=== PATIENT | male | born 1955 | race Two or more races ===

== ENCOUNTER → 2016-05-05 | Outpatient (CLI) | payer MEDICARE, OTHER ==
[2016-05-05 13:38] LABS: Blood Urea Nitrogen 19 mg/dL (9-20); Non-African American GFR(MDRD) >60 (>60 ml/min/1.73 sqM)
--- NOTE | 2016-05-05 14:33 | MR ---
EXAMINATION TYPE: MR lumbar spine wo/w con DATE OF EXAM: 05/05/2016 2:09 PM COMPARISON: MRI lumbar spine January 31, 2012. CT lumbar spine December 27, 2015 HISTORY: Low back pain, prior surgeries TECHNIQUE: Multiplanar, multisequence images of the lumbar spine is performed without and with IV contrast, util izing 15 mL intravenous MultiHance FINDINGS: Exam is suboptimal as is significantly degraded by patient motion. Sagittal images of the l umbar spine show vertebral body heights and alignment to remain satisfactory. Multilevel disc desicca tion and disc space narrowing is present fairly moderate to advanced throughout the lumbar spine with relative sparing or only moderate joint space loss L3-L4 level redemonstrated. No large posterior d isc herniations are seen on sagittal images. There is evidence of prior surgery with scar tissue and posterior spinous process resection the mid to lower lumbar spine redemonstrated. The conus medullari s is normal in position and signal ending at inferior L1 vertebral body level. The bone marrow signa l intensity is overall heterogeneous in appearance. Some scattered small Schmorl nodes are redemonstr ated. No suspicious postcontrast enhancement is seen. Axial images at T12-L1 level redemonstrated mild to moderate facet degenerative changes and ligamentu m flavum hypertrophy, spinal canal is preserved, bilateral neural foramina are patent. Axial images at L1-L2 level show spinous process resection. There is mild facet arthropathy and spino us process hypertrophy. Spinal canal is preserved and bilateral neural foramina are patent. Axial images at L2-L3 level show bilateral laminectomy defects and spinous process resection. There i s moderate facet arthropathy bilaterally. Spinal canal is preserved. Bilateral neural foramina are pa tent. Axial images at L3-L4 level show bilateral laminectomy defects and spinous process resection. There i s moderate to severe bilateral facet arthropathy. Some enhancing scar tissue is present. Spinal canal is fairly well preserved. Bilateral neural foramina are felt patent. Axial images at the L4-L5 level show moderate facet arthropathy bilaterally. There is bilateral lewis ectomy defects and spinous process resection. Some enhancing scar tissue seen but spinal canal is maisha ssly preserved. Bilateral neural foramina particularly on the right are likely narrowed seen best sag ittal image 10 without significant change from prior study. Axial images at L5-S1 level show bilateral laminectomy defects and spinous process resection. There i s moderate facet arthropathy present bilaterally. There is broad-based disc protrusion. Spinal canal is fairly well preserved. Bilateral neural foraminal narrowing is likely present. IMPRESSION: Suboptimal study with significant motion degradation. There is extensive postsurgical ch keila in the posterior mid to lower lumbar spine. Alignment is satisfactory and stable. Some multileve l degenerative changes are seen as detailed above. Most prominent findings are redemonstrated in the lower lumbar spine.
== END | disposition home or self-care (01) ==
LOC: RADMRIMAIN 12:27
PROVIDERS: ATTEND Psychiatry & Neurology Neurology
DX: M47.816 Spondylosis without myelopathy or radiculopathy, lumbar region (principal); M47.815 Spondylosis without myelopathy or radiculopathy, thoracolumbar region; Z98.890 Other specified postprocedural states
CPT/HCPCS: 82565; 84520; 72158; A9577

== ENCOUNTER → 2017-01-17 | Outpatient (CLI) | payer MEDICARE, OTHER ==
--- NOTE | 2017-01-17 08:03 | MR ---
EXAMINATION TYPE: MR thoracic spine wo miriam , DATE OF EXAM ORDERED: 01/17/2017 HISTORY: M48.04 Spinal stenosis, thoracic region. COMPARISON: None. FINDINGS: Paraspinal soft tissues are normal. Vertebral body height and alignment are maintained. Cord signal is normal. There is disc space loss from T5-6 through T8-9. There is mild hypertrophic spondylosis anteriorly. T here is mild spondylosis deformans. There is a right paracentral disc displacement at T3-4 deforming the thecal sac without cord contact. There is a diffuse disc displacement at T10-11 there is no definite discal protrusion. There is mild , diffuse intervertebral foraminal narrowing. This is likely congenital. There is facet arthropathy p resent at the T12-L1 level. IMPRESSION: 1. DEGENERATIVE DISC DISEASE EXTENDING FROM T5-6 THROUGH T8-9. 2. MILD, DIFFUSE HYPERTROPHIC SPONDYLOSIS AND SPONDYLOSIS DEFORMANS. 3. MILD, RIGHT PARACENTRAL DISC DISPLACEMENT T10-11. 4. NO DEFINITE DISCAL PROTRUSION OR SPINAL STENOSIS. 3. DIFFUSE, CONGENITAL INTERVERTEBRAL FORAMINAL NARROWING.
== END | disposition home or self-care (01) ==
LOC: RADMRIMAIN 06:56
PROVIDERS: ATTEND Physician Assistant Medical
DX: M99.72 Connective tissue and disc stenosis of intervertebral foramina of thoracic region (principal); M51.24 Other intervertebral disc displacement, thoracic region; M51.34 Other intervertebral disc degeneration, thoracic region; M47.814 Spondylosis without myelopathy or radiculopathy, thoracic region
CPT/HCPCS: 72146

== ENCOUNTER → 2017-02-03 | Outpatient (CLI) | payer MEDICARE, OTHER ==
--- NOTE | 2017-02-03 15:32 | US ---
EXAMINATION TYPE: US carotid duplex BILAT DATE OF EXAM: 02/03/2017 COMPARISON: NONE CLINICAL HISTORY: 61-year-old male [id number] Syncope. TECHNIQUE: Carotid duplex ultrasound examination. Indirect Doppler criteria was utilized. FINDINGS: Worley scale images show mild atherosclerotic changes at the right greater than left bifurcations. EXAM MEASUREMENTS: RIGHT: Peak Systolic Velocity (PSV) cm/sec ----- Right CCA: 64.9 ----- Right ICA: 69.3 ----- Right ECA: 76.8 ICA/CCA ratio: 1.1 RIGHT: End Diastole cm/sec ----- Right CCA: 25.9 ----- Right ICA: 29.1 ----- Right ECA: 76.5 LEFT: Peak Systolic Velocity (PSV) cm/sec ----- Left CCA: 63.3 ----- Left ICA: 66.0 ----- Left ECA: 86.2 ICA/CCA ratio: 1.0 LEFT: End Diastole cm/sec ----- Left CCA: 20.6 ----- Left ICA: 21.5 ----- Left ECA: 0.0 VERTEBRALS (direction of flow): Right Vertebral: Antegrade Left Vertebral: Antegrade Rhythm: Normal IMPRESSION: No hemodynamically significant stenosis appreciated in either internal carotid artery. Criteria for Assigning % of Stenosis / Diameter reduction (Estimation based on the indirect measurements of the internal carotid artery velocities (ICA PSV). 1. Normal (no stenosis)=ICA PSV < 125 cm/s: ratio < 2.0: ICA EDV<40 cm/s. 2. Less than 50% stenosis=ICA PSV < 125 cm/s: ratio < 2.0: ICA EDV<40 cm/s. 3. 50 to 69% stenosis=ICA PSV of 125 to 230 cm/s: ration 2.0 ? 4.0: ICA EDV 40-100 cm/s. 4. Greater than 70% stenosis to near occlusion= ICA PSV > 230 cm/s: ratio > 4.0: ICA EDV > 100 cm/s. 5. Near occlusion= ICA PSV velocities may be low or undetectable: variable ratio and ICA EDV. 6. Total occlusion=unable to detect flow.
== END | disposition home or self-care (01) ==
LOC: RADUSWWP 13:02
PROVIDERS: ATTEND Internal Medicine
DX: R42 Dizziness and giddiness (principal); I25.10 Atherosclerotic heart disease of native coronary artery without angina pectoris
CPT/HCPCS: 93880

== ENCOUNTER → 2017-08-15 | Outpatient (CLI) | payer MEDICARE, OTHER ==
[2017-08-15 12:36] LABS: Blood Urea Nitrogen 16 mg/dL (9-20)
--- NOTE | 2017-08-15 13:25 | XR ---
Thoracic spine HISTORY: Back pain 3 views of the thoracic spine correlated to thoracic MRI dated 01/17/2017. Sclerotic density is present at the approximate T5 and T6 vertebral bodies, signal changes are presen t at this level on prior MRI. Multilevel spondylosis is present. Endplate deformities are again noted at these levels. There is a mild spinal curvature. IMPRESSION: Thoracic spondylosis. Sclerotic density at the midthoracic spine is indeterminate, consid er follow-up thoracic MRI, correlate to exclude infection. A Yellow level critical message alert has been initiated for Dexter Ji via the [email or web address] Critical Results System on 08/15/2017 1:22 PM. This message alert has been sent to Dexter Ji via the preferences provided by the clinician for the receipt of Radiology Critical Findings. Message ID [id number].
--- NOTE | 2017-08-15 13:42 | XR ---
EXAMINATION TYPE: XR chest 2V DATE OF EXAM: 08/15/2017 COMPARISON: Prior chest 06/21/2015 HISTORY: Hypertension TECHNIQUE: Frontal and lateral views of the chest are obtained. FINDINGS: There is no focal air space opacity, pleural effusion, or pneumothorax seen. The cardiac silhouette size is within normal limits. Thoracic spine shows a stable appearance. There is multileve l spondylosis, see dictated report thoracic spine same date. IMPRESSION: No acute cardiopulmonary process. Some sclerotic density present in the midthoracic spin e. Consider MRI.
--- NOTE | 2017-08-15 18:20 | MR ---
EXAMINATION TYPE: MR lumbar spine wo con DATE OF EXAM: 08/15/2017 COMPARISON: Previous lumbar MRI 05/05/2016 HISTORY: Previous surgery, low back pain Gadavist 7.5 TECHNIQUE: Multiplanar, multisequence images of the lumbar spine were acquired. Exam was aborted due to patient' s inability to cooperate with completion of the exam. Sagittal images obtained show similar findings with multilevel spondylosis, loss of disc height and s ignal at the intervertebral levels with endplate discogenic marrow signal change, multilevel vacuum p henomenon and Schmorl's node formation at the endplates. The conus is normal and stable. Foraminal en croachment again noted and stable. No sizable disc herniation on the sagittal images. Multilevel face t arthropathy changes are present. Lumbar segments are intact. No paraspinal masses are identified. Conus medullaris has a normal appe arance. Postop changes again noted posteriorly, multilevel laminectomies. IMPRESSION: Suspect the findings are stable compared to prior exam although only sagittal images performed. Hyper trophic facet arthropathy, multilevel foraminal encroachment. No sizable disc herniation or central c anal stenosis is evident.
== END | disposition home or self-care (01) ==
LOC: RADMRIMAIN 11:54
PROVIDERS: ATTEND Physical Medicine & Rehabilitation
DX: M47.814 Spondylosis without myelopathy or radiculopathy, thoracic region (principal); M46.86 Other specified inflammatory spondylopathies, lumbar region; R93.7 Abnormal findings on diagnostic imaging of other parts of musculoskeletal system; I10 Essential (primary) hypertension; Z78.9 Other specified health status
CPT/HCPCS: 71046; 72072; 72148; 82565; 84520

== ENCOUNTER 2017-10-03 09:00 | Inpatient (IN) | payer MEDICARE, OTHER ==
--- NOTE | 2017-10-03 09:16 | ED ---
General Adult HPI - General Source: patient, RN notes reviewed Mode of arrival: wheelchair Limitations: no limitations <Serge Mares - Last Filed: 10/03/17 11:25> <Dionicio Barker - Last Filed: 10/03/17 12:57> - General Chief complaint: Skin/Abscess/Foreign Body Stated complaint: Abscess Time Seen by Provider: 10/03/17 09:07 - History of Present Illness Initial comments: This is a 62-year-old male presents emergency Department chief complaint right sided scrotal abscess. Patient states it started 1 week ago and has progressively getting worse and more painful. Patient states that he's had prior abscesses and has axilla and groin region but never of his scrotum. Patient states that it's come so unbearable that he cannot sit. Patient states that his been no drainage denies any dysuria hematuria. Patient denies any fever, chills, abdominal pain. (Serge Mares) - Related Data Home Medications Medication Instructions Recorded Confirmed oxyCODONE ER [OxyCONTIN] 80 mg PO BID@03/26/14 10/03/17 Lisinopril-Hctz 20-25 mg 1 tab PO DAILY 03/20/15 10/03/17 [Zestoretic 20-25] glipiZIDE [Glipizide] 5 mg PO BID 03/20/15 10/03/17 Atorvastatin [Lipitor] 40 mg PO DAILY 10/03/17 10/03/17 DULoxetine HCL [Cymbalta] 30 mg PO DAILY 10/03/17 10/03/17 Ergocalciferol (Vitamin D2) 50,000 unit PO Q7D 10/03/17 10/03/17 [Vitamin D2] Mupirocin 2% Oint [Bactroban 2% 1 applic TOPICAL BID 10/03/17 10/03/17 Oint] Sulfamethox-Tmp 800-160Mg [Bactrim 1 tab PO BID 10/03/17 10/03/17 DS 800-160 mg] cloNIDine HCL [Catapres] 0.1 mg PO BID 10/03/17 10/03/17 oxyCODONE HCL 40 mg PO HS@0200 10/03/17 10/03/17 Previous Rx's Medication Instructions Recorded Aspirin EC [Ecotrin Low Dose] 81 mg PO DAILY #1 tablet. 04/04/14 amLODIPine [Norvasc] 10 mg PO DAILY #30 tab 04/04/14 metFORMIN HCL [Glucophage] 500 mg PO BID #60 tab 04/05/14 Metoprolol Tartrate [Lopressor] 50 mg PO BID #60 tab 03/21/15 Allergies Allergy/AdvReac Type Severity Reaction Status Date / Time No Known Allergies Allergy Verified 10/03/17 11:34 Review of Systems ROS Other: All systems not noted in ROS Statement are negative. <Serge Mares - Last Filed: 10/03/17 11:25> ROS Other: All systems not noted in ROS Statement are negative. <Dionicio Barker - Last Filed: 10/03/17 12:57> ROS Statement: Those systems with pertinent positive or pertinent negative responses have been documented in the HPI. 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 CARDIAC STENTS History of Any Multi-Drug Resistant Organisms: None Reported Past Surgical History: Back Surgery, Heart Catheterization With Stent Additional Past Surgical History / Comment(s): ankle surgery-pt believes it was his R ankle. pt states he has a total of 5 stents Past Anesthesia/Blood Transfusion Reactions: No Reported Reaction Additional Past Anesthesia/Blood Transfusion Reaction / Comment(s): recieved blood after severe nose bleed, needed to be cauterized after recieving too much aspirin. Date of Last Stent Placement:: 02/2015 Past Psychological History: No Psychological Hx Reported Smoking Status: Former smoker Past Alcohol Use History: None Reported Past Drug Use History: Marijuana - Past Family History Sister(s) Family Medical History: Coronary Artery Disease (CAD), Hypertension Father Family Medical History: Coronary Artery Disease (CAD), Diabetes Mellitus, Deep Vein Thrombosis (DVT), Hypertension Additional Family Medical History / Comment(s): Father at age 58yrs. He of blood clot from leg injury that went to his heart. <Serge Mares - Last Filed: 10/03/17 11:25> General Exam Limitations: no limitations General appearance: alert, in no apparent distress Head exam: Present: atraumatic, normocephalic, normal inspection Neck exam: Present: normal inspection. Absent: tenderness, meningismus, lymphadenopathy Respiratory exam: Present: normal lung sounds bilaterally. Absent: respiratory distress, wheezes, rales, rhonchi, stridor Cardiovascular Exam: Present: regular rate, normal rhythm, normal heart sounds. Absent: systolic murmur, diastolic murmur, rubs, gallop, clicks GI/Abdominal exam: Present: soft, normal bowel sounds. Absent: distended, tenderness, guarding, rebound, rigid exam: Present: testicular tenderness (Severe right-sided), scrotal swelling. Absent: normal inspection (Very large right-sided scrotal abscess) Skin exam: Present: warm, dry, intact, normal color. Absent: rash <Serge Mares - Last Filed: 10/03/17 11:25> Vital Signs 10/03/17 10/03/17 10/03/17 09:03 10:32 11:15 Temperature 98.5 F 98.9 F 99.0 F Pulse Rate 71 66 68 Respiratory 16 16 20 Rate Blood Pressure 117/72 98/68 100/58 O2 Sat by Pulse 99 96 100 Oximetry Medical Decision Making - Lab Data Result diagrams: 10/03/17 09:28 10/03/17 09:28 <Serge Mares - Last Filed: 10/03/17 11:25> - Lab Data Result diagrams: 10/03/17 09:28 10/03/17 09:28 <Dionicio Barker - Last Filed: 10/03/17 12:57> - Medical Decision Making 62-year-old male with right-sided scrotal swelling for the past one week. On exam patient has induration, and fluctuant throughout the right hemiscrotum. There is no induration or erythema in the perineum. Left hemiscrotum is normal , with no testicular tenderness. Ultrasound is obtained, shows large heterogeneous mass concerning for abscess, there is concern for decreased blood flow in the right testicle. This is discussed with urology, Dr. Stanley, he is able to evaluate the patient emergency department and drainage significant amount of purulence from the scrotum. (Dionicio Barker) - Lab Data Lab Results 10/03/17 10/03/17 10/03/17 Range/Units 09:28 09:28 09:28 WBC 13.6 H (3.8-10.6) k/uL RBC 4.01 L (4.30-5.90) m/uL Hgb 12.4 L (13.0-17.5) gm/dL Hct 36.9 L (39.0-53.0) % MCV 92.1 (80.0-100.0) fL MCH 30.9 (25.0-35.0) pg MCHC 33.6 (31.0-37.0) g/dL RDW 13.3 (11.5-15.5) % Plt Count 396 (150-450) k/uL Neutrophils % 83 % Lymphocytes % 8 % Monocytes % 7 % Eosinophils % 1 % Basophils % 0 % Neutrophils # 11.3 H (1.3-7.7) k/uL Lymphocytes # 1.1 (1.0-4.8) k/uL Monocytes # 0.9 (0-1.0) k/uL Eosinophils # 0.2 (0-0.7) k/uL Basophils # 0.0 (0-0.2) k/uL PT (9.0-12.0) sec INR (<1.2) APTT (22.0-30.0) sec Sodium 137 (137-145) mmol/L Potassium 3.3 L (3.5-5.1) mmol/L Chloride 95 L (98-107) mmol/L Carbon Dioxide 26 (22-30) mmol/L Anion Gap 16 mmol/L BUN 14 (9-20) mg/dL Creatinine 0.97 (0.66-1.25) mg/dL Est GFR (CKD-EPI)AfAm >90 (>60 ml/min/1.73 sqM) Est GFR (CKD-EPI)NonAf 85 (>60 ml/min/1.73 sqM) Glucose 231 H (74-99) mg/dL Lactic Ac Sepsis Rflx Plasma Lactic Acid Chinedu 3.2 H* (0.7-2.0) mmol/L Calcium 9.2 (8.4-10.2) mg/dL Total Bilirubin 0.3 (0.2-1.3) mg/dL AST 14 L (17-59) U/L ALT 28 (21-72) U/L Alkaline Phosphatase 91 (38-126) U/L Total Protein 5.8 L (6.3-8.2) g/dL Albumin 3.3 L (3.5-5.0) g/dL 10/03/17 10/03/17 Range/Units 09:28 09:49 WBC (3.8-10.6) k/uL RBC (4.30-5.90) m/uL Hgb (13.0-17.5) gm/dL Hct (39.0-53.0) % MCV (80.0-100.0) fL MCH (25.0-35.0) pg MCHC (31.0-37.0) g/dL RDW (11.5-15.5) % Plt Count (150-450) k/uL Neutrophils % % Lymphocytes % % Monocytes % % Eosinophils % % Basophils % % Neutrophils # (1.3-7.7) k/uL Lymphocytes # (1.0-4.8) k/uL Monocytes # (0-1.0) k/uL Eosinophils # (0-0.7) k/uL Basophils # (0-0.2) k/uL PT 9.4 (9.0-12.0) sec INR 0.9 (<1.2) APTT 25.3 (22.0-30.0) sec Sodium (137-145) mmol/L Potassium (3.5-5.1) mmol/L Chloride (98-107) mmol/L Carbon Dioxide (22-30) mmol/L Anion Gap mmol/L BUN (9-20) mg/dL Creatinine (0.66-1.25) mg/dL Est GFR (CKD-EPI)AfAm (>60 ml/min/1.73 sqM) Est GFR (CKD-EPI)NonAf (>60 ml/min/1.73 sqM) Glucose (74-99) mg/dL Lactic Ac Sepsis Rflx Y Plasma Lactic Acid Chinedu (0.7-2.0) mmol/L Calcium (8.4-10.2) mg/dL Total Bilirubin (0.2-1.3) mg/dL AST (17-59) U/L ALT (21-72) U/L Alkaline Phosphatase (38-126) U/L Total Protein (6.3-8.2) g/dL Albumin (3.5-5.0) g/dL Disposition <Serge Mares - Last Filed: 10/03/17 11:25> <Dionicio Barker - Last Filed: 10/03/17 12:57> Clinical Impression: Testicular mass, Cellulitis, scrotum, Lactic acidosis Disposition: ADMITTED IP TO THIS HOSP Condition: Stable
[2017-10-03] MEDS: MORPHINE SULFATE 2 MG/ML SYRINGE IVP STA ×2 (09:26→09:42)
[2017-10-03] MEDS: ONDANSETRON 4 MG/2 ML VIAL IVP STA ×2 (09:26→09:42)
[2017-10-03 09:40] LABS: Basophils % (A) 0 %; Eosinophils # (A) 0.2 k/uL (0-0.7); Eosinophils % (A) 1 %; HCT 36.9 % (39.0-53.0); HGB 12.4 gm/dL (13.0-17.5); Lymphocytes # (A) 1.1 k/uL (1.0-4.8); Lymphocytes % (A) 8 %; MCH 30.9 pg (25.0-35.0); MCHC 33.6 g/dL (31.0-37.0); MCV 92.1 fL (80.0-100.0); Mean Platelet Volume 6.3; Monocytes # (A) 0.9 k/uL (0-1.0); Monocytes % (A) 7 %; Neutrophils # (A) 11.3 k/uL (1.3-7.7); Neutrophils % (A) 83 %; Platelet Count 396 k/uL (150-450); RBC 4.01 m/uL (4.30-5.90); RDW 13.3 % (11.5-15.5); WBC 13.6 k/uL (3.8-10.6)
[2017-10-03 09:46] LABS: INR 0.9 (<1.2); Partial Thromboplastin Time 25.3 sec (22.0-30.0); Prothrombin Time 9.4 sec (9.0-12.0)
[2017-10-03 09:47] LABS: ALT 28 U/L (21-72); AST 14 U/L (17-59); Albumin 3.3 g/dL (3.5-5.0); Alkaline Phosphatase 91 U/L (38-126); Anion Gap 16 mmol/L; Blood Urea Nitrogen 14 mg/dL (9-20); Calcium 9.2 mg/dL (8.4-10.2); Carbon Dioxide 26 mmol/L (22-30); Chloride 95 mmol/L (98-107); Glucose 231 mg/dL (74-99); Potassium 3.3 mmol/L (3.5-5.1); Sodium 137 mmol/L (137-145); Total Bilirubin 0.3 mg/dL (0.2-1.3); Total Protein 5.8 g/dL (6.3-8.2)
[2017-10-03] MEDS ORDERED: SODIUM CHLORIDE 0.9% 2,000 ML IV ONE (09:49)
--- NOTE | 2017-10-03 09:50 | XR ---
EXAMINATION TYPE: XR pelvis AP view , ONE VIEW DATE OF EXAM ORDERED: 10/03/2017 HISTORY: Pain. COMPARISON: None. FINDINGS: There has been a previous laminectomy in the lower lumbar spine. There are mild degenerati ve changes in both hips. No fracture, dislocation or other acute osseous lesion is seen. IMPRESSION: 1. NO ACUTE OSSEOUS LESION. 2. POSTSURGICAL CHANGE. 3. DEGENERATIVE CHANGE.
[2017-10-03] MEDS ORDERED: PIPERACILLIN-TAZOBACTAM 3.375 GM in DEXTROSE/WATER 1 50ML.BAG IVPB STA (10:20)
[2017-10-03] MEDS ORDERED: VANCOMYCIN IV PER PHARMACY 1 EACH MISC MISCELLANE PRN (10:21)
[2017-10-03] MEDS ORDERED: VANCOMYCIN 1,500 MG in SODIUM CHLORIDE 0.9% 250 ML IVPB STA (10:26)
--- NOTE | 2017-10-03 11:09 | XR ---
EXAMINATION TYPE: XR pelvis AP view , ONE VIEW DATE OF EXAM ORDERED: 10/03/2017 HISTORY: Pain. COMPARISON: Previous study of earlier today. FINDINGS: The entire pelvis is not included on this study. This was largely 2 images of the scrotum. No scrotal abnormality is seen. There are mild degenerative changes present within the hip joints bi laterally. IMPRESSION: 1. NO ACUTE OSSEOUS LESION. 2. MILD DEGENERATIVE CHANGE. 3. NO DEFINITE SCROTAL LESION.
--- NOTE | 2017-10-03 11:11 | US ---
EXAMINATION TYPE: US scrotum with doppler. Grayscale and color Doppler Duplex imaging performed of chantelle ott scrotum. DATE OF EXAM: 10/03/2017 COMPARISON: NONE CLINICAL HISTORY: Pain. Patient here for what he believes is a scrotal abscess. He had no injury to testicle. He claims it titus s been painful for about a week but has gotten much worse today. EXAM MEASUREMENTS: TESTICLES: At Right is a heterogeneous mass measuring 6.4 x 3.4 x 3.7cm with no vascularity. Originally frida mora thought this was the right testicle and was labeled as such. Technologist did a 2nd look and saw a midline structure that may be the right testicle measuring 5.3 x 3.4 x 1.6cm that does show blood flow. Because of the large size of right mass in is difficult to ascertain whether the midline struct ure is the right testicle or an extratesticular mass. Technically difficult study. Left Testicle: 4.3 x 2.0 x 2.2 cm EPIDIDYMIS HEAD: Right Epididymis: not visualized Left Epididymis: 0.5 cm Doppler performed to assess for testicular vascularity; good left color flow and waveforms are seen. There is no evidence of testicular torsion on left. Presence of hydroceles: no Presence of varicoceles: no No definite normal right testicle is identified. IMPRESSION: THIS MAY REPRESENT A LARGE TESTICULAR MASS. IT IS AVASCULAR HOWEVER AND TESTICULAR TORSION IS NOT EXC LUDED. UROLOGIC CONSULT IS SUGGESTED.
[2017-10-03] MEDS ORDERED: NALOXONE 0.4 MG/ML 1 ML VIAL IV PRN (11:25)
[2017-10-03] MEDS ORDERED: LIDOCAINE 1%-EPI 1:100,000 30 ML VIAL SQ STA (12:37)
--- NOTE | 2017-10-03 13:03 | P.GSCN ---
History of Present Illness Consult date: 10/03/17 Reason for Consult: Right scrotal mass-possible abscess History of present illness: The patient is a 62-year-old male who says he first noted a "pimple" on the right scrotal skin approximately 1 week ago. He said he initially tried to squeeze it to drain it but nothing came out. He says he did not think that the right testicle felt abnormal at that time. Aproximally 3 days ago he says he developed increasing pain and swelling involving the right scrotum. The pain and swelling continued and he presented to the emergency room for evaluation. He denied any fever or chills at home. He has diabetes and says that his diabetes has been under control. He denied any dysuria or change in his normal voiding pattern. He denied any previous history of urinary tract infection however a urine culture from 09/12 grew E. coli. The patient was afebrile on presentation to the emergency room and his heart rate was 71. White blood count was 13,600. Bicarb was 26, glucose was 221 and lactic acid was 3.2. Scrotal ultrasound showed a heterogeneous mass in the right scrotum with no blood flow. Testicle and blood flow to it appeared normal. The assistant analyst was unable to definitely identify the right testicle however the patient apparently was in a great deal of pain during the exam and the scrotal swelling limited the ultrasound. Review of Systems - Constitutional Reports chronic pain, Denies chills, Denies fever - Cardiovascular Denies chest pain, Denies leg edema, Denies palpitations, Denies rapid heart beat, Denies shortness of breath - Respiratory Denies cough, Denies wheezing - Gastrointestinal Denies abdominal pain, Denies vomiting - Genitourinary Reports as per HPI Past Medical History Past Medical History: Coronary Artery Disease (CAD), Chest Pain / Angina, Diabetes Mellitus, Hyperlipidemia, Hypertension, Osteoarthritis (OA) Additional Past Medical History / Comment(s): Other HX: Chronic lower back pain and bilateral leg pain, 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 Coronary angioplasty with stents 02/2015 History of Any Multi-Drug Resistant Organisms: None Reported Past Surgical History: Back Surgery, Heart Catheterization With Stent Additional Past Surgical History / Comment(s): ankle surgery-pt believes it was his R ankle. pt states he has a total of 5 stents Past Anesthesia/Blood Transfusion Reactions: No Reported Reaction Additional Past Anesthesia/Blood Transfusion Reaction / Comm: recieved blood after severe nose bleed, needed to be cauterized after recieving too much aspirin. Date of Last Stent Placement:: 02/2015 Past Psychological History: No Psychological Hx Reported Smoking Status: Former smoker (Smoked over 2 packs per day for 40 years prior to quitting in 02/2015) Past Alcohol Use History: None Reported Past Drug Use History: Marijuana - Past Family History Sister(s) Family Medical History: Coronary Artery Disease (CAD), Hypertension Father Family Medical History: Coronary Artery Disease (CAD), Diabetes Mellitus, Deep Vein Thrombosis (DVT), Hypertension Additional Family Medical History / Comment(s): Father at age 58yrs. He of blood clot from leg injury that went to his heart. Medications and Allergies Home Medications Medication Instructions Recorded Confirmed Type oxyCODONE ER [OxyCONTIN] 80 mg PO BID@06,14 03/26/14 10/03/17 History Aspirin EC [Ecotrin Low Dose] 81 mg PO DAILY #1 tablet. 04/04/14 10/03/17 Rx amLODIPine [Norvasc] 10 mg PO DAILY #30 tab 04/04/14 10/03/17 Rx metFORMIN HCL [Glucophage] 500 mg PO BID #60 tab 04/05/14 10/03/17 Rx Lisinopril-Hctz 20-25 mg 1 tab PO DAILY 03/20/15 10/03/17 History [Zestoretic 20-25] glipiZIDE [Glipizide] 5 mg PO BID 03/20/15 10/03/17 History Metoprolol Tartrate [Lopressor] 50 mg PO BID #60 tab 03/21/15 10/03/17 Rx Atorvastatin [Lipitor] 40 mg PO DAILY 10/03/17 10/03/17 History DULoxetine HCL [Cymbalta] 30 mg PO DAILY 10/03/17 10/03/17 History Ergocalciferol (Vitamin D2) 50,000 unit PO Q7D 10/03/17 10/03/17 History [Vitamin D2] Mupirocin 2% Oint [Bactroban 2% 1 applic TOPICAL BID 10/03/17 10/03/17 History Oint] Sulfamethox-Tmp 800-160Mg [Bactrim 1 tab PO BID 10/03/17 10/03/17 History DS 800-160 mg] cloNIDine HCL [Catapres] 0.1 mg PO BID 10/03/17 10/03/17 History oxyCODONE HCL 40 mg PO HS@0200 10/03/17 10/03/17 History Allergies Allergy/AdvReac Type Severity Reaction Status Date / Time No Known Allergies Allergy Verified 10/03/17 11:34 Surgical - Exam Vital Signs Temp Pulse Resp BP Pulse Ox 98.5 F 71 16 117/72 99 10/03/17 09:03 10/03/17 09:03 10/03/17 09:03 10/03/17 09:03 10/03/17 09:03 - General well developed, well nourished, moderate distress - ENT no hearing loss, no congestion - Respiratory normal expansion, normal respiratory effort - Abdomen Abdomen: soft, non tender, no organomegaly - Genitourinary normal penis with no external lesions, other (The left testicle and epididymis are normal. The right scrotum was swollen to approximately 7 cm in greatest diameter. There was fluctuance present in the right anterior scrotum consistent with an underlying abscess. No necrotic skin was present overlying the area of swelling. The right testicle was not palpable. There is no evidence of inguinal hernia.) Results - Labs 10/03/17 09:28 10/03/17 09:28 Abnormal Lab Results - Last 24 Hours (Table) 10/03/17 10/03/17 10/03/17 Range/Units 09:28 09:28 09:28 WBC 13.6 H (3.8-10.6) k/uL RBC 4.01 L (4.30-5.90) m/uL Hgb 12.4 L (13.0-17.5) gm/dL Hct 36.9 L (39.0-53.0) % Neutrophils # 11.3 H (1.3-7.7) k/uL Potassium 3.3 L (3.5-5.1) mmol/L Chloride 95 L (98-107) mmol/L Glucose 231 H (74-99) mg/dL Plasma Lactic Acid Chinedu 3.2 H* (0.7-2.0) mmol/L AST 14 L (17-59) U/L Total Protein 5.8 L (6.3-8.2) g/dL Albumin 3.3 L (3.5-5.0) g/dL Diabetes panel 10/03/17 Range/Units 09:28 Sodium 137 (137-145) mmol/L Potassium 3.3 L (3.5-5.1) mmol/L Chloride 95 L (98-107) mmol/L Carbon Dioxide 26 (22-30) mmol/L BUN 14 (9-20) mg/dL Creatinine 0.97 (0.66-1.25) mg/dL Glucose 231 H (74-99) mg/dL Calcium 9.2 (8.4-10.2) mg/dL AST 14 L (17-59) U/L ALT 28 (21-72) U/L Alkaline Phosphatase 91 (38-126) U/L Total Protein 5.8 L (6.3-8.2) g/dL Albumin 3.3 L (3.5-5.0) g/dL Calcium panel 10/03/17 Range/Units 09:28 Calcium 9.2 (8.4-10.2) mg/dL Albumin 3.3 L (3.5-5.0) g/dL Pituitary panel 10/03/17 Range/Units 09:28 Sodium 137 (137-145) mmol/L Potassium 3.3 L (3.5-5.1) mmol/L Chloride 95 L (98-107) mmol/L Carbon Dioxide 26 (22-30) mmol/L BUN 14 (9-20) mg/dL Creatinine 0.97 (0.66-1.25) mg/dL Glucose 231 H (74-99) mg/dL Calcium 9.2 (8.4-10.2) mg/dL Adrenal panel 10/03/17 Range/Units 09:28 Sodium 137 (137-145) mmol/L Potassium 3.3 L (3.5-5.1) mmol/L Chloride 95 L (98-107) mmol/L Carbon Dioxide 26 (22-30) mmol/L BUN 14 (9-20) mg/dL Creatinine 0.97 (0.66-1.25) mg/dL Glucose 231 H (74-99) mg/dL Calcium 9.2 (8.4-10.2) mg/dL Total Bilirubin 0.3 (0.2-1.3) mg/dL AST 14 L (17-59) U/L ALT 28 (21-72) U/L Alkaline Phosphatase 91 (38-126) U/L Total Protein 5.8 L (6.3-8.2) g/dL Albumin 3.3 L (3.5-5.0) g/dL Assessment and Plan Assessment: The patient appears to have a right scrotal abscess which most likely originated in the skin however epididymoorchitis cannot be excluded based on the ultrasound. The patient denied any right testicular pain or swelling earlier in the week however. The abscess will be drained and the patient has been started on vancomycin and Zosyn. He will be admitted to his lactic acidosis and early sepsis complicated by diabetes mellitus.
--- NOTE | 2017-10-03 13:07 | P.OP ---
Date of Procedure: 10/03/17 Preoperative Diagnosis: Scrotal abscess Postoperative Diagnosis: Scrotal abscess Procedure(s) Performed: Incision and drainage of scrotal abscess Anesthesia: local (1% lidocaine with epinephrine ) Surgeon: Gonsalo Stanley Estimated Blood Loss (ml): 5 Pathology: other (Wound culture) Condition: stable Disposition: floor Indications for Procedure: The patient is a 62-year-old male with a history of progressive swelling involving the right scrotum who appears to have a scrotal abscess measuring at least 5 or 6 cm in diameter. Incision and drainage is planned Description of Procedure: The patient was placed in the supine position in his emergency room bed. The scrotum was prepped with Betadine solution and draped in sterile fashion. 3 mL of 1% lidocaine with epinephrine was infiltrated into the right anterior skin overlying the scrotal abscess. A 2.5 cm skin incision was made and approximately 50 mL of grossly purulent, foul-smelling material with some old blood clot was drained. A sample of the fluid was sent for culture. The abscess cavity was irrigated with sterile water and then packed with one quarter inch iodoform gauze. A sterile dressing was then applied. The patient tolerated procedure well and will be admitted for further observation.
[2017-10-03 13:36] LABS: Appearance,Urine Clear (Clear); Bacteria,Urine Rare /hpf; Bilirubin,Urine Negative (Negative); Blood,Urine Negative (Negative); Color,Urine Yellow; Glucose,Urine (UA) 1+ (Negative); Ketones,Urine Negative (Negative); Leukocyte Esterase,Urine Small (Negative); Mucus,Urine Rare /hpf; Nitrite,Urine Negative (Negative); Protein,Urine Negative (Negative); Specific Gravity,Urine 1.008 (1.001-1.035); Squamous Epithelial Cell,Urine <1 /hpf (0-4); Urobilinogen,Urine <2.0 mg/dL (<2.0); WBC,Urine 14 /hpf (0-5)
[2017-10-03 15:05] LABS: Glucose,Whole Blood 212 mg/dL (75-99)
[2017-10-03] MEDS: INSULIN ASPART 100 UNIT/ML 1 ML 10 ML VIAL SQ SCH ×3 (15:11→21:20)
[2017-10-03 15:20] VITALS: BMI 26.6
[2017-10-03] MEDS: oxyCODONE ER 80 MG TAB.ER.12H PO SCH (15:23)
[2017-10-03] MEDS ORDERED: oxyCODONE-APAP 10-325MG 1 EACH TAB PO SCH (16:00)
[2017-10-03] MEDS ORDERED: POTASSIUM CHLORIDE ER 20 MEQ TAB.ER PO STA (16:08)
[2017-10-03 17:32] LABS: Glucose,Whole Blood 123 mg/dL (75-99)
[2017-10-03] MEDS: metFORMIN 500 MG TAB PO SCH (17:40)
[2017-10-03] MEDS: HEPARIN SODIUM,PORCINE 5,000 UNIT/ML 1 ML VIAL SQ SCH ×2 (17:40→23:14)
[2017-10-03] MEDS: PIPERACILLIN-TAZOBACTAM 3.375 GM in DEXTROSE/WATER 1 50ML.BAG IVPB SCH (18:31)
[2017-10-03 21:03] LABS: Glucose,Whole Blood 229 mg/dL (75-99)
[2017-10-03] MEDS: DIAZEPAM 5 MG TAB PO SCH (21:20)
[2017-10-03] MEDS: METOPROLOL TARTRATE 50 MG TAB PO SCH ×2 (21:20→23:05)
[2017-10-03] MEDS: cloNIDine HCL 0.1 MG TAB PO SCH (21:20)
[2017-10-03] MEDS: glipiZIDE 5 MG TAB PO SCH (21:20)
--- NOTE | 2017-10-03 21:30 | P.HPIM ---
History of Present Illness H&P Date: 10/03/17 Chief Complaint: Scrotal pain Patient is a 62-year-old male with a known history of chronic lower back pain and bilateral leg pain, coronary artery disease with history of stent placement , diabetes type 2 and hypertension and other multiple medical problems came to ER with complaints of groin pain and lateral told he also has right-sided scrotal swelling and pain. Patient has been having symptoms for the past 1 week and has seen his primary care physician and was started on oral antibiotics. Patient was told if the symptoms/pain gets worse to go to ER for further evaluation. Patient states that it's come so unbearable that he cannot sit. Patient states that his been no drainage denies any dysuria hematuria. Patient denies any fever, chills, abdominal pain. Scrotal ultrasound : represent a large testicular mass. It is avascular however testicular torsion is not excluded. Urologic consult is suggested. Patient was seen by urology and I&D of the abscess was done. Fluid culture was sent. Patient is currently on antibiotics in the form of vancomycin and Zosyn. Review of Systems Constitutional: Patient denies any fever or chills . No generalized weakness or weight loss. Abdomen: Patient denied nausea vomiting and diarrhea and abdominal pain. Cardiovascular: Patient denies any chest pain or short of breath no palpitations. Respiratory: patient denied any cough is from production. No shortness of breath Neurologic: Patient denied any numbness or tingling headache. Musculoskeletal: Patient denies any complaints of joint swelling or deformity. Skin: Negative Psychiatric: Negative Endocrine: No heat or cold intolerance. No recent weight gain. Genitourinary: Patient is complaining of groin pain and scrotal pain. No dysuria or nocturia. 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 CARDIAC STENTS History of Any Multi-Drug Resistant Organisms: None Reported Past Surgical History: Back Surgery, Heart Catheterization With Stent Additional Past Surgical History / Comment(s): ankle surgery-pt believes it was his R ankle. pt states he has a total of 5 stents Past Anesthesia/Blood Transfusion Reactions: No Reported Reaction Additional Past Anesthesia/Blood Transfusion Reaction / Comment(s): recieved blood after severe nose bleed, needed to be cauterized after recieving too much aspirin. Date of Last Stent Placement:: 02/2015 Past Psychological History: No Psychological Hx Reported Smoking Status: Former smoker Past Alcohol Use History: None Reported Past Drug Use History: Marijuana - Past Family History Sister(s) Family Medical History: Coronary Artery Disease (CAD), Hypertension Father Family Medical History: Coronary Artery Disease (CAD), Diabetes Mellitus, Deep Vein Thrombosis (DVT), Hypertension Additional Family Medical History / Comment(s): Father at age 58yrs. He of blood clot from leg injury that went to his heart. Medications and Allergies Home Medications Medication Instructions Recorded Confirmed Type oxyCODONE ER [OxyCONTIN] 80 mg PO BID@03/26/14 10/03/17 History Aspirin EC [Ecotrin Low Dose] 81 mg PO DAILY #1 tablet. 04/04/14 10/03/17 Rx amLODIPine [Norvasc] 10 mg PO DAILY #30 tab 04/04/14 10/03/17 Rx metFORMIN HCL [Glucophage] 500 mg PO BID #60 tab 04/05/14 10/03/17 Rx Lisinopril-Hctz 20-25 mg 1 tab PO DAILY 03/20/15 10/03/17 History [Zestoretic 20-25] glipiZIDE [Glipizide] 5 mg PO BID 03/20/15 10/03/17 History Metoprolol Tartrate [Lopressor] 50 mg PO BID #60 tab 03/21/15 10/03/17 Rx Atorvastatin [Lipitor] 40 mg PO DAILY 10/03/17 10/03/17 History DULoxetine HCL [Cymbalta] 30 mg PO DAILY 10/03/17 10/03/17 History Ergocalciferol (Vitamin D2) 50,000 unit PO Q7D 10/03/17 10/03/17 History [Vitamin D2] Mupirocin 2% Oint [Bactroban 2% 1 applic TOPICAL BID 10/03/17 10/03/17 History Oint] Sulfamethox-Tmp 800-160Mg [Bactrim 1 tab PO BID 10/03/17 10/03/17 History DS 800-160 mg] cloNIDine HCL [Catapres] 0.1 mg PO BID 10/03/17 10/03/17 History oxyCODONE HCL 40 mg PO HS@0200 10/03/17 10/03/17 History Allergies Allergy/AdvReac Type Severity Reaction Status Date / Time No Known Allergies Allergy Verified 10/03/17 11:34 Physical Exam Vitals: Vital Signs Temp Pulse Resp BP Pulse Ox 10/03/17 11:15 99.0 F 68 20 100/58 100 10/03/17 10:32 98.9 F 66 16 98/68 96 10/03/17 09:03 98.5 F 71 16 117/72 99 Intake and Output 10/02/17 10/03/17 10/03/17 22:59 06:59 14:59 Other: Weight 77.111 kg PHYSICAL EXAMINATION: Patient is lying in the bed comfortably, no acute distress, awake alert and oriented.. HEENT: Normocephalic. Neck is supple. Pupils reactive. Nostrils clear. Oral cavity is moist. Ears reveal no drainage. Neck reveals no JVD, carotid bruits, or thyromegaly. CHEST EXAMINATION: Trachea is central. Symmetrical expansion. Lung george clear to auscultation and percussion. CARDIAC: Normal S1, S2 with no gallops. No murmurs ABDOMEN: Soft. Bowel sounds normal. No organomegaly. No abdominal bruits. Right groin swelling and tenderness. Status post I&D. Extremities: reveal no edema. No clubbing or cyanosis Neurologically awake, alert, oriented x3 with well-coordinated movements. No focal deficits noted Skin: No rash or skin lesions. Psychiatric: Coperative. Nonsuicidal Musculoskeletal: No joint swelling or deformity. Normal range of motion. Results CBC & Chem 7: 10/03/17 09:28 10/03/17 09:28 Labs: Abnormal Lab Results - Last 24 Hours (Table) 10/03/17 10/03/17 10/03/17 Range/Units 09:28 09:28 09:28 WBC 13.6 H (3.8-10.6) k/uL RBC 4.01 L (4.30-5.90) m/uL Hgb 12.4 L (13.0-17.5) gm/dL Hct 36.9 L (39.0-53.0) % Neutrophils # 11.3 H (1.3-7.7) k/uL Potassium 3.3 L (3.5-5.1) mmol/L Chloride 95 L (98-107) mmol/L Glucose 231 H (74-99) mg/dL Plasma Lactic Acid Chinedu 3.2 H* (0.7-2.0) mmol/L AST 14 L (17-59) U/L Total Protein 5.8 L (6.3-8.2) g/dL Albumin 3.3 L (3.5-5.0) g/dL Thrombosis Risk Factor Assmnt - DVT/VTE Prophylaxis DVT/VTE Prophylaxis: Pharmacologic Prophylaxis ordered Assessment and Plan Assessment: Sepsis secondary to groin abscess status post I&D Lactic acidosis secondary to above. Resolved now. Failed outpatient antibiotic therapy Hyperglycemia with uncontrolled diabetes type 2. [id number] Coronary artery disease with history of 5 stents Hypokalemia Hypertension controlled Hyperlipidemia Osteoarthritis Chronic lower back pain and bilateral leg pain DVT prophylaxis Depression Previous history of smoking Plan: Patient will be continued on antibiotics in the form of vancomycin and Zosyn. Follow with fluid cultures. Continue with IV hydration and pain management. Insulin sliding scale and Accu-Cheks. Continue the home medications and further recommendations based on the clinical course. Time with Patient: Greater than 30
[2017-10-03] MEDS: VANCOMYCIN 1,500 MG in SODIUM CHLORIDE 0.9% 250 ML IVPB SCH (22:57)
[2017-10-04] MEDS ORDERED: OXYCODONE HCL 40 MG PO SCH (02:00)
[2017-10-04] MEDS: PIPERACILLIN-TAZOBACTAM 3.375 GM in DEXTROSE/WATER 1 50ML.BAG IVPB SCH ×3 (03:29→18:07)
[2017-10-04] MEDS: oxyCODONE ER 80 MG TAB.ER.12H PO SCH ×2 (06:16→13:34)
[2017-10-04 07:37] LABS: Glucose,Whole Blood 193 mg/dL (75-99)
[2017-10-04 07:44] LABS: Anion Gap 10 mmol/L; Blood Urea Nitrogen 13 mg/dL (9-20); Calcium 8.8 mg/dL (8.4-10.2); Carbon Dioxide 26 mmol/L (22-30); Chloride 102 mmol/L (98-107); Glucose 194 mg/dL (74-99); Potassium 3.8 mmol/L (3.5-5.1); Sodium 138 mmol/L (137-145)
[2017-10-04 07:52] LABS: HCT 34.9 % (39.0-53.0); HGB 11.6 gm/dL (13.0-17.5); MCH 30.8 pg (25.0-35.0); MCHC 33.2 g/dL (31.0-37.0); MCV 92.6 fL (80.0-100.0); Mean Platelet Volume 6.4; Platelet Count 383 k/uL (150-450); RBC 3.77 m/uL (4.30-5.90); RDW 13.5 % (11.5-15.5); WBC 8.2 k/uL (3.8-10.6)
[2017-10-04] MEDS: amLODIPine 10 MG TAB PO SCH (08:30)
[2017-10-04] MEDS: cloNIDine HCL 0.1 MG TAB PO SCH ×3 (08:30→22:21)
[2017-10-04] MEDS: glipiZIDE 5 MG TAB PO SCH ×2 (08:30→21:49)
[2017-10-04] MEDS: LISINOPRIL-HCTZ 20-25 MG 1 EACH TAB PO SCH (08:30)
[2017-10-04] MEDS: METOPROLOL TARTRATE 50 MG TAB PO SCH ×2 (08:30→21:49)
[2017-10-04] MEDS: DULoxetine HCL 30 MG CAPSULE.DR PO SCH (08:30)
[2017-10-04] MEDS: ASPIRIN 81 MG PO SCH (08:30)
[2017-10-04] MEDS: HEPARIN SODIUM,PORCINE 5,000 UNIT/ML 1 ML VIAL SQ SCH ×2 (08:30→15:33)
[2017-10-04] MEDS: ATORVASTATIN 40 MG TAB PO SCH (08:30)
[2017-10-04] MEDS: metFORMIN 500 MG TAB PO SCH ×2 (08:30→18:07)
[2017-10-04] MEDS: VANCOMYCIN 1,500 MG in SODIUM CHLORIDE 0.9% 250 ML IVPB SCH ×2 (08:31→22:29)
[2017-10-04] MEDS: INSULIN ASPART 100 UNIT/ML 1 ML 10 ML VIAL SQ SCH ×4 (08:39→22:28)
--- NOTE | 2017-10-04 11:02 | P.PN ---
Progress Note - Text Progress Note Date: 10/04/17 The patient is afebrile and says that he feels much better than yesterday. He continues to have mainly old blood with some slight purulence draining from the abscess cavity. There is no fluctuance present within the scrotum and the scrotal wall edema is decreased from yesterday. The skin appears viable over the abscess cavity. The patient's white blood count is decreased at 8200. Gram stain is showing gram-positive rods and cocci. The patient scrotal abscess will be irrigated periodically liters with normal saline. Hopefully he can be discharged tomorrow on an oral antibiotic.
[2017-10-04 12:38] LABS: Glucose,Whole Blood 193 mg/dL (75-99)
[2017-10-04 17:27] LABS: Glucose,Whole Blood 180 mg/dL (75-99)
[2017-10-04 20:50] LABS: Glucose,Whole Blood 241 mg/dL (75-99)
[2017-10-04] MEDS: DIAZEPAM 5 MG TAB PO SCH (22:28)
[2017-10-04 23:27] VITALS: RESP 18
[2017-10-05] MEDS: HEPARIN SODIUM,PORCINE 5,000 UNIT/ML 1 ML VIAL SQ SCH ×2 (02:43→08:58)
[2017-10-05] MEDS: PIPERACILLIN-TAZOBACTAM 3.375 GM in DEXTROSE/WATER 1 50ML.BAG IVPB SCH (03:49)
[2017-10-05] MEDS: oxyCODONE ER 80 MG TAB.ER.12H PO SCH (06:03)
[2017-10-05 06:10] VITALS: BP 114/62; PULSE 70; TEMP 97.4
[2017-10-05 07:20] LABS: Glucose,Whole Blood 218 mg/dL (75-99)
--- NOTE | 2017-10-05 07:45 | P.PN ---
Progress Note - Text Progress Note Date: 10/05/17 The patient remains afebrile and has minimal scrotal pain. The abscess cavity has stopped draining blood and only minimal purulence is discharged at the present. The degree of scrotal edema and induration continues to improve. The patient can be discharged today and I would suggest he be continued on Augmentin for an additional 5 or 6 days. He should have a visiting nurse irrigate his abscess cavity daily with saline and repacked with iodoform gauze. I would like to see him back in follow-up in 1 week.
[2017-10-05] MEDS ORDERED: VANCOMYCIN TROUGH DUE 1 EACH MISC MISCELLANE ONE (08:00)
[2017-10-05] MEDS: VANCOMYCIN 1,500 MG in SODIUM CHLORIDE 0.9% 250 ML IVPB SCH (08:57)
[2017-10-05] MEDS: INSULIN ASPART 100 UNIT/ML 1 ML 10 ML VIAL SQ SCH (08:57)
[2017-10-05] MEDS: LISINOPRIL-HCTZ 20-25 MG 1 EACH TAB PO SCH (08:58)
[2017-10-05] MEDS: METOPROLOL TARTRATE 50 MG TAB PO SCH (08:58)
[2017-10-05] MEDS: glipiZIDE 5 MG TAB PO SCH (08:58)
[2017-10-05] MEDS: cloNIDine HCL 0.1 MG TAB PO SCH (08:58)
[2017-10-05] MEDS: metFORMIN 500 MG TAB PO SCH (08:58)
[2017-10-05] MEDS: ATORVASTATIN 40 MG TAB PO SCH (08:59)
[2017-10-05] MEDS: amLODIPine 10 MG TAB PO SCH (08:59)
[2017-10-05] MEDS: DULoxetine HCL 30 MG CAPSULE.DR PO SCH (08:59)
[2017-10-05] MEDS: ASPIRIN 81 MG PO SCH (08:59)
[2017-10-05] MEDS ORDERED: ERGOCALCIFEROL 50,000 UNIT CAP PO SCH (09:00)
[2017-10-05 09:35] LABS: Anion Gap 10 mmol/L; Blood Urea Nitrogen 14 mg/dL (9-20); Calcium 9.3 mg/dL (8.4-10.2); Carbon Dioxide 28 mmol/L (22-30); Chloride 100 mmol/L (98-107); Glucose 243 mg/dL (74-99); Sodium 138 mmol/L (137-145)
[2017-10-05] MEDS ORDERED: VANCOMYCIN 1,250 MG in SODIUM CHLORIDE 0.9% 250 ML IVPB SCH (21:00)
--- NOTE | 2017-10-05 23:11 | P.PN ---
Subjective Progress Note Date: 10/04/17 Principal diagnosis: Scrotal abscess Patient is a 62-year-old male with a known history of chronic lower back pain and bilateral leg pain, coronary artery disease with history of stent placement , diabetes type 2 and hypertension and other multiple medical problems came to ER with complaints of groin pain and lateral told he also has right-sided scrotal swelling and pain. Patient has been having symptoms for the past 1 week and has seen his primary care physician and was started on oral antibiotics. Patient was told if the symptoms/pain gets worse to go to ER for further evaluation. Patient states that it's come so unbearable that he cannot sit. Patient states that his been no drainage denies any dysuria hematuria. Patient denies any fever, chills, abdominal pain. Scrotal ultrasound : represent a large testicular mass. It is avascular however testicular torsion is not excluded. Urologic consult is suggested. Patient was seen by urology and I&D of the abscess was done. Fluid culture was sent. Patient is currently on antibiotics in the form of vancomycin and Zosyn. 10/04/2017 Patient denied any worsening pain. Scrotal swelling is much improving. No fever no chills. Leukocytosis normalized. Continued on current antibiotics in the form of Zosyn and vancomycin and anticipate discharge in next 24 hours. All other review of systems negative except about Current medications reviewed Objective - Vital Signs Vital signs: Vital Signs Temp 97.6 F 10/04/17 14:59 Pulse 64 10/04/17 14:59 Resp 16 10/04/17 14:59 BP 91/62 10/04/17 14:59 Pulse Ox 95 10/04/17 14:59 Intake & Output 10/04/17 10/04/17 10/05/17 06:59 18:59 06:59 Intake Total 1260 440 Output Total 500 600 Balance 760 -160 Weight 77.1 kg Intake: Intake, IV Titration 540 Amount Piperacillin-Tazobactam 3 50 .375 gm In Dextrose/Water 1 50ml.bag @ 12.5 mls/hr IVPB Q8H [facility] Rx#: [id number] Sodium Chloride 0.9% 2, 240 000 ml @ 999 mls/hr IV . Q2H1M [facility] Rx#:[id number] Vancomycin 1,500 mg In 250 Sodium Chloride 0.9% 250 ml @ 125 mls/hr IVPB Q12HR [facility] Rx#:[id number] Oral 720 440 Output: Urine 500 600 Other: # Voids 2 1 - Exam PHYSICAL EXAMINATION: Patient is lying in the bed comfortably, no acute distress, awake alert and oriented.. HEENT: Normocephalic. Neck is supple. Pupils reactive. Nostrils clear. Oral cavity is moist. Ears reveal no drainage. Neck reveals no JVD, carotid bruits, or thyromegaly. CHEST EXAMINATION: Trachea is central. Symmetrical expansion. Lung george clear to auscultation and percussion. CARDIAC: Normal S1, S2 with no gallops. No murmurs ABDOMEN: Soft. Bowel sounds normal. No organomegaly. No abdominal bruits. Scrotal swelling improved and the I&D site showed no drainage. Extremities: reveal no edema. No clubbing or cyanosis Neurologically awake, alert, oriented x3 with well-coordinated movements. No focal deficits noted Skin: No rash or skin lesions. Psychiatric: Coperative. Nonsuicidal Musculoskeletal: No joint swelling or deformity. Normal range of motion. - Labs CBC & Chem 7: 10/04/17 07:14 10/05/17 08:39 Labs: Abnormal Lab Results - Last 24 Hours (Table) 10/04/17 10/04/17 10/04/17 Range/Units 07:09 07:14 07:14 RBC 3.77 L (4.30-5.90) m/uL Hgb 11.6 L (13.0-17.5) gm/dL Hct 34.9 L (39.0-53.0) % Glucose 194 H (74-99) mg/dL POC Glucose (mg/dL) 193 H (75-99) mg/dL 10/04/17 10/04/17 10/04/17 Range/Units 12:34 17:24 20:48 RBC (4.30-5.90) m/uL Hgb (13.0-17.5) gm/dL Hct (39.0-53.0) % Glucose (74-99) mg/dL POC Glucose (mg/dL) 193 H 180 H 241 H (75-99) mg/dL Microbiology - Last 24 Hours (Table) 10/03/17 09:28 Blood Culture - Preliminary Blood No Growth after 24 hours 10/03/17 12:45 Gram Stain - Preliminary Other - Other Wound Culture - Preliminary Assessment and Plan Assessment: Sepsis secondary to groin abscess status post I&D Lactic acidosis secondary to above. Resolved now. Failed outpatient antibiotic therapy Hyperglycemia with uncontrolled diabetes type 2. [id number] Coronary artery disease with history of 5 stents Hypokalemia Hypertension controlled Hyperlipidemia Osteoarthritis Chronic lower back pain and bilateral leg pain DVT prophylaxis Depression Previous history of smoking Plan: Patient will be continued on antibiotics in the form of vancomycin and Zosyn. Follow with fluid cultures. Showed gram-positive cocci and gram-positive rods. Continue with IV hydration and pain management. Insulin sliding scale and Accu-Cheks. Continue the home medications and further recommendations based on the clinical course. Time with Patient: Greater than 30
--- NOTE | 2017-10-05 23:13 | P.DS ---
Providers Date of admission: 10/03/17 11:25 Expected date of discharge: 10/05/17 Attending physician: Gordon Guo Consults: 10/03/17 11:25 Consult Physician Stat Consulting Provider: Gonsalo Stanley Consult Reason/Comments: Testicular mass Do you want consulting provider notified?: Already Contacted [facility] Hospital Course: Discharge diagnosis Sepsis secondary to groin abscess status post I&D. Wound culture showed normal pollo Lactic acidosis secondary to above. Resolved now. Failed outpatient antibiotic therapy Hyperglycemia with uncontrolled diabetes type 2. [id number] Coronary artery disease with history of 5 stents Hypokalemia Hypertension controlled Hyperlipidemia Osteoarthritis Chronic lower back pain and bilateral leg pain DVT prophylaxis Depression Previous history of smoking Hospital course Patient is a 62-year-old male with a known history of chronic lower back pain and bilateral leg pain, coronary artery disease with history of stent placement , diabetes type 2 and hypertension and other multiple medical problems came to ER with complaints of groin pain and lateral told he also has right-sided scrotal swelling and pain. Patient has been having symptoms for the past 1 week and has seen his primary care physician and was started on oral antibiotics. Patient was told if the symptoms/pain gets worse to go to ER for further evaluation. Patient states that it's come so unbearable that he cannot sit. Patient states that his been no drainage denies any dysuria hematuria. Patient denies any fever, chills, abdominal pain. Scrotal ultrasound : represent a large testicular mass. It is avascular however testicular torsion is not excluded. Urologic consult is suggested. Patient was seen by urology and I&D of the abscess was done. Fluid culture was sent. Patient is currently on antibiotics in the form of vancomycin and Zosyn. 10/04/2017 Patient denied any worsening pain. Scrotal swelling is much improving. No fever no chills. Leukocytosis normalized. Continued on current antibiotics in the form of Zosyn and vancomycin and anticipate discharge in next 24 hours. 10/05/2017 Patient denied any scrotal pain. Leukocytosis normalized. Final wound culture showed normal moderate skin pollo. Patient will be continued on oral antibiotics in the form of Augmentin. Follow with urologist outpatient. Otherwise patient is stable to be discharged home. Plan: Patient as continued on antibiotics in the form of vancomycin and Zosyn. Follow with fluid cultures. Showed gram-positive cocci and gram-positive rods. Final culture showed moderate normal skin pollo. Continued with IV hydration and pain management. Patient is status post I&D. Insulin sliding scale and Accu-Cheks. Continue the home medications. Patient overall clinically improved and is stable to be discharged home with oral antibiotics. PHYSICAL EXAMINATION: Patient is lying in the bed comfortably, no acute distress, awake alert and oriented.. HEENT: Normocephalic. Neck is supple. Pupils reactive. Nostrils clear. Oral cavity is moist. Ears reveal no drainage. Neck reveals no JVD, carotid bruits, or thyromegaly. CHEST EXAMINATION: Trachea is central. Symmetrical expansion. Lung george clear to auscultation and percussion. CARDIAC: Normal S1, S2 with no gallops. No murmurs ABDOMEN: Soft. Bowel sounds normal. No organomegaly. No abdominal bruits. Extremities: reveal no edema. No clubbing or cyanosis Neurologically awake, alert, oriented x3 with well-coordinated movements. No focal deficits noted Skin: No rash or skin lesions. Psychiatric: Coperative. Nonsuicidal Musculoskeletal: No joint swelling or deformity. Normal range of motion. Vital Signs - 24 hr //18 06:09 Temperature 97.4 F L Pulse Rate [ 70 Pulse Oximetery ] Respiratory 18 Rate Blood Pressure 114/62 [Right Arm] O2 Sat by Pulse 98 Oximetry Patient Condition at Discharge: Stable Plan - Discharge Summary New Discharge Prescriptions: New Amoxicillin/Potassium Clav [Augmentin 875-125 Tablet] 1 tab PO Q12HR 5 Days # 10 tab Continue oxyCODONE ER [OxyCONTIN] 80 mg PO BID@,14 Aspirin EC [Ecotrin Low Dose] 81 mg PO DAILY #1 tablet. amLODIPine [Norvasc] 10 mg PO DAILY #30 tab metFORMIN HCL [Glucophage] 500 mg PO BID #60 tab glipiZIDE [Glipizide] 5 mg PO BID Lisinopril-Hctz 20-25 mg [Zestoretic 20-25] 1 tab PO DAILY Metoprolol Tartrate [Lopressor] 50 mg PO BID #60 tab cloNIDine HCL [Catapres] 0.1 mg PO BID Mupirocin 2% Oint [Bactroban 2% Oint] 1 applic TOPICAL BID DULoxetine HCL [Cymbalta] 30 mg PO DAILY oxyCODONE HCL 40 mg PO HS@0200 Atorvastatin [Lipitor] 40 mg PO DAILY Ergocalciferol (Vitamin D2) [Vitamin D2] 50,000 unit PO Q7D Discontinued Sulfamethox-Tmp 800-160Mg [Bactrim DS 800-160 mg] 1 tab PO BID Discharge Medication List oxyCODONE ER [OxyCONTIN] 80 mg PO BID@06,14 03/26/14 [History] Aspirin EC [Ecotrin Low Dose] 81 mg PO DAILY #1 tablet. 04/04/14 [Rx] amLODIPine [Norvasc] 10 mg PO DAILY #30 tab 04/04/14 [Rx] metFORMIN HCL [Glucophage] 500 mg PO BID #60 tab 04/05/14 [Rx] Lisinopril-Hctz 20-25 mg [Zestoretic 20-25] 1 tab PO DAILY 03/20/15 [History] glipiZIDE [Glipizide] 5 mg PO BID 03/20/15 [History] Metoprolol Tartrate [Lopressor] 50 mg PO BID #60 tab 03/21/15 [Rx] Atorvastatin [Lipitor] 40 mg PO DAILY 10/03/17 [History] DULoxetine HCL [Cymbalta] 30 mg PO DAILY 10/03/17 [History] Ergocalciferol (Vitamin D2) [Vitamin D2] 50,000 unit PO Q7D 10/03/17 [History] Mupirocin 2% Oint [Bactroban 2% Oint] 1 applic TOPICAL BID 10/03/17 [History] cloNIDine HCL [Catapres] 0.1 mg PO BID 10/03/17 [History] oxyCODONE HCL 40 mg PO HS@0200 10/03/17 [History] Amoxicillin/Potassium Clav [Augmentin 875-125 Tablet] 1 tab PO Q12HR 5 Days #10 tab 10/05/17 [Rx] Follow up Appointment(s)/Referral(s): [facility], [NON-STAFF] - As Needed Gonsalo Stanley MD [STAFF PHYSICIAN] - 10/12/17 10:20 am Dexter Ji DO [Primary Care Provider] - 1-2 days (call office for appointment) Patient Instructions/Handouts: Abscess Incision and Drainage (DC) Discharge Disposition: HOME WITH HOME HEALTH SERVICES
== END 2017-10-05 11:40 | disposition home health service (06) | DRG 872 ==
LOC: EC 09:00 → 4MS4W 11:25
PROVIDERS: ADMIT Internal Medicine; ATTEND Internal Medicine
PROC: 0V950ZZ Drainage of Scrotum, Open Approach (ICD-10-PCS; principal; 2017-10-03)
DX: A41.9 Sepsis, unspecified organism (principal); E87.2 Acidosis; N49.2 Inflammatory disorders of scrotum; I25.10 Atherosclerotic heart disease of native coronary artery without angina pectoris; E11.65 Type 2 diabetes mellitus with hyperglycemia; F32.9 Major depressive disorder, single episode, unspecified; G89.29 Other chronic pain; M54.9 Dorsalgia, unspecified; M79.605 Pain in left leg; M79.604 Pain in right leg; M19.90 Unspecified osteoarthritis, unspecified site; E78.5 Hyperlipidemia, unspecified; I10 Essential (primary) hypertension; Z95.5 Presence of coronary angioplasty implant and graft; Z82.49 Family history of ischemic heart disease and other diseases of the circulatory system; Z87.891 Personal history of nicotine dependence; Z83.3 Family history of diabetes mellitus; Z79.84 Long term (current) use of oral hypoglycemic drugs; Z79.82 Long term (current) use of aspirin; Z79.899 Other long term (current) drug therapy
CPT/HCPCS: 36415; 72170; 76870; 80048; 80053; 80202; 81001; 83605; 85025; 85027; 85610; 85730; 87040; 87070; 87205; 93975; 96361; 96365; 96366; 96372; 99284

== ENCOUNTER → 2017-10-08 | Outpatient (CLI) | payer MEDICARE, OTHER ==
--- NOTE | 2017-10-09 04:27 | MR ---
EXAMINATION TYPE: MR lumbar spine wo/w con DATE OF EXAM: 10/08/2017 COMPARISON: 08/15/2017 HISTORY: Low back pain, Previous MRI on PACS, Gadavist 7.5 TECHNIQUE: Multiplanar, multisequence images of the lumbar spine were acquired utilizing 7.5 mL intravenous Gada vist gadolinium contrast. There is laminectomy defect at multiple levels posteriorly. There is moderate narrowing of the disc s paces at L4-5 and L5-S1. There is rudimentary disc at S1-S2. Lumbar nerve roots appear normal. There is some narrowing of the neural foramina at L4-5 L5-S1 due to disc space narrowing and mild facet art hropathy. There is no compression fracture. There is no spinal stenosis. Sacroiliac joints are intact . There is no paraspinal mass. I see no bony destructive process. Contrast images show no pathologic enhancement. There is less severe disc space narrowing at L2-3 L3-4. IMPRESSION: Multilevel surgery. Multilevel spondylotic change. No spinal stenosis. Mild neural foraminal narrowin g as above. No fracture. No significant change compared to old exam.
== END | disposition home or self-care (01) ==
LOC: RADMRIMAIN 16:42
PROVIDERS: ATTEND Nurse Practitioner Acute Care
DX: M99.73 Connective tissue and disc stenosis of intervertebral foramina of lumbar region (principal); M47.816 Spondylosis without myelopathy or radiculopathy, lumbar region; Z98.890 Other specified postprocedural states
CPT/HCPCS: 72158; A9581

== ENCOUNTER → 2017-10-09 | Outpatient (CLI) | payer MEDICARE, OTHER ==
--- NOTE | 2017-10-09 18:51 | MR ---
Thoracic spine MRI HISTORY: Back pain, abnormal x-ray Correlation to x-ray 08/15/2017, prior MRI thoracic spine 01/17/2017, CT abdomen pelvis 03/22/2015 Multiplanar multisequence imaging through the thoracic spine Again noted is a mild spinal curvature. Sclerotic density on plain film corresponds to the abnormalit y seen on prior thoracic MRI, there are endplate Schmorl's nodes present at inferior T5 and superior and inferior endplates T6, superior endplate T7. There is associated low marrow signal on T1 and T2-w eighted sequences compatible with sclerosis. Multilevel Schmorl's node formation is present at additi onal vertebral bodies, there is multilevel spondylosis with endplate discogenic marrow signal change. Multilevel foraminal encroachment is again seen, multilevel facet arthropathy changes are present. M ultilevel disc bulges also seen without significant spinal stenosis. Thoracic cord signal is maintain ed. Prominence of the adrenal glands has been a chronic finding. Suspect the liver is enlarged. IMPRESSION: Multilevel foraminal encroachment, mild degenerative disc disease, Schmorl's node formati on. Facet arthropathy. Mild spinal curvature. Hepatomegaly..
== END | disposition home or self-care (01) ==
LOC: RADMRIMAIN 16:29
PROVIDERS: ATTEND Internal Medicine
DX: M51.34 Other intervertebral disc degeneration, thoracic region (principal); M51.44 Schmorl's nodes, thoracic region; M46.84 Other specified inflammatory spondylopathies, thoracic region; M43.9 Deforming dorsopathy, unspecified
CPT/HCPCS: 72146

== ENCOUNTER 2019-02-10 10:33 | Inpatient (IN) | payer MEDICARE, OTHER ==
[2019-02-10] MEDS ORDERED: SODIUM CHLORIDE 0.9% 1,000 ML IV STA ×2 (10:44→13:51)
[2019-02-10 11:08] LABS: VBG PH 7.44 (7.31-7.41)
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
[2019-02-10 11:20] LABS: Albumin 4.1 g/dL (3.5-5.0); Calcium 9.6 mg/dL (8.4-10.2); Total Bilirubin 1.1 mg/dL (0.2-1.3); Total Protein 6.6 g/dL (6.3-8.2)
[2019-02-10 11:29] LABS: Potassium 2.5 mmol/L (3.5-5.1)
[2019-02-10 11:33] LABS: Basophils # (A) 0.1 k/uL (0-0.2); Basophils % (A) 0 %; Eosinophils % (A) 0 %; HCT 47.7 % (39.0-53.0); HGB 16.4 gm/dL (13.0-17.5); Lymphocytes # (A) 1.4 k/uL (1.0-4.8); Lymphocytes % (A) 9 %; MCHC 34.3 g/dL (31.0-37.0); MCV 90.2 fL (80.0-100.0); Mean Platelet Volume 5.8; Monocytes # (A) 1.5 k/uL (0-1.0); Monocytes % (A) 9 %; Neutrophils # (A) 13.3 k/uL (1.3-7.7); Neutrophils % (A) 81 %; Platelet Count 485 k/uL (150-450); RBC 5.29 m/uL (4.30-5.90); RDW 13.4 % (11.5-15.5); WBC 16.4 k/uL (3.8-10.6)
--- NOTE | 2019-02-10 11:39 | CT ---
EXAMINATION TYPE: CT brain wo con DATE OF EXAM: 02/10/2019 COMPARISON: None HISTORY: 63-year-old male confusion, altered mental status TECHNIQUE: Examination was done in axial plane without intravenous contrast. Coronal and sagittal r econstructions performed. CT DLP: 1062.4 mGycm Automated exposure control for dose reduction was used. FINDINGS: There is no evidence of acute intracranial hemorrhage, acute ischemic changes, mass, mass-effect, or extra-axial fluid collection. There is no effacement of cerebral sulci or basal subarachnoid cister ns. There is no hydrocephalus. There is no midline shift. Worley-white matter distinction is preserv ed. Scattered trace mucosal thickening ethmoid air cells. Mastoid air cells well pneumatized. Orbits and globes are intact. Mild bifrontal cerebral atrophy. Small amount of extra-axial fat along the anterior midline, developm ent of variation. IMPRESSION: Mild bifrontal atrophy. No acute intracranial abnormality seen.
[2019-02-10] MEDS: POTASSIUM CHLORIDE 20 MEQ in WATER FOR INJECTION 1 100ML.BAG IVPB SCH ×2 (11:53→14:03)
[2019-02-10 11:54] LABS: Alcohol <10 mg/dL
[2019-02-10] MEDS ORDERED: fentaNYL (PF) 50 MCG/ML 2 ML AMP IVP ONE (12:00)
--- NOTE | 2019-02-10 12:17 | XR ---
EXAMINATION TYPE: XR abdomen acute w cxr DATE OF EXAM: 02/10/2019 COMPARISON: NONE HISTORY: Pain TECHNIQUE: Supine, upright, and left side down lateral decubitus views of the abdomen are obtained. FINDINGS: Arthropathy of the shoulders. No overt failure. Lung is clear. Heart is normal in size. Hyp ertrophic changes of the acetabulum correlate for femoral acetabular impingement. Correlate for previ ous surgery involving the lumbar spine. There are multiple air-fluid level seen in the abdomen. Appear to be of small bowel. Degenerative padmini nge of the spine. Little or no air seen in the rectum. IMPRESSION: Multiple small bowel prominent loops with air-fluid levels. Differential includes ileus, enteritis or partial obstruction.
--- NOTE | 2019-02-10 13:11 | CT ---
EXAMINATION TYPE: CT abdomen pelvis w con DATE OF EXAM: 02/10/2019 COMPARISON: 03/22/2015 HISTORY: 63-year-old male with leukocytosis and abdominal pain. TECHNIQUE: Contiguous axial scanning of the abdomen and pelvis following administration of 100 ml Omn ipaque 300 IV contrast. Delayed images through the kidneys and coronal/sagittal reconstructions perf ormed. CT DLP: 868.8 mGycm Automated exposure control for dose reduction was used. FINDINGS: Heart normal size without pericardial effusion. Coronary vessel calcifications are present. Trace ant erior pericardial fluid. Lung bases clear without pleural effusion. No focal liver lesion or biliary ductal dilatation. Portal venous system is patent. Gallbladder, right adrenal gland, right kidney, spleen, and pancreas appear within normal limits. Stable diffuse thickening of the left adrenal gland, possible adrenal hyperplasia. A couple subcentimeter cortical lesions within the left kidney likely represent small cortical cysts but are too small fracture CT characterization. No dilated small bowel, free fluid, or free air. Prominent fluid-filled small bowel loops in the left side of the abdomen and some liquid stool within the right side of the colon. No significant stool burden. Chronic inflammatory change. Normal appendix. Mild atherosclerotic calcifications infrarenal abdominal aorta and iliac arteries. More moderate foca l atelectatic change at the bilateral common iliac bifurcations. Mild circumferential bladder wall thickening. Prostate gland measures 4.1 cm wide. No abnormal fluid collection in the pelvis or pelvic lymphadenopathy. Pelvic phlebolith on the left. Bones degenerative changes. Postsurgical changes of L2-L5 laminectomies. Degenerative changes through out the lumbar spine. IMPRESSION: 1. PROMINENT FLUID-FILLED SMALL BOWEL LOOPS LEFT SIDE OF THE ABDOMEN WITH LIQUID STOOL IN THE RIGHT S BOONE OF THE COLON. CORRELATE FOR POSSIBLE ENTERITIS. 2. MILD CIRCUMFERENTIAL BLADDER WALL THICKENING. CORRELATE TO EXCLUDE CYSTITIS.
[2019-02-10] MEDS ORDERED: MORPHINE SULFATE 4 MG/ML SYRINGE IV PRN (14:01)
[2019-02-10] MEDS ORDERED: ACETAMINOPHEN TAB 325 MG TAB PO PRN (14:01)
[2019-02-10] MEDS ORDERED: ONDANSETRON 4 MG/2 ML VIAL IVP PRN (14:01)
[2019-02-10] MEDS ORDERED: NALOXONE 0.4 MG/ML 1 ML VIAL IV PRN (14:01)
[2019-02-10 14:08] LABS: Appearance,Urine Clear (Clear); Bilirubin,Urine Negative (Negative); Blood,Urine Negative (Negative); Color,Urine Light Yellow; Glucose,Urine (UA) 3+ (Negative); Ketones,Urine 1+ (Negative); Leukocyte Esterase,Urine Trace (Negative); Mucus,Urine Rare /hpf; Nitrite,Urine Negative (Negative); PH, Urine 5.5 (5.0-8.0); Protein,Urine Trace (Negative); Squamous Epithelial Cell,Urine <1 /hpf (0-4); Urobilinogen,Urine <2.0 mg/dL (<2.0); WBC,Urine 3 /hpf (0-5)
[2019-02-10] MEDS: SODIUM CHLORIDE 0.9% 1,000 ML IV SCH (15:06)
[2019-02-10] MEDS ORDERED: POTASSIUM CHLORIDE ER 20 MEQ TAB.ER PO STA (16:02)
[2019-02-10] MEDS ORDERED: Potassium Replacement Protocol 1 EACH MISC MISCELLANE PRN (16:05)
[2019-02-10 16:39] LABS: Glucose,Whole Blood 231 mg/dL (75-99)
[2019-02-10] MEDS: INSULIN ASPART (NovoLOG) 100 UNIT/ML VIAL SQ SCH ×2 (17:40→21:58)
--- NOTE | 2019-02-10 17:40 | P.HPIM ---
History of Present Illness 63-year-old the male was brought in here because of elevated blood sugars patient the has polyuria polydipsia patient has multiple other provided abnormalities including serum sodium which is low and elevated serum creatinine acute renal failure secondary to dehydration from elevated blood sugars and polyuria. Patient doesn't is complaining of severe pain in the legs and back which is chronic and patient has chronic pain syndrome has to take his OxyContin on a scheduled basis. Patient blood sugars are elevated and has been elevated for longtime titration of his medications need to be done patient is on multiple medications including metformin and metformin will be held temporarily because of the acute renal failure and lisinopril temporarily because of the acute renal failure patient hopefully can be restarted back on lisinopril tomorrow morning patient will be started on IV fluids will increase the dose of Lantus and will use sliding scale insulin with each meal and check his basic metabolic profile tomorrow. Patient does have history of coronary disease denied any history of congestive heart failure Review of Systems REVIEW OF SYSTEMS: CONSTITUTIONAL: No fever, no malaise, no fatigue. HEENT: No recent visual problems or hearing problems. Denied any sore throat. CARDIOVASCULAR: No chest pain, orthopnea, PND, no palpitations, no syncope. PULMONARY: No shortness of breath, no cough, no hemoptysis. GASTROINTESTINAL: No diarrhea, no nausea, no vomiting, no abdominal pain. NEUROLOGICAL: No headaches, no weakness, no numbness. HEMATOLOGICAL: Denies any bleeding or petechiae. GENITOURINARY: Denies any burning micturition, frequency, or urgency. MUSCULOSKELETAL/RHEUMATOLOGICAL: Denies any joint pain, swelling, or any muscle pain. ENDOCRINE: As mentioned in HPI The rest of the 14-point review of systems is negative. Past Medical History Past Medical History: Coronary Artery Disease (CAD), Chest Pain / Angina, Diabetes Mellitus, Hyperlipidemia, Hypertension Additional Past Medical History / Comment(s): Other HX: Chronic lower back pain and bilateral leg pain, History of Any Multi-Drug Resistant Organisms: None Reported Past Surgical History: Back Surgery, Heart Catheterization With Stent Additional Past Surgical History / Comment(s): ankle surgery-pt believes it was his R ankle. pt states he has a total of 5 heart stents Past Anesthesia/Blood Transfusion Reactions: No Reported Reaction Additional Past Anesthesia/Blood Transfusion Reaction / Comment(s): recieved blood after severe nose bleed, needed to be cauterized after recieving too much aspirin. Date of Last Stent Placement:: 02/2015 Past Psychological History: No Psychological Hx Reported Additional Psychological History / Comment(s): From home alone. He is independent. He ambulates with a cane. Pt performs own ADL's. Pt drives a car. Smoking Status: Former smoker Past Alcohol Use History: None Reported Past Drug Use History: Marijuana Additional Drug Use History / Comment(s): Marijuana daily if possible 1-2 joints- it helps with his leg pain. - Past Family History Sister(s) Family Medical History: Coronary Artery Disease (CAD), Hypertension Father Family Medical History: Coronary Artery Disease (CAD), Diabetes Mellitus, Deep Vein Thrombosis (DVT), Hypertension Additional Family Medical History / Comment(s): Father at age 58yrs. He of blood clot from leg injury that went to his heart. Medications and Allergies Home Medications Medication Instructions Recorded Confirmed Type oxyCODONE ER [OxyCONTIN] 80 mg PO BID 03/26/14 02/10/19 History amLODIPine [Norvasc] 10 mg PO DAILY #30 tab 04/04/14 02/10/19 Rx metFORMIN HCL [Glucophage] 500 mg PO BID #60 tab 04/05/14 02/10/19 Rx Lisinopril-Hctz 20-25 mg 1 tab PO DAILY 03/20/15 02/10/19 History [Zestoretic 20-25] glipiZIDE [Glipizide] 5 mg PO BID 03/20/15 02/10/19 History Atorvastatin [Lipitor] 40 mg PO DAILY 10/03/17 02/10/19 History cloNIDine HCL [Catapres] 0.1 mg PO BID 10/03/17 02/10/19 History DULoxetine HCL [Cymbalta] 60 mg PO BID 02/10/19 02/10/19 History Allergies Allergy/AdvReac Type Severity Reaction Status Date / Time No Known Allergies Allergy Verified 02/10/19 11:50 Physical Exam Vitals: Vital Signs Temp Pulse Pulse Resp BP BP Pulse Ox 02/10/19 15:19 97.4 F L 76 16 148/77 100 02/10/19 14:51 97.8 F 87 18 120/56 98 02/10/19 13:50 87 16 120/77 98 02/10/19 13:30 81 16 126/77 98 02/10/19 12:12 91 18 99/62 100 02/10/19 11:40 85 16 107/63 98 02/10/19 11:00 90/66 02/10/19 10:55 84/59 02/10/19 10:51 98 16 77/61 98 02/10/19 10:38 97.8 F 116 H 18 73/52 99 Intake and Output 02/10/19 02/10/19 02/10/19 06:59 14:59 22:59 Intake Total 100 Output Total 500 Balance -400 Intake: IV 100 Potassium Chloride 20 meq 100 In Water For Injection 1 100ml.bag @ 50 mls/hr IVPB Q2H [facility] Rx#: [id number] Output: Urine 500 Other: # Bowel Movements 1 Weight 77.111 kg PHYSICAL EXAMINATION: GENERAL: The patient is alert and oriented x3, not in any acute distress. Well developed, well nourished. HEENT: Pupils are round and equally reacting to light. EOMI. No scleral icterus. No conjunctival pallor. Normocephalic, atraumatic. No pharyngeal erythema. No thyromegaly. CARDIOVASCULAR: S1 and S2 present. No murmurs, rubs, or gallops. PULMONARY: Chest is clear to auscultation, no wheezing or crackles. ABDOMEN: Soft, nontender, nondistended, normoactive bowel sounds. No palpable organomegaly. MUSCULOSKELETAL: No joint swelling or deformity. EXTREMITIES: No cyanosis, clubbing, or pedal edema. NEUROLOGICAL: Gross neurological examination did not reveal any focal deficits. SKIN: No rashes. Results CBC & Chem 7: 02/10/19 10:48 02/10/19 10:48 Labs: Abnormal Lab Results - Last 24 Hours (Table) 02/10/19 02/10/19 02/10/19 Range/Units 10:48 10:48 10:48 WBC 16.4 H (3.8-10.6) k/uL Plt Count 485 H (150-450) k/uL Neutrophils # 13.3 H (1.3-7.7) k/uL Monocytes # 1.5 H (0-1.0) k/uL VBG pH (7.31-7.41) VBG pCO2 (37-51) mmHg Sodium 130 L (137-145) mmol/L Potassium 2.5 L* (3.5-5.1) mmol/L Chloride 88 L (98-107) mmol/L BUN 28 H (9-20) mg/dL Creatinine 1.32 H (0.66-1.25) mg/dL Glucose 368 H (74-99) mg/dL POC Glucose (mg/dL) (75-99) mg/dL Plasma Lactic Acid Chinedu 2.9 H* (0.7-2.0) mmol/L Urine Protein (Negative) Urine Glucose (UA) (Negative) Urine Ketones (Negative) Ur Leukocyte Esterase (Negative) Urine Mucus (None) /hpf 02/10/19 02/10/19 02/10/19 Range/Units 10:48 13:48 16:37 WBC (3.8-10.6) k/uL Plt Count (150-450) k/uL Neutrophils # (1.3-7.7) k/uL Monocytes # (0-1.0) k/uL VBG pH 7.44 H (7.31-7.41) VBG pCO2 36 L (37-51) mmHg Sodium (137-145) mmol/L Potassium (3.5-5.1) mmol/L Chloride (98-107) mmol/L BUN (9-20) mg/dL Creatinine (0.66-1.25) mg/dL Glucose (74-99) mg/dL POC Glucose (mg/dL) 231 H (75-99) mg/dL Plasma Lactic Acid Chinedu (0.7-2.0) mmol/L Urine Protein Trace H (Negative) Urine Glucose (UA) 3+ H (Negative) Urine Ketones 1+ H (Negative) Ur Leukocyte Esterase Trace H (Negative) Urine Mucus Rare H (None) /hpf Thrombosis Risk Factor Assmnt - Choose All That Apply Each Factor Represents 1 point: Obesity (BMI >25) Each Risk Factor Represents 2 Points: Age 61-74 years Thrombosis Risk Factor Assessment Total Risk Factor Score: 3 Thrombosis Risk Factor Assessment Level: Moderate Risk Assessment and Plan Plan: Type 2 diabetes mellitus hyperglycemia, uncontrolled elevated blood sugars: Carl titus's Lantus will be changed to 25 units at nighttime he already took 10 units of Lantus to morning because of which we'll give 20 units tonight and 25 units tomorrow night and sliding scale insulin area -Hyponatremia hypovolemic hyponatremia with contribution from pseudohyponatremia from hyperglycemia: IV fluids will be continued recheck basic metabolic profile and blood sugars -Acute renal failure secondary to diuresis from hyperglycemia IV fluids is expected to him improve the renal function after which lisinopril can be started again, we'll can you to hold off on diuretic therapy. -Leukocytosis reactive there are incidental findings of gastroenteritis as per the CT although patient doesn't have any pain in the abdomen and no diarrhea -Lactic acidosis secondary to intravascular well and patient expected to improve with IV fluids and actually did improve with IV fluids, there is no clinical evidence of urinary tract infection or cystitis. Will not require any antibiotics. -Hyperlipidemia -Hypertension - coronary artery disease with about 5 total stents in 2014 DVT prophylaxis early ambulation
[2019-02-10] MEDS ORDERED: oxyCODONE ER 80 MG TAB.ER.12H PO SCH (18:00)
[2019-02-10] MEDS ORDERED: POTASSIUM CHLORIDE ER 20 MEQ TAB.ER PO ONE (18:00)
[2019-02-10] MEDS: DULoxetine HCL 60 MG CAPSULE.DR PO SCH (20:01)
[2019-02-10] MEDS: cloNIDine HCL 0.1 MG TAB PO SCH (20:01)
[2019-02-10 20:27] LABS: Glucose,Whole Blood 267 mg/dL (75-99)
[2019-02-10 20:33] LABS: African American GFR (CKD) >90 (>60 ml/min/1.73 sqM); Anion Gap 10 mmol/L; Blood Urea Nitrogen 19 mg/dL (9-20); Calcium 8.6 mg/dL (8.4-10.2); Carbon Dioxide 23 mmol/L (22-30); Chloride 99 mmol/L (98-107); Glucose 290 mg/dL (74-99); Non-African American GFR(CKD) >90 (>60 ml/min/1.73 sqM); Sodium 132 mmol/L (137-145)
[2019-02-10 20:36] LABS: Potassium 2.6 mmol/L (3.5-5.1)
[2019-02-10] MEDS: POTASSIUM CHLORIDE ER 20 MEQ TAB.ER PO SCH (20:55)
[2019-02-10] MEDS ORDERED: INSULIN DETEMIR (LEVEMIR) 100 UNIT/ML SYR SQ SCH (21:00)
[2019-02-11] MEDS: SODIUM CHLORIDE 0.9% 1,000 ML IV SCH ×2 (00:24→13:37)
[2019-02-11] MEDS: POTASSIUM CHLORIDE ER 20 MEQ TAB.ER PO SCH ×4 (00:25→09:13)
[2019-02-11 06:17] LABS: Glucose,Whole Blood 283 mg/dL (75-99)
[2019-02-11] MEDS: INSULIN ASPART (NovoLOG) 100 UNIT/ML VIAL SQ SCH ×4 (06:32→20:05)
[2019-02-11 06:51] LABS: African American GFR (CKD) >90 (>60 ml/min/1.73 sqM); Anion Gap 8 mmol/L; Blood Urea Nitrogen 19 mg/dL (9-20); Calcium 8.7 mg/dL (8.4-10.2); Carbon Dioxide 23 mmol/L (22-30); Chloride 100 mmol/L (98-107); Glucose 306 mg/dL (74-99); Non-African American GFR(CKD) 90 (>60 ml/min/1.73 sqM); Potassium 3.1 mmol/L (3.5-5.1); Sodium 131 mmol/L (137-145)
[2019-02-11] MEDS: ATORVASTATIN 40 MG TAB PO SCH (07:51)
[2019-02-11] MEDS: DULoxetine HCL 60 MG CAPSULE.DR PO SCH ×2 (07:51→20:05)
[2019-02-11] MEDS: cloNIDine HCL 0.1 MG TAB PO SCH ×2 (07:51→20:05)
[2019-02-11] MEDS: oxyCODONE ER 20 MG TAB.ER.12H PO SCH ×2 (07:51→20:05)
[2019-02-11] MEDS: PANTOPRAZOLE 40 MG/10 ML VIAL IV SCH (07:54)
[2019-02-11] MEDS ORDERED: POTASSIUM CHLORIDE ER 20 MEQ TAB.ER PO STA ×3 (09:14→14:28)
[2019-02-11] MEDS: LISINOPRIL 20 MG TAB PO SCH (12:10)
[2019-02-11 12:21] LABS: Glucose,Whole Blood 222 mg/dL (75-99)
[2019-02-11] MEDS: amLODIPine 10 MG TAB PO SCH (14:46)
--- NOTE | 2019-02-11 15:27 | P.PN ---
Subjective Progress Note Date: 02/11/19 Principal diagnosis: 63-year-old the male was brought in here because of elevated blood sugars patient the has polyuria polydipsia patient has multiple other provided abnormalities including serum sodium which is low and elevated serum creatinine acute renal failure secondary to dehydration from elevated blood sugars and polyuria. Patient doesn't is complaining of severe pain in the legs and back which is chronic and patient has chronic pain syndrome has to take his OxyContin on a scheduled basis. Patient blood sugars are elevated and has been elevated for longtime titration of his medications need to be done patient is on multiple medications including metformin and metformin will be held temporarily because of the acute renal failure and lisinopril temporarily because of the acute renal failure patient hopefully can be restarted back on lisinopril tomorrow morning patient will be started on IV fluids will increase the dose of Lantus and will use sliding scale insulin with each meal and check his basic metabolic profile tomorrow. Patient does have history of coronary disease denied any history of congestive heart failure. 02/11/2019 Patient is sitting up in bed in no acute distress with no acute overnight issues. Family is at the bedside. Patient states that he feels much better today than yesterday and blood to go home today. Patient's potassium today was replaced and one up to 3.2 from 3.1. Additional supplements given and will repeat a.m. labs. Current sodium today is 131. Currently patient denies any chest pain, shortness of breath, or palpitations at this time. Patient is afebrile. Patient denies any nausea or vomiting and is tolerating diet. Patient denies any diarrhea at this time and states that he had a bowel movement yesterday. Adjustments have been made to his insulins and will continue to monitor labs and vital signs closely. Guarded prognosis. REVIEW OF SYSTEMS: ENT: No diminished vision or hearing. CARDIOVASCULAR: No chest pain or palpitations RESPIRATORY: No shortness of breath or cough GI: No nausea, vomiting or diarrhea. : No dysuria or retention. NERVOUS SYSTEM: No numbness or weakness. ALLERGY/IMMUNOLOGY: No asthma or hay fever. HEMATOLOGY/ONCOLOGY: No history of anemia. ENDOCRINE: history of diabetes CONSTITUTIONAL: As mentioned earlier. DERMATOLOGY: Negative. PSYCHIATRY: Cooperative, non-suicidal Active Medications Acetaminophen (Tylenol Tab) 650 mg PO Q6HR PRN PRN Reason: Mild Pain or Fever > 100.5 Amlodipine Besylate (Norvasc) 10 mg PO DAILY [facility] Last Admin: 02/11/19 14:46 Dose: Not Given Documented by: Atorvastatin Calcium (Lipitor) 40 mg PO DAILY [facility] Last Admin: 02/11/19 07:51 Dose: 40 mg Documented by: Clonidine (Catapres) 0.1 mg PO BID [facility] Last Admin: 02/11/19 07:51 Dose: 0.1 mg Documented by: Duloxetine HCl (Cymbalta) 60 mg PO BID [facility] Last Admin: 02/11/19 07:51 Dose: 60 mg Documented by: Glipizide (Glucotrol) 5 mg PO AC-BID [facility] Sodium Chloride (Saline 0.9%) 1,000 mls @ 110 mls/hr IV .Q9H6M [facility] Last Admin: 02/11/19 13:37 Dose: 110 mls/hr Documented by: Insulin Aspart (Novolog) 0 unit SQ [facility]; Protocol Last Admin: 02/11/19 12:10 Dose: 3 unit Documented by: Insulin Detemir (Levemir) 25 unit SQ [facility] Lisinopril (Zestril) 20 mg PO DAILY [facility] Last Admin: 02/11/19 12:10 Dose: 20 mg Documented by: Metformin HCl (Glucophage) 500 mg PO AC-BID [facility] Miscellaneous Information (Potassium Per Protocol) 1 each MISCELLANE DAILY PRN; Protocol PRN Reason: Per Protocol Morphine Sulfate (Morphine Sulfate (Inj)) 4 mg IV Q4HR PRN PRN Reason: Severe Pain Naloxone HCl (Narcan) 0.2 mg IV Q2M PRN PRN Reason: Opioid Reversal Ondansetron HCl (Zofran) 4 mg IVP Q8HR PRN PRN Reason: Nausea And Vomiting Last Admin: 02/10/19 20:00 Dose: 4 mg Documented by: Oxycodone HCl (Oxycontin 20mg E.R.) 80 mg PO BID [facility] Last Admin: 02/11/19 07:51 Dose: 80 mg Documented by: Pantoprazole Sodium (Protonix) 40 mg IV DAILY [facility] Last Admin: 02/11/19 07:54 Dose: 40 mg Documented by: Objective - Vital Signs Vital signs: Vital Signs Temp 97.6 F 02/11/19 14:53 Pulse 83 02/11/19 14:53 Resp 16 02/11/19 14:53 BP 113/66 02/11/19 14:53 Pulse Ox 98 02/11/19 14:53 Intake & Output 02/10/19 02/11/19 02/11/19 18:59 06:59 18:59 Intake Total 100 2757 440 Output Total 500 700 500 Balance -400 2056 Weight 77.111 kg 74.2 kg Intake: IV 100 Potassium Chloride 20 meq 100 In Water For Injection 1 100ml.bag @ 50 mls/hr IVPB Q2H [facility] Rx#: [id number] Intake, IV Titration 660 Amount Sodium Chloride 0.9% 1, 660 000 ml @ 110 mls/hr IV . Q9H6M [facility] Rx#:[id number] Oral 2097 440 Output: Urine 500 700 500 Other: Voiding Method Urinal Urinal Urinal # Voids 3 # Bowel Movements 1 - Exam GENERAL: The patient is alert and oriented x3, not in any acute distress. Well developed, well nourished. HEENT: Pupils are round and equally reacting to light. EOMI. No scleral icterus. No conjunctival pallor. Normocephalic, atraumatic. No pharyngeal erythema. No thyromegaly. CARDIOVASCULAR: S1 and S2 present. No murmurs, rubs, or gallops. PULMONARY: Chest is clear to auscultation, no wheezing or crackles. ABDOMEN: Soft, nontender, nondistended, normoactive bowel sounds. No palpable organomegaly. MUSCULOSKELETAL: No joint swelling or deformity. EXTREMITIES: No cyanosis, clubbing, or pedal edema. NEUROLOGICAL: Gross neurological examination did not reveal any focal deficits. SKIN: No rashes. - Labs CBC & Chem 7: 02/10/19 10:48 02/11/19 13:45 Labs: Abnormal Lab Results - Last 24 Hours (Table) 02/10/19 02/10/19 02/10/19 Range/Units 16:37 19:50 20:26 Sodium 132 L (137-145) mmol/L Potassium 2.6 L* (3.5-5.1) mmol/L Glucose 290 H (74-99) mg/dL POC Glucose (mg/dL) 231 H 267 H (75-99) mg/dL 02/11/19 02/11/19 02/11/19 Range/Units 01:37 05:29 06:16 Sodium 131 L (137-145) mmol/L Potassium 3.2 L 3.1 L (3.5-5.1) mmol/L Glucose 306 H (74-99) mg/dL POC Glucose (mg/dL) 283 H (75-99) mg/dL 02/11/19 02/11/19 Range/Units 11:53 13:45 Sodium (137-145) mmol/L Potassium 3.2 L (3.5-5.1) mmol/L Glucose (74-99) mg/dL POC Glucose (mg/dL) 222 H (75-99) mg/dL Assessment and Plan Assessment: -Type 2 diabetes mellitus hyperglycemia, uncontrolled elevated blood sugars: Patient's Lantus will be changed to 25 units at nighttime and will continue sliding scale -Hyponatremia hypovolemic hyponatremia with contribution from pseudohyponatremia from hyperglycemia: IV fluids will be continued recheck basic metabolic profile and blood sugars. Sodium is 131, potassium is 3.2. will repeat a.m. labs. -Acute renal failure secondary to diuresis from hyperglycemia -Leukocytosis reactive there are incidental findings of gastroenteritis as per the CT although patient doesn't have any pain in the abdomen and no diarrhea -Lactic acidosis secondary to intravascular -Hyperlipidemia -Hypertension -coronary artery disease with about 5 total stents in 2015 -DVT prophylaxis early ambulation Recommendations and discussion: Recommend to continue current medications, management, and symptomatic treatment. Will continue to monitor vital signs and labs closely. Will adjust insulins accordingly as the blood sugars continue to remain slightly elevated in the 200s. Patient will be started on 25 units of Levemir tonight and will monitor blood sugars closely. Patient's Norvasc was held today along with lisinopril and blood pressures have been stable. Will continue to monitor closely. Guarded prognosis. Further recommendations to follow. Possible discharge in 24-48 hours.
[2019-02-11 17:02] LABS: Glucose,Whole Blood 242 mg/dL (75-99)
[2019-02-11] MEDS: metFORMIN 500 MG TAB PO SCH (17:03)
[2019-02-11] MEDS: glipiZIDE 5 MG TAB PO SCH (17:03)
[2019-02-11 19:40] LABS: Glucose,Whole Blood 276 mg/dL (75-99)
[2019-02-11 20:04] LABS: Hemoglobin A1C 13.6 % (4.0-6.0)
[2019-02-11 20:13] VITALS: RESP 18
[2019-02-11] MEDS ORDERED: INSULIN DETEMIR (LEVEMIR) 100 UNIT/ML SYR SQ SCH (21:00)
[2019-02-12 06:01] LABS: Glucose,Whole Blood 148 mg/dL (75-99)
[2019-02-12] MEDS: glipiZIDE 5 MG TAB PO SCH (06:28)
[2019-02-12] MEDS: INSULIN ASPART (NovoLOG) 100 UNIT/ML VIAL SQ SCH ×2 (06:28→12:08)
[2019-02-12] MEDS: metFORMIN 500 MG TAB PO SCH (06:28)
[2019-02-12 06:36] LABS: Basophils # (A) 0.1 k/uL (0-0.2); Basophils % (A) 0 %; Eosinophils # (A) 0.1 k/uL (0-0.7); Eosinophils % (A) 1 %; HCT 43.7 % (39.0-53.0); HGB 14.7 gm/dL (13.0-17.5); Lymphocytes # (A) 2.8 k/uL (1.0-4.8); Lymphocytes % (A) 22 %; MCH 30.7 pg (25.0-35.0); MCHC 33.7 g/dL (31.0-37.0); MCV 91.1 fL (80.0-100.0); Mean Platelet Volume 5.8; Monocytes # (A) 0.9 k/uL (0-1.0); Monocytes % (A) 7 %; Neutrophils # (A) 8.6 k/uL (1.3-7.7); Neutrophils % (A) 68 %; Platelet Count 360 k/uL (150-450); RBC 4.79 m/uL (4.30-5.90); RDW 13.5 % (11.5-15.5); WBC 12.6 k/uL (3.8-10.6)
[2019-02-12 06:55] LABS: African American GFR (CKD) >90 (>60 ml/min/1.73 sqM); Anion Gap 8 mmol/L; Blood Urea Nitrogen 14 mg/dL (9-20); Calcium 8.8 mg/dL (8.4-10.2); Carbon Dioxide 25 mmol/L (22-30); Chloride 105 mmol/L (98-107); Glucose 120 mg/dL (74-99); Non-African American GFR(CKD) >90 (>60 ml/min/1.73 sqM); Potassium 3.4 mmol/L (3.5-5.1); Sodium 138 mmol/L (137-145)
[2019-02-12] MEDS ORDERED: Potassium Replacement Protocol 1 EACH MISC MISCELLANE PRN (07:34)
[2019-02-12] MEDS: SODIUM CHLORIDE 0.9% 1,000 ML IV SCH (07:54)
[2019-02-12] MEDS: POTASSIUM CHLORIDE ER 20 MEQ TAB.ER PO SCH ×2 (08:17→11:00)
[2019-02-12] MEDS: amLODIPine 10 MG TAB PO SCH (08:17)
[2019-02-12] MEDS: PANTOPRAZOLE 40 MG/10 ML VIAL IV SCH (08:18)
[2019-02-12] MEDS: oxyCODONE ER 20 MG TAB.ER.12H PO SCH (08:18)
[2019-02-12] MEDS: ATORVASTATIN 40 MG TAB PO SCH (08:18)
[2019-02-12] MEDS: LISINOPRIL 20 MG TAB PO SCH (08:18)
[2019-02-12] MEDS: cloNIDine HCL 0.1 MG TAB PO SCH (08:18)
[2019-02-12] MEDS: DULoxetine HCL 60 MG CAPSULE.DR PO SCH (08:18)
[2019-02-12 08:29] VITALS: BP 123/68; PULSE 74; TEMP 98.2
[2019-02-12] MEDS ORDERED: POTASSIUM CHLORIDE ER 20 MEQ TAB.ER PO STA (10:49)
[2019-02-12 12:05] LABS: Glucose,Whole Blood 208 mg/dL (75-99)
[2019-02-12 12:41] VITALS: BMI 26.8
--- NOTE | 2019-02-17 21:45 | P.DS ---
Providers Date of admission: 02/10/19 14:01 Expected date of discharge: 02/12/19 Attending physician: Shalom Velásquez Primary care physician: Dexter Ji [facility] Course: Discharge diagnosis -Type 2 diabetes mellitus hyperglycemia, uncontrolled elevated blood sugars: Patient's Lantus will be changed to 22 units at nighttime and will continue hypoglycemic medications -Hyponatremia hypovolemic hyponatremia with contribution from pseudohyponatremia from hyperglycemia: IV fluids will be continued recheck basic metabolic profile and blood sugars. Sodium is 131, potassium is 3.2. will repeat a.m. labs. -Acute renal failure secondary to diuresis from hyperglycemia -Leukocytosis reactive there are incidental findings of gastroenteritis as per the CT although patient doesn't have any pain in the abdomen and no diarrhea -Lactic acidosis secondary to intravascular -Hyperlipidemia -Hypertension -coronary artery disease with about 5 total stents in 2014 -DVT prophylaxis early ambulation Hospital course 63-year-old the male was brought in here because of elevated blood sugars patient the has polyuria polydipsia patient has multiple other provided abnormalities including serum sodium which is low and elevated serum creatinine acute renal failure secondary to dehydration from elevated blood sugars and polyuria. Patient doesn't is complaining of severe pain in the legs and back which is chronic and patient has chronic pain syndrome has to take his OxyContin on a scheduled basis. Patient blood sugars are elevated and has been elevated for longtime titration of his medications need to be done patient is on multiple medications including metformin and metformin will be held temporarily because of the acute renal failure and lisinopril temporarily because of the acute renal failure patient hopefully can be restarted back on lisinopril tomorrow morning patient will be started on IV fluids will increase the dose of Lantus and will use sliding scale insulin with each meal and check his basic metabolic profile tomorrow. Patient does have history of coronary disease denied any history of congestive heart failure. 02/11/2019 Patient is sitting up in bed in no acute distress with no acute overnight issues. Family is at the bedside. Patient states that he feels much better today than yesterday and blood to go home today. Patient's potassium today was replaced and one up to 3.2 from 3.1. Additional supplements given and will repeat a.m. labs. Current sodium today is 131. Currently patient denies any chest pain, shortness of breath, or palpitations at this time. Patient is afebrile. Patient denies any nausea or vomiting and is tolerating diet. Patient denies any diarrhea at this time and states that he had a bowel movement yesterday. Adjustments have been made to his insulins and will continue to monitor labs and vital signs closely. Guarded prognosis. 02/12/2090 Patient is lying in the bed comfortably. Potassium level improved. Blood sugar is better controlled with Levemir 25 units in the night along with his home hypoglycemic medications. New prescription for Levemir were sent. No other acute overnight issues. Patient is being discharged home today. Back pain is controlled. Hydrochlorothiazide has been held due to hyponatremia and hypokalemia. PHYSICAL EXAMINATION: Patient is lying in the bed comfortably, no acute distress, awake alert and oriented.. HEENT: Normocephalic. Neck is supple. Pupils reactive. Nostrils clear. Oral cavity is moist. Ears reveal no drainage. Neck reveals no JVD, carotid bruits, or thyromegaly. CHEST EXAMINATION: Trachea is central. Symmetrical expansion. Lung george clear to auscultation and percussion. CARDIAC: Normal S1, S2 with no gallops. No murmurs ABDOMEN: Soft. Bowel sounds normal. No organomegaly. No abdominal bruits. Extremities: reveal no edema. No clubbing or cyanosis Neurologically awake, alert, oriented x3 with well-coordinated movements. No focal deficits noted Skin: No rash or skin lesions. Psychiatric: Coperative. Nonsuicidal Musculoskeletal: No joint swelling or deformity. Normal range of motion. Discharge vitals reviewed. Total time taken greater than 35 minutes including 18 minutes for counseling and coordination of care. Patient Condition at Discharge: Fair Plan - Discharge Summary New Discharge Prescriptions: New Lisinopril [Zestril] 20 mg PO DAILY #30 tab Continue oxyCODONE ER [OxyCONTIN] 80 mg PO BID amLODIPine [Norvasc] 10 mg PO DAILY #30 tab metFORMIN HCL [Glucophage] 500 mg PO BID #60 tab glipiZIDE [Glipizide] 5 mg PO BID cloNIDine HCL [Catapres] 0.1 mg PO BID Atorvastatin [Lipitor] 40 mg PO DAILY DULoxetine HCL [Cymbalta] 60 mg PO BID Discontinued Lisinopril-Hctz 20-25 mg [Zestoretic 20-25] 1 tab PO DAILY No Action Insulin Glargine [Lantus] 25 unit SQ DAILY Discharge Medication List oxyCODONE ER [OxyCONTIN] 80 mg PO BID 03/26/14 [History] amLODIPine [Norvasc] 10 mg PO DAILY #30 tab 04/04/14 [Rx] metFORMIN HCL [Glucophage] 500 mg PO BID #60 tab 04/05/14 [Rx] glipiZIDE [Glipizide] 5 mg PO BID 03/20/15 [History] Atorvastatin [Lipitor] 40 mg PO DAILY 10/03/17 [History] cloNIDine HCL [Catapres] 0.1 mg PO BID 10/03/17 [History] DULoxetine HCL [Cymbalta] 60 mg PO BID 02/10/19 [History] Lisinopril [Zestril] 20 mg PO DAILY #30 tab 02/11/19 [Rx] Insulin Glargine [Lantus] 25 unit SQ DAILY 02/17/19 [History] Follow up Appointment(s)/Referral(s): Dexter Ji DO [Primary Care Provider] - 1-2 days (call office thursday for appt) Patient Instructions/Handouts: Dehydration (DC), Hypokalemia (DC) Discharge Disposition: HOME SELF-CARE
== END 2019-02-12 13:24 | disposition home or self-care (01) | DRG 638 ==
LOC: EC 10:33 → 3SCARD 14:01
PROVIDERS: ADMIT Hospitalist; ATTEND Hospitalist
DX: E11.65 Type 2 diabetes mellitus with hyperglycemia (principal); E87.1 Hypo-osmolality and hyponatremia; E87.2 Acidosis; N17.9 Acute kidney failure, unspecified; E78.5 Hyperlipidemia, unspecified; E86.0 Dehydration; E87.6 Hypokalemia; G89.4 Chronic pain syndrome; I10 Essential (primary) hypertension; I25.10 Atherosclerotic heart disease of native coronary artery without angina pectoris; M19.90 Unspecified osteoarthritis, unspecified site; M54.5 Low back pain; M79.605 Pain in left leg; M79.604 Pain in right leg; M19.042 Primary osteoarthritis, left hand; M19.041 Primary osteoarthritis, right hand; Z79.84 Long term (current) use of oral hypoglycemic drugs; Z79.899 Other long term (current) drug therapy; Z95.5 Presence of coronary angioplasty implant and graft; Z91.14 Patient's other noncompliance with medication regimen; Z87.891 Personal history of nicotine dependence; Z83.3 Family history of diabetes mellitus; Z82.49 Family history of ischemic heart disease and other diseases of the circulatory system
CPT/HCPCS: 36415; 70450; 74022; 74177; 80048; 80053; 80320; 81001; 82803; 83036; 83605; 83690; 83735; 83930; 84132; 85025; 93005; 96361; 96365; 96366; 96375; 99285

== ENCOUNTER 2019-04-10 09:26 | Observation (INO) | payer MEDICARE, OTHER ==
[2019-04-10] MEDS ORDERED: diphenhydrAMINE 50 MG/ML 1 ML VIAL IVP STA (09:34)
[2019-04-10] MEDS ORDERED: ONDANSETRON 4 MG/2 ML VIAL IVP STA (09:34)
[2019-04-10] MEDS ORDERED: SODIUM CHLORIDE 0.9% 2,000 ML IV STA (09:34)
[2019-04-10] MEDS ORDERED: ENALAPRILAT 1.25 MG/ML 1 ML VIAL IVP STA (09:36)
--- NOTE | 2019-04-10 09:46 | ED ---
General Adult HPI - General Stated complaint: withdrawals Time Seen by Provider: 04/10/19 09:28 Source: patient, EMS, RN notes reviewed Mode of arrival: EMS Limitations: no limitations - History of Present Illness Initial comments: This a 64-year-old male presents emergency department via EMS chief complaint of opiate withdrawal. Patient states that he ran out of his OxyContin 3 days ago he states his next appointment is in 5 days. Patient on pain contract. Patient states he is unsure how he ran out of his pain meds he denies taking any action he believes that his nephew took them. Patient did take her [place] prior arrival. Patient denies chest pain shortness breath admits nausea vomiting diarrhea states it is diffuse pain. Patient denies any focal weakness no fevers or chills. - Related Data Home Medications Medication Instructions Recorded Confirmed oxyCODONE ER [OxyCONTIN] 80 mg PO BID 03/26/14 02/17/19 glipiZIDE [Glipizide] 5 mg PO BID 03/20/15 02/17/19 Atorvastatin [Lipitor] 40 mg PO DAILY 10/03/17 02/10/19 cloNIDine HCL [Catapres] 0.1 mg PO BID 10/03/17 02/17/19 DULoxetine HCL [Cymbalta] 60 mg PO BID 02/10/19 02/17/19 Insulin Glargine [Lantus] 25 unit SQ DAILY 02/17/19 02/17/19 Previous Rx's Medication Instructions Recorded amLODIPine [Norvasc] 10 mg PO DAILY #30 tab 04/04/14 metFORMIN HCL [Glucophage] 500 mg PO BID #60 tab 04/05/14 Lisinopril [Zestril] 20 mg PO DAILY #30 tab 02/11/19 Allergies Allergy/AdvReac Type Severity Reaction Status Date / Time No Known Allergies Allergy Verified 02/17/19 12:13 Review of Systems ROS Statement: Those systems with pertinent positive or pertinent negative responses have been documented in the HPI. ROS Other: All systems not noted in ROS Statement are negative. Past Medical History Past Medical History: Coronary Artery Disease (CAD), Chest Pain / Angina, Diabetes Mellitus, Hyperlipidemia, Hypertension Additional Past Medical History / Comment(s): Other HX: Chronic lower back pain and bilateral leg pain, History of Any Multi-Drug Resistant Organisms: None Reported Past Surgical History: Back Surgery, Heart Catheterization With Stent Additional Past Surgical History / Comment(s): ankle surgery-pt believes it was his R ankle. pt states he has a total of 5 heart stents Past Anesthesia/Blood Transfusion Reactions: No Reported Reaction Additional Past Anesthesia/Blood Transfusion Reaction / Comment(s): recieved bl ood after severe nose bleed, needed to be cauterized after recieving too much aspirin. Date of Last Stent Placement:: 02/2015 Past Psychological History: No Psychological Hx Reported Smoking Status: Former smoker - Past Family History Sister(s) Family Medical History: Coronary Artery Disease (CAD), Hypertension Father Family Medical History: Coronary Artery Disease (CAD), Diabetes Mellitus, Deep Vein Thrombosis (DVT), Hypertension Additional Family Medical History / Comment(s): Father at age 58yrs. He of blood clot from leg injury that went to his heart. General Exam Limitations: no limitations General appearance: alert, in no apparent distress Head exam: Present: atraumatic, normocephalic, normal inspection Eye exam: Present: normal appearance, PERRL, EOMI. Absent: scleral icterus, conjunctival injection, periorbital swelling ENT exam: Present: normal exam, mucous membranes moist Neck exam: Present: normal inspection, full ROM. Absent: tenderness, meningismus, lymphadenopathy Respiratory exam: Present: normal lung sounds bilaterally. Absent: respiratory distress, wheezes, rales, rhonchi, stridor Cardiovascular Exam: Present: regular rate, normal rhythm, normal heart sounds. Absent: systolic murmur, diastolic murmur, rubs, gallop, clicks GI/Abdominal exam: Present: soft, tenderness (Mild diffuse), normal bowel sounds. Absent: distended, guarding, rebound, rigid Course Vital Signs 04/10/19 09:33 Temperature 97.9 F Pulse Rate 91 Respiratory 18 Rate Blood Pressure 191/110 O2 Sat by Pulse 100 Oximetry EKG Findings - EKG Comments: EKG Findings:: EKG performed at 11:14 sinus tachycardia, left axis to the edition with a rate of 108 OH 194 QRS 102, QT/QTC 352/471 Medical Decision Making - Medical Decision Making Patient then persistent nausea vomiting labs reveal significant hypokalemia 2.6. Patient was ordered oral and IV replacement. Magnesium level was ordered at this time EKG shows sinus tachycardia. Patient's having extreme pain from the withdrawal. Patient will be admitted for severe electrolyte abnormality. - Lab Data Result diagrams: 04/10/19 09:39 04/10/19 10:15 Lab Results 04/10/19 04/10/19 04/10/19 Range/Units 09:39 09:39 10:15 WBC 12.8 H (3.8-10.6) k/uL RBC 5.23 (4.30-5.90) m/uL Hgb 15.8 (13.0-17.5) gm/dL Hct 47.2 (39.0-53.0) % MCV 90.2 (80.0-100.0) fL MCH 30.1 (25.0-35.0) pg MCHC 33.4 (31.0-37.0) g/dL RDW 13.8 (11.5-15.5) % Plt Count 433 (150-450) k/uL Neutrophils % 89 % Lymphocytes % 7 % Monocytes % 3 % Eosinophils % 0 % Basophils % 0 % Neutrophils # 11.4 H (1.3-7.7) k/uL Lymphocytes # 0.8 L (1.0-4.8) k/uL Monocytes # 0.4 (0-1.0) k/uL Eosinophils # 0.0 (0-0.7) k/uL Basophils # 0.1 (0-0.2) k/uL Sodium 142 (137-145) mmol/L Potassium 2.6 L* (3.5-5.1) mmol/L Chloride 103 (98-107) mmol/L Carbon Dioxide 26 (22-30) mmol/L Anion Gap 13 mmol/L BUN 19 (9-20) mg/dL Creatinine 0.62 L (0.66-1.25) mg/dL Est GFR (CKD-EPI)AfAm >90 (>60 ml/min/1.73 sqM) Est GFR (CKD-EPI)NonAf >90 (>60 ml/min/1.73 sqM) Glucose 255 H (74-99) mg/dL Calcium 9.7 (8.4-10.2) mg/dL Total Bilirubin 0.8 (0.2-1.3) mg/dL AST 27 (17-59) U/L ALT 26 (4-49) U/L Alkaline Phosphatase 132 H (38-126) U/L Total Protein 7.3 (6.3-8.2) g/dL Albumin 4.4 (3.5-5.0) g/dL Amylase 140 H (30-110) U/L Lipase 53 (23-300) U/L Urine Color Light Yellow Urine Appearance Clear (Clear) Urine pH 6.5 (5.0-8.0) Ur Specific [place] 1.010 (1.001-1.035) Urine Protein 2+ H (Negative) Urine Glucose (UA) 4+ H (Negative) Urine Ketones 1+ H (Negative) Urine Blood Small H (Negative) Urine Nitrite Negative (Negative) Urine Bilirubin Negative (Negative) Urine Urobilinogen <2.0 (<2.0) mg/dL Ur Leukocyte Esterase Negative (Negative) Urine RBC 6 H (0-5) /hpf Urine WBC <1 (0-5) /hpf Acetone, Qual Negative (Negative) Disposition Clinical Impression: Hypokalemia, Nausea vomiting and diarrhea, Opiate withdrawal, Hyperglycemia, Hypertension Disposition: ADMITTED IP TO THIS [facility] Condition: Fair Referrals: Dexter Ji DO [Primary Care Provider] - 1-2 days
[2019-04-10 10:25] LABS: Basophils # (A) 0.1 k/uL (0-0.2); Basophils % (A) 0 %; Eosinophils % (A) 0 %; HCT 47.2 % (39.0-53.0); HGB 15.8 gm/dL (13.0-17.5); Lymphocytes # (A) 0.8 k/uL (1.0-4.8); Lymphocytes % (A) 7 %; MCH 30.1 pg (25.0-35.0); MCHC 33.4 g/dL (31.0-37.0); MCV 90.2 fL (80.0-100.0); Monocytes # (A) 0.4 k/uL (0-1.0); Monocytes % (A) 3 %; Neutrophils # (A) 11.4 k/uL (1.3-7.7); Neutrophils % (A) 89 %; Platelet Count 433 k/uL (150-450); RBC 5.23 m/uL (4.30-5.90); RDW 13.8 % (11.5-15.5); WBC 12.8 k/uL (3.8-10.6)
[2019-04-10 10:28] LABS: Appearance,Urine Clear (Clear); Bilirubin,Urine Negative (Negative); Blood,Urine Small (Negative); Color,Urine Light Yellow; Glucose,Urine (UA) 4+ (Negative); Ketones,Urine 1+ (Negative); Leukocyte Esterase,Urine Negative (Negative); Nitrite,Urine Negative (Negative); PH, Urine 6.5 (5.0-8.0); Protein,Urine 2+ (Negative); RBC,Urine 6 /hpf (0-5); Urobilinogen,Urine <2.0 mg/dL (<2.0); WBC,Urine <1 /hpf (0-5)
[2019-04-10 10:50] LABS: ALT 26 U/L (4-49); AST 27 U/L (17-59); African American GFR (CKD) >90 (>60 ml/min/1.73 sqM); Albumin 4.4 g/dL (3.5-5.0); Alkaline Phosphatase 132 U/L (38-126); Amylase 140 U/L (30-110); Anion Gap 13 mmol/L; Blood Urea Nitrogen 19 mg/dL (9-20); Calcium 9.7 mg/dL (8.4-10.2); Carbon Dioxide 26 mmol/L (22-30); Chloride 103 mmol/L (98-107); Glucose 255 mg/dL (74-99); Non-African American GFR(CKD) >90 (>60 ml/min/1.73 sqM); Sodium 142 mmol/L (137-145); Total Bilirubin 0.8 mg/dL (0.2-1.3); Total Protein 7.3 g/dL (6.3-8.2)
[2019-04-10 10:53] LABS: Potassium 2.6 mmol/L (3.5-5.1)
[2019-04-10] MEDS ORDERED: METOCLOPRAMIDE 5 MG/ML 2 ML VIAL IVP STA (11:03)
[2019-04-10] MEDS ORDERED: MORPHINE SULFATE 4 MG/ML SYRINGE IVP STA (11:03)
[2019-04-10] MEDS ORDERED: POTASSIUM CHLORIDE ER 20 MEQ TAB.ER PO STA (11:18)
[2019-04-10] MEDS ORDERED: ONDANSETRON 4 MG/2 ML VIAL IVP PRN (11:21)
[2019-04-10] MEDS ORDERED: NALOXONE 0.4 MG/ML 1 ML VIAL IV PRN (11:21)
[2019-04-10] MEDS: SODIUM CHLORIDE 0.9% 1,000 ML IV SCH ×2 (11:23→16:21)
[2019-04-10] MEDS ORDERED: MAGNESIUM SULFATE-D5W PMX 1 GM in DEXTROSE/WATER 1 100ML.BAG IVPB ONE (12:06)
[2019-04-10] MEDS: POTASSIUM CHLORIDE 20 MEQ in WATER FOR INJECTION 1 100ML.BAG IVPB SCH ×2 (12:17→14:10)
[2019-04-10] MEDS ORDERED: INSULIN ASPART (NovoLOG) 100 UNIT/ML VIAL SQ SCH (12:30)
[2019-04-10 13:12] LABS: Glucose,Whole Blood 264 mg/dL (75-99)
--- NOTE | 2019-04-10 13:22 | P.HPIM ---
History of Present Illness H&P Date: 04/10/19 Patient is a 62-year-old male with a PMH of poorly controlled type 2 diabetes mellitus, hypertension, hyperlipidemia, coronary artery disease status post PCI 5, chronic lower back and bilateral leg pain after an injury (on chronic opiates - follows with a pain clinic), presented to the ED for opiate withdrawal. The patient reports that for the past 3-4 days, he has not been able to take his OxyContin since he ran out early. The patient is unsure as to what happened to his medications and feels that a family member might have stolen them. The patient reports diffuse pain with nausea. He denied chest pain, fever, chills, vomiting, diarrhea. Patient underwent an extensive evaluation in the emergency room with an EKG that revealed sinus tachycardia at 108 bpm, left axis deviation, with no acute ischemic changes noted. Laboratory evaluation revealed WBC count of 12.8, hemoglobin of 15.8, platelets of 433, potassium 2.6, magnesium 1.4, glucose 255, sodium 142, BUN 19, creatinine 0.62. Patient is admitted to the medicine service for dehydration, multiple electrolyte derangements, and opiate withdrawal. Review of Systems Pertinent positives and negatives as discussed in HPI, a complete review of systems was performed and all other systems are negative. Past Medical History Past Medical History: Coronary Artery Disease (CAD), Chest Pain / Angina, Diabetes Mellitus, Hyperlipidemia, Hypertension Additional Past Medical History / Comment(s): Other HX: Chronic lower back pain and bilateral leg pain, History of Any Multi-Drug Resistant Organisms: None Reported Past Surgical History: Back Surgery, Heart Catheterization With Stent Additional Past Surgical History / Comment(s): ankle surgery-pt believes it was his R ankle. pt states he has a total of 5 heart stents Past Anesthesia/Blood Transfusion Reactions: No Reported Reaction Additional Past Anesthesia/Blood Transfusion Reaction / Comment(s): recieved blood after severe nose bleed, needed to be cauterized after recieving too much aspirin. Date of Last Stent Placement:: 02/2015 Past Psychological History: No Psychological Hx Reported Smoking Status: Former smoker - Past Family History Sister(s) Family Medical History: Coronary Artery Disease (CAD), Hypertension Father Family Medical History: Coronary Artery Disease (CAD), Diabetes Mellitus, Deep Vein Thrombosis (DVT), Hypertension Additional Family Medical History / Comment(s): Father at age 58yrs. He of blood clot from leg injury that went to his heart. Medications and Allergies Home Medications Medication Instructions Recorded Confirmed Type oxyCODONE ER [OxyCONTIN] 80 mg PO BID 03/26/14 02/17/19 History amLODIPine [Norvasc] 10 mg PO DAILY #30 tab 04/04/14 02/17/19 Rx metFORMIN HCL [Glucophage] 500 mg PO BID #60 tab 04/05/14 02/17/19 Rx glipiZIDE [Glipizide] 5 mg PO BID 03/20/15 02/17/19 History Atorvastatin [Lipitor] 40 mg PO DAILY 10/03/17 02/10/19 History cloNIDine HCL [Catapres] 0.1 mg PO BID 10/03/17 02/17/19 History DULoxetine HCL [Cymbalta] 60 mg PO BID 02/10/19 02/17/19 History Lisinopril [Zestril] 20 mg PO DAILY #30 tab 02/11/19 02/17/19 Rx Insulin Glargine [Lantus] 25 unit SQ DAILY 02/17/19 02/17/19 History Allergies Allergy/AdvReac Type Severity Reaction Status Date / Time No Known Allergies Allergy Verified 02/17/19 12:13 Physical Exam Vitals: Vital Signs Temp Pulse Resp BP Pulse Ox 04/10/19 12:23 102 H 18 180/98 98 04/10/19 11:50 89 18 177/86 98 04/10/19 11:00 97 20 143/88 98 04/10/19 10:30 98 20 192/110 98 04/10/19 10:00 102 H 20 196/112 97 04/10/19 09:39 101 H 20 192/110 100 04/10/19 09:33 97.9 F 91 18 191/110 100 Intake and Output 04/09/19 04/10/19 04/10/19 22:59 06:59 14:59 Other: Weight 77.111 kg General: Uncomfortable appearing M, appears at stated age, overweight Derm: no unusual rashes/lesions no unusual ecchymoses, warm, dry Head: atraumatic, normocephalic, symmetric Eyes: EOMI, no lid lag, anicteric sclera, pupils equal round reactive to light ENT: Nose and ears atraumatic, no thrush, no pharyngeal erythema Neck: No thyromegaly, no cervical lymphadenopathy, trachea midline, supple Mouth: no lip lesion, mucus membranes moist Cardiovascular: S1S2 reg, no murmur, positive posterior tibial pulse bilateral, no edema, capillary refill less than 2 seconds Lungs: CTA bilateral, no rhonchi, no rales , no accessory muscle use Abdominal: soft, nontender to palpation, no guarding, no appreciable organomegaly, normal bowel sounds Ext: no gross muscle atrophy, muscle strength 5 out of 5 in all 4 extremities grossly, no contractures Neuro: CN II-XI grossly intact, light touch intact all 4 extremities, finger to nose within normal limits Psych: Alert, oriented, appropriate affect Results CBC & Chem 7: 04/10/19 09:39 04/10/19 10:15 Labs: Abnormal Lab Results - Last 24 Hours (Table) 04/10/19 04/10/19 04/10/19 Range/Units 09:39 09:39 10:15 WBC 12.8 H (3.8-10.6) k/uL Neutrophils # 11.4 H (1.3-7.7) k/uL Lymphocytes # 0.8 L (1.0-4.8) k/uL Potassium 2.6 L* (3.5-5.1) mmol/L Creatinine 0.62 L (0.66-1.25) mg/dL Glucose 255 H (74-99) mg/dL Magnesium (1.6-2.3) mg/dL Alkaline Phosphatase 132 H (38-126) U/L Amylase 140 H (30-110) U/L Urine Protein 2+ H (Negative) Urine Glucose (UA) 4+ H (Negative) Urine Ketones 1+ H (Negative) Urine Blood Small H (Negative) Urine RBC 6 H (0-5) /hpf 04/10/19 Range/Units 11:30 WBC (3.8-10.6) k/uL Neutrophils # (1.3-7.7) k/uL Lymphocytes # (1.0-4.8) k/uL Potassium (3.5-5.1) mmol/L Creatinine (0.66-1.25) mg/dL Glucose (74-99) mg/dL Magnesium 1.4 L (1.6-2.3) mg/dL Alkaline Phosphatase (38-126) U/L Amylase (30-110) U/L Urine Protein (Negative) Urine Glucose (UA) (Negative) Urine Ketones (Negative) Urine Blood (Negative) Urine RBC (0-5) /hpf Assessment and Plan Plan: Opiate withdrawal -Resume home dose of patient's Oxycontin after confirmation of dose -Anti-emetics -IVFs Dehydration -C/w IVFs Severe hypokalemia -Replace and monitor Hypomagnesemia -Replace and monitor Type 2 DM with hyperglycemia -LOBO with FS -C/w Lantus 25 U qhs (home dose) -Hold oral hypoglycemics HLD -C/w Lipitor HTN -C/w Lisinopril, Norvasc, Clonidine DVT prophylaxis -Lovenox The patient is admitted with an anticipated less than 2 midnight stay for evaluation of opiate withdrawal CODE STATUS: Full Code Discussed with: Patient, Daughter Anticipated discharge date: 1-[address]: Home A total of 35 minutes was spent on the care of this complex patient more than 50% of the time was spent in counseling and care coordination.
[2019-04-10 16:47] LABS: Glucose,Whole Blood 156 mg/dL (75-99)
[2019-04-10] MEDS: INSULIN ASPART (NovoLOG) 100 UNIT/ML VIAL SQ SCH (17:01)
[2019-04-10] MEDS: amLODIPine 10 MG TAB PO SCH (19:35)
[2019-04-10 20:17] LABS: Glucose,Whole Blood 179 mg/dL (75-99)
[2019-04-10] MEDS: oxyCODONE ER 80 MG TAB.ER.12H PO SCH (20:39)
[2019-04-10] MEDS ORDERED: POTASSIUM CHLORIDE 10 MEQ in WATER FOR INJECTION 1 100ML.BAG IVPB SCH (21:00)
[2019-04-10] MEDS ORDERED: cloNIDine HCL 0.1 MG TAB PO SCH (21:00)
[2019-04-10] MEDS: INSULIN DETEMIR (LEVEMIR) 100 UNIT/ML SYR SQ SCH (21:06)
[2019-04-10] MEDS ORDERED: LIDOCAINE 1% IVPB SCH ×2 (22:00)
[2019-04-10] MEDS ORDERED: POTASSIUM CHLORIDE 10 MEQ IVPB SCH ×2 (22:00)
[2019-04-10] MEDS ORDERED: POTASSIUM CHLORIDE 100 ML IV SCH (22:00)
[2019-04-10] MEDS ORDERED: [UNRECOGNIZED DRUG - OTHER] IVPB SCH ×2 (22:00)
[2019-04-10] MEDS: POTASSIUM CHLORIDE ER 20 MEQ TAB.ER PO SCH (23:47)
[2019-04-11] MEDS ORDERED: cloNIDine HCL 0.2 MG TAB PO STA (01:20)
[2019-04-11] MEDS: POTASSIUM CHLORIDE ER 20 MEQ TAB.ER PO SCH ×3 (01:31→14:55)
[2019-04-11 06:14] LABS: Glucose,Whole Blood 139 mg/dL (75-99)
[2019-04-11] MEDS: INSULIN ASPART (NovoLOG) 100 UNIT/ML VIAL SQ SCH ×3 (06:42→17:32)
[2019-04-11 06:45] LABS: HCT 40.4 % (39.0-53.0); HGB 12.9 gm/dL (13.0-17.5); MCH 29.2 pg (25.0-35.0); MCHC 31.9 g/dL (31.0-37.0); MCV 91.5 fL (80.0-100.0); Mean Platelet Volume 6.7; Platelet Count 388 k/uL (150-450); RBC 4.42 m/uL (4.30-5.90); WBC 13.1 k/uL (3.8-10.6)
[2019-04-11 06:55] LABS: Magnesium 1.6 mg/dL (1.6-2.3); Potassium 3.3 mmol/L (3.5-5.1)
[2019-04-11] MEDS ORDERED: Potassium Replacement Protocol 1 EACH MISC MISCELLANE PRN ×2 (08:11→10:01)
[2019-04-11] MEDS: oxyCODONE ER 80 MG TAB.ER.12H PO SCH ×2 (08:20→20:17)
[2019-04-11] MEDS: amLODIPine 10 MG TAB PO SCH (08:20)
[2019-04-11] MEDS: cloNIDine HCL 0.2 MG TAB PO SCH ×2 (08:20→20:18)
[2019-04-11] MEDS: ENOXAPARIN 40 MG/0.4 ML SYRINGE SQ SCH (08:21)
[2019-04-11 12:08] LABS: Glucose,Whole Blood 277 mg/dL (75-99)
[2019-04-11 16:55] LABS: Glucose,Whole Blood 131 mg/dL (75-99)
--- NOTE | 2019-04-11 17:39 | P.PN ---
Subjective Progress Note Date: 04/11/19 Principal diagnosis: Opiate withdrawal Patient was seen and examined. No acute events overnight. Patient reports considerable improvement in his symptoms. He denies any complaints of nausea. His pain is well-controlled with current medications. Patient states that he sees [facility] for his pain management and is currently on oxycodone and [place]. He has a follow-up appointment on April 15. Objective - Vital Signs Vital signs: Vital Signs Temp 97.9 F 04/11/19 08:00 Pulse 72 04/11/19 15:36 Resp 16 04/11/19 15:36 BP 93/55 04/11/19 15:36 Pulse Ox 97 04/11/19 15:36 Intake & Output 04/10/19 04/11/19 04/11/19 18:59 06:59 18:59 Intake Total 795 Output Total 758 297 6857 Balance -800 -180 -205 Weight 75.9 kg 75.1 kg Intake: Intake, IV Titration 75 Amount Sodium Chloride 0.9% 1, 75 000 ml @ 75 mls/hr IV . [id number] [facility] Rx#:[id number] Oral 720 Output: Urine 104 397 3866 Emesis 200 Other: Voiding Method Urinal Urinal # Voids 1 - Exam General: [non toxic], [no distress], [appears at stated age] Derm: [warm], [dry] Head: [atraumatic], [normocephalic], [symmetric] Eyes: [EOMI], [no lid lag], [anicteric sclera] Mouth: [no lip lesion], [mucus membranes moist] Cardiovascular: [S1S2 reg], [no murmur], [positive DP pulse bilateral], Lungs: [CTA bilateral], [no rhonchi, no rales] , [no accessory muscle use] Abdominal: [soft], [ nontender to palpation], [no guarding], [no appreciable organomegaly] Ext: [no gross muscle atrophy], [no edema], [no contractures] Neuro: [no focal neuro deficits] Psych: [Alert], [oriented], [appropriate affect] - Labs CBC & Chem 7: 04/11/19 06:02 04/11/19 15:46 Labs: Abnormal Lab Results - Last 24 Hours (Table) 04/10/19 04/10/1904/10/20 Range/Units 16:33 19:55 20:15 WBC (3.8-10.6) k/uL Hgb (13.0-17.5) gm/dL Potassium 2.7 L* (3.5-5.1) mmol/L POC Glucose (mg/dL) 156 H 179 H (75-99) mg/dL Hemoglobin A1c (4.0-6.0) % 04/11/19 04/11/19 04/11/19 Range/Units 06:02 06:02 06:02 WBC 13.1 H (3.8-10.6) k/uL Hgb 12.9 L (13.0-17.5) gm/dL Potassium 3.3 L (3.5-5.1) mmol/L POC Glucose (mg/dL) (75-99) mg/dL Hemoglobin A1c 9.0 H (4.0-6.0) % 04/11/19 04/11/19 Range/Units 06:13 11:57 WBC (3.8-10.6) k/uL Hgb (13.0-17.5) gm/dL Potassium (3.5-5.1) mmol/L POC Glucose (mg/dL) 139 H 277 H (75-99) mg/dL Hemoglobin A1c (4.0-6.0) % Assessment and Plan Assessment: Opiate withdrawal Hypokalemia Type 2 diabetes with hyperglycemia Hypertension Dyslipidemia Patient's condition is considerably improved after starting home dose of oxycodone. He still has no access to his medication and his appointment is scheduled for 04/15/2019. His potassium of 3.3 was replaced and was within normal limits on recheck. Plan to repeat CBC for leukocytosis tomorrow along with BMP to recheck potassium. Continue insulin sliding scale for diabetes with hyperglycemia. Blood pressure is under control. Likely discharge tomorrow pending clinical improvement.
[2019-04-11] MEDS: SODIUM CHLORIDE 0.9% 1,000 ML IV SCH (19:48)
[2019-04-11 20:04] LABS: Glucose,Whole Blood 301 mg/dL (75-99)
[2019-04-11] MEDS: INSULIN DETEMIR (LEVEMIR) 100 UNIT/ML SYR SQ SCH (21:01)
[2019-04-12] MEDS: SODIUM CHLORIDE 0.9% 1,000 ML IV SCH (02:12)
[2019-04-12 06:57] LABS: Glucose,Whole Blood 183 mg/dL (75-99)
[2019-04-12 07:49] LABS: HGB 12.6 gm/dL (13.0-17.5); MCH 29.1 pg (25.0-35.0); MCHC 31.5 g/dL (31.0-37.0); MCV 92.6 fL (80.0-100.0); Mean Platelet Volume 6.8; Platelet Count 342 k/uL (150-450); RBC 4.32 m/uL (4.30-5.90); WBC 10.4 k/uL (3.8-10.6)
[2019-04-12 08:03] LABS: African American GFR (CKD) >90 (>60 ml/min/1.73 sqM); Anion Gap 6 mmol/L; Blood Urea Nitrogen 18 mg/dL (9-20); Calcium 8.8 mg/dL (8.4-10.2); Carbon Dioxide 27 mmol/L (22-30); Chloride 103 mmol/L (98-107); Glucose 187 mg/dL (74-99); Non-African American GFR(CKD) >90 (>60 ml/min/1.73 sqM); Potassium 3.6 mmol/L (3.5-5.1); Sodium 136 mmol/L (137-145)
[2019-04-12] MEDS: INSULIN ASPART (NovoLOG) 100 UNIT/ML VIAL SQ SCH ×2 (08:08→12:26)
[2019-04-12] MEDS: cloNIDine HCL 0.2 MG TAB PO SCH (08:08)
[2019-04-12] MEDS: ENOXAPARIN 40 MG/0.4 ML SYRINGE SQ SCH (08:08)
[2019-04-12] MEDS: amLODIPine 10 MG TAB PO SCH (08:08)
[2019-04-12] MEDS: oxyCODONE ER 80 MG TAB.ER.12H PO SCH (08:32)
[2019-04-12] MEDS ORDERED: POTASSIUM CHLORIDE ER 20 MEQ TAB.ER PO STA (11:12)
[2019-04-12 11:43] LABS: Glucose,Whole Blood 235 mg/dL (75-99)
--- NOTE | 2019-04-12 13:09 | P.DS ---
Providers Date of admission: 04/10/19 11:23 Expected date of discharge: 04/12/19 Attending physician: Sanjiv Workman MD Primary care physician: Dexter [facility] Course: Patient is a 62-year-old male with a PMH of poorly controlled type 2 diabetes mellitus, hypertension, hyperlipidemia, coronary artery disease status post PCI 5, chronic lower back and bilateral leg pain after an injury (on chronic opiates - follows with a pain clinic), presented to the ED for opiate withdrawal. The patient reports that for the past 3-4 days, he has not been able to take his OxyContin since he ran out early. The patient is unsure as to what happened to his medications and feels that a family member might have stolen them. The patient reports diffuse pain with nausea. He denied chest pain, fever, chills, vomiting, diarrhea. Patient underwent an extensive evaluation in the emergency room with an EKG that revealed sinus tachycardia at 108 bpm, left axis deviation, with no acute ischemic changes noted. Laboratory evaluation revealed WBC count of 12.8, hemoglobin of 15.8, platelets of 433, potassium 2.6, magnesium 1.4, glucose 255, sodium 142, BUN 19, creatinine 0.62. Patient is admitted to the medicine service for dehydration, multiple electrolyte derangements, and opiate withdrawal. Patient's withdrawal symptoms subsided after being started on oxycodone home dose. Patient was noted to be hypokalemic which was replaced. Repeat potassium was within normal limits on discharge. Patient was seen and examined. No acute events overnight. Patient with no complains. He denies any chest or shortness of breath or palpitations. No nausea or vomiting. No fever or chills. General: [non toxic], [no distress], [appears at stated age] Derm: [warm], [dry] Head: [atraumatic], [normocephalic], [symmetric] Eyes: [EOMI], [no lid lag], [anicteric sclera] Mouth: [no lip lesion], [mucus membranes moist] Cardiovascular: [S1S2 reg], [no murmur], [positive DP pulse bilateral], Lungs: [CTA bilateral], [no rhonchi, no rales] , [no accessory muscle use] Abdominal: [soft], [ nontender to palpation], [no guarding], [no appreciable organomegaly] Ext: [no gross muscle atrophy], [no edema], [no contractures] Neuro: [no focal neuro deficits] Psych: [Alert], [oriented], [appropriate affect] Opiate withdrawal Hypokalemia Type 2 diabetes with hyperglycemia Hypertension Dyslipidemia I was able to call his pain clinic at [facility] and schedule an appointment for tomorrow at 10:30 in the morning in [place]. We will give him 1 dose of methadone which is long-acting and should hold him down until his follow-up tomorrow morning. His symptoms have completely resolved. His potassium is within normal limits. His leukocytosis has resolved. Plan is to discharge patient today. Patient Condition at Discharge: Stable Plan - Discharge Summary Discharge Rx Participant: No New Discharge Prescriptions: Continue oxyCODONE ER [OxyCONTIN] 80 mg PO BID amLODIPine [Norvasc] 10 mg PO DAILY #30 tab metFORMIN HCL [Glucophage] 500 mg PO BID #60 tab glipiZIDE [Glipizide] 5 mg PO BID cloNIDine HCL [Catapres] 0.1 mg PO BID Atorvastatin [Lipitor] 40 mg PO DAILY DULoxetine HCL [Cymbalta] 60 mg PO BID Lisinopril [Zestril] 20 mg PO DAILY #30 tab Insulin Glargine [Lantus] 25 unit SQ DAILY Discharge Medication List oxyCODONE ER [OxyCONTIN] 80 mg PO BID 03/26/14 [History] amLODIPine [Norvasc] 10 mg PO DAILY #30 tab 04/04/14 [Rx] metFORMIN HCL [Glucophage] 500 mg PO BID #60 tab 04/05/14 [Rx] glipiZIDE [Glipizide] 5 mg PO BID 03/20/15 [History] Atorvastatin [Lipitor] 40 mg PO DAILY 10/03/17 [History] cloNIDine HCL [Catapres] 0.1 mg PO BID 10/03/17 [History] DULoxetine HCL [Cymbalta] 60 mg PO BID 02/10/19 [History] Lisinopril [Zestril] 20 mg PO DAILY #30 tab 02/11/19 [Rx] Insulin Glargine [Lantus] 25 unit SQ DAILY 02/17/19 [History] Follow up Appointment(s)/Referral(s): Dexter Ji DO [Primary Care Provider] - 1-2 days (Please call office for your follow up appointment) Activity/Diet/Wound Care/Special Instructions: Follow-up with your PCP within 3 days of discharge. Follow-up with [facility] in [place] tomorrow at 10:30 in the morning. Take all m edications as advised. Discharge Disposition: HOME SELF-CARE
[2019-04-12] MEDS ORDERED: oxyCODONE ER 80 MG TAB.ER.12H PO STA (13:12)
[2019-04-12 14:42] VITALS: BP 152/76; PULSE 78; RESP 16; TEMP 97.7
[2019-04-12 15:06] VITALS: BMI 25.9
== END 2019-04-12 16:01 | disposition home or self-care (01) ==
LOC: EC 09:26 → INTOOBSV 11:23 → 3SCARD 11:23 → 4SSUR 04-12 03:03
PROVIDERS: ADMIT Internal Medicine; ATTEND Internal Medicine
DX: F11.23 Opioid dependence with withdrawal (principal); E11.65 Type 2 diabetes mellitus with hyperglycemia; E78.5 Hyperlipidemia, unspecified; E83.42 Hypomagnesemia; E86.0 Dehydration; E87.6 Hypokalemia; I10 Essential (primary) hypertension; I25.10 Atherosclerotic heart disease of native coronary artery without angina pectoris; Z79.4 Long term (current) use of insulin; Z79.899 Other long term (current) drug therapy; Z82.49 Family history of ischemic heart disease and other diseases of the circulatory system; Z83.3 Family history of diabetes mellitus; Z87.891 Personal history of nicotine dependence; Z95.5 Presence of coronary angioplasty implant and graft; G89.29 Other chronic pain; M54.5 Low back pain; M79.604 Pain in right leg; M79.605 Pain in left leg
CPT/HCPCS: 96372 ×2; 96376; 96361 ×3; 96366 ×2; 96368; 96365; 96375; 99285; 36415; 93005; 80053; 80048; 82150; 82009; 83690; 83735 ×2; 84132 ×2; 85025; 85027 ×2; 81001; 83036; G0378 ×4; J2270; J1200; J2765; J3480 ×2; J2405; J1650 ×2; J3475

== ENCOUNTER 2019-08-11 06:04 | Inpatient (IN) | payer MEDICARE ==
[2019-08-11] MEDS ORDERED: MORPHINE SULFATE 4 MG/ML SYRINGE IVP STA (06:10)
[2019-08-11] MEDS ORDERED: NITROGLYCERIN OINT 1 INCH/GM PACKET TOPICAL STA (06:12)
[2019-08-11] MEDS ORDERED: ONDANSETRON 4 MG/2 ML VIAL IVP STA ×2 (06:16→14:13)
[2019-08-11] MEDS ORDERED: LORazepam 2 MG/ML INJ IV STA (06:16)
--- NOTE | 2019-08-11 06:16 | ED ---
Chest Pain HPI <Jenise Davis - Last Filed: 08/11/19 09:05> <Manjula Mejia Ivan - Last Filed: 08/12/19 02:23> - General Stated Complaint: Chest Pain Time Seen by Provider: 08/11/19 06:04 - History of Present Illness Initial Comments: 64yo male with hx of DM, HTN, CAD with previous RI, presenting today for cc of chest pain--patient states that he was woken up from his sleep around 3AM from substernal chest pain-- he states it was a lot of pressure- he took 3 nitroglycerin tablets which did not seem to help as well as a baby aspirin. WHen pain persisted into the morning hours patient called EMS for transportation to the hospital. Patient continues to have chest pain states in center of chest as well as his back-patient rything around while obtaining history, given additional aspirin tablets for a total of 324mg. He also was given an additional nitro tablet in the EMS. Patient admits to some slight SOB. Denies fevers, cough, leg swelling, sick contacts. Patient denies abdominal pain but states pain is in mid/upper chest. Patient dry heaving on arrival. Patient admits to nausea. Denies diarrhea. Remaining ROS (-). (Jenise Davis) - Related Data Home Medications Medication Instructions Recorded Confirmed glipiZIDE [Glipizide] 5 mg PO BID 03/20/15 08/11/19 Atorvastatin [Lipitor] 40 mg PO DAILY 10/03/17 08/11/19 cloNIDine HCL [Catapres] 0.1 mg PO BID 10/03/17 08/11/19 Aspirin EC [Ecotrin Low Dose] 81 mg PO DAILY 08/11/19 08/11/19 Insulin Glargine,Hum.rec.anlog 25 unit SQ HS 08/11/19 08/11/19 [Basaglar Kwikpen U-100] Naloxegol Oxalate [Movantik] 25 mg PO DAILY 08/11/19 08/11/19 Previous Rx's Medication Instructions Recorded amLODIPine [Norvasc] 10 mg PO DAILY #30 tab 04/04/14 Allergies Allergy/AdvReac Type Severity Reaction Status Date / Time No Known Allergies Allergy Verified 08/11/19 14:12 Review of Systems ROS Other: All systems not noted in ROS Statement are negative. <Jenise Davis Stella - Last Filed: 08/11/19 09:05> ROS Other: All systems not noted in ROS Statement are negative. <Manjula Mejia - Last Filed: 08/12/19 02:23> ROS Statement: Those systems with pertinent positive or pertinent negative responses have been documented in the HPI. Past Medical History Past Medical History: Coronary Artery Disease (CAD), Chest Pain / Angina, Diabetes Mellitus, Hyperlipidemia, Hypertension Additional Past Medical History / Comment(s): Other HX: Chronic lower back pain and bilateral leg pain, History of Any Multi-Drug Resistant Organisms: None Reported Past Surgical History: Back Surgery, Heart Catheterization With Stent, Orthopedic Surgery Additional Past Surgical History / Comment(s): knee, ankle surgery-pt believes it was his R ankle. pt states he has a total of 5 heart stents Past Anesthesia/Blood Transfusion Reactions: No Reported Reaction Additional Past Anesthesia/Blood Transfusion Reaction / Comment(s): recieved blood after severe nose bleed, needed to be cauterized after recieving too much aspirin. Date of Last Stent Placement:: 02/2015 Smoking Status: Former smoker - Past Family History Sister(s) Family Medical History: Coronary Artery Disease (CAD), Hypertension Father Family Medical History: Coronary Artery Disease (CAD), Diabetes Mellitus, Deep Vein Thrombosis (DVT), Hypertension Additional Family Medical History / Comment(s): Father at age 58yrs. He of blood clot from leg injury that went to his heart. <Jenise Davis Stella - Last Filed: 08/11/19 09:05> Course Vital Signs 08/11/19 08/11/19 08/11/19 06:39 07:20 08:15 Temperature 98.3 F Pulse Rate 124 H 116 H 99 Respiratory 22 18 18 Rate Blood Pressure 167/102 168/93 146/84 O2 Sat by Pulse 98 97 97 Oximetry 08/11/19 09:05 Temperature 98.2 F Pulse Rate 93 Respiratory 18 Rate Blood Pressure 132/72 O2 Sat by Pulse 100 Oximetry Chest Pain MDM <Becca Davisorlando Douglas - Last Filed: 08/11/19 09:05> <Manjula Mejia - Last Filed: 08/12/19 02:23> - MDM 64yo male presenting for chest pain. Aspirin given in EMS as well as 4 doses nitroglycerin. Lipase WNL. CXR clear. CTA no dissection. Patient initial troponin (-). Given patient pressure/hx,PMH of CAD concerning for typical chest pain low intensity heparin initiated. Patient has mildly elevated glucose. Gap with lactic acidosis which is felt to be the cause of anion gap. Patient will have CMP drawn again after fluids. Patient is resting comfortably now, pain resolved. Patient case discussed with Dr. Mejia who reviewed laboratory studies is agreeable to care plan and admission. Patient agreeable. (Jenise Davis) I was available for consultation in the emergency department. The history and physical exam were done by the midlevel provider. I was consulted for this patients care. I reviewed the case with the midlevel provider and based on their presentation of the patient, I agree with the assessment, medical decision making and plan of care as documented. Chart was dictated using [employer] dictation software. Attempts were made to correct any dictation errors however some typographical errors may persist. Patient was seen during a national state of emergency due to the Covid-19 pandemic. (Manjula Mejia) Critical Care Time Critical Care Time: Yes <Manjula Mejia - Last Filed: 08/12/19 02:23> Critical Care Time: 35 minutes due to heparin initiation (Manjula Mejia) Disposition Is patient prescribed a controlled substance at d/c from ED?: No Time of Disposition: 08:18 Decision to Admit Reason: Admit from EC Decision Date: 08/11/19 Decision Time: 08:18 <Jenise Davis - Last Filed: 08/11/19 09:05> <Manjula Mejia - Last Filed: 08/12/19 02:23> Clinical Impression: Chest pain, Leukocytosis, Tachycardia, Hypokalemia, Hypomagnesemia, Lactic acidosis, Urine ketones Disposition: ADMITTED IP TO THIS HOSP Condition: Serious
[2019-08-11] MEDS ORDERED: HYDROmorphone 1 MG/ML 1 ML SYRINGE IVP STA (06:38)
--- NOTE | 2019-08-11 06:38 | XR ---
EXAM: XR Chest, 2 Views CLINICAL HISTORY: ITS.REASON XR Reason: Chest Pain TECHNIQUE: Frontal and lateral views of the chest. COMPARISON: 08/15/2017 FINDINGS: Lungs: No definite focal consolidation. Evaluation of the lateral projection is slightly limited by obliquity. The pulmonary vasculature demonstrates no significant radiographic abnormality. Pleural space: Unremarkable. No pneumothorax. No large pleural effusion. Heart: Unremarkable. No cardiomegaly. Mediastinum: Unremarkable. No significant abnormality identified. The trachea is midline. Bones/joints: Multilevel degenerative changes involving thoracic spine, stable. IMPRESSION: No focal consolidation or acute cardiopulmonary process identified.
[2019-08-11 06:49] LABS: Basophils # (A) 0.1 k/uL (0-0.2); Basophils % (A) 0 %; Eosinophils # (A) 0.2 k/uL (0-0.7); Eosinophils % (A) 1 %; HCT 49.1 % (39.0-53.0); HGB 16.1 gm/dL (13.0-17.5); Lymphocytes # (A) 1.5 k/uL (1.0-4.8); Lymphocytes % (A) 9 %; MCH 29.9 pg (25.0-35.0); MCHC 32.7 g/dL (31.0-37.0); MCV 91.2 fL (80.0-100.0); Mean Platelet Volume 8.3; Monocytes # (A) 0.9 k/uL (0-1.0); Monocytes % (A) 5 %; Neutrophils # (A) 13.5 k/uL (1.3-7.7); Neutrophils % (A) 83 %; Platelet Count 301 k/uL (150-450); RBC 5.38 m/uL (4.30-5.90); RDW 14.9 % (11.5-15.5); WBC 16.3 k/uL (3.8-10.6)
[2019-08-11 06:58] LABS: ALT 15 U/L (4-49); AST 20 U/L (17-59); African American GFR (CKD) >90 (>60 ml/min/1.73 sqM); Alkaline Phosphatase 159 U/L (38-126); Anion Gap 19 mmol/L; Blood Urea Nitrogen 14 mg/dL (9-20); Calcium 10.7 mg/dL (8.4-10.2); Carbon Dioxide 19 mmol/L (22-30); Chloride 102 mmol/L (98-107); Glucose 251 mg/dL (74-99); Magnesium 1.5 mg/dL (1.6-2.3); Non-African American GFR(CKD) >90 (>60 ml/min/1.73 sqM); Potassium 3.3 mmol/L (3.5-5.1); Sodium 140 mmol/L (137-145); Total Bilirubin 0.7 mg/dL (0.2-1.3); Total Protein 8.3 g/dL (6.3-8.2)
--- NOTE | 2019-08-11 07:28 | CT ---
EXAMINATION TYPE: CT angio thor/abd pel aorta DATE OF EXAM: 08/11/2019 COMPARISON: Prior CT 02/10/2019 HISTORY: chest pain CT DLP: 1693.1 mGycm. Automated Exposure Control for Dose Reduction was Utilized. CONTRAST: CT scan of the thorax, abdomen and pelvis is performed without and with IV Contrast, patient injected with 100 mL of Isovue 370. Three-dimensional reconstructions performed on an alternate workstation. FINDINGS: LUNGS: The lungs are grossly clear, there is no concerning parenchymal mass or nodule identified. T here is no pleural effusion or pneumothorax seen. The tracheobronchial tree is patent. MEDIASTINUM: There are no greater than 1 cm hilar or mediastinal lymph nodes. No pericardial effusi on is seen. The aorta is not aneurysmal. There is no evident embolus. Atheromatous changes are present in the aor toiliac distribution. There is no dissection. For super aortic branch vessels are present. Left and r ight vertebral arteries are present and patent proximally, left and right common carotid arteries are patent proximally, innominate artery, occipital left and right subclavian arteries, celiac axis, sup erior mesenteric artery, inferior mesenteric artery, renal arteries, left and right common iliac, int ernal and external iliac, common femoral arteries are patent. Proximal deep and superficial femoral a rteries are patent. There is likely stenosis of the proximal superficial femoral artery bilaterally. There is some mild prominence of pulmonary artery. Coronary artery calcifications are present. LIVER/GB: Liver is borderline enlarged. Gallbladder is unremarkable. PANCREAS: No significant abnorma lity is seen. SPLEEN: No significant abnormality is seen. ADRENALS: Stable. KIDNEYS: No significant table change is seen. BOWEL: No significant interval change is seen. Colonic interposition noted anterior to the liver. GENITAL ORGANS: No change seen. Prostate shows associated calcifications LYMPH NODES: No greater than 1cm abdominal or pelvic lymph nodes are appreciated. OSSEOUS STRUCTURES: Degenerative disc changes, facet arthropathy noted within the visualized spine. P ostop changes are noted with laminectomies of the lumbar spine. Multilevel Schmorl's node formation p resent at multiple endplates in the thoracic and lumbar spine. OTHER: No significant additional abnormality is seen. IMPRESSION: Aorta shows normal caliber, no evident dissection or aneurysm. Coronary artery disease. C orrelate for possible pulmonary artery hypertension. Postop changes. Peripheral vascular occlusive di sease. Additional findings above. No acute osseous fracture, abnormal fluid collection, or evidence o f solid organ injury in the thorax, abdomen, or pelvis.
[2019-08-11] MEDS ORDERED: SODIUM CHLORIDE 0.9% 500 ML 500 ML IV ONE ×2 (07:37→08:55)
[2019-08-11] MEDS ORDERED: SODIUM CHLORIDE 0.9% 1,000 ML IV ONE ×2 (07:37→08:55)
[2019-08-11] MEDS ORDERED: PIPERACILLIN-TAZOBACTAM 3.375 GM in SODIUM CHLORIDE 0.9% 100 ML IVPB STA (07:37)
[2019-08-11 07:39] LABS: Partial Thromboplastin Time 25.5 sec (22.0-30.0)
[2019-08-11] MEDS ORDERED: NITROGLYCERIN SL TABS 0.4 MG TAB SUBLINGUAL PRN (07:58)
[2019-08-11] MEDS ORDERED: POTASSIUM CHLORIDE ER 10 MEQ TAB.ER.PRT PO STA (08:17)
[2019-08-11] MEDS ORDERED: HEPARIN SODIUM,PORCINE 5,000 UNIT/ML 1 ML VIAL IV PRN (08:18)
[2019-08-11] MEDS ORDERED: HEPARIN SODIUM,PORCINE 5,000 UNIT/ML 1 ML VIAL IV ONE (08:18)
[2019-08-11 08:34] LABS: Appearance,Urine Clear (Clear); Bilirubin,Urine Negative (Negative); Blood,Urine Small (Negative); Color,Urine Light Yellow; Glucose,Urine (UA) 4+ (Negative); Leukocyte Esterase,Urine Negative (Negative); Nitrite,Urine Negative (Negative); PH, Urine 6.5 (5.0-8.0); Protein,Urine 2+ (Negative); RBC,Urine 8 /hpf (0-5); Specific Gravity,Urine 1.044 (1.001-1.035); Urobilinogen,Urine <2.0 mg/dL (<2.0); WBC,Urine 3 /hpf (0-5)
[2019-08-11] MEDS: HEPARIN SOD,PORK IN 0.45% NACL 25,000 UNIT in 0.45% NACL 1 250ML.BAG IV SCH (08:42)
[2019-08-11 08:47] LABS: Ketones,Urine 2+ (Negative)
[2019-08-11] MEDS: SODIUM CHLORIDE 0.9% 1,000 ML IV SCH ×2 (08:59→15:05)
[2019-08-11] MEDS: amLODIPine 10 MG TAB PO SCH (11:23)
[2019-08-11 11:29] LABS: Glucose,Whole Blood 161 mg/dL (75-99)
[2019-08-11 12:06] LABS: Basophils % (A) 0 %; Eosinophils % (A) 0 %; HCT 42.2 % (39.0-53.0); Lymphocytes % (A) 8 %; MCH 28.8 pg (25.0-35.0); MCHC 31.1 g/dL (31.0-37.0); MCV 92.7 fL (80.0-100.0); Mean Platelet Volume 7.3; Monocytes # (A) 0.5 k/uL (0-1.0); Monocytes % (A) 4 %; Neutrophils # (A) 11.7 k/uL (1.3-7.7); Neutrophils % (A) 88 %; Platelet Count 375 k/uL (150-450); RBC 4.55 m/uL (4.30-5.90); WBC 13.3 k/uL (3.8-10.6)
[2019-08-11 12:16] LABS: ALT 12 U/L (4-49); AST 19 U/L (17-59); African American GFR (CKD) >90 (>60 ml/min/1.73 sqM); Albumin 3.6 g/dL (3.5-5.0); Alkaline Phosphatase 98 U/L (38-126); Anion Gap 8 mmol/L; Blood Urea Nitrogen 12 mg/dL (9-20); Calcium 8.9 mg/dL (8.4-10.2); Carbon Dioxide 24 mmol/L (22-30); Chloride 107 mmol/L (98-107); Glucose 169 mg/dL (74-99); Non-African American GFR(CKD) >90 (>60 ml/min/1.73 sqM); Potassium 3.7 mmol/L (3.5-5.1); Sodium 139 mmol/L (137-145); Total Bilirubin 0.5 mg/dL (0.2-1.3); Total Protein 6.4 g/dL (6.3-8.2)
[2019-08-11 12:17] LABS: HGB 13.1 gm/dL (13.0-17.5)
[2019-08-11] MEDS: MAGNESIUM SULFATE-D5W PMX 1 GM in DEXTROSE/WATER 1 100ML.BAG IVPB SCH ×2 (14:16→15:55)
[2019-08-11] MEDS ORDERED: METOPROLOL TARTRATE 5 MG/5 ML VIAL IVP ONE (14:40)
[2019-08-11] MEDS: NADOLOL 20 MG TAB PO SCH ×2 (14:46→20:19)
[2019-08-11] MEDS ORDERED: METOPROLOL TARTRATE 5 MG/5 ML VIAL IVP PRN (14:47)
[2019-08-11] MEDS ORDERED: METOCLOPRAMIDE 5 MG/ML 2 ML VIAL IVP STA (14:50)
[2019-08-11 15:33] LABS: D-Dimer 0.18 mg/L FEU (<0.60)
--- NOTE | 2019-08-11 16:04 | CONS ---
ALEJANDRO Pulido is a 64-year-old gentleman with history of coronary artery disease, status post angioplasty of right coronary artery in 2015, hypertension, diabetes and dyslipidemia who presented to hospital complaining of chest pain. He describes it as a precordial chest pressure, moderate intensity, associated with some shortness of breath. The patient woke up from sleep around 3:00 early this morning, took sublingual nitroglycerin secondary to chest pain, did not improve, came to the hospital. He became gradually pain-free in the hospital, and at the time of my evaluation he is pain- free and he is actually sleeping soundly. First set of troponin is negative. EKG does not reveal any acute ST-segment elevation. CT scan of the chest is negative for pulmonary embolism and aortic aneurysm. His common femoral arteries are patent bilaterally. The patient is currently being treated with aspirin, Lipitor, heparin and Norvasc. PAST MEDICAL HISTORY: His past medical history is significant for CAD, status post angioplasty, hypertension, diabetes, dyslipidemia. CURRENT MEDICATIONS: Current medications include Norvasc 10 daily, insulin, Cymbalta, Lipitor, Glucophage, glipizide, Catapres, Zestril and OxyContin. FAMILY HISTORY: Negative for premature coronary artery disease. SOCIAL HISTORY: Negative for current smoking, EtOH abuse or drug abuse. REVIEW OF SYSTEMS: HEENT is unremarkable. CARDIAC: As described above. RESPIRATORY: As described above. GI: Negative. GENITOURINARY: Negative. ALLERGY: Negative. SKIN: Negative. MUSCULOSKELETAL: Negative. ENDOCRINE: Negative. DERMATOLOGICAL: Negative. CONSTITUTIONAL: Negative. ONCOLOGICAL: Negative. WATERSHED MANAGER: Negative. Rest of the system review is not relevant. PHYSICAL EXAMINATION: Comfortable at rest. Vital signs are stable. There is no jugular venous distention. Chest exam reveals good air entry bilaterally. Heart exam reveals first and second heart sounds. No gallop. No murmur. No rub. Abdomen is soft, nontender. Examination of the extremities did not reveal any edema. Femoral pulses palpable. Distal pulses are diminished. LABS: Hemoglobin 13.1, potassium 3.7. Creatinine is 0.5. ASSESSMENT: 1. Unstable angina in a patient with known coronary artery disease, status post prior angioplasty of right coronary artery. 2. Hypertension. 3. Diabetes. 4. Dyslipidemia. PLAN: Patient will continue with current medications. He will need a cardiac catheterization tomorrow. He used to see Dr. Brandi Sweeney [facility]. I will perform the cardiac catheterization on him tomorrow. MMLAURA / IJN: [id number] /
[2019-08-11 16:42] LABS: Glucose,Whole Blood 225 mg/dL (75-99)
[2019-08-11] MEDS: oxyCODONE ER 80 MG TAB.ER.12H PO SCH (17:19)
[2019-08-11] MEDS ORDERED: LABETALOL 5 MG/ML VIAL MDV IVP STA (17:25)
[2019-08-11] MEDS ORDERED: ONDANSETRON 4 MG/2 ML VIAL IVP PRN (17:25)
[2019-08-11 20:03] LABS: Glucose,Whole Blood 243 mg/dL (75-99)
[2019-08-11] MEDS: DULoxetine HCL 60 MG CAPSULE.DR PO SCH (20:19)
[2019-08-11] MEDS: cloNIDine HCL 0.1 MG TAB PO SCH (20:19)
[2019-08-11] MEDS: INSULIN ASPART (NovoLOG) 100 UNIT/ML VIAL SQ SCH (20:23)
--- NOTE | 2019-08-11 22:13 | P.HPIM ---
History of Present Illness H&P Date: 08/11/19 Chief Complaint: Chest pain Patient is a 64-year-old male with a known history of coronary artery disease and multiple stent placement, diabetes type 2, hypertension, hyperlipidemia, chronic low back pain and previous history of smoking came to ER with the complaints of chest pain. Patient states that as soon as he woke up at around 3 AM in the morning he had back pain and going into his chest. Patient tried to take nitroglycerin sublingual tablets at home but did not help with that. Patient also took baby aspirin. Pain has been persistent crushing type along with dry heaves which has been present since morning, EMS was called and patient was brought to the hospital. Chest pain is mainly retrosternal. Denies any radiation of the pain. Associate with mild shortness of breath. No headache or dizziness or lightheadedness. No diaphoresis. Otherwise patient denied any complaints of cough or sputum production. No fever no chills. No recent illnesses or sick contacts. Chest x-ray showed no focal consolidation or acute cardiopulmonary process. CT thoracic aorta showed normal caliber, no evident dissection or aneurysm. Co ronary artery disease. Correlate for possible pulmonary hypertension. Postop changes. Peripheral vascular occlusive disease no acute osseous fracture, abnormal fluid collection, or evidence of solid organ injury in the thorax, abdomen, pelvis. EKG showed sinus tachycardia. WBC 16.3, hemoglobin 16.1, platelets 301 Sodium 140, potassium 3.3, bicarb is 19 and anion gap 19 and creatinine level 0.62 Blood sugar 251 on admission Lactic acid 3.6 Calcium 10.7 and magnesium 1.5 Troponin x1- Urinalysis showed increased was to gravity 2+ protein 4+ glucose and ketones positive. Acetone positive COVID-19 PCR negative D dimer not elevated. TSH WNL Review of Systems Constitutional: no fevers and chills.. No generalized weakness or weight loss. Abdomen: Patient denied nausea vomiting and diarrhea and abdominal pain. Cardiovascular: Patient does have chest pain anf mild short of breath no palpitations. Respiratory: patient denied any cough is from production. No shortness of breath Neurologic: Patient denied any numbness or tingling headache. Musculoskeletal: Patient denies any complaints of joint swelling or deformity. Skin: Itching. Psychiatric: negative. Endocrine: No heat or cold intolerance. No recent weight gain. Genitourinary: No dysuria or hematuria. All other 14 point ROS negative except the above Past Medical History Past Medical History: Coronary Artery Disease (CAD), Chest Pain / Angina, Iesha betes Mellitus, Hyperlipidemia, Hypertension Additional Past Medical History / Comment(s): Other HX: Chronic lower back pain and bilateral leg pain, History of Any Multi-Drug Resistant Organisms: None Reported Past Surgical History: Back Surgery, Heart Catheterization With Stent, Orthopedic Surgery Additional Past Surgical History / Comment(s): knee, ankle surgery-pt believes it was his R ankle. pt states he has a total of 5 heart stents Past Anesthesia/Blood Transfusion Reactions: No Reported Reaction Additional Past Anesthesia/Blood Transfusion Reaction / Comment(s): recieved blood after severe nose bleed, needed to be cauterized after recieving too much aspirin. Date of Last Stent Placement:: 02/2015 Smoking Status: Former smoker - Past Family History Sister(s) Family Medical History: Coronary Artery Disease (CAD), Hypertension Father Family Medical History: Coronary Artery Disease (CAD), Diabetes Mellitus, Deep Vein Thrombosis (DVT), Hypertension Additional Family Medical History / Comment(s): Father at age 58yrs. He of blood clot from leg injury that went to his heart. Medications and Allergies Home Medications Medication Instructions Recorded Confirmed Type amLODIPine [Norvasc] 10 mg PO DAILY #30 tab 04/04/14 08/11/19 Rx glipiZIDE [Glipizide] 5 mg PO BID 03/20/15 08/11/19 History Atorvastatin [Lipitor] 40 mg PO DAILY 10/03/17 08/11/19 History cloNIDine HCL [Catapres] 0.1 mg PO BID 10/03/17 08/11/19 History Aspirin EC [Ecotrin Low Dose] 81 mg PO DAILY 08/11/19 08/11/19 History Insulin Glargine,Hum.rec.anlog 25 unit SQ HS 08/11/19 08/11/19 History [Basaglar Kwikpen U-100] Naloxegol Oxalate [Movantik] 25 mg PO DAILY 08/11/19 08/11/19 History Allergies Allergy/AdvReac Type Severity Reaction Status Date / Time No Known Allergies Allergy Verified 08/11/19 14:12 Physical Exam Vitals: Vital Signs Temp Pulse Resp BP Pulse Ox 08/11/19 09:05 98.2 F 93 18 132/72 100 08/11/19 08:15 99 18 146/84 97 08/11/19 07:20 116 H 18 168/93 97 08/11/19 06:39 98.3 F 124 H 22 167/102 98 Intake and Output 08/10/19 08/11/19 08/11/19 22:59 06:59 14:59 Other: Weight 77.111 kg PHYSICAL EXAMINATION: Patient is lying in the bed comfortably, no acute distress, awake alert and oriented.. HEENT: Normocephalic. Neck is supple. Pupils reactive. Nostrils clear. Oral cavity is moist. Ears reveal no drainage. Neck reveals no JVD, carotid bruits, or thyromegaly. CHEST EXAMINATION: Trachea is central. Symmetrical expansion.Bibasilar diminished air entry and no wheezing.Nonlabored breathing... CARDIAC: Normal S1, S2 with no gallops. No murmurs ABDOMEN: Soft. Bowel sounds normal. No organomegaly. No abdominal bruits. Extremities: reveal no edema. No clubbing or cyanosis Neurologically awake, alert, oriented x3 with well-coordinated movements. No focal deficits noted Skin: No rash or skin lesions. Psychiatric: Coperative. non suicidal. Musculoskeletal: No joint swelling or deformity. Normal range of motion. Results CBC & Chem 7: 08/11/19 11:45 08/11/19 11:08 Labs: Abnormal Lab Results - Last 24 Hours (Table) 08/11/19 08/11/19 08/11/19 Range/Units 06:19 06:19 07:01 WBC 16.3 H (3.8-10.6) k/uL Neutrophils # 13.5 H (1.3-7.7) k/uL Potassium 3.3 L (3.5-5.1) mmol/L Carbon Dioxide 19 L (22-30) mmol/L Creatinine 0.62 L (0.66-1.25) mg/dL Glucose 251 H (74-99) mg/dL Plasma Lactic Acid Chinedu 3.6 H* (0.7-2.0) mmol/L Calcium 10.7 H (8.4-10.2) mg/dL Magnesium 1.5 L (1.6-2.3) mg/dL Alkaline Phosphatase 159 H (38-126) U/L Total Protein 8.3 H (6.3-8.2) g/dL Ur Specific [place] (1.001-1.035) Urine Protein (Negative) Urine Glucose (UA) (Negative) Urine Ketones (Negative) Urine Blood (Negative) Urine RBC (0-5) /hpf 08/11/19 Range/Units 08:20 WBC (3.8-10.6) k/uL Neutrophils # (1.3-7.7) k/uL Potassium (3.5-5.1) mmol/L Carbon Dioxide (22-30) mmol/L Creatinine (0.66-1.25) mg/dL Glucose (74-99) mg/dL Plasma Lactic Acid Hcinedu (0.7-2.0) mmol/L Calcium (8.4-10.2) mg/dL Magnesium (1.6-2.3) mg/dL Alkaline Phosphatase (38-126) U/L Total Protein (6.3-8.2) g/dL Ur Specific [place] 1.044 H (1.001-1.035) Urine Protein 2+ H (Negative) Urine Glucose (UA) 4+ H (Negative) Urine Ketones 2+ H (Negative) Urine Blood Small H (Negative) Urine RBC 8 H (0-5) /hpf Thrombosis Risk Factor Assmnt - DVT/VTE Prophylaxis DVT/VTE Prophylaxis: Pharmacologic Prophylaxis ordered Assessment and Plan Assessment: Chest pain possible unstable angina. Acute diabetic ketoacidosis. Anion gap closed now Hypertensive urgency Leukocytosis likely due to reactive rule out infection. Chest x-ray and UA are negative. Lactic acidosis due to volume depletion. Hypomagnesemia Coronary artery disease with history of multiple stent placement Diabetes type 2 insulin-dependent Hypertension uncontrolled. Chronic back pain Hyperlipidemia Previous history of smoking DVT prophylaxis patient is already on heparin drip Plan: Patient is being continued on heparin drip. Continue with serial troponins and EKGs. Cardiology was consulted. Planning for cath tomorrow. Patient will be started on Levemir and add preprandial insulin. Continue with insulin sliding scale for better blood sugar control. Titrate dose as needed. A1c level. Patient will be started back on home blood pressure medications and was given IV labetalol today afternoon. Continue with IV hydration and follow-up closely. Continue with pain management due to chronic back pain. Monitor CBC and BMP tomorrow. No source of infection noted. Patient was given a dose of Zosyn in the ER. Will monitor closely. Not added any antibiotics. Cardiology is following. Further recommendations based on the clinical course. Time with Patient: Greater than 30
[2019-08-12] MEDS: INSULIN ASPART (NovoLOG) 100 UNIT/ML VIAL SQ SCH ×8 (02:23→20:37)
[2019-08-12 05:47] LABS: Glucose,Whole Blood 159 mg/dL (75-99)
[2019-08-12] MEDS: INSULIN DETEMIR (LEVEMIR) 100 UNIT/ML SYR SQ SCH (06:09)
[2019-08-12 06:57] LABS: Basophils % (A) 0 %; Eosinophils % (A) 0 %; HCT 44.6 % (39.0-53.0); HGB 14.7 gm/dL (13.0-17.5); Lymphocytes # (A) 1.5 k/uL (1.0-4.8); Lymphocytes % (A) 8 %; MCH 30.2 pg (25.0-35.0); MCV 91.8 fL (80.0-100.0); Mean Platelet Volume 6.5; Monocytes # (A) 1.2 k/uL (0-1.0); Monocytes % (A) 6 %; Neutrophils # (A) 16.3 k/uL (1.3-7.7); Neutrophils % (A) 85 %; Platelet Count 482 k/uL (150-450); RBC 4.86 m/uL (4.30-5.90); RDW 14.9 % (11.5-15.5); WBC 19.3 k/uL (3.8-10.6)
[2019-08-12 07:21] LABS: African American GFR (CKD) >90 (>60 ml/min/1.73 sqM); Anion Gap 7 mmol/L; Blood Urea Nitrogen 16 mg/dL (9-20); Calcium 9.4 mg/dL (8.4-10.2); Carbon Dioxide 29 mmol/L (22-30); Chloride 102 mmol/L (98-107); Cholesterol 123 mg/dL (<200); Glucose 172 mg/dL (74-99); HDL Cholesterol 62 mg/dL (40-60); LDL Cholesterol,Calculated 41 mg/dL (0-99); Non-African American GFR(CKD) >90 (>60 ml/min/1.73 sqM); Sodium 138 mmol/L (137-145); Triglycerides 101 mg/dL (<150)
[2019-08-12] MEDS: cloNIDine HCL 0.1 MG TAB PO SCH ×2 (08:04→20:38)
[2019-08-12] MEDS: ATORVASTATIN 40 MG TAB PO SCH (08:04)
[2019-08-12] MEDS: oxyCODONE ER 80 MG TAB.ER.12H PO SCH ×2 (08:04→20:38)
[2019-08-12] MEDS: NADOLOL 20 MG TAB PO SCH ×2 (08:04→20:55)
[2019-08-12] MEDS: ASPIRIN 81 MG PO SCH (08:04)
[2019-08-12] MEDS: DULoxetine HCL 60 MG CAPSULE.DR PO SCH ×2 (08:04→20:37)
[2019-08-12] MEDS: amLODIPine 10 MG TAB PO SCH (08:05)
[2019-08-12] MEDS ORDERED: ASPIRIN 325 MG TAB PO STA (08:42)
[2019-08-12] MEDS ORDERED: SODIUM CHLORIDE 0.9% 1,000 ML in EMPTY BAG 1 BAG IV ONE (08:42)
[2019-08-12] MEDS ORDERED: ATORVASTATIN 80 MG TAB PO STA (08:42)
[2019-08-12] MEDS ORDERED: NITROGLYCERIN SL TABS 0.4 MG TAB SUBLINGUAL PRN (08:42)
[2019-08-12] MEDS ORDERED: ALPRAZolam 0.5 MG TAB PO PRN (08:42)
[2019-08-12] MEDS ORDERED: ALPRAZolam 0.25 MG TAB PO PRN (08:42)
[2019-08-12] MEDS ORDERED: ATORVASTATIN 40 MG TAB PO STA (08:45)
[2019-08-12] MEDS ORDERED: ASPIRIN 81 MG PO STA (08:46)
[2019-08-12] MEDS ORDERED: ASPIRIN 325 MG TAB PO SCH (09:00)
[2019-08-12] MEDS: SODIUM CHLORIDE 0.9% 1,000 ML IV SCH ×4 (09:12→12:14)
[2019-08-12] MEDS: HEPARIN SOD,PORK IN 0.45% NACL 25,000 UNIT in 0.45% NACL 1 250ML.BAG IV SCH (09:13)
[2019-08-12] MEDS ORDERED: IV FLUID CONTINUATION 1,000 ML IV ONE (10:00)
[2019-08-12] MEDS ORDERED: VERAPAMIL 2.5 MG/ML 2 ML AMP ONE (10:23)
[2019-08-12] MEDS ORDERED: HEPARIN SODIUM 1,000 UN/ML (10ML VL) ONE (10:23)
[2019-08-12] MEDS ORDERED: LIDOCAINE 1% INJ 10MG/ML (20 ML MDV) ONE (10:23)
[2019-08-12] MEDS ORDERED: MIDAZOLAM 2 MG/2 ML VIAL IV ONE (10:40)
[2019-08-12] MEDS ORDERED: LIDOCAINE 1% INJ 10MG/ML (20 ML MDV) SQ ONE (10:41)
[2019-08-12] MEDS ORDERED: fentaNYL (PF) 50 MCG/ML 2 ML AMP ONE (10:45)
--- NOTE | 2019-08-12 10:45 | ECHOF ---
Referral Reason:assess lvf MEASUREMENTS -------- HEIGHT: 170.2 cm WEIGHT: 77.1 kg BP: 210/115 RVIDd: 3.1 cm (< 3.3) IVSd: 1.8 cm (0.6 - 1.1) LVIDd: 4.2 cm (3.9 - 5.3) LVPWd: 1.4 cm (0.6 - 1.1) IVSs: 1.9 cm LVIDs: 3.5 cm LVPWs: 1.9 cm LA Diam: 3.6 cm (2.7 - 3.8) LAESV Index (A-L): 37.93 ml/m Ao Diam: 3.4 cm (2.0 - 3.7) AV Cusp: 2.6 cm (1.5 - 2.6) MV EXCURSION: 14.924 mm (> 18.000) MV EF SLOPE: 130 mm/s (70 - 150) EPSS: 1.0 cm MV E Khanh: 1.18 m/s MV DecT: 150 ms MV A Khanh: 0.58 m/s MV E/A Ratio: 2.03 FINDINGS -------- Resting tachycardia (HR>100bpm). This was a technically difficult study with suboptimal views. The left ventricular size is normal. There is severe concentric left ventricular hypertrophy. Ove rall left ventricular systolic function is mild-moderately impaired with, an EF between 40 - 45 %. Basal inferior LV wall motion is hypokinetic. Basal inferoseptal LV wall motion is hypokinetic. The right ventricle is normal in size. LA is moderately dilated 34-39 ml/m2 The right atrium is normal in size. Lumason used Interatrial and interventricular septum intact. The aortic valve is trileaflet and appears structurally normal. Mild mitral annular calcification present. The tricuspid valve appears structurally normal. Trace/mild (physiologic) pulmonic regurgitation. The aortic root size is normal. Normal inferior vena cava with normal inspiratory collapse consistent with estimated right atrial pre ssure of 5 mmHg. There is no pericardial effusion. CONCLUSIONS -------- 1. Resting tachycardia (HR>100bpm). 2. This was a technically difficult study with suboptimal views. 3. The left ventricular size is normal. 4. There is severe concentric left ventricular hypertrophy. 5. Overall left ventricular systolic function is mild-moderately impaired with, an EF between 40 - 45 %. 6. Basal inferior LV wall motion is hypokinetic. 7. Basal inferoseptal LV wall motion is hypokinetic. 8. The right ventricle is normal in size. 9. LA is moderately dilated 34-39 ml/m2 10. The right atrium is normal in size. 11. Lumason used 12. Interatrial and interventricular septum intact. 13. The aortic valve is trileaflet and appears structurally normal. 14. Mild mitral annular calcification present. 15. The tricuspid valve appears structurally normal. 16. Trace/mild (physiologic) pulmonic regurgitation. 17. The aortic root size is normal. 18. Normal inferior vena cava with normal inspiratory collapse consistent with estimated right atrial pressure of 5 mmHg. 19. There is no pericardial effusion. CARDIAC REHABILITATION SPECIALIST: Krissy Hou RDCS
[2019-08-12] MEDS ORDERED: fentaNYL (PF) 50 MCG/ML 2 ML AMP IV ONE (10:48)
[2019-08-12] MEDS ORDERED: RX INFO: IV CONTRAST WAS GIVEN 1 EACH MISC MISCELLANE PRN (11:07)
[2019-08-12] MEDS ORDERED: IOPAMIDOL-370 125ML BTL INJ ONE (11:23)
[2019-08-12 11:44] LABS: Glucose,Whole Blood 177 mg/dL (75-99)
--- NOTE | 2019-08-12 16:41 | P.GSCN ---
History of Present Illness Consult date: 08/12/19 Reason for Consult: Symptomatic multivessel coronary artery disease, evaluation for myocardial revascularization surgery. Requesting physician: Donovan Hua History of present illness: This is a 64-year-old gentleman who is followed by Dr. Dexter Ji on an outpatient basis. He is a past medical history significant for coronary artery disease with history of stent placement to his right coronary artery in 2014, hypertension, hyperlipidemia, daily marijuana use, remote history of nicotine dependence quit smoking 25 years ago, chronic lower back pain, insulin-dependent diabetes mellitus type 2, and a family history of early onset coronary artery disease with his dad being diagnosed in his early 50s. He presented to the emergency department here at [facility] on 08/11/2019 via EMS with complaints of substernal chest pain without radiation, shortness of breath, nausea and vomiting. The patient reports that when he got up during the middle the night to use the restroom the chest pain developed. He said he vomited 3 times in the emergency department. He denies any recent fever, chills, cough, orthopnea, presyncope or syncope. Lab results in the emergency department showed negative serial troponins, WBCs 16.3, hemoglobin 16.1, hematocrit 49.1, platelets 301, potassium 3.3, CO2 19, BUN 14, creatinine 0.62, lactic acid 3.6, magnesium 1.5 and TSH 1.400. A 12-lead EKG was completed which shows sinus tachycardia heart rate 122 BPM. The CTA angiogram thoracic, abdomen and pelvis and aorta was negative for aortic aneurysm or pulmonary embolism. A 2-D echocardiogram was also completed which showed an overall left ventricular systolic function to be mild to moderately impaired with an ejection fraction between 40 and 45%, and trace to mild to moderate valve regurgitation. Subsequently he was seen by Dr. Hua from [facility] and underwent a cardiac catheterization today. The cardiac catheterization results demonstrated a totally occluded distal right coronary artery, a 60% ostial circumflex lesion, a 90% stenosis to his distal circumflex coronary artery, a 70% stenosis to his mid left anterior descending coronary artery and a 70% stenosis to his diagonal coronary artery. Due to the patient's history of coronary artery disease with stent placement, his presenting symptoms and cardiac catheterization results a consult was placed to Dr. Cris Denson from cardiothoracic surgery for further evaluation and surgical recommendations. Review of Systems A 14 point review of systems was completed and was negative except as mentioned in the HPI. Past Medical History Past Medical History: Coronary Artery Disease (CAD), Chest Pain / Angina, Diabetes Mellitus, Hyperlipidemia, Hypertension, Myocardial Infarction ([place]) (February 2015) Additional Past Medical History / Comment(s): Other HX: Chronic lower back pain and bilateral leg pain, Last Myocardial Infarction Date:: 03/20/2015 History of Any Multi-Drug Resistant Organisms: None Reported Past Surgical History: Back Surgery, Heart Catheterization With Stent, Orthopedic Surgery Additional Past Surgical History / Comment(s): knee, ankle surgery-pt believes it was his R ankle. pt states he has a total of 5 heart stents Past Anesthesia/Blood Transfusion Reactions: No Reported Reaction Additional Past Anesthesia/Blood Transfusion Reaction / Comm: recieved blood after severe nose bleed, needed to be cauterized after recieving too much aspirin. Date of Last Stent Placement:: 02/2015 Past Psychological History: No Psychological Hx Reported Smoking Status: Former smoker (Quit smoking 25 years ago) Past Alcohol Use History: None Reported Past Drug Use History: Marijuana - Past Family History Sister(s) Family Medical History: Coronary Artery Disease (CAD), Hypertension Father Family Medical History: Coronary Artery Disease (CAD), Diabetes Mellitus, Deep Vein Thrombosis (DVT), Hypertension Additional Family Medical History / Comment(s): Father at age 58yrs. He of blood clot from leg injury that went to his heart. Medications and Allergies Home Medications Medication Instructions Recorded Confirmed Type amLODIPine [Norvasc] 10 mg PO DAILY #30 tab 04/04/14 08/11/19 Rx glipiZIDE [Glipizide] 5 mg PO BID 03/20/15 08/11/19 History Atorvastatin [Lipitor] 40 mg PO DAILY 10/03/17 08/11/19 History cloNIDine HCL [Catapres] 0.1 mg PO BID 10/03/17 08/11/19 History Aspirin EC [Ecotrin Low Dose] 81 mg PO DAILY 08/11/19 08/11/19 History Insulin Glargine,Hum.rec.anlog 25 unit SQ HS 08/11/19 08/11/19 History [Bobyaglmelony Bryan U-100] Naloxegol Oxalate [Movantik] 25 mg PO DAILY 08/11/19 08/11/19 History Allergies Allergy/AdvReac Type Severity Reaction Status Date / Time No Known Allergies Allergy Verified 08/11/19 14:12 Surgical - Exam Vital Signs Temp Pulse Resp BP Pulse Ox 98.3 F 124 H 22 167/102 98 08/11/19 06:39 08/11/19 06:39 08/11/19 06:39 08/11/19 06:39 08/11/19 06:39 This is a pleasant 64-year-old gentleman who is lying comfortably in bed on the cardiac stepdown unit. He is in no acute distress and is hemodynamically stable. Normal sinus rhythm on the remote monitoring analyst with a heart rate of 59. Oxygen saturation is 98% on 2 L nasal cannula. - General no distress, no pain, chronically ill - Eyes PERRL, normal ocular movement - ENT Oral thrush. normal pinna, normal nares, normal mucosa, no hearing loss, no congestion, poor care home - Neck No JVD, no lymphadenopathy. no masses, no bruits, trachea midline, no venous distension - Respiratory Lungs sounds essentially clear throughout, diminished to his bilateral bases. Respirations are symmetrical and nonlabored. No wheezing, rhonchi or crackles present. - Cardiovascular Regular rhythm and rate. S1 and S2 present, negative for S3, gallop or murmur. No edema present. - Abdomen Abdomen is soft, nontender and nondistended. Active bowel sounds present in all 4 abdominal quadrants. No guarding or rigidity. No organomegaly appreciated. - Genitourinary Deferred - Rectum Deferred - Integumentary no rash, no growths, no abnormal pigmentation - Neurologic Cranial nerves II through XII intact. normal coordination, normal sensation - Musculoskeletal Strength equal bilaterally - Psychiatric oriented to time, oriented to person, oriented to place, speech is normal, memory intact Results - Labs 08/12/19 06:18 08/12/19 06:18 Abnormal Lab Results - Last 24 Hours (Table) 08/11/19 08/11/19 08/11/19 Range/Units 16:40 19:59 23:00 WBC (3.8-10.6) k/uL Plt Count (150-450) k/uL Neutrophils # (1.3-7.7) k/uL Monocytes # (0-1.0) k/uL APTT 39.1 H (22.0-30.0) sec Potassium (3.5-5.1) mmol/L Glucose (74-99) mg/dL POC Glucose (mg/dL) 225 H 243 H (75-99) mg/dL Hemoglobin A1c (4.0-6.0) % HDL Cholesterol (40-60) mg/dL 08/12/19 08/12/19 08/12/19 Range/Units 05:46 06:18 06:18 WBC 19.3 H (3.8-10.6) k/uL Plt Count 482 H (150-450) k/uL Neutrophils # 16.3 H (1.3-7.7) k/uL Monocytes # 1.2 H (0-1.0) k/uL APTT (22.0-30.0) sec Potassium 3.0 L (3.5-5.1) mmol/L Glucose 172 H (74-99) mg/dL POC Glucose (mg/dL) 159 H (75-99) mg/dL Hemoglobin A1c (4.0-6.0) % HDL Cholesterol 62 H (40-60) mg/dL 08/12/19 08/12/19 08/12/19 Range/Units 06:18 06:18 11:44 WBC (3.8-10.6) k/uL Plt Count (150-450) k/uL Neutrophils # (1.3-7.7) k/uL Monocytes # (0-1.0) k/uL APTT 49.2 H (22.0-30.0) sec Potassium (3.5-5.1) mmol/L Glucose (74-99) mg/dL POC Glucose (mg/dL) 177 H (75-99) mg/dL Hemoglobin A1c 8.0 H (4.0-6.0) % HDL Cholesterol (40-60) mg/dL Microbiology - Last 24 Hours (Table) 08/11/19 07:01 Blood Culture - Preliminary Blood No Growth after 24 hours Diabetes panel 08/12/19 08/12/19 Range/Units 06:18 06:18 Sodium 138 (137-145) mmol/L Potassium 3.0 L (3.5-5.1) mmol/L Chloride 102 (98-107) mmol/L Carbon Dioxide 29 (22-30) mmol/L BUN 16 (9-20) mg/dL Creatinine 0.77 (0.66-1.25) mg/dL Glucose 172 H (74-99) mg/dL Hemoglobin A1c 8.0 H (4.0-6.0) % Calcium 9.4 (8.4-10.2) mg/dL Triglycerides 101 (<150) mg/dL HDL Cholesterol 62 H (40-60) mg/dL Calcium panel 08/12/19 Range/Units 06:18 Calcium 9.4 (8.4-10.2) mg/dL Pituitary panel 08/12/19 Range/Units 06:18 Sodium 138 (137-145) mmol/L Potassium 3.0 L (3.5-5.1) mmol/L Chloride 102 (98-107) mmol/L Carbon Dioxide 29 (22-30) mmol/L BUN 16 (9-20) mg/dL Creatinine 0.77 (0.66-1.25) mg/dL Glucose 172 H (74-99) mg/dL Calcium 9.4 (8.4-10.2) mg/dL Adrenal panel 08/12/19 Range/Units 06:18 Sodium 138 (137-145) mmol/L Potassium 3.0 L (3.5-5.1) mmol/L Chloride 102 (98-107) mmol/L Carbon Dioxide 29 (22-30) mmol/L BUN 16 (9-20) mg/dL Creatinine 0.77 (0.66-1.25) mg/dL Glucose 172 H (74-99) mg/dL Calcium 9.4 (8.4-10.2) mg/dL - Imaging Chest x-ray: report reviewed, image reviewed CT scan - chest: report reviewed, image reviewed Additional studies: 2-D echocardiogram films and cardiac catheterization films reviewed by Dr. Eugenio Villar. Assessment and Plan Assessment: 1. Symptomatic multivessel coronary artery disease, history of stent placement to his right coronary artery in 2014 2. Unstable angina 3. Hypertension 4. Dyslipidemia 5. Insulin-dependent diabetes mellitus 6. Remote history of smoking quit 25 years ago 7. Family history of early onset coronary artery disease, his father diagnosed in his early 50s 8. Daily marijuana use Plan: The patient was seen and examined as bedside on the cardiac stepdown unit. His chart and diagnostics were reviewed by Dr. Eugenio Villar. Preoperative testing and preoperative teaching initiated. Once his preoperative testing has been completed a more definitive plan regarding myocardial revascularization surgery will be discussed with the patient. He was admitted with an elevated white blood cell count which and is being seen by infectious disease, he is currently on Zosyn for antibiotic coverage. Continue to optimize medical management with aspirin, statin, and beta belkis. Medical management and other comorbidities per primary care service and cardiology. We will complete a 5 m walk test [facility] 08/13/2019 and calculate an STS risk score once his preoperative testing has been collected. Thank you Dr. Hua for this consult and we look forward to working with you in the care of this patient. Time with Patient: Greater than 30
[2019-08-12 16:45] LABS: Glucose,Whole Blood 156 mg/dL (75-99)
--- NOTE | 2019-08-12 17:03 | P.PN ---
Subjective Progress Note Date: 08/12/19 64-year-old male with a known history of coronary artery disease and multiple stent placement, diabetes type 2, hypertension, hyperlipidemia, chronic low back pain and previous history of smoking came to ER with the complaints of chest pain. Patient states that as soon as he woke up at around 3 AM in the morning he had back pain and going into his chest. Patient tried to take nitroglycerin sublingual tablets at home but did not help with that. Patient also took baby aspirin. Pain has been persistent crushing type along with dry heaves which has been present since morning, EMS was called and patient was brought to the hospital. Objective - Vital Signs Vital signs: Vital Signs Temp 98.6 F 08/12/19 07:59 Pulse 56 L 08/12/19 12:30 Resp 16 08/12/19 12:30 BP 152/76 08/12/19 12:30 Pulse Ox 99 08/12/19 12:30 Intake & Output 08/11/19 08/12/19 08/12/19 18:59 06:59 18:59 Intake Total 90.217 69.98 350 Output Total 825 Balance 90.217 -755.02 350 Weight 77.111 kg 84 kg Intake: IV 350 Intake, IV Titration 90.217 69.98 Amount Heparin Sod,Pork in 0.45% 90.217 69.98 NaCl 25,000 unit In 0.45 % NaCl 1 250ml.bag @ 12 UNITS/KG/HR 9.253 mls/hr IV .Q24H [facility] Rx#: [id number] Output: Urine 825 Other: Voiding Method Toilet - Exam PHYSICAL EXAMINATION: GENERAL: The patient is alert and oriented x3, not in any acute distress. Well developed, well nourished. HEENT: Pupils are round and equally reacting to light. EOMI. No scleral icterus. No conjunctival pallor. Normocephalic, atraumatic. No pharyngeal erythema. No thyromegaly. CARDIOVASCULAR: S1 and S2 present. No murmurs, rubs, or gallops. PULMONARY: Chest is clear to auscultation, no wheezing or crackles. ABDOMEN: Soft, nontender, nondistended, normoactive bowel sounds. No palpable organomegaly. MUSCULOSKELETAL: No joint swelling or deformity. EXTREMITIES: No cyanosis, clubbing, or pedal edema. NEUROLOGICAL: Gross neurological examination did not reveal any focal deficits. SKIN: No rashes. - Labs CBC & Chem 7: 08/12/19 06:18 08/12/19 06:18 Labs: Abnormal Lab Results - Last 24 Hours (Table) 08/11/19 08/11/19 08/11/19 Range/Units 15:02 16:40 19:59 WBC (3.8-10.6) k/uL Plt Count (150-450) k/uL Neutrophils # (1.3-7.7) k/uL Monocytes # (0-1.0) k/uL APTT 33.0 H (22.0-30.0) sec Potassium (3.5-5.1) mmol/L Glucose (74-99) mg/dL POC Glucose (mg/dL) 225 H 243 H (75-99) mg/dL HDL Cholesterol (40-60) mg/dL 08/11/19 08/12/19 08/12/19 Range/Units 23:00 05:46 06:18 WBC (3.8-10.6) k/uL Plt Count (150-450) k/uL Neutrophils # (1.3-7.7) k/uL Monocytes # (0-1.0) k/uL APTT 39.1 H (22.0-30.0) sec Potassium 3.0 L (3.5-5.1) mmol/L Glucose 172 H (74-99) mg/dL POC Glucose (mg/dL) 159 H (75-99) mg/dL HDL Cholesterol 62 H (40-60) mg/dL 08/12/19 08/12/19 08/12/19 Range/Units 06:18 06:18 11:44 WBC 19.3 H (3.8-10.6) k/uL Plt Count 482 H (150-450) k/uL Neutrophils # 16.3 H (1.3-7.7) k/uL Monocytes # 1.2 H (0-1.0) k/uL APTT 49.2 H (22.0-30.0) sec Potassium (3.5-5.1) mmol/L Glucose (74-99) mg/dL POC Glucose (mg/dL) 177 H (75-99) mg/dL HDL Cholesterol (40-60) mg/dL Microbiology - Last 24 Hours (Table) 08/11/19 07:01 Blood Culture - Preliminary Blood No Growth after 24 hours Assessment and Plan Plan: Chest pain possible unstable angina. Acute diabetic ketoacidosis. Anion gap closed now Hypertensive urgency Leukocytosis likely due to reactive rule out infection. Chest x-ray and UA are negative. Lactic acidosis due to volume depletion. Hypomagnesemia Coronary artery disease with history of multiple stent placement Diabetes type 2 insulin-dependent Hypertension uncontrolled. Chronic back pain Hyperlipidemia Previous history of smoking DVT prophylaxis patient is already on heparin drip Plan: Patient is being continued on heparin drip. Continue with serial troponins and EKGs. Cardiology was consulted. Planning for cath tomorrow. Patient will be started on Levemir and add preprandial insulin. Continue with insulin sliding scale for better blood sugar control. Titrate dose as needed. A1c level. Patient will be started back on home blood pressure medications and was given IV labetalol today afternoon. Continue with IV hydration and follow-up closely. Continue with pain management due to chronic back pain. White blood count remains markedly elevated; we'll consult ID for further recommendations on antibiotic treatment
--- NOTE | 2019-08-12 17:13 | US ---
EXAMINATION TYPE: US carotid duplex BILAT DATE OF EXAM: 08/12/2019 COMPARISON: CLINICAL HISTORY: Pre-Op Cardiac Surgery. PreCABG, HTN EXAM MEASUREMENTS: RIGHT: Peak Systolic Velocity (PSV) cm/sec ----- Right CCA: 57.5 ----- Right ICA: 80.1 ----- Right ECA: 93.1 ICA/CCA ratio: 1.4 RIGHT: End Diastole cm/sec ----- Right CCA: 12.1 ----- Right ICA: 24.1 ----- Right ECA: 6.3 LEFT: Peak Systolic Velocity (PSV) cm/sec ----- Left CCA: 63.6 ----- Left ICA: 64.5 ----- Left ECA: 89.7 ICA/CCA ratio: 1.0 LEFT: End Diastole cm/sec ----- Left CCA: 12.0 ----- Left ICA: 20.0 ----- Left ECA: 0.0 VERTEBRALS (direction of flow): Right Vertebral: Antegrade Left Vertebral: Antegrade Rhythm: Normal Wall thickening. No elevated velocities or significant stenosis. Plaque visualized in right and lef t bulb extending into proximal ICA. IMPRESSION: 1. Intimal thickening with mild atheromatous plaquing. No significant flow-limiting stenosis is evide nt. Criteria for Assigning % of Stenosis / Diameter reduction (Estimation based on the indirect measurements of the internal carotid artery velocities (ICA PSV). 1. Normal (no stenosis)=ICA PSV < 125 cm/s: ratio < 2.0: ICA EDV<40 cm/s. 2. Less than 50% stenosis=ICA PSV < 125 cm/s: ratio < 2.0: ICA EDV<40 cm/s. 3. 50 to 69% stenosis=ICA PSV of 125 to 230 cm/s: ration 2.0 ? 4.0: ICA EDV 40-100 cm/s. 4. Greater than 70% stenosis to near occlusion= ICA PSV > 230 cm/s: ratio > 4.0: ICA EDV > 100 cm/s. 5. Near occlusion= ICA PSV velocities may be low or undetectable: variable ratio and ICA EDV. 6. Total occlusion=unable to detect flow.
[2019-08-12 17:30] LABS: Amorphous Sediment,Urine Rare /hpf; Appearance,Urine Clear (Clear); Bilirubin,Urine Negative (Negative); Blood,Urine Small (Negative); Color,Urine Yellow; Glucose,Urine (UA) Negative (Negative); Hyaline Casts,Urine 1 /lpf (0-2); Ketones,Urine Negative (Negative); Leukocyte Esterase,Urine Trace (Negative); Nitrite,Urine Negative (Negative); Protein,Urine 2+ (Negative); RBC,Urine 4 /hpf (0-5); Specific Gravity,Urine 1.039 (1.001-1.035); Squamous Epithelial Cell,Urine 1 /hpf (0-4); Urobilinogen,Urine <2.0 mg/dL (<2.0); WBC,Urine 12 /hpf (0-5)
[2019-08-12 20:29] LABS: Glucose,Whole Blood 166 mg/dL (75-99)
[2019-08-12] MEDS ORDERED: HEPARIN SOD,PORK IN 0.45% NACL 25,000 UNIT in 0.45% NACL 1 250ML.BAG IV SCH (23:45)
[2019-08-12] MEDS ORDERED: IOPAMIDOL CONTRAST (ORAL USE) VIAL PO PRN (23:48)
[2019-08-12] MEDS ORDERED: HYDROmorphone 0.5 MG/0.5 ML SYRINGE IVP STA (23:56)
--- NOTE | 2019-08-12 23:56 | P.CONS ---
History of Present Illness - Reason for Consult Consult date: 08/12/19 leukocytosis Requesting physician: Justin Vail - Chief Complaint chest pain x 1 day - History of Present Illness Patient is a 64-year-old male with a past medical significant for coronary disease hypertension hyperlipidemia and marijuana use patient presenting to the hospital yesterday with chief complaints of substernal chest pain that started the day he presented to the hospital patient describes the pain to be sharp. To the back intensity almost 6-7 out of 10 with associated shortness of breath and nausea and vomiting patient had patient had denies having any cough or sputum production no URI symptoms no abdominal pain or any diarrhea denies having any fever patient on presented to the hospital has been afebrile he was noticed to have white count 16.3 did receive dose of Zosyn in the ER she was not continued repeat white count was 13.3 however the white count is up to 19.3 today that prompted this infectious disease consultation patient also have elevated lactic acid 3.6 liver exam has been normal blood culture has been negative urine so far negative patient chest x-ray was negative for any acute cardiopulmonary disease thoracic aorta CT did not show any evidence of dissection and the lungs were grossly clear, the patient did have a cardiac cath with evidence of three-vessel disease further CT surgery has been consulted for consideration of bypass with his possible bipolar I was asked to see the patient for further recommendation patient is currently not on antibiotics and his chest pain has improved. Review of Systems Positive point has been mentioned in HPI complete review could not be obtained because of underlying mental status Past Medical History Past Medical History: Coronary Artery Disease (CAD), Chest Pain / Angina, Diabetes Mellitus, Hyperlipidemia, Hypertension Additional Past Medical History / Comment(s): Other HX: Chronic lower back pain and bilateral leg pain, History of Any Multi-Drug Resistant Organisms: None Reported Past Surgical History: Back Surgery, Heart Catheterization With Stent, Orthopedic Surgery Additional Past Surgical History / Comment(s): knee, ankle surgery-pt believes it was his R ankle. pt states he has a total of 5 heart stents Past Anesthesia/Blood Transfusion Reactions: No Reported Reaction Additional Past Anesthesia/Blood Transfusion Reaction / Comm: recieved blood af ter severe nose bleed, needed to be cauterized after recieving too much aspirin. Date of Last Stent Placement:: 02/2015 Smoking Status: Former smoker - Past Family History Sister(s) Family Medical History: Coronary Artery Disease (CAD), Hypertension Father Family Medical History: Coronary Artery Disease (CAD), Diabetes Mellitus, Deep Vein Thrombosis (DVT), Hypertension Additional Family Medical History / Comment(s): Father at age 58yrs. He of blood clot from leg injury that went to his heart. Medications and Allergies Home Medications Medication Instructions Recorded Confirmed Type amLODIPine [Norvasc] 10 mg PO DAILY #30 tab 04/04/14 08/11/19 Rx glipiZIDE [Glipizide] 5 mg PO BID 03/20/15 08/11/19 History Atorvastatin [Lipitor] 40 mg PO DAILY 10/03/17 08/11/19 History cloNIDine HCL [Catapres] 0.1 mg PO BID 10/03/17 08/11/19 History Aspirin EC [Ecotrin Low Dose] 81 mg PO DAILY 08/11/19 08/11/19 History Insulin Glargine,Hum.rec.anlog 25 unit SQ HS 08/11/19 08/11/19 History [Basaglar Kwikpen U-100] Naloxegol Oxalate [Movantik] 25 mg PO DAILY 08/11/19 08/11/19 History Allergies Allergy/AdvReac Type Severity Reaction Status Date / Time No Known Allergies Allergy Verified 08/11/19 14:12 Physical Exam Vitals: Vital Signs Temp Pulse Pulse Resp BP Pulse Ox 08/12/19 14:30 60 18 151/64 98 08/12/19 13:30 59 L 16 155/73 97 08/12/19 13:00 56 L 16 152/76 99 08/12/19 12:30 56 L 16 152/76 99 08/12/19 12:15 56 L 16 144/83 100 08/12/19 12:00 55 L 16 152/81 100 08/12/19 11:45 58 L 16 161/85 100 08/12/19 08:43 69 175/86 99 08/12/19 08:00 69 16 08/12/19 07:59 98.6 F 69 16 175/86 99 08/12/19 03:31 98.1 F 67 18 165/78 97 08/12/19 00:24 97.9 F 91 20 112/67 96 08/11/19 20:15 98.0 F 86 18 137/102 97 08/11/19 18:31 188/91 08/11/19 17:16 196/94 Intake and Output 08/12/19 08/12/19 08/12/19 06:59 14:59 22:59 Intake Total 69.98 950 Output Total 525 400 Balance -455.02 550 Intake: IV 350 Intake, IV Titration 69.98 375 Amount Heparin Sod,Pork in 0.45% 69.98 NaCl 25,000 unit In 0.45 % NaCl 1 250ml.bag @ 12 UNITS/KG/HR 9.253 mls/hr IV .Q24H [facility] Rx#: [id number] Sodium Chloride 0.9% 1, 375 000 ml @ 75 mls/hr IV . [id number] [facility] Rx#:[id number] Oral 225 Output: Urine 525 400 Other: Voiding Method Toilet Weight 84 kg GENERAL DESCRIPTION: Middle-aged male lying in bed, no distress. No tachypnea or accessory muscle of respiration use. HEENT: Shows Pallor , no scleral icterus. Oral mucous membrane is dry. NECK: Trachea central, no thyromegaly. LUNGS: Unlabored breathing. Clear to auscultation. No wheeze or crackle. HEART: S1, S2, regular rate and rhythm. ABDOMEN: Soft, no tenderness , guarding or rigidity EXTREMITIES: No edema of feet. SKIN: No rash, no masses palpable. NEUROLOGICAL: The patient is awake, alert, oriented x3, mood and affect normal. Results CBC & Chem 7: 08/12/19 06:18 08/12/19 06:18 Labs: Abnormal Lab Results - Last 24 Hours (Table) 08/11/19 08/11/19 08/11/19 Range/Units 15:02 16:40 19:59 WBC (3.8-10.6) k/uL Plt Count (150-450) k/uL Neutrophils # (1.3-7.7) k/uL Monocytes # (0-1.0) k/uL APTT 33.0 H (22.0-30.0) sec Potassium (3.5-5.1) mmol/L Glucose (74-99) mg/dL POC Glucose (mg/dL) 225 H 243 H (75-99) mg/dL Hemoglobin A1c (4.0-6.0) % HDL Cholesterol (40-60) mg/dL 08/11/19 08/12/19 08/12/19 Range/Units 23:00 05:46 06:18 WBC (3.8-10.6) k/uL Plt Count (150-450) k/uL Neutrophils # (1.3-7.7) k/uL Monocytes # (0-1.0) k/uL APTT 39.1 H (22.0-30.0) sec Potassium 3.0 L (3.5-5.1) mmol/L Glucose 172 H (74-99) mg/dL POC Glucose (mg/dL) 159 H (75-99) mg/dL Hemoglobin A1c (4.0-6.0) % HDL Cholesterol 62 H (40-60) mg/dL 08/12/19 08/12/19 08/12/19 Range/Units 06:18 06:18 06:18 WBC 19.3 H (3.8-10.6) k/uL Plt Count 482 H (150-450) k/uL Neutrophils # 16.3 H (1.3-7.7) k/uL Monocytes # 1.2 H (0-1.0) k/uL APTT 49.2 H (22.0-30.0) sec Potassium (3.5-5.1) mmol/L Glucose (74-99) mg/dL POC Glucose (mg/dL) (75-99) mg/dL Hemoglobin A1c 8.0 H (4.0-6.0) % HDL Cholesterol (40-60) mg/dL 08/12/19 Range/Units 11:44 WBC (3.8-10.6) k/uL Plt Count (150-450) k/uL Neutrophils # (1.3-7.7) k/uL Monocytes # (0-1.0) k/uL APTT (22.0-30.0) sec Potassium (3.5-5.1) mmol/L Glucose (74-99) mg/dL POC Glucose (mg/dL) 177 H (75-99) mg/dL Hemoglobin A1c (4.0-6.0) % HDL Cholesterol (40-60) mg/dL Microbiology - Last 24 Hours (Table) 08/11/19 07:01 Blood Culture - Preliminary Blood No Growth after 24 hours Assessment and Plan Assessment: patient with leukocytosis with a white count of 19.3 and this patient presented hospital with substernal chest pain sternal chest pain and has been diagnosed with coronary artery disease three-vessel patient did have a thoracic aorta CT and the lungs were clear of any infiltrate suggestive of pneumonia patient UA is negative abdominal soft nontender examination no evidence of any cellulitis or any localizing focus of infection possible reactive. (1) Leukocytosis Current Visit: Yes Status: Acute Code(s): D72.829 - ELEVATED WHITE BLOOD CELL COUNT, UNSPECIFIED SNOMED Code(s): 432530221 Plan: 1-we will obtain blood cultures CRP and a procalcitonin 2-also check a CT abdominal pelvis with oral contrast only 3-hold on any systemic antibiotic as no obvious focus of infection We will follow on clinical condition and cultures to further adjust medication if needed Thank you for this consultation we will follow the patient along with you Time with Patient: Greater than 30
[2019-08-13] MEDS: MUPIROCIN 2% OINT 22 GM TUBE NASAL SCH ×3 (00:12→20:05)
[2019-08-13] MEDS ORDERED: CHLORHEXIDINE GLUCONATE 15 ML CUP MUCOUS MEM ONE (05:00)
[2019-08-13] MEDS: SODIUM CHLORIDE 0.9% 1,000 ML IV SCH ×4 (06:13→16:33)
[2019-08-13 06:56] LABS: Glucose,Whole Blood 304 mg/dL (75-99)
[2019-08-13] MEDS: INSULIN ASPART (NovoLOG) 100 UNIT/ML VIAL SQ SCH ×7 (07:00→20:25)
[2019-08-13] MEDS: INSULIN DETEMIR (LEVEMIR) 100 UNIT/ML SYR SQ SCH (07:01)
[2019-08-13 08:15] LABS: ALT 16 U/L (4-49); AST 20 U/L (17-59); African American GFR (CKD) >90 (>60 ml/min/1.73 sqM); Albumin 3.4 g/dL (3.5-5.0); Alkaline Phosphatase 95 U/L (38-126); Anion Gap 8 mmol/L; Blood Urea Nitrogen 20 mg/dL (9-20); Calcium 8.9 mg/dL (8.4-10.2); Carbon Dioxide 22 mmol/L (22-30); Chloride 104 mmol/L (98-107); Glucose 291 mg/dL (74-99); Magnesium 1.9 mg/dL (1.6-2.3); Non-African American GFR(CKD) >90 (>60 ml/min/1.73 sqM); Potassium 3.3 mmol/L (3.5-5.1); Sodium 134 mmol/L (137-145); Total Bilirubin 0.2 mg/dL (0.2-1.3)
[2019-08-13 08:30] LABS: Basophils % (A) 0 %; Eosinophils # (A) 0.2 k/uL (0-0.7); Eosinophils % (A) 2 %; HCT 38.8 % (39.0-53.0); HGB 12.6 gm/dL (13.0-17.5); Lymphocytes # (A) 2.1 k/uL (1.0-4.8); Lymphocytes % (A) 22 %; MCH 30.3 pg (25.0-35.0); MCHC 32.5 g/dL (31.0-37.0); MCV 93.4 fL (80.0-100.0); Mean Platelet Volume 6.8; Monocytes # (A) 0.8 k/uL (0-1.0); Monocytes % (A) 8 %; Neutrophils # (A) 6.4 k/uL (1.3-7.7); Neutrophils % (A) 66 %; Platelet Count 344 k/uL (150-450); RBC 4.15 m/uL (4.30-5.90); RDW 14.9 % (11.5-15.5); WBC 9.6 k/uL (3.8-10.6)
[2019-08-13] MEDS: ASPIRIN 81 MG PO SCH (09:02)
[2019-08-13] MEDS: NADOLOL 20 MG TAB PO SCH ×2 (09:02→20:03)
[2019-08-13] MEDS: ATORVASTATIN 40 MG TAB PO SCH (09:02)
[2019-08-13] MEDS: ISOSORBIDE MONONITRATE ER 30 MG TAB.ER.24H PO SCH (09:02)
[2019-08-13] MEDS: cloNIDine HCL 0.1 MG TAB PO SCH ×2 (09:02→20:03)
[2019-08-13] MEDS: DULoxetine HCL 60 MG CAPSULE.DR PO SCH ×2 (09:02→20:03)
[2019-08-13] MEDS: amLODIPine 10 MG TAB PO SCH (09:02)
[2019-08-13] MEDS: oxyCODONE ER 80 MG TAB.ER.12H PO SCH ×2 (09:03→20:03)
[2019-08-13] MEDS ORDERED: POTASSIUM CHLORIDE ER 20 MEQ TAB.ER PO STA (10:26)
--- NOTE | 2019-08-13 10:30 | P.PN ---
Subjective Progress Note Date: 08/13/19 This is a 64-year-old male patient with history of coronary artery disease status post angioplasty of the right coronary artery in 2014, hypertension, diabetes, dyslipidemia who presented to the hospital complaining of chest pain. Pain was precordial chest pain, moderate intensity, associated with shortness of breath. Patient woke up from sleep around 3 AM, took sublingual nitroglycerin secondary to chest pain, did not improve, came to the hospital. He became gradually pain-free in the hospital at the time of initial evaluation he was pain-free. EKG did not reveal any acute ST segment elevation. Computed tomography scan of the chest negative for pulmonary embolism and aortic aneurysm. Echocardiogram showed left ventricular systolic function to be mild to moderately impaired with an ejection fraction between 40 and 45%, and trace to mild to moderate valve regurgitation. Subsequently he underwent a cardiac catheterization with Dr. Hua on 08/11 that revealed a totally occluded distal right coronary artery, a 60% ostial circumflex lesion, a 90% stenosis to his distal circumflex coronary artery, a 70% stenosis to his mid left anterior descending coronary artery and a 70% stenosis to his diagonal coronary artery. Consult was placed with cardiothoracic surgery for further evaluation and surgical recommendations. 08/12: Patient is seen today and follow-up. Patient has been evaluated by cardiothoracic surgery and workup is in process. Patient is currently chest pain-free. He denies any shortness of breath, lightheadedness or dizziness. Vital signs have been stable. Dr. Pelletier's ordered a CAT scan of the abdomen and pelvis to further evaluate leukocytosis without obvious signs of infection. Pro-calcitonin 0.07, C-reactive protein was 5.9. Leukocytosis has resolved with WBC of 9.6, hemoglobin 12.6, platelet count 344. Sodium 134, potassium 3.3, chloride 104, CO2 22, BUN 20 creatinine 0.76. Blood cultures showing no growth at 48 hours. Urine cultures in progress. Physical examination: Gen: This is a 64-year-old male. Patient is resting in bed and appears to be comfortable and in no acute distress. VS: HEENT: Head is atraumatic, normocephalic. Pupils equal, round. Sclerae is anicteric. NECK: Supple. No JVD. No lymphadenopathy. No thyromegaly. LUNGS: Clear to auscultation. No wheezes or rhonchi. No intercostal retractions. HEART: Regular rate and rhythm. No murmur. ABDOMEN: Soft. Bowel sounds are present. No masses. No tenderness. EXTREMITIES: No pedal edema. No calf tenderness. NEUROLOGICAL: Patient is awake, alert and oriented x3. Cranial nerves 2 through 12 are grossly intact. Assessment: Unstable angina in patient with known history of coronary artery disease status post prior angioplasty of the right coronary artery Hypertension Diabetes Dyslipidemia Hypokalemia Plan: Cardiothoracic surgery for coronary artery bypass graft evaluation Replace potassium Continue amlodipine 10 mg daily, clonidine 0.1 mg twice daily, Continue aspirin 81 mg daily, atorvastatin 40 mg daily, Imdur 30 mg daily Continue heparin drip Further recommendations to follow based on clinical course Nurse practitioner note has been reviewed, I agree with documented findings and plan of care. Patient was seen and examined. Objective - Vital Signs Vital signs: Vital Signs Temp 98.1 F 08/13/19 03:40 Pulse 60 08/13/19 03:40 Resp 18 08/13/19 03:40 BP 147/98 08/13/19 03:40 Pulse Ox 97 08/13/19 03:40 Intake & Output 08/12/19 08/13/19 08/13/19 18:59 06:59 18:59 Intake Total 1186 540 Output Total 400 Balance 786 540 Weight 83.2 kg Intake: IV 350 Intake, IV Titration 375 Amount Sodium Chloride 0.9% 1, 375 000 ml @ 75 mls/hr IV . [id number] Rx#:[id number] Oral 461 540 Output: Urine 400 Other: Voiding Method Toilet # Voids 2 - Labs CBC & Chem 7: 08/13/19 07:38 08/13/19 07:38 Labs: Abnormal Lab Results - Last 24 Hours (Table) 08/12/19 08/12/19 08/12/19 Range/Units 06:18 11:44 16:44 RBC (4.30-5.90) m/uL Hgb (13.0-17.5) gm/dL Hct (39.0-53.0) % APTT (22.0-30.0) sec Sodium (137-145) mmol/L Potassium (3.5-5.1) mmol/L Glucose (74-99) mg/dL POC Glucose (mg/dL) 177 H 156 H (75-99) mg/dL Hemoglobin A1c 8.0 H (4.0-6.0) % Total Protein (6.3-8.2) g/dL Albumin (3.5-5.0) g/dL Ur Specific [place] (1.001-1.035) Urine Protein (Negative) Urine Blood (Negative) Ur Leukocyte Esterase (Negative) Urine WBC (0-5) /hpf Amorphous Sediment (None) /hpf 08/12/19 08/12/19 08/13/19 Range/Units 17:00 20:23 06:55 RBC (4.30-5.90) m/uL Hgb (13.0-17.5) gm/dL Hct (39.0-53.0) % APTT (22.0-30.0) sec Sodium (137-145) mmol/L Potassium (3.5-5.1) mmol/L Glucose (74-99) mg/dL POC Glucose (mg/dL) 166 H 304 H (75-99) mg/dL Hemoglobin A1c (4.0-6.0) % Total Protein (6.3-8.2) g/dL Albumin (3.5-5.0) g/dL Ur Specific [place] 1.039 H (1.001-1.035) Urine Protein 2+ H (Negative) Urine Blood Small H (Negative) Ur Leukocyte Esterase Trace H (Negative) Urine WBC 12 H (0-5) /hpf Amorphous Sediment Rare H (None) /hpf 08/13/19 08/13/19 08/13/19 Range/Units 07:38 07:38 07:38 RBC 4.15 L (4.30-5.90) m/uL Hgb 12.6 L (13.0-17.5) gm/dL Hct 38.8 L (39.0-53.0) % APTT 35.1 H (22.0-30.0) sec Sodium 134 L (137-145) mmol/L Potassium 3.3 L (3.5-5.1) mmol/L Glucose 291 H (74-99) mg/dL POC Glucose (mg/dL) (75-99) mg/dL Hemoglobin A1c (4.0-6.0) % Total Protein 6.0 L (6.3-8.2) g/dL Albumin 3.4 L (3.5-5.0) g/dL Ur Specific [place] (1.001-1.035) Urine Protein (Negative) Urine Blood (Negative) Ur Leukocyte Esterase (Negative) Urine WBC (0-5) /hpf Amorphous Sediment (None) /hpf Microbiology - Last 24 Hours (Table) 08/12/19 17:00 Nasal Screen MRSA/MSSA - Preliminary Nasopharyngeal Swab 08/12/19 17:00 Urine Culture - Preliminary Urine,Voided 08/11/19 07:01 Blood Culture - Preliminary Blood No Growth after 24 hours
--- NOTE | 2019-08-13 11:10 | CT ---
EXAMINATION TYPE: CT abdomen pelvis wo con DATE OF EXAM: 08/13/2019 COMPARISON: Previous study dated 02/10/2019. HISTORY: leukocytosis CT DLP: 789.3 mGycm Automated exposure control for dose reduction was used. FINDINGS: Visualized portions of the lungs are clear. There is no pleural or pericardial fluid. The h eart is not enlarged. There is calcification of the coronary arteries as well as other vascular calci fications within this study. Within the abdomen, the liver is prominent measuring 19 cm. The spleen and gallbladder are normal. There is fullness of both adrenal glands. There is no focal masses seen. The right kidney is normal. There is an extrarenal pelvis on the left. Limited views of the pancreas are unremarkable. There is no significant retroperitoneal, iliac or inguinal adenopathy. The bladder is not distended. The bladder wall appears thickened but this may be due to lack of diste ntion. There is no significant diverticular change and there is no radiographic evidence of diverticulitis. The appendix is normal. Small bowel loops are normal caliber. No free fluid and no free air is seen. There is been a previous laminectomy extending from L2 to L4. There is degenerative change in the rem ainder the spine. IMPRESSION: 1. MILD HEPATOMEGALY. 2. THICKENING OF THE BLADDER WALL MAY BE DUE TO LACK OF DISTENTION. PLEASE CORRELATE TO EXCLUDE CYSTITIS. 3. NORMAL APPENDIX. 4. POSTOPERATIVE AND DEGENERATIVE CHANGES WITHIN THE SPINE.
[2019-08-13 12:05] LABS: Glucose,Whole Blood 91 mg/dL (75-99)
[2019-08-13] MEDS ORDERED: DEXTROSE 50% SYRINGE 50 ML IVP ONE (13:47)
[2019-08-13 14:01] LABS: Glucose,Whole Blood 48 mg/dL (75-99)
[2019-08-13 14:01] LABS: Glucose,Whole Blood 57 mg/dL (75-99)
[2019-08-13 14:16] LABS: Glucose,Whole Blood 134 mg/dL (75-99)
--- NOTE | 2019-08-13 14:35 | P.PN ---
Subjective Progress Note Date: 08/13/19 Principal diagnosis: Symptomatic multivessel coronary artery disease. This is a 64-year-old gentleman who is followed by Dr. Dexter Ji on an outpatient basis. He is a past medical history significant for coronary artery disease with history of stent placement to his right coronary artery in 2014, hypertension, hyperlipidemia, daily marijuana use, remote history of nicotine dependence quit smoking 25 years ago, chronic lower back pain, insulin-dependent diabetes mellitus type 2, and a family history of early onset coronary artery disease with his dad being diagnosed in his early 50s. He presented to the emergency department here at [facility] on 08/11/2019 via EMS with complaints of substernal chest pain without radiation, shortness of breath, nausea and vomiting. The patient reports that when he got up during the middle the night to use the restroom the chest pain developed. He said he vomited 3 times in the emergency department. He denies any recent fever, chills, cough, orthopnea, presyncope or syncope. Lab results in the emergency department showed negative serial troponins, WBCs 16.3, hemoglobin 16.1, hematocrit 49.1, platelets 301, potassium 3.3, CO2 19, BUN 14, creatinine 0.62, lactic acid 3.6, magnesium 1.5 and TSH 1.400. A 12-lead EKG was completed which shows sinus tachycardia heart rate 122 BPM. The CTA angiogram thoracic, abdomen and pelvis and aorta was negative for aortic aneurysm or pulmonary embolism. A 2-D ech ocardiogram was also completed which showed an overall left ventricular systolic function to be mild to moderately impaired with an ejection fraction between 40 and 45%, and trace to mild to moderate valve regurgitation. Subsequently he was seen by Dr. Hua from [facility] and underwent a cardiac catheterization today. The cardiac catheterization results demonstrated a totally occluded distal right coronary artery, a 60% ostial circumflex lesion, a 90% stenosis to his distal circumflex coronary artery, a 70% stenosis to his mid left anterior descending coronary artery and a 70% stenosis to his diagonal coronary artery. Due to the patient's history of coronary artery disease with stent placement, his presenting symptoms and cardiac catheterization results a consult was placed to Dr. Cris Denson from cardiothoracic surgery for further evaluation and surgical recommendations. POD #1 left heart catheterization with coronary angiography performed by Dr. Hua. On 08/13/2019 the patient was seen in follow-up at his bedside of the cardiac stepdown unit. He is laying in bed comfortably and is in no acute distress. He remains hemodynamically stable and is currently on no inotropic or pressor support. He is awake, alert and oriented 3. He reports that he did have one episode of chest pain last night which was relieved by 1 nitroglycerin. Currently denies any complaints of pain or shortness of breath. Oxygen saturations are 97% on 2 L nasal cannula. A bedside FEV1 has been completed and demonstrated 72% of predicted value. Laboratory results this morning show a WBC count that is trending down and is 9.6, hemoglobin is 12.6, hematocrit 38.8, glucose is 291, BUN is 20 and creatinine is 0.76. Blood culture shows no growth after 48 hours. Objective - Vital Signs Vital signs: Vital Signs Temp 98.1 F 08/13/19 03:40 Pulse 60 08/13/19 03:40 Resp 18 08/13/19 03:40 BP 147/98 08/13/19 03:40 Pulse Ox 97 08/13/19 03:40 Intake & Output 08/12/19 08/13/19 08/13/19 18:59 06:59 18:59 Intake Total 1186 540 Output Total 400 Balance 786 540 Weight 83.2 kg Intake: IV 350 Intake, IV Titration 375 Amount Sodium Chloride 0.9% 1, 375 000 ml @ 75 mls/hr IV . [id number] [facility] Rx#:[id number] Oral 461 540 Output: Urine 400 Other: Voiding Method Toilet # Voids 2 - Exam This is a pleasant 64-year-old gentleman who is laying in bed on the cardiac stepdown unit. He is awake, alert and oriented 3 and is in no acute distress. Oxygen saturation are 97% on 2 L nasal cannula. - Constitutional General appearance: Present: average body habitus, cooperative, no acute distress - EENT Eyes: Present: PERRLA, poor dentition, normal appearance. Absent: scleral icterus ENT: Present: hearing grossly normal - Neck Neck: Absent: lymphadenopathy, thyromegaly Carotids: negative: bruit present - Respiratory Details: Lungs sounds essentially clear throughout, diminished to his bilateral bases. Respirations are symmetrical and nonlabored. No wheezing, rhonchi or crackles present. - Cardiovascular Details: Regular rhythm and rate. S1 and S2 present, negative for S3, gallop or murmur. No edema present. - Gastrointestinal Gastrointestinal Comment(s): Abdomen is soft, nontender and nondistended. Active bowel sounds present in all 4 abdominal quadrants. No guarding or rigidity. No organomegaly appreciated. - Genitourinary Genitourinary Comment(s): Voiding clear yusuf urine - Integumentary Integumentary Comment(s): Skin is warm and dry. No clubbing or cyanosis is present. No rash or abnormal pigmentation is present. - Neurologic Neurologic: Present: CNII-XII intact - Musculoskeletal Musculoskeletal: Present: generalized weakness, strength equal bilaterally - Psychiatric Psychiatric: Present: A&O x's 3, appropriate affect, intact judgment & insight - Allied health notes Allied health notes reviewed: nursing - Labs CBC & Chem 7: 08/13/19 07:38 08/13/19 07:38 Labs: Abnormal Lab Results - Last 24 Hours (Table) 08/12/19 08/12/19 08/12/19 Range/Units 06:18 11:44 16:44 RBC (4.30-5.90) m/uL Hgb (13.0-17.5) gm/dL Hct (39.0-53.0) % APTT (22.0-30.0) sec Sodium (137-145) mmol/L Potassium (3.5-5.1) mmol/L Glucose (74-99) mg/dL POC Glucose (mg/dL) 177 H 156 H (75-99) mg/dL Hemoglobin A1c 8.0 H (4.0-6.0) % Total Protein (6.3-8.2) g/dL Albumin (3.5-5.0) g/dL Ur Specific [place] (1.001-1.035) Urine Protein (Negative) Urine Blood (Negative) Ur Leukocyte Esterase (Negative) Urine WBC (0-5) /hpf Amorphous Sediment (None) /hpf 08/12/19 08/12/19 08/13/19 Range/Units 17:00 20:23 06:55 RBC (4.30-5.90) m/uL Hgb (13.0-17.5) gm/dL Hct (39.0-53.0) % APTT (22.0-30.0) sec Sodium (137-145) mmol/L Potassium (3.5-5.1) mmol/L Glucose (74-99) mg/dL POC Glucose (mg/dL) 166 H 304 H (75-99) mg/dL Hemoglobin A1c (4.0-6.0) % Total Protein (6.3-8.2) g/dL Albumin (3.5-5.0) g/dL Ur Specific [place] 1.039 H (1.001-1.035) Urine Protein 2+ H (Negative) Urine Blood Small H (Negative) Ur Leukocyte Esterase Trace H (Negative) Urine WBC 12 H (0-5) /hpf Amorphous Sediment Rare H (None) /hpf 08/13/19 08/13/19 08/13/19 Range/Units 07:38 07:38 07:38 RBC 4.15 L (4.30-5.90) m/uL Hgb 12.6 L (13.0-17.5) gm/dL Hct 38.8 L (39.0-53.0) % APTT 35.1 H (22.0-30.0) sec Sodium 134 L (137-145) mmol/L Potassium 3.3 L (3.5-5.1) mmol/L Glucose 291 H (74-99) mg/dL POC Glucose (mg/dL) (75-99) mg/dL Hemoglobin A1c (4.0-6.0) % Total Protein 6.0 L (6.3-8.2) g/dL Albumin 3.4 L (3.5-5.0) g/dL Ur Specific [place] (1.001-1.035) Urine Protein (Negative) Urine Blood (Negative) Ur Leukocyte Esterase (Negative) Urine WBC (0-5) /hpf Amorphous Sediment (None) /hpf Microbiology - Last 24 Hours (Table) 08/11/19 07:01 Blood Culture - Preliminary Blood No Growth after 48 hours 08/12/19 17:00 Nasal Screen MRSA/MSSA - Preliminary Nasopharyngeal Swab 08/12/19 17:00 Urine Culture - Preliminary Urine,Voided - Imaging and Cardiology Carotid duplex results reviewed. Assessment and Plan Assessment: 1. Symptomatic multivessel coronary artery disease, history of stent placement to his right coronary artery in 2014 2. Unstable angina 3. Hypertension 4. Dyslipidemia 5. Insulin-dependent diabetes mellitus 6. Remote history of smoking quit 25 years ago 7. Family history of early onset coronary artery disease, his father diagnosed in his early 50s 8. Daily marijuana use 9. Peripheral vascular disease Plan: 1. Continue to optimize medical management with aspirin, statin and beta belkis. 2. A 5 meter walk test was completed with the patient tomorrow 08/14/2019. 3. Preoperative testing remains in progress, reinforce preoperative teaching with the patient. 4. Once all his preoperative testing has been collected an STS risk score will be calculated. 5. Encourage use of his incentive spirometry 10 times every hour while awake. 6. Per the cardiothoracic surgery standpoint, the patient could be discharged home and brought back to the hospital for myocardial revascularization surgery tentatively on 08/23/2019 to be performed by Dr. Cris Denson. 7. We will consult pulmonary medicine for preoperative clearance. 8. More recommendations to follow based on patient's clinical course. Time with Patient: Greater than 30
--- NOTE | 2019-08-13 16:07 | PN ---
PROGRESS NOTE DATE OF SERVICE: 08/13/2019 REASON FOR FOLLOWUP: Leukocytosis, likely reactive. INTERVAL HISTORY: The patient is currently afebrile. The patient is breathing comfortably. The patient's chest pain has resolved. No shortness of breath or cough. No nausea, vomiting. No abdominal pain or diarrhea. PHYSICAL EXAMINATION: Blood pressure 137/83 with a pulse of 63, temperature 98.5. He is 97% on 2 L nasal cannula. General description is a middle-aged male lying in bed in no distress. Respiratory system: Unlabored breathing, clear to auscultation anteriorly. Heart S1, S2. Regular rate and rhythm. Abdomen soft, no tenderness. LABS: Hemoglobin is 12.6, white count 9.6, BUN of 20, creatinine 0.76. Culture so far negative. CT abdominal and pelvis did not show any acute inflammatory changes. DIAGNOSTIC IMPRESSION AND PLAN: Patient with leukocytosis, possibly reactive as we do not have any active focus of infection. The patient's CRP and procalcitonin were normal and the patient's white count normalized without any antibiotic. Hence, recommending no antibiotic and watch the patient closely off antibiotic therapy. Questions and concerns were answered. MMODL / IJN: [id number] /
[2019-08-13] MEDS: HEPARIN SODIUM,PORCINE 5,000 UNIT/ML 1 ML VIAL SQ SCH (16:32)
[2019-08-13 16:45] LABS: Glucose,Whole Blood 239 mg/dL (75-99)
[2019-08-13 17:05] LABS: Hepatitis A Antibody IgM Non-Reactive (Non-Reactive); Hepatitis B Core IgM Non-Reactive (Non-Reactive); Hepatitis B Surface Antigen Non-Reactive (Non-Reactive); Hepatitis C IgG Antibody Non-Reactive (Non-Reactive)
--- NOTE | 2019-08-13 17:56 | P.PN ---
Subjective Progress Note Date: 08/13/19 Principal diagnosis: Unstable angina Hypertensive urgency DK Multivessel coronary artery disease 64-year-old male with a known history of coronary artery disease and multiple stent placement, diabetes type 2, hypertension, hyperlipidemia, chronic low back pain and previous history of smoking came to ER with the complaints of chest pain. Patient states that as soon as he woke up at around 3 AM in the morning he had back pain and going into his chest. Patient tried to take nitroglycerin sublingual tablets at home but did not help with that. Patient also took baby aspirin. Pain has been persistent crushing type along with dry heaves which has been present since morning, EMS was called and patient was brought to the hospital. 08/13/2019 Patient is seen and evaluated in room at bedside; lab review shows a potassium of 3.3 Per nursing staff patient's blood sugar dropped down to 47 due to poor oral intake; we will discontinue scheduled pre-meal regular insulin and increase Levemir to 30 units daily; we will continue to monitor with Accu-Cheks every before meals and at bedtime with sliding scale Cardiothoracic surgery is following; patient is being optimized on medical management with aspirin and statin therapy and beta blockers; patient is to undergo preoperative testing with possible discharge home with plans to do surgery on 08/23/2019 Objective - Vital Signs Vital signs: Vital Signs Temp 98.5 F 08/13/19 08:50 Pulse 63 08/13/19 08:50 Resp 18 08/13/19 08:50 BP 177/83 08/13/19 08:50 Pulse Ox 97 08/13/19 08:50 Intake & Output 08/12/19 08/13/19 08/13/19 18:59 06:59 18:59 Intake Total 1186 540 240 Output Total 400 Balance 786 540 240 Weight 83.2 kg Intake: IV 350 Intake, IV Titration 375 Amount Sodium Chloride 0.9% 1, 375 000 ml @ 75 mls/hr IV . [id number] [facility] Rx#:[id number] Oral 461 540 240 Output: Urine 400 Other: Voiding Method Toilet # Voids 2 - Exam PHYSICAL EXAMINATION: GENERAL: The patient is alert and oriented x3, not in any acute distress. Well developed, well nourished. HEENT: Pupils are round and equally reacting to light. EOMI. No scleral icterus. No conjunctival pallor. Normocephalic, atraumatic. No pharyngeal erythema. No thyromegaly. CARDIOVASCULAR: S1 and S2 present. No murmurs, rubs, or gallops. PULMONARY: Chest is clear to auscultation, no wheezing or crackles. ABDOMEN: Soft, nontender, nondistended, normoactive bowel sounds. No palpable organomegaly. MUSCULOSKELETAL: No joint swelling or deformity. EXTREMITIES: No cyanosis, clubbing, or pedal edema. NEUROLOGICAL: Gross neurological examination did not reveal any focal deficits. SKIN: No rashes. - Labs CBC & Chem 7: 08/13/19 07:38 08/13/19 07:38 Labs: Abnormal Lab Results - Last 24 Hours (Table) 08/12/19 08/12/19 08/12/19 Range/Units 06:18 16:44 17:00 RBC (4.30-5.90) m/uL Hgb (13.0-17.5) gm/dL Hct (39.0-53.0) % APTT (22.0-30.0) sec Sodium (137-145) mmol/L Potassium (3.5-5.1) mmol/L Glucose (74-99) mg/dL POC Glucose (mg/dL) 156 H (75-99) mg/dL Hemoglobin A1c 8.0 H (4.0-6.0) % Total Protein (6.3-8.2) g/dL Albumin (3.5-5.0) g/dL Ur Specific [place] 1.039 H (1.001-1.035) Urine Protein 2+ H (Negative) Urine Blood Small H (Negative) Ur Leukocyte Esterase Trace H (Negative) Urine WBC 12 H (0-5) /hpf Amorphous Sediment Rare H (None) /hpf 08/12/19 08/13/19 08/13/19 Range/Units 20:23 06:55 07:38 RBC 4.15 L (4.30-5.90) m/uL Hgb 12.6 L (13.0-17.5) gm/dL Hct 38.8 L (39.0-53.0) % APTT (22.0-30.0) sec Sodium (137-145) mmol/L Potassium (3.5-5.1) mmol/L Glucose (74-99) mg/dL POC Glucose (mg/dL) 166 H 304 H (75-99) mg/dL Hemoglobin A1c (4.0-6.0) % Total Protein (6.3-8.2) g/dL Albumin (3.5-5.0) g/dL Ur Specific [place] (1.001-1.035) Urine Protein (Negative) Urine Blood (Negative) Ur Leukocyte Esterase (Negative) Urine WBC (0-5) /hpf Amorphous Sediment (None) /hpf 08/13/19 08/13/19 08/13/19 Range/Units 07:38 07:38 13:43 RBC (4.30-5.90) m/uL Hgb (13.0-17.5) gm/dL Hct (39.0-53.0) % APTT 35.1 H (22.0-30.0) sec Sodium 134 L (137-145) mmol/L Potassium 3.3 L (3.5-5.1) mmol/L Glucose 291 H (74-99) mg/dL POC Glucose (mg/dL) 48 L (75-99) mg/dL Hemoglobin A1c (4.0-6.0) % Total Protein 6.0 L (6.3-8.2) g/dL Albumin 3.4 L (3.5-5.0) g/dL Ur Specific [place] (1.001-1.035) Urine Protein (Negative) Urine Blood (Negative) Ur Leukocyte Esterase (Negative) Urine WBC (0-5) /hpf Amorphous Sediment (None) /hpf 08/13/19 08/13/19 Range/Units 13:53 14:04 RBC (4.30-5.90) m/uL Hgb (13.0-17.5) gm/dL Hct (39.0-53.0) % APTT (22.0-30.0) sec Sodium (137-145) mmol/L Potassium (3.5-5.1) mmol/L Glucose (74-99) mg/dL POC Glucose (mg/dL) 57 L 134 H (75-99) mg/dL Hemoglobin A1c (4.0-6.0) % Total Protein (6.3-8.2) g/dL Albumin (3.5-5.0) g/dL Ur Specific [place] (1.001-1.035) Urine Protein (Negative) Urine Blood (Negative) Ur Leukocyte Esterase (Negative) Urine WBC (0-5) /hpf Amorphous Sediment (None) /hpf Microbiology - Last 24 Hours (Table) 08/11/19 07:01 Blood Culture - Preliminary Blood No Growth after 48 hours 08/12/19 17:00 Nasal Screen MRSA/MSSA - Preliminary Nasopharyngeal Swab 08/12/19 17:00 Urine Culture - Preliminary Urine,Voided Assessment and Plan Plan: Chest pain possible unstable angina. Acute diabetic ketoacidosis. Anion gap closed now Hypertensive urgency Leukocytosis likely due to reactive rule out infection. Chest x-ray and UA are negative. Lactic acidosis due to volume depletion. Hypomagnesemia Coronary artery disease with history of multiple stent placement Diabetes type 2 insulin-dependent Hypertension uncontrolled. Chronic back pain Hyperlipidemia Previous history of smoking DVT prophylaxis patient is already on heparin drip Plan: Patient is being continued on heparin drip. Continue with serial troponins and EKGs. Cardiology was consulted. Planning for cath tomorrow. Patient will be started on Levemir and add preprandial insulin. Continue with insulin sliding scale for better blood sugar control. Titrate dose as needed. A1c level. Patient will be started back on home blood pressure medications and was given IV labetalol today afternoon. Continue with IV hydration and follow-up closely. Continue with pain management due to chronic back pain. White blood count remains markedly elevated; we'll consult ID for further arnie mmendations on antibiotic treatment
[2019-08-13 20:20] LABS: Glucose,Whole Blood 340 mg/dL (75-99)
[2019-08-14 06:52] LABS: Glucose,Whole Blood 185 mg/dL (75-99)
[2019-08-14] MEDS: INSULIN ASPART (NovoLOG) 100 UNIT/ML VIAL SQ SCH ×4 (06:58→21:41)
[2019-08-14] MEDS: INSULIN DETEMIR (LEVEMIR) 100 UNIT/ML SYR SQ SCH (06:59)
[2019-08-14 08:06] LABS: Basophils % (A) 0 %; Eosinophils # (A) 0.2 k/uL (0-0.7); Eosinophils % (A) 2 %; HCT 39.1 % (39.0-53.0); HGB 12.7 gm/dL (13.0-17.5); Lymphocytes # (A) 2.4 k/uL (1.0-4.8); Lymphocytes % (A) 23 %; MCHC 32.4 g/dL (31.0-37.0); MCV 92.8 fL (80.0-100.0); Mean Platelet Volume 7.7; Monocytes # (A) 0.8 k/uL (0-1.0); Monocytes % (A) 8 %; Neutrophils # (A) 6.8 k/uL (1.3-7.7); Neutrophils % (A) 66 %; Platelet Count 329 k/uL (150-450); RBC 4.22 m/uL (4.30-5.90); RDW 15.1 % (11.5-15.5); WBC 10.4 k/uL (3.8-10.6)
[2019-08-14] MEDS: SODIUM CHLORIDE 0.9% 1,000 ML IV SCH ×4 (08:08→17:34)
[2019-08-14] MEDS: HEPARIN SODIUM,PORCINE 5,000 UNIT/ML 1 ML VIAL SQ SCH ×4 (08:08→23:44)
[2019-08-14] MEDS: oxyCODONE ER 80 MG TAB.ER.12H PO SCH ×2 (08:13→21:34)
[2019-08-14] MEDS: ASPIRIN 81 MG PO SCH (08:14)
[2019-08-14] MEDS: amLODIPine 10 MG TAB PO SCH (08:14)
[2019-08-14] MEDS: ATORVASTATIN 40 MG TAB PO SCH (08:14)
[2019-08-14] MEDS: cloNIDine HCL 0.1 MG TAB PO SCH ×2 (08:14→21:33)
[2019-08-14] MEDS: DULoxetine HCL 60 MG CAPSULE.DR PO SCH ×2 (08:14→21:34)
[2019-08-14] MEDS: MUPIROCIN 2% OINT 22 GM TUBE NASAL SCH ×2 (08:15→21:37)
[2019-08-14] MEDS: ISOSORBIDE MONONITRATE ER 30 MG TAB.ER.24H PO SCH (08:15)
[2019-08-14] MEDS: NADOLOL 20 MG TAB PO SCH ×2 (08:19→21:33)
[2019-08-14] MEDS ORDERED: ISOSORBIDE MONONITRATE ER 30 MG TAB.ER.24H PO STA (09:03)
--- NOTE | 2019-08-14 11:29 | P.PN ---
Subjective Progress Note Date: 08/14/19 This is a 64-year-old male patient with history of coronary artery disease status post angioplasty of the right coronary artery in 2014, hypertension, diabetes, dyslipidemia who presented to the hospital complaining of chest pain. Pain was precordial chest pain, moderate intensity, associated with shortness of breath. Patient woke up from sleep around 3 AM, took sublingual nitroglycerin secondary to chest pain, did not improve, came to the hospital. He became gradually pain-free in the hospital at the time of initial evaluation he was pain-free. EKG did not reveal any acute ST segment elevation. Computed tomography scan of the chest negative for pulmonary embolism and aortic aneurysm. Echocardiogram showed left ventricular systolic function to be mild to moderately impaired with an ejection fraction between 40 and 45%, and trace to mild to moderate valve regurgitation. Subsequently he underwent a cardiac catheterization with Dr. Hua on 08/11 that revealed a totally occluded distal right coronary artery, a 60% ostial circumflex lesion, a 90% stenosis to his distal circumflex coronary artery, a 70% stenosis to his mid left anterior descending coronary artery and a 70% stenosis to his diagonal coronary artery. Consult was placed with cardiothoracic surgery for further evaluation and surgical recommendations. 08/12: Patient is seen today and follow-up. Patient has been evaluated by cardiothoracic surgery and workup is in process. Patient is currently chest pain-free. He denies any shortness of breath, lightheadedness or dizziness. Vital signs have been stable. Dr. Pelletier's ordered a CAT scan of the abdomen and pelvis to further evaluate leukocytosis without obvious signs of infection. Pro-calcitonin 0.07, C-reactive protein was 5.9. Leukocytosis has resolved with WBC of 9.6, hemoglobin 12.6, platelet count 344. Sodium 134, potassium 3.3, chloride 104, CO2 22, BUN 20 creatinine 0.76. Blood cultures showing no growth at 48 hours. Urine cultures in progress. 08/13: Patient states that he had an episode of chest pain in the left arm and he took nitroglycerin which relieved his pain. Heparin drip was discontinued yesterday. He has been cleared by cardiothoracic surgery or discharge with plan to return on August 22. Blood pressure is elevated 180/85 and we will make adjustments to his medications for better control. Would like to monitor the patient overnight for any additional episodes of chest pain. Physical examination: Gen: This is a 64-year-old male. Patient is resting in bed and appears to be comfortable and in no acute distress. VS: Afebrile, heart rate 61, blood pressure 180/85, pulse ox 97% on room air. HEENT: Head is atraumatic, normocephalic. Pupils equal, round. Sclerae is anicteric. NECK: Supple. No JVD. No lymphadenopathy. No thyromegaly. LUNGS: Clear to auscultation. No wheezes or rhonchi. No intercostal retr actions. HEART: Regular rate and rhythm. No murmur. ABDOMEN: Soft. Bowel sounds are present. No masses. No tenderness. EXTREMITIES: No pedal edema. No calf tenderness. NEUROLOGICAL: Patient is awake, alert and oriented x3. Cranial nerves 2 through 12 are grossly intact. Assessment: Unstable angina in patient with known history of coronary artery disease status post prior angioplasty of the right coronary artery Hypertension Diabetes Dyslipidemia Hypokalemia Plan: Cardiothoracic surgery consultation for coronary artery bypass graft scheduled for August 22 Continue amlodipine 10 mg daily, clonidine 0.1 mg twice daily Continue aspirin 81 mg daily, atorvastatin 40 mg daily Increase Imdur to 60 mg daily Add lisinopril 5 mg daily Heparin drip has been discontinued as of yesterday Further recommendations to follow based on clinical course Nurse practitioner note has been reviewed, I agree with documented findings and plan of care. Patient was seen and examined. Objective - Vital Signs Vital signs: Vital Signs Temp 97.5 F L 08/14/19 04:03 Pulse 55 L 08/14/19 04:03 Resp 20 08/14/19 04:03 BP 155/79 08/14/19 04:03 Pulse Ox 99 08/14/19 04:03 Intake & Output 08/13/19 08/14/19 08/14/19 18:59 06:59 18:59 Intake Total 1080 Output Total 1500 Balance 1080 -1500 Weight 83.4 kg Intake: Oral 1080 Output: Urine 1500 Other: Voiding Method Toilet # Voids 1 - Labs CBC & Chem 7: 08/14/19 06:33 08/13/19 07:38 Labs: Abnormal Lab Results - Last 24 Hours (Table) 08/13/19 08/13/19 08/13/19 Range/Units 13:43 13:53 14:04 RBC (4.30-5.90) m/uL Hgb (13.0-17.5) gm/dL APTT (22.0-30.0) sec POC Glucose (mg/dL) 48 L 57 L 134 H (75-99) mg/dL 08/13/19 08/13/19 08/13/19 Range/Units 14:59 16:43 20:18 RBC (4.30-5.90) m/uL Hgb (13.0-17.5) gm/dL APTT 35.4 H (22.0-30.0) sec POC Glucose (mg/dL) 239 H 340 H (75-99) mg/dL 08/14/19 08/14/19 Range/Units 06:33 06:51 RBC 4.22 L (4.30-5.90) m/uL Hgb 12.7 L (13.0-17.5) gm/dL APTT (22.0-30.0) sec POC Glucose (mg/dL) 185 H (75-99) mg/dL Microbiology - Last 24 Hours (Table) 08/12/19 17:00 Urine Culture - Final Urine,Voided 08/12/19 15:00 Blood Culture - Preliminary Blood No Growth after 24 hours 08/11/19 07:01 Blood Culture - Preliminary Blood No Growth after 48 hours
[2019-08-14 12:00] LABS: Glucose,Whole Blood 131 mg/dL (75-99)
--- NOTE | 2019-08-14 12:16 | P.PN ---
Subjective Progress Note Date: 08/14/19 Principal diagnosis: Symptomatic multivessel coronary artery disease. This is a 64-year-old gentleman who is followed by Dr. Dexter Ji on an outpatient basis. He is a past medical history significant for coronary artery disease with history of stent placement to his right coronary artery in 2014, hypertension, hyperlipidemia, daily marijuana use, remote history of nicotine dependence quit smoking 25 years ago, chronic lower back pain, insulin-dependent diabetes mellitus type 2, and a family history of early onset coronary artery disease with his dad being diagnosed in his early 50s. He presented to the emergency department here at [facility] on 08/11/2019 via EMS with complaints of substernal chest pain without radiation, shortness of breath, nausea and vomiting. The patient reports that when he got up during the middle the night to use the restroom the chest pain developed. He said he vomited 3 times in the emergency department. He denies any recent fever, chills, cough, orthopnea, presyncope or syncope. Lab results in the emergency department showed negative serial troponins, WBCs 16.3, hemoglobin 16.1, hematocrit 49.1, platelets 301, potassium 3.3, CO2 19, BUN 14, creatinine 0.62, lactic acid 3.6, magnesium 1.5 and TSH 1.400. A 12-lead EKG was completed which shows sinus tachycardia heart rate 122 BPM. The CTA angiogram thoracic, abdomen and pelvis and aorta was negative for aortic aneurysm or pulmonary embolism. A 2-D ech ocardiogram was also completed which showed an overall left ventricular systolic function to be mild to moderately impaired with an ejection fraction between 40 and 45%, and trace to mild pulmonic valve regurgitation. Subsequently he was seen by Dr. Hua from [facility] and underwent a cardiac catheterization today. The cardiac catheterization results demonstrated a totally occluded distal right coronary artery, a 60% ostial circumflex lesion, a 90% stenosis to his distal circumflex coronary artery, a 70% stenosis to his mid left anterior descending coronary artery and a 70% stenosis to his diagonal coronary artery. Due to the patient's history of coronary artery disease with stent placement, his presenting symptoms and cardiac catheterization results a consult was placed to Dr. Cris Denson from cardiothoracic surgery for further evaluation and surgical recommendations. POD #2 left heart catheterization with coronary angiography performed by Dr. Hua. The patient was seen in follow-up on 08/14/2019 at his bedside on the cardiac stepdown unit. He is awake, alert and oriented 3, eating his breakfast and is in no acute distress. He denies any further complaints of chest pain and denies any complaints of shortness of breath. No recorded fevers in the last 24 hours, he is hemodynamically stable and his oxygen saturations are 99% on room air. He is achieving 2000 mL on his incentive spirometry with encouragement. Bedside FEV1 was completed yesterday as part of the preoperative workup which demonstrated a 72% of predicted value. Dr. Denson met with the patient yesterday, discuss the risks and benefits of myocardial revascularization surgery and knowing and understanding the risks the patient wishes to proceed with the option of myocardial revascularization surgery. Laboratory results this morning show a normal WBC count of 10.4, hemoglobin 12.7, hematocrit 39.1, platelets 329, and blood glucose this morning of 185. A carotid duplex was completed yesterday which showed no significant flow-limiting stenosis to be evident. Objective - Vital Signs Vital signs: Vital Signs Temp 97.5 F L 08/14/19 04:03 Pulse 55 L 08/14/19 04:03 Resp 20 08/14/19 04:03 BP 155/79 08/14/19 04:03 Pulse Ox 99 08/14/19 04:03 Intake & Output 08/13/19 08/14/19 08/14/19 18:59 06:59 18:59 Intake Total 1080 240 Output Total 1500 Balance 1080 -1500 240 Weight 83.4 kg Intake: Oral 1080 240 Output: Urine 1500 Other: Voiding Method Toilet # Voids 1 - Exam This is a pleasant 64-year-old gentleman who is laying in bed on the cardiac stepdown unit. He is awake, alert and oriented 3 and is in no acute distress. Oxygen saturation are 99% on room air. - Constitutional General appearance: Present: cooperative, no acute distress, obese - EENT Eyes: Present: PERRLA, poor dentition, normal appearance. Absent: scleral icterus ENT: Present: hearing grossly normal. Absent: thrush - Neck Details: Neck is supple, no JVD. Neck: Absent: lymphadenopathy - Respiratory Details: Lung sounds essentially clear throughout, diminished to his bilateral bases. No wheezes, rhonchi or crackles present. Respirations are symmetrical and nonlabored. Oxygen saturation 99% on room air. Achieving 2000 mL on his incentive spirometry. - Cardiovascular Details: Regular rhythm and rate. S1 and S2 present, negative for S3, gallop or murmur. - Gastrointestinal Gastrointestinal Comment(s): Abdomen is soft, nontender and nondistended. Active bowel sounds present all 4 abdominal quadrant. No guarding or rigidity. No organomegaly appreciated. - Integumentary Integumentary Comment(s): Skin is warm and dry. No clubbing or cyanosis is present. No rash or abnormal pigmentation is present. - Neurologic Neurologic: Present: CNII-XII intact - Musculoskeletal Musculoskeletal: Present: gait normal, generalized weakness, strength equal bilaterally - Psychiatric Psychiatric: Present: A&O x's 3, appropriate affect, intact judgment & insight - Allied health notes Allied health notes reviewed: nursing - Labs CBC & Chem 7: 08/14/19 06:33 08/13/19 07:38 Labs: Abnormal Lab Results - Last 24 Hours (Table) 08/13/19 08/13/19 08/13/19 Range/Units 13:43 13:53 14:04 RBC (4.30-5.90) m/uL Hgb (13.0-17.5) gm/dL APTT (22.0-30.0) sec POC Glucose (mg/dL) 48 L 57 L 134 H (75-99) mg/dL 08/13/19 08/13/19 08/13/19 Range/Units 14:59 16:43 20:18 RBC (4.30-5.90) m/uL Hgb (13.0-17.5) gm/dL APTT 35.4 H (22.0-30.0) sec POC Glucose (mg/dL) 239 H 340 H (75-99) mg/dL 08/14/19 08/14/19 Range/Units 06:33 06:51 RBC 4.22 L (4.30-5.90) m/uL Hgb 12.7 L (13.0-17.5) gm/dL APTT (22.0-30.0) sec POC Glucose (mg/dL) 185 H (75-99) mg/dL Microbiology - Last 24 Hours (Table) 08/11/19 07:01 Blood Culture - Preliminary Blood No Growth after 72 hours 08/12/19 17:00 Urine Culture - Final Urine,Voided 08/12/19 15:00 Blood Culture - Preliminary Blood No Growth after 24 hours Assessment and Plan Assessment: 1. Symptomatic multivessel coronary artery disease, history of stent placement to his right coronary artery in 2007 and 2014 2. Unstable angina 3. Hypertension 4. Dyslipidemia 5. Insulin-dependent diabetes mellitus, admission hemoglobin A1c 8.0 6. Remote history of smoking quit over 25 years ago 7. Family history of early onset coronary artery disease, his father diagnosed in his early 50s 8. Daily marijuana use 9. Peripheral vascular disease, bilateral ankle-brachial index less than 0.9. (0.84 on the right and 0.80 on the left). 10. Leukocytosis, unknown etiology 11. Chronic low back pain Plan: 1. Continue to optimize medical management with aspirin, statin and beta belkis and blood sugar control. 2. A 5 meter walk test was completed Time 1: 5.30 seconds, Time 2: 4.70 seconds, Time 3: 5.83 seconds. 3. Preoperative testing remains in progress, reinforced preoperative teaching with the patient and a binder for heart surgery: Road to healthy heart given to the patient and discussed with the patient. 4. STS risk score will be calculated and discussed with the patient by Dr. Cris Denson. 5. Encourage use of his incentive spirometry 10 times every hour while awake. 6. Per the cardiothoracic surgery standpoint, the patient could be discharged home and brought back to the hospital for myocardial revascularization surgery tentatively on 08/23/2019 to be performed by Dr. Cris Denson with QUINONES/endoscopic left radial artery and endoscopic vein harvest. 7. Pulmonary medicine consulted for pulmonary management preoperative. 8. More recommendations to follow based on patient's clinical course. Time with Patient: Greater than 30
[2019-08-14] MEDS: LISINOPRIL 5 MG TAB PO SCH (12:44)
--- NOTE | 2019-08-14 13:13 | P.CNPUL ---
History of Present Illness Consult date: 08/14/19 Requesting physician: Cris Denson Reason for consult: other (Pending coronary artery bypass grafting) Chief complaint: Chest pain History of present illness: This is a pleasant 64-year-old gentleman who follows with Dr. Ji as his primary care provider. He has a history of hypertension, hyperlipidemia, diabetes mellitus, coronary artery disease with previous myocardial infarction and multiple stent placement with last one being in 2014. He is a former smoker. Not on home oxygen. Not on home inhalers. He presented here on 08/11/2019 with complaints of substernal chest pain. Echocardiogram revealed mild to moderately impaired left ventricular systolic function with ejection fra ction 40-45%. He subsequently undergone cardiac catheterization which revealed a totally occluded distal right coronary artery, 60% ostial circumflex lesion, 90% stenosis of the distal circumflex artery, 70% stenosis of the mid LAD and 77% stenosis of the diagonal. He was recommended coronary artery bypass revascularization. We're consulted for the same. He is seen today in consultation on the selective care unit. He is currently awake and alert in no acute distress. Denies any shortness of breath, cough or congestion. Maintaining good O2 saturations in the 90s on room air. He's been afebrile. Blood cultures revealed no growth. Urine culture reveals no growth. White count 10.4. Hemoglobin 12.7. Sodium 134. Potassium 3.3. Creatinine 0.76. Blood glucose 131. CoVID 19 screen negative. Review of Systems REVIEW OF SYSTEMS: CONSTITUTIONAL: Denies any recent significant weight loss or weight gain. EYES: Denies change in vision. EARS, NOSE, MOUTH, THROAT: Denies headaches, denies sore throat. CARDIOVASCULAR: Positive for chest pain, no palpitations or syncopal episodes. RESPIRATORY: Denies shortness of breath, cough, congestion or hemoptysis. GASTROINTESTINAL: Denies change in appetite, denies abdominal pain GENITOURINARY: Denies hematuria, denies infections. MUSKULOSKELETAL: Denies pain, denies swelling. INTEGUMENTARY: Denies rash, denies eczema. NEUROLOGICAL: Denies recent memory loss, no recent seizure activity. PSYCHIATRIC: Denies anxiety, denies depression. HEMATOLOGIC/LYMPHATIC: Denies anemia, denies enlarged lymph nodes. Past Medical History Past Medical History: Coronary Artery Disease (CAD), Chest Pain / Angina, Diabetes Mellitus, Hyperlipidemia, Hypertension Additional Past Medical History / Comment(s): Other HX: Chronic lower back pain and bilateral leg pain, Last Myocardial Infarction Date:: 03/20/2015 History of Any Multi-Drug Resistant Organisms: None Reported Past Surgical History: Back Surgery, Heart Catheterization With Stent, Orthopedic Surgery Additional Past Surgical History / Comment(s): knee, ankle surgery-pt believes it was his R ankle. pt states he has a total of 5 heart stents Past Anesthesia/Blood Transfusion Reactions: No Reported Reaction Additional Past Anesthesia/Blood Transfusion Reaction / Comment(s): recieved blood after severe nose bleed, needed to be cauterized after recieving too much aspirin. Date of Last Stent Placement:: 02/2015 Smoking Status: Former smoker - Past Family History Sister(s) Family Medical History: Coronary Artery Disease (CAD), Hypertension Father Family Medical History: Coronary Artery Disease (CAD), Diabetes Mellitus, Deep Vein Thrombosis (DVT), Hypertension Additional Family Medical History / Comment(s): Father at age 58yrs. He of blood clot from leg injury that went to his heart. Medications and Allergies Home Medications Medication Instructions Recorded Confirmed Type amLODIPine [Norvasc] 10 mg PO DAILY #30 tab 04/04/14 08/11/19 Rx glipiZIDE [Glipizide] 5 mg PO BID 03/20/15 08/11/19 History Atorvastatin [Lipitor] 40 mg PO DAILY 10/03/17 08/11/19 History cloNIDine HCL [Catapres] 0.1 mg PO BID 10/03/17 08/11/19 History Aspirin EC [Ecotrin Low Dose] 81 mg PO DAILY 08/11/19 08/11/19 History Insulin Glargine,Hum.rec.anlog 25 unit SQ HS 08/11/19 08/11/19 History [Basaglar Kwikpen U-100] Naloxegol Oxalate [Movantik] 25 mg PO DAILY 08/11/19 08/11/19 History Allergies Allergy/AdvReac Type Severity Reaction Status Date / Time No Known Allergies Allergy Verified 08/11/19 14:12 Physical Exam Vitals: Vital Signs Temp Pulse Resp BP Pulse Ox 08/14/19 08:05 98.5 F 61 18 180/85 97 08/14/19 04:03 97.5 F L 55 L 16 155/79 99 08/13/19 23:46 98.1 F 70 18 156/86 97 08/13/19 20:00 98.0 F 74 20 177/78 95 08/13/19 16:30 97.9 F 65 18 131/70 94 L Intake and Output 08/13/19 08/14/19 08/14/19 22:59 06:59 14:59 Intake Total 480 240 Output Total 225 1275 Balance 255 -1275 240 Intake: Oral 480 240 Output: Urine 225 1275 Other: Voiding Method Toilet Toilet # Voids 1 Weight 83.4 kg GENERAL EXAM: Pleasant 64-year-old gentleman, alert, active, on room air, comfortable in no apparent distress. HEAD: Normocephalic. EYES: Normal reaction of pupils, equal size. NOSE: Clear with pink turbinates. THROAT: No erythema or exudates. NECK: No masses, no JVD. CHEST: No chest wall deformity. LUNGS: Equal air entry with no crackles, wheeze, rhonchi or dullness. CVS: S1 and S2 normal with no audible murmur, regular rhythm. ABDOMEN: No hepatosplenomegaly, normal bowel sounds, no guarding or rigidity. SPINE: No scoliosis or deformity SKIN: No rashes CENTRAL NERVOUS SYSTEM: No focal deficits, tone is normal in all 4 extremities. EXTREMITIES: There is no peripheral edema. No clubbing, no cyanosis. Peripheral pulses are intact. Results - Laboratory Findings CBC and BMP: 08/14/19 06:33 08/13/19 07:38 PT/INR, D-dimer PT 10.0 sec (9.0-12.0) 08/11/19 07:15 INR 1.0 (<1.2) 08/11/19 07:15 D-Dimer 0.18 mg/L FEU (<0.60) 08/11/19 15:02 Abnormal lab findings: Abnormal Labs 08/11/19 08/11/19 08/11/19 06:19 06:19 07:01 WBC 16.3 H RBC Hgb Hct Plt Count Neutrophils # 13.5 H Monocytes # APTT Sodium Potassium 3.3 L Carbon Dioxide 19 L Creatinine 0.62 L Glucose 251 H POC Glucose (mg/dL) Hemoglobin A1c Plasma Lactic Acid [place] 3.6 H* Calcium 10.7 H Magnesium 1.5 L Alkaline Phosphatase 159 H Total Protein 8.3 H Albumin HDL Cholesterol Ur Specific [place] Urine Protein Urine Glucose (UA) Urine Ketones Urine Blood Ur Leukocyte Esterase Urine RBC Urine WBC Amorphous Sediment 08/11/19 08/11/19 08/11/19 08:20 11:08 11:27 WBC RBC Hgb Hct Plt Count Neutrophils # Monocytes # APTT Sodium Potassium Carbon Dioxide Creatinine 0.54 L Glucose 169 H POC Glucose (mg/dL) 161 H Hemoglobin A1c Plasma Lactic Acid [place] Calcium Magnesium Alkaline Phosphatase Total Protein Albumin HDL Cholesterol Ur Specific [place] 1.044 H Urine Protein 2+ H Urine Glucose (UA) 4+ H Urine Ketones 2+ H Urine Blood Small H Ur Leukocyte Esterase Urine RBC 8 H Urine WBC Amorphous Sediment 08/11/19 08/11/19 08/11/19 11:45 15:02 16:40 WBC 13.3 H RBC Hgb Hct Plt Count Neutrophils # 11.7 H Monocytes # APTT 33.0 H Sodium Potassium Carbon Dioxide Creatinine Glucose POC Glucose (mg/dL) 225 H Hemoglobin A1c Plasma Lactic Acid [place] Calcium Magnesium Alkaline Phosphatase Total Protein Albumin HDL Cholesterol Ur Specific [place] Urine Protein Urine Glucose (UA) Urine Ketones Urine Blood Ur Leukocyte Esterase Urine RBC Urine WBC Amorphous Sediment 08/11/19 08/11/19 08/12/19 19:59 23:00 05:46 WBC RBC Hgb Hct Plt Count Neutrophils # Monocytes # APTT 39.1 H Sodium Potassium Carbon Dioxide Creatinine Glucose POC Glucose (mg/dL) 243 H 159 H Hemoglobin A1c Plasma Lactic Acid [place] Calcium Magnesium Alkaline Phosphatase Total Protein Albumin HDL Cholesterol Ur Specific [place] Urine Protein Urine Glucose (UA) Urine Ketones Urine Blood Ur Leukocyte Esterase Urine RBC Urine WBC Amorphous Sediment 08/12/19 08/12/19 08/12/19 06:18 06:18 06:18 WBC 19.3 H RBC Hgb Hct Plt Count 482 H Neutrophils # 16.3 H Monocytes # 1.2 H APTT Sodium Potassium 3.0 L Carbon Dioxide Creatinine Glucose 172 H POC Glucose (mg/dL) Hemoglobin A1c 8.0 H Plasma Lactic Acid [place] Calcium Magnesium Alkaline Phosphatase Total Protein Albumin HDL Cholesterol 62 H Ur Specific [place] Urine Protein Urine Glucose (UA) Urine Ketones Urine Blood Ur Leukocyte Esterase Urine RBC Urine WBC Amorphous Sediment 08/12/19 08/12/19 08/12/19 06:18 11:44 16:44 WBC RBC Hgb Hct Plt Count Neutrophils # Monocytes # APTT 49.2 H Sodium Potassium Carbon Dioxide Creatinine Glucose POC Glucose (mg/dL) 177 H 156 H Hemoglobin A1c Plasma Lactic Acid [place] Calcium Magnesium Alkaline Phosphatase Total Protein Albumin HDL Cholesterol Ur Specific [place] Urine Protein Urine Glucose (UA) Urine Ketones Urine Blood Ur Leukocyte Esterase Urine RBC Urine WBC Amorphous Sediment 08/12/19 08/12/19 08/13/19 17:00 20:23 06:55 WBC RBC Hgb Hct Plt Count Neutrophils # Monocytes # APTT Sodium Potassium Carbon Dioxide Creatinine Glucose POC Glucose (mg/dL) 166 H 304 H Hemoglobin A1c Plasma Lactic Acid [place] Calcium Magnesium Alkaline Phosphatase Total Protein Albumin HDL Cholesterol Ur Specific [place] 1.039 H Urine Protein 2+ H Urine Glucose (UA) Urine Ketones Urine Blood Small H Ur Leukocyte Esterase Trace H Urine RBC Urine WBC 12 H Amorphous Sediment Rare H 08/13/19 08/13/19 08/13/19 07:38 07:38 07:38 WBC RBC 4.15 L Hgb 12.6 L Hct 38.8 L Plt Count Neutrophils # Monocytes # APTT 35.1 H Sodium 134 L Potassium 3.3 L Carbon Dioxide Creatinine Glucose 291 H POC Glucose (mg/dL) Hemoglobin A1c Plasma Lactic Acid [place] Calcium Magnesium Alkaline Phosphatase Total Protein 6.0 L Albumin 3.4 L HDL Cholesterol Ur Specific [place] Urine Protein Urine Glucose (UA) Urine Ketones Urine Blood Ur Leukocyte Esterase Urine RBC Urine WBC Amorphous Sediment 08/13/19 08/13/19 08/13/19 13:43 13:53 14:04 WBC RBC Hgb Hct Plt Count Neutrophils # Monocytes # APTT Sodium Potassium Carbon Dioxide Creatinine Glucose POC Glucose (mg/dL) 48 L 57 L 134 H Hemoglobin A1c Plasma Lactic Acid [place] Calcium Magnesium Alkaline Phosphatase Total Protein Albumin HDL Cholesterol Ur Specific [place] Urine Protein Urine Glucose (UA) Urine Ketones Urine Blood Ur Leukocyte Esterase Urine RBC Urine WBC Amorphous Sediment 08/13/19 08/13/19 08/13/19 14:59 16:43 20:18 WBC RBC Hgb Hct Plt Count Neutrophils # Monocytes # APTT 35.4 H Sodium Potassium Carbon Dioxide Creatinine Glucose POC Glucose (mg/dL) 239 H 340 H Hemoglobin A1c Plasma Lactic Acid [place] Calcium Magnesium Alkaline Phosphatase Total Protein Albumin HDL Cholesterol Ur Specific [place] Urine Protein Urine Glucose (UA) Urine Ketones Urine Blood Ur Leukocyte Esterase Urine RBC Urine WBC Amorphous Sediment 0508/14/19 08/14/19 06:33 06:51 11:58 WBC RBC 4.22 L Hgb 12.7 L Hct Plt Count Neutrophils # Monocytes # APTT Sodium Potassium Carbon Dioxide Creatinine Glucose POC Glucose (mg/dL) 185 H 131 H Hemoglobin A1c Plasma Lactic Acid [place] Calcium Magnesium Alkaline Phosphatase Total Protein Albumin HDL Cholesterol Ur Specific [place] Urine Protein Urine Glucose (UA) Urine Ketones Urine Blood Ur Leukocyte Esterase Urine RBC Urine WBC Amorphous Sediment - Diagnostic Findings Chest x-ray: image reviewed (No acute pulmonary process) Assessment and Plan Assessment: 1 Unstable angina in a patient found to have significant coronary artery disease, pending coronary artery revascularization 2 History of coronary artery disease with multiple stent placements most recently in 2014 3 Previous chronic tobacco dependence 4 Daily marijuana use 5 Hypertension 6 Hyperlipidemia 7 Diabetes mellitus, poorly controlled, hemoglobin A1c 8.0 8 Family history of coronary artery disease Plan The patient was seen and evaluated by Dr. Iglesias Chest x-ray, computed tomography scan and labs reviewed Echo reviewed Educated regarding the use of the incentive spirometer and importance of cough and deep breathing exercises Encouraged regarding completely marijuana use cessation Better blood sugar control Plan is for possible discharge and to be brought back at a later date Tentative surgery scheduled for 08/23/2019 We'll follow in the immediate postoperative period I, the cosigning physician, performed a history & physical examination of the patient. Lungs sounds are clear. Maintaining good O2 saturations in the 90s on room air. I discussed the assessment and plan of care with my nurse practitioner, Mervat Graf. I attest to the above note as dictated by her. Time with Patient: Greater than 30
--- NOTE | 2019-08-14 17:11 | P.PN ---
Subjective Progress Note Date: 08/14/19 Principal diagnosis: Unstable angina Hypertensive urgency DK Multivessel coronary artery disease 64-year-old male with a known history of coronary artery disease and multiple stent placement, diabetes type 2, hypertension, hyperlipidemia, chronic low back pain and previous history of smoking came to ER with the complaints of chest pain. Patient states that as soon as he woke up at around 3 AM in the morning he had back pain and going into his chest. Patient tried to take nitroglycerin sublingual tablets at home but did not help with that. Patient also took baby aspirin. Pain has been persistent crushing type along with dry heaves which has been present since morning, EMS was called and patient was brought to the hospital. 08/13/2019 Patient is seen and evaluated in room at bedside; lab review shows a potassium of 3.3 Per nursing staff patient's blood sugar dropped down to 47 due to poor oral intake; we will discontinue scheduled pre-meal regular insulin and increase Levemir to 30 units daily; we will continue to monitor with Accu-Cheks every before meals and at bedtime with sliding scale Cardiothoracic surgery is following; patient is being optimized on medical management with aspirin and statin therapy and beta blockers; patient is to undergo preoperative testing with possible discharge home with plans to do surgery on 08/23/2019 08/14/2019 Patient is seen and evaluated in selective care unit He is currently awake and alert in no acute distress. Denies any shortness of breath, cough or congestion. Maintaining good O2 saturations in the 90s on room air. He's been afebrile. Blood cultures revealed no growth. Urine culture reveals no growth. White count 10.4. Hemoglobin 12.7. Sodium 134. Potassium 3.3. Creatinine 0.76. Blood glucose 131. CoVID 19 screen negative. Cardiothoracic surgery is following; patient is being optimized on medical management with aspirin and statin therapy and beta blockers; patient is to undergo preoperative testing with possible discharge home with plans to do surgery on 08/23/2019 Pulmonary service is consulted for surgical clearance and for pre-and post operative management; plan is for patient to be discharged home when okayed by cardiothoracic surgery with tentative surgery scheduled for 08/23/2019 Objective - Vital Signs Vital signs: Vital Signs Temp 98.5 F 08/14/19 08:05 Pulse 61 08/14/19 08:05 Resp 18 08/14/19 08:05 BP 180/85 08/14/19 08:05 Pulse Ox 97 08/14/19 08:05 Intake & Output 08/13/19 08/14/19 08/14/19 18:59 06:59 18:59 Intake Total 1080 240 Output Total 1500 Balance 1080 -1500 240 Weight 83.4 kg Intake: Oral 1080 240 Output: Urine 1500 Other: Voiding Method Toilet # Voids 1 - Exam PHYSICAL EXAMINATION: GENERAL: The patient is alert and oriented x3, not in any acute distress. Well developed, well nourished. HEENT: Pupils are round and equally reacting to light. EOMI. No scleral icterus. No conjunctival pallor. Normocephalic, atraumatic. No pharyngeal erythema. No thyromegaly. CARDIOVASCULAR: S1 and S2 present. No murmurs, rubs, or gallops. PULMONARY: Chest is clear to auscultation, no wheezing or crackles. ABDOMEN: Soft, nontender, nondistended, normoactive bowel sounds. No palpable organomegaly. MUSCULOSKELETAL: No joint swelling or deformity. EXTREMITIES: No cyanosis, clubbing, or pedal edema. NEUROLOGICAL: Gross neurological examination did not reveal any focal deficits. SKIN: No rashes. - Labs CBC & Chem 7: 08/14/19 06:33 08/13/19 07:38 Labs: Abnormal Lab Results - Last 24 Hours (Table) 08/13/19 08/13/19 08/13/19 Range/Units 14:04 14:59 16:43 RBC (4.30-5.90) m/uL Hgb (13.0-17.5) gm/dL APTT 35.4 H (22.0-30.0) sec POC Glucose (mg/dL) 134 H 239 H (75-99) mg/dL 08/13/19 08/14/19 08/14/19 Range/Units 20:18 06:33 06:51 RBC 4.22 L (4.30-5.90) m/uL Hgb 12.7 L (13.0-17.5) gm/dL APTT (22.0-30.0) sec POC Glucose (mg/dL) 340 H 185 H (75-99) mg/dL 08/14/19 Range/Units 11:58 RBC (4.30-5.90) m/uL Hgb (13.0-17.5) gm/dL APTT (22.0-30.0) sec POC Glucose (mg/dL) 131 H (75-99) mg/dL Microbiology - Last 24 Hours (Table) 08/12/19 17:00 Nasal Screen MRSA/MSSA - Final Nasopharyngeal Swab 08/11/19 07:01 Blood Culture - Preliminary Blood No Growth after 72 hours 08/12/19 17:00 Urine Culture - Final Urine,Voided 08/12/19 15:00 Blood Culture - Preliminary Blood No Growth after 24 hours Assessment and Plan Plan: Chest pain possible unstable angina. Acute diabetic ketoacidosis. Anion gap closed now Hypertensive urgency Leukocytosis likely due to reactive rule out infection. Chest x-ray and UA are negative. Lactic acidosis due to volume depletion. Hypomagnesemia Coronary artery disease with history of multiple stent placement Diabetes type 2 insulin-dependent Hypertension uncontrolled. Chronic back pain Hyperlipidemia Previous history of smoking DVT prophylaxis patient is already on heparin drip Plan: Patient is being continued on heparin drip. Continue with serial troponins and EKGs. Cardiology was consulted. Planning for cath tomorrow. Patient will be started on Levemir and add preprandial insulin. Continue with insulin sliding scale for better blood sugar control. Titrate dose as needed. A1c level. Patient will be started back on home blood pressure medications and was given IV labetalol today afternoon. Continue with IV hydration and follow-up closely. Continue with pain management due to chronic back pain. White blood count remains markedly elevated; we'll consult ID for further recommendations on antibiotic treatment
[2019-08-14 17:15] LABS: Glucose,Whole Blood 254 mg/dL (75-99)
[2019-08-14 20:41] LABS: Glucose,Whole Blood 134 mg/dL (75-99)
--- NOTE | 2019-08-14 23:57 | PN ---
PROGRESS NOTE DATE OF SERVICE: 08/14/2019 REASON FOR FOLLOWUP: Leukocytosis. INTERVAL HISTORY: The patient is currently afebrile. The patient is breathing comfortably. Denies having any chest pain or shortness of breath or cough. No nausea, vomiting. No abdominal pain. PHYSICAL EXAMINATION: Blood pressure 129/72 with a pulse of 55, temperature 98.2. He is 91% on room air. General description is a middle-aged male lying in bed in no distress. RESPIRATORY SYSTEM: Unlabored breathing, clear to auscultation anteriorly. HEART: S1, S2. Regular rate and rhythm. ABDOMEN: Soft, no tenderness. LABS: Hemoglobin is 12.7, white count 10.4. Blood cultures remain to be negative. Urine is negative. DIAGNOSTIC IMPRESSION AND PLAN: Patient with leukocytosis more likely reactive in this patient currently with no obvious focus of infection, negative, culture negative and white count normalized. No need for any systemic antibiotics. MMODL / IJN: [id number] /
[2019-08-15 05:59] LABS: Glucose,Whole Blood 204 mg/dL (75-99)
[2019-08-15] MEDS: SODIUM CHLORIDE 0.9% 1,000 ML IV SCH ×2 (06:12→07:00)
[2019-08-15 06:53] LABS: Basophils # (A) 0.1 k/uL (0-0.2); Basophils % (A) 1 %; Eosinophils # (A) 0.2 k/uL (0-0.7); Eosinophils % (A) 1 %; HCT 40.8 % (39.0-53.0); HGB 12.7 gm/dL (13.0-17.5); Lymphocytes # (A) 2.5 k/uL (1.0-4.8); Lymphocytes % (A) 21 %; MCH 28.7 pg (25.0-35.0); MCV 92.5 fL (80.0-100.0); Monocytes % (A) 8 %; Neutrophils # (A) 8.5 k/uL (1.3-7.7); Neutrophils % (A) 68 %; Platelet Count 394 k/uL (150-450); RBC 4.41 m/uL (4.30-5.90); RDW 14.9 % (11.5-15.5); WBC 12.4 k/uL (3.8-10.6)
[2019-08-15] MEDS: INSULIN ASPART (NovoLOG) 100 UNIT/ML VIAL SQ SCH ×2 (06:59→12:21)
[2019-08-15] MEDS: INSULIN DETEMIR (LEVEMIR) 100 UNIT/ML SYR SQ SCH (06:59)
[2019-08-15] MEDS: LISINOPRIL 5 MG TAB PO SCH (08:35)
[2019-08-15] MEDS: DULoxetine HCL 60 MG CAPSULE.DR PO SCH (08:35)
[2019-08-15] MEDS: ATORVASTATIN 40 MG TAB PO SCH (08:35)
[2019-08-15] MEDS: cloNIDine HCL 0.1 MG TAB PO SCH (08:35)
[2019-08-15] MEDS: amLODIPine 10 MG TAB PO SCH (08:35)
[2019-08-15] MEDS: oxyCODONE ER 80 MG TAB.ER.12H PO SCH (08:36)
[2019-08-15] MEDS: NADOLOL 20 MG TAB PO SCH (08:36)
[2019-08-15] MEDS: ASPIRIN 81 MG PO SCH (08:36)
[2019-08-15 08:40] VITALS: RESP 16; TEMP 98.2
[2019-08-15] MEDS ORDERED: ISOSORBIDE MONONITRATE ER 60 MG TAB.ER.24H PO SCH (09:00)
--- NOTE | 2019-08-15 10:20 | P.PN ---
Subjective Progress Note Date: 08/15/19 Principal diagnosis: Symptomatic multivessel coronary artery disease. This is a 64-year-old gentleman who is followed by Dr. Dexter Ji on an outpatient basis. He is a past medical history significant for coronary artery disease with history of stent placement to his right coronary artery in 2014, hypertension, hyperlipidemia, daily marijuana use, remote history of nicotine dependence quit smoking 25 years ago, chronic lower back pain, insulin-dependent diabetes mellitus type 2, and a family history of early onset coronary artery disease with his dad being diagnosed in his early 50s. He presented to the emergency department here at [facility] on 08/11/2019 via EMS with complaints of substernal chest pain without radiation, shortness of breath, nausea and vomiting. The patient reports that when he got up during the middle the night to use the restroom the chest pain developed. He said he vomited 3 times in the emergency department. He denies any recent fever, chills, cough, orthopnea, presyncope or syncope. Lab results in the emergency department showed negative serial troponins, WBCs 16.3, hemoglobin 16.1, hematocrit 49.1, platelets 301, potassium 3.3, CO2 19, BUN 14, creatinine 0.62, lactic acid 3.6, magnesium 1.5 and TSH 1.400. A 12-lead EKG was completed which shows sinus tachycardia heart rate 122 BPM. The CTA angiogram thoracic, abdomen and pelvis and aorta was negative for aortic aneurysm or pulmonary embolism. A 2-D ech ocardiogram was also completed which showed an overall left ventricular systolic function to be mild to moderately impaired with an ejection fraction between 40 and 45%, and trace to mild pulmonic valve regurgitation. Subsequently he was seen by Dr. Hua from [facility] and underwent a cardiac catheterization today. The cardiac catheterization results demonstrated a totally occluded distal right coronary artery, a 60% ostial circumflex lesion, a 90% stenosis to his distal circumflex coronary artery, a 70% stenosis to his mid left anterior descending coronary artery and a 70% stenosis to his diagonal coronary artery. Due to the patient's history of coronary artery disease with stent placement, his presenting symptoms and cardiac catheterization results a consult was placed to Dr. Cris Denson from cardiothoracic surgery for further evaluation and surgical recommendations. POD #3 left heart catheterization with coronary angiography performed by Dr. Hua. The patient was seen and examined at his bedside on the cardiac stepdown unit in follow-up on 08/15/2019. He is resting with comfortably in bed, he is in no acute distress, is awake, alert and oriented 3. He remained hemodynamically stable and is currently on no inotropic or pressor support. He denies any complaints of chest pain, back pain or shortness of breath in the last 24 hours. Oxygen saturations are 99% on room air and is achieving 2500 mL on his incentive spirometry. Preoperative teaching has been reinforced with the patient in regards to myocardial revascularization surgery and his questions were answered to the best my ability. He is still having some episodes of hypertension with his blood pressure recording this morning showing 154/75 mmHg. The patient remains afebrile the last 24 hours. Objective - Vital Signs Vital signs: Vital Signs Temp 98.2 F 08/15/19 08:00 Pulse 58 L 08/15/19 08:00 Resp 16 08/15/19 08:00 BP 154/75 08/15/19 08:00 Pulse Ox 100 08/15/19 08:00 Intake & Output 08/14/19 08/15/19 08/15/19 18:59 06:59 18:59 Intake Total 1080 540 236 Output Total 350 Balance 1080 190 236 Weight 82 kg Intake: Oral 1080 540 236 Output: Urine 350 Other: Voiding Method Toilet # Voids 3 3 - Exam This is a pleasant 64-year-old gentleman who is laying in bed on the cardiac stepdown unit. He is awake, alert and oriented 3 and is in no acute distress. Oxygen saturation are 99% on room air. - Constitutional General appearance: Present: average body habitus, cooperative, no acute distress - EENT Eyes: Present: PERRLA, poor dentition, normal appearance. Absent: scleral icterus ENT: Present: hearing grossly normal. Absent: thrush - Neck Details: Neck supple, no JVD. Neck: Absent: lymphadenopathy - Respiratory Details: Lung sounds are essentially clear throughout. No wheezes, crackles or rhonchi. Respirations are symmetrical and nonlabored. - Cardiovascular Details: Regular rhythm and rate. S1 and S2 present, negative for S3, gallop or murmur. - Gastrointestinal Gastrointestinal Comment(s): Abdomen is soft, nontender and nondistended. Active bowel sounds present in all 4 abdominal quadrants. No guarding or rigidity. No organomegaly appreciated. - Integumentary Integumentary Comment(s): Skin is warm and dry. No clubbing or cyanosis is present. No rash or abnormal pigmentation is present. - Neurologic Neurologic: Present: CNII-XII intact - Musculoskeletal Musculoskeletal: Present: gait normal (Normal for the patient. Walks with a cane at home.), generalized weakness, strength equal bilaterally - Psychiatric Psychiatric: Present: A&O x's 3, appropriate affect, intact judgment & insight - Allied health notes Allied health notes reviewed: nursing - Labs CBC & Chem 7: 08/15/19 05:28 08/13/19 07:38 Labs: Abnormal Lab Results - Last 24 Hours (Table) 08/14/19 08/14/19 08/14/19 Range/Units 11:58 17:14 20:40 WBC (3.8-10.6) k/uL Hgb (13.0-17.5) gm/dL Neutrophils # (1.3-7.7) k/uL POC Glucose (mg/dL) 131 H 254 H 134 H (75-99) mg/dL 08/15/19 08/15/19 Range/Units 05:28 05:53 WBC 12.4 H (3.8-10.6) k/uL Hgb 12.7 L (13.0-17.5) gm/dL Neutrophils # 8.5 H (1.3-7.7) k/uL POC Glucose (mg/dL) 204 H (75-99) mg/dL Microbiology - Last 24 Hours (Table) 08/11/19 07:01 Blood Culture - Preliminary Blood No Growth after 96 hours 08/12/19 15:00 Blood Culture - Preliminary Blood No Growth after 48 hours 08/12/19 17:00 Nasal Screen MRSA/MSSA - Final Nasopharyngeal Swab - Imaging and Cardiology Radial artery studies reviewed. Assessment and Plan Assessment: 1. Symptomatic multivessel coronary artery disease, history of stent placement to his right coronary artery in 2007 and 2014 2. Unstable angina 3. Hypertension 4. Dyslipidemia 5. Insulin-dependent diabetes mellitus, admission hemoglobin A1c 8.0 6. Remote history of smoking quit over 25 years ago 7. Family history of early onset coronary artery disease, his father diagnosed in his early 50s 8. Daily marijuana use 9. Peripheral vascular disease, bilateral ankle-brachial index less than 0.9. (0.84 on the right and 0.80 on the left). 10. Leukocytosis, unknown etiology 11. Chronic low back pain Plan: 1. Continue to optimize medical management with aspirin, statin, PRAMOD inhibitor and beta belkis and blood sugar control. 2. Preoperative testing remains in progress, reinforced preoperative teaching with the patient. 3. Encourage use of his incentive spirometry 10 times every hour while awake. 4. Per the cardiothoracic surgery standpoint, when okay with primary care service and cardiology the patient could be discharged home and brought back to the hospital for myocardial revascularization surgery on 08/23/2019 to be performed by Dr. Cris Denson with QUINONES/endoscopic left radial artery and endoscopic vein harvest. 5. Pulmonary medicine consult noted and appreciated. 6. More recommendations to follow based on patient's clinical course. Time with Patient: Greater than 30
[2019-08-15 11:49] LABS: Glucose,Whole Blood 239 mg/dL (75-99)
[2019-08-15] MEDS: HEPARIN SODIUM,PORCINE 5,000 UNIT/ML 1 ML VIAL SQ SCH (12:22)
[2019-08-15 12:27] VITALS: BP 141/74; PULSE 54
--- NOTE | 2019-08-15 12:51 | P.PN ---
Subjective Progress Note Date: 08/15/19 This is a 64-year-old gentleman who has a known history of hypertension, hyperlipidemia, diabetes, coronary artery disease with previous myocardial infarction and multiple stent placements, last one being in 2014, former nicotine dependence. Presented to the hospital with symptoms of chest discomfort. His echocardiogram with Doppler study revealed mild to moderately impaired left ventricular systolic function with an ejection fraction of 40-45%. Subsequently patient underwent a cardiac catheterization which revealed a totally occluded distal right coronary artery, 60% ostial circumflex, 90% stenos is of the distal circumflex, 70% stenosis of the mid LAD and 70% stenosis of the diagonal and patient was recommended coronary artery bypass grafting surgery. He has been seen in consultation by cardiothoracic surgery and the plan is for the patient to be discharged home and return next Thursday. He was seen and examined this morning and is overall doing well. Denies any chest discomfort and his breathing is stable. His blood pressure this morning 154/70 with a heart rate in the 50s, 100% on room air. White blood cell count 12.4, hemoglobin 12.7, platelet count 394. Objective - Vital Signs Vital signs: Vital Signs Temp 98.2 F 08/15/19 08:00 Pulse 54 L 08/15/19 12:00 Resp 16 08/15/19 12:00 BP 141/74 08/15/19 12:00 Pulse Ox 94 L 08/15/19 12:00 Intake & Output 08/14/19 08/15/19 08/15/19 18:59 06:59 18:59 Intake Total 1080 540 236 Output Total 350 Balance 1080 190 236 Weight 82 kg Intake: Oral 1080 540 236 Output: Urine 350 Other: Voiding Method Toilet Toilet # Voids 3 3 - Exam GENERAL EXAM: Pleasant 64-year-old gentleman, alert, active, on room air, comfortable in no apparent distress. HEAD: Normocephalic. EYES: Normal reaction of pupils, equal size. NOSE: Clear with pink turbinates. THROAT: No erythema or exudates. NECK: No masses, no JVD. CHEST: No chest wall deformity. LUNGS: Equal air entry with no crackles, wheeze, rhonchi or dullness. CVS: S1 and S2 normal with no audible murmur, regular rhythm. ABDOMEN: No hepatosplenomegaly, normal bowel sounds, no guarding or rigidity. SPINE: No scoliosis or deformity SKIN: No rashes CENTRAL NERVOUS SYSTEM: No focal deficits, tone is normal in all 4 extremities. EXTREMITIES: There is no peripheral edema. No clubbing, no cyanosis. Peripheral pulses are intact. - Labs CBC & Chem 7: 08/15/19 05:28 08/13/19 07:38 Labs: Abnormal Lab Results - Last 24 Hours (Table) 08/14/19 08/14/19 08/15/19 Range/Units 17:14 20:40 05:28 WBC 12.4 H (3.8-10.6) k/uL Hgb 12.7 L (13.0-17.5) gm/dL Neutrophils # 8.5 H (1.3-7.7) k/uL POC Glucose (mg/dL) 254 H 134 H (75-99) mg/dL 08/15/19 08/15/19 Range/Units 05:53 11:47 WBC (3.8-10.6) k/uL Hgb (13.0-17.5) gm/dL Neutrophils # (1.3-7.7) k/uL POC Glucose (mg/dL) 204 H 239 H (75-99) mg/dL Microbiology - Last 24 Hours (Table) 08/11/19 07:01 Blood Culture - Preliminary Blood No Growth after 96 hours 08/12/19 15:00 Blood Culture - Preliminary Blood No Growth after 48 hours 08/12/19 17:00 Nasal Screen MRSA/MSSA - Final Nasopharyngeal Swab Assessment and Plan Plan: Assessment and plan: 1 Unstable angina in a patient found to have significant coronary artery disease, pending coronary artery revascularization which is scheduled next Thursday 2 History of coronary artery disease with multiple stent placements most recently in 2014 3 Previous chronic tobacco dependence 4 Daily marijuana use 5 Hypertension 6 Hyperlipidemia 7 Diabetes mellitus, poorly controlled, hemoglobin A1c 8.0 8 Family history of coronary artery disease Plan We will increase the patient's dose of lisinopril to 10 mg daily. From cardiology's perspective, the patient may be able to be discharged home today. He is scheduled to undergo coronary artery bypass grafting surgery a week from tomorrow. DNP note has been reviewed, I agree with a documented findings and plan of care. Patient was seen and examined.
--- NOTE | 2019-08-15 13:22 | P.PN ---
Subjective Progress Note Date: 08/15/19 Principal diagnosis: Coronary artery disease, pending coronary artery bypass grafting This is a pleasant 64-year-old gentleman who follows with Dr. Ji as his primary care provider. He has a history of hypertension, hyperlipidemia, diabetes mellitus, coronary artery disease with previous myocardial infarction and multiple stent placement with last one being in 2014. He is a former smoker. Not on home oxygen. Not on home inhalers. He presented here on 08/11/2019 with complaints of substernal chest pain. Echocardiogram revealed mild to moderately impaired left ventricular systolic function with ejection fraction 40-45%. He subsequently undergone cardiac catheterization which revealed a totally occluded distal right coronary artery, 60% ostial circumflex lesion, 90% stenosis of the distal circumflex artery, 70% stenosis of the mid LAD and 77% stenosis of the diagonal. He was recommended coronary artery bypass revascularization. We're consulted for the same. He is seen today in consultation on the selective care unit. He is currently awake and alert in no acute distress. Denies any shortness of breath, cough or congestion. Maintaining good O2 saturations in the 90s on room air. He's been afebrile. Blood cultures revealed no growth. Urine culture reveals no growth. White count 10.4. Hemoglobin 12.7. Sodium 134. Potassium 3.3. Creatinine 0.76. Blood glucose 131. CoVID 19 screen negative. On 08/15/2019 patient seen in follow-up selective care unit, he is calm and comfortable, in no acute distress, denies any chest pain, denies any shortness of breath, no acute events overnight, her pulse ox is 94%, his been afebrile, hemodynamically stable, respirations are even and nonlabored, lung sounds are clear to auscultation, incentive spirometry was completed revealing FEV1 of 73% and FVC of 79% of predicted. His labs have been reviewed, showing white blood cell, 12.4, hemoglobin of 12.7. Patient has been cleared for discharge by cardiology, his bypass surgery is scheduled next week. Objective - Vital Signs Vital signs: Vital Signs Temp 98.2 F 08/15/19 08:00 Pulse 54 L 08/15/19 12:00 Resp 16 08/15/19 12:00 BP 141/74 08/15/19 12:00 Pulse Ox 94 L 05/18/20 12:00 Intake & Output 08/14/19 08/15/19 08/15/19 18:59 06:59 18:59 Intake Total 1080 540 236 Output Total 350 Balance 1080 190 236 Weight 82 kg Intake: Oral 1080 540 236 Output: Urine 350 Other: Voiding Method Toilet Toilet # Voids 3 3 - Exam GENERAL EXAM: Alert, very pleasant, 64-year-old male with room air pulse ox of 94%, comfortable in no apparent distress. HEAD: Normocephalic/atraumatic. EYES: Normal reaction of pupils, equal size. Conjunctiva pink, sclera white. NOSE: Clear with pink turbinates. THROAT: No erythema or exudates. NECK: No masses, no JVD, no thyroid enlargement, no adenopathy. CHEST: No chest wall deformity. Symmetrical expansion. LUNGS: Equal air entry with no crackles, wheeze, rhonchi or dullness. CVS: Regular rate and rhythm, normal S1 and S2, no gallops, no murmurs, no rubs ABDOMEN: Soft, nontender. No hepatosplenomegaly, normal bowel sounds, no guarding or rigidity. EXTREMITIES: No clubbing, no edema, no cyanosis, 2+ pulses and upper and lower extremities. MUSCULOSKELETAL: Muscle strength and tone normal. SPINE: No scoliosis or deformity SKIN: No rashes CENTRAL NERVOUS SYSTEM: Alert and oriented -3. No focal deficits, tone is normal in all 4 extremities. PSYCHIATRIC: Alert and oriented -3. Appropriate affect. Intact judgment and insight. - Labs CBC & Chem 7: 08/15/19 05:28 08/13/19 07:38 Labs: Abnormal Lab Results - Last 24 Hours (Table) 08/14/19 08/14/19 08/15/19 Range/Units 17:14 20:40 05:28 WBC 12.4 H (3.8-10.6) k/uL Hgb 12.7 L (13.0-17.5) gm/dL Neutrophils # 8.5 H (1.3-7.7) k/uL POC Glucose (mg/dL) 254 H 134 H (75-99) mg/dL 08/15/19 08/15/19 Range/Units 05:53 11:47 WBC (3.8-10.6) k/uL Hgb (13.0-17.5) gm/dL Neutrophils # (1.3-7.7) k/uL POC Glucose (mg/dL) 204 H 239 H (75-99) mg/dL Microbiology - Last 24 Hours (Table) 08/11/19 07:01 Blood Culture - Preliminary Blood No Growth after 96 hours 08/12/19 15:00 Blood Culture - Preliminary Blood No Growth after 48 hours 08/12/19 17:00 Nasal Screen MRSA/MSSA - Final Nasopharyngeal Swab Assessment and Plan Plan: Assessment: 1 Unstable angina in a patient found to have significant coronary artery disease, pending coronary artery revascularization 2 History of coronary artery disease with multiple stent placements most recently in 2014 3 Previous chronic tobacco dependence 4 Daily marijuana use 5 Hypertension 6 Hyperlipidemia 7 Diabetes mellitus, poorly controlled, hemoglobin A1c 8.0 8 Family history of coronary artery disease Plan: Preop bedside spirometry has been reviewed FEV1 to FVC ratio of 92 percent, mild obstruction, patient clinically doing well, no complaints of chest pain, increase activity as tolerated, his surgery's been scheduled for next week. Cleared for discharge by cardiology, from pulmonary perspective he is cleared for discharge and will see him next week after his surgery I performed a history & physical examination of the patient and discussed their management with my nurse practitioner, Florence Mazariegos. I reviewed the nurse practitioner's note and agree with the documented findings and plan of care. Lung sounds are positive for clear breath sounds. The findings and the impression was discussed with the patient. I attest to the documentation by the nurse practitioner. Time with Patient: Less than 30
--- NOTE | 2019-08-15 15:11 | PN ---
PROGRESS NOTE DATE OF SERVICE: 08/15/2019 REASON FOR FOLLOWUP: Leukocytosis, likely reactive. INTERVAL HISTORY: The patient is currently afebrile. Patient has been breathing comfortably. Patient denies having any chest pain or shortness of breath or cough. No nausea, vomiting, abdominal pain or diarrhea. PHYSICAL EXAMINATION: Blood pressure 141/75 with a pulse of 84, temperature 98.2. He is 94% on room air. General description is a middle-aged male, lying in bed in no distress. RESPIRATORY SYSTEM: Unlabored breathing, clear to auscultation anteriorly. HEART: S1, S2. Regular rate and rhythm. LABS: Cultures remain to be negative. DIAGNOSTIC IMPRESSION AND PLAN: Patient with leukocytosis, likely reactive and obvious clinical focus of infection. Patient's leukocytosis is resolved without antibiotic therapy and culture has been negative. No need for antibiotic on discharge. Continue supportive care. MMODL / IJN: [id number] /
[2019-08-16] MEDS ORDERED: LISINOPRIL 10 MG TAB PO SCH (09:00)
--- NOTE | 2019-08-17 12:51 | P.ARTDOP ---
Arterial Doppler Bilateral radial artery studies: Reason for studies: Preop CABG Date of study: 08/14/2019 Doppler waveformsshow no significant right to left or segmental pressure gradients. Imaging shows the right radial to be 2.3 x 2.7 distal, 2.9 x 3.7 mm mid, 2.9 x 2.7 mm proximal. Left radial is 1.8 x 2.2 distal, 2.5 x 2.8 mm mid, and 2.1 x 2.4 mm.with digital plethysmography and radial artery compression we see no significant pressure changes. Impression: Both radial arteries are usable. Left has marginal distal size
--- NOTE | 2019-08-17 12:56 | P.VSCSTY ---
Greater Saphenous Vein Mapping This is bilateral lower extremity greater saphenous vein mapping. Date of service: 08/12/2019 Vein quality and ultrasound appearance: We see no endoluminal changes or thrombus.. Vein size groin right : 3.2 x 3.2 groin left: 2.1 x 2.1 High thigh right: 2.2 x 2.2 high thigh left: 2.3 x 1.8 Mid thigh right: 1.5 x 1.5 mid thigh left: 2.1 x 2.1 Above-knee right: 1.9 x 1.7 above- knee left: 1.9 x 1.8 Below knee right: 1.7 x 1.8 below-knee left: 1.9 x 1.6 Mid calf right: 1.8 x 1 mid calf left: To small to calibrate Ankle right: 1.6 x 1.0 ankle left: To small calibrate Lesser saphenous veins are not readable Impression: There may be a small amount of very proximal vein that is adequate but very questionable. Most of the veins on both sides are too small for use as conduit..
--- NOTE | 2019-08-17 12:59 | P.ARTDOP ---
Arterial Doppler LOWER EXTREMITY ARTERIAL DOPPLER: DATE OF SERVICE: 08/13/2019 Reason for study: Preop CABG. Doppler waveforms: Multiphasic bilaterally throughout. Pulse volume recording: []. Pressure gradients: At the calf level. Ankle-brachial indices: 0.84 on the right and 0.80 on the left. Toe brachial indices: 0.53 on the right, 0.55 on the left Impression: Possible mild iliofemoral occlusive disease. Clinical correlation recommended. Tissue perfusion probably adequate for healing..
--- NOTE | 2019-08-19 13:06 | P.CARDCATH ---
Date of Procedure: 08/12/19 Preoperative Diagnosis: Unstable angina Postoperative Diagnosis: Triple-vessel disease Procedure(s) Performed: Left heart catheterization without left ventriculography Description of Procedure: HISTORY: This is a 64-year-old gentleman with history of ischemic heart disease and previous stent placement RCA is admitted to the hospital with complaints of chest pain size to of unstable angina. His cardiac enzymes studies showed mild elevation of troponin but not clinically significant. Because of recurrent chest pain, Patient is advised to have a cardiac catheterization for definitive diagnosis CONSENT:I have discussed the risks, benefits and alternative therapies for the above-mentioned procedure and for both sedation/analgesia as well as necessary blood product administration, if indicated, as they pertain to this patient. The patient has indicated understanding and acceptance of the risks and procedures discussed. PROCEDURE: Patient was brought to the lab in a fasting state. Patient was given IV sedation. The right wrist is infiltrated with lidocaine and right radial artery was entered using Seldinger technique. A 6-Maori catheter was left in place and selective coronary arteriography was performed. Patient tolerated the procedure well. TR band was applied for hemostasis. No immediate complications were noted and patient was transferred to [facility] in a stable condition Conscious Sedation: Versed 2 mg Fentanyl [] g Duration 27 minutes HEMODYNAMICS: The aortic pressure is about 130/70. No gradient across the aortic valve SELECTIVE CORONARY ARTERIOGRAPHY: LEFT MAIN: This is a good caliber vessel with mild distal stenosis THE LEFT ANTERIOR DESCENDING CORONARY ARTERY:. This is a fairly caliber vessel giving rise to good caliber diagonal branch. The LAD has about 70-80% stenosis in midportion after the origin of the diagonal. The diagonal branch has about 70-80% stenosis THE LEFT CIRCUMFLEX AND IS CORONARY ARTERY:. This is a good caliber vessel giving rise to 2 OM branches. The second OM branch has ostial 80-90% stenosis THE RIGHT CORONARY ARTERY:. This is totally occluded in the midportion. There is a long segment with a stents. There are collaterals from the left to the distal RCA LEFT VENTRICULOGRAPHY: Not performed FINAL IMPRESSION:. Triple-vessel disease with total occlusion of RCA, critical lesion in the mid LAD and also first diagonal and also the OM branch PLAN: Coronary bypass surgery with the graft to the LAD and possible graft to the diagonal and OM branch PROGNOSIS: Guarded
--- NOTE | 2019-08-23 22:44 | P.DS ---
Providers Date of admission: 08/13/19 13:11 Expected date of discharge: 08/15/19 Attending physician: Shalom Velásquez Consults: 08/11/19 07:58 Consult Physician Urgent Consulting Provider: Heriberto Arredondo Consult Reason/Comments: Chest pain Do you want consulting provider notified?: Yes, Notify in am 08/12/19 11:21 Consult Physician Urgent Consulting Provider: Cris Denson Consult Reason/Comments: TRIPLE VESSEL BLOCKAGE Do you want consulting provider notified?: Already Contacted 08/12/19 13:01 Consult Physician Routine Consulting Provider: Diana Pelletier Consult Reason/Comments: leukocytosis Do you want consulting provider notified?: Yes 08/14/19 08:47 Consult Physician Routine Consulting Provider: Taco Iglesias Consult Reason/Comments: Pulmonary Management Do you want consulting provider notified?: Yes [facility]: Discharge diagnosis Multivessel coronary artery disease. s/p Cath. CABG scheduled Unstable angina Hypertensive urgency Acute diabetic ketoacidosis. Anion gap closed now Hypertensive urgency Leukocytosis likely due to reactive rule out infection. Chest x-ray and UA are negative. Lactic acidosis due to volume depletion. Hypomagnesemia Coronary artery disease with history of multiple stent placement Diabetes type 2 insulin-dependent Hypertension uncontrolled. Chronic back pain Hyperlipidemia Previous history of smoking DVT prophylaxis patient is already on heparin drip Hospital course 64-year-old male with a known history of coronary artery disease and multiple stent placement, diabetes type 2, hypertension, hyperlipidemia, chronic low back pain and previous history of smoking came to ER with the complaints of chest pain. Patient states that as soon as he woke up at around 3 AM in the morning he had back pain and going into his chest. Patient tried to take nitroglycerin sublingual tablets at home but did not help with that. Patient also took baby aspirin. Pain has been persistent crushing type along with dry heaves which has been present since morning, EMS was called and patient was brought to the hospital. 08/13/2019 Patient is seen and evaluated in room at bedside; lab review shows a potassium of 3.3 Per nursing staff patient's blood sugar dropped down to 47 due to poor oral intake; we will discontinue scheduled pre-meal regular insulin and increase Levemir to 30 units daily; we will continue to monitor with Accu-Cheks every before meals and at bedtime with sliding scale Cardiothoracic surgery is following; patient is being optimized on medical management with aspirin and statin therapy and beta blockers; patient is to undergo preoperative testing with possible discharge home with plans to do surgery on 08/23/2019 08/14/2019 Patient is seen and evaluated in selective care unit He is currently awake and alert in no acute distress. Denies any shortness of breath, cough or congestion. Maintaining good O2 saturations in the 90s on room air. He's been afebrile. Blood cultures revealed no growth. Urine culture reveals no growth. White count 10.4. Hemoglobin 12.7. Sodium 134. Potassium 3.3. Creatinine 0.76. Blood glucose 131. CoVID 19 screen negative. Cardiothoracic surgery is following; patient is being optimized on medical management with aspirin and statin therapy and beta blockers; patient is to undergo preoperative testing with possible discharge home with plans to do surgery on 08/23/2019 08/15/2019 Patient is currently lying in the bed comfortably. Denies any complaints of chest pain or shortness of breath. Insulin dose was adjusted and blood pressure is still elevated but medications were adjusted. Cardiology and CT surgery has seen the patient. Patient is scheduled for coronary bypass graft on 08/23/2019 Patient is being discharged home today. PHYSICAL EXAMINATION: GENERAL: The patient is alert and oriented x3, not in any acute distress. Well developed, well nourished. HEENT: Pupils are round and equally reacting to light. EOMI. No scleral icterus. No conjunctival pallor. Normocephalic, atraumatic. No pharyngeal erythema. No thyromegaly. CARDIOVASCULAR: S1 and S2 present. No murmurs, rubs, or gallops. PULMONARY: Chest is clear to auscultation, no wheezing or crackles. ABDOMEN: Soft, nontender, nondistended, normoactive bowel sounds. No palpable organomegaly. MUSCULOSKELETAL: No joint swelling or deformity. EXTREMITIES: No cyanosis, clubbing, or pedal edema. NEUROLOGICAL: Gross neurological examination did not reveal any focal deficits. SKIN: No rashes. Vital Signs Temp 98.2 F 08/15/19 08:00 Pulse 54 L 08/15/19 12:00 Resp 16 08/15/19 12:00 BP 141/74 08/15/19 12:00 Pulse Ox 94 L 08/15/19 12:00 Intake & Output 08/14/19 08/15/19 08/15/19 18:59 06:59 18:59 Intake Total 1080 540 236 Output Total 350 Balance 1080 190 236 Weight 82 kg Intake: Oral 1080 540 236 Output: Urine 350 Other: Voiding Method Toilet Toilet # Voids 3 3 Vital Signs Temp 98.2 F 08/15/19 08:00 Pulse 54 L 08/15/19 12:00 Resp 16 08/15/19 12:00 BP 141/74 08/15/19 12:00 Pulse Ox 94 L 08/15/19 12:00 Intake & Output 08/14/19 08/15/19 08/15/19 18:59 06:59 18:59 Intake Total 1080 540 236 Output Total 350 Balance 1080 190 236 Weight 82 kg Intake: Oral 1080 540 236 Output: Urine 350 Other: Voiding Method Toilet Toilet Time taken greater than 35 minutes in which more than half of time spent on counseling and coordination of care. # Voids 3 3 Time taken greater than 35 minutes in which more than half of time spent on counseling and coordination of care. Patient Condition at Discharge: Serious Plan - Discharge Summary New Discharge Prescriptions: New Nadolol [Corgard] 20 mg PO BID #60 tab Isosorbide Mononitrate ER [Imdur] 60 mg PO DAILY #30 tab.er.24h Nitroglycerin Sl Tabs [Nitrostat] 0.4 mg SUBLINGUAL Q5M PRN #30 tab PRN Reason: Chest Pain DULoxetine HCL [Cymbalta] 60 mg PO DAILY capsule. oxyCODONE ER [OxyCONTIN] 80 mg PO BID tab.er.12h Lisinopril [Zestril] 10 mg PO DAILY #30 tab Continue amLODIPine [Norvasc] 10 mg PO DAILY #30 tab glipiZIDE [Glipizide] 5 mg PO BID cloNIDine HCL [Catapres] 0.1 mg PO BID Atorvastatin [Lipitor] 40 mg PO DAILY Aspirin EC [Ecotrin Low Dose] 81 mg PO DAILY Insulin Glargine,Hum.rec.anlog [Basaglar Kwikpen U-100] 25 unit SQ HS Discontinued Naloxegol Oxalate [Movantik] 25 mg PO DAILY No Action oxyCODONE-APAP 5-325MG [Percocet 5-325 mg] 1 tab PO BID metFORMIN HCL [Glucophage] 500 mg PO BID Discharge Medication List amLODIPine [Norvasc] 10 mg PO DAILY #30 tab 04/04/14 [Rx] glipiZIDE [Glipizide] 5 mg PO BID 03/20/15 [History] Atorvastatin [Lipitor] 40 mg PO DAILY 10/03/17 [History] cloNIDine HCL [Catapres] 0.1 mg PO BID 10/03/17 [History] Aspirin EC [Ecotrin Low Dose] 81 mg PO DAILY 08/11/19 [History] Insulin Glargine,Hum.rec.anlog [Basaglar Kwikpen U-100] 25 unit SQ HS 08/11/19 [History] DULoxetine HCL [Cymbalta] 60 mg PO DAILY capsule. 08/15/19 [Rx] Isosorbide Mononitrate ER [Imdur] 60 mg PO DAILY #30 tab.er.24h 08/15/19 [Rx] Lisinopril [Zestril] 10 mg PO DAILY #30 tab 08/15/19 [Rx] Nadolol [Corgard] 20 mg PO BID #60 tab 08/15/19 [Rx] Nitroglycerin Sl Tabs [Nitrostat] 0.4 mg SUBLINGUAL Q5M PRN #30 tab 08/15/19 [Rx] oxyCODONE ER [OxyCONTIN] 80 mg PO BID tab.er.12h 08/15/19 [Rx] metFORMIN HCL [Glucophage] 500 mg PO BID 08/19/19 [History] oxyCODONE-APAP 5-325MG [Percocet 5-325 mg] 1 tab PO BID 08/19/19 [History] Follow up Appointment(s)/Referral(s): Dexter Ji DO [Primary Care Provider] - 1-2 days Patient Instructions/Handouts: *Surgery [facility] - After Heart Catheterization - [employer] Instructions, Left Heart Catheterization (DC) Discharge Disposition: HOME SELF-CARE
== END 2019-08-15 15:39 | disposition home or self-care (01) | DRG 286 ==
LOC: EC 06:04 → 3SCARD 08:22 → OBSVTOIN 08-13 13:11
PROVIDERS: ADMIT Hospitalist; ATTEND Hospitalist
PROC: B2111ZZ Fluoroscopy of Multiple Coronary Arteries using Low Osmolar Contrast (ICD-10-PCS; principal; 2019-08-12 09:50)
PROC: 4A023N7 Measurement of Cardiac Sampling and Pressure, Left Heart, Percutaneous Approach (ICD-10-PCS; principal; 2019-08-12 09:50)
DX: I25.110 Atherosclerotic heart disease of native coronary artery with unstable angina pectoris (principal); E11.10 Type 2 diabetes mellitus with ketoacidosis without coma; E11.51 Type 2 diabetes mellitus with diabetic peripheral angiopathy without gangrene; I25.82 Chronic total occlusion of coronary artery; D72.829 Elevated white blood cell count, unspecified; E78.5 Hyperlipidemia, unspecified; E83.42 Hypomagnesemia; E86.9 Volume depletion, unspecified; E87.6 Hypokalemia; G89.29 Other chronic pain; I10 Essential (primary) hypertension; I16.0 Hypertensive urgency; I25.2 Old myocardial infarction; M54.5 Low back pain; M79.605 Pain in left leg; M79.604 Pain in right leg; Z11.59 Encounter for screening for other viral diseases; Z79.4 Long term (current) use of insulin; Z79.82 Long term (current) use of aspirin; Z79.899 Other long term (current) drug therapy; Z95.5 Presence of coronary angioplasty implant and graft; Z87.891 Personal history of nicotine dependence; Z82.49 Family history of ischemic heart disease and other diseases of the circulatory system; Z83.3 Family history of diabetes mellitus
CPT/HCPCS: 36415; 71046; 71275; 74174; 74176; 80048; 80053; 80061; 80074; 81001; 82009; 83036; 83605; 83690; 83735; 84145; 84443; 84484; 85025; 85379; 85610; 85730; 86140; 87040; 87070; 87086; 87635; 93005; 93306; 93458; 93880; 93923; 93930; 93970; 94150; 96365; 96367; 96375; 96376; 99291

== ENCOUNTER → 2019-08-19 | Outpatient (CLI) | payer MEDICARE | END | disposition home or self-care (01) | LOC: LABWHC1 09:49 | PROVIDERS: ATTEND Surgery | DX: Z11.59 Encounter for screening for other viral diseases (principal) | CPT/HCPCS: 87635 ==

== ENCOUNTER 2019-08-23 05:35 | Inpatient (IN) | payer MEDICARE ==
[~2019-08-23 05:35] MED LIST: ALBUMIN HUMAN 25% 50 ML IV ONE; ALBUMIN HUMAN 5% 500 ML IVPB ONE; ASPIRIN 325 MG TAB PO ONE; ATORVASTATIN 10 MG TAB PO ONE; CALCIUM CHLORIDE 100 MG/ML 10 ML SYRINGE IV ONE; CHLORHEXIDINE GLUCONATE 15 ML CUP MUCOUS MEM ONE; CLEVIDIPINE BUTYRATE 25 MG in EMPTY BAG 1 BAG IV ONE; DEXTROSE 5% IN WATER 1,000 ML with POTASSIUM CHLORIDE 110 MEQ, MAGNESIUM SULFATE 16 MEQ... IV ONE; DEXTROSE 5% IN WATER 1,000 ML with POTASSIUM CHLORIDE 25 MEQ, SODIUM CHLORIDE 2.5MEQ/ML... IRRIGATION ONE; HEPARIN SODIUM 1,000 UN/ML (10ML VL) IV ONE; HEPARIN SODIUM,PORCINE 5,000 UNIT in SODIUM CHLORIDE 0.9% 500 ML 500 ML IV ONE; INSULIN REGULAR 100 UNIT in SODIUM CHLORIDE 0.9% 100 ML IV ONE; LACTATED RINGERS 1,000 ML IV ONE; MAGNESIUM SULFATE MG 500 MG/ML IV ONE; MANNITOL 25% 12.5 GM/50 ML VIAL IV ONE; METOPROLOL TARTRATE 12.5 MG TAB PO ONE; NITROGLYCERIN-D5W PMX 25 MG/250 ML BTL IV ONE; NITROGLYCERIN-D5W PMX 50 MG in DEXTROSE/WATER 1 250ML.BAG IV ONE; NOREPINEPHRINE 4 MG in SODIUM CHLORIDE 0.9% 250 ML IV ONE; PHENYLEPHRINE 10 MG/ML VIAL IV ONE; PHENYLEPHRINE 40 MG in SODIUM CHLORIDE 0.9% 250 ML IV ONE; PROPOFOL 1,000 MG/100 ML VIAL IV ONE; PROTAMINE SULFATE 10 MG/ML 25 ML VIAL IV ONE; PROTAMINE SULFATE 250 MG in EMPTY BAG 1 BAG IV ONE; SODIUM BICARB 8.4% 50 ML SYR (1 MEQ/ML) IV ONE; SODIUM CHLORIDE 0.9% 1,000 ML IV ONE; TRANEXAMIC ACID 2,000 MG in SODIUM CHLORIDE 0.9% 80 ML IV ONE; VANCOMYCIN 1,000 MG VIAL MISCELLANE ONE; ceFAZolin 1,000 MG in SODIUM CHLORIDE 0.9% IRRIGATIO 1,000 ML IRRIGATION ONE; ceFAZolin 2,000 MG in SODIUM CHLORIDE 0.9% 30 ML IVPB ONE
[2019-08-23] MEDS ORDERED: LIDOCAINE 1% (10MG/ML) FOR IV START INTRADERMA ONE (06:07)
[2019-08-23 06:08] LABS: Glucose,Whole Blood 152 mg/dL (75-99)
[2019-08-23 06:28] LABS: African American GFR (CKD) >90 (>60 ml/min/1.73 sqM); Anion Gap 9 mmol/L; Blood Urea Nitrogen 14 mg/dL (9-20); Calcium 9.4 mg/dL (8.4-10.2); Carbon Dioxide 26 mmol/L (22-30); Chloride 104 mmol/L (98-107); Glucose 142 mg/dL (74-99); Non-African American GFR(CKD) >90 (>60 ml/min/1.73 sqM); Sodium 139 mmol/L (137-145)
[2019-08-23] MEDS ORDERED: SODIUM CHLORIDE 0.9% IRRIG 3,000 ML BAG IRRIGATION ONE (07:46)
[2019-08-23] MEDS ORDERED: LIDOCAINE 2% SYG (PF) 100 MG/5 ML ONE (07:46)
[2019-08-23] MEDS ORDERED: VECURONIUM 10 MG VIAL IV ONE (07:46)
[2019-08-23] MEDS ORDERED: ACETAMINOPHEN IV (For NPO) 1,000 MG/100 ML VIAL ONE (07:46)
[2019-08-23] MEDS ORDERED: PROTAMINE SULFATE 10 MG/ML 25 ML VIAL IV ONE (07:46)
[2019-08-23] MEDS ORDERED: MILRINONE-D5W PMX 20 MG/100 ML BAG IV ONE (07:46)
[2019-08-23] MEDS ORDERED: NITROGLYCERIN-D5W PMX 50 MG/250 ML BOTTLE IV ONE (07:46)
[2019-08-23] MEDS ORDERED: fentaNYL (PF) 50 MCG/ML 50 ML VIAL ONE (07:46)
[2019-08-23] MEDS ORDERED: TRANEXAMIC ACID 1,000 MG/10 ML VIAL ONE (07:46)
[2019-08-23] MEDS ORDERED: MIDAZOLAM 2 MG/2 ML VIAL ONE (07:46)
[2019-08-23] MEDS ORDERED: SUFentanil 50 MCG/ML 2ML AMP ONE (07:46)
[2019-08-23] MEDS ORDERED: GLYCOPYRROLATE 0.2 MG/ML 2 ML VIAL ONE (07:46)
[2019-08-23] MEDS ORDERED: LACTATED RINGERS 1,000 ML BAG IV ONE (07:46)
[2019-08-23] MEDS ORDERED: INSULIN REGULAR 100 UNIT/ML VIAL ONE (07:46)
[2019-08-23] MEDS ORDERED: POTASSIUM CHLORIDE OPEN HEART 20 MEQ/50 ML BAG IVPB ONE (07:46)
[2019-08-23] MEDS ORDERED: ALBUMIN HUMAN 5% (25gm) 500 ML VIAL IVPB ONE (07:46)
[2019-08-23] MEDS ORDERED: HEPARIN SODIUM,PORCINE 10,000 UNIT/ML 1 ML VIAL ONE (07:46)
[2019-08-23] MEDS ORDERED: SODIUM CHLORIDE 0.9% 250 ML BAG ONE (07:46)
[2019-08-23] MEDS ORDERED: MAGNESIUM SULFATE 4 MEQ/ML 10ML VIAL ONE (07:46)
[2019-08-23] MEDS ORDERED: WATER FOR INJECTION, STERILE 10 ML VIAL IV ONE (07:46)
[2019-08-23] MEDS ORDERED: PROPOFOL 10 MG/ML 20 ML VIAL IV ONE (07:46)
[2019-08-23] MEDS ORDERED: fentaNYL (PF) 50 MCG/ML 2 ML AMP ONE (07:46)
[2019-08-23] MEDS ORDERED: DILTIAZEM 125 MG in SODIUM CHLORIDE 0.9% 100 ML IV STA (08:09)
[2019-08-23 08:40] LABS: ABG Base Excess 2.3 mmol/L; ABG Glucose Whole Blood 128 mg/dL (75-99); ABG HCO3 27 mmol/L (21-25); ABG Hematocrit 37 % (34.0-46.0); ABG Ionized Calcium 4.7 mg/dL (4.5-5.3); ABG Lactic Acid Whole Blood 1.6 mmol/L (0.5-1.6); ABG PCO2 39 mmHg (35-45); ABG PH 7.44 (7.35-7.45); ABG PO2 379 mmHg (83-108); ABG Potassium Whole Blood 3.5 mmol/L (3.4-4.5); ABG Sodium Whole Blood 140 mmol/L (135-146); ABG TCO2 28 mmol/L (19-24)
[2019-08-23] MEDS ORDERED: SODIUM CHLORIDE 0.9% 500 ML 500 ML with HEPARIN SODIUM,PORCINE 5,000 UNIT IV ONE ×2 (09:36)
[2019-08-23] MEDS ORDERED: ceFAZolin 1,000 MG in SODIUM CHLORIDE 0.9% 1,000 ML IRRIGATION ONE (09:37)
[2019-08-23] MEDS ORDERED: PAPAVERINE 360 MG in SODIUM CHLORIDE 0.9% 90 ML IV ONE (09:37)
[2019-08-23 10:32] LABS: ABG Base Excess 2.4 mmol/L; ABG Glucose Whole Blood 146 mg/dL (75-99); ABG HCO3 29 mmol/L (21-25); ABG Hematocrit 33 % (34.0-46.0); ABG Ionized Calcium 4.7 mg/dL (4.5-5.3); ABG Oxygen Saturation 97.9 % (94-97); ABG PCO2 51 mmHg (35-45); ABG PH 7.36 (7.35-7.45); ABG PO2 106 mmHg (83-108); ABG Potassium Whole Blood 3.6 mmol/L (3.4-4.5); ABG Sodium Whole Blood 138 mmol/L (135-146); ABG TCO2 30 mmol/L (19-24)
[2019-08-23 11:47] LABS: ABG Glucose Whole Blood 143 mg/dL (75-99); ABG HCO3 26 mmol/L (21-25); ABG Hematocrit 27 % (34.0-46.0); ABG Ionized Calcium 4.1 mg/dL (4.5-5.3); ABG Lactic Acid Whole Blood 0.8 mmol/L (0.5-1.6); ABG Oxygen Saturation 99.9 % (94-97); ABG PCO2 40 mmHg (35-45); ABG PH 7.41 (7.35-7.45); ABG PO2 401 mmHg (83-108); ABG Potassium Whole Blood 3.8 mmol/L (3.4-4.5); ABG Sodium Whole Blood 136 mmol/L (135-146); ABG TCO2 27 mmol/L (19-24)
[2019-08-23 12:39] LABS: ABG Base Excess 1.6 mmol/L; ABG Glucose Whole Blood 248 mg/dL (75-99); ABG HCO3 26 mmol/L (21-25); ABG Oxygen Saturation 99.7 % (94-97); ABG PCO2 38 mmHg (35-45); ABG PH 7.44 (7.35-7.45); ABG PO2 217 mmHg (83-108); ABG Potassium Whole Blood 5.2 mmol/L (3.4-4.5); ABG Sodium Whole Blood 134 mmol/L (135-146); ABG TCO2 27 mmol/L (19-24)
[2019-08-23 13:16] LABS: ABG Base Excess 0.6 mmol/L; ABG Glucose Whole Blood 235 mg/dL (75-99); ABG HCO3 26 mmol/L (21-25); ABG Oxygen Saturation 98.9 % (94-97); ABG PCO2 41 mmHg (35-45); ABG PO2 120 mmHg (83-108); ABG Potassium Whole Blood 4.8 mmol/L (3.4-4.5); ABG Sodium Whole Blood 132 mmol/L (135-146); ABG TCO2 27 mmol/L (19-24)
[2019-08-23 13:16] LABS: ABG Lactic Acid Whole Blood 0.7 mmol/L (0.5-1.6)
[2019-08-23 13:17] LABS: ABG Hematocrit 24 % (34.0-46.0)
[2019-08-23 13:45] LABS: ABG Base Excess -0.2 mmol/L; ABG Glucose Whole Blood 203 mg/dL (75-99); ABG HCO3 25 mmol/L (21-25); ABG Oxygen Saturation 99.9 % (94-97); ABG PCO2 42 mmHg (35-45); ABG PH 7.39 (7.35-7.45); ABG PO2 316 mmHg (83-108); ABG Potassium Whole Blood 4.1 mmol/L (3.4-4.5); ABG Sodium Whole Blood 135 mmol/L (135-146); ABG TCO2 26 mmol/L (19-24)
[2019-08-23 15:36] LABS: ABG Base Excess -0.6 mmol/L; ABG Glucose Whole Blood 107 mg/dL (75-99); ABG HCO3 25 mmol/L (21-25); ABG Hematocrit 26 % (34.0-46.0); ABG Oxygen Saturation 99.7 % (94-97); ABG PCO2 46 mmHg (35-45); ABG PH 7.35 (7.35-7.45); ABG PO2 233 mmHg (83-108); ABG Potassium Whole Blood 3.6 mmol/L (3.4-4.5); ABG Sodium Whole Blood 139 mmol/L (135-146); ABG TCO2 27 mmol/L (19-24)
[2019-08-23] MEDS ORDERED: Magnesium Replacement Protocol 1 EACH MISC MISCELLANE PRN (16:26)
[2019-08-23] MEDS ORDERED: Phosphorus Replacement Protoco 1 EACH MISC MISCELLANE PRN (16:26)
[2019-08-23] MEDS ORDERED: IPRATROPIUM-ALBUTEROL 3 ML NEB INHALATION PRN (16:26)
[2019-08-23] MEDS ORDERED: METOCLOPRAMIDE 5 MG/ML 2 ML VIAL IVP PRN (16:26)
[2019-08-23] MEDS ORDERED: AMIODARONE 300 MG in DEXTROSE 5% IN WATER 250 ML IV PRN ×2 (16:26)
[2019-08-23] MEDS ORDERED: BENZOCAINE/MENTHOL LOZENG 1 EACH LOZENGE MUCOUS MEM PRN (16:26)
[2019-08-23] MEDS ORDERED: Potassium Replacement Protocol 1 EACH MISC MISCELLANE PRN (16:26)
[2019-08-23 16:28] LABS: ABG Ionized Calcium 4.5 mg/dL (4.5-5.3); ABG Lactic Acid Whole Blood 1.5 mmol/L (0.5-1.6)
[2019-08-23 16:29] LABS: ABG Hematocrit 24 % (34.0-46.0)
[2019-08-23 16:29] LABS: ABG Ionized Calcium 4.2 mg/dL (4.5-5.3); ABG Lactic Acid Whole Blood 2.1 mmol/L (0.5-1.6)
[2019-08-23 16:30] LABS: ABG Ionized Calcium 4.3 mg/dL (4.5-5.3); ABG Lactic Acid Whole Blood 1.6 mmol/L (0.5-1.6)
[2019-08-23 16:30] LABS: ABG Hematocrit 23 % (34.0-46.0)
[2019-08-23] MEDS: PROPOFOL 1,000 MG in EMPTY BAG 1 BAG IV SCH ×2 (16:30→22:37)
[2019-08-23 17:02] LABS: Glucose,Whole Blood 109 mg/dL (75-99)
[2019-08-23 17:04] LABS: Basophils % (A) 0 %; Eosinophils # (A) 0.1 k/uL (0-0.7); Eosinophils % (A) 0 %; Lymphocytes # (A) 1.2 k/uL (1.0-4.8); Lymphocytes % (A) 6 %; MCHC 32.5 g/dL (31.0-37.0); MCV 92.5 fL (80.0-100.0); Mean Platelet Volume 8.3; Monocytes # (A) 1.6 k/uL (0-1.0); Monocytes % (A) 8 %; Neutrophils # (A) 17.1 k/uL (1.3-7.7); Neutrophils % (A) 85 %; RBC 2.71 m/uL (4.30-5.90); RDW 15.3 % (11.5-15.5); WBC 20.1 k/uL (3.8-10.6)
[2019-08-23 17:14] LABS: ABG Base Excess 0.3 mmol/L; ABG HCO3 25 mmol/L (21-25); ABG Oxygen Saturation 94.5 % (94-97); ABG PCO2 43 mmHg (35-45); ABG PH 7.38 (7.35-7.45); ABG PO2 70 mmHg (83-108); ABG TCO2 27 mmol/L (19-24)
[2019-08-23 17:16] LABS: HGB 8.1 gm/dL (13.0-17.5); Platelet Count 161 k/uL (150-450)
[2019-08-23 17:19] LABS: Allen Test Performed? No
[2019-08-23] MEDS: IPRATROPIUM-ALBUTEROL 3 ML NEB INHALATION SCH ×3 (17:23→21:43)
[2019-08-23 17:24] LABS: ALT 10 U/L (4-49); AST 41 U/L (17-59); African American GFR (CKD) >90 (>60 ml/min/1.73 sqM); Albumin 2.4 g/dL (3.5-5.0); Alkaline Phosphatase 35 U/L (38-126); Anion Gap 8 mmol/L; Blood Urea Nitrogen 11 mg/dL (9-20); Calcium 8.2 mg/dL (8.4-10.2); Carbon Dioxide 24 mmol/L (22-30); Chloride 107 mmol/L (98-107); Glucose 101 mg/dL (74-99); Magnesium 2.5 mg/dL (1.6-2.3); Non-African American GFR(CKD) >90 (>60 ml/min/1.73 sqM); Potassium 4.3 mmol/L (3.5-5.1); Sodium 139 mmol/L (137-145); Total Bilirubin 0.4 mg/dL (0.2-1.3)
[2019-08-23 17:25] LABS: INR 1.2 (<1.2); Prothrombin Time 11.8 sec (9.0-12.0)
[2019-08-23 17:26] LABS: Partial Thromboplastin Time 34.4 sec (22.0-30.0)
[2019-08-23] MEDS ORDERED: CALCIUM GLUCONATE 2 GM in SODIUM CHLORIDE 0.9% 100 ML IVPB PRN (17:30)
--- NOTE | 2019-08-23 17:49 | XR ---
EXAMINATION TYPE: XR chest 1V portable DATE OF EXAM: 08/23/2019 Comparison: 08/11/2019 Clinical History: 64-year-old male Post Operative Cardiac Surgery Findings: Median sternotomy wires are present. ET tube is low just entering the right mainstem bronchus. NG tub e courses below the diaphragm. Right IJ [place] catheter tip at the main outflow tract. The sternal drain is present along with left-sided chest tube. No appreciable pneumothorax. Some patchy retrocar diac density likely atelectasis. No sizable effusion. Heart mildly enlarged. Impression: 1. Low ET tube with tip just entering the right mainstem bronchus. Pull back 3 cm and reassess at [facility] low-up. 2. Postoperative changes. Retrocardiac density likely atelectasis. A [place] level critical message alert has been initiated for Cris Denson MD via the [employer] Critical Results System on 08/23/2019 5:46 PM. This message alert has been sent to Sandra Owens via the preferences provided by the clinician for the receipt of Radiology Critical Findings. Grace THYME ID [id number].
[2019-08-23 17:58] LABS: Glucose,Whole Blood 173 mg/dL (75-99)
[2019-08-23] MEDS: INSULIN REGULAR 100 UNIT in SODIUM CHLORIDE 0.9% 100 ML IV SCH (18:07)
[2019-08-23] MEDS: CLEVIDIPINE BUTYRATE 25 MG in EMPTY BAG 1 BAG IV SCH (18:10)
[2019-08-23] MEDS: ALBUMIN HUMAN 5% 250 ML in EMPTY BAG 1 BAG IVPB PRN ×2 (18:11→20:10)
[2019-08-23] MEDS: SODIUM CHLORIDE 0.9% 1,000 ML IV SCH ×2 (18:16→20:27)
[2019-08-23] MEDS: NITROGLYCERIN-D5W PMX 50 MG in DEXTROSE/WATER 1 250ML.BAG IV SCH (18:16)
[2019-08-23] MEDS: ACETAMINOPHEN IV (For NPO) 1,000 MG in EMPTY BAG 1 BAG IVPB SCH (18:17)
[2019-08-23 18:30] LABS: Glucose,Whole Blood 175 mg/dL (75-99)
[2019-08-23 19:01] LABS: Glucose,Whole Blood 175 mg/dL (75-99)
[2019-08-23 20:20] LABS: Glucose,Whole Blood 169 mg/dL (75-99)
[2019-08-23 20:54] LABS: Basophils % (A) 0 %; Eosinophils % (A) 0 %; HCT 27.6 % (39.0-53.0); HGB 9.3 gm/dL (13.0-17.5); Lymphocytes # (A) 0.7 k/uL (1.0-4.8); Lymphocytes % (A) 4 %; MCH 31.3 pg (25.0-35.0); MCHC 33.6 g/dL (31.0-37.0); MCV 93.1 fL (80.0-100.0); Monocytes # (A) 1.1 k/uL (0-1.0); Monocytes % (A) 6 %; Neutrophils # (A) 15.7 k/uL (1.3-7.7); Neutrophils % (A) 89 %; Platelet Count 146 k/uL (150-450); RBC 2.97 m/uL (4.30-5.90); RDW 14.7 % (11.5-15.5); WBC 17.7 k/uL (3.8-10.6)
[2019-08-23 21:03] LABS: Glucose,Whole Blood 156 mg/dL (75-99)
[2019-08-23 22:24] LABS: Glucose,Whole Blood 137 mg/dL (75-99)
[2019-08-23 22:28] LABS: ABG Base Excess -1.5 mmol/L; ABG HCO3 23 mmol/L (21-25); ABG Oxygen Saturation 98.1 % (94-97); ABG PCO2 39 mmHg (35-45); ABG PH 7.39 (7.35-7.45); ABG PO2 101 mmHg (83-108); ABG TCO2 25 mmol/L (19-24); Allen Test Performed? Yes
[2019-08-23] MEDS ORDERED: ALBUMIN HUMAN 5% 500 ML in EMPTY BAG 1 BAG IVPB ONE (22:28)
[2019-08-23 22:35] LABS: ABG Base Excess -1.6 mmol/L; ABG HCO3 24 mmol/L (21-25); ABG PCO2 42 mmHg (35-45); ABG PH 7.36 (7.35-7.45); ABG PO2 204 mmHg (83-108); ABG TCO2 25 mmol/L (19-24); Allen Test Performed? Yes
[2019-08-23] MEDS: MILRINONE-D5W PMX 20 MG in DEXTROSE/WATER 1 100ML.BAG IV SCH (22:58)
[2019-08-23 23:25] LABS: Glucose,Whole Blood 128 mg/dL (75-99)
[2019-08-24 00:07] LABS: Glucose,Whole Blood 128 mg/dL (75-99)
[2019-08-24] MEDS: HEPARIN SODIUM,PORCINE 5,000 UNIT/ML 1 ML VIAL SQ SCH ×4 (00:13→23:58)
[2019-08-24] MEDS: ACETAMINOPHEN IV (For NPO) 1,000 MG in EMPTY BAG 1 BAG IVPB SCH (00:13)
[2019-08-24] MEDS ORDERED: DEXMEDETOMIDINE/0.9% NACL(PMX) 400 MCG in EMPTY BAG 1 BAG IV SCH (00:45)
[2019-08-24 01:15] LABS: Glucose,Whole Blood 128 mg/dL (75-99)
--- NOTE | 2019-08-24 01:19 | CONS ---
CONSULTATION REASON FOR CONSULTATION: Advice regarding diabetes and other medical issues requested by Cardiothoracic Surgery. HISTORY OF PRESENT ILLNESS: This 64-year-old gentleman with a past medical history of multiple medical problems including CAD, history of diabetes, hypertension, hyperlipidemia, history of CAD stent being followed by Dr. Ji in the outpatient setting recently was admitted to [facility] and found to have three-vessel coronary artery disease. The patient underwent CABG today and the patient is being mechanically intubated. Patient is also on hypothermic blanket at this time. Blood sugars are being monitored. The patient is on 2.5 units/hour. Sugars are between 173 and 169. Currently, the patient mechanically intubated and unable to give a coherent history. Most of the history is taken from the staff and the patient is closely monitored in ICU. There is no history any fever, rigors, chills at this time. PAST MEDICAL HISTORY: History of recent three-vessel coronary artery disease, history of diabetes mellitus, hypertension, hyperlipidemia, history of chronic back pain, DJD, history of CAD, stent. MEDICATIONS: Home medications are: 1. Insulin 25 units subcu at bedtime. 2. Ecotrin 81 mg daily. 3. Percocet 1 tablet p.o. b.i.d. 4. Glucophage 500 mg p.o. b.i.d. 5. OxyContin 80 mg p.o. b.i.d. 6. Glipizide 5 mg p.o. b.i.d. 7. Catapres 0.1 p.o. b.i.d. 8. Norvasc 10 mg p.o. daily. 9. Nitrostat 0.4 sublingual p.r.n. 10.Corgard 20 mg p.o. b.i.d. 11.Zestril 10 mg p.o. daily. 12.Imdur 60 mg p.o. daily. 13.Cymbalta 60 mg p.o. daily. 14.Lipitor 40 mg p.o. daily. ALLERGIES: None. FAMILY HISTORY: History of coronary artery disease. SOCIAL HISTORY: Previous history of smoking. Occasional THC. REVIEW OF SYSTEMS: Could not be taken, the patient mechanically intubated and sedated. PHYSICAL EXAMINATION: The pulse is 80, blood pressure is 100/54, respiration 14. Temperature normal, pulse ox 98% on 40% FiO2. HEENT: Conjunctivae normal. Oral mucosa moist. NECK: No JVD. CARDIOVASCULAR: S1, S2 muffled. RESPIRATORY: A few rhonchi. ABDOMEN: Soft. NERVOUS SYSTEM: Patient is mechanically ventilated and sedated. SKIN: No ulcer, rash or bleeding. JOINTS: No active deforming arthropathy. LABS: Labs at this time show WBC 17.7, hemoglobin 9.3. Glucose noted. ASSESSMENT: 1. Coronary artery disease, 3 vessel disease, status post coronary artery bypass grafting. 2. Diabetes mellitus type 2, on insulin drip. 3. Increased WBC. 4. History of hypertension. 5. History of hyperlipidemia. 6. Chronic back pain, degenerative joint disease. 7. Chronic pain syndrome. 8. History of coronary artery disease, stent. 9. Remote history of nicotine dependence. 10.History of THC. 11.FULL CODE. RECOMMENDATIONS AND DISCUSSION: This 64-year-old gentleman presented with at this time I recommend to continue the current medications and continue symptomatic treatment. Otherwise incentive spirometry. The patient is on multiple drips including amiodarone, Cleviprex. Continue insulin drip at current rate. Monitor blood sugars closely. Once the patient is p.o. and taking adequate diet, the home dose insulin will be restarted. Otherwise, we will follow the patient closely with you. Resume the rest of medications when the patient is available. Follow up for the patient closely with Dr. Pope regarding the mechanical ventilation. Thank you Dr. Denson for letting us participate in this patient. The patient may be asked to follow with Dr. Dexter Ji after discharge. MMODL / CAROLINEN: [id number] / JESSICA
[2019-08-24 01:50] LABS: Glucose,Whole Blood 130 mg/dL (75-99)
[2019-08-24 02:53] LABS: ABG Base Excess 1.6 mmol/L; ABG HCO3 25 mmol/L (21-25); ABG Oxygen Saturation 95.8 % (94-97); ABG PCO2 36 mmHg (35-45); ABG PH 7.46 (7.35-7.45); ABG PO2 70 mmHg (83-108); ABG TCO2 27 mmol/L (19-24); Allen Test Performed? Yes
[2019-08-24 02:58] LABS: Glucose,Whole Blood 133 mg/dL (75-99)
[2019-08-24] MEDS: ALBUMIN HUMAN 5% 250 ML in EMPTY BAG 1 BAG IVPB PRN (03:12)
[2019-08-24] MEDS ORDERED: HYDROcodone/APAP 5-325MG 1 EACH TAB PO PRN (03:13)
[2019-08-24 04:16] LABS: Glucose,Whole Blood 124 mg/dL (75-99)
[2019-08-24] MEDS ORDERED: PAPAVERINE 360 MG in SODIUM CHLORIDE 0.9% 90 ML IV ONE (05:00)
--- NOTE | 2019-08-24 05:25 | OP ---
OPERATIVE REPORT DATE OF SURGERY: 08/23/2019. SURGEON: Dr. Cris Denson. MATERIALS INTERN: Danis Healy, nurse practitioner and [employer]. ANESTHESIA: General by Dr. Aguilar. PREOPERATIVE DIAGNOSES: Severe triple-vessel coronary artery disease, status post prior and remote stenting to his right coronary artery with subsequent intervention years later to deal with in- stent restenosis. The patient current cardiac catheterization showed severe proximal LAD, significant proximal OM2, and an occluded collateralized right coronary artery. Ejection fraction was estimated at around 40% with evidence of probably old inferior myocardial infarction. No significant mitral valve regurgitation. The patient had poor blood pressure and poor diabetes control and we elected to wait around 10 days with reasonable control before we proceed with surgery. The STS risk was discussed with him. He agreed to proceed. The veins are small and in view of his age anyway we will be using the radial artery and attempt vein from the thigh for a potential bypass to his occluded posterior descending artery. PREOPERATIVE DIAGNOSES: Triple-vessel coronary artery disease, poorly controlled diabetes mellitus, hypertension, hyperlipidemia, and ejection fraction of 40%, old RCA stent with old inferior myocardial infarction, ex-smoker, current marijuana user. POSTOPERATIVE DIAGNOSES: Triple-vessel coronary artery disease, poorly controlled diabetes mellitus, hypertension, hyperlipidemia, and ejection fraction of 40%, old RCA stent with old inferior myocardial infarction, ex-smoker, current marijuana user. PROCEDURE: 1. Triple coronary artery bypass grafting using the left internal mammary artery to the left anterior descending artery, the left radial artery from the aorta to the second obtuse marginal artery, reverse saphenous vein graft from the aorta to the posterior descending artery. 2. Endoscopic harvesting of the left radial artery. 3. Endoscopic harvesting of the left greater saphenous vein from groin to below- knee level. 4. Transesophageal echocardiogram and epiaortic scanning. 5. Intraoperative graft flow measurements using the [employer] system. DESCRIPTION OF THE PROCEDURE: Patient had a right internal jugular [place] inserted in the preoperative holding area with a PA pressure of 50/20 and a cardiac index of 2.4. A right radial arterial line was inserted. Subsequently he was brought to the operating room where general endotracheal anesthesia was induced uneventfully. Elliott was inserted. The chest, abdomen and both lower extremities were prepped and draped using ChloraPrep. Ioban was used to cover the skin. Patient received 2 grams of cefazolin intravenously. Transesophageal echocardiogram confirmed the preoperative finding of an ejection fraction of around 40% with severe inferior hypokinesia and no significant valvular abnormalities. Midline sternotomy was performed and no bone wax was used. The bone was moderately osteoporotic but was well perfused. The left hemisternum was elevated and left internal mammary artery was harvested in a semi-skeletonized fashion. The left pleura was intentionally opened in this process and was drained with 19[place] David drain. I made a small opening in the right pleura at the end of the case to decompress potential pneumothorax and the right pleura was not drain. In the same setting, the left radial artery was harvested endoscopically. It was initially exposed at the wrist where a clamping trial revealed preserved pulsatile O2 signal in the left index O2 saturation probe. The branches were clipped. The fascia all along the volar aspect of the radial artery was opened. The radial artery was around 2 mm in diameter with no disease in it. The forearm incisions were closed over a #10 drain. Also in the same setting, the left greater saphenous vein was harvested endoscopically from groin to just below knee level. The branches were tied. The vein appeared to be of reasonable quality; however, on the small side around 3 mm in diameter in its mid thigh aspect where it could be used. The right greater saphenous vein was smaller on ultrasound. Mediastinal fat was transected between 2 ties and epiaortic scanning revealed some concentric intimal thickening but no protruding atheroma in the ascending aorta. Pericardium was opened in an inverted T-fashion and a pericardial cradle was created. Findings included a normal soft aorta and a normal-sized heart, which was fatty obscuring the coronary arteries. After systemic heparinization after placement of respective pledgeted pursestring, aortic cannulation with a 21[place] soft flow cannula in the proximal arch and venous cannulation via the right atrial appendage was performed. Antegrade as well as retrograde cardioplegia catheters were placed. The mammary artery was clipped distally and transected and had pulsatile flow in it and was around 2 mm in diameter. Cardioplegia bypass was initiated and patient temperature was allowed to drift down to 34 degrees Celsius. With the heart empty and beating we looked at the target. Using the epiaortic scanning, we were able to identify the deeply intramyocardial LAD in its mid aspect where it appeared to be soft once uncovered beyond a plaque, it was around 2 mm in diameter. Looking in the lateral wall, we could not see up front any of the obtuse marginal artery. However, with tedious dissection off the groove, we were able to find the takeoff of the second obtuse marginal artery as they were all intramyocardial including the first obtuse marginal artery. The segment we uncovered was thin-walled as expected as it was deep intramyocardial and was around 2 mm in diameter. The posterior descending artery was identified in its distal aspect beyond the stent, was around 1.5 mm in diameter, thickened. The aorta was clamped and during aortic clamping, myocardial protection was achieved with initial dose of antegrade cold blood cardioplegia followed by dose of retrograde cold blood cardioplegia. All subsequent doses were given retrograde at 15 minutes interval. The first distal anastomosis was between a segment of reverse saphenous vein graft and the distal aspect of the posterior descending artery (beyond the stent) which was around 1.5 mm in diameter using Prolene 7-0 in continuous fashion. The second distal anastomosis was between the left radial artery and the very proximal aspect of the second obtuse marginal artery using Prolene 7-0 in continuous fashion. Again, this artery is essentially all intramyocardial beyond the anastomosis , impossible to identify distally in the future. The third and last distal anastomosis was between the left internal mammary artery and deep intramyocardial left anterior descending artery in its mid aspect using Prolene 7-0 in continuous fashion. Satisfied with the distal anastomosis, rewarming was initiated and two buttons were punched out of the ascending aorta and 2 proximal anastomosis of the vein graft and the radial artery were fashioned separately to the aorta. Patient was given lidocaine and magnesium. Around 1 L of warm blood was given as reconstructing the proximal anastomosis along with rewarming. The patient was placed in Trendelenburg position and de-airing maneuvers were followed before unclamping the aorta. However, despite our deairing maneuver, there was a lot of air in the heart. I inserted an 18-gauge needle at the LV apex to assist in deairing. Once we removed the needle, the hole was not bleeding and this was checked before closure, so it did not require a separate suture. Two monopolar atrial pacing were affixed to the respective pursestrings of the right atrium. The patient eventually regained reasonable contraction and rhythm and were able to wean off cardioplegia bypass initially with no support. However, in view of borderline cardiac index, I elected to start Primacor with an index that improved to around 2.5. Graft flow measurement was performed in the case before giving protamine and after giving protamine revealed excellent parameters in all 3 grafts. The flow into the vein graft to the posterior descending artery was 45 mL/minute, pulsatility index of 1.2, and diastolic filling of 69%. The flow into the radial artery going to the second obtuse marginal artery was 14 mL/minute, pulsatility index of 1.9, diastolic filling of 74% with no evidence of competitive flow. The flow in the left internal mammary artery to the left anterior descending artery was 29 mL/minute, pulsatility index of 2.5, diastolic filling of 75%. With that, all pump suckers were stopped before a test dose than full dose protamine was given. Two 19[place] David drain were placed substernally. A groove was made in the left pleuropericardial fat to accommodate the mammary artery medial to the lung and away from the posterior sternal table. The mediastinal fat was approximated over the heart and the proximal anastomosis, but there was a paucity of fat over the heart to approximate over the RV. After ensuring adequate hemostasis (although the myocardial grooves over LAD and OM2 had venous bleed that we tried to control with sutures and Bovie) and hemodynamic, we also had hemostasis by identifying bleeding from the atrial pacing wires, which required a couple of figure-of- eight Vicryl 2-0 from the inside and one from the outside. Once satisfied with the hemostasis, the sternum was closed using 5 [id number] [place] cable after interposing fibrillar between the sternal edges. Thorough irrigation with cefazolin followed. The rest of the closure proceeded in layers. Skin glue was applied. The patient did not receive any blood bank product but received 800 mL of Cell Saver blood. Patient was transferred to the ICU in stable condition on low-dose Primacor with a cardiac index of 2.5, mean arterial pressure of 86, PA pressure of 28/15, atrially paced at 84, sinus bradycardia at around 60. MMODL / IJN: [id number] / [facility]
[2019-08-24 05:29] LABS: Basophils % (A) 0 %; Eosinophils % (A) 0 %; Lymphocytes % (A) 7 %; MCH 31.7 pg (25.0-35.0); MCHC 34.2 g/dL (31.0-37.0); MCV 92.6 fL (80.0-100.0); Mean Platelet Volume 7.4; Monocytes # (A) 0.9 k/uL (0-1.0); Monocytes % (A) 6 %; Neutrophils # (A) 11.6 k/uL (1.3-7.7); Neutrophils % (A) 86 %; Platelet Count 141 k/uL (150-450); RBC 2.15 m/uL (4.30-5.90); RDW 14.7 % (11.5-15.5); WBC 13.6 k/uL (3.8-10.6)
[2019-08-24 05:42] LABS: HGB 6.8 gm/dL (13.0-17.5)
[2019-08-24 05:43] LABS: HCT 19.9 % (39.0-53.0)
[2019-08-24 05:45] LABS: Ionized Calcium 5.8 mg/dL (4.5-5.3)
[2019-08-24 05:54] LABS: ALT 9 U/L (4-49); AST 37 U/L (17-59); African American GFR (CKD) >90 (>60 ml/min/1.73 sqM); Albumin 3.7 g/dL (3.5-5.0); Alkaline Phosphatase 37 U/L (38-126); Anion Gap 5 mmol/L; Blood Urea Nitrogen 11 mg/dL (9-20); Calcium 8.6 mg/dL (8.4-10.2); Carbon Dioxide 27 mmol/L (22-30); Chloride 105 mmol/L (98-107); Glucose 102 mg/dL (74-99); Non-African American GFR(CKD) >90 (>60 ml/min/1.73 sqM); Potassium 3.1 mmol/L (3.5-5.1); Sodium 137 mmol/L (137-145); Total Bilirubin 0.4 mg/dL (0.2-1.3); Total Protein 5.3 g/dL (6.3-8.2)
[2019-08-24] MEDS: CLEVIDIPINE BUTYRATE 25 MG in EMPTY BAG 1 BAG IV SCH ×4 (06:20→12:49)
--- NOTE | 2019-08-24 06:34 | P.PCN ---
Date of Procedure: 08/24/19 Preoperative Diagnosis: Malfunctioning PA catheter Postoperative Diagnosis: Proper functioning PA catheter Procedure(s) Performed: Exchange of PA catheter Anesthesia: none Surgeon: Claudia Singleton Pathology: none sent Condition: stable Disposition: ICU Description of Procedure: The ICU team called anesthesia to change a malfunctioning PA catheter in the ICU. The patient is postop day #1 status post CABG. The patient was placed in the supine position the previous PA catheter was withdrawn after making sure that the balloon was down. Then the skin and the hub of the introducer catheter were sterilized with ChloraPrep and draped in a sterile fashion. This procedure was done under strict sterile conditions with a sterile drape, sterile gloves, a gown, a mask and a hat. The new PA catheter was flushed and tested. The catheter was then introduced to 20 cm then the balloon was inflated and advanced through the right ventricle to the right PA easily. Prone on was deflated then. The cardiac output was then obtained with no issues.
[2019-08-24] MEDS ORDERED: KETOROLAC 30 MG/ML 1 ML VIAL IVP STA (06:47)
[2019-08-24 06:51] LABS: Glucose,Whole Blood 91 mg/dL (75-99)
[2019-08-24] MEDS: POTASSIUM CHLORIDE 20 MEQ in WATER FOR INJECTION 1 100ML.BAG IVPB SCH ×6 (07:02→23:58)
--- NOTE | 2019-08-24 07:18 | P.CRDCN ---
History of Present Illness Consult date: 08/24/19 Chief complaint: status post CABG History of present illness: This is a very pleasant 65-year-old gentleman who was admitted to the hospital recently with chest discomfort and he was diagnosed with unstable angina. He underwent a heart catheterization by Dr. Hua and was found to have severe triple-vessel coronary artery disease. The echo at that point revealed impaired LV function was EF around 40%. A consult from cardiothoracic surgeon was placed and the patient was advised to undergo coronary artery bypass grafting. Yesterday patient underwent elective coronary artery bypass grafting 3 was QUINONES to LAD, SVG to PDA, and radial artery bypass to OM. This is postoperative elevation day #1. The patient was extubated last night. He is dealing with some pain at this point. Hemodynamically he is stable and he is not on any vasopressors at this point. He is on dual antiplatelet therapy along with high intensity statin along with metoprolol. His hemoglobin this morning is low and he is in process of receiving one unit of packed RBC. Distal have the chest to 2 and pericardial tube drainage into place at this point. He is maintaining normal sinus mechanism so far since the surgery. We are going to continue the current medical regimen, continue the kidney function monitoring as well as the CBC. Beside that the chest x-ray was reviewed this morning and looks overall good beside cardiomegaly. Past Medical History Past Medical History: Coronary Artery Disease (CAD), Chest Pain / Angina, Diabetes Mellitus, Hyperlipidemia, Hypertension Additional Past Medical History / Comment(s): Chronic lower back pain and bilateral leg pain, recent adm for back & chest pain Last Myocardial Infarction Date:: 03/20/2015 History of Any Multi-Drug Resistant Organisms: None Reported Past Surgical History: Back Surgery, Heart Catheterization With Stent, Orthopedic Surgery Additional Past Surgical History / Comment(s): knee, ankle surgery-pt believes it was his R ankle. pt states he has a total of 5 heart stents Past Anesthesia/Blood Transfusion Reactions: No Reported Reaction Additional Past Anesthesia/Blood Transfusion Reaction / Comment(s): received blood after severe nose bleed, needed to be cauterized after receiving too much aspirin. Date of Last Stent Placement:: 02/2015 Smoking Status: Former smoker - Past Family History Sister(s) Family Medical History: Coronary Artery Disease (CAD), Hypertension Father Family Medical History: Coronary Artery Disease (CAD), Diabetes Mellitus, Deep Vein Thrombosis (DVT), Hypertension Additional Family Medical History / Comment(s): Father at age 58yrs. He of blood clot from leg injury that went to his heart. Medications and Allergies Home Medications Medication Instructions Recorded Confirmed Type amLODIPine [Norvasc] 10 mg PO DAILY #30 tab 04/04/14 08/19/19 Rx glipiZIDE [Glipizide] 5 mg PO BID 03/20/15 08/19/19 History Atorvastatin [Lipitor] 40 mg PO DAILY 10/03/17 08/19/19 History cloNIDine HCL [Catapres] 0.1 mg PO BID 10/03/17 08/19/19 History Aspirin EC [Ecotrin Low Dose] 81 mg PO DAILY 08/11/19 08/23/19 History Insulin Glargine,Hum.rec.anlog 25 unit SQ HS 08/11/19 08/23/19 History [Basaglar Kwikpen U-100] DULoxetine HCL [Cymbalta] 60 mg PO DAILY capsule. 08/15/19 08/19/19 Rx Isosorbide Mononitrate ER [Imdur] 60 mg PO DAILY #30 tab.er.24h 08/15/19 08/19/19 Rx Lisinopril [Zestril] 10 mg PO DAILY #30 tab 08/15/19 08/19/19 Rx Nadolol [Corgard] 20 mg PO BID #60 tab 08/15/19 08/19/19 Rx Nitroglycerin Sl Tabs [Nitrostat] 0.4 mg SUBLINGUAL Q5M PRN #30 tab 08/15/19 08/19/19 Rx oxyCODONE ER [OxyCONTIN] 80 mg PO BID tab.er.12h 08/15/19 08/19/19 Rx metFORMIN HCL [Glucophage] 500 mg PO BID 08/19/19 08/19/19 History oxyCODONE-APAP 5-325MG [Percocet 1 tab PO BID 08/19/19 08/23/19 History 5-325 mg] Allergies Allergy/AdvReac Type Severity Reaction Status Date / Time No Known Allergies Allergy Verified 08/23/19 05:47 Physical Exam Vitals: Vital Signs Temp Pulse Resp BP Pulse Ox 08/24/19 03:00 90 20 125/73 97 08/24/19 02:30 90 20 121/72 97 08/24/19 02:00 90 16 119/76 98 08/24/19 01:30 90 16 128/79 99 08/24/19 01:00 90 15 129/78 99 08/24/19 00:30 90 24 135/81 95 08/24/19 00:00 90 20 126/82 99 08/23/19 23:30 90 15 126/82 100 08/23/19 23:23 89 08/23/19 23:08 89 08/23/19 23:00 90 15 127/82 100 08/23/19 22:30 101 H 30 H 99 08/23/19 22:00 80 26 H 118/81 98 08/23/19 21:30 80 15 101/70 99 08/23/19 21:00 80 15 102/76 99 08/23/19 20:45 80 16 99/67 99 08/23/19 20:30 80 14 91/70 98 08/23/19 20:22 80 08/23/19 20:15 80 14 91/64 99 08/23/19 20:00 80 14 91/65 97 08/23/19 19:57 80 08/23/19 19:45 80 14 95/72 98 08/23/19 19:30 80 14 116/76 98 08/23/19 19:15 80 14 123/79 100 08/23/19 19:00 95.4 F L 80 14 114/78 100 08/23/19 18:45 80 14 128/87 100 08/23/19 18:30 80 14 128/93 100 08/23/19 18:15 80 14 121/84 100 08/23/19 18:00 95.4 F L 80 14 102/72 100 08/23/19 17:45 95.2 F L 80 14 91/68 100 08/23/19 17:38 80 08/23/19 17:30 80 14 90/65 94 L 08/23/19 17:26 80 08/23/19 17:21 95.9 F L 80 26 H 96/54 94 L 08/23/19 17:15 95 F L 80 14 99/70 97 08/23/19 17:00 80 100 08/23/19 16:50 95.9 F L 80 15 08/23/19 16:40 80 10 L 08/23/19 16:32 0 L Intake and Output 08/23/19 08/24/19 08/24/19 22:59 06:59 14:59 Intake Total 8351.033 4989.828 0 Output Total 1195 1156 Balance 494.255 361.828 0 Intake: IV 1271.51 1441.02 0.9 NaCl- 250 300 ACETAMINOPHEN IV (For NPO 100 ) 1,000 mg In Empty Bag 1 bag @ 400 mls/hr IVPB Q6HR GABBY Rx#:[id number] Albumin Human 5% 250 ml 750 750 In Empty Bag 1 bag @ 250 mls/hr IVPB Q1HR PRN Rx#: [id number] CO/CI injectate 90 120 Nitroglycerin-D5w Pmx 50 7.5 9.0 mg In Dextrose/Water 1 250ml.bag @ 5 MCG/MIN 1.5 mls/hr IV .Q24H GABBY Rx#: [id number] Pressure Bags 45 54 Primacor 29.01 58.02 ceFAZolin 2 gm In Sodium 100 50 Chloride 0.9% 50 ml @ 100 mls/hr IVPB ONCE ONE Rx# :[id number] Intake, IV Titration 107.745 76.808 Amount Clevidipine Butyrate 25 7.033 42.967 mg In Empty Bag 1 bag @ 1 MG/HR 2 mls/hr IV .Q24H GABBY Rx#:[id number] Dexmedetomidine/0.9% NaCl 3.01 (Pmx) 400 mcg In Empty Bag 1 bag @ Titrate IV . Q0M GABBY Rx#:[id number] Insulin Regular 100 unit 15.443 In Sodium Chloride 0.9% 100 ml @ Per Protocol IV .Q0M GABBY Rx#:[id number] Propofol 1,000 mg In 85.269 30.831 Empty Bag 1 bag @ Titrate IV .Q0M GABBY Rx#: [id number] Blood Product 310 0 Rc As-3 Unit 0 [id number] Rc As-3 Unit 310 [id number] Output: Chest Tube Drainage 760 466 Left 140 36 Mediastinal 620 430 Urine 435 690 Other: Voiding Method Indwelling Catheter Indwelling Catheter ABP, PAP, CO, CI - Last 8 Hours Arterial Blood Pressure 128/56 Arterial Blood Pressure 137/58 Arterial Blood Pressure 118/57 Arterial Blood Pressure 47/45 Arterial Blood Pressure 129/62 Arterial Blood Pressure 119/84 Arterial Blood Pressure 130/63 Arterial Blood Pressure 130/60 Pulmonary Artery Pressure 28/12 Pulmonary Artery Pressure 23/13 Pulmonary Artery Pressure 26/15 Pulmonary Artery Pressure 26/15 Pulmonary Artery Pressure 26/16 Pulmonary Artery Pressure 31/18 Pulmonary Artery Pressure 27/17 Pulmonary Artery Pressure 29/18 Cardiac Output 4.7 Cardiac Output 4.7 Cardiac Output 6 Cardiac Index 2.4 Cardiac Index 2.4 Cardiac Index 3 - Constitutional General appearance: no acute distress - Respiratory Respiratory: bilateral: CTA - Cardiovascular Rhythm: irregularly irregular Heart sounds: normal: S1, S2 Results 08/24/19 04:10 08/24/19 04:10 Cardiac Enzymes 08/23/19 08/24/19 Range/Units 16:50 04:10 AST 41 37 (17-59) U/L Coagulation 08/23/19 Range/Units 16:50 PT 11.8 (9.0-12.0) sec APTT 34.4 H (22.0-30.0) sec CBC 08/23/19 08/23/19 08/24/19 Range/Units 16:50 20:15 04:10 WBC 20.1 H 17.7 H 13.6 H (3.8-10.6) k/uL RBC 2.71 L 2.97 L 2.15 L (4.30-5.90) m/uL Hgb 8.1 L D 9.3 L 6.8 L* D (13.0-17.5) gm/dL Hct 25.0 L 27.6 L 19.9 L* (39.0-53.0) % Plt Count 161 D 146 L 141 L (150-450) k/uL Comprehensive Metabolic Panel 08/23/19 08/24/19 Range/Units 16:50 04:10 Sodium 139 137 (137-145) mmol/L Potassium 4.3 3.1 L (3.5-5.1) mmol/L Chloride 107 105 (98-107) mmol/L Carbon Dioxide 24 27 (22-30) mmol/L BUN 11 11 (9-20) mg/dL Creatinine 0.60 L 0.55 L (0.66-1.25) mg/dL Glucose 101 H 102 H (74-99) mg/dL Calcium 8.2 L 8.6 (8.4-10.2) mg/dL AST 41 37 (17-59) U/L ALT 10 9 (4-49) U/L Alkaline Phosphatase 35 L 37 L (38-126) U/L Total Protein 4.0 L 5.3 L (6.3-8.2) g/dL Albumin 2.4 L 3.7 (3.5-5.0) g/dL Current Medications Generic Name Dose Route Start Last Admin Trade Name Freq PRN Reason Stop Dose Admin Hydrocodone Bitart/Acetaminophen 2 each 08/24/19 03:13 [place] 5-325 PO Q4HR PRN Severe Pain Hydrocodone Bitart/Acetaminophen 1 each 08/24/19 03:13 [place] 5-325 PO Q4HR PRN Moderate Pain Albuterol/Ipratropium 3 ml 08/23/19 16:26 08/23/19 23:05 Duoneb 0.5 Mg-3 Mg/3 Ml Soln INHALATION 3 ml RT-Q2H PRN Administration Shortness Of Breath Or Wheezing Albuterol/Ipratropium 3 ml 08/23/19 21:15 08/23/19 21:43 Duoneb 0.5 Mg-3 Mg/3 Ml Soln INHALATION Not Given RT-QID [facility] Aspirin 325 mg 08/24/19 09:00 Aspirin PO DAILY [facility] Atorvastatin Calcium 40 mg 08/24/19 09:00 Lipitor PO DAILY [facility] Benzocaine/Menthol 1 each 08/23/19 16:26 Cepacol Lozenge MUCOUS MEM Q2H PRN Sore Throat Bisacodyl 10 mg 08/24/19 09:00 Dulcolax RECTAL DAILY PRN Constipation Clopidogrel Bisulfate 75 mg 08/24/19 09:00 Plavix PO DAILY [facility] Heparin Sodium (Porcine) 5,000 unit 08/24/19 00:00 08/24/19 00:13 Heparin SQ 5,000 unit Q8HR GABBY Administration Hydralazine HCl 10 mg 08/23/19 16:26 Apresoline IVP Q1H PRN Blood Pressure - High Diltiazem HCl 125 mg/ Sodium 125 mls @ 5 mls/hr 08/23/19 08:09 08/23/19 10:10 Chloride IV 08/24/19 08:08 1 mls .Q24H STA Administration 5 MG/HR Insulin Human Regular 100 unit 101 mls @ 0 mls/hr 08/23/19 17:30 08/23/19 22:30 / Sodium Chloride IV 3 units/hr .Q0M GABBY 3.03 mls/hr Titration Protocol Per Protocol Clevidipine 25 mg/ IV Solution 50 mls @ 2 mls/hr 08/23/19 16:26 08/24/19 06:20 IV 10 mg/hr .Q24H GABBY 20 mls/hr Administration Protocol 1 MG/HR Nitroglycerin/Dextrose 50 mg/ 250 mls @ 1.5 mls/hr 08/23/19 16:08/23/19 18:16 IV Solution IV 5 mcg/min .Q24H GABBY 1.5 mls/hr Administration 5 MCG/MIN Amiodarone HCl 150 mg/ 103 mls @ 618 mls/hr 08/23/19 16:26 Dextrose/Water IV .Q10M PRN A.FIB/FLUTTER Protocol Amiodarone HCl 360 mg/ 200 mls @ 33.333 mls/hr 08/23/19 16:26 Dextrose/Water IV .Q6H PRN A.FIB/FLUTTER Protocol 1 MG/MIN Amiodarone HCl 300 mg/ 250 mls @ 25 mls/hr 08/23/19 16:26 Dextrose/Water IV .Q10H PRN A.FIB/FLUTTER Protocol 0.5 MG/MIN Albumin Human 250 ml/ IV 250 mls @ 250 mls/hr 08/23/19 16:26 08/24/19 03:12 Solution IVPB 08/25/19 16:27 250 mls/hr Q1HR PRN Administration For Volume Cefazolin Sodium 2 gm/ Sodium 50 mls @ 100 mls/hr 08/23/19 18:00 08/24/19 02:33 Chloride IVPB 08/24/19 10:29 100 mls/hr Q8H GABBY Administration Sodium Chloride 1,000 mls @ 50 mls/hr 08/23/19 16:26 08/23/19 20:27 Saline 0.9% IV 50 mls/hr .Q20H GABBY Administration Milrinone Lactate/Dextrose 20 100 mls @ 9.675 mls/hr 08/23/19 23:00 08/23/19 22:58 mg/ IV Solution IV 0.375 mcg/kg/min .[id number] GABBY 9.675 mls/hr Administration 0.375 MCG/KG/MIN Dexmedetomidine HCl 400 mcg/ 100 mls @ 0 mls/hr 08/24/19 00:45 08/24/19 04:30 IV Solution IV 08/25/19 00:46 0.06 mcg/kg/hr .Q0M GABBY 1.29 mls/hr Titration Protocol Titrate Potassium Chloride 20 meq/ IV 100 mls @ 50 mls/hr 08/24/19 06:45 08/24/19 07:02 Solution IVPB 08/24/19 10:44 50 mls/hr Q2H GABBY Administration Protocol Magnesium Hydroxide 2,400 mg 08/24/19 09:00 Milk Of Magnesia PO BID PRN Constipation Metoclopramide HCl 10 mg 08/23/19 16:26 Reglan IVP Q4H PRN Nausea And Vomiting Metoprolol Tartrate 25 mg 08/24/19 09:00 Lopressor PO BID [facility] Miscellaneous Information 1 each 08/23/19 16:26 Potassium Per Protocol MISCELLANE DAILY PRN Per Protocol Protocol Miscellaneous Information 1 each 08/23/19 16:26 Magnesium Per Protocol MISCELLANE DAILY PRN Per Protocol Protocol Miscellaneous Information 1 each 08/23/19 16:26 Phosphorus Per Protocol MISCELLANE DAILY PRN Per Protocol Protocol Ondansetron HCl 4 mg 08/23/19 16:26 Zofran IVP Q6HR PRN Nausea And Vomiting Pantoprazole Sodium 40 mg 08/24/19 09:00 Protonix IVP DAILY GABBY Senna/Docusate Sodium 2 each 08/24/19 21:00 Senokot-S PO HS GABBY Sodium Chloride 10 ml 08/23/19 21:00 08/23/19 21:08 Saline Flush IV 10 ml BID GABBY Administration Intake and Output 08/23/19 08/24/19 08/24/19 22:59 06:59 14:59 Intake Total 1073.857 7942.828 0 Output Total 1195 1156 Balance 494.255 361.828 0 Intake: IV 1271.51 1441.02 0.9 NaCl- 250 300 ACETAMINOPHEN IV (For NPO 100 ) 1,000 mg In Empty Bag 1 bag @ 400 mls/hr IVPB Q6HR GABBY Rx#:[id number] Albumin Human 5% 250 ml 750 750 In Empty Bag 1 bag @ 250 mls/hr IVPB Q1HR PRN Rx#: [id number] CO/CI injectate 90 120 Nitroglycerin-D5w Pmx 50 7.5 9.0 mg In Dextrose/Water 1 250ml.bag @ 5 MCG/MIN 1.5 mls/hr IV .Q24H GABBY Rx#: [id number] Pressure Bags 45 54 Primacor 29.01 58.02 ceFAZolin 2 gm In Sodium 100 50 Chloride 0.9% 50 ml @ 100 mls/hr IVPB ONCE ONE Rx# :[id number] Intake, IV Titration 107.745 76.808 Amount Clevidipine Butyrate 25 7.033 42.967 mg In Empty Bag 1 bag @ 1 MG/HR 2 mls/hr IV .Q24H GABBY Rx#:[id number] Dexmedetomidine/0.9% NaCl 3.01 (Pmx) 400 mcg In Empty Bag 1 bag @ Titrate IV . Q0M GABBY Rx#:[id number] Insulin Regular 100 unit 15.443 In Sodium Chloride 0.9% 100 ml @ Per Protocol IV .Q0M GABBY Rx#:[id number] Propofol 1,000 mg In 85.269 30.831 Empty Bag 1 bag @ Titrate IV .Q0M GABBY Rx#: [id number] Blood Product 310 0 Rc As-3 Unit 0 [id number] Rc As-3 Unit 310 [id number] Output: Chest Tube Drainage 760 466 Left 140 36 Mediastinal 620 430 Urine 435 690 Other: Voiding Method Indwelling Catheter Indwelling Catheter 08/24/19 04:10 08/24/19 04:10 Assessment and Plan Assessment: assessment #1 severe triple-vessel coronary artery disease #2 status post coronary artery bypass grafting as described above #3 ischemic cardiomyopathy #4 diabetes #5 hypertension #6 dyslipidemia Plan #1 continue the current medical regimen including dual antiplatelet therapy #2 continue the high intensity statin as well as metoprolol #3 consider adding PRAMOD inhibitor as well as Aldactone down the line #4 continue monitor the hemoglobin as well as the kidney function #5 follow-up with the patient
--- NOTE | 2019-08-24 07:48 | XR ---
EXAMINATION TYPE: XR chest 1V portable DATE OF EXAM: 08/24/2019 COMPARISON: 08/23/2019 HISTORY: Post cardiac surgery TECHNIQUE: Single frontal view of the chest is obtained. FINDINGS: Postsurgical changes are seen. ET and NG tube have been removed. Mediastinal drain and dani st tube remain. Carver-Billy catheter stable. Heart is enlarged. No sizable pneumothorax. Subcutaneous e mphysema stable. Left-sided consolidation and pleural effusion unchanged. IMPRESSION: 1. Postoperative change with left basilar infiltrate and small effusion.
[2019-08-24] MEDS: IPRATROPIUM-ALBUTEROL 3 ML NEB INHALATION SCH ×4 (08:06→19:00)
[2019-08-24] MEDS: HYDROcodone/APAP 5-325MG 1 EACH TAB PO PRN ×4 (08:20→22:12)
[2019-08-24] MEDS: CLOPIDOGREL 75 MG TAB PO SCH (08:24)
[2019-08-24] MEDS: ATORVASTATIN 40 MG TAB PO SCH (08:24)
[2019-08-24] MEDS: ASPIRIN 325 MG TAB PO SCH (08:24)
[2019-08-24 08:47] LABS: Glucose,Whole Blood 170 mg/dL (75-99)
[2019-08-24] MEDS ORDERED: METOPROLOL TARTRATE 12.5 MG TAB PO SCH (09:00)
[2019-08-24] MEDS ORDERED: BISACODYL 10 MG SUPP RECTAL PRN (09:00)
[2019-08-24] MEDS ORDERED: PANTOPRAZOLE 40 MG/10 ML VIAL IVP SCH (09:00)
[2019-08-24] MEDS ORDERED: FUROSEMIDE 10 MG/ML 2 ML VIAL IV ONE (09:00)
[2019-08-24] MEDS ORDERED: MAGNESIUM HYDROXIDE 2,400 MG/10 ML CUP PO PRN (09:00)
[2019-08-24] MEDS ORDERED: METOPROLOL TARTRATE 25 MG TAB PO SCH (09:00)
[2019-08-24] MEDS: amLODIPine 5 MG TAB PO SCH (09:23)
[2019-08-24] MEDS: LOSARTAN 25 MG TAB PO SCH (09:23)
[2019-08-24] MEDS: DULoxetine HCL 60 MG CAPSULE.DR PO SCH (09:32)
[2019-08-24] MEDS: MILRINONE-D5W PMX 20 MG in DEXTROSE/WATER 1 100ML.BAG IV SCH ×2 (09:35→20:11)
[2019-08-24 09:38] LABS: Glucose,Whole Blood 225 mg/dL (75-99)
[2019-08-24 09:55] LABS: Glucose,Whole Blood 209 mg/dL (75-99)
[2019-08-24] MEDS: INSULIN REGULAR 100 UNIT in SODIUM CHLORIDE 0.9% 100 ML IV SCH (09:56)
[2019-08-24] MEDS ORDERED: METOPROLOL TARTRATE 25 MG TAB PO STA (10:05)
[2019-08-24 10:55] LABS: Glucose,Whole Blood 144 mg/dL (75-99)
--- NOTE | 2019-08-24 11:53 | CONS ---
CONSULTATION PULMONARY/CRITICAL CARE CONSULTATION: DATE OF SERVICE: 08/24/2019 This is a 64-year-old male who is postop day #1 status post 3-vessel bypass grafting. The surgery was done by Dr. Denson. His primary care provider is Dr. Ji. He apparently has a history of multiple medical problems including CAD, diabetes mellitus, hypertension, hyperlipidemia, and previous stent placement. The patient underwent the surgery yesterday. He was extubated this morning. It took about 10-1/2 hours to get him extubated because of hemodynamic instability. The patient currently is doing reasonably well. He is on O2 of 4 L by nasal cannula. He is getting nitroglycerin at 5 mcg/minute, Primacor 0.2 mcg/kg per minute, insulin drip is currently off. Cleviprex at 10 mg an hour, Precedex 0.06 mcg/kg per hour, 0.9 at 50 mL an hour and he has received 2 units of PRBCs. His chest x-ray actually looks quite good. PAST MEDICAL HISTORY: Positive for positive for CAD, diabetes mellitus, hypertension, hyperlipidemia, chronic back pain, DJD, and CAD with stent placement. HOME MEDICATIONS: Prior to surgery included insulin, Ecotrin, Glucophage, OxyContin, glipizide, Catapres, Norvasc, Nitrostat, Corgard, Zestril, Imdur, Cymbalta, and Lipitor. ALLERGIES: Denied. FAMILY HISTORY: Positive for coronary artery disease in his father. SOCIAL HISTORY: Positive for previous marijuana use and tobacco use. SURGICAL HISTORY: Includes previous catheterization with stent placement. REVIEW OF SYSTEMS: CONSTITUTIONAL: Negative. NEUROLOGIC: Negative. HEENT: Negative. CARDIOVASCULAR: Negative. PULMONARY: Negative. GI: Negative. : Negative. RHEUMATOLOGIC: Negative. IMMUNOLOGIC: Negative. ENDOCRINOLOGIC: Negative. Current vital signs are reviewed. His temperature is 99.5, heart rate 105, respiratory rate 18, blood pressure 129/72 mean 91 saturations 94% on 4 L. CVP is 5 pulmonary pressure is 25/6. Appears in no acute distress. Appears in no acute distress. HEENT: Examination is grossly unremarkable. Nasal O2 in place. NECK: Supple, full range of motion. A Cordis catheter with PA catheter noted. No adenopathy. CARDIOVASCULAR: Examination reveals regular rhythm and rate. He is mildly tachycardic at 105. No murmur. LUNGS: A few scattered rhonchi. No wheezes. ABDOMEN: Soft. No bowel sounds. EXTREMITIES: Intact. No edema. Legs are wrapped. SKIN: Without rash. NEUROLOGIC: Examination is nonfocal. LABS: Reviewed. White count 13.6 hemo, hemoglobin 6.8, hematocrit 19.9, platelet count 141,000 sodium 137, potassium 3.1, chloride 105, CO2 is 27, anion gap is 5. BUN and creatinine were 11 and 0.55. Microbiology is negative. Chest x-ray shows some postoperative changes. There may be some minimal basilar atelectasis. Medications are reviewed and are appropriate. ASSESSMENT: 1. Postoperative day #1, status post 3-vessel bypass grafting for coronary artery disease. 2. Routine postoperative ventilator management with extubation 10.5 hours after leaving the operating room. 3. History of coronary artery disease with previous stent placement. 4. History of diabetes mellitus. 5. History of hypertension. 6. History of hyperlipidemia. 7. History of degenerative joint disease. 8. History of chronic back pain. 9. Prior history of tobacco use and marijuana use. PLAN: The patient seems to be doing relatively well. We will continue to follow closely. We recommend deep breathing coughing, clearing of secretions. We also recommend hourly use of the incentive spirometer. No additional recommendations are made. The patient remains on a number of drips for hemodynamic situation. We will continue to follow. Prognosis is guarded. MMODL / IJN: [id number] / MTDD
[2019-08-24 11:57] LABS: Glucose,Whole Blood 92 mg/dL (75-99)
--- NOTE | 2019-08-24 12:11 | P.PN ---
Subjective Progress Note Date: 08/24/19 Principal diagnosis: Symptomatic multivessel coronary artery disease. Past medical history significant for coronary artery disease with history of stent placement to his right coronary artery in 2015, hypertension, hyperlipidemia, daily marijuana use, remote history of nicotine dependence quit smoking 25 years ago, chronic lower back pain, insulin-dependent diabetes mellitus type 2 and family history of early onset coronary artery disease with his dad being diagnosed in his early 50s. POD #1 triple coronary artery bypass grafting using the left internal mammary artery to left anterior descending coronary artery, the left radial artery from the aorta to the second obtuse marginal coronary artery, a reverse greater saphenous vein graft from the aorta to the posterior descending coronary artery. Endoscopic harvesting of the left radial artery, endoscopic harvesting of the left greater saphenous vein from the groin to just below the knee level, intraoperative transesophageal echocardiogram, epi-aortic scanning and graft flow measurements using the [employer] system. Postoperative acute blood loss anemia, an expected outcome secondary to cardiopulmonary bypass and hemodilution. The patient is seen in follow-up today 08/24/2019 at his bedside in the intensive care unit. He is awake, alert and oriented 3 and is in no acute distress. He is hemodynamically stable, although has been hypertensive and is currently on Primacor drip at 0.375 mcg/kg/m and is on Cleviprex drip at 10 mg per hour. The patient denies any complaints of shortness of breath at this time although is complaining of surgical type pain and pain to his bilateral lower extremities. Right IJ Ubly-Billy catheter remains in place with current cardiac output 8.8, cardiac index 4.4, PA pressures 32/17 and CVP 14 mmHg. He was successfully extubated at 3:36 AM this morning and is currently on 4 L nasal cannula with oxygen saturations 94%. He is achieving 750 mL on his incentive spirometry with encouragement. Laboratory results this morning show a hemoglobin of 6.8 and is receiving 1 unit of packed red blood cells at this time. Mediastinal and left pleural chest tubes remain in place to low continuous wall suction -20 cm H2O. No air leak is present. Mediastinal chest tubes draining serosanguineous drainage with 1.4 L of output since surgery and 560 mL output in the last 8 hours. Left pleural chest tube draining thin serosanguineous drainage with 40 mL output in the last 8 hours, and 180 mL output since surgery. Bedside telemetry showing sinus tachycardia heart rate 110, atrial epicardial pacemaker wires remain in place and connected to back up to bedside pacemaker generator. Objective - Vital Signs Vital signs: Vital Signs Temp 98.7 F 08/24/19 07:15 Pulse 120 H 08/24/19 08:30 Resp 20 08/24/19 07:15 BP 144/48 08/24/19 07:15 Pulse Ox 93 L 08/24/19 07:15 Intake & Output 08/23/19 08/24/19 08/24/19 18:59 06:59 18:59 Intake Total 727.8 2656.623 256.932 Output Total 3730 2501 270 Balance -3002.2 155.623 -13.068 Intake: IV 417.5 2472.37 100.17 0.9 NaCl- 50 600 50 ACETAMINOPHEN IV (For NPO 100 ) 1,000 mg In Empty Bag 1 bag @ 400 mls/hr IVPB Q6HR [facility] Rx#:[id number] Albumin Human 5% 250 ml 250 1250 In Empty Bag 1 bag @ 250 mls/hr IVPB Q1HR PRN Rx#: [id number] CO/CI injectate 240 30 Nitroglycerin-D5w Pmx 50 1.5 18.0 1.5 mg In Dextrose/Water 1 250ml.bag @ 5 MCG/MIN 1.5 mls/hr IV .Q24H [facility] Rx#: [id number] Pressure Bags 9 108 9 Primacor 106.37 9.67 ceFAZolin 2 gm In Sodium 100 50 Chloride 0.9% 50 ml @ 100 mls/hr IVPB ONCE ONE Rx# :[id number] Intake, IV Titration 0.3 184.253 156.762 Amount Clevidipine Butyrate 25 0.3 49.700 42.933 mg In Empty Bag 1 bag @ 1 MG/HR 2 mls/hr IV .Q24H [facility] Rx#:[id number] Dexmedetomidine/0.9% NaCl 3.01 (Pmx) 400 mcg In Empty Bag 1 bag @ Titrate IV . Q0M [facility] Rx#:[id number] Insulin Regular 100 unit 15.443 31.108 In Sodium Chloride 0.9% 100 ml @ Per Protocol IV .Q0M [facility] Rx#:[id number] Milrinone-D5w Pmx 20 mg 82.721 In Dextrose/Water 1 100ml .bag @ 0.375 MCG/KG/MIN 9 .675 mls/hr IV .[id number] [facility] Rx#:[id number] Propofol 1,000 mg In 116.100 Empty Bag 1 bag @ Titrate IV .Q0M [facility] Rx#: [id number] Blood Product 310 0 Rc As-3 Unit 0 [id number] Rc As-3 Unit 310 [id number] Output: Chest Tube Drainage 470 886 20 Left 110 66 10 Mediastinal 360 820 10 Urine 1260 1615 250 Estimated Blood Loss 1999 Other: Voiding Method Indwelling Catheter ABP, PAP, CO, CI - Last Documented Arterial Blood Pressure 141/53 Pulmonary Artery Pressure 32/12 Cardiac Output 6.1 Cardiac Index 3.1 - Exam This is a 64-year-old pleasant gentleman who is somewhat restless laying in bed in the intensive care unit. He is in no acute distress, he is awake, alert and oriented 3 and is hemodynamically stable with Primacor drip infusing at 0.375 mcg/kg/m. Oxygen saturation are 94% on 4 L nasal cannula. - Constitutional Constitutional Comment(s): Surgical type pain to his chest tube insertion sites and to his bilateral lower extremities. General appearance: Present: cooperative, no acute distress, obese - EENT Eyes: Present: PERRLA, poor dentition, normal appearance. Absent: scleral icterus ENT: Present: hearing grossly normal - Neck Details: Right IJ Cordis in place with Ubly-Blily catheter and functioning. No JVD, no lymphadenopathy. Neck is supple. - Respiratory Details: Lung sounds are essentially clear throughout, diminished to his bilateral bases. No wheezes, rhonchi or crackles. Respirations are symmetrical and nonlabored. Oxygen saturation is 94% on 4 L nasal cannula. Achieving 750 mL on his incentive spirometry. Mediastinal and left pleural chest tubes remain in place to low continuous wall suction -20 cm H2O. No air leak is present. Mediastinal and left pleural chest tube draining serosanguineous drainage. - Cardiovascular Details: Regular rhythm with tachycardic rate. S1 and S2 present, negative for S3, gallop or murmur. Sternum is stable. Bedside telemetry showing sinus tachycardia heart rate 110. Heart hugger is in place and is demonstrating appropriate use. Knee-high YOSSI hose and sequential compression devices in place to his bilateral lower extremities. Atrial epicardial pacemaker wires in place and connected to back up to bedside pacemaker generator. No edema present. Pa lpable ulnar pulse to his left upper extremity. - Gastrointestinal Gastrointestinal Comment(s): Abdomen is soft, nontender and nondistended. Hypoactive bowel sounds present in all 4 abdominal quadrants. No guarding or rigidity. No organomegaly. Tolerating oral intake. - Genitourinary Genitourinary Comment(s): Elliott catheter for accurate I&O. Draining clear yusuf urine with 1.3 L of urine output in the last 8 hours. - Integumentary Integumentary Comment(s): Skin is warm and dry. No clubbing or cyanosis is present. Midline sternal incision is clean, dry and approximated. No drainage or redness present. Exofin dressing is clean, dry and intact. Left lower extremity EVH site is clean, dry and intact. No drainage or redness is present. Left arm radial artery harvest sites clean, dry and intact. No drainage or redness is present. TJ drain to his left arm is intact with scant serosanguineous drainage. - Neurologic Neurologic: Present: CNII-XII intact - Musculoskeletal Musculoskeletal: Present: generalized weakness, strength equal bilaterally - Psychiatric Psychiatric: Present: A&O x's 3, appropriate affect, intact judgment & insight - Allied health notes Allied health notes reviewed: nursing - Labs CBC & Chem 7: 08/24/19 04:10 08/24/19 04:10 Labs: Abnormal Lab Results - Last 24 Hours (Table) 08/19/19 08/23/19 08/23/19 Range/Units 09:56 08:42 10:34 WBC (3.8-10.6) k/uL RBC (4.30-5.90) m/uL Hgb (13.0-17.5) gm/dL Hct (39.0-53.0) % Plt Count (150-450) k/uL Neutrophils # (1.3-7.7) k/uL Lymphocytes # (1.0-4.8) k/uL Monocytes # (0-1.0) k/uL INR (<1.2) APTT (22.0-30.0) sec Fibrinogen (200-500) mg/dL ABG pH (7.35-7.45) ABG pCO2 51 H (35-45) mmHg ABG pO2 379 H (83-108) mmHg ABG HCO3 27 H 29 H (21-25) mmol/L ABG Total CO2 28 H 30 H (19-24) mmol/L ABG O2 Saturation 100.0 H 97.9 H (94-97) % ABG Hematocrit 33 L (34.0-46.0) % ABG Sodium (135-146) mmol/L ABG Potassium (3.4-4.5) mmol/L ABG Ionized Calcium (4.5-5.3) mg/dL ABG Glucose 128 H 146 H (75-99) mg/dL ABG Lactic Acid (0.5-1.6) mmol/L Hemoglobin 12.0 L 10.8 L (13.0-17.5) gm/dL Potassium (3.5-5.1) mmol/L Creatinine (0.66-1.25) mg/dL Glucose (74-99) mg/dL POC Glucose (mg/dL) (75-99) mg/dL Calcium (8.4-10.2) mg/dL Ionized Calcium Kristin (4.5-5.3) mg/dL Magnesium (1.6-2.3) mg/dL Alkaline Phosphatase (38-126) U/L Total Protein (6.3-8.2) g/dL Albumin (3.5-5.0) g/dL Arterial Blood Potassium (3.4-4.5) mmol/L Arterial Blood Glucose 128 H 146 H (75-99) mg/dL Crossmatch See Detail 08/23/19 08/23/19 08/23/19 Range/Units 10:34 12:41 13:18 WBC (3.8-10.6) k/uL RBC (4.30-5.90) m/uL Hgb (13.0-17.5) gm/dL Hct (39.0-53.0) % Plt Count (150-450) k/uL Neutrophils # (1.3-7.7) k/uL Lymphocytes # (1.0-4.8) k/uL Monocytes # (0-1.0) k/uL INR (<1.2) APTT (22.0-30.0) sec Fibrinogen (200-500) mg/dL ABG pH (7.35-7.45) ABG pCO2 (35-45) mmHg ABG pO2 401 H 217 H 120 H (83-108) mmHg ABG HCO3 26 H 26 H 26 H (21-25) mmol/L ABG Total CO2 27 H 27 H 27 H (19-24) mmol/L ABG O2 Saturation 99.9 H 99.7 H 98.9 H (94-97) % ABG Hematocrit 27 L 24 L 24 L (34.0-46.0) % ABG Sodium 134 L 132 L (135-146) mmol/L ABG Potassium 5.2 H 4.8 H (3.4-4.5) mmol/L ABG Ionized Calcium 4.1 L 4.0 L (4.5-5.3) mg/dL ABG Glucose 143 H 248 H 235 H (75-99) mg/dL ABG Lactic Acid (0.5-1.6) mmol/L Hemoglobin 8.9 L 7.8 L 7.9 L (13.0-17.5) gm/dL Potassium (3.5-5.1) mmol/L Creatinine (0.66-1.25) mg/dL Glucose (74-99) mg/dL POC Glucose (mg/dL) (75-99) mg/dL Calcium (8.4-10.2) mg/dL Ionized Calcium Kristin (4.5-5.3) mg/dL Magnesium (1.6-2.3) mg/dL Alkaline Phosphatase (38-126) U/L Total Protein (6.3-8.2) g/dL Albumin (3.5-5.0) g/dL Arterial Blood Potassium 5.2 H 4.8 H (3.4-4.5) mmol/L Arterial Blood Glucose 143 H 248 H 235 H (75-99) mg/dL Crossmatch 08/23/19 08/23/19 08/23/19 Range/Units 13:48 15:38 16:50 WBC 20.1 H (3.8-10.6) k/uL RBC 2.71 L (4.30-5.90) m/uL Hgb 8.1 L D (13.0-17.5) gm/dL Hct 25.0 L (39.0-53.0) % Plt Count (150-450) k/uL Neutrophils # 17.1 H (1.3-7.7) k/uL Lymphocytes # (1.0-4.8) k/uL Monocytes # 1.6 H (0-1.0) k/uL INR (<1.2) APTT (22.0-30.0) sec Fibrinogen (200-500) mg/dL ABG pH (7.35-7.45) ABG pCO2 46 H (35-45) mmHg ABG pO2 316 H 233 H (83-108) mmHg ABG HCO3 (21-25) mmol/L ABG Total CO2 26 H 27 H (19-24) mmol/L ABG O2 Saturation 99.9 H 99.7 H (94-97) % ABG Hematocrit 23 L 26 L (34.0-46.0) % ABG Sodium (135-146) mmol/L ABG Potassium (3.4-4.5) mmol/L ABG Ionized Calcium 4.2 L 4.3 L (4.5-5.3) mg/dL ABG Glucose 203 H 107 H (75-99) mg/dL ABG Lactic Acid 2.1 H (0.5-1.6) mmol/L Hemoglobin 7.6 L 8.5 L (13.0-17.5) gm/dL Potassium (3.5-5.1) mmol/L Creatinine (0.66-1.25) mg/dL Glucose (74-99) mg/dL POC Glucose (mg/dL) (75-99) mg/dL Calcium (8.4-10.2) mg/dL Ionized Calcium Kristin (4.5-5.3) mg/dL Magnesium (1.6-2.3) mg/dL Alkaline Phosphatase (38-126) U/L Total Protein (6.3-8.2) g/dL Albumin (3.5-5.0) g/dL Arterial Blood Potassium (3.4-4.5) mmol/L Arterial Blood Glucose 203 H 107 H (75-99) mg/dL Crossmatch 08/23/19 08/23/19 08/23/19 Range/Units 16:50 16:50 16:51 WBC (3.8-10.6) k/uL RBC (4.30-5.90) m/uL Hgb (13.0-17.5) gm/dL Hct (39.0-53.0) % Plt Count (150-450) k/uL Neutrophils # (1.3-7.7) k/uL Lymphocytes # (1.0-4.8) k/uL Monocytes # (0-1.0) k/uL INR 1.2 H (<1.2) APTT 34.4 H (22.0-30.0) sec Fibrinogen 163 L (200-500) mg/dL ABG pH (7.35-7.45) ABG pCO2 (35-45) mmHg ABG pO2 (83-108) mmHg ABG HCO3 (21-25) mmol/L ABG Total CO2 (19-24) mmol/L ABG O2 Saturation (94-97) % ABG Hematocrit (34.0-46.0) % ABG Sodium (135-146) mmol/L ABG Potassium (3.4-4.5) mmol/L ABG Ionized Calcium (4.5-5.3) mg/dL ABG Glucose (75-99) mg/dL ABG Lactic Acid (0.5-1.6) mmol/L Hemoglobin (13.0-17.5) gm/dL Potassium (3.5-5.1) mmol/L Creatinine 0.60 L (0.66-1.25) mg/dL Glucose 101 H (74-99) mg/dL POC Glucose (mg/dL) 109 H (75-99) mg/dL Calcium 8.2 L (8.4-10.2) mg/dL Ionized Calcium Kristin (4.5-5.3) mg/dL Magnesium 2.5 H (1.6-2.3) mg/dL Alkaline Phosphatase 35 L (38-126) U/L Total Protein 4.0 L (6.3-8.2) g/dL Albumin 2.4 L (3.5-5.0) g/dL Arterial Blood Potassium (3.4-4.5) mmol/L Arterial Blood Glucose (75-99) mg/dL Crossmatch 08/23/19 08/23/19 08/23/19 Range/Units 17:04 17:54 18:28 WBC (3.8-10.6) k/uL RBC (4.30-5.90) m/uL Hgb (13.0-17.5) gm/dL Hct (39.0-53.0) % Plt Count (150-450) k/uL Neutrophils # (1.3-7.7) k/uL Lymphocytes # (1.0-4.8) k/uL Monocytes # (0-1.0) k/uL INR (<1.2) APTT (22.0-30.0) sec Fibrinogen (200-500) mg/dL ABG pH (7.35-7.45) ABG pCO2 (35-45) mmHg ABG pO2 70 L (83-108) mmHg ABG HCO3 (21-25) mmol/L ABG Total CO2 27 H (19-24) mmol/L ABG O2 Saturation (94-97) % ABG Hematocrit (34.0-46.0) % ABG Sodium (135-146) mmol/L ABG Potassium (3.4-4.5) mmol/L ABG Ionized Calcium (4.5-5.3) mg/dL ABG Glucose (75-99) mg/dL ABG Lactic Acid (0.5-1.6) mmol/L Hemoglobin (13.0-17.5) gm/dL Potassium (3.5-5.1) mmol/L Creatinine (0.66-1.25) mg/dL Glucose (74-99) mg/dL POC Glucose (mg/dL) 173 H 175 H (75-99) mg/dL Calcium (8.4-10.2) mg/dL Ionized Calcium Kristin (4.5-5.3) mg/dL Magnesium (1.6-2.3) mg/dL Alkaline Phosphatase (38-126) U/L Total Protein (6.3-8.2) g/dL Albumin (3.5-5.0) g/dL Arterial Blood Potassium (3.4-4.5) mmol/L Arterial Blood Glucose (75-99) mg/dL Crossmatch 08/23/19 08/23/19 08/23/19 Range/Units 18:59 19:09 20:15 WBC 17.7 H (3.8-10.6) k/uL RBC 2.97 L (4.30-5.90) m/uL Hgb 9.3 L (13.0-17.5) gm/dL Hct 27.6 L (39.0-53.0) % Plt Count 146 L (150-450) k/uL Neutrophils # 15.7 H (1.3-7.7) k/uL Lymphocytes # 0.7 L (1.0-4.8) k/uL Monocytes # 1.1 H (0-1.0) k/uL INR (<1.2) APTT (22.0-30.0) sec Fibrinogen (200-500) mg/dL ABG pH (7.35-7.45) ABG pCO2 (35-45) mmHg ABG pO2 204 H (83-108) mmHg ABG HCO3 (21-25) mmol/L ABG Total CO2 25 H (19-24) mmol/L ABG O2 Saturation 99.0 H (94-97) % ABG Hematocrit (34.0-46.0) % ABG Sodium (135-146) mmol/L ABG Potassium (3.4-4.5) mmol/L ABG Ionized Calcium (4.5-5.3) mg/dL ABG Glucose (75-99) mg/dL ABG Lactic Acid (0.5-1.6) mmol/L Hemoglobin (13.0-17.5) gm/dL Potassium (3.5-5.1) mmol/L Creatinine (0.66-1.25) mg/dL Glucose (74-99) mg/dL POC Glucose (mg/dL) 175 H (75-99) mg/dL Calcium (8.4-10.2) mg/dL Ionized Calcium Kristin (4.5-5.3) mg/dL Magnesium (1.6-2.3) mg/dL Alkaline Phosphatase (38-126) U/L Total Protein (6.3-8.2) g/dL Albumin (3.5-5.0) g/dL Arterial Blood Potassium (3.4-4.5) mmol/L Arterial Blood Glucose (75-99) mg/dL Crossmatch 08/23/19 08/23/19 08/23/19 Range/Units 20:16 21:01 22:19 WBC (3.8-10.6) k/uL RBC (4.30-5.90) m/uL Hgb (13.0-17.5) gm/dL Hct (39.0-53.0) % Plt Count (150-450) k/uL Neutrophils # (1.3-7.7) k/uL Lymphocytes # (1.0-4.8) k/uL Monocytes # (0-1.0) k/uL INR (<1.2) APTT (22.0-30.0) sec Fibrinogen (200-500) mg/dL ABG pH (7.35-7.45) ABG pCO2 (35-45) mmHg ABG pO2 (83-108) mmHg ABG HCO3 (21-25) mmol/L ABG Total CO2 (19-24) mmol/L ABG O2 Saturation (94-97) % ABG Hematocrit (34.0-46.0) % ABG Sodium (135-146) mmol/L ABG Potassium (3.4-4.5) mmol/L ABG Ionized Calcium (4.5-5.3) mg/dL ABG Glucose (75-99) mg/dL ABG Lactic Acid (0.5-1.6) mmol/L Hemoglobin (13.0-17.5) gm/dL Potassium (3.5-5.1) mmol/L Creatinine (0.66-1.25) mg/dL Glucose (74-99) mg/dL POC Glucose (mg/dL) 169 H 156 H 137 H (75-99) mg/dL Calcium (8.4-10.2) mg/dL Ionized Calcium Kristin (4.5-5.3) mg/dL Magnesium (1.6-2.3) mg/dL Alkaline Phosphatase (38-126) U/L Total Protein (6.3-8.2) g/dL Albumin (3.5-5.0) g/dL Arterial Blood Potassium (3.4-4.5) mmol/L Arterial Blood Glucose (75-99) mg/dL Crossmatch 08/23/19 08/23/19 08/24/19 Range/Units 22:26 23:17 00:00 WBC (3.8-10.6) k/uL RBC (4.30-5.90) m/uL Hgb (13.0-17.5) gm/dL Hct (39.0-53.0) % Plt Count (150-450) k/uL Neutrophils # (1.3-7.7) k/uL Lymphocytes # (1.0-4.8) k/uL Monocytes # (0-1.0) k/uL INR (<1.2) APTT (22.0-30.0) sec Fibrinogen (200-500) mg/dL ABG pH (7.35-7.45) ABG pCO2 (35-45) mmHg ABG pO2 (83-108) mmHg ABG HCO3 (21-25) mmol/L ABG Total CO2 25 H (19-24) mmol/L ABG O2 Saturation 98.1 H (94-97) % ABG Hematocrit (34.0-46.0) % ABG Sodium (135-146) mmol/L ABG Potassium (3.4-4.5) mmol/L ABG Ionized Calcium (4.5-5.3) mg/dL ABG Glucose (75-99) mg/dL ABG Lactic Acid (0.5-1.6) mmol/L Hemoglobin (13.0-17.5) gm/dL Potassium (3.5-5.1) mmol/L Creatinine (0.66-1.25) mg/dL Glucose (74-99) mg/dL POC Glucose (mg/dL) 128 H 128 H (75-99) mg/dL Calcium (8.4-10.2) mg/dL Ionized Calcium Kristin (4.5-5.3) mg/dL Magnesium (1.6-2.3) mg/dL Alkaline Phosphatase (38-126) U/L Total Protein (6.3-8.2) g/dL Albumin (3.5-5.0) g/dL Arterial Blood Potassium (3.4-4.5) mmol/L Arterial Blood Glucose (75-99) mg/dL Crossmatch 08/24/19 08/24/19 08/24/19 Range/Units 01:13 01:48 02:46 WBC (3.8-10.6) k/uL RBC (4.30-5.90) m/uL Hgb (13.0-17.5) gm/dL Hct (39.0-53.0) % Plt Count (150-450) k/uL Neutrophils # (1.3-7.7) k/uL Lymphocytes # (1.0-4.8) k/uL Monocytes # (0-1.0) k/uL INR (<1.2) APTT (22.0-30.0) sec Fibrinogen (200-500) mg/dL ABG pH 7.46 H (7.35-7.45) ABG pCO2 (35-45) mmHg ABG pO2 70 L (83-108) mmHg ABG HCO3 (21-25) mmol/L ABG Total CO2 27 H (19-24) mmol/L ABG O2 Saturation (94-97) % ABG Hematocrit (34.0-46.0) % ABG Sodium (135-146) mmol/L ABG Potassium (3.4-4.5) mmol/L ABG Ionized Calcium (4.5-5.3) mg/dL ABG Glucose (75-99) mg/dL ABG Lactic Acid (0.5-1.6) mmol/L Hemoglobin (13.0-17.5) gm/dL Potassium (3.5-5.1) mmol/L Creatinine (0.66-1.25) mg/dL Glucose (74-99) mg/dL POC Glucose (mg/dL) 128 H 130 H (75-99) mg/dL Calcium (8.4-10.2) mg/dL Ionized Calcium Kristin (4.5-5.3) mg/dL Magnesium (1.6-2.3) mg/dL Alkaline Phosphatase (38-126) U/L Total Protein (6.3-8.2) g/dL Albumin (3.5-5.0) g/dL Arterial Blood Potassium (3.4-4.5) mmol/L Arterial Blood Glucose (75-99) mg/dL Crossmatch 08/24/19 08/24/19 08/24/19 Range/Units 02:52 04:10 04:10 WBC 13.6 H (3.8-10.6) k/uL RBC 2.15 L (4.30-5.90) m/uL Hgb 6.8 L* D (13.0-17.5) gm/dL Hct 19.9 L* (39.0-53.0) % Plt Count 141 L (150-450) k/uL Neutrophils # 11.6 H (1.3-7.7) k/uL Lymphocytes # (1.0-4.8) k/uL Monocytes # (0-1.0) k/uL INR (<1.2) APTT (22.0-30.0) sec Fibrinogen (200-500) mg/dL ABG pH (7.35-7.45) ABG pCO2 (35-45) mmHg ABG pO2 (83-108) mmHg ABG HCO3 (21-25) mmol/L ABG Total CO2 (19-24) mmol/L ABG O2 Saturation (94-97) % ABG Hematocrit (34.0-46.0) % ABG Sodium (135-146) mmol/L ABG Potassium (3.4-4.5) mmol/L ABG Ionized Calcium (4.5-5.3) mg/dL ABG Glucose (75-99) mg/dL ABG Lactic Acid (0.5-1.6) mmol/L Hemoglobin (13.0-17.5) gm/dL Potassium 3.1 L (3.5-5.1) mmol/L Creatinine 0.55 L (0.66-1.25) mg/dL Glucose 102 H (74-99) mg/dL POC Glucose (mg/dL) 133 H (75-99) mg/dL Calcium (8.4-10.2) mg/dL Ionized Calcium Kristin 5.8 H (4.5-5.3) mg/dL Magnesium (1.6-2.3) mg/dL Alkaline Phosphatase 37 L (38-126) U/L Total Protein 5.3 L (6.3-8.2) g/dL Albumin (3.5-5.0) g/dL Arterial Blood Potassium (3.4-4.5) mmol/L Arterial Blood Glucose (75-99) mg/dL Crossmatch 08/24/19 08/24/19 Range/Units 04:10 08:46 WBC (3.8-10.6) k/uL RBC (4.30-5.90) m/uL Hgb (13.0-17.5) gm/dL Hct (39.0-53.0) % Plt Count (150-450) k/uL Neutrophils # (1.3-7.7) k/uL Lymphocytes # (1.0-4.8) k/uL Monocytes # (0-1.0) k/uL INR (<1.2) APTT (22.0-30.0) sec Fibrinogen (200-500) mg/dL ABG pH (7.35-7.45) ABG pCO2 (35-45) mmHg ABG pO2 (83-108) mmHg ABG HCO3 (21-25) mmol/L ABG Total CO2 (19-24) mmol/L ABG O2 Saturation (94-97) % ABG Hematocrit (34.0-46.0) % ABG Sodium (135-146) mmol/L ABG Potassium (3.4-4.5) mmol/L ABG Ionized Calcium (4.5-5.3) mg/dL ABG Glucose (75-99) mg/dL ABG Lactic Acid (0.5-1.6) mmol/L Hemoglobin (13.0-17.5) gm/dL Potassium (3.5-5.1) mmol/L Creatinine (0.66-1.25) mg/dL Glucose (74-99) mg/dL POC Glucose (mg/dL) 124 H 170 H (75-99) mg/dL Calcium (8.4-10.2) mg/dL Ionized Calcium Kristin (4.5-5.3) mg/dL Magnesium (1.6-2.3) mg/dL Alkaline Phosphatase (38-126) U/L Total Protein (6.3-8.2) g/dL Albumin (3.5-5.0) g/dL Arterial Blood Potassium (3.4-4.5) mmol/L Arterial Blood Glucose (75-99) mg/dL Crossmatch - Imaging and Cardiology Chest x-ray: report reviewed, image reviewed Assessment and Plan Assessment: 1. Symptomatic multivessel coronary artery disease with history of stent placement to his right coronary artery in 2014, status post triple-vessel coronary artery bypass grafting surgery 2. Unstable angina 3. Ischemic cardiomyopathy with a preoperative ejection fraction of 40-45% 4. Hypertension 5. Dyslipidemia 6. 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 Remote history of tobacco dependence, quit 25 years ago 8. Family history of early onset coronary artery disease with his father diagnosed in his early 50s 9. Daily marijuana use Plan: 1. Continue aspirin, Plavix, statin and beta belkis. Increase metoprolol tartrate 50 mg by mouth twice a day 2. Wean oxygen as tolerated to keep oxygen saturations equal to or greater than 95%. 3. Encourage use of his incentive spirometry 10 times every hour while awake. 4. Continue right IJ Ubly-Billy catheter and right IJ Cordis, decrease Primacor drip to 0.2 mcg/kg/m. 5. Medical management management per primary care service. 6. Keep Elliott catheter in place and continue to record accurate I's and O's. 7. Wean Cleviprex drip to maintain systolic blood pressure less than 150 mmHg. 8. Bronchodilators management per pulmonary medicine recommendations. 9. DVT and GI prophylaxis. 10. Continue to monitor daily labs and chest x-rays. Replace electrolytes per protocol. 11. Start Norvasc 5 mg by mouth daily for radial artery spasm prophylaxis. 12. Increase activity as tolerated. PT/OT is consulted. 13. Pain control per current when necessary regimen. Toradol has been added. 14. Keep atrial epicardial pacemaker wires in place, ground atrial epicardial pacemaker wires. 15. Keep his mediastinal and left pleural chest tubes in place to low continuous wall suction -20 cm H2O. 16. Start Cozaar 25 mg by mouth daily, wean Cleviprex drip. 17. Transfuse 1 unit of PRBCs for hemoglobin of 6.8, once transfusion has completed give Lasix 20 mg IV 1. 18. Discontinue nitroglycerin drip. 19. Cymbalta 60 mg by mouth daily restarted per his home dose. 20. More recommendations to follow based on patient's clinical course. Time with Patient: Greater than 30
[2019-08-24 13:03] LABS: Glucose,Whole Blood 122 mg/dL (75-99)
[2019-08-24 13:45] LABS: Glucose,Whole Blood 124 mg/dL (75-99)
[2019-08-24 14:48] LABS: Basophils % (A) 0 %; Eosinophils % (A) 0 %; HCT 21.7 % (39.0-53.0); HGB 7.6 gm/dL (13.0-17.5); Lymphocytes # (A) 1.4 k/uL (1.0-4.8); Lymphocytes % (A) 8 %; MCH 32.4 pg (25.0-35.0); MCV 92.7 fL (80.0-100.0); Mean Platelet Volume 7.7; Monocytes # (A) 1.5 k/uL (0-1.0); Monocytes % (A) 8 %; Neutrophils # (A) 15.4 k/uL (1.3-7.7); Neutrophils % (A) 83 %; Platelet Count 122 k/uL (150-450); RBC 2.34 m/uL (4.30-5.90); RDW 14.8 % (11.5-15.5); WBC 18.5 k/uL (3.8-10.6)
[2019-08-24 14:56] LABS: Glucose,Whole Blood 118 mg/dL (75-99)
[2019-08-24 15:01] LABS: African American GFR (CKD) >90 (>60 ml/min/1.73 sqM); Anion Gap 8 mmol/L; Blood Urea Nitrogen 10 mg/dL (9-20); Calcium 8.4 mg/dL (8.4-10.2); Carbon Dioxide 26 mmol/L (22-30); Chloride 105 mmol/L (98-107); Glucose 99 mg/dL (74-99); Non-African American GFR(CKD) >90 (>60 ml/min/1.73 sqM); Sodium 139 mmol/L (137-145)
[2019-08-24] MEDS: DEXTROSE 5% IN WATER 100 ML with AMIODARONE 150 MG IV PRN ×2 (15:02→16:28)
[2019-08-24] MEDS: AMIODARONE 360 MG in DEXTROSE 5% IN WATER 200 ML IV PRN ×4 (15:02→22:09)
[2019-08-24 15:10] LABS: Potassium 2.7 mmol/L (3.5-5.1)
[2019-08-24] MEDS: POTASSIUM CHLORIDE ER 20 MEQ TAB.ER PO SCH ×3 (15:45→20:34)
[2019-08-24 16:07] LABS: Glucose,Whole Blood 120 mg/dL (75-99)
[2019-08-24] MEDS: NITROGLYCERIN-D5W PMX 50 MG in DEXTROSE/WATER 1 250ML.BAG IV SCH (16:24)
--- NOTE | 2019-08-24 16:59 | PN ---
PROGRESS NOTE DATE OF SERVICE: 08/24/2019 This 64-year-old gentleman who was admitted after CAD, CABG is being closely monitored. The patient is extubated. The blood sugars are being closely monitored at this time. The patient is off insulin drip. The sugars are slightly fluctuating. The chest tube is in situ. The most recent chest x-ray, which was reviewed by me, showed some atelectasis, which is expected. Dr. Hector is following the patient closely. Past medical history reviewed. Review of systems could not be taken. The patient is still on a Cleviprex drip. CURRENT MEDICATIONS: Reviewed. They include: 1. Hydrocodone. 2. DuoNeb q.i.d. and p.r.n. 3. Amiodarone drip. 4. Norvasc. 5. Aspirin. 6. Lipitor. 7. Dulcolax. 8. Cleviprex. 9. Dexamethasone. 10.Cymbalta. 11.Apresoline. 12.Reglan. 13.Lopressor. 14.P.r.n. medications. 15.K-Dur. PHYSICAL EXAMINATION: The patient is conscious but drowsy. Pulse is 109, blood pressure is 120/51, respiration 14, temperature normal, pulse ox 94% on 4 L. HEENT: Conjunctivae normal. Oral mucosa moist. NECK: No jugular venous distention. No carotid bruit. No lymph node enlargement. CARDIOVASCULAR SYSTEM: S1, S2 muffled. RESPIRATORY SYSTEM: Breath sounds diminished at the bases. A few scattered rhonchi and crackles. ABDOMEN: Soft, non-tender. LEGS: No edema. No swelling. NERVOUS SYSTEM: Diffusely weak. LABS: Labs at this time show WBC 18.5, hemoglobin 7.6, potassium 2.7, sodium 139. ASSESSMENT: 1. Coronary artery disease, 3-vessel disease, status post coronary artery bypass grafting. 2. Diabetes mellitus, type 2, on insulin drip. 3. Increased white count. 4. Hypokalemia. 5. Hypertension. 6. Hyperlipidemia. 7. Chronic back pain, degenerative joint disease. 8. Chronic pain syndrome. 9. History of coronary artery disease, stent. 10.Remote history of nicotine dependence. 11.Anemia as expected. 12.History of tetrahydrocannabinol. 13.FULL CODE. RECOMMENDATIONS AND DISCUSSION: I recommend to continue current medications, continue with the monitoring, symptomatic treatment. Otherwise, incentive spirometry. Continue with monitoring the blood sugars closely. Once the patient is taking enough p.o. medications, home dose of Lantus can be used. Otherwise, continue with the insulin scale currently. Continue to monitor. I also recommend checking magnesium and correct as well, which is low. Further recommendations to follow. MMODL / IJN: [id number] /
[2019-08-24 17:07] LABS: Glucose,Whole Blood 140 mg/dL (75-99)
[2019-08-24 17:53] LABS: Glucose,Whole Blood 127 mg/dL (75-99)
[2019-08-24 19:05] LABS: Glucose,Whole Blood 172 mg/dL (75-99)
[2019-08-24 20:31] LABS: Glucose,Whole Blood 209 mg/dL (75-99)
[2019-08-24] MEDS: AMIODARONE 200 MG TAB PO SCH (20:33)
[2019-08-24] MEDS: SENNOSIDES-DOCUSATE SODIUM 1 EACH TAB PO SCH (20:34)
[2019-08-24] MEDS: METOPROLOL TARTRATE 50 MG TAB PO SCH (20:34)
[2019-08-24 21:11] LABS: Glucose,Whole Blood 173 mg/dL (75-99)
[2019-08-24] MEDS: hydrALAZINE HCL 20 MG/ML 1 ML VIAL IVP PRN (22:12)
[2019-08-24 22:55] LABS: Glucose,Whole Blood 99 mg/dL (75-99)
[2019-08-25] MEDS: IPRATROPIUM-ALBUTEROL 3 ML NEB INHALATION SCH ×5 (00:08→19:37)
[2019-08-25 01:04] LABS: Glucose,Whole Blood 193 mg/dL (75-99)
[2019-08-25 02:16] LABS: Glucose,Whole Blood 182 mg/dL (75-99)
[2019-08-25] MEDS ORDERED: FUROSEMIDE 10 MG/ML 2 ML VIAL IV ONE (02:21)
[2019-08-25] MEDS: HYDROcodone/APAP 5-325MG 1 EACH TAB PO PRN ×5 (02:38→21:53)
[2019-08-25] MEDS ORDERED: POTASSIUM CHLORIDE ER 20 MEQ TAB.ER PO SCH ×3 (03:00→22:00)
[2019-08-25] MEDS: CLEVIDIPINE BUTYRATE 25 MG in EMPTY BAG 1 BAG IV SCH (03:06)
[2019-08-25 03:21] LABS: Glucose,Whole Blood 190 mg/dL (75-99)
[2019-08-25 04:37] LABS: Glucose,Whole Blood 134 mg/dL (75-99)
[2019-08-25 05:25] LABS: Basophils % (A) 0 %; Eosinophils % (A) 0 %; Lymphocytes % (A) 5 %; MCHC 34.9 g/dL (31.0-37.0); MCV 91.8 fL (80.0-100.0); Mean Platelet Volume 8.3; Monocytes # (A) 1.3 k/uL (0-1.0); Monocytes % (A) 6 %; Neutrophils # (A) 20.3 k/uL (1.3-7.7); Neutrophils % (A) 89 %; Platelet Count 127 k/uL (150-450); RDW 15.2 % (11.5-15.5); WBC 22.9 k/uL (3.8-10.6)
[2019-08-25 05:46] LABS: HGB 6.7 gm/dL (13.0-17.5)
[2019-08-25 05:47] LABS: HCT 19.3 % (39.0-53.0)
[2019-08-25 05:57] LABS: ALT 24 U/L (4-49); AST 55 U/L (17-59); African American GFR (CKD) >90 (>60 ml/min/1.73 sqM); Albumin 3.1 g/dL (3.5-5.0); Alkaline Phosphatase 56 U/L (38-126); Anion Gap 10 mmol/L; Blood Urea Nitrogen 11 mg/dL (9-20); Calcium 8.7 mg/dL (8.4-10.2); Carbon Dioxide 24 mmol/L (22-30); Chloride 105 mmol/L (98-107); Glucose 112 mg/dL (74-99); Non-African American GFR(CKD) >90 (>60 ml/min/1.73 sqM); Sodium 139 mmol/L (137-145); Total Bilirubin 0.9 mg/dL (0.2-1.3); Total Protein 4.9 g/dL (6.3-8.2)
[2019-08-25 06:27] LABS: Glucose,Whole Blood 117 mg/dL (75-99)
[2019-08-25] MEDS: hydrALAZINE HCL 20 MG/ML 1 ML VIAL IVP PRN ×3 (06:30→18:15)
[2019-08-25] MEDS: METOPROLOL TARTRATE 50 MG TAB PO SCH (06:52)
[2019-08-25] MEDS: LOSARTAN 25 MG TAB PO SCH (06:53)
[2019-08-25] MEDS: amLODIPine 5 MG TAB PO SCH (06:53)
[2019-08-25] MEDS: POTASSIUM CHLORIDE ER 20 MEQ TAB.ER PO SCH ×2 (06:55→08:24)
[2019-08-25] MEDS ORDERED: METOPROLOL TARTRATE 25 MG TAB PO STA (07:05)
--- NOTE | 2019-08-25 07:26 | P.PN ---
Subjective Progress Note Date: 08/25/19 Principal diagnosis: Symptomatic multivessel coronary artery disease. Past medical history significant for coronary artery disease with history of stent placement to his right coronary artery in 2015, hypertension, hyperlipidemia, daily marijuana use, remote history of nicotine dependence quit smoking 25 years ago, chronic lower back pain, insulin-dependent diabetes mellitus type 2 and family history of early onset coronary artery disease with his dad being diagnosed in his early 50s. POD #2 triple coronary artery bypass grafting using the left internal mammary artery to left anterior descending coronary artery, the left radial artery from the aorta to the second obtuse marginal coronary artery, a reverse greater saphenous vein graft from the aorta to the posterior descending coronary artery. Endoscopic harvesting of the left radial artery, endoscopic harvesting of the left greater saphenous vein from the groin to just below the knee level, intraoperative transesophageal echocardiogram, epi-aortic scanning and graft flow measurements using the Impliantim system. Postoperative acute blood loss anemia, an expected outcome secondary to cardiopulmonary bypass and hemodilution. Postoperative paroxysmal atrial fibrillation, an unexpected but the potential outcome of surgery. The patient was seen at his bedside in the intensive care unit in follow-up today on 08/25/2019. He is sitting up to the bedside chair and is in no acute distress, he is awake, alert and oriented 3. He is complaining of some surgical type pain to his chest tube insertion sites rating his pain 5 out of 10 on the pain scale and denies any complaints of shortness of breath. He remains hemodynamically stable and is currently on no inotropic or pressor support. Yesterday the patient went into paroxysmal atrial fibrillation and was started on amiodarone drip per protocol and his bedside monitor currently shows normal sinus rhythm heart rate 80. Oxygen saturations are 95% on 6 L nasal cannula and he is achieving 750 mL on his incentive spirometry with encouragement. Mediastinal and left pleural chest tubes remain in place to low continuous wall suction -20 cm H2O. No air leak is present. Chest tubes are draining thin serosanguineous drainage with his mediastinal chest tubes draining 50 mL output in the last 8 hours and 500 mL output in the last 24 hours and his left pleural chest tube placed and 70 mL output in the last 8 hours and 270 mL output in the last 24 hours. Right IJ Wakpala-Billy catheter remains in place with current hemodynamics showing a cardiac output of 5.7, cardiac index 2.9, PA pressure 30/15 and PEEP of 5. Laboratory results this morning show a hemoglobin of 6.7 and he will receive 1 unit of PRBCs. Objective - Vital Signs Vital signs: Vital Signs Temp 99.5 F 08/25/19 04:00 Pulse 118 H 08/25/19 05:00 Resp 6 L 08/25/19 05:00 BP 122/71 08/25/19 04:00 Pulse Ox 95 08/25/19 05:00 Intake & Output 08/24/19 08/25/19 08/25/19 18:59 06:59 18:59 Intake Total 2032.327 1345.718 Output Total 3919 1780 Balance -1886.673 -434.282 Weight 86 kg Intake: IV 1108.47 1027 0.9 NaCl- 400 580 Amio bolus 200 Amiodarone 360 mg In 99.3 99 Dextrose 5% in Water 200 ml @ 1 MG/MIN 33.333 mls/ hr IV .Q6H PRN Rx#: [id number] CO/CI injectate 90 40 Nitroglycerin-D5w Pmx 50 1.5 mg In Dextrose/Water 1 250ml.bag @ 5 MCG/MIN 1.5 mls/hr IV .Q24H GABBY Rx#: [id number] Potassium Chloride 20 meq 100 In Water For Injection 1 100ml.bag @ 50 mls/hr IVPB Q2H GABBY Rx#: [id number] Potassium Chloride 20 meq 100 200 In Water For Injection 1 100ml.bag @ 50 mls/hr IVPB Q2HR GABBY Rx#: [id number] Pressure Bags 108 108 Primacor 9.67 Intake, IV Titration 373.857 318.718 Amount Amiodarone 360 mg In 228.333 Dextrose 5% in Water 200 ml @ 1 MG/MIN 33.333 mls/ hr IV .Q6H PRN Rx#: [id number] Clevidipine Butyrate 25 157.866 53.066 mg In Empty Bag 1 bag @ 1 MG/HR 2 mls/hr IV .Q24H GABBY Rx#:[id number] Dexmedetomidine/0.9% NaCl 34.522 (Pmx) 400 mcg In Empty Bag 1 bag @ Titrate IV . Q0M GABBY Rx#:[id number] Insulin Regular 100 unit 52.219 37.319 In Sodium Chloride 0.9% 100 ml @ Per Protocol IV .Q0M GABBY Rx#:[id number] Milrinone-D5w Pmx 20 mg 108.650 In Dextrose/Water 1 100ml .bag @ 0.375 MCG/KG/MIN 9 .675 mls/hr IV .[id number] GABBY Rx#:[id number] Nitroglycerin-D5w Pmx 50 20.6 mg In Dextrose/Water 1 250ml.bag @ 5 MCG/MIN 1.5 mls/hr IV .Q24H GABBY Rx#: [id number] Oral 240 Blood Product 310 Rc As-3 Unit 310 [id number] Output: Chest Tube Drainage 494 220 Left 194 80 Mediastinal 300 140 Urine 3425 1560 Other: Voiding Method Indwelling Catheter Indwelling Catheter ABP, PAP, CO, CI - Last Documented Arterial Blood Pressure 152/54 Pulmonary Artery Pressure 35/19 Cardiac Output 6.6 Cardiac Index 3.3 - Exam This is a 64-year-old pleasant gentleman who is sitting up to the bedside chair in the intensive care unit. He is in no acute distress, he is awake, alert and oriented 3 and is hemodynamically and is on no inotropic or pressor support. Oxygen saturation are 95% on 6 L nasal cannula. - Constitutional General appearance: Present: cooperative, no acute distress, obese - EENT Eyes: Present: PERRLA, poor dentition, normal appearance. Absent: scleral icterus ENT: Present: hearing grossly normal. Absent: thrush - Neck Details: Neck is supple, no JVD. Right IJ Cordis in place with Wakpala-Billy catheter and functioning. - Respiratory Details: Lung sounds essentially clear throughout, diminished to his bilateral bases. Respirations are symmetrical and nonlabored. Oxygen saturation 95% on 6 L nasal cannula. Achieving 750 mL on his incentive spirometry with encouragement. Mediastinal and left pleural chest tubes remain in place to low continuous wall suction -20 cm H2O. No air leak is present. Draining thin serosanguineous drainage. - Cardiovascular Details: Regular rhythm and rate. S1 and S2 present, negative for S3, gallop or murmur. Sternum is stable. Bedside telemetry showing normal sinus rhythm heart rate 80. Atrial epicardial pacemaker wires remaining in place and are grounded. Heart hugger is in place and he is demonstrating appropriate use with encouragement. Knee-high YOSSI hose and sequential compression devices in place to his bilateral lower extremities. No edema present. Ulnar pulse palpable to his left arm. - Gastrointestinal Gastrointestinal Comment(s): Abdomen is soft, nontender and nondistended. Hypoactive bowel sounds present in all 4 abdominal quadrants. No guarding or rigidity. No organomegaly appreciated. Tolerating oral intake. - Genitourinary Genitourinary Comment(s): Elliott catheter for accurate I&O. Draining clear yusuf urine area and 1.2 L of urine output in the last 8 hours. - Integumentary Integumentary Comment(s): Skin is warm and dry. No clubbing or cyanosis is present. Midline sternal incision is clean, dry and approximated. No drainage or redness present. Exofin dressing is clean, dry and intact. Left lower extremity EVH site is clean, dry and intact. No drainage or redness is present. Left arm radial artery harvest sites clean, dry and intact. No drainage or redness is present. - Neurologic Neurologic Comment(s): No focal neurological deficits. Neurologic: Present: CNII-XII intact - Musculoskeletal Musculoskeletal: Present: gait normal, generalized weakness, strength equal bilaterally - Psychiatric Psychiatric Comment(s): Flat affect Psychiatric: Present: A&O x's 3, intact judgment & insight - Allied health notes Allied health notes reviewed: nursing - Labs CBC & Chem 7: 08/25/19 04:40 08/25/19 04:40 Labs: Abnormal Lab Results - Last 24 Hours (Table) 08/19/19 08/24/19 08/24/19 Range/Units 09:56 08:46 09:18 WBC (3.8-10.6) k/uL RBC (4.30-5.90) m/uL Hgb (13.0-17.5) gm/dL Hct (39.0-53.0) % Plt Count (150-450) k/uL Neutrophils # (1.3-7.7) k/uL Monocytes # (0-1.0) k/uL Potassium (3.5-5.1) mmol/L Creatinine (0.66-1.25) mg/dL Glucose (74-99) mg/dL POC Glucose (mg/dL) 170 H 225 H (75-99) mg/dL Total Protein (6.3-8.2) g/dL Albumin (3.5-5.0) g/dL Crossmatch See Detail 08/24/19 08/24/19 08/24/19 Range/Units 09:54 10:54 13:02 WBC (3.8-10.6) k/uL RBC (4.30-5.90) m/uL Hgb (13.0-17.5) gm/dL Hct (39.0-53.0) % Plt Count (150-450) k/uL Neutrophils # (1.3-7.7) k/uL Monocytes # (0-1.0) k/uL Potassium (3.5-5.1) mmol/L Creatinine (0.66-1.25) mg/dL Glucose (74-99) mg/dL POC Glucose (mg/dL) 209 H 144 H 122 H (75-99) mg/dL Total Protein (6.3-8.2) g/dL Albumin (3.5-5.0) g/dL Crossmatch 08/24/19 08/24/19 08/24/19 Range/Units 13:03 13:03 13:44 WBC 18.5 H (3.8-10.6) k/uL RBC 2.34 L (4.30-5.90) m/uL Hgb 7.6 L (13.0-17.5) gm/dL Hct 21.7 L (39.0-53.0) % Plt Count 122 L (150-450) k/uL Neutrophils # 15.4 H (1.3-7.7) k/uL Monocytes # 1.5 H (0-1.0) k/uL Potassium 2.7 L* (3.5-5.1) mmol/L Creatinine 0.59 L (0.66-1.25) mg/dL Glucose (74-99) mg/dL POC Glucose (mg/dL) 124 H (75-99) mg/dL Total Protein (6.3-8.2) g/dL Albumin (3.5-5.0) g/dL Crossmatch 08/24/19 08/24/19 08/24/19 Range/Units 14:55 16:05 17:05 WBC (3.8-10.6) k/uL RBC (4.30-5.90) m/uL Hgb (13.0-17.5) gm/dL Hct (39.0-53.0) % Plt Count (150-450) k/uL Neutrophils # (1.3-7.7) k/uL Monocytes # (0-1.0) k/uL Potassium (3.5-5.1) mmol/L Creatinine (0.66-1.25) mg/dL Glucose (74-99) mg/dL POC Glucose (mg/dL) 118 H 120 H 140 H (75-99) mg/dL Total Protein (6.3-8.2) g/dL Albumin (3.5-5.0) g/dL Crossmatch 08/24/19 08/24/19 08/24/19 Range/Units 17:52 19:03 20:30 WBC (3.8-10.6) k/uL RBC (4.30-5.90) m/uL Hgb (13.0-17.5) gm/dL Hct (39.0-53.0) % Plt Count (150-450) k/uL Neutrophils # (1.3-7.7) k/uL Monocytes # (0-1.0) k/uL Potassium (3.5-5.1) mmol/L Creatinine (0.66-1.25) mg/dL Glucose (74-99) mg/dL POC Glucose (mg/dL) 127 H 172 H 209 H (75-99) mg/dL Total Protein (6.3-8.2) g/dL Albumin (3.5-5.0) g/dL Crossmatch 08/24/19 08/25/19 08/25/19 Range/Units 21:10 01:02 02:13 WBC (3.8-10.6) k/uL RBC (4.30-5.90) m/uL Hgb (13.0-17.5) gm/dL Hct (39.0-53.0) % Plt Count (150-450) k/uL Neutrophils # (1.3-7.7) k/uL Monocytes # (0-1.0) k/uL Potassium (3.5-5.1) mmol/L Creatinine (0.66-1.25) mg/dL Glucose (74-99) mg/dL POC Glucose (mg/dL) 173 H 193 H 182 H (75-99) mg/dL Total Protein (6.3-8.2) g/dL Albumin (3.5-5.0) g/dL Crossmatch 08/25/19 08/25/19 08/25/19 Range/Units 03:20 04:36 04:40 WBC 22.9 H (3.8-10.6) k/uL RBC 2.10 L (4.30-5.90) m/uL Hgb 6.7 L* (13.0-17.5) gm/dL Hct 19.3 L* (39.0-53.0) % Plt Count 127 L (150-450) k/uL Neutrophils # 20.3 H (1.3-7.7) k/uL Monocytes # 1.3 H (0-1.0) k/uL Potassium (3.5-5.1) mmol/L Creatinine (0.66-1.25) mg/dL Glucose (74-99) mg/dL POC Glucose (mg/dL) 190 H 134 H (75-99) mg/dL Total Protein (6.3-8.2) g/dL Albumin (3.5-5.0) g/dL Crossmatch 08/25/19 08/25/19 Range/Units 04:40 06:26 WBC (3.8-10.6) k/uL RBC (4.30-5.90) m/uL Hgb (13.0-17.5) gm/dL Hct (39.0-53.0) % Plt Count (150-450) k/uL Neutrophils # (1.3-7.7) k/uL Monocytes # (0-1.0) k/uL Potassium 3.0 L (3.5-5.1) mmol/L Creatinine 0.63 L (0.66-1.25) mg/dL Glucose 112 H (74-99) mg/dL POC Glucose (mg/dL) 117 H (75-99) mg/dL Total Protein 4.9 L (6.3-8.2) g/dL Albumin 3.1 L (3.5-5.0) g/dL Crossmatch - Imaging and Cardiology Chest x-ray: report reviewed, image reviewed Assessment and Plan Assessment: 1. Symptomatic multivessel coronary artery disease with history of stent placement to his right coronary artery in 2015, status post triple-vessel coronary artery bypass grafting surgery 2. Unstable angina 3. Ischemic cardiomyopathy with a preoperative ejection fraction of 40-45% 4. Hypertension 5. Dyslipidemia 6. 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 Remote history of tobacco dependence, quit 25 years ago 8. Family history of early onset coronary artery disease with his father diagnosed in his early 50s 9. Daily marijuana use 10. Postoperative acute blood loss anemia, an expected outcome of surgery due to cardiopulmonary bypass and hemodilution 11. Postoperative paroxysmal atrial fibrillation, an unexpected potential outcome of surgery Plan: 1. Continue aspirin, Plavix, statin and beta belkis. Increase metoprolol tartrate 75 mg by mouth twice a day 2. Wean oxygen as tolerated to keep oxygen saturations equal to or greater than 95%. 3. Encourage use of his incentive spirometry 10 times every hour while awake. 4. Remove right IJ Wakpala-Billy catheter and keep right IJ Cordis in place to continue CVP monitoring. 5. Medical management management per primary care service. 6. Keep Elliott catheter in place and continue to record accurate I's and O's. 7. Transfuse 1 unit of PRBCs for hemoglobin of 6.7. 8. Bronchodilators management per pulmonary medicine recommendations. 9. DVT and GI prophylaxis. 10. Continue to monitor daily labs and chest x-rays. Replace electrolytes per protocol. 11. Continue Norvasc 5 mg by mouth daily for radial artery spasm prophylaxis. Please do not discontinue without checking with cardiothoracic surgery service. 12. Increase activity as tolerated. PT/OT is following. 13. Pain control per current when necessary regimen. Continue Toradol. 14. Keep atrial epicardial pacemaker wires in place and grounded. 15. Keep his mediastinal and left pleural chest tubes in place to low continuous wall suction -20 cm H2O. 16. Continue Cozaar 25 mg by mouth daily. 17. Continue home dose of Cymbalta 60 mg by mouth daily. 18. More recommendations to follow based on patient's clinical course. Time with Patient: Greater than 30
[2019-08-25] MEDS ORDERED: PANTOPRAZOLE 40 MG TABLET PO SCH (07:30)
[2019-08-25] MEDS: AMIODARONE 200 MG TAB PO SCH ×2 (08:10→20:24)
[2019-08-25] MEDS: MILRINONE-D5W PMX 20 MG in DEXTROSE/WATER 1 100ML.BAG IV SCH ×2 (08:13→16:47)
[2019-08-25 08:14] LABS: Glucose,Whole Blood 127 mg/dL (75-99)
[2019-08-25] MEDS: ATORVASTATIN 40 MG TAB PO SCH (08:24)
[2019-08-25] MEDS: HEPARIN SODIUM,PORCINE 5,000 UNIT/ML 1 ML VIAL SQ SCH ×3 (08:24→23:35)
[2019-08-25] MEDS: DULoxetine HCL 60 MG CAPSULE.DR PO SCH (08:25)
[2019-08-25] MEDS: ASPIRIN 325 MG TAB PO SCH (08:25)
[2019-08-25] MEDS: CLOPIDOGREL 75 MG TAB PO SCH (08:25)
[2019-08-25] MEDS: ONDANSETRON 4 MG/2 ML VIAL IVP PRN (08:34)
--- NOTE | 2019-08-25 08:46 | XR ---
EXAMINATION TYPE: XR chest 1V portable DATE OF EXAM: 08/25/2019 Comparison: 08/24/2019 Clinical History: 64-year-old male Post Operative Cardiac Surgery Findings: Median sternotomy wires are present with post-CABG clips in mediastinum. Right IJ Hammond-Billy catheter tip is in the right main pulmonary artery. Heart mildly enlarged. Mediastinal drains are present. Lef t-sided chest tube is also present. No appreciable pneumothorax. The mild patchy bibasilar opacities probably represent atelectasis. No sizable effusion. Impression: Mild patchy bibasilar opacities, probably atelectasis. Left-sided chest tube without appreciable pneu mothorax.
[2019-08-25 08:54] LABS: Glucose,Whole Blood 142 mg/dL (75-99)
--- NOTE | 2019-08-25 09:00 | P.PN ---
Subjective Progress Note Date: 08/25/19 Principal diagnosis: status post CABG This is a very pleasant 65-year-old gentleman who was admitted to the hospital recently with chest discomfort and he was diagnosed with unstable angina. He underwent a heart catheterization by Dr. Hua and was found to have severe triple-vessel coronary artery disease. The echo at that point revealed impaired LV function was EF around 40%. A consult from cardiothoracic surgeon was placed and the patient was advised to undergo coronary artery bypass grafting. Yesterday patient underwent elective coronary artery bypass grafting 3 was QUINONES to LAD, SVG to PDA, and radial artery bypass to OM. the patient was seen today, 08/25/2019. He is in normal sinus mechanism. Hemodynamically he remains stable. He is on dual antiplatelet therapy along with high intensity statin. The hemoglobin this morning is low and the patient is in process of receiving one unit of packed RBC. We will continue the current medical regimen and continue following up with the patient. Objective - Vital Signs Vital signs: Vital Signs Temp 98.5 F 08/25/19 08:00 Pulse 74 08/25/19 08:00 Resp 17 08/25/19 08:00 BP 122/71 08/25/19 06:00 Pulse Ox 95 08/25/19 08:00 Intake & Output 08/24/19 08/25/19 08/25/19 18:59 06:59 18:59 Intake Total 2032.327 1345.718 181.713 Output Total 3919 1780 495 Balance -1886.673 -434.282 -313.287 Weight 86 kg Intake: IV 1108.47 1027 177 0.9 NaCl- 400 580 150 Amio bolus 200 Amiodarone 360 mg In 99.3 99 Dextrose 5% in Water 200 ml @ 1 MG/MIN 33.333 mls/ hr IV .Q6H PRN Rx#: [id number] CO/CI injectate 90 40 Nitroglycerin-D5w Pmx 50 1.5 mg In Dextrose/Water 1 250ml.bag @ 5 MCG/MIN 1.5 mls/hr IV .Q24H GABBY Rx#: [id number] Potassium Chloride 20 meq 100 In Water For Injection 1 100ml.bag @ 50 mls/hr IVPB Q2H GABBY Rx#: [id number] Potassium Chloride 20 meq 100 200 In Water For Injection 1 100ml.bag @ 50 mls/hr IVPB Q2HR GABBY Rx#: [id number] Pressure Bags 108 108 27 Primacor 9.67 Intake, IV Titration 373.857 318.718 4.713 Amount Amiodarone 360 mg In 228.333 Dextrose 5% in Water 200 ml @ 1 MG/MIN 33.333 mls/ hr IV .Q6H PRN Rx#: [id number] Clevidipine Butyrate 25 157.866 53.066 mg In Empty Bag 1 bag @ 1 MG/HR 2 mls/hr IV .Q24H GABBY Rx#:[id number] Dexmedetomidine/0.9% NaCl 34.522 (Pmx) 400 mcg In Empty Bag 1 bag @ Titrate IV . Q0M GABBY Rx#:[id number] Insulin Regular 100 unit 52.219 37.319 4.713 In Sodium Chloride 0.9% 100 ml @ Per Protocol IV .Q0M GABBY Rx#:[id number] Milrinone-D5w Pmx 20 mg 108.650 In Dextrose/Water 1 100ml .bag @ 0.375 MCG/KG/MIN 9 .675 mls/hr IV .[id number] GABBY Rx#:[id number] Nitroglycerin-D5w Pmx 50 20.6 mg In Dextrose/Water 1 250ml.bag @ 5 MCG/MIN 1.5 mls/hr IV .Q24H GABBY Rx#: [id number] Oral 240 Blood Product 310 Rc As-3 Unit 310 [id number] Output: Chest Tube Drainage 494 220 70 Bilateral Mediastinal 20 Left 194 80 Left Lateral Chest 50 Mediastinal 300 140 Urine 3425 1560 425 Other: Voiding Method Indwelling Catheter Indwelling Catheter ABP, PAP, CO, CI - Last Documented Arterial Blood Pressure 149/58 Pulmonary Artery Pressure 31/13 Cardiac Output 6.6 Cardiac Index 3.3 - Constitutional General appearance: Present: no acute distress - Respiratory Respiratory: bilateral: CTA - Cardiovascular Rhythm: regular Heart sounds: normal: S1, S2 - Labs CBC & Chem 7: 08/25/19 04:40 08/25/19 04:40 Labs: Abnormal Lab Results - Last 24 Hours (Table) 08/19/19 08/24/19 08/24/19 Range/Units 09:56 09:18 09:54 WBC (3.8-10.6) k/uL RBC (4.30-5.90) m/uL Hgb (13.0-17.5) gm/dL Hct (39.0-53.0) % Plt Count (150-450) k/uL Neutrophils # (1.3-7.7) k/uL Monocytes # (0-1.0) k/uL Potassium (3.5-5.1) mmol/L Creatinine (0.66-1.25) mg/dL Glucose (74-99) mg/dL POC Glucose (mg/dL) 225 H 209 H (75-99) mg/dL Total Protein (6.3-8.2) g/dL Albumin (3.5-5.0) g/dL Crossmatch See Detail 08/24/19 08/24/19 08/24/19 Range/Units 10:54 13:02 13:03 WBC (3.8-10.6) k/uL RBC (4.30-5.90) m/uL Hgb (13.0-17.5) gm/dL Hct (39.0-53.0) % Plt Count (150-450) k/uL Neutrophils # (1.3-7.7) k/uL Monocytes # (0-1.0) k/uL Potassium 2.7 L* (3.5-5.1) mmol/L Creatinine 0.59 L (0.66-1.25) mg/dL Glucose (74-99) mg/dL POC Glucose (mg/dL) 144 H 122 H (75-99) mg/dL Total Protein (6.3-8.2) g/dL Albumin (3.5-5.0) g/dL Crossmatch 08/24/19 08/24/19 08/24/19 Range/Units 13:03 13:44 14:55 WBC 18.5 H (3.8-10.6) k/uL RBC 2.34 L (4.30-5.90) m/uL Hgb 7.6 L (13.0-17.5) gm/dL Hct 21.7 L (39.0-53.0) % Plt Count 122 L (150-450) k/uL Neutrophils # 15.4 H (1.3-7.7) k/uL Monocytes # 1.5 H (0-1.0) k/uL Potassium (3.5-5.1) mmol/L Creatinine (0.66-1.25) mg/dL Glucose (74-99) mg/dL POC Glucose (mg/dL) 124 H 118 H (75-99) mg/dL Total Protein (6.3-8.2) g/dL Albumin (3.5-5.0) g/dL Crossmatch 08/24/19 08/24/19 08/24/19 Range/Units 16:05 17:05 17:52 WBC (3.8-10.6) k/uL RBC (4.30-5.90) m/uL Hgb (13.0-17.5) gm/dL Hct (39.0-53.0) % Plt Count (150-450) k/uL Neutrophils # (1.3-7.7) k/uL Monocytes # (0-1.0) k/uL Potassium (3.5-5.1) mmol/L Creatinine (0.66-1.25) mg/dL Glucose (74-99) mg/dL POC Glucose (mg/dL) 120 H 140 H 127 H (75-99) mg/dL Total Protein (6.3-8.2) g/dL Albumin (3.5-5.0) g/dL Crossmatch 08/24/19 08/24/19 08/24/19 Range/Units 19:03 20:30 21:10 WBC (3.8-10.6) k/uL RBC (4.30-5.90) m/uL Hgb (13.0-17.5) gm/dL Hct (39.0-53.0) % Plt Count (150-450) k/uL Neutrophils # (1.3-7.7) k/uL Monocytes # (0-1.0) k/uL Potassium (3.5-5.1) mmol/L Creatinine (0.66-1.25) mg/dL Glucose (74-99) mg/dL POC Glucose (mg/dL) 172 H 209 H 173 H (75-99) mg/dL Total Protein (6.3-8.2) g/dL Albumin (3.5-5.0) g/dL Crossmatch 08/25/19 08/25/19 08/25/19 Range/Units 01:02 02:13 03:20 WBC (3.8-10.6) k/uL RBC (4.30-5.90) m/uL Hgb (13.0-17.5) gm/dL Hct (39.0-53.0) % Plt Count (150-450) k/uL Neutrophils # (1.3-7.7) k/uL Monocytes # (0-1.0) k/uL Potassium (3.5-5.1) mmol/L Creatinine (0.66-1.25) mg/dL Glucose (74-99) mg/dL POC Glucose (mg/dL) 193 H 182 H 190 H (75-99) mg/dL Total Protein (6.3-8.2) g/dL Albumin (3.5-5.0) g/dL Crossmatch 08/25/19 08/25/19 08/25/19 Range/Units 04:36 04:40 04:40 WBC 22.9 H (3.8-10.6) k/uL RBC 2.10 L (4.30-5.90) m/uL Hgb 6.7 L* (13.0-17.5) gm/dL Hct 19.3 L* (39.0-53.0) % Plt Count 127 L (150-450) k/uL Neutrophils # 20.3 H (1.3-7.7) k/uL Monocytes # 1.3 H (0-1.0) k/uL Potassium 3.0 L (3.5-5.1) mmol/L Creatinine 0.63 L (0.66-1.25) mg/dL Glucose 112 H (74-99) mg/dL POC Glucose (mg/dL) 134 H (75-99) mg/dL Total Protein 4.9 L (6.3-8.2) g/dL Albumin 3.1 L (3.5-5.0) g/dL Crossmatch 08/25/19 08/25/19 08/25/19 Range/Units 06:26 08:13 08:53 WBC (3.8-10.6) k/uL RBC (4.30-5.90) m/uL Hgb (13.0-17.5) gm/dL Hct (39.0-53.0) % Plt Count (150-450) k/uL Neutrophils # (1.3-7.7) k/uL Monocytes # (0-1.0) k/uL Potassium (3.5-5.1) mmol/L Creatinine (0.66-1.25) mg/dL Glucose (74-99) mg/dL POC Glucose (mg/dL) 117 H 127 H 142 H (75-99) mg/dL Total Protein (6.3-8.2) g/dL Albumin (3.5-5.0) g/dL Crossmatch Assessment and Plan Assessment: assessment #1 severe triple-vessel coronary artery disease #2 status post coronary artery bypass grafting as described above #3 ischemic cardiomyopathy #4 diabetes #5 hypertension #6 dyslipidemia Plan #1 continue the current medical regimen including dual antiplatelet therapy #2 continue the high intensity statin as well as metoprolol #3 consider adding PRAMOD inhibitor as well as Aldactone down the line #4 continue monitor the hemoglobin as well as the kidney function #5 follow-up with the patient
--- NOTE | 2019-08-25 09:34 | PN ---
PROGRESS NOTE PULMONARY/CRITICAL CARE PROGRESS NOTE: DATE OF SERVICE: 08/25/2019 This is a 64-year-old male who is postop day #2, status post 3-vessel bypass grafting. The surgery was done by Dr. Denson. Currently, the patient is on 4 L nasal cannula. He is getting a saline IV at 20 mL an hour, amiodarone at 0.5 mg/minute and insulin drip at 2 units an hour. He is doing about 500 to 600 mL on his incentive spirometer. She should probably get a dose of Lasix. He will get a unit of blood this morning. That will be three total units since being here in the ICU. Other than that, he is doing relatively well. Yesterday, in addition to the above, he was on Primacor, Cleviprex, and Precedex. All those have been weaned off. Current vital signs are reviewed, temperature 98.5, heart rate 74, respiratory rate 17, blood pressure 149/58, CVP is 5. Pulmonary artery pressure is 31/13, saturations are 95% on 4 L. Appears in no acute distress. HEENT: Examination is grossly unremarkable. Nasal O2 in place. NECK: Supple, full range of motion. No adenopathy. Neck veins are flat. CARDIOVASCULAR: Examination reveals regular rhythm and rate. Heart rate is 74. S1, S2 normal. No heart murmur. LUNGS: A few scattered rhonchi. No wheezes or crackles. Breath sounds equal. He does not really take deep breaths. ABDOMEN: Soft, bowel sounds are heard. EXTREMITIES: Intact. No edema. SKIN: Without rash. NEUROLOGIC: Examination is essentially normal, although he is a bit lethargic and somnolent. He does wake up and is appropriate. LABS: Reviewed. White count 22.9, hemoglobin 6.7, hematocrit 19.3, platelet count 127,000. Sodium 139, potassium 3, chloride 105, CO2 24, anion gap is 10, BUN and creatinine were 11 and 0.63. Albumin 3.1. Microbiology is currently pending or negative. Chest x-ray done this morning at 8:43 am shows mild fluid overload. There is some mild cephalization and some small effusions. There is also some basilar atelectasis. MEDICATIONS: Medications are reviewed. Everything seems to be appropriate. ASSESSMENT: 1. Postoperative day #2, status post 3-vessel bypass grafting for coronary artery disease. 2. Routine postoperative ventilator management with extubation 10.5 hours after leaving the operating room. 3. History of coronary artery disease with previous stent placement. 4. History of diabetes mellitus. 5. History of hypertension. 6. History of hyperlipidemia. 7. History of degenerative joint disease. 8. History of chronic back pain. 9. Prior history of tobacco use and marijuana use. PLAN: Currently, the patient is doing reasonably well. He needs to work on much more significantly on his incentive spirometer. We encourage deep breathing, coughing and clearing of secretions. He is hemodynamically stable. He remains on amiodarone and insulin as above. He is getting 0.9 IV at 20 mL an hour. Additional recommendations and suggestions are forthcoming. He will get an additional unit of blood today. CRITICAL CARE TIME: 31 minutes. AMBAR / PADMINI: [id number] /
[2019-08-25 09:54] LABS: Glucose,Whole Blood 136 mg/dL (75-99)
[2019-08-25] MEDS: SODIUM CHLORIDE 0.9% 1,000 ML IV SCH (10:22)
[2019-08-25 10:53] LABS: Glucose,Whole Blood 122 mg/dL (75-99)
[2019-08-25 12:08] LABS: Glucose,Whole Blood 101 mg/dL (75-99)
[2019-08-25] MEDS ORDERED: Potassium Replacement Protocol 1 EACH MISC MISCELLANE PRN (12:44)
[2019-08-25 13:18] LABS: Glucose,Whole Blood 132 mg/dL (75-99)
[2019-08-25 13:37] LABS: HCT 23.4 % (39.0-53.0); HGB 7.6 gm/dL (13.0-17.5); MCH 29.5 pg (25.0-35.0); MCHC 32.7 g/dL (31.0-37.0); MCV 90.5 fL (80.0-100.0); Mean Platelet Volume 7.8; Platelet Count 117 k/uL (150-450); RBC 2.58 m/uL (4.30-5.90); RDW 15.9 % (11.5-15.5); WBC 24.1 k/uL (3.8-10.6)
[2019-08-25 14:19] LABS: Glucose,Whole Blood 248 mg/dL (75-99)
[2019-08-25 15:49] LABS: Glucose,Whole Blood 177 mg/dL (75-99)
--- NOTE | 2019-08-25 16:28 | PN ---
PROGRESS NOTE DATE OF SERVICE: 08/25/2019 This 64-year-old gentleman who was admitted CAD, CABG is being closely monitored. The patient has some nausea at this time. The patient's blood sugars are well controlled at 101, 132, without any drip at this time. WBC 24.1, hemoglobin 7.6. Patient is being closely monitored. Patient received potassium supplementation yesterday and today his potassium is 3.8. Past medical history reviewed. REVIEW OF SYSTEMS: CARDIOVASCULAR SYSTEM: No angina, palpitations. RESPIRATORY SYSTEM: As mentioned earlier. GI: As mentioned earlier. : No dysuria or retention. NERVOUS SYSTEM: No numbness, weakness. CURRENT MEDICATIONS: Reviewed. They include: 1. [place] 5 mg q.4 p.r.n. 2. Albuterol. 3. Amiodarone drip. 4. Cordarone. 5. Norvasc. 6. Aspirin. 7. Lipitor. 8. Cleviprex. 9. Cymbalta. 10.Apresoline. 11.Lopressor. 12.P.r.n. medications. Doses are reviewed. PHYSICAL EXAMINATION: Patient is alert, oriented x2. Pulse 63, blood pressure 124/74, respiration normal, temperature normal, pulse ox 97% on 4 L. HEENT: Conjunctivae normal. NECK: No jugular venous distention. CARDIOVASCULAR SYSTEM: S1, S2 muffled. RESPIRATORY SYSTEM: Breath sounds diminished at the bases. Scattered rhonchi and crackles. ABDOMEN: Soft, non-tender. LEGS: No edema. No swelling. NERVOUS SYSTEM: No focal deficit. LABS: WBC 24.1, hemoglobin 7.6. Potassium 3.8. ASSESSMENT: 1. Coronary artery disease, 3-vessel disease, status post coronary artery bypass grafting. 2. Diabetes mellitus, type 2, on insulin. 3. Increased white count. 4. Anemia, normocytic, as expected. 5. Hypokalemia. 6. Hypertension. 7. Hyperlipidemia. 8. Nausea and vomiting, possible acute gastritis. 9. Chronic back pain, degenerative joint disease. 10.Chronic pain syndrome. 11.History of coronary artery disease, stent. 12.Remote history of nicotine dependence. 13.History of tetrahydrocannabinol. 14.FULL CODE. RECOMMENDATIONS AND DISCUSSION: In this 64-year-old gentleman who presented with multiple medical issues, we will monitor the patient closely, continue the current medications, continue symptomatic treatment. Otherwise, recommend IV Protonix. Continue the DVT prophylaxis. Incentive spirometry. Monitor blood pressure closely. Potassium has improved. Repeat white counts. Patient is on an amiodarone. Closely follow with Cardiology and Cardiothoracic Surgery. Further recommendations to follow. MMINGRIDL / CAROLINEN: [id number] /
[2019-08-25 17:04] LABS: Glucose,Whole Blood 120 mg/dL (75-99)
[2019-08-25] MEDS: INSULIN REGULAR 100 UNIT in SODIUM CHLORIDE 0.9% 100 ML IV SCH (17:52)
[2019-08-25 18:12] LABS: Glucose,Whole Blood 115 mg/dL (75-99)
[2019-08-25 19:15] LABS: Glucose,Whole Blood 161 mg/dL (75-99)
[2019-08-25 19:57] LABS: Glucose,Whole Blood 230 mg/dL (75-99)
[2019-08-25 20:03] LABS: Glucose,Whole Blood 199 mg/dL (75-99)
[2019-08-25] MEDS: METOPROLOL TARTRATE 25 MG TAB PO SCH (20:23)
[2019-08-25] MEDS: SENNOSIDES-DOCUSATE SODIUM 1 EACH TAB PO SCH (20:24)
[2019-08-25] MEDS: PANTOPRAZOLE 40 MG/10 ML VIAL IVP SCH (20:24)
[2019-08-25] MEDS: DEXTROSE 5% IN WATER 100 ML with AMIODARONE 150 MG IV PRN ×3 (20:24→22:02)
[2019-08-25 21:06] LABS: Glucose,Whole Blood 219 mg/dL (75-99)
[2019-08-25 23:07] LABS: Glucose,Whole Blood 193 mg/dL (75-99)
[2019-08-25] MEDS ORDERED: DIGOXIN 250 MCG/ML 2 ML AMP IVP STA (23:15)
[2019-08-25] MEDS ORDERED: DIGOXIN 250 MCG/ML 2 ML AMP ONE (23:41)
[2019-08-25 23:58] LABS: Glucose,Whole Blood 174 mg/dL (75-99)
[2019-08-26 00:58] LABS: Glucose,Whole Blood 151 mg/dL (75-99)
[2019-08-26 01:51] LABS: Glucose,Whole Blood 130 mg/dL (75-99)
[2019-08-26 04:36] LABS: Glucose,Whole Blood 151 mg/dL (75-99)
[2019-08-26] MEDS: MILRINONE-D5W PMX 20 MG in DEXTROSE/WATER 1 100ML.BAG IV SCH (04:42)
[2019-08-26] MEDS: HYDROcodone/APAP 5-325MG 1 EACH TAB PO PRN (04:44)
[2019-08-26 05:06] LABS: Glucose,Whole Blood 142 mg/dL (75-99)
[2019-08-26 05:25] LABS: ALT 50 U/L (4-49); AST 53 U/L (17-59); African American GFR (CKD) >90 (>60 ml/min/1.73 sqM); Albumin 2.9 g/dL (3.5-5.0); Alkaline Phosphatase 70 U/L (38-126); Anion Gap 7 mmol/L; Blood Urea Nitrogen 13 mg/dL (9-20); Calcium 8.8 mg/dL (8.4-10.2); Carbon Dioxide 24 mmol/L (22-30); Chloride 105 mmol/L (98-107); Glucose 129 mg/dL (74-99); Non-African American GFR(CKD) >90 (>60 ml/min/1.73 sqM); Potassium 3.7 mmol/L (3.5-5.1); Sodium 136 mmol/L (137-145); Total Bilirubin 0.7 mg/dL (0.2-1.3)
[2019-08-26 05:27] LABS: Anisocytosis Slight; Basophils % (A) 0 %; Eosinophils % (A) 0 %; HCT 22.1 % (39.0-53.0); HGB 7.6 gm/dL (13.0-17.5); Lymphocytes # (A) 1.3 k/uL (1.0-4.8); Lymphocytes % (A) 5 %; MCH 31.2 pg (25.0-35.0); MCHC 34.1 g/dL (31.0-37.0); MCV 91.5 fL (80.0-100.0); Mean Platelet Volume 7.9; Monocytes # (A) 1.5 k/uL (0-1.0); Monocytes % (A) 6 %; Neutrophils # (A) 21.8 k/uL (1.3-7.7); Neutrophils % (A) 88 %; Platelet Count 125 k/uL (150-450); RBC 2.42 m/uL (4.30-5.90); RDW 16.4 % (11.5-15.5); WBC 24.9 k/uL (3.8-10.6)
[2019-08-26] MEDS ORDERED: METOPROLOL TARTRATE 25 MG TAB PO STA (05:52)
[2019-08-26] MEDS ORDERED: DIGOXIN 250 MCG/ML 2 ML AMP IVP ONE ×2 (05:52→11:00)
[2019-08-26] MEDS ORDERED: POTASSIUM CHLORIDE ER 20 MEQ TAB.ER PO SCH (06:00)
[2019-08-26 06:39] LABS: Glucose,Whole Blood 172 mg/dL (75-99)
[2019-08-26] MEDS: IPRATROPIUM-ALBUTEROL 3 ML NEB INHALATION SCH ×4 (07:10→19:43)
[2019-08-26 07:46] LABS: Glucose,Whole Blood 196 mg/dL (75-99)
--- NOTE | 2019-08-26 08:10 | P.PN ---
Subjective Progress Note Date: 08/26/19 Principal diagnosis: status post CABG This is a very pleasant 65-year-old gentleman who was admitted to the hospital recently with chest discomfort and he was diagnosed with unstable angina. He underwent a heart catheterization by Dr. Hua and was found to have severe triple-vessel coronary artery disease. The echo at that point revealed impaired LV function was EF around 40%. A consult from cardiothoracic surgeon was placed and the patient was advised to undergo coronary artery bypass grafting. Yesterday patient underwent elective coronary artery bypass grafting 3 was QUINONES to LAD, SVG to PDA, and radial artery bypass to OM. The patient was seen today, 08/26/2019. He is still requiring oxygen. The chest x-ray was reviewed and showed heart failure. I would suggest give the patient Lasix IV. Hemodynamically he is stable. The hemoglobin this morning is 7.2. GFR is about 60. He continues to be in atrial fibrillation was controlled heart rate. I will suggest to start the patient on oral anticoagulation by tomorrow morning if he continues to be in atrial fibrillation. Objective - Vital Signs Vital signs: Vital Signs Temp 98.4 F 08/26/19 04:00 Pulse 89 08/26/19 07:21 Resp 20 08/26/19 07:00 BP 146/99 08/26/19 05:30 Pulse Ox 95 08/26/19 07:00 Intake & Output 08/25/19 08/26/19 08/26/19 18:59 06:59 18:59 Intake Total 550.029 4046.152 29.889 Output Total 1040 1090 0 Balance -170.513 100.152 29.889 Weight 87 kg Intake: IV 522 612 26 0.9 NaCl- 420 240 20 Amio bolus 300 Pressure Bags 102 72 6 Intake, IV Titration 37.487 38.152 3.889 Amount Insulin Regular 100 unit 37.487 38.152 3.889 In Sodium Chloride 0.9% 100 ml @ Per Protocol IV .Q0M GABBY Rx#:[id number] Oral 540 Blood Product 310 Rc Pheresis 2 As3 Unit 310 [id number] Output: Chest Tube Drainage 215 90 Bilateral Mediastinal 75 Left Lateral Chest 140 90 Urine 825 1000 0 Other: Voiding Method Indwelling Catheter Urinal # Voids 1 0 ABP, PAP, CO, CI - Last Documented Arterial Blood Pressure 137/64 Pulmonary Artery Pressure 33/16 Cardiac Output 5.4 Cardiac Index 2.7 - Constitutional General appearance: Present: no acute distress - Respiratory Respiratory: bilateral: diminished - Cardiovascular Rhythm: irregularly irregular Heart sounds: normal: S1, S2 - Labs CBC & Chem 7: 08/26/19 04:40 08/26/19 04:40 Labs: Abnormal Lab Results - Last 24 Hours (Table) 08/19/19 08/25/19 08/25/19 Range/Units 09:56 08:13 08:53 WBC (3.8-10.6) k/uL RBC (4.30-5.90) m/uL Hgb (13.0-17.5) gm/dL Hct (39.0-53.0) % RDW (11.5-15.5) % Plt Count (150-450) k/uL Neutrophils # (1.3-7.7) k/uL Monocytes # (0-1.0) k/uL Sodium (137-145) mmol/L Creatinine (0.66-1.25) mg/dL Glucose (74-99) mg/dL POC Glucose (mg/dL) 127 H 142 H (75-99) mg/dL ALT (4-49) U/L Total Protein (6.3-8.2) g/dL Albumin (3.5-5.0) g/dL Crossmatch See Detail 08/25/19 08/25/19 08/25/19 Range/Units 09:52 10:51 12:07 WBC (3.8-10.6) k/uL RBC (4.30-5.90) m/uL Hgb (13.0-17.5) gm/dL Hct (39.0-53.0) % RDW (11.5-15.5) % Plt Count (150-450) k/uL Neutrophils # (1.3-7.7) k/uL Monocytes # (0-1.0) k/uL Sodium (137-145) mmol/L Creatinine (0.66-1.25) mg/dL Glucose (74-99) mg/dL POC Glucose (mg/dL) 136 H 122 H 101 H (75-99) mg/dL ALT (4-49) U/L Total Protein (6.3-8.2) g/dL Albumin (3.5-5.0) g/dL Crossmatch 08/25/19 08/25/19 08/25/19 Range/Units 13:05 13:17 14:18 WBC 24.1 H (3.8-10.6) k/uL RBC 2.58 L (4.30-5.90) m/uL Hgb 7.6 L (13.0-17.5) gm/dL Hct 23.4 L (39.0-53.0) % RDW 15.9 H (11.5-15.5) % Plt Count 117 L (150-450) k/uL Neutrophils # (1.3-7.7) k/uL Monocytes # (0-1.0) k/uL Sodium (137-145) mmol/L Creatinine (0.66-1.25) mg/dL Glucose (74-99) mg/dL POC Glucose (mg/dL) 132 H 248 H (75-99) mg/dL ALT (4-49) U/L Total Protein (6.3-8.2) g/dL Albumin (3.5-5.0) g/dL Crossmatch 08/25/19 08/25/19 08/25/19 Range/Units 15:46 17:03 18:09 WBC (3.8-10.6) k/uL RBC (4.30-5.90) m/uL Hgb (13.0-17.5) gm/dL Hct (39.0-53.0) % RDW (11.5-15.5) % Plt Count (150-450) k/uL Neutrophils # (1.3-7.7) k/uL Monocytes # (0-1.0) k/uL Sodium (137-145) mmol/L Creatinine (0.66-1.25) mg/dL Glucose (74-99) mg/dL POC Glucose (mg/dL) 177 H 120 H 115 H (75-99) mg/dL ALT (4-49) U/L Total Protein (6.3-8.2) g/dL Albumin (3.5-5.0) g/dL Crossmatch 05/28/20 05/28/20 05/28/20 Range/Units 19:13 19:56 20:02 WBC (3.8-10.6) k/uL RBC (4.30-5.90) m/uL Hgb (13.0-17.5) gm/dL Hct (39.0-53.0) % RDW (11.5-15.5) % Plt Count (150-450) k/uL Neutrophils # (1.3-7.7) k/uL Monocytes # (0-1.0) k/uL Sodium (137-145) mmol/L Creatinine (0.66-1.25) mg/dL Glucose (74-99) mg/dL POC Glucose (mg/dL) 161 H 230 H 199 H (75-99) mg/dL ALT (4-49) U/L Total Protein (6.3-8.2) g/dL Albumin (3.5-5.0) g/dL Crossmatch 08/25/19 08/25/19 08/25/19 Range/Units 21:05 23:06 23:57 WBC (3.8-10.6) k/uL RBC (4.30-5.90) m/uL Hgb (13.0-17.5) gm/dL Hct (39.0-53.0) % RDW (11.5-15.5) % Plt Count (150-450) k/uL Neutrophils # (1.3-7.7) k/uL Monocytes # (0-1.0) k/uL Sodium (137-145) mmol/L Creatinine (0.66-1.25) mg/dL Glucose (74-99) mg/dL POC Glucose (mg/dL) 219 H 193 H 174 H (75-99) mg/dL ALT (4-49) U/L Total Protein (6.3-8.2) g/dL Albumin (3.5-5.0) g/dL Crossmatch 08/26/19 08/26/19 08/26/19 Range/Units 00:55 01:49 04:36 WBC (3.8-10.6) k/uL RBC (4.30-5.90) m/uL Hgb (13.0-17.5) gm/dL Hct (39.0-53.0) % RDW (11.5-15.5) % Plt Count (150-450) k/uL Neutrophils # (1.3-7.7) k/uL Monocytes # (0-1.0) k/uL Sodium (137-145) mmol/L Creatinine (0.66-1.25) mg/dL Glucose (74-99) mg/dL POC Glucose (mg/dL) 151 H 130 H 151 H (75-99) mg/dL ALT (4-49) U/L Total Protein (6.3-8.2) g/dL Albumin (3.5-5.0) g/dL Crossmatch 08/26/19 08/26/19 08/26/19 Range/Units 04:40 04:40 05:04 WBC 24.9 H (3.8-10.6) k/uL RBC 2.42 L (4.30-5.90) m/uL Hgb 7.6 L (13.0-17.5) gm/dL Hct 22.1 L (39.0-53.0) % RDW 16.4 H (11.5-15.5) % Plt Count 125 L (150-450) k/uL Neutrophils # 21.8 H (1.3-7.7) k/uL Monocytes # 1.5 H (0-1.0) k/uL Sodium 136 L (137-145) mmol/L Creatinine 0.64 L (0.66-1.25) mg/dL Glucose 129 H (74-99) mg/dL POC Glucose (mg/dL) 142 H (75-99) mg/dL ALT 50 H (4-49) U/L Total Protein 5.0 L (6.3-8.2) g/dL Albumin 2.9 L (3.5-5.0) g/dL Crossmatch 08/26/19 08/26/19 Range/Units 06:38 07:45 WBC (3.8-10.6) k/uL RBC (4.30-5.90) m/uL Hgb (13.0-17.5) gm/dL Hct (39.0-53.0) % RDW (11.5-15.5) % Plt Count (150-450) k/uL Neutrophils # (1.3-7.7) k/uL Monocytes # (0-1.0) k/uL Sodium (137-145) mmol/L Creatinine (0.66-1.25) mg/dL Glucose (74-99) mg/dL POC Glucose (mg/dL) 172 H 196 H (75-99) mg/dL ALT (4-49) U/L Total Protein (6.3-8.2) g/dL Albumin (3.5-5.0) g/dL Crossmatch Assessment and Plan Assessment: assessment #1 severe triple-vessel coronary artery disease #2 status post coronary artery bypass grafting as described above #3 ischemic cardiomyopathy #4 diabetes #5 hypertension #6 dyslipidemia Plan #1 continue the current medical regimen including dual antiplatelet therapy #2 continue the high intensity statin as well as metoprolol #3 consider oral anticoagulation by tomorrow if she continues to be in atrial fi brillation #4 consider giving the patient Lasix IV # follow-up with the patient
--- NOTE | 2019-08-26 08:21 | XR ---
EXAMINATION TYPE: XR chest 1V portable DATE OF EXAM: 08/26/2019 COMPARISON: Chest x-ray 08/25/2019 HISTORY: Postop cardiac surgery TECHNIQUE: Single frontal view of the chest is obtained. FINDINGS: There is been interval removal of the central venous catheter. Patient is post median ster notomy. The heart is enlarged. Central vascularity and interstitium are increased. Left-sided chest t ube remains in place. No sizable pneumothorax. There are overlying artifacts and leads. Bibasilar, pe rihilar attenuation is present. IMPRESSION: Correlate for volume overload, congestive heart failure.
[2019-08-26 08:38] LABS: Glucose,Whole Blood 265 mg/dL (75-99)
[2019-08-26] MEDS: MAGNESIUM SULFATE-D5W PMX 1 GM in DEXTROSE/WATER 1 100ML.BAG IVPB SCH ×2 (08:38→09:44)
[2019-08-26] MEDS: HEPARIN SODIUM,PORCINE 5,000 UNIT/ML 1 ML VIAL SQ SCH ×2 (08:39→16:58)
[2019-08-26] MEDS: ASPIRIN 325 MG TAB PO SCH (08:39)
[2019-08-26] MEDS: PANTOPRAZOLE 40 MG/10 ML VIAL IVP SCH ×2 (08:39→21:19)
[2019-08-26] MEDS: AMIODARONE 200 MG TAB PO SCH ×2 (08:39→21:20)
[2019-08-26] MEDS: CLOPIDOGREL 75 MG TAB PO SCH (08:39)
[2019-08-26] MEDS: amLODIPine 5 MG TAB PO SCH (08:39)
[2019-08-26] MEDS: METOPROLOL TARTRATE 25 MG TAB PO SCH (08:39)
[2019-08-26] MEDS: ATORVASTATIN 40 MG TAB PO SCH (08:40)
[2019-08-26] MEDS: DULoxetine HCL 60 MG CAPSULE.DR PO SCH (08:40)
[2019-08-26] MEDS: LOSARTAN 25 MG TAB PO SCH (08:40)
[2019-08-26] MEDS ORDERED: FUROSEMIDE 10 MG/ML 4 ML VIAL IV STA (08:43)
[2019-08-26] MEDS ORDERED: POTASSIUM CHLORIDE ER 20 MEQ TAB.ER PO STA (08:43)
[2019-08-26] MEDS ORDERED: ACETAMINOPHEN TAB 500 MG TAB PO PRN (08:45)
[2019-08-26] MEDS ORDERED: METOPROLOL TARTRATE 25 MG TAB PO ONE (09:00)
--- NOTE | 2019-08-26 09:20 | P.PN ---
Subjective Progress Note Date: 08/26/19 Principal diagnosis: Coronary artery disease status post coronary artery bypass grafting, postoperative day #3 The patient is seen today 08/26/2019 in follow-up in the intensive care unit. This is postoperative day #3 of coronary artery revascularization. He is currently sitting up in a chair at the bedside. Awake and alert in no acute distress. He does drift off easily. He still on 6 L high flow nasal cannula. He did require up to 10 L last night. He is on insulin drip at 3.5 units an hour. 0.9 normal saline at 20 mL per hour. Chest x-ray continues to show evidence of fluid volume overload. He does need increased encouragement regarding the use of the incentive spirometer. White count 24.9. Hemoglobin 7.6. Platelet count 125. Sodium 136. Potassium 3.7. Creatinine 0.64. He remains in atrial fibrillation. He did receive digoxin last evening. Remains on beta blockers. Objective - Vital Signs Vital signs: Vital Signs Temp 99 F 08/26/19 08:00 Pulse 101 H 08/26/19 08:00 Resp 22 08/26/19 08:00 BP 146/99 08/26/19 08:00 Pulse Ox 93 L 08/26/19 08:00 Intake & Output 08/25/19 08/26/19 08/26/19 18:59 06:59 18:59 Intake Total 446.110 3317.152 420.350 Output Total 1040 1090 200 Balance -170.513 100.152 220.350 Weight 87 kg Intake: IV 522 612 52 0.9 NaCl- 420 240 40 Amio bolus 300 Pressure Bags 102 72 12 Intake, IV Titration 37.487 38.152 128.350 Amount Insulin Regular 100 unit 37.487 38.152 8.350 In Sodium Chloride 0.9% 100 ml @ Per Protocol IV .Q0M [facility] Rx#:[id number] Magnesium Sulfate-D5w Pmx 100 1 gm In Dextrose/Water 1 100ml.bag @ 100 mls/hr IVPB Q1H G[facility]BY Rx#: [id number] Sodium Chloride 0.9% 1, 20 000 ml @ 20 mls/hr IV . Q24H GABBY Rx#:[id number] Oral 540 240 Blood Product 310 Rc Pheresis 2 As3 Unit 310 [id number] Output: Chest Tube Drainage 215 90 0 Bilateral Mediastinal 75 Left Lateral Chest 140 90 0 Urine 825 1000 200 Other: Voiding Method Indwelling Catheter Urinal # Voids 1 0 ABP, PAP, CO, CI - Last Documented Arterial Blood Pressure 121/59 Pulmonary Artery Pressure 33/16 Cardiac Output 5.4 Cardiac Index 2.7 - Exam GENERAL EXAM: Alert, pleasant 64-year-old gentleman, on 6 L high flow nasal cannula, comfortable in no apparent distress. HEAD: Normocephalic. EYES: Normal reaction of pupils, equal size. NOSE: Clear with pink turbinates. THROAT: No erythema or exudates. NECK: No masses, no JVD. CHEST: Sternal dressing dry and intact. Her upper and place. LUNGS: Equal air entry with crackles in the bilateral posterior bases. CVS: S1 and S2 normal with no audible murmur, regular rhythm. ABDOMEN: No hepatosplenomegaly, normal bowel sounds, no guarding or rigidity. SPINE: No scoliosis or deformity SKIN: No rashes CENTRAL NERVOUS SYSTEM: No focal deficits, tone is normal in all 4 extremities. EXTREMITIES: There is no peripheral edema. No clubbing, no cyanosis. Peripheral pulses are intact. - Labs CBC & Chem 7: 08/26/19 04:40 08/26/19 04:40 Labs: Abnormal Lab Results - Last 24 Hours (Table) 08/19/19 08/25/19 08/25/19 Range/Units 09:56 09:52 10:51 WBC (3.8-10.6) k/uL RBC (4.30-5.90) m/uL Hgb (13.0-17.5) gm/dL Hct (39.0-53.0) % RDW (11.5-15.5) % Plt Count (150-450) k/uL Neutrophils # (1.3-7.7) k/uL Monocytes # (0-1.0) k/uL Sodium (137-145) mmol/L Creatinine (0.66-1.25) mg/dL Glucose (74-99) mg/dL POC Glucose (mg/dL) 136 H 122 H (75-99) mg/dL ALT (4-49) U/L Total Protein (6.3-8.2) g/dL Albumin (3.5-5.0) g/dL Crossmatch See Detail 08/25/19 08/25/19 08/25/19 Range/Units 12:07 13:05 13:17 WBC 24.1 H (3.8-10.6) k/uL RBC 2.58 L (4.30-5.90) m/uL Hgb 7.6 L (13.0-17.5) gm/dL Hct 23.4 L (39.0-53.0) % RDW 15.9 H (11.5-15.5) % Plt Count 117 L (150-450) k/uL Neutrophils # (1.3-7.7) k/uL Monocytes # (0-1.0) k/uL Sodium (137-145) mmol/L Creatinine (0.66-1.25) mg/dL Glucose (74-99) mg/dL POC Glucose (mg/dL) 101 H 132 H (75-99) mg/dL ALT (4-49) U/L Total Protein (6.3-8.2) g/dL Albumin (3.5-5.0) g/dL Crossmatch 08/25/19 08/25/19 08/25/19 Range/Units 14:18 15:46 17:03 WBC (3.8-10.6) k/uL RBC (4.30-5.90) m/uL Hgb (13.0-17.5) gm/dL Hct (39.0-53.0) % RDW (11.5-15.5) % Plt Count (150-450) k/uL Neutrophils # (1.3-7.7) k/uL Monocytes # (0-1.0) k/uL Sodium (137-145) mmol/L Creatinine (0.66-1.25) mg/dL Glucose (74-99) mg/dL POC Glucose (mg/dL) 248 H 177 H 120 H (75-99) mg/dL ALT (4-49) U/L Total Protein (6.3-8.2) g/dL Albumin (3.5-5.0) g/dL Crossmatch 08/25/19 08/25/19 08/25/19 Range/Units 18:09 19:13 19:56 WBC (3.8-10.6) k/uL RBC (4.30-5.90) m/uL Hgb (13.0-17.5) gm/dL Hct (39.0-53.0) % RDW (11.5-15.5) % Plt Count (150-450) k/uL Neutrophils # (1.3-7.7) k/uL Monocytes # (0-1.0) k/uL Sodium (137-145) mmol/L Creatinine (0.66-1.25) mg/dL Glucose (74-99) mg/dL POC Glucose (mg/dL) 115 H 161 H 230 H (75-99) mg/dL ALT (4-49) U/L Total Protein (6.3-8.2) g/dL Albumin (3.5-5.0) g/dL Crossmatch 08/25/19 08/25/19 08/25/19 Range/Units 20:02 21:05 23:06 WBC (3.8-10.6) k/uL RBC (4.30-5.90) m/uL Hgb (13.0-17.5) gm/dL Hct (39.0-53.0) % RDW (11.5-15.5) % Plt Count (150-450) k/uL Neutrophils # (1.3-7.7) k/uL Monocytes # (0-1.0) k/uL Sodium (137-145) mmol/L Creatinine (0.66-1.25) mg/dL Glucose (74-99) mg/dL POC Glucose (mg/dL) 199 H 219 H 193 H (75-99) mg/dL ALT (4-49) U/L Total Protein (6.3-8.2) g/dL Albumin (3.5-5.0) g/dL Crossmatch 08/25/19 08/26/19 08/26/19 Range/Units 23:57 00:55 01:49 WBC (3.8-10.6) k/uL RBC (4.30-5.90) m/uL Hgb (13.0-17.5) gm/dL Hct (39.0-53.0) % RDW (11.5-15.5) % Plt Count (150-450) k/uL Neutrophils # (1.3-7.7) k/uL Monocytes # (0-1.0) k/uL Sodium (137-145) mmol/L Creatinine (0.66-1.25) mg/dL Glucose (74-99) mg/dL POC Glucose (mg/dL) 174 H 151 H 130 H (75-99) mg/dL ALT (4-49) U/L Total Protein (6.3-8.2) g/dL Albumin (3.5-5.0) g/dL Crossmatch 08/26/19 08/26/19 08/26/19 Range/Units 04:36 04:40 04:40 WBC 24.9 H (3.8-10.6) k/uL RBC 2.42 L (4.30-5.90) m/uL Hgb 7.6 L (13.0-17.5) gm/dL Hct 22.1 L (39.0-53.0) % RDW 16.4 H (11.5-15.5) % Plt Count 125 L (150-450) k/uL Neutrophils # 21.8 H (1.3-7.7) k/uL Monocytes # 1.5 H (0-1.0) k/uL Sodium 136 L (137-145) mmol/L Creatinine 0.64 L (0.66-1.25) mg/dL Glucose 129 H (74-99) mg/dL POC Glucose (mg/dL) 151 H (75-99) mg/dL ALT 50 H (4-49) U/L Total Protein 5.0 L (6.3-8.2) g/dL Albumin 2.9 L (3.5-5.0) g/dL Crossmatch 08/26/19 08/26/19 08/26/19 Range/Units 05:04 06:38 07:45 WBC (3.8-10.6) k/uL RBC (4.30-5.90) m/uL Hgb (13.0-17.5) gm/dL Hct (39.0-53.0) % RDW (11.5-15.5) % Plt Count (150-450) k/uL Neutrophils # (1.3-7.7) k/uL Monocytes # (0-1.0) k/uL Sodium (137-145) mmol/L Creatinine (0.66-1.25) mg/dL Glucose (74-99) mg/dL POC Glucose (mg/dL) 142 H 172 H 196 H (75-99) mg/dL ALT (4-49) U/L Total Protein (6.3-8.2) g/dL Albumin (3.5-5.0) g/dL Crossmatch 08/26/19 Range/Units 08:36 WBC (3.8-10.6) k/uL RBC (4.30-5.90) m/uL Hgb (13.0-17.5) gm/dL Hct (39.0-53.0) % RDW (11.5-15.5) % Plt Count (150-450) k/uL Neutrophils # (1.3-7.7) k/uL Monocytes # (0-1.0) k/uL Sodium (137-145) mmol/L Creatinine (0.66-1.25) mg/dL Glucose (74-99) mg/dL POC Glucose (mg/dL) 265 H (75-99) mg/dL ALT (4-49) U/L Total Protein (6.3-8.2) g/dL Albumin (3.5-5.0) g/dL Crossmatch Assessment and Plan Assessment: 1 Coronary artery disease status post coronary artery bypass grafting 3. Postoperative day #3. 2 History of coronary artery disease with previous stent placement 3 Diabetes mellitus 4 Hypertension 5 Hyperlipidemia 6 Degenerative joint disease 7 Chronic back pain 8 Previous history of tobacco use, daily marijuana use Plan: The patient was seen and evaluated by Dr. Hector Chest x-ray and labs reviewed Plan is for Lasix 40 mg IVP 1 Decrease narcotics Again encouraged the increased use of the incentive spirometer and cough and deep breathing Increase his activity as tolerated Repeat chest x-ray and labs in the a.m. We'll continue to follow and make further recommendations based on his clinical status I, the cosigning physician, performed a history & physical examination of the pa ariela. Lungs sounds with crackles in the bilateral posterior bases. Maintaining good O2 saturations in the 90s on 6 L/m per nasal cannula. I discussed the assessment and plan of care with my nurse practitioner, Mervat Graf. I attest to the above note as dictated by her.
--- NOTE | 2019-08-26 09:23 | P.PN ---
Subjective Progress Note Date: 08/26/19 Principal diagnosis: Symptomatic multivessel coronary artery disease. Past medical history significant for coronary artery disease with history of stent placement to his right coronary artery in 2015, hypertension, hyperlipidemia, daily marijuana use, remote history of nicotine dependence quit smoking 25 years ago, chronic lower back pain, insulin-dependent diabetes mellitus type 2 and family history of early onset coronary artery disease with his dad being diagnosed in his early 50s. POD #3 triple coronary artery bypass grafting using the left internal mammary artery to left anterior descending coronary artery, the left radial artery from the aorta to the second obtuse marginal coronary artery, a reverse greater saphenous vein graft from the aorta to the posterior descending coronary artery. Endoscopic harvesting of the left radial artery, endoscopic harvesting of the left greater saphenous vein from the groin to just below the knee level, intraoperative transesophageal echocardiogram, epi-aortic scanning and graft flow measurements using the [employer] system. Postoperative acute blood loss anemia, an expected outcome secondary to cardiopulmonary bypass and hemodilution. Postoperative paroxysmal atrial fibrillation, an unexpected but the potential outcome of surgery. On 08/26/2019 patient was seen on follow-up at his bedside in the intensive care unit. The patient is currently sitting up to the bedside chair and is in no acute distress. He is awake, alert and oriented 3, although is closing his eyes at times during conversation. Currently denies any complaints of shortness of breath and reports his pain is much more controlled today to his chest tube insertion site. He is rating his pain 2 out of 10 on the pain scale at this time. Right IJ cordis remains in place with current CVP pressure 5 mmHg. Oxygen saturations are 95% on 6 L nasal cannula and he is achieving 1000 mL on his symptoms spirometry with encouragement. The night nurse reports that he ambulated in the intensive care unit hallway last night 2 with minimal assistance and tolerated ambulating about 90 feet. Left pleural chest tube remains in place to low continuous wall suction -20 cm H2O. No air leak is present. Draining thin serosanguineous drainage was 70 mL output in the last 8 hours and 250 mL output in the last 24 hours. His mediastinal chest tubes were removed yesterday without incident. Atrial epicardial pacemaker wires remain in place and grounded. His bedside monitor is showing atrial fibrillation with heart rate 84 bpm, he was loaded with digoxin 500 g and followed by a second dose of 250 g. He remains on metoprolol tartrate and amiodarone for atrial fibrillation prophylaxis. Objective - Vital Signs Vital signs: Vital Signs Temp 98.4 F 08/26/19 04:00 Pulse 89 08/26/19 07:21 Resp 20 08/26/19 07:00 BP 146/99 08/26/19 05:30 Pulse Ox 95 08/26/19 07:00 Intake & Output 08/25/19 08/26/19 08/26/19 18:59 06:59 18:59 Intake Total 197.263 8643.152 420.350 Output Total 1040 1090 200 Balance -170.513 100.152 220.350 Weight 87 kg Intake: IV 522 612 52 0.9 NaCl- 420 240 40 Amio bolus 300 Pressure Bags 102 72 12 Intake, IV Titration 37.487 38.152 128.350 Amount Insulin Regular 100 unit 37.487 38.152 8.350 In Sodium Chloride 0.9% 100 ml @ Per Protocol IV .Q0M GABBY Rx#:[id number] Magnesium Sulfate-D5w Pmx 100 1 gm In Dextrose/Water 1 100ml.bag @ 100 mls/hr IVPB Q1H GABBY Rx#: [id number] Sodium Chloride 0.9% 1, 20 000 ml @ 20 mls/hr IV . Q24H GABBY Rx#:[id number] Oral 540 240 Blood Product 310 Rc Pheresis 2 As3 Unit 310 [id number] Output: Chest Tube Drainage 215 90 0 Bilateral Mediastinal 75 Left Lateral Chest 140 90 0 Urine 825 1000 200 Other: Voiding Method Indwelling Catheter Urinal # Voids 1 0 ABP, PAP, CO, CI - Last Documented Arterial Blood Pressure 137/64 Pulmonary Artery Pressure 33/16 Cardiac Output 5.4 Cardiac Index 2.7 - Exam This is a 64-year-old pleasant gentleman who is sitting up to the bedside chair in the intensive care unit. He is in no acute distress, he is awake, alert and oriented 3, appears somewhat sedated, is hemodynamically and is on no inotropic or pressor support. Oxygen saturation are 95% on 6 L nasal cannula. - Constitutional General appearance: Present: cooperative, no acute distress, obese - EENT Eyes: Present: PERRLA, poor dentition, normal appearance. Absent: scleral icterus ENT: Present: hearing grossly normal - Neck Details: Neck is supple, no JVD. Right IJ cordis remains in place with continuous CVP monitoring, current CVP pressure 5 mmHg. - Respiratory Details: Lung sounds are essentially clear throughout, diminished to his bilateral bases. Respirations are symmetrical and nonlabored. No wheezes, crackles or rhonchi. Oxygen saturation are 95% on 6 L nasal cannula. Achieving 1000 mL on his incentive spirometry with encouragement. Left pleural chest tube remains in place to low continuous wall suction -20 cm H2O. No air leak is present. Draining thin serosanguineous drainage was 70 mL output in the last 8 hours and 250 mL output in the last 24 hours. - Cardiovascular Details: Irregular rhythm with controlled rate. S1 and S2 present, negative for S3, gallop or murmur. Sternum is stable. Bedside telemetry showing atrial fibrillation heart rate 84. Atrial epicardial pacemaker wires in place and rounded. Heart hugger is in place and needs much encouragement with use. Knee- high YOSSI hose and sequential compression devices in place to his bilateral lower extremities. Right IJ Cordis in place with continuous CVP monitoring, current CVP pressure 5 mmHg. - Gastrointestinal Gastrointestinal Comment(s): Abdomen is soft, nontender and nondistended. Active bowel sounds present in all 4 abdominal quadrants. No guarding or rigidity. No organomegaly appreciated. Tolerating oral intake. - Genitourinary Genitourinary Comment(s): Voiding clear yellow urine. 750 mL output in the last 8 hours. - Integumentary Integumentary Comment(s): Skin is warm and dry. No clubbing or cyanosis is present. Midline sternal incision is clean, dry and approximated. No drainage or redness is present. Left lower extremity EVH site is clean, dry and approximated. No drainage or redness is present. Left arm radial artery harvest sites are clean, dry and approximated. No drainage or redness is present. Ulnar pulse palpable to his left arm. - Neurologic Neurologic Comment(s): No focal neurological deficits. Neurologic: Present: CNII-XII intact - Musculoskeletal Musculoskeletal: Present: gait normal, generalized weakness, strength equal b ilaterally - Psychiatric Psychiatric: Present: A&O x's 3, appropriate affect, intact judgment & insight - Allied health notes Allied health notes reviewed: nursing - Labs CBC & Chem 7: 08/26/19 04:40 08/26/19 04:40 Labs: Abnormal Lab Results - Last 24 Hours (Table) 08/19/19 08/25/19 08/25/19 Range/Units 09:56 08:53 09:52 WBC (3.8-10.6) k/uL RBC (4.30-5.90) m/uL Hgb (13.0-17.5) gm/dL Hct (39.0-53.0) % RDW (11.5-15.5) % Plt Count (150-450) k/uL Neutrophils # (1.3-7.7) k/uL Monocytes # (0-1.0) k/uL Sodium (137-145) mmol/L Creatinine (0.66-1.25) mg/dL Glucose (74-99) mg/dL POC Glucose (mg/dL) 142 H 136 H (75-99) mg/dL ALT (4-49) U/L Total Protein (6.3-8.2) g/dL Albumin (3.5-5.0) g/dL Crossmatch See Detail 08/25/19 08/25/19 08/25/19 Range/Units 10:51 12:07 13:05 WBC 24.1 H (3.8-10.6) k/uL RBC 2.58 L (4.30-5.90) m/uL Hgb 7.6 L (13.0-17.5) gm/dL Hct 23.4 L (39.0-53.0) % RDW 15.9 H (11.5-15.5) % Plt Count 117 L (150-450) k/uL Neutrophils # (1.3-7.7) k/uL Monocytes # (0-1.0) k/uL Sodium (137-145) mmol/L Creatinine (0.66-1.25) mg/dL Glucose (74-99) mg/dL POC Glucose (mg/dL) 122 H 101 H (75-99) mg/dL ALT (4-49) U/L Total Protein (6.3-8.2) g/dL Albumin (3.5-5.0) g/dL Crossmatch 08/25/19 08/25/19 08/25/19 Range/Units 13:17 14:18 15:46 WBC (3.8-10.6) k/uL RBC (4.30-5.90) m/uL Hgb (13.0-17.5) gm/dL Hct (39.0-53.0) % RDW (11.5-15.5) % Plt Count (150-450) k/uL Neutrophils # (1.3-7.7) k/uL Monocytes # (0-1.0) k/uL Sodium (137-145) mmol/L Creatinine (0.66-1.25) mg/dL Glucose (74-99) mg/dL POC Glucose (mg/dL) 132 H 248 H 177 H (75-99) mg/dL ALT (4-49) U/L Total Protein (6.3-8.2) g/dL Albumin (3.5-5.0) g/dL Crossmatch 08/25/19 08/25/19 08/25/19 Range/Units 17:03 18:09 19:13 WBC (3.8-10.6) k/uL RBC (4.30-5.90) m/uL Hgb (13.0-17.5) gm/dL Hct (39.0-53.0) % RDW (11.5-15.5) % Plt Count (150-450) k/uL Neutrophils # (1.3-7.7) k/uL Monocytes # (0-1.0) k/uL Sodium (137-145) mmol/L Creatinine (0.66-1.25) mg/dL Glucose (74-99) mg/dL POC Glucose (mg/dL) 120 H 115 H 161 H (75-99) mg/dL ALT (4-49) U/L Total Protein (6.3-8.2) g/dL Albumin (3.5-5.0) g/dL Crossmatch 08/25/19 08/25/19 08/25/19 Range/Units 19:56 20:02 21:05 WBC (3.8-10.6) k/uL RBC (4.30-5.90) m/uL Hgb (13.0-17.5) gm/dL Hct (39.0-53.0) % RDW (11.5-15.5) % Plt Count (150-450) k/uL Neutrophils # (1.3-7.7) k/uL Monocytes # (0-1.0) k/uL Sodium (137-145) mmol/L Creatinine (0.66-1.25) mg/dL Glucose (74-99) mg/dL POC Glucose (mg/dL) 230 H 199 H 219 H (75-99) mg/dL ALT (4-49) U/L Total Protein (6.3-8.2) g/dL Albumin (3.5-5.0) g/dL Crossmatch 08/25/19 08/25/19 08/26/19 Range/Units 23:06 23:57 00:55 WBC (3.8-10.6) k/uL RBC (4.30-5.90) m/uL Hgb (13.0-17.5) gm/dL Hct (39.0-53.0) % RDW (11.5-15.5) % Plt Count (150-450) k/uL Neutrophils # (1.3-7.7) k/uL Monocytes # (0-1.0) k/uL Sodium (137-145) mmol/L Creatinine (0.66-1.25) mg/dL Glucose (74-99) mg/dL POC Glucose (mg/dL) 193 H 174 H 151 H (75-99) mg/dL ALT (4-49) U/L Total Protein (6.3-8.2) g/dL Albumin (3.5-5.0) g/dL Crossmatch 08/26/19 08/26/19 08/26/19 Range/Units 01:49 04:36 04:40 WBC 24.9 H (3.8-10.6) k/uL RBC 2.42 L (4.30-5.90) m/uL Hgb 7.6 L (13.0-17.5) gm/dL Hct 22.1 L (39.0-53.0) % RDW 16.4 H (11.5-15.5) % Plt Count 125 L (150-450) k/uL Neutrophils # 21.8 H (1.3-7.7) k/uL Monocytes # 1.5 H (0-1.0) k/uL Sodium (137-145) mmol/L Creatinine (0.66-1.25) mg/dL Glucose (74-99) mg/dL POC Glucose (mg/dL) 130 H 151 H (75-99) mg/dL ALT (4-49) U/L Total Protein (6.3-8.2) g/dL Albumin (3.5-5.0) g/dL Crossmatch 08/26/19 08/26/19 08/26/19 Range/Units 04:40 05:04 06:38 WBC (3.8-10.6) k/uL RBC (4.30-5.90) m/uL Hgb (13.0-17.5) gm/dL Hct (39.0-53.0) % RDW (11.5-15.5) % Plt Count (150-450) k/uL Neutrophils # (1.3-7.7) k/uL Monocytes # (0-1.0) k/uL Sodium 136 L (137-145) mmol/L Creatinine 0.64 L (0.66-1.25) mg/dL Glucose 129 H (74-99) mg/dL POC Glucose (mg/dL) 142 H 172 H (75-99) mg/dL ALT 50 H (4-49) U/L Total Protein 5.0 L (6.3-8.2) g/dL Albumin 2.9 L (3.5-5.0) g/dL Crossmatch 08/26/19 08/26/19 Range/Units 07:45 08:36 WBC (3.8-10.6) k/uL RBC (4.30-5.90) m/uL Hgb (13.0-17.5) gm/dL Hct (39.0-53.0) % RDW (11.5-15.5) % Plt Count (150-450) k/uL Neutrophils # (1.3-7.7) k/uL Monocytes # (0-1.0) k/uL Sodium (137-145) mmol/L Creatinine (0.66-1.25) mg/dL Glucose (74-99) mg/dL POC Glucose (mg/dL) 196 H 265 H (75-99) mg/dL ALT (4-49) U/L Total Protein (6.3-8.2) g/dL Albumin (3.5-5.0) g/dL Crossmatch - Imaging and Cardiology Chest x-ray: report reviewed, image reviewed Assessment and Plan Assessment: 1. Symptomatic multivessel coronary artery disease with history of stent placement to his right coronary artery in 2014, status post triple-vessel coronary artery bypass grafting surgery 2. Unstable angina 3. Ischemic cardiomyopathy with a preoperative ejection fraction of 40-45% 4. Hypertension 5. Dyslipidemia 6. 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 Remote history of tobacco dependence, quit 25 years ago 8. Family history of early onset coronary artery disease with his father diagnosed in his early 50s 9. Daily marijuana use 10. Postoperative acute blood loss anemia, an expected outcome of surgery due to cardiopulmonary bypass and hemodilution 11. Postoperative paroxysmal atrial fibrillation, an unexpected potential outcome of surgery Plan: 1. Continue aspirin, Plavix, statin and beta belkis. Increase metoprolol tartrate 100 mg by mouth twice a day 2. Wean oxygen as tolerated to keep oxygen saturations equal to or greater than 95%. 3. Encourage use of his incentive spirometry 10 times every hour while awake. 4. Remove right IJ Cordis. 5. Medical management management per primary care service. 6. Lasix 40 mg IV 1 now and potassium 20 mEq by mouth 1 now. Repeat serum potassium level today at 2 PM. 7. Remove left pleural chest tube. 8. Bronchodilators management per pulmonary medicine recommendations. 9. DVT and GI prophylaxis. 10. Continue to monitor daily labs and chest x-rays. Replace electrolytes per protocol. 11. Continue Norvasc 5 mg by mouth daily for radial artery spasm prophylaxis. Please do not discontinue without checking with cardiothoracic surgery service. 12. Increase activity as tolerated. PT/OT is following. 13. Pain control per current when necessary regimen. Continue Toradol. Discontinue Hoyt as the patient is sedated and start acetaminophen 1000 mg by mouth every 6 hours when necessary pain. 14. Keep atrial epicardial pacemaker wires in place and grounded. 15. Give digoxin 250 g IV 1 today at 11 AM for atrial fibrillation prophylaxis. Continue amiodarone 400 mg by mouth twice a day for atrial fibrillation prophylaxis. 16. Continue Cozaar 25 mg by mouth daily. 17. Continue home dose of Cymbalta 60 mg by mouth daily. 18. More recommendations to follow based on patient's clinical course. Time with Patient: Greater than 30
[2019-08-26 09:42] LABS: Glucose,Whole Blood 217 mg/dL (75-99)
[2019-08-26] MEDS ORDERED: INSULIN DETEMIR (LEVEMIR) 100 UNIT/ML SYR SQ STA (11:15)
[2019-08-26 11:19] LABS: Glucose,Whole Blood 169 mg/dL (75-99)
[2019-08-26 12:10] LABS: Glucose,Whole Blood 129 mg/dL (75-99)
[2019-08-26] MEDS: INSULIN ASPART (NovoLOG) 100 UNIT/ML VIAL SQ SCH ×3 (12:10→21:20)
--- NOTE | 2019-08-26 15:41 | PN ---
PROGRESS NOTE DATE OF SERVICE: 08/26/2019 This 64-year-old gentleman admitted after CAD, CABG is being closely monitored. The p.o. intake appears to be improved. The patient also has some change in mental status. Pain medication is being adjusted by Cardiothoracic Surgery. Chest x-ray showed some fluid overload. The patient also had atrial fibrillation. Anticoagulation is being planned at this time. Chest tubes have been removed. The blood sugars are fluctuating at this time. Past medical history reviewed. REVIEW OF SYSTEMS: CARDIOVASCULAR SYSTEM: As mentioned earlier. RESPIRATORY SYSTEM: As mentioned earlier. GI: No nausea, vomiting. : No dysuria or retention. CURRENT MEDICATIONS: Reviewed. They include: 1. Tylenol 1000 mg q.6 p.r.n. 2. DuoNeb q.i.d. and p.r.n. 3. Amiodarone drip. 4. Cordarone. 5. Norvasc 5 mg p.o. daily. 6. Aspirin. 7. Lipitor. 8. Cepacol. 9. Dulcolax. 10.Plavix. 11.Cymbalta. 12.Apresoline. 13.Levemir. 14.Cozaar. 15.Milk of Magnesia. 16.Lopressor. 17.P.r.n. medications. PHYSICAL EXAMINATION: Patient is alert, oriented x2. Pulse 74, blood pressure 116/82, respiration 22, temperature normal, pulse ox 96% on 4 L. HEENT: Conjunctivae normal. NECK: No jugular venous distention. CARDIOVASCULAR SYSTEM: S1, S2 muffled. RESPIRATORY SYSTEM: Breath sounds diminished at the bases. Bilateral scattered rhonchi and crackles. ABDOMEN: Soft, non-tender. LEGS: No edema. No swelling. NERVOUS SYSTEM: No focal deficit. LABS: WBC 24.9, hemoglobin 7.6, and platelets are 125. Sodium 136. Albumin is 2.9. ASSESSMENT: 1. Coronary artery disease, 3-vessel disease, status post coronary artery bypass grafting. 2. Diabetes mellitus, type 2, on insulin. 3. Atrial fibrillation. 4. Increased white count. 5. Anemia, normocytic as expected. 6. Hypokalemia. 7. Hypertension. 8. Hyperlipidemia. 9. Nausea and vomiting; possible acute gastritis. 10.Chronic back pain and degenerative joint disease. 11.Chronic pain syndrome. 12.History of coronary artery disease, stent. 13.Remote history of nicotine dependence. 14.History of tetrahydrocannabinol. 15.FULL CODE. RECOMMENDATIONS AND DISCUSSION: In this 64-year-old gentleman who presented with multiple complex medical issues, we will monitor the patient closely, continue the current medications, continue symptomatic treatment. Monitor electrolytes closely. Otherwise, the home dose of insulin may be initiated and monitor blood sugars closely; about 10 units followed by 25 units subcutaneously at bedtime. Amiodarone, anticoagulation per Cardiothoracic Surgery. Further recommendations to follow. MMODL / IJN: [id number] / MTDD
[2019-08-26] MEDS ORDERED: oxyCODONE ER 80 MG TAB.ER.12H PO STA (16:54)
[2019-08-26 17:04] LABS: Glucose,Whole Blood 233 mg/dL (75-99)
[2019-08-26 20:56] LABS: Glucose,Whole Blood 155 mg/dL (75-99)
[2019-08-26] MEDS ORDERED: INSULIN DETEMIR (LEVEMIR) 100 UNIT/ML SYR SQ SCH (21:00)
[2019-08-26] MEDS: SENNOSIDES-DOCUSATE SODIUM 1 EACH TAB PO SCH (21:19)
[2019-08-26] MEDS: METOPROLOL TARTRATE 50 MG TAB PO SCH (21:20)
[2019-08-27] MEDS: oxyCODONE ER 80 MG TAB.ER.12H PO SCH ×3 (00:04→20:50)
[2019-08-27] MEDS: HEPARIN SODIUM,PORCINE 5,000 UNIT/ML 1 ML VIAL SQ SCH ×3 (00:06→18:29)
[2019-08-27 05:38] LABS: Anisocytosis Slight; HCT 21.5 % (39.0-53.0); HGB 7.2 gm/dL (13.0-17.5); Hypochromasia Slight; MCH 31.8 pg (25.0-35.0); MCHC 33.4 g/dL (31.0-37.0); MCV 95.3 fL (80.0-100.0); Mean Platelet Volume 8.1; Platelet Count 145 k/uL (150-450); RBC 2.26 m/uL (4.30-5.90); RDW 16.4 % (11.5-15.5); WBC 20.5 k/uL (3.8-10.6)
[2019-08-27 06:23] LABS: ALT 72 U/L (4-49); AST 60 U/L (17-59); African American GFR (CKD) >90 (>60 ml/min/1.73 sqM); Albumin 2.9 g/dL (3.5-5.0); Alkaline Phosphatase 99 U/L (38-126); Anion Gap 9 mmol/L; Blood Urea Nitrogen 22 mg/dL (9-20); Calcium 8.5 mg/dL (8.4-10.2); Carbon Dioxide 26 mmol/L (22-30); Chloride 102 mmol/L (98-107); Glucose 102 mg/dL (74-99); Magnesium 2.2 mg/dL (1.6-2.3); Non-African American GFR(CKD) 85 (>60 ml/min/1.73 sqM); Potassium 4.2 mmol/L (3.5-5.1); Sodium 137 mmol/L (137-145); Total Bilirubin 0.5 mg/dL (0.2-1.3); Total Protein 5.1 g/dL (6.3-8.2)
--- NOTE | 2019-08-27 06:57 | P.PN ---
Subjective Progress Note Date: 08/27/19 Principal diagnosis: status post CABG This is a very pleasant 65-year-old gentleman who was admitted to the hospital recently with chest discomfort and he was diagnosed with unstable angina. He underwent a heart catheterization by Dr. Hua and was found to have severe triple-vessel coronary artery disease. The echo at that point revealed impaired LV function was EF around 40%. A consult from cardiothoracic surgeon was placed and the patient was advised to undergo coronary artery bypass grafting. Yesterday patient underwent elective coronary artery bypass grafting 3 was QUINONES to LAD, SVG to PDA, and radial artery bypass to OM. The patient seen today, 08/27/2019. Overall he is doing better. He remains hemodynamically stable. He converted to normal sinus mechanism. He is on maximize medical treatment. I will suggest increasing the dose of Lipitor to 80 mg by mouth daily at bedtime. Hemoglobin this morning is 7.2 and GFR is about 60. From a cardiovascular standpoint of view, the patient is doing good. The chest x-ray was reviewed and seems to be better. Objective - Vital Signs Vital signs: Vital Signs Temp 97.9 F 08/27/19 04:00 Pulse 62 08/27/19 04:00 Resp 19 08/27/19 04:00 BP 96/63 08/27/19 04:00 Pulse Ox 95 08/27/19 04:00 Intake & Output 08/26/19 08/26/19 08/27/19 06:59 18:59 06:59 Intake Total 6784.034 1859.665 520 Output Total 1090 2270 250 Balance 100.152 -1065.335 270 Weight 87 kg Intake: IV 612 58 0.9 NaCl- 240 40 Amio bolus 300 Pressure Bags 72 18 Intake, IV Titration 38.152 306.665 Amount Insulin Regular 100 unit 38.152 26.665 In Sodium Chloride 0.9% 100 ml @ Per Protocol IV .Q0M [facility] Rx#:[id number] Magnesium Sulfate-D5w Pmx 200 1 gm In Dextrose/Water 1 100ml.bag @ 100 mls/hr IVPB Q1H G[facility]BY Rx#: [id number] Sodium Chloride 0.9% 1, 80 000 ml @ 20 mls/hr IV . Q24H G[facility]BY Rx#:[id number] Oral 540 840 520 Output: Chest Tube Drainage 90 20 Left Lateral Chest 90 20 Urine 1000 2250 250 Other: Voiding Method Urinal Urinal Urinal # Voids 1 0 ABP, PAP, CO, CI - Last Documented Arterial Blood Pressure 152/64 Pulmonary Artery Pressure 33/16 Cardiac Output 5.4 Cardiac Index 2.7 - Constitutional General appearance: Present: no acute distress - Respiratory Respiratory: bilateral: diminished - Cardiovascular Rhythm: regular Heart sounds: normal: S1, S2 - Labs CBC & Chem 7: 08/27/19 04:24 08/27/19 04:24 Labs: Abnormal Lab Results - Last 24 Hours (Table) 08/26/19 08/26/19 08/26/19 Range/Units 07:45 08:36 09:40 WBC (3.8-10.6) k/uL RBC (4.30-5.90) m/uL Hgb (13.0-17.5) gm/dL Hct (39.0-53.0) % RDW (11.5-15.5) % Plt Count (150-450) k/uL BUN (9-20) mg/dL Glucose (74-99) mg/dL POC Glucose (mg/dL) 196 H 265 H 217 H (75-99) mg/dL AST (17-59) U/L ALT (4-49) U/L Total Protein (6.3-8.2) g/dL Albumin (3.5-5.0) g/dL 08/26/19 08/26/19 08/26/19 Range/Units 11:17 12:09 17:02 WBC (3.8-10.6) k/uL RBC (4.30-5.90) m/uL Hgb (13.0-17.5) gm/dL Hct (39.0-53.0) % RDW (11.5-15.5) % Plt Count (150-450) k/uL BUN (9-20) mg/dL Glucose (74-99) mg/dL POC Glucose (mg/dL) 169 H 129 H 233 H (75-99) mg/dL AST (17-59) U/L ALT (4-49) U/L Total Protein (6.3-8.2) g/dL Albumin (3.5-5.0) g/dL 08/26/19 08/27/1908/26/20 Range/Units 20:54 04:24 04:24 WBC 20.5 H (3.8-10.6) k/uL RBC 2.26 L (4.30-5.90) m/uL Hgb 7.2 L (13.0-17.5) gm/dL Hct 21.5 L (39.0-53.0) % RDW 16.4 H (11.5-15.5) % Plt Count 145 L (150-450) k/uL BUN 22 H (9-20) mg/dL Glucose 102 H (74-99) mg/dL POC Glucose (mg/dL) 155 H (75-99) mg/dL AST 60 H (17-59) U/L ALT 72 H (4-49) U/L Total Protein 5.1 L (6.3-8.2) g/dL Albumin 2.9 L (3.5-5.0) g/dL Assessment and Plan Assessment: assessment #1 severe triple-vessel coronary artery disease #2 status post coronary artery bypass grafting as described above #3 ischemic cardiomyopathy #4 diabetes #5 hypertension #6 dyslipidemia Plan #1 continue the current medical regimen including dual antiplatelet therapy #2 suggest increasing the dose of Lipitor to 80 mg by mouth daily at bedtime #3 follow-up with the patient
--- NOTE | 2019-08-27 07:00 | XR ---
EXAMINATION TYPE: XR chest 2V DATE OF EXAM: 08/27/2019 COMPARISON: Chest x-ray from yesterday and older studies. HISTORY: Postoperative cardiac surgery. TECHNIQUE: Frontal and lateral views of the chest are obtained. FINDINGS: Interval removal of left-sided chest tube without pneumothorax. Overlying sternal wires an d mediastinal clips redemonstrated. Persistent cardiomegaly with right greater than left bibasilar op acities. Improving central vascular congestion noted. Upper lungs are clear without pneumothorax. Oss eous structures are intact. IMPRESSION: Interval removal of left-sided chest tube without pneumothorax. Improving central vascula r congestion noted. Persistent cardiomegaly with small to tiny bilateral pleural effusions. Persisten t more focal right basilar acute infiltrate and/or atelectasis noted.
[2019-08-27 07:02] LABS: Glucose,Whole Blood 116 mg/dL (75-99)
[2019-08-27] MEDS: INSULIN ASPART (NovoLOG) 100 UNIT/ML VIAL SQ SCH ×4 (07:03→20:49)
[2019-08-27] MEDS: IPRATROPIUM-ALBUTEROL 3 ML NEB INHALATION SCH ×4 (07:46→20:14)
--- NOTE | 2019-08-27 08:25 | P.PN ---
Subjective Progress Note Date: 08/27/19 Principal diagnosis: Symptomatic multivessel coronary artery disease. Past medical history significant for coronary artery disease with history of stent placement to his right coronary artery in 2015, hypertension, hyperlipidemia, daily marijuana use, remote history of nicotine dependence quit smoking 25 years ago, chronic lower back pain, insulin-dependent diabetes mellitus type 2 and family history of early onset coronary artery disease with his dad being diagnosed in his early 50s. POD #4 triple coronary artery bypass grafting using the left internal mammary artery to left anterior descending coronary artery, the left radial artery from the aorta to the second obtuse marginal coronary artery, a reverse greater saphenous vein graft from the aorta to the posterior descending coronary artery. Endoscopic harvesting of the left radial artery, endoscopic harvesting of the left greater saphenous vein from the groin to just below the knee level, intraoperative transesophageal echocardiogram, epi-aortic scanning and graft flow measurements using the [employer] system. Postoperative acute blood loss anemia, an expected outcome secondary to cardiopulmonary bypass and hemodilution. Postoperative paroxysmal atrial fibrillation, an unexpected but the potential outcome of surgery. The patient was seen in follow-up today 08/27/2019 at his bedside in the intensive care unit. Currently, the patient is sitting up to the bedside chair, he is awake, alert and oriented 3 and is in no apparent acute distress. The patient looks much improved today, he denies any complaints of pain or shortness of breath and reports this is the best he has felt since his operation. Oxygen saturations are 96% on 2 L nasal cannula and he is achieving 1000 mL on his incentive spirometry. He is hemodynamically stable and is currently on no inotropic or pressor support. He ambulated in the intensive care unit hallway yesterday 3 with minimal assistance from nursing staff. Atrial epicardial pacemaker wires remain in place and grounded. Bedside telemetry shows normal sinus rhythm heart rate 62 with no further episodes of atrial fibrillation reported. Lasix 40 mg IV was given yesterday with good diuresis results. The left pleural chest tube was removed yesterday without incident. Objective - Vital Signs Vital signs: Vital Signs Temp 97.9 F 08/27/19 04:00 Pulse 66 08/27/19 07:59 Resp 15 08/27/19 07:00 BP 130/71 08/27/19 07:00 Pulse Ox 95 08/27/19 07:00 Intake & Output 08/26/19 08/27/19 08/27/19 18:59 06:59 18:59 Intake Total 1204.665 520 Output Total 2270 425 0 Balance -1065.335 95 0 Weight 86.1 kg Intake: IV 58 0.9 NaCl- 40 Pressure Bags 18 Intake, IV Titration 306.665 Amount Insulin Regular 100 unit 26.665 In Sodium Chloride 0.9% 100 ml @ Per Protocol IV .Q0M GABBY Rx#:[id number] Magnesium Sulfate-D5w Pmx 200 1 gm In Dextrose/Water 1 100ml.bag @ 100 mls/hr IVPB Q1H GABBY Rx#: [id number] Sodium Chloride 0.9% 1, 80 000 ml @ 20 mls/hr IV . Q24H GABBY Rx#:[id number] Oral 840 520 Output: Chest Tube Drainage 20 Left Lateral Chest 20 Urine 2250 425 0 Other: Voiding Method Urinal Urinal # Voids 0 ABP, PAP, CO, CI - Last Documented Arterial Blood Pressure 152/64 Pulmonary Artery Pressure 33/16 Cardiac Output 5.4 Cardiac Index 2.7 - Exam This is a 64-year-old pleasant gentleman who is sitting up to the bedside chair in the intensive care unit. He is in no acute distress, he is awake, alert and oriented 3, he is hemodynamically and is on no inotropic or pressor support. Oxygen saturation are 96% on 2 L nasal cannula. - Constitutional General appearance: Present: cooperative, no acute distress, obese - EENT Eyes: Present: PERRLA, poor dentition, normal appearance. Absent: scleral icterus ENT: Present: hearing grossly normal - Neck Details: Neck is supple, no JVD. No lymphadenopathy. - Respiratory Details: Lung sounds are essentially clear throughout, diminished to his bilateral bases. No wheezes, crackles or rhonchi. Respirations are symmetrical and nonlabored. Oxygen saturation is 96% on 2 L nasal cannula. He is achieving 1000 mL on his incentive spirometry. - Cardiovascular Details: Regular rhythm and rate. S1 and S2 present, negative for S3, gallop or murmur. Sternum is stable. Bedside telemetry showing normal sinus rhythm heart rate 62. Atrial epicardial pacemaker wires are in place and grounded. Knee-high YOSSI hose and sequential compression devices are in place to his bilateral lower extremities. Heart hugger is in place and he is demonstrating appropriate use. No edema present. Palpable ulnar pulse to his left arm. - Gastrointestinal Gastrointestinal Comment(s): Abdomen is soft, nontender and nondistended. Active bowel sounds present in all 4 abdominal quadrants. No guarding or rigidity. No organomegaly. Passing flatus. Tolerating oral intake. - Genitourinary Genitourinary Comment(s): Voiding clear yusuf urine. - Integumentary Integumentary Comment(s): Skin is warm and dry. No clubbing or cyanosis is present. Midline sternal incision is clean, dry and approximated. No drainage or redness is present. Left arm radial artery harvest sites clean, dry and approximated. No drainage or redness is present. Left leg EVH site is clean, dry and approximated. No drainage or redness is present. - Neurologic Neurologic Comment(s): No focal neurological deficits. Neurologic: Present: CNII-XII intact - Musculoskeletal Musculoskeletal: Present: gait normal, generalized weakness, strength equal bilaterally - Psychiatric Psychiatric: Present: A&O x's 3, appropriate affect, intact judgment & insight - Allied health notes Allied health notes reviewed: nursing - Labs CBC & Chem 7: 08/27/19 04:24 08/27/19 04:24 Labs: Abnormal Lab Results - Last 24 Hours (Table) 08/26/19 08/26/19 08/26/19 Range/Units 08:36 09:40 11:17 WBC (3.8-10.6) k/uL RBC (4.30-5.90) m/uL Hgb (13.0-17.5) gm/dL Hct (39.0-53.0) % RDW (11.5-15.5) % Plt Count (150-450) k/uL BUN (9-20) mg/dL Glucose (74-99) mg/dL POC Glucose (mg/dL) 265 H 217 H 169 H (75-99) mg/dL AST (17-59) U/L ALT (4-49) U/L Total Protein (6.3-8.2) g/dL Albumin (3.5-5.0) g/dL 08/26/19 08/26/19 08/26/19 Range/Units 12:09 17:02 20:54 WBC (3.8-10.6) k/uL RBC (4.30-5.90) m/uL Hgb (13.0-17.5) gm/dL Hct (39.0-53.0) % RDW (11.5-15.5) % Plt Count (150-450) k/uL BUN (9-20) mg/dL Glucose (74-99) mg/dL POC Glucose (mg/dL) 129 H 233 H 155 H (75-99) mg/dL AST (17-59) U/L ALT (4-49) U/L Total Protein (6.3-8.2) g/dL Albumin (3.5-5.0) g/dL 08/27/19 08/27/19 08/27/19 Range/Units 04:24 04:24 07:01 WBC 20.5 H (3.8-10.6) k/uL RBC 2.26 L (4.30-5.90) m/uL Hgb 7.2 L (13.0-17.5) gm/dL Hct 21.5 L (39.0-53.0) % RDW 16.4 H (11.5-15.5) % Plt Count 145 L (150-450) k/uL BUN 22 H (9-20) mg/dL Glucose 102 H (74-99) mg/dL POC Glucose (mg/dL) 116 H (75-99) mg/dL AST 60 H (17-59) U/L ALT 72 H (4-49) U/L Total Protein 5.1 L (6.3-8.2) g/dL Albumin 2.9 L (3.5-5.0) g/dL - Imaging and Cardiology Chest x-ray: report reviewed, image reviewed Assessment and Plan Assessment: 1. Symptomatic multivessel coronary artery disease with history of stent placement to his right coronary artery in 2014, status post triple-vessel coronary artery bypass grafting surgery 2. Unstable angina 3. Ischemic cardiomyopathy with a preoperative ejection fraction of 40-45% 4. Hypertension 5. Dyslipidemia 6. 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 Remote history of tobacco dependence, quit 25 years ago 8. Family history of early onset coronary artery disease with his father diagnosed in his early 50s 9. Daily marijuana use 10. Postoperative acute blood loss anemia, an expected outcome of surgery due to cardiopulmonary bypass and hemodilution 11. Postoperative paroxysmal atrial fibrillation, an unexpected potential outcome of surgery Plan: 1. Continue aspirin, Plavix, statin and beta belkis. Increase metoprolol tartrate as tolerated. 2. Wean oxygen as tolerated to keep oxygen saturations equal to or greater than 92%. 3. Encourage use of his incentive spirometry 10 times every hour while awake. 4. Decrease amiodarone to 200 mg by mouth twice a day for atrial fibrillation prophylaxis. 5. Medical management and diabetic management per primary care service. 6. Bronchodilators management per pulmonary medicine recommendations. 7. DVT and GI prophylaxis. 8. Continue to monitor daily labs and chest x-rays. Replace electrolytes per protocol. 9. Continue Norvasc 5 mg by mouth daily for radial artery spasm prophylaxis. Please do not discontinue without checking with cardiothoracic surgery service. 10. Increase activity as tolerated. PT/OT is following. 11. Pain control per current when necessary regimen. Continue Toradol. The patient's home dose of OxyContin was restarted yesterday. 12. Keep atrial epicardial pacemaker wires in place and grounded. 13. Discharge planning in place, anticipate discharge home in the next 48 hours with home health care service. 14. Transferred to [address] [place] [address] cardiac stepdown unit. 15. First postoperative day shower today. 16. More recommendations to follow based on patient's clinical course. Time with Patient: Less than 30
[2019-08-27] MEDS: ASPIRIN 325 MG TAB PO SCH (08:53)
[2019-08-27] MEDS: PANTOPRAZOLE 40 MG/10 ML VIAL IVP SCH ×2 (08:53→20:48)
[2019-08-27] MEDS: METOPROLOL TARTRATE 50 MG TAB PO SCH ×2 (08:53→20:49)
[2019-08-27] MEDS: amLODIPine 5 MG TAB PO SCH (08:54)
[2019-08-27] MEDS: AMIODARONE 200 MG TAB PO SCH ×2 (08:54→20:49)
[2019-08-27] MEDS: LOSARTAN 25 MG TAB PO SCH (08:54)
[2019-08-27] MEDS: DULoxetine HCL 60 MG CAPSULE.DR PO SCH (08:54)
[2019-08-27] MEDS: CLOPIDOGREL 75 MG TAB PO SCH (08:54)
[2019-08-27] MEDS: ATORVASTATIN 40 MG TAB PO SCH (08:56)
[2019-08-27 11:40] LABS: Glucose,Whole Blood 226 mg/dL (75-99)
--- NOTE | 2019-08-27 12:34 | PN ---
PROGRESS NOTE PULMONARY/CRITICAL CARE PROGRESS NOTE: DATE OF SERVICE: 08/27/2019 This is a 64-year-old male, postop day #4, status post 3-vessel bypass grafting. The patient is doing well. He is not on any IV fluids. He is getting O2 of 4 L by nasal cannula. The patient is a selective overflow patient but apparently there were no beds there. He is getting about a 1000 on his incentive spirometer. Denies any shortness of breath, chest discomfort, palpitations, cough, wheezing, phlegm production, fever, chills, nausea, vomiting, diarrhea, abdominal pain, or any genitourinary complaints for that matter. PHYSICAL EXAMINATION: VITAL SIGNS: Current vital signs are reviewed. Temperature is 97.8, heart rate 64, respiratory rate 22, blood pressure 127/68, mean 87, 4 L saturation 98%. Appears in no acute distress. HEENT: Examination is grossly unremarkable. Nasal O2 noted. NECK: Supple full range of motion. No adenopathy. Neck veins are flat. CARDIOVASCULAR: Examination reveals regular rhythm rate. Heart rate 64 beats per minute. S1, S2 normal. LUNGS: Reveal mostly clear breath sounds. A few scattered rhonchi. Breath sounds equal bilaterally. ABDOMEN: Soft. Bowel sounds are heard. EXTREMITIES are intact. No cyanosis, clubbing, or edema. SKIN: Without rash. NEUROLOGIC: Examination is brief but nonfocal. White count 20.5, hemoglobin 7.2, hematocrit 21.5, platelet count 145,000. Sodium, potassium, chloride and CO2 all normal. Anion gap normal. BUN and creatinine were 22 and 0.96. Albumin 2.9. Chest x-ray done this morning shows evidence of removal of left-sided chest tube without pneumothorax. There is some mild venous congestion. Small bilateral effusions. Mild cardiomegaly. Microbiology is negative. Medications are reviewed. ASSESSMENT: 1. Postop day #4, status post 3-vessel bypass grafting. 2. Routine postoperative ventilator management, resolved. 3. History of coronary artery disease with previous stent placement. 4. Diabetes mellitus. 5. Hypertension. 6. Hyperlipidemia. 7. Degenerative joint disease. 8. History of chronic back pain. 9. History of chronic tobacco use and daily marijuana use. PLAN: The patient is doing well. Not receiving any IV fluids. On 4 L nasal cannula. He is doing reasonably well on his incentive spirometer. We will continue to follow closely. No additional recommendations are made. We encourage him to use his spirometer hourly and encourage him to deep breathe, cough and clear secretions. KELLYL / IJN: [id number] /
--- NOTE | 2019-08-27 17:04 | PN ---
PROGRESS NOTE DATE OF SERVICE: 08/27/2019 This 64-year-old gentleman who was admitted with CAD, 3 vessel disease and CABG is being closely monitored. The patient is on the patient's home dose of insulin at this time. The sugars are fluctuating. No chest pain. No palpitations. No fever. Hemoglobin A1c is not available. Hemoglobin is 7.2, WBC 20.1. No chest pain, no palpitation. PHYSICAL EXAMINATION: Alert and oriented x3. Pulse 58, blood pressure 124/70, respiration 18, temperature 98 degrees, pulse ox 98% on 4 L. HEENT: Conjunctivae normal. Oral mucosa moist. NECK: No jugular venous distention. No lymph node enlargement. CARDIOVASCULAR: S1, S2. RESPIRATORY: Diminished breath sounds at the bases. No rhonchi, no crackles. ABDOMEN: Soft, nontender. LEGS: No edema, no swelling. NERVOUS SYSTEM: No focal deficits. LAB STUDIES: WBC 20.1, hemoglobin 7.2, albumin is 2.9. ASSESSMENT: 1. Coronary artery disease, three vessel disease, status post coronary artery bypass grafting. 2. Diabetes type 2, on insulin. 3. Atrial fibrillation. 4. Increased WBC. 5. Anemia, normocytic as expected. 6. Hypokalemia. 7. Hypertension. 8. Hyperlipidemia. 9. Nausea and vomiting, possibly acute gastritis, improved. 10.History of chronic back pain and degenerative joint disease. 11.History of chronic pain syndrome. 12.History of coronary artery disease/stent. 13.Remote history of nicotine dependence. 14.History of THC. 15.FULL CODE. RECOMMENDATIONS AND DISCUSSION: Recommend to continue current medications, continue to monitor, continue symptomatic treatment. Otherwise, I would recommend to increase the dose of Levemir to 30 units q.h.s. and continue to monitor. Otherwise, continue the current management. Continue the rest of the medications. DVT prophylaxis. Further recommendations to follow. MMODL / IJN: [id number] /
[2019-08-27 17:30] LABS: Glucose,Whole Blood 129 mg/dL (75-99)
[2019-08-27 20:26] LABS: Glucose,Whole Blood 205 mg/dL (75-99)
[2019-08-27] MEDS: INSULIN DETEMIR (LEVEMIR) 100 UNIT/ML SYR SQ SCH (20:49)
[2019-08-27] MEDS: SENNOSIDES-DOCUSATE SODIUM 1 EACH TAB PO SCH (20:49)
[2019-08-28] MEDS: HEPARIN SODIUM,PORCINE 5,000 UNIT/ML 1 ML VIAL SQ SCH ×4 (00:02→23:25)
[2019-08-28 02:09] LABS: Glucose,Whole Blood 181 mg/dL (75-99)
[2019-08-28 06:00] LABS: Glucose,Whole Blood 167 mg/dL (75-99)
[2019-08-28] MEDS: INSULIN ASPART (NovoLOG) 100 UNIT/ML VIAL SQ SCH ×4 (06:14→20:32)
[2019-08-28 06:50] LABS: Magnesium 2.2 mg/dL (1.6-2.3); Potassium 3.9 mmol/L (3.5-5.1)
[2019-08-28] MEDS ORDERED: POTASSIUM CHLORIDE ER 20 MEQ TAB.ER PO STA (07:07)
--- NOTE | 2019-08-28 07:36 | XR ---
EXAMINATION TYPE: XR chest 1V portable DATE OF EXAM: 08/28/2019 COMPARISON: 08/27/2019 and 08/24/2019 HISTORY: Postop cardiac surgery TECHNIQUE: Single frontal view of the chest is obtained. FINDINGS: Rounded lucent density over the left heart border is unchanged. Post CABG changes are seen of the chest with enlarged cardiomediastinal silhouette. Improved aeration of the lung bases with mi nimal bibasilar atelectasis remaining. Density inferior to the right midclavicle may be external to t he patient is this was not seen on the prior exam. No new sizable pleural effusion or pneumothorax. IMPRESSION: 1. Rounded density over the left heart border is not present on 08/24/2019 and was present on the rece nt exam, possibly residual subcutaneous emphysema. 2. Improving bibasilar densities, likely atelectasis.
[2019-08-28 07:37] LABS: Anisocytosis Slight; Basophils % (A) 0 %; Eosinophils # (A) 0.2 k/uL (0-0.7); Eosinophils % (A) 1 %; HCT 22.8 % (39.0-53.0); HGB 7.2 gm/dL (13.0-17.5); Hypochromasia Slight; Lymphocytes # (A) 2.2 k/uL (1.0-4.8); Lymphocytes % (A) 15 %; MCH 29.9 pg (25.0-35.0); MCHC 31.6 g/dL (31.0-37.0); MCV 94.5 fL (80.0-100.0); Mean Platelet Volume 8.4; Monocytes # (A) 1.5 k/uL (0-1.0); Monocytes % (A) 10 %; Neutrophils # (A) 10.4 k/uL (1.3-7.7); Neutrophils % (A) 71 %; Platelet Count 208 k/uL (150-450); RBC 2.41 m/uL (4.30-5.90); RDW 16.8 % (11.5-15.5); WBC 14.6 k/uL (3.8-10.6)
[2019-08-28] MEDS: IPRATROPIUM-ALBUTEROL 3 ML NEB INHALATION SCH ×4 (08:03→19:22)
[2019-08-28] MEDS: oxyCODONE ER 80 MG TAB.ER.12H PO SCH ×2 (09:22→20:30)
[2019-08-28] MEDS: AMIODARONE 200 MG TAB PO SCH ×2 (09:23→20:29)
[2019-08-28] MEDS: CLOPIDOGREL 75 MG TAB PO SCH (09:23)
[2019-08-28] MEDS: amLODIPine 5 MG TAB PO SCH (09:23)
[2019-08-28] MEDS: DULoxetine HCL 60 MG CAPSULE.DR PO SCH (09:23)
[2019-08-28] MEDS: LOSARTAN 25 MG TAB PO SCH (09:23)
[2019-08-28] MEDS: ATORVASTATIN 40 MG TAB PO SCH (09:23)
[2019-08-28] MEDS: ASPIRIN 325 MG TAB PO SCH (09:24)
[2019-08-28] MEDS: PANTOPRAZOLE 40 MG/10 ML VIAL IVP SCH (09:24)
[2019-08-28] MEDS: METOPROLOL TARTRATE 50 MG TAB PO SCH ×2 (09:24→20:29)
--- NOTE | 2019-08-28 10:09 | P.PN ---
Subjective Progress Note Date: 08/28/19 Principal diagnosis: Symptomatic multivessel coronary artery disease. Past medical history significant for coronary artery disease with history of stent placement to his right coronary artery in 2015, hypertension, hyperlipidemia, daily marijuana use, remote history of nicotine dependence quit smoking 25 years ago, chronic lower back pain, insulin-dependent diabetes mellitus type 2 and family history of early onset coronary artery disease with his dad being diagnosed in his early 50s. POD #5 triple coronary artery bypass grafting using the left internal mammary artery to left anterior descending coronary artery, the left radial artery from the aorta to the second obtuse marginal coronary artery, a reverse greater saphenous vein graft from the aorta to the posterior descending coronary artery. Endoscopic harvesting of the left radial artery, endoscopic harvesting of the left greater saphenous vein from the groin to just below the knee level, intraoperative transesophageal echocardiogram, epi-aortic scanning and graft flow measurements using the [employer] system. Postoperative acute blood loss anemia, an expected outcome secondary to cardiopulmonary bypass and hemodilution. Postoperative paroxysmal atrial fibrillation, an unexpected but the potential outcome of surgery. This morning the patient was seen in follow-up on 08/28/2019 at his bedside on the cardiac stepdown unit. Currently he is sitting up to the bedside chair, he is awake, alert and oriented 3 and is in no acute distress. He remains hemodynamically stable and is currently on no inotropic or pressor support. He denies any complaints of surgical type pain but is complaining of pain to his back which is chronic in nature. Denies any complaints of shortness of breath. Oxygen saturation are 95% on room air and he is achieving 1000 mL on his incentive spirometry. He ambulated in the cardiac stepdown unit hallway with minimal assistance this morning and tolerated well. A first postoperative shower was completed last night per the patient. Remote telemetry showing normal sinus rhythm heart rate 69 BPM. Laboratory results this morning show a WBC count 14.6, hemoglobin 7.2, platelets 208, BUN 27 and creatinine 1.13. Objective - Vital Signs Vital signs: Vital Signs Temp 97.8 F 08/28/19 03:51 Pulse 68 08/28/19 08:14 Resp 18 08/28/19 03:51 BP 121/71 08/28/19 03:51 Pulse Ox 92 L 08/28/19 03:51 Intake & Output 08/27/19 08/28/19 08/28/19 18:59 06:59 18:59 Intake Total 580 984 Output Total 300 600 Balance 280 384 Weight 87.4 kg Intake: Oral 580 984 Output: Urine 300 600 Other: Voiding Method Urinal # Voids 1 ABP, PAP, CO, CI - Last Documented Arterial Blood Pressure 152/64 Pulmonary Artery Pressure 33/16 Cardiac Output 5.4 Cardiac Index 2.7 - Exam This is a 64-year-old pleasant gentleman who is sitting up to the bedside chair on the cardiac stepdown unit. He is in no acute distress, he is awake, alert and oriented 3, he is hemodynamically and is on no inotropic or pressor support. Oxygen saturation are 95% on room air. - Constitutional General appearance: Present: cooperative, no acute distress, obese - EENT Eyes: Present: poor dentition, normal appearance. Absent: scleral icterus ENT: Present: hearing grossly normal - Neck Details: Neck is supple, no JVD, no lymphadenopathy. - Respiratory Details: Lungs sounds essentially clear throughout, diminished to his bilateral bases. No wheezes, rhonchi or crackles. Respirations are symmetrical and nonlabored. Oxygen saturation is 95% on room air. Achieving 1000 mL on his incentive spirometry. - Cardiovascular Details: Regular rhythm and rate. S1 and S2 present, negative for S3, gallop or murmur. Sternum is stable. Atrial epicardial pacemaker wires in place and grounded. Remote telemetry showing normal sinus rhythm heart rate 69 BPM. No edema present. Knee-high YOSSI hose and sequential compression devices in place to his bilateral lower extremities. Heart hugger is in place and he is demonstrating appropriate use. - Gastrointestinal Gastrointestinal Comment(s): Abdomen is soft, nontender and nondistended. Active bowel sounds present all 4 abdominal quadrants. No guarding or rigidity. No organomegaly appreciated. Tolerating oral intake. Passing flatus. - Genitourinary Genitourinary Comment(s): Voiding clear yusuf urine. - Integumentary Integumentary Comment(s): Skin is warm and dry. No clubbing or cyanosis is present. Midline sternal incision is clean, dry and approximated. No drainage or redness is present. Left arm radial harvest sites clean, dry and approximated. No drainage or redness is present. Left leg EVH site is clean, dry and approximated. No drainage or redness is present. - Neurologic Neurologic Comment(s): No focal neurological deficits. - Musculoskeletal Musculoskeletal: Present: gait normal, generalized weakness, strength equal bilaterally - Psychiatric Psychiatric: Present: A&O x's 3, appropriate affect, intact judgment & insight - Allied health notes Allied health notes reviewed: nursing - Labs CBC & Chem 7: 08/28/19 05:56 08/28/19 05:56 Labs: Abnormal Lab Results - Last 24 Hours (Table) 08/27/19 08/27/19 08/27/19 Range/Units 11:37 17:23 20:25 WBC (3.8-10.6) k/uL RBC (4.30-5.90) m/uL Hgb (13.0-17.5) gm/dL Hct (39.0-53.0) % RDW (11.5-15.5) % Neutrophils # (1.3-7.7) k/uL Monocytes # (0-1.0) k/uL Sodium (137-145) mmol/L BUN (9-20) mg/dL Glucose (74-99) mg/dL POC Glucose (mg/dL) 226 H 129 H 205 H (75-99) mg/dL Calcium (8.4-10.2) mg/dL 08/28/19 08/28/19 08/28/19 Range/Units 02:06 05:56 05:56 WBC 14.6 H (3.8-10.6) k/uL RBC 2.41 L (4.30-5.90) m/uL Hgb 7.2 L (13.0-17.5) gm/dL Hct 22.8 L (39.0-53.0) % RDW 16.8 H (11.5-15.5) % Neutrophils # 10.4 H (1.3-7.7) k/uL Monocytes # 1.5 H (0-1.0) k/uL Sodium 134 L (137-145) mmol/L BUN 27 H (9-20) mg/dL Glucose 151 H (74-99) mg/dL POC Glucose (mg/dL) 181 H (75-99) mg/dL Calcium 8.0 L (8.4-10.2) mg/dL 08/28/19 Range/Units 05:58 WBC (3.8-10.6) k/uL RBC (4.30-5.90) m/uL Hgb (13.0-17.5) gm/dL Hct (39.0-53.0) % RDW (11.5-15.5) % Neutrophils # (1.3-7.7) k/uL Monocytes # (0-1.0) k/uL Sodium (137-145) mmol/L BUN (9-20) mg/dL Glucose (74-99) mg/dL POC Glucose (mg/dL) 167 H (75-99) mg/dL Calcium (8.4-10.2) mg/dL - Imaging and Cardiology Chest x-ray: report reviewed, image reviewed Assessment and Plan Assessment: 1. Symptomatic multivessel coronary artery disease with history of stent placement to his right coronary artery in 2014, status post triple-vessel coronary artery bypass grafting surgery 2. Unstable angina 3. Ischemic cardiomyopathy with a preoperative ejection fraction of 40-45% 4. Hypertension 5. Dyslipidemia 6. 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 Remote history of tobacco dependence, quit 25 years ago 8. Family history of early onset coronary artery disease with his father diagnosed in his early 50s 9. Daily marijuana use 10. Postoperative acute blood loss anemia, an expected outcome of surgery due to cardiopulmonary bypass and hemodilution 11. Postoperative paroxysmal atrial fibrillation, an unexpected potential outcome of surgery Plan: 1. Continue aspirin, Plavix, statin and beta belkis. Increase metoprolol tartrate as tolerated. 2. Atrial epicardial pacemaker wires removed without incident. Bedrest for 1 hour post pacemaker wire removal. 3. Encourage use of his incentive spirometry 10 times every hour while awake. 4. Continue amiodarone to 200 mg by mouth twice a day for atrial fibrillation prophylaxis. 5. Medical management and diabetic management per primary care service. 6. Bronchodilators management per pulmonary medicine recommendations. 7. DVT and GI prophylaxis. 8. Continue to monitor daily labs and chest x-rays. Replace electrolytes per protocol. 9. Continue Norvasc 5 mg by mouth daily for radial artery spasm prophylaxis. Please do not discontinue without checking with cardiothoracic surgery service. 10. Increase activity as tolerated. PT/OT is following. Patient is doing well with ambulating with minimal assistance. 11. Pain control per current when necessary regimen. Continue Toradol. Continue patient's home dose of OxyContin. 12. Anticipate discharge home with [facility] within the next 24 hours. 13. Continue with postoperative cardiac care map instructions. 14. More recommendations to follow based on patient's clinical course. Time with Patient: Greater than 30
[2019-08-28 11:28] LABS: Glucose,Whole Blood 186 mg/dL (75-99)
--- NOTE | 2019-08-28 11:44 | P.PN ---
Subjective Progress Note Date: 08/28/19 This is a 64-year-old gentleman admitted to the hospital with unstable angina, underwent a cardiac catheterization by Dr. Hua and was found to have severe triple-vessel coronary artery disease. He underwent coronary artery bypass grafting surgery, seen on the cardiac unit this morning. He states overall he feels weak and tired, breathing is somewhat short. He did ambulate in the hallway this morning and tolerated it fairly well. Blood pressure 134/60 with a heart rate in the 60s, 90% on room air. White blood cell count 14.6, hemoglobin 7.2, platelet count 208. Sodium 134, potassium 3.9, BUN 27 and creatinine 1.1 Objective - Vital Signs Vital signs: Vital Signs Temp 97.7 F 08/28/19 08:00 Pulse 72 08/28/19 11:28 Resp 18 08/28/19 08:00 BP 134/66 08/28/19 08:00 Pulse Ox 90 L 08/28/19 08:00 Intake & Output 08/27/19 08/28/19 08/28/19 18:59 06:59 18:59 Intake Total 580 984 230 Output Total 300 600 Balance 280 384 230 Weight 87.4 kg Intake: Oral 580 984 230 Output: Urine 300 600 Other: Voiding Method Urinal # Voids 1 ABP, PAP, CO, CI - Last Documented Arterial Blood Pressure 152/64 Pulmonary Artery Pressure 33/16 Cardiac Output 5.4 Cardiac Index 2.7 - Exam GENERAL EXAM: Alert, pleasant 64-year-old gentleman, 90% on 2l, comfortable in no apparent distress. HEAD: Normocephalic. EYES: Normal reaction of pupils, equal size. NOSE: Clear with pink turbinates. THROAT: No erythema or exudates. NECK: No masses, no JVD. CHEST: Sternal dressing dry and intact. Her upper and place. LUNGS: Equal air entry with crackles in the bilateral posterior bases. CVS: S1 and S2 normal with no audible murmur, regular rhythm. ABDOMEN: No hepatosplenomegaly, normal bowel sounds, no guarding or rigidity. SPINE: No scoliosis or deformity SKIN: No rashes CENTRAL NERVOUS SYSTEM: No focal deficits, tone is normal in all 4 extremities. EXTREMITIES: There is no peripheral edema. No clubbing, no cyanosis. Peripheral pulses are intact - Labs CBC & Chem 7: 08/28/19 05:56 08/28/19 05:56 Labs: Abnormal Lab Results - Last 24 Hours (Table) 08/27/19 08/27/19 08/27/19 Range/Units 11:37 17:23 20:25 WBC (3.8-10.6) k/uL RBC (4.30-5.90) m/uL Hgb (13.0-17.5) gm/dL Hct (39.0-53.0) % RDW (11.5-15.5) % Neutrophils # (1.3-7.7) k/uL Monocytes # (0-1.0) k/uL Sodium (137-145) mmol/L BUN (9-20) mg/dL Glucose (74-99) mg/dL POC Glucose (mg/dL) 226 H 129 H 205 H (75-99) mg/dL Calcium (8.4-10.2) mg/dL 08/28/19 08/28/19 08/28/19 Range/Units 02:06 05:56 05:56 WBC 14.6 H (3.8-10.6) k/uL RBC 2.41 L (4.30-5.90) m/uL Hgb 7.2 L (13.0-17.5) gm/dL Hct 22.8 L (39.0-53.0) % RDW 16.8 H (11.5-15.5) % Neutrophils # 10.4 H (1.3-7.7) k/uL Monocytes # 1.5 H (0-1.0) k/uL Sodium 134 L (137-145) mmol/L BUN 27 H (9-20) mg/dL Glucose 151 H (74-99) mg/dL POC Glucose (mg/dL) 181 H (75-99) mg/dL Calcium 8.0 L (8.4-10.2) mg/dL 08/28/19 08/28/19 Range/Units 05:58 11:10 WBC (3.8-10.6) k/uL RBC (4.30-5.90) m/uL Hgb (13.0-17.5) gm/dL Hct (39.0-53.0) % RDW (11.5-15.5) % Neutrophils # (1.3-7.7) k/uL Monocytes # (0-1.0) k/uL Sodium (137-145) mmol/L BUN (9-20) mg/dL Glucose (74-99) mg/dL POC Glucose (mg/dL) 167 H 186 H (75-99) mg/dL Calcium (8.4-10.2) mg/dL Assessment and Plan Plan: Assessment: 1. Symptomatic multivessel coronary artery disease with history of stent placement to his right coronary artery in 2014, status post triple-vessel coronary artery bypass grafting surgery 2. Unstable angina 3. Ischemic cardiomyopathy with a preoperative ejection fraction of 40-45% 4. Hypertension 5. Dyslipidemia 6. 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 Remote history of tobacco dependence, quit 25 years ago 8. Family history of early onset coronary artery disease with his father diagnosed in his early 50s 9. Daily marijuana use #10 postoperative anemia Plan Patient has been encouraged regarding the use of his incentive spirometer, he is reaching approximately 1000 on it today. We will continue with his current medications. Anticipating discharge with [facility] in the next 24-48 hours DNP note has been reviewed, I agree with a documented findings and plan of care. Patient was seen and examined.
--- NOTE | 2019-08-28 14:04 | P.PN ---
Subjective Progress Note Date: 08/28/19 Principal diagnosis: Coronary artery disease status post coronary artery bypass grafting, postoperative day #3 The patient is seen today 08/28/2019 in follow-up in the intensive care unit. This is postoperative day #5 of coronary artery revascularization. He is currently sitting up in a chair at the bedside. Awake and alert in no acute distress. He is now maintaining good O2 saturations in the 90s on room air. Chest x-ray reveals rounded density in the left heart border possible residual subcutaneous emphysema. Improved right basilar densities/atelectasis. He does need increased encouragement regarding the use of the incentive spirometer. White count 14.6. Hemoglobin 7.2. Sodium 134. Potassium 3.9. Creatinine 1.13. Objective - Vital Signs Vital signs: Vital Signs Temp 97.7 F 08/28/19 08:00 Pulse 72 08/28/19 11:28 Resp 18 08/28/19 08:00 BP 134/66 08/28/19 08:00 Pulse Ox 90 L 08/28/19 08:00 Intake & Output 08/27/19 08/28/19 08/28/19 18:59 06:59 18:59 Intake Total 802 984 230 Output Total 300 600 600 Balance 502 384 -370 Weight 87.4 kg Intake: Oral 802 984 230 Output: Urine 300 600 600 Other: Voiding Method Urinal # Voids 1 ABP, PAP, CO, CI - Last Documented Arterial Blood Pressure 152/64 Pulmonary Artery Pressure 33/16 Cardiac Output 5.4 Cardiac Index 2.7 - Exam GENERAL EXAM: Alert, pleasant 64-year-old gentleman, on room air, comfortable in no apparent distress. HEAD: Normocephalic. EYES: Normal reaction of pupils, equal size. NOSE: Clear with pink turbinates. THROAT: No erythema or exudates. NECK: No masses, no JVD. CHEST: Sternal dressing dry and intact. Heart Hugger in place. LUNGS: Equal air entry with crackles in the bilateral posterior bases. CVS: S1 and S2 normal with no audible murmur, regular rhythm. ABDOMEN: No hepatosplenomegaly, normal bowel sounds, no guarding or rigidity. SPINE: No scoliosis or deformity SKIN: No rashes CENTRAL NERVOUS SYSTEM: No focal deficits, tone is normal in all 4 extremities. EXTREMITIES: There is no peripheral edema. No clubbing, no cyanosis. Peripheral pulses are intact. - Labs CBC & Chem 7: 08/28/19 05:56 08/28/19 05:56 Labs: Abnormal Lab Results - Last 24 Hours (Table) 08/27/19 08/27/19 08/28/19 Range/Units 17:23 20:25 02:06 WBC (3.8-10.6) k/uL RBC (4.30-5.90) m/uL Hgb (13.0-17.5) gm/dL Hct (39.0-53.0) % RDW (11.5-15.5) % Neutrophils # (1.3-7.7) k/uL Monocytes # (0-1.0) k/uL Sodium (137-145) mmol/L BUN (9-20) mg/dL Glucose (74-99) mg/dL POC Glucose (mg/dL) 129 H 205 H 181 H (75-99) mg/dL Calcium (8.4-10.2) mg/dL 08/28/19 08/28/19 08/28/19 Range/Units 05:56 05:56 05:58 WBC 14.6 H (3.8-10.6) k/uL RBC 2.41 L (4.30-5.90) m/uL Hgb 7.2 L (13.0-17.5) gm/dL Hct 22.8 L (39.0-53.0) % RDW 16.8 H (11.5-15.5) % Neutrophils # 10.4 H (1.3-7.7) k/uL Monocytes # 1.5 H (0-1.0) k/uL Sodium 134 L (137-145) mmol/L BUN 27 H (9-20) mg/dL Glucose 151 H (74-99) mg/dL POC Glucose (mg/dL) 167 H (75-99) mg/dL Calcium 8.0 L (8.4-10.2) mg/dL 08/28/19 Range/Units 11:10 WBC (3.8-10.6) k/uL RBC (4.30-5.90) m/uL Hgb (13.0-17.5) gm/dL Hct (39.0-53.0) % RDW (11.5-15.5) % Neutrophils # (1.3-7.7) k/uL Monocytes # (0-1.0) k/uL Sodium (137-145) mmol/L BUN (9-20) mg/dL Glucose (74-99) mg/dL POC Glucose (mg/dL) 186 H (75-99) mg/dL Calcium (8.4-10.2) mg/dL Assessment and Plan Assessment: 1 Coronary artery disease status post coronary artery bypass grafting 3. 2 History of coronary artery disease with previous stent placement 3 Diabetes mellitus 4 Hypertension 5 Hyperlipidemia 6 Degenerative joint disease 7 Chronic back pain 8 Previous history of tobacco use, daily marijuana use Plan: The patient was seen and evaluated by Dr. Hector Chest x-ray and labs reviewed Again encouraged the increased use of the incentive spirometer and cough and deep breathing Increase his activity as tolerated Probable discharge in the a.m. We'll continue to follow and make further recommendations based on his clinical status I, the cosigning physician, performed a history & physical examination of the patient. Lungs sounds with crackles in the bilateral posterior bases. Maintaining good O2 saturations in the 90s on room air. I discussed the assessment and plan of care with my nurse practitioner, Mervat Graf. I attest to the above note as dictated by her.
--- NOTE | 2019-08-28 16:38 | PN ---
PROGRESS NOTE DATE OF SERVICE: 08/28/2019 This 64-year-old gentleman who was admitted with CAD, CABG is being closely monitored. The p.o. intake appears to be improving at this time. The patient's blood sugar is also better controlled. No chest pain. No palpitations. No fever. PHYSICAL EXAMINATION: Alert and oriented x3. Pulse is 71, blood pressure 130/60, respirations 16, temp is normal, pulse ox 94% on room air. HEENT: Conjunctivae normal. NECK: No JVD. CARDIOVASCULAR: S1, S2 muffled. RESPIRATORY: Breath sounds diminished in the bases. Few scattered rhonchi. ABDOMEN is soft and nontender. NERVOUS SYSTEM: No focal deficits. LAB STUDIES: WBC 14.3, hemoglobin 7.2, sodium 134. ASSESSMENT: 1. Coronary artery disease status post coronary artery bypass grafting. 2. Diabetes type 2 on insulin. 3. Atrial fibrillation paroxysmal. 4. Increased WBC. 5. Anemia, normocytic as expected. 6. Hypokalemia. 7. Hypertension. 8. Hyperlipidemia. 9. Nausea and vomiting possibly acute gastritis, improved. 10.History of chronic back pain, degenerative joint disease. 11.History of chronic pain syndrome. 12.History of coronary artery disease/stent. 13.Remote history of nicotine dependence. 14.History of THC. 15.FULL CODE. RECOMMENDATIONS AND DISCUSSION: Recommend to continue current medications, continue monitoring, and symptomatic treatment. Otherwise, at this time, I recommend continue with current dose of insulin. Monitor blood sugars closely. Incentive spirometry. DVT prophylaxis. Further recommendations to follow. MMODL / IJN: [id number] /
[2019-08-28 17:30] LABS: Glucose,Whole Blood 210 mg/dL (75-99)
[2019-08-28 20:17] LABS: Glucose,Whole Blood 162 mg/dL (75-99)
[2019-08-28] MEDS: SENNOSIDES-DOCUSATE SODIUM 1 EACH TAB PO SCH (20:30)
[2019-08-28] MEDS: INSULIN DETEMIR (LEVEMIR) 100 UNIT/ML SYR SQ SCH (20:32)
[2019-08-29] MEDS: INSULIN ASPART (NovoLOG) 100 UNIT/ML VIAL SQ SCH ×4 (06:15→21:22)
[2019-08-29 06:16] LABS: Glucose,Whole Blood 51 mg/dL (75-99)
[2019-08-29 06:17] LABS: Anisocytosis Slight; Basophils % (A) 0 %; Eosinophils # (A) 0.2 k/uL (0-0.7); Eosinophils % (A) 1 %; HCT 24.4 % (39.0-53.0); HGB 8.1 gm/dL (13.0-17.5); Hypochromasia Slight; Lymphocytes # (A) 1.7 k/uL (1.0-4.8); Lymphocytes % (A) 9 %; MCH 31.6 pg (25.0-35.0); MCV 95.7 fL (80.0-100.0); Macrocytosis Slight; Mean Platelet Volume 7.5; Monocytes # (A) 1.9 k/uL (0-1.0); Monocytes % (A) 10 %; Neutrophils # (A) 15.3 k/uL (1.3-7.7); Neutrophils % (A) 79 %; Platelet Count 335 k/uL (150-450); Poikilocytosis Slight; RBC 2.55 m/uL (4.30-5.90); WBC 19.4 k/uL (3.8-10.6)
[2019-08-29 06:29] LABS: ALT 78 U/L (4-49); AST 40 U/L (17-59); African American GFR (CKD) >90 (>60 ml/min/1.73 sqM); Albumin 3.2 g/dL (3.5-5.0); Alkaline Phosphatase 110 U/L (38-126); Anion Gap 9 mmol/L; Blood Urea Nitrogen 17 mg/dL (9-20); Calcium 8.6 mg/dL (8.4-10.2); Carbon Dioxide 24 mmol/L (22-30); Chloride 105 mmol/L (98-107); Non-African American GFR(CKD) >90 (>60 ml/min/1.73 sqM); Potassium 3.5 mmol/L (3.5-5.1); Sodium 138 mmol/L (137-145); Total Bilirubin 0.7 mg/dL (0.2-1.3); Total Protein 5.8 g/dL (6.3-8.2)
[2019-08-29 06:34] LABS: Glucose,Whole Blood 72 mg/dL (75-99)
[2019-08-29] MEDS: PANTOPRAZOLE 40 MG TABLET PO SCH (06:37)
[2019-08-29 06:44] LABS: Glucose 44 mg/dL (74-99)
[2019-08-29 06:52] LABS: Glucose,Whole Blood 93 mg/dL (75-99)
--- NOTE | 2019-08-29 07:31 | XR ---
EXAMINATION TYPE: XR chest 1V portable DATE OF EXAM: 08/29/2019 COMPARISON: 08/28/2019 HISTORY: Post cardiac surgery TECHNIQUE: Single frontal view of the chest is obtained. FINDINGS: The heart is enlarged and is postoperative change. Pleural thickening tiny effusion suspec flakita no overt failure. Rounded density overlying the left heart border stable.. Arthropathy shoulders. Density overlying the soft tissues left neck is Likely superficial to the patient. IMPRESSION: 1. Cardiomegaly. 2. Round density overlying the left heart border is indeterminate stable from prior exam. May represe nt a small less than 5% loculated residual pneumothorax.
[2019-08-29] MEDS: IPRATROPIUM-ALBUTEROL 3 ML NEB INHALATION SCH ×4 (07:56→20:45)
[2019-08-29] MEDS: AMIODARONE 200 MG TAB PO SCH ×2 (09:05→21:21)
[2019-08-29] MEDS: ATORVASTATIN 40 MG TAB PO SCH (09:05)
[2019-08-29] MEDS: METOPROLOL TARTRATE 50 MG TAB PO SCH ×2 (09:05→21:21)
[2019-08-29] MEDS: CLOPIDOGREL 75 MG TAB PO SCH (09:05)
[2019-08-29] MEDS: amLODIPine 5 MG TAB PO SCH (09:05)
[2019-08-29] MEDS: ASPIRIN 325 MG TAB PO SCH (09:05)
[2019-08-29] MEDS: DULoxetine HCL 60 MG CAPSULE.DR PO SCH (09:05)
[2019-08-29] MEDS: LOSARTAN 25 MG TAB PO SCH (09:05)
[2019-08-29] MEDS: oxyCODONE ER 80 MG TAB.ER.12H PO SCH ×2 (09:06→21:22)
[2019-08-29] MEDS: HEPARIN SODIUM,PORCINE 5,000 UNIT/ML 1 ML VIAL SQ SCH ×3 (09:06→23:23)
[2019-08-29] MEDS: POTASSIUM CHLORIDE ER 20 MEQ TAB.ER PO SCH ×2 (09:09→11:19)
[2019-08-29] MEDS ORDERED: BISACODYL 10 MG SUPP RECTAL STA (09:20)
--- NOTE | 2019-08-29 09:25 | P.PN ---
Subjective Progress Note Date: 08/29/19 Principal diagnosis: Symptomatic multivessel coronary artery disease. Past medical history significant for coronary artery disease with history of stent placement to his right coronary artery in 2015, hypertension, hyperlipidemia, daily marijuana use, remote history of nicotine dependence quit smoking 25 years ago, chronic lower back pain, insulin-dependent diabetes mellitus type 2 and family history of early onset coronary artery disease with his dad being diagnosed in his early 50s. POD #6 triple coronary artery bypass grafting using the left internal mammary artery to left anterior descending coronary artery, the left radial artery from the aorta to the second obtuse marginal coronary artery, a reverse greater saphenous vein graft from the aorta to the posterior descending coronary artery. Endoscopic harvesting of the left radial artery, endoscopic harvesting of the left greater saphenous vein from the groin to just below the knee level, intraoperative transesophageal echocardiogram, epi-aortic scanning and graft flow measurements using the [employer] system. Postoperative acute blood loss anemia, an expected outcome secondary to cardiopulmonary bypass and hemodilution. Postoperative paroxysmal atrial fibrillation, an unexpected but the potential outcome of surgery. The patient was seen in follow-up today 08/29/2019 at his bedside on the cardiac stepdown unit. Currently he is resting comfortably in bed and is in no acute distress. He is awake, alert and oriented 3, remains hemodynamically stable and is currently on no inotropic or pressor support. Denies any complaints of surgical type pain and continues to complain of back pain which is chronic in nature. Denies any complaints of shortness of breath and is currently on room air with oxygen saturations 97%. He is achieving 1000 mL on his incentive spirometry with encouragement. Scant serosanguineous drainage noted from his distal sternal incision, exofin dressing was removed for further evaluation of the sternal incision. The sternal incision is approximated with some ecchymosis to the distal incision and scant serosanguineous drainage. The incision was cleaned with a ChloraPrep and a folded 4 x 4 gauze to cover. He ambulated in the cardiac stepdown unit hallway this morning with minimal assistance and tolerated it well. The patient's night nurse reports that he did have an episode of hypoglycemia which was treated accordingly. Bedside telemetry showing normal sinus rhythm heart rate 65 with no further episodes of atrial fibrillation. Labs this morning show a WBC count trending up 19.4, hemoglobin 8.1, platelets 335, potassium 3.5, BUN 17, creatinine 0.67 and C-reactive protein 85.7. He remains afebrile last 24 hours. Objective - Vital Signs Vital signs: Vital Signs Temp 97.7 F 08/29/19 08:00 Pulse 68 08/29/19 08:06 Resp 16 08/29/19 08:00 BP 143/67 08/29/19 08:00 Pulse Ox 92 L 08/29/19 08:00 Intake & Output 08/28/19 08/29/19 08/29/19 18:59 06:59 18:59 Intake Total 230 Output Total 1200 725 450 Balance -970 -725 -450 Weight 86.5 kg Intake: Oral 230 Output: Urine 1200 725 450 Other: Voiding Method Urinal # Voids 1 ABP, PAP, CO, CI - Last Documented Arterial Blood Pressure 152/64 Pulmonary Artery Pressure 33/16 Cardiac Output 5.4 Cardiac Index 2.7 - Exam This is a 64-year-old pleasant gentleman who is lying comfortably in bed on the cardiac stepdown unit. He is in no acute distress, he is awake, alert and oriented 3, he is hemodynamically and is on no inotropic or pressor support. Oxygen saturation are 97% on room air. - Constitutional General appearance: Present: cooperative, no acute distress, obese - EENT Eyes: Present: PERRLA, poor dentition, normal appearance. Absent: scleral icterus ENT: Present: hearing grossly normal. Absent: thrush - Neck Details: Neck is supple, no JVD, no lymphadenopathy. - Respiratory Details: Lung sounds are essentially clear throughout, diminished to his bilateral bases. No wheezes, rhonchi or crackles. Respirations are symmetrical and nonlabored. Oxygen saturation 97% on room air. Achieving 1000 mL on his incentive spirometry with much encouragement. - Cardiovascular Details: Regular rhythm and rate. S1 and S2 present, negative for S3, gallop or murmur. Sternum is stable. Heart hugger is in place and he needs much encouragement with use. Knee-high YOSSI hose and sequential compression devices in place to his bilateral lower extremities. No edema present. - Gastrointestinal Gastrointestinal Comment(s): Abdomen soft, nontender and nondistended. Active bowel sounds present all 4 abdominal quadrants. No guarding or rigidity. No organomegaly appreciated. Tolerating oral intake. - Genitourinary Genitourinary Comment(s): Voiding clear yusuf urine. - Integumentary Integumentary Comment(s): Skin is warm and dry. No clubbing or cyanosis is present. Sternal incision is clean, and approximated with some ecchymosis to his distal sternal incision and scant serosanguineous drainage. Exofin dressing has been removed, and a folded 4 x [address], clean and dry. Left arm radial artery harvest sites clean, dry and approximated. No drainage or redness is present. Left leg EVH site is clean, dry and approximated. No drainage or redness is present. - Neurologic Neurologic: Present: CNII-XII intact - Musculoskeletal Musculoskeletal: Present: gait normal, generalized weakness, strength equal bilaterally - Psychiatric Psychiatric: Present: A&O x's 3, appropriate affect, intact judgment & insight - Allied health notes Allied health notes reviewed: nursing - Labs CBC & Chem 7: 08/29/19 05:50 08/29/19 05:50 Labs: Abnormal Lab Results - Last 24 Hours (Table) 08/28/19 08/28/19 08/28/19 Range/Units 11:10 17:18 20:16 WBC (3.8-10.6) k/uL RBC (4.30-5.90) m/uL Hgb (13.0-17.5) gm/dL Hct (39.0-53.0) % RDW (11.5-15.5) % Neutrophils # (1.3-7.7) k/uL Monocytes # (0-1.0) k/uL Glucose (74-99) mg/dL POC Glucose (mg/dL) 186 H 210 H 162 H (75-99) mg/dL ALT (4-49) U/L C-Reactive Protein (<10.0) mg/L Total Protein (6.3-8.2) g/dL Albumin (3.5-5.0) g/dL 08/29/19 08/29/19 08/29/19 Range/Units 05:50 05:50 05:50 WBC 19.4 H (3.8-10.6) k/uL RBC 2.55 L (4.30-5.90) m/uL Hgb 8.1 L (13.0-17.5) gm/dL Hct 24.4 L (39.0-53.0) % RDW 19.0 H (11.5-15.5) % Neutrophils # 15.3 H (1.3-7.7) k/uL Monocytes # 1.9 H (0-1.0) k/uL Glucose 44 L* (74-99) mg/dL POC Glucose (mg/dL) (75-99) mg/dL ALT 78 H (4-49) U/L C-Reactive Protein 85.7 H (<10.0) mg/L Total Protein 5.8 L (6.3-8.2) g/dL Albumin 3.2 L (3.5-5.0) g/dL 08/29/19 08/29/19 Range/Units 06:12 06:32 WBC (3.8-10.6) k/uL RBC (4.30-5.90) m/uL Hgb (13.0-17.5) gm/dL Hct (39.0-53.0) % RDW (11.5-15.5) % Neutrophils # (1.3-7.7) k/uL Monocytes # (0-1.0) k/uL Glucose (74-99) mg/dL POC Glucose (mg/dL) 51 L 72 L (75-99) mg/dL ALT (4-49) U/L C-Reactive Protein (<10.0) mg/L Total Protein (6.3-8.2) g/dL Albumin (3.5-5.0) g/dL - Imaging and Cardiology Chest x-ray: report reviewed, image reviewed Assessment and Plan Assessment: 1. Symptomatic multivessel coronary artery disease with history of stent placement to his right coronary artery in 2014, status post triple-vessel coronary artery bypass grafting surgery 2. Unstable angina 3. Ischemic cardiomyopathy with a preoperative ejection fraction of 40-45% 4. Hypertension 5. Dyslipidemia 6. 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 Remote history of tobacco dependence, quit 25 years ago 8. Family history of early onset coronary artery disease with his father diagnosed in his early 50s 9. Daily marijuana use 10. Postoperative acute blood loss anemia, an expected outcome of surgery due to cardiopulmonary bypass and hemodilution 11. Postoperative paroxysmal atrial fibrillation, an unexpected potential outcome of surgery Plan: 1. Continue aspirin, Plavix, statin and beta belkis. Increase metoprolol tartrate as tolerated. 2. Reinforce the importance of the heart hugger and encourage use of his heart hugger. Keep a folded 4 x 4 gauze to his distal sternal incision. 3. Encourage use of his incentive spirometry 10 times every hour while awake. 4. Continue amiodarone to 200 mg by mouth twice a day for atrial fibrillation prophylaxis. 5. Medical management and diabetic management per primary care service. 6. Bronchodilators management per pulmonary medicine recommendations. 7. DVT and GI prophylaxis. 8. Continue to monitor daily labs and chest x-rays. Replace electrolytes per protocol. 9. Continue Norvasc 5 mg by mouth daily for radial artery spasm prophylaxis. Please do not discontinue without checking with cardiothoracic surgery service. 10. Increase activity as tolerated. PT/OT is following. The patient is doing well with ambulating with minimal assistance. 11. Pain control per current when necessary regimen. Continue patient's home dose of OxyContin. 12. Anticipate discharge home with [facility] within the next 24 hours. The patient will need glucose meter strips for home as patient reports that he is out of glucose meter strips. 13. Continue with postoperative cardiac care map instructions. Continue daily showers. 14. We will obtain a urinalysis with reflex culture as his WBCs today are 19.4. We will also obtain a bladder scan with post void residual. 15. Dulcolax suppository 1 now, the patient has not had a bowel movement since surgery. 16. More recommendations to follow based on patient's clinical course. Time with Patient: Greater than 30
[2019-08-29 10:52] LABS: Appearance,Urine Clear (Clear); Bacteria,Urine Occasional /hpf; Bilirubin,Urine Negative (Negative); Blood,Urine Trace (Negative); Color,Urine Light Yellow; Glucose,Urine (UA) Negative (Negative); Ketones,Urine Negative (Negative); Leukocyte Esterase,Urine Moderate (Negative); Mucus,Urine Rare /hpf; Nitrite,Urine Negative (Negative); PH, Urine 6.5 (5.0-8.0); Protein,Urine Trace (Negative); RBC,Urine 7 /hpf (0-5); Squamous Epithelial Cell,Urine <1 /hpf (0-4); Urobilinogen,Urine <2.0 mg/dL (<2.0); WBC,Urine 12 /hpf (0-5)
--- NOTE | 2019-08-29 11:52 | P.PN ---
Subjective Progress Note Date: 08/29/19 This is a 64-year-old gentleman admitted to the hospital with unstable angina, underwent a cardiac catheterization by Dr. Hua and was found to have severe triple-vessel coronary artery disease. He underwent coronary artery bypass grafting surgery, seen on the cardiac unit this morning. He states overall he feels weak and tired, breathing is somewhat short. He did ambulate in the hallway this morning and tolerated it fairly well. Blood pressure 134/60 with a heart rate in the 60s, 90% on room air. White blood cell count 14.6, hemoglobin 7.2, platelet count 208. Sodium 134, potassium 3.9, BUN 27 and creatinine 1.1. 08/29/2019 Patient seen and examined this morning, hemodynamically stable. Blood pressure 142/68, heart rate in the 60s, afebrile. 92% on room air. White blood cell co unt 19.4, hemoglobin 8.1, platelet count 335. Sodium 138, potassium 3.5, BUN 17, creatinine 0.6. Objective - Vital Signs Vital signs: Vital Signs Temp 97.7 F 08/29/19 08:00 Pulse 69 08/29/19 11:35 Resp 16 08/29/19 08:00 BP 143/67 08/29/19 08:00 Pulse Ox 92 L 08/29/19 08:00 Intake & Output 08/28/19 08/29/19 08/29/19 18:59 06:59 18:59 Intake Total 230 Output Total 1200 725 450 Balance -970 -725 -450 Weight 86.5 kg Intake: Oral 230 Output: Urine 1200 725 450 Other: Voiding Method Urinal Urinal # Voids 1 ABP, PAP, CO, CI - Last Documented Arterial Blood Pressure 152/64 Pulmonary Artery Pressure 33/16 Cardiac Output 5.4 Cardiac Index 2.7 - Exam GENERAL EXAM: Alert, pleasant 64-year-old gentleman, 90% on 2l, comfortable in no apparent distress. HEAD: Normocephalic. EYES: Normal reaction of pupils, equal size. NOSE: Clear with pink turbinates. THROAT: No erythema or exudates. NECK: No masses, no JVD. CHEST: Sternal dressing dry and intact. Her upper and place. LUNGS: Equal air entry with crackles in the bilateral posterior bases. CVS: S1 and S2 normal with no audible murmur, regular rhythm. ABDOMEN: No hepatosplenomegaly, normal bowel sounds, no guarding or rigidity. SPINE: No scoliosis or deformity SKIN: No rashes CENTRAL NERVOUS SYSTEM: No focal deficits, tone is normal in all 4 extremities. EXTREMITIES: There is no peripheral edema. No clubbing, no cyanosis. Peripheral pulses are intact - Labs CBC & Chem 7: 08/29/19 05:50 08/29/19 05:50 Labs: Abnormal Lab Results - Last 24 Hours (Table) 08/28/19 08/28/19 08/29/19 Range/Units 17:18 20:16 05:50 WBC 19.4 H (3.8-10.6) k/uL RBC 2.55 L (4.30-5.90) m/uL Hgb 8.1 L (13.0-17.5) gm/dL Hct 24.4 L (39.0-53.0) % RDW 19.0 H (11.5-15.5) % Neutrophils # 15.3 H (1.3-7.7) k/uL Monocytes # 1.9 H (0-1.0) k/uL Glucose (74-99) mg/dL POC Glucose (mg/dL) 210 H 162 H (75-99) mg/dL ALT (4-49) U/L C-Reactive Protein (<10.0) mg/L Total Protein (6.3-8.2) g/dL Albumin (3.5-5.0) g/dL Urine Protein (Negative) Urine Blood (Negative) Ur Leukocyte Esterase (Negative) Urine RBC (0-5) /hpf Urine WBC (0-5) /hpf Urine Bacteria (None) /hpf Urine Mucus (None) /hpf 08/29/19 08/29/19 08/29/19 Range/Units 05:50 05:50 06:12 WBC (3.8-10.6) k/uL RBC (4.30-5.90) m/uL Hgb (13.0-17.5) gm/dL Hct (39.0-53.0) % RDW (11.5-15.5) % Neutrophils # (1.3-7.7) k/uL Monocytes # (0-1.0) k/uL Glucose 44 L* (74-99) mg/dL POC Glucose (mg/dL) 51 L (75-99) mg/dL ALT 78 H (4-49) U/L C-Reactive Protein 85.7 H (<10.0) mg/L Total Protein 5.8 L (6.3-8.2) g/dL Albumin 3.2 L (3.5-5.0) g/dL Urine Protein (Negative) Urine Blood (Negative) Ur Leukocyte Esterase (Negative) Urine RBC (0-5) /hpf Urine WBC (0-5) /hpf Urine Bacteria (None) /hpf Urine Mucus (None) /hpf 08/29/19 08/29/19 Range/Units 06:32 10:28 WBC (3.8-10.6) k/uL RBC (4.30-5.90) m/uL Hgb (13.0-17.5) gm/dL Hct (39.0-53.0) % RDW (11.5-15.5) % Neutrophils # (1.3-7.7) k/uL Monocytes # (0-1.0) k/uL Glucose (74-99) mg/dL POC Glucose (mg/dL) 72 L (75-99) mg/dL ALT (4-49) U/L C-Reactive Protein (<10.0) mg/L Total Protein (6.3-8.2) g/dL Albumin (3.5-5.0) g/dL Urine Protein Trace H (Negative) Urine Blood Trace H (Negative) Ur Leukocyte Esterase Moderate H (Negative) Urine RBC 7 H (0-5) /hpf Urine WBC 12 H (0-5) /hpf Urine Bacteria Occasional H (None) /hpf Urine Mucus Rare H (None) /hpf Assessment and Plan Plan: Assessment: 1. Symptomatic multivessel coronary artery disease with history of stent placement to his right coronary artery in 2014, status post triple-vessel coronary artery bypass grafting surgery 2. Unstable angina 3. Ischemic cardiomyopathy with a preoperative ejection fraction of 40-45% 4. Hypertension 5. Dyslipidemia 6. 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 Remote history of tobacco dependence, quit 25 years ago 8. Family history of early onset coronary artery disease with his father diagnosed in his early 50s 9. Daily marijuana use #10 postoperative anemia Plan From cardiology's perspective, we'll recommend the patient continue his current medications. Continue the use of his incentive spirometry. Planning for possible discharge home within the next 24 hours with [facility]. DNP note has been reviewed, I agree with a documented findings and plan of care. Patient was seen and examined.
[2019-08-29 12:37] LABS: Glucose,Whole Blood 195 mg/dL (75-99)
--- NOTE | 2019-08-29 12:57 | P.PN ---
Subjective Progress Note Date: 08/29/19 Principal diagnosis: Coronary artery disease status post coronary artery bypass grafting, postoperative day 4 On 08/29/2019 patient seen in follow-up on selective care unit. He is resting comfortably in the chair, in no acute distress, room air pulse ox 96%, hemodynamically patient is stable, no fever or chills, hemodynamically stable, in sinus mechanism with a rate of 69 BPM. All of his chest tubes, and epicardial wires have been discontinued, Elliott catheter has been discontinued, patient is voiding. Lung sounds are clear, diminished at the bases, today's chest x-ray shows cardiomegaly, round density overlying the left heart border that could possibly represent small less than 5% likelihood residual pneumothorax. No shortness of breath. His pain is fairly well controlled. Objective - Vital Signs Vital signs: Vital Signs Temp 97.8 F 08/29/19 12:00 Pulse 60 08/29/19 12:00 Resp 16 08/29/19 12:00 BP 140/67 08/29/19 12:00 Pulse Ox 96 08/29/19 12:00 Intake & Output 08/28/19 08/29/19 08/29/19 18:59 06:59 18:59 Intake Total 230 Output Total 1200 725 450 Balance -970 -725 -450 Weight 86.5 kg Intake: Oral 230 Output: Urine 1200 725 450 Other: Voiding Method Urinal Urinal # Voids 1 ABP, PAP, CO, CI - Last Documented Arterial Blood Pressure 152/64 Pulmonary Artery Pressure 33/16 Cardiac Output 5.4 Cardiac Index 2.7 - Exam GENERAL EXAM: Alert, very pleasant, 64-year-old male on room air, with pulse ox of 96% comfortable in no apparent distress. HEAD: Normocephalic/atraumatic. EYES: Normal reaction of pupils, equal size. Conjunctiva pink, sclera white. NOSE: Clear with pink turbinates. THROAT: No erythema or exudates. NECK: No masses, no JVD, no thyroid enlargement, no adenopathy. CHEST: No chest wall deformity. Symmetrical expansion. Midsternal incision well approximated, with some limited drainage at the distal and, chest tube sit es clean dry and intact LUNGS: Equal air entry with no crackles, wheeze, rhonchi or dullness. CVS: Regular rate and rhythm, normal S1 and S2, no gallops, no murmurs, no rubs ABDOMEN: Soft, nontender. No hepatosplenomegaly, normal bowel sounds, no guarding or rigidity. EXTREMITIES: No clubbing, no edema, no cyanosis, 2+ pulses and upper and lower extremities. MUSCULOSKELETAL: Muscle strength and tone normal. SPINE: No scoliosis or deformity SKIN: No rashes CENTRAL NERVOUS SYSTEM: Alert and oriented -3. No focal deficits, tone is normal in all 4 extremities. PSYCHIATRIC: Alert and oriented -3. Appropriate affect. Intact judgment and insight. - Labs CBC & Chem 7: 08/29/19 05:50 08/29/19 05:50 Labs: Abnormal Lab Results - Last 24 Hours (Table) 08/28/19 08/28/19 08/29/19 Range/Units 17:18 20:16 05:50 WBC 19.4 H (3.8-10.6) k/uL RBC 2.55 L (4.30-5.90) m/uL Hgb 8.1 L (13.0-17.5) gm/dL Hct 24.4 L (39.0-53.0) % RDW 19.0 H (11.5-15.5) % Neutrophils # 15.3 H (1.3-7.7) k/uL Monocytes # 1.9 H (0-1.0) k/uL Glucose (74-99) mg/dL POC Glucose (mg/dL) 210 H 162 H (75-99) mg/dL ALT (4-49) U/L C-Reactive Protein (<10.0) mg/L Total Protein (6.3-8.2) g/dL Albumin (3.5-5.0) g/dL Urine Protein (Negative) Urine Blood (Negative) Ur Leukocyte Esterase (Negative) Urine RBC (0-5) /hpf Urine WBC (0-5) /hpf Urine Bacteria (None) /hpf Urine Mucus (None) /hpf 08/29/19 08/29/19 08/29/19 Range/Units 05:50 05:50 06:12 WBC (3.8-10.6) k/uL RBC (4.30-5.90) m/uL Hgb (13.0-17.5) gm/dL Hct (39.0-53.0) % RDW (11.5-15.5) % Neutrophils # (1.3-7.7) k/uL Monocytes # (0-1.0) k/uL Glucose 44 L* (74-99) mg/dL POC Glucose (mg/dL) 51 L (75-99) mg/dL ALT 78 H (4-49) U/L C-Reactive Protein 85.7 H (<10.0) mg/L Total Protein 5.8 L (6.3-8.2) g/dL Albumin 3.2 L (3.5-5.0) g/dL Urine Protein (Negative) Urine Blood (Negative) Ur Leukocyte Esterase (Negative) Urine RBC (0-5) /hpf Urine WBC (0-5) /hpf Urine Bacteria (None) /hpf Urine Mucus (None) /hpf 08/29/19 08/29/19 08/29/19 Range/Units 06:32 10:28 12:13 WBC (3.8-10.6) k/uL RBC (4.30-5.90) m/uL Hgb (13.0-17.5) gm/dL Hct (39.0-53.0) % RDW (11.5-15.5) % Neutrophils # (1.3-7.7) k/uL Monocytes # (0-1.0) k/uL Glucose (74-99) mg/dL POC Glucose (mg/dL) 72 L 195 H (75-99) mg/dL ALT (4-49) U/L C-Reactive Protein (<10.0) mg/L Total Protein (6.3-8.2) g/dL Albumin (3.5-5.0) g/dL Urine Protein Trace H (Negative) Urine Blood Trace H (Negative) Ur Leukocyte Esterase Moderate H (Negative) Urine RBC 7 H (0-5) /hpf Urine WBC 12 H (0-5) /hpf Urine Bacteria Occasional H (None) /hpf Urine Mucus Rare H (None) /hpf Assessment and Plan Plan: Assessment: 1 Coronary artery disease status post coronary artery bypass grafting 4. 2 History of coronary artery disease with previous stent placement 3 Diabetes mellitus 4 Hypertension 5 Hyperlipidemia 6 Degenerative joint disease 7 Chronic back pain 8 Previous history of tobacco use, daily marijuana use Plan: Encourage deep breathing and coughing, today's chest x-ray has been reviewed showing a possibility of less than 5% lidocaine with residual pneumothorax on the left, appears to be stable in appearance, no worsening dyspnea, pain is fairly well controlled, vital signs are stable, remains in sinus mechanism. All chest tubes epicardial wires and Elliott catheter has been discontinued. Anticipate discharge in next 24 hours if cleared by CT surgery I performed a history & physical examination of the patient and discussed their management with my nurse practitioner, Florence Mazariegos. I reviewed the nurse practitioner's note and agree with the documented findings and plan of care. Lung sounds are positive for clear breath sounds. The findings and the impression was discussed with the patient. I attest to the documentation by the nurse practitioner. Time with Patient: Less than 30
[2019-08-29 13:21] LABS: Anisocytosis Slight; HCT 23.4 % (39.0-53.0); HGB 7.8 gm/dL (13.0-17.5); Hypochromasia Moderate; MCH 32.2 pg (25.0-35.0); MCHC 33.2 g/dL (31.0-37.0); MCV 97.1 fL (80.0-100.0); Macrocytosis Slight; Mean Platelet Volume 7.1; Platelet Count 296 k/uL (150-450); Poikilocytosis Slight; RBC 2.41 m/uL (4.30-5.90); RDW 19.1 % (11.5-15.5); WBC 18.3 k/uL (3.8-10.6)
--- NOTE | 2019-08-29 16:25 | PN ---
PROGRESS NOTE DATE OF SERVICE: 08/29/2019 This 64-year-old gentleman who was admitted with CAD, CABG is improving significantly. Patient had a hypoglycemic episode today. No chest pain. No palpitations. No fever. PHYSICAL EXAMINATION: Alert and oriented x3. Pulse 60, blood pressure 140/61, respiration 16, temperature normal, pulse ox 96% on room air. HEENT: Conjunctivae normal. NECK: No jugular venous distention. CARDIOVASCULAR SYSTEM: S1, S2 muffled. RESPIRATORY SYSTEM: Breath sounds diminished at the bases. No rhonchi. No crackles. ABDOMEN: Soft, non-tender. LEGS: No edema. No swelling. NERVOUS SYSTEM: No focal deficit. LABS: UA noted. WBC 18.3, hemoglobin 7.8. ASSESSMENT: 1. Coronary artery disease, status post coronary artery bypass grafting. 2. Diabetes mellitus, type 2, on insulin. 3. Atrial fibrillation, paroxysmal. 4. Increased white count. 5. Anemia, normocytic as expected. 6. Hypokalemia. 7. Hypertension. 8. Hyperlipidemia. 9. Nausea and vomiting; possible acute gastritis, improved. 10.History of chronic back pain, degenerative joint disease. 11.History of chronic pain syndrome. 12.History of coronary artery disease, stent. 13.Remote history of nicotine dependence. 14.History of tetrahydrocannabinol. 15.FULL CODE. RECOMMENDATIONS AND DISCUSSION: I recommend to continue current medications, continue with symptomatic treatment. Otherwise, incentive spirometry. DVT prophylaxis. Continue the rest of the medications. Closely follow with Cardiothoracic Surgery. Cut down the dose of insulin to Levemir 25 units subcutaneously at bedtime. Further recommendations to follow. MMODL / IJN: [id number] /
[2019-08-29 16:40] LABS: Glucose,Whole Blood 262 mg/dL (75-99)
[2019-08-29] MEDS ORDERED: KETOROLAC 30 MG/ML 1 ML VIAL IVP STA (17:40)
[2019-08-29 20:40] LABS: Glucose,Whole Blood 226 mg/dL (75-99)
[2019-08-29] MEDS ORDERED: INSULIN DETEMIR (LEVEMIR) 100 UNIT/ML SYR SQ SCH (21:00)
[2019-08-29] MEDS: SENNOSIDES-DOCUSATE SODIUM 1 EACH TAB PO SCH (21:21)
[2019-08-30 01:58] LABS: Glucose,Whole Blood 142 mg/dL (75-99)
[2019-08-30 06:04] LABS: Glucose,Whole Blood 51 mg/dL (75-99)
[2019-08-30] MEDS: INSULIN ASPART (NovoLOG) 100 UNIT/ML VIAL SQ SCH ×4 (06:06→20:57)
[2019-08-30] MEDS: PANTOPRAZOLE 40 MG TABLET PO SCH (06:09)
[2019-08-30 06:18] LABS: Glucose,Whole Blood 61 mg/dL (75-99)
[2019-08-30 06:33] LABS: Glucose,Whole Blood 79 mg/dL (75-99)
[2019-08-30 06:45] LABS: Anisocytosis Slight; HCT 25.7 % (39.0-53.0); HGB 8.1 gm/dL (13.0-17.5); Hypochromasia Moderate; MCH 31.3 pg (25.0-35.0); MCHC 31.7 g/dL (31.0-37.0); MCV 98.8 fL (80.0-100.0); Macrocytosis Slight; Mean Platelet Volume 7.3; Platelet Count 353 k/uL (150-450); Poikilocytosis Slight; RDW 19.2 % (11.5-15.5); WBC 18.6 k/uL (3.8-10.6)
[2019-08-30 06:51] LABS: African American GFR (CKD) >90 (>60 ml/min/1.73 sqM); Anion Gap 7 mmol/L; Blood Urea Nitrogen 17 mg/dL (9-20); C Reactive Protein 77.8 mg/L (<10.0); Calcium 8.6 mg/dL (8.4-10.2); Carbon Dioxide 28 mmol/L (22-30); Chloride 102 mmol/L (98-107); Glucose 55 mg/dL (74-99); Non-African American GFR(CKD) >90 (>60 ml/min/1.73 sqM); Potassium 3.7 mmol/L (3.5-5.1); Sodium 137 mmol/L (137-145)
[2019-08-30 07:27] LABS: Eosinophils # (M) 0.37 k/uL (0-0.7); Lymphocytes # (M) 3.35 k/uL (1.0-4.8); Monocytes # (M) 1.86 k/uL (0-1.0); Neutrophils # (M) 13.02 k/uL (1.3-7.7); Neutrophils % (M) 70 %; Nucleated Red Blood Cells 0 /100 WBC (0-0); Polychromasia Present; Total Cells Counted 100
[2019-08-30] MEDS ORDERED: POTASSIUM CHLORIDE ER 20 MEQ TAB.ER PO SCH (08:00)
[2019-08-30] MEDS: IPRATROPIUM-ALBUTEROL 3 ML NEB INHALATION SCH ×4 (08:11→19:59)
--- NOTE | 2019-08-30 08:53 | XR ---
EXAMINATION TYPE: XR chest 2V DATE OF EXAM: 08/30/2019 COMPARISON: 08/29/2019 TECHNIQUE: PA and lateral views submitted. HISTORY: Postop cardiac surgery FINDINGS: Postsurgical changes are seen in the heart is enlarged. Subsegmental changes biapical pleural thicken ing. No overt failure. No pneumothorax. Arthropathy of the shoulders. Previously described rounded de nsity overlying the left heart border not seen on today's exam. Bilateral pleural effusions. Degenera tive change of the spine. IMPRESSION: 1. Cardiomegaly and basilar atelectasis or infiltrate with lateral pleural effusions.
--- NOTE | 2019-08-30 09:44 | P.PN ---
Subjective Progress Note Date: 08/30/19 Principal diagnosis: Symptomatic multivessel coronary artery disease. Past medical history significant for coronary artery disease with history of stent placement to his right coronary artery in 2015, hypertension, hyperlipidemia, daily marijuana use, remote history of nicotine dependence quit smoking 25 years ago, chronic lower back pain, insulin-dependent diabetes mellitus type 2 and family history of early onset coronary artery disease with his dad being diagnosed in his early 50s. POD #7 triple coronary artery bypass grafting using the left internal mammary artery to left anterior descending coronary artery, the left radial artery from the aorta to the second obtuse marginal coronary artery, a reverse greater saphenous vein graft from the aorta to the posterior descending coronary artery. Endoscopic harvesting of the left radial artery, endoscopic harvesting of the left greater saphenous vein from the groin to just below the knee level, intraoperative transesophageal echocardiogram, epi-aortic scanning and graft flow measurements using the [employer] renalim system. Postoperative acute blood loss anemia, an expected outcome secondary to cardiopulmonary bypass and hemodilution. Postoperative paroxysmal atrial fibrillation, an unexpected but the potential outcome of surgery. Today 08/30/2019 the patient was seen in follow-up at his bedside on the cardiac stepdown unit. The patient is currently sitting up to the bedside chair and is in no acute distress. He currently denies any complaints of surgical type pain or shortness of breath, continues to complain of minimal lower back pain which is chronic in nature. He ambulated in the cardiac stepdown unit hallway with minimal assistance this morning and reports that this is the best he has felt walking since his surgery. He remains hemodynamically stable and is on no inotropic or pressor support. He remains afebrile the last 24 hours. He is awake, alert and oriented 3. A bladder scan was completed yesterday post void residual with 200 mL of urine voided and 160 mL postvoid residual recorded. L aboratory results show a WBC count 18.6, hemoglobin 8.1, platelets 353, CRP 77.8, BUN 17, creatinine 0.8. The patient continues to have scant serosanguineous drainage from his distal sternal incision which has improved throughout the night. The incision remains approximated with some ecchymosis cavazos rrounding the distal part of the incision. No erythema is present. The importance of using his heart hugger has been reinforced and the patient acknowledges the importance. The patient's bedside nurse reports that his blood sugar was 55 this morning which was treated accordingly. Remote telemetry showing normal sinus rhythm heart rate 71 BPM. Oxygen saturation are 96% on room air and he is achieving 3175-3131 mL on his incentive spirometry. Urinalysis was collected yesterday and urine culture results are pending. Objective - Vital Signs Vital signs: Vital Signs Temp 97.9 F 08/30/19 03:56 Pulse 76 08/30/19 08:23 Resp 17 08/30/19 04:00 BP 159/73 08/30/19 03:56 Pulse Ox 99 08/30/19 08:12 Intake & Output 08/29/19 08/30/19 08/30/19 18:59 06:59 18:59 Intake Total 250 10 Output Total 944 1100 Balance -694 -1090 Weight 86.2 kg Intake: IV 10 0.9 10 Oral 250 Output: Urine 775 1100 Post Void Residual 169 Other: Voiding Method Urinal Urinal # Voids 1 1 # Bowel Movements 1 1 ABP, PAP, CO, CI - Last Documented Arterial Blood Pressure 152/64 Pulmonary Artery Pressure 33/16 Cardiac Output 5.4 Cardiac Index 2.7 - Exam This is a 64-year-old pleasant gentleman who is sitting up to the bedside chair on the cardiac stepdown unit. He is in no acute distress, he is awake, alert and oriented 3, he is hemodynamically and is on no inotropic or pressor support. Oxygen saturation are 96% on room air. - Constitutional General appearance: Present: cooperative, no acute distress, obese - EENT Eyes: Present: PERRLA, poor dentition, normal appearance. Absent: scleral icterus ENT: Present: hearing grossly normal - Neck Details: Neck is supple, no JVD, no lymphadenopathy. - Respiratory Details: Lung sounds essentially clear throughout, diminished to his bilateral bases. No wheezes, rhonchi or crackles. Respirations are symmetrical and nonlabored. Oxygen saturation are 96% on room air. Achieving 1252 1500 mL on his incentive spirometry with encouragement. - Cardiovascular Details: Regular rhythm and rate. S1 and S2 present, negative for S3, gallop or murmur. Sternum is stable. Heart hugger is in place and he is demonstrating appropriate use with encouragement. Remote telemetry showing normal sinus rhythm heart rate 71 BPM. Knee-high YOSSI hose and sequential compression devices in place to his bilateral lower extremities. No edema present. Left ulnar pulse palpable. - Gastrointestinal Gastrointestinal Comment(s): Abdomen is soft, nontender and nondistended. Active bowel sounds present in all 4 abdominal quadrants. No guarding or rigidity. No organomegaly appreciated. Bowel movement yesterday 08/29/2019. Tolerating oral intake. - Genitourinary Genitourinary Comment(s): Voiding clear yusuf urine. - Integumentary Integumentary Comment(s): Skin is warm and dry. No clubbing or cyanosis is present. Midline sternal incision is clean and approximated with scant serosanguineous drainage from his distal sternal incision. No erythema, although there is some surrounding ecchymosis. Left arm radial artery harvest sites clean, dry and approximated. No drainage or redness is present. Palpable ulnar pulse. Left leg EVH site, clean, dry and approximated. No drainage or redness present. - Neurologic Neurologic Comment(s): No focal neurological deficits. Neurologic: Present: CNII-XII intact - Musculoskeletal Musculoskeletal: Present: gait normal, generalized weakness, strength equal bilaterally - Psychiatric Psychiatric: Present: A&O x's 3, appropriate affect, intact judgment & insight - Allied health notes Allied health notes reviewed: nursing - Labs CBC & Chem 7: 08/30/19 06:15 08/30/19 06:15 Labs: Abnormal Lab Results - Last 24 Hours (Table) 08/29/19 08/29/19 08/29/19 Range/Units 10:28 12:13 12:36 WBC 18.3 H (3.8-10.6) k/uL RBC 2.41 L (4.30-5.90) m/uL Hgb 7.8 L (13.0-17.5) gm/dL Hct 23.4 L (39.0-53.0) % RDW 19.1 H (11.5-15.5) % Neutrophils # (Manual) (1.3-7.7) k/uL Monocytes # (Manual) (0-1.0) k/uL Glucose (74-99) mg/dL POC Glucose (mg/dL) 195 H (75-99) mg/dL C-Reactive Protein (<10.0) mg/L Urine Protein Trace H (Negative) Urine Blood Trace H (Negative) Ur Leukocyte Esterase Moderate H (Negative) Urine RBC 7 H (0-5) /hpf Urine WBC 12 H (0-5) /hpf Urine Bacteria Occasional H (None) /hpf Urine Mucus Rare H (None) /hpf 08/29/19 08/29/19 08/30/19 Range/Units 16:39 20:36 01:54 WBC (3.8-10.6) k/uL RBC (4.30-5.90) m/uL Hgb (13.0-17.5) gm/dL Hct (39.0-53.0) % RDW (11.5-15.5) % Neutrophils # (Manual) (1.3-7.7) k/uL Monocytes # (Manual) (0-1.0) k/uL Glucose (74-99) mg/dL POC Glucose (mg/dL) 262 H 226 H 142 H (75-99) mg/dL C-Reactive Protein (<10.0) mg/L Urine Protein (Negative) Urine Blood (Negative) Ur Leukocyte Esterase (Negative) Urine RBC (0-5) /hpf Urine WBC (0-5) /hpf Urine Bacteria (None) /hpf Urine Mucus (None) /hpf 08/30/19 08/30/19 08/30/19 Range/Units 06:02 06:15 06:15 WBC 18.6 H (3.8-10.6) k/uL RBC 2.60 L (4.30-5.90) m/uL Hgb 8.1 L (13.0-17.5) gm/dL Hct 25.7 L (39.0-53.0) % RDW 19.2 H (11.5-15.5) % Neutrophils # (Manual) 13.02 H (1.3-7.7) k/uL Monocytes # (Manual) 1.86 H (0-1.0) k/uL Glucose 55 L (74-99) mg/dL POC Glucose (mg/dL) 51 L (75-99) mg/dL C-Reactive Protein 77.8 H (<10.0) mg/L Urine Protein (Negative) Urine Blood (Negative) Ur Leukocyte Esterase (Negative) Urine RBC (0-5) /hpf Urine WBC (0-5) /hpf Urine Bacteria (None) /hpf Urine Mucus (None) /hpf 08/30/19 Range/Units 06:17 WBC (3.8-10.6) k/uL RBC (4.30-5.90) m/uL Hgb (13.0-17.5) gm/dL Hct (39.0-53.0) % RDW (11.5-15.5) % Neutrophils # (Manual) (1.3-7.7) k/uL Monocytes # (Manual) (0-1.0) k/uL Glucose (74-99) mg/dL POC Glucose (mg/dL) 61 L (75-99) mg/dL C-Reactive Protein (<10.0) mg/L Urine Protein (Negative) Urine Blood (Negative) Ur Leukocyte Esterase (Negative) Urine RBC (0-5) /hpf Urine WBC (0-5) /hpf Urine Bacteria (None) /hpf Urine Mucus (None) /hpf Microbiology - Last 24 Hours (Table) 08/29/19 10:28 Urine Culture - Preliminary Urine,Voided - Imaging and Cardiology Chest x-ray: report reviewed, image reviewed Assessment and Plan Assessment: 1. Symptomatic multivessel coronary artery disease with history of stent placement to his right coronary artery in 2014, status post triple-vessel steven nary artery bypass grafting surgery 2. Unstable angina 3. Ischemic cardiomyopathy with a preoperative ejection fraction of 40-45% 4. Hypertension 5. Dyslipidemia 6. 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 Remote history of tobacco dependence, quit 25 years ago 8. Family history of early onset coronary artery disease with his father diagnosed in his early 50s 9. Daily marijuana use 10. Postoperative acute blood loss anemia, an expected outcome of surgery due to cardiopulmonary bypass and hemodilution 11. Postoperative paroxysmal atrial fibrillation, an unexpected potential outcome of surgery Plan: 1. Continue aspirin, Plavix, statin and beta belkis. Increase metoprolol tartrate as tolerated. 2. Reinforce the importance of the heart hugger and encourage use of his heart hugger. Keep a folded 4 x 4 gauze to his distal sternal incision. 3. Encourage use of his incentive spirometry 10 times every hour while awake. 4. Continue amiodarone to 200 mg by mouth twice a day for atrial fibrillation prophylaxis. We will taper on an outpatient basis. 5. Medical management and diabetic management per primary care service. 6. Bronchodilators management per pulmonary medicine recommendations. 7. DVT and GI prophylaxis. 8. Continue to monitor daily labs and chest x-rays. Replace electrolytes per protocol. 9. Continue Norvasc 5 mg by mouth daily for radial artery spasm prophylaxis. Please do not discontinue without checking with cardiothoracic surgery service. 10. Increase activity as tolerated. PT/OT is following. The patient is doing well with ambulating with minimal assistance. 11. Pain control per current when necessary regimen. Continue patient's home dose of OxyContin. 12. Anticipate discharge home with [facility] within the next 24 hours. 13. Continue with postoperative cardiac care map instructions. Continue daily showers. 14. Urine culture results pending. WBCs today are 18.6. 15. More recommendations to follow based on patient's clinical course. Time with Patient: Greater than 30
[2019-08-30] MEDS: ASPIRIN 325 MG TAB PO SCH (09:47)
[2019-08-30] MEDS: METOPROLOL TARTRATE 50 MG TAB PO SCH ×2 (09:47→20:55)
[2019-08-30] MEDS: ATORVASTATIN 40 MG TAB PO SCH (09:47)
[2019-08-30] MEDS: LOSARTAN 25 MG TAB PO SCH (09:47)
[2019-08-30] MEDS: amLODIPine 5 MG TAB PO SCH (09:47)
[2019-08-30] MEDS: oxyCODONE ER 80 MG TAB.ER.12H PO SCH ×2 (09:48→20:55)
[2019-08-30] MEDS: HEPARIN SODIUM,PORCINE 5,000 UNIT/ML 1 ML VIAL SQ SCH ×2 (09:48→15:10)
[2019-08-30] MEDS: AMIODARONE 200 MG TAB PO SCH ×2 (09:48→20:55)
[2019-08-30] MEDS: CLOPIDOGREL 75 MG TAB PO SCH (09:48)
[2019-08-30] MEDS: DULoxetine HCL 60 MG CAPSULE.DR PO SCH (09:48)
[2019-08-30 11:17] LABS: Glucose,Whole Blood 150 mg/dL (75-99)
--- NOTE | 2019-08-30 11:48 | P.PN ---
Subjective 64-year-old pleasant gentleman is status post CABG. Patient is clinically doing well. Possibly of discharge tomorrow. Patient is still a bit hypoglycemic only on certain occasions once he switched to Lantus upon discharge I believe his blood pressure blood sugars will be better controlled than Levemir patient still has some hyperglycemia because of which I'm decreasing the dose of Levemir to 18 units from 25 units. Patient will continue on sliding scale insulin. Constitutional: Denied any fatigue denied any fever. Cardio vascular: denied any chest pain, palpitations Gastrointestinal denied any nausea vomiting Pulmonary: Denied any shortness of breath cough Neurologic denied any new focal deficits All inpatient medications were reviewed and appropriate changes in these medications as dictated in the interval history and assessment and plan. Objective - Vital Signs Vital signs: Vital Signs Temp 97.9 F 08/30/19 03:56 Pulse 70 08/30/19 11:30 Resp 17 08/30/19 04:00 BP 159/73 08/30/19 03:56 Pulse Ox 99 08/30/19 08:12 Intake & Output 08/29/19 08/30/19 08/30/19 18:59 06:59 18:59 Intake Total 250 10 Output Total 944 1100 Balance -694 -1090 Weight 86.2 kg Intake: IV 10 0.9 10 Oral 250 Output: Urine 775 1100 Post Void Residual 169 Other: Voiding Method Urinal Urinal # Voids 1 1 # Bowel Movements 1 1 ABP, PAP, CO, CI - Last Documented Arterial Blood Pressure 152/64 Pulmonary Artery Pressure 33/16 Cardiac Output 5.4 Cardiac Index 2.7 - Exam PHYSICAL EXAMINATION: GENERAL: The patient is alert and oriented x3, not in any acute distress. Well developed, well nourished. HEENT: Pupils are round and equally reacting to light. EOMI. No scleral icterus. No conjunctival pallor. Normocephalic, atraumatic. No pharyngeal erythema. No thyromegaly. CARDIOVASCULAR: S1 and S2 present. No murmurs, rubs, or gallops. PULMONARY: Chest is clear to auscultation, no wheezing or crackles. ABDOMEN: Soft, nontender, nondistended, normoactive bowel sounds. No palpable organomegaly. MUSCULOSKELETAL: No joint swelling or deformity. EXTREMITIES: No cyanosis, clubbing, or pedal edema. NEUROLOGICAL: Gross neurological examination did not reveal any focal deficits. SKIN: No rashes. - Labs CBC & Chem 7: 08/30/19 06:15 08/30/19 06:15 Labs: Abnormal Lab Results - Last 24 Hours (Table) 08/29/19 08/29/19 08/29/19 Range/Units 12:13 12:36 16:39 WBC 18.3 H (3.8-10.6) k/uL RBC 2.41 L (4.30-5.90) m/uL Hgb 7.8 L (13.0-17.5) gm/dL Hct 23.4 L (39.0-53.0) % RDW 19.1 H (11.5-15.5) % Neutrophils # (Manual) (1.3-7.7) k/uL Monocytes # (Manual) (0-1.0) k/uL Glucose (74-99) mg/dL POC Glucose (mg/dL) 195 H 262 H (75-99) mg/dL C-Reactive Protein (<10.0) mg/L 08/29/19 08/30/19 08/30/19 Range/Units 20:36 01:54 06:02 WBC (3.8-10.6) k/uL RBC (4.30-5.90) m/uL Hgb (13.0-17.5) gm/dL Hct (39.0-53.0) % RDW (11.5-15.5) % Neutrophils # (Manual) (1.3-7.7) k/uL Monocytes # (Manual) (0-1.0) k/uL Glucose (74-99) mg/dL POC Glucose (mg/dL) 226 H 142 H 51 L (75-99) mg/dL C-Reactive Protein (<10.0) mg/L 08/30/19 08/30/19 08/30/19 Range/Units 06:15 06:15 06:17 WBC 18.6 H (3.8-10.6) k/uL RBC 2.60 L (4.30-5.90) m/uL Hgb 8.1 L (13.0-17.5) gm/dL Hct 25.7 L (39.0-53.0) % RDW 19.2 H (11.5-15.5) % Neutrophils # (Manual) 13.02 H (1.3-7.7) k/uL Monocytes # (Manual) 1.86 H (0-1.0) k/uL Glucose 55 L (74-99) mg/dL POC Glucose (mg/dL) 61 L (75-99) mg/dL C-Reactive Protein 77.8 H (<10.0) mg/L 08/30/19 Range/Units 11:16 WBC (3.8-10.6) k/uL RBC (4.30-5.90) m/uL Hgb (13.0-17.5) gm/dL Hct (39.0-53.0) % RDW (11.5-15.5) % Neutrophils # (Manual) (1.3-7.7) k/uL Monocytes # (Manual) (0-1.0) k/uL Glucose (74-99) mg/dL POC Glucose (mg/dL) 150 H (75-99) mg/dL C-Reactive Protein (<10.0) mg/L Microbiology - Last 24 Hours (Table) 08/29/19 10:28 Urine Culture - Preliminary Urine,Voided Assessment and Plan Plan: -Severe multivessel disease status post CABG clinically doing well will be disc harged probably tomorrow -Ischemic cardi-myopathy of around 40-45% patient appears to be euvolemic at this time. - hypertension next and heparin dyslipemia -possible diabetes with us type II management as mentioned above -Hyperlipidemia -Postoperative blood loss anemia Heparin postoperative proximal A. fib Management as mentioned above
--- NOTE | 2019-08-30 11:50 | P.PN ---
Subjective Progress Note Date: 08/30/19 This is a 64-year-old gentleman admitted to the hospital with unstable angina, underwent a cardiac catheterization by Dr. Hua and was found to have severe triple-vessel coronary artery disease. He underwent coronary artery bypass grafting surgery, seen on the cardiac unit this morning. He states overall he feels weak and tired, breathing is somewhat short. He did ambulate in the hallway this morning and tolerated it fairly well. Blood pressure 134/60 with a heart rate in the 60s, 90% on room air. White blood cell count 14.6, hemoglobin 7.2, platelet count 208. Sodium 134, potassium 3.9, BUN 27 and creatinine 1.1. 08/29/2019 Patient seen and examined this morning, hemodynamically stable. Blood pressure 142/68, heart rate in the 60s, afebrile. 92% on room air. White blood cell co unt 19.4, hemoglobin 8.1, platelet count 335. Sodium 138, potassium 3.5, BUN 17, creatinine 0.6. 08/30/2019 patient seen and examined this morning he sitting up in chair at bedside. Overall doing well, continues to complain of lower back discomfort. He did ambulate in the hallway today. Remains afebrile for the past 24 hours. White blood cell count 18.6, hemoglobin 8.1, platelet count 353, BUN 17, creatinine 0.8. Continues to be in a normal sinus rhythm with a heart rate in the 70s. Objective - Vital Signs Vital signs: Vital Signs Temp 97.9 F 08/30/19 03:56 Pulse 70 08/30/19 11:30 Resp 17 08/30/19 04:00 BP 159/73 08/30/19 03:56 Pulse Ox 99 08/30/19 08:12 Intake & Output 08/29/19 08/30/19 08/30/19 18:59 06:59 18:59 Intake Total 250 10 Output Total 944 1100 Balance -694 -1090 Weight 86.2 kg Intake: IV 10 0.9 10 Oral 250 Output: Urine 775 1100 Post Void Residual 169 Other: Voiding Method Urinal Urinal # Voids 1 1 # Bowel Movements 1 1 ABP, PAP, CO, CI - Last Documented Arterial Blood Pressure 152/64 Pulmonary Artery Pressure 33/16 Cardiac Output 5.4 Cardiac Index 2.7 - Exam GENERAL EXAM: Alert, pleasant 64-year-old gentleman, 90% on 2l, comfortable in no apparent distress. HEAD: Normocephalic. EYES: Normal reaction of pupils, equal size. NOSE: Clear with pink turbinates. THROAT: No erythema or exudates. NECK: No masses, no JVD. CHEST: Sternal dressing dry and intact. Her upper and place. LUNGS: Equal air entry with crackles in the bilateral posterior bases. CVS: S1 and S2 normal with no audible murmur, regular rhythm. ABDOMEN: No hepatosplenomegaly, normal bowel sounds, no guarding or rigidity. SPINE: No scoliosis or deformity SKIN: No rashes CENTRAL NERVOUS SYSTEM: No focal deficits, tone is normal in all 4 extremities. EXTREMITIES: There is no peripheral edema. No clubbing, no cyanosis. Peripheral pulses are intact - Labs CBC & Chem 7: 08/30/19 06:15 08/30/19 06:15 Labs: Abnormal Lab Results - Last 24 Hours (Table) 08/29/19 08/29/19 08/29/19 Range/Units 12:13 12:36 16:39 WBC 18.3 H (3.8-10.6) k/uL RBC 2.41 L (4.30-5.90) m/uL Hgb 7.8 L (13.0-17.5) gm/dL Hct 23.4 L (39.0-53.0) % RDW 19.1 H (11.5-15.5) % Neutrophils # (Manual) (1.3-7.7) k/uL Monocytes # (Manual) (0-1.0) k/uL Glucose (74-99) mg/dL POC Glucose (mg/dL) 195 H 262 H (75-99) mg/dL C-Reactive Protein (<10.0) mg/L 08/29/19 08/30/19 08/30/19 Range/Units 20:36 01:54 06:02 WBC (3.8-10.6) k/uL RBC (4.30-5.90) m/uL Hgb (13.0-17.5) gm/dL Hct (39.0-53.0) % RDW (11.5-15.5) % Neutrophils # (Manual) (1.3-7.7) k/uL Monocytes # (Manual) (0-1.0) k/uL Glucose (74-99) mg/dL POC Glucose (mg/dL) 226 H 142 H 51 L (75-99) mg/dL C-Reactive Protein (<10.0) mg/L 08/30/19 08/30/19 08/30/19 Range/Units 06:15 06:15 06:17 WBC 18.6 H (3.8-10.6) k/uL RBC 2.60 L (4.30-5.90) m/uL Hgb 8.1 L (13.0-17.5) gm/dL Hct 25.7 L (39.0-53.0) % RDW 19.2 H (11.5-15.5) % Neutrophils # (Manual) 13.02 H (1.3-7.7) k/uL Monocytes # (Manual) 1.86 H (0-1.0) k/uL Glucose 55 L (74-99) mg/dL POC Glucose (mg/dL) 61 L (75-99) mg/dL C-Reactive Protein 77.8 H (<10.0) mg/L 08/30/19 Range/Units 11:16 WBC (3.8-10.6) k/uL RBC (4.30-5.90) m/uL Hgb (13.0-17.5) gm/dL Hct (39.0-53.0) % RDW (11.5-15.5) % Neutrophils # (Manual) (1.3-7.7) k/uL Monocytes # (Manual) (0-1.0) k/uL Glucose (74-99) mg/dL POC Glucose (mg/dL) 150 H (75-99) mg/dL C-Reactive Protein (<10.0) mg/L Microbiology - Last 24 Hours (Table) 08/29/19 10:28 Urine Culture - Preliminary Urine,Voided Assessment and Plan Plan: Assessment: 1. Symptomatic multivessel coronary artery disease with history of stent placement to his right coronary artery in 2014, status post triple-vessel coron lencho artery bypass grafting surgery 2. Unstable angina 3. Ischemic cardiomyopathy with a preoperative ejection fraction of 40-45% 4. Hypertension 5. Dyslipidemia 6. 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 Remote history of tobacco dependence, quit 25 years ago 8. Family history of early onset coronary artery disease with his father diagnosed in his early 50s 9. Daily marijuana use #10 postoperative anemia Plan From cardiology's perspective, we'll recommend the patient continue his current medications. Continue the use of his incentive spirometry. Planning for possible discharge home within the next 24 hours with [facility]. DNP note has been reviewed, I agree with a documented findings and plan of care. Patient was seen and examined.
--- NOTE | 2019-08-30 12:34 | P.PN ---
Subjective Progress Note Date: 08/30/19 Principal diagnosis: Coronary artery disease status post coronary artery bypass grafting, postoperative day 4 On 08/29/2019 patient seen in follow-up on selective care unit. He is resting comfortably in the chair, in no acute distress, room air pulse ox 96%, hemodynamically patient is stable, no fever or chills, hemodynamically stable, in sinus mechanism with a rate of 69 BPM. All of his chest tubes, and epicardial wires have been discontinued, Elliott catheter has been discontinued, patient is voiding. Lung sounds are clear, diminished at the bases, today's chest x-ray shows cardiomegaly, round density overlying the left heart border that could possibly represent small less than 5% likelihood residual pneumothorax. No shortness of breath. His pain is fairly well controlled. On 08/30/2019 patient seen in follow-up on selective care unit, he is sleepy, but easily arousable, resting comfortably in bed, still complaining of some back pain, denies any shortness of breath, he is currently on 3 L of oxygen with pulse ox of 99%. Hemodynamically stable, no fever or chills. In sinus mechanism with a rate of 76 BPM. Today's chest x-ray shows cardiomegaly with ba silar atelectasis or infiltrate with lateral pleural effusions. All of the chest tubes have been discontinued, epicardial wires have been discontinued, patient has some mild drainage of mostly serous drainage from the distal and of his sternal incision. No fever or chills. Today's labs have been reviewed, showing with blood cell count of 18.6, hemoglobin is 8.1. Electrolytes and renal profile were within normal limits, patient did have an episode of hypoglycemia early this morning, patient is on Levemir, and sliding scale insulin and the dose of insulin has been adjusted. Objective - Vital Signs Vital signs: Vital Signs Temp 97.9 F 08/30/19 03:56 Pulse 70 08/30/19 11:30 Resp 17 08/30/19 04:00 BP 159/73 08/30/19 03:56 Pulse Ox 99 08/30/19 08:12 Intake & Output 08/29/19 08/30/19 08/30/19 18:59 06:59 18:59 Intake Total 250 10 Output Total 944 1100 Balance -694 -1090 Weight 86.2 kg Intake: IV 10 0.9 10 Oral 250 Output: Urine 775 1100 Post Void Residual 169 Other: Voiding Method Urinal Urinal # Voids 1 1 # Bowel Movements 1 1 ABP, PAP, CO, CI - Last Documented Arterial Blood Pressure 152/64 Pulmonary Artery Pressure 33/16 Cardiac Output 5.4 Cardiac Index 2.7 - Exam GENERAL EXAM: Alert, very pleasant, 64-year-old male on room air, with pulse ox of 96% comfortable in no apparent distress. HEAD: Normocephalic/atraumatic. EYES: Normal reaction of pupils, equal size. Conjunctiva pink, sclera white. NOSE: Clear with pink turbinates. THROAT: No erythema or exudates. NECK: No masses, no JVD, no thyroid enlargement, no adenopathy. CHEST: No chest wall deformity. Symmetrical expansion. Midsternal incision well approximated, with some drainage at the distal and which is mostly serous in nature, chest tube sites clean dry and intact LUNGS: Equal air entry with no crackles, wheeze, rhonchi or dullness. CVS: Regular rate and rhythm, normal S1 and S2, no gallops, no murmurs, no rubs ABDOMEN: Soft, nontender. No hepatosplenomegaly, normal bowel sounds, no guarding or rigidity. EXTREMITIES: No clubbing, no edema, no cyanosis, 2+ pulses and upper and lower extremities. MUSCULOSKELETAL: Muscle strength and tone normal. SPINE: No scoliosis or deformity SKIN: No rashes CENTRAL NERVOUS SYSTEM: Alert and oriented -3. No focal deficits, tone is normal in all 4 extremities. PSYCHIATRIC: Alert and oriented -3. Appropriate affect. Intact judgment and insight. - Labs CBC & Chem 7: 08/30/19 06:15 08/30/19 06:15 Labs: Abnormal Lab Results - Last 24 Hours (Table) 08/29/19 08/29/19 08/29/19 Range/Units 12:13 12:36 16:39 WBC 18.3 H (3.8-10.6) k/uL RBC 2.41 L (4.30-5.90) m/uL Hgb 7.8 L (13.0-17.5) gm/dL Hct 23.4 L (39.0-53.0) % RDW 19.1 H (11.5-15.5) % Neutrophils # (Manual) (1.3-7.7) k/uL Monocytes # (Manual) (0-1.0) k/uL Glucose (74-99) mg/dL POC Glucose (mg/dL) 195 H 262 H (75-99) mg/dL C-Reactive Protein (<10.0) mg/L 08/29/19 08/30/19 08/30/19 Range/Units 20:36 01:54 06:02 WBC (3.8-10.6) k/uL RBC (4.30-5.90) m/uL Hgb (13.0-17.5) gm/dL Hct (39.0-53.0) % RDW (11.5-15.5) % Neutrophils # (Manual) (1.3-7.7) k/uL Monocytes # (Manual) (0-1.0) k/uL Glucose (74-99) mg/dL POC Glucose (mg/dL) 226 H 142 H 51 L (75-99) mg/dL C-Reactive Protein (<10.0) mg/L 08/30/19 08/30/19 08/30/19 Range/Units 06:15 06:15 06:17 WBC 18.6 H (3.8-10.6) k/uL RBC 2.60 L (4.30-5.90) m/uL Hgb 8.1 L (13.0-17.5) gm/dL Hct 25.7 L (39.0-53.0) % RDW 19.2 H (11.5-15.5) % Neutrophils # (Manual) 13.02 H (1.3-7.7) k/uL Monocytes # (Manual) 1.86 H (0-1.0) k/uL Glucose 55 L (74-99) mg/dL POC Glucose (mg/dL) 61 L (75-99) mg/dL C-Reactive Protein 77.8 H (<10.0) mg/L 08/30/19 Range/Units 11:16 WBC (3.8-10.6) k/uL RBC (4.30-5.90) m/uL Hgb (13.0-17.5) gm/dL Hct (39.0-53.0) % RDW (11.5-15.5) % Neutrophils # (Manual) (1.3-7.7) k/uL Monocytes # (Manual) (0-1.0) k/uL Glucose (74-99) mg/dL POC Glucose (mg/dL) 150 H (75-99) mg/dL C-Reactive Protein (<10.0) mg/L Microbiology - Last 24 Hours (Table) 08/29/19 10:28 Urine Culture - Preliminary Urine,Voided Assessment and Plan Plan: Assessment: 1 Coronary artery disease status post coronary artery bypass grafting 4. 2 History of coronary artery disease with previous stent placement 3 Diabetes mellitus 4 Hypertension 5 Hyperlipidemia 6 Degenerative joint disease 7 Chronic back pain 8 Previous history of tobacco use, daily marijuana use Plan: Patient is doing well, still having some mostly serous drainage from the distal and of his midsternal incision, vital signs are stable, no fever or chills, today's chest x-ray has been reviewed, showing some basilar atelectasis and lateral pleural effusions. No evidence of pneumothorax. Hemodynamically stable, in sinus mechanism. Patient will continue to be monitored for another 24 hours, we'll continue to closely follow. I performed a history & physical examination of the patient and discussed their management with my nurse practitioner, Florence Mazariegos. I reviewed the nurse practitioner's note and agree with the documented findings and plan of care. Lung sounds are positive for clear breath sounds. The findings and the impression was discussed with the patient. I attest to the documentation by the nurse practitioner. Time with Patient: Less than 30
[2019-08-30] MEDS: KETOROLAC 30 MG/ML 1 ML VIAL IVP SCH ×2 (13:49→17:37)
[2019-08-30] MEDS: CEPHALEXIN 500 MG CAP PO SCH ×3 (15:10→21:52)
[2019-08-30 16:55] LABS: Glucose,Whole Blood 257 mg/dL (75-99)
[2019-08-30] MEDS: ONDANSETRON 4 MG/2 ML VIAL IVP PRN (19:59)
[2019-08-30 20:33] LABS: Glucose,Whole Blood 187 mg/dL (75-99)
[2019-08-30] MEDS: SENNOSIDES-DOCUSATE SODIUM 1 EACH TAB PO SCH (20:56)
[2019-08-30] MEDS: INSULIN DETEMIR (LEVEMIR) 100 UNIT/ML SYR SQ SCH (20:57)
[2019-08-31] MEDS: KETOROLAC 30 MG/ML 1 ML VIAL IVP SCH ×2 (00:07→06:13)
[2019-08-31] MEDS: HEPARIN SODIUM,PORCINE 5,000 UNIT/ML 1 ML VIAL SQ SCH ×4 (00:10→23:57)
[2019-08-31 06:05] LABS: Glucose,Whole Blood 86 mg/dL (75-99)
[2019-08-31] MEDS: INSULIN ASPART (NovoLOG) 100 UNIT/ML VIAL SQ SCH ×4 (06:14→21:31)
[2019-08-31] MEDS: PANTOPRAZOLE 40 MG TABLET PO SCH (06:14)
[2019-08-31 06:43] LABS: Anisocytosis Slight; Basophils % (A) 0 %; Eosinophils # (A) 0.3 k/uL (0-0.7); Eosinophils % (A) 2 %; HCT 25.5 % (39.0-53.0); HGB 7.8 gm/dL (13.0-17.5); Hypochromasia Marked; Lymphocytes # (A) 1.8 k/uL (1.0-4.8); Lymphocytes % (A) 11 %; MCH 31.2 pg (25.0-35.0); MCHC 30.6 g/dL (31.0-37.0); MCV 101.9 fL (80.0-100.0); Macrocytosis Moderate; Mean Platelet Volume 7.1; Monocytes # (A) 1.3 k/uL (0-1.0); Monocytes % (A) 8 %; Neutrophils # (A) 12.4 k/uL (1.3-7.7); Neutrophils % (A) 77 %; Platelet Count 400 k/uL (150-450); Poikilocytosis Slight; RDW 19.1 % (11.5-15.5); WBC 16.1 k/uL (3.8-10.6)
[2019-08-31 06:57] LABS: Albumin 2.8 g/dL (3.5-5.0); Calcium 8.2 mg/dL (8.4-10.2); Potassium 4.2 mmol/L (3.5-5.1); Total Bilirubin 0.5 mg/dL (0.2-1.3); Total Protein 5.3 g/dL (6.3-8.2)
[2019-08-31] MEDS: CEPHALEXIN 500 MG CAP PO SCH ×2 (08:22→12:12)
[2019-08-31] MEDS: DULoxetine HCL 60 MG CAPSULE.DR PO SCH (08:23)
[2019-08-31] MEDS: METOPROLOL TARTRATE 50 MG TAB PO SCH ×2 (08:23→20:05)
[2019-08-31] MEDS: oxyCODONE ER 80 MG TAB.ER.12H PO SCH ×2 (08:23→20:06)
[2019-08-31] MEDS: ATORVASTATIN 40 MG TAB PO SCH (08:23)
[2019-08-31] MEDS: CLOPIDOGREL 75 MG TAB PO SCH (08:26)
[2019-08-31] MEDS: AMIODARONE 200 MG TAB PO SCH ×2 (08:28→20:06)
[2019-08-31] MEDS: LOSARTAN 25 MG TAB PO SCH (08:29)
[2019-08-31] MEDS: amLODIPine 5 MG TAB PO SCH (08:32)
[2019-08-31] MEDS: ASPIRIN 325 MG TAB PO SCH (08:32)
--- NOTE | 2019-08-31 08:43 | P.PN ---
Subjective Progress Note Date: 08/31/19 Principal diagnosis: Symptomatic multivessel coronary artery disease. Past medical history significant for coronary artery disease with history of stent placement to his right coronary artery in 2015, hypertension, hyperlipidemia, daily marijuana use, remote history of nicotine dependence quit smoking 25 years ago, chronic lower back pain, insulin-dependent diabetes mellitus type 2 and family history of early onset coronary artery disease with his dad being diagnosed in his early 50s. POD #8 triple coronary artery bypass grafting using the left internal mammary artery to left anterior descending coronary artery, the left radial artery from the aorta to the second obtuse marginal coronary artery, a reverse greater saphenous vein graft from the aorta to the posterior descending coronary artery. Endoscopic harvesting of the left radial artery, endoscopic harvesting of the left greater saphenous vein from the groin to just below the knee level, intraoperative transesophageal echocardiogram, epi-aortic scanning and graft flow measurements using the Avexxinim system. Postoperative acute blood loss anemia, an expected outcome secondary to cardiopulmonary bypass and hemodilution. Postoperative paroxysmal atrial fibrillation, an unexpected but the potential outcome of surgery. The patient was seen today in follow-up on 08/31/2019 at his bedside on the cardiac stepdown unit. He is currently sitting up to the bedside chair, and is in no acute distress. He is awake, alert and oriented 3. He reports he is feeling much better today and currently denies any complaints of pain or shortness of breath. The distal sternal incision has some scant serosanguineous drainage present this morning. The sternal incision remains approximated with no erythema, although does have some scant ecchymosis. The patient's heart hugger remains in place and the use of the heart hugger has been reinforced with the patient. He remains afebrile last 24 hours. Preliminary results of the urine culture shows greater than 100,000 CFU per milliliter of gram negative bacilli. He was started on Keflex 500 mg by mouth 4 times a day yesterday as his WBC count was 18.6 and today it is trending down and is 16.1. The patient has been ambulating in the cardiac stepdown unit hallway with minimal assistance of nursing staff and reports he walked the hallway 3 times yesterday. Remote telemetry showing normal sinus rhythm heart rate 60 bpm, no further episodes of atrial fibrillation have been reported. Oxygen saturations are 97% on room air and he is achieving 2912-7097 mL on his incentive spirometry. Objective - Vital Signs Vital signs: Vital Signs Temp 98 F 08/31/19 04:00 Pulse 65 08/31/19 07:49 Resp 18 08/31/19 07:49 BP 138/67 08/31/19 07:49 Pulse Ox 99 08/31/19 04:00 Intake & Output 08/30/19 08/31/19 08/31/19 18:59 06:59 18:59 Intake Total 250 240 Output Total 900 800 Balance -650 -800 240 Weight 85.8 kg Intake: IV 10 0.9 10 Oral 240 240 Output: Urine 900 800 Other: Voiding Method Urinal # Voids 3 ABP, PAP, CO, CI - Last Documented Arterial Blood Pressure 152/64 Pulmonary Artery Pressure 33/16 Cardiac Output 5.4 Cardiac Index 2.7 - Exam This is a pleasant 64-year-old gentleman who is currently sitting up to the bedside chair on the cardiac stepdown unit. He is in no acute distress. He is awake, alert and oriented 3. Oxygen saturations are 97% on room air. - Constitutional General appearance: Present: cooperative, no acute distress, obese - EENT Eyes: Present: PERRLA, poor dentition, normal appearance. Absent: scleral icterus ENT: Present: hearing grossly normal - Neck Details: Neck is supple, no lymphadenopathy, no JVD. - Respiratory Details: Lung sounds are essentially clear to his bilateral upper lobes, few scattered crackles to his bilateral bases. Respirations are symmetrical and nonlabored. No wheezes, or rhonchi. Oxygen saturation is 97% on room air. Achieving 1500- 1750 mL on his incentive spirometry. - Cardiovascular Details: Regular rhythm and rate. S1 and S2 present, negative for S3, gallop or murmur. Sternum is stable. Remote telemetry showing normal sinus rhythm heart rate 60 ppm. Heart hugger is in place and he is demonstrating appropriate use with encouragement. Knee-high YOSSI hose and sequential compression devices in place to his bilateral lower extremities. Palpable ulnar pulses to his left arm. No edema present. - Gastrointestinal Gastrointestinal Comment(s): Abdomen is soft, nontender and nondistended. Active bowel sounds present all 4 abdominal quadrants. No guarding or rigidity. No organomegaly appreciated. Tolerating oral intake. - Genitourinary Genitourinary Comment(s): Voiding clear yusuf urine. - Integumentary Integumentary Comment(s): Skin is warm and dry. No clubbing or cyanosis is present. Midline sternal i ncision is clean, approximated and without erythema. Scant serosanguineous drainage to his distal sternal incision. Dressing is clean, dry and intact. Left lower extremity EVH site is clean, dry and approximated. No drainage or redness is present. Left arm radial artery harvest sites are clean, dry and approximated. No drainage redness is present. - Neurologic Neurologic: Present: CNII-XII intact - Musculoskeletal Musculoskeletal: Present: gait normal, generalized weakness, strength equal bilaterally - Psychiatric Psychiatric: Present: A&O x's 3, appropriate affect, intact judgment & insight - Allied health notes Allied health notes reviewed: nursing - Labs CBC & Chem 7: 08/31/19 06:21 08/31/19 06:21 Labs: Abnormal Lab Results - Last 24 Hours (Table) 08/30/19 08/30/19 08/30/19 Range/Units 11:16 16:53 20:32 WBC (3.8-10.6) k/uL RBC (4.30-5.90) m/uL Hgb (13.0-17.5) gm/dL Hct (39.0-53.0) % MCV (80.0-100.0) fL MCHC (31.0-37.0) g/dL RDW (11.5-15.5) % Neutrophils # (1.3-7.7) k/uL Monocytes # (0-1.0) k/uL BUN (9-20) mg/dL POC Glucose (mg/dL) 150 H 257 H 187 H (75-99) mg/dL Calcium (8.4-10.2) mg/dL ALT (4-49) U/L Total Protein (6.3-8.2) g/dL Albumin (3.5-5.0) g/dL 08/31/19 08/31/19 Range/Units 06:21 06:21 WBC 16.1 H (3.8-10.6) k/uL RBC 2.50 L (4.30-5.90) m/uL Hgb 7.8 L (13.0-17.5) gm/dL Hct 25.5 L (39.0-53.0) % MCV 101.9 H (80.0-100.0) fL MCHC 30.6 L (31.0-37.0) g/dL RDW 19.1 H (11.5-15.5) % Neutrophils # 12.4 H (1.3-7.7) k/uL Monocytes # 1.3 H (0-1.0) k/uL BUN 24 H (9-20) mg/dL POC Glucose (mg/dL) (75-99) mg/dL Calcium 8.2 L (8.4-10.2) mg/dL ALT 53 H (4-49) U/L Total Protein 5.3 L (6.3-8.2) g/dL Albumin 2.8 L (3.5-5.0) g/dL Microbiology - Last 24 Hours (Table) 08/29/19 10:28 Urine Culture - Preliminary Urine,Voided Gram Neg Bacilli - Imaging and Cardiology Chest x-ray: report reviewed, image reviewed Assessment and Plan Assessment: 1. Symptomatic multivessel coronary artery disease with history of stent jigar cement to his right coronary artery in 2014, status post triple-vessel coronary artery bypass grafting surgery 2. Unstable angina 3. Ischemic cardiomyopathy with a preoperative ejection fraction of 40-45% 4. Hypertension 5. Dyslipidemia 6. 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 Remote history of tobacco dependence, quit 25 years ago 8. Family history of early onset coronary artery disease with his father diagnosed in his early 50s 9. Daily marijuana use 10. Postoperative acute blood loss anemia, an expected outcome of surgery due to cardiopulmonary bypass and hemodilution 11. Postoperative paroxysmal atrial fibrillation, an unexpected potential outcome of surgery Plan: 1. Continue aspirin, Plavix, statin and beta belkis. Increase metoprolol tartrate as tolerated. 2. Reinforce the importance of the heart hugger and encourage use of his heart hugger. Keep a folded 4 x 4 gauze to his distal sternal incision change daily a nd as needed. 3. Encourage use of his incentive spirometry 10 times every hour while awake. 4. Continue amiodarone to 200 mg by mouth twice a day for atrial fibrillation prophylaxis. We will taper amiodarone on 09/02/2019 to 200 mg by mouth daily 7 days. 5. Medical management and diabetic management per primary care service. 6. Bronchodilators management per pulmonary medicine recommendations. 7. DVT and GI prophylaxis. 8. Continue to monitor daily labs and chest x-rays. Replace electrolytes per protocol. 9. Continue Norvasc 5 mg by mouth daily for radial artery spasm prophylaxis. P lease do not discontinue without checking with cardiothoracic surgery service. 10. Increase activity as tolerated. PT/OT is following. The patient is doing well with ambulating with minimal assistance. 11. Pain control per current when necessary regimen. Discontinue Toradol, continue patient's home dose of oxycodone ER 80 mg by mouth twice a day and oxycodoneAPAP 5325 milligrams 1 by mouth twice a day. 12. Anticipate discharge home with [facility] within the next 24 hours. 13. Continue with postoperative cardiac care map instructions. Continue daily showers. 14. Urine culture results show greater than 100,000 CFU per milliliter of gram- negative bacilli. WBCs today are 16.1, continue Keflex 500 mg by mouth 4 times a day. Awaiting final sensitivities. 15. More recommendations to follow based on patient's clinical course. Time with Patient: Greater than 30
[2019-08-31] MEDS: IPRATROPIUM-ALBUTEROL 3 ML NEB INHALATION SCH ×4 (08:46→20:00)
--- NOTE | 2019-08-31 09:18 | XR ---
EXAMINATION TYPE: XR chest 1V portable DATE OF EXAM: 08/31/2019 COMPARISON: 08/30/2019 HISTORY: Postop cardiac surgery TECHNIQUE: Single frontal view of the chest is obtained. FINDINGS: Heart is enlarged and is postsurgical changes. Subsegmental consolidation lung bases. No p neumothorax. Arthropathy of the shoulders. No overt failure. No pneumothorax. Arthropathy of the shou lders. IMPRESSION: 1. Bibasilar consolidation.
--- NOTE | 2019-08-31 11:21 | P.PN ---
Subjective Progress Note Date: 08/31/19 Principal diagnosis: Coronary artery disease status post coronary artery bypass grafting The patient is seen today 08/31/2019 in follow-up on the selective care unit. He is currently sitting up in a chair at the bedside awake and alert in no acute distress. He is improved today. There is still some scant serosanguineous drainage from the distal sternal incision. He is currently on Keflex per cardiothoracic surgery. He also has a urinary tract infection secondary to gram-negative bacilli. He is currently maintaining good O2 saturations in the 90s on room air. Chest x-ray reveals bibasilar consolidation. He's been afebrile. Hemodynamically stable. White count 16.1. Hemoglobin 7.8. Platelets 400. Sodium 139. Potassium 4.2. Creatinine 1.06. AST 31, ALT 53. He c ontinues to work well with the incentive spirometer. He's been up ambulating with assistance. Objective - Vital Signs Vital signs: Vital Signs Temp 98 F 08/31/19 04:00 Pulse 60 08/31/19 08:57 Resp 18 08/31/19 08:00 BP 138/67 08/31/19 07:49 Pulse Ox 99 08/31/19 04:00 Intake & Output 08/30/19 08/31/19 08/31/19 18:59 06:59 18:59 Intake Total 250 240 Output Total 900 800 Balance -650 -800 240 Weight 85.8 kg Intake: IV 10 0.9 10 Oral 240 240 Output: Urine 900 800 Other: Voiding Method Urinal Urinal # Voids 3 ABP, PAP, CO, CI - Last Documented Arterial Blood Pressure 152/64 Pulmonary Artery Pressure 33/16 Cardiac Output 5.4 Cardiac Index 2.7 - Exam GENERAL EXAM: Alert, pleasant 64-year-old gentleman, on room air, comfortable in no apparent distress. HEAD: Normocephalic. EYES: Normal reaction of pupils, equal size. NOSE: Clear with pink turbinates. THROAT: No erythema or exudates. NECK: No masses, no JVD. CHEST: Sternal incision with small amount of serous drainage at the distal portion. Heart Hugger in place. LUNGS: Equal air entry with crackles in the bilateral posterior bases. CVS: S1 and S2 normal with no audible murmur, regular rhythm. ABDOMEN: No hepatosplenomegaly, normal bowel sounds, no guarding or rigidity. SPINE: No scoliosis or deformity SKIN: No rashes CENTRAL NERVOUS SYSTEM: No focal deficits, tone is normal in all 4 extremities. EXTREMITIES: There is no peripheral edema. No clubbing, no cyanosis. Peripheral pulses are intact. - Labs CBC & Chem 7: 08/31/19 06:21 08/31/19 06:21 Labs: Abnormal Lab Results - Last 24 Hours (Table) 08/30/19 08/30/19 08/30/19 Range/Units 11:16 16:53 20:32 WBC (3.8-10.6) k/uL RBC (4.30-5.90) m/uL Hgb (13.0-17.5) gm/dL Hct (39.0-53.0) % MCV (80.0-100.0) fL MCHC (31.0-37.0) g/dL RDW (11.5-15.5) % Neutrophils # (1.3-7.7) k/uL Monocytes # (0-1.0) k/uL BUN (9-20) mg/dL POC Glucose (mg/dL) 150 H 257 H 187 H (75-99) mg/dL Calcium (8.4-10.2) mg/dL ALT (4-49) U/L Total Protein (6.3-8.2) g/dL Albumin (3.5-5.0) g/dL 08/31/19 08/31/19 Range/Units 06:21 06:21 WBC 16.1 H (3.8-10.6) k/uL RBC 2.50 L (4.30-5.90) m/uL Hgb 7.8 L (13.0-17.5) gm/dL Hct 25.5 L (39.0-53.0) % MCV 101.9 H (80.0-100.0) fL MCHC 30.6 L (31.0-37.0) g/dL RDW 19.1 H (11.5-15.5) % Neutrophils # 12.4 H (1.3-7.7) k/uL Monocytes # 1.3 H (0-1.0) k/uL BUN 24 H (9-20) mg/dL POC Glucose (mg/dL) (75-99) mg/dL Calcium 8.2 L (8.4-10.2) mg/dL ALT 53 H (4-49) U/L Total Protein 5.3 L (6.3-8.2) g/dL Albumin 2.8 L (3.5-5.0) g/dL Microbiology - Last 24 Hours (Table) 08/29/19 10:28 Urine Culture - Preliminary Urine,Voided Gram Neg Bacilli Assessment and Plan Assessment: 1 Coronary artery disease status post coronary artery bypass grafting. Scant serous drainage from the distal portion of the surgical incision. Currently on Keflex. 2 History of coronary artery disease with previous stent placement 3 Diabetes mellitus 4 Hypertension 5 Hyperlipidemia 6 Degenerative joint disease 7 Chronic back pain 8 Previous history of tobacco use, daily marijuana use 9 Gram-negative bacilli in the urine Plan: The patient was seen and evaluated by Dr. Iglesias Chest x-ray and labs reviewed Again encouraged the increased use of the incentive spirometer and cough and deep breathing Increase his activity as tolerated We'll continue to follow and make further recommendations based on his clinical status I, the cosigning physician, performed a history & physical examination of the patient. Lungs sounds with crackles in the bilateral posterior bases. Maintaining good O2 saturations in the 90s on room air. I discussed the assessment and plan of care with my nurse practitioner, Mervat Graf. I attest to the above note as dictated by her.
--- NOTE | 2019-08-31 11:22 | P.PN ---
Subjective 64-year-old pleasant gentleman is status post CABG. Patient is clinically doing well. Possibly of discharge tomorrow. Patient is still a bit hypoglycemic only on certain occasions once he switched to Lantus upon discharge I believe his blood pressure blood sugars will be better controlled than Levemir patient still has some hyperglycemia because of which I'm decreasing the dose of Levemir to 18 units from 25 units. Patient will continue on sliding scale insulin. 08/31/2019 Patient is clinically doing well patient has increased atelectasis on the chest x-ray with increased the infiltrates probably secondary to atelectasis on the chest x-ray that was done today patient he is bit abnormal but patient doesn't have any symptoms of UTI patient has a symptomatically bacteriuria patient will not require antibiotics for these 2 patient was started on ceftezole and because of the surgical wound I believe which was not examined by me Constitutional: Denied any fatigue denied any fever. Cardio vascular: denied any chest pain, palpitations Gastrointestinal denied any nausea vomiting Pulmonary: Denied any shortness of breath cough Neurologic denied any new focal deficits All inpatient medications were reviewed and appropriate changes in these medications as dictated in the interval history and assessment and plan. Objective - Vital Signs Vital signs: Vital Signs Temp 98 F 08/31/19 04:00 Pulse 60 08/31/19 08:57 Resp 18 08/31/19 08:00 BP 138/67 08/31/19 07:49 Pulse Ox 99 08/31/19 04:00 Intake & Output 08/30/19 08/31/19 08/31/19 18:59 06:59 18:59 Intake Total 250 240 Output Total 900 800 Balance -650 -800 240 Weight 85.8 kg Intake: IV 10 0.9 10 Oral 240 240 Output: Urine 900 800 Other: Voiding Method Urinal Urinal # Voids 3 ABP, PAP, CO, CI - Last Documented Arterial Blood Pressure 152/64 Pulmonary Artery Pressure 33/16 Cardiac Output 5.4 Cardiac Index 2.7 - Exam PHYSICAL EXAMINATION: GENERAL: The patient is alert and oriented x3, not in any acute distress. Well developed, well nourished. HEENT: Pupils are round and equally reacting to light. EOMI. No scleral icterus. No conjunctival pallor. Normocephalic, atraumatic. No pharyngeal erythema. No thyromegaly. CARDIOVASCULAR: S1 and S2 present. No murmurs, rubs, or gallops. PULMONARY: Chest is clear to auscultation, no wheezing or crackles. ABDOMEN: Soft, nontender, nondistended, normoactive bowel sounds. No palpable organomegaly. MUSCULOSKELETAL: No joint swelling or deformity. EXTREMITIES: No cyanosis, clubbing, or pedal edema. NEUROLOGICAL: Gross neurological examination did not reveal any focal deficits. SKIN: No rashes. - Labs CBC & Chem 7: 08/31/19 06:21 08/31/19 06:21 Labs: Abnormal Lab Results - Last 24 Hours (Table) 08/30/19 08/30/19 08/31/19 Range/Units 16:53 20:32 06:21 WBC 16.1 H (3.8-10.6) k/uL RBC 2.50 L (4.30-5.90) m/uL Hgb 7.8 L (13.0-17.5) gm/dL Hct 25.5 L (39.0-53.0) % MCV 101.9 H (80.0-100.0) fL MCHC 30.6 L (31.0-37.0) g/dL RDW 19.1 H (11.5-15.5) % Neutrophils # 12.4 H (1.3-7.7) k/uL Monocytes # 1.3 H (0-1.0) k/uL BUN (9-20) mg/dL POC Glucose (mg/dL) 257 H 187 H (75-99) mg/dL Calcium (8.4-10.2) mg/dL ALT (4-49) U/L Total Protein (6.3-8.2) g/dL Albumin (3.5-5.0) g/dL 08/31/19 Range/Units 06:21 WBC (3.8-10.6) k/uL RBC (4.30-5.90) m/uL Hgb (13.0-17.5) gm/dL Hct (39.0-53.0) % MCV (80.0-100.0) fL MCHC (31.0-37.0) g/dL RDW (11.5-15.5) % Neutrophils # (1.3-7.7) k/uL Monocytes # (0-1.0) k/uL BUN 24 H (9-20) mg/dL POC Glucose (mg/dL) (75-99) mg/dL Calcium 8.2 L (8.4-10.2) mg/dL ALT 53 H (4-49) U/L Total Protein 5.3 L (6.3-8.2) g/dL Albumin 2.8 L (3.5-5.0) g/dL Microbiology - Last 24 Hours (Table) 08/29/19 10:28 Urine Culture - Preliminary Urine,Voided Gram Neg Bacilli Assessment and Plan Plan: -Severe multivessel disease status post CABG clinically doing well will be discharged probably tomorrow -Ischemic cardi-myopathy of around 40-45% patient appears to be euvolemic at this time. - hypertension next and heparin dyslipemia -possible diabetes with us type II management as mentioned above -Hyperlipidemia -Postoperative blood loss anemia - postoperative proximal A. fib Hypertension chronic bacteriuria and will not require antibiotics for this -Atelectasis bilateral incentive spirometry Management as mentioned above
[2019-08-31 11:52] LABS: Glucose,Whole Blood 247 mg/dL (75-99)
[2019-08-31] MEDS: oxyCODONE-APAP 5-325MG 1 EACH TAB PO SCH ×2 (12:12→23:57)
--- NOTE | 2019-08-31 14:47 | P.PN ---
Subjective Progress Note Date: 08/31/19 This is a 64-year-old gentleman admitted to the hospital with unstable angina, underwent a cardiac catheterization by Dr. Hua and was found to have severe triple-vessel coronary artery disease. He underwent coronary artery bypass grafting surgery, seen on the cardiac unit this morning. He states overall he feels weak and tired, breathing is somewhat short. He did ambulate in the hallway this morning and tolerated it fairly well. Blood pressure 134/60 with a heart rate in the 60s, 90% on room air. White blood cell count 14.6, hemoglobin 7.2, platelet count 208. Sodium 134, potassium 3.9, BUN 27 and creatinine 1.1. 08/29/2019 Patient seen and examined this morning, hemodynamically stable. Blood pressure 142/68, heart rate in the 60s, afebrile. 92% on room air. White blood cell co unt 19.4, hemoglobin 8.1, platelet count 335. Sodium 138, potassium 3.5, BUN 17, creatinine 0.6. 08/30/2019 patient seen and examined this morning he sitting up in chair at bedside. Overall doing well, continues to complain of lower back discomfort. He did ambulate in the hallway today. Remains afebrile for the past 24 hours. White blood cell count 18.6, hemoglobin 8.1, platelet count 353, BUN 17, creatinine 0.8. Continues to be in a normal sinus rhythm with a heart rate in the 70s. 08/31/2019 Patient was seen and examined this morning, continues to do well, complaining of some lower back discomfort. Hemodynamically he is stable.White blood cell count 16.1, hemoglobin 7.8, platelet count 400. Sodium 139, potassium 4.2, BUN 24, creatinine 1.0. Objective - Vital Signs Vital signs: Vital Signs Temp 98.2 F 08/31/19 11:44 Pulse 60 08/31/19 12:04 Resp 17 08/31/19 11:44 BP 135/61 08/31/19 11:44 Pulse Ox 100 08/31/19 11:44 Intake & Output 08/30/19 08/31/19 08/31/19 18:59 06:59 18:59 Intake Total 250 480 Output Total 900 800 Balance -650 -800 480 Weight 85.8 kg Intake: IV 10 0.9 10 Oral 240 480 Output: Urine 900 800 Other: Voiding Method Urinal Urinal # Voids 3 ABP, PAP, CO, CI - Last Documented Arterial Blood Pressure 152/64 Pulmonary Artery Pressure 33/16 Cardiac Output 5.4 Cardiac Index 2.7 - Exam GENERAL EXAM: Alert, pleasant 64-year-old gentleman, 90% on 2l, comfortable in no apparent distress. HEAD: Normocephalic. EYES: Normal reaction of pupils, equal size. NOSE: Clear with pink turbinates. THROAT: No erythema or exudates. NECK: No masses, no JVD. CHEST: Sternal dressing dry and intact. Her upper and place. LUNGS: Equal air entry with crackles in the bilateral posterior bases. CVS: S1 and S2 normal with no audible murmur, regular rhythm. ABDOMEN: No hepatosplenomegaly, normal bowel sounds, no guarding or rigidity. SPINE: No scoliosis or deformity SKIN: No rashes CENTRAL NERVOUS SYSTEM: No focal deficits, tone is normal in all 4 extremities. EXTREMITIES: There is no peripheral edema. No clubbing, no cyanosis. Peripheral pulses are intact - Labs CBC & Chem 7: 08/31/19 06:21 08/31/19 06:21 Labs: Abnormal Lab Results - Last 24 Hours (Table) 08/30/19 08/30/19 08/31/19 Range/Units 16:53 20:32 06:21 WBC 16.1 H (3.8-10.6) k/uL RBC 2.50 L (4.30-5.90) m/uL Hgb 7.8 L (13.0-17.5) gm/dL Hct 25.5 L (39.0-53.0) % MCV 101.9 H (80.0-100.0) fL MCHC 30.6 L (31.0-37.0) g/dL RDW 19.1 H (11.5-15.5) % Neutrophils # 12.4 H (1.3-7.7) k/uL Monocytes # 1.3 H (0-1.0) k/uL BUN (9-20) mg/dL POC Glucose (mg/dL) 257 H 187 H (75-99) mg/dL Calcium (8.4-10.2) mg/dL ALT (4-49) U/L Total Protein (6.3-8.2) g/dL Albumin (3.5-5.0) g/dL 08/31/19 08/31/19 Range/Units 06:21 11:46 WBC (3.8-10.6) k/uL RBC (4.30-5.90) m/uL Hgb (13.0-17.5) gm/dL Hct (39.0-53.0) % MCV (80.0-100.0) fL MCHC (31.0-37.0) g/dL RDW (11.5-15.5) % Neutrophils # (1.3-7.7) k/uL Monocytes # (0-1.0) k/uL BUN 24 H (9-20) mg/dL POC Glucose (mg/dL) 247 H (75-99) mg/dL Calcium 8.2 L (8.4-10.2) mg/dL ALT 53 H (4-49) U/L Total Protein 5.3 L (6.3-8.2) g/dL Albumin 2.8 L (3.5-5.0) g/dL Microbiology - Last 24 Hours (Table) 08/29/19 10:28 Urine Culture - Final Urine,Voided Pseudomonas aeruginosa Assessment and Plan Plan: Assessment: 1. Symptomatic multivessel coronary artery disease with history of stent placement to his right coronary artery in 2014, status post triple-vessel coronary artery bypass grafting surgery 2. Unstable angina 3. Ischemic cardiomyopathy with a preoperative ejection fraction of 40-45% 4. Hypertension 5. Dyslipidemia 6. 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 Remote history of tobacco dependence, quit 25 years ago 8. Family history of early onset coronary artery disease with his father diagnosed in his early 50s 9. Daily marijuana use #10 postoperative anemia Plan From cardiology's perspective, we'll recommend the patient continue his current medications. Continue the use of his incentive spirometry. Planning for possible discharge home within the next 24 hours with [facility]. DNP note has been reviewed, I agree with a documented findings and plan of care. Patient was seen and examined.
[2019-08-31 14:49] VITALS: BMI 29.6
[2019-08-31 16:55] LABS: Glucose,Whole Blood 202 mg/dL (75-99)
[2019-08-31] MEDS: LEVOFLOXACIN 500 MG TAB PO SCH (16:59)
[2019-08-31] MEDS: SENNOSIDES-DOCUSATE SODIUM 1 EACH TAB PO SCH (20:07)
[2019-08-31 20:24] LABS: Glucose,Whole Blood 176 mg/dL (75-99)
[2019-08-31] MEDS: INSULIN DETEMIR (LEVEMIR) 100 UNIT/ML SYR SQ SCH (21:31)
[2019-09-01 06:16] LABS: Glucose,Whole Blood 148 mg/dL (75-99)
[2019-09-01] MEDS: INSULIN ASPART (NovoLOG) 100 UNIT/ML VIAL SQ SCH ×2 (06:19→13:06)
[2019-09-01] MEDS: PANTOPRAZOLE 40 MG TABLET PO SCH (06:19)
[2019-09-01 07:31] LABS: Anisocytosis Slight; Basophils % (A) 0 %; Eosinophils # (A) 0.2 k/uL (0-0.7); Eosinophils % (A) 2 %; HCT 24.4 % (39.0-53.0); HGB 7.8 gm/dL (13.0-17.5); Hypochromasia Marked; Lymphocytes # (A) 1.4 k/uL (1.0-4.8); Lymphocytes % (A) 10 %; MCH 31.3 pg (25.0-35.0); MCHC 31.9 g/dL (31.0-37.0); MCV 98.2 fL (80.0-100.0); Macrocytosis Slight; Mean Platelet Volume 7.2; Monocytes # (A) 1.2 k/uL (0-1.0); Monocytes % (A) 8 %; Neutrophils # (A) 11.4 k/uL (1.3-7.7); Neutrophils % (A) 79 %; Platelet Count 490 k/uL (150-450); Poikilocytosis Slight; RBC 2.48 m/uL (4.30-5.90); RDW 18.6 % (11.5-15.5); WBC 14.4 k/uL (3.8-10.6)
[2019-09-01 07:45] LABS: ALT 45 U/L (4-49); AST 25 U/L (17-59); African American GFR (CKD) >90 (>60 ml/min/1.73 sqM); Albumin 2.9 g/dL (3.5-5.0); Alkaline Phosphatase 123 U/L (38-126); Anion Gap 5 mmol/L; Blood Urea Nitrogen 24 mg/dL (9-20); C Reactive Protein 88.7 mg/L (<10.0); Calcium 8.3 mg/dL (8.4-10.2); Carbon Dioxide 28 mmol/L (22-30); Chloride 103 mmol/L (98-107); Glucose 152 mg/dL (74-99); Non-African American GFR(CKD) >90 (>60 ml/min/1.73 sqM); Potassium 4.6 mmol/L (3.5-5.1); Sodium 136 mmol/L (137-145); Total Bilirubin 0.6 mg/dL (0.2-1.3); Total Protein 5.4 g/dL (6.3-8.2)
[2019-09-01] MEDS ORDERED: FUROSEMIDE 10 MG/ML 2 ML VIAL IV ONE (07:49)
[2019-09-01] MEDS: IPRATROPIUM-ALBUTEROL 3 ML NEB INHALATION SCH ×3 (08:12→16:26)
--- NOTE | 2019-09-01 09:08 | XR ---
EXAMINATION TYPE: XR chest 1V portable DATE OF EXAM: 09/01/2019 COMPARISON: 08/31/2019 HISTORY: Postop TECHNIQUE: Single frontal view of the chest is obtained. FINDINGS: Heart is enlarged and is postoperative change. There is blunting of the costophrenic angle on the left. No overt failure or pneumothorax. No interstitial edema. Left basilar subsegmental retr ocardiac density consolidation. IMPRESSION: The heart is enlarged and there is chronic left-sided pleural thickening or small effusi on. Basilar subsegmental consolidation most likely in the basis of postoperative atelectasis.
[2019-09-01] MEDS: oxyCODONE ER 80 MG TAB.ER.12H PO SCH ×2 (09:47→09:58)
[2019-09-01] MEDS: LEVOFLOXACIN 500 MG TAB PO SCH (09:47)
[2019-09-01] MEDS: LOSARTAN 25 MG TAB PO SCH (09:47)
[2019-09-01] MEDS: AMIODARONE 200 MG TAB PO SCH (09:48)
[2019-09-01] MEDS: METOPROLOL TARTRATE 50 MG TAB PO SCH (09:48)
[2019-09-01] MEDS: CLOPIDOGREL 75 MG TAB PO SCH (09:48)
[2019-09-01] MEDS: ATORVASTATIN 40 MG TAB PO SCH (09:48)
[2019-09-01] MEDS: ASPIRIN 325 MG TAB PO SCH (09:48)
[2019-09-01] MEDS: DULoxetine HCL 60 MG CAPSULE.DR PO SCH (09:48)
[2019-09-01] MEDS: HEPARIN SODIUM,PORCINE 5,000 UNIT/ML 1 ML VIAL SQ SCH (09:48)
[2019-09-01] MEDS: amLODIPine 5 MG TAB PO SCH (09:56)
[2019-09-01] MEDS: oxyCODONE-APAP 5-325MG 1 EACH TAB PO SCH (09:58)
--- NOTE | 2019-09-01 11:08 | P.PN ---
Subjective 64-year-old pleasant gentleman is status post CABG. Patient is clinically doing well. Possibly of discharge tomorrow. Patient is still a bit hypoglycemic only on certain occasions once he switched to Lantus upon discharge I believe his blood pressure blood sugars will be better controlled than Levemir patient still has some hyperglycemia because of which I'm decreasing the dose of Levemir to 18 units from 25 units. Patient will continue on sliding scale insulin. 08/31/2019 Patient is clinically doing well patient has increased atelectasis on the chest x-ray with increased the infiltrates probably secondary to atelectasis on the chest x-ray that was done today patient he is bit abnormal but patient doesn't have any symptoms of UTI patient has a symptomatically bacteriuria patient will not require antibiotics for these 2 patient was started on ceftezole and because of the surgical wound I believe which was not examined by me 09/01/2019 Patient blood sugars are well controlled patient can be discharged on the same regimen as he is on today and patient is being discharged today which is agreeable from medicine perspective Constitutional: Denied any fatigue denied any fever. Cardio vascular: denied any chest pain, palpitations Gastrointestinal denied any nausea vomiting Pulmonary: Denied any shortness of breath cough Neurologic denied any new focal deficits All inpatient medications were reviewed and appropriate changes in these medications as dictated in the interval history and assessment and plan. Objective - Vital Signs Vital signs: Vital Signs Temp 98.2 F 09/01/19 04:30 Pulse 70 09/01/19 08:24 Resp 20 09/01/19 04:30 BP 144/69 09/01/19 04:30 Pulse Ox 94 L 09/01/19 04:30 Intake & Output 08/31/19 09/01/19 09/01/19 18:59 06:59 18:59 Intake Total 720 180 Output Total 550 550 Balance 170 -550 180 Weight 85.8 kg 87 kg Intake: Oral 720 180 Output: Urine 550 550 Other: Voiding Method Urinal Urinal # Bowel Movements 0 ABP, PAP, CO, CI - Last Documented Arterial Blood Pressure 152/64 Pulmonary Artery Pressure 33/16 Cardiac Output 5.4 Cardiac Index 2.7 - Exam PHYSICAL EXAMINATION: GENERAL: The patient is alert and oriented x3, not in any acute distress. Well developed, well nourished. HEENT: Pupils are round and equally reacting to light. EOMI. No scleral icterus. No conjunctival pallor. Normocephalic, atraumatic. No pharyngeal erythema. No thyromegaly. CARDIOVASCULAR: S1 and S2 present. No murmurs, rubs, or gallops. PULMONARY: Chest is clear to auscultation, no wheezing or crackles. ABDOMEN: Soft, nontender, nondistended, normoactive bowel sounds. No palpable organomegaly. MUSCULOSKELETAL: No joint swelling or deformity. EXTREMITIES: No cyanosis, clubbing, or pedal edema. NEUROLOGICAL: Gross neurological examination did not reveal any focal deficits. SKIN: No rashes. - Labs CBC & Chem 7: 09/01/19 06:56 09/01/19 06:56 Labs: Abnormal Lab Results - Last 24 Hours (Table) 08/31/19 08/31/19 08/31/19 Range/Units 11:46 16:51 20:23 WBC (3.8-10.6) k/uL RBC (4.30-5.90) m/uL Hgb (13.0-17.5) gm/dL Hct (39.0-53.0) % RDW (11.5-15.5) % Plt Count (150-450) k/uL Neutrophils # (1.3-7.7) k/uL Monocytes # (0-1.0) k/uL Sodium (137-145) mmol/L BUN (9-20) mg/dL Glucose (74-99) mg/dL POC Glucose (mg/dL) 247 H 202 H 176 H (75-99) mg/dL Calcium (8.4-10.2) mg/dL C-Reactive Protein (<10.0) mg/L Total Protein (6.3-8.2) g/dL Albumin (3.5-5.0) g/dL 09/01/19 09/01/19 09/01/19 Range/Units 06:14 06:56 06:56 WBC 14.4 H (3.8-10.6) k/uL RBC 2.48 L (4.30-5.90) m/uL Hgb 7.8 L (13.0-17.5) gm/dL Hct 24.4 L (39.0-53.0) % RDW 18.6 H (11.5-15.5) % Plt Count 490 H (150-450) k/uL Neutrophils # 11.4 H (1.3-7.7) k/uL Monocytes # 1.2 H (0-1.0) k/uL Sodium 136 L (137-145) mmol/L BUN 24 H (9-20) mg/dL Glucose 152 H (74-99) mg/dL POC Glucose (mg/dL) 148 H (75-99) mg/dL Calcium 8.3 L (8.4-10.2) mg/dL C-Reactive Protein 88.7 H (<10.0) mg/L Total Protein 5.4 L (6.3-8.2) g/dL Albumin 2.9 L (3.5-5.0) g/dL Microbiology - Last 24 Hours (Table) 08/29/19 10:28 Urine Culture - Final Urine,Voided Pseudomonas aeruginosa Assessment and Plan Plan: -Severe multivessel disease status post CABG clinically doing well will be di scharged today -Ischemic cardi-myopathy of around 40-45% patient appears to be euvolemic at this time. - hypertension next and heparin dyslipemia -possible diabetes with us type II management, patient can be discharged on the same regimen he is on right now. I recommend Lantus rather than Levemir upon discharge -Hyperlipidemia -Postoperative blood loss anemia - postoperative proximal A. fib Hypertension chronic bacteriuria and will not require antibiotics for this -Atelectasis bilateral incentive spirometry Management as mentioned above
[2019-09-01 11:13] VITALS: TEMP 98.3
[2019-09-01 11:45] LABS: Glucose,Whole Blood 233 mg/dL (75-99)
--- NOTE | 2019-09-01 11:53 | P.PN ---
Subjective Progress Note Date: 09/01/19 Principal diagnosis: Coronary artery disease status post coronary artery bypass grafting The patient is seen today 09/01/2019 in follow-up on the selective care unit. He is awake and alert in no acute distress. He is maintaining good O2 saturation in the mid 90s on room air. He's been afebrile. Hemodynamically stable. Remaining in sinus rhythm. Urine cultures positive for pseudomonas. White count 14.4. Hemoglobin 7.8. Sodium 136. Potassium 4.6. Creatinine 0.91. He is now on Levaquin. Chest x-ray reveals cardiomegaly with a chronic left sided pleural thickening or small effusion. Basilar subsegmental consolidation secondary to atelectasis. He is working with the incentive spirometer. Up ambulating with assistance. Objective - Vital Signs Vital signs: Vital Signs Temp 98.3 F 09/01/19 08:00 Pulse 70 09/01/19 08:24 Resp 20 09/01/19 08:00 BP 149/70 09/01/19 08:00 Pulse Ox 95 09/01/19 08:00 Intake & Output 08/31/19 09/01/19 09/01/19 18:59 06:59 18:59 Intake Total 720 180 Output Total 550 550 Balance 170 -550 180 Weight 85.8 kg 87 kg Intake: Oral 720 180 Output: Urine 550 550 Other: Voiding Method Urinal Urinal # Bowel Movements 0 ABP, PAP, CO, CI - Last Documented Arterial Blood Pressure 152/64 Pulmonary Artery Pressure 33/16 Cardiac Output 5.4 Cardiac Index 2.7 - Exam GENERAL EXAM: Alert, pleasant 64-year-old gentleman, on room air, comfortable in no apparent distress. HEAD: Normocephalic. EYES: Normal reaction of pupils, equal size. NOSE: Clear with pink turbinates. THROAT: No erythema or exudates. NECK: No masses, no JVD. CHEST: Sternal incision with minimal amount of serous drainage at the distal portion. Heart Hugger in place. LUNGS: Equal air entry with crackles in the bilateral posterior bases. CVS: S1 and S2 normal with no audible murmur, regular rhythm. ABDOMEN: No hepatosplenomegaly, normal bowel sounds, no guarding or rigidity. SPINE: No scoliosis or deformity SKIN: No rashes CENTRAL NERVOUS SYSTEM: No focal deficits, tone is normal in all 4 extremities. EXTREMITIES: There is no peripheral edema. No clubbing, no cyanosis. Peripheral pulses are intact. - Labs CBC & Chem 7: 09/01/19 06:56 09/01/19 06:56 Labs: Abnormal Lab Results - Last 24 Hours (Table) 08/31/19 08/31/19 08/31/19 Range/Units 11:46 16:51 20:23 WBC (3.8-10.6) k/uL RBC (4.30-5.90) m/uL Hgb (13.0-17.5) gm/dL Hct (39.0-53.0) % RDW (11.5-15.5) % Plt Count (150-450) k/uL Neutrophils # (1.3-7.7) k/uL Monocytes # (0-1.0) k/uL Sodium (137-145) mmol/L BUN (9-20) mg/dL Glucose (74-99) mg/dL POC Glucose (mg/dL) 247 H 202 H 176 H (75-99) mg/dL Calcium (8.4-10.2) mg/dL C-Reactive Protein (<10.0) mg/L Total Protein (6.3-8.2) g/dL Albumin (3.5-5.0) g/dL 09/01/19 09/01/19 09/01/19 Range/Units 06:14 06:56 06:56 WBC 14.4 H (3.8-10.6) k/uL RBC 2.48 L (4.30-5.90) m/uL Hgb 7.8 L (13.0-17.5) gm/dL Hct 24.4 L (39.0-53.0) % RDW 18.6 H (11.5-15.5) % Plt Count 490 H (150-450) k/uL Neutrophils # 11.4 H (1.3-7.7) k/uL Monocytes # 1.2 H (0-1.0) k/uL Sodium 136 L (137-145) mmol/L BUN 24 H (9-20) mg/dL Glucose 152 H (74-99) mg/dL POC Glucose (mg/dL) 148 H (75-99) mg/dL Calcium 8.3 L (8.4-10.2) mg/dL C-Reactive Protein 88.7 H (<10.0) mg/L Total Protein 5.4 L (6.3-8.2) g/dL Albumin 2.9 L (3.5-5.0) g/dL 09/01/19 Range/Units 11:43 WBC (3.8-10.6) k/uL RBC (4.30-5.90) m/uL Hgb (13.0-17.5) gm/dL Hct (39.0-53.0) % RDW (11.5-15.5) % Plt Count (150-450) k/uL Neutrophils # (1.3-7.7) k/uL Monocytes # (0-1.0) k/uL Sodium (137-145) mmol/L BUN (9-20) mg/dL Glucose (74-99) mg/dL POC Glucose (mg/dL) 233 H (75-99) mg/dL Calcium (8.4-10.2) mg/dL C-Reactive Protein (<10.0) mg/L Total Protein (6.3-8.2) g/dL Albumin (3.5-5.0) g/dL Microbiology - Last 24 Hours (Table) 08/29/19 10:28 Urine Culture - Final Urine,Voided Pseudomonas aeruginosa Assessment and Plan Assessment: 1 Coronary artery disease status post coronary artery bypass grafting. 2 History of coronary artery disease with previous stent placement 3 Diabetes mellitus 4 Hypertension 5 Hyperlipidemia 6 Degenerative joint disease 7 Chronic back pain 8 Previous history of tobacco use, daily marijuana use 9 Pseudomonas aeruginosa urinary tract infection Plan: The patient was seen and evaluated by Dr. Iglesias Chest x-ray and labs reviewed Currently on Levaquin Again encouraged regarding the increased use of the incentive spirometer Increase his activity as tolerated We'll continue to follow and make further recommendations based on his clinical status I, the cosigning physician, performed a history & physical examination of the patient. Lungs sounds with crackles in the bilateral posterior bases. Maintaining good O2 saturations in the 90s on room air. I discussed the assessment and plan of care with my nurse practitioner, Mervat Graf. I attest to the above note as dictated by her.
--- NOTE | 2019-09-01 12:07 | P.PN ---
Subjective Progress Note Date: 09/01/19 This is a 64-year-old gentleman admitted to the hospital with unstable angina, underwent a cardiac catheterization by Dr. Hua and was found to have severe triple-vessel coronary artery disease. He underwent coronary artery bypass grafting surgery, seen on the cardiac unit this morning. He states overall he feels weak and tired, breathing is somewhat short. He did ambulate in the hallway this morning and tolerated it fairly well. Blood pressure 134/60 with a heart rate in the 60s, 90% on room air. White blood cell count 14.6, hemoglobin 7.2, platelet count 208. Sodium 134, potassium 3.9, BUN 27 and creatinine 1.1. 08/29/2019 Patient seen and examined this morning, hemodynamically stable. Blood pressure 142/68, heart rate in the 60s, afebrile. 92% on room air. White blood cell co unt 19.4, hemoglobin 8.1, platelet count 335. Sodium 138, potassium 3.5, BUN 17, creatinine 0.6. 08/30/2019 patient seen and examined this morning he sitting up in chair at bedside. Overall doing well, continues to complain of lower back discomfort. He did ambulate in the hallway today. Remains afebrile for the past 24 hours. White blood cell count 18.6, hemoglobin 8.1, platelet count 353, BUN 17, creatinine 0.8. Continues to be in a normal sinus rhythm with a heart rate in the 70s. 08/31/2019 Patient was seen and examined this morning, continues to do well, complaining of some lower back discomfort. Hemodynamically he is stable.White blood cell count 16.1, hemoglobin 7.8, platelet count 400. Sodium 139, potassium 4.2, BUN 24, creatinine 1.0. 09/01/2019 Patient seen and examined this morning, hemodynamically stable. Anticipating discharge today. Blood pressure 148/70 with a heart rate in the 70s, temperature 98.3. 95% on room air. Objective - Vital Signs Vital signs: Vital Signs Temp 98.3 F 09/01/19 08:00 Pulse 70 09/01/19 08:24 Resp 20 09/01/19 08:00 BP 149/70 09/01/19 08:00 Pulse Ox 95 09/01/19 08:00 Intake & Output 08/31/19 09/01/19 09/01/19 18:59 06:59 18:59 Intake Total 720 180 Output Total 550 550 Balance 170 -550 180 Weight 85.8 kg 87 kg Intake: Oral 720 180 Output: Urine 550 550 Other: Voiding Method Urinal Urinal # Bowel Movements 0 ABP, PAP, CO, CI - Last Documented Arterial Blood Pressure 152/64 Pulmonary Artery Pressure 33/16 Cardiac Output 5.4 Cardiac Index 2.7 - Exam GENERAL EXAM: Alert, pleasant 64-year-old gentleman, 90% on 2l, comfortable in no apparent distress. HEAD: Normocephalic. EYES: Normal reaction of pupils, equal size. NOSE: Clear with pink turbinates. THROAT: No erythema or exudates. NECK: No masses, no JVD. CHEST: Sternal dressing dry and intact. Her upper and place. LUNGS: Equal air entry with crackles in the bilateral posterior bases. CVS: S1 and S2 normal with no audible murmur, regular rhythm. ABDOMEN: No hepatosplenomegaly, normal bowel sounds, no guarding or rigidity. SPINE: No scoliosis or deformity SKIN: No rashes CENTRAL NERVOUS SYSTEM: No focal deficits, tone is normal in all 4 extremities. EXTREMITIES: There is no peripheral edema. No clubbing, no cyanosis. Peripheral pulses are intact - Labs CBC & Chem 7: 09/01/19 06:56 09/01/19 06:56 Labs: Abnormal Lab Results - Last 24 Hours (Table) 08/31/19 08/31/19 08/31/19 Range/Units 11:46 16:51 20:23 WBC (3.8-10.6) k/uL RBC (4.30-5.90) m/uL Hgb (13.0-17.5) gm/dL Hct (39.0-53.0) % RDW (11.5-15.5) % Plt Count (150-450) k/uL Neutrophils # (1.3-7.7) k/uL Monocytes # (0-1.0) k/uL Sodium (137-145) mmol/L BUN (9-20) mg/dL Glucose (74-99) mg/dL POC Glucose (mg/dL) 247 H 202 H 176 H (75-99) mg/dL Calcium (8.4-10.2) mg/dL C-Reactive Protein (<10.0) mg/L Total Protein (6.3-8.2) g/dL Albumin (3.5-5.0) g/dL 09/01/19 09/01/19 09/01/19 Range/Units 06:14 06:56 06:56 WBC 14.4 H (3.8-10.6) k/uL RBC 2.48 L (4.30-5.90) m/uL Hgb 7.8 L (13.0-17.5) gm/dL Hct 24.4 L (39.0-53.0) % RDW 18.6 H (11.5-15.5) % Plt Count 490 H (150-450) k/uL Neutrophils # 11.4 H (1.3-7.7) k/uL Monocytes # 1.2 H (0-1.0) k/uL Sodium 136 L (137-145) mmol/L BUN 24 H (9-20) mg/dL Glucose 152 H (74-99) mg/dL POC Glucose (mg/dL) 148 H (75-99) mg/dL Calcium 8.3 L (8.4-10.2) mg/dL C-Reactive Protein 88.7 H (<10.0) mg/L Total Protein 5.4 L (6.3-8.2) g/dL Albumin 2.9 L (3.5-5.0) g/dL 09/01/19 Range/Units 11:43 WBC (3.8-10.6) k/uL RBC (4.30-5.90) m/uL Hgb (13.0-17.5) gm/dL Hct (39.0-53.0) % RDW (11.5-15.5) % Plt Count (150-450) k/uL Neutrophils # (1.3-7.7) k/uL Monocytes # (0-1.0) k/uL Sodium (137-145) mmol/L BUN (9-20) mg/dL Glucose (74-99) mg/dL POC Glucose (mg/dL) 233 H (75-99) mg/dL Calcium (8.4-10.2) mg/dL C-Reactive Protein (<10.0) mg/L Total Protein (6.3-8.2) g/dL Albumin (3.5-5.0) g/dL Microbiology - Last 24 Hours (Table) 08/29/19 10:28 Urine Culture - Final Urine,Voided Pseudomonas aeruginosa Assessment and Plan Plan: Assessment: 1. Symptomatic multivessel coronary artery disease with history of stent placement to his right coronary artery in 2014, status post triple-vessel steven nary artery bypass grafting surgery 2. Unstable angina 3. Ischemic cardiomyopathy with a preoperative ejection fraction of 40-45% 4. Hypertension 5. Dyslipidemia 6. 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 Remote history of tobacco dependence, quit 25 years ago 8. Family history of early onset coronary artery disease with his father diagnosed in his early 50s 9. Daily marijuana use #10 postoperative anemia Plan From cardiology's perspective, we'll recommend the patient continue his current medications. Continue the use of his incentive spirometry. Planning for possible discharge home today with [facility]. DNP note has been reviewed, I agree with a documented findings and plan of care. Patient was seen and examined.
--- NOTE | 2019-09-01 15:07 | P.DS ---
Providers Date of admission: 08/23/19 05:35 Expected date of discharge: 09/01/19 Attending physician: Cris Denson Consults: 08/23/19 16:26 Consult Physician Routine Consulting Provider: Dionicio Hector Consult Reason/Comments: Clinical Lab Technologist Consult: post cardiac surgery Do you want consulting provider notified?: Yes Consult Physician Routine Consulting Provider: Donovan Hua Consult Reason/Comments: [place] Former Consult: post cardiac surgery Do you want consulting provider notified?: Yes Consult Physician Routine Consulting Provider: Shalom Velásquez Consult Reason/Comments: Medical/Diabetic management Do you want consulting provider notified?: Yes Primary care physician: Dexter Ji [facility] Course: FINAL DIAGNOSIS: 1. Symptomatic multivessel coronary artery disease with history of stent placement to his right coronary artery in 2014, status post triple-vessel coronary artery bypass grafting surgery 2. Unstable angina 3. Ischemic cardiomyopathy with a preoperative ejection fraction of 40-45% 4. Hypertension 5. Dyslipidemia 6. 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 Remote history of tobacco dependence, quit 25 years ago 8. Family history of early onset coronary artery disease with his father diagnosed in his early 50s 9. Daily marijuana use 10. Postoperative acute blood loss anemia, an expected outcome of surgery due to cardiopulmonary bypass and hemodilution 11. Postoperative paroxysmal atrial fibrillation, an unexpected potential ou tcome of surgery 12. Postoperative urinary tract infection, with culture positive for pseudomonas aeruginosa PRINCIPAL PROCEDURE: 1. Triple vessel coronary artery bypass grafting using the left internal mammary artery to left anterior descending coronary artery, the left radial artery from the aorta to the second obtuse marginal coronary artery, a reverse greater saphenous vein graft from the aorta to the posterior descending coronary artery. 2. Endoscopic harvesting of the left radial artery. 3. Endoscopic harvesting of the left greater saphenous vein from the groin just below the knee level. 4. Intraoperative transesophageal echocardiogram. 5. Intraoperative epi-aortic scanning. 6. Intraoperative graft flow measurements using the [employer] system. HISTORY OF PRESENT ILLNESS: This is a 64-year-old gentleman who is followed by Dr. Dexter Ji on an outpatient basis. He is a past medical history is significant for coronary artery disease with history of stent placement to his right coronary artery in 2014, hypertension, hyperlipidemia, daily marijuana use, remote history of nicotine dependence quit smoking 25 years ago, chronic lower back pain, insulin-dependent diabetes mellitus type 2 with a preoperative hemoglobin A1c of 8.0 and a family history of early onset coronary artery disease with his dad being diagnosed in his early 50s with heart disease. Recently, the patient was admitted to the hospital in 08/11/2019 with complaints of sternal chest pain with radiation down both of his arms, associated with shortness of breath, nausea and vomiting. During his admission on 08/11/2019 he did have negative serial troponins. Due to the patient's history of coronary artery disease and presenting symptoms a 2-D echocardiogram was completed which showed an overall left ventricular systolic function to be mild to moderately impaired with an ejection fraction between 40 and 45%, and trace to mild pulmonic valve regurgitation. He was subsequently seen by Dr. Hua from cardiology and the patient underwent a cardiac catheterization which demonstrated a totally occluded distal right coronary artery, a 60% ostial circumflex stenosis, a 90% stenosis of the distal circumflex coronary artery, a 70% stenosis to his mid left anterior descending coronary artery and a 70% stenosis to his diagonal coronary artery. Due to the findings on the cardiac catheterization a consult was placed to Dr. Cris Denson for further evaluation and recommendations regarding myocardial revascularization surgery. Dr. Denson did meet with the patient, discussed the findings on the cardiac catheterization films, discussed his treatment options including myocardial revascularization surgery along with the risks and benefits and including the STS risk score. Knowing the risks of myocardial revascularization surgery the patient wished to proceed with the surgical option. The patient was subsequently discharged home on 08/15/2019 and was scheduled for myocardial revascularization surgery on an elective basis on 08/23/2019. HOSPITAL COURSE: The patient was admitted to the hospital, a consent was obtained and he was brought to the preoperative area on 08/23/2019, prepared in the usual fashion and subsequently taken to the operating room where Dr. Cris Denson performed a triple-vessel coronary artery bypass grafting using the left internal mammary artery to left anterior descending coronary artery, the left ra dial artery from the aorta to the second obtuse marginal coronary artery, a reverse greater saphenous vein graft from the aorta to the posterior descending coronary artery, endoscopic harvesting of the left radial artery and the left greater saphenous vein from the groin to just below the knee level, intraoperative transesophageal echocardiogram, epi-aortic scanning and graft flow measurements using the [employer] system. Upon completion of the surgery the patient was transferred to the cardiovascular intensive care unit where he was recovered, monitored hemodynamically and where he progressed cardiac rehabilitation phase 1. He was extubated, all lines, tubes and supportive drips were discontinued when appropriate and he was transferred to the cardiac stepdown unit for further monitoring and rehabilitation. His oxygen was titrated down, he will continue to work with physical and occupational therapy, he was tolerating an oral diet, his pain was well controlled and he was ready to be discharged home with [facility] on postoperative day #9. He has received written and verbal instructions regarding his medications, activity restrictions, signs and symptoms requiring physician notification and his follow-up appointment. He is also been instructed to check his blood sugars before meals and at bedtime and to keep a log of his blood sugars to bring to his follow-up appointment for review by Dr. Dexter Ji. COMPLICATIONS: His postoperative recovery was complicated by paroxysmal atrial fibrillation and a urinary tract infection with culture positive for pseudomonas aeruginosa's which were treated accordingly. CONSULTATIONS: 1. Dr. Hua for cardiology management. 2. Dr. Velásquez for medical and diabetic management. 3. Dr. Hector for pulmonary and ventilator management. DISCHARGE INSTRUCTIONS: 1. No driving for 4 weeks, or until physician gives their ok. 2. The patient should sleep in their own bed, no medical bed needed. 3. Stairs are not an issue. If the bedroom is upstairs, it is advised that the patient go up at night and down in the morning for the first week. Go slowly, using handrail and take 1 step at a time. 4. YOSSI hose are to be worn for 30 days or until physician discontinues. 5. Heart hugger is to be worn 100% of the time until physician discontinues.(except when showering) 6. No lifting, pushing, or pulling more than 10 pounds for 12 weeks. The physician will advise of any restriction changes. 7. The patient is expected to continue the prescribed walking program. 8. Continue pain control per as needed orders. 9. Continue with incentive spirometry and splinting/heart hugger until oth erwise directed by the physician. 10. Must shower daily using liquid antibacterial soap and a separate white washcloth for each individual incision. 11. Routine sternal incision care. No powders, lotions, ointments on incisions. No dressings are necessary on incisions unless they are draining. Dermabond tape is to remain on sternal incision until surgeon follow-up. 12. Please call surgeon/[employer] for temp greater than 101 F or purulent drainage from incisions. 13. All prescriptions given by surgeon for 30 days. Refills need to be filled through thermal molder/primary care physician. 14. A Red armband has been placed on the patient. It should be worn for 30 days post surgery and will be removed by the cardiac surgeons. If an ER visit is necessary, please make sure the number on the Red armband is called. 15. You have been referred to and are expected to begin Cardiac Rehab in approximately 4-6 weeks. 16. Please check your blood sugars before meals and at bedtime, keep a record of your blood sugars and bring a copy of the blood sugar record to your follow- up appointment with Dr. Ji. If your blood sugars are are consistently over 180 mg/dL please call Dr. Ji for further instructions regarding blood sugar control. 17. Change dressing to his distal sternal incision twice a day and when necessary. Using 4 x 4 folded gauze and secure with tape. HOME HEALTH SERVICES TO PROVIDE: RN SKILLED HOME CARE SERVICES FOR POST-OP SURGICAL PATIENTS WITH THE FOLLOWING: Coronary Artery Bypass Surgery (CABG), Mitral Valve Replacement/Repair ( MVR), Aortic Valve Replacement/Repair (AVR) RN TO CONTINUE EDUCATION FROM ``ROAD TO A HEALTH HEART PATIENT EDUCATION MANUAL (GIVEN TO PATIENT IN THE HOSPITAL) MEDICATION RECONCILIATION WITH EDUCATION NEEDED ON FIRST HOME VISIT EMPHASIZE IMPORTANCE OF WEARING BREAST SUPPORT/HEART HUGGER ENCOURAGE USE OF INCENTIVE SPIROMETER 10 X EVERY HOUR WHILE AWAKE ENCOURAGE UTILIZATION OF LOWER EXTREMITY COMPRESSION STOCKINGS/YOSSI HOSE and ELEVATE LEGS ABOVE LEVEL OF HEART WHILE AT REST. ENCOURAGE AMBULATION 3-5x/day INCREASING TOLERATES, WHILE AVOIDING EXTREMES IN TEMPERATURE FREQUENCY: RN TO OPEN THE PATIENT WITHIN 24 HOURS OF DISCHARGE FROM THE HOSPITAL WITH TELEHEALTH INSTALLED AT [facility] [place], RN TO VISIT 2-3 X A WEEK FOR 4 WEEKS ESTABLISHED BY PATIENT NEEDS. LABORATORY: CBC, CMP TO BE DRAWN ON THE THIRD DAY HOME, (RAN STAT) FAX RESULTS TO [phone]. TELEHEALTH PARAMETERS: WEIGHT: NOTIFY MD OF WEIGHT GAIN OF 2 LBS IN 24 HOURS OR 5 LBS IN ONE WEEK HR: NOTIFY MD OF HR <55 BPM OR HR>100 BPM BP: NOTIFY MD IF BP <90/55 OR BP>140/100 O2 SAT: NOTIFY MD IF PO2<93% ON ROOM AIR SEND TELEHEALTH REPORT TO CALL CENTER PROFESSIONAL AND CARDIOVASCULAR SURGEON THE FIRST WEEK OF CARE AND THEN BI-WEEKLY. PLEASE ADDITIONALLY COMMUNICATE ANY ABNORMALS AND NEW FINDINGS TO THE SURGEONS OFFICE. For any questions or concerns please call [employer] Don @ Plan - Discharge Summary Discharge Rx Participant: Yes New Discharge Prescriptions: New Aspirin 325 mg PO DAILY #30 tab Amiodarone [Cordarone] 200 mg PO DAILY #7 tab Losartan [Cozaar] 25 mg PO DAILY #30 tab Potassium Chloride ER [K-Dur 10] 10 meq PO DAILY #5 tab.er.prt Furosemide [Lasix] 20 mg PO DAILY #5 tab Levofloxacin [Levaquin] 500 mg PO Q24H #7 tab Atorvastatin [Lipitor] 40 mg PO DAILY #30 tab Metoprolol Tartrate [Lopressor] 100 mg PO BID #120 tab amLODIPine [Norvasc] 5 mg PO DAILY #30 tab Clopidogrel [Plavix] 75 mg PO DAILY #30 tab Pantoprazole [Protonix] 40 mg PO AC-BRKFST #30 tablet. Sennosideharitha-Docusate Sodium [Senokot-S] 2 each PO HS #14 tab INSULIN ASPART (NovoLOG) [NovoLOG (formulary)] 0 unit SQ ACHS 30 Days #2 vial Continue DULoxetine HCL [Cymbalta] 60 mg PO DAILY capsule. oxyCODONE ER [OxyCONTIN] 80 mg PO BID tab.er.12h oxyCODONE-APAP 5-325MG [Percocet 5-325 mg] 1 tab PO BID Changed Insulin Glargine,Hum.rec.anlog [Basaglar Kwikpen U-100] 18 unit SQ HS #0 Discontinued amLODIPine [Norvasc] 10 mg PO DAILY #30 tab glipiZIDE [Glipizide] 5 mg PO BID cloNIDine HCL [Catapres] 0.1 mg PO BID Atorvastatin [Lipitor] 40 mg PO DAILY Aspirin EC [Ecotrin Low Dose] 81 mg PO DAILY Nadolol [Corgard] 20 mg PO BID #60 tab Isosorbide Mononitrate ER [Imdur] 60 mg PO DAILY #30 tab.er.24h Nitroglycerin Sl Tabs [Nitrostat] 0.4 mg SUBLINGUAL Q5M PRN #30 tab PRN Reason: Chest Pain Lisinopril [Zestril] 10 mg PO DAILY #30 tab metFORMIN HCL [Glucophage] 500 mg PO BID Discharge Medication List DULoxetine HCL [Cymbalta] 60 mg PO DAILY capsule. 08/15/19 [Rx] oxyCODONE ER [OxyCONTIN] 80 mg PO BID tab.er.12h 08/15/19 [Rx] oxyCODONE-APAP 5-325MG [Percocet 5-325 mg] 1 tab PO BID 08/19/19 [History] Amiodarone [Cordarone] 200 mg PO DAILY #7 tab 09/01/19 [Rx] Aspirin 325 mg PO DAILY #30 tab 09/01/19 [Rx] Atorvastatin [Lipitor] 40 mg PO DAILY #30 tab 09/01/19 [Rx] Clopidogrel [Plavix] 75 mg PO DAILY #30 tab 09/01/19 [Rx] Furosemide [Lasix] 20 mg PO DAILY #5 tab 09/01/19 [Rx] INSULIN ASPART (NovoLOG) [NovoLOG (formulary)] 0 unit SQ ACHS 30 Days #2 vial 09/01/19 [Rx] Insulin Glargine,Hum.rec.anlog [Basaglar Kwikpen U-100] 18 unit SQ HS #0 09/01/19 [Rx] Levofloxacin [Levaquin] 500 mg PO Q24H #7 tab 09/01/19 [Rx] Losartan [Cozaar] 25 mg PO DAILY #30 tab 09/01/19 [Rx] Metoprolol Tartrate [Lopressor] 100 mg PO BID #120 tab 09/01/19 [Rx] Pantoprazole [Protonix] 40 mg PO AC-BRKFST #30 tablet. 09/01/19 [Rx] Potassium Chloride ER [K-Dur 10] 10 meq PO DAILY #5 tab.er.prt 09/01/19 [Rx] Sennosides-Docusate Sodium [Senokot-S] 2 each PO HS #14 tab 09/01/19 [Rx] amLODIPine [Norvasc] 5 mg PO DAILY #30 tab 09/01/19 [Rx] Follow up Appointment(s)/Referral(s): Cris Denson MD [STAFF PHYSICIAN] - 09/23/19 10:00 am Mervat Graf NPC [Nurse Practitioner] - 09/14/19 2:30 pm Suresh Healy NPC [Nurse Practitioner] - 09/09/19 10:[address] [facility], [NON-STAFF] - Donovan Hua MD [STAFF PHYSICIAN] - 09/09/19 2:30 pm Dexter Ji DO [Primary Care Provider] - 1 Week Ambulatory/Diagnostic Orders: Complete Blood Count w/diff [LAB.AMB] Time Frame: 09/05/19, Facility: [facility], Location: Laboratory [facility] Comprehensive Metabolic Panel [LAB.AMB] Time Frame: 09/05/19, Facility: [facility], Location: Laboratory [facility] Activity/Diet/Wound Care/Special Instructions: DISCHARGE INSTRUCTIONS: 1. No driving for 4 weeks, or until physician gives their ok. 2. The patient should sleep in their own bed, no medical bed needed. 3. Stairs are not an issue. If the bedroom is upstairs, it is advised that the patient go up at night and down in the morning for the first week. Go slowly, using handrail and take 1 step at a time. 4. YOSSI hose are to be worn for 30 days or until physician discontinues. 5. Heart hugger is to be worn 100% of the time until physician discontinues.(except when showering) 6. No lifting, pushing, or pulling more than 10 pounds for 12 weeks. The physician will advise of any restriction changes. 7. The patient is expected to continue the prescribed walking program. 8. Continue pain control per as needed orders. 9. Continue with incentive spirometry and splinting/heart hugger until otherwise directed by the physician. 10. Must shower daily using liquid antibacterial soap and a separate white washcloth for each individual incision. 11. Routine sternal incision care. No powders, lotions, ointments on incisions. No dressings are necessary on incisions unless they are draining. Dermabond tape is to remain on sternal incision until surgeon follow-up. 12. Please call surgeon/[employer] for temp greater than 101 F or purulent drainage from incisions. 13. All prescriptions given by surgeon for 30 days. Refills need to be filled through thermal molder/primary care physician. 14. A Red armband has been placed on the patient. It should be worn for 30 days post surgery and will be removed by the cardiac surgeons. If an ER visit is necessary, please make sure the number on the Red armband is called. 15. You have been referred to and are expected to begin Cardiac Rehab in approximately 4-6 weeks. 16. Please check your blood sugars before meals and at bedtime, keep a record of your blood sugars and bring a copy of the blood sugar record to your follow- up appointment with Dr. Ji. If your blood sugars are are consistently over 180 mg/dL please call Dr. Ji for further instructions regarding blood sugar control. 17. Change dressing to his distal sternal incision twice a day and when necessary. Using 4 x 4 folded gauze and secure with tape. HOME HEALTH SERVICES TO PROVIDE: RN SKILLED HOME CARE SERVICES FOR POST-OP SURGICAL PATIENTS WITH THE FOLLOWING: Coronary Artery Bypass Surgery (CABG), Mitral Valve Replacement/Repair ( MVR), Aortic Valve Replacement/Repair (AVR) RN TO CONTINUE EDUCATION FROM ``ROAD TO A HEALTH HEART PATIENT EDUCATION MANUAL (GIVEN TO PATIENT IN THE HOSPITAL) MEDICATION RECONCILIATION WITH EDUCATION NEEDED ON FIRST HOME VISIT EMPHASIZE IMPORTANCE OF WEARING BREAST SUPPORT/HEART HUGGER ENCOURAGE USE OF INCENTIVE SPIROMETER 10 X EVERY HOUR WHILE AWAKE ENCOURAGE UTILIZATION OF LOWER EXTREMITY COMPRESSION STOCKINGS/YOSSI HOSE and ELEVATE LEGS ABOVE LEVEL OF HEART WHILE AT REST. ENCOURAGE AMBULATION 3-5x/day INCREASING TOLERATES, WHILE AVOIDING EXTREMES IN TEMPERATURE FREQUENCY: RN TO OPEN THE PATIENT WITHIN 24 HOURS OF DISCHARGE FROM THE HOSPITAL WITH TELEHEALTH INSTALLED AT [facility] [place], RN TO VISIT 2-3 X A WEEK FOR 4 WEEKS ESTABLISHED BY PATIENT NEEDS. LABORATORY: CBC, CMP TO BE DRAWN ON THE THIRD DAY HOME, (RAN STAT) FAX RESULTS TO [phone]. TELEHEALTH PARAMETERS: WEIGHT: NOTIFY MD OF WEIGHT GAIN OF 2 LBS IN 24 HOURS OR 5 LBS IN ONE WEEK HR: NOTIFY MD OF HR <55 BPM OR HR>100 BPM BP: NOTIFY MD IF BP <90/55 OR BP>140/100 O2 SAT: NOTIFY MD IF PO2<93% ON ROOM AIR SEND TELEHEALTH REPORT TO CALL CENTER PROFESSIONAL AND CARDIOVASCULAR SURGEON THE FIRST WEEK OF CARE AND THEN BI-WEEKLY. PLEASE ADDITIONALLY COMMUNICATE ANY ABNORMALS AND NEW FINDINGS TO THE SURGEONS OFFICE. For any questions or concerns please call MOJGAN Moscoso @ Discharge Disposition: HOME WITH HOME HEALTH SERVICES
[2019-09-01 16:10] VITALS: BP 160/73; PULSE 63; RESP 18
[2019-09-02] MEDS ORDERED: FUROSEMIDE 20 MG TAB PO SCH (09:00)
[2019-09-02] MEDS ORDERED: POTASSIUM CHLORIDE ER 10 MEQ TAB.ER.PRT PO SCH (09:00)
--- NOTE | 2019-09-03 09:04 | CDI ---
Documentation Clarification Form Date: 09/03/19 From: Sridevi Ruiz Phone: If you have a question about this query, please contact Mackenzie Garcia Transition Teacher at [phone] between 8am and 5pm. Admit Date: 08/23/19 Discharge Date:09/01/19 Patient Name: Ashok Austin Visit Number: [id number] ATTENTION: The Clinical Documentation Specialists (CDI) and [facility] Coding Staff appreciate your assistance in clarifying documentation. Please respond to the clarification below the line at the bottom and electronically sign. The CDI & [facility] [employer] Coding staff will review the response and follow-up if needed. Please note: Queries are made part of the Legal Health Record. If you have any questions, please contact the author of this message via ITS. Dear Dr. Velásquez Change in mental status was documented in your 08/25 progress note. History/Risk Factors: CAD with unstable angina status post CABG, DM poorly controlled, postoperative atrial fib, postoperative acute blood loss anemia Clinical Indicators: mental status change Labs: Hgb 7.6, Hct 22.1, WBC 24.9, Plt 125 X Ray: Correlate for volume overload, congestive heart failure Treatment: Your documentation states that pain medication is being adjust by Cardiothoracic surgery. In your professional opinion, please clarify the etiology of the Altered Mental Status, if known. Delirium (specify cause): Dementia (if know, specify Type and if with/without Behavioral Disturbance) Encephalopathy (specify Type and Underlying Medical Illness) Other condition (please specify) Unable to determine Delirium (specify cause): __medication related MTDD
--- NOTE | 2019-09-05 08:12 | CDI ---
Documentation Clarification Form Date: 09/05/2019 08:00:10 AM From: Mary James Phone: Admit Date: 08/23/2019 05:35:00 AM Patient Name: Ashok Austin Visit Number: [id number] Discharge Date: 09/01/2019 05:13:00 PM ATTENTION: The Clinical Documentation Specialists (CDI) and [facility] Coding Staff appreciate your assistance in clarifying documentation. Please respond to the clarification below the line at the bottom and electronically sign. The CDI & [facility] Coding staff will review the response and follow-up if needed. Please note: Queries are made part of the Legal Health Record. If you have any questions, please contact the author of this message via ITS. Dr. Cris Denson: Per the 08/31 Discharge Summary, the following is documented: "His postoperative recovery was complicated by paroxysmal atrial fibrillation and a urinary tract infection with culture positive for pseudomonas aeruginosa's which were treated accordingly. Patients Admitting Diagnosis: CAD Post-Operative Diagnosis: Symptomatic multivessel coronary artery disease with history of stent placement to his right coronary artery in 2014, status post triple-vessel coronary artery bypass grafting surgery. Unstable angina. Ischemic cardiomyopathy with a preoperative ejection fraction of 40-45%. Hypertension. Dyslipidemia. Procedure performed 08/22: Triple vessel coronary artery bypass grafting using the left internal mammary artery to left anterior descending coronary artery, the left radial artery from the aorta to the second obtuse marginal coronary artery, a reverse greater saphenous vein graft from the aorta to the posterior descending coronary artery. History/Risk Factors: CAD, Ischemic cardiomyopathy, Hyperension, Dyslipidemia, Poorly controlled IDDM, Former smoker, Family history of early onset CAD. Clinical Indicators: A urinary tract infection is documented beginning with the 08/30 Pulmonary Progress Note. Treatment: Postoperative started on IV Cefazolin, po Levaquin started 08/30. Elliott catheter discontinued on 08/28, Discharged on po Levaquin In order to accurately reflect this patients severity of illness, please clarify if the UTI: Is a unexpected complication of surgical procedure Is an expected outcome of the surgical procedure UTI related to Elliott catheter UTI unrelated to Elliott catheter Other please specify: Unable to determine (Last Revision: April 2019) MTDD
--- NOTE | 2019-09-16 08:17 | CDI ---
Documentation Clarification Form Date: 09/05/2019 08:00:00 AM From: Mary James CCS, CCDS Admit Date: 08/23/2019 05:35:00 AM Patient Name: Ashok Austin Visit Number: [id number] Discharge Date: 09/01/2019 05:13:00 PM ATTENTION: The Clinical Documentation Specialists (CDI) and [facility] Coding Staff appreciate your assistance in clarifying documentation. Please respond to the clarification below the line at the bottom and electronically sign. The CDI & [facility] Coding staff will review the response and follow-up if needed. Please note: Queries are made part of the Legal Health Record. If you have any questions, please contact the author of this message via ITS. Dr. Cris Denson: Please document your response prior to signing this query. Per the 08/31 Discharge Summary, the following is documented: "His postoperative recovery was complicated by paroxysmal atrial fibrillation and a urinary tract infection with culture positive for pseudomonas aeruginosa's which were treated accordingly." Patients Admitting Diagnosis 08/22: CAD Post-Operative Diagnosis: Symptomatic multivessel coronary artery disease with history of stent placement to his right coronary artery in 2014, status post triple-vessel coronary artery bypass grafting surgery. Unstable angina. Ischemic cardiomyopathy with a preoperative ejection fraction of 40-45%. Hypertension. Dyslipidemia. Procedure performed 08/22: Triple vessel coronary artery bypass. History/Risk Factors: CAD, Ischemic cardiomyopathy, Hyperension, Dyslipidemia, Poorly controlled IDDM, Former smoker, Family history of early onset CAD. Clinical Indicators: A urinary tract infection is documented beginning with the 08/30 Pulmonary Progress Note. UA: 08/28: Lt Yellow, clear, Trace Protein, Trace Blood, Mod Esterase, RBC 7, WBC 12 Treatment: Postoperative started on IV Cefazolin, po Levaquin started 08/30. Elliott catheter discontinued on 08/28, Discharged on po Levaquin In order to accurately reflect this patients severity of illness, please clarify if the UTI: Is a unexpected complication of surgical procedure Is an expected outcome of the surgical procedure UTI related to Elliott catheter UTI unrelated to Elliott catheter Other please specify: Unable to determine (Last Revision: April 2019) UTI unable to determine causative relationship MTDD
== END 2019-09-01 17:13 | disposition home health service (06) | DRG 236 ==
LOC: 2ORMAIN 05:35 → 2SICU 16:56 → 3SCARD 08-27 15:08
PROVIDERS: ADMIT Surgery; ATTEND Surgery
PROC: 03BC4ZZ Excision of Left Radial Artery, Percutaneous Endoscopic Approach (ICD-10-PCS; principal; 2019-08-23 08:00)
PROC: 021009W Bypass Coronary Artery, One Artery from Aorta with Autologous Venous Tissue, Open Approach (ICD-10-PCS; principal; 2019-08-23 08:00)
PROC: B24BZZ4 Ultrasonography of Heart with Aorta, Transesophageal (ICD-10-PCS; principal; 2019-08-23 08:00)
PROC: 02100Z9 Bypass Coronary Artery, One Artery from Left Internal Mammary, Open Approach (ICD-10-PCS; principal; 2019-08-23 08:00)
PROC: 02100AW Bypass Coronary Artery, One Artery from Aorta with Autologous Arterial Tissue, Open Approach (ICD-10-PCS; principal; 2019-08-23 08:00)
PROC: 06BQ4ZZ Excision of Left Saphenous Vein, Percutaneous Endoscopic Approach (ICD-10-PCS; principal; 2019-08-23 08:00)
PROC: 5A1221Z Performance of Cardiac Output, Continuous (ICD-10-PCS; principal; 2019-08-23 08:00)
PROC: 30243N1 Transfusion of Nonautologous Red Blood Cells into Central Vein, Percutaneous Approach (ICD-10-PCS; 2019-08-23 08:00)
PROC: 02HQ32Z Insertion of Monitoring Device into Right Pulmonary Artery, Percutaneous Approach (ICD-10-PCS; 2019-08-23 08:00)
PROC: 4A133B3 Monitoring of Arterial Pressure, Pulmonary, Percutaneous Approach (ICD-10-PCS; 2019-08-23 08:00)
DX: I25.110 Atherosclerotic heart disease of native coronary artery with unstable angina pectoris (principal); D62 Acute posthemorrhagic anemia; J98.11 Atelectasis; I97.190 Other postprocedural cardiac functional disturbances following cardiac surgery; N39.0 Urinary tract infection, site not specified; E11.649 Type 2 diabetes mellitus with hypoglycemia without coma; I25.82 Chronic total occlusion of coronary artery; I11.9 Hypertensive heart disease without heart failure; B96.5 Pseudomonas (aeruginosa) (mallei) (pseudomallei) as the cause of diseases classified elsewhere; E11.65 Type 2 diabetes mellitus with hyperglycemia; E78.5 Hyperlipidemia, unspecified; R41.0 Disorientation, unspecified; T50.905A Adverse effect of unspecified drugs, medicaments and biological substances, initial encounter; E87.6 Hypokalemia; G89.4 Chronic pain syndrome; I25.2 Old myocardial infarction; I25.5 Ischemic cardiomyopathy; M47.9 Spondylosis, unspecified; I48.0 Paroxysmal atrial fibrillation; D72.829 Elevated white blood cell count, unspecified; K29.00 Acute gastritis without bleeding; T81.82XA Emphysema (subcutaneous) resulting from a procedure, initial encounter; Z79.4 Long term (current) use of insulin; Z79.82 Long term (current) use of aspirin; Z79.899 Other long term (current) drug therapy; Z87.891 Personal history of nicotine dependence; Z95.5 Presence of coronary angioplasty implant and graft; Z82.49 Family history of ischemic heart disease and other diseases of the circulatory system; Z83.3 Family history of diabetes mellitus; Y83.2 Surgical operation with anastomosis, bypass or graft as the cause of abnormal reaction of the patient, or of later complication, without mention of misadventure at the time of the procedure
CPT/HCPCS: 36415; 71045; 71046; 80048; 80053; 81001; 82330; 82805; 83735; 84132; 85025; 85027; 85384; 85520; 85610; 85730; 86140; 86850; 86891; 86900; 86901; 86920; 87077; 87086; 87186; 94002; 94003; 94640; 94760

== ENCOUNTER 2019-09-16 06:20 | Observation (INO) | payer MEDICARE, OTHER ==
--- NOTE | 2019-09-16 06:32 | ED ---
SOB HPI <Dionicio Ribera - Last Filed: 09/16/19 08:32> - General Source: patient Mode of arrival: ambulatory Limitations: no limitations <Jenise Davis - Last Filed: 09/16/19 08:47> - General Chief Complaint: Shortness of Breath Stated Complaint: SOB Time Seen by Provider: 09/16/19 06:24 - History of Present Illness Initial Comments: 64yo male with history of IDDM, HTN, HLD, CABG 3 weeks ago performed by Dr. Denson presenting today for cc of SOB x 3.5 hours. Patient sates that he has had SOB since 3AM he states it seems to be getting better but still feels "stuffy" stating he feels like he cant take a full deep breath. Denies pleurtic chest pain, thoracic back pain, chest pain, nausea, vomiting, jaw or arm pain,. Denies leg swelling or positional SOB. Denies bloody or dark stools. Denies cough, fever, congestion or URI symptoms. Patient denies additional complaints. Upon arrival patient VS within acceptable limits. (Jenise Davis) - Related Data Home Medications Medication Instructions Recorded Confirmed INSULIN ASPART (NovoLOG) [NovoLOG See Protocol SQ ACHS 09/16/19 09/16/19 (formulary)] Sennosides-Docusate Sodium 2 tab PO HS 09/16/19 09/16/19 [Senokot-S] oxyCODONE HCL [oxyCODONE HCL ER] 15 mg PO Q12H 09/16/19 09/16/19 Previous Rx's Medication Instructions Recorded DULoxetine HCL [Cymbalta] 60 mg PO DAILY capsule. 08/15/19 oxyCODONE ER [OxyCONTIN] 80 mg PO BID tab.er.12h 08/15/19 Aspirin 325 mg PO DAILY #30 tab 09/01/19 Atorvastatin [Lipitor] 40 mg PO DAILY #30 tab 09/01/19 Clopidogrel [Plavix] 75 mg PO DAILY #30 tab 09/01/19 Insulin Glargine,Hum.rec.anlog 18 unit SQ HS #0 09/01/19 [Basaglar Kwikpen U-100] Losartan [Cozaar] 25 mg PO DAILY #30 tab 09/01/19 Metoprolol Tartrate [Lopressor] 100 mg PO BID #120 tab 09/01/19 Pantoprazole [Protonix] 40 mg PO MICHA-BRKFST #30 tablet. 09/01/19 amLODIPine [Norvasc] 5 mg PO DAILY #30 tab 09/01/19 Allergies Allergy/AdvReac Type Severity Reaction Status Date / Time No Known Allergies Allergy Verified 09/16/19 07:24 Review of Systems ROS Other: All systems not noted in ROS Statement are negative. <Dionicio Ribera - Last Filed: 09/16/19 08:32> ROS Other: All systems not noted in ROS Statement are negative. <Jenise Davis - Last Filed: 09/16/19 08:47> ROS Statement: Those systems with pertinent positive or pertinent negative responses have been documented in the HPI. Past Medical History Past Medical History: Coronary Artery Disease (CAD), Chest Pain / Angina, Diabetes Mellitus, Hyperlipidemia, Hypertension Additional Past Medical History / Comment(s): Other HX: Chronic lower back pain and bilateral leg pain, Last Myocardial Infarction Date:: 03/20/2015 History of Any Multi-Drug Resistant Organisms: None Reported Past Surgical History: Back Surgery, Coronary Bypass/CABG, Heart Catheterization With Stent, Orthopedic Surgery Additional Past Surgical History / Comment(s): knee, ankle surgery-pt believes it was his R ankle. pt states he has a total of 5 heart stents Past Anesthesia/Blood Transfusion Reactions: No Reported Reaction Additional Past Anesthesia/Blood Transfusion Reaction / Comment(s): recieved b lood after severe nose bleed, needed to be cauterized after recieving too much aspirin. Date of Last Stent Placement:: 02/2015 Past Psychological History: No Psychological Hx Reported Smoking Status: Former smoker Past Alcohol Use History: None Reported Past Drug Use History: Marijuana - Past Family History Sister(s) Family Medical History: Coronary Artery Disease (CAD), Hypertension Father Family Medical History: Coronary Artery Disease (CAD), Diabetes Mellitus, Deep Vein Thrombosis (DVT), Hypertension Additional Family Medical History / Comment(s): Father at age 58yrs. He of blood clot from leg injury that went to his heart. <Jenise Davis - Last Filed: 09/16/19 08:47> General Exam Limitations: no limitations <Jenise Davis - Last Filed: 06/19/20 08:47> - General Exam Comments Initial Comments: General: The patient is awake and alert, in no distress Eye: Pupils are equal, round and reactive to light, extra-ocular movements are intact. No nystagmus. There is normal conjunctiva bilaterally. No signs of icterus. Ears, nose, mouth and throat: There are moist mucous membranes and no oral lesions. Neck: The neck is supple, there is no tenderness or JVD. Cardiovascular: There is a regular rate and rhythm. No murmur, rub or gallop is appreciated. Respiratory: Lungs are clear to auscultation, respirations are non-labored, breath sounds are equal. No wheezes, stridor, rales, or rhonchi. Gastrointestinal: Soft, non-distended, non-tender abdomen without masses or organomegaly noted. There is no rebound or guarding present. Musculoskeletal: Normal ROM, no tenderness. Strength 5/5. Sensation intact. Radial pulses equal bilaterally 2+. Neurological: A&O x 3. CN II-XII intact grossly, There are no obvious motor or sensory deficits. Coordination appears grossly intact. Speech is normal. Skin: Skin is warm and dry and no rashes or lesions are noted. No LE edema, calf swelling or pain. Psychiatric: Cooperative, appropriate mood & affect, normal judgment. (Jenise Davis) Course <Dionicio Ribera - Last Filed: 09/16/19 08:32> <Jenise Davis - Last Filed: 09/16/19 08:47> Vital Signs 09/16/19 09/16/19 09/16/19 06:21 06:25 07:30 Temperature 98.2 F Pulse Rate 83 73 Respiratory 24 22 18 Rate Blood Pressure 162/80 152/78 O2 Sat by Pulse 99 97 Oximetry - Reevaluation(s) Reevaluation #1: 09/16/19 08:32 PA supervision: I personally evaluate this case. The present with complaints of shortness of breath. He did have a coronary artery bypass done about 3 weeks ago. The patient will be admitted for observation. Assessment and plan. (Dionicio Ribera) Reevaluation #2: Consulted Saida WOOD, who works for Dr. Denson patient's surgeon who is aware of patient case, we discussed lab studies, CXR findings symptoms. Patient denies SOB at this time. Concern for mild CHF exacerbation, feel an observation admission warranted at this time for IV lasix, 40mg given in the ER. Patient agreeable to admission. 09/16/19 08:34 (Jenise Davis) Medical Decision Making - Lab Data Result diagrams: 09/16/19 06:40 09/16/19 06:40 <Dionicio Ribera - Last Filed: 09/16/19 08:32> - Lab Data Result diagrams: 09/16/19 06:40 09/16/19 06:40 <Jenise Davis - Last Filed: 09/16/19 08:47> - Medical Decision Making See reevaluation #2 above. (Jenise Davis) - Lab Data Lab Results 09/16/19 09/16/19 09/16/19 Range/Units 06:40 06:40 06:40 WBC 11.0 H (3.8-10.6) k/uL RBC 4.12 L (4.30-5.90) m/uL Hgb 11.6 L (13.0-17.5) gm/dL Hct 38.7 L (39.0-53.0) % MCV 93.9 D (80.0-100.0) fL MCH 28.3 (25.0-35.0) pg MCHC 30.1 L (31.0-37.0) g/dL RDW 16.4 H (11.5-15.5) % Plt Count 662 H (150-450) k/uL Neutrophils % 81 % Lymphocytes % 9 % Monocytes % 6 % Eosinophils % 3 % Basophils % 1 % Neutrophils # 8.9 H (1.3-7.7) k/uL Lymphocytes # 0.9 L (1.0-4.8) k/uL Monocytes # 0.7 (0-1.0) k/uL Eosinophils # 0.3 (0-0.7) k/uL Basophils # 0.1 (0-0.2) k/uL Hypochromasia Marked Poikilocytosis Slight Anisocytosis Slight PT 9.7 (9.0-12.0) sec INR 0.9 (<1.2) APTT 24.6 (22.0-30.0) sec D-Dimer (<0.60) mg/L FEU Sodium 139 (137-145) mmol/L Potassium 3.1 L (3.5-5.1) mmol/L Chloride 104 (98-107) mmol/L Carbon Dioxide 26 (22-30) mmol/L Anion Gap 9 mmol/L BUN 16 (9-20) mg/dL Creatinine 0.67 (0.66-1.25) mg/dL Est GFR (CKD-EPI)AfAm >90 (>60 ml/min/1.73 sqM) Est GFR (CKD-EPI)NonAf >90 (>60 ml/min/1.73 sqM) Glucose 304 H (74-99) mg/dL Plasma Lactic Acid Chinedu (0.7-2.0) mmol/L Calcium 9.1 (8.4-10.2) mg/dL Magnesium 1.7 (1.6-2.3) mg/dL Total Bilirubin 0.4 (0.2-1.3) mg/dL AST 18 (17-59) U/L ALT 17 (4-49) U/L Alkaline Phosphatase 130 H (38-126) U/L Troponin I (0.000-0.034) ng/mL NT-Pro-B Natriuret Pep pg/mL Total Protein 7.0 (6.3-8.2) g/dL Albumin 3.7 (3.5-5.0) g/dL Urine Color Urine Appearance (Clear) Urine pH (5.0-8.0) Ur Specific [place] (1.001-1.035) Urine Protein (Negative) Urine Glucose (UA) (Negative) Urine Ketones (Negative) Urine Blood (Negative) Urine Nitrite (Negative) Urine Bilirubin (Negative) Urine Urobilinogen (<2.0) mg/dL Ur Leukocyte Esterase (Negative) 09/16/19 09/16/19 09/16/19 Range/Units 06:40 06:40 06:40 WBC (3.8-10.6) k/uL RBC (4.30-5.90) m/uL Hgb (13.0-17.5) gm/dL Hct (39.0-53.0) % MCV (80.0-100.0) fL MCH (25.0-35.0) pg MCHC (31.0-37.0) g/dL RDW (11.5-15.5) % Plt Count (150-450) k/uL Neutrophils % % Lymphocytes % % Monocytes % % Eosinophils % % Basophils % % Neutrophils # (1.3-7.7) k/uL Lymphocytes # (1.0-4.8) k/uL Monocytes # (0-1.0) k/uL Eosinophils # (0-0.7) k/uL Basophils # (0-0.2) k/uL Hypochromasia Poikilocytosis Anisocytosis PT (9.0-12.0) sec INR (<1.2) APTT (22.0-30.0) sec D-Dimer (<0.60) mg/L FEU Sodium (137-145) mmol/L Potassium (3.5-5.1) mmol/L Chloride (98-107) mmol/L Carbon Dioxide (22-30) mmol/L Anion Gap mmol/L BUN (9-20) mg/dL Creatinine (0.66-1.25) mg/dL Est GFR (CKD-EPI)AfAm (>60 ml/min/1.73 sqM) Est GFR (CKD-EPI)NonAf (>60 ml/min/1.73 sqM) Glucose (74-99) mg/dL Plasma Lactic Acid Chinedu 1.5 (0.7-2.0) mmol/L Calcium (8.4-10.2) mg/dL Magnesium (1.6-2.3) mg/dL Total Bilirubin (0.2-1.3) mg/dL AST (17-59) U/L ALT (4-49) U/L Alkaline Phosphatase (38-126) U/L Troponin I 0.022 (0.000-0.034) ng/mL NT-Pro-B Natriuret Pep 1570 pg/mL Total Protein (6.3-8.2) g/dL Albumin (3.5-5.0) g/dL Urine Color Urine Appearance (Clear) Urine pH (5.0-8.0) Ur Specific [place] (1.001-1.035) Urine Protein (Negative) Urine Glucose (UA) (Negative) Urine Ketones (Negative) Urine Blood (Negative) Urine Nitrite (Negative) Urine Bilirubin (Negative) Urine Urobilinogen (<2.0) mg/dL Ur Leukocyte Esterase (Negative) 09/16/19 09/16/19 Range/Units 06:40 08:00 WBC (3.8-10.6) k/uL RBC (4.30-5.90) m/uL Hgb (13.0-17.5) gm/dL Hct (39.0-53.0) % MCV (80.0-100.0) fL MCH (25.0-35.0) pg MCHC (31.0-37.0) g/dL RDW (11.5-15.5) % Plt Count (150-450) k/uL Neutrophils % % Lymphocytes % % Monocytes % % Eosinophils % % Basophils % % Neutrophils # (1.3-7.7) k/uL Lymphocytes # (1.0-4.8) k/uL Monocytes # (0-1.0) k/uL Eosinophils # (0-0.7) k/uL Basophils # (0-0.2) k/uL Hypochromasia Poikilocytosis Anisocytosis PT (9.0-12.0) sec INR (<1.2) APTT (22.0-30.0) sec D-Dimer 5.36 H (<0.60) mg/L FEU Sodium (137-145) mmol/L Potassium (3.5-5.1) mmol/L Chloride (98-107) mmol/L Carbon Dioxide (22-30) mmol/L Anion Gap mmol/L BUN (9-20) mg/dL Creatinine (0.66-1.25) mg/dL Est GFR (CKD-EPI)AfAm (>60 ml/min/1.73 sqM) Est GFR (CKD-EPI)NonAf (>60 ml/min/1.73 sqM) Glucose (74-99) mg/dL Plasma Lactic Acid Chinedu (0.7-2.0) mmol/L Calcium (8.4-10.2) mg/dL Magnesium (1.6-2.3) mg/dL Total Bilirubin (0.2-1.3) mg/dL AST (17-59) U/L ALT (4-49) U/L Alkaline Phosphatase (38-126) U/L Troponin I (0.000-0.034) ng/mL NT-Pro-B Natriuret Pep pg/mL Total Protein (6.3-8.2) g/dL Albumin (3.5-5.0) g/dL Urine Color Light Yellow Urine Appearance Clear (Clear) Urine pH 6.0 (5.0-8.0) Ur Specific [place] 1.015 (1.001-1.035) Urine Protein Trace H (Negative) Urine Glucose (UA) 4+ H (Negative) Urine Ketones Negative (Negative) Urine Blood Negative (Negative) Urine Nitrite Negative (Negative) Urine Bilirubin Negative (Negative) Urine Urobilinogen <2.0 (<2.0) mg/dL Ur Leukocyte Esterase Negative (Negative) - EKG Data EKG Comments: Ventricular rate 83 bpm, MD interval 192 ms, QR christian 112 ms, QT/QTc 412/484 ms. This is normal sinus rhythm with a suspected left anterior fasciular block, no obvious ST elevation or depression appreciated. Nonspecific T wave abnormality. (Jenise Davis) Disposition <Dionicio Ribera - Last Filed: 09/16/19 08:32> Is patient prescribed a controlled substance at d/c from ED?: No Time of Disposition: 08:37 Decision to Admit Reason: Admit from EC Decision Date: 09/16/19 Decision Time: 08:30 <Jenise Davis - Last Filed: 09/16/19 08:47> Clinical Impression: SOB (shortness of breath), Pleural effusion, Elevated brain natriuretic peptide (BNP) level Disposition: ADMITTED IP TO THIS HOSP Condition: Stable
[2019-09-16 06:48] LABS: Anisocytosis Slight; Basophils # (A) 0.1 k/uL (0-0.2); Basophils % (A) 1 %; Eosinophils # (A) 0.3 k/uL (0-0.7); Eosinophils % (A) 3 %; HCT 38.7 % (39.0-53.0); HGB 11.6 gm/dL (13.0-17.5); Hypochromasia Marked; Lymphocytes # (A) 0.9 k/uL (1.0-4.8); Lymphocytes % (A) 9 %; MCH 28.3 pg (25.0-35.0); MCHC 30.1 g/dL (31.0-37.0); Mean Platelet Volume 6.7; Monocytes # (A) 0.7 k/uL (0-1.0); Monocytes % (A) 6 %; Neutrophils # (A) 8.9 k/uL (1.3-7.7); Neutrophils % (A) 81 %; Platelet Count 662 k/uL (150-450); Poikilocytosis Slight; RBC 4.12 m/uL (4.30-5.90); RDW 16.4 % (11.5-15.5)
--- NOTE | 2019-09-16 06:56 | XR ---
EXAMINATION TYPE: XR chest 2V DATE OF EXAM: 09/16/2019 COMPARISON: Chest x-ray September 01, 2019. HISTORY: Recent open cardiac surgery with difficulty breathing. TECHNIQUE: Frontal and lateral views of the chest are obtained. FINDINGS: Post-CABG changes with mediastinal clips and sternal wires is redemonstrated. There is pers istent cardiomegaly with small to tiny bilateral pleural effusions still present seen best on lateral view. Mild central vascular congestion on current study. No new suspicious focal airspace opacity or pneumothorax. The osseous structures are intact. IMPRESSION: Suspect CHF exacerbation or fluid overload status there is cardiomegaly with small to ti ny bilateral pleural effusions and mild central vascular congestion on current study.
[2019-09-16 07:00] LABS: INR 0.9 (<1.2); MCV 93.9 fL (80.0-100.0); Partial Thromboplastin Time 24.6 sec (22.0-30.0); Prothrombin Time 9.7 sec (9.0-12.0)
[2019-09-16 07:01] LABS: ALT 17 U/L (4-49); AST 18 U/L (17-59); African American GFR (CKD) >90 (>60 ml/min/1.73 sqM); Albumin 3.7 g/dL (3.5-5.0); Alkaline Phosphatase 130 U/L (38-126); Anion Gap 9 mmol/L; Blood Urea Nitrogen 16 mg/dL (9-20); Calcium 9.1 mg/dL (8.4-10.2); Carbon Dioxide 26 mmol/L (22-30); Chloride 104 mmol/L (98-107); Glucose 304 mg/dL (74-99); Magnesium 1.7 mg/dL (1.6-2.3); Non-African American GFR(CKD) >90 (>60 ml/min/1.73 sqM); Potassium 3.1 mmol/L (3.5-5.1); Sodium 139 mmol/L (137-145); Total Bilirubin 0.4 mg/dL (0.2-1.3)
[2019-09-16] MEDS ORDERED: INSULIN REGULAR 100 UNIT/ML VIAL SQ ONE (07:08)
[2019-09-16 08:14] LABS: Appearance,Urine Clear (Clear); Bilirubin,Urine Negative (Negative); Blood,Urine Negative (Negative); Color,Urine Light Yellow; Glucose,Urine (UA) 4+ (Negative); Ketones,Urine Negative (Negative); Leukocyte Esterase,Urine Negative (Negative); Nitrite,Urine Negative (Negative); Protein,Urine Trace (Negative); Specific Gravity,Urine 1.015 (1.001-1.035); Urobilinogen,Urine <2.0 mg/dL (<2.0)
--- NOTE | 2019-09-16 08:15 | CT ---
EXAMINATION TYPE: CT chest angio for PE DATE OF EXAM: 09/16/2019 COMPARISON: 08/11/19 HISTORY: Elevated d dimer, SOB, recent CABG CT DLP: 439.7 mGycm CONTRAST: CT chest with contrast and 3D reconstruction with MIP imaging is performed with IV Contrast, patient injected with 100 mL of Isovue 300. Contrast-enhanced CT of the chest was performed through the course of the pulmonary arteries with mack g and mediastinal window settings submitted. 3D reconstruction with MIP imaging was also performed. PULMONARY ARTERIES: The pulmonary arteries and their major tributaries are patent. I do not see violette dence for sizable filling defect to suggest pulmonary embolic process. LUNGS: The lungs are clear and free of infiltrate. No evidence for atelectasis. No pulmonary nodule or mass is detected. Small bilateral pleural effusions noted measuring 3.2 cm AP dimension on the le ft and 1.7 cm on the right. Basilar compressive atelectasis identified. . MEDIASTINUM: Recent postoperative changes of median sternotomy and CABG. Small amount of air and flu id noted within the retrosternal region. Thoracic aorta is of normal caliber,however, evaluation is l imited given timing of the contrast bolus. If there is concern for thoracic aortic pathology conside r MARK. Correlate clinically . The heart is mildly enlarged. No evidence for mediastinal mass. No m ediastinal lymph nodes greater than 1cm. HILAR STRUCTURES: No evidence for mass. No hilar lymph nodes greater than 1 cm. UPPER ABDOMEN: No significant abnormality is seen. IMPRESSION: 1. No evidence for Pulmonary embolism at this time. 2. Bilateral pleural effusions as noted with compressive atelectasis. 3. Changes of recent median sternotomy and CABG several small foci of air and a small amount of fluid within the retrosternal space.
[2019-09-16] MEDS ORDERED: FUROSEMIDE 10 MG/ML 4 ML VIAL IV STA (08:16)
[2019-09-16] MEDS ORDERED: POTASSIUM CHLORIDE ER 10 MEQ TAB.ER.PRT PO STA (08:23)
[2019-09-16] MEDS ORDERED: NALOXONE 0.4 MG/ML 1 ML VIAL IV PRN (08:24)
[2019-09-16] MEDS ORDERED: ACETAMINOPHEN TAB 325 MG TAB PO PRN (10:19)
[2019-09-16] MEDS: DULoxetine HCL 60 MG CAPSULE.DR PO SCH (11:09)
[2019-09-16] MEDS: ASPIRIN 325 MG TAB PO SCH (11:10)
[2019-09-16] MEDS: LOSARTAN 25 MG TAB PO SCH (11:10)
[2019-09-16] MEDS: CLOPIDOGREL 75 MG TAB PO SCH (11:10)
[2019-09-16 11:42] LABS: Glucose,Whole Blood 246 mg/dL (75-99)
[2019-09-16] MEDS ORDERED: amLODIPine 5 MG TAB PO SCH (12:00)
[2019-09-16] MEDS: INSULIN ASPART (NovoLOG) 100 UNIT/ML VIAL SQ SCH ×3 (12:14→21:04)
--- NOTE | 2019-09-16 12:20 | P.GSHP ---
History of Present Illness H&P Date: 09/16/19 Chief Complaint: Shortness of breath This is a 64-year-old gentleman who follows on an outpatient basis with Dr. Dexter Ji. His previous medical history includes symptomatic multivessel coronary artery disease status post stent placement to the right coronary artery in 2014 and triple-vessel coronary artery bypass surgery on 08/23/2019 with postoperative paroxysmal atrial fibrillation and Pseudomonas urinary tract infection, ischemic cardiomyopathy, hypertension, hyperlipidemia, insulin- dependent diabetes mellitus with hemoglobin A1c 8.0, previous tobacco dependen ce, marijuana use, chronic low back pain, and family history of premature coronary artery disease. He was admitted to [facility] in early July with unstable angina. Workup included catheterization and transthoracic echocardiogram. He was found to have multivessel coronary artery disease. He underwent preoperative testing and was discharged home in stable condition to return for elective CABG with Dr. Denson. His triple-vessel CABG was performed on 08/23/2019, his recovery was complicated by paroxysmal atrial fibrillation and Pseudomonas urinary tract infection which were treated accordingly, and he was discharged to home with [facility] home care on postoperative day #9. He has followed up with his primary care physician, production superintendent, nurse practitioner with cardiac surgery, pulmonology, and is scheduled to see Dr. Denson on September 22 at 10 AM. He was seen yesterday by pulmonology, chest x-ray completed demonstrated small left pleural effusion, he had no shortness of breath at that time and has appeared to be recovering without incident. Approximately 3:00 this morning he felt increased shortness of breath and was brought to [facility] emergency room. Chest x-ray was completed demonstrating cardiomegaly with small pleural effusions, left greater than right. Chest CTA was also completed without evidence of pulmonary embolism. EKG demonstrated normal sinus rhythm. He is afebrile, heart rate in the 70s, blood pressure 161/69, and oxygen saturation is 99% on 2 L nasal cannula. WBC 11.0, hemoglobin 11.6, BUN 16, creatinine 0.67, troponin 0.0-2, BNP 1570, urinalysis positive for trace protein and 4+ glucose. IV Lasix was given per the emergency room and patient appears to be resting comfortably. Denies any chest pain, states shortness of breath has slightly improved. He did admit to using salt with his dinner last night. The patient is to be admitted for 23 hour observation. - Review of Systems Comment: Review of systems was completed and was negative except as noted. - Respiratory Respiratory: Reports as per HPI, Reports dyspnea Past Medical History Past Medical History: Atrial Fibrillation, Coronary Artery Disease (CAD), Chest Pain / Angina, Diabetes Mellitus, GERD/Reflux, Hyperlipidemia, Hypertension, Myocardial Infarction (IA) Additional Past Medical History / Comment(s): Pt had CABG 07/2019 and had post op Afib/UTI with pseudomonas aeruginosa, ischemic cardiomyopathy, IDDM type II, past R scrotal abscess with sepsis, chronic lower back pain and bilateral leg pain, Last Myocardial Infarction Date:: 03/20/15 History of Any Multi-Drug Resistant Organisms: None Reported Past Surgical History: Back Surgery, Coronary Bypass/CABG, Heart Catheterization, Heart Catheterization With Stent, Orthopedic Surgery Additional Past Surgical History / Comment(s): 08/23/2019 CABG 3 vessels, PCI with total of 5 stents, L ankle ligament repair, R leg ORIF, low back surgery, colonoscopy. Past Anesthesia/Blood Transfusion Reactions: No Reported Reaction Additional Past Anesthesia/Blood Transfusion Reaction / Comment(s): Pt has received blood in past without reaction. Date of Last Stent Placement:: 02/2015 Past Psychological History: No Psychological Hx Reported Smoking Status: Former smoker Past Alcohol Use History: None Reported Past Drug Use History: Marijuana - Past Family History Sister(s) Family Medical History: Coronary Artery Disease (CAD), Hypertension Father Family Medical History: Coronary Artery Disease (CAD), Diabetes Mellitus, Deep Vein Thrombosis (DVT), Hypertension Additional Family Medical History / Comment(s): Father at age 58yrs. He of blood clot from leg injury that went to his heart. Medications and Allergies Home Medications Medication Instructions Recorded Confirmed Type DULoxetine HCL [Cymbalta] 60 mg PO DAILY capsule. 08/15/19 09/16/19 Rx oxyCODONE ER [OxyCONTIN] 80 mg PO BID tab.er.12h 08/15/19 09/16/19 Rx Aspirin 325 mg PO DAILY #30 tab 09/01/19 09/16/19 Rx Atorvastatin [Lipitor] 40 mg PO DAILY #30 tab 09/01/19 09/16/19 Rx Clopidogrel [Plavix] 75 mg PO DAILY #30 tab 09/01/19 09/16/19 Rx Insulin Glargine,Hum.rec.anlog 18 unit SQ HS #0 09/01/19 09/16/19 Rx [Basaglar Kwikpen U-100] Losartan [Cozaar] 25 mg PO DAILY #30 tab 09/01/19 09/16/19 Rx Metoprolol Tartrate [Lopressor] 100 mg PO BID #120 tab 09/01/19 09/16/19 Rx Pantoprazole [Protonix] 40 mg PO MICHA-DENISE #30 tablet. 09/01/19 09/16/19 Rx amLODIPine [Norvasc] 5 mg PO DAILY #30 tab 09/01/19 09/16/19 Rx INSULIN ASPART (NovoLOG) [NovoLOG See Protocol SQ ACHS 09/16/19 09/16/19 History (formulary)] Sennosides-Docusate Sodium 2 tab PO HS 09/16/19 09/16/19 History [Senokot-S] oxyCODONE HCL [oxyCODONE HCL ER] 15 mg PO Q12H 09/16/19 09/16/19 History Allergies Allergy/AdvReac Type Severity Reaction Status Date / Time No Known Allergies Allergy Verified 09/16/19 07:24 Surgical - Exam Vital Signs Temp Pulse Resp BP Pulse Ox 98.2 F 83 24 162/80 99 09/16/19 06:21 09/16/19 06:21 09/16/19 06:21 09/16/19 06:21 09/16/19 06:21 - General well developed, well nourished, no distress, no pain - Eyes PERRL, normal ocular movement - ENT no hearing loss - Neck no masses, no bruits, trachea midline - Respiratory Lungs sounds diminished bilaterally with faint crackles in the bases. Respirations even, nonlabored. Currently on room air with oxygen saturation 100%. - Cardiovascular S1, S2 present. Regular rate and rhythm, sinus rhythm on telemetry with heart rate in the 80s. Sternum stable. Palpable peripheral pulses bilaterally. No edema present. No calf pain or tenderness noted. - Abdomen Abdomen: soft, non tender, bowel sounds - Genitourinary Deferred - Rectum Deferred - Integumentary Skin is warm and dry with evidence of good perfusion. Anterior chest incision well approximated. - Neurologic normal coordination, normal sensation - Musculoskeletal normal posture - Psychiatric oriented to time, oriented to person, oriented to place Results - Labs 09/16/19 06:40 09/16/19 06:40 Abnormal Lab Results - Last 24 Hours (Table) 09/16/19 09/16/19 09/16/19 Range/Units 06:40 06:40 06:40 WBC 11.0 H (3.8-10.6) k/uL RBC 4.12 L (4.30-5.90) m/uL Hgb 11.6 L (13.0-17.5) gm/dL Hct 38.7 L (39.0-53.0) % MCHC 30.1 L (31.0-37.0) g/dL RDW 16.4 H (11.5-15.5) % Plt Count 662 H (150-450) k/uL Neutrophils # 8.9 H (1.3-7.7) k/uL Lymphocytes # 0.9 L (1.0-4.8) k/uL D-Dimer 5.36 H (<0.60) mg/L FEU Potassium 3.1 L (3.5-5.1) mmol/L Glucose 304 H (74-99) mg/dL POC Glucose (mg/dL) (75-99) mg/dL Alkaline Phosphatase 130 H (38-126) U/L Urine Protein (Negative) Urine Glucose (UA) (Negative) 09/16/19 09/16/19 Range/Units 08:00 11:41 WBC (3.8-10.6) k/uL RBC (4.30-5.90) m/uL Hgb (13.0-17.5) gm/dL Hct (39.0-53.0) % MCHC (31.0-37.0) g/dL RDW (11.5-15.5) % Plt Count (150-450) k/uL Neutrophils # (1.3-7.7) k/uL Lymphocytes # (1.0-4.8) k/uL D-Dimer (<0.60) mg/L FEU Potassium (3.5-5.1) mmol/L Glucose (74-99) mg/dL POC Glucose (mg/dL) 246 H (75-99) mg/dL Alkaline Phosphatase (38-126) U/L Urine Protein Trace H (Negative) Urine Glucose (UA) 4+ H (Negative) Diabetes panel 09/16/19 Range/Units 06:40 Sodium 139 (137-145) mmol/L Potassium 3.1 L (3.5-5.1) mmol/L Chloride 104 (98-107) mmol/L Carbon Dioxide 26 (22-30) mmol/L BUN 16 (9-20) mg/dL Creatinine 0.67 (0.66-1.25) mg/dL Glucose 304 H (74-99) mg/dL Calcium 9.1 (8.4-10.2) mg/dL AST 18 (17-59) U/L ALT 17 (4-49) U/L Alkaline Phosphatase 130 H (38-126) U/L Total Protein 7.0 (6.3-8.2) g/dL Albumin 3.7 (3.5-5.0) g/dL Calcium panel 09/16/19 Range/Units 06:40 Calcium 9.1 (8.4-10.2) mg/dL Albumin 3.7 (3.5-5.0) g/dL Pituitary panel 09/16/19 Range/Units 06:40 Sodium 139 (137-145) mmol/L Potassium 3.1 L (3.5-5.1) mmol/L Chloride 104 (98-107) mmol/L Carbon Dioxide 26 (22-30) mmol/L BUN 16 (9-20) mg/dL Creatinine 0.67 (0.66-1.25) mg/dL Glucose 304 H (74-99) mg/dL Calcium 9.1 (8.4-10.2) mg/dL Adrenal panel 09/16/19 Range/Units 06:40 Sodium 139 (137-145) mmol/L Potassium 3.1 L (3.5-5.1) mmol/L Chloride 104 (98-107) mmol/L Carbon Dioxide 26 (22-30) mmol/L BUN 16 (9-20) mg/dL Creatinine 0.67 (0.66-1.25) mg/dL Glucose 304 H (74-99) mg/dL Calcium 9.1 (8.4-10.2) mg/dL Total Bilirubin 0.4 (0.2-1.3) mg/dL AST 18 (17-59) U/L ALT 17 (4-49) U/L Alkaline Phosphatase 130 H (38-126) U/L Total Protein 7.0 (6.3-8.2) g/dL Albumin 3.7 (3.5-5.0) g/dL - Imaging Chest x-ray: report reviewed, image reviewed CT scan - chest: report reviewed, image reviewed EKG: image reviewed Assessment and Plan Assessment: 1. Shortness of breath, pleural effusions 2. History of symptomatic multivessel coronary artery disease, status post stents in 2014, status post triple vessel CABG 08/23/2019 3. Postoperative wrecks as well atrial fibrillation, currently in normal sinus rhythm 4. Postoperative Pseudomonas urinary tract infection, treated with antibiotics 5. History of ischemic cardiomyopathy 6. History of hypertension 7. History of hyperlipidemia 8. Insulin dependent diabetes mellitus with hemoglobin A1c 8.0 9. Previous tobacco dependence 10. Marijuana use 11. Chronic low back pain on chronic opioid narcotics 12. Family history of premature coronary artery disease Plan: The patient was seen and examined in the emergency room. Previous chart reviewed. Dr. Denson updated, Dr. Terry to see the patient today. He is currently in no acute distress and is oxygenating well on room air. We will k eep this gentleman overnight for IV Lasix diuresis. He is to remain in observation status. We will have physical and occupational see him to increase his activity level. He has been counseled on low salt diet. We will repeat 2 view chest x-ray, CBC, BMP in the morning. Continue postoperative open heart orders including daily shower, daily weights, accurate intake and output. Home medications have been ordered. More recommendations to follow. Time with Patient: Greater than 30
[2019-09-16] MEDS: oxyCODONE ER 80 MG TAB.ER.12H PO PRN (16:38)
[2019-09-16 16:45] LABS: Glucose,Whole Blood 215 mg/dL (75-99)
[2019-09-16] MEDS: SODIUM CHLORIDE 0.9% 500 ML 500 ML IV SCH (17:09)
[2019-09-16 20:07] LABS: Glucose,Whole Blood 262 mg/dL (75-99)
[2019-09-16] MEDS ORDERED: ATORVASTATIN 40 MG TAB PO SCH (21:00)
[2019-09-16] MEDS ORDERED: SENNOSIDES-DOCUSATE SODIUM 1 EACH TAB PO SCH (21:00)
[2019-09-16] MEDS ORDERED: oxyCODONE ER 80 MG TAB.ER.12H PO SCH (21:00)
[2019-09-16] MEDS ORDERED: POTASSIUM CHLORIDE ER 20 MEQ TAB.ER PO SCH (21:00)
[2019-09-16] MEDS ORDERED: INSULIN DETEMIR (LEVEMIR) 100 UNIT/ML SYR SQ SCH (21:00)
[2019-09-16] MEDS: FUROSEMIDE 10 MG/ML 4 ML VIAL IV SCH (21:04)
[2019-09-16] MEDS: METOPROLOL TARTRATE 50 MG TAB PO SCH (21:04)
[2019-09-17] MEDS: oxyCODONE ER 80 MG TAB.ER.12H PO PRN (05:12)
[2019-09-17 06:27] LABS: Glucose,Whole Blood 211 mg/dL (75-99)
--- NOTE | 2019-09-17 06:35 | XR ---
EXAMINATION TYPE: XR chest 2V DATE OF EXAM: 09/17/2019 HISTORY: pleural effusion. REFERENCE: Previous study dated 09/16/2019. FINDINGS: There has been a midline sternotomy. Heart size upper limits of normal. The lungs appear clear. Pleural spaces are clear. IMPRESSION: BORDERLINE CARDIOMEGALY.
[2019-09-17] MEDS: INSULIN ASPART (NovoLOG) 100 UNIT/ML VIAL SQ SCH (06:37)
[2019-09-17 07:06] LABS: Anisocytosis Slight; Basophils % (A) 0 %; Eosinophils # (A) 0.3 k/uL (0-0.7); Eosinophils % (A) 3 %; HCT 39.1 % (39.0-53.0); HGB 11.8 gm/dL (13.0-17.5); Hypochromasia Marked; Lymphocytes # (A) 1.3 k/uL (1.0-4.8); Lymphocytes % (A) 13 %; MCH 28.6 pg (25.0-35.0); MCHC 30.2 g/dL (31.0-37.0); MCV 94.7 fL (80.0-100.0); Mean Platelet Volume 6.6; Monocytes # (A) 0.7 k/uL (0-1.0); Monocytes % (A) 6 %; Neutrophils # (A) 8.2 k/uL (1.3-7.7); Neutrophils % (A) 77 %; Platelet Count 592 k/uL (150-450); Poikilocytosis Slight; RBC 4.12 m/uL (4.30-5.90); RDW 16.2 % (11.5-15.5); WBC 10.8 k/uL (3.8-10.6)
[2019-09-17 07:20] LABS: African American GFR (CKD) >90 (>60 ml/min/1.73 sqM); Anion Gap 8 mmol/L; Blood Urea Nitrogen 20 mg/dL (9-20); Calcium 9.3 mg/dL (8.4-10.2); Carbon Dioxide 30 mmol/L (22-30); Chloride 100 mmol/L (98-107); Glucose 187 mg/dL (74-99); Non-African American GFR(CKD) 89 (>60 ml/min/1.73 sqM); Potassium 3.2 mmol/L (3.5-5.1); Sodium 138 mmol/L (137-145)
[2019-09-17] MEDS ORDERED: PANTOPRAZOLE 40 MG TABLET PO SCH (07:30)
[2019-09-17] MEDS ORDERED: POTASSIUM CHLORIDE ER 20 MEQ TAB.ER PO SCH (09:00)
[2019-09-17 09:41] VITALS: BP 128/75; PULSE 83; RESP 16; TEMP 98.1
[2019-09-17] MEDS: DULoxetine HCL 60 MG CAPSULE.DR PO SCH (09:42)
[2019-09-17] MEDS: ASPIRIN 325 MG TAB PO SCH (09:42)
[2019-09-17] MEDS: METOPROLOL TARTRATE 50 MG TAB PO SCH (09:42)
[2019-09-17] MEDS: CLOPIDOGREL 75 MG TAB PO SCH (09:42)
[2019-09-17] MEDS: LOSARTAN 25 MG TAB PO SCH (09:42)
[2019-09-17] MEDS: SODIUM CHLORIDE 0.9% 500 ML 500 ML IV SCH (09:43)
[2019-09-17] MEDS: FUROSEMIDE 10 MG/ML 4 ML VIAL IV SCH (09:43)
--- NOTE | 2019-09-17 10:53 | P.DS ---
Providers Date of admission: 09/16/19 08:24 Expected date of discharge: 09/17/19 Attending physician: Cris Denson Primary care physician: Dexter Ji [facility] Course: FINAL DIAGNOSIS: 1. Shortness of breath, pleural effusions 2. History of symptomatic multivessel coronary artery disease status post triple-vessel CABG 08/23/2019, with postoperative paroxysmal atrial fibrillation and Pseudomonas urinary tract infection 3. History of ischemic cardiomyopathy 4. History of hypertension 5. History of hyperlipidemia 6. Insulin dependent diabetes mellitus 7. Previous tobacco dependence 8. Marijuana use 9. Chronic low back pain on chronic opioid narcotics HISTORY OF PRESENT ILLNESS AND HOSPITAL COURSE: This is a 64-year-old gentleman who follows on an outpatient basis with Dr. Dexter Ji. He was admitted to [facility] in early July with unstable angina, workup included a heart catheterization and transthoracic echocardiogram where he was found to have multivessel coronary artery disease. He underwent preoperative testing and was discharged home in stable condition to return for elective CABG with Dr. Denson. His CABG was performed on 08/23/2019, his recovery was competent by paroxysmal atrial fibrillation and Pseudomonas urinary tract infection which are treated currently, and he was discharged home with [facility] postoperative day #9. He has followed up with his primary care physician, cardiology, nurse practitioner cardiac surgery, pulmonology, and was scheduled to see Dr. Denson on Thursday at 10 AM. He will return to [facility] yesterday morning as he woke up at 3:00 complaining of shortness of breath. Chest x-ray was completed demonstrating Creon-Maximiliano small pleural effusions, left greater than right. Chest CTA was also completed without evidence of pulmonary embolism. EKG demonstrated normal sinus rhythm. Vital signs were stable and he was oxygenating well, 99% on 2 L nasal cannula. He did receive IV Lasix in the emergency room and stated his breathing felt better. He was admitted for 23 hour observation, he was given 2 subsequent doses of IV Lasix and follow-up chest x-ray the following morning was stable. His oxygen saturation maintained in the high 90s on room air. He was tolerating oral diet, he denied pain, and he was ready to be discharged to home with [facility]. He received written and verbal instruction regarding his medications, activity restrictions, signs and symptoms requiring physician notification, and follow-up appointments. In addition, he was advised to avoid salt. Telephone discussion was had with the patient's sister Evi and friend Aj as well regarding need to increase activity, continue coughing and deep breathing exercises, and salt restriction. Patient Condition at Discharge: Stable Plan - Discharge Summary Discharge Rx Participant: No New Discharge Prescriptions: New Potassium Chloride ER [K-Dur 20] 40 meq PO DAILY #5 tab Furosemide [Lasix] 40 mg PO DAILY #5 tablet Acetaminophen Tab [Tylenol] 650 mg PO Q6HR PRN tab PRN Reason: Mild Pain Or Fever > 100.5 Continue DULoxetine HCL [Cymbalta] 60 mg PO DAILY capsule. oxyCODONE ER [OxyCONTIN] 80 mg PO BID tab.er.12h Aspirin 325 mg PO DAILY #30 tab Losartan [Cozaar] 25 mg PO DAILY #30 tab Atorvastatin [Lipitor] 40 mg PO DAILY #30 tab Metoprolol Tartrate [Lopressor] 100 mg PO BID #120 tab amLODIPine [Norvasc] 5 mg PO DAILY #30 tab Clopidogrel [Plavix] 75 mg PO DAILY #30 tab Pantoprazole [Protonix] 40 mg PO AC-BRKFST #30 tablet. Insulin Glarginadal,Hum.rec.anlog [Basaglar Kwikpen U-100] 18 unit SQ HS #0 INSULIN ASPART (NovoLOG) [NovoLOG (formulary)] See Protocol SQ ACHS Sennosides-Docusate Sodium [Senokot-S] 2 tab PO HS oxyCODONE HCL [oxyCODONE HCL ER] 15 mg PO Q12H Discharge Medication List DULoxetine HCL [Cymbalta] 60 mg PO DAILY capsule. 08/15/19 [Rx] oxyCODONE ER [OxyCONTIN] 80 mg PO BID tab.er.12h 08/15/19 [Rx] Aspirin 325 mg PO DAILY #30 tab 09/01/19 [Rx] Atorvastatin [Lipitor] 40 mg PO DAILY #30 tab 09/01/19 [Rx] Clopidogrel [Plavix] 75 mg PO DAILY #30 tab 09/01/19 [Rx] Insulin Glargine,Hum.rec.anlog [Basaglar Kwikpen U-100] 18 unit SQ HS #0 09/01/19 [Rx] Losartan [Cozaar] 25 mg PO DAILY #30 tab 06/04/20 [Rx] Metoprolol Tartrate [Lopressor] 100 mg PO BID #120 tab 09/01/19 [Rx] Pantoprazole [Protonix] 40 mg PO AC-BRKFST #30 tablet. 09/01/19 [Rx] amLODIPine [Norvasc] 5 mg PO DAILY #30 tab 09/01/19 [Rx] INSULIN ASPART (NovoLOG) [NovoLOG (formulary)] See Protocol SQ ACHS 09/16/19 [History] Sennosides-Docusate Sodium [Senokot-S] 2 tab PO HS 09/16/19 [History] oxyCODONE HCL [oxyCODONE HCL ER] 15 mg PO Q12H 09/16/19 [History] Acetaminophen Tab [Tylenol] 650 mg PO Q6HR PRN tab 09/17/19 [Rx] Furosemide [Lasix] 40 mg PO DAILY #5 tablet 09/17/19 [Rx] Potassium Chloride ER [K-Dur 20] 40 meq PO DAILY #5 tab 09/17/19 [Rx] Follow up Appointment(s)/Referral(s): Cris Denson MD [STAFF PHYSICIAN] - 09/23/19 10:00 am (Please wear a mask to the office. We will call the day before to confirm your appointment) Dexter Ji DO [Primary Care Provider] - 1-2 days Donovan Hua MD [STAFF PHYSICIAN] - 2 Weeks (As scheduled) Activity/Diet/Wound Care/Special Instructions: DISCHARGE INSTRUCTIONS: 1. No driving for 2 weeks, or until physician gives their ok. 2. The patient should sleep in their own bed, no medical bed needed. 3. Stairs are not an issue. If the bedroom is upstairs, it is advised that the patient go up at night and down in the morning for the first week. Go slowly, using handrail and take 1 step at a time. 4. YOSSI hose are to be worn for another week. 5. Heart hugger is to be worn 100% of the time until physician discontinues.(except when showering) 6. No lifting, pushing, or pulling more than 10 pounds for 12 weeks. The physician will advise of any restriction changes. 7. The patient is expected to continue the prescribed walking program. Need to be out of bed all day, bed should be used for sleeping at night only. 8. Continue pain control per as needed orders. 9. Continue with incentive spirometry and splinting/heart hugger until otherwise directed by the physician. 10. Must shower daily using liquid antibacterial soap 11. Routine sternal incision care. No powders, lotions, ointments on incisions. 12. Please call surgeon/SPORT PSYCHOLOGIST for temp greater than 101 F or purulent drainage from incisions. 13. You have been referred to and are expected to begin Cardiac Rehab in approximately 4-6 weeks after surgery. 14. NO SALT!!!! HOME HEALTH SERVICES TO PROVIDE: RN SKILLED HOME CARE SERVICES FOR POST-OP SURGICAL PATIENTS WITH THE FOLLOWING: Coronary Artery Bypass Surgery (CABG), Mitral Valve Replacement/Repair ( MVR), Aortic Valve Replacement/Repair (AVR) RN TO CONTINUE EDUCATION FROM ``ROAD TO A HEALTH HEART PATIENT EDUCATION MANUAL (GIVEN TO PATIENT IN THE HOSPITAL) MEDICATION RECONCILIATION WITH EDUCATION NEEDED ON FIRST HOME VISIT EMPHASIZE IMPORTANCE OF WEARING BREAST SUPPORT/HEART HUGGER ENCOURAGE USE OF INCENTIVE SPIROMETER 10 X EVERY HOUR WHILE AWAKE ENCOURAGE UTILIZATION OF LOWER EXTREMITY COMPRESSION STOCKINGS/YOSSI HOSE and ELEVATE LEGS ABOVE LEVEL OF HEART WHILE AT REST. ENCOURAGE AMBULATION 3-5x/day INCREASING TOLERATES, WHILE AVOIDING EXTREMES IN TEMPERATURE FREQUENCY: RN TO OPEN THE PATIENT WITHIN 24 HOURS OF DISCHARGE FROM THE HOSPITAL, RN TO VISIT 2-3 X A WEEK FOR 4 WEEKS ESTABLISHED BY PATIENT NEEDS. HEALTH PARAMETERS: WEIGHT: NOTIFY MD OF WEIGHT GAIN OF 2 LBS IN 24 HOURS OR 5 LBS IN ONE WEEK HR: NOTIFY MD OF HR <55 BPM OR HR>100 BPM BP: NOTIFY MD IF BP <90/55 OR BP>140/100 O2 SAT: NOTIFY MD IF PO2<93% ON ROOM AIR For any questions or concerns please call retail service specialist Saida @ or Danis @
== END 2019-09-17 12:43 | disposition home or self-care (01) ==
LOC: EC 06:20 → 3SCARD 08:24
PROVIDERS: ADMIT Surgery; ATTEND Surgery
DX: J90 Pleural effusion, not elsewhere classified (principal); Z95.1 Presence of aortocoronary bypass graft; I11.9 Hypertensive heart disease without heart failure; I25.10 Atherosclerotic heart disease of native coronary artery without angina pectoris; I48.0 Paroxysmal atrial fibrillation; I25.5 Ischemic cardiomyopathy; Z20.828 Contact with and (suspected) exposure to other viral communicable diseases; E78.5 Hyperlipidemia, unspecified; E11.9 Type 2 diabetes mellitus without complications; R79.89 Other specified abnormal findings of blood chemistry; J98.11 Atelectasis; N39.0 Urinary tract infection, site not specified; B96.5 Pseudomonas (aeruginosa) (mallei) (pseudomallei) as the cause of diseases classified elsewhere; K21.9 Gastro-esophageal reflux disease without esophagitis; G89.29 Other chronic pain; M54.5 Low back pain; M79.604 Pain in right leg; M79.605 Pain in left leg; F12.90 Cannabis use, unspecified, uncomplicated; Z79.4 Long term (current) use of insulin; Z79.02 Long term (current) use of antithrombotics/antiplatelets; Z79.82 Long term (current) use of aspirin; Z79.891 Long term (current) use of opiate analgesic; Z79.899 Other long term (current) drug therapy; Z95.5 Presence of coronary angioplasty implant and graft; Z86.19 Personal history of other infectious and parasitic diseases; Z87.891 Personal history of nicotine dependence; Z82.49 Family history of ischemic heart disease and other diseases of the circulatory system; Z83.3 Family history of diabetes mellitus
CPT/HCPCS: 96376 ×2; 96374; 99285; 36415; 93005; 85379; 83880; 80053; 80048; 83605; 83735; 84484; 85025 ×2; 85610; 85730; 81003; 71046 ×2; 71275; G0378 ×2; U0003; J1940 ×2; Q9967

== ENCOUNTER 2019-09-20 11:49 | Emergency (ER) | payer MEDICARE ==
[2019-09-20 11:55] LABS: Glucose,Whole Blood 573 mg/dL (75-99)
[2019-09-20 11:56] VITALS: TEMP 97.9
[2019-09-20] MEDS ORDERED: SODIUM CHLORIDE 0.9% 1,000 ML IV ONE (12:16)
[2019-09-20] MEDS ORDERED: INSULIN REGULAR 100 UNIT/ML VIAL IV ONE (12:17)
--- NOTE | 2019-09-20 12:28 | ED ---
General Adult HPI - General Chief complaint: Recheck/Abnormal Lab/Rx Stated complaint: hypertension, elevated blood sugar Time Seen by Provider: 09/20/19 12:03 Source: patient, RN notes reviewed, old records reviewed Mode of arrival: wheelchair Limitations: no limitations - History of Present Illness Initial comments: Patient is a 64-year-old male with history of recent coronary artery bypass with complaints of an elevated blood sugar that was found by his visiting nurse today. His blood sugar was elevated at 560 at home and was encouraged to come to the emergency department. Patient denies any current symptoms including chest pain or shortness of breath. He also did have an elevated blood pressure this morning by visiting nurse 160/100. Patient states that he takes his medications regularly and does not know why his blood sugar was still elevated. He last ate yesterday evening. Denies any fevers or chills. - Related Data Home Medications Medication Instructions Recorded Confirmed INSULIN ASPART (NovoLOG) [NovoLOG See Protocol SQ ACHS 09/16/19 09/16/19 (formulary)] Sennosides-Docusate Sodium 2 tab PO HS 09/16/19 09/16/19 [Senokot-S] oxyCODONE HCL [oxyCODONE HCL ER] 15 mg PO Q12H 09/16/19 09/16/19 Previous Rx's Medication Instructions Recorded DULoxetine HCL [Cymbalta] 60 mg PO DAILY capsule. 08/15/19 oxyCODONE ER [OxyCONTIN] 80 mg PO BID tab.er.12h 08/15/19 Aspirin 325 mg PO DAILY #30 tab 09/01/19 Atorvastatin [Lipitor] 40 mg PO DAILY #30 tab 09/01/19 Clopidogrel [Plavix] 75 mg PO DAILY #30 tab 09/01/19 Insulin Glargine,Hum.rec.anlog 18 unit SQ HS #0 09/01/19 [Basaglar Kwikpen U-100] Losartan [Cozaar] 25 mg PO DAILY #30 tab 09/01/19 Metoprolol Tartrate [Lopressor] 100 mg PO BID #120 tab 09/01/19 Pantoprazole [Protonix] 40 mg PO AC-BRKFST #30 tablet. 09/01/19 amLODIPine [Norvasc] 5 mg PO DAILY #30 tab 06/04/20 Acetaminophen Tab [Tylenol] 650 mg PO Q6HR PRN tab 09/17/19 Furosemide [Lasix] 40 mg PO DAILY #5 tablet 09/17/19 Potassium Chloride ER [K-Dur 20] 40 meq PO DAILY #5 tab 09/17/19 Allergies Allergy/AdvReac Type Severity Reaction Status Date / Time No Known Allergies Allergy Verified 09/20/19 11:56 Review of Systems ROS Statement: Those systems with pertinent positive or pertinent negative responses have been documented in the HPI. ROS Other: All systems not noted in ROS Statement are negative. Past Medical History Past Medical History: Atrial Fibrillation, Coronary Artery Disease (CAD), Chest Pain / Angina, Diabetes Mellitus, GERD/Reflux, Hyperlipidemia, Hypertension, Myocardial Infarction (ME) Additional Past Medical History / Comment(s): Pt had CABG 07/2019 and had post op Afib/UTI with pseudomonas aeruginosa, ischemic cardiomyopathy, IDDM type II, past R scrotal abscess with sepsis, chronic lower back pain and bilateral leg pain, Last Myocardial Infarction Date:: 03/20/15 History of Any Multi-Drug Resistant Organisms: None Reported Past Surgical History: Back Surgery, Coronary Bypass/CABG, Heart Catheterization, Heart Catheterization With Stent, Orthopedic Surgery Additional Past Surgical History / Comment(s): 08/23/2019 CABG 3 vessels, PCI with total of 5 stents, L ankle ligament repair, R leg ORIF, low back surgery, colonoscopy. Past Anesthesia/Blood Transfusion Reactions: No Reported Reaction Additional Past Anesthesia/Blood Transfusion Reaction / Comment(s): Pt has received blood in past without reaction. Date of Last Stent Placement:: 02/2015 Past Psychological History: No Psychological Hx Reported Smoking Status: Former smoker Past Alcohol Use History: None Reported Past Drug Use History: Marijuana - Past Family History Sister(s) Family Medical History: Coronary Artery Disease (CAD), Hypertension Father Family Medical History: Coronary Artery Disease (CAD), Diabetes Mellitus, Deep Vein Thrombosis (DVT), Hypertension Additional Family Medical History / Comment(s): Father at age 58yrs. He of blood clot from leg injury that went to his heart. General Exam - General Exam Comments Initial Comments: Well-appearing 64-year-old male. Alert and oriented 3. No acute distress. Limitations: no limitations Head exam: Present: atraumatic, normocephalic, normal inspection Eye exam: Present: normal appearance, PERRL, EOMI. Absent: scleral icterus, conjunctival injection, periorbital swelling ENT exam: Present: normal exam, mucous membranes moist Neck exam: Present: normal inspection. Absent: tenderness, meningismus, lymphadenopathy Respiratory exam: Present: normal lung sounds bilaterally, other (Well-healing incision site over the midsternum and left wrist.). Absent: respiratory distress, wheezes, rales, rhonchi, stridor Cardiovascular Exam: Present: regular rate, normal rhythm, normal heart sounds. Absent: systolic murmur, diastolic murmur, rubs, gallop, clicks GI/Abdominal exam: Present: soft, normal bowel sounds. Absent: distended, tenderness, guarding, rebound, rigid Extremities exam: Present: normal inspection, full ROM, normal capillary refill. Absent: tenderness, pedal edema, joint swelling, calf tenderness Course Vital Signs 09/20/19 09/20/19 09/20/19 11:50 13:33 14:00 Temperature 97.9 F Pulse Rate 72 64 86 Respiratory 18 16 16 Rate Blood Pressure 124/84 115/67 124/86 O2 Sat by Pulse 100 99 99 Oximetry Medical Decision Making - Medical Decision Making 64 year old male presents for an elevated blood sugar. His blood sugar was 501st evaluation. He is given IV fluids labwork obtained. Acetone negative. After insulin patient's blood sugars 400. He has no complaints of any pain at this time states he feels well. I discussed the Patient has to follow-up with his primary care doctor in regards to glucose management and alternating his prescriptions and has a home. Patient is agreeable to this will have close follow-up with primary care physician. Again he denies any pain or discomfort and feels well to be discharged. - Lab Data Result diagrams: 09/20/19 12:23 09/20/19 12:23 Lab Results 09/20/19 09/20/19 09/20/19 Range/Units 11:53 12:23 12:23 WBC 10.0 (3.8-10.6) k/uL RBC 4.12 L (4.30-5.90) m/uL Hgb 12.3 L (13.0-17.5) gm/dL Hct 39.1 (39.0-53.0) % MCV 95.0 (80.0-100.0) fL MCH 29.8 (25.0-35.0) pg MCHC 31.3 (31.0-37.0) g/dL RDW 15.2 (11.5-15.5) % Plt Count 582 H (150-450) k/uL Neutrophils % 74 % Lymphocytes % 14 % Monocytes % 7 % Eosinophils % 3 % Basophils % 0 % Neutrophils # 7.4 (1.3-7.7) k/uL Lymphocytes # 1.4 (1.0-4.8) k/uL Monocytes # 0.7 (0-1.0) k/uL Eosinophils # 0.3 (0-0.7) k/uL Basophils # 0.0 (0-0.2) k/uL Hypochromasia Marked Poikilocytosis Slight Sodium 133 L (137-145) mmol/L Potassium 4.4 (3.5-5.1) mmol/L Chloride 94 L (98-107) mmol/L Carbon Dioxide 28 (22-30) mmol/L Anion Gap 11 mmol/L BUN 25 H (9-20) mg/dL Creatinine 0.83 (0.66-1.25) mg/dL Est GFR (CKD-EPI)AfAm >90 (>60 ml/min/1.73 sqM) Est GFR (CKD-EPI)NonAf >90 (>60 ml/min/1.73 sqM) Glucose 554 H* (74-99) mg/dL POC Glucose (mg/dL) 573 H (75-99) mg/dL POC Glu Nutrient Management Specialist ID Brandi, Tammie Calcium 9.2 (8.4-10.2) mg/dL Urine Color Urine Appearance (Clear) Urine pH (5.0-8.0) Ur Specific [place] (1.001-1.035) Urine Protein (Negative) Urine Glucose (UA) (Negative) Urine Ketones (Negative) Urine Blood (Negative) Urine Nitrite (Negative) Urine Bilirubin (Negative) Urine Urobilinogen (<2.0) mg/dL Ur Leukocyte Esterase (Negative) Acetone, Qual Negative (Negative) 09/20/19 09/20/19 Range/Units 12:26 13:25 WBC (3.8-10.6) k/uL RBC (4.30-5.90) m/uL Hgb (13.0-17.5) gm/dL Hct (39.0-53.0) % MCV (80.0-100.0) fL MCH (25.0-35.0) pg MCHC (31.0-37.0) g/dL RDW (11.5-15.5) % Plt Count (150-450) k/uL Neutrophils % % Lymphocytes % % Monocytes % % Eosinophils % % Basophils % % Neutrophils # (1.3-7.7) k/uL Lymphocytes # (1.0-4.8) k/uL Monocytes # (0-1.0) k/uL Eosinophils # (0-0.7) k/uL Basophils # (0-0.2) k/uL Hypochromasia Poikilocytosis Sodium (137-145) mmol/L Potassium (3.5-5.1) mmol/L Chloride (98-107) mmol/L Carbon Dioxide (22-30) mmol/L Anion Gap mmol/L BUN (9-20) mg/dL Creatinine (0.66-1.25) mg/dL Est GFR (CKD-EPI)AfAm (>60 ml/min/1.73 sqM) Est GFR (CKD-EPI)NonAf (>60 ml/min/1.73 sqM) Glucose (74-99) mg/dL POC Glucose (mg/dL) 414 H (75-99) mg/dL POC Glu Nutrient Management Specialist ID Rossi Lynne Calcium (8.4-10.2) mg/dL Urine Color Colorless Urine Appearance Clear (Clear) Urine pH 5.5 (5.0-8.0) Ur Specific [place] 1.016 (1.001-1.035) Urine Protein Negative (Negative) Urine Glucose (UA) 4+ H (Negative) Urine Ketones Negative (Negative) Urine Blood Negative (Negative) Urine Nitrite Negative (Negative) Urine Bilirubin Negative (Negative) Urine Urobilinogen <2.0 (<2.0) mg/dL Ur Leukocyte Esterase Negative (Negative) Acetone, Qual (Negative) 09/20/19 12:53 EKG performed at 1228 shows sinus rhythm first-degree AV block. Left axis deviation.. Her attention to repair anterior infarct age undetermined. To go to [place] considering lateral ischemia. Ventricular rate is 73 bpm. Pulse 214 ms. QS duration is 108 ms. QT QTc is 414/456 seconds. Disposition Clinical Impression: Blood glucose elevated Disposition: HOME SELF-CARE Condition: Good Instructions (If sedation given, give patient instructions): Diabetic Hyperglycemia (ED) Additional Instructions: Patient advised to follow-up with your primary care physician in regards to adjustment of your diabetes medication. Return to the emergency department if any alarming signs or symptoms occur. Is patient prescribed a controlled substance at d/c from ED?: No Referrals: Dexter Ji DO [Primary Care Provider] - 1-2 days Time of Disposition: 13:49
[2019-09-20] MEDS ORDERED: SODIUM CHLORIDE 0.9% 1,000 ML IV SCH (12:30)
[2019-09-20 12:51] LABS: Appearance,Urine Clear (Clear); Bilirubin,Urine Negative (Negative); Blood,Urine Negative (Negative); Color,Urine Colorless; Glucose,Urine (UA) 4+ (Negative); Ketones,Urine Negative (Negative); Leukocyte Esterase,Urine Negative (Negative); Nitrite,Urine Negative (Negative); PH, Urine 5.5 (5.0-8.0); Protein,Urine Negative (Negative); Specific Gravity,Urine 1.016 (1.001-1.035); Urobilinogen,Urine <2.0 mg/dL (<2.0)
[2019-09-20 12:53] LABS: Basophils % (A) 0 %; Eosinophils # (A) 0.3 k/uL (0-0.7); Eosinophils % (A) 3 %; HCT 39.1 % (39.0-53.0); HGB 12.3 gm/dL (13.0-17.5); Hypochromasia Marked; Lymphocytes # (A) 1.4 k/uL (1.0-4.8); Lymphocytes % (A) 14 %; MCH 29.8 pg (25.0-35.0); MCHC 31.3 g/dL (31.0-37.0); Mean Platelet Volume 6.7; Monocytes # (A) 0.7 k/uL (0-1.0); Monocytes % (A) 7 %; Neutrophils # (A) 7.4 k/uL (1.3-7.7); Neutrophils % (A) 74 %; Platelet Count 582 k/uL (150-450); Poikilocytosis Slight; RBC 4.12 m/uL (4.30-5.90); RDW 15.2 % (11.5-15.5)
[2019-09-20 12:59] LABS: African American GFR (CKD) >90 (>60 ml/min/1.73 sqM); Anion Gap 11 mmol/L; Blood Urea Nitrogen 25 mg/dL (9-20); Calcium 9.2 mg/dL (8.4-10.2); Carbon Dioxide 28 mmol/L (22-30); Chloride 94 mmol/L (98-107); Non-African American GFR(CKD) >90 (>60 ml/min/1.73 sqM); Potassium 4.4 mmol/L (3.5-5.1); Sodium 133 mmol/L (137-145)
[2019-09-20 13:06] LABS: Glucose 554 mg/dL (74-99)
[2019-09-20 13:27] LABS: Glucose,Whole Blood 414 mg/dL (75-99)
[2019-09-20 13:34] VITALS: RESP 16
[2019-09-20 14:02] VITALS: BP 124/86; PULSE 86
== END 2019-09-20 14:02 | disposition home or self-care (01) ==
LOC: EC 11:49
DX: E11.65 Type 2 diabetes mellitus with hyperglycemia (principal); I25.2 Old myocardial infarction; I10 Essential (primary) hypertension; Z79.4 Long term (current) use of insulin; Z95.5 Presence of coronary angioplasty implant and graft; Z95.1 Presence of aortocoronary bypass graft; Z87.891 Personal history of nicotine dependence
CPT/HCPCS: 36415; 80048; 81003; 82009; 85025; 93005; 96360; 99284

== ENCOUNTER 2019-10-20 12:41 | Inpatient (IN) | payer MEDICARE ==
[2019-10-20] MEDS ORDERED: ASPIRIN 81 MG PO STA (12:44)
[2019-10-20] MEDS ORDERED: SODIUM CHLORIDE 0.9% 500 ML 500 ML IV ONE ×2 (12:44→14:17)
[2019-10-20] MEDS ORDERED: NITROGLYCERIN OINT 1 INCH/GM PACKET TOPICAL STA (12:44)
[2019-10-20] MEDS ORDERED: ONDANSETRON 4 MG/2 ML VIAL IVP STA ×2 (12:44→15:12)
[2019-10-20] MEDS ORDERED: SODIUM CHLORIDE 0.9% 1,000 ML IV ONE (12:44)
[2019-10-20] MEDS ORDERED: MORPHINE SULFATE 4 MG/ML SYRINGE IVP STA ×3 (12:45→14:24)
--- NOTE | 2019-10-20 12:47 | ED ---
General Adult HPI - General Stated complaint: Poss STEMI Time Seen by Provider: 10/20/19 12:41 Source: patient, RN notes reviewed, old records reviewed - History of Present Illness Initial comments: This is a 62-year-old male who presents emergency Department with a history of diabetes and recent bypass surgery 6-8 weeks ago according to EMS. Patient states he hasn't been feeling well lately he's been vomiting all morning and unable to keep any of his meds down or any of his pain meds down. Patient states he did have some chest pressure earlier but right now he just feels extremely tired and thirsty and short of breath. She denies any recent fever chills or cough. Patient denies any swelling to the legs or calf tenderness. Patient denies any abdominal pain does state he is still nauseated. - Related Data Home Medications Medication Instructions Recorded Confirmed INSULIN ASPART (NovoLOG) [NovoLOG See Protocol SQ ACHS 09/16/19 10/20/19 (formulary)] Sennosides-Docusate Sodium 2 tab PO HS 09/16/19 10/20/19 [Senokot-S] oxyCODONE HCL [oxyCODONE HCL ER] 15 mg PO Q12H 09/16/19 10/20/19 Previous Rx's Medication Instructions Recorded DULoxetine HCL [Cymbalta] 60 mg PO DAILY capsule. 08/15/19 oxyCODONE ER [OxyCONTIN] 80 mg PO BID tab.er.12h 08/15/19 Aspirin 325 mg PO DAILY #30 tab 09/01/19 Atorvastatin [Lipitor] 40 mg PO DAILY #30 tab 09/01/19 Clopidogrel [Plavix] 75 mg PO DAILY #30 tab 09/01/19 Insulin Glargine,Hum.rec.anlog 18 unit SQ HS #0 09/01/19 [Basaglar Kwikpen U-100] Losartan [Cozaar] 25 mg PO DAILY #30 tab 09/01/19 Metoprolol Tartrate [Lopressor] 100 mg PO BID #120 tab 09/01/19 Pantoprazole [Protonix] 40 mg PO AC-BRKFST #30 tablet. 09/01/19 amLODIPine [Norvasc] 5 mg PO DAILY #30 tab 09/01/19 Acetaminophen Tab [Tylenol] 650 mg PO Q6HR PRN tab 09/17/19 Furosemide [Lasix] 40 mg PO DAILY #5 tablet 09/17/19 Potassium Chloride ER [K-Dur 20] 40 meq PO DAILY #5 tab 09/17/19 Allergies Allergy/AdvReac Type Severity Reaction Status Date / Time No Known Allergies Allergy Verified 10/20/19 13:14 Review of Systems ROS Statement: Those systems with pertinent positive or pertinent negative responses have been documented in the HPI. ROS Other: All systems not noted in ROS Statement are negative. Past Medical History Past Medical History: Atrial Fibrillation, Coronary Artery Disease (CAD), Chest Pain / Angina, Diabetes Mellitus, GERD/Reflux, Hyperlipidemia, Hypertension, Myocardial Infarction (CT) Additional Past Medical History / Comment(s): Pt had CABG 07/2019 and had post op Afib/UTI with pseudomonas aeruginosa, ischemic cardiomyopathy, IDDM type II, past R scrotal abscess with sepsis, chronic lower back pain and bilateral leg pain, Last Myocardial Infarction Date:: 03/20/15 History of Any Multi-Drug Resistant Organisms: None Reported Past Surgical History: Back Surgery, Coronary Bypass/CABG, Heart Catheterization, Heart Catheterization With Stent, Orthopedic Surgery Additional Past Surgical History / Comment(s): 08/23/2019 CABG 3 vessels, PCI with total of 5 stents, L ankle ligament repair, R leg ORIF, low back surgery, colonoscopy. Past Anesthesia/Blood Transfusion Reactions: No Reported Reaction Additional Past Anesthesia/Blood Transfusion Reaction / Comment(s): Pt has received blood in past without reaction. Date of Last Stent Placement:: 02/2015 Past Psychological History: No Psychological Hx Reported Past Alcohol Use History: None Reported Past Drug Use History: Marijuana - Past Family History Sister(s) Family Medical History: Coronary Artery Disease (CAD), Hypertension Father Family Medical History: Coronary Artery Disease (CAD), Diabetes Mellitus, Deep Vein Thrombosis (DVT), Hypertension Additional Family Medical History / Comment(s): Father at age 58yrs. He of blood clot from leg injury that went to his heart. General Exam - General Exam Comments Initial Comments: GENERAL: Patient is well-developed and well-nourished. Patient is nontoxic and well- hydrated and is in moderate distress. ENT: Neck is soft and supple. No significant lymphadenopathy is noted. Oropharynx is clear. Dry mucous membranes. Neck has full range of motion without eliciting any pain. EYES: The sclera were anicteric and conjunctiva were pink and moist. Extraocular movements were intact and pupils were equal round and reactive to light. Eyelids were unremarkable. PULMONARY: Unlabored respirations. Good breath sounds bilaterally. No audible rales rhonchi or wheezing was noted. CARDIOVASCULAR: Patient is tachycardic at about 100 beats a minute. ABDOMEN Soft and nontender with normal bowel sounds. SKIN: Skin is clear with no lesions or rashes and otherwise unremarkable. NEUROLOGIC: Patient is alert and oriented x3. Cranial nerves II through XII are grossly intact. Motor and sensory are also intact. Normal speech, volume and content. Symmetrical smile. MUSCULOSKELETAL: Normal extremities with adequate strength and full range of motion. No lower extremity swelling or edema. No calf tenderness. LYMPHATICS: No significant lymphadenopathy is noted PSYCHIATRIC: Normal psychiatric evaluation. Course Vital Signs 10/20/19 10/20/19 10/20/19 12:46 12:48 13:10 Temperature 98.9 F Pulse Rate 128 H 114 H 107 H Respiratory 20 19 19 Rate Blood Pressure 187/108 172/153 200/109 O2 Sat by Pulse 100 100 100 Oximetry 10/20/19 10/20/19 10/20/19 13:35 13:49 14:17 Temperature Pulse Rate 122 H 122 H Respiratory 19 21 Rate Blood Pressure 198/146 157/103 150/78 O2 Sat by Pulse 100 Oximetry 10/20/19 10/20/19 15:14 15:43 Temperature 97.3 F L Pulse Rate 146 H 151 H Respiratory 18 18 Rate Blood Pressure 157/80 141/73 O2 Sat by Pulse 98 99 Oximetry Medical Decision Making - Medical Decision Making EKG shows sinus tachycardia at 129 bpm OR interval 64 QRS 106 QT interval 410 QTC is 600. Patient's EKG shows some Q waves in the inferior leads which was seen in previous EKGs. Chest x-ray shows no acute abnormality. I spoke with Dr. Lovell he agreed to admit the patient admitted the patient wrote admitting orders. Patient was given 2 L of fluid in the emergency department started on insulin drip. I consult cardiology. Patient was also giv en pain medicine and Zofran. Patient was ordered admitted but nurses noted the patient's heart rate often repeating EKG it look like atrial flutter with a 2-1 block at 148 beats a minute QRS is 104 QTC is 352 QTC is 552. Patient was then started on a Cardizem drip after a bolus of 10 mg was given. - Lab Data Result diagrams: 10/20/19 12:54 10/20/19 12:54 Lab Results 10/20/19 10/20/19 10/20/19 Range/Units 12:45 12:54 12:54 WBC 15.0 H (3.8-10.6) k/uL RBC 5.35 (4.30-5.90) m/uL Hgb 15.2 (13.0-17.5) gm/dL Hct 48.1 (39.0-53.0) % MCV 89.9 D (80.0-100.0) fL MCH 28.4 (25.0-35.0) pg MCHC 31.6 (31.0-37.0) g/dL RDW 15.3 (11.5-15.5) % Plt Count 502 H (150-450) k/uL Neutrophils % 93 % Lymphocytes % 3 % Monocytes % 2 % Eosinophils % 0 % Basophils % 0 % Neutrophils # 14.0 H (1.3-7.7) k/uL Lymphocytes # 0.5 L (1.0-4.8) k/uL Monocytes # 0.4 (0-1.0) k/uL Eosinophils # 0.1 (0-0.7) k/uL Basophils # 0.1 (0-0.2) k/uL Hypochromasia Marked PT 9.8 (9.0-12.0) sec INR 0.9 (<1.2) APTT 23.2 (22.0-30.0) sec Sodium (137-145) mmol/L Potassium (3.5-5.1) mmol/L Chloride (98-107) mmol/L Carbon Dioxide (22-30) mmol/L Anion Gap mmol/L BUN (9-20) mg/dL Creatinine (0.66-1.25) mg/dL Est GFR (CKD-EPI)AfAm (>60 ml/min/1.73 sqM) Est GFR (CKD-EPI)NonAf (>60 ml/min/1.73 sqM) Glucose (74-99) mg/dL POC Glucose (mg/dL) 382 H (75-99) mg/dL POC Glu Child Care Associate Teacher ID Naomie Rosen Calcium (8.4-10.2) mg/dL Magnesium (1.6-2.3) mg/dL Total Bilirubin (0.2-1.3) mg/dL AST (17-59) U/L ALT (4-49) U/L Alkaline Phosphatase (38-126) U/L Troponin I (0.000-0.034) ng/mL Total Protein (6.3-8.2) g/dL Albumin (3.5-5.0) g/dL Urine Color Urine Appearance (Clear) Urine pH (5.0-8.0) Ur Specific [place] (1.001-1.035) Urine Protein (Negative) Urine Glucose (UA) (Negative) Urine Ketones (Negative) Urine Blood (Negative) Urine Nitrite (Negative) Urine Bilirubin (Negative) Urine Urobilinogen (<2.0) mg/dL Ur Leukocyte Esterase (Negative) Urine RBC (0-5) /hpf Urine WBC (0-5) /hpf Ur Squamous Epith Cells (0-4) /hpf Urine Bacteria (None) /hpf Acetone, Qual (Negative) 10/20/19 10/20/19 10/20/19 Range/Units 12:54 12:54 12:54 WBC (3.8-10.6) k/uL RBC (4.30-5.90) m/uL Hgb (13.0-17.5) gm/dL Hct (39.0-53.0) % MCV (80.0-100.0) fL MCH (25.0-35.0) pg MCHC (31.0-37.0) g/dL RDW (11.5-15.5) % Plt Count (150-450) k/uL Neutrophils % % Lymphocytes % % Monocytes % % Eosinophils % % Basophils % % Neutrophils # (1.3-7.7) k/uL Lymphocytes # (1.0-4.8) k/uL Monocytes # (0-1.0) k/uL Eosinophils # (0-0.7) k/uL Basophils # (0-0.2) k/uL Hypochromasia PT (9.0-12.0) sec INR (<1.2) APTT (22.0-30.0) sec Sodium 138 (137-145) mmol/L Potassium 3.5 (3.5-5.1) mmol/L Chloride 101 (98-107) mmol/L Carbon Dioxide 17 L (22-30) mmol/L Anion Gap 20 mmol/L BUN 12 (9-20) mg/dL Creatinine 0.63 L (0.66-1.25) mg/dL Est GFR (CKD-EPI)AfAm >90 (>60 ml/min/1.73 sqM) Est GFR (CKD-EPI)NonAf >90 (>60 ml/min/1.73 sqM) Glucose 391 H (74-99) mg/dL POC Glucose (mg/dL) (75-99) mg/dL POC Glu Child Care Associate Teacher ID Calcium 10.2 (8.4-10.2) mg/dL Magnesium 1.6 (1.6-2.3) mg/dL Total Bilirubin 0.9 (0.2-1.3) mg/dL AST 38 (17-59) U/L ALT 25 (4-49) U/L Alkaline Phosphatase 219 H (38-126) U/L Troponin I 0.024 (0.000-0.034) ng/mL Total Protein 8.1 (6.3-8.2) g/dL Albumin 4.6 (3.5-5.0) g/dL Urine Color Urine Appearance (Clear) Urine pH (5.0-8.0) Ur Specific [place] (1.001-1.035) Urine Protein (Negative) Urine Glucose (UA) (Negative) Urine Ketones (Negative) Urine Blood (Negative) Urine Nitrite (Negative) Urine Bilirubin (Negative) Urine Urobilinogen (<2.0) mg/dL Ur Leukocyte Esterase (Negative) Urine RBC (0-5) /hpf Urine WBC (0-5) /hpf Ur Squamous Epith Cells (0-4) /hpf Urine Bacteria (None) /hpf Acetone, Qual Positive (Negative) 10/20/19 Range/Units 13:36 WBC (3.8-10.6) k/uL RBC (4.30-5.90) m/uL Hgb (13.0-17.5) gm/dL Hct (39.0-53.0) % MCV (80.0-100.0) fL MCH (25.0-35.0) pg MCHC (31.0-37.0) g/dL RDW (11.5-15.5) % Plt Count (150-450) k/uL Neutrophils % % Lymphocytes % % Monocytes % % Eosinophils % % Basophils % % Neutrophils # (1.3-7.7) k/uL Lymphocytes # (1.0-4.8) k/uL Monocytes # (0-1.0) k/uL Eosinophils # (0-0.7) k/uL Basophils # (0-0.2) k/uL Hypochromasia PT (9.0-12.0) sec INR (<1.2) APTT (22.0-30.0) sec Sodium (137-145) mmol/L Potassium (3.5-5.1) mmol/L Chloride (98-107) mmol/L Carbon Dioxide (22-30) mmol/L Anion Gap mmol/L BUN (9-20) mg/dL Creatinine (0.66-1.25) mg/dL Est GFR (CKD-EPI)AfAm (>60 ml/min/1.73 sqM) Est GFR (CKD-EPI)NonAf (>60 ml/min/1.73 sqM) Glucose (74-99) mg/dL POC Glucose (mg/dL) (75-99) mg/dL POC Glu Child Care Associate Teacher ID Calcium (8.4-10.2) mg/dL Magnesium (1.6-2.3) mg/dL Total Bilirubin (0.2-1.3) mg/dL AST (17-59) U/L ALT (4-49) U/L Alkaline Phosphatase (38-126) U/L Troponin I (0.000-0.034) ng/mL Total Protein (6.3-8.2) g/dL Albumin (3.5-5.0) g/dL Urine Color Light Yellow Urine Appearance Clear (Clear) Urine pH 6.0 (5.0-8.0) Ur Specific [place] 1.016 (1.001-1.035) Urine Protein 3+ H (Negative) Urine Glucose (UA) 4+ H (Negative) Urine Ketones 3+ H (Negative) Urine Blood Small H (Negative) Urine Nitrite Negative (Negative) Urine Bilirubin Negative (Negative) Urine Urobilinogen <2.0 (<2.0) mg/dL Ur Leukocyte Esterase Negative (Negative) Urine RBC 5 (0-5) /hpf Urine WBC 1 (0-5) /hpf Ur Squamous Epith Cells <1 (0-4) /hpf Urine Bacteria Rare H (None) /hpf Acetone, Qual (Negative) Critical Care Time Critical Care Time: Yes Total Critical Care Time: 35 Disposition Clinical Impression: Diabetic ketoacidosis, Hypertensive urgency, Chest pain, Atrial flutter with rapid ventricular response Disposition: ADMITTED IP TO THIS [facility] Time of Disposition: 14:19
[2019-10-20 12:48] LABS: Glucose,Whole Blood 382 mg/dL (75-99)
[2019-10-20] MEDS ORDERED: hydrALAZINE HCL 20 MG/ML 1 ML VIAL IVP STA (13:16)
[2019-10-20 13:31] LABS: Basophils # (A) 0.1 k/uL (0-0.2); Basophils % (A) 0 %; Eosinophils # (A) 0.1 k/uL (0-0.7); Eosinophils % (A) 0 %; HCT 48.1 % (39.0-53.0); HGB 15.2 gm/dL (13.0-17.5); Hypochromasia Marked; Lymphocytes # (A) 0.5 k/uL (1.0-4.8); Lymphocytes % (A) 3 %; MCH 28.4 pg (25.0-35.0); MCHC 31.6 g/dL (31.0-37.0); Monocytes # (A) 0.4 k/uL (0-1.0); Monocytes % (A) 2 %; Neutrophils % (A) 93 %; Platelet Count 502 k/uL (150-450); RBC 5.35 m/uL (4.30-5.90); RDW 15.3 % (11.5-15.5)
[2019-10-20 13:41] LABS: INR 0.9 (<1.2); Partial Thromboplastin Time 23.2 sec (22.0-30.0); Prothrombin Time 9.8 sec (9.0-12.0)
[2019-10-20 13:43] LABS: ALT 25 U/L (4-49); AST 38 U/L (17-59); African American GFR (CKD) >90 (>60 ml/min/1.73 sqM); Albumin 4.6 g/dL (3.5-5.0); Alkaline Phosphatase 219 U/L (38-126); Anion Gap 20 mmol/L; Blood Urea Nitrogen 12 mg/dL (9-20); Calcium 10.2 mg/dL (8.4-10.2); Carbon Dioxide 17 mmol/L (22-30); Chloride 101 mmol/L (98-107); Glucose 391 mg/dL (74-99); Magnesium 1.6 mg/dL (1.6-2.3); Non-African American GFR(CKD) >90 (>60 ml/min/1.73 sqM); Sodium 138 mmol/L (137-145); Total Bilirubin 0.9 mg/dL (0.2-1.3); Total Protein 8.1 g/dL (6.3-8.2)
[2019-10-20] MEDS ORDERED: METOCLOPRAMIDE 5 MG/ML 2 ML VIAL IVP STA (13:48)
[2019-10-20 13:50] LABS: Appearance,Urine Clear (Clear); Bacteria,Urine Rare /hpf; Bilirubin,Urine Negative (Negative); Blood,Urine Small (Negative); Color,Urine Light Yellow; Glucose,Urine (UA) 4+ (Negative); Leukocyte Esterase,Urine Negative (Negative); Nitrite,Urine Negative (Negative); Protein,Urine 3+ (Negative); RBC,Urine 5 /hpf (0-5); Specific Gravity,Urine 1.016 (1.001-1.035); Squamous Epithelial Cell,Urine <1 /hpf (0-4); Urobilinogen,Urine <2.0 mg/dL (<2.0); WBC,Urine 1 /hpf (0-5)
[2019-10-20 13:50] LABS: MCV 89.9 fL (80.0-100.0)
[2019-10-20 13:51] LABS: Potassium 3.5 mmol/L (3.5-5.1)
--- NOTE | 2019-10-20 13:56 | XR ---
EXAMINATION TYPE: XR chest 2V DATE OF EXAM: 10/20/2019 COMPARISON: Chest x-ray September 17, 2019 HISTORY: Chest pain. TECHNIQUE: Frontal and lateral views of the chest are obtained. FINDINGS: Post-CABG changes with mediastinal clips and sternal wires is present. There is chronic par enchymal changes bilaterally without suspicious new focal air space opacity, pleural effusion, or pne umothorax seen. The cardiac silhouette size is enlarged with atherosclerotic aorta. Degenerative padmini nge bilateral shoulders. IMPRESSION: Chronic changes and cardiomegaly without acute pulmonary process.
[2019-10-20 14:15] LABS: Ketones,Urine 3+ (Negative)
[2019-10-20] MEDS ORDERED: INSULIN REGULAR BOLUS (FROM DRIP BAG) IV ONE (14:19)
[2019-10-20] MEDS ORDERED: DILTIAZEM DRIP BOLUS FROM BAG 1 MG SOLN IV ONE (15:12)
[2019-10-20 15:18] LABS: Glucose,Whole Blood 422 mg/dL (75-99)
[2019-10-20] MEDS: INSULIN REGULAR 100 UNIT in SODIUM CHLORIDE 0.9% 100 ML IV SCH (15:29)
[2019-10-20] MEDS: SODIUM CHLORIDE 0.9% 1,000 ML IV SCH ×2 (15:32→21:25)
[2019-10-20] MEDS: DILTIAZEM 125 MG in SODIUM CHLORIDE 0.9% 100 ML IV SCH (15:37)
[2019-10-20] MEDS: MORPHINE SULFATE 4 MG/ML SYRINGE IVP PRN (15:40)
[2019-10-20 16:21] LABS: African American GFR (CKD) >90 (>60 ml/min/1.73 sqM); Anion Gap 22 mmol/L; Blood Urea Nitrogen 11 mg/dL (9-20); Carbon Dioxide 12 mmol/L (22-30); Chloride 107 mmol/L (98-107); Glucose 392 mg/dL (74-99); Non-African American GFR(CKD) >90 (>60 ml/min/1.73 sqM); Phosphorus 2.5 mg/dL (2.5-4.5); Potassium 2.9 mmol/L (3.5-5.1); Sodium 141 mmol/L (137-145)
[2019-10-20 16:50] LABS: Glucose,Whole Blood 326 mg/dL (75-99)
[2019-10-20 18:09] LABS: Glucose,Whole Blood 267 mg/dL (75-99)
[2019-10-20 19:02] LABS: Glucose,Whole Blood 262 mg/dL (75-99)
[2019-10-20 20:03] LABS: Glucose,Whole Blood 141 mg/dL (75-99)
[2019-10-20 21:02] LABS: Glucose,Whole Blood 82 mg/dL (75-99)
[2019-10-20] MEDS: oxyCODONE-APAP 10-325MG 1 EACH TAB PO PRN (21:04)
[2019-10-20] MEDS: METOPROLOL TARTRATE 50 MG TAB PO SCH (21:05)
[2019-10-20] MEDS: ATORVASTATIN 40 MG TAB PO SCH (21:05)
[2019-10-20] MEDS: D5-0.45% NACL WITH KCL 20MEQ/L 1,000 ML IV SCH (21:08)
[2019-10-20 21:31] LABS: Glucose,Whole Blood 130 mg/dL (75-99)
[2019-10-20 21:36] LABS: African American GFR (CKD) >90 (>60 ml/min/1.73 sqM); Anion Gap 11 mmol/L; Blood Urea Nitrogen 12 mg/dL (9-20); Carbon Dioxide 22 mmol/L (22-30); Chloride 111 mmol/L (98-107); Glucose 103 mg/dL (74-99); Non-African American GFR(CKD) >90 (>60 ml/min/1.73 sqM); Phosphorus 1.3 mg/dL (2.5-4.5); Sodium 144 mmol/L (137-145)
[2019-10-20 21:38] LABS: Potassium 2.5 mmol/L (3.5-5.1)
[2019-10-20] MEDS ORDERED: Potassium Replacement Protocol 1 EACH MISC MISCELLANE PRN (21:59)
[2019-10-20] MEDS ORDERED: Magnesium Replacement Protocol 1 EACH MISC MISCELLANE PRN (21:59)
[2019-10-20] MEDS ORDERED: INSULIN DETEMIR (LEVEMIR) 100 UNIT/ML SYR SQ SCH (22:00)
[2019-10-20] MEDS ORDERED: Phosphorus Replacement Protoco 1 EACH MISC MISCELLANE PRN (22:06)
[2019-10-20] MEDS: MAGNESIUM SULFATE-D5W PMX 1 GM in DEXTROSE/WATER 1 100ML.BAG IVPB SCH ×2 (22:25→23:15)
[2019-10-20] MEDS: POTASSIUM CHLORIDE ER 20 MEQ TAB.ER PO SCH ×2 (22:26→22:31)
[2019-10-20 22:31] LABS: Glucose,Whole Blood 198 mg/dL (75-99)
[2019-10-20] MEDS: POTASSIUM PHOSPHATE 10 MMOL in SODIUM CHLORIDE 0.9% 250 ML IV SCH (22:46)
[2019-10-21] MEDS: POTASSIUM PHOSPHATE 10 MMOL in SODIUM CHLORIDE 0.9% 250 ML IV SCH ×2 (01:00→03:23)
[2019-10-21 02:07] LABS: Glucose,Whole Blood 246 mg/dL (75-99)
[2019-10-21 02:40] LABS: ALT 18 U/L (4-49); AST 21 U/L (17-59); African American GFR (CKD) >90 (>60 ml/min/1.73 sqM); Albumin 3.3 g/dL (3.5-5.0); Alkaline Phosphatase 133 U/L (38-126); Anion Gap 8 mmol/L; Blood Urea Nitrogen 12 mg/dL (9-20); Calcium 8.9 mg/dL (8.4-10.2); Carbon Dioxide 22 mmol/L (22-30); Chloride 109 mmol/L (98-107); Glucose 239 mg/dL (74-99); Non-African American GFR(CKD) >90 (>60 ml/min/1.73 sqM); Potassium 3.7 mmol/L (3.5-5.1); Sodium 139 mmol/L (137-145); Total Bilirubin 0.4 mg/dL (0.2-1.3)
[2019-10-21 03:25] LABS: Glucose,Whole Blood 229 mg/dL (75-99)
[2019-10-21] MEDS: MORPHINE SULFATE 4 MG/ML SYRINGE IVP PRN ×2 (03:25→08:03)
[2019-10-21] MEDS ORDERED: FUROSEMIDE 10 MG/ML 4 ML VIAL IV STA (03:33)
[2019-10-21] MEDS ORDERED: FUROSEMIDE 10 MG/ML 4 ML VIAL ONE (03:34)
[2019-10-21] MEDS: DILTIAZEM 125 MG in SODIUM CHLORIDE 0.9% 100 ML IV SCH (03:40)
[2019-10-21] MEDS: ONDANSETRON 4 MG/2 ML VIAL IVP PRN ×2 (03:41→08:45)
[2019-10-21 06:05] LABS: Glucose,Whole Blood 264 mg/dL (75-99)
[2019-10-21] MEDS: D5-0.45% NACL WITH KCL 20MEQ/L 1,000 ML IV SCH ×4 (06:10→22:53)
[2019-10-21] MEDS: INSULIN REGULAR 100 UNIT in SODIUM CHLORIDE 0.9% 100 ML IV SCH (06:10)
[2019-10-21] MEDS: SODIUM CHLORIDE 0.9% 1,000 ML IV SCH ×4 (06:10→22:52)
[2019-10-21] MEDS: INSULIN ASPART (NovoLOG) 100 UNIT/ML VIAL SQ SCH ×4 (06:14→22:53)
[2019-10-21] MEDS: PANTOPRAZOLE 40 MG TABLET PO SCH (06:15)
[2019-10-21 07:17] LABS: HCT 43.7 % (39.0-53.0); HGB 13.8 gm/dL (13.0-17.5); Hypochromasia Moderate; MCHC 31.6 g/dL (31.0-37.0); MCV 88.4 fL (80.0-100.0); Mean Platelet Volume 6.5; Platelet Count 494 k/uL (150-450); RBC 4.94 m/uL (4.30-5.90); RDW 15.6 % (11.5-15.5); WBC 23.2 k/uL (3.8-10.6)
[2019-10-21 07:42] LABS: ALT 22 U/L (4-49); AST 30 U/L (17-59); African American GFR (CKD) >90 (>60 ml/min/1.73 sqM); Albumin 4.1 g/dL (3.5-5.0); Alkaline Phosphatase 179 U/L (38-126); Anion Gap 12 mmol/L; Blood Urea Nitrogen 12 mg/dL (9-20); Calcium 9.1 mg/dL (8.4-10.2); Carbon Dioxide 24 mmol/L (22-30); Chloride 104 mmol/L (98-107); Glucose 274 mg/dL (74-99); Magnesium 1.9 mg/dL (1.6-2.3); Non-African American GFR(CKD) >90 (>60 ml/min/1.73 sqM); Sodium 140 mmol/L (137-145); Total Bilirubin 0.7 mg/dL (0.2-1.3); Total Protein 7.2 g/dL (6.3-8.2)
[2019-10-21] MEDS: METOPROLOL TARTRATE 50 MG TAB PO SCH ×2 (08:06→20:29)
[2019-10-21] MEDS: amLODIPine 5 MG TAB PO SCH (08:07)
[2019-10-21] MEDS: DULoxetine HCL 60 MG CAPSULE.DR PO SCH (08:07)
[2019-10-21] MEDS: CLOPIDOGREL 75 MG TAB PO SCH (08:07)
[2019-10-21] MEDS ORDERED: Potassium Replacement Protocol 1 EACH MISC MISCELLANE PRN ×2 (08:16→16:33)
[2019-10-21] MEDS: POTASSIUM CHLORIDE ER 20 MEQ TAB.ER PO SCH ×4 (08:44→17:57)
[2019-10-21] MEDS ORDERED: ASPIRIN 325 MG TAB PO SCH (09:00)
[2019-10-21] MEDS ORDERED: LOSARTAN 25 MG TAB PO SCH (09:00)
[2019-10-21] MEDS ORDERED: INSULIN DETEMIR (LEVEMIR) 100 UNIT/ML SYR SQ ONE (09:14)
[2019-10-21 09:55] LABS: Glucose,Whole Blood 216 mg/dL (75-99)
--- NOTE | 2019-10-21 10:45 | P.GSCN ---
History of Present Illness Consult date: 10/21/19 Reason for Consult: Patient known to us from recent CABG Requesting physician: Puma Lovell History of present illness: This is a 64-year-old gentleman who follows on an outpatient basis with Dr. Brandy Belcher. He has a previous medical history of multivessel coronary artery disease status post three-vessel CABG 08/23/2019 with postoperative paroxysmal atrial fibrillation and Pseudomonas urinary tract infection, ischemic cardiomyopathy, hypertension, hyperlipidemia, uncontrolled insulin-dependent diabetes mellitus with hyperglycemia, previous tobacco dependence, marijuana use, and chronic low back pain on chronic opioid narcotics. Post surgical admission he presented back to the emergency room twice, once for shortness of breath requiring IV Lasix after eating salty meals, and the second for hypertension and hyperglycemia. He presented to [facility] emergency room again yesterday with complaints of not feeling well, nausea, vomiting, extreme thirst and shortness of breath, and being unable to keep any of his medications down. Chest x-ray demonstrated no acute process. EKG demonstrated A. fib with RVR and patient was initiated on IV Cardizem. WBC 15, hemoglobin 15.2, BUN 11, creatinine 0.56, potassium 2.9, blood glucose 392, magnesium 1.6, anion gap 20, urinalysis with proteinuria, glucosuria, positive ketones. Potassium was replaced and patient was started on IV insulin. He was admitted for management of A. fib RVR as well as DKA with consultation placed to cardiology. Dr. Denson from cardiothoracic surgery was consulted as the patient is known to us from previous CABG. Review of Systems Review of systems was completed and was negative except as noted - Constitutional Reports chronic pain, Reports fatigue - Respiratory Reports dyspnea - Gastrointestinal Reports nausea, Reports vomiting - Endocrine Reports excessive thirst, Reports high blood sugars Past Medical History Past Medical History: Atrial Fibrillation, Coronary Artery Disease (CAD), Chest Pain / Angina, Diabetes Mellitus, GERD/Reflux, Hyperlipidemia, Hypertension, Myocardial Infarction ([place]) Additional Past Medical History / Comment(s): Pt had CABG 07/2019 and had post op Afib/UTI with pseudomonas aeruginosa, ischemic cardiomyopathy, IDDM type II, past R scrotal abscess with sepsis, chronic lower back pain and bilateral leg pain, Last Myocardial Infarction Date:: 03/20/15 History of Any Multi-Drug Resistant Organisms: None Reported Past Surgical History: Back Surgery, Coronary Bypass/CABG, Heart Catheterization, Heart Catheterization With Stent, Orthopedic Surgery Additional Past Surgical History / Comment(s): 08/23/2019 CABG 3 vessels, PCI with total of 5 stents, L ankle ligament repair, R leg ORIF, low back surgery, colonoscopy. Past Anesthesia/Blood Transfusion Reactions: No Reported Reaction Additional Past Anesthesia/Blood Transfusion Reaction / Comm: Pt has received blood in past without reaction. Date of Last Stent Placement:: 02/2015 Past Psychological History: No Psychological Hx Reported Smoking Status: Former smoker Past Alcohol Use History: None Reported Past Drug Use History: Marijuana - Past Family History Sister(s) Family Medical History: Coronary Artery Disease (CAD), Hypertension Father Family Medical History: Coronary Artery Disease (CAD), Diabetes Mellitus, Deep Vein Thrombosis (DVT), Hypertension Additional Family Medical History / Comment(s): Father at age 58yrs. He of blood clot from leg injury that went to his heart. Medications and Allergies Home Medications Medication Instructions Recorded Confirmed Type DULoxetine HCL [Cymbalta] 60 mg PO DAILY capsule. 08/15/19 10/20/19 Rx oxyCODONE ER [OxyCONTIN] 80 mg PO BID tab.er.12h 08/15/19 10/20/19 Rx Aspirin 325 mg PO DAILY #30 tab 09/01/19 10/20/19 Rx Atorvastatin [Lipitor] 40 mg PO DAILY #30 tab 09/01/19 10/20/19 Rx Clopidogrel [Plavix] 75 mg PO DAILY #30 tab 09/01/19 10/20/19 Rx Insulin Glargine,Hum.rec.anlog 18 unit SQ HS #0 09/01/19 10/20/19 Rx [Basaglar Kwikpen U-100] Losartan [Cozaar] 25 mg PO DAILY #30 tab 09/01/19 10/20/19 Rx Metoprolol Tartrate [Lopressor] 100 mg PO BID #120 tab 09/01/19 10/20/19 Rx Pantoprazole [Protonix] 40 mg PO AC-BRKFST #30 tablet. 09/01/19 10/20/19 Rx amLODIPine [Norvasc] 5 mg PO DAILY #30 tab 09/01/19 10/20/19 Rx INSULIN ASPART (NovoLOG) [NovoLOG See Protocol SQ ACHS 09/16/19 10/20/19 History (formulary)] Sennosides-Docusate Sodium 2 tab PO HS 09/16/19 10/20/19 History [Senokot-S] oxyCODONE HCL [oxyCODONE HCL ER] 15 mg PO Q12H 09/16/19 10/20/19 History Acetaminophen Tab [Tylenol] 650 mg PO Q6HR PRN tab 09/17/19 10/20/19 Rx Furosemide [Lasix] 40 mg PO DAILY #5 tablet 09/17/19 10/20/19 Rx Potassium Chloride ER [K-Dur 20] 40 meq PO DAILY #5 tab 09/17/19 10/20/19 Rx Allergies Allergy/AdvReac Type Severity Reaction Status Date / Time No Known Allergies Allergy Verified 10/20/19 13:14 Surgical - Exam Vital Signs Temp Pulse Resp BP Pulse Ox 98.9 F 128 H 20 187/108 100 10/20/19 12:46 10/20/19 12:46 10/20/19 12:46 10/20/19 12:46 10/20/19 12:46 - General well developed, moderate distress, moderate pain, chronically ill - Eyes PERRL, normal ocular movement - ENT no hearing loss, poor prison - Neck no masses, no bruits, trachea midline - Respiratory Lungs sounds diminished bilaterally. Respirations even, nonlabored. Currently on 4 L nasal cannula with oxygen saturation 98%. - Cardiovascular S1, S2 present. Regular rate and rhythm, sinus rhythm on telemetry. Sternum stable. Palpable peripheral pulses bilaterally. No edema present. No calf pain or tenderness noted. - Abdomen Abdomen: soft, non tender, bowel sounds - Genitourinary Deferred - Rectum Deferred - Integumentary Anterior chest incision healing without redness or drainage. Scabs present, particularly at the distal end but dried without any drainage present no rash, no growths - Neurologic normal coordination, normal sensation - Musculoskeletal normal posture - Psychiatric oriented to time, oriented to person, oriented to place, speech is normal, memory intact Results - Labs 10/21/19 06:51 10/21/19 06:51 Abnormal Lab Results - Last 24 Hours (Table) 10/20/19 10/20/19 10/20/19 Range/Units 12:45 12:54 12:54 WBC 15.0 H (3.8-10.6) k/uL RDW (11.5-15.5) % Plt Count 502 H (150-450) k/uL Neutrophils # 14.0 H (1.3-7.7) k/uL Lymphocytes # 0.5 L (1.0-4.8) k/uL Potassium (3.5-5.1) mmol/L Chloride (98-107) mmol/L Carbon Dioxide 17 L (22-30) mmol/L Creatinine 0.63 L (0.66-1.25) mg/dL Glucose 391 H (74-99) mg/dL POC Glucose (mg/dL) 382 H (75-99) mg/dL Phosphorus (2.5-4.5) mg/dL Alkaline Phosphatase 219 H (38-126) U/L Troponin I (0.000-0.034) ng/mL C-Reactive Protein (<10.0) mg/L Total Protein (6.3-8.2) g/dL Albumin (3.5-5.0) g/dL Urine Protein (Negative) Urine Glucose (UA) (Negative) Urine Ketones (Negative) Urine Blood (Negative) Urine Bacteria (None) /hpf 10/20/19 10/20/19 10/20/19 Range/Units 13:36 15:06 15:35 WBC (3.8-10.6) k/uL RDW (11.5-15.5) % Plt Count (150-450) k/uL Neutrophils # (1.3-7.7) k/uL Lymphocytes # (1.0-4.8) k/uL Potassium 2.9 L (3.5-5.1) mmol/L Chloride (98-107) mmol/L Carbon Dioxide 12 L (22-30) mmol/L Creatinine 0.56 L (0.66-1.25) mg/dL Glucose 392 H (74-99) mg/dL POC Glucose (mg/dL) 422 H (75-99) mg/dL Phosphorus (2.5-4.5) mg/dL Alkaline Phosphatase (38-126) U/L Troponin I (0.000-0.034) ng/mL C-Reactive Protein (<10.0) mg/L Total Protein (6.3-8.2) g/dL Albumin (3.5-5.0) g/dL Urine Protein 3+ H (Negative) Urine Glucose (UA) 4+ H (Negative) Urine Ketones 3+ H (Negative) Urine Blood Small H (Negative) Urine Bacteria Rare H (None) /hpf 10/20/19 10/20/19 10/20/19 Range/Units 15:35 16:38 18:07 WBC (3.8-10.6) k/uL RDW (11.5-15.5) % Plt Count (150-450) k/uL Neutrophils # (1.3-7.7) k/uL Lymphocytes # (1.0-4.8) k/uL Potassium (3.5-5.1) mmol/L Chloride (98-107) mmol/L Carbon Dioxide (22-30) mmol/L Creatinine (0.66-1.25) mg/dL Glucose (74-99) mg/dL POC Glucose (mg/dL) 326 H 267 H (75-99) mg/dL Phosphorus (2.5-4.5) mg/dL Alkaline Phosphatase (38-126) U/L Troponin I 0.039 H* (0.000-0.034) ng/mL C-Reactive Protein (<10.0) mg/L Total Protein (6.3-8.2) g/dL Albumin (3.5-5.0) g/dL Urine Protein (Negative) Urine Glucose (UA) (Negative) Urine Ketones (Negative) Urine Blood (Negative) Urine Bacteria (None) /hpf 10/20/19 10/20/19 10/20/19 Range/Units 18:59 20:01 20:22 WBC (3.8-10.6) k/uL RDW (11.5-15.5) % Plt Count (150-450) k/uL Neutrophils # (1.3-7.7) k/uL Lymphocytes # (1.0-4.8) k/uL Potassium 2.5 L* (3.5-5.1) mmol/L Chloride 111 H (98-107) mmol/L Carbon Dioxide (22-30) mmol/L Creatinine (0.66-1.25) mg/dL Glucose 103 H (74-99) mg/dL POC Glucose (mg/dL) 262 H 141 H (75-99) mg/dL Phosphorus 1.3 L (2.5-4.5) mg/dL Alkaline Phosphatase (38-126) U/L Troponin I (0.000-0.034) ng/mL C-Reactive Protein (<10.0) mg/L Total Protein (6.3-8.2) g/dL Albumin (3.5-5.0) g/dL Urine Protein (Negative) Urine Glucose (UA) (Negative) Urine Ketones (Negative) Urine Blood (Negative) Urine Bacteria (None) /hpf 10/20/19 10/20/19 10/21/19 Range/Units 21:29 22:28 01:42 WBC (3.8-10.6) k/uL RDW (11.5-15.5) % Plt Count (150-450) k/uL Neutrophils # (1.3-7.7) k/uL Lymphocytes # (1.0-4.8) k/uL Potassium (3.5-5.1) mmol/L Chloride 109 H (98-107) mmol/L Carbon Dioxide (22-30) mmol/L Creatinine 0.64 L (0.66-1.25) mg/dL Glucose 239 H (74-99) mg/dL POC Glucose (mg/dL) 130 H 198 H (75-99) mg/dL Phosphorus (2.5-4.5) mg/dL Alkaline Phosphatase 133 H (38-126) U/L Troponin I (0.000-0.034) ng/mL C-Reactive Protein (<10.0) mg/L Total Protein 6.0 L (6.3-8.2) g/dL Albumin 3.3 L (3.5-5.0) g/dL Urine Protein (Negative) Urine Glucose (UA) (Negative) Urine Ketones (Negative) Urine Blood (Negative) Urine Bacteria (None) /hpf 10/21/19 10/21/19 10/21/19 Range/Units 02:02 03:23 06:02 WBC (3.8-10.6) k/uL RDW (11.5-15.5) % Plt Count (150-450) k/uL Neutrophils # (1.3-7.7) k/uL Lymphocytes # (1.0-4.8) k/uL Potassium (3.5-5.1) mmol/L Chloride (98-107) mmol/L Carbon Dioxide (22-30) mmol/L Creatinine (0.66-1.25) mg/dL Glucose (74-99) mg/dL POC Glucose (mg/dL) 246 H 229 H 264 H (75-99) mg/dL Phosphorus (2.5-4.5) mg/dL Alkaline Phosphatase (38-126) U/L Troponin I (0.000-0.034) ng/mL C-Reactive Protein (<10.0) mg/L Total Protein (6.3-8.2) g/dL Albumin (3.5-5.0) g/dL Urine Protein (Negative) Urine Glucose (UA) (Negative) Urine Ketones (Negative) Urine Blood (Negative) Urine Bacteria (None) /hpf 10/21/19 10/21/19 10/21/19 Range/Units 06:51 06:51 06:51 WBC 23.2 H (3.8-10.6) k/uL RDW 15.6 H (11.5-15.5) % Plt Count 494 H (150-450) k/uL Neutrophils # (1.3-7.7) k/uL Lymphocytes # (1.0-4.8) k/uL Potassium 3.0 L (3.5-5.1) mmol/L Chloride (98-107) mmol/L Carbon Dioxide (22-30) mmol/L Creatinine (0.66-1.25) mg/dL Glucose 274 H (74-99) mg/dL POC Glucose (mg/dL) (75-99) mg/dL Phosphorus (2.5-4.5) mg/dL Alkaline Phosphatase 179 H (38-126) U/L Troponin I (0.000-0.034) ng/mL C-Reactive Protein 22.9 H (<10.0) mg/L Total Protein (6.3-8.2) g/dL Albumin (3.5-5.0) g/dL Urine Protein (Negative) Urine Glucose (UA) (Negative) Urine Ketones (Negative) Urine Blood (Negative) Urine Bacteria (None) /hpf 10/21/19 Range/Units 09:35 WBC (3.8-10.6) k/uL RDW (11.5-15.5) % Plt Count (150-450) k/uL Neutrophils # (1.3-7.7) k/uL Lymphocytes # (1.0-4.8) k/uL Potassium (3.5-5.1) mmol/L Chloride (98-107) mmol/L Carbon Dioxide (22-30) mmol/L Creatinine (0.66-1.25) mg/dL Glucose (74-99) mg/dL POC Glucose (mg/dL) 216 H (75-99) mg/dL Phosphorus (2.5-4.5) mg/dL Alkaline Phosphatase (38-126) U/L Troponin I (0.000-0.034) ng/mL C-Reactive Protein (<10.0) mg/L Total Protein (6.3-8.2) g/dL Albumin (3.5-5.0) g/dL Urine Protein (Negative) Urine Glucose (UA) (Negative) Urine Ketones (Negative) Urine Blood (Negative) Urine Bacteria (None) /hpf Diabetes panel 10/20/19 10/20/19 10/20/19 Range/Units 12:54 15:35 20:22 Sodium 138 141 144 (137-145) mmol/L Potassium 3.5 2.9 L 2.5 L* (3.5-5.1) mmol/L Chloride 101 107 111 H (98-107) mmol/L Carbon Dioxide 17 L 12 L 22 (22-30) mmol/L BUN 12 11 12 (9-20) mg/dL Creatinine 0.63 L 0.56 L 0.77 (0.66-1.25) mg/dL Glucose 391 H 392 H 103 H (74-99) mg/dL Calcium 10.2 (8.4-10.2) mg/dL AST 38 (17-59) U/L ALT 25 (4-49) U/L Alkaline Phosphatase 219 H (38-126) U/L Total Protein 8.1 (6.3-8.2) g/dL Albumin 4.6 (3.5-5.0) g/dL 10/21/19 10/21/19 Range/Units 01:42 06:51 Sodium 139 140 (137-145) mmol/L Potassium 3.7 3.0 L (3.5-5.1) mmol/L Chloride 109 H 104 (98-107) mmol/L Carbon Dioxide 22 24 (22-30) mmol/L BUN 12 12 (9-20) mg/dL Creatinine 0.64 L 0.68 (0.66-1.25) mg/dL Glucose 239 H 274 H (74-99) mg/dL Calcium 8.9 9.1 (8.4-10.2) mg/dL AST 21 30 (17-59) U/L ALT 18 22 (4-49) U/L Alkaline Phosphatase 133 H 179 H (38-126) U/L Total Protein 6.0 L 7.2 (6.3-8.2) g/dL Albumin 3.3 L 4.1 (3.5-5.0) g/dL Calcium panel 10/20/19 10/20/19 10/20/19 Range/Units 12:54 15:35 20:22 Calcium 10.2 (8.4-10.2) mg/dL Phosphorus 2.5 1.3 L (2.5-4.5) mg/dL Albumin 4.6 (3.5-5.0) g/dL 10/21/19 10/21/19 Range/Units 01:42 06:51 Calcium 8.9 9.1 (8.4-10.2) mg/dL Phosphorus (2.5-4.5) mg/dL Albumin 3.3 L 4.1 (3.5-5.0) g/dL Pituitary panel 10/20/19 10/20/19 10/20/19 Range/Units 12:54 15:35 20:22 Sodium 138 141 144 (137-145) mmol/L Potassium 3.5 2.9 L 2.5 L* (3.5-5.1) mmol/L Chloride 101 107 111 H (98-107) mmol/L Carbon Dioxide 17 L 12 L 22 (22-30) mmol/L BUN 12 11 12 (9-20) mg/dL Creatinine 0.63 L 0.56 L 0.77 (0.66-1.25) mg/dL Glucose 391 H 392 H 103 H (74-99) mg/dL Calcium 10.2 (8.4-10.2) mg/dL 10/21/19 10/21/19 Range/Units 01:42 06:51 Sodium 139 140 (137-145) mmol/L Potassium 3.7 3.0 L (3.5-5.1) mmol/L Chloride 109 H 104 (98-107) mmol/L Carbon Dioxide 22 24 (22-30) mmol/L BUN 12 12 (9-20) mg/dL Creatinine 0.64 L 0.68 (0.66-1.25) mg/dL Glucose 239 H 274 H (74-99) mg/dL Calcium 8.9 9.1 (8.4-10.2) mg/dL Adrenal panel 10/20/19 10/20/19 10/20/19 Range/Units 12:54 15:35 20:22 Sodium 138 141 144 (137-145) mmol/L Potassium 3.5 2.9 L 2.5 L* (3.5-5.1) mmol/L Chloride 101 107 111 H (98-107) mmol/L Carbon Dioxide 17 L 12 L 22 (22-30) mmol/L BUN 12 11 12 (9-20) mg/dL Creatinine 0.63 L 0.56 L 0.77 (0.66-1.25) mg/dL Glucose 391 H 392 H 103 H (74-99) mg/dL Calcium 10.2 (8.4-10.2) mg/dL Total Bilirubin 0.9 (0.2-1.3) mg/dL AST 38 (17-59) U/L ALT 25 (4-49) U/L Alkaline Phosphatase 219 H (38-126) U/L Total Protein 8.1 (6.3-8.2) g/dL Albumin 4.6 (3.5-5.0) g/dL 10/21/19 10/21/19 Range/Units 01:42 06:51 Sodium 139 140 (137-145) mmol/L Potassium 3.7 3.0 L (3.5-5.1) mmol/L Chloride 109 H 104 (98-107) mmol/L Carbon Dioxide 22 24 (22-30) mmol/L BUN 12 12 (9-20) mg/dL Creatinine 0.64 L 0.68 (0.66-1.25) mg/dL Glucose 239 H 274 H (74-99) mg/dL Calcium 8.9 9.1 (8.4-10.2) mg/dL Total Bilirubin 0.4 0.7 (0.2-1.3) mg/dL AST 21 30 (17-59) U/L ALT 18 22 (4-49) U/L Alkaline Phosphatase 133 H 179 H (38-126) U/L Total Protein 6.0 L 7.2 (6.3-8.2) g/dL Albumin 3.3 L 4.1 (3.5-5.0) g/dL - Imaging Chest x-ray: report reviewed, image reviewed Assessment and Plan Assessment: 1. Paroxysmal atrial fibrillation with rapid ventricular response, currently in sinus rhythm 2. Diabetic ketoacidosis 3. History of symptomatic multivessel coronary artery disease, status post three-vessel CABG 08/23/2019 with postoperative paroxysmal atrial fibrillation and Pseudomonas UTI 4. History of ischemic cardiomyopathy 5. History of hypertension 6. History of hyperlipidemia 7. Uncontrolled insulin dependent diabetes mellitus with hyperglycemia 8. Previous tobacco dependence 9. Marijuana use 10. Chronic low-back pain on chronic opioid narcotics Plan: The patient was seen and examined at the bedside with Dr. Denson. Chart/diagnostics were reviewed. Atrial fibrillation management per cardiology, recommend anticoagulation. DKA management per primary care service. Wean O2 as tolerated. Continue Zofran for nausea. Pain control with current medication regimen. Continue lifting restrictions for another month. Encourage continued smoking cessation. Encourage appropriate follow-up with primary care physician for blood sugar management. At this point patient's medical optimization should be managed by primary care and cardiology services. Will see again if needed. Thank you Dr. Loevll for this consult. Please call us with any further questions. Time with Patient: Greater than 30
[2019-10-21 11:30] LABS: Glucose,Whole Blood 212 mg/dL (75-99)
[2019-10-21] MEDS: oxyCODONE-APAP 10-325MG 1 EACH TAB PO PRN ×2 (15:18→19:39)
--- NOTE | 2019-10-21 15:46 | P.CRDCN ---
History of Present Illness History of present illness: This is Fifi Oakes PA-C dictating a consult on this patient The patient was interviewed and examined by me as well as by Dr. Caban Case discussed with Dr. Caban and he agrees with the plan of care HPI Patient is a 64-year-old male with a history significant for multivessel CAD status post CABG 3 in July 2019, paroxysmal atrial fibrillation, diabetes, ischemic cardiomyopathy, hypertension, dyslipidemia, former smoker who presented with nausea and vomiting. At the time of my evaluation the patient is a very poor historian. He is very sleepy during the interview and fell asleep several times. Unable to give me any details of why he was at the hospital or described any of his symptoms. He is unsure who is cutter out is. History was obtained from the chart. He apparently was complaining of nausea, vomiting, unable to take his meds, extreme thirst and shortness of breath. Upon arrival to the emergency department his EKG showed atrial fibrillation with RVR. Labs are significant for WBC 15, sugar of 391. He was diagnosed and being treated for DKA. He was started on Cardizem and has converted to sinus rhythm. At the time of my examination the patient denied any chest pain. ROS: Unable to obtain patient is a poor historian EXAMINATION: Rashid is afebrile, pulse in the 70s, respirations 18, blood pressure 157/77, oxygen saturation 98% on 4 L nasal cannula Patient seen and examined resting in bed, drowsy but arousable, not in any acute distress Lungs are clear to auscultation bilaterally Heart is regular, no audible murmurs Extremities warm no edema REVIEW OF LABS, ECG & MEDICAL DATA WBC 23.2, hemoglobin 13.8, platelets 294, potassium 3.1, BUN 12, creatinine 0.64 Troponin 0.039 Echocardiogram in July showed EF 40-45% IMPRESSION / ASSESSMENT: #1 diabetic ketoacidosis #2 atrial fibrillation with RVR, currently in sinus rhythm #3 abnormal troponins, likely secondary to above #4 diabetes #5 ischemic cardiomyopathy, EF 40-45% #6 hypertension #7 dyslipidemia #8 former smoker PLAN: Recommend anticoagulation Maximize medical management of CAD Increase losartan to 25 mg twice a day Continue beta blockers Add spironolactone for treatment of cardiomyopathy Monitor BMP Past Medical History Past Medical History: Atrial Fibrillation, Coronary Artery Disease (CAD), Chest Pain / Angina, Diabetes Mellitus, GERD/Reflux, Hyperlipidemia, Hypertension, Myocardial Infarction ([place]) Additional Past Medical History / Comment(s): Pt had CABG 07/2019 and had post op Afib/UTI with pseudomonas aeruginosa, ischemic cardiomyopathy, IDDM type II, past R scrotal abscess with sepsis, chronic lower back pain and bilateral leg pain, Last Myocardial Infarction Date:: 03/20/15 History of Any Multi-Drug Resistant Organisms: None Reported Past Surgical History: Back Surgery, Coronary Bypass/CABG, Heart Catheterization , Heart Catheterization With Stent, Orthopedic Surgery Additional Past Surgical History / Comment(s): 08/23/2019 CABG 3 vessels, PCI with total of 5 stents, L ankle ligament repair, R leg ORIF, low back surgery, colonoscopy. Past Anesthesia/Blood Transfusion Reactions: No Reported Reaction Additional Past Anesthesia/Blood Transfusion Reaction / Comment(s): Pt has received blood in past without reaction. Date of Last Stent Placement:: 02/2015 Past Psychological History: No Psychological Hx Reported Smoking Status: Former smoker Past Alcohol Use History: None Reported Past Drug Use History: Marijuana - Past Family History Sister(s) Family Medical History: Coronary Artery Disease (CAD), Hypertension Father Family Medical History: Coronary Artery Disease (CAD), Diabetes Mellitus, Deep Vein Thrombosis (DVT), Hypertension Additional Family Medical History / Comment(s): Father at age 58yrs. He of blood clot from leg injury that went to his heart. Medications and Allergies Home Medications Medication Instructions Recorded Confirmed Type DULoxetine HCL [Cymbalta] 60 mg PO DAILY capsule. 08/15/19 10/20/19 Rx oxyCODONE ER [OxyCONTIN] 80 mg PO BID tab.er.12h 08/15/19 10/20/19 Rx Aspirin 325 mg PO DAILY #30 tab 09/01/19 10/20/19 Rx Atorvastatin [Lipitor] 40 mg PO DAILY #30 tab 09/01/19 10/20/19 Rx Clopidogrel [Plavix] 75 mg PO DAILY #30 tab 09/01/19 10/20/19 Rx Insulin Glargine,Hum.rec.anlog 18 unit SQ HS #0 09/01/19 10/20/19 Rx [Basaglar Kwikpen U-100] Losartan [Cozaar] 25 mg PO DAILY #30 tab 09/01/19 10/20/19 Rx Metoprolol Tartrate [Lopressor] 100 mg PO BID #120 tab 09/01/19 10/20/19 Rx Pantoprazole [Protonix] 40 mg PO AC-BRKFST #30 tablet. 09/01/19 10/20/19 Rx amLODIPine [Norvasc] 5 mg PO DAILY #30 tab 09/01/19 10/20/19 Rx INSULIN ASPART (NovoLOG) [NovoLOG See Protocol SQ ACHS 09/16/19 10/20/19 History (formulary)] Sennosides-Docusate Sodium 2 tab PO HS 09/16/19 10/20/19 History [Senokot-S] oxyCODONE HCL [oxyCODONE HCL ER] 15 mg PO Q12H 09/16/19 10/20/19 History Acetaminophen Tab [Tylenol] 650 mg PO Q6HR PRN tab 09/17/19 10/20/19 Rx Furosemide [Lasix] 40 mg PO DAILY #5 tablet 09/17/19 10/20/19 Rx Potassium Chloride ER [K-Dur 20] 40 meq PO DAILY #5 tab 09/17/19 10/20/19 Rx Allergies Allergy/AdvReac Type Severity Reaction Status Date / Time No Known Allergies Allergy Verified 10/20/19 13:14 Physical Exam Vitals: Vital Signs Temp Pulse Pulse Resp BP BP Pulse Ox 10/21/19 15:15 98.5 F 70 18 157/77 98 10/21/19 12:00 18 10/21/19 11:26 98.5 F 70 16 156/78 99 10/21/19 08:00 98.2 F 88 16 174/76 98 10/21/19 03:00 98.4 F 68 18 145/68 94 L 10/20/19 23:00 98.7 F 72 18 107/63 93 L 10/20/19 19:30 100.2 F H 115 H 18 112/62 94 L 10/20/19 16:56 130 H 18 137/78 98 10/20/19 16:03 146 H 19 151/71 98 Intake and Output 10/21/19 10/21/19 10/21/19 06:59 14:59 22:59 Intake Total 107.5 0 Output Total 1925 450 Balance -1817.5 -450 Intake: Intake, IV Titration 107.5 Amount Diltiazem 125 mg In 107.5 Sodium Chloride 0.9% 100 ml @ 5 MG/HR 5 mls/hr IV .Q24H [facility] Rx#:[id number] Oral 0 Output: Urine 1925 450 Other: Voiding Method Urinal Urinal # Voids 2 3 Weight 77.5 kg Results 10/21/19 06:51 10/21/19 14:44 Cardiac Enzymes 10/20/19 10/21/19 10/21/19 Range/Units 15:35 01:42 06:51 AST 21 30 (17-59) U/L Troponin I 0.039 H* (0.000-0.034) ng/mL CBC 10/21/19 Range/Units 06:51 WBC 23.2 H (3.8-10.6) k/uL RBC 4.94 (4.30-5.90) m/uL Hgb 13.8 (13.0-17.5) gm/dL Hct 43.7 (39.0-53.0) % Plt Count 494 H (150-450) k/uL Comprehensive Metabolic Panel 10/20/19 10/20/19 10/21/19 Range/Units 15:35 20:22 01:42 Sodium 141 144 139 (137-145) mmol/L Potassium 2.9 L 2.5 L* 3.7 (3.5-5.1) mmol/L Chloride 107 111 H 109 H (98-107) mmol/L Carbon Dioxide 12 L 22 22 (22-30) mmol/L BUN 11 12 12 (9-20) mg/dL Creatinine 0.56 L 0.77 0.64 L (0.66-1.25) mg/dL Glucose 392 H 103 H 239 H (74-99) mg/dL Calcium 8.9 (8.4-10.2) mg/dL AST 21 (17-59) U/L ALT 18 (4-49) U/L Alkaline Phosphatase 133 H (38-126) U/L Total Protein 6.0 L (6.3-8.2) g/dL Albumin 3.3 L (3.5-5.0) g/dL 10/21/19 10/21/19 Range/Units 06:51 14:44 Sodium 140 (137-145) mmol/L Potassium 3.0 L 3.1 L (3.5-5.1) mmol/L Chloride 104 (98-107) mmol/L Carbon Dioxide 24 (22-30) mmol/L BUN 12 (9-20) mg/dL Creatinine 0.68 (0.66-1.25) mg/dL Glucose 274 H (74-99) mg/dL Calcium 9.1 (8.4-10.2) mg/dL AST 30 (17-59) U/L ALT 22 (4-49) U/L Alkaline Phosphatase 179 H (38-126) U/L Total Protein 7.2 (6.3-8.2) g/dL Albumin 4.1 (3.5-5.0) g/dL Current Medications Generic Name Dose Route Start Last Admin Trade Name Freq PRN Reason Stop Dose Admin Amlodipine Besylate 5 mg 10/21/19 09:00 10/21/19 08:07 Norvasc PO 5 mg DAILY GABBY Administration Apixaban 5 mg 10/21/19 21:00 Eliquis PO BID GABBY Aspirin 81 mg 10/22/19 09:00 Aspirin PO DAILY [facility] Atorvastatin Calcium 40 mg 10/20/19 21:00 10/20/19 21:05 Lipitor PO 40 mg HS GABBY Administration Clopidogrel Bisulfate 75 mg 10/21/19 09:00 10/21/19 08:07 Plavix PO 75 mg DAILY GABBY Administration Duloxetine HCl 60 mg 10/21/19 09:00 10/21/19 08:07 Cymbalta PO 60 mg DAILY GABBY Administration Sodium Chloride 1,000 mls @ 125 mls/hr 10/20/19 14:30 10/21/19 13:47 Saline 0.9% IV Not Given .Q8H GABBY Potassium Chloride/Dextrose/Sod Cl 1,000 mls @ 150 mls/hr 10/20/19 21:00 10/21/19 08:20 D5%-1/2ns-Kcl 20 Meq/L Iv Solution IV 150 mls/hr .Q6H40M GABBY Administration Insulin Aspart 0 unit 10/21/19 07:30 10/21/19 11:35 Novolog SQ 3 unit ACHS GABBY Administration Protocol Losartan Potassium 25 mg 10/21/19 21:00 Cozaar PO BID GABBY Metoprolol Tartrate 100 mg 10/20/19 21:00 10/21/19 08:06 Lopressor PO 100 mg BID GABBY Administration Miscellaneous Information 1 each 10/20/19 21:59 Potassium Per Protocol MISCELLANE DAILY PRN Per Protocol Protocol Miscellaneous Information 1 each 10/20/19 21:59 Magnesium Per Protocol MISCELLANE DAILY PRN Per Protocol Protocol Miscellaneous Information 1 each 10/20/19 22:06 Phosphorus Per Protocol MISCELLANE DAILY PRN Per Protocol Protocol Miscellaneous Information 1 each 10/21/19 08:16 Potassium Per Protocol MISCELLANE DAILY PRN Per Protocol Protocol Morphine Sulfate 4 mg 10/20/19 14:24 10/21/19 08:03 Morphine Sulfate (Inj) IVP 4 mg Q4HR PRN Administration Pain Ondansetron HCl 4 mg 10/20/19 17:56 10/21/19 08:45 Zofran IVP 4 mg Q6HR PRN Administration Nausea And Vomiting Oxycodone/Acetaminophen 1 each 10/20/19 17:56 10/21/19 15:18 Percocet 10-325 PO 1 each Q6H PRN Administration Pain Pantoprazole Sodium 40 mg 10/21/19 07:30 10/21/19 06:15 Protonix PO Not Given AC-BRKFST GABBY Intake and Output 10/21/19 10/21/19 10/21/19 06:59 14:59 22:59 Intake Total 107.5 0 Output Total 1925 450 Balance -1817.5 -450 Intake: Intake, IV Titration 107.5 Amount Diltiazem 125 mg In 107.5 Sodium Chloride 0.9% 100 ml @ 5 MG/HR 5 mls/hr IV .Q24H [facility] Rx#:[id number] Oral 0 Output: Urine 1925 450 Other: Voiding Method Urinal Urinal # Voids 2 3 Weight 77.5 kg 10/21/19 06:51 10/21/19 14:44
[2019-10-21 17:09] LABS: Glucose,Whole Blood 191 mg/dL (75-99)
[2019-10-21] MEDS ORDERED: NITROGLYCERIN SL TABS 0.4 MG TAB SUBLINGUAL PRN (17:33)
[2019-10-21] MEDS: LOSARTAN 25 MG TAB PO SCH (20:29)
[2019-10-21] MEDS: ATORVASTATIN 40 MG TAB PO SCH (20:29)
[2019-10-21] MEDS: APIXABAN 5 MG TAB PO SCH (20:29)
[2019-10-21 20:37] LABS: Glucose,Whole Blood 131 mg/dL (75-99)
[2019-10-21] MEDS ORDERED: POTASSIUM CHLORIDE ER 20 MEQ TAB.ER PO STA (21:13)
[2019-10-21] MEDS ORDERED: AMOXIC-POT CLAV 875-125MG 1 EACH TAB PO SCH (23:15)
--- NOTE | 2019-10-21 23:27 | P.HPIM ---
History of Present Illness H&P Date: 10/21/19 Chief Complaint: nausea, vomiting Ashok Austin is a 64 yo M with PMH significant for CAD s/p recent CABG approx 8 weeks ago, T2DM, chronic pain who presented to the ED for worsening nausea and vomiting. History obtained via chart review as pt drowsy and unable to answer q uestions today. He had apparently run out of some of his pain medications and had nausea/vomiting for a few days. He had not been giving himself his insulin. On presentation he was in A fib RVR, WBC 15k, glucose 390, urine and blood ketone positive, trop 0.03, Covid negative. CXR with no acute process. He converted to sinus rhythm in the ED with cardizem and was given IV fluids and placed on an insulin drip. Pts anion gap has corrected overnight and his glucose is improved but he remains lethargic and slow to rouse this morning. His WBC has risen to 20k and procalcitonin mildly elevated at 0.09. Review of Systems ROS unobtainable: due to mental status Past Medical History Past Medical History: Atrial Fibrillation, Coronary Artery Disease (CAD), Chest Pain / Angina, Diabetes Mellitus, GERD/Reflux, Hyperlipidemia, Hypertension, Myocardial Infarction ([place]) Additional Past Medical History / Comment(s): Pt had CABG 07/2019 and had post op Afib/UTI with pseudomonas aeruginosa, ischemic cardiomyopathy, IDDM type II, past R scrotal abscess with sepsis, chronic lower back pain and bilateral leg pain, Last Myocardial Infarction Date:: 03/20/15 History of Any Multi-Drug Resistant Organisms: None Reported Past Surgical History: Back Surgery, Coronary Bypass/CABG, Heart Catheterization, Heart Catheterization With Stent, Orthopedic Surgery Additional Past Surgical History / Comment(s): 08/23/2019 CABG 3 vessels, PCI with total of 5 stents, L ankle ligament repair, R leg ORIF, low back surgery, colonoscopy. Past Anesthesia/Blood Transfusion Reactions: No Reported Reaction Additional Past Anesthesia/Blood Transfusion Reaction / Comment(s): Pt has received blood in past without reaction. Date of Last Stent Placement:: 02/2015 Past Psychological History: No Psychological Hx Reported Smoking Status: Former smoker Past Alcohol Use History: None Reported Past Drug Use History: Marijuana - Past Family History Sister(s) Family Medical History: Coronary Artery Disease (CAD), Hypertension Father Family Medical History: Coronary Artery Disease (CAD), Diabetes Mellitus, Deep Vein Thrombosis (DVT), Hypertension Additional Family Medical History / Comment(s): Father at age 58yrs. He of blood clot from leg injury that went to his heart. Medications and Allergies Home Medications Medication Instructions Recorded Confirmed Type DULoxetine HCL [Cymbalta] 60 mg PO DAILY capsule. 08/15/19 10/20/19 Rx oxyCODONE ER [OxyCONTIN] 80 mg PO BID tab.er.12h 08/15/19 10/20/19 Rx Aspirin 325 mg PO DAILY #30 tab 09/01/19 10/20/19 Rx Atorvastatin [Lipitor] 40 mg PO DAILY #30 tab 09/01/19 10/20/19 Rx Clopidogrel [Plavix] 75 mg PO DAILY #30 tab 09/01/19 10/20/19 Rx Insulin Glargine,Hum.rec.anlog 18 unit SQ HS #0 09/01/19 10/20/19 Rx [Basaglar Kwikpen U-100] Losartan [Cozaar] 25 mg PO DAILY #30 tab 09/01/19 10/20/19 Rx Metoprolol Tartrate [Lopressor] 100 mg PO BID #120 tab 09/01/19 10/20/19 Rx Pantoprazole [Protonix] 40 mg PO AC-BRKFST #30 tablet. 09/01/19 10/20/19 Rx amLODIPine [Norvasc] 5 mg PO DAILY #30 tab 09/01/19 10/20/19 Rx INSULIN ASPART (NovoLOG) [NovoLOG See Protocol SQ ACHS 09/16/19 10/20/19 History (formulary)] Sennosides-Docusate Sodium 2 tab PO HS 09/16/19 10/20/19 History [Senokot-S] oxyCODONE HCL [oxyCODONE HCL ER] 15 mg PO Q12H 09/16/19 10/20/19 History Acetaminophen Tab [Tylenol] 650 mg PO Q6HR PRN tab 09/17/19 10/20/19 Rx Furosemide [Lasix] 40 mg PO DAILY #5 tablet 09/17/19 10/20/19 Rx Potassium Chloride ER [K-Dur 20] 40 meq PO DAILY #5 tab 09/17/19 10/20/19 Rx Allergies Allergy/AdvReac Type Severity Reaction Status Date / Time No Known Allergies Allergy Verified 10/20/19 13:14 Physical Exam Vitals: Vital Signs Temp Pulse Resp BP Pulse Ox 10/21/19 19:25 98.7 F 74 18 162/78 99 10/21/19 16:00 18 10/21/19 15:15 98.5 F 70 18 157/77 98 10/21/19 12:00 18 10/21/19 11:26 98.5 F 70 16 156/78 99 10/21/19 08:00 98.2 F 88 16 174/76 98 10/21/19 03:00 98.4 F 68 18 145/68 94 L Intake and Output 10/21/19 10/21/19 10/22/19 14:59 22:59 06:59 Intake Total 0 0 Output Total 450 Balance -450 0 Intake: Oral 0 0 Output: Urine 450 Other: Voiding Method Urinal Urinal # Voids 3 General: well nourished, well developed, NAD. Vitals reviewed Eyes: PERRL, EOMI, conjunctiva normal HENT: normocephalic, mucus membranes moist Neck: supple, no JVD Lungs: normal respiratory effort, no wheezes or rales CV: Regular rate and rhythm, no murmur. Peripheral pulses 2+ Abdomen: soft, nondistended, no organomegaly Lymph: no cervical or axillary LAD Skin: warm and dry. Neuro: Rouses to name, can answer simple questions Results CBC & Chem 7: 10/21/19 06:51 10/21/19 20:38 Labs: Abnormal Lab Results - Last 24 Hours (Table) 10/21/19 10/21/19 10/21/19 Range/Units 01:42 02:02 03:23 WBC (3.8-10.6) k/uL RDW (11.5-15.5) % Plt Count (150-450) k/uL Potassium (3.5-5.1) mmol/L Chloride 109 H (98-107) mmol/L Creatinine 0.64 L (0.66-1.25) mg/dL Glucose 239 H (74-99) mg/dL POC Glucose (mg/dL) 246 H 229 H (75-99) mg/dL Alkaline Phosphatase 133 H (38-126) U/L C-Reactive Protein (<10.0) mg/L Total Protein 6.0 L (6.3-8.2) g/dL Albumin 3.3 L (3.5-5.0) g/dL Procalcitonin (0.02-0.09) ng/mL 10/21/19 10/21/19 10/21/19 Range/Units 06:02 06:51 06:51 WBC 23.2 H (3.8-10.6) k/uL RDW 15.6 H (11.5-15.5) % Plt Count 494 H (150-450) k/uL Potassium 3.0 L (3.5-5.1) mmol/L Chloride (98-107) mmol/L Creatinine (0.66-1.25) mg/dL Glucose 274 H (74-99) mg/dL POC Glucose (mg/dL) 264 H (75-99) mg/dL Alkaline Phosphatase 179 H (38-126) U/L C-Reactive Protein (<10.0) mg/L Total Protein (6.3-8.2) g/dL Albumin (3.5-5.0) g/dL Procalcitonin (0.02-0.09) ng/mL 10/21/19 10/21/19 10/21/19 Range/Units 06:51 06:51 09:35 WBC (3.8-10.6) k/uL RDW (11.5-15.5) % Plt Count (150-450) k/uL Potassium (3.5-5.1) mmol/L Chloride (98-107) mmol/L Creatinine (0.66-1.25) mg/dL Glucose (74-99) mg/dL POC Glucose (mg/dL) 216 H (75-99) mg/dL Alkaline Phosphatase (38-126) U/L C-Reactive Protein 22.9 H (<10.0) mg/L Total Protein (6.3-8.2) g/dL Albumin (3.5-5.0) g/dL Procalcitonin 0.12 H (0.02-0.09) ng/mL 10/21/19 10/21/19 10/21/19 Range/Units 11:28 14:44 16:44 WBC (3.8-10.6) k/uL RDW (11.5-15.5) % Plt Count (150-450) k/uL Potassium 3.1 L (3.5-5.1) mmol/L Chloride (98-107) mmol/L Creatinine (0.66-1.25) mg/dL Glucose (74-99) mg/dL POC Glucose (mg/dL) 212 H 191 H (75-99) mg/dL Alkaline Phosphatase (38-126) U/L C-Reactive Protein (<10.0) mg/L Total Protein (6.3-8.2) g/dL Albumin (3.5-5.0) g/dL Procalcitonin (0.02-0.09) ng/mL 10/21/19 10/21/19 Range/Units 20:25 20:38 WBC (3.8-10.6) k/uL RDW (11.5-15.5) % Plt Count (150-450) k/uL Potassium 3.2 L (3.5-5.1) mmol/L Chloride (98-107) mmol/L Creatinine (0.66-1.25) mg/dL Glucose (74-99) mg/dL POC Glucose (mg/dL) 131 H (75-99) mg/dL Alkaline Phosphatase (38-126) U/L C-Reactive Protein (<10.0) mg/L Total Protein (6.3-8.2) g/dL Albumin (3.5-5.0) g/dL Procalcitonin (0.02-0.09) ng/mL Thrombosis Risk Factor Assmnt - Choose All That Apply Any of the Below Risk Factors Present?: Yes Each Factor Represents 1 point: Obesity (BMI >25) Other Risk Factors: Yes Each Risk Factor Represents 2 Points: Age 61-74 years Other congenital or acquired thrombophilia - If yes, enter type in comment: No Thrombosis Risk Factor Assessment Total Risk Factor Score: 3 Thrombosis Risk Factor Assessment Level: Moderate Risk Assessment and Plan (1) Metabolic encephalopathy Current Visit: Yes Status: Acute Code(s): G93.41 - METABOLIC ENCEPHALOPATHY SNOMED Code(s): 30985449 (2) Atrial flutter with rapid ventricular response Current Visit: Yes Status: Acute Code(s): I48.92 - UNSPECIFIED ATRIAL FLUTTER SNOMED Code(s): 1735911 (3) Diabetic ketoacidosis Current Visit: Yes Status: Acute Code(s): E11.10 - TYPE 2 DIABETES MELLITUS WITH KETOACIDOSIS WITHOUT COMA SNOMED Code(s): 749492636 (4) Hypertensive urgency Current Visit: Yes Status: Acute Code(s): I16.0 - HYPERTENSIVE URGENCY SNOMED Code(s): 888100496 (5) CAD (coronary artery disease) Current Visit: No Status: Acute Code(s): I25.10 - ATHSCL HEART DISEASE OF [place] CORONARY ARTERY W/O ANG PCTRS SNOMED Code(s): 97410695 Plan: 1. Atrial fibrillation with RVR. S/p recent CABG. Resolved, cardiology and CT surgery consulted. continue home lopressor 2. Metabolic encephalopathy. Likely secondary to DKA although today this could be do to possible aspiration pneumonia. Start unasyn, continue with accucheck and sliding scale 3. DKA. Insulin drip, transition to home levemir and sliding scale 4. Chronic pain. Perococet prn
[2019-10-22] MEDS: AMPICILLIN-SULBACTAM 1.5 GM in SODIUM CHLORIDE 0.9% 50 ML IVPB SCH ×5 (00:10→23:01)
[2019-10-22] MEDS: oxyCODONE-APAP 10-325MG 1 EACH TAB PO PRN ×4 (02:39→20:15)
[2019-10-22] MEDS: SODIUM CHLORIDE 0.9% 1,000 ML IV SCH ×3 (05:28→18:39)
[2019-10-22 06:09] LABS: Glucose,Whole Blood 196 mg/dL (75-99)
[2019-10-22 06:15] LABS: African American GFR (CKD) >90 (>60 ml/min/1.73 sqM); Anion Gap 8 mmol/L; Blood Urea Nitrogen 12 mg/dL (9-20); Carbon Dioxide 24 mmol/L (22-30); Chloride 103 mmol/L (98-107); Glucose 173 mg/dL (74-99); Non-African American GFR(CKD) >90 (>60 ml/min/1.73 sqM); Phosphorus 2.6 mg/dL (2.5-4.5); Potassium 3.6 mmol/L (3.5-5.1); Sodium 135 mmol/L (137-145)
[2019-10-22] MEDS: PANTOPRAZOLE 40 MG TABLET PO SCH (06:23)
[2019-10-22] MEDS: INSULIN DETEMIR (LEVEMIR) 100 UNIT/ML SYR SQ SCH (06:23)
[2019-10-22] MEDS: INSULIN ASPART (NovoLOG) 100 UNIT/ML VIAL SQ SCH ×4 (06:23→20:14)
[2019-10-22] MEDS: DULoxetine HCL 60 MG CAPSULE.DR PO SCH (08:59)
[2019-10-22] MEDS: amLODIPine 5 MG TAB PO SCH (08:59)
[2019-10-22] MEDS: METOPROLOL TARTRATE 50 MG TAB PO SCH ×2 (08:59→20:14)
[2019-10-22] MEDS: APIXABAN 5 MG TAB PO SCH ×2 (08:59→20:14)
[2019-10-22] MEDS: LOSARTAN 25 MG TAB PO SCH (09:00)
[2019-10-22] MEDS: SPIRONOLACTONE 25 MG TAB PO SCH (09:00)
[2019-10-22] MEDS: CLOPIDOGREL 75 MG TAB PO SCH (09:01)
[2019-10-22] MEDS: ASPIRIN 325 MG TAB PO SCH (09:06)
--- NOTE | 2019-10-22 10:25 | P.PN ---
Subjective On-call hospitalist covering for Dr. Lovell over the weekend From [facility] Ashok Austin is a 64 yo M with PMH significant for CAD s/p recent CABG approx 8 weeks ago, T2DM, chronic pain who presented to the ED for worsening nausea and vomiting. History obtained via chart review as pt drowsy and unable to answer questions today. He had apparently run out of some of his pain medications and had nausea/vomiting for a few days. He had not been giving himself his insulin. On presentation he was in A fib RVR, WBC 15k, glucose 390, urine and blood ketone positive, trop 0.03, Covid negative. CXR with no acute process. He converted to sinus rhythm in the ED with cardizem and was given IV fluids and placed on an insulin drip. Pts anion gap has corrected overnight and his glucose is improved but he remains lethargic and slow to rouse this morning. His WBC has risen to 20k and procalcitonin mildly elevated at 0.09. 10/22/2019 This is a pleasant 64 years old male with recent CABG presents with that the ketoacidosis and A. fib and RVR, currently sinus rhythm and his sugar is controlled, currently his on sliding scale He is fully awake and oriented, no chest pain, no coughing or dyspnea, no abdominal pain, no diarrhea, no urinary problem, he has chronic pain in his legs but also they are tender to go to check ultrasound He has chronic leukocytosis with recent worsening, we'll check procalcitonin, monitored WBC Patient is already started on Unasyn however the source of infection is unknown, his bili BC is worse today however patient has chronic leukocytosis. We'll keep monitored WBC, we will culture Objective - Vital Signs Vital signs: Vital Signs Temp 98.5 F 10/22/19 08:00 Pulse 80 10/22/19 08:00 Resp 18 10/22/19 08:00 BP 161/81 10/22/19 08:00 Pulse Ox 98 10/22/19 08:00 Intake & Output 10/21/19 10/22/19 10/22/19 18:59 06:59 18:59 Intake Total 0 Output Total 450 225 Balance -450 -225 Weight 76 kg Intake: Oral 0 Output: Urine 450 225 Other: Voiding Method Urinal Urinal Urinal # Voids 3 1 - Exam GENERAL: The patient is alert and oriented x3, not in any acute distress. Well developed, well nourished. HEENT: Pupils are round and equally reacting to light. EOMI. No scleral icterus. No conjunctival pallor. Normocephalic, atraumatic. No pharyngeal erythema. No thyromegaly. CARDIOVASCULAR: S1 and S2 present. No murmurs, rubs, or gallops. PULMONARY: Chest is clear to auscultation, no wheezing or crackles. ABDOMEN: Soft, nontender, nondistended, normoactive bowel sounds. No palpable organomegaly. MUSCULOSKELETAL: No joint swelling or deformity. -EXTREMITIES: No cyanosis, clubbing, or pedal edema. Bilateral lower extremity tenderness NEUROLOGICAL: Gross neurological examination did not reveal any focal deficits. SKIN: No rashes. no petechiae. - Labs CBC & Chem 7: 10/21/19 06:51 10/22/19 05:26 Labs: Abnormal Lab Results - Last 24 Hours (Table) 10/21/19 10/21/19 10/21/19 Range/Units 06:51 11:28 14:44 Sodium (137-145) mmol/L Potassium 3.1 L (3.5-5.1) mmol/L Creatinine (0.66-1.25) mg/dL Glucose (74-99) mg/dL POC Glucose (mg/dL) 212 H (75-99) mg/dL Procalcitonin 0.12 H (0.02-0.09) ng/mL 10/21/19 10/21/19 10/21/19 Range/Units 16:44 20:25 20:38 Sodium (137-145) mmol/L Potassium 3.2 L (3.5-5.1) mmol/L Creatinine (0.66-1.25) mg/dL Glucose (74-99) mg/dL POC Glucose (mg/dL) 191 H 131 H (75-99) mg/dL Procalcitonin (0.02-0.09) ng/mL 10/22/19 10/22/19 Range/Units 05:26 06:08 Sodium 135 L (137-145) mmol/L Potassium (3.5-5.1) mmol/L Creatinine 0.64 L (0.66-1.25) mg/dL Glucose 173 H (74-99) mg/dL POC Glucose (mg/dL) 196 H (75-99) mg/dL Procalcitonin (0.02-0.09) ng/mL Assessment and Plan Assessment: Diabetic ketoacidosis A. fib with RVR, convert to sinus rhythm Recent CABG diabetes mellitus Leukocytosis, chronic but recent worsening, he is already on Unasyn. GERD Hyperlipidemia Hypertension History of coronary artery disease Plan: This is a pleasant 64 years old male who presents with A. fib and RVR, diabetic ketoacidosis. This treated with insulin drip per protocol and his switched to subcutaneous insulin sliding scale, also floor broker on the case and off of the recommendation. Continue with aspirin, continue with Unasyn, send blood culture and consult infectious disease Labs and medication were reviewed.. Continue same treatment. Continue with symptomatic treatment. Resume home medication. Monitor lytes and vitals. DVT and GI prophylaxis. Further recommendations of the clinical course of the patient DVT prophylaxis: Eliquis GI Prophylaxis: Ppi Prognosis is guarded
[2019-10-22] MEDS ORDERED: LOSARTAN 25 MG TAB PO STA (12:05)
--- NOTE | 2019-10-22 12:12 | US ---
EXAMINATION TYPE: US venous doppler duplex LE DATE OF EXAM: 10/22/2019 11:48 AM COMPARISON: NONE CLINICAL HISTORY: Rule out DVT. Pain SIDE PERFORMED: Bilateral TECHNIQUE: The lower extremity deep venous system is examined utilizing real time linear array sonog maria ines with graded compression, doppler sonography and color-flow sonography. VESSELS IMAGED: External Iliac Vein (EIV) Common Femoral Vein Deep Femoral Vein Greater Saphenous Vein * Femoral Vein Popliteal Vein Small Saphenous Vein * Proximal Calf Veins (* superficial vessels) Right Leg: Negative for DVT Left Leg: Negative for DVT IMPRESSION: 1. No diagnostic evidence of DVT.
[2019-10-22 12:20] LABS: Glucose,Whole Blood 121 mg/dL (75-99)
--- NOTE | 2019-10-22 16:46 | P.PN ---
Subjective This is Fifi Oakes PA-C dictating a progress note on this patient The patient was interviewed and examined by me as well as by Dr. Caban Case discussed with Dr. Caban and he agrees with the plan of care HPI/interval history Patient is a 64-year-old male with a history significant for multivessel CAD status post CABG 3 in July 2019, paroxysmal atrial fibrillation, diabetes, ischemic cardiomyopathy, hypertension, dyslipidemia, former smoker who presented with nausea and vomiting. He was diagnosed and is being treated for diabetic ketoacidosis. Upon arrival he was in atrial fibrillation but has converted to sinus rhythm. Today he remains in sinus rhythm. Patient seen and examined resting in bed. Complains of leg pain and neuropathy. Denies any chest pain or shortness of breath. EXAMINATION Patient is afebrile, pulse in the 60s, respirations 16, blood pressure 144/76, oxygen saturation 100% on 2 L nasal cannula Patient seen and examined resting in bed, in no acute distress Lungs are clear to auscultation bilaterally Heart is regular, no audible murmurs No lower extremity edema REVIEW OF LABS, ECG Potassium 3.6, BUN 12, creatinine 0.64 IMPRESSION / ASSESSMENT: #1 diabetic ketoacidosis #2 atrial fibrillation with RVR, currently in sinus rhythm, anticoagulated #3 abnormal troponins, likely secondary to above #4 diabetes #5 ischemic cardiomyopathy, EF 40-45% #6 hypertension, blood pressure has been elevated #7 dyslipidemia #8 former smoker PLAN: Increase losartan to 50 mg twice a day for hypertension management Management of lower extremity pain/neuropathy per primary care team Continue metoprolol and spironolactone Consider discontinuing aspirin in the next month as he is currently on triple therapy Monitor BMP Management of diabetes per primary care team Objective - Vital Signs Vital signs: Vital Signs Temp 97.8 F 10/22/19 15:18 Pulse 68 10/22/19 15:18 Resp 16 10/22/19 15:29 BP 144/76 10/22/19 15:18 Pulse Ox 100 10/22/19 15:18 Intake & Output 10/21/19 10/22/19 10/22/19 18:59 06:59 18:59 Intake Total 0 Output Total 450 225 360 Balance -450 225 -617 Weight 76 kg 76 kg Intake: Oral 0 Output: Urine 450 225 360 Other: Voiding Method Urinal Urinal Toilet Urinal # Voids 3 1 - Labs CBC & Chem 7: 10/21/19 06:51 10/22/19 05:26 Labs: Abnormal Lab Results - Last 24 Hours (Table) 10/21/19 10/21/19 10/21/19 Range/Units 06:51 16:44 20:25 Sodium (137-145) mmol/L Potassium (3.5-5.1) mmol/L Creatinine (0.66-1.25) mg/dL Glucose (74-99) mg/dL POC Glucose (mg/dL) 191 H 131 H (75-99) mg/dL Procalcitonin 0.12 H (0.02-0.09) ng/mL 10/21/19 10/22/19 10/22/19 Range/Units 20:38 05:26 06:08 Sodium 135 L (137-145) mmol/L Potassium 3.2 L (3.5-5.1) mmol/L Creatinine 0.64 L (0.66-1.25) mg/dL Glucose 173 H (74-99) mg/dL POC Glucose (mg/dL) 196 H (75-99) mg/dL Procalcitonin (0.02-0.09) ng/mL 10/22/19 Range/Units 11:59 Sodium (137-145) mmol/L Potassium (3.5-5.1) mmol/L Creatinine (0.66-1.25) mg/dL Glucose (74-99) mg/dL POC Glucose (mg/dL) 121 H (75-99) mg/dL Procalcitonin (0.02-0.09) ng/mL
[2019-10-22 17:50] LABS: Glucose,Whole Blood 178 mg/dL (75-99)
[2019-10-22 20:07] LABS: Glucose,Whole Blood 329 mg/dL (75-99)
[2019-10-22] MEDS: ATORVASTATIN 40 MG TAB PO SCH (20:14)
[2019-10-22] MEDS: LOSARTAN 50 MG TAB PO SCH (20:14)
[2019-10-22] MEDS: MORPHINE SULFATE 4 MG/ML SYRINGE IVP PRN (21:25)
--- NOTE | 2019-10-23 02:04 | P.CONS ---
History of Present Illness - Reason for Consult Consult date: 10/22/19 Leukocytosis Requesting physician: Gustabo E Sheet - Chief Complaint Vomiting X one day - History of Present Illness Patient is a 64-year-old male with a past medical history significant for coronary artery disease in this patient who is status post coronary artery bypass grafting on 08/23/2019 patient postop was complicated by development of atrial fibrillation and pseudomonas urinary tract infection patient is not presenting to the ER at [facility] about 3 days ago with chief complaints of vomiting this started the day he presented to the hospital patient did have multiple episodes of vomiting patient denies having any abdominal pain and denies having any diarrhea denies having any fever some headache but no urinary symptoms no chest pain shortness breath occasional cough with the Center the patient was evaluated by the physician , on arrival to the ER the patient has been afebrile subsequent to have low-grade fever 100.2 patient did have elevated white count of 15,000 Chest X was negative for any acute infiltrate UA was negative patient was empirically started on Unasyn this morning the patient was noticed to have a white count up to 23,000 that has prompted this infection disease consultation however the patient now feeling better he remains to be afebrile , the patient denies further vomiting no abdominal pain no diarrhea. No urinary symptoms no chest pain shortness of breath or cough Review of Systems Positive point has been mentioned in the HPI rest of the systems are negative Past Medical History Past Medical History: Atrial Fibrillation, Coronary Artery Disease (CAD), Chest Pain / Angina, Diabetes Mellitus, GERD/Reflux, Hyperlipidemia, Hypertension, Myocardial Infarction (AL) Additional Past Medical History / Comment(s): Pt had CABG 07/2019 and had post op Afib/UTI with pseudomonas aeruginosa, ischemic cardiomyopathy, IDDM type II, past R scrotal abscess with sepsis, chronic lower back pain and bilateral leg pain, Last Myocardial Infarction Date:: 03/20/15 History of Any Multi-Drug Resistant Organisms: None Reported Past Surgical History: Back Surgery, Coronary Bypass/CABG, Heart Catheterization, Heart Catheterization With Stent, Orthopedic Surgery Additional Past Surgical History / Comment(s): 08/23/2019 CABG 3 vessels, PCI with total of 5 stents, L ankle ligament repair, R leg ORIF, low back surgery, colonoscopy. Past Anesthesia/Blood Transfusion Reactions: No Reported Reaction Additional Past Anesthesia/Blood Transfusion Reaction / Comm: Pt has received blood in past without reaction. Date of Last Stent Placement:: 02/2015 Past Psychological History: No Psychological Hx Reported Smoking Status: Former smoker Past Alcohol Use History: None Reported Past Drug Use History: Marijuana - Past Family History Sister(s) Family Medical History: Coronary Artery Disease (CAD), Hypertension Father Family Medical History: Coronary Artery Disease (CAD), Diabetes Mellitus, Deep Vein Thrombosis (DVT), Hypertension Additional Family Medical History / Comment(s): Father at age 58yrs. He of blood clot from leg injury that went to his heart. Medications and Allergies Home Medications Medication Instructions Recorded Confirmed Type DULoxetine HCL [Cymbalta] 60 mg PO DAILY capsule. 08/15/19 10/20/19 Rx oxyCODONE ER [OxyCONTIN] 80 mg PO BID tab.er.12h 08/15/19 10/20/19 Rx Aspirin 325 mg PO DAILY #30 tab 09/01/19 10/20/19 Rx Atorvastatin [Lipitor] 40 mg PO DAILY #30 tab 09/01/19 10/20/19 Rx Clopidogrel [Plavix] 75 mg PO DAILY #30 tab 09/01/19 10/20/19 Rx Insulin Glargine,Hum.rec.anlog 18 unit SQ HS #0 09/01/19 10/20/19 Rx [Basaglar Kwikpen U-100] Losartan [Cozaar] 25 mg PO DAILY #30 tab 09/01/19 10/20/19 Rx Metoprolol Tartrate [Lopressor] 100 mg PO BID #120 tab 09/01/19 10/20/19 Rx Pantoprazole [Protonix] 40 mg PO AC-BRKFST #30 tablet. 09/01/19 10/20/19 Rx amLODIPine [Norvasc] 5 mg PO DAILY #30 tab 09/01/19 10/20/19 Rx INSULIN ASPART (NovoLOG) [NovoLOG See Protocol SQ ACHS 09/16/19 10/20/19 History (formulary)] Sennosides-Docusate Sodium 2 tab PO HS 09/16/19 10/20/19 History [Senokot-S] oxyCODONE HCL [oxyCODONE HCL ER] 15 mg PO Q12H 09/16/19 10/20/19 History Acetaminophen Tab [Tylenol] 650 mg PO Q6HR PRN tab 09/17/19 10/20/19 Rx Furosemide [Lasix] 40 mg PO DAILY #5 tablet 09/17/19 10/20/19 Rx Potassium Chloride ER [K-Dur 20] 40 meq PO DAILY #5 tab 09/17/19 10/20/19 Rx Allergies Allergy/AdvReac Type Severity Reaction Status Date / Time No Known Allergies Allergy Verified 10/20/19 13:14 Physical Exam Vitals: Vital Signs Temp Pulse Resp BP Pulse Ox 10/23/19 00:00 98.1 F 63 16 127/77 99 10/22/19 20:00 98.6 F 78 18 149/72 97 10/22/19 15:29 16 10/22/19 15:18 97.8 F 68 16 144/76 100 10/22/19 12:00 18 10/22/19 11:49 98.3 F 63 16 157/80 100 10/22/19 08:00 98.5 F 80 18 161/81 98 10/22/19 03:00 98.1 F 78 18 159/93 96 Intake and Output 10/22/19 10/22/19 10/23/19 14:59 22:59 06:59 Intake Total 540 Output Total 360 400 300 Balance -360 -400 240 Intake: Oral 540 Output: Urine 360 400 300 Other: Voiding Method Urinal Toilet Urinal # Voids 1 Weight 76 kg GENERAL DESCRIPTION: Middle-aged male lying in bed, no distress. No tachypnea or accessory muscle of respiration use. HEENT: Shows Pallor , no scleral icterus. Oral mucous membrane is dry. No pha ryngeal erythema or thrush NECK: Trachea central, no thyromegaly. LUNGS: Unlabored breathing. Clear to auscultation anteriorly. No wheeze or crackle. HEART: S1, S2, regular rate and rhythm. No loud murmur ABDOMEN: Soft, no tenderness , guarding or rigidity, no organomegaly EXTREMITIES: No edema of feet. SKIN: No rash, no masses palpable. NEUROLOGICAL: The patient is awake, alert, oriented x3, mood and affect normal. Results CBC & Chem 7: 10/21/19 06:51 10/22/19 05:26 Labs: Abnormal Lab Results - Last 24 Hours (Table) 10/22/19 10/22/19 10/22/19 Range/Units 05:26 06:08 11:59 Sodium 135 L (137-145) mmol/L Creatinine 0.64 L (0.66-1.25) mg/dL Glucose 173 H (74-99) mg/dL POC Glucose (mg/dL) 196 H 121 H (75-99) mg/dL 10/22/19 10/22/19 Range/Units 17:30 20:04 Sodium (137-145) mmol/L Creatinine (0.66-1.25) mg/dL Glucose (74-99) mg/dL POC Glucose (mg/dL) 178 H 329 H (75-99) mg/dL Assessment and Plan Assessment: 1- patient with worsening white count and this patient presenting symptom has been having vomiting with a question of possible abdominal source versus possible aspiration pneumonitis is currently with no evidence of any UTI or any cellulitis (1) Leukocytosis Current Visit: No Status: Acute Code(s): D72.829 - ELEVATED WHITE BLOOD CELL COUNT, UNSPECIFIED SNOMED Code(s): 831730366 Plan: 1- blood culture has been obtained , we will check a CRP and repeat a CBC tomorrow 2- discontinue Unasyn and start the patient on Zosyn 3- check ultrasound of abdomen We will follow on clinical condition and cultures to further adjust medication if needed Thank you for this consultation will follow this patient with you Time with Patient: Greater than 30
[2019-10-23] MEDS: SODIUM CHLORIDE 0.9% 1,000 ML IV SCH ×3 (03:09→18:43)
[2019-10-23] MEDS: MORPHINE SULFATE 4 MG/ML SYRINGE IVP PRN ×4 (03:10→20:03)
[2019-10-23] MEDS: PIPERACILLIN-TAZOBACTAM 3.375 GM in SODIUM CHLORIDE 0.9% 100 ML IVPB SCH ×3 (05:33→20:43)
[2019-10-23 06:14] LABS: Glucose,Whole Blood 304 mg/dL (75-99)
[2019-10-23] MEDS: INSULIN DETEMIR (LEVEMIR) 100 UNIT/ML SYR SQ SCH (06:29)
[2019-10-23] MEDS: PANTOPRAZOLE 40 MG TABLET PO SCH (06:29)
[2019-10-23] MEDS: INSULIN ASPART (NovoLOG) 100 UNIT/ML VIAL SQ SCH ×4 (06:29→20:43)
[2019-10-23] MEDS: oxyCODONE-APAP 10-325MG 1 EACH TAB PO PRN ×3 (06:32→21:24)
[2019-10-23 06:41] LABS: Basophils % (A) 0 %; Eosinophils # (A) 0.1 k/uL (0-0.7); Eosinophils % (A) 1 %; HCT 42.3 % (39.0-53.0); Hypochromasia Slight; Lymphocytes # (A) 1.8 k/uL (1.0-4.8); Lymphocytes % (A) 18 %; MCH 27.2 pg (25.0-35.0); MCHC 30.8 g/dL (31.0-37.0); MCV 88.4 fL (80.0-100.0); Mean Platelet Volume 6.7; Monocytes # (A) 0.6 k/uL (0-1.0); Monocytes % (A) 6 %; Neutrophils # (A) 7.3 k/uL (1.3-7.7); Neutrophils % (A) 73 %; Platelet Count 371 k/uL (150-450); RBC 4.79 m/uL (4.30-5.90); RDW 15.5 % (11.5-15.5); WBC 9.9 k/uL (3.8-10.6)
[2019-10-23 07:20] LABS: African American GFR (CKD) >90 (>60 ml/min/1.73 sqM); Anion Gap 6 mmol/L; Blood Urea Nitrogen 15 mg/dL (9-20); C Reactive Protein <5.0 mg/L (<10.0); Calcium 8.7 mg/dL (8.4-10.2); Carbon Dioxide 26 mmol/L (22-30); Chloride 102 mmol/L (98-107); Glucose 291 mg/dL (74-99); Non-African American GFR(CKD) >90 (>60 ml/min/1.73 sqM); Potassium 3.8 mmol/L (3.5-5.1); Sodium 134 mmol/L (137-145)
[2019-10-23] MEDS: LOSARTAN 50 MG TAB PO SCH ×2 (08:33→20:43)
[2019-10-23] MEDS: METOPROLOL TARTRATE 50 MG TAB PO SCH ×2 (08:33→20:43)
[2019-10-23] MEDS: CLOPIDOGREL 75 MG TAB PO SCH (08:33)
[2019-10-23] MEDS: DULoxetine HCL 60 MG CAPSULE.DR PO SCH (08:33)
[2019-10-23] MEDS: APIXABAN 5 MG TAB PO SCH ×2 (08:33→20:43)
[2019-10-23] MEDS: SPIRONOLACTONE 25 MG TAB PO SCH (08:33)
[2019-10-23] MEDS: amLODIPine 5 MG TAB PO SCH (08:33)
[2019-10-23] MEDS: ASPIRIN 325 MG TAB PO SCH (08:36)
--- NOTE | 2019-10-23 09:08 | US ---
EXAMINATION TYPE: US abdomen complete DATE OF EXAM: 10/23/2019 COMPARISON: NONE CLINICAL HISTORY: vomiting , elevated WBC. elevated WBC exam limitations due to over lying bowel gas. EXAM MEASUREMENTS: Liver Length: 13.6 cm Gallbladder Wall: .3 cm CBD: .4 cm Spleen: 7.7 cm Right Kidney: 9.1 x 5.0 x 4.4 cm Left Kidney: 9.8 x 4.7 x 4.1 cm Pancreas: Obscured by bowel gas Liver: Increased attenuation Gallbladder: No stones seen Evidence for sonographic Ortiz's sign: No CBD: wnl Spleen: wnl Right Kidney: wnl Left Kidney: wnl Upper IVC: wnl Abd Aorta: wnl Most of the pancreas is obscured. The liver is normal in size. There is increased echogenicity to the parenchyma and this may represent fatty infiltration. Gallbladder is normal without evidence cholelithiasis. The gallbladder wall measures 3 mm. The distal common hepatic duct measures 4 mm. The spleen is normal in size. Both kidneys appear normal. Limited views of aorta and IVC are unremarkable. IMPRESSION: PROBABLE FATTY INFILTRATION OF THE LIVER.
[2019-10-23] MEDS ORDERED: amLODIPine 5 MG TAB PO STA (11:48)
[2019-10-23 11:55] LABS: Glucose,Whole Blood 257 mg/dL (75-99)
--- NOTE | 2019-10-23 15:09 | P.PN ---
Subjective This is Fifi Oakes PA-C dictating a progress note on this patient The patient was interviewed and examined by me as well as by Dr. Caban Case discussed with Dr. Caban and he agrees with the plan of care HPI/interval history Patient is a 64-year-old male with a history significant for multivessel CAD status post CABG 3 in July 2019, paroxysmal atrial fibrillation, diabetes, ischemic cardiomyopathy, hypertension, dyslipidemia, former smoker who presented with nausea and vomiting. He was diagnosed and is being treated for diabetic ketoacidosis. Upon arrival he was in atrial fibrillation but has converted to sinus rhythm. He remains in sinus rhythm. Yesterday I increased his losartan and he remains hypertensive. Patient seen and examined resting in bed. Continues to complain of leg and back pain. No chest pain or shortness of breath. EXAMINATION Patient is afebrile, pulse in the 60s, respirations 16, blood pressure 152/76, oxygen saturation 95% on room air Patient seen and examined resting in bed, in no acute distress Lungs are clear to auscultation bilaterally Heart is regular, no audible murmurs REVIEW OF LABS, ECG WBC 9.9, hemoglobin 13.0, platelets 371, potassium 3.8, BUN 15, creatinine 0.89 IMPRESSION / ASSESSMENT: #1 diabetic ketoacidosis #2 atrial fibrillation with RVR, currently in sinus rhythm, anticoagulated #3 abnormal troponins, likely secondary to above #4 diabetes, uncontrolled #5 ischemic cardiomyopathy, EF 40-45% #6 hypertension, blood pressure has been elevated #7 dyslipidemia #8 former smoker PLAN: Increase amlodipine to 10 mg daily for hypertension management Continue cardiomyopathy medications Discontinue aspirin Monitor BMP Management of diabetes, lower extremity neuropathy per primary care team Objective - Vital Signs Vital signs: Vital Signs Temp 98.2 F 10/23/19 11:34 Pulse 68 10/23/19 11:34 Resp 16 10/23/19 11:34 BP 152/76 10/23/19 11:34 Pulse Ox 95 10/23/19 11:34 Intake & Output 10/22/19 10/23/19 10/23/19 18:59 06:59 18:59 Intake Total 1080 225 Output Total 560 1800 700 Balance -188 -505 -475 Weight 76 kg 76.7 kg Intake: Oral 1080 225 Output: Urine 560 1800 700 Other: Voiding Method Toilet Toilet Urinal Urinal # Voids 1 - Labs CBC & Chem 7: 10/23/19 06:26 10/23/19 06:26 Labs: Abnormal Lab Results - Last 24 Hours (Table) 10/22/19 10/22/19 10/23/19 Range/Units 17:30 20:04 06:11 MCHC (31.0-37.0) g/dL Sodium (137-145) mmol/L Glucose (74-99) mg/dL POC Glucose (mg/dL) 178 H 329 H 304 H (75-99) mg/dL 10/23/19 10/23/19 10/23/19 Range/Units 06:26 06:26 11:54 MCHC 30.8 L (31.0-37.0) g/dL Sodium 134 L (137-145) mmol/L Glucose 291 H (74-99) mg/dL POC Glucose (mg/dL) 257 H (75-99) mg/dL Microbiology - Last 24 Hours (Table) 10/22/19 10:35 Blood Culture - Preliminary Blood No Growth after 24 hours
[2019-10-23 15:49] LABS: Glucose,Whole Blood 316 mg/dL (75-99)
[2019-10-23 17:07] LABS: Glucose,Whole Blood 218 mg/dL (75-99)
[2019-10-23 20:04] LABS: Glucose,Whole Blood 274 mg/dL (75-99)
[2019-10-23] MEDS: ATORVASTATIN 40 MG TAB PO SCH (20:43)
--- NOTE | 2019-10-23 22:03 | PN ---
PROGRESS NOTE DATE OF SERVICE: 10/23/2019 REASON FOR FOLLOWUP: Leukocytosis. INTERVAL HISTORY: Patient is currently afebrile. The patient is feeling better. The patient denies having any chest pain. No shortness of breath or cough. No further nausea. No vomiting. No abdominal pain. No diarrhea. Overall feeling better. Wants to go home. PHYSICAL EXAMINATION: Blood pressure 144/76, pulse of 69. Temperature is 97.8. He is 98% on room air. General description: The patient is a middle-aged male lying in bed in no distress. Respiratory system: Unlabored breathing, decreased breath sounds at the bases. No wheeze. Heart S1, S2. Regular rate and rhythm. Abdomen soft, no tenderness. LABS: Hemoglobin is 13, white count 9.9, BUN of 15, creatinine 0.89. Ultrasound of the abdomen was negative. DIAGNOSTIC IMPRESSION AND PLAN: Patient with leukocytosis with concern for possible abdominal source in this patient did have predominant symptom of vomiting on presentation to the hospital. Ultrasound was negative. The patient white count normalized. Cultures negative. He is on Zosyn. Transition to oral antibiotic on discharge. . Clinical course and monitor clinical course closely. MMODL / IJN: [id number] /
[2019-10-24] MEDS: MORPHINE SULFATE 4 MG/ML SYRINGE IVP PRN (00:08)
[2019-10-24 00:29] VITALS: RESP 18
--- NOTE | 2019-10-24 01:20 | P.PN ---
Subjective On-call hospitalist covering for Dr. Lovell over the weekend From [facility] Ashok Austin is a 64 yo M with PMH significant for CAD s/p recent CABG approx 8 weeks ago, T2DM, chronic pain who presented to the ED for worsening nausea and vomiting. History obtained via chart review as pt drowsy and unable to answer questions today. He had apparently run out of some of his pain medications and had nausea/vomiting for a few days. He had not been giving himself his insulin. On presentation he was in A fib RVR, WBC 15k, glucose 390, urine and blood ketone positive, trop 0.03, Covid negative. CXR with no acute process. He converted to sinus rhythm in the ED with cardizem and was given IV fluids and placed on an insulin drip. Pts anion gap has corrected overnight and his glucose is improved but he remains lethargic and slow to rouse this morning. His WBC has risen to 20k and procalcitonin mildly elevated at 0.09. 10/22/2019 This is a pleasant 64 years old male with recent CABG presents with that the ketoacidosis and A. fib and RVR, currently sinus rhythm and his sugar is controlled, currently his on sliding scale He is fully awake and oriented, no chest pain, no coughing or dyspnea, no abdominal pain, no diarrhea, no urinary problem, he has chronic pain in his legs but also they are tender to go to check ultrasound He has chronic leukocytosis with recent worsening, we'll check procalcitonin, monitored WBC Patient is already started on Unasyn however the source of infection is unknown, his bili BC is worse today however patient has chronic leukocytosis. We'll keep monitored WBC, we will culture 10/23/2019 Patient is fully awake and oriented no chest pain or dyspnea. He still complaining from pain due to peripheral neuropathy, Doppler of the lower extremities negative for DVT His DKA has resolved , this placed back on the Levemir 18 units at bedtime as home dose, sugar still on the high side we going to increase it to 22 units at bedtime. Cardiology team are seeing the patient for chest pain and A. fib with RVR and i ncreased troponin secondary to his cardiac arrhythmia and stop aspirin will continue on Eliquis and Plavix Discontinue IV fluids Patient remains on Zosyn per ID recommendation, abdominal ultrasound is negative. WBC is back to normal today at 9.9K Objective - Vital Signs Vital signs: Vital Signs Temp 98.2 F 10/23/19 11:34 Pulse 68 10/23/19 11:34 Resp 16 10/23/19 11:34 BP 152/76 10/23/19 11:34 Pulse Ox 95 10/23/19 11:34 Intake & Output 10/22/19 10/23/19 10/23/19 18:59 06:59 18:59 Intake Total 1080 225 Output Total 560 1800 700 Balance -560 720 -475 Weight 76 kg 76.7 kg Intake: Oral 1080 225 Output: Urine 560 1800 700 Other: Voiding Method Toilet Toilet Urinal Urinal # Voids 1 - Exam GENERAL: The patient is alert and oriented x3, not in any acute distress. Well developed, well nourished. HEENT: Pupils are round and equally reacting to light. EOMI. No scleral icterus. No conjunctival pallor. Normocephalic, atraumatic. No pharyngeal erythema. No thyromegaly. CARDIOVASCULAR: S1 and S2 present. No murmurs, rubs, or gallops. PULMONARY: Chest is clear to auscultation, no wheezing or crackles. ABDOMEN: Soft, nontender, nondistended, normoactive bowel sounds. No palpable organomegaly. MUSCULOSKELETAL: No joint swelling or deformity. -EXTREMITIES: No cyanosis, clubbing, or pedal edema. Bilateral lower extremity tenderness NEUROLOGICAL: Gross neurological examination did not reveal any focal deficits. SKIN: No rashes. no petechiae. - Labs CBC & Chem 7: 10/23/19 06:26 10/23/19 06:26 Labs: Abnormal Lab Results - Last 24 Hours (Table) 10/22/19 10/22/19 10/23/19 Range/Units 17:30 20:04 06:11 MCHC (31.0-37.0) g/dL Sodium (137-145) mmol/L Glucose (74-99) mg/dL POC Glucose (mg/dL) 178 H 329 H 304 H (75-99) mg/dL 10/23/19 10/23/19 10/23/19 Range/Units 06:26 06:26 11:54 MCHC 30.8 L (31.0-37.0) g/dL Sodium 134 L (137-145) mmol/L Glucose 291 H (74-99) mg/dL POC Glucose (mg/dL) 257 H (75-99) mg/dL Microbiology - Last 24 Hours (Table) 10/22/19 10:35 Blood Culture - Preliminary Blood No Growth after 24 hours Assessment and Plan Assessment: Diabetic ketoacidosis, resolved A. fib with RVR, convert to sinus rhythm Recent CABG diabetes mellitus diabetic peripheral neuropathy Leukocytosis, chronic but recent worsening possible infection GERD Hyperlipidemia Hypertension History of coronary artery disease Plan: This is a pleasant 64 years old male who presents with A. fib and RVR, diabetic ketoacidosis. Continue with Eliquis and Plavix will stop aspirin, continue with Zosyn. Postoperative fluid. Increase Levemir to 22 units, increase Norvasc per cardiology recommendation to 10 mg daily. Patient is followed closely by cardiology and infectious disease team Resume home pain medication requested by the patient. MAPS was checked Labs and medication were reviewed.. Continue same treatment. Continue with symptomatic treatment. Resume home medication. Monitor lytes and vitals. DVT and GI prophylaxis. Further recommendations of the clinical course of the patient DVT prophylaxis: Eliquis GI Prophylaxis: Ppi Dr. Lovell will resume the care of the patient tomorrow
[2019-10-24] MEDS ORDERED: INSULIN DETEMIR (LEVEMIR) 100 UNIT/ML SYR SQ ONE (01:45)
[2019-10-24] MEDS ORDERED: oxyCODONE ER 15 MG TAB.ER.12H PO PRN (02:00)
[2019-10-24 03:30] VITALS: TEMP 98.1
[2019-10-24] MEDS: PIPERACILLIN-TAZOBACTAM 3.375 GM in SODIUM CHLORIDE 0.9% 100 ML IVPB SCH (05:40)
[2019-10-24 06:23] LABS: Glucose,Whole Blood 327 mg/dL (75-99)
[2019-10-24] MEDS: PANTOPRAZOLE 40 MG TABLET PO SCH (06:32)
[2019-10-24] MEDS: INSULIN ASPART (NovoLOG) 100 UNIT/ML VIAL SQ SCH (06:32)
[2019-10-24 06:56] LABS: African American GFR (CKD) >90 (>60 ml/min/1.73 sqM); Anion Gap 7 mmol/L; Blood Urea Nitrogen 17 mg/dL (9-20); Calcium 8.9 mg/dL (8.4-10.2); Carbon Dioxide 27 mmol/L (22-30); Chloride 99 mmol/L (98-107); Glucose 344 mg/dL (74-99); Non-African American GFR(CKD) >90 (>60 ml/min/1.73 sqM); Potassium 3.6 mmol/L (3.5-5.1); Sodium 133 mmol/L (137-145)
[2019-10-24] MEDS ORDERED: INSULIN DETEMIR (LEVEMIR) 100 UNIT/ML SYR SQ SCH (07:00)
[2019-10-24 07:17] LABS: Glucose,Whole Blood 275 mg/dL (75-99)
[2019-10-24] MEDS ORDERED: amLODIPine 10 MG TAB PO SCH (09:00)
[2019-10-24] MEDS ORDERED: oxyCODONE ER 80 MG TAB.ER.12H PO SCH (09:00)
[2019-10-24] MEDS: METOPROLOL TARTRATE 50 MG TAB PO SCH (09:08)
[2019-10-24] MEDS: LOSARTAN 50 MG TAB PO SCH (09:08)
[2019-10-24] MEDS: SPIRONOLACTONE 25 MG TAB PO SCH (09:09)
[2019-10-24] MEDS: DULoxetine HCL 60 MG CAPSULE.DR PO SCH (09:09)
[2019-10-24] MEDS: CLOPIDOGREL 75 MG TAB PO SCH (09:09)
[2019-10-24] MEDS: APIXABAN 5 MG TAB PO SCH (09:09)
--- NOTE | 2019-10-24 09:33 | PN ---
PROGRESS NOTE This is a 64-year-old gentleman, I am seeing for the first time this morning, is being admitted to hospital with complex and multiple medical problems. He has history of coronary artery disease for which he underwent bypass surgery, paroxysmal atrial fibrillation, diabetes, ischemic cardiomyopathy, hypertension, dyslipidemia, and was admitted with diabetic ketoacidosis. He was in atrial fibrillation when he first presented to hospital but subsequently converted to sinus rhythm. He has had some issues with pain control on this admission, but cardiac-valencia he is doing well. He denies chest pain, difficulty in breathing, palpitations, dizziness or syncope. PHYSICAL EXAM: He is afebrile. Heart rate is 69 beats per minute. Blood pressure is 140/67, respiratory rate is 18, O2 saturation is 96% on room air. There is no jugular venous distention. Carotid upstroke is normal. There is no bruit. Chest exam reveals good air entry bilaterally. Heart exam reveals first and second heart sounds. Systolic murmur at the left lower sternal border. Abdomen is soft. Exam of extremities did not reveal any edema. Peripheral pulses are felt. CURRENT MEDICATIONS: Include Norvasc 10 q, daily, Eliquis 5 b.i.d., Lipitor 40 q. daily, Plavix, insulin, Cozaar 50 b.i.d., Lopressor 100 b.i.d., and sublingual nitroglycerin along with Aldactone. LABS: Show that the potassium is 3.6, creatinine is 0.8. CBC shows a hemoglobin of 13, platelet count is 370. ASSESSMENT: 1. Coronary artery disease, status post coronary artery bypass grafting. 2. Ischemic cardiomyopathy. 3. Diabetic ketoacidosis. 4. Paroxysmal atrial fibrillation. PLAN: Patient is on appropriate medical therapy and will continue the same. MMODL / IJN: [id number] /
--- NOTE | 2019-10-24 10:44 | P.DS ---
Providers Date of admission: 10/20/19 14:19 Expected date of discharge: 10/24/19 Attending physician: Puma Lovell MD Consults: 10/20/19 15:47 Consult Physician Urgent Consulting Provider: [facility] Consult Reason/Comments: Chest pain, atrial flutter Do you want consulting provider notified?: Yes 10/20/19 17:52 Consult Physician Routine Consulting Provider: Cris Denson Consult Reason/Comments: pt sp cabg pt admitted afib rvr, dka Do you want consulting provider notified?: Yes 10/22/19 10:24 Consult Physician Routine Consulting Provider: Diana Pelletier Consult Reason/Comments: Leukocytosis, on Unasyn Do you want consulting provider notified?: Yes Primary care physician: Brandy Belcher [facility] Course: Final Diagnoses: (1) Metabolic encephalopathy Current Visit: Yes Status: Acute Code(s): G93.41 - METABOLIC ENCEPHALOPATHY SNOMED Code(s): 73829324 (2) paroxysmal Atrial flutter, atrial fibrillation with rapid ventricular response, converted to sinus rhythm Current Visit: Yes Status: Acute Code(s): I48.92 - UNSPECIFIED ATRIAL FLUTTER SNOMED Code(s): 4154708 (3) Diabetic ketoacidosis, resolved Current Visit: Yes Status: Acute Code(s): E11.10 - TYPE 2 DIABETES MELLITUS WITH KETOACIDOSIS WITHOUT COMA SNOMED Code(s): 383323215 (4) Hypertensive urgency Current Visit: Yes Status: Acute Code(s): I16.0 - HYPERTENSIVE URGENCY SNOMED Code(s): 129419146 (5) CAD (coronary artery disease), recent CABG, ischemic cardiomyopathy Current Visit: No Status: Acute Code(s): I25.10 - ATHSCL HEART DISEASE OF [place] CORONARY ARTERY W/O ANG PCTRS SNOMED Code(s): 40138521 (6) leukocytosis, etiology unclear, possible abdominal source in a patient who presented with nausea vomiting on admission, resolved with IV antibiotics (7) diabetes mellitus (8) diabetic peripheral neuropathy (9) gastroesophageal reflux disease (10) hypertension (11) hyperlipidemia Hospital course:Ashok Austin is a 64 yo M with PMH significant for CAD s/p recent CABG approx 8 weeks ago, T2DM, chronic pain who presented to the ED for worsening nausea and vomiting. History obtained via chart review as pt drowsy and unable to answer questions today. He had apparently run out of some of his pain medications and had nausea/vomiting for a few days. He had not been giving himself his insulin. On presentation he was in A fib RVR, WBC 15k, glucose 390, urine and blood ketone positive, trop 0.03, Covid negative. CXR with no acute process. He converted to sinus rhythm in the ED with cardizem and was given IV fluids and placed on an insulin drip. Pts anion gap has corrected overnight and his glucose is improved but he remains lethargic and slow to rouse this morning. His WBC has risen to 20k and procalcitonin mildly elevated at 0.09. Evaluated by cardiothoracic surgery, cardiology, ID. Maintained on IV antibiotic of Zosyn with completion of antibiotic treatment outpatient with Avelox as per ID. Levemir increased to 25 units . close monitoring of Accu- Cheks, further diabetic education in PCPs office .Significant clinical improvement. Patient will be discharged home in a stable condition with guarded prognosis pending final DC recommendations/clearance from cardiothoracic surgery, cardiology. The impression and plan of care has been dictated as directed. .: I performed a history and examination of this patient, discussed the same with the dictator. I agree with the dictator's note ,documented as a scribe. Any additional findings or plans will be noted. Patient Condition at Discharge: Stable Plan - Discharge Summary Discharge Rx Participant: No New Discharge Prescriptions: New Spironolactone [Aldactone] 25 mg PO DAILY #30 tab Moxifloxacin HCl [Avelox] 400 mg PO DAILY #7 tablet Losartan [Cozaar] 50 mg PO BID #60 tab Apixaban [Eliquis] 5 mg PO BID #60 tab amLODIPine [Norvasc] 10 mg PO DAILY #60 tab Nitroglycerin Sl Tabs [Nitrostat] 0.4 mg SUBLINGUAL Q5M PRN tab PRN Reason: Chest Pain Continue DULoxetine HCL [Cymbalta] 60 mg PO DAILY capsule. oxyCODONE ER [OxyCONTIN] 80 mg PO BID tab.er.12h Atorvastatin [Lipitor] 40 mg PO DAILY #30 tab Metoprolol Tartrate [Lopressor] 100 mg PO BID #120 tab Clopidogrel [Plavix] 75 mg PO DAILY #30 tab Pantoprazole [Protonix] 40 mg PO AC-BRKFST #30 tablet. INSULIN ASPART (NovoLOG) [NovoLOG (formulary)] See Protocol SQ ACHS Sennosides-Docusate Sodium [Senokot-S] 2 tab PO HS oxyCODONE HCL [oxyCODONE HCL ER] 15 mg PO Q12H Furosemide [Lasix] 40 mg PO DAILY #5 tablet Changed Insulin Glargine,Hum.rec.anlog [Basaglar Kwikpen U-100] 25 unit SQ HS #0 Discontinued Aspirin 325 mg PO DAILY #30 tab Losartan [Cozaar] 25 mg PO DAILY #30 tab amLODIPine [Norvasc] 5 mg PO DAILY #30 tab Insulin Glargine,Hum.rec.anlog [Basaglar Kwikpen U-100] 18 unit SQ HS #0 Potassium Chloride ER [K-Dur 20] 40 meq PO DAILY #5 tab Acetaminophen Tab [Tylenol] 650 mg PO Q6HR PRN tab PRN Reason: Mild Pain Or Fever > 100.5 Discharge Medication List DULoxetine HCL [Cymbalta] 60 mg PO DAILY capsule. 08/15/19 [Rx] oxyCODONE ER [OxyCONTIN] 80 mg PO BID tab.er.12h 08/15/19 [Rx] Atorvastatin [Lipitor] 40 mg PO DAILY #30 tab 09/01/19 [Rx] Clopidogrel [Plavix] 75 mg PO DAILY #30 tab 09/01/19 [Rx] Metoprolol Tartrate [Lopressor] 100 mg PO BID #120 tab 09/01/19 [Rx] Pantoprazole [Protonix] 40 mg PO AC-BRKFST #30 tablet. 09/01/19 [Rx] INSULIN ASPART (NovoLOG) [NovoLOG (formulary)] See Protocol SQ ACHS 09/16/19 [History] Sennosides-Docusate Sodium [Senokot-S] 2 tab PO HS 09/16/19 [History] oxyCODONE HCL [oxyCODONE HCL ER] 15 mg PO Q12H 09/16/19 [History] Furosemide [Lasix] 40 mg PO DAILY #5 tablet 09/17/19 [Rx] Apixaban [Eliquis] 5 mg PO BID #60 tab 10/24/19 [Rx] Insulin Glargine,Hum.rec.anlog [Basaglar Kwikpen U-100] 25 unit SQ HS #0 10/24/19 [Rx] Losartan [Cozaar] 50 mg PO BID #60 tab 10/24/19 [Rx] Moxifloxacin HCl [Avelox] 400 mg PO DAILY #7 tablet 10/24/19 [Rx] Nitroglycerin Sl Tabs [Nitrostat] 0.4 mg SUBLINGUAL Q5M PRN tab 10/24/19 [Rx] Spironolactone [Aldactone] 25 mg PO DAILY #30 tab 10/24/19 [Rx] amLODIPine [Norvasc] 10 mg PO DAILY #60 tab 10/24/19 [Rx] Follow up Appointment(s)/Referral(s): Puma Lovell MD [STAFF PHYSICIAN] - 3 Days Ambulatory/Diagnostic Orders: Complete Blood Count w/diff [LAB.AMB] Time Frame: 3 Days, Location: None Selected Activity/Diet/Wound Care/Special Instructions: Confirm follow-up with cardiothoracic surgery cardiology prior to discharge. Final DC recommendations including diuretics and clearance from cardiothoracic surgery and cardiology.
[2019-10-24 10:53] VITALS: BP 134/75; PULSE 77
[2019-10-24 12:11] LABS: Glucose,Whole Blood 219 mg/dL (75-99)
[2019-10-24 13:51] VITALS: BMI 26.7
--- NOTE | 2019-10-24 14:34 | PN ---
PROGRESS NOTE DATE OF SERVICE: 10/24/2019 REASON FOR FOLLOWUP: Leukocytosis, possible abdominal source. INTERVAL HISTORY: Patient is currently afebrile. The patient is breathing comfortably. Denies having any chest pain or cough. No abdominal pain. No diarrhea. Feeling better, wants to go home. PHYSICAL EXAMINATION: Blood pressure 134/75 with a pulse of 77, temperature 98.1, he is 97% on room air. General description is a middle-aged male, up in the bed in no distress. RESPIRATORY SYSTEM: Unlabored breathing, clear to auscultation anteriorly. HEART: S1, S2. Regular rate and rhythm. ABDOMEN: Soft, no tenderness. LABS: Creatinine 0.82. Blood culture negative. DIAGNOSTIC IMPRESSION AND PLAN: Patient with elevated white count, admitted to hospital with vomiting, clinical responding to the Zosyn and finishing a short course of oral Avelox. Did appear to have worsening of the white count on Unasyn and culture has been negative. This was discussed with the nurse practitioner for admitting team working on discharge. MMODL / IJN: [id number] /
== END 2019-10-24 15:15 | disposition home or self-care (01) | DRG 637 ==
LOC: EC 12:41 → 3SCARD 14:19
PROVIDERS: ADMIT Family Medicine; ATTEND Family Medicine
DX: E11.10 Type 2 diabetes mellitus with ketoacidosis without coma (principal); G93.41 Metabolic encephalopathy; I48.92 Unspecified atrial flutter; D72.829 Elevated white blood cell count, unspecified; E11.42 Type 2 diabetes mellitus with diabetic polyneuropathy; E78.5 Hyperlipidemia, unspecified; G89.29 Other chronic pain; I10 Essential (primary) hypertension; I16.0 Hypertensive urgency; I25.10 Atherosclerotic heart disease of native coronary artery without angina pectoris; I25.2 Old myocardial infarction; I25.5 Ischemic cardiomyopathy; I48.0 Paroxysmal atrial fibrillation; K21.9 Gastro-esophageal reflux disease without esophagitis; Z20.828 Contact with and (suspected) exposure to other viral communicable diseases; M54.5 Low back pain; R07.89 Other chest pain; R79.89 Other specified abnormal findings of blood chemistry; Z79.02 Long term (current) use of antithrombotics/antiplatelets; Z79.4 Long term (current) use of insulin; Z79.82 Long term (current) use of aspirin; Z79.891 Long term (current) use of opiate analgesic; Z79.899 Other long term (current) drug therapy; Z95.1 Presence of aortocoronary bypass graft; Z87.891 Personal history of nicotine dependence; Z95.5 Presence of coronary angioplasty implant and graft; Z87.440 Personal history of urinary (tract) infections; Z82.49 Family history of ischemic heart disease and other diseases of the circulatory system; Z83.3 Family history of diabetes mellitus
CPT/HCPCS: 36415; 71046; 76700; 80048; 80051; 80053; 81001; 82009; 82565; 82947; 83735; 84100; 84132; 84145; 84484; 84520; 85025; 85027; 85610; 85730; 86140; 87040; 93005; 93970; 96361; 96365; 96366; 96374; 96375; 96376; 99291

== ENCOUNTER 2019-11-15 19:27 | Inpatient (IN) | payer MEDICARE ==
[2019-11-15] MEDS ORDERED: SODIUM CHLORIDE 0.9% 1,000 ML IV STA (20:01)
--- NOTE | 2019-11-15 20:08 | ED ---
Dizziness HPI - General Chief Complaint: Dizziness Stated Complaint: Dizziness Time Seen by Provider: 11/15/19 19:30 Source: patient, EMS, RN notes reviewed Mode of arrival: EMS Limitations: no limitations - History of Present Illness Initial Comments: This is a 64-year-old male history diabetes heart disease bypass surgery who is brought in by EMS because of dizziness and passing out. He states that he was dizzy lightheaded and found himself on the floor he believes he may have been out for around 30 seconds. He complains no particular pain other than he believes is knees have banged up a bit. EMS brought him and he was noted have a blood pressure of about 70 systolic. He denies any chest pain fevers chills. He states she's not been able eat or drink last couple days because of persistent nausea and he vomits when he tries to drink fluids. He denies any abdominal pain no diarrhea no other symptoms MD Complaint: dizziness, lightheadedness, near syncope, other - Related Data Home Medications Medication Instructions Recorded Confirmed Sennosides-Docusate Sodium 2 tab PO HS 09/16/19 10/20/19 [Senokot-S] oxyCODONE HCL [oxyCODONE HCL ER] 15 mg PO Q12H 09/16/19 10/20/19 Previous Rx's Medication Instructions Recorded DULoxetine HCL [Cymbalta] 60 mg PO DAILY capsule. 08/15/19 oxyCODONE ER [OxyCONTIN] 80 mg PO BID tab.er.12h 08/15/19 Clopidogrel [Plavix] 75 mg PO DAILY #30 tab 09/01/19 Pantoprazole [Protonix] 40 mg PO AC-BRKFST #30 tablet. 09/01/19 Apixaban [Eliquis] 5 mg PO BID #60 tab 10/24/19 Apixaban [Eliquis] 5 mg PO BID #60 tab 10/24/19 Atorvastatin [Lipitor] 40 mg PO DAILY #30 tab 10/24/19 Clopidogrel [Plavix] 75 mg PO DAILY #30 tab 10/24/19 Furosemide [Lasix] 20 mg PO DAILY #1 tablet 10/24/19 INSULIN ASPART (NovoLOG) [NovoLOG See Protocol SQ ACHS #1 vial 10/24/19 (formulary)] Insulin Glargine,Hum.rec.anlog 25 unit SQ HS #0 10/24/19 [Basaglar Kwikpen U-100] Losartan [Cozaar] 50 mg PO BID #60 tab 10/24/19 Metoprolol Tartrate [Lopressor] 100 mg PO BID #120 tab 10/24/19 Moxifloxacin HCl [Avelox] 400 mg PO DAILY #7 tablet 10/24/19 Nitroglycerin Sl Tabs [Nitrostat] 0.4 mg SUBLINGUAL Q5M PRN tab 10/24/19 Spironolactone [Aldactone] 25 mg PO DAILY #30 tab 10/24/19 amLODIPine [Norvasc] 10 mg PO DAILY #60 tab 10/24/19 Allergies Allergy/AdvReac Type Severity Reaction Status Date / Time No Known Allergies Allergy Verified 11/15/19 19:32 Review of Systems ROS Statement: Those systems with pertinent positive or pertinent negative responses have been documented in the HPI. ROS Other: All systems not noted in ROS Statement are negative. Past Medical History Past Medical History: Atrial Fibrillation, Coronary Artery Disease (CAD), Chest Pain / Angina, Diabetes Mellitus, GERD/Reflux, Hyperlipidemia, Hypertension, Myocardial Infarction ([place]) Additional Past Medical History / Comment(s): Pt had CABG 07/2019 and had post op Afib/UTI with pseudomonas aeruginosa, ischemic cardiomyopathy, IDDM type II, pa st R scrotal abscess with sepsis, chronic lower back pain and bilateral leg pain, Last Myocardial Infarction Date:: 03/20/15 History of Any Multi-Drug Resistant Organisms: None Reported Past Surgical History: Back Surgery, Coronary Bypass/CABG, Heart Catheterization, Heart Catheterization With Stent, Orthopedic Surgery Additional Past Surgical History / Comment(s): 08/23/2019 CABG 3 vessels, PCI wi th total of 5 stents, L ankle ligament repair, R leg ORIF, low back surgery, colonoscopy. Past Anesthesia/Blood Transfusion Reactions: No Reported Reaction Additional Past Anesthesia/Blood Transfusion Reaction / Comment(s): Pt has received blood in past without reaction. Date of Last Stent Placement:: 02/2015 Past Psychological History: No Psychological Hx Reported Smoking Status: Former smoker Past Alcohol Use History: None Reported Past Drug Use History: Marijuana - Past Family History Sister(s) Family Medical History: Coronary Artery Disease (CAD), Hypertension Father Family Medical History: Coronary Artery Disease (CAD), Diabetes Mellitus, Deep Vein Thrombosis (DVT), Hypertension Additional Family Medical History / Comment(s): Father at age 58yrs. He of blood clot from leg injury that went to his heart. General Exam - General Exam Comments Initial Comments: This is a well-developed well-nourished awake alert oriented times 3 male Limitations: no limitations General appearance: alert, in no apparent distress Head exam: Present: atraumatic, normocephalic, normal inspection Eye exam: Present: normal appearance, PERRL, EOMI. Absent: scleral icterus, conjunctival injection, periorbital swelling ENT exam: Present: mucous membranes dry Neck exam: Present: normal inspection. Absent: tenderness, meningismus, lymphadenopathy Respiratory exam: Present: normal lung sounds bilaterally. Absent: respiratory distress, wheezes, rales, rhonchi, stridor Cardiovascular Exam: Present: regular rate, normal rhythm, normal heart sounds. Absent: systolic murmur, diastolic murmur, rubs, gallop, clicks GI/Abdominal exam: Present: soft, normal bowel sounds. Absent: distended, tenderness, guarding, rebound, rigid Extremities exam: Present: normal inspection, full ROM, normal capillary refill. Absent: tenderness, pedal edema, joint swelling, calf tenderness Back exam: Present: normal inspection Neurological exam: Present: alert, oriented X3, CN II-XII intact Psychiatric exam: Present: normal affect, normal mood Skin exam: Present: warm, dry, intact, normal color. Absent: rash Course Vital Signs 11/15/19 11/15/19 11/15/19 19:28 20:31 20:42 Temperature 97.9 F Pulse Rate 74 67 66 Respiratory 18 16 18 Rate Blood Pressure 86/44 54/34 69/33 O2 Sat by Pulse 100 96 94 L Oximetry 11/15/19 11/15/19 21:08 21:22 Temperature Pulse Rate 67 61 Respiratory 18 16 Rate Blood Pressure 68/42 77/43 O2 Sat by Pulse 93 L Oximetry - Reevaluation(s) Reevaluation #1: 11/15/19 22:09 Patient is more alert and feeling somewhat improved after IV fluids. He currently is not nauseated. Blood pressure is slowly improving EKG Findings - EKG Results: EKG: interpreted by DEANN, sinus rhythm (Sinus rhythm a 69. VT interval 196 QRS 106 QT since QTC 492/527 left exodeviation old inferior changes prolonged QT) Medical Decision Making - Medical Decision Making Patient continues to improve with respect to his blood pressure though still somewhat low he does reiterate that he is not been able to eat or drink much over last several days. He will be admitted he does have evidence of acute kidney injury/acute renal failure. IV fluids will be continued nephrology will be consulted. The case is discussed with Dr. Bo the troponin is somewhat elevated this is likely secondary to the kidney failure. - Lab Data Result diagrams: 11/15/19 19:34 11/15/19 19:34 Lab Results 11/15/19 11/15/19 11/15/19 Range/Units 19:34 19:34 20:07 WBC 14.2 H (3.8-10.6) k/uL RBC 5.58 (4.30-5.90) m/uL Hgb 15.0 (13.0-17.5) gm/dL Hct 48.2 (39.0-53.0) % MCV 86.4 (80.0-100.0) fL MCH 26.8 (25.0-35.0) pg MCHC 31.0 (31.0-37.0) g/dL RDW 16.3 H (11.5-15.5) % Plt Count 445 (150-450) k/uL Neutrophils % 74 % Lymphocytes % 16 % Monocytes % 8 % Eosinophils % 0 % Basophils % 0 % Neutrophils # 10.5 H (1.3-7.7) k/uL Lymphocytes # 2.3 (1.0-4.8) k/uL Monocytes # 1.1 H (0-1.0) k/uL Eosinophils # 0.1 (0-0.7) k/uL Basophils # 0.1 (0-0.2) k/uL Anisocytosis Slight Sodium 130 L (137-145) mmol/L Potassium 4.3 (3.5-5.1) mmol/L Chloride 91 L (98-107) mmol/L Carbon Dioxide 20 L (22-30) mmol/L Anion Gap 19 mmol/L BUN 56 H (9-20) mg/dL Creatinine 4.67 H (0.66-1.25) mg/dL Est GFR (CKD-EPI)AfAm 14 (>60 ml/min/1.73 sqM) Est GFR (CKD-EPI)NonAf 12 (>60 ml/min/1.73 sqM) Glucose 143 H (74-99) mg/dL Calcium 8.9 (8.4-10.2) mg/dL Magnesium 1.7 (1.6-2.3) mg/dL Total Bilirubin 0.6 (0.2-1.3) mg/dL AST 26 (17-59) U/L ALT 13 (4-49) U/L Alkaline Phosphatase 105 (38-126) U/L Creatine Kinase 52 L (55-170) U/L Troponin I 0.083 H* (0.000-0.034) ng/mL Total Protein 6.6 (6.3-8.2) g/dL Albumin 4.1 (3.5-5.0) g/dL - Radiology Data Radiology results: image reviewed (I did review the imaging no definite acute changes.) Critical Care Time Critical Care Time: Yes Total Critical Care Time: 37 Critical Care Time: 37 minutes of critical care time which includes initial presentation with histor y physical labs x-rays multiple reevaluation the patient response to therapy several discussions with the patient regarding findings discussion with the admitting physician Dr. bo. Review of old charts available documentation the above Disposition Clinical Impression: Acute kidney injury, Acute renal failure, Hypotension, Dehydration, Nausea Disposition: ADMITTED IP TO THIS [facility] Condition: Fair Referrals: Dexter Ji DO [Primary Care Provider] - 1-2 days
[2019-11-15] MEDS: SODIUM CHLORIDE 0.9% 1,000 ML IV STA ×2 (20:10→20:41)
[2019-11-15 20:28] LABS: Anisocytosis Slight; Basophils # (A) 0.1 k/uL (0-0.2); Basophils % (A) 0 %; Eosinophils # (A) 0.1 k/uL (0-0.7); Eosinophils % (A) 0 %; HCT 48.2 % (39.0-53.0); Lymphocytes # (A) 2.3 k/uL (1.0-4.8); Lymphocytes % (A) 16 %; MCH 26.8 pg (25.0-35.0); MCV 86.4 fL (80.0-100.0); Mean Platelet Volume 6.9; Monocytes # (A) 1.1 k/uL (0-1.0); Monocytes % (A) 8 %; Neutrophils # (A) 10.5 k/uL (1.3-7.7); Neutrophils % (A) 74 %; Platelet Count 445 k/uL (150-450); RBC 5.58 m/uL (4.30-5.90); RDW 16.3 % (11.5-15.5); WBC 14.2 k/uL (3.8-10.6)
[2019-11-15 20:38] LABS: Albumin 4.1 g/dL (3.5-5.0); Calcium 8.9 mg/dL (8.4-10.2); Magnesium 1.7 mg/dL (1.6-2.3); Total Bilirubin 0.6 mg/dL (0.2-1.3); Total Protein 6.6 g/dL (6.3-8.2)
[2019-11-15] MEDS ORDERED: SODIUM CHLORIDE 0.9% 1,000 ML IV ONE ×2 (20:40→21:20)
[2019-11-15 20:43] LABS: Potassium 4.3 mmol/L (3.5-5.1)
[2019-11-15] MEDS ORDERED: NALOXONE 0.4 MG/ML 1 ML VIAL IV PRN (22:15)
[2019-11-15] MEDS ORDERED: NITROGLYCERIN SL TABS 0.4 MG TAB SUBLINGUAL PRN (22:18)
--- NOTE | 2019-11-15 22:41 | XR ---
EXAMINATION TYPE: XR chest 1V portable DATE OF EXAM: 11/15/2019 COMPARISON: 10/20/2019 HISTORY: Hypotension TECHNIQUE: FINDINGS: There is no heart failure nor confluent pneumonic infiltrate. Costophrenic angles are clear . There are sternal wires. IMPRESSION: No active cardiopulmonary disease. No change.
[2019-11-15] MEDS: SODIUM CHLORIDE 0.9% 1,000 ML IV SCH (23:19)
[2019-11-16 06:11] LABS: Glucose,Whole Blood 125 mg/dL (75-99)
[2019-11-16] MEDS: SODIUM CHLORIDE 0.9% 1,000 ML IV SCH ×3 (06:16→22:25)
[2019-11-16] MEDS: INSULIN ASPART (NovoLOG) 100 UNIT/ML VIAL SQ SCH ×4 (06:16→20:43)
[2019-11-16] MEDS: PANTOPRAZOLE 40 MG TABLET PO SCH (06:16)
[2019-11-16] MEDS: APIXABAN 5 MG TAB PO SCH ×2 (08:13→20:49)
[2019-11-16] MEDS: oxyCODONE ER 80 MG TAB.ER.12H PO SCH ×2 (08:13→20:49)
[2019-11-16] MEDS: DULoxetine HCL 60 MG CAPSULE.DR PO SCH (08:13)
[2019-11-16] MEDS: ATORVASTATIN 40 MG TAB PO SCH (08:13)
[2019-11-16] MEDS: CLOPIDOGREL 75 MG TAB PO SCH (08:13)
[2019-11-16 08:35] LABS: Calcium 7.4 mg/dL (8.4-10.2); Potassium 3.3 mmol/L (3.5-5.1)
[2019-11-16] MEDS ORDERED: METOPROLOL TARTRATE 50 MG TAB PO SCH (09:00)
[2019-11-16] MEDS ORDERED: SPIRONOLACTONE 25 MG TAB PO SCH (09:00)
[2019-11-16] MEDS ORDERED: ACETAMINOPHEN TAB 325 MG TAB PO PRN (12:18)
[2019-11-16 12:32] LABS: Glucose,Whole Blood 241 mg/dL (75-99)
[2019-11-16] MEDS ORDERED: POTASSIUM CHLORIDE ER 20 MEQ TAB.ER PO STA (12:53)
--- NOTE | 2019-11-16 13:47 | US ---
EXAMINATION TYPE: US kidneys/renal and bladder DATE OF EXAM: 11/16/2019 COMPARISON: US CLINICAL HISTORY: RF. MATHEUS, diabetic EXAM MEASUREMENTS: Right Kidney: 10.7 x 5.3 x 5.3 cm Left Kidney: 10.1 x 5.6 x 5.2 cm Post Void Residual Volume: not assessed on inpatient Right Kidney: mild hydronephrosis as hypoechoic sinus area seen at mid pole; crescent shaped hypoecho ic area seen adjacent to cortex suggests sonographic "sweat sign", i.e. renal failure. Left Kidney: mild hydronephrosis as hypoechoic sinus area seen at mid pole Bladder: wnl Bilateral Jets seen: yes No masses are identified. The urinary bladder is anechoic. Bilateral ureteral jets are seen. IMPRESSION: Mild bilateral hydronephrosis. No nephrolithiasis.
[2019-11-16] MEDS ORDERED: HYDROmorphone 0.5 MG/0.5 ML SYRINGE IVP PRN (14:03)
[2019-11-16] MEDS ORDERED: ALPRAZolam 0.25 MG TAB PO PRN (14:03)
[2019-11-16] MEDS ORDERED: HYDROcodone/APAP 5-325MG 1 EACH TAB PO PRN (14:03)
[2019-11-16 14:04] LABS: Glucose,Whole Blood 139 mg/dL (75-99)
[2019-11-16] MEDS: IOPAMIDOL CONTRAST (ORAL USE) VIAL PO PRN ×2 (14:11→14:44)
[2019-11-16] MEDS: ONDANSETRON 4 MG/2 ML VIAL IVP PRN (14:30)
--- NOTE | 2019-11-16 16:04 | CT ---
EXAMINATION TYPE: CT abdomen pelvis wo con DATE OF EXAM: 11/16/2019 HISTORY: Abnormal renal function. Elevated kidney labs. CT DLP: 687.8 mGycm. Automated Exposure Control for Dose Reduction was Utilized. TECHNIQUE: CT scan of the abdomen and pelvis is performed with oral but without IV contrast. COMPARISON: CT abdomen and pelvis August 13, [address] older [address]s. Renal ultrasound earlier today FINDINGS: Within the limitations of a non-contrast study, the following observations are made. LUNG BASES: There are new sternotomy wires with abnormal soft tissue and incomplete sternal fusion li anu reflecting product of recent sternotomy.. No mediastinal clips from CABG procedure are noted. Th ere is small to tiny ill-defined fluid also anterior to the pericardium on current study. LIVER/GB: No significant abnormality is appreciated. PANCREAS: No significant abnormality is seen. SPLEEN: No significant abnormality is seen. ADRENALS: Persistent low dense thickening to both adrenal glands consistent with benign lipid rich hy perplasia. KIDNEYS: Central vascular calcifications in both kidneys. Mild right greater than left pyelocaliectas is as suspected on recent ultrasound is confirmed. No hydroureter or obstructing ureteral calculi abhay ayad seen bilaterally. Bladder not greatly distended without intraluminal mass or calculus. Few scatt ered pelvic phleboliths. BOWEL: Oral contrast does not reach level of the terminal ileum making evaluation of wall suboptimal. There is mildly distended stomach and duodenal sweep. There is some prominence of proximal jejunal l oops in the left abdomen. There is no additional small or large bowel dilatation. Cecum is slightly w andering into the anterior right midabdomen. Mild to moderate prominence of fecal material in the rig ht colon. Some redundancy of the sigmoid colon with some proximal sigmoid colonic diverticula. Mild w all thickening at this level is presumed product of poor distention. GENITAL ORGANS: No gross abnormality seen. LYMPH NODES: No greater than 1cm abdominal or pelvic lymph nodes are appreciated. OSSEOUS STRUCTURES: Postsurgical changes lower lumbar spine with multilevel laminectomy defects and s pinous process resection. Transitional type vertebra lumbosacral junction. Aaiudbnj-my-roqhjx multile merritt disc space narrowing L2-L3 through the L5-L6 levels. Osseous structures are demineralized. Modera te narrowing and spurring in both hip joints. OTHER: No significant additional abnormality is seen. IMPRESSION: New mild bilateral right greater than left mild hydronephrosis is confirmed. No obstructi ng stone or hydroureter identified. Consider vesicoureteral reflux as possible etiology.
[2019-11-16 16:53] LABS: Glucose,Whole Blood 210 mg/dL (75-99)
--- NOTE | 2019-11-16 17:19 | HP ---
HISTORY AND PHYSICAL DATE OF SERVICE: 11/16/2019 CHIEF COMPLAINT: Dizziness and renal failure. HISTORY OF PRESENT ILLNESS: This 64-year-old gentleman with a past medical history of multiple medical problems, including history or atrial fibrillation, CAD, history of diabetes mellitus, history of GERD, hypertension, hyperlipidemia, history of myocardial infarction, CAD, CABG stent, being followed by Dr. Dexter Ji in the outpatient setting, was admitted with dizziness. EMS brought him out. The patient apparently passed out. The patient was lightheaded initially. Subsequently the patient found himself on the floor after falling. The patient was apparently out for about 30 seconds. EMS found his blood pressure was 70 systolic. The patient was not able to drink because of persistent nausea and vomiting, and the patient was taken to [facility] and admitted for evaluation and treatment. After admission, troponins were found to be 0.083. Creatinine was elevated up to 4.6, indicating acute renal failure. Baseline creatinine was 0.82 a few weeks ago. WBC was also elevated. The chest x-ray which was reviewed by me showed no acute abnormality. The patient also had a bladder ultrasound which showed mild bilateral hydronephrosis. CT scan was requested. The patient was admitted for further evaluation. UA is not available. There is no history of any fever, rigor or chills. No history of headache, loss of consciousness, seizures. No history of any headache, no history of any seizures at this time. PAST MEDICAL HISTORY: History atrial of fibrillation, CAD, diabetes mellitus, history of GERD, hypertension, hyperlipidemia, history of myocardial infarction, history of CAD, CABG. MEDICATIONS: Medications prior to admission include: 1. Oxycodone mg p.o. b.i.d. 2. OxyContin 80 mg p.o. b.i.d. 3. Metformin 1000 mg b.i.d. 4. Lisinopril mg p.o. daily. 5. Glucotrol 5 mg before breakfast. 6. Catapres 0.1 p.o. b.i.d. 7. Norvasc 10 mg p.o. daily. 8. Aldactone 25 mg daily. 9. 0.25 mg subcutaneously Thursday. 10.Protonix 40 mg with breakfast. 11.Nitrostat. 12.Lopressor 100 mg b.i.d. 14.Cymbalta 60 mg b.i.d. 15.Plavix 1 mg daily. 16.Lipitor 40 mg daily. 17.Eliquis 5 mg p.o. b.i.d. ALLERGIES: NONE. FAMILY HISTORY: History of CAD, hypertension, history of blood clots, DVT. SOCIAL HISTORY: Previous history of smoking. No current smoking or alcohol intake. REVIEW OF SYSTEMS: ENT: Diminished hearing. Diminished vision. CARDIOVASCULAR SYSTEM: As mentioned earlier. RESPIRATORY SYSTEM: As mentioned earlier. GI: As mentioned earlier. : As mentioned earlier. NERVOUS SYSTEM: As mentioned earlier. ALLERGY/IMMUNOLOGY: No asthma, hayfever. MUSCULOSKELETAL: As mentioned earlier. HEMATOLOGY/ONCOLOGY: No history of anemia. ENDOCRINE: Diabetes mellitus. As mentioned earlier. CONSTITUTIONAL: As mentioned earlier. DERMATOLOGY: Negative. RHEUMATOLOGY: Negative. PSYCHIATRY: As mentioned earlier. PHYSICAL EXAMINATION: Patient alert and oriented x3. Pulse 84, blood pressure 80/45, respiration 18, temperature 98.2, pulse ox 94% on room air. HEENT: Conjunctivae normal. Oral mucosa moist. NECK: No jugular venous distention. No carotid bruit. No lymph node enlargement. CARDIOVASCULAR SYSTEM: S1, S2 muffled. RESPIRATORY SYSTEM: Breath sounds diminished at the bases. A few scattered rhonchi and crackles. ABDOMEN: Soft, non-tender. No mass palpable. LEGS: No edema. No swelling. NERVOUS SYSTEM: Higher functions as mentioned earlier. Moves all 4 limbs. LYMPHATICS: No lymph node palpable in neck, axillae or groin. NAUSEA SKIN: No ulcer, rash, bleeding. JOINTS: No active deforming arthropathy. LABS: WBC 14.2, sodium 130. Creatinine is 4.67, glucose 139. ASSESSMENT: 1. Acute renal failure with acute tubular necrosis with prerenal acute renal failure. 2. Syncope, possibly secondary to severe hypotension secondary to dehydration. Rule out sepsis. 3. Hyponatremia. 4. Increased white count. 5. Troponin 0.083. 6. History of atrial fibrillation, chronic. 7. History of coronary artery disease. 8. History of diabetes mellitus, type 2. 9. Gastroesophageal reflux disease. 10.Hypertension history. 11.Hyperlipidemia. 12.History of myocardial infarction. 13.History of coronary artery disease, coronary artery bypass grafting. 14.History of urinary tract infection with Pseudomonas aeruginosa. 15.History of ischemic cardiomyopathy. 16.History of right scrotal abscess and sepsis. 17.History of coronary artery disease, coronary artery bypass grafting, stent. 18.Remote history of nicotine dependence. 19.FULL CODE. RECOMMENDATIONS AND DISCUSSION: In this 64-year-old gentleman who presented with multiple complex medical issues, we will monitor the patient closely, continue the current medications, continue symptomatic treatment. Will initially hydrate the patient and monitor creatinine closely. The exact etiology of the hypotension is unknown at this time; most likely due to hypovolemia, but at this time we will also rule out the possibility of sepsis. Patient had a previous UTI. Recommend UA with micro and urine cultures and blood cultures also. Otherwise, hold off the blood pressure medications at this time and slowly re-introduce once the blood pressure is improving. Otherwise, the EKG showed currently normal sinus rhythm. At this time I recommend continuing the current medications and the rest of medication, including anticoagulants. We will also consult Cardiology and Nephrology. Prognosis guarded. Further recommendations to follow. PT/OT also will evaluate. orthostatic vitals. CT scan of the abdomen and pelvis has been ordered. Prognosis guarded. Further recommendations to follow. A copy of this dictation is being forwarded to Dr. Dexter Ji, who is the primary physician. MMODL / IJN: [id number] / JESSICA
[2019-11-16 19:55] LABS: Glucose,Whole Blood 122 mg/dL (75-99)
--- NOTE | 2019-11-16 20:06 | CONS ---
CONSULTATION REASON FOR CONSULTATION: Renal failure. HISTORY OF PRESENT ILLNESS: The patient is a 64-year-old male who was admitted to the hospital with complaints of weakness. He denies any prior history of kidney diseases. The patient states he felt lightheaded and also believes he passed out. He denied any chest pain, palpitations. Patient was noted to have low blood pressure with systolic blood pressure in the 50s and 60s on initial admission. He is maintained on antihypertensive medications at home, including angiotensin receptor blockers. The patient denies use of any nonsteroidal anti-inflammatory agents. He has urine output. There is no fever or chills. No diarrhea. Patient did have some nausea and vomiting. PAST MEDICAL HISTORY: Hypertension, coronary artery disease, atrial fibrillation, hypertension, hyperlipidemia, gastroesophageal reflux disease, previous history of atrial fibrillation, cardiomyopathy, history of scrotal abscess, chronic back pain. SURGICAL HISTORY: Back surgery, coronary artery bypass surgery, cardiac catheterization, coronary stent placement, left ankle ligament repair, left leg ORIF, colonoscopy. SOCIAL HISTORY: Patient is a former smoker. No history of alcohol abuse. He does use marijuana. MEDICATIONS: Medications prior to admission included Cymbalta, OxyContin, Plavix, Protonix, Eliquis, Lipitor, Lasix, insulin, Cozaar, Lopressor, Nitrostat, Aldactone, Norvasc. ALLERGIES: NONE. REVIEW OF SYSTEMS: As per HPI. Other systems negative. PHYSICAL EXAMINATION: Patient is comfortable, awake, alert, oriented x3, not in any acute distress. Blood pressure was 106/61, heart rate 93 per minute. He is afebrile. EXAMINATION OF THE HEART: S1 and S2. EXAMINATION OF LUNGS: Bilateral breath sounds are heard. ABDOMEN: Soft, non-tender. Examination of lower extremities shows no evidence of edema. MACHINE GRAINER exam is grossly intact. LABS: Labs show sodium 132, potassium 3.3, chloride 102. CO2 is 18, BUN 53, creatinine 3.8. Troponin 0.064. UA is not available. ASSESSMENT: 1. Acute kidney injury secondary to hypotension, hypoperfusion. Renal function is improving. Continue with IV fluids. Continue to hold off on antihypertensive medications. 2. Hypokalemia associated with gastrointestinal fluid loss, maintained on Aldactone. Replace with oral potassium. 3. Hypertension with blood pressure currently low. Hold off on all antihypertensive medications. 4. Coronary artery disease with history of coronary artery bypass surgery, currently stable. Troponin mildly elevated. Continue to monitor. 5. Gastroesophageal reflux disease. 6. Type 2 diabetes, currently maintained on insulin. 7. History of atrial fibrillation, maintained on Eliquis. PLAN: Continue IV fluids. Check urinalysis. Check ultrasound of the kidneys. Repeat labs in a.m. Hold off on PRAMOD inhibitor/angiotensin receptor blockers. Thank you for this consultation. Will continue to follow the patient with you during his hospitalization. MMODL / IJN: [id number] /
[2019-11-16 20:38] LABS: Appearance,Urine Clear (Clear); Bilirubin,Urine Negative (Negative); Blood,Urine Negative (Negative); Color,Urine Light Yellow; Glucose,Urine (UA) Negative (Negative); Ketones,Urine Negative (Negative); Leukocyte Esterase,Urine Negative (Negative); Nitrite,Urine Negative (Negative); Protein,Urine Negative (Negative); Specific Gravity,Urine 1.007 (1.001-1.035); Urobilinogen,Urine <2.0 mg/dL (<2.0)
[2019-11-16] MEDS: SENNOSIDES-DOCUSATE SODIUM 1 EACH TAB PO SCH (20:48)
[2019-11-16] MEDS: METOPROLOL TARTRATE 50 MG TAB PO SCH (20:48)
[2019-11-16] MEDS: INSULIN DETEMIR (LEVEMIR) 100 UNIT/ML SYR SQ SCH (20:48)
[2019-11-17] MEDS: SODIUM CHLORIDE 0.9% 1,000 ML IV SCH ×2 (06:04→15:23)
[2019-11-17 06:11] LABS: Glucose,Whole Blood 92 mg/dL (75-99)
[2019-11-17] MEDS: INSULIN ASPART (NovoLOG) 100 UNIT/ML VIAL SQ SCH ×4 (06:18→20:12)
[2019-11-17] MEDS: PANTOPRAZOLE 40 MG TABLET PO SCH (06:20)
[2019-11-17 06:58] LABS: Anisocytosis Slight; Basophils % (A) 0 %; Eosinophils # (A) 0.1 k/uL (0-0.7); Eosinophils % (A) 1 %; HCT 40.8 % (39.0-53.0); HGB 12.7 gm/dL (13.0-17.5); Lymphocytes # (A) 1.8 k/uL (1.0-4.8); Lymphocytes % (A) 15 %; MCH 26.5 pg (25.0-35.0); MCHC 31.1 g/dL (31.0-37.0); MCV 85.1 fL (80.0-100.0); Mean Platelet Volume 6.7; Monocytes # (A) 0.9 k/uL (0-1.0); Monocytes % (A) 7 %; Neutrophils # (A) 8.8 k/uL (1.3-7.7); Neutrophils % (A) 75 %; Platelet Count 350 k/uL (150-450); RBC 4.79 m/uL (4.30-5.90); RDW 16.1 % (11.5-15.5); WBC 11.8 k/uL (3.8-10.6)
[2019-11-17 07:18] LABS: Calcium 8.6 mg/dL (8.4-10.2); Potassium 2.9 mmol/L (3.5-5.1)
[2019-11-17] MEDS: ONDANSETRON 4 MG/2 ML VIAL IVP PRN (08:40)
[2019-11-17] MEDS: METOPROLOL TARTRATE 50 MG TAB PO SCH ×2 (08:41→20:12)
[2019-11-17] MEDS: CLOPIDOGREL 75 MG TAB PO SCH (08:41)
[2019-11-17] MEDS: APIXABAN 5 MG TAB PO SCH ×2 (08:41→20:12)
[2019-11-17] MEDS: DULoxetine HCL 60 MG CAPSULE.DR PO SCH (08:41)
[2019-11-17] MEDS: ATORVASTATIN 40 MG TAB PO SCH (08:43)
[2019-11-17] MEDS: oxyCODONE ER 80 MG TAB.ER.12H PO SCH ×2 (08:43→20:12)
[2019-11-17] MEDS ORDERED: POTASSIUM CHLORIDE ER 20 MEQ TAB.ER PO STA (09:36)
[2019-11-17 11:48] LABS: Glucose,Whole Blood 109 mg/dL (75-99)
--- NOTE | 2019-11-17 15:16 | PN ---
PROGRESS NOTE DATE OF SERVICE: 11/17/2019 This 64-year-old gentleman was admitted with dizziness and renal failure is being closely monitored. Patient also had hydronephrosis. The abdominal and pelvis CT scan showed new mild bilateral right greater than left hydronephrosis. No obstruction or stone was discovered. Patient being closely monitored. Abdominal bladder ultrasound was also done which was reviewed. Past medical history reviewed. REVIEW OF SYSTEMS: CARDIOVASCULAR SYSTEM: No angina or palpitations. RESPIRATION: As mentioned earlier. GI as mentioned earlier. : As mentioned. NERVOUS SYSTEM: No numbness or weakness. CURRENT MEDICATIONS: Reviewed and include: 1. Tylenol p.r.n. 2. Sheldon 5 mg q.6 p.r.n. 3. Xanax 0.5 t.i.d. 4. Eliquis 5 mg p.o. b.i.d. 5. Lipitor 40 mg p.o. daily. 6. Plavix 75 mg. 7. Cymbalta 60 mg p.o. daily. 8. Dilaudid 0.5 mg q.6h p.r.n. 9. Levemir 25 units subcu q.h.s. 10.Lopressor 50 mg p.o. b.i.d. 11.Narcan 0.2 q.2 p.r.n. 12.Nitrostat 0.4 mg sublingual p.r.n. 13.Zofran 4 mg IV q.8. 14.Oxycodone. 15.Senokot-S. PHYSICAL EXAM: Patient is alert, oriented x3. Pulse 60, blood pressure 155/82, respirations 16, temperature 97.7, pulse ox 98% on room air. HEENT: Conjunctivae normal. Oral mucosa moist. NECK is no jugular venous distention. No carotid bruit. No lymph node enlargement. CARDIOVASCULAR: S1, S2 muffled. RESPIRATION: Breath sounds diminished in the bases. Scattered rhonchi and crackles. ABDOMEN: Soft, nontender. No mass palpable. LEGS no edema NERVOUS SYSTEM: Higher functions as mentioned earlier. Moves all 4 limbs. No focal or motor deficits. LYMPHATICS: No lymph nodes palpable in the neck, axillae or groin. SKIN: No ulcer, rash, bleeding. JOINTS: No active deforming arthropathy. LABS: At this time shows WBC 11.2, hemoglobin 12.7, sodium 130, potassium 2.8, creatinine is 1.44. ASSESSMENT: 1. Acute renal failure with acute tubular necrosis with prerenal acute renal failure as well as postrenal renal failure. 2. Bilateral hydronephrosis in the CT scan. 3. Syncope, possibly secondary to severe orthostatic hypotension secondary to dehydration. 4. Sepsis ruled out. 5. Hyponatremia. 6. Severe hypokalemia. 7. Increased WBC. 8. Troponin 0.083. 9. History of atrial fibrillation chronic. 10.History of coronary artery disease. 11.History of diabetes type 2. 12.Gastroesophageal reflux disease. 13.Hypertension history. 14.History of myocardial infarction. 15.History of hyperlipidemia. 16.History of coronary artery disease, coronary artery bypass grafting. 17.History of urinary tract infection with Pseudomonas aeruginosa. 18.History of ischemic cardiomyopathy. 19.History of right scrotal abscess and sepsis. 20.History of coronary artery disease, coronary artery bypass grafting stent. 21.Remote history of nicotine dependence. 22.FULL CODE. RECOMMENDATIONS AND DISCUSSION: Recommend to continue current medications, continue with monitoring, and symptomatic treatment. Otherwise, at this time, I recommend monitor creatinine closely. Cut down the IV is to 75 mL/hour. Nephrology evaluation. Urology evaluation possibly as an outpatient. Otherwise, we will continue to monitor. Potassium supplementation and repeat potassium. Guarded prognosis because of multiple complex medical issues. Further recommendations to follow. We will repeat the raven kebede. MMODL / IJN: [id number] /
--- NOTE | 2019-11-17 17:05 | PN ---
PROGRESS NOTE Patient is seen for followup for acute kidney injury. Renal function has been improving. Serum creatinine is down to 1.4. Patient denies any significant diarrhea, nausea or vomiting. PHYSICAL EXAMINATION: On examination today, blood pressure was 133/76, heart rate 77 per minute. Patient is afebrile. EXAMINATION OF THE HEART: S1 and S2. EXAMINATION OF LUNGS: Bilateral breath sounds are heard. ABDOMEN: Soft, non-tender. Examination of lower extremities shows no evidence of edema. TAXI CAB DRIVER exam is grossly intact. LABS: Labs show sodium 135, potassium 2.9, BUN 27, creatinine 1.4, hemoglobin 12.7 g/dL. UA is completely benign. ASSESSMENT: 1. Acute kidney injury, mostly prerenal, associated with volume depletion and hypotension, hypoperfusion, currently significantly improved. 2. Hypokalemia associated with gastrointestinal fluid loss. Will supplement. 3. Volume depletion, now improved. 4. Hypertension. Blood pressure had been low. Antihypertensive medications are currently on hold. 5. History of atrial fibrillation, maintained on anticoagulation in the form of Eliquis. Rate is controlled. 6. Coronary artery disease with history of coronary artery bypass surgery, mildly elevated troponin. PLAN: Replace potassium. Patient can likely be discharged tomorrow. He can resume Norvasc on his antihypertensive regimen and we can add the Lopressor if blood pressure remains elevated. Clonidine would be the last one to resume if needed. MMODL / IJN: [id number] /
[2019-11-17 17:30] LABS: Glucose,Whole Blood 145 mg/dL (75-99)
[2019-11-17 18:18] LABS: Potassium 3.4 mmol/L (3.5-5.1)
[2019-11-17 20:06] LABS: Glucose,Whole Blood 149 mg/dL (75-99)
[2019-11-17] MEDS: SENNOSIDES-DOCUSATE SODIUM 1 EACH TAB PO SCH (20:12)
[2019-11-17] MEDS: INSULIN DETEMIR (LEVEMIR) 100 UNIT/ML SYR SQ SCH (20:57)
[2019-11-18 03:19] LABS: Glucose,Whole Blood 78 mg/dL (75-99)
[2019-11-18 05:53] VITALS: TEMP 97.9
[2019-11-18 07:09] LABS: Glucose,Whole Blood 155 mg/dL (75-99)
[2019-11-18] MEDS: CLOPIDOGREL 75 MG TAB PO SCH (08:03)
[2019-11-18] MEDS: METOPROLOL TARTRATE 50 MG TAB PO SCH (08:03)
[2019-11-18] MEDS: DULoxetine HCL 60 MG CAPSULE.DR PO SCH (08:03)
[2019-11-18] MEDS: oxyCODONE ER 80 MG TAB.ER.12H PO SCH (08:03)
[2019-11-18] MEDS: ATORVASTATIN 40 MG TAB PO SCH (08:03)
[2019-11-18] MEDS: PANTOPRAZOLE 40 MG TABLET PO SCH (08:03)
[2019-11-18] MEDS: APIXABAN 5 MG TAB PO SCH (08:03)
[2019-11-18] MEDS: INSULIN ASPART (NovoLOG) 100 UNIT/ML VIAL SQ SCH ×2 (08:04→13:11)
[2019-11-18 08:24] LABS: Anisocytosis Slight; Basophils # (A) 0.1 k/uL (0-0.2); Basophils % (A) 0 %; Eosinophils # (A) 0.1 k/uL (0-0.7); Eosinophils % (A) 1 %; HCT 44.1 % (39.0-53.0); HGB 13.9 gm/dL (13.0-17.5); Lymphocytes # (A) 1.6 k/uL (1.0-4.8); Lymphocytes % (A) 14 %; MCH 27.3 pg (25.0-35.0); MCHC 31.6 g/dL (31.0-37.0); MCV 86.4 fL (80.0-100.0); Monocytes # (A) 0.8 k/uL (0-1.0); Monocytes % (A) 7 %; Neutrophils # (A) 8.9 k/uL (1.3-7.7); Neutrophils % (A) 76 %; Platelet Count 381 k/uL (150-450); RDW 16.3 % (11.5-15.5); WBC 11.7 k/uL (3.8-10.6)
[2019-11-18] MEDS: SODIUM CHLORIDE 0.9% 1,000 ML IV SCH ×2 (08:29→12:19)
[2019-11-18 08:51] LABS: African American GFR (CKD) >90 (>60 ml/min/1.73 sqM); Anion Gap 11 mmol/L; Blood Urea Nitrogen 14 mg/dL (9-20); Calcium 8.7 mg/dL (8.4-10.2); Carbon Dioxide 25 mmol/L (22-30); Chloride 100 mmol/L (98-107); Glucose 148 mg/dL (74-99); Non-African American GFR(CKD) 85 (>60 ml/min/1.73 sqM); Potassium 3.5 mmol/L (3.5-5.1); Sodium 136 mmol/L (137-145)
[2019-11-18 11:29] LABS: Glucose,Whole Blood 160 mg/dL (75-99)
[2019-11-18 13:54] VITALS: BP 149/79; PULSE 70; RESP 16
--- NOTE | 2019-11-18 17:22 | PN ---
PROGRESS NOTE Patient is seen for followup for acute kidney injury. His renal function has improved significantly, with serum creatinine down to 0.96. Patient is wants to go home today. PHYSICAL EXAMINATION: Blood pressure was 149/79, heart rate 70 per minute. He is afebrile. Examination shows there is no evidence of edema. Abdomen is soft. Patient is euvolemic. LABS: Labs show sodium 136, potassium 3.5, chloride 100, BUN of 14, serum creatinine 0.96, hemoglobin 13.9 g/dL. ASSESSMENT: 1. Acute kidney injury secondary to hypotension and volume depletion, now resolved. 2. Hypotension, currently improved. Patient is advised to monitor his blood pressure at home and hold or decrease his Lopressor if blood pressure remains low. Patient is also maintained on Norvasc at home. Follow up with primary care physician in 1- 2 weeks post discharge. 3. Hypokalemia, status post replacement. PLAN: Follow up as outpatient with PCP. Monitor blood pressure at home and hold Norvasc and Lopressor if blood pressure is less than 115 mmHg systolic. MMODL / IJN: [id number] /
--- NOTE | 2019-11-23 09:13 | P.DS ---
Providers Date of admission: 11/15/19 22:15 Expected date of discharge: 11/18/19 Attending physician: Gustabo Bo MD Consults: 11/15/19 22:16 Consult Physician Routine Consulting Provider: Clari Back Consult Reason/Comments: Acute kidney injury Do you want consulting provider notified?: Yes Primary care physician: [facility] Course: 64-year-old male history diabetes heart disease bypass surgery who is brought in by EMS because of dizziness and passing out. He states that he was dizzy lightheaded and found himself on the floor he believes he may have been out for around 30 seconds. He complains no particular pain other than he believes is knees have banged up a bit. EMS brought him and he was noted have a blood pressure of about 70 systolic. He denies any chest pain fevers chills. He states she's not been able eat or drink last couple days because of persistent nausea and he vomits when he tries to drink fluids. He denies any abdominal pain no diarrhea no other symptoms nephrology was consulted and patient was treated with IVF which improved renal function; BP meds were adjusted and patient was recommended follow up with urology as out patient Patient Condition at Discharge: Fair Plan - Discharge Summary Discharge Rx Participant: No New Discharge Prescriptions: New DULoxetine HCL [Cymbalta] 60 mg PO DAILY capsule. Apixaban [Eliquis] 5 mg PO BID tab Continue oxyCODONE ER [OxyCONTIN] 80 mg PO BID tab.er.12h Pantoprazole [Protonix] 40 mg PO AC-BRKFST #30 tablet. oxyCODONE HCL [oxyCODONE HCL ER] 15 mg PO Q12H Spironolactone [Aldactone] 25 mg PO DAILY #30 tab amLODIPine [Norvasc] 10 mg PO DAILY #60 tab Nitroglycerin Sl Tabs [Nitrostat] 0.4 mg SUBLINGUAL Q5M PRN tab PRN Reason: Chest Pain Insulin Glargine,Hum.rec.anlog [Basaglar Kwikpen U-100] 25 unit SQ HS #0 Metoprolol Tartrate [Lopressor] 100 mg PO BID #120 tab Clopidogrel [Plavix] 75 mg PO DAILY #30 tab Atorvastatin [Lipitor] 40 mg PO DAILY #30 tab Apixaban [Eliquis] 5 mg PO BID #60 tab DULoxetine HCL [Cymbalta] 60 mg PO BID glipiZIDE [Glucotrol] 5 mg PO AC-BRKFST metFORMIN HCL 1,000 mg PO BID Semaglutide [Ozempic] 0.25 mg SQ WE Discontinued cloNIDine HCL [Catapres] 0.1 mg PO BID lisinopriL 30 mg PO DAILY Discharge Medication List oxyCODONE ER [OxyCONTIN] 80 mg PO BID tab.er.12h 08/15/19 [Rx] Pantoprazole [Protonix] 40 [facility] tablet. 09/01/19 [Rx] oxyCODONE HCL [oxyCODONE HCL ER] 15 mg PO Q12H 09/16/19 [History] Apixaban [Eliquis] 5 mg PO BID #60 tab 10/24/19 [Rx] Atorvastatin [Lipitor] 40 mg PO DAILY #30 tab 10/24/19 [Rx] Clopidogrel [Plavix] 75 mg PO DAILY #30 tab 10/24/19 [Rx] Insulin Glargine,Hum.rec.anlog [Basaglar Kwikpen U-100] 25 unit SQ HS #0 10/24/19 [Rx] Metoprolol Tartrate [Lopressor] 100 mg PO BID #120 tab 10/24/19 [Rx] Nitroglycerin Sl Tabs [Nitrostat] 0.4 mg SUBLINGUAL Q5M PRN tab 10/24/19 [Rx] Spironolactone [Aldactone] 25 mg PO DAILY #30 tab 10/24/19 [Rx] amLODIPine [Norvasc] 10 mg PO DAILY #60 tab 10/24/19 [Rx] DULoxetine HCL [Cymbalta] 60 mg PO BID 11/16/19 [History] Semaglutide [Ozempic] 0.25 mg SQ WE 11/16/19 [History] glipiZIDE [Glucotrol] 5 mg PO AC-BRKFST 11/16/19 [History] metFORMIN HCL 1,000 mg PO BID 11/16/19 [History] Apixaban [Eliquis] 5 mg PO BID tab 11/18/19 [Rx] DULoxetine HCL [Cymbalta] 60 mg PO DAILY capsule. 11/18/19 [Rx] Follow up Appointment(s)/Referral(s): Kurt Jimenez MD [Medical Doctor] - 11/22/19 (Appointment made prior to admission.) Dexter Ji DO [Primary Care Provider] - 1-2 days (Office closed at time of discharge please call upon discharge and you can leave a message for the office to set you up with your choice of a telehealth visit or a in office visit) Patient Instructions/Handouts: Acute Kidney Injury (DC), Syncope (DC) Activity/Diet/Wound Care/Special Instructions: Diabetic Diet. Activity as tolerated. Blood Sugar checks before meals and at bedtime. Discharge Disposition: HOME SELF-CARE
== END 2019-11-18 14:55 | disposition home or self-care (01) | DRG 683 ==
LOC: EC 19:27 → 3SCARD 22:15 → 5NMEDONC 11-17 12:02
PROVIDERS: ADMIT Internal Medicine; ATTEND Internal Medicine
DX: N17.0 Acute kidney failure with tubular necrosis (principal); I48.20 Chronic atrial fibrillation, unspecified; E87.1 Hypo-osmolality and hyponatremia; Z20.828 Contact with and (suspected) exposure to other viral communicable diseases; N13.30 Unspecified hydronephrosis; I95.9 Hypotension, unspecified; E11.9 Type 2 diabetes mellitus without complications; Z79.4 Long term (current) use of insulin; E86.0 Dehydration; I25.10 Atherosclerotic heart disease of native coronary artery without angina pectoris; K21.9 Gastro-esophageal reflux disease without esophagitis; I25.2 Old myocardial infarction; I10 Essential (primary) hypertension; E78.5 Hyperlipidemia, unspecified; I25.5 Ischemic cardiomyopathy; G89.29 Other chronic pain; M54.5 Low back pain; R79.89 Other specified abnormal findings of blood chemistry; H91.90 Unspecified hearing loss, unspecified ear; H54.7 Unspecified visual loss; E86.1 Hypovolemia; R11.2 Nausea with vomiting, unspecified; E87.6 Hypokalemia; W19.XXXA Unspecified fall, initial encounter; Z79.01 Long term (current) use of anticoagulants; Z79.02 Long term (current) use of antithrombotics/antiplatelets; Z79.899 Other long term (current) drug therapy; Z87.440 Personal history of urinary (tract) infections; Z86.19 Personal history of other infectious and parasitic diseases; Z95.5 Presence of coronary angioplasty implant and graft; Z95.1 Presence of aortocoronary bypass graft; Z98.890 Other specified postprocedural states; Z96.7 Presence of other bone and tendon implants; Z87.891 Personal history of nicotine dependence; Z82.49 Family history of ischemic heart disease and other diseases of the circulatory system; Z83.3 Family history of diabetes mellitus
CPT/HCPCS: 36415; 71045; 74176; 76770; 80048; 80051; 80053; 81003; 82550; 83735; 84484; 85025; 87635; 93005; 96360; 96361; 99285

== ENCOUNTER 2020-03-01 06:08 | Inpatient (IN) | payer MEDICARE, OTHER ==
[2020-03-01] MEDS ORDERED: ONDANSETRON 4 MG/2 ML VIAL IVP STA (06:29)
[2020-03-01] MEDS ORDERED: SODIUM CHLORIDE 0.9% 500 ML 500 ML IV STA ×2 (06:30→08:42)
[2020-03-01 06:42] LABS: Appearance,Urine Clear (Clear); Bilirubin,Urine Negative (Negative); Blood,Urine Negative (Negative); Color,Urine Colorless; Glucose,Urine (UA) 4+ (Negative); Ketones,Urine Trace (Negative); Leukocyte Esterase,Urine Negative (Negative); Nitrite,Urine Negative (Negative); Protein,Urine 1+ (Negative); RBC,Urine 1 /hpf (0-5); Specific Gravity,Urine 1.012 (1.001-1.035); Squamous Epithelial Cell,Urine <1 /hpf (0-4); Urobilinogen,Urine <2.0 mg/dL (<2.0); WBC,Urine 1 /hpf (0-5)
[2020-03-01 06:44] LABS: Basophils # (A) 0.1 k/uL (0-0.2); Basophils % (A) 1 %; Eosinophils # (A) 0.3 k/uL (0-0.7); Eosinophils % (A) 2 %; HCT 46.5 % (39.0-53.0); HGB 15.9 gm/dL (13.0-17.5); Lymphocytes # (A) 1.9 k/uL (1.0-4.8); Lymphocytes % (A) 12 %; MCH 32.1 pg (25.0-35.0); MCHC 34.2 g/dL (31.0-37.0); MCV 93.8 fL (80.0-100.0); Mean Platelet Volume 6.7; Monocytes # (A) 0.9 k/uL (0-1.0); Monocytes % (A) 6 %; Neutrophils # (A) 12.8 k/uL (1.3-7.7); Neutrophils % (A) 80 %; Platelet Count 495 k/uL (150-450); RBC 4.96 m/uL (4.30-5.90); RDW 15.2 % (11.5-15.5)
[2020-03-01 06:51] LABS: ALT 20 U/L (4-49); AST 21 U/L (17-59); African American GFR (CKD) >90 (>60 ml/min/1.73 sqM); Albumin 4.8 g/dL (3.5-5.0); Alkaline Phosphatase 172 U/L (38-126); Anion Gap 17 mmol/L; Blood Urea Nitrogen 28 mg/dL (9-20); Carbon Dioxide 21 mmol/L (22-30); Chloride 95 mmol/L (98-107); Glucose 430 mg/dL (74-99); Magnesium 1.7 mg/dL (1.6-2.3); Non-African American GFR(CKD) >90 (>60 ml/min/1.73 sqM); Potassium 3.7 mmol/L (3.5-5.1); Sodium 133 mmol/L (137-145); Total Bilirubin 0.5 mg/dL (0.2-1.3); Total Protein 8.1 g/dL (6.3-8.2)
--- NOTE | 2020-03-01 06:51 | ED ---
General Adult HPI <Josias Rocha - Last Filed: 03/01/20 08:37> - General Source: patient, RN notes reviewed Mode of arrival: EMS Limitations: no limitations <Cornelius Harrell - Last Filed: 03/01/20 08:48> - General Chief complaint: Chest Pain Stated complaint: Chest Pain Time Seen by Provider: 03/01/20 06:15 - History of Present Illness Initial comments: 64-year-old male with a past medical history of atrial fibrillation, GERD, coronary artery disease with CABG 7 months ago, diabetes, hyperlipidemia, hypertension, NH presents to the emergency room for a chief complaint of chest pain. Patient reports that he had chest pain at home lasting approximately 30 minutes. Patient was given 2 nitro by EMS and this did resolve. He is now complaining of nausea after the nitro. He denies any chest pain at this time. Denies shortness of breath.Patient has no other complaints at this time including shortness of breath, abdominal pain, headache, or visual changes. (Cornelius Harrell) - Related Data Home Medications Medication Instructions Recorded Confirmed oxyCODONE HCL [oxyCODONE HCL ER] 15 mg PO Q12H 09/16/19 11/16/19 DULoxetine HCL [Cymbalta] 60 mg PO BID 11/16/19 11/16/19 Semaglutide [Ozempic] 0.25 mg SQ WE 11/16/19 11/16/19 glipiZIDE [Glucotrol] 5 mg PO AC-BRKFST 11/16/19 11/16/19 metFORMIN HCL 1,000 mg PO BID 11/16/19 11/16/19 Previous Rx's Medication Instructions Recorded oxyCODONE ER [OxyCONTIN] 80 mg PO BID tab.er.12h 08/15/19 Pantoprazole [Protonix] 40 mg PO AC-BRKFST #30 tablet. 09/01/19 Apixaban [Eliquis] 5 mg PO BID #60 tab 10/24/19 Atorvastatin [Lipitor] 40 mg PO DAILY #30 tab 10/24/19 Clopidogrel [Plavix] 75 mg PO DAILY #30 tab 10/24/19 Insulin Glargine,Hum.rec.anlog 25 unit SQ HS #0 10/24/19 [Basaglar Kwikpen U-100] Metoprolol Tartrate [Lopressor] 100 mg PO BID #120 tab 10/24/19 Nitroglycerin Sl Tabs [Nitrostat] 0.4 mg SUBLINGUAL Q5M PRN tab 10/24/19 Spironolactone [Aldactone] 25 mg PO DAILY #30 tab 10/24/19 amLODIPine [Norvasc] 10 mg PO DAILY #60 tab 10/24/19 Apixaban [Eliquis] 5 mg PO BID tab 11/18/19 DULoxetine HCL [Cymbalta] 60 mg PO DAILY capsule. 11/18/19 Allergies Allergy/AdvReac Type Severity Reaction Status Date / Time No Known Allergies Allergy Verified 11/15/19 19:32 Review of Systems ROS Other: All systems not noted in ROS Statement are negative. <Josias Rocha - Last Filed: 03/01/20 08:37> ROS Other: All systems not noted in ROS Statement are negative. <Cornelius Harrell - Last Filed: 03/01/20 08:48> ROS Statement: Those systems with pertinent positive or pertinent negative responses have been documented in the HPI. Past Medical History Past Medical History: Atrial Fibrillation, Coronary Artery Disease (CAD), Chest Pain / Angina, Diabetes Mellitus, GERD/Reflux, Hyperlipidemia, Hypertension, Myocardial Infarction (NH) Additional Past Medical History / Comment(s): Pt had CABG 07/2019 and had post op Afib/UTI with pseudomonas aeruginosa, ischemic cardiomyopathy, IDDM type II, past R scrotal abscess with sepsis, chronic lower back pain and bilateral leg pain, Last Myocardial Infarction Date:: 03/20/15 History of Any Multi-Drug Resistant Organisms: None Reported Past Surgical History: Back Surgery, Coronary Bypass/CABG, Heart Catheterization, Heart Catheterization With Stent, Orthopedic Surgery Additional Past Surgical History / Comment(s): 08/23/2019 CABG 3 vessels, PCI with total of 5 stents, L ankle ligament repair, R leg ORIF, low back surgery, colonoscopy. Past Anesthesia/Blood Transfusion Reactions: No Reported Reaction Additional Past Anesthesia/Blood Transfusion Reaction / Comment(s): Pt has received blood in past without reaction. Date of Last Stent Placement:: 02/2015 Past Psychological History: No Psychological Hx Reported Smoking Status: Former smoker Past Alcohol Use History: None Reported Past Drug Use History: Marijuana - Past Family History Sister(s) Family Medical History: Coronary Artery Disease (CAD), Hypertension Father Family Medical History: Coronary Artery Disease (CAD), Diabetes Mellitus, Deep Vein Thrombosis (DVT), Hypertension Additional Family Medical History / Comment(s): Father at age 58yrs. He of blood clot from leg injury that went to his heart. <Cornelius Harrell P - Last Filed: 03/01/20 08:48> General Exam Limitations: no limitations General appearance: alert, in no apparent distress Head exam: Present: atraumatic, normocephalic, normal inspection Eye exam: Present: normal appearance, PERRL, EOMI. Absent: scleral icterus, conjunctival injection, periorbital swelling ENT exam: Present: normal exam, mucous membranes moist Neck exam: Present: normal inspection, full ROM. Absent: tenderness, meningismus, lymphadenopathy Respiratory exam: Present: normal lung sounds bilaterally. Absent: respiratory distress, wheezes, rales, rhonchi, stridor Cardiovascular Exam: Present: regular rate, normal rhythm, normal heart sounds. Absent: systolic murmur, diastolic murmur, rubs, gallop, clicks GI/Abdominal exam: Present: soft, normal bowel sounds. Absent: distended, tenderness, guarding, rebound, rigid <Cornelius Harrell P - Last Filed: 03/01/20 08:48> Course <Josias Rocha - Last Filed: 03/01/20 08:37> <Cornelius Harrell P - Last Filed: 03/01/20 08:48> Vital Signs 03/01/20 03/01/20 03/01/20 06:09 06:17 06:41 Temperature 98.3 F Pulse Rate 72 138 H Pulse Rate [ 140 H Urgent Care Physician Assistant ] Respiratory 20 24 Rate Blood Pressure 190/120 186/109 O2 Sat by Pulse 100 100 Oximetry 03/01/20 03/01/20 07:54 08:18 Temperature Pulse Rate 152 H 116 H Pulse Rate [ Urgent Care Physician Assistant ] Respiratory 22 22 Rate Blood Pressure 173/124 183/113 O2 Sat by Pulse 95 100 Oximetry - Reevaluation(s) Reevaluation #1: 03/01/20 08:21 Patient was reevaluated by myself, Dr. Rocha. Patient reexamined. I agree with PA findings. This includes diagnostic agitation and treatment plan. Patient s tates chest discomfort has resolved only complains of continued nausea. Patient has no complex tachycardia with rate varying between 1:30 and 170. When rate was slow down there is appearance of P waves. Case was discussed with Dr. Hua who will evaluate patient soon and is agreeable with amiodarone until that time. 03/01/20 08:37 Case also discussed with Dr. Almanza, who will admit for Dr. baird (Josias Rocha) I did attempt to obtain an x-ray of the chest several times. initially I was asked by xray techs if they could do one view which I did say okay to however it wasn't done for 30 minutes. Called and tech said they would do the x-ray now. They went to do an x-ray patient was vomiting so they could not complete this. (Cornelius Harrell) Reevaluation #2: 03/01/20 08:48 Cardiology is at bedside (Cornelius Harrell) EKG Findings - EKG Comments: EKG Findings:: 0618 Sinus tachycardia, ventricular rate 139, SC interval 96, QRS duration 100, QTC 511. 0713 sinus tachycardia, ventricular rate 133, SC interval 156, QTc 443 <Cornelius Harrell - Last Filed: 03/01/20 08:48> Procedures <Josisa Rocha - Last Filed: 03/01/20 08:37> - Procedures Initial comment: Patient given chemical cardioversion with adenosine: 6 mg followed by 12 mg per there was slowing down of heart rate however heart rate did have P waves followed by QRS without evidence of definitive A. fib. (Josias Rocha) Medical Decision Making - Lab Data Result diagrams: 03/01/20 06:32 03/01/20 06:32 <Josias Rocha - Last Filed: 03/01/20 08:37> - Lab Data Result diagrams: 03/01/20 06:32 03/01/20 06:32 <Cornelius Harrell - Last Filed: 03/01/20 08:48> - Medical Decision Making Patient presents initially with a heart rate of 140. Patient did call EMS for chest pain however this resolved prior to arrival. Patient's only complaint in the ER was nausea. Patient's heart rate oscillated from low 100s to 190s at times. It did not stay in the 190s for long. Seemed to be 130 to 140 more consistently. Multiple EKGs were obtained. Narrow complex tachycardia. Patient does have leukocytosis unknown significance. The CMP does reveal dehydration. Patient does have hyperglycemia of 430 which did improve to 367 after a 500 mL bolus. Patient has not been taking his medications for the past 3 days according to his son. Urinalysis shows trace ketones of her acetone is negative. Patient was given adenosine and when he was slowed he did have a no rmal sinus beat. Adenosine was initiated. (Cornelius Harrell) - Lab Data Lab Results 03/01/20 03/01/20 03/01/20 Range/Units 06:32 06:32 06:32 WBC 16.0 H (3.8-10.6) k/uL RBC 4.96 (4.30-5.90) m/uL Hgb 15.9 (13.0-17.5) gm/dL Hct 46.5 (39.0-53.0) % MCV 93.8 (80.0-100.0) fL MCH 32.1 (25.0-35.0) pg MCHC 34.2 (31.0-37.0) g/dL RDW 15.2 (11.5-15.5) % Plt Count 495 H (150-450) k/uL MPV 6.7 Neutrophils % 80 % Lymphocytes % 12 % Monocytes % 6 % Eosinophils % 2 % Basophils % 1 % Neutrophils # 12.8 H (1.3-7.7) k/uL Lymphocytes # 1.9 (1.0-4.8) k/uL Monocytes # 0.9 (0-1.0) k/uL Eosinophils # 0.3 (0-0.7) k/uL Basophils # 0.1 (0-0.2) k/uL PT 9.4 (9.0-12.0) sec INR 0.9 (<1.2) APTT 25.5 (22.0-30.0) sec D-Dimer 0.57 (<0.60) mg/L FEU Sodium 133 L (137-145) mmol/L Potassium 3.7 (3.5-5.1) mmol/L Chloride 95 L (98-107) mmol/L Carbon Dioxide 21 L (22-30) mmol/L Anion Gap 17 mmol/L BUN 28 H (9-20) mg/dL Creatinine 0.88 (0.66-1.25) mg/dL Est GFR (CKD-EPI)AfAm >90 (>60 ml/min/1.73 sqM) Est GFR (CKD-EPI)NonAf >90 (>60 ml/min/1.73 sqM) Glucose 430 H (74-99) mg/dL POC Glucose (mg/dL) (75-99) mg/dL POC Glu Manager Of Case Management ID Calcium 11.0 H (8.4-10.2) mg/dL Magnesium 1.7 (1.6-2.3) mg/dL Total Bilirubin 0.5 (0.2-1.3) mg/dL AST 21 (17-59) U/L ALT 20 (4-49) U/L Alkaline Phosphatase 172 H (38-126) U/L Troponin I (0.000-0.034) ng/mL Total Protein 8.1 (6.3-8.2) g/dL Albumin 4.8 (3.5-5.0) g/dL Urine Color Urine Appearance (Clear) Urine pH (5.0-8.0) Ur Specific [place] (1.001-1.035) Urine Protein (Negative) Urine Glucose (UA) (Negative) Urine Ketones (Negative) Urine Blood (Negative) Urine Nitrite (Negative) Urine Bilirubin (Negative) Urine Urobilinogen (<2.0) mg/dL Ur Leukocyte Esterase (Negative) Urine RBC (0-5) /hpf Urine WBC (0-5) /hpf Ur Squamous Epith Cells (0-4) /hpf Urine Opiates Screen (NotDetected) Ur Oxycodone Screen (NotDetected) Urine Methadone Screen (NotDetected) Ur Propoxyphene Screen (NotDetected) Ur Barbiturates Screen (NotDetected) U Tricyclic Antidepress (NotDetected) Ur Phencyclidine Scrn (NotDetected) Ur Amphetamines Screen (NotDetected) U Methamphetamines Scrn (NotDetected) U Benzodiazepines Scrn (NotDetected) Urine Cocaine Screen (NotDetected) U Marijuana (THC) Screen (NotDetected) Acetone, Qual (Negative) 03/01/20 03/01/20 03/01/20 Range/Units 06:32 06:32 07:02 WBC (3.8-10.6) k/uL RBC (4.30-5.90) m/uL Hgb (13.0-17.5) gm/dL Hct (39.0-53.0) % MCV (80.0-100.0) fL MCH (25.0-35.0) pg MCHC (31.0-37.0) g/dL RDW (11.5-15.5) % Plt Count (150-450) k/uL MPV Neutrophils % % Lymphocytes % % Monocytes % % Eosinophils % % Basophils % % Neutrophils # (1.3-7.7) k/uL Lymphocytes # (1.0-4.8) k/uL Monocytes # (0-1.0) k/uL Eosinophils # (0-0.7) k/uL Basophils # (0-0.2) k/uL PT (9.0-12.0) sec INR (<1.2) APTT (22.0-30.0) sec D-Dimer (<0.60) mg/L FEU Sodium (137-145) mmol/L Potassium (3.5-5.1) mmol/L Chloride (98-107) mmol/L Carbon Dioxide (22-30) mmol/L Anion Gap mmol/L BUN (9-20) mg/dL Creatinine (0.66-1.25) mg/dL Est GFR (CKD-EPI)AfAm (>60 ml/min/1.73 sqM) Est GFR (CKD-EPI)NonAf (>60 ml/min/1.73 sqM) Glucose (74-99) mg/dL POC Glucose (mg/dL) (75-99) mg/dL POC Glu Manager Of Case Management ID Calcium (8.4-10.2) mg/dL Magnesium (1.6-2.3) mg/dL Total Bilirubin (0.2-1.3) mg/dL AST (17-59) U/L ALT (4-49) U/L Alkaline Phosphatase (38-126) U/L Troponin I 0.014 (0.000-0.034) ng/mL Total Protein (6.3-8.2) g/dL Albumin (3.5-5.0) g/dL Urine Color Colorless Urine Appearance Clear (Clear) Urine pH 6.0 (5.0-8.0) Ur Specific [place] 1.012 (1.001-1.035) Urine Protein 1+ H (Negative) Urine Glucose (UA) 4+ H (Negative) Urine Ketones Trace H (Negative) Urine Blood Negative (Negative) Urine Nitrite Negative (Negative) Urine Bilirubin Negative (Negative) Urine Urobilinogen <2.0 (<2.0) mg/dL Ur Leukocyte Esterase Negative (Negative) Urine RBC 1 (0-5) /hpf Urine WBC 1 (0-5) /hpf Ur Squamous Epith Cells <1 (0-4) /hpf Urine Opiates Screen Not Detected (NotDetected) Ur Oxycodone Screen Detected H (NotDetected) Urine Methadone Screen Not Detected (NotDetected) Ur Propoxyphene Screen Not Detected (NotDetected) Ur Barbiturates Screen Not Detected (NotDetected) U Tricyclic Antidepress Not Detected (NotDetected) Ur Phencyclidine Scrn Not Detected (NotDetected) Ur Amphetamines Screen Not Detected (NotDetected) U Methamphetamines Scrn Not Detected (NotDetected) U Benzodiazepines Scrn Not Detected (NotDetected) Urine Cocaine Screen Not Detected (NotDetected) U Marijuana (THC) Screen Detected H (NotDetected) Acetone, Qual Negative (Negative) 03/01/20 Range/Units 08:15 WBC (3.8-10.6) k/uL RBC (4.30-5.90) m/uL Hgb (13.0-17.5) gm/dL Hct (39.0-53.0) % MCV (80.0-100.0) fL MCH (25.0-35.0) pg MCHC (31.0-37.0) g/dL RDW (11.5-15.5) % Plt Count (150-450) k/uL MPV Neutrophils % % Lymphocytes % % Monocytes % % Eosinophils % % Basophils % % Neutrophils # (1.3-7.7) k/uL Lymphocytes # (1.0-4.8) k/uL Monocytes # (0-1.0) k/uL Eosinophils # (0-0.7) k/uL Basophils # (0-0.2) k/uL PT (9.0-12.0) sec INR (<1.2) APTT (22.0-30.0) sec D-Dimer (<0.60) mg/L FEU Sodium (137-145) mmol/L Potassium (3.5-5.1) mmol/L Chloride (98-107) mmol/L Carbon Dioxide (22-30) mmol/L Anion Gap mmol/L BUN (9-20) mg/dL Creatinine (0.66-1.25) mg/dL Est GFR (CKD-EPI)AfAm (>60 ml/min/1.73 sqM) Est GFR (CKD-EPI)NonAf (>60 ml/min/1.73 sqM) Glucose (74-99) mg/dL POC Glucose (mg/dL) 367 H (75-99) mg/dL POC Glu Manager Of Case Management ID Dc Joe Calcium (8.4-10.2) mg/dL Magnesium (1.6-2.3) mg/dL Total Bilirubin (0.2-1.3) mg/dL AST (17-59) U/L ALT (4-49) U/L Alkaline Phosphatase (38-126) U/L Troponin I (0.000-0.034) ng/mL Total Protein (6.3-8.2) g/dL Albumin (3.5-5.0) g/dL Urine Color Urine Appearance (Clear) Urine pH (5.0-8.0) Ur Specific [place] (1.001-1.035) Urine Protein (Negative) Urine Glucose (UA) (Negative) Urine Ketones (Negative) Urine Blood (Negative) Urine Nitrite (Negative) Urine Bilirubin (Negative) Urine Urobilinogen (<2.0) mg/dL Ur Leukocyte Esterase (Negative) Urine RBC (0-5) /hpf Urine WBC (0-5) /hpf Ur Squamous Epith Cells (0-4) /hpf Urine Opiates Screen (NotDetected) Ur Oxycodone Screen (NotDetected) Urine Methadone Screen (NotDetected) Ur Propoxyphene Screen (NotDetected) Ur Barbiturates Screen (NotDetected) U Tricyclic Antidepress (NotDetected) Ur Phencyclidine Scrn (NotDetected) Ur Amphetamines Screen (NotDetected) U Methamphetamines Scrn (NotDetected) U Benzodiazepines Scrn (NotDetected) Urine Cocaine Screen (NotDetected) U Marijuana (THC) Screen (NotDetected) Acetone, Qual (Negative) Disposition <Josias Rocha - Last Filed: 03/01/20 08:37> Is patient prescribed a controlled substance at d/c from ED?: No <Cornelius Harrell - Last Filed: 03/01/20 08:48> Clinical Impression: Tachycardia, Hyperglycemia Disposition: ADMITTED IP TO THIS HOSP Condition: Serious Referrals: Dexter Ji DO [Primary Care Provider] - 1-2 days
[2020-03-01 06:52] LABS: Amphetamine Screen,Urine Not Detected (NotDetected); Benzodiazepines Screen,Urine Not Detected (NotDetected); Cocaine Screen,Urine Not Detected (NotDetected); Methadone Screen, Urine Not Detected (NotDetected); Opiate Screen,Urine Not Detected (NotDetected); Phencyclidine Screen,Urine Not Detected (NotDetected); Tricyclic Antidepressant,Urine Not Detected (NotDetected); Urn Cannabinoid Scrn Detected (NotDetected)
[2020-03-01 06:53] LABS: Barbiturate Screen,Urine Not Detected (NotDetected); Oxycodone Screen, Urine Detected (NotDetected)
[2020-03-01 06:54] LABS: D-Dimer 0.57 mg/L FEU (<0.60); INR 0.9 (<1.2); Partial Thromboplastin Time 25.5 sec (22.0-30.0); Prothrombin Time 9.4 sec (9.0-12.0)
[2020-03-01] MEDS ORDERED: diphenhydrAMINE 50 MG/ML 1 ML VIAL IVP STA (07:54)
[2020-03-01] MEDS: ADENOSINE 3 MG/ML 2 ML VIAL IVP STA ×2 (07:57→08:06)
[2020-03-01] MEDS ORDERED: ADENOSINE 3 MG/ML 2 ML VIAL IVP STA (08:10)
[2020-03-01 08:17] LABS: Glucose,Whole Blood 367 mg/dL (75-99)
[2020-03-01] MEDS ORDERED: INSULIN REGULAR 100 UNIT/ML VIAL IV STA (08:17)
[2020-03-01] MEDS ORDERED: DEXTROSE 5% IN WATER 100 ML with AMIODARONE 150 MG IV ONE (08:21)
[2020-03-01] MEDS ORDERED: AMIODARONE 360 MG in DEXTROSE 5% IN WATER 200 ML IV ONE ×2 (08:22)
--- NOTE | 2020-03-01 08:37 | XR ---
EXAMINATION TYPE: XR chest 1V portable DATE OF EXAM: 03/01/2020 Comparison: 11/15/2019 Clinical History: 64-year-old male Chest Pain Findings: Median sternotomy wires and post-CABG clips in the mediastinum. Heart normal size. Aorta and pulmonar y vasculature within normal limits. Mild interstitial prominence is unchanged. No consolidation or pl eural effusion. Impression: Post CABG and chronic changes. No acute process seen.
[2020-03-01] MEDS ORDERED: NALOXONE 0.4 MG/ML 1 ML VIAL IV PRN (08:39)
[2020-03-01] MEDS ORDERED: SODIUM CHLORIDE 0.9% 1,000 ML IV SCH (08:45)
[2020-03-01] MEDS ORDERED: DILTIAZEM DRIP BOLUS FROM BAG 1 MG SOLN IV ONE (08:51)
[2020-03-01] MEDS: DILTIAZEM 125 MG in SODIUM CHLORIDE 0.9% 100 ML IV SCH ×2 (09:01→19:12)
[2020-03-01] MEDS ORDERED: PROCHLORPERAZINE INJ 10 MG/2 ML VIAL IVP STA (10:18)
[2020-03-01] MEDS: MAGNESIUM SULFATE-D5W PMX 1 GM in DEXTROSE/WATER 1 100ML.BAG IVPB SCH ×2 (10:33→18:50)
[2020-03-01] MEDS ORDERED: SODIUM CHLORIDE 0.9% 500 ML 500 ML IV ONE (10:35)
--- NOTE | 2020-03-01 11:33 | P.CRDCN ---
History of Present Illness History of present illness: HISTORY OF PRESENTING ILLNESS This is a pleasant 64-year-old male past medical history significant for coraonary artery disease with PCI to RCA 2007 and again in 2014 and subsequent bypass grafting 08/16 with QUINONES-LAD, LRA-OM2, reverse SVG-PAD, ischemic cardiomyopathy, chronic systolic heart failure, hypertension, dyslipidemia, diabetes mellitus, paroxysmal atrial fibrillation and Eliquis, former nicotine depdence and marijuana use. He follows in the office with Dr. Hua. We have been asked to see in consultation for tachycardia. He presented to the hospital with symptoms of nausea, vomiting, weakness and chest pain. He is somewhat of a poor historian and vague about his history. Apparently his son was called and he stated that the patient has not taken any of his medications for possibly the last 2-3 days. The patient himself is unable to tell us why other than to say he started vomting last night. He is laying flat on the stretcher with a basin held near his mouth. He is flailing around and complaining of leg pain and twitches. EKG and telemetry tracings reviewed, His heart rates are going quite fast, up to 190 at times. It appears regular. He was given adenosine 6 mg then 12 mg and his did temporarily slow down and have some sinus beats, however his rate jumped right back up to 150's.There are discernable P-waves noted at times. Currently he denies chest pain, shortness of breath or palpitations. Chest x-ray is negative for an acute cardiopulmonary process. Laboratory data reviewed, WBC 16, hemoglobin 15.9, platelets 495, d-dimer 0.57, sodium 133, potassium 3.7, creatinine 0.88, blood glucose on arrival 430, magnesium 1.7 and troponin negative 1. Current daily cardiac medications include atorvastatin 40 mg daily, Eliquis 5 mg twice a day, Aldactone 25 mg daily, amlodipine 5 mg daily, lisinopril 30 mg daily, Plavix 75 mg daily, metoprolol 50 mg twice a day and daily potassium supplementation. His last visit with Dr. Hua in November he was advised to discontinue the Plavix and continue Eliquis and aspirin. Most recent echocardiogram obtained 06/2019 revealed impaired LV systolic revealed impaired LV systolic function with EF 40-45%, basal inferoseptal and basal inferior hyopkinetic and moderately dilated LA. REVIEW OF SYSTEMS At the time of my exam: CONSTITUTIONAL: Denies fever or chills. CARDIOVASCULAR: Denies chest pain, shortness of breath, orthopnea, PND or palpitations. RESPIRATORY: Denies cough. GASTROINTESTINAL: Complains of nausea. Denies abdominal pain, diarrhea, constipation or vomiting. MUSCULOSKELETAL: Denies myalgias. NEUROLOGIC: Denies numbness, tingling or weakness. ENDOCRINE: Denies fatigue, weight change, polydipsia or polyurina. GENITOURINARY: Denies burning, hematuria or urgency with micturation. HEMATOLOGIC: Denies history of anemia or bleeding. PHYSICAL EXAMINATION Blood pressure 150/112 heart rate 151 afebrile and maintaining oxygen saturation on room air. CONSTITUTIONAL: Appears uncomfortable and nauseated despite zofran. HEENT: Head is normocephalic. Pupils are equal, round. Sclerae anicteric. Mucous membranes of the mouth are moist. No JVD. No carotid bruit. CHEST EXAMINATION: Lungs are clear to auscultation. No chest wall tenderness is noted on palpation or with deep breathing. HEART EXAMINATION: Regular rate and rhytym, tachycardic. S1, S2 heard. No murmurs, gallops or rub. ABDOMEN: Soft, nontender. Positive bowel sounds. EXTREMITIES: 2+ peripheral pulses, no lower extremity edema and no calf tenderness. NEUROLOGIC EXAMINATION: Patient is awake, alert and oriented x3. ASSESSMENT Tachycardia, narrow complex sensitive to adenosine. Underlying sinus rhythm. Hyperglycemia Nausea and vomiting Leuckocytosis Coronary artery disease s/p bypass grafting Ischemic cardiomyopathy Chronic systolic heart failure Hypertension Dyslipidemia Paroxysmal atrial fibrillation on eliquis PLAN Initiate cardizem infusion with bolus for rate control. Give 2 grams of magnesium. Resume eliquis, amlodipine, atorvastatin, aspirin, lisinopril and lopressor as previously ordered. Repeat echocardiogram when heart rate comes down. Gabrielhter recommendations to follow based on clinical course. Thank you kindly for this consultation. Nurse Practitioner note has been reviewed, I agree with a documented findings and plan of care. Patient was seen and examined. Past Medical History Past Medical History: Atrial Fibrillation, Coronary Artery Disease (CAD), Chest Pain / Angina, Diabetes Mellitus, GERD/Reflux, Hyperlipidemia, Hypertension, Myocardial Infarction (CO) Additional Past Medical History / Comment(s): Pt had CABG 07/2019 and had post op Afib/UTI with pseudomonas aeruginosa, ischemic cardiomyopathy, IDDM type II, past R scrotal abscess with sepsis, chronic lower back pain and bilateral leg pain, Last Myocardial Infarction Date:: 03/20/15 History of Any Multi-Drug Resistant Organisms: None Reported Past Surgical History: Back Surgery, Coronary Bypass/CABG, Heart Catheterization, Heart Catheterization With Stent, Orthopedic Surgery Additional Past Surgical History / Comment(s): 08/23/2019 CABG 3 vessels, PCI with total of 5 stents, L ankle ligament repair, R leg ORIF, low back surgery, colonoscopy. Past Anesthesia/Blood Transfusion Reactions: No Reported Reaction Additional Past Anesthesia/Blood Transfusion Reaction / Comment(s): Pt has received blood in past without reaction. Date of Last Stent Placement:: 02/2015 Past Psychological History: No Psychological Hx Reported Smoking Status: Former smoker Past Alcohol Use History: None Reported Past Drug Use History: Marijuana - Past Family History Sister(s) Family Medical History: Coronary Artery Disease (CAD), Hypertension Father Family Medical History: Coronary Artery Disease (CAD), Diabetes Mellitus, Deep Vein Thrombosis (DVT), Hypertension Additional Family Medical History / Comment(s): Father at age 58yrs. He of blood clot from leg injury that went to his heart. Medications and Allergies Home Medications Medication Instructions Recorded Confirmed Type Pantoprazole [Protonix] 40 mg PO AC-BRKFST #30 tablet. 09/01/19 03/01/20 Rx Atorvastatin [Lipitor] 40 mg PO DAILY #30 tab 10/24/19 03/01/20 Rx Clopidogrel [Plavix] 75 mg PO DAILY #30 tab 10/24/19 03/01/20 Rx Nitroglycerin Sl Tabs [Nitrostat] 0.4 mg SUBLINGUAL Q5M PRN tab 10/24/19 03/01/20 Rx Spironolactone [Aldactone] 25 mg PO DAILY #30 tab 10/24/19 03/01/20 Rx DULoxetine HCL [Cymbalta] 60 mg PO BID 11/16/19 03/01/20 History Semaglutide [Ozempic] 0.25 mg SQ WE 11/16/19 03/01/20 History glipiZIDE [Glucotrol] 5 mg PO AC-BID 11/16/19 03/01/20 History metFORMIN HCL 1,000 mg PO BID 11/16/19 03/01/20 History Apixaban [Eliquis] 5 mg PO BID tab 11/18/19 03/01/20 Rx Gabapentin 300 mg PO BID 03/01/20 03/01/20 History Insulin Aspart [NovoLOG Flexpen] 10 units SQ AC-BID 03/01/20 03/01/20 History Metoprolol Tartrate [Lopressor] 50 mg PO BID 03/01/20 03/01/20 History Potassium Chloride [Klor-Con 20] 20 meq PO BID 03/01/20 03/01/20 History amLODIPine [Norvasc] 5 mg PO DAILY 03/01/20 03/01/20 History lisinopriL 30 mg PO DAILY 03/01/20 03/01/20 History oxyCODONE ER [OxyCONTIN] 80 mg PO Q12H 03/01/20 03/01/20 History oxyCODONE HCL [oxyCODONE HCL (IR)] 15 mg PO Q8H 03/01/20 03/01/20 History Allergies Allergy/AdvReac Type Severity Reaction Status Date / Time No Known Allergies Allergy Verified 03/01/20 09:06 Physical Exam Vitals: Vital Signs Temp Pulse Pulse Resp BP Pulse Ox 03/01/20 08:55 151 H 20 150/112 98 03/01/20 08:18 116 H 22 183/113 100 03/01/20 07:54 152 H 22 173/124 95 03/01/20 06:41 138 H 24 186/109 100 03/01/20 06:17 140 H 03/01/20 06:09 98.3 F 72 20 190/120 100 Intake and Output 02/29/20 03/01/20 03/01/20 22:59 06:59 14:59 Other: Weight 75.296 kg Results 03/01/20 06:32 03/01/20 06:32 Cardiac Enzymes 03/01/20 03/01/20 Range/Units 06:32 06:32 AST 21 (17-59) U/L Troponin I 0.014 (0.000-0.034) ng/mL Coagulation 03/01/20 Range/Units 06:32 PT 9.4 (9.0-12.0) sec APTT 25.5 (22.0-30.0) sec CBC 03/01/20 Range/Units 06:32 WBC 16.0 H (3.8-10.6) k/uL RBC 4.96 (4.30-5.90) m/uL Hgb 15.9 (13.0-17.5) gm/dL Hct 46.5 (39.0-53.0) % Plt Count 495 H (150-450) k/uL Comprehensive Metabolic Panel 03/01/20 Range/Units 06:32 Sodium 133 L (137-145) mmol/L Potassium 3.7 (3.5-5.1) mmol/L Chloride 95 L (98-107) mmol/L Carbon Dioxide 21 L (22-30) mmol/L BUN 28 H (9-20) mg/dL Creatinine 0.88 (0.66-1.25) mg/dL Glucose 430 H (74-99) mg/dL Calcium 11.0 H (8.4-10.2) mg/dL AST 21 (17-59) U/L ALT 20 (4-49) U/L Alkaline Phosphatase 172 H (38-126) U/L Total Protein 8.1 (6.3-8.2) g/dL Albumin 4.8 (3.5-5.0) g/dL Current Medications Generic Name Dose Route Start Last Admin Trade Name Freq PRN Reason Stop Dose Admin Sodium Chloride 1,000 mls @ 130 mls/hr 03/01/20 08:45 Saline 0.9% IV .[id number] GABBY Sodium Chloride 500 mls @ 999 mls/hr 03/01/20 08:42 Saline 0.9% IV 03/01/20 09:12 .Q31M STA Diltiazem HCl 125 mg/ Sodium 125 mls @ 10 mls/hr 03/01/20 09:00 Chloride IV .[id number] GABBY 10 MG/HR Magnesium Sulfate/Dextrose 1 100 mls @ 100 mls/hr 03/01/20 10:00 gm/ IV Solution IVPB 03/01/20 11:59 Q1H GABBY Naloxone HCl 0.2 mg 03/01/20 08:39 Naloxone 0.4 Mg/Ml 1 Ml Vial IV Q2M PRN Opioid Reversal Intake and Output 02/29/20 03/01/20 03/01/20 22:59 06:59 14:59 Other: Weight 75.296 kg 03/01/20 06:32 03/01/20 06:32
[2020-03-01] MEDS ORDERED: ONDANSETRON 4 MG/2 ML VIAL IVP PRN (11:50)
--- NOTE | 2020-03-01 12:00 | P.HPIM ---
History of Present Illness H&P Date: 03/01/20 Chief Complaint: Severe nausea This is a 64-year-old male with past medical history noted below significant for coronary artery disease status post CABG in July of this see that presented to the emergency room with worsening nausea, vomiting, and chest pain. Patient is a very poor historian. Apparently he is noncompliant with his medication according to his son patient did not take his medications for the past 5 days. Patient himself denies any noncompliance and reported that he usually take his medicine like is supposed to. Patient told me that he woke up this morning and was having severe nausea and vomited once. He denies any abdominal pain. He said that he had a normal bowel movement yesterday. He denies any chest pain prior to this morning when he started having chest pain after his vomiting. Patient was evaluated in the ER and was found to have narrow complex tachycardia with a heart rate up to 170. He was given multiple doses of adenosine with some improvement in his heart rate. When I saw him, heart rate was in the 150s. He denies any palpitation but appeared very uncomfortable and reported having a lot of nausea. He received IV Zofran with minimal relief. He otherwise denies any abdominal pain. No fevers or chills. No flulike symptoms. No recent sick contact. He admits to using marijuana Review of Systems Review of system: 14 points review of systems were obtained and were negative except to what were mentioned in the HPI. Past Medical History Past Medical History: Atrial Fibrillation, Coronary Artery Disease (CAD), Chest Pain / Angina, Diabetes Mellitus, GERD/Reflux, Hyperlipidemia, Hypertension, Myocardial Infarction (CO) Additional Past Medical History / Comment(s): Pt had CABG 07/2019 and had post op Afib/UTI with pseudomonas aeruginosa, ischemic cardiomyopathy, IDDM type II, past R scrotal abscess with sepsis, chronic lower back pain and bilateral leg pain, Last Myocardial Infarction Date:: 03/20/15 History of Any Multi-Drug Resistant Organisms: None Reported Past Surgical History: Back Surgery, Coronary Bypass/CABG, Heart Catheterization, Heart Catheterization With Stent, Orthopedic Surgery Additional Past Surgical History / Comment(s): 08/23/2019 CABG 3 vessels, PCI with total of 5 stents, L ankle ligament repair, R leg ORIF, low back surgery, colonoscopy. Past Anesthesia/Blood Transfusion Reactions: No Reported Reaction Additional Past Anesthesia/Blood Transfusion Reaction / Comment(s): Pt has received blood in past without reaction. Date of Last Stent Placement:: 02/2015 Past Psychological History: No Psychological Hx Reported Smoking Status: Former smoker Past Alcohol Use History: None Reported Past Drug Use History: Marijuana - Past Family History Sister(s) Family Medical History: Coronary Artery Disease (CAD), Hypertension Father Family Medical History: Coronary Artery Disease (CAD), Diabetes Mellitus, Deep Vein Thrombosis (DVT), Hypertension Additional Family Medical History / Comment(s): Father at age 58yrs. He of blood clot from leg injury that went to his heart. Medications and Allergies Home Medications Medication Instructions Recorded Confirmed Type Pantoprazole [Protonix] 40 mg PO AC-BRKFST #30 tablet. 09/01/19 03/01/20 Rx Atorvastatin [Lipitor] 40 mg PO DAILY #30 tab 10/24/19 03/01/20 Rx Clopidogrel [Plavix] 75 mg PO DAILY #30 tab 10/24/19 03/01/20 Rx Nitroglycerin Sl Tabs [Nitrostat] 0.4 mg SUBLINGUAL Q5M PRN tab 10/24/19 03/01/20 Rx Spironolactone [Aldactone] 25 mg PO DAILY #30 tab 10/24/19 03/01/20 Rx DULoxetine HCL [Cymbalta] 60 mg PO BID 11/16/19 03/01/20 History Semaglutide [Ozempic] 0.25 mg SQ WE 11/16/19 03/01/20 History glipiZIDE [Glucotrol] 5 mg PO AC-BID 11/16/19 03/01/20 History metFORMIN HCL 1,000 mg PO BID 11/16/19 03/01/20 History Apixaban [Eliquis] 5 mg PO BID tab 11/18/19 03/01/20 Rx Gabapentin 300 mg PO BID 03/01/20 03/01/20 History Insulin Aspart [NovoLOG Flexpen] 10 units SQ AC-BID 03/01/20 03/01/20 History Metoprolol Tartrate [Lopressor] 50 mg PO BID 03/01/20 03/01/20 History Potassium Chloride [Klor-Con 20] 20 meq PO BID 03/01/20 03/01/20 History amLODIPine [Norvasc] 5 mg PO DAILY 03/01/20 03/01/20 History lisinopriL 30 mg PO DAILY 03/01/20 03/01/20 History oxyCODONE ER [OxyCONTIN] 80 mg PO Q12H 03/01/20 03/01/20 History oxyCODONE HCL [oxyCODONE HCL (IR)] 15 mg PO Q8H 03/01/20 03/01/20 History Allergies Allergy/AdvReac Type Severity Reaction Status Date / Time No Known Allergies Allergy Verified 03/01/20 09:06 Physical Exam Vitals: Vital Signs Temp Pulse Pulse Resp BP Pulse Ox 03/01/20 08:55 151 H 20 150/112 98 03/01/20 08:18 116 H 22 183/113 100 03/01/20 07:54 152 H 22 173/124 95 03/01/20 06:41 138 H 24 186/109 100 03/01/20 06:17 140 H 03/01/20 06:09 98.3 F 72 20 190/120 100 Intake and Output 02/29/20 03/01/20 03/01/20 22:59 06:59 14:59 Other: Weight 75.296 kg General: The patient is awake and alert, in no distress Eye: there is normal conjunctiva bilaterally. Neck: The neck is supple, there is no JVD. Cardiovascular: Normal S1-S2, no S3-S4, no murmurs. Respiratory: Lungs clear to auscultation bilaterally Gastrointestinal: Abdomen is soft, nontender Musculoskeletal: There is no pedal edema. Neurological:. Speech is normal. Skin: Skin is warm and dry Results CBC & Chem 7: 03/01/20 06:32 03/01/20 06:32 Labs: Abnormal Lab Results - Last 24 Hours (Table) 03/01/20 03/01/20 03/01/20 Range/Units 06:32 06:32 06:32 WBC 16.0 H (3.8-10.6) k/uL Plt Count 495 H (150-450) k/uL Neutrophils # 12.8 H (1.3-7.7) k/uL Sodium 133 L (137-145) mmol/L Chloride 95 L (98-107) mmol/L Carbon Dioxide 21 L (22-30) mmol/L BUN 28 H (9-20) mg/dL Glucose 430 H (74-99) mg/dL POC Glucose (mg/dL) (75-99) mg/dL Calcium 11.0 H (8.4-10.2) mg/dL Alkaline Phosphatase 172 H (38-126) U/L Urine Protein 1+ H (Negative) Urine Glucose (UA) 4+ H (Negative) Urine Ketones Trace H (Negative) Ur Oxycodone Screen Detected H (NotDetected) U Marijuana (THC) Screen Detected H (NotDetected) 03/01/20 Range/Units 08:15 WBC (3.8-10.6) k/uL Plt Count (150-450) k/uL Neutrophils # (1.3-7.7) k/uL Sodium (137-145) mmol/L Chloride (98-107) mmol/L Carbon Dioxide (22-30) mmol/L BUN (9-20) mg/dL Glucose (74-99) mg/dL POC Glucose (mg/dL) 367 H (75-99) mg/dL Calcium (8.4-10.2) mg/dL Alkaline Phosphatase (38-126) U/L Urine Protein (Negative) Urine Glucose (UA) (Negative) Urine Ketones (Negative) Ur Oxycodone Screen (NotDetected) U Marijuana (THC) Screen (NotDetected) Assessment and Plan Assessment: This is a 64-year-old male with history of medical noncompliance who presented to the emergency room with nausea and vomiting. Patient was evaluated in the ER and admitted to the hospital for further management of his medical problems noted below. 1. Narrow complex tachycardia suggestive for SVT, improved with IV adenosine in the ER. Patient was seen and evaluated by cardiology. Started on IV Cardizem drip. Continue telemetry monitoring. 2. Chest pain: Twelve-lead EKG in the ER showed no acute ischemic changes. Initial troponin was negative. We will continue to trend troponin. 3. Severe nausea and vomiting, exact etiology unclear. May be attributed to cyclic vomiting syndrome secondary to marijuana use. Abdominal exam is benign. We will continue symptomatic treatment. Continue Zofran as needed. One-time dose of Compazine ordered. Protonix 40 mg IV daily. Nothing by mouth for now. Normal saline at 75 mL per hour. 4. Coronary artery disease status post CABG in July 2019 5. Ischemic cardiomyopathy with chronic systolic heart failure, no evidence of exacerbation 6. Paroxysmal atrial fibrillation on anticoagulation with a liquids 7. Essential hypertension: Blood pressure not well controlled. Resume home medication and continue to monitor closely 8. Marijuana abuse: Counseled extensively to quit 9. Chronic pain syndrome Time with Patient: Greater than 30
[2020-03-01 12:35] LABS: Glucose,Whole Blood 315 mg/dL (75-99)
[2020-03-01] MEDS ORDERED: METOPROLOL TARTRATE 5 MG/5 ML VIAL IVP PRN (12:37)
[2020-03-01] MEDS: INSULIN ASPART (NovoLOG) 100 UNIT/ML VIAL SQ SCH ×3 (12:37→22:25)
[2020-03-01] MEDS: SODIUM CHLORIDE 0.9% 1,000 ML IV SCH (12:41)
[2020-03-01] MEDS ORDERED: AMIODARONE 300 MG in DEXTROSE 5% IN WATER 250 ML IV SCH ×2 (14:21)
[2020-03-01] MEDS: PANTOPRAZOLE 40 MG/10 ML VIAL IVP SCH (14:58)
[2020-03-01 18:03] LABS: Glucose,Whole Blood 255 mg/dL (75-99)
[2020-03-01] MEDS: ATORVASTATIN 40 MG TAB PO SCH (18:48)
[2020-03-01] MEDS: METOPROLOL TARTRATE 50 MG TAB PO SCH ×2 (18:48→20:26)
[2020-03-01] MEDS: amLODIPine 5 MG TAB PO SCH (18:48)
[2020-03-01] MEDS: lisinopriL 10 MG TAB PO SCH (18:50)
[2020-03-01] MEDS: APIXABAN 5 MG TAB PO SCH ×2 (18:50→20:26)
[2020-03-01] MEDS: POTASSIUM CHLORIDE ER 20 MEQ TAB.ER PO SCH ×2 (19:08→20:30)
[2020-03-01] MEDS: GABAPENTIN 300 MG CAP PO SCH (20:26)
[2020-03-01] MEDS: DULoxetine HCL 60 MG CAPSULE.DR PO SCH (20:26)
[2020-03-01 22:10] LABS: Glucose,Whole Blood 100 mg/dL (75-99)
[2020-03-02] MEDS: SODIUM CHLORIDE 0.9% 1,000 ML IV SCH ×2 (04:30→16:55)
[2020-03-02 06:18] LABS: Glucose,Whole Blood 253 mg/dL (75-99)
[2020-03-02] MEDS: INSULIN ASPART (NovoLOG) 100 UNIT/ML VIAL SQ SCH ×3 (06:27→16:58)
[2020-03-02] MEDS: GABAPENTIN 300 MG CAP PO SCH ×2 (08:20→20:48)
[2020-03-02] MEDS: amLODIPine 5 MG TAB PO SCH (08:20)
[2020-03-02] MEDS: PANTOPRAZOLE 40 MG/10 ML VIAL IVP SCH (08:20)
[2020-03-02] MEDS: lisinopriL 10 MG TAB PO SCH (08:20)
[2020-03-02] MEDS: METOPROLOL TARTRATE 50 MG TAB PO SCH ×3 (08:20→20:47)
[2020-03-02] MEDS: CLOPIDOGREL 75 MG TAB PO SCH (08:20)
[2020-03-02] MEDS: POTASSIUM CHLORIDE ER 20 MEQ TAB.ER PO SCH ×2 (08:20→20:47)
[2020-03-02] MEDS: APIXABAN 5 MG TAB PO SCH ×2 (08:20→20:47)
[2020-03-02] MEDS: ATORVASTATIN 40 MG TAB PO SCH (08:20)
[2020-03-02] MEDS: DULoxetine HCL 60 MG CAPSULE.DR PO SCH ×2 (08:20→20:47)
--- NOTE | 2020-03-02 10:00 | ECHOF ---
Referral Reason:Chest pain MEASUREMENTS -------- HEIGHT: 170.2 cm WEIGHT: 75.3 kg BP: 150/112 RVIDd: 2.6 cm (< 3.3) IVSd: 1.6 cm (0.6 - 1.1) LVIDd: 3.2 cm (3.9 - 5.3) LVPWd: 1.6 cm (0.6 - 1.1) IVSs: 2.0 cm LVIDs: 2.7 cm LVPWs: 1.8 cm LA Diam: 3.0 cm (2.7 - 3.8) Ao Diam: 3.5 cm (2.0 - 3.7) MV EXCURSION: 19.089 mm (> 18.000) MV EF SLOPE: 310 mm/s (70 - 150) EPSS: 0.3 cm MV E Khanh: 0.76 m/s MV DecT: 86 ms MV A Khanh: 0.47 m/s MV E/A Ratio: 1.61 FINDINGS -------- Resting tachycardia (HR>100bpm). This was a technically difficult study with suboptimal views. The left ventricular size is normal. There is moderate concentric left ventricular hypertrophy. O verall left ventricular systolic function is mild-moderately impaired with, an EF between 40 - 45 %. Basal inferior LV wall motion is hypokinetic. Basal inferoseptal LV wall motion is hypokinetic. The right ventricle is normal in size. The left atrium is normal in size. The right atrium was not well visualized. 3 ml of Lumason was utilized for enhancement of images. The aortic valve was not well visualized. The mitral valve was not well visualized. The tricuspid valve was not well visualized. The pulmonic valve was not well visualized. The aortic root size is normal. There is no pericardial effusion. CONCLUSIONS -------- 1. This was a technically difficult study with suboptimal views. 2. There is moderate concentric left ventricular hypertrophy. 3. Overall left ventricular systolic function is mild-moderately impaired with, an EF between 40 - 45 %. 4. Basal inferior LV wall motion is hypokinetic. 5. Basal inferoseptal LV wall motion is hypokinetic. 6. The left atrium is normal in size. 7. 3 ml of Lumason was utilized for enhancement of images. 8. There is no pericardial effusion. ELECTRICAL ENGINEERING DESIGNER: Krissy Hou RDCS
[2020-03-02] MEDS: DILTIAZEM 125 MG in SODIUM CHLORIDE 0.9% 100 ML IV SCH (10:35)
--- NOTE | 2020-03-02 11:15 | P.DS ---
Providers Date of admission: 03/01/20 08:37 Expected date of discharge: 03/02/20 Attending physician: Ev Salinas Consults: 03/01/20 08:41 Consult Physician Routine Consulting Provider: Donovan Hua Consult Reason/Comments: tachycardia, CP Do you want consulting provider notified?: Already Contacted [facility] Course: This is a 64-year-old male with history of medical noncompliance who presented to the emergency room with nausea and vomiting. Patient was evaluated in the ER and admitted to the hospital for further management of his medical problems noted below. 1. Narrow complex tachycardia suggestive for SVT, improved with IV adenosine in the ER. Patient was seen and evaluated by cardiology. Started on IV Cardizem d rip. Telemetry Monitoring. Noted to be in normal sinus rhythm with heart rate well controlled with home medications. 2. Troponin elevation: Most likely non-thrombotic troponin leak secondary to ta chycardia and severe nausea and vomiting. Twelve-lead EKG in the ER showed no acute ischemic changes. Seen and evaluated by cardiology. Continue optimal medical management. Echocardiogram showed ejection fraction of 40-45%. Patient is on dual antiplatelet therapy 3. Severe nausea and vomiting, resolved. exact etiology unclear. May be attributed to cyclic vomiting syndrome secondary to marijuana use. Abdominal exam is benign. Able to tolerate regular diet prior to discharge 4. Coronary artery disease status post CABG in July 2019 5. Ischemic cardiomyopathy with chronic systolic heart failure, no evidence of exacerbation 6. Paroxysmal atrial fibrillation on anticoagulation with Eliquis 7. Essential hypertension: Blood pressure within acceptable range. Continue home medications 8. Marijuana abuse: Counseled extensively to quit 9. Chronic pain syndrome Patient was counseled extensively regarding compliance with his home medication Patient will be discharged home in a stable condition. For further details about this hospitalization please refer to the electronic chart. Time spent on discharge > 30 minutes including counseling and coordination of care Patient Condition at Discharge: Stable Plan - Discharge Summary Discharge Rx Participant: Yes New Discharge Prescriptions: Continue RX: Pantoprazole [Protonix] 40 mg PO AC-BRKFST #30 tablet. RX: Spironolactone [Aldactone] 25 mg PO DAILY #30 tab RX: Nitroglycerin Sl Tabs [Nitrostat] 0.4 mg SUBLINGUAL Q5M PRN tab PRN Reason: Chest Pain RX: Clopidogrel [Plavix] 75 mg PO DAILY #30 tab RX: Atorvastatin [Lipitor] 40 mg PO DAILY #30 tab RX: DULoxetine HCL [Cymbalta] 60 mg PO BID RX: glipiZIDE [Glucotrol] 5 mg PO AC-BID RX: metFORMIN HCL 1,000 mg PO BID RX: Semaglutide [Ozempic] 0.25 mg SQ WE RX: Apixaban [Eliquis] 5 mg PO BID tab RX: amLODIPine [Norvasc] 5 mg PO DAILY RX: Gabapentin 300 mg PO BID RX: Insulin Aspart [NovoLOG Flexpen] 10 units SQ AC-BID RX: lisinopriL 30 mg PO DAILY RX: Metoprolol Tartrate [Lopressor] 50 mg PO BID RX: oxyCODONE ER [OxyCONTIN] 80 mg PO Q12H RX: oxyCODONE HCL [oxyCODONE HCL (IR)] 15 mg PO Q8H RX: Potassium Chloride [Klor-Con 20] 20 meq PO BID Discharge Medication List RX: Pantoprazole [Protonix] 40 mg PO AC-BRKFST #30 tablet. 09/01/19 [Rx] RX: Atorvastatin [Lipitor] 40 mg PO DAILY #30 tab 10/24/19 [Rx] RX: Clopidogrel [Plavix] 75 mg PO DAILY #30 tab 10/24/19 [Rx] RX: Nitroglycerin Sl Tabs [Nitrostat] 0.4 mg SUBLINGUAL Q5M PRN tab 10/24/19 [Rx] RX: Spironolactone [Aldactone] 25 mg PO DAILY #30 tab 10/24/19 [Rx] RX: DULoxetine HCL [Cymbalta] 60 mg PO BID 11/16/19 [History] RX: Semaglutide [Ozempic] 0.25 mg SQ WE 11/16/19 [History] RX: glipiZIDE [Glucotrol] 5 mg PO AC-BID 11/16/19 [History] RX: metFORMIN HCL 1,000 mg PO BID 11/16/19 [History] RX: Apixaban [Eliquis] 5 mg PO BID tab 11/18/19 [Rx] RX: Gabapentin 300 mg PO BID 03/01/20 [History] RX: Insulin Aspart [NovoLOG Flexpen] 10 units SQ AC-BID 03/01/20 [History] RX: Metoprolol Tartrate [Lopressor] 50 mg PO BID 03/01/20 [History] RX: Potassium Chloride [Klor-Con 20] 20 meq PO BID 03/01/20 [History] RX: amLODIPine [Norvasc] 5 mg PO DAILY 03/01/20 [History] RX: lisinopriL 30 mg PO DAILY 03/01/20 [History] RX: oxyCODONE ER [OxyCONTIN] 80 mg PO Q12H 03/01/20 [History] RX: oxyCODONE HCL [oxyCODONE HCL (IR)] 15 mg PO Q8H 03/01/20 [History] Follow up Appointment(s)/Referral(s): Dexter Ji DO [Primary Care Provider] - 1-2 days Donovan Hua MD [STAFF PHYSICIAN] - 1 Week Discharge Disposition: HOME SELF-CARE
[2020-03-02 11:22] LABS: Basophils % (A) 0 %; Eosinophils # (A) 0.1 k/uL (0-0.7); Eosinophils % (A) 1 %; HCT 43.7 % (39.0-53.0); HGB 14.3 gm/dL (13.0-17.5); Lymphocytes # (A) 1.8 k/uL (1.0-4.8); Lymphocytes % (A) 13 %; MCH 31.3 pg (25.0-35.0); MCHC 32.7 g/dL (31.0-37.0); MCV 95.7 fL (80.0-100.0); Mean Platelet Volume 6.7; Monocytes # (A) 0.9 k/uL (0-1.0); Monocytes % (A) 6 %; Neutrophils # (A) 11.5 k/uL (1.3-7.7); Neutrophils % (A) 80 %; Platelet Count 434 k/uL (150-450); RBC 4.57 m/uL (4.30-5.90); RDW 15.1 % (11.5-15.5); WBC 14.4 k/uL (3.8-10.6)
[2020-03-02 11:30] LABS: African American GFR (CKD) >90 (>60 ml/min/1.73 sqM); Anion Gap 8 mmol/L; Blood Urea Nitrogen 19 mg/dL (9-20); Calcium 9.3 mg/dL (8.4-10.2); Carbon Dioxide 24 mmol/L (22-30); Chloride 103 mmol/L (98-107); Glucose 313 mg/dL (74-99); Magnesium 1.8 mg/dL (1.6-2.3); Non-African American GFR(CKD) >90 (>60 ml/min/1.73 sqM); Potassium 4.4 mmol/L (3.5-5.1); Sodium 135 mmol/L (137-145)
--- NOTE | 2020-03-02 11:35 | P.PN ---
Subjective HISTORY OF PRESENTING ILLNESS This is a pleasant 64-year-old male past medical history significant for coraonary artery disease with PCI to RCA 2007 and again in 2014 and subsequent bypass grafting 08/16 with QUINONES-LAD, LRA-OM2, reverse SVG-PAD, ischemic cardiomyopathy, chronic systolic heart failure, hypertension, dyslipidemia, diabetes mellitus, paroxysmal atrial fibrillation and Eliquis, former nicotine depdence and marijuana use. He follows in the office with Dr. Hua. He is seen and examined sitting up in bed talking on the phone with family. He looks much better today. His heart rates are controlled and he is currently maintainin g sinus mechanism. He denies chest pain, shortness of breath, dizziness, nausea, vomiting or palpitations. He is able to give more information today about the circumstances of his ER visit. He states he woke up yesterday and noticed a numbness in his chest. He checked his blood pressure and it was 200/100. As the morning went on he started feeling nauseated and vomited. Telemetry tracing reviewed, things appear to have improved around evening time and the cardizem was discontinued. Blood pressure 121/68 heart rate 67 afebrile and maintaining oxygen saturation on room air. Labs currently pending. Repeat echocardiogram reveals mildly impaired LV systolic function with ejection fraction 40-45% with basal inferior and basal inferior septal LV wall motion hypokinesia. Laboratory data reviewed, WBC 14.4, hgb 14.3, plt 434, BMP pending. PHYSICAL EXAMINATION CONSTITUTIONAL: Appears comfortable, no acute distress. HEENT: Head is normocephalic. Pupils are equal, round. Sclerae anicteric. Mucous membranes of the mouth are moist. No JVD. No carotid bruit. CHEST EXAMINATION: Lungs are clear to auscultation. No chest wall tenderness is noted on palpation or with deep breathing. HEART EXAMINATION: Regular rate and rhytym. S1, S2 heard. No murmurs, gallops or rub. EXTREMITIES: 2+ peripheral pulses, no lower extremity edema and no calf tenderness. ASSESSMENT Tachycardia, narrow complex sensitive to adenosine. Underlying sinus rhythm. Hyperglycemia Nausea and vomiting Leuckocytosis Troponin leak, not related to acute coronary syndrome. Secondary to significant tachycardia. Coronary artery disease s/p bypass grafting Ischemic cardiomyopathy Chronic systolic heart failure Hypertension Dyslipidemia Paroxysmal atrial fibrillation on eliquis PLAN Review of yesterday afternoon EKG shows sinus tachycardia, telemetry tracings show sinus rhythm as well. Repeat EKG. Increase lopressor to 50 mg TID and discontinue amlodipine. Continue to monitor closely for another 24 hours. Nurse Practitioner note has been reviewed, I agree with a documented findings and plan of care. Patient was seen and examined. Objective - Vital Signs Vital signs: Vital Signs Temp 98.5 F 03/02/20 03:05 Pulse 67 03/02/20 03:05 Resp 18 03/02/20 03:05 BP 121/68 03/02/20 03:05 Pulse Ox 96 03/02/20 03:05 Intake & Output 03/01/20 03/02/20 03/02/20 18:59 06:59 18:59 Intake Total 141.250 Output Total 900 400 Balance -900 -258.750 Weight 75.296 kg Intake: Intake, IV Titration 141.250 Amount Diltiazem 125 mg In 141.250 Sodium Chloride 0.9% 100 ml @ 5 MG/HR 5 mls/hr IV .Q24H [facility] Rx#:[id number] Output: Urine 900 400 - Labs CBC & Chem 7: 03/02/20 10:54 03/01/20 06:32 Labs: Abnormal Lab Results - Last 24 Hours (Table) 03/01/20 03/01/20 03/01/20 Range/Units 11:28 12:33 15:07 POC Glucose (mg/dL) 315 H (75-99) mg/dL Troponin I 0.040 H* 0.072 H* (0.000-0.034) ng/mL 03/01/20 03/01/20 03/02/20 Range/Units 18:01 22:09 06:17 POC Glucose (mg/dL) 255 H 100 H 253 H (75-99) mg/dL Troponin I (0.000-0.034) ng/mL
[2020-03-02 11:40] LABS: Glucose,Whole Blood 313 mg/dL (75-99)
[2020-03-02 13:13] LABS: T4, Free (Free Thyroxine) 1.87 ng/dL (0.78-2.19)
[2020-03-02 16:51] LABS: Glucose,Whole Blood 257 mg/dL (75-99)
[2020-03-02 19:49] LABS: Glucose,Whole Blood 107 mg/dL (75-99)
[2020-03-03] MEDS: INSULIN ASPART (NovoLOG) 100 UNIT/ML VIAL SQ SCH ×3 (00:57→11:44)
[2020-03-03] MEDS: SODIUM CHLORIDE 0.9% 1,000 ML IV SCH (05:34)
[2020-03-03 06:28] LABS: Glucose,Whole Blood 314 mg/dL (75-99)
[2020-03-03 08:55] LABS: Basophils % (A) 0 %; Eosinophils # (A) 0.1 k/uL (0-0.7); Eosinophils % (A) 1 %; HCT 39.6 % (39.0-53.0); Lymphocytes # (A) 2.1 k/uL (1.0-4.8); Lymphocytes % (A) 19 %; MCH 31.4 pg (25.0-35.0); MCHC 32.9 g/dL (31.0-37.0); MCV 95.4 fL (80.0-100.0); Mean Platelet Volume 6.8; Monocytes # (A) 0.5 k/uL (0-1.0); Monocytes % (A) 5 %; Neutrophils # (A) 8.2 k/uL (1.3-7.7); Neutrophils % (A) 75 %; Platelet Count 381 k/uL (150-450); RBC 4.15 m/uL (4.30-5.90); RDW 14.8 % (11.5-15.5)
[2020-03-03] MEDS: APIXABAN 5 MG TAB PO SCH (09:10)
[2020-03-03] MEDS: GABAPENTIN 300 MG CAP PO SCH (09:10)
[2020-03-03] MEDS: METOPROLOL TARTRATE 50 MG TAB PO SCH (09:10)
[2020-03-03] MEDS: ATORVASTATIN 40 MG TAB PO SCH (09:11)
[2020-03-03] MEDS: lisinopriL 10 MG TAB PO SCH (09:11)
[2020-03-03] MEDS: POTASSIUM CHLORIDE ER 20 MEQ TAB.ER PO SCH (09:11)
[2020-03-03] MEDS: PANTOPRAZOLE 40 MG/10 ML VIAL IVP SCH (09:11)
[2020-03-03] MEDS: DULoxetine HCL 60 MG CAPSULE.DR PO SCH (09:11)
[2020-03-03] MEDS: CLOPIDOGREL 75 MG TAB PO SCH (09:11)
[2020-03-03 09:14] LABS: African American GFR (CKD) >90 (>60 ml/min/1.73 sqM); Anion Gap 7 mmol/L; Blood Urea Nitrogen 22 mg/dL (9-20); Calcium 9.2 mg/dL (8.4-10.2); Carbon Dioxide 26 mmol/L (22-30); Chloride 102 mmol/L (98-107); Glucose 282 mg/dL (74-99); Non-African American GFR(CKD) >90 (>60 ml/min/1.73 sqM); Potassium 3.7 mmol/L (3.5-5.1); Sodium 135 mmol/L (137-145)
[2020-03-03 09:20] VITALS: TEMP 97.5
[2020-03-03 11:56] LABS: Glucose,Whole Blood 81 mg/dL (75-99)
[2020-03-03 12:02] VITALS: BP 124/77; PULSE 80; RESP 18
--- NOTE | 2020-03-03 13:14 | P.PN ---
Subjective Progress Note Date: 03/03/20 This is a pleasant 64-year-old gentleman with past medical history significant for CAD with PCI to RCA in 2007 and again in 2014 with subsequent bypass grafting in July 2019 with QUINONES to LAD, LRA to the OM 2 and reverse SVG to PDA DA, ischemic cardiomyopathy, chronic systolic heart failure, hypertension, hy perlipidemia, diabetes, paroxysmal atrial fibrillation on Eliquis, former nicotine dependence and marijuana use. He falls in the office Dr. Hua presented to the emergency department after feeling a numbness in his chest, elevated blood pressure and feeling of nausea and vomiting. Patient was found to have narrow complex tachycardia sensitive to adenosine. Medications have been adjusted he is currently on metoprolol 50 mg by mouth 3 times a day. He is maintaining sinus rhythm. No further episodes of tachycardia noted. 2-D echo with Doppler revealed mildly impaired LV systolic function with ejection fraction between 40-45% with basal inferior and basal inferoseptal LV wall motion hypokinesia. Objective - Vital Signs Vital signs: Vital Signs Temp 97.5 F L 03/03/20 09:10 Pulse 80 03/03/20 11:30 Resp 18 03/03/20 11:30 BP 124/77 03/03/20 11:30 Pulse Ox 100 03/03/20 11:30 Intake & Output 03/02/20 03/03/20 03/03/20 18:59 06:59 18:59 Intake Total 2120 490 Output Total 400 Balance 1720 490 Weight 74.8 kg Intake: Oral 2120 490 Output: Urine 400 Other: # Voids 1 1 1 - Exam PHYSICAL EXAMINATION: HEENT: Head is atraumatic, normocephalic. Pupils equal, round. Neck is supple. There is no elevated jugular venous pressure. HEART EXAMINATION: Heart sounds regular, S1 and S2 normal. No murmur or gallop heard. CHEST EXAMINATION: Lungs are clear to auscultation. No chest wall tenderness is noted on palpation or with deep breathing. ABDOMEN: Soft, nontender. Bowel sounds are heard. No organomegaly noted. EXTREMITIES: 2+ peripheral pulses with no evidence of peripheral edema and no calf tenderness noted. NEUROLOGIC patient is awake, alert and oriented x3. . - Labs CBC & Chem 7: 03/03/20 08:32 03/03/20 08:32 Labs: Abnormal Lab Results - Last 24 Hours (Table) 03/02/20 03/02/20 03/03/20 Range/Units 16:50 19:48 06:27 WBC (3.8-10.6) k/uL RBC (4.30-5.90) m/uL Neutrophils # (1.3-7.7) k/uL Sodium (137-145) mmol/L BUN (9-20) mg/dL Glucose (74-99) mg/dL POC Glucose (mg/dL) 257 H 107 H 314 H (75-99) mg/dL 03/03/20 03/03/20 Range/Units 08:32 08:32 WBC 11.0 H (3.8-10.6) k/uL RBC 4.15 L (4.30-5.90) m/uL Neutrophils # 8.2 H (1.3-7.7) k/uL Sodium 135 L (137-145) mmol/L BUN 22 H (9-20) mg/dL Glucose 282 H (74-99) mg/dL POC Glucose (mg/dL) (75-99) mg/dL Assessment and Plan Assessment: #1 tachycardia, narrow complex, sensitive to adenosine #2 hyperglycemia #3 troponin leak, not related to acute coronary syndrome, secondary to significant tachycardia #4 CAD status post stenting and bypass grafting in the past #5 ischemic cardiomyopathy #6 hypertension #7 dyslipidemia #8 paroxysmal atrial fibrillation on Eliquis Plan: Cardiology's perspective, medications are reviewed and we will continue the same. From our standpoint the patient may be discharged home today he will follow-up in the office with Dr. Hua. The above dictated assessment and findings were discussed with signing physician. The impression and plan of care have been directed as dictated. Shania Elias, Nurse Practitioner, acting as scribe for signing physician.
== END 2020-03-03 14:03 | disposition home or self-care (01) | DRG 309 ==
LOC: EC 06:08 → 3SCARD 08:37
PROVIDERS: ADMIT Internal Medicine; ATTEND Internal Medicine
PROC: 5A2204Z Restoration of Cardiac Rhythm, Single (ICD-10-PCS; principal; 2020-03-01)
DX: I47.1 Supraventricular tachycardia (principal); I50.22 Chronic systolic (congestive) heart failure; I11.0 Hypertensive heart disease with heart failure; Z95.1 Presence of aortocoronary bypass graft; I48.0 Paroxysmal atrial fibrillation; E11.65 Type 2 diabetes mellitus with hyperglycemia; Z79.4 Long term (current) use of insulin; E78.5 Hyperlipidemia, unspecified; I25.10 Atherosclerotic heart disease of native coronary artery without angina pectoris; K21.9 Gastro-esophageal reflux disease without esophagitis; R11.15 Cyclical vomiting syndrome unrelated to migraine; I25.5 Ischemic cardiomyopathy; F12.10 Cannabis abuse, uncomplicated; G89.4 Chronic pain syndrome; E86.0 Dehydration; R77.8 Other specified abnormalities of plasma proteins; D72.829 Elevated white blood cell count, unspecified; I25.2 Old myocardial infarction; Z79.01 Long term (current) use of anticoagulants; Z79.02 Long term (current) use of antithrombotics/antiplatelets; Z79.891 Long term (current) use of opiate analgesic; Z79.899 Other long term (current) drug therapy; Z91.19 Patient's noncompliance with other medical treatment and regimen; Z87.440 Personal history of urinary (tract) infections; Z95.5 Presence of coronary angioplasty implant and graft; Z98.890 Other specified postprocedural states; Z91.14 Patient's other noncompliance with medication regimen; Z87.891 Personal history of nicotine dependence; Z82.49 Family history of ischemic heart disease and other diseases of the circulatory system; Z83.3 Family history of diabetes mellitus
CPT/HCPCS: 36415; 71045; 80048; 80053; 80306; 81001; 82009; 83735; 84439; 84443; 84484; 85025; 85379; 85610; 85730; 93005; 93306; 96365; 96366; 96368; 96375; 96376; 99285

== ENCOUNTER 2020-04-08 16:27 | Inpatient (IN) | payer MEDICARE, OTHER ==
[2020-04-08] MEDS ORDERED: ONDANSETRON 4 MG/2 ML VIAL IVP STA (16:42)
--- NOTE | 2020-04-08 16:44 | ED ---
General Adult HPI - General Chief complaint: Weakness Stated complaint: Weakness Time Seen by Provider: 04/08/20 16:41 Source: patient, EMS Mode of arrival: EMS Limitations: no limitations - History of Present Illness Initial comments: Patient presents the ED by ambulance for evaluation. Patient states that he has been vomiting all day today, and he states that he feels very weak. Patient states that his sister called for an ambulance for him today. Patient states that he has not taken any of his medications today secondary to nausea and vomiting. Patient states that he was fine yesterday, and he states that he took all of his medications yesterday. Patient denies having any pain, fever or chills, headache, focal numbness/weakness/neuro deficit, chest pain or pressure, dyspnea, cough or cold symptoms, palpitations, dizziness, abdominal pain, diarrhea or constipation, bloody or melanotic stool, hematemesis, dysuria/urinary frequency/hematuria/urinary symptoms, or any other symptoms or complaints. Patient admits to smoking marijuana, but he denies any other illicit drug use. Patient denies alcohol use. Patient denies known sick con tact. - Related Data Home Medications Medication Instructions Recorded Confirmed DULoxetine HCL [Cymbalta] 60 mg PO BID 11/16/19 04/08/20 Semaglutide [Ozempic] 0.25 mg SQ WE 11/16/19 04/08/20 glipiZIDE [Glucotrol] 5 mg PO AC-BID 11/16/19 04/08/20 metFORMIN HCL 1,000 mg PO BID 11/16/19 04/08/20 Gabapentin 300 mg PO BID 03/01/20 04/08/20 Insulin Aspart [NovoLOG Flexpen] 10 units SQ AC-BID 03/01/20 04/08/20 Potassium Chloride [Klor-Con 20] 20 meq PO BID 03/01/20 04/08/20 lisinopriL 30 mg PO DAILY 03/01/20 04/08/20 oxyCODONE ER [OxyCONTIN] 80 mg PO Q12H 03/01/20 04/08/20 oxyCODONE HCL [oxyCODONE HCL (IR)] 15 mg PO Q8H 03/01/20 04/08/20 Previous Rx's Medication Instructions Recorded Pantoprazole [Protonix] 40 mg PO AC-BRKFST #30 tablet. 09/01/19 Atorvastatin [Lipitor] 40 mg PO DAILY #30 tab 10/24/19 Clopidogrel [Plavix] 75 mg PO DAILY #30 tab 10/24/19 Nitroglycerin Sl Tabs [Nitrostat] 0.4 mg SUBLINGUAL Q5M PRN tab 10/24/19 Spironolactone [Aldactone] 25 mg PO DAILY #30 tab 10/24/19 Apixaban [Eliquis] 5 mg PO BID tab 11/18/19 Metoprolol Tartrate 75 mg PO BID #180 tab 03/03/20 Allergies Allergy/AdvReac Type Severity Reaction Status Date / Time No Known Allergies Allergy Verified 04/08/20 17:41 Review of Systems ROS Statement: Those systems with pertinent positive or pertinent negative responses have been documented in the HPI. ROS Other: All systems not noted in ROS Statement are negative. Past Medical History Past Medical History: Atrial Fibrillation, Coronary Artery Disease (CAD), Chest Pain / Angina, Diabetes Mellitus, GERD/Reflux, Hyperlipidemia, Hypertension, Myocardial Infarction ([place]) Additional Past Medical History / Comment(s): Pt had CABG 07/2019 and had post op Afib/UTI with pseudomonas aeruginosa, ischemic cardiomyopathy, IDDM type II, past R scrotal abscess with sepsis, chronic lower back pain and bilateral leg pain, Last Myocardial Infarction Date:: 03/20/15 History of Any Multi-Drug Resistant Organisms: None Reported Past Surgical History: Back Surgery, Coronary Bypass/CABG, Heart Catheterization, Heart Catheterization With Stent, Orthopedic Surgery Additional Past Surgical History / Comment(s): 08/23/2019 CABG 3 vessels, PCI with total of 5 stents, L ankle ligament repair, R leg ORIF, low back surgery, colonoscopy. Past Anesthesia/Blood Transfusion Reactions: No Reported Reaction Additional Past Anesthesia/Blood Transfusion Reaction / Comment(s): Pt has received blood in past without reaction. Date of Last Stent Placement:: 02/2015 Past Psychological History: No Psychological Hx Reported Smoking Status: Former smoker Past Alcohol Use History: None Reported Past Drug Use History: Marijuana - Past Family History Sister(s) Family Medical History: Coronary Artery Disease (CAD), Hypertension Father Family Medical History: Coronary Artery Disease (CAD), Diabetes Mellitus, Deep Vein Thrombosis (DVT), Hypertension Additional Family Medical History / Comment(s): Father at age 58yrs. He of blood clot from leg injury that went to his heart. General Exam Limitations: no limitations General appearance: alert Head exam: Present: atraumatic, normocephalic Eye exam: Present: normal appearance, PERRL, EOMI ENT exam: Present: mucous membranes dry Neck exam: Present: other (Trachea is in midline). Absent: tenderness, meningismus Respiratory exam: Present: normal lung sounds bilaterally. Absent: respiratory distress, wheezes, rales, rhonchi, stridor Cardiovascular Exam: Present: normal rhythm, tachycardia, normal heart sounds, other (Normal radial pulses bilaterally) GI/Abdominal exam: Present: soft, normal bowel sounds. Absent: distended, tenderness, guarding Extremities exam: Absent: tenderness, pedal edema, calf tenderness Back exam: Absent: CVA tenderness (R), CVA tenderness (L) Neurological exam: Present: alert, oriented X3. Absent: motor sensory deficit Psychiatric exam: Present: normal affect, normal mood Skin exam: Present: warm, dry, intact, normal color Course Vital Signs 04/08/20 04/08/20 04/08/20 16:30 17:04 17:50 Temperature 97.3 F L Pulse Rate 151 H 135 H 99 Respiratory 24 22 18 Rate Blood Pressure 191/113 163/99 116/81 O2 Sat by Pulse 100 100 100 Oximetry - Reevaluation(s) Reevaluation #1: 04/08/20 17:05 Case, H&P and EKG findings were discussed with Dr. Nicholas (cardiology). Dr. Nicholas has viewed the patient's EKG himself. He states that he does not see any significant change compared to patient's old EKG, and he states that the patient's EKG is not diagnostic. He recommends heparinizing the patient so long as the patient's labs do not show any contraindicating abnormality. He asks to call him back if the patient's troponin is elevated. He has no further recommendations at this time. 04/08/20 18:12 Case, H&P, test results, ED management and my discussion with Dr. Nicholas as above were discussed with Dr. Cristina. He accepts hospital admission. He has no further recommendations at this time. 04/08/20 18:23 Patient remains in a sinus rhythm on the it communications specialist, and his heart rate has now improved to the 90s. Patient remains alert and breathing comfortably. Patient is aware of his test results, and he agrees with hospital admission at this time. Patient states that his nausea and vomiting have improved with ED treatment, and he denies development of any new symptoms while in the ED. EKG Findings - EKG Comments: EKG Findings:: Sinus tachycardia, ventricular rate of 141 bpm, leftward axis, no ectopy, normal TX and QRS intervals, EKG is noted to have diffuse ST abnormalit y, which is similar in appearance to 03/01/2020 EKG, however appears to be more pronounced today Medical Decision Making - Medical Decision Making Patient's laboratory results are suggestive of diabetic ketoacidosis, which is what I suspect is the cause of the patient's symptoms. Patient was given IV fluids an started on an IV insulin drip in the ED. Dr. Nicholas (cardiology) was consulted from the ED given the abnormal appearance of the patient's EKG. He viewed the patient's EKG, and he has recommended heparinization. Patient was started on a heparin drip in the ED per Dr. Nicholas's recommendation. Patient's troponin is negative. Patient's tachycardia has improved while in the ED. Dr. Cristina has accepted hospital floor admission. - Lab Data Result diagrams: 04/08/20 17:49 04/08/20 16:53 Lab Results 04/08/20 04/08/20 04/08/20 Range/Units 16:49 16:51 16:53 WBC (3.8-10.6) k/uL RBC (4.30-5.90) m/uL Hgb (13.0-17.5) gm/dL Hct (39.0-53.0) % MCV (80.0-100.0) fL MCH (25.0-35.0) pg MCHC (31.0-37.0) g/dL RDW (11.5-15.5) % Plt Count (150-450) k/uL MPV Neutrophils % % Lymphocytes % % Monocytes % % Eosinophils % % Basophils % % Neutrophils # (1.3-7.7) k/uL Lymphocytes # (1.0-4.8) k/uL Monocytes # (0-1.0) k/uL Eosinophils # (0-0.7) k/uL Basophils # (0-0.2) k/uL PT 10.2 (9.0-12.0) sec INR 0.9 (<1.2) APTT 24.4 (22.0-30.0) sec VBG pH 7.48 H (7.31-7.41) VBG pCO2 27 L (37-51) mmHg VBG HCO3 20 L (24-28) mmol/L Sodium (137-145) mmol/L Potassium (3.5-5.1) mmol/L Chloride (98-107) mmol/L Carbon Dioxide (22-30) mmol/L Anion Gap mmol/L BUN (9-20) mg/dL Creatinine (0.66-1.25) mg/dL Est GFR (CKD-EPI)AfAm (>60 ml/min/1.73 sqM) Est GFR (CKD-EPI)NonAf (>60 ml/min/1.73 sqM) Glucose (74-99) mg/dL POC Glucose (mg/dL) 411 H (75-99) mg/dL POC Glu Manager Protein ID [place], [place] Plasma Lactic Acid [place] (0.7-2.0) mmol/L Calcium (8.4-10.2) mg/dL Phosphorus (2.5-4.5) mg/dL Magnesium (1.6-2.3) mg/dL Total Bilirubin (0.2-1.3) mg/dL AST (17-59) U/L ALT (4-49) U/L Alkaline Phosphatase (38-126) U/L Creatine Kinase (55-170) U/L Troponin I (0.000-0.034) ng/mL NT-Pro-B Natriuret Pep pg/mL Total Protein (6.3-8.2) g/dL Albumin (3.5-5.0) g/dL Urine Color Urine Appearance (Clear) Urine pH (5.0-8.0) Ur Specific [place] (1.001-1.035) Urine Protein (Negative) Urine Glucose (UA) (Negative) Urine Ketones (Negative) Urine Blood (Negative) Urine Nitrite (Negative) Urine Bilirubin (Negative) Urine Urobilinogen (<2.0) mg/dL Ur Leukocyte Esterase (Negative) Urine RBC (0-5) /hpf Urine WBC (0-5) /hpf Acetone, Qual (Negative) 04/08/20 04/08/20 04/08/20 Range/Units 16:53 16:53 16:53 WBC (3.8-10.6) k/uL RBC (4.30-5.90) m/uL Hgb (13.0-17.5) gm/dL Hct (39.0-53.0) % MCV (80.0-100.0) fL MCH (25.0-35.0) pg MCHC (31.0-37.0) g/dL RDW (11.5-15.5) % Plt Count (150-450) k/uL MPV Neutrophils % % Lymphocytes % % Monocytes % % Eosinophils % % Basophils % % Neutrophils # (1.3-7.7) k/uL Lymphocytes # (1.0-4.8) k/uL Monocytes # (0-1.0) k/uL Eosinophils # (0-0.7) k/uL Basophils # (0-0.2) k/uL PT (9.0-12.0) sec INR (<1.2) APTT (22.0-30.0) sec VBG pH (7.31-7.41) VBG pCO2 (37-51) mmHg VBG HCO3 (24-28) mmol/L Sodium 141 (137-145) mmol/L Potassium 3.6 (3.5-5.1) mmol/L Chloride 99 (98-107) mmol/L Carbon Dioxide 16 L (22-30) mmol/L Anion Gap 26 mmol/L BUN 18 (9-20) mg/dL Creatinine 0.83 (0.66-1.25) mg/dL Est GFR (CKD-EPI)AfAm >90 (>60 ml/min/1.73 sqM) Est GFR (CKD-EPI)NonAf >90 (>60 ml/min/1.73 sqM) Glucose 464 H (74-99) mg/dL POC Glucose (mg/dL) (75-99) mg/dL POC Glu Manager Protein ID Plasma Lactic Acid [place] 6.9 H* (0.7-2.0) mmol/L Calcium 10.4 H (8.4-10.2) mg/dL Phosphorus 4.4 (2.5-4.5) mg/dL Magnesium 1.4 L (1.6-2.3) mg/dL Total Bilirubin 0.6 (0.2-1.3) mg/dL AST 23 (17-59) U/L ALT 24 (4-49) U/L Alkaline Phosphatase 131 H (38-126) U/L Creatine Kinase 46 L (55-170) U/L Troponin I 0.031 (0.000-0.034) ng/mL NT-Pro-B Natriuret Pep pg/mL Total Protein 8.0 (6.3-8.2) g/dL Albumin 4.7 (3.5-5.0) g/dL Urine Color Urine Appearance (Clear) Urine pH (5.0-8.0) Ur Specific [place] (1.001-1.035) Urine Protein (Negative) Urine Glucose (UA) (Negative) Urine Ketones (Negative) Urine Blood (Negative) Urine Nitrite (Negative) Urine Bilirubin (Negative) Urine Urobilinogen (<2.0) mg/dL Ur Leukocyte Esterase (Negative) Urine RBC (0-5) /hpf Urine WBC (0-5) /hpf Acetone, Qual Positive (Negative) 04/08/20 04/08/20 04/08/20 Range/Units 17:04 17:49 17:49 WBC 14.1 H (3.8-10.6) k/uL RBC 4.47 (4.30-5.90) m/uL Hgb 14.0 (13.0-17.5) gm/dL Hct 42.1 (39.0-53.0) % MCV 94.0 (80.0-100.0) fL MCH 31.2 (25.0-35.0) pg MCHC 33.2 (31.0-37.0) g/dL RDW 13.3 (11.5-15.5) % Plt Count 425 (150-450) k/uL MPV 6.6 Neutrophils % 93 % Lymphocytes % 2 % Monocytes % 3 % Eosinophils % 2 % Basophils % 0 % Neutrophils # 13.2 H (1.3-7.7) k/uL Lymphocytes # 0.3 L (1.0-4.8) k/uL Monocytes # 0.4 (0-1.0) k/uL Eosinophils # 0.2 (0-0.7) k/uL Basophils # 0.0 (0-0.2) k/uL PT (9.0-12.0) sec INR (<1.2) APTT (22.0-30.0) sec VBG pH (7.31-7.41) VBG pCO2 (37-51) mmHg VBG HCO3 (24-28) mmol/L Sodium (137-145) mmol/L Potassium (3.5-5.1) mmol/L Chloride (98-107) mmol/L Carbon Dioxide (22-30) mmol/L Anion Gap mmol/L BUN (9-20) mg/dL Creatinine (0.66-1.25) mg/dL Est GFR (CKD-EPI)AfAm (>60 ml/min/1.73 sqM) Est GFR (CKD-EPI)NonAf (>60 ml/min/1.73 sqM) Glucose (74-99) mg/dL POC Glucose (mg/dL) (75-99) mg/dL POC Glu Manager Protein ID Plasma Lactic Acid [place] (0.7-2.0) mmol/L Calcium (8.4-10.2) mg/dL Phosphorus (2.5-4.5) mg/dL Magnesium (1.6-2.3) mg/dL Total Bilirubin (0.2-1.3) mg/dL AST (17-59) U/L ALT (4-49) U/L Alkaline Phosphatase (38-126) U/L Creatine Kinase (55-170) U/L Troponin I (0.000-0.034) ng/mL NT-Pro-B Natriuret Pep 3510 pg/mL Total Protein (6.3-8.2) g/dL Albumin (3.5-5.0) g/dL Urine Color Light Yellow Urine Appearance Clear (Clear) Urine pH 6.0 (5.0-8.0) Ur Specific [place] 1.020 (1.001-1.035) Urine Protein 3+ H (Negative) Urine Glucose (UA) 4+ H (Negative) Urine Ketones 3+ H (Negative) Urine Blood Small H (Negative) Urine Nitrite Negative (Negative) Urine Bilirubin Negative (Negative) Urine Urobilinogen <2.0 (<2.0) mg/dL Ur Leukocyte Esterase Negative (Negative) Urine RBC 4 (0-5) /hpf Urine WBC 1 (0-5) /hpf Acetone, Qual (Negative) - Radiology Data Radiology results: report reviewed (Chest x-ray: No active cardiopulmonary disease, normal heart) Critical Care Time Critical Care Time: Yes Total Critical Care Time: 60 (DKA) Disposition Clinical Impression: Vomiting, Weakness, Hyperglycemia, DKA (diabetic ketoacidoses), Hypomagnesemia Disposition: ADMITTED IP TO THIS [facility] Condition: Stable Is patient prescribed a controlled substance at d/c from ED?: No Referrals: Dexter Ji DO [Primary Care Provider] - 1-2 days Time of Disposition: 18:13
[2020-04-08] MEDS ORDERED: SODIUM CHLORIDE 0.9% 1,000 ML IV STA (16:50)
[2020-04-08 16:52] LABS: Glucose,Whole Blood 411 mg/dL (75-99)
[2020-04-08 17:06] LABS: VBG PH 7.48 (7.31-7.41)
[2020-04-08 17:10] LABS: INR 0.9 (<1.2); Partial Thromboplastin Time 24.4 sec (22.0-30.0); Prothrombin Time 10.2 sec (9.0-12.0)
[2020-04-08 17:16] LABS: AST 23 U/L (17-59); African American GFR (CKD) >90 (>60 ml/min/1.73 sqM); Albumin 4.7 g/dL (3.5-5.0); Alkaline Phosphatase 131 U/L (38-126); Anion Gap 26 mmol/L; Blood Urea Nitrogen 18 mg/dL (9-20); Calcium 10.4 mg/dL (8.4-10.2); Carbon Dioxide 16 mmol/L (22-30); Chloride 99 mmol/L (98-107); Creatine Kinase 46 U/L (55-170); Glucose 464 mg/dL (74-99); Magnesium 1.4 mg/dL (1.6-2.3); Non-African American GFR(CKD) >90 (>60 ml/min/1.73 sqM); Phosphorus 4.4 mg/dL (2.5-4.5); Potassium 3.6 mmol/L (3.5-5.1); Sodium 141 mmol/L (137-145); Total Bilirubin 0.6 mg/dL (0.2-1.3)
[2020-04-08 17:22] LABS: ALT 24 U/L (4-49)
[2020-04-08 17:38] LABS: Appearance,Urine Clear (Clear); Bilirubin,Urine Negative (Negative); Blood,Urine Small (Negative); Color,Urine Light Yellow; Glucose,Urine (UA) 4+ (Negative); Leukocyte Esterase,Urine Negative (Negative); Nitrite,Urine Negative (Negative); Protein,Urine 3+ (Negative); RBC,Urine 4 /hpf (0-5); Urobilinogen,Urine <2.0 mg/dL (<2.0); WBC,Urine 1 /hpf (0-5)
[2020-04-08 17:40] LABS: Ketones,Urine 3+ (Negative)
[2020-04-08] MEDS ORDERED: SODIUM CHLORIDE 0.9% 1,000 ML IV ONE (17:42)
[2020-04-08 17:57] LABS: Basophils % (A) 0 %; Eosinophils # (A) 0.2 k/uL (0-0.7); Eosinophils % (A) 2 %; HCT 42.1 % (39.0-53.0); Lymphocytes # (A) 0.3 k/uL (1.0-4.8); Lymphocytes % (A) 2 %; MCH 31.2 pg (25.0-35.0); MCHC 33.2 g/dL (31.0-37.0); Mean Platelet Volume 6.6; Monocytes # (A) 0.4 k/uL (0-1.0); Monocytes % (A) 3 %; Neutrophils # (A) 13.2 k/uL (1.3-7.7); Neutrophils % (A) 93 %; Platelet Count 425 k/uL (150-450); RBC 4.47 m/uL (4.30-5.90); RDW 13.3 % (11.5-15.5); WBC 14.1 k/uL (3.8-10.6)
[2020-04-08] MEDS ORDERED: HEPARIN SODIUM,PORCINE 5,000 UNIT/ML 1 ML VIAL IV ONE (18:03)
[2020-04-08] MEDS ORDERED: HEPARIN SODIUM,PORCINE 5,000 UNIT/ML 1 ML VIAL IV PRN (18:03)
--- NOTE | 2020-04-08 18:07 | XR ---
EXAMINATION TYPE: XR chest 1V portable DATE OF EXAM: 04/08/2020 COMPARISON: 03/01/2020 HISTORY: Vomiting and weakness TECHNIQUE: Single view FINDINGS: There is no heart failure nor confluent pneumonic infiltrate. Costophrenic angles are clear . There are sternal wires. There are chest leads. IMPRESSION: No active cardiopulmonary disease. Normal heart. No change.
[2020-04-08] MEDS ORDERED: MAGNESIUM SULFATE-D5W PMX 1 GM in DEXTROSE/WATER 1 100ML.BAG IVPB ONE (18:09)
[2020-04-08] MEDS ORDERED: ONDANSETRON 4 MG/2 ML VIAL IVP PRN (18:13)
[2020-04-08] MEDS ORDERED: INSULIN REGULAR 100 UNIT in SODIUM CHLORIDE 0.9% 100 ML IV SCH (18:15)
[2020-04-08] MEDS ORDERED: HEPARIN SOD,PORK IN 0.45% NACL 25,000 UNIT in 0.45% NACL 1 250ML.BAG IV SCH (18:15)
[2020-04-08 18:26] LABS: Glucose,Whole Blood 346 mg/dL (75-99)
[2020-04-08] MEDS: SODIUM CHLORIDE 0.9% 1,000 ML IV SCH (18:27)
[2020-04-08 19:47] LABS: Glucose,Whole Blood 259 mg/dL (75-99)
[2020-04-08] MEDS ORDERED: D5-0.45% NACL WITH KCL 20MEQ/L 1,000 ML IV SCH (20:00)
[2020-04-08 20:42] LABS: African American GFR (CKD) >90 (>60 ml/min/1.73 sqM); Anion Gap 9 mmol/L; Blood Urea Nitrogen 17 mg/dL (9-20); Carbon Dioxide 28 mmol/L (22-30); Chloride 105 mmol/L (98-107); Glucose 229 mg/dL (74-99); Non-African American GFR(CKD) >90 (>60 ml/min/1.73 sqM); Phosphorus 1.7 mg/dL (2.5-4.5); Potassium 3.4 mmol/L (3.5-5.1); Sodium 142 mmol/L (137-145)
[2020-04-08 20:47] LABS: Glucose,Whole Blood 216 mg/dL (75-99)
[2020-04-08] MEDS ORDERED: Phosphorus Replacement Protoco 1 EACH MISC MISCELLANE PRN (21:39)
[2020-04-08 21:51] LABS: Glucose,Whole Blood 170 mg/dL (75-99)
[2020-04-08] MEDS: DULoxetine HCL 60 MG CAPSULE.DR PO SCH (21:57)
[2020-04-08] MEDS: METOPROLOL TARTRATE 25 MG TAB PO SCH (21:58)
[2020-04-08] MEDS: oxyCODONE ER 80 MG TAB.ER.12H PO SCH (21:58)
[2020-04-08] MEDS: GABAPENTIN 300 MG CAP PO SCH (21:58)
[2020-04-08] MEDS: INSULIN ASPART (NovoLOG) 100 UNIT/ML VIAL SQ SCH (22:00)
--- NOTE | 2020-04-08 22:25 | P.HPIM ---
History of Present Illness H&P Date: 04/08/20 Chief Complaint: generalized weakness, Nausea and vomiting 65 year old male with CAD s/p CABG July 2019, DM , chronic low back pain , and afib on anticoagulation patient comes in by ambulance , due to feeling extremely weak along with repeated nausea and vomiting, His family called EMS to bring him to the hospital for evaluation. he was fine up until yesterday Today he felt sick since morning, unable to eat or drink anything, no hematamesis or GI bleed, but repeated vomiting, abd pain, and feeling generalized weakness, he denies any fever, chills, URI sympotms, coughing, chest pain or trouble breathing. he could not take any of his medications, he denies any loss of smell or taste sensation, denies diarrhea, or new body aches (he has chronic low back and leg pains) he denies any known sick contact. in the ED , he was found to be in DKA, EKG showed sinus tachy, but he did not take any of his meds today including metoprolol . cardiology notified, initial trops negative then became positive, cardiology recommended keeping patient on heparin drip Review of Systems Pertinent positives as noted in HPI. All other systems were reviewed and are negative Past Medical History Past Medical History: Atrial Fibrillation, Coronary Artery Disease (CAD), Chest Pain / Angina, Diabetes Mellitus, GERD/Reflux, Hyperlipidemia, Hypertension, Myocardial Infarction ([place]) Additional Past Medical History / Comment(s): Pt had CABG 07/2019 and had post op Afib/UTI with pseudomonas aeruginosa, ischemic cardiomyopathy, IDDM type II, past R scrotal abscess with sepsis, chronic lower back pain and bilateral leg pain, Last Myocardial Infarction Date:: 03/20/15 History of Any Multi-Drug Resistant Organisms: None Reported Past Surgical History: Back Surgery, Coronary Bypass/CABG, Heart Catheterizatio n, Heart Catheterization With Stent, Orthopedic Surgery Additional Past Surgical History / Comment(s): 08/23/2019 CABG 3 vessels, PCI with total of 5 stents, L ankle ligament repair, R leg ORIF, low back surgery, colonoscopy. Past Anesthesia/Blood Transfusion Reactions: No Reported Reaction Additional Past Anesthesia/Blood Transfusion Reaction / Comment(s): Pt has received blood in past without reaction. Date of Last Stent Placement:: 02/2015 Past Psychological History: No Psychological Hx Reported Smoking Status: Former smoker Past Alcohol Use History: None Reported Past Drug Use History: Marijuana - Past Family History Sister(s) Family Medical History: Coronary Artery Disease (CAD), Hypertension Father Family Medical History: Coronary Artery Disease (CAD), Diabetes Mellitus, Deep Vein Thrombosis (DVT), Hypertension Additional Family Medical History / Comment(s): Father at age 58yrs. He of blood clot from leg injury that went to his heart. Medications and Allergies Home Medications Medication Instructions Recorded Confirmed Type Pantoprazole [Protonix] 40 mg PO AC-BRKFST #30 tablet. 09/01/19 04/08/20 Rx Atorvastatin [Lipitor] 40 mg PO DAILY #30 tab 10/24/19 04/08/20 Rx Clopidogrel [Plavix] 75 mg PO DAILY #30 tab 10/24/19 04/08/20 Rx Nitroglycerin Sl Tabs [Nitrostat] 0.4 mg SUBLINGUAL Q5M PRN tab 10/24/19 04/08/20 Rx Spironolactone [Aldactone] 25 mg PO DAILY #30 tab 10/24/19 04/08/20 Rx DULoxetine HCL [Cymbalta] 60 mg PO BID 11/16/19 04/08/20 History Semaglutide [Ozempic] 0.25 mg SQ WE 11/16/19 04/08/20 History glipiZIDE [Glucotrol] 5 mg PO AC-BID 11/16/19 04/08/20 History metFORMIN HCL 1,000 mg PO BID 11/16/19 04/08/20 History Apixaban [Eliquis] 5 mg PO BID tab 11/18/19 04/08/20 Rx Gabapentin 300 mg PO BID 03/01/20 04/08/20 History Insulin Aspart [NovoLOG Flexpen] 10 units SQ AC-BID 03/01/20 04/08/20 History Potassium Chloride [Klor-Con 20] 20 meq PO BID 03/01/20 04/08/20 History lisinopriL 30 mg PO DAILY 03/01/20 04/08/20 History oxyCODONE ER [OxyCONTIN] 80 mg PO Q12H 03/01/20 04/08/20 History oxyCODONE HCL [oxyCODONE HCL (IR)] 15 mg PO Q8H 03/01/20 04/08/20 History Metoprolol Tartrate 75 mg PO BID #180 tab 03/03/20 04/08/20 Rx Allergies Allergy/AdvReac Type Severity Reaction Status Date / Time No Known Allergies Allergy Verified 04/08/20 17:41 Physical Exam Vitals: Vital Signs Temp Pulse Resp BP Pulse Ox 04/08/20 18:43 110 H 16 130/89 100 04/08/20 17:50 99 18 116/81 100 04/08/20 17:04 135 H 22 163/99 100 04/08/20 16:30 97.3 F L 151 H 24 191/113 100 Intake and Output 04/08/20 04/08/20 04/08/20 06:59 14:59 22:59 Other: Weight 77.111 kg Constitutional: No acute distress, patient looks lethargic but easily arousable , answers questions appropriately and cooperative following commands Eyes: Anicteric sclerae, moist conjunctiva, Pupils equal round reactive to light ENMT: NC/AT Oropharynx clear, no erythema, or exudates Neck: Supple, FROM, no masses, or JVD No carotid bruits No thyromegaly Lungs: Clear to auscultation Clear to percussion Normal respiratory effort, no accessory muscle use Cardiovascular: Heart regular in rate and rhythm, No murmurs, gallops, or rubs No peripheral edema Abdominal: Soft Nontender, no guarding, rebound or rigidity Abdomen moving with respiration Normoactive bowel sounds No hepatomegaly, No splenomegaly No palpable mass No abdominal wall hernia noted Skin: chronic skin changes over bilateral legs, otherwise Normal temperature, tone, texture, turgor No induration No subcutaneous nodules No ulcers Extremities: No digital cyanosis No clubbing Pedal pulses intact and symmetrical Radial pulses intact and symmetrical No calf tenderness Psychiatric: lethargic , easily arousable , and oriented to person, and place Neuro Muscles Strength 4/5 in all 4 extremities Sensation to light touch grossly present throughout Cranial nerves II-XII grossly intact No focal sensory deficits Lymphatics: no palpable cervical or supraclavicular , or inguinal lymph nodes Results CBC & Chem 7: 04/08/20 17:49 04/08/20 20:09 Labs: Abnormal Lab Results - Last 24 Hours (Table) 04/08/20 04/08/20 04/08/20 Range/Units 16:49 16:51 16:53 WBC (3.8-10.6) k/uL Neutrophils # (1.3-7.7) k/uL Lymphocytes # (1.0-4.8) k/uL VBG pH 7.48 H (7.31-7.41) VBG pCO2 27 L (37-51) mmHg VBG HCO3 20 L (24-28) mmol/L Carbon Dioxide 16 L (22-30) mmol/L Glucose 464 H (74-99) mg/dL POC Glucose (mg/dL) 411 H (75-99) mg/dL Plasma Lactic Acid Chined[place] (0.7-2.0) mmol/L Calcium 10.4 H (8.4-10.2) mg/dL Magnesium 1.4 L (1.6-2.3) mg/dL Alkaline Phosphatase 131 H (38-126) U/L Creatine Kinase 46 L (55-170) U/L Urine Protein (Negative) Urine Glucose (UA) (Negative) Urine Ketones (Negative) Urine Blood (Negative) 04/08/20 04/08/20 04/08/20 Range/Units 16:53 17:04 17:49 WBC 14.1 H (3.8-10.6) k/uL Neutrophils # 13.2 H (1.3-7.7) k/uL Lymphocytes # 0.3 L (1.0-4.8) k/uL VBG pH (7.31-7.41) VBG pCO2 (37-51) mmHg VBG HCO3 (24-28) mmol/L Carbon Dioxide (22-30) mmol/L Glucose (74-99) mg/dL POC Glucose (mg/dL) (75-99) mg/dL Plasma Lactic Acid Chinedu 6.9 H* (0.7-2.0) mmol/L Calcium (8.4-10.2) mg/dL Magnesium (1.6-2.3) mg/dL Alkaline Phosphatase (38-126) U/L Creatine Kinase (55-170) U/L Urine Protein 3+ H (Negative) Urine Glucose (UA) 4+ H (Negative) Urine Ketones 3+ H (Negative) Urine Blood Small H (Negative) 04/08/20 04/08/20 Range/Units 18:14 19:46 WBC (3.8-10.6) k/uL Neutrophils # (1.3-7.7) k/uL Lymphocytes # (1.0-4.8) k/uL VBG pH (7.31-7.41) VBG pCO2 (37-51) mmHg VBG HCO3 (24-28) mmol/L Carbon Dioxide (22-30) mmol/L Glucose (74-99) mg/dL POC Glucose (mg/dL) 346 H 259 H (75-99) mg/dL Plasma Lactic Acid Chinedu (0.7-2.0) mmol/L Calcium (8.4-10.2) mg/dL Magnesium (1.6-2.3) mg/dL Alkaline Phosphatase (38-126) U/L Creatine Kinase (55-170) U/L Urine Protein (Negative) Urine Glucose (UA) (Negative) Urine Ketones (Negative) Urine Blood (Negative) Assessment and Plan Assessment: DKA , unknown underlying cause NSTEMI, with strong cardiac history hypophosphatemia hypomagnesemia hypokalemia reactive leukocytosis chronic conditions afib on anticoagulation history of CAD s/p CABG GERD chronic low back and legs pain patient was managed with insulin drip , following our DKA protocol now being transitioned to subc insulin (Gap closed, bicarb corrected) resume gentle IVF hydration heparin drip resume home meds pain control with home dose oxycodone hold oral anticoagulation (currently on heparin drip per cardio) cardiac nurse specialist cardiology consult trend trops ASA , statin , metoprolol , ACEi replace electrolytes check COVID 19 CODE STATUS:full code DVT prophylaxis: on heparin drip for NSTEMI Discussed with: Patient, ER, RN Anticipated length of stay > than [address]: home A total of 75 minutes was spent on the care of this complex patient more than 50% of the time was spent in counseling and care coordination.
[2020-04-08] MEDS: SODIUM PHOSPHATE 10 MMOL in SODIUM CHLORIDE 0.9% 250 ML IVPB SCH (22:45)
[2020-04-08] MEDS: INSULIN DETEMIR (LEVEMIR) 100 UNIT/ML SYR SQ SCH (22:46)
[2020-04-09 00:41] LABS: Phosphorus 2.6 mg/dL (2.5-4.5)
[2020-04-09] MEDS: SODIUM CHLORIDE 0.9% 1,000 ML IV SCH (01:16)
[2020-04-09] MEDS: SODIUM PHOSPHATE 10 MMOL in SODIUM CHLORIDE 0.9% 250 ML IVPB SCH (01:17)
[2020-04-09 02:02] LABS: Glucose,Whole Blood 128 mg/dL (75-99)
[2020-04-09] MEDS: ASPIRIN 325 MG TAB PO SCH ×2 (03:39→07:52)
[2020-04-09 06:10] LABS: Glucose,Whole Blood 170 mg/dL (75-99)
[2020-04-09] MEDS: INSULIN ASPART (NovoLOG) 100 UNIT/ML VIAL SQ SCH ×4 (06:20→20:46)
[2020-04-09] MEDS: PANTOPRAZOLE 40 MG TABLET PO SCH (06:20)
[2020-04-09 07:32] LABS: Basophils # (A) 0.1 k/uL (0-0.2); Basophils % (A) 0 %; Eosinophils # (A) 0.1 k/uL (0-0.7); Eosinophils % (A) 1 %; HCT 39.9 % (39.0-53.0); HGB 13.4 gm/dL (13.0-17.5); Lymphocytes # (A) 1.8 k/uL (1.0-4.8); Lymphocytes % (A) 10 %; MCH 31.7 pg (25.0-35.0); MCHC 33.5 g/dL (31.0-37.0); MCV 94.7 fL (80.0-100.0); Monocytes # (A) 1.4 k/uL (0-1.0); Monocytes % (A) 8 %; Neutrophils # (A) 14.3 k/uL (1.3-7.7); Neutrophils % (A) 80 %; Platelet Count 367 k/uL (150-450); RBC 4.22 m/uL (4.30-5.90); RDW 13.4 % (11.5-15.5); WBC 17.8 k/uL (3.8-10.6)
[2020-04-09 07:43] LABS: ALT 12 U/L (4-49); AST 25 U/L (17-59); African American GFR (CKD) >90 (>60 ml/min/1.73 sqM); Albumin 3.5 g/dL (3.5-5.0); Alkaline Phosphatase 80 U/L (38-126); Anion Gap 8 mmol/L; Blood Urea Nitrogen 17 mg/dL (9-20); Calcium 8.7 mg/dL (8.4-10.2); Carbon Dioxide 25 mmol/L (22-30); Chloride 107 mmol/L (98-107); Glucose 173 mg/dL (74-99); Non-African American GFR(CKD) >90 (>60 ml/min/1.73 sqM); Potassium 3.6 mmol/L (3.5-5.1); Sodium 140 mmol/L (137-145); Total Bilirubin 0.5 mg/dL (0.2-1.3); Total Protein 6.3 g/dL (6.3-8.2)
[2020-04-09] MEDS: oxyCODONE ER 80 MG TAB.ER.12H PO SCH ×2 (07:50→23:24)
[2020-04-09] MEDS: DULoxetine HCL 60 MG CAPSULE.DR PO SCH ×2 (07:50→20:45)
[2020-04-09] MEDS: METOPROLOL TARTRATE 25 MG TAB PO SCH ×2 (07:50→20:45)
[2020-04-09] MEDS: SPIRONOLACTONE 25 MG TAB PO SCH (07:51)
[2020-04-09] MEDS: ATORVASTATIN 40 MG TAB PO SCH (07:51)
[2020-04-09] MEDS: lisinopriL 10 MG TAB PO SCH (07:51)
[2020-04-09] MEDS: GABAPENTIN 300 MG CAP PO SCH ×2 (07:51→20:45)
[2020-04-09] MEDS ORDERED: CLOPIDOGREL 75 MG TAB PO SCH (09:00)
--- NOTE | 2020-04-09 11:16 | P.CRDCN ---
History of Present Illness Consult date: 04/09/20 History of present illness: CHIEF COMPLAINT: Abnormal EKG HISTORY OF PRESENT ILLNESS: This is a 65-year-old male with a past medical history significant for hypertension, hyperlipidemia, paroxysmal atrial fibrillation, systolic congestive heart failure, ischemic cardiomyopathy, and coronary artery disease with previous PCI to the RCA in 2007 and 2014 and CABG 3 in July 2019. Patient follows in the office with Dr. Hua. He was last seen in the office in November 2019. He states he now follows with a woman [employer] but is unable to recall her name. The patient believes he had a stress test completed recently. There has not been a stress test completed at this facility or at [facility] recently. We have been asked to see the patient in consultation for abnormal EKG. Patient is currently admitted to the hospital secondary to DKA. Patient examined this morning at the bedside. He denies chest pain or pressure. Denies shortness of breath. Denies dizziness or lightheadedness. DIAGNOSTICS: EKG reveals sinus tachycardia with no acute signs of ischemia in comparison to old EKG Chest xray no active cardiopulmonary disease Laboratory data: WBC 17.8. Hemoglobin 13.4. Platelet count 367. Sodium 140. Potassium 3.6. BUN 8. Creatinine 17. Troponin 0.031. 0.063. 0.089. Current home cardiac medications include lisinopril 30 mg daily, Aldactone 25 mg daily, metoprolol 75 mg twice a day, Plavix 75 mg daily, Lipitor 40 g daily, and Eliquis 5 mg twice a day Echo Cardizem completed on 03/02/2020 revealed ejection fraction 40-45%. REVIEW OF SYSTEMS: At the time of my exam: CONSTITUTIONAL: Denies fever or chills. HEENT: Denies blurred vision, vision changes, or eye pain. Denies hemoptysis CARDIOVASCULAR: Denies chest pain, orthopnea, PND or palpitations RESPIRATORY: No shortness of breath. GASTROINTESTINAL: Denies abdominal pain. Denies nausea or vomiting. HEMATOLOGIC: Denies bleeding disorders. GENITOURINARY: Denies any blood in urine. SKIN: Denies pruitis. Denies rash. PHYSICAL EXAM: VITAL SIGNS: Reviewed. GENERAL: Well-developed in no acute distress. HEENT: Head is normocephalic. Pupils are equal, round. Sclerae anicteric. Mucous membranes of the mouth are moist. Neck supple. No JVD or thyromegaly LUNGS: Respirations even and unlabored. Lungs essentially clear to auscultation bilaterally. HEART: Regular rate and rhythm. S1 and S2 heard. ABDOMEN: Soft. Nondistended. Nontender. EXTREMITIES: Normal range of motion. No clubbing or cyanosis. Peripheral pulses intact. No lower extremity edema NEUROLOGIC: Awake and alert. Oriented x 3. ASSESSMENT: DKA Abnormal troponins, no evidence of acute coronary syndrome Coronary artery disease with previous PCI to RCA in 2007 and 2014 and CABG 3 in July 2019 Paroxysmal atrial fibrillation, on anticoagulation with Eliquis Ischemic cardiomyopathy, ejection fraction 40-45% Chronic systolic congestive heart failure, currently euvolemic Hypertension Hyperlipidemia Marijuana use PLAN: An acute coronary event has been ruled out No need to repeat echocardiogram as this was performed in February 2020 Discontinue IV heparin Resume Eliquis Discontinue Plavix. Decrease aspirin to 81 mg daily Continue additional cardiac medications Obtain an additional troponin level Further recommendations pending patient's course. Patient may be discharged home from a cardiac standpoint pending additional troponin level Nurse practitioner note has been reviewed by physician. Signing provider agrees with the documented findings, assessment, and plan of care. Past Medical History Past Medical History: Atrial Fibrillation, Coronary Artery Disease (CAD), Chest Pain / Angina, Diabetes Mellitus, GERD/Reflux, Hyperlipidemia, Hypertension, Myocardial Infarction ([place]) Additional Past Medical History / Comment(s): Pt had CABG 07/2019 and had post op Afib/UTI with pseudomonas aeruginosa, ischemic cardiomyopathy, IDDM type II, past R scrotal abscess with sepsis, chronic lower back pain and bilateral leg pain, Last Myocardial Infarction Date:: 03/20/15 History of Any Multi-Drug Resistant Organisms: None Reported Past Surgical History: Back Surgery, Coronary Bypass/CABG, Heart Catheterization, Heart Catheterization With Stent, Orthopedic Surgery Additional Past Surgical History / Comment(s): 08/23/2019 CABG 3 vessels, PCI with total of 5 stents, L ankle ligament repair, R leg ORIF, low back surgery, colonoscopy. Past Anesthesia/Blood Transfusion Reactions: No Reported Reaction Additional Past Anesthesia/Blood Transfusion Reaction / Comment(s): Pt has received blood in past without reaction. Date of Last Stent Placement:: 02/2015 Past Psychological History: No Psychological Hx Reported Additional Psychological History / Comment(s): Pt resides with his sister. He has a cane to ambulate and a glucometer. He has home care thru [facility]. He cannot currently drive d/t recent CABG, his [facility] takes him to [facility]. Smoking Status: Former smoker Past Alcohol Use History: None Reported Additional Past Alcohol Use History / Comment(s): Pt started smoking in 1968 and quit in 2014. He was a 2 ppd smoker. Pt states he was a heavy drinker but quit in 2001. Past Drug Use History: Marijuana Additional Drug Use History / Comment(s): Occasional marijuana. - Past Family History Sister(s) Family Medical History: Coronary Artery Disease (CAD), Hypertension Father Family Medical History: Coronary Artery Disease (CAD), Diabetes Mellitus, Deep Vein Thrombosis (DVT), Hypertension Additional Family Medical History / Comment(s): Father at age 58yrs. He of blood clot from leg injury that went to his heart. Medications and Allergies Home Medications Medication Instructions Recorded Confirmed Type Pantoprazole [Protonix] 40 mg PO AC-BRKFST #30 tablet. 09/01/19 04/08/20 Rx Atorvastatin [Lipitor] 40 mg PO DAILY #30 tab 10/24/19 04/08/20 Rx Clopidogrel [Plavix] 75 mg PO DAILY #30 tab 10/24/19 04/08/20 Rx Nitroglycerin Sl Tabs [Nitrostat] 0.4 mg SUBLINGUAL Q5M PRN tab 10/24/19 04/08/20 Rx Spironolactone [Aldactone] 25 mg PO DAILY #30 tab 10/24/19 04/08/20 Rx DULoxetine HCL [Cymbalta] 60 mg PO BID 11/16/19 04/08/20 History Semaglutide [Ozempic] 0.25 mg SQ WE 11/16/19 04/08/20 History glipiZIDE [Glucotrol] 5 mg PO AC-BID 11/16/19 04/08/20 History metFORMIN HCL 1,000 mg PO BID 11/16/19 04/08/20 History Apixaban [Eliquis] 5 mg PO BID tab 11/18/19 04/08/20 Rx Gabapentin 300 mg PO BID 03/01/20 04/08/20 History Insulin Aspart [NovoLOG Flexpen] 10 units SQ AC-BID 03/01/20 04/08/20 History Potassium Chloride [Klor-Con 20] 20 meq PO BID 03/01/20 04/08/20 History lisinopriL 30 mg PO DAILY 03/01/20 04/08/20 History oxyCODONE ER [OxyCONTIN] 80 mg PO Q12H 03/01/20 04/08/20 History oxyCODONE HCL [oxyCODONE HCL (IR)] 15 mg PO Q8H 03/01/20 04/08/20 History Metoprolol Tartrate 75 mg PO BID #180 tab 03/03/20 04/08/20 Rx Allergies Allergy/AdvReac Type Severity Reaction Status Date / Time No Known Allergies Allergy Verified 04/08/20 17:41 Physical Exam Vitals: Vital Signs Temp Pulse Pulse Resp BP BP Pulse Ox 04/09/20 07:53 98.7 F 73 18 152/80 97 04/09/20 04:00 98.9 F 83 18 146/77 96 04/09/20 00:00 99.2 F 88 18 137/83 99 04/08/20 20:41 98.8 F 122 H 18 155/88 100 04/08/20 20:21 104 H 100 04/08/20 18:43 110 H 16 130/89 100 04/08/20 17:50 99 18 116/81 100 04/08/20 17:04 135 H 22 163/99 100 04/08/20 16:30 97.3 F L 151 H 24 191/113 100 Intake and Output 04/08/20 04/09/20 04/09/20 22:59 06:59 14:59 Intake Total 26.479 62.484 Output Total 620 250 Balance 26.479 -557.516 -250 Intake: Intake, IV Titration 26.479 62.484 Amount Heparin Sod,Pork in 0.45% 62.484 NaCl 25,000 unit In 0.45 % NaCl 1 250ml.bag @ 12 UNITS/KG/HR 9.253 mls/hr IV .Q24H [facility] Rx#: [id number] Insulin Regular 100 unit 26.479 In Sodium Chloride 0.9% 100 ml @ 0.1 UNITS/KG/HR 7.788 mls/hr IV .[id number] [facility] Rx#:[id number] Output: Urine 620 250 Other: Voiding Method Urinal # Voids 2 Weight 77.111 kg 73 kg Results 04/09/20 06:52 04/09/20 06:52 Cardiac Enzymes 04/08/20 04/08/20 04/08/20 Range/Units 16:53 16:53 20:09 AST 23 (17-59) U/L Troponin I 0.031 0.063 H* (0.000-0.034) ng/mL 04/08/20 04/09/20 Range/Units 23:57 06:52 AST 25 (17-59) U/L Troponin I 0.089 H* (0.000-0.034) ng/mL Coagulation 04/08/20 04/08/20 04/09/20 Range/Units 16:53 23:57 06:52 PT 10.2 (9.0-12.0) sec APTT 24.4 43.0 H 45.9 H (22.0-30.0) sec CBC 04/08/20 04/09/20 Range/Units 17:49 06:52 WBC 14.1 H 17.8 H (3.8-10.6) k/uL RBC 4.47 4.22 L (4.30-5.90) m/uL Hgb 14.0 13.4 (13.0-17.5) gm/dL Hct 42.1 39.9 (39.0-53.0) % Plt Count 425 367 (150-450) k/uL Comprehensive Metabolic Panel 04/08/20 04/08/20 04/08/20 Range/Units 16:53 20:09 23:57 Sodium 141 142 (137-145) mmol/L Potassium 3.6 3.4 L (3.5-5.1) mmol/L Chloride 99 105 (98-107) mmol/L Carbon Dioxide 16 L 28 (22-30) mmol/L BUN 18 17 (9-20) mg/dL Creatinine 0.83 0.78 (0.66-1.25) mg/dL Glucose 464 H 229 H 128 H (74-99) mg/dL Calcium 10.4 H (8.4-10.2) mg/dL AST 23 (17-59) U/L ALT 24 (4-49) U/L Alkaline Phosphatase 131 H (38-126) U/L Total Protein 8.0 (6.3-8.2) g/dL Albumin 4.7 (3.5-5.0) g/dL 04/09/20 Range/Units 06:52 Sodium 140 (137-145) mmol/L Potassium 3.6 (3.5-5.1) mmol/L Chloride 107 (98-107) mmol/L Carbon Dioxide 25 (22-30) mmol/L BUN 17 (9-20) mg/dL Creatinine 0.70 (0.66-1.25) mg/dL Glucose 173 H (74-99) mg/dL Calcium 8.7 (8.4-10.2) mg/dL AST 25 (17-59) U/L ALT 12 (4-49) U/L Alkaline Phosphatase 80 (38-126) U/L Total Protein 6.3 (6.3-8.2) g/dL Albumin 3.5 (3.5-5.0) g/dL Current Medications Generic Name Dose Route Start Last Admin Trade Name Freq PRN Reason Stop Dose Admin Apixaban 5 mg 04/09/20 11:00 Apixaban 5 Mg Tab PO BID [facility] Aspirin 81 mg 04/10/20 09:00 Aspirin 81 Mg PO DAILY [facility] Atorvastatin Calcium 40 mg 04/09/20 09:00 04/09/20 07:51 Atorvastatin 40 Mg Tab PO 40 mg DAILY [facility] Administration Duloxetine HCl 60 mg 04/08/20 21:45 04/09/20 07:50 Duloxetine Hcl 60 Mg Capsule.Dr PO 60 mg BID [facility] Administration Gabapentin 300 mg 04/08/20 21:45 04/09/20 07:51 Gabapentin 300 Mg Cap PO 300 mg BID [facility] Administration Insulin Aspart 0 unit 04/08/20 21:38 04/09/20 06:20 Insulin Aspart (Novolog) 100 Unit/Ml Vial SQ 2 unit ACHS [facility] Administration Protocol Insulin Detemir 10 unit 04/08/20 21:45 04/08/20 22:46 Insulin Detemir (Levemir) 100 Unit/Ml Syr SQ 10 unit HS [facility] Administration Lisinopril 30 mg 04/09/20 09:00 04/09/20 07:51 Lisinopril 10 Mg Tab PO 30 mg DAILY [facility] Administration Metoprolol Tartrate 75 mg 04/08/20 21:45 04/09/20 07:50 Metoprolol Tartrate 25 Mg Tab PO 75 mg BID [facility] Administration Miscellaneous Information 1 each 04/08/20 21:39 Phosphorus Replacement Protoco 1 Each Misc MISCELLANE DAILY PRN Per Protocol Protocol Ondansetron HCl 4 mg 04/08/20 18:13 04/08/20 21:18 Ondansetron 4 Mg/2 Ml Vial IVP 4 mg Q8HR PRN Administration Nausea And Vomiting Oxycodone HCl 80 mg 04/08/20 21:45 04/09/20 07:50 Oxycodone Er 80 Mg Tab.Er.12h PO 80 mg Q12H [facility] Administration Pantoprazole Sodium 40 mg 04/09/20 07:30 04/09/20 06:20 Pantoprazole 40 Mg Tablet PO 40 mg AC-BRKFST [facility] Administration Spironolactone 25 mg 04/09/20 09:00 04/09/20 07:51 Spironolactone 25 Mg Tab PO 25 mg DAILY [facility] Administration Intake and Output 04/08/20 04/09/20 04/09/20 22:59 06:59 14:59 Intake Total 26.479 62.484 Output Total 620 250 Balance 26.479 -557.516 -250 Intake: Intake, IV Titration 26.479 62.484 Amount Heparin Sod,Pork in 0.45% 62.484 NaCl 25,000 unit In 0.45 % NaCl 1 250ml.bag @ 12 UNITS/KG/HR 9.253 mls/hr IV .Q24H [facility] Rx#: [id number] Insulin Regular 100 unit 26.479 In Sodium Chloride 0.9% 100 ml @ 0.1 UNITS/KG/HR 7.788 mls/hr IV .[id number] [facility] Rx#:[id number] Output: Urine 620 250 Other: Voiding Method Urinal # Voids 2 Weight 77.111 kg 73 kg 04/09/20 06:52 04/09/20 06:52
[2020-04-09] MEDS: APIXABAN 5 MG TAB PO SCH ×2 (11:18→20:45)
[2020-04-09 11:40] LABS: Glucose,Whole Blood 205 mg/dL (75-99)
--- NOTE | 2020-04-09 13:46 | P.PN ---
Subjective Progress Note Date: 04/09/20 Patient is doing well today. He denies any chest pain or shortness of breath. Blood glucose within acceptable range. Objective - Vital Signs Vital signs: Vital Signs Temp 98.8 F 04/09/20 11:18 Pulse 73 04/09/20 11:18 Resp 18 04/09/20 11:18 BP 136/73 04/09/20 11:18 Pulse Ox 96 04/09/20 11:18 Intake & Output 04/08/20 04/09/20 04/09/20 18:59 06:59 18:59 Intake Total 88.963 Output Total 620 250 Balance -531.037 -250 Weight 77.111 kg 73 kg Intake: Intake, IV Titration 88.963 Amount Heparin Sod,Pork in 0.45% 62.484 NaCl 25,000 unit In 0.45 % NaCl 1 250ml.bag @ 12 UNITS/KG/HR 9.253 mls/hr IV .Q24H GABBY Rx#: [id number] Insulin Regular 100 unit 26.479 In Sodium Chloride 0.9% 100 ml @ 0.1 UNITS/KG/HR 7.788 mls/hr IV .[id number] GABBY Rx#:[id number] Output: Urine 620 250 Other: Voiding Method Urinal # Voids 2 - Exam General: The patient is awake and alert, in no distress Eye: there is normal conjunctiva bilaterally. Neck: The neck is supple, there is no JVD. Cardiovascular: Normal S1-S2, no S3-S4, no murmurs. Respiratory: Lungs clear to auscultation bilaterally Gastrointestinal: Abdomen is soft, nontender Musculoskeletal: There is no pedal edema. Neurological:. Speech is normal. Skin: Skin is warm and dry - Labs CBC & Chem 7: 04/09/20 06:52 04/09/20 06:52 Labs: Abnormal Lab Results - Last 24 Hours (Table) 04/08/20 04/08/20 04/08/20 Range/Units 16:49 16:51 16:53 WBC (3.8-10.6) k/uL RBC (4.30-5.90) m/uL Neutrophils # (1.3-7.7) k/uL Lymphocytes # (1.0-4.8) k/uL Monocytes # (0-1.0) k/uL APTT (22.0-30.0) sec VBG pH 7.48 H (7.31-7.41) VBG pCO2 27 L (37-51) mmHg VBG HCO3 20 L (24-28) mmol/L Potassium (3.5-5.1) mmol/L Carbon Dioxide 16 L (22-30) mmol/L Glucose 464 H (74-99) mg/dL POC Glucose (mg/dL) 411 H (75-99) mg/dL Plasma Lactic Acid Chinedu (0.7-2.0) mmol/L Calcium 10.4 H (8.4-10.2) mg/dL Phosphorus (2.5-4.5) mg/dL Magnesium 1.4 L (1.6-2.3) mg/dL Alkaline Phosphatase 131 H (38-126) U/L Creatine Kinase 46 L (55-170) U/L Troponin I (0.000-0.034) ng/mL Urine Protein (Negative) Urine Glucose (UA) (Negative) Urine Ketones (Negative) Urine Blood (Negative) 04/08/20 04/08/20 04/08/20 Range/Units 16:53 17:04 17:49 WBC 14.1 H (3.8-10.6) k/uL RBC (4.30-5.90) m/uL Neutrophils # 13.2 H (1.3-7.7) k/uL Lymphocytes # 0.3 L (1.0-4.8) k/uL Monocytes # (0-1.0) k/uL APTT (22.0-30.0) sec VBG pH (7.31-7.41) VBG pCO2 (37-51) mmHg VBG HCO3 (24-28) mmol/L Potassium (3.5-5.1) mmol/L Carbon Dioxide (22-30) mmol/L Glucose (74-99) mg/dL POC Glucose (mg/dL) (75-99) mg/dL Plasma Lactic Acid Chinedu 6.9 H* (0.7-2.0) mmol/L Calcium (8.4-10.2) mg/dL Phosphorus (2.5-4.5) mg/dL Magnesium (1.6-2.3) mg/dL Alkaline Phosphatase (38-126) U/L Creatine Kinase (55-170) U/L Troponin I (0.000-0.034) ng/mL Urine Protein 3+ H (Negative) Urine Glucose (UA) 4+ H (Negative) Urine Ketones 3+ H (Negative) Urine Blood Small H (Negative) 04/08/20 04/08/20 04/08/20 Range/Units 18:14 19:46 20:09 WBC (3.8-10.6) k/uL RBC (4.30-5.90) m/uL Neutrophils # (1.3-7.7) k/uL Lymphocytes # (1.0-4.8) k/uL Monocytes # (0-1.0) k/uL APTT (22.0-30.0) sec VBG pH (7.31-7.41) VBG pCO2 (37-51) mmHg VBG HCO3 (24-28) mmol/L Potassium 3.4 L (3.5-5.1) mmol/L Carbon Dioxide (22-30) mmol/L Glucose 229 H (74-99) mg/dL POC Glucose (mg/dL) 346 H 259 H (75-99) mg/dL Plasma Lactic Acid Chinedu (0.7-2.0) mmol/L Calcium (8.4-10.2) mg/dL Phosphorus 1.7 L (2.5-4.5) mg/dL Magnesium (1.6-2.3) mg/dL Alkaline Phosphatase (38-126) U/L Creatine Kinase (55-170) U/L Troponin I (0.000-0.034) ng/mL Urine Protein (Negative) Urine Glucose (UA) (Negative) Urine Ketones (Negative) Urine Blood (Negative) 04/08/20 04/08/20 04/08/20 Range/Units 20:09 20:46 21:50 WBC (3.8-10.6) k/uL RBC (4.30-5.90) m/uL Neutrophils # (1.3-7.7) k/uL Lymphocytes # (1.0-4.8) k/uL Monocytes # (0-1.0) k/uL APTT (22.0-30.0) sec VBG pH (7.31-7.41) VBG pCO2 (37-51) mmHg VBG HCO3 (24-28) mmol/L Potassium (3.5-5.1) mmol/L Carbon Dioxide (22-30) mmol/L Glucose (74-99) mg/dL POC Glucose (mg/dL) 216 H 170 H (75-99) mg/dL Plasma Lactic Acid Chinedu (0.7-2.0) mmol/L Calcium (8.4-10.2) mg/dL Phosphorus (2.5-4.5) mg/dL Magnesium (1.6-2.3) mg/dL Alkaline Phosphatase (38-126) U/L Creatine Kinase (55-170) U/L Troponin I 0.063 H* (0.000-0.034) ng/mL Urine Protein (Negative) Urine Glucose (UA) (Negative) Urine Ketones (Negative) Urine Blood (Negative) 04/08/20 04/08/20 04/08/20 Range/Units 23:57 23:57 23:57 WBC (3.8-10.6) k/uL RBC (4.30-5.90) m/uL Neutrophils # (1.3-7.7) k/uL Lymphocytes # (1.0-4.8) k/uL Monocytes # (0-1.0) k/uL APTT 43.0 H (22.0-30.0) sec VBG pH (7.31-7.41) VBG pCO2 (37-51) mmHg VBG HCO3 (24-28) mmol/L Potassium (3.5-5.1) mmol/L Carbon Dioxide (22-30) mmol/L Glucose 128 H (74-99) mg/dL POC Glucose (mg/dL) (75-99) mg/dL Plasma Lactic Acid Chinedu (0.7-2.0) mmol/L Calcium (8.4-10.2) mg/dL Phosphorus (2.5-4.5) mg/dL Magnesium (1.6-2.3) mg/dL Alkaline Phosphatase (38-126) U/L Creatine Kinase (55-170) U/L Troponin I 0.089 H* (0.000-0.034) ng/mL Urine Protein (Negative) Urine Glucose (UA) (Negative) Urine Ketones (Negative) Urine Blood (Negative) 04/09/20 04/09/20 04/09/20 Range/Units 02:00 06:09 06:52 WBC 17.8 H (3.8-10.6) k/uL RBC 4.22 L (4.30-5.90) m/uL Neutrophils # 14.3 H (1.3-7.7) k/uL Lymphocytes # (1.0-4.8) k/uL Monocytes # 1.4 H (0-1.0) k/uL APTT (22.0-30.0) sec VBG pH (7.31-7.41) VBG pCO2 (37-51) mmHg VBG HCO3 (24-28) mmol/L Potassium (3.5-5.1) mmol/L Carbon Dioxide (22-30) mmol/L Glucose (74-99) mg/dL POC Glucose (mg/dL) 128 H 170 H (75-99) mg/dL Plasma Lactic Acid Chinedu (0.7-2.0) mmol/L Calcium (8.4-10.2) mg/dL Phosphorus (2.5-4.5) mg/dL Magnesium (1.6-2.3) mg/dL Alkaline Phosphatase (38-126) U/L Creatine Kinase (55-170) U/L Troponin I (0.000-0.034) ng/mL Urine Protein (Negative) Urine Glucose (UA) (Negative) Urine Ketones (Negative) Urine Blood (Negative) 04/09/20 04/09/20 04/09/20 Range/Units 06:52 06:52 11:10 WBC (3.8-10.6) k/uL RBC (4.30-5.90) m/uL Neutrophils # (1.3-7.7) k/uL Lymphocytes # (1.0-4.8) k/uL Monocytes # (0-1.0) k/uL APTT 45.9 H (22.0-30.0) sec VBG pH (7.31-7.41) VBG pCO2 (37-51) mmHg VBG HCO3 (24-28) mmol/L Potassium (3.5-5.1) mmol/L Carbon Dioxide (22-30) mmol/L Glucose 173 H (74-99) mg/dL POC Glucose (mg/dL) (75-99) mg/dL Plasma Lactic Acid Chinedu (0.7-2.0) mmol/L Calcium (8.4-10.2) mg/dL Phosphorus (2.5-4.5) mg/dL Magnesium (1.6-2.3) mg/dL Alkaline Phosphatase (38-126) U/L Creatine Kinase (55-170) U/L Troponin I 0.049 H* (0.000-0.034) ng/mL Urine Protein (Negative) Urine Glucose (UA) (Negative) Urine Ketones (Negative) Urine Blood (Negative) 04/09/20 Range/Units 11:37 WBC (3.8-10.6) k/uL RBC (4.30-5.90) m/uL Neutrophils # (1.3-7.7) k/uL Lymphocytes # (1.0-4.8) k/uL Monocytes # (0-1.0) k/uL APTT (22.0-30.0) sec VBG pH (7.31-7.41) VBG pCO2 (37-51) mmHg VBG HCO3 (24-28) mmol/L Potassium (3.5-5.1) mmol/L Carbon Dioxide (22-30) mmol/L Glucose (74-99) mg/dL POC Glucose (mg/dL) 205 H (75-99) mg/dL Plasma Lactic Acid Chinedu (0.7-2.0) mmol/L Calcium (8.4-10.2) mg/dL Phosphorus (2.5-4.5) mg/dL Magnesium (1.6-2.3) mg/dL Alkaline Phosphatase (38-126) U/L Creatine Kinase (55-170) U/L Troponin I (0.000-0.034) ng/mL Urine Protein (Negative) Urine Glucose (UA) (Negative) Urine Ketones (Negative) Urine Blood (Negative) Assessment and Plan Assessment: This is a 65-year-old male with complex past medical history noted below who presented to the emergency room with a chief complaint of generalized weakness. Patient was evaluated in the ER and admitted to the hospital for further m anagement of his medical problems noted below. 1. DKA , unknown underlying cause. Urinalysis was normal. Coronavirus negative. Patient was treated with DKA protocol and his anion gap closed quick ly. His back to subcutaneous insulin. Blood glucose well controlled. 2. Troponin elevation: Most likely non-thrombotic troponin leak. ACS ruled out. Seen and evaluated by cardiology. No further recommendations at this point. IV heparin discontinued. Echocardiogram done in February 2020 reviewed by cardiology 3. hypophosphatemia , hypomagnesemia, hypokalemia: Replace. Back to normal. 4. reactive leukocytosis 5. Coronary artery disease chronic conditions afib on anticoagulation history of CAD s/p CABG GERD chronic low back and legs pain CODE STATUS:full code DVT prophylaxis: On liquids Discussed with: Patient RN Anticipated length of stay > than [address]: home
[2020-04-09 14:11] VITALS: BMI 25.9
[2020-04-09 16:36] LABS: Glucose,Whole Blood 185 mg/dL (75-99)
[2020-04-09 20:31] LABS: Glucose,Whole Blood 244 mg/dL (75-99)
[2020-04-09] MEDS: INSULIN DETEMIR (LEVEMIR) 100 UNIT/ML SYR SQ SCH (20:45)
[2020-04-10 02:01] LABS: Glucose,Whole Blood 212 mg/dL (75-99)
[2020-04-10 06:18] LABS: Glucose,Whole Blood 275 mg/dL (75-99)
[2020-04-10] MEDS: PANTOPRAZOLE 40 MG TABLET PO SCH (06:28)
[2020-04-10] MEDS: INSULIN ASPART (NovoLOG) 100 UNIT/ML VIAL SQ SCH ×2 (06:28→12:12)
[2020-04-10] MEDS ORDERED: glipiZIDE 5 MG TAB PO SCH (07:30)
[2020-04-10] MEDS ORDERED: INSULIN DETEMIR (LEVEMIR) 100 UNIT/ML SYR SQ SCH (08:00)
[2020-04-10 08:09] LABS: Basophils # (A) 0.1 k/uL (0-0.2); Basophils % (A) 0 %; Eosinophils # (A) 0.2 k/uL (0-0.7); Eosinophils % (A) 1 %; HCT 42.6 % (39.0-53.0); HGB 13.8 gm/dL (13.0-17.5); Lymphocytes # (A) 2.2 k/uL (1.0-4.8); Lymphocytes % (A) 17 %; MCHC 32.4 g/dL (31.0-37.0); MCV 95.5 fL (80.0-100.0); Mean Platelet Volume 6.8; Monocytes # (A) 0.9 k/uL (0-1.0); Monocytes % (A) 7 %; Neutrophils # (A) 9.8 k/uL (1.3-7.7); Neutrophils % (A) 74 %; Platelet Count 408 k/uL (150-450); RBC 4.46 m/uL (4.30-5.90); RDW 13.4 % (11.5-15.5); WBC 13.2 k/uL (3.8-10.6)
[2020-04-10] MEDS: GABAPENTIN 300 MG CAP PO SCH (08:32)
[2020-04-10] MEDS: SPIRONOLACTONE 25 MG TAB PO SCH (08:32)
[2020-04-10] MEDS: METOPROLOL TARTRATE 25 MG TAB PO SCH (08:32)
[2020-04-10] MEDS: lisinopriL 10 MG TAB PO SCH (08:32)
[2020-04-10] MEDS: ATORVASTATIN 40 MG TAB PO SCH (08:33)
[2020-04-10] MEDS: APIXABAN 5 MG TAB PO SCH (08:33)
[2020-04-10] MEDS: DULoxetine HCL 60 MG CAPSULE.DR PO SCH (08:33)
[2020-04-10 08:35] LABS: African American GFR (CKD) >90 (>60 ml/min/1.73 sqM); Anion Gap 10 mmol/L; Blood Urea Nitrogen 21 mg/dL (9-20); Calcium 9.8 mg/dL (8.4-10.2); Carbon Dioxide 27 mmol/L (22-30); Chloride 100 mmol/L (98-107); Glucose 215 mg/dL (74-99); Non-African American GFR(CKD) 83 (>60 ml/min/1.73 sqM); Potassium 4.1 mmol/L (3.5-5.1); Sodium 137 mmol/L (137-145)
--- NOTE | 2020-04-10 08:53 | P.DS ---
Providers Date of admission: 04/08/20 18:13 Expected date of discharge: 04/10/20 Attending physician: Mustapha Cristina MD Consults: 04/08/20 18:15 Consult Physician Urgent Consulting Provider: Brandan Nicholas Consult Reason/Comments: Abnormal EKG Do you want consulting provider notified?: Already Contacted [facility] Course: This is a 65-year-old male with complex past medical history noted below who presented to the emergency room with a chief complaint of generalized weakness. Patient was evaluated in the ER and admitted to the hospital for further management of his medical problems noted below. 1. DKA , unknown underlying cause. Urinalysis was normal. Coronavirus negative. Patient was treated with DKA protocol and his anion gap closed quickly. His back to subcutaneous insulin. Blood glucose well controlled. Patient informed me that he uses a sliding scale insulin at home. Advised to start Levemir 10 units daily and continue NovoLog sliding scale. Resume all oral medication. Continue to monitor blood glucose closely at home. Follow-up with PCP as directed. 2. Troponin elevation: Most likely non-thrombotic troponin leak. ACS ruled out. Seen and evaluated by cardiology. No further recommendations at this point. IV heparin discontinued. Plavix was discontinued by cardiology. Continue aspirin 81 mg daily. Echocardiogram done in February 2020 reviewed by cardiology 3. hypophosphatemia , hypomagnesemia, hypokalemia: Replace. Back to normal. 4. reactive leukocytosis 5. Coronary artery disease chronic conditions afib on anticoagulation with Eliquis history of CAD s/p CABG GERD chronic low back and legs pain Patient will be discharged home in a stable condition. For further details about this hospitalization please refer to the electronic chart. Time spent on discharge > 30 minutes including counseling and coordination of care Patient Condition at Discharge: Fair Plan - Discharge Summary Discharge Rx Participant: No New Discharge Prescriptions: New Aspirin 81 mg PO DAILY #30 chew Insulin Detemir [Levemir Flextouch] 10 units SQ DAILY #3 pen Continue Pantoprazole [Protonix] 40 mg PO AC-BRKFST #30 tablet. Spironolactone [Aldactone] 25 mg PO DAILY #30 tab Nitroglycerin Sl Tabs [Nitrostat] 0.4 mg SUBLINGUAL Q5M PRN tab PRN Reason: Chest Pain Atorvastatin [Lipitor] 40 mg PO DAILY #30 tab DULoxetine HCL [Cymbalta] 60 mg PO BID glipiZIDE [Glucotrol] 5 mg PO AC-BID metFORMIN HCL 1,000 mg PO BID Semaglutide [Ozempic] 0.25 mg SQ WE Apixaban [Eliquis] 5 mg PO BID tab Gabapentin 300 mg PO BID Insulin Aspart [NovoLOG Flexpen] 10 units SQ AC-BID lisinopriL 30 mg PO DAILY oxyCODONE ER [OxyCONTIN] 80 mg PO Q12H oxyCODONE HCL [oxyCODONE HCL (IR)] 15 mg PO Q8H Potassium Chloride [Klor-Con 20] 20 meq PO BID Metoprolol Tartrate 75 mg PO BID #180 tab Discontinued Clopidogrel [Plavix] 75 mg PO DAILY #30 tab Discharge Medication List Pantoprazole [Protonix] 40 mg PO AC-BRKFST #30 tablet. 09/01/19 [Rx] Atorvastatin [Lipitor] 40 mg PO DAILY #30 tab 10/24/19 [Rx] Nitroglycerin Sl Tabs [Nitrostat] 0.4 mg SUBLINGUAL Q5M PRN tab 10/24/19 [Rx] Spironolactone [Aldactone] 25 mg PO DAILY #30 tab 10/24/19 [Rx] DULoxetine HCL [Cymbalta] 60 mg PO BID 11/16/19 [History] Semaglutide [Ozempic] 0.25 mg SQ WE 11/16/19 [History] glipiZIDE [Glucotrol] 5 mg PO AC-BID 11/16/19 [History] metFORMIN HCL 1,000 mg PO BID 11/16/19 [History] Apixaban [Eliquis] 5 mg PO BID tab 11/18/19 [Rx] Gabapentin 300 mg PO BID 03/01/20 [History] Insulin Aspart [NovoLOG Flexpen] 10 units SQ AC-BID 03/01/20 [History] Potassium Chloride [Klor-Con 20] 20 meq PO BID 03/01/20 [History] lisinopriL 30 mg PO DAILY 03/01/20 [History] oxyCODONE ER [OxyCONTIN] 80 mg PO Q12H 03/01/20 [History] oxyCODONE HCL [oxyCODONE HCL (IR)] 15 mg PO Q8H 03/01/20 [History] Metoprolol Tartrate 75 mg PO BID #180 tab 03/03/20 [Rx] Aspirin 81 mg PO DAILY #30 chew 04/10/20 [Rx] Insulin Detemir [Levemir Flextouch] 10 units SQ DAILY #3 pen 04/10/20 [Rx] Follow up Appointment(s)/Referral(s): [facility], [NON-STAFF] - Dexter Ji DO [Primary Care Provider] - 1-2 days Discharge Disposition: HOME SELF-CARE
[2020-04-10] MEDS ORDERED: ASPIRIN 81 MG PO SCH (09:00)
[2020-04-10 09:12] VITALS: RESP 20
[2020-04-10] MEDS: oxyCODONE ER 80 MG TAB.ER.12H PO SCH (10:47)
[2020-04-10 11:54] LABS: Glucose,Whole Blood 228 mg/dL (75-99)
[2020-04-10 11:55] VITALS: BP 162/74; PULSE 68; TEMP 98.2
--- NOTE | 2020-04-10 14:06 | P.PN ---
Subjective Progress Note Date: 04/10/20 CHIEF COMPLAINT: Abnormal EKG HISTORY OF PRESENT ILLNESS: 04/09/2020 This is a 65-year-old male with a past medical history significant for hypertension, hyperlipidemia, paroxysmal atrial fibrillation, systolic congestive heart failure, ischemic cardiomyopathy, and coronary artery disease with previous PCI to the RCA in 2007 and 2014 and CABG 3 in July 2019. Patient follows in the office with Dr. Hua. He was last seen in the office in November 2019. He states he now follows with a woman informatics nurse but is unable to recall her name. The patient believes he had a stress test completed recently. There has not been a stress test completed at this facility or at [facility] recently. We have been asked to see the patient in consul tation for abnormal EKG. Patient is currently admitted to the hospital secondary to DKA. Patient examined this morning at the bedside. He denies chest pain or pressure. Denies shortness of breath. Denies dizziness or lightheadedness. EKG reveals sinus tachycardia with no acute signs of ischemia in comparison to old EKG. Chest xray no active cardiopulmonary disease Laboratory data: WBC 17.8. Hemoglobin 13.4. Platelet count 367. Sodium 140. Potassium 3.6. BUN 8. Creatinine 17. Troponin 0.031. 0.063. 0.089. Current home cardiac medications include lisinopril 30 mg daily, Aldactone 25 mg daily, metoprolol 75 mg twice a day, Plavix 75 mg daily, Lipitor 40 g daily, and Eliquis 5 mg twice a day. Echocardiogram completed on 03/02/2020 revealed ejection fraction 40-45%. 04/10/2020 Patient examined this morning at the bedside. He denies chest pain or pressure. Denies shortness of breath. Vital signs are stable. He is going to be discharged home today. PHYSICAL EXAM: VITAL SIGNS: Reviewed. GENERAL: Well-developed in no acute distress. HEENT: Head is normocephalic. Pupils are equal, round. Sclerae anicteric. Mucous membranes of the mouth are moist. Neck supple. No JVD or thyromegaly LUNGS: Respirations even and unlabored. Lungs essentially clear to auscultation bilaterally. HEART: Regular rate and rhythm. S1 and S2 heard. ABDOMEN: Soft. Nondistended. Nontender. EXTREMITIES: Normal range of motion. No clubbing or cyanosis. Peripheral pulses intact. No lower extremity edema NEUROLOGIC: Awake and alert. Oriented x 3. ASSESSMENT: DKA Abnormal troponins, no evidence of acute coronary syndrome Coronary artery disease with previous PCI to RCA in 2007 and 2014 and CABG 3 in July 2019 Paroxysmal atrial fibrillation, on anticoagulation with Eliquis Ischemic cardiomyopathy, ejection fraction 40-45% Chronic systolic congestive heart failure, currently euvolemic Hypertension Hyperlipidemia Marijuana use PLAN: Continue current cardiac medications Patient is stable for discharge home today from a cardiac standpoint. He is to follow up outpatient. We will sign off. Please reconsult if needed. Nurse practitioner note has been reviewed by physician. Signing provider agrees with the documented findings, assessment, and plan of care. Objective - Vital Signs Vital signs: Vital Signs Temp 98.2 F 04/10/20 11:54 Pulse 68 04/10/20 11:54 Resp 20 04/10/20 11:54 BP 162/74 04/10/20 11:54 Pulse Ox 99 04/10/20 11:54 Intake & Output 04/09/20 04/10/20 04/10/20 18:59 06:59 18:59 Intake Total 780 720 Output Total 250 Balance 530 720 Weight 73 kg 73.3 kg Intake: Oral 780 720 Output: Urine 250 Other: # Voids 1 1 - Labs CBC & Chem 7: 04/10/20 07:13 04/10/20 07:13 Labs: Abnormal Lab Results - Last 24 Hours (Table) 04/09/20 04/09/20 04/10/20 Range/Units 16:34 20:29 01:59 WBC (3.8-10.6) k/uL Neutrophils # (1.3-7.7) k/uL BUN (9-20) mg/dL Glucose (74-99) mg/dL POC Glucose (mg/dL) 185 H 244 H 212 H (75-99) mg/dL 04/10/20 04/10/20 04/10/20 Range/Units 06:17 07:13 07:13 WBC 13.2 H (3.8-10.6) k/uL Neutrophils # 9.8 H (1.3-7.7) k/uL BUN 21 H (9-20) mg/dL Glucose 215 H (74-99) mg/dL POC Glucose (mg/dL) 275 H (75-99) mg/dL 04/10/20 Range/Units 11:48 WBC (3.8-10.6) k/uL Neutrophils # (1.3-7.7) k/uL BUN (9-20) mg/dL Glucose (74-99) mg/dL POC Glucose (mg/dL) 228 H (75-99) mg/dL Microbiology - Last 24 Hours (Table) 04/08/20 18:00 Blood Culture - Preliminary Blood No Growth after 24 hours
[2020-04-11] MEDS ORDERED: INSULIN DETEMIR (LEVEMIR) 100 UNIT/ML SYR SQ SCH (07:00)
== END 2020-04-10 15:23 | disposition home or self-care (01) | DRG 638 ==
LOC: EC 16:27 → 3SCARD 18:13
PROVIDERS: ADMIT Internal Medicine; ATTEND Internal Medicine
DX: E11.10 Type 2 diabetes mellitus with ketoacidosis without coma (principal); I50.22 Chronic systolic (congestive) heart failure; E78.5 Hyperlipidemia, unspecified; E87.6 Hypokalemia; E83.42 Hypomagnesemia; E83.39 Other disorders of phosphorus metabolism; F12.90 Cannabis use, unspecified, uncomplicated; G89.29 Other chronic pain; I11.0 Hypertensive heart disease with heart failure; I25.10 Atherosclerotic heart disease of native coronary artery without angina pectoris; I25.5 Ischemic cardiomyopathy; I48.0 Paroxysmal atrial fibrillation; K21.9 Gastro-esophageal reflux disease without esophagitis; Z20.822 Contact with and (suspected) exposure to COVID-19; Z79.82 Long term (current) use of aspirin; Z79.4 Long term (current) use of insulin; Z79.02 Long term (current) use of antithrombotics/antiplatelets; Z79.01 Long term (current) use of anticoagulants; Z79.899 Other long term (current) drug therapy; Z82.49 Family history of ischemic heart disease and other diseases of the circulatory system; I25.2 Old myocardial infarction; Z95.1 Presence of aortocoronary bypass graft; Z95.5 Presence of coronary angioplasty implant and graft; Z98.890 Other specified postprocedural states; Z87.440 Personal history of urinary (tract) infections; Z87.891 Personal history of nicotine dependence; Z83.3 Family history of diabetes mellitus
CPT/HCPCS: 36415; 71045; 80048; 80051; 80053; 81001; 82009; 82550; 82565; 82803; 82947; 83605; 83735; 83880; 84100; 84484; 84520; 85025; 85610; 85730; 87040; 87635; 93005; 94760; 96361; 96365; 96367; 96374; 96376; 99291

== ENCOUNTER 2020-06-16 07:22 | Inpatient (IN) | payer MEDICARE, OTHER ==
[2020-06-16] MEDS ORDERED: SODIUM CHLORIDE 0.9% 500 ML 500 ML IV STA (07:32)
[2020-06-16] MEDS ORDERED: SODIUM CHLORIDE 0.9% 1,000 ML IV STA (07:32)
[2020-06-16 07:37] LABS: Glucose,Whole Blood 260 mg/dL (75-99)
[2020-06-16] MEDS ORDERED: HYDROmorphone 0.5 MG/0.5 ML SYRINGE IVP STA (07:43)
[2020-06-16] MEDS ORDERED: ENALAPRILAT 1.25 MG/ML 1 ML VIAL IVP STA (07:43)
[2020-06-16] MEDS ORDERED: ONDANSETRON 4 MG/2 ML VIAL IVP STA (07:43)
--- NOTE | 2020-06-16 07:44 | ED ---
General Adult HPI <Dionicio Ribera - Last Filed: 06/16/20 09:36> - General Source: patient, EMS, RN notes reviewed Mode of arrival: EMS Limitations: no limitations <Serge Mares - Last Filed: 06/16/20 09:56> - General Stated complaint: Hypoglycemic Time Seen by Provider: 06/16/20 07:28 - History of Present Illness Initial comments: This is a 65-year-old male presents emergency Department chief complaint of hyperglycemia. Patient presented emergency department via EMS with blood sugar in the 300s. Patient states that he ate very poorly yesterday. Patient is insulin-dependent diabetic. Patient states that he has been very nauseated, vomiting no diarrhea no constipation. Patient had some urinary frequency. Patient denies any current complaints of chest pain or shortness breath no fevers or chills. Patient states had multiple issues with this in the past. (Serge Mares) - Related Data Home Medications Medication Instructions Recorded Confirmed DULoxetine HCL [Cymbalta] 60 mg PO BID 11/16/19 06/16/20 Semaglutide [Ozempic] 0.25 mg SQ WE 11/16/19 06/16/20 glipiZIDE [Glucotrol] 5 mg PO AC-BID 11/16/19 06/16/20 metFORMIN HCL 1,000 mg PO BID 11/16/19 06/16/20 Insulin Aspart [NovoLOG Flexpen] 10 units SQ AC-BID 03/01/20 06/16/20 Potassium Chloride [Klor-Con 20] 20 meq PO BID 03/01/20 06/16/20 oxyCODONE ER [OxyCONTIN] 80 mg PO Q12H 03/01/20 06/16/20 oxyCODONE HCL [oxyCODONE HCL (IR)] 15 mg PO Q8H 03/01/20 06/16/20 Lisinopril-Hctz 20-12.5 mg 1 tab PO BID 06/16/20 06/16/20 [Zestoretic 20-12.5] Metoprolol Tartrate [Lopressor] 50 mg PO BID 06/16/20 06/16/20 Nitroglycerin Sl Tabs [Nitrostat] 0.4 mg SL Q5M PRN 06/16/20 06/16/20 Pregabalin [Lyrica] 50 mg PO BID 06/16/20 06/16/20 rOPINIRole HCL [Requip] 1 mg PO BID 06/16/20 06/16/20 Previous Rx's Medication Instructions Recorded Atorvastatin [Lipitor] 40 mg PO DAILY #30 tab 10/24/19 Spironolactone [Aldactone] 25 mg PO DAILY #30 tab 10/24/19 Apixaban [Eliquis] 5 mg PO BID tab 11/18/19 Aspirin 81 mg PO DAILY #30 chew 04/10/20 Insulin Detemir [Levemir Flextouch] 10 units SQ DAILY #3 pen 04/10/20 Allergies Allergy/AdvReac Type Severity Reaction Status Date / Time No Known Allergies Allergy Verified 06/16/20 09:24 Review of Systems ROS Other: All systems not noted in ROS Statement are negative. <Dionicio Ribera - Last Filed: 06/16/20 09:36> ROS Other: All systems not noted in ROS Statement are negative. <Serge Mares - Last Filed: 06/16/20 09:56> ROS Statement: Those systems with pertinent positive or pertinent negative responses have been documented in the HPI. Past Medical History Past Medical History: Atrial Fibrillation, Coronary Artery Disease (CAD), Chest Pain / Angina, Diabetes Mellitus, GERD/Reflux, Hyperlipidemia, Hypertension, Myocardial Infarction ([place]) Additional Past Medical History / Comment(s): Pt had CABG 07/2019 and had post op Afib/UTI with pseudomonas aeruginosa, ischemic cardiomyopathy, IDDM type II, past R scrotal abscess with sepsis, chronic lower back pain and bilateral leg pain, Last Myocardial Infarction Date:: 03/20/15 History of Any Multi-Drug Resistant Organisms: None Reported Past Surgical History: Back Surgery, Coronary Bypass/CABG, Heart Catheterization, Heart Catheterization With Stent, Orthopedic Surgery Additional Past Surgical History / Comment(s): 08/23/2019 CABG 3 vessels, PCI with total of 5 stents, L ankle ligament repair, R leg ORIF, low back surgery, colonoscopy. Past Anesthesia/Blood Transfusion Reactions: No Reported Reaction Additional Past Anesthesia/Blood Transfusion Reaction / Comment(s): Pt has received blood in past without reaction. Date of Last Stent Placement:: 02/2015 Past Psychological History: No Psychological Hx Reported Smoking Status: Former smoker Past Alcohol Use History: None Reported Past Drug Use History: Marijuana - Past Family History Sister(s) Family Medical History: Coronary Artery Disease (CAD), Hypertension Father Family Medical History: Coronary Artery Disease (CAD), Diabetes Mellitus, Deep Vein Thrombosis (DVT), Hypertension Additional Family Medical History / Comment(s): Father at age 58yrs. He of blood clot from leg injury that went to his heart. <VishnuSerge Sandra - Last Filed: 06/16/20 09:56> General Exam Limitations: no limitations General appearance: alert, in no apparent distress Head exam: Present: atraumatic, normocephalic, normal inspection Eye exam: Present: normal appearance, PERRL, EOMI. Absent: scleral icterus, conjunctival injection, periorbital swelling ENT exam: Present: normal exam, normal oropharynx, mucous membranes moist Neck exam: Present: normal inspection, full ROM. Absent: tenderness, meningismus, lymphadenopathy Respiratory exam: Present: normal lung sounds bilaterally. Absent: respiratory distress, wheezes, rales, rhonchi, stridor Cardiovascular Exam: Present: regular rate, normal rhythm, normal heart sounds. Absent: systolic murmur, diastolic murmur, rubs, gallop, clicks GI/Abdominal exam: Present: soft, tenderness, normal bowel sounds. Absent: distended, guarding, rebound, rigid Back exam: Absent: CVA tenderness (R), CVA tenderness (L) Neurological exam: Present: alert, oriented X3, CN II-XII intact Skin exam: Present: warm, dry, intact, normal color. Absent: rash <Serge Mares - Last Filed: 06/16/20 09:56> Course <Dionicio Ribera - Last Filed: 06/16/20 09:36> Vital Signs 06/16/20 06/16/20 06/16/20 07:23 08:10 08:30 Temperature 97 F L Pulse Rate 80 82 81 Respiratory 18 18 18 Rate Blood Pressure 221/101 180/95 O2 Sat by Pulse 100 99 100 Oximetry 06/16/20 09:37 Temperature Pulse Rate 88 Respiratory 16 Rate Blood Pressure 163/81 O2 Sat by Pulse 100 Oximetry - Reevaluation(s) Reevaluation #1: 06/16/20 09:36 Case reviewed a do agree with the assessment and plan the patient is to be admitted. (Dionicio Ribera) EKG Findings - EKG Comments: EKG Findings:: EKG performed at 17:51 sinus rhythm with PVC noted left axis deviation rate of 83 VT 172 QRS 104 QT status QTC 446/524 <Serge Mares - Last Filed: 06/16/20 09:56> Medical Decision Making - Lab Data Result diagrams: 06/16/20 07:42 06/16/20 07:42 <Dionicio Ribera - Last Filed: 06/16/20 09:36> - Lab Data Result diagrams: 06/16/20 07:42 06/16/20 07:42 <Serge Mares - Last Filed: 06/16/20 09:56> - Medical Decision Making 65-year-old male presented for hyperglycemia, nausea vomiting. Patient's been having persistent nausea vomiting from V/Q is dehydrated with hyperglycemia and mild acidosis. Patient was given 2 L of fluids, start intravenous fluids. Patient's case discussed with Dr. Vail who accepts admission. Patient does have moderate lactic acidosis most likely from uncontrolled diabetes, dehydration there is no clear evidence of infection. (Serge Mares) - Lab Data Lab Results 06/16/20 06/16/20 06/16/20 Range/Units 07:36 07:42 07:42 WBC 15.3 H (3.8-10.6) k/uL RBC 4.78 (4.30-5.90) m/uL Hgb 14.8 (13.0-17.5) gm/dL Hct 44.5 (39.0-53.0) % MCV 93.0 (80.0-100.0) fL MCH 31.0 (25.0-35.0) pg MCHC 33.4 (31.0-37.0) g/dL RDW 13.6 (11.5-15.5) % Plt Count 464 H (150-450) k/uL MPV 6.9 Neutrophils % 88 % Lymphocytes % 7 % Monocytes % 3 % Eosinophils % 2 % Basophils % 0 % Neutrophils # 13.4 H (1.3-7.7) k/uL Lymphocytes # 1.0 (1.0-4.8) k/uL Monocytes # 0.5 (0-1.0) k/uL Eosinophils # 0.3 (0-0.7) k/uL Basophils # 0.0 (0-0.2) k/uL VBG pH (7.31-7.41) VBG pCO2 (37-51) mmHg VBG HCO3 (24-28) mmol/L Sodium (137-145) mmol/L Potassium (3.5-5.1) mmol/L Chloride (98-107) mmol/L Carbon Dioxide (22-30) mmol/L Anion Gap mmol/L BUN (9-20) mg/dL Creatinine (0.66-1.25) mg/dL Est GFR (CKD-EPI)AfAm (>60 ml/min/1.73 sqM) Est GFR (CKD-EPI)NonAf (>60 ml/min/1.73 sqM) Glucose (74-99) mg/dL POC Glucose (mg/dL) 260 H (75-99) mg/dL POC Glu Slice Cutting Machine Operator Helper ID Sushil Ordoñez Plasma Lactic Acid Chinedu (0.7-2.0) mmol/L Calcium (8.4-10.2) mg/dL Magnesium (1.6-2.3) mg/dL Total Bilirubin (0.2-1.3) mg/dL AST (17-59) U/L ALT (4-49) U/L Alkaline Phosphatase (38-126) U/L Troponin I (0.000-0.034) ng/mL Total Protein (6.3-8.2) g/dL Albumin (3.5-5.0) g/dL Amylase (30-110) U/L Lipase (23-300) U/L Urine Color Colorless Urine Appearance Clear (Clear) Urine pH 7.0 (5.0-8.0) Ur Specific Alto 1.006 (1.001-1.035) Urine Protein 2+ H (Negative) Urine Glucose (UA) 4+ H (Negative) Urine Ketones 2+ H (Negative) Urine Blood Small H (Negative) Urine Nitrite Negative (Negative) Urine Bilirubin Negative (Negative) Urine Urobilinogen <2.0 (<2.0) mg/dL Ur Leukocyte Esterase Negative (Negative) Urine RBC 9 H (0-5) /hpf Urine WBC 1 (0-5) /hpf 06/16/20 06/16/20 06/16/20 Range/Units 07:42 07:42 07:42 WBC (3.8-10.6) k/uL RBC (4.30-5.90) m/uL Hgb (13.0-17.5) gm/dL Hct (39.0-53.0) % MCV (80.0-100.0) fL MCH (25.0-35.0) pg MCHC (31.0-37.0) g/dL RDW (11.5-15.5) % Plt Count (150-450) k/uL MPV Neutrophils % % Lymphocytes % % Monocytes % % Eosinophils % % Basophils % % Neutrophils # (1.3-7.7) k/uL Lymphocytes # (1.0-4.8) k/uL Monocytes # (0-1.0) k/uL Eosinophils # (0-0.7) k/uL Basophils # (0-0.2) k/uL VBG pH (7.31-7.41) VBG pCO2 (37-51) mmHg VBG HCO3 (24-28) mmol/L Sodium 137 (137-145) mmol/L Potassium 3.4 L (3.5-5.1) mmol/L Chloride 97 L (98-107) mmol/L Carbon Dioxide 22 (22-30) mmol/L Anion Gap 18 mmol/L BUN 17 (9-20) mg/dL Creatinine 0.80 (0.66-1.25) mg/dL Est GFR (CKD-EPI)AfAm >90 (>60 ml/min/1.73 sqM) Est GFR (CKD-EPI)NonAf >90 (>60 ml/min/1.73 sqM) Glucose 277 H (74-99) mg/dL POC Glucose (mg/dL) (75-99) mg/dL POC Glu Slice Cutting Machine Operator Helper ID Plasma Lactic Acid Chinedu 5.2 H* (0.7-2.0) mmol/L Calcium 10.3 H (8.4-10.2) mg/dL Magnesium 1.4 L (1.6-2.3) mg/dL Total Bilirubin 0.6 (0.2-1.3) mg/dL AST 21 (17-59) U/L ALT 16 (4-49) U/L Alkaline Phosphatase 129 H (38-126) U/L Troponin I <0.012 (0.000-0.034) ng/mL Total Protein 7.4 (6.3-8.2) g/dL Albumin 4.4 (3.5-5.0) g/dL Amylase 90 (30-110) U/L Lipase 85 (23-300) U/L Urine Color Urine Appearance (Clear) Urine pH (5.0-8.0) Ur Specific Alto (1.001-1.035) Urine Protein (Negative) Urine Glucose (UA) (Negative) Urine Ketones (Negative) Urine Blood (Negative) Urine Nitrite (Negative) Urine Bilirubin (Negative) Urine Urobilinogen (<2.0) mg/dL Ur Leukocyte Esterase (Negative) Urine RBC (0-5) /hpf Urine WBC (0-5) /hpf 06/16/20 Range/Units 07:42 WBC (3.8-10.6) k/uL RBC (4.30-5.90) m/uL Hgb (13.0-17.5) gm/dL Hct (39.0-53.0) % MCV (80.0-100.0) fL MCH (25.0-35.0) pg MCHC (31.0-37.0) g/dL RDW (11.5-15.5) % Plt Count (150-450) k/uL MPV Neutrophils % % Lymphocytes % % Monocytes % % Eosinophils % % Basophils % % Neutrophils # (1.3-7.7) k/uL Lymphocytes # (1.0-4.8) k/uL Monocytes # (0-1.0) k/uL Eosinophils # (0-0.7) k/uL Basophils # (0-0.2) k/uL VBG pH 7.42 H (7.31-7.41) VBG pCO2 36 L (37-51) mmHg VBG HCO3 23 L (24-28) mmol/L Sodium (137-145) mmol/L Potassium (3.5-5.1) mmol/L Chloride (98-107) mmol/L Carbon Dioxide (22-30) mmol/L Anion Gap mmol/L BUN (9-20) mg/dL Creatinine (0.66-1.25) mg/dL Est GFR (CKD-EPI)AfAm (>60 ml/min/1.73 sqM) Est GFR (CKD-EPI)NonAf (>60 ml/min/1.73 sqM) Glucose (74-99) mg/dL POC Glucose (mg/dL) (75-99) mg/dL POC Glu Slice Cutting Machine Operator Helper ID Plasma Lactic Acid Chinedu (0.7-2.0) mmol/L Calcium (8.4-10.2) mg/dL Magnesium (1.6-2.3) mg/dL Total Bilirubin (0.2-1.3) mg/dL AST (17-59) U/L ALT (4-49) U/L Alkaline Phosphatase (38-126) U/L Troponin I (0.000-0.034) ng/mL Total Protein (6.3-8.2) g/dL Albumin (3.5-5.0) g/dL Amylase (30-110) U/L Lipase (23-300) U/L Urine Color Urine Appearance (Clear) Urine pH (5.0-8.0) Ur Specific Alto (1.001-1.035) Urine Protein (Negative) Urine Glucose (UA) (Negative) Urine Ketones (Negative) Urine Blood (Negative) Urine Nitrite (Negative) Urine Bilirubin (Negative) Urine Urobilinogen (<2.0) mg/dL Ur Leukocyte Esterase (Negative) Urine RBC (0-5) /hpf Urine WBC (0-5) /hpf Disposition <Dionicio Ribera - Last Filed: 06/16/20 09:36> <Serge Mares - Last Filed: 06/16/20 09:56> Clinical Impression: Hypokalemia, Dehydration, Lactic acidosis, Nausea & vomiting, Hypomagnesemia, Hyperglycemia Disposition: ADMITTED IP TO THIS HOSP Condition: Fair Referrals: Dexter Ji DO [Primary Care Provider] - 1-2 days
[2020-06-16 07:57] LABS: Basophils % (A) 0 %; Eosinophils # (A) 0.3 k/uL (0-0.7); Eosinophils % (A) 2 %; HCT 44.5 % (39.0-53.0); HGB 14.8 gm/dL (13.0-17.5); Lymphocytes % (A) 7 %; MCHC 33.4 g/dL (31.0-37.0); Mean Platelet Volume 6.9; Monocytes # (A) 0.5 k/uL (0-1.0); Monocytes % (A) 3 %; Neutrophils # (A) 13.4 k/uL (1.3-7.7); Neutrophils % (A) 88 %; Platelet Count 464 k/uL (150-450); RBC 4.78 m/uL (4.30-5.90); RDW 13.6 % (11.5-15.5); VBG PH 7.42 (7.31-7.41); WBC 15.3 k/uL (3.8-10.6)
[2020-06-16 08:06] LABS: Appearance,Urine Clear (Clear); Bilirubin,Urine Negative (Negative); Blood,Urine Small (Negative); Color,Urine Colorless; Glucose,Urine (UA) 4+ (Negative); Leukocyte Esterase,Urine Negative (Negative); Nitrite,Urine Negative (Negative); Protein,Urine 2+ (Negative); RBC,Urine 9 /hpf (0-5); Specific Gravity,Urine 1.006 (1.001-1.035); Urobilinogen,Urine <2.0 mg/dL (<2.0); WBC,Urine 1 /hpf (0-5)
[2020-06-16 08:07] LABS: Ketones,Urine 2+ (Negative)
[2020-06-16 08:22] LABS: ALT 16 U/L (4-49); AST 21 U/L (17-59); African American GFR (CKD) >90 (>60 ml/min/1.73 sqM); Albumin 4.4 g/dL (3.5-5.0); Alkaline Phosphatase 129 U/L (38-126); Amylase 90 U/L (30-110); Anion Gap 18 mmol/L; Blood Urea Nitrogen 17 mg/dL (9-20); Calcium 10.3 mg/dL (8.4-10.2); Carbon Dioxide 22 mmol/L (22-30); Chloride 97 mmol/L (98-107); Glucose 277 mg/dL (74-99); Lipase 85 U/L (23-300); Magnesium 1.4 mg/dL (1.6-2.3); Non-African American GFR(CKD) >90 (>60 ml/min/1.73 sqM); Potassium 3.4 mmol/L (3.5-5.1); Sodium 137 mmol/L (137-145); Total Bilirubin 0.6 mg/dL (0.2-1.3); Total Protein 7.4 g/dL (6.3-8.2)
[2020-06-16] MEDS ORDERED: METOCLOPRAMIDE 5 MG/ML 2 ML VIAL IVP STA (08:22)
[2020-06-16] MEDS ORDERED: diphenhydrAMINE 50 MG/ML 1 ML VIAL IVP STA (08:22)
--- NOTE | 2020-06-16 09:19 | XR ---
EXAMINATION TYPE: XR chest 2V DATE OF EXAM: 06/16/2020 COMPARISON: 04/08/2020 INDICATION: Pain difficulty breathing TECHNIQUE: Frontal and lateral views of the chest are obtained. FINDINGS: The heart size is normal. The pulmonary vasculature is normal. The lungs are clear. IMPRESSION: 1. No acute pulmonary process.
[2020-06-16] MEDS ORDERED: NALOXONE 0.4 MG/ML 1 ML VIAL IV PRN (09:43)
[2020-06-16] MEDS ORDERED: HYDROmorphone 0.5 MG/0.5 ML SYRINGE IVP PRN (09:43)
[2020-06-16] MEDS ORDERED: ONDANSETRON 4 MG/2 ML VIAL IVP PRN (09:43)
[2020-06-16] MEDS ORDERED: POTASSIUM BICARBONATE/CIT AC 20 MEQ TABLET.EFF PO ONE (09:54)
[2020-06-16] MEDS ORDERED: MAGNESIUM OXIDE 400 MG TAB PO STA (09:54)
[2020-06-16] MEDS: SODIUM CHLORIDE 0.9% 1,000 ML IV SCH ×2 (10:11→21:08)
[2020-06-16] MEDS: oxyCODONE ER 80 MG TAB.ER.12H PO SCH ×2 (10:28→21:01)
--- NOTE | 2020-06-16 11:08 | CT ---
EXAMINATION TYPE: CT abdomen pelvis w con DATE OF EXAM: 06/16/2020 COMPARISON: 11/16/2019 INDICATION: Hypoglycemic, pain, nausea, vomiting and diarrhea DLP: 968.1 mGycm, Automated exposure control for dose reduction was used. CONTRAST: 100 ml mL of Isovue 300. Study performed without Oral Contrast TECHNIQUE: Axial images were obtained from above the diaphragm to the pubic rami in the axial plane a t 5 mm thick sections. Reconstructed images are reviewed on the computer in the coronal plane. FINDINGS: Limited CT sections are obtained the lung bases. The lung bases are clear. CT ABDOMEN: Liver: Normal Spleen: Normal Pancreas: Somewhat atrophic. Adrenal glands: There is diffuse thickening of the left adrenal gland. The more medial limb is thicke lalita at 1.4 cm. Findings were present previously although this appears slightly greater than in prior. Right adrenal gland appears within normal limits and stable. Gallbladder: Normal Kidneys: No masses are evident. No hydronephrosis is present. Renal pelves has slight prominence. No cysts are present. Delayed images were obtained through the kidneys, which remain unremarkable. Aorta: Vascular calcification is within the aorta. Inferior vena cava: Normal. CT PELVIS: Loops of bowel within the abdomen and pelvis are normal. There may be some mild diffuse thickenin g of the rectosigmoid region. Correlate for mild colitis. No suspicious inflammatory changes are paul cent. Appendix: Normal as visualized. Urinary bladder: Normal. Genitourinary structures: Prostate contains calcification. Osseous structures: No suspicious lytic or sclerotic lesions. IMPRESSIONS: 1. There is some mild colonic wall thickening from the sigmoid colon to the rectum. Consider colitis . 2. Mild bilateral renal pelvic prominence. Overt hydronephrosis however is not evident.
[2020-06-16] MEDS ORDERED: INSULIN ASPART (NovoLOG) 100 UNIT/ML VIAL SQ SCH (12:30)
[2020-06-16 13:51] LABS: Glucose,Whole Blood 241 mg/dL (75-99)
[2020-06-16] MEDS: INSULIN ASPART (NovoLOG) 100 UNIT/ML VIAL SQ SCH ×4 (13:53→21:03)
--- NOTE | 2020-06-16 15:52 | P.HPIM ---
History of Present Illness H&P Date: 06/16/20 Chief Complaint: Elevated blood sugar 65-year-old male presents emergency Department chief complaint of hyperglycemia. Patient presented emergency department via EMS with blood sugar in the 300s. Patient states that he ate very poorly yesterday. Patient is insulin-dependent diabetic. Patient states that he has been very nauseated, vomiting no diarrhea no constipation. Patient had some urinary frequency. Patient denies any current complaints of chest pain or shortness breath no fevers or chills. Patient states had multiple issues with this in the past. Workup in ED with EKG reveals sinus rhythm with PVCs with left axis deviation; labs reveal a white blood count of 15.3, hemoglobin 14.8 and platelet count 464; chemical profile revealed sodium of 137, potassium 3.4, BUN is 17 with creatinine of 0.08; blood glucose of 277 Patient does have moderate lactic acidosis most likely from uncontrolled diabetes, dehydration there is no clear evidence of infection. Review of Systems REVIEW OF SYSTEMS: CONSTITUTIONAL: No fever, no malaise, no fatigue. HEENT: No recent visual problems or hearing problems. Denied any sore throat. CARDIOVASCULAR: No chest pain, orthopnea, PND, no palpitations, no syncope. PULMONARY: No shortness of breath, no cough, no hemoptysis. GASTROINTESTINAL: No diarrhea, no nausea, no vomiting, no abdominal pain. NEUROLOGICAL: No headaches, no weakness, no numbness. HEMATOLOGICAL: Denies any bleeding or petechiae. GENITOURINARY: Denies any burning micturition, frequency, or urgency. MUSCULOSKELETAL/RHEUMATOLOGICAL: Denies any joint pain, swelling, or any muscle pain. ENDOCRINE: Denies any polyuria or polydipsia. The rest of the 14-point review of systems is negative. Past Medical History Past Medical History: Atrial Fibrillation, Coronary Artery Disease (CAD), Chest Pain / Angina, Diabetes Mellitus, GERD/Reflux, Hyperlipidemia, Hypertension, Myocardial Infarction ([place]) Additional Past Medical History / Comment(s): Pt had CABG 07/2019 and had post op Afib/UTI with pseudomonas aeruginosa, ischemic cardiomyopathy, IDDM type II, past R scrotal abscess with sepsis, chronic lower back pain and bilateral leg pain, Last Myocardial Infarction Date:: 03/20/15 History of Any Multi-Drug Resistant Organisms: None Reported Past Surgical History: Back Surgery, Coronary Bypass/CABG, Heart Catheteriza tion, Heart Catheterization With Stent, Orthopedic Surgery Additional Past Surgical History / Comment(s): 08/23/2019 CABG 3 vessels, PCI with total of 5 stents, L ankle ligament repair, R leg ORIF, low back surgery, colonoscopy. Past Anesthesia/Blood Transfusion Reactions: No Reported Reaction Additional Past Anesthesia/Blood Transfusion Reaction / Comment(s): Pt has received blood in past without reaction. Date of Last Stent Placement:: 02/2015 Past Psychological History: No Psychological Hx Reported Smoking Status: Former smoker Past Alcohol Use History: None Reported Past Drug Use History: Marijuana - Past Family History Sister(s) Family Medical History: Coronary Artery Disease (CAD), Hypertension Father Family Medical History: Coronary Artery Disease (CAD), Diabetes Mellitus, Deep Vein Thrombosis (DVT), Hypertension Additional Family Medical History / Comment(s): Father at age 58yrs. He of blood clot from leg injury that went to his heart. Medications and Allergies Home Medications Medication Instructions Recorded Confirmed Type Atorvastatin [Lipitor] 40 mg PO DAILY #30 tab 10/24/19 06/16/20 Rx Spironolactone [Aldactone] 25 mg PO DAILY #30 tab 10/24/19 06/16/20 Rx DULoxetine HCL [Cymbalta] 60 mg PO BID 11/16/19 06/16/20 History Semaglutide [Ozempic] 0.25 mg SQ WE 11/16/19 06/16/20 History glipiZIDE [Glucotrol] 5 mg PO AC-BID 11/16/19 06/16/20 History metFORMIN HCL 1,000 mg PO BID 11/16/19 06/16/20 History Apixaban [Eliquis] 5 mg PO BID tab 11/18/19 06/16/20 Rx Insulin Aspart [NovoLOG Flexpen] 10 units SQ AC-BID 03/01/20 06/16/20 History Potassium Chloride [Klor-Con 20] 20 meq PO BID 03/01/20 06/16/20 History oxyCODONE ER [OxyCONTIN] 80 mg PO Q12H 03/01/20 06/16/20 History oxyCODONE HCL [oxyCODONE HCL (IR)] 15 mg PO Q8H 03/01/20 06/16/20 History Aspirin 81 mg PO DAILY #30 chew 04/10/20 06/16/20 Rx Insulin Detemir [Levemir Flextouch] 10 units SQ DAILY #3 pen 04/10/20 06/16/20 Rx Lisinopril-Hctz 20-12.5 mg 1 tab PO BID 06/16/20 06/16/20 History [Zestoretic 20-12.5] Metoprolol Tartrate [Lopressor] 50 mg PO BID 06/16/20 06/16/20 History Nitroglycerin Sl Tabs [Nitrostat] 0.4 mg SL Q5M PRN 06/16/20 06/16/20 History Pregabalin [Lyrica] 50 mg PO BID 06/16/20 06/16/20 History rOPINIRole HCL [Requip] 1 mg PO BID 06/16/20 06/16/20 History Allergies Allergy/AdvReac Type Severity Reaction Status Date / Time No Known Allergies Allergy Verified 06/16/20 09:24 Physical Exam Vitals: Vital Signs Temp Pulse Resp BP Pulse Ox 06/16/20 09:37 88 16 163/81 100 06/16/20 08:30 81 18 100 06/16/20 08:10 82 18 180/95 99 06/16/20 07:23 97 F L 80 18 221/101 100 Intake and Output 06/15/20 06/16/20 06/16/20 22:59 06:59 14:59 Output Total 1600 Balance -1600 Output: Urine 1600 Other: Weight 77.111 kg General appearance: alert, in no apparent distress Head exam: Present: atraumatic, normocephalic, normal inspection Eye exam: Present: normal appearance, PERRL, EOMI. Absent: scleral icterus, conjunctival injection, periorbital swelling ENT exam: Present: normal exam, normal oropharynx, mucous membranes moist Neck exam: Present: normal inspection, full ROM. Absent: tenderness, meningismus, lymphadenopathy Respiratory exam: Present: normal lung sounds bilaterally. Absent: respiratory distress, wheezes, rales, rhonchi, stridor Cardiovascular Exam: Present: regular rate, normal rhythm, normal heart sounds. Absent: systolic murmur, diastolic murmur, rubs, gallop, clicks GI/Abdominal exam: Present: soft, tenderness, normal bowel sounds. Absent: distended, guarding, rebound, rigid Back exam: Absent: CVA tenderness (R), CVA tenderness (L) Neurological exam: Present: alert, oriented X3, CN II-XII intact Skin exam: Present: warm, dry, intact, normal color. Absent: rash Results CBC & Chem 7: 06/16/20 07:42 06/16/20 07:42 Labs: Abnormal Lab Results - Last 24 Hours (Table) 06/16/20 06/16/20 06/16/20 Range/Units 07:36 07:42 07:42 WBC 15.3 H (3.8-10.6) k/uL Plt Count 464 H (150-450) k/uL Neutrophils # 13.4 H (1.3-7.7) k/uL VBG pH (7.31-7.41) VBG pCO2 (37-51) mmHg VBG HCO3 (24-28) mmol/L Potassium (3.5-5.1) mmol/L Chloride (98-107) mmol/L Glucose (74-99) mg/dL POC Glucose (mg/dL) 260 H (75-99) mg/dL Plasma Lactic Acid Chinedu (0.7-2.0) mmol/L Calcium (8.4-10.2) mg/dL Magnesium (1.6-2.3) mg/dL Alkaline Phosphatase (38-126) U/L Urine Protein 2+ H (Negative) Urine Glucose (UA) 4+ H (Negative) Urine Ketones 2+ H (Negative) Urine Blood Small H (Negative) Urine RBC 9 H (0-5) /hpf 06/16/20 06/16/20 06/16/20 Range/Units 07:42 07:42 07:42 WBC (3.8-10.6) k/uL Plt Count (150-450) k/uL Neutrophils # (1.3-7.7) k/uL VBG pH 7.42 H (7.31-7.41) VBG pCO2 36 L (37-51) mmHg VBG HCO3 23 L (24-28) mmol/L Potassium 3.4 L (3.5-5.1) mmol/L Chloride 97 L (98-107) mmol/L Glucose 277 H (74-99) mg/dL POC Glucose (mg/dL) (75-99) mg/dL Plasma Lactic Acid Chinedu 5.2 H* (0.7-2.0) mmol/L Calcium 10.3 H (8.4-10.2) mg/dL Magnesium 1.4 L (1.6-2.3) mg/dL Alkaline Phosphatase 129 H (38-126) U/L Urine Protein (Negative) Urine Glucose (UA) (Negative) Urine Ketones (Negative) Urine Blood (Negative) Urine RBC (0-5) /hpf 06/16/20 Range/Units 10:25 WBC (3.8-10.6) k/uL Plt Count (150-450) k/uL Neutrophils # (1.3-7.7) k/uL VBG pH (7.31-7.41) VBG pCO2 (37-51) mmHg VBG HCO3 (24-28) mmol/L Potassium (3.5-5.1) mmol/L Chloride (98-107) mmol/L Glucose (74-99) mg/dL POC Glucose (mg/dL) (75-99) mg/dL Plasma Lactic Acid Chinedu 4.1 H* (0.7-2.0) mmol/L Calcium (8.4-10.2) mg/dL Magnesium (1.6-2.3) mg/dL Alkaline Phosphatase (38-126) U/L Urine Protein (Negative) Urine Glucose (UA) (Negative) Urine Ketones (Negative) Urine Blood (Negative) Urine RBC (0-5) /hpf Assessment and Plan Assessment: 1. Hyperglycemia/uncontrolled diabetes mellitus; blood glucose of 464 upon arrival to - Patient will get IV fluid hydration with normal saline; patient received about 2 L in ED we will continue with normal saline at a rate of 75 mL; patient does have lactic acidosis most likely secondary to uncontrolled diabetes mellitus/ dehydration; blood glucose improved to 277 - We will continue to monitor Accu-Cheks before meals and at bedtime with insulin sliding scale; continue with IV fluid hydration - We will resume home dose of metformin thousand milligrams twice a day along with Levemir 10 units subcu daily 2. Leukocytosis possibly reactive; no signs of sepsis 3. Lactic acidosis possibly secondary to hyperglycemia/dehydration - IV fluids in form of normal saline at rate of 75 mL an hour; we will monitor strict ALEX's, daily weights, renal function and electrolytes; monitor and trend lactic acid level 4. Electrolyte imbalance; hypokalemia/hypomagnesemia; supplemented in ED; we'll monitor electrolytes 5. Atrial fibrillation; remains rate controlled on metoprolol 50 mg twice a day; continue with anticoagulation with Eliquis 6. Hypertension; lisinoprilhydrochlorothiazide 2012 0.5 daily, metoprolol 50 mg twice a day 7. Hyperlipidemia; Lipitor 40 mg by mouth daily at bedtime 8. CAD; history of CABG in past; cardiac catheterization done more recently with 5 stents; patient remains stable on aspirin, statins and beta blockers DVT prophylaxis; SCDs/systemic anticoagulation CODE STATUS; full code
[2020-06-16 17:16] LABS: Glucose,Whole Blood 171 mg/dL (75-99)
[2020-06-16 20:08] LABS: Glucose,Whole Blood 135 mg/dL (75-99)
[2020-06-16] MEDS: POTASSIUM CHLORIDE ER 20 MEQ TAB.ER PO SCH (21:01)
[2020-06-16] MEDS: PREGABALIN 50 MG CAP PO SCH (21:01)
[2020-06-16] MEDS: APIXABAN 5 MG TAB PO SCH (21:01)
[2020-06-16] MEDS: metFORMIN 500 MG TAB PO SCH (21:01)
[2020-06-16] MEDS: DULoxetine HCL 60 MG CAPSULE.DR PO SCH (21:01)
[2020-06-16] MEDS: METOPROLOL TARTRATE 50 MG TAB PO SCH (21:01)
[2020-06-16] MEDS: LISINOPRIL-HCTZ 20-12.5 MG 1 EACH TAB PO SCH (21:08)
[2020-06-17] MEDS: SODIUM CHLORIDE 0.9% 1,000 ML IV SCH ×3 (01:33→21:06)
[2020-06-17 06:07] LABS: Glucose,Whole Blood 249 mg/dL (75-99)
[2020-06-17] MEDS: INSULIN ASPART (NovoLOG) 100 UNIT/ML VIAL SQ SCH ×6 (06:34→21:07)
[2020-06-17 07:52] LABS: Basophils % (A) 0 %; Eosinophils # (A) 0.5 k/uL (0-0.7); Eosinophils % (A) 3 %; HCT 40.3 % (39.0-53.0); Lymphocytes # (A) 2.3 k/uL (1.0-4.8); Lymphocytes % (A) 17 %; MCHC 32.2 g/dL (31.0-37.0); MCV 93.2 fL (80.0-100.0); Mean Platelet Volume 6.8; Monocytes # (A) 0.9 k/uL (0-1.0); Monocytes % (A) 6 %; Neutrophils # (A) 10.3 k/uL (1.3-7.7); Neutrophils % (A) 73 %; Platelet Count 378 k/uL (150-450); RBC 4.32 m/uL (4.30-5.90); RDW 14.1 % (11.5-15.5); WBC 14.1 k/uL (3.8-10.6)
[2020-06-17] MEDS: METOPROLOL TARTRATE 50 MG TAB PO SCH ×2 (09:32→21:07)
[2020-06-17] MEDS: metFORMIN 500 MG TAB PO SCH ×2 (09:32→21:07)
[2020-06-17] MEDS: POTASSIUM CHLORIDE ER 20 MEQ TAB.ER PO SCH ×2 (09:33→21:07)
[2020-06-17] MEDS: ATORVASTATIN 40 MG TAB PO SCH (09:33)
[2020-06-17] MEDS: DULoxetine HCL 60 MG CAPSULE.DR PO SCH ×2 (09:33→21:07)
[2020-06-17] MEDS: LISINOPRIL-HCTZ 20-12.5 MG 1 EACH TAB PO SCH ×2 (09:33→21:27)
[2020-06-17] MEDS: APIXABAN 5 MG TAB PO SCH ×2 (09:33→21:06)
[2020-06-17] MEDS: INSULIN DETEMIR (LEVEMIR) 100 UNIT/ML SYR SQ SCH (09:33)
[2020-06-17] MEDS: PREGABALIN 50 MG CAP PO SCH ×2 (09:33→21:07)
[2020-06-17] MEDS: PANTOPRAZOLE 40 MG/10 ML VIAL IV SCH (09:33)
[2020-06-17] MEDS: ASPIRIN 81 MG PO SCH (09:39)
[2020-06-17] MEDS: SPIRONOLACTONE 25 MG TAB PO SCH (09:40)
[2020-06-17 11:33] LABS: Glucose,Whole Blood 126 mg/dL (75-99)
[2020-06-17 11:39] LABS: African American GFR (CKD) >90 (>60 ml/min/1.73 sqM); Anion Gap 11 mmol/L; Blood Urea Nitrogen 25 mg/dL (9-20); C Reactive Protein <5.0 mg/L (<10.0); Calcium 8.3 mg/dL (8.4-10.2); Carbon Dioxide 20 mmol/L (22-30); Chloride 104 mmol/L (98-107); Glucose 175 mg/dL (74-99); Non-African American GFR(CKD) 83 (>60 ml/min/1.73 sqM); Sodium 135 mmol/L (137-145)
[2020-06-17 11:40] LABS: Potassium 4.2 mmol/L (3.5-5.1)
[2020-06-17] MEDS: oxyCODONE ER 80 MG TAB.ER.12H PO SCH ×2 (12:58→21:06)
--- NOTE | 2020-06-17 15:08 | P.PN ---
Subjective Progress Note Date: 06/17/20 Principal diagnosis: Hyperglycemia/uncontrolled diabetes mellitus Leukocytosis lactic acidosis 65-year-old male presents emergency Department chief complaint of hyperglycemia. Patient presented emergency department via EMS with blood sugar in the 300s. Patient states that he ate very poorly yesterday. Patient is insulin-dependent diabetic. Patient states that he has been very nauseated, vomiting no diarrhea no constipation. Patient had some urinary frequency. Patient denies any current complaints of chest pain or shortness breath no fevers or chills. Patient states had multiple issues with this in the past. Workup in ED with EKG reveals sinus rhythm with PVCs with left axis deviation; labs reveal a white blood count of 15.3, hemoglobin 14.8 and platelet count 464; chemical profile revealed sodium of 137, potassium 3.4, BUN is 17 with creatinine of 0.08; blood glucose of 277 Patient does have moderate lactic acidosis most likely from uncontrolled diabetes, dehydration there is no clear evidence of infection. 06/17/2020 Patient is seen and evaluated resting comfortably in bed with nursing staff at bedside; niacin any specific complaints Vital signs remained stable; blood sugars are improving but remain elevated; lactic acid remains elevated at 2.9 with elevated white blood count slightly improved from yesterday at 14.1; patient doesn't have any clear source of infection We will continue with IV fluids in form of normal saline at rate of 1 25 mL an hour; monitor CRP and pro-calcitonin and lactic acid levels with plans to consult ID if continue to trend up Objective - Vital Signs Vital signs: Vital Signs Temp 98.3 F 06/17/20 12:00 Pulse 77 06/17/20 12:00 Resp 16 06/17/20 12:00 BP 151/76 06/17/20 12:00 Pulse Ox 100 06/17/20 12:00 Intake & Output 06/16/20 06/17/20 06/17/20 18:59 06:59 18:59 Intake Total 480 1237 476 Output Total 2700 300 425 Balance -2220 937 51 Weight 77.111 kg 74.8 kg Intake: Intake, IV Titration 1000 Amount Sodium Chloride 0.9% 1, 1000 000 ml @ 125 mls/hr IV . Q8H [facility] Rx#:[id number] Oral 480 237 476 Output: Urine 2700 300 425 - Exam PHYSICAL EXAMINATION: GENERAL: The patient is alert and oriented x3, not in any acute distress. Well developed, well nourished. HEENT: Pupils are round and equally reacting to light. EOMI. No scleral icterus. No conjunctival pallor. Normocephalic, atraumatic. No pharyngeal erythema. No thyromegaly. CARDIOVASCULAR: S1 and S2 present. No murmurs, rubs, or gallops. PULMONARY: Chest is clear to auscultation, no wheezing or crackles. ABDOMEN: Soft, nontender, nondistended, normoactive bowel sounds. No palpable or ganomegaly. MUSCULOSKELETAL: No joint swelling or deformity. EXTREMITIES: No cyanosis, clubbing, or pedal edema. NEUROLOGICAL: Gross neurological examination did not reveal any focal deficits. SKIN: No rashes. - Labs CBC & Chem 7: 06/17/20 07:34 06/17/20 10:52 Labs: Abnormal Lab Results - Last 24 Hours (Table) 06/16/20 06/16/20 06/16/20 Range/Units 15:40 17:13 19:02 WBC (3.8-10.6) k/uL Neutrophils # (1.3-7.7) k/uL Sodium (137-145) mmol/L Carbon Dioxide (22-30) mmol/L BUN (9-20) mg/dL Glucose (74-99) mg/dL POC Glucose (mg/dL) 171 H (75-99) mg/dL Plasma Lactic Acid Chinedu 2.9 H* 3.3 H* (0.7-2.0) mmol/L Calcium (8.4-10.2) mg/dL 06/16/20 06/16/20 06/17/20 Range/Units 20:06 22:22 06:00 WBC (3.8-10.6) k/uL Neutrophils # (1.3-7.7) k/uL Sodium (137-145) mmol/L Carbon Dioxide (22-30) mmol/L BUN (9-20) mg/dL Glucose (74-99) mg/dL POC Glucose (mg/dL) 135 H 249 H (75-99) mg/dL Plasma Lactic Acid Chinedu 2.6 H* (0.7-2.0) mmol/L Calcium (8.4-10.2) mg/dL 06/17/20 06/17/20 06/17/20 Range/Units 07:09 07:34 10:52 WBC 14.1 H (3.8-10.6) k/uL Neutrophils # 10.3 H (1.3-7.7) k/uL Sodium 135 L (137-145) mmol/L Carbon Dioxide 20 L (22-30) mmol/L BUN 25 H (9-20) mg/dL Glucose 175 H (74-99) mg/dL POC Glucose (mg/dL) (75-99) mg/dL Plasma Lactic Acid Chined[place] 4.4 H* (0.7-2.0) mmol/L Calcium 8.3 L (8.4-10.2) mg/dL 06/17/20 06/17/20 06/17/20 Range/Units 10:52 11:32 14:00 WBC (3.8-10.6) k/uL Neutrophils # (1.3-7.7) k/uL Sodium (137-145) mmol/L Carbon Dioxide (22-30) mmol/L BUN (9-20) mg/dL Glucose (74-99) mg/dL POC Glucose (mg/dL) 126 H (75-99) mg/dL Plasma Lactic Acid Chinedu 3.9 H* 2.9 H* (0.7-2.0) mmol/L Calcium (8.4-10.2) mg/dL Assessment and Plan Assessment: 1. Hyperglycemia/uncontrolled diabetes mellitus; blood glucose of 464 upon arrival to - Patient will get IV fluid hydration with normal saline; patient received about 2 L in ED we will continue with normal saline at a rate of 75 mL; patient does have lactic acidosis most likely secondary to uncontrolled diabetes mellitus/dehydration; blood glucose improved to 277 - We will continue to monitor Accu-Cheks before meals and at bedtime with insulin sliding scale; continue with IV fluid hydration - We will resume home dose of metformin thousand milligrams twice a day along with Levemir 10 units subcu daily 2. Leukocytosis possibly reactive; no signs of sepsis 3. Lactic acidosis possibly secondary to hyperglycemia/dehydration - IV fluids in form of normal saline at rate of 75 mL an hour; we will monitor strict ALEX's, daily weights, renal function and electrolytes; monitor and trend lactic acid level 4. Electrolyte imbalance; hypokalemia/hypomagnesemia; supplemented in ED; we'll monitor electrolytes 5. Atrial fibrillation; remains rate controlled on metoprolol 50 mg twice a day; continue with anticoagulation with Eliquis 6. Hypertension; lisinoprilhydrochlorothiazide 2012 0.5 daily, metoprolol 50 mg twice a day 7. Hyperlipidemia; Lipitor 40 mg by mouth daily at bedtime 8. CAD; history of CABG in past; cardiac catheterization done more recently with 5 stents; patient remains stable on aspirin, statins and beta blockers DVT prophylaxis; SCDs/systemic anticoagulation CODE STATUS; full code
[2020-06-17 16:58] LABS: Glucose,Whole Blood 97 mg/dL (75-99)
[2020-06-17 20:45] LABS: Glucose,Whole Blood 72 mg/dL (75-99)
[2020-06-18] MEDS: AMPICILLIN-SULBACTAM 3 GM in SODIUM CHLORIDE 0.9% 100 ML IVPB SCH ×5 (01:22→23:54)
[2020-06-18] MEDS: SODIUM CHLORIDE 0.9% 1,000 ML IV SCH ×4 (01:28→21:11)
[2020-06-18] MEDS: INSULIN ASPART (NovoLOG) 100 UNIT/ML VIAL SQ SCH ×6 (06:32→21:16)
[2020-06-18 06:33] LABS: Glucose,Whole Blood 183 mg/dL (75-99)
[2020-06-18 07:51] LABS: Basophils % (A) 0 %; Eosinophils # (A) 0.2 k/uL (0-0.7); Eosinophils % (A) 2 %; HCT 38.8 % (39.0-53.0); HGB 12.5 gm/dL (13.0-17.5); Lymphocytes # (A) 2.5 k/uL (1.0-4.8); Lymphocytes % (A) 21 %; MCH 30.2 pg (25.0-35.0); MCHC 32.3 g/dL (31.0-37.0); MCV 93.4 fL (80.0-100.0); Mean Platelet Volume 6.8; Monocytes # (A) 0.8 k/uL (0-1.0); Monocytes % (A) 7 %; Neutrophils # (A) 8.1 k/uL (1.3-7.7); Neutrophils % (A) 69 %; Platelet Count 355 k/uL (150-450); RBC 4.16 m/uL (4.30-5.90); WBC 11.7 k/uL (3.8-10.6)
[2020-06-18 07:52] LABS: African American GFR (CKD) >90 (>60 ml/min/1.73 sqM); Anion Gap 11 mmol/L; Blood Urea Nitrogen 22 mg/dL (9-20); C Reactive Protein <5.0 mg/L (<10.0); Calcium 8.7 mg/dL (8.4-10.2); Carbon Dioxide 22 mmol/L (22-30); Chloride 101 mmol/L (98-107); Glucose 177 mg/dL (74-99); Magnesium 1.4 mg/dL (1.6-2.3); Non-African American GFR(CKD) >90 (>60 ml/min/1.73 sqM); Potassium 3.8 mmol/L (3.5-5.1); Sodium 134 mmol/L (137-145)
[2020-06-18] MEDS: LISINOPRIL-HCTZ 20-12.5 MG 1 EACH TAB PO SCH ×2 (08:56→21:09)
[2020-06-18] MEDS: DULoxetine HCL 60 MG CAPSULE.DR PO SCH ×2 (08:56→21:10)
[2020-06-18] MEDS: metFORMIN 500 MG TAB PO SCH ×2 (08:56→21:10)
[2020-06-18] MEDS: ATORVASTATIN 40 MG TAB PO SCH (08:56)
[2020-06-18] MEDS: INSULIN DETEMIR (LEVEMIR) 100 UNIT/ML SYR SQ SCH (08:56)
[2020-06-18] MEDS: ASPIRIN 81 MG PO SCH (08:56)
[2020-06-18] MEDS: APIXABAN 5 MG TAB PO SCH ×2 (08:56→21:10)
[2020-06-18] MEDS: SPIRONOLACTONE 25 MG TAB PO SCH (08:57)
[2020-06-18] MEDS: PREGABALIN 50 MG CAP PO SCH ×2 (08:57→21:09)
[2020-06-18] MEDS: POTASSIUM CHLORIDE ER 20 MEQ TAB.ER PO SCH ×2 (08:57→21:10)
[2020-06-18] MEDS: METOPROLOL TARTRATE 50 MG TAB PO SCH ×2 (08:57→21:10)
[2020-06-18] MEDS: PANTOPRAZOLE 40 MG/10 ML VIAL IV SCH (08:57)
[2020-06-18] MEDS: oxyCODONE ER 80 MG TAB.ER.12H PO SCH ×2 (08:57→21:11)
[2020-06-18] MEDS: MAGNESIUM SULFATE-D5W PMX 1 GM in DEXTROSE/WATER 1 100ML.BAG IVPB SCH ×2 (11:13→13:24)
[2020-06-18 11:47] VITALS: BMI 25.8
[2020-06-18 12:07] LABS: Glucose,Whole Blood 119 mg/dL (75-99)
--- NOTE | 2020-06-18 12:42 | PN ---
PROGRESS NOTE DATE OF SERVICE: 06/18/2020 REASON FOR FOLLOWUP: Colitis. INTERVAL COURSE: The patient is currently afebrile. Patient is feeling better. Breathing comfortably. Patient denies having any chest pain or shortness of breath, or cough. No further vomiting. No abdominal pain or diarrhea. Wants to go home. PHYSICAL EXAMINATION: Blood pressure 113/70 with a pulse of 72, temperature is 97.9. He is 100% on room air. General description is a middle-aged male lying in bed in no distress. RESPIRATORY SYSTEM: Unlabored breathing, clear to auscultation anteriorly. HEART: S1, S2. Regular rate and rhythm. ABDOMEN: Soft, no tenderness. LABS: Hemoglobin is 12.5, white count 11.7. Lactic acid elevated coming down to 2.8. Creatinine 0.90. CRP was less than 5. DIAGNOSTIC IMPRESSION/PLAN: Patient admitted to the hospital predominantly with vomiting. No significant abdominal pain or diarrhea. The patient did have CT of abdomen and pelvis with evidence of colitis. His white count did respond to the Unasyn, which will be continued along with IV fluids and may benefit from GI evaluation possible rule out ischemic colitis and continue supportive care. MMODL / IJN: [id number] /
--- NOTE | 2020-06-18 14:16 | CDI ---
Documentation Clarification Form Date: 06/18/2020 02:03:44 PM From: Josseline Toledo RN, CCDS Admit Date: 06/16/2020 09:43:00 AM Patient Name: Ashok Austin Visit Number: [id number] Discharge Date: ATTENTION: The Clinical Documentation Specialists (CDI) and [facility] Coding Staff appreciate your assistance in clarifying documentation. Please respond to the clarification below the line at the bottom and electronically sign. The CDI & [facility] Coding staff will review the response and follow-up if needed. Please note: Queries are made part of the Legal Health Record. If you have any questions, please contact the author of this message via ITS. Dr. Justin Vail Atrial Fibrillation is documented in the H/P and subsequent progress notes. In order to capture he most appreciate diagnosis. Please render your opinion on the type of atrial fibrillation you are treating. History/Risk Factors: Atrial Fibrillation, Coronary Artery Disease, Diabetes Mellitus, Hypertension Clinical Indicators: 65-year-old male present to ED on 06/16 with complaint of hyperglycemia. In ED EKG reveals sinus rhythm with PVCs with left axis deviation. His has a history of atrial fibrillation with ongoing treatment. 06/16 EKG/telemetry: Sinus rhythm with frequent PVCS, vent rate 83 bpm. Treatment: Telemetry Monitoring Metoprolol 50 mg po bid Eliquis 5 mg po bid In your professional opinion, can you please clarify the type of Atrial Fibrillation, if known? Chronic/Permanent Paroxysmal Persistent Other, please specify Unable to determine (Last Revision: June 2017) 5.Paroxysmal Atrial fibrillation; remains rate controlled on metoprolol 50 mg twice a day; continue with anticoagulation with Eliquis MTDD
[2020-06-18 16:52] LABS: Glucose,Whole Blood 160 mg/dL (75-99)
[2020-06-18 20:48] LABS: Glucose,Whole Blood 101 mg/dL (75-99)
--- NOTE | 2020-06-18 22:46 | P.PN ---
Subjective Progress Note Date: 06/18/20 Principal diagnosis: Hyperglycemia/uncontrolled diabetes mellitus Leukocytosis lactic acidosis 65-year-old male presents emergency Department chief complaint of hyperglycemia. Patient presented emergency department via EMS with blood sugar in the 300s. Patient states that he ate very poorly yesterday. Patient is insulin-dependent diabetic. Patient states that he has been very nauseated, vomiting no diarrhea no constipation. Patient had some urinary frequency. Patient denies any current complaints of chest pain or shortness breath no fevers or chills. Patient states had multiple issues with this in the past. Workup in ED with EKG reveals sinus rhythm with PVCs with left axis deviation; labs reveal a white blood count of 15.3, hemoglobin 14.8 and platelet count 464; chemical profile revealed sodium of 137, potassium 3.4, BUN is 17 with creatinine of 0.08; blood glucose of 277 Patient does have moderate lactic acidosis most likely from uncontrolled diabet es, dehydration there is no clear evidence of infection. 06/17/2020 Patient is seen and evaluated resting comfortably in bed with nursing staff at bedside; niacin any specific complaints Vital signs remained stable; blood sugars are improving but remain elevated; lactic acid remains elevated at 2.9 with elevated white blood count slightly improved from yesterday at 14.1; patient doesn't have any clear source of infection We will continue with IV fluids in form of normal saline at rate of 1 25 mL an hour; monitor CRP and pro-calcitonin and lactic acid levels with plans to consult ID if continue to trend up Objective - Vital Signs Vital signs: Vital Signs Temp 97.9 F 06/18/20 08:00 Pulse 72 06/18/20 08:00 Resp 16 06/18/20 08:00 BP 113/70 06/18/20 08:00 Pulse Ox 100 06/18/20 08:00 Intake & Output 06/17/20 06/18/20 06/18/20 18:59 06:59 18:59 Intake Total 712 1466 540 Output Total 647 172 0334 Balance -213 966 -660 Weight 74.8 kg Intake: Intake, IV Titration 1000 Amount Sodium Chloride 0.9% 1, 1000 000 ml @ 125 mls/hr IV . Q8H [facility] Rx#:[id number] Oral 712 466 540 Output: Urine 052 627 5726 Other: # Voids 300 3 - Exam PHYSICAL EXAMINATION: GENERAL: The patient is alert and oriented x3, not in any acute distress. Well developed, well nourished. HEENT: Pupils are round and equally reacting to light. EOMI. No scleral icterus. No conjunctival pallor. Normocephalic, atraumatic. No pharyngeal erythema. No thyromegaly. CARDIOVASCULAR: S1 and S2 present. No murmurs, rubs, or gallops. PULMONARY: Chest is clear to auscultation, no wheezing or crackles. ABDOMEN: Soft, nontender, nondistended, normoactive bowel sounds. No palpable organomegaly. MUSCULOSKELETAL: No joint swelling or deformity. EXTREMITIES: No cyanosis, clubbing, or pedal edema. NEUROLOGICAL: Gross neurological examination did not reveal any focal deficits. SKIN: No rashes. - Labs CBC & Chem 7: 06/18/20 07:09 06/18/20 07:09 Labs: Abnormal Lab Results - Last 24 Hours (Table) 06/17/20 06/17/20 06/17/20 Range/Units 14:00 18:18 20:44 WBC (3.8-10.6) k/uL RBC (4.30-5.90) m/uL Hgb (13.0-17.5) gm/dL Hct (39.0-53.0) % Neutrophils # (1.3-7.7) k/uL Sodium (137-145) mmol/L BUN (9-20) mg/dL Glucose (74-99) mg/dL POC Glucose (mg/dL) 72 L (75-99) mg/dL Plasma Lactic Acid Chinedu 2.9 H* 4.3 H* (0.7-2.0) mmol/L Magnesium (1.6-2.3) mg/dL 06/17/20 06/18/20 06/18/20 Range/Units 21:20 06:29 07:09 WBC 11.7 H (3.8-10.6) k/uL RBC 4.16 L (4.30-5.90) m/uL Hgb 12.5 L (13.0-17.5) gm/dL Hct 38.8 L (39.0-53.0) % Neutrophils # 8.1 H (1.3-7.7) k/uL Sodium (137-145) mmol/L BUN (9-20) mg/dL Glucose (74-99) mg/dL POC Glucose (mg/dL) 183 H (75-99) mg/dL Plasma Lactic Acid Chinedu 4.1 H* (0.7-2.0) mmol/L Magnesium (1.6-2.3) mg/dL 06/18/20 06/18/20 06/18/20 Range/Units 07:09 07:09 10:00 WBC (3.8-10.6) k/uL RBC (4.30-5.90) m/uL Hgb (13.0-17.5) gm/dL Hct (39.0-53.0) % Neutrophils # (1.3-7.7) k/uL Sodium 134 L (137-145) mmol/L BUN 22 H (9-20) mg/dL Glucose 177 H (74-99) mg/dL POC Glucose (mg/dL) (75-99) mg/dL Plasma Lactic Acid Chinedu 3.3 H* 2.8 H* (0.7-2.0) mmol/L Magnesium 1.4 L (1.6-2.3) mg/dL 06/18/20 06/18/20 Range/Units 12:05 13:15 WBC (3.8-10.6) k/uL RBC (4.30-5.90) m/uL Hgb (13.0-17.5) gm/dL Hct (39.0-53.0) % Neutrophils # (1.3-7.7) k/uL Sodium (137-145) mmol/L BUN (9-20) mg/dL Glucose (74-99) mg/dL POC Glucose (mg/dL) 119 H (75-99) mg/dL Plasma Lactic Acid Chinedu 4.2 H* (0.7-2.0) mmol/L Magnesium (1.6-2.3) mg/dL Assessment and Plan Assessment: 1. Hyperglycemia/uncontrolled diabetes mellitus; blood glucose of 464 upon arrival to - Patient will get IV fluid hydration with normal saline; patient received about 2 L in ED we will continue with normal saline at a rate of 75 mL; patient does have lactic acidosis most likely secondary to uncontrolled diabetes mellitus/dehydration; blood glucose improved to 277 - We will continue to monitor Accu-Cheks before meals and at bedtime with insulin sliding scale; continue with IV fluid hydration - We will resume home dose of metformin thousand milligrams twice a day along with Levemir 10 units subcu daily -We will hold Metformin due to lactic acidosis. 2. Leukocytosis .Possible colitis. Continued on Unasyn. Leukocytosis improving. ID is on board. 3. Lactic acidosis possibly secondary to hyperglycemia/dehydration - IV fluids in form of normal saline at rate of 75 mL an hour; we will monitor strict ALEX's, daily weights, renal function and electrolytes; monitor and trend lactic acid level 4. Electrolyte imbalance; hypokalemia/hypomagnesemia; supplemented in ED; we'll monitor electrolytes 5. Paroxysmal Atrial fibrillation; remains rate controlled on metoprolol 50 mg twice a day; continue with anticoagulation with Eliquis 6. Hypertension; lisinoprilhydrochlorothiazide 2012 0.5 daily, metoprolol 50 mg twice a day 7. Hyperlipidemia; Lipitor 40 mg by mouth daily at bedtime 8. CAD; history of CABG in past; cardiac catheterization done more recently with 5 stents; patient remains stable on aspirin, statins and beta blockers DVT prophylaxis; SCDs/systemic anticoagulation CODE STATUS; full code Time with Patient: Greater than 30
[2020-06-19] MEDS: SODIUM CHLORIDE 0.9% 1,000 ML IV SCH ×2 (04:19→13:29)
[2020-06-19] MEDS: AMPICILLIN-SULBACTAM 3 GM in SODIUM CHLORIDE 0.9% 100 ML IVPB SCH ×2 (05:52→12:14)
[2020-06-19 06:30] LABS: African American GFR (CKD) >90 (>60 ml/min/1.73 sqM); Anion Gap 6 mmol/L; Blood Urea Nitrogen 23 mg/dL (9-20); Calcium 8.9 mg/dL (8.4-10.2); Carbon Dioxide 25 mmol/L (22-30); Chloride 101 mmol/L (98-107); Glucose 175 mg/dL (74-99); Magnesium 1.6 mg/dL (1.6-2.3); Non-African American GFR(CKD) >90 (>60 ml/min/1.73 sqM); Potassium 4.2 mmol/L (3.5-5.1); Sodium 132 mmol/L (137-145)
[2020-06-19 07:12] LABS: Glucose,Whole Blood 191 mg/dL (75-99)
[2020-06-19] MEDS: INSULIN ASPART (NovoLOG) 100 UNIT/ML VIAL SQ SCH ×3 (07:48→11:55)
[2020-06-19] MEDS: ASPIRIN 81 MG PO SCH (07:49)
[2020-06-19] MEDS: ATORVASTATIN 40 MG TAB PO SCH (07:49)
[2020-06-19] MEDS: APIXABAN 5 MG TAB PO SCH (07:49)
[2020-06-19] MEDS: DULoxetine HCL 60 MG CAPSULE.DR PO SCH (07:50)
[2020-06-19] MEDS: METOPROLOL TARTRATE 50 MG TAB PO SCH (07:50)
[2020-06-19] MEDS: INSULIN DETEMIR (LEVEMIR) 100 UNIT/ML SYR SQ SCH (07:50)
[2020-06-19] MEDS: LISINOPRIL-HCTZ 20-12.5 MG 1 EACH TAB PO SCH (07:50)
[2020-06-19] MEDS: PANTOPRAZOLE 40 MG/10 ML VIAL IV SCH (07:51)
[2020-06-19] MEDS: PREGABALIN 50 MG CAP PO SCH (07:51)
[2020-06-19] MEDS: POTASSIUM CHLORIDE ER 20 MEQ TAB.ER PO SCH (07:51)
[2020-06-19] MEDS: SPIRONOLACTONE 25 MG TAB PO SCH (07:51)
[2020-06-19] MEDS: oxyCODONE ER 80 MG TAB.ER.12H PO SCH (10:25)
[2020-06-19 11:31] LABS: Glucose,Whole Blood 74 mg/dL (75-99)
[2020-06-19 16:06] VITALS: BP 125/69; PULSE 77; RESP 18; TEMP 98.1
--- NOTE | 2020-06-19 18:54 | PN ---
PROGRESS NOTE DATE OF SERVICE: 06/19/2020 REASON FOR FOLLOWUP: Colitis. INTERVAL HISTORY: The patient was seen on rounds this morning. The patient has been afebrile. He was breathing comfortably. He denies having any chest pain, shortness of breath or cough. No nausea, no vomiting, no abdominal pain or diarrhea. PHYSICAL EXAMINATION: Blood pressure 125/69, pulse of 77, temperature 98.1. He is 98% on room air. General description is a middle-aged male lying in bed in no distress. RESPIRATORY SYSTEM: Unlabored breathing. Clear to auscultation anteriorly. HEART: S1, S2. Regular rate and rhythm. ABDOMEN: Soft. No tenderness. LABS: BUN of 23, creatinine 0.82. Lactic acid 1.8. DIAGNOSTIC IMPRESSION AND PLAN: Patient admitted to hospital with nausea and vomiting with evidence of colitis on the CT. Concern for possible infectious colitis; overall improvement on Unasyn. Finish therapy with oral Augmentin and close outpatient followup. MMODL / IJN: [id number] /
[2020-06-20] MEDS ORDERED: PANTOPRAZOLE 40 MG TABLET PO SCH (07:30)
== END 2020-06-19 17:51 | disposition home or self-care (01) | DRG 638 ==
LOC: EC 07:22 → 3SCARD 09:43 → 5NMEDONC 06-18 22:45
PROVIDERS: ADMIT Internal Medicine; ATTEND Internal Medicine
DX: E11.65 Type 2 diabetes mellitus with hyperglycemia (principal); E87.2 Acidosis; E78.5 Hyperlipidemia, unspecified; E83.42 Hypomagnesemia; E86.0 Dehydration; E87.6 Hypokalemia; I10 Essential (primary) hypertension; I25.10 Atherosclerotic heart disease of native coronary artery without angina pectoris; I25.2 Old myocardial infarction; I48.0 Paroxysmal atrial fibrillation; Z20.822 Contact with and (suspected) exposure to COVID-19; I25.5 Ischemic cardiomyopathy; I49.3 Ventricular premature depolarization; K52.9 Noninfective gastroenteritis and colitis, unspecified; Z79.01 Long term (current) use of anticoagulants; Z79.4 Long term (current) use of insulin; Z79.82 Long term (current) use of aspirin; Z79.899 Other long term (current) drug therapy; Z79.891 Long term (current) use of opiate analgesic; Z82.49 Family history of ischemic heart disease and other diseases of the circulatory system; Z83.3 Family history of diabetes mellitus; Z87.891 Personal history of nicotine dependence; Z95.1 Presence of aortocoronary bypass graft; M79.605 Pain in left leg; M79.604 Pain in right leg; M54.5 Low back pain; G89.29 Other chronic pain; D72.829 Elevated white blood cell count, unspecified
CPT/HCPCS: 36415; 71046; 74177; 80048; 80053; 81001; 82150; 82803; 83605; 83690; 83735; 84145; 84484; 85025; 86140; 87635; 93005; 99285

== ENCOUNTER 2020-08-22 16:31 | Observation (INO) | payer BC, MEDICARE, OTHER ==
--- NOTE | 2020-08-22 16:56 | ED ---
General Adult HPI - General Chief complaint: Chest Pain Stated complaint: Back pain Time Seen by Provider: 08/22/20 16:44 Source: patient, EMS, RN notes reviewed, old records reviewed Mode of arrival: EMS Limitations: no limitations - History of Present Illness Initial comments: 65-year-old male with multiple medical problems presenting for evaluation of chest pain. Pain is substernal, radiating to his back. Describes this as a dull constant pain. He has no pain at the time my evaluation. He does have previous history of CAD. No previous history of aortic pathology. He denies associated cough or fever, no vomiting. No diaphoresis. - Related Data Home Medications Medication Instructions Recorded Confirmed DULoxetine HCL [Cymbalta] 60 mg PO BID 11/16/19 06/16/20 Semaglutide [Ozempic] 0.25 mg SQ WE 11/16/19 06/16/20 glipiZIDE [Glucotrol] 5 mg PO AC-BID 11/16/19 06/16/20 metFORMIN HCL 1,000 mg PO BID 11/16/19 06/16/20 Insulin Aspart [NovoLOG Flexpen] 10 units SQ AC-BID 03/01/20 06/16/20 Potassium Chloride [Klor-Con 20] 20 meq PO BID 03/01/20 06/16/20 oxyCODONE ER [OxyCONTIN] 80 mg PO Q12H 03/01/20 06/16/20 oxyCODONE HCL [oxyCODONE HCL (IR)] 15 mg PO Q8H 03/01/20 06/16/20 Lisinopril-Hctz 20-12.5 mg 1 tab PO BID 06/16/20 06/16/20 [Zestoretic 20-12.5] Metoprolol Tartrate [Lopressor] 50 mg PO BID 06/16/20 06/16/20 Nitroglycerin Sl Tabs [Nitrostat] 0.4 mg SL Q5M PRN 06/16/20 06/16/20 Pregabalin [Lyrica] 50 mg PO BID 06/16/20 06/16/20 rOPINIRole HCL [Requip] 1 mg PO BID 06/16/20 06/16/20 Previous Rx's Medication Instructions Recorded Atorvastatin [Lipitor] 40 mg PO DAILY #30 tab 10/24/19 Spironolactone [Aldactone] 25 mg PO DAILY #30 tab 10/24/19 Apixaban [Eliquis] 5 mg PO BID tab 11/18/19 Aspirin 81 mg PO DAILY #30 chew 04/10/20 Insulin Detemir [Levemir Flextouch] 10 units SQ DAILY #3 pen 04/10/20 Amoxic-Pot Clav 875-125Mg 1 tab PO Q12HR 4 Days #8 tab 06/19/20 [Augmentin 875-125] Magnesium Oxide [Mag-Ox] 400 mg PO DAILY #5 tablet 06/19/20 Allergies Allergy/AdvReac Type Severity Reaction Status Date / Time No Known Allergies Allergy Verified 08/22/20 16:36 Review of Systems ROS Statement: Those systems with pertinent positive or pertinent negative responses have been documented in the HPI. ROS Other: All systems not noted in ROS Statement are negative. Past Medical History Past Medical History: Atrial Fibrillation, Coronary Artery Disease (CAD), Chest Pain / Angina, Diabetes Mellitus, GERD/Reflux, Hyperlipidemia, Hypertension, Myocardial Infarction ([place]) Additional Past Medical History / Comment(s): Pt had CABG 07/2019 and had post op Afib/UTI with pseudomonas aeruginosa, ischemic cardiomyopathy, IDDM type II, past R scrotal abscess with sepsis, chronic lower back pain and bilateral leg pain, Last Myocardial Infarction Date:: 03/20/15 History of Any Multi-Drug Resistant Organisms: None Reported Past Surgical History: Back Surgery, Coronary Bypass/CABG, Heart Catheterization, Heart Catheterization With Stent, Orthopedic Surgery Additional Past Surgical History / Comment(s): 08/23/2019 CABG 3 vessels, PCI with total of 5 stents, L ankle ligament repair, R leg ORIF, low back surgery, colonoscopy. Past Anesthesia/Blood Transfusion Reactions: No Reported Reaction Additional Past Anesthesia/Blood Transfusion Reaction / Comment(s): Pt has received blood in past without reaction. Date of Last Stent Placement:: 02/2015 Past Psychological History: No Psychological Hx Reported Smoking Status: Former smoker Past Alcohol Use History: None Reported Past Drug Use History: Marijuana - Past Family History Sister(s) Family Medical History: Coronary Artery Disease (CAD), Hypertension Father Family Medical History: Coronary Artery Disease (CAD), Diabetes Mellitus, Deep Vein Thrombosis (DVT), Hypertension Additional Family Medical History / Comment(s): Father at age 58yrs. He of blood clot from leg injury that went to his heart. General Exam Limitations: no limitations General appearance: alert, in no apparent distress Head exam: Present: atraumatic, normocephalic Eye exam: Present: normal appearance, PERRL ENT exam: Present: normal exam Neck exam: Present: normal inspection. Absent: tenderness, meningismus Respiratory exam: Present: normal lung sounds bilaterally. Absent: respiratory distress, wheezes Cardiovascular Exam: Present: regular rate, normal rhythm GI/Abdominal exam: Present: soft. Absent: distended, tenderness, guarding, rebound Extremities exam: Present: normal inspection, normal capillary refill. Absent: pedal edema, calf tenderness Back exam: Present: normal inspection. Absent: tenderness Neurological exam: Present: alert, oriented X3, CN II-XII intact. Absent: motor sensory deficit Psychiatric exam: Present: normal affect, normal mood Skin exam: Present: warm, dry, intact Course Vital Signs 08/22/20 08/22/20 16:33 18:21 Temperature 98.7 F Pulse Rate 80 73 Respiratory 20 22 Rate Blood Pressure 91/60 95/42 O2 Sat by Pulse 99 100 Oximetry - Reevaluation(s) Reevaluation #1: 08/22/20 17:09 No current pain complaints. EKG Findings - EKG Comments: EKG Findings:: EKG: Normal sinus rhythm, left axis no ST segment elevation, T- wave inversion in aVL, rate 76, MI interval 172, QRS duration 108, QTC 481 Medical Decision Making - Medical Decision Making 65-year-old male with central chest pain radiating to his back. EKG negative for ST segment elevation per chest x-ray negative for acute cardiopulmonary disease. Given the symptoms CT angiography was performed which is negative for dissection or aneurysm. He had a mildly elevated creatinine 1.26. Troponin 0.019. He is anticoagulated at baseline. He will be kept in observation for stroke or headache enzymes, telemetry, cardiology consultation. Case discussed with Dr. Lovell who will admit. - Lab Data Result diagrams: 08/22/20 16:50 08/22/20 16:50 Lab Results 08/22/20 08/22/20 08/22/20 Range/Units 16:50 16:50 16:50 WBC 11.4 H (3.8-10.6) k/uL RBC 3.77 L (4.30-5.90) m/uL Hgb 12.0 L (13.0-17.5) gm/dL Hct 35.1 L (39.0-53.0) % MCV 93.0 (80.0-100.0) fL MCH 31.8 (25.0-35.0) pg MCHC 34.2 (31.0-37.0) g/dL RDW 14.0 (11.5-15.5) % Plt Count 379 (150-450) k/uL MPV 7.1 Neutrophils % 72 % Lymphocytes % 18 % Monocytes % 7 % Eosinophils % 2 % Basophils % 0 % Neutrophils # 8.2 H (1.3-7.7) k/uL Lymphocytes # 2.1 (1.0-4.8) k/uL Monocytes # 0.8 (0-1.0) k/uL Eosinophils # 0.2 (0-0.7) k/uL Basophils # 0.0 (0-0.2) k/uL PT 10.4 (9.0-12.0) sec INR 1.0 (<1.2) APTT 25.7 (22.0-30.0) sec Sodium 137 (137-145) mmol/L Potassium 3.7 (3.5-5.1) mmol/L Chloride 100 (98-107) mmol/L Carbon Dioxide 29 (22-30) mmol/L Anion Gap 8 mmol/L BUN 22 H (9-20) mg/dL Creatinine 1.26 H (0.66-1.25) mg/dL Est GFR (CKD-EPI)AfAm 70 (>60 ml/min/1.73 sqM) Est GFR (CKD-EPI)NonAf 60 (>60 ml/min/1.73 sqM) Glucose 205 H (74-99) mg/dL Calcium 9.1 (8.4-10.2) mg/dL Magnesium 1.8 (1.6-2.3) mg/dL Total Bilirubin 0.2 (0.2-1.3) mg/dL AST 16 L (17-59) U/L ALT 10 (4-49) U/L Alkaline Phosphatase 74 (38-126) U/L Troponin I (0.000-0.034) ng/mL Total Protein 5.6 L (6.3-8.2) g/dL Albumin 3.3 L (3.5-5.0) g/dL Amylase 68 (30-110) U/L Lipase 38 (23-300) U/L 08/22/20 Range/Units 16:50 WBC (3.8-10.6) k/uL RBC (4.30-5.90) m/uL Hgb (13.0-17.5) gm/dL Hct (39.0-53.0) % MCV (80.0-100.0) fL MCH (25.0-35.0) pg MCHC (31.0-37.0) g/dL RDW (11.5-15.5) % Plt Count (150-450) k/uL MPV Neutrophils % % Lymphocytes % % Monocytes % % Eosinophils % % Basophils % % Neutrophils # (1.3-7.7) k/uL Lymphocytes # (1.0-4.8) k/uL Monocytes # (0-1.0) k/uL Eosinophils # (0-0.7) k/uL Basophils # (0-0.2) k/uL PT (9.0-12.0) sec INR (<1.2) APTT (22.0-30.0) sec Sodium (137-145) mmol/L Potassium (3.5-5.1) mmol/L Chloride (98-107) mmol/L Carbon Dioxide (22-30) mmol/L Anion Gap mmol/L BUN (9-20) mg/dL Creatinine (0.66-1.25) mg/dL Est GFR (CKD-EPI)AfAm (>60 ml/min/1.73 sqM) Est GFR (CKD-EPI)NonAf (>60 ml/min/1.73 sqM) Glucose (74-99) mg/dL Calcium (8.4-10.2) mg/dL Magnesium (1.6-2.3) mg/dL Total Bilirubin (0.2-1.3) mg/dL AST (17-59) U/L ALT (4-49) U/L Alkaline Phosphatase (38-126) U/L Troponin I 0.019 (0.000-0.034) ng/mL Total Protein (6.3-8.2) g/dL Albumin (3.5-5.0) g/dL Amylase (30-110) U/L Lipase (23-300) U/L Disposition Clinical Impression: Chest pain Disposition: ADMITTED IP TO THIS [facility] Condition: Stable Is patient prescribed a controlled substance at d/c from ED?: No Referrals: Puma Lovell MD [Primary Care Provider] - 1-2 days Decision to Admit Reason: Admit from EC Decision Date: 08/22/20 Decision Time: 19:42
[2020-08-22 17:14] LABS: Basophils % (A) 0 %; Eosinophils # (A) 0.2 k/uL (0-0.7); Eosinophils % (A) 2 %; HCT 35.1 % (39.0-53.0); Lymphocytes # (A) 2.1 k/uL (1.0-4.8); Lymphocytes % (A) 18 %; MCH 31.8 pg (25.0-35.0); MCHC 34.2 g/dL (31.0-37.0); Mean Platelet Volume 7.1; Monocytes # (A) 0.8 k/uL (0-1.0); Monocytes % (A) 7 %; Neutrophils # (A) 8.2 k/uL (1.3-7.7); Neutrophils % (A) 72 %; Platelet Count 379 k/uL (150-450); RBC 3.77 m/uL (4.30-5.90); WBC 11.4 k/uL (3.8-10.6)
[2020-08-22 17:18] LABS: Albumin 3.3 g/dL (3.5-5.0); Calcium 9.1 mg/dL (8.4-10.2); Magnesium 1.8 mg/dL (1.6-2.3); Potassium 3.7 mmol/L (3.5-5.1); Total Bilirubin 0.2 mg/dL (0.2-1.3); Total Protein 5.6 g/dL (6.3-8.2)
[2020-08-22 17:35] LABS: Partial Thromboplastin Time 25.7 sec (22.0-30.0); Prothrombin Time 10.4 sec (9.0-12.0)
--- NOTE | 2020-08-22 18:01 | XR ---
EXAMINATION TYPE: XR chest 2V DATE OF EXAM: 08/22/2020 COMPARISON: 06/16/2020 HISTORY: Chest pain TECHNIQUE: FINDINGS: Heart is normal. There are sternal wires. Lungs are clear of infiltrate. There is no heart failure. Bony thorax is intact. IMPRESSION: No active cardiopulmonary disease. Normal heart. No change.
[2020-08-22] MEDS ORDERED: SODIUM CHLORIDE 0.9% 1,000 ML IV ONE (18:10)
--- NOTE | 2020-08-22 19:05 | CT ---
EXAMINATION TYPE: CT angio thor/abd pel aorta DATE OF EXAM: 08/22/2020 COMPARISON: 08/11/2019 HISTORY: Upper back and chest pain. CT DLP: 854.2 mGycm Automated exposure control for dose reduction was used. CONTRAST: Performed without and with IV Contrast, patient injected with 80 mL of Isovue 370. Images obtained from the thoracic inlet to the floor the pelvis with IV contrast. There are 3-D post processed images. Thoracic aorta is intact. There is no aneurysm or dissection. The ascending aorta measures 3 cm. I se e no filling defect in the pulmonary arteries. There is some atheromatous change in the thoracic aort a. Heart size is normal. There is no pericardial effusion. The lungs are clear of infiltrate. There i s no evidence of a pulmonary mass. There is no pleural effusion. There is minimal subsegmental atelec tasis left lung base. There is no suspicious pulmonary mass. There is arterial flow in the celiac artery and superior mesenteric artery. There is arterial flow in both renal arteries. There is arterial flow in the iliac and femoral arteries. There is variable ath erosclerotic plaque formation. There is no free fluid in the pelvis. There is some retained fecal mat erial in the rectum. There is no pelvic mass. There is lumen narrowing up to 50% due to plaque format ion in the external iliac arteries. There is no abdominal aortic aneurysm. There is no dissection. Liver spleen stomach pancreas gallbladder appear normal. The bile ducts are not dilated. There is no adrenal mass. Kidneys show satisfactory contrast opacification. There is no hydronephrosis. There is no retroperitoneal adenopathy. There is multilevel lumbar laminectomy defect. There is multilevel lum bar facet arthropathy. Appendix appears normal. There is no mesenteric edema. There is no ascites or free air. There is no bowel obstruction. The thoracic and lumbar vertebra appear intact with no signi ficant compression deformity. Bony pelvis is intact. There is some thickening of the left and right a drenal gland consistent with hypertrophy. IMPRESSION: No evidence of arterial aneurysm or dissection. No evidence of pulmonary embolism. Atherosclerotic plaque formation with up to 50% stenosis in the iliac arteries. No significant change compared to old exam.
[2020-08-22] MEDS ORDERED: ASPIRIN 325 MG TAB PO STA (19:22)
[2020-08-22] MEDS ORDERED: ACETAMINOPHEN TAB 325 MG TAB PO PRN (19:40)
[2020-08-22] MEDS ORDERED: NALOXONE 0.4 MG/ML 1 ML VIAL IV PRN (19:40)
[2020-08-22] MEDS ORDERED: oxyCODONE-APAP 10-325MG 1 EACH TAB PO PRN (21:39)
[2020-08-22] MEDS ORDERED: NON FORMULARY DRUG (Semaglutide [Ozempic] 0.25 MG/0.2 ML Pen.Injctr) SQ SCH (21:45)
[2020-08-22] MEDS ORDERED: OXYCODONE HCL 15 MG PO SCH (21:45)
[2020-08-22] MEDS ORDERED: INSULIN DETEMIR (LEVEMIR) 100 UNIT/ML SYR SQ SCH (22:00)
[2020-08-22] MEDS: METOPROLOL TARTRATE 50 MG TAB PO SCH (22:15)
[2020-08-22] MEDS: APIXABAN 5 MG TAB PO SCH (22:15)
[2020-08-22 22:16] LABS: Glucose,Whole Blood 275 mg/dL (75-99)
[2020-08-22] MEDS: PREGABALIN 75 MG CAP PO SCH (22:16)
[2020-08-22] MEDS: oxyCODONE ER 80 MG TAB.ER.12H PO SCH (22:16)
[2020-08-23] MEDS: MORPHINE SULFATE 4 MG/ML SYRINGE IV PRN ×2 (00:38→05:01)
[2020-08-23 06:59] LABS: Glucose,Whole Blood 105 mg/dL (75-99)
[2020-08-23] MEDS ORDERED: INSULIN ASPART (NovoLOG) 100 UNIT/ML VIAL SQ SCH ×2 (07:30)
[2020-08-23 07:37] VITALS: BP 125/72; PULSE 63; RESP 18; TEMP 97.6
[2020-08-23] MEDS ORDERED: SPIRONOLACTONE 25 MG TAB PO SCH (09:00)
[2020-08-23] MEDS ORDERED: DULoxetine HCL 60 MG CAPSULE.DR PO SCH (09:00)
[2020-08-23] MEDS ORDERED: ATORVASTATIN 40 MG TAB PO SCH (09:00)
[2020-08-23] MEDS ORDERED: LISINOPRIL-HCTZ 20-12.5 MG 1 EACH TAB PO SCH (09:00)
[2020-08-23] MEDS ORDERED: ASPIRIN 81 MG PO SCH (09:00)
[2020-08-23] MEDS: PREGABALIN 75 MG CAP PO SCH (09:02)
[2020-08-23] MEDS: APIXABAN 5 MG TAB PO SCH (09:02)
[2020-08-23] MEDS: oxyCODONE ER 80 MG TAB.ER.12H PO SCH (09:04)
[2020-08-23] MEDS: METOPROLOL TARTRATE 50 MG TAB PO SCH (09:24)
[2020-08-23] MEDS ORDERED: carvediloL 6.25 MG TAB PO SCH (09:30)
--- NOTE | 2020-08-23 13:46 | P.CRDCN ---
History of Present Illness History of present illness: HISTORY OF PRESENT ILLNESS: This is a 65-year-old male with a past medical hi story significant for hypertension, hyperlipidemia, paroxysmal atrial fibrillation, systolic congestive heart failure, ischemic cardiomyopathy, and coronary artery disease with previous PCI to the RCA in 2007 and 2014 and CABG 3 in July 2019. Patient follows in the office with Dr. Hua. Patient presents to the emergency department with complaints of chest pain. His pain is located substernal. Nonradiating. Dull constant pain. Patient denies shortness of breath, nausea, diaphoresis. CT angios was performed which was negative for dissection and aneurysm. Patient was last seen in the office with Dr. Hua in 05/2020 patient was therefore cardiac clearance for stimulated implantation for the patient. Patient's blood pressure 04/23/1969, heart rate 63, afebrile, maintaining oxygen saturation 79% on room air DIAGNOSTICS: EKG reveals sinus rhythm, heart rate 76, left axis deviation, T-wave inversions in leads 1 and aVL. Prior EKG sinus rhythm heart rate 67, left axis deviation, no significant STT wave abnormalities. Chest xray no active cardiopulmonary disease Laboratory data: WBC 11.4, hemoglobin 12, platelets 379, sodium 137, potassium 3.7, serum creatinine 1.26, BUN 22, magnesium 1.8, troponin negative 3, COVID- 19 negative Current home cardiac medications include lisinopril 30 mg daily, Aldactone 25 mg daily, metoprolol 75 mg twice a day, Plavix 75 mg daily, Lipitor 40 g daily, and Eliquis 5 mg twice a day Echo Cardizem completed on 03/02/2020 revealed ejection fraction 40-45%. REVIEW OF SYSTEMS: At the time of my exam: CONSTITUTIONAL: Denies fever or chills. HEENT: Denies blurred vision, vision changes, or eye pain. Denies hemoptysis CARDIOVASCULAR: Positive chest pain Deniesorthopnea, PND or palpitations RESPIRATORY: No shortness of breath. GASTROINTESTINAL: Denies abdominal pain. Denies nausea or vomiting. HEMATOLOGIC: Denies bleeding disorders. GENITOURINARY: Denies any blood in urine. SKIN: Denies pruitis. Denies rash. PHYSICAL EXAM: VITAL SIGNS: Reviewed. GENERAL: Well-developed in no acute distress. HEENT: Head is normocephalic. Pupils are equal, round. Sclerae anicteric. Mucous membranes of the mouth are moist. Neck supple. No JVD or thyromegaly LUNGS: Respirations even and unlabored. Lungs essentially clear to auscultation bilaterally. HEART: Regular rate and rhythm. S1 and S2 heard. ABDOMEN: Soft. Nondistended. Nontender. EXTREMITIES: Normal range of motion. No clubbing or cyanosis. Peripheral pulses intact. No lower extremity edema NEUROLOGIC: Awake and alert. Oriented x 3. ASSESSMENT: Chest pain, acute coronary syndrome ruled out Acute Kidney Injury Coronary artery disease with previous PCI to RCA in 2007 and 2014 and CABG 3 in July 2019 Paroxysmal atrial fibrillation, on anticoagulation with Eliquis Ischemic cardiomyopathy, ejection fraction 40-45% Chronic systolic congestive heart failure, currently euvolemic Hypertension Hyperlipidemia Marijuana use PLAN: An acute coronary event has been ruled out with no EKG evidence of ischemia and negative cardiac enzymes. No need to repeat 2D echocardiogram Recommend transitioning to carvedilol 6.25mg BID and discontinuing patient's metoprolol Follow up with Dr. Hua, for stress test if indicated Rest of management per primary Thank you kindly for this consultation. No further recommendations from cardiology perspective Past Medical History Past Medical History: Atrial Fibrillation, Coronary Artery Disease (CAD), Chest Pain / Angina, Diabetes Mellitus, GERD/Reflux, Hyperlipidemia, Hypertension, Myocardial Infarction ([place]) Additional Past Medical History / Comment(s): Pt had CABG 07/2019 and had post op Afib/UTI with pseudomonas aeruginosa, ischemic cardiomyopathy, IDDM type II, past R scrotal abscess with sepsis, chronic lower back pain and bilateral leg pain, Last Myocardial Infarction Date:: 03/20/15 History of Any Multi-Drug Resistant Organisms: None Reported Past Surgical History: Back Surgery, Coronary Bypass/CABG, Heart Catheterization, Heart Catheterization With Stent, Orthopedic Surgery Additional Past Surgical History / Comment(s): 08/23/2019 CABG 3 vessels, PCI with total of 5 stents, L ankle ligament repair, R leg ORIF, low back surgery, colonoscopy. Past Anesthesia/Blood Transfusion Reactions: No Reported Reaction Additional Past Anesthesia/Blood Transfusion Reaction / Comment(s): Pt has received blood in past without reaction. Date of Last Stent Placement:: 02/2015 Past Psychological History: No Psychological Hx Reported Additional Psychological History / Comment(s): Pt resides with his sister. He has a cane to ambulate and a glucometer. He has home care thru [facility]. He cannot currently drive d/t recent CABG, his [facility] takes him to [facility]. Smoking Status: Former smoker Past Alcohol Use History: None Reported Additional Past Alcohol Use History / Comment(s): Pt started smoking in 1968 and quit in 2014. He was a 2 ppd smoker. Pt states he was a heavy drinker but quit in 2001. Past Drug Use History: Marijuana Additional Drug Use History / Comment(s): Occasional marijuana. - Past Family History Sister(s) Family Medical History: Coronary Artery Disease (CAD), Hypertension Father Family Medical History: Coronary Artery Disease (CAD), Diabetes Mellitus, Deep Vein Thrombosis (DVT), Hypertension Additional Family Medical History / Comment(s): Father at age 58yrs. He of blood clot from leg injury that went to his heart. Medications and Allergies Home Medications Medication Instructions Recorded Confirmed Type Atorvastatin [Lipitor] 40 mg PO DAILY #30 tab 10/24/19 08/22/20 Rx Spironolactone [Aldactone] 25 mg PO DAILY #30 tab 10/24/19 08/22/20 Rx DULoxetine HCL [Cymbalta] 60 mg PO BID 11/16/19 08/22/20 History Semaglutide [Ozempic] 0.25 mg SQ WE 11/16/19 08/22/20 History glipiZIDE [Glucotrol] 5 mg PO AC-BID 11/16/19 08/22/20 History metFORMIN HCL 1,000 mg PO BID 11/16/19 08/22/20 History Apixaban [Eliquis] 5 mg PO BID tab 11/18/19 08/22/20 Rx Insulin Aspart [NovoLOG Flexpen] 10 units SQ AC-TID 03/01/20 08/22/20 History oxyCODONE ER [OxyCONTIN] 80 mg PO Q12H 03/01/20 08/22/20 History oxyCODONE HCL [oxyCODONE HCL (IR)] 15 mg PO Q8H 03/01/20 08/22/20 History Aspirin 81 mg PO DAILY #30 chew 04/10/20 08/22/20 Rx Lisinopril-Hctz 20-12.5 mg 1 tab PO BID 06/16/20 08/22/20 History [Zestoretic 20-12.5] rOPINIRole HCL [Requip] 1 mg PO BID 06/16/20 08/22/20 History Insulin Glargine,Hum.rec.anlog 25 unit SQ HS 08/22/20 08/22/20 History [Basaglar Kwikpen U-100] Pregabalin [Lyrica] 75 mg PO BID 08/22/20 08/22/20 History carvediloL [Coreg] 6.25 mg PO BID-W/MEALS #60 tab 08/23/20 Rx Allergies Allergy/AdvReac Type Severity Reaction Status Date / Time No Known Allergies Allergy Verified 08/22/20 19:58 Physical Exam Vitals: Vital Signs Temp Pulse Pulse Resp BP BP Pulse Ox 08/23/20 02:00 97.4 F L 72 17 131/77 98 08/22/20 22:09 98.1 F 89 17 161/94 99 08/22/20 22:07 22 08/22/20 18:21 73 22 95/42 100 08/22/20 16:33 98.7 F 80 20 91/60 99 Intake and Output 08/22/20 08/23/20 08/23/20 22:59 06:59 14:59 Intake Total 700 Balance 700 Intake: Oral 700 Other: Voiding Method Toilet Toilet # Voids 1 Weight 170 kg Results 08/22/20 16:50 08/22/20 16:50 Cardiac Enzymes 08/22/20 08/22/20 08/22/20 Range/Units 16:50 16:50 21:11 AST 16 L (17-59) U/L Troponin I 0.019 0.021 (0.000-0.034) ng/mL 08/23/20 Range/Units 00:57 AST (17-59) U/L Troponin I 0.028 (0.000-0.034) ng/mL Coagulation 08/22/20 Range/Units 16:50 PT 10.4 (9.0-12.0) sec APTT 25.7 (22.0-30.0) sec CBC 08/22/20 Range/Units 16:50 WBC 11.4 H (3.8-10.6) k/uL RBC 3.77 L (4.30-5.90) m/uL Hgb 12.0 L (13.0-17.5) gm/dL Hct 35.1 L (39.0-53.0) % Plt Count 379 (150-450) k/uL Comprehensive Metabolic Panel 08/22/20 Range/Units 16:50 Sodium 137 (137-145) mmol/L Potassium 3.7 (3.5-5.1) mmol/L Chloride 100 (98-107) mmol/L Carbon Dioxide 29 (22-30) mmol/L BUN 22 H (9-20) mg/dL Creatinine 1.26 H (0.66-1.25) mg/dL Glucose 205 H (74-99) mg/dL Calcium 9.1 (8.4-10.2) mg/dL AST 16 L (17-59) U/L ALT 10 (4-49) U/L Alkaline Phosphatase 74 (38-126) U/L Total Protein 5.6 L (6.3-8.2) g/dL Albumin 3.3 L (3.5-5.0) g/dL Current Medications Generic Name Dose Route Start Last Admin Trade Name Freq PRN Reason Stop Dose Admin Acetaminophen 650 mg 08/22/20 19:40 Acetaminophen Tab 325 Mg Tab PO Q6HR PRN Mild Pain or Fever > 100.5 Apixaban 5 mg 08/22/20 21:45 08/22/20 22:15 Apixaban 5 Mg Tab PO 5 mg BID [facility] Administration Aspirin 81 mg 08/23/20 09:00 Aspirin 81 Mg PO DAILY [facility] Atorvastatin Calcium 40 mg 08/23/20 09:00 Atorvastatin 40 Mg Tab PO DAILY [facility] Duloxetine HCl 60 mg 08/23/20 09:00 Duloxetine Hcl 60 Mg Capsule. PO BID [facility] Lisinopril/HCTZ 1 each 08/23/20 09:00 Lisinopril-Hctz 20-12.5 Mg 1 Each Tab PO BID [facility] Insulin Aspart 10 unit 08/23/20 07:30 08/23/20 07:21 Insulin Aspart (Novolog) 100 Unit/Ml Vial SQ Not Given AC-TID [facility] Insulin Aspart 0 unit 08/23/20 07:30 08/23/20 07:21 Insulin Aspart (Novolog) 100 Unit/Ml Vial SQ Not Given ACHS [facility] Protocol Insulin Detemir 20 unit 08/22/20 22:00 08/22/20 22:16 Insulin Detemir (Levemir) 100 Unit/Ml Syr SQ 20 unit HS [facility] Administration Metoprolol Tartrate 50 mg 08/22/20 21:45 08/22/20 22:15 Metoprolol Tartrate 50 Mg Tab PO 50 mg BID [facility] Administration Morphine Sulfate 4 mg 08/22/20 19:40 08/23/20 05:01 Morphine Sulfate 4 Mg/Ml Syringe IV 4 mg Q4HR PRN Administration Severe Pain Naloxone HCl 0.2 mg 08/22/20 19:40 Naloxone 0.4 Mg/Ml 1 Ml Vial IV Q2M PRN Opioid Reversal Non-Formulary Medication 0.25 mg 08/22/20 21:45 08/22/20 22:11 Semaglutide [Ozempic] SQ Not Given WE [facility] Oxycodone HCl 80 mg 08/22/20 22:00 08/22/20 22:16 Oxycodone Er 80 Mg Tab.Er.12h PO 80 mg Q12H [facility] Administration Oxycodone/Acetaminophen 1 each 08/22/20 21:39 Oxycodone-Apap 10-325mg 1 Each Tab PO Q6H PRN Pain Pregabalin 75 mg 08/22/20 21:45 08/22/20 22:16 Pregabalin 75 Mg Cap PO 75 mg BID [facility] Administration Ropinirole HCl 1 mg 08/23/20 09:00 Ropinirole Hcl 1 Mg Tab PO BID [facility] Spironolactone 25 mg 08/23/20 09:00 Spironolactone 25 Mg Tab PO DAILY [facility] Intake and Output 08/22/20 08/23/20 08/23/20 22:59 06:59 14:59 Intake Total 700 Balance 700 Intake: Oral 700 Other: Voiding Method Toilet Toilet # Voids 1 Weight 170 kg 08/22/20 16:50 08/22/20 16:50
[2020-08-23 22:01] LABS: Chol/HDL Ratio 2.39; LDL Cholesterol,Calculated 39.2 mg/dL (0.0-131.0); VLDL Calculation 17.8 mg/dL (5.00-40.00)
--- NOTE | 2020-09-02 22:53 | P.HPIM ---
History of Present Illness H&P Date: 08/23/20 Chief Complaint: chest pain Ashok Austin is a 65 yo M with PMH CAD s/p CABG, ischemic cardiomyopathy, systolic CHF, atrial fibrillation who presented to the Patient presents to the emergency department with complaints of substernal chest pain. He states this came on at rest and lasted for more than 15 min, describes as dull ache. Patient denies shortness of breath, nausea, diaphoresis. On presentation vitals stable, labs with WBC 11.4k, Hgb 12, Cr 1.2, trop negative, COVID negative. CTA negative for dissection and aneurysm. Review of Systems All systems: negative Constitutional: Denies chills, Denies fever Eyes: denies blurred vision, denies pain Ears, nose, mouth and throat: Denies headache, Denies sore throat Cardiovascular: Reports chest pain, Denies shortness of breath Respiratory: Denies cough Gastrointestinal: Denies abdominal pain, Denies diarrhea, Denies nausea, Denies vomiting Musculoskeletal: Denies myalgias Integumentary: Denies pruritus, Denies rash Neurological: Denies numbness, Denies weakness Psychiatric: Denies anxiety, Denies depression Endocrine: Denies fatigue, Denies weight change Past Medical History Past Medical History: Atrial Fibrillation, Coronary Artery Disease (CAD), Chest Pain / Angina, Diabetes Mellitus, GERD/Reflux, Hyperlipidemia, Hypertension, Myocardial Infarction ([place]) Additional Past Medical History / Comment(s): Pt had CABG 07/2019 and had post op Afib/UTI with pseudomonas aeruginosa, ischemic cardiomyopathy, IDDM type II, past R scrotal abscess with sepsis, chronic lower back pain and bilateral leg pain, Last Myocardial Infarction Date:: 03/20/15 History of Any Multi-Drug Resistant Organisms: None Reported Past Surgical History: Back Surgery, Coronary Bypass/CABG, Heart Catheterization, Heart Catheterization With Stent, Orthopedic Surgery Additional Past Surgical History / Comment(s): 08/23/2019 CABG 3 vessels, PCI with total of 5 stents, L ankle ligament repair, R leg ORIF, low back surgery, colonoscopy. Past Anesthesia/Blood Transfusion Reactions: No Reported Reaction Additional Past Anesthesia/Blood Transfusion Reaction / Comment(s): Pt has received blood in past without reaction. Date of Last Stent Placement:: 02/2015 Past Psychological History: No Psychological Hx Reported Additional Psychological History / Comment(s): Pt resides with his sister. He has a cane to ambulate and a glucometer. He has home care thru [facility]. He cannot currently drive d/t recent CABG, his evangelina takes him to app. Smoking Status: Former smoker Past Alcohol Use History: None Reported Additional Past Alcohol Use History / Comment(s): Pt started smoking in 1968 and quit in 2014. He was a 2 ppd smoker. Pt states he was a heavy drinker but quit in 2001. Past Drug Use History: Marijuana Additional Drug Use History / Comment(s): Occasional marijuana. - Past Family History Sister(s) Family Medical History: Coronary Artery Disease (CAD), Hypertension Father Family Medical History: Coronary Artery Disease (CAD), Diabetes Mellitus, Deep Vein Thrombosis (DVT), Hypertension Additional Family Medical History / Comment(s): Father at age 58yrs. He of blood clot from leg injury that went to his heart. Medications and Allergies Home Medications Medication Instructions Recorded Confirmed Type Atorvastatin [Lipitor] 40 mg PO DAILY #30 tab 10/24/19 08/22/20 Rx Spironolactone [Aldactone] 25 mg PO DAILY #30 tab 10/24/19 08/22/20 Rx DULoxetine HCL [Cymbalta] 60 mg PO BID 11/16/19 08/22/20 History Semaglutide [Ozempic] 0.25 mg SQ WE 11/16/19 08/22/20 History glipiZIDE [Glucotrol] 5 mg PO AC-BID 11/16/19 08/22/20 History metFORMIN HCL 1,000 mg PO BID 11/16/19 08/22/20 History Apixaban [Eliquis] 5 mg PO BID tab 11/18/19 08/22/20 Rx Insulin Aspart [NovoLOG Flexpen] 10 units SQ AC-TID 03/01/20 08/22/20 History oxyCODONE ER [OxyCONTIN] 80 mg PO Q12H 03/01/20 08/22/20 History oxyCODONE HCL [oxyCODONE HCL (IR)] 15 mg PO Q8H 03/01/20 08/22/20 History Aspirin 81 mg PO DAILY #30 chew 04/10/20 08/22/20 Rx Lisinopril-Hctz 20-12.5 mg 1 tab PO BID 06/16/20 08/22/20 History [Zestoretic 20-12.5] rOPINIRole HCL [Requip] 1 mg PO BID 06/16/20 08/22/20 History Insulin Glargine,Hum.rec.anlog 25 unit SQ HS 08/22/20 08/22/20 History [Basaglar Kwikpen U-100] Pregabalin [Lyrica] 75 mg PO BID 08/22/20 08/22/20 History carvediloL [Coreg] 6.25 mg PO BID-W/MEALS #60 tab 08/23/20 Rx Allergies Allergy/AdvReac Type Severity Reaction Status Date / Time No Known Allergies Allergy Verified 08/22/20 19:58 Physical Exam General: well nourished, well developed, NAD. Vitals reviewed Eyes: PERRL, EOMI, conjunctiva normal HENT: normocephalic, mucus membranes moist Neck: supple, no JVD Lungs: normal respiratory effort, no wheezes or rales CV: Regular rate and rhythm, no murmur. Peripheral pulses 2+ Abdomen: soft, nondistended, no organomegaly Lymph: no cervical or axillary LAD Skin: warm and dry. Neuro: A&Ox3, normal mood and affect Results CBC & Chem 7: 08/22/20 16:50 08/22/20 16:50 Thrombosis Risk Factor Assmnt - Choose All That Apply Each Factor Represents 1 point: Obesity (BMI >25) Each Risk Factor Represents 2 Points: Age 61-74 years Thrombosis Risk Factor Assessment Total Risk Factor Score: 3 Thrombosis Risk Factor Assessment Level: Moderate Risk Assessment and Plan Plan: 1. Chest pain. ACS ruled out. cardiology consulted for further evaluation. Continue home cardiac meds 2. A fib. Continue home medications 3. HTN 4. Chronic systolic CHF
--- NOTE | 2020-09-10 08:19 | P.DS ---
Providers Date of admission: 08/22/20 19:40 Expected date of discharge: 08/23/20 Attending physician: Puma Lovell MD Consults: 08/22/20 19:40 Consult Physician Routine Consulting Provider: Heriberto Arredondo Consult Reason/Comments: CP Do you want consulting provider notified?: Yes Primary care physician: Puma Lovell MD Hospital Course: Ashok Austin is a 65 yo M with PMH CAD s/p CABG, ischemic cardiomyopathy, systolic CHF, atrial fibrillation who presented to the Patient presents to the emergency department with complaints of substernal chest pain. He states this came on at rest and lasted for more than 15 min, describes as dull ache. Patient denies shortness of breath, nausea, diaphoresis. On presentation vitals stable, labs with WBC 11.4k, Hgb 12, Cr 1.2, trop negative, COVID negative. CTA negative for dissection and aneurysm. Pt was evaluated by Cardiology who recommended switching her metoprolol to carvedilol. He is discharged in stable condition and recomemnded to follow up with his PCP and cardiology as an outpatient. Patient Condition at Discharge: Stable Plan - Discharge Summary Discharge Rx Participant: No New Discharge Prescriptions: New carvediloL [Coreg] 6.25 mg PO BID-W/MEALS #60 tab Continue Spironolactone [Aldactone] 25 mg PO DAILY #30 tab Atorvastatin [Lipitor] 40 mg PO DAILY #30 tab DULoxetine HCL [Cymbalta] 60 mg PO BID glipiZIDE [Glucotrol] 5 mg PO AC-BID metFORMIN HCL 1,000 mg PO BID Semaglutide [Ozempic] 0.25 mg SQ WE Apixaban [Eliquis] 5 mg PO BID tab Insulin Aspart [NovoLOG Flexpen] 10 units SQ AC-TID oxyCODONE ER [OxyCONTIN] 80 mg PO Q12H oxyCODONE HCL [oxyCODONE HCL (IR)] 15 mg PO Q8H Aspirin 81 mg PO DAILY #30 chew rOPINIRole HCL [Requip] 1 mg PO BID Lisinopril-Hctz 20-12.5 mg [Zestoretic 20-12.5] 1 tab PO BID Pregabalin [Lyrica] 75 mg PO BID Insulin Glargine,Hum.rec.anlog [Basaglar Kwikpen U-100] 25 unit SQ HS Discontinued Metoprolol Tartrate [Lopressor] 50 mg PO BID Discharge Medication List Atorvastatin [Lipitor] 40 mg PO DAILY #30 tab 10/24/19 [Rx] Spironolactone [Aldactone] 25 mg PO DAILY #30 tab 10/24/19 [Rx] DULoxetine HCL [Cymbalta] 60 mg PO BID 11/16/19 [History] Semaglutide [Ozempic] 0.25 mg SQ WE 11/16/19 [History] glipiZIDE [Glucotrol] 5 mg PO AC-BID 11/16/19 [History] metFORMIN HCL 1,000 mg PO BID 11/16/19 [History] Apixaban [Eliquis] 5 mg PO BID tab 11/18/19 [Rx] Insulin Aspart [NovoLOG Flexpen] 10 units SQ AC-TID 03/01/20 [History] oxyCODONE ER [OxyCONTIN] 80 mg PO Q12H 03/01/20 [History] oxyCODONE HCL [oxyCODONE HCL (IR)] 15 mg PO Q8H 03/01/20 [History] Aspirin 81 mg PO DAILY #30 chew 04/10/20 [Rx] Lisinopril-Hctz 20-12.5 mg [Zestoretic 20-12.5] 1 tab PO BID 06/16/20 [History] rOPINIRole HCL [Requip] 1 mg PO BID 06/16/20 [History] Insulin Glargine,Hum.rec.anlog [Basaglar Kwikpen U-100] 25 unit SQ HS 08/22/20 [History] Pregabalin [Lyrica] 75 mg PO BID 08/22/20 [History] carvediloL [Coreg] 6.25 mg PO BID-W/MEALS #60 tab 08/23/20 [Rx] Follow up Appointment(s)/Referral(s): Puma Lovell MD [Primary Care Provider] - 3 Days Patient Instructions/Handouts: Coronary Artery Disease (DC), Chest Pain (ED), How to Stop Smoking (DC), Medicinal Use of Cannabis (DC) Discharge Disposition: HOME SELF-CARE
== END 2020-08-23 10:25 | disposition home or self-care (01) ==
LOC: EC 16:31 → 6NMEDSUR 19:40
PROVIDERS: ADMIT Family Medicine; ATTEND Family Medicine
DX: R07.2 Precordial pain (principal); N17.9 Acute kidney failure, unspecified; I25.10 Atherosclerotic heart disease of native coronary artery without angina pectoris; I11.0 Hypertensive heart disease with heart failure; I50.22 Chronic systolic (congestive) heart failure; I48.0 Paroxysmal atrial fibrillation; E78.5 Hyperlipidemia, unspecified; E11.9 Type 2 diabetes mellitus without complications; K21.9 Gastro-esophageal reflux disease without esophagitis; I25.2 Old myocardial infarction; I70.8 Atherosclerosis of other arteries; I25.5 Ischemic cardiomyopathy; G89.29 Other chronic pain; M54.5 Low back pain; M79.604 Pain in right leg; M79.605 Pain in left leg; R79.89 Other specified abnormal findings of blood chemistry; E66.9 Obesity, unspecified; Z68.43 Body mass index [BMI] 50.0-59.9, adult; F12.90 Cannabis use, unspecified, uncomplicated; Z20.822 Contact with and (suspected) exposure to COVID-19; Z79.4 Long term (current) use of insulin; Z79.01 Long term (current) use of anticoagulants; Z79.82 Long term (current) use of aspirin; Z79.891 Long term (current) use of opiate analgesic; Z79.899 Other long term (current) drug therapy; Z95.1 Presence of aortocoronary bypass graft; Z87.440 Personal history of urinary (tract) infections; Z86.19 Personal history of other infectious and parasitic diseases; Z95.5 Presence of coronary angioplasty implant and graft; Z98.890 Other specified postprocedural states; Z87.891 Personal history of nicotine dependence; Z87.438 Personal history of other diseases of male genital organs; Z82.49 Family history of ischemic heart disease and other diseases of the circulatory system; Z83.3 Family history of diabetes mellitus
CPT/HCPCS: 96376; 96374; 93005 ×2; 96361; 99285; 36415; 80053; 80061; 82150; 83690; 83735; 84484 ×2; 85025; 85610; 85730; 87635; 71046; 71275; 74174; G0378 ×2; J2270; Q9967

== ENCOUNTER 2020-09-20 15:19 | Inpatient (IN) | payer BC, MEDICARE, OTHER ==
[2020-09-20 15:58] LABS: Glucose,Whole Blood 132 mg/dL (75-99)
--- NOTE | 2020-09-20 16:06 | ED ---
General Adult HPI - General Chief complaint: Nausea/Vomiting/Diarrhea Stated complaint: Chest pain/syncope Time Seen by Provider: 09/20/20 15:51 Source: patient, EMS Mode of arrival: EMS Limitations: no limitations - History of Present Illness Initial comments: This 65-year-old male with history of A. fib on [place], CAD, hypertension, hyperlipidemia, diabetes, tarry myopathy who presents emergency department for nausea and syncope. The patient reportedly started feeling nauseated earlier today. He has had 8 episodes of nonbloody emesis since this morning. He states he has not had any diarrhea or dark or bloody stools. No abdominal pain. No fevers or chills. No chest pain or shortness of breath. The patient states that he's been urinating normally. He states that yesterday he felt fine. Apparently today he was sitting and felt nauseated and he went to stand up and had a syncopal episode and was unresponsive. By the time EMS got there he was back to normal however quite lethargic so they brought him to the emergency department. The patient otherwise denies any other acute complaints at this time. Blood sugar was in the low 100s. - Related Data Home Medications Medication Instructions Recorded Confirmed DULoxetine HCL [Cymbalta] 60 mg PO BID 11/16/19 09/20/20 Semaglutide [Ozempic] 0.25 mg SQ WE 11/16/19 09/20/20 glipiZIDE [Glucotrol] 5 mg PO AC-BID 11/16/19 09/20/20 metFORMIN HCL 1,000 mg PO BID 11/16/19 09/20/20 Insulin Aspart [NovoLOG Flexpen] 10 units SQ AC-TID PRN 03/01/20 09/20/20 oxyCODONE ER [OxyCONTIN] 80 mg PO Q12H 03/01/20 09/20/20 oxyCODONE HCL [oxyCODONE HCL (IR)] 15 mg PO Q8H 03/01/20 09/20/20 Lisinopril-Hctz 20-12.5 mg 1 tab PO BID 06/16/20 09/20/20 [Zestoretic 20-12.5] rOPINIRole HCL [Requip] 1 mg PO BID 06/16/20 09/20/20 Insulin Glargine,Hum.rec.anlog 25 unit SQ HS 08/22/20 09/20/20 [Falguni Bryan U-100] Pregabalin [Lyrica] 75 mg PO BID 08/22/20 09/20/20 Previous Rx's Medication Instructions Recorded Atorvastatin [Lipitor] 40 mg PO DAILY #30 tab 10/24/19 Spironolactone [Aldactone] 25 mg PO DAILY #30 tab 10/24/19 Apixaban [Eliquis] 5 mg PO BID tab 11/18/19 Aspirin 81 mg PO DAILY #30 chew 04/10/20 carvediloL [Coreg] 6.25 mg PO BID-W/MEALS #60 tab 08/23/20 Allergies Allergy/AdvReac Type Severity Reaction Status Date / Time No Known Allergies Allergy Verified 09/20/20 16:34 Review of Systems ROS Statement: Those systems with pertinent positive or pertinent negative responses have been documented in the HPI. ROS Other: All systems not noted in ROS Statement are negative. Past Medical History Past Medical History: Atrial Fibrillation, Coronary Artery Disease (CAD), Chest Pain / Angina, Diabetes Mellitus, GERD/Reflux, Hyperlipidemia, Hypertension, Myocardial Infarction ([place]) Additional Past Medical History / Comment(s): Pt had CABG 07/2019 and had post op Afib/UTI with pseudomonas aeruginosa, ischemic cardiomyopathy, IDDM type II, past R scrotal abscess with sepsis, chronic lower back pain and bilateral leg pain, Last Myocardial Infarction Date:: 03/20/15 History of Any Multi-Drug Resistant Organisms: None Reported Past Surgical History: Back Surgery, Coronary Bypass/CABG, Heart Catheterization, Heart Catheterization With Stent, Orthopedic Surgery Additional Past Surgical History / Comment(s): 08/23/2019 CABG 3 vessels, PCI with total of 5 stents, L ankle ligament repair, R leg ORIF, low back surgery, colonoscopy. Past Anesthesia/Blood Transfusion Reactions: No Reported Reaction Additional Past Anesthesia/Blood Transfusion Reaction / Comment(s): Pt has received blood in past without reaction. Date of Last Stent Placement:: 02/2015 Past Psychological History: No Psychological Hx Reported Smoking Status: Former smoker Past Alcohol Use History: None Reported Past Drug Use History: Marijuana - Past Family History Sister(s) Family Medical History: Coronary Artery Disease (CAD), Hypertension Father Family Medical History: Coronary Artery Disease (CAD), Diabetes Mellitus, Deep Vein Thrombosis (DVT), Hypertension Additional Family Medical History / Comment(s): Father at age 58yrs. He of blood clot from leg injury that went to his heart. General Exam - General Exam Comments Initial Comments: Constitutional: Patient is somewhat somnolent however will awaken to voice and answer questions appropriately Appears comfortable Head: Normocephalic atraumatic Eyes: no conjunctival injection No scleral icterus EOMI no conjunctival pallor Neck: No JVD Supple Heart: Regular rate rhythm normal S1-S2 no murmurs Lungs: Clear to auscultation bilaterally No wheezing No rales Abdomen: Soft nondistended nontender Extremities: Non edematous DP pulses intact Radial pulses intact, Chevys or cold to the touch Neuro: A&Ox3 No focal neurologic deficits Psych: Appropriate mood and affect Limitations: no limitations Course Vital Signs 09/20/20 09/20/20 09/20/20 15:22 16:15 16:30 Temperature 96.2 F L Pulse Rate 86 74 74 Respiratory 14 16 16 Rate Blood Pressure 79/50 67/51 74/46 O2 Sat by Pulse 96 99 99 Oximetry 09/20/20 09/20/20 09/20/20 16:45 17:15 17:30 Temperature Pulse Rate 73 71 73 Respiratory 16 18 18 Rate Blood Pressure 74/53 75/54 86/55 O2 Sat by Pulse 99 99 99 Oximetry 09/20/20 09/20/20 09/20/20 17:45 18:00 18:15 Temperature Pulse Rate 69 Respiratory 18 18 18 Rate Blood Pressure 96/61 92/78 113/80 O2 Sat by Pulse 99 99 99 Oximetry 09/20/20 19:09 Temperature Pulse Rate 75 Respiratory 18 Rate Blood Pressure 102/74 O2 Sat by Pulse 99 Oximetry - Reevaluation(s) Reevaluation #1: Pt appears improved More awake. BP improved. Will hold on Levo at this time. MAP is 71 09/20/20 18:08 Reevaluation #2: 09/20/20 20:46 Family, Mariama, at bedside states she is spoke person for the patient. States he has had vomiting for 3 days and decreased PO intake. Pt appears much improved. Awake, alert, joking with me. BP has stabilized. No obvious source for sepsis. Repeat Lactic pending. Pt likely severely dehydrated. Page out to Dr. Lovell EKG Findings - EKG Comments: EKG Findings:: EKG showing normal sinus rhythm with a rate of 89. There are no abnormal ST segment changes. No T-wave inversions. QTC is 503. Other intervals are normal no ectopy. Medical Decision Making - Medical Decision Making Is a 65-year-old male presents emergency department for nausea vomiting and syncope. The patient was profoundly hypotensive when he got here and was quite somnolent and lethargic. He is given 2.5 L of normal saline with improvement in his blood pressure. Initial labs showed a severe acute kidney injury and lactic acidosis. Repeat lactic is pending at this time. Rest was blood work was unremarkable except for a leukocytosis. The patient initially was considered for sepsis and was started on broad spectrum antibiotics including vancomycin and Zosyn. Still awaiting a urinalysis from the patient. Chest x- ray was unremarkable. CT of his abdomen did not show any acute abnormalities. I suspect the patient may be severely dehydrated since the spokesperson for the patient stated that it's Exhibit 3 days is been nausea and vomiting and had dec reased oral intake. Going to continue him on fluids. I have nephrology consulted. The patient will be monitored closely in the hospital. I spoke with Dr. Melchor who requested a procalcitonin. Patient is currently stable. - Lab Data Result diagrams: 09/20/20 16:07 09/20/20 16:07 Lab Results 09/20/20 09/20/20 09/20/20 Range/Units 15:56 16:07 16:07 WBC 20.0 H (3.8-10.6) k/uL RBC 5.48 (4.30-5.90) m/uL Hgb 17.1 D (13.0-17.5) gm/dL Hct 52.1 (39.0-53.0) % MCV 95.2 (80.0-100.0) fL MCH 31.2 (25.0-35.0) pg MCHC 32.8 (31.0-37.0) g/dL RDW 13.7 (11.5-15.5) % Plt Count 440 (150-450) k/uL MPV 7.9 Neutrophils % 85 % Lymphocytes % 8 % Monocytes % 6 % Eosinophils % 1 % Basophils % 0 % Neutrophils # 17.0 H (1.3-7.7) k/uL Lymphocytes # 1.6 (1.0-4.8) k/uL Monocytes # 1.3 H (0-1.0) k/uL Eosinophils # 0.1 (0-0.7) k/uL Basophils # 0.1 (0-0.2) k/uL PT 10.9 (9.0-12.0) sec INR 1.0 (<1.2) APTT 25.6 (22.0-30.0) sec Sodium (137-145) mmol/L Potassium (3.5-5.1) mmol/L Chloride (98-107) mmol/L Carbon Dioxide (22-30) mmol/L Anion Gap mmol/L BUN (9-20) mg/dL Creatinine (0.66-1.25) mg/dL Est GFR (CKD-EPI)AfAm (>60 ml/min/1.73 sqM) Est GFR (CKD-EPI)NonAf (>60 ml/min/1.73 sqM) Glucose (74-99) mg/dL POC Glucose (mg/dL) 132 H (75-99) mg/dL POC Glu Forestry Scientist ID Pablo Victor Lactic Ac Sepsis Rflx Plasma Lactic Acid Chinedu (0.7-2.0) mmol/L Calcium (8.4-10.2) mg/dL Magnesium (1.6-2.3) mg/dL Total Bilirubin (0.2-1.3) mg/dL AST (17-59) U/L ALT (4-49) U/L Alkaline Phosphatase (38-126) U/L NT-Pro-B Natriuret Pep pg/mL Total Protein (6.3-8.2) g/dL Albumin (3.5-5.0) g/dL Lipase (23-300) U/L 09/20/20 09/20/20 09/20/20 Range/Units 16:07 16:07 16:07 WBC (3.8-10.6) k/uL RBC (4.30-5.90) m/uL Hgb (13.0-17.5) gm/dL Hct (39.0-53.0) % MCV (80.0-100.0) fL MCH (25.0-35.0) pg MCHC (31.0-37.0) g/dL RDW (11.5-15.5) % Plt Count (150-450) k/uL MPV Neutrophils % % Lymphocytes % % Monocytes % % Eosinophils % % Basophils % % Neutrophils # (1.3-7.7) k/uL Lymphocytes # (1.0-4.8) k/uL Monocytes # (0-1.0) k/uL Eosinophils # (0-0.7) k/uL Basophils # (0-0.2) k/uL PT (9.0-12.0) sec INR (<1.2) APTT (22.0-30.0) sec Sodium 133 L (137-145) mmol/L Potassium 3.6 (3.5-5.1) mmol/L Chloride 96 L (98-107) mmol/L Carbon Dioxide 17 L (22-30) mmol/L Anion Gap 20 mmol/L BUN 68 H (9-20) mg/dL Creatinine 5.34 H (0.66-1.25) mg/dL Est GFR (CKD-EPI)AfAm 12 (>60 ml/min/1.73 sqM) Est GFR (CKD-EPI)NonAf 11 (>60 ml/min/1.73 sqM) Glucose 142 H (74-99) mg/dL POC Glucose (mg/dL) (75-99) mg/dL POC Glu Forestry Scientist ID Lactic Ac Sepsis Rflx Plasma Lactic Acid Chinedu 6.5 H* (0.7-2.0) mmol/L Calcium 8.6 (8.4-10.2) mg/dL Magnesium 1.9 (1.6-2.3) mg/dL Total Bilirubin 0.4 (0.2-1.3) mg/dL AST 30 (17-59) U/L ALT 14 (4-49) U/L Alkaline Phosphatase 102 (38-126) U/L NT-Pro-B Natriuret Pep 02266 pg/mL Total Protein 5.9 L (6.3-8.2) g/dL Albumin 3.5 (3.5-5.0) g/dL Lipase 103 (23-300) U/L 09/20/20 Range/Units 16:37 WBC (3.8-10.6) k/uL RBC (4.30-5.90) m/uL Hgb (13.0-17.5) gm/dL Hct (39.0-53.0) % MCV (80.0-100.0) fL MCH (25.0-35.0) pg MCHC (31.0-37.0) g/dL RDW (11.5-15.5) % Plt Count (150-450) k/uL MPV Neutrophils % % Lymphocytes % % Monocytes % % Eosinophils % % Basophils % % Neutrophils # (1.3-7.7) k/uL Lymphocytes # (1.0-4.8) k/uL Monocytes # (0-1.0) k/uL Eosinophils # (0-0.7) k/uL Basophils # (0-0.2) k/uL PT (9.0-12.0) sec INR (<1.2) APTT (22.0-30.0) sec Sodium (137-145) mmol/L Potassium (3.5-5.1) mmol/L Chloride (98-107) mmol/L Carbon Dioxide (22-30) mmol/L Anion Gap mmol/L BUN (9-20) mg/dL Creatinine (0.66-1.25) mg/dL Est GFR (CKD-EPI)AfAm (>60 ml/min/1.73 sqM) Est GFR (CKD-EPI)NonAf (>60 ml/min/1.73 sqM) Glucose (74-99) mg/dL POC Glucose (mg/dL) (75-99) mg/dL POC Glu Forestry Scientist ID Lactic Ac Sepsis Rflx Y Plasma Lactic Acid Chinedu (0.7-2.0) mmol/L Calcium (8.4-10.2) mg/dL Magnesium (1.6-2.3) mg/dL Total Bilirubin (0.2-1.3) mg/dL AST (17-59) U/L ALT (4-49) U/L Alkaline Phosphatase (38-126) U/L NT-Pro-B Natriuret Pep pg/mL Total Protein (6.3-8.2) g/dL Albumin (3.5-5.0) g/dL Lipase (23-300) U/L Critical Care Time Critical Care Time: Yes Total Critical Care Time: 60 Critical Care Time: Total care time was spent the history from EMS and the patient and family members, examining the patient, ordering labs and imaging, ordering intervention including multiple fluid boluses and reevaluating the patient after the fluid boluses. Interpreting lab work and imaging studies, speaking to the admitting provider. Disposition Clinical Impression: MATHEUS (acute kidney injury), Severe dehydration, Leukocytosis, SIRS (systemic inflammatory response syndrome) Disposition: ADMITTED IP TO THIS [facility] Condition: Serious Referrals: Puma Lovell MD [Primary Care Provider] - 1-2 days
[2020-09-20] MEDS ORDERED: TRIMETHOBENZAMIDE 100 MG/ML 2 ML VIAL IM STA (16:07)
[2020-09-20] MEDS ORDERED: ONDANSETRON 4 MG/2 ML VIAL IVP STA (16:09)
[2020-09-20] MEDS: SODIUM CHLORIDE 0.9% 1,000 ML IV SCH (16:10)
[2020-09-20] MEDS: SODIUM CHLORIDE 0.9% 500 ML 500 ML IV SCH ×2 (16:10→16:44)
[2020-09-20 16:33] LABS: Albumin 3.5 g/dL (3.5-5.0); Calcium 8.6 mg/dL (8.4-10.2); Magnesium 1.9 mg/dL (1.6-2.3); Partial Thromboplastin Time 25.6 sec (22.0-30.0); Potassium 3.6 mmol/L (3.5-5.1); Prothrombin Time 10.9 sec (9.0-12.0); Total Bilirubin 0.4 mg/dL (0.2-1.3); Total Protein 5.9 g/dL (6.3-8.2)
[2020-09-20 16:41] LABS: Basophils # (A) 0.1 k/uL (0-0.2); Basophils % (A) 0 %; Eosinophils # (A) 0.1 k/uL (0-0.7); Eosinophils % (A) 1 %; HCT 52.1 % (39.0-53.0); Lymphocytes # (A) 1.6 k/uL (1.0-4.8); Lymphocytes % (A) 8 %; MCH 31.2 pg (25.0-35.0); MCHC 32.8 g/dL (31.0-37.0); MCV 95.2 fL (80.0-100.0); Mean Platelet Volume 7.9; Monocytes # (A) 1.3 k/uL (0-1.0); Monocytes % (A) 6 %; Neutrophils % (A) 85 %; Platelet Count 440 k/uL (150-450); RBC 5.48 m/uL (4.30-5.90); RDW 13.7 % (11.5-15.5)
[2020-09-20 16:42] LABS: HGB 17.1 gm/dL (13.0-17.5)
--- NOTE | 2020-09-20 16:44 | XR ---
EXAMINATION TYPE: XR chest 1V portable DATE OF EXAM: 09/20/2020 COMPARISON: Chest x-ray 08/22/2020 HISTORY: Hypotension and weakness TECHNIQUE: Single frontal view of the chest is obtained. FINDINGS: There is no focal air space opacity, pleural effusion, or pneumothorax seen. The cardiac silhouette size is within normal limits. Patient is post median sternotomy. There are overlying leads . The osseous structures are intact. IMPRESSION: No acute process.
[2020-09-20] MEDS ORDERED: SODIUM CHLORIDE 0.9% 1,000 ML IV ONE ×2 (16:51→22:02)
[2020-09-20] MEDS ORDERED: SODIUM CHLORIDE 0.9% 500 ML 500 ML IV ONE (16:51)
[2020-09-20] MEDS ORDERED: NOREPINEPHRINE 4 MG in SODIUM CHLORIDE 0.9% 250 ML IV ONE ×2 (17:17→23:30)
[2020-09-20] MEDS ORDERED: PIPERACILLIN-TAZOBACTAM 3.375 GM in SODIUM CHLORIDE 0.9% 100 ML IVPB STA (17:17)
[2020-09-20] MEDS ORDERED: VANCOMYCIN IV PER PHARMACY 1 EACH MISC MISCELLANE PRN (17:17)
[2020-09-20] MEDS ORDERED: VANCOMYCIN 1,500 MG in SODIUM CHLORIDE 0.9% 250 ML IVPB ONE (17:45)
--- NOTE | 2020-09-20 20:25 | CT ---
EXAMINATION TYPE: CT abdomen pelvis wo con DATE OF EXAM: 09/20/2020 COMPARISON: 08/22/2020 HISTORY: SEPSIS, FROM UNCLEAR SOURCE CT DLP: 624.3 mGycm Automated exposure control for dose reduction was used. TECHNIQUE: Helical acquisition of images was performed from the lung bases through the pelvis. FINDINGS: Within the limitations of noncontrast CT the following observations are made. LUNG BASES: No acute findings. Coronary calcifications noted. LIVER/GB: No significant abnormality is appreciated. PANCREAS: No significant abnormality is seen. SPLEEN: No significant abnormality is seen. ADRENALS: No significant abnormality is seen. KIDNEYS: No significant abnormality is seen. PERITONEAL CAVITY: No free air is visualized; there is no peritoneal fluid. RETROPERITONEAL ADENOPATHY: None visualized REPRODUCTIVE ORGANS: No significant abnormality is seen URINARY BLADDER: No significant abnormality is seen. PELVIC ADENOPATHY: None visualized. OSSEOUS STRUCTURES: No significant abnormality is seen. BOWEL: No significant abnormality is seen. IMPRESSION: NO DEFINITE ACUTE PROCESS; NO CT CORRELATE FOR SEPSIS, UNCLEAR SOURCE.
[2020-09-20] MEDS ORDERED: NALOXONE 0.4 MG/ML 1 ML VIAL IV PRN (20:51)
[2020-09-20] MEDS ORDERED: ONDANSETRON 4 MG/2 ML VIAL IVP PRN (20:51)
[2020-09-20] MEDS ORDERED: ASPIRIN 81 MG PO STA (22:08)
--- NOTE | 2020-09-20 22:52 | ED ---
Medical Decision Making - Medical Decision Making Just prior to admission the patient's blood pressure went back down. Central line was then placed. We will fed will be started. I spoke with Dr. Leyva and the patient will be placed in the ICU for close monitoring for undifferentiated shock likely septic. - Lab Data Result diagrams: 09/20/20 16:07 09/20/20 16:07 Lab Results 09/20/20 09/20/20 09/20/20 Range/Units 15:56 16:07 16:07 WBC 20.0 H (3.8-10.6) k/uL RBC 5.48 (4.30-5.90) m/uL Hgb 17.1 D (13.0-17.5) gm/dL Hct 52.1 (39.0-53.0) % MCV 95.2 (80.0-100.0) fL MCH 31.2 (25.0-35.0) pg MCHC 32.8 (31.0-37.0) g/dL RDW 13.7 (11.5-15.5) % Plt Count 440 (150-450) k/uL MPV 7.9 Neutrophils % 85 % Lymphocytes % 8 % Monocytes % 6 % Eosinophils % 1 % Basophils % 0 % Neutrophils # 17.0 H (1.3-7.7) k/uL Lymphocytes # 1.6 (1.0-4.8) k/uL Monocytes # 1.3 H (0-1.0) k/uL Eosinophils # 0.1 (0-0.7) k/uL Basophils # 0.1 (0-0.2) k/uL PT 10.9 (9.0-12.0) sec INR 1.0 (<1.2) APTT 25.6 (22.0-30.0) sec Sodium (137-145) mmol/L Potassium (3.5-5.1) mmol/L Chloride (98-107) mmol/L Carbon Dioxide (22-30) mmol/L Anion Gap mmol/L BUN (9-20) mg/dL Creatinine (0.66-1.25) mg/dL Est GFR (CKD-EPI)AfAm (>60 ml/min/1.73 sqM) Est GFR (CKD-EPI)NonAf (>60 ml/min/1.73 sqM) Glucose (74-99) mg/dL POC Glucose (mg/dL) 132 H (75-99) mg/dL POC Glu Bookkeeping Clerk ID Pablo Victor Lactic Ac Sepsis Rflx Plasma Lactic Acid Chinedu (0.7-2.0) mmol/L Calcium (8.4-10.2) mg/dL Magnesium (1.6-2.3) mg/dL Total Bilirubin (0.2-1.3) mg/dL AST (17-59) U/L ALT (4-49) U/L Alkaline Phosphatase (38-126) U/L Troponin I (0.000-0.034) ng/mL NT-Pro-B Natriuret Pep pg/mL Total Protein (6.3-8.2) g/dL Albumin (3.5-5.0) g/dL Lipase (23-300) U/L Coronavirus (PCR) (Not Detectd) 09/20/20 09/20/20 09/20/20 Range/Units 16:07 16:07 16:07 WBC (3.8-10.6) k/uL RBC (4.30-5.90) m/uL Hgb (13.0-17.5) gm/dL Hct (39.0-53.0) % MCV (80.0-100.0) fL MCH (25.0-35.0) pg MCHC (31.0-37.0) g/dL RDW (11.5-15.5) % Plt Count (150-450) k/uL MPV Neutrophils % % Lymphocytes % % Monocytes % % Eosinophils % % Basophils % % Neutrophils # (1.3-7.7) k/uL Lymphocytes # (1.0-4.8) k/uL Monocytes # (0-1.0) k/uL Eosinophils # (0-0.7) k/uL Basophils # (0-0.2) k/uL PT (9.0-12.0) sec INR (<1.2) APTT (22.0-30.0) sec Sodium 133 L (137-145) mmol/L Potassium 3.6 (3.5-5.1) mmol/L Chloride 96 L (98-107) mmol/L Carbon Dioxide 17 L (22-30) mmol/L Anion Gap 20 mmol/L BUN 68 H (9-20) mg/dL Creatinine 5.34 H (0.66-1.25) mg/dL Est GFR (CKD-EPI)AfAm 12 (>60 ml/min/1.73 sqM) Est GFR (CKD-EPI)NonAf 11 (>60 ml/min/1.73 sqM) Glucose 142 H (74-99) mg/dL POC Glucose (mg/dL) (75-99) mg/dL POC Glu Bookkeeping Clerk ID Lactic Ac Sepsis Rflx Plasma Lactic Acid Chinedu 6.5 H* (0.7-2.0) mmol/L Calcium 8.6 (8.4-10.2) mg/dL Magnesium 1.9 (1.6-2.3) mg/dL Total Bilirubin 0.4 (0.2-1.3) mg/dL AST 30 (17-59) U/L ALT 14 (4-49) U/L Alkaline Phosphatase 102 (38-126) U/L Troponin I (0.000-0.034) ng/mL NT-Pro-B Natriuret Pep 90799 pg/mL Total Protein 5.9 L (6.3-8.2) g/dL Albumin 3.5 (3.5-5.0) g/dL Lipase 103 (23-300) U/L Coronavirus (PCR) (Not Detectd) 09/20/20 09/20/20 09/20/20 Range/Units 16:22 16:37 19:40 WBC (3.8-10.6) k/uL RBC (4.30-5.90) m/uL Hgb (13.0-17.5) gm/dL Hct (39.0-53.0) % MCV (80.0-100.0) fL MCH (25.0-35.0) pg MCHC (31.0-37.0) g/dL RDW (11.5-15.5) % Plt Count (150-450) k/uL MPV Neutrophils % % Lymphocytes % % Monocytes % % Eosinophils % % Basophils % % Neutrophils # (1.3-7.7) k/uL Lymphocytes # (1.0-4.8) k/uL Monocytes # (0-1.0) k/uL Eosinophils # (0-0.7) k/uL Basophils # (0-0.2) k/uL PT (9.0-12.0) sec INR (<1.2) APTT (22.0-30.0) sec Sodium (137-145) mmol/L Potassium (3.5-5.1) mmol/L Chloride (98-107) mmol/L Carbon Dioxide (22-30) mmol/L Anion Gap mmol/L BUN (9-20) mg/dL Creatinine (0.66-1.25) mg/dL Est GFR (CKD-EPI)AfAm (>60 ml/min/1.73 sqM) Est GFR (CKD-EPI)NonAf (>60 ml/min/1.73 sqM) Glucose (74-99) mg/dL POC Glucose (mg/dL) (75-99) mg/dL POC Glu Bookkeeping Clerk ID Lactic Ac Sepsis Rflx Y Plasma Lactic Acid Chinedu 3.8 H* (0.7-2.0) mmol/L Calcium (8.4-10.2) mg/dL Magnesium (1.6-2.3) mg/dL Total Bilirubin (0.2-1.3) mg/dL AST (17-59) U/L ALT (4-49) U/L Alkaline Phosphatase (38-126) U/L Troponin I 0.290 H* (0.000-0.034) ng/mL NT-Pro-B Natriuret Pep pg/mL Total Protein (6.3-8.2) g/dL Albumin (3.5-5.0) g/dL Lipase (23-300) U/L Coronavirus (PCR) (Not Detectd) 09/20/20 Range/Units 22:03 WBC (3.8-10.6) k/uL RBC (4.30-5.90) m/uL Hgb (13.0-17.5) gm/dL Hct (39.0-53.0) % MCV (80.0-100.0) fL MCH (25.0-35.0) pg MCHC (31.0-37.0) g/dL RDW (11.5-15.5) % Plt Count (150-450) k/uL MPV Neutrophils % % Lymphocytes % % Monocytes % % Eosinophils % % Basophils % % Neutrophils # (1.3-7.7) k/uL Lymphocytes # (1.0-4.8) k/uL Monocytes # (0-1.0) k/uL Eosinophils # (0-0.7) k/uL Basophils # (0-0.2) k/uL PT (9.0-12.0) sec INR (<1.2) APTT (22.0-30.0) sec Sodium (137-145) mmol/L Potassium (3.5-5.1) mmol/L Chloride (98-107) mmol/L Carbon Dioxide (22-30) mmol/L Anion Gap mmol/L BUN (9-20) mg/dL Creatinine (0.66-1.25) mg/dL Est GFR (CKD-EPI)AfAm (>60 ml/min/1.73 sqM) Est GFR (CKD-EPI)NonAf (>60 ml/min/1.73 sqM) Glucose (74-99) mg/dL POC Glucose (mg/dL) (75-99) mg/dL POC Glu Bookkeeping Clerk ID Lactic Ac Sepsis Rflx Plasma Lactic Acid Chinedu (0.7-2.0) mmol/L Calcium (8.4-10.2) mg/dL Magnesium (1.6-2.3) mg/dL Total Bilirubin (0.2-1.3) mg/dL AST (17-59) U/L ALT (4-49) U/L Alkaline Phosphatase (38-126) U/L Troponin I (0.000-0.034) ng/mL NT-Pro-B Natriuret Pep pg/mL Total Protein (6.3-8.2) g/dL Albumin (3.5-5.0) g/dL Lipase (23-300) U/L Coronavirus (PCR) Not Detected (Not Detectd) Disposition Clinical Impression: MATHEUS (acute kidney injury), Severe dehydration, Leukocytosis, SIRS (systemic inflammatory response syndrome) Disposition: ADMITTED IP TO THIS HOSP Condition: Serious Referrals: Puma Lovell MD [Primary Care Provider] - 1-2 days Procedures - Central Line Placement Right IJ Consent Obtained: written consent Patient Placed on Monitor/Pulse Ox: Yes Prep: mask, gown, gloves Central Line Prep: Chlorhexidine scrub Local Anesthesia Used: Lidocaine 1% Amount of Anesthesia Used (mls): 2 Ultrasound Used for Placement: Yes Central Line Lumen Inserted: triple Bloods Obtained for Lab: No Central Line Position: good blood return, all ports aspirated, flushed, capped, sutured in place with 3-0 nylon Dressing Applied: Tegaderm Post Procedure X-Ray: tip of catheter in good position Patient Tolerated Procedure: well Complications: none
--- NOTE | 2020-09-20 23:10 | XR ---
EXAMINATION TYPE: XR chest 1V portable DATE OF EXAM: 09/20/2020 COMPARISON: Today HISTORY: Central line placement TECHNIQUE: Single view FINDINGS: There is right jugular catheter with tip in the superior vena cava. There are sternal wires . Lungs are clear of infiltrate. There is no heart failure. There are chest leads. Costophrenic angle s are clear. There is no pneumothorax. IMPRESSION: No active cardiopulmonary disease. No change.
[2020-09-21 00:07] LABS: Amorphous Sediment,Urine Occasional /hpf; Appearance,Urine Clear (Clear); Bacteria,Urine Rare /hpf; Bilirubin,Urine Negative (Negative); Blood,Urine Trace (Negative); Color,Urine Light Yellow; Glucose,Urine (UA) Trace (Negative); Ketones,Urine Negative (Negative); Leukocyte Esterase,Urine Negative (Negative); Nitrite,Urine Negative (Negative); Protein,Urine 1+ (Negative); RBC,Urine 1 /hpf (0-5); Specific Gravity,Urine 1.009 (1.001-1.035); Urobilinogen,Urine <2.0 mg/dL (<2.0); WBC,Urine 1 /hpf (0-5)
[2020-09-21 01:07] LABS: Glucose,Whole Blood 155 mg/dL (75-99)
[2020-09-21] MEDS: SODIUM CHLORIDE 0.9% 1,000 ML IV SCH ×2 (02:10→04:13)
[2020-09-21 03:27] LABS: Albumin 3.5 g/dL (3.5-5.0); Calcium 7.8 mg/dL (8.4-10.2); Potassium 4.3 mmol/L (3.5-5.1); Total Bilirubin 0.4 mg/dL (0.2-1.3); Total Protein 5.8 g/dL (6.3-8.2)
[2020-09-21 03:30] LABS: Basophils % (A) 0 %; Eosinophils % (A) 0 %; HCT 47.7 % (39.0-53.0); HGB 14.8 gm/dL (13.0-17.5); Lymphocytes # (A) 0.8 k/uL (1.0-4.8); Lymphocytes % (A) 3 %; MCV 96.7 fL (80.0-100.0); Monocytes # (A) 1.5 k/uL (0-1.0); Monocytes % (A) 6 %; Neutrophils # (A) 25.1 k/uL (1.3-7.7); Neutrophils % (A) 91 %; Platelet Count 379 k/uL (150-450); RBC 4.93 m/uL (4.30-5.90); RDW 14.1 % (11.5-15.5); WBC 27.6 k/uL (3.8-10.6)
[2020-09-21 04:09] LABS: Anisocytosis (M) Present
[2020-09-21 04:11] LABS: Poikilocytosis (M) Present
[2020-09-21] MEDS ORDERED: SODIUM CHLORIDE 0.9% 1,000 ML IV ONE ×2 (05:18→08:14)
[2020-09-21 07:03] LABS: Glucose,Whole Blood 155 mg/dL (75-99)
[2020-09-21] MEDS ORDERED: SODIUM BICARB 8.4% 50 ML SYR (1 MEQ/ML) IV STA (08:13)
[2020-09-21] MEDS ORDERED: ENOXAPARIN 30 MG/0.3 ML SYRINGE SQ SCH (09:00)
--- NOTE | 2020-09-21 09:17 | P.NPCON ---
History of Present Illness - Reason for Consult acute renal failure - History of Present Illness Reason for consultation: Acute kidney injury History of present illness: Patient is a 65-year-old male seen in renal consultation for acute kidney injury. Patient baseline creatinine is near 1 from May 2020. It was elevated at 5.34 on admission and is down to 5.14 today. Patient presented to the hospital with nausea and vomiting going on for the last 2 days. He is currently on Levophed. He did receive 3 L of normal saline on admission. He was on lisinopril and hydrochlorothiazide which is now held. He's receiving maintenance fluids with normal saline. Chest x-ray showed no acute process. He denies use of nonsteroidals. He does have a long-standing history of diabetes. Denies family history of renal disease. He is also noted to be quite acidotic with a bicarb level of 9 today. He was on metformin outpatient. Denies any significant diarrhea. No abdominal pain. No chest pain or shortness of breath. No hematuria or dysuria. Vital signs are stable. On vasopressor support. General: Patient appeared well nourished and normally developed. HEENT: Head exam is unremarkable. Neck is without jugular venous distension. LUNGS: Breath sounds decreased. HEART: Rate and Rhythm are regular. ABDOMEN: Soft,no distension. EXTREMITITES: No edema. Past Medical History Past Medical History: Atrial Fibrillation, Coronary Artery Disease (CAD), Chest Pain / Angina, Diabetes Mellitus, GERD/Reflux, Hyperlipidemia, Hypertension, Myocardial Infarction ([place]) Additional Past Medical History / Comment(s): Pt had CABG 07/2019 and had post op Afib/UTI with pseudomonas aeruginosa, ischemic cardiomyopathy, IDDM type II, past R scrotal abscess with sepsis, chronic lower back pain and bilateral leg pain, Last Myocardial Infarction Date:: 03/20/15 History of Any Multi-Drug Resistant Organisms: None Reported Past Surgical History: Back Surgery, Coronary Bypass/CABG, Heart Catheterization, Heart Catheterization With Stent, Orthopedic Surgery Additional Past Surgical History / Comment(s): 08/23/2019 CABG 3 vessels, PCI with total of 5 stents, L ankle ligament repair, R leg ORIF, low back surgery, colonoscopy. Past Anesthesia/Blood Transfusion Reactions: No Reported Reaction Additional Past Anesthesia/Blood Transfusion Reaction / Comment(s): Pt has received blood in past without reaction. Date of Last Stent Placement:: 02/2015 Past Psychological History: No Psychological Hx Reported Additional Psychological History / Comment(s): Pt resides with his sister. He has a cane to ambulate and a glucometer. He has home care thru [facility]. He cannot currently drive d/t recent CABG, his evangelina takes him to appts. Smoking Status: Former smoker Past Alcohol Use History: None Reported Additional Past Alcohol Use History / Comment(s): Pt started smoking in 1968 and quit in 2014. He was a 2 ppd smoker. Pt states he was a heavy drinker but quit in 2001. Past Drug Use History: Marijuana Additional Drug Use History / Comment(s): Occasional marijuana.-INSTRUCTED TO REFRAIN FROM USE FOR AT LEAST 24 HOURS PRIOR TO PROCEDURE - Past Family History Sister(s) Family Medical History: Coronary Artery Disease (CAD), Hypertension Father Family Medical History: Coronary Artery Disease (CAD), Diabetes Mellitus, Deep Vein Thrombosis (DVT), Hypertension Additional Family Medical History / Comment(s): Father at age 58yrs. He of blood clot from leg injury that went to his heart. Medications and Allergies Home Medications Medication Instructions Recorded Confirmed Type Atorvastatin [Lipitor] 40 mg PO DAILY #30 tab 10/24/19 09/20/20 Rx Spironolactone [Aldactone] 25 mg PO DAILY #30 tab 10/24/19 09/20/20 Rx DULoxetine HCL [Cymbalta] 60 mg PO BID 11/16/19 09/20/20 History Semaglutide [Ozempic] 0.25 mg SQ WE 11/16/19 09/20/20 History glipiZIDE [Glucotrol] 5 mg PO AC-BID 11/16/19 09/20/20 History metFORMIN HCL 1,000 mg PO BID 11/16/19 09/20/20 History Apixaban [Eliquis] 5 mg PO BID tab 11/18/19 09/20/20 Rx Insulin Aspart [NovoLOG Flexpen] 10 units SQ AC-TID PRN 03/01/20 09/20/20 History oxyCODONE ER [OxyCONTIN] 80 mg PO Q12H 03/01/20 09/20/20 History oxyCODONE HCL [oxyCODONE HCL (IR)] 15 mg PO Q8H 03/01/20 09/20/20 History Aspirin 81 mg PO DAILY #30 chew 04/10/20 09/20/20 Rx Lisinopril-Hctz 20-12.5 mg 1 tab PO BID 06/16/20 09/20/20 History [Zestoretic 20-12.5] rOPINIRole HCL [Requip] 1 mg PO BID 06/16/20 09/20/20 History Insulin Glargine,Hum.rec.anlog 25 unit SQ HS 08/22/20 09/20/20 History [Basaglar Kwikpen U-100] Pregabalin [Lyrica] 75 mg PO BID 08/22/20 09/20/20 History carvediloL [Coreg] 6.25 mg PO BID-W/MEALS #60 tab 08/23/20 09/20/20 Rx Allergies Allergy/AdvReac Type Severity Reaction Status Date / Time No Known Allergies Allergy Verified 09/20/20 16:34 Physical Exam Vitals: Vital Signs Temp Pulse Resp BP Pulse Ox 09/21/20 07:00 92 16 118/72 98 09/21/20 06:45 78 14 117/63 98 09/21/20 06:30 83 14 104/56 98 09/21/20 06:15 78 12 97/50 97 09/21/20 06:00 75 12 96/51 99 09/21/20 05:45 74 14 100/55 99 09/21/20 05:30 73 12 93/48 98 09/21/20 05:15 72 16 91/49 98 09/21/20 05:00 72 10 L 97/55 98 09/21/20 04:45 73 12 86/43 100 09/21/20 04:30 71 16 89/48 100 09/21/20 04:15 75 9 L 87/50 97 09/21/20 04:00 97.7 F 74 10 L 80/45 95 09/21/20 03:45 125/63 09/21/20 03:30 77 12 103/53 94 L 09/21/20 03:15 77 12 95/51 96 09/21/20 03:00 85 12 125/63 96 09/21/20 02:45 82 12 118/64 96 09/21/20 02:30 84 12 130/72 95 09/21/20 02:15 125/63 09/21/20 02:00 84 12 127/64 96 09/21/20 01:45 85 12 124/61 97 09/21/20 01:30 84 8 L 118/59 97 09/21/20 01:15 84 7 L 111/69 97 09/21/20 00:31 81 16 125/63 99 09/21/20 00:00 80 16 110/80 99 09/20/20 23:54 97.7 F 97 H 09/20/20 23:16 85 16 90/58 96 09/20/20 21:09 71 16 84/57 99 09/20/20 19:09 75 18 102/74 99 09/20/20 18:15 18 113/80 99 09/20/20 18:00 18 92/78 99 09/20/20 17:45 69 18 96/61 99 09/20/20 17:30 73 18 86/55 99 09/20/20 17:15 71 18 75/54 99 09/20/20 16:45 73 16 74/53 99 09/20/20 16:30 74 16 74/46 99 09/20/20 16:15 74 16 67/51 99 09/20/20 15:22 96.2 F L 86 14 79/50 96 Intake and Output 09/20/20 09/21/20 09/21/20 22:59 06:59 14:59 Intake Total 031.365 3609.505 Output Total 220 30 Balance 803.506 6330.505 Intake: Intake, IV Titration 924.292 6093.505 Amount Norepinephrine 4 mg In 137.512 3.505 Sodium Chloride 0.9% 250 ml @ 0.05 MCG/KG/MIN 14. 603 mls/hr IV .[id number] ONE Rx#:[id number] Sodium Chloride 0.9% 1, 780 130 000 ml @ 130 mls/hr IV . Q7H42M [facility] Rx#:[id number] Sodium Chloride 0.9% 1, 1000 000 ml @ 999 mls/hr IV . Q1H1M [facility] Rx#:[id number] Output: Urine 220 30 Other: Voiding Method Indwelling Catheter Weight 76.657 kg 78.1 kg Results - Lab Results Most recent lab results Calcium 7.8 mg/dL (8.4-10.2) L 09/21/20 02:40 Magnesium 1.9 mg/dL (1.6-2.3) 09/20/20 16:07 09/21/20 02:40 09/21/20 02:40 Assessment and Plan Plan: Assessment: 1. Acute kidney injury secondary to ATN secondary to hypotension and hypovolem ia from vomiting and diuretics. Baseline creatinine near 1 and elevated at 5.34 on admission. It is 5.14 this morning. No hydronephrosis noted on CAT scan. 2. Metabolic acidosis secondary to acute kidney injury and lactic acidosis. He was also on metformin outpatient. 3. Diabetes mellitus. 4. Septic shock. Unclear source. On antibiotics. No evidence of UTI. No acute changes noted on CAT scan of the abdomen and pelvis. Plan: Stop normal saline and start bicarb drip to be run at 100 mL an hour. 1 L normal saline bolus now. Wean Levophed. Follow-up cultures. Avoid nephrotoxins. Continue to monitor renal function and urine output. Continue to assess daily for need for renal replacement therapy. Thank you for the consultation. I will continue to follow the patient with you during his hospital stay.
[2020-09-21] MEDS: DEXTROSE 5% IN WATER 1,000 ML with SODIUM BICARB (1 MEQ/ML) 150 ML IV SCH ×2 (10:32→21:06)
[2020-09-21] MEDS: PIPERACILLIN-TAZOBACTAM 3.375 GM in SODIUM CHLORIDE 0.9% 100 ML IVPB SCH ×2 (10:32→20:58)
[2020-09-21 10:57] VITALS: BMI 26.9
[2020-09-21 11:39] LABS: Glucose,Whole Blood 228 mg/dL (75-99)
--- NOTE | 2020-09-21 11:44 | P.CNPUL ---
History of Present Illness Consult date: 09/21/20 Requesting physician: Puma Lovell Reason for consult: other (Severe hypotension, possible sepsis/septic shock or hypovolemic shock.) Chief complaint: Nausea and vomiting. History of present illness: This is a 65-year-old white male with history of multiple medical problems including coronary artery disease and previous CABG. History of ischemic cardiomyopathy. Patient had CABG back in July 2019. History of chronic atrial fibrillation. History of multiple stents placed previously before his CABG. Patient presented to the ER yesterday with 2 days history of nausea and vomiting. But he had no shortness of breath, no cough, no fever, no chills, no hemoptysis, no chest pain, patient had no nausea no vomiting no abdominal pain, and he had no symptoms of urinary tract infection. No dysuria and no frequency no urgency. Upon presentation to the ER, patient was noted to be hypotensive he was also noted to have leukocytosis with WBC count as high as 20.0. Patient was also noted to have severe anion gap metabolic acidosis with anion gap of 20. Acute kidney injury with a BUN of 68 creatinine of 5.34. Although his creatinine back in July of 2020 was just over 1. Lactic acid was as high as 6.5. Troponin was significantly elevated at 14.3. And bicarb was only 17. Later went down to 9. Patient required fluid boluses at least 3 L of fluids were given in the ER, and another liter was given upon arrival to the ICU. Patient required a central line placement in the ER, and started on norepinephrine. I saw the patient in the ICU, he is on 2 L nasal cannula. He is on IV fluid in the form of 0.9 normal saline at 130 per hour. Norepinephrine at 0.04 mcg/kg/m. Patient is relatively asymptomatic, feels significantly better compared to how he felt upon his initial presentation, and he does not seem to be in any distress. Again no active symptoms to suggest ongoing infection however his presentation was mostly a presentation of sepsis and hypovolemia although the possibility of cardiogenic shock is not entirely ruled out but felt to be less likely. Patient does have history of ischemic cardiomyopathy and his ejection fraction is normally in the range of 40%. Repeat echocardiogram is pending Review of Systems CONSTITUTIONAL: Negative. EYES: Denies change in vision. EARS, NOSE, MOUTH, THROAT: Negative. CARDIOVASCULAR: Negative. RESPIRATORY: Denies shortness of breath, cough, congestion or hemoptysis. GASTROINTESTINAL: Nausea and vomiting for 2 days prior to presentation. GENITOURINARY: Denies hematuria, denies infections. MUSKULOSKELETAL: Denies pain, denies swelling. INTEGUMENTARY: Denies rash, denies eczema. NEUROLOGICAL: Denies recent memory loss, no recent seizure activity. PSYCHIATRIC: Denies anxiety, denies depression. HEMATOLOGIC/LYMPHATIC: Denies anemia, denies enlarged lymph nodes. Past Medical History Past Medical History: Atrial Fibrillation, Coronary Artery Disease (CAD), Chest Pain / Angina, Diabetes Mellitus, GERD/Reflux, Hyperlipidemia, Hypertension, Myocardial Infarction (DC) Additional Past Medical History / Comment(s): Pt had CABG 07/2019 and had post op Afib/UTI with pseudomonas aeruginosa, ischemic cardiomyopathy, IDDM type II, pas t R scrotal abscess with sepsis, chronic lower back pain and bilateral leg pain, Last Myocardial Infarction Date:: 03/20/15 History of Any Multi-Drug Resistant Organisms: None Reported Past Surgical History: Back Surgery, Coronary Bypass/CABG, Heart Catheterization, Heart Catheterization With Stent, Orthopedic Surgery Additional Past Surgical History / Comment(s): 08/23/2019 CABG 3 vessels, PCI wit h total of 5 stents, L ankle ligament repair, R leg ORIF, low back surgery, colonoscopy. Past Anesthesia/Blood Transfusion Reactions: No Reported Reaction Additional Past Anesthesia/Blood Transfusion Reaction / Comment(s): Pt has received blood in past without reaction. Date of Last Stent Placement:: 02/2015 Past Psychological History: No Psychological Hx Reported Additional Psychological History / Comment(s): Pt resides with his sister. He has a cane to ambulate and a glucometer. He has home care thru [facility]. He cannot currently drive d/t recent CABG, his evangelina takes him to app. Smoking Status: Former smoker Past Alcohol Use History: None Reported Additional Past Alcohol Use History / Comment(s): Pt started smoking in 1968 and quit in 2014. He was a 2 ppd smoker. Pt states he was a heavy drinker but quit in 2001. Past Drug Use History: Marijuana Additional Drug Use History / Comment(s): Occasional marijuana.-INSTRUCTED TO REFRAIN FROM USE FOR AT LEAST 24 HOURS PRIOR TO PROCEDURE - Past Family History Sister(s) Family Medical History: Coronary Artery Disease (CAD), Hypertension Father Family Medical History: Coronary Artery Disease (CAD), Diabetes Mellitus, Deep Vein Thrombosis (DVT), Hypertension Additional Family Medical History / Comment(s): Father at age 58yrs. He of blood clot from leg injury that went to his heart. Medications and Allergies Home Medications Medication Instructions Recorded Confirmed Type Atorvastatin [Lipitor] 40 mg PO DAILY #30 tab 10/24/19 09/20/20 Rx Spironolactone [Aldactone] 25 mg PO DAILY #30 tab 10/24/19 09/20/20 Rx DULoxetine HCL [Cymbalta] 60 mg PO BID 11/16/19 09/20/20 History Semaglutide [Ozempic] 0.25 mg SQ WE 11/16/19 09/20/20 History glipiZIDE [Glucotrol] 5 mg PO AC-BID 11/16/19 09/20/20 History metFORMIN HCL 1,000 mg PO BID 11/16/19 09/20/20 History Apixaban [Eliquis] 5 mg PO BID tab 11/18/19 09/20/20 Rx Insulin Aspart [NovoLOG Flexpen] 10 units SQ AC-TID PRN 03/01/20 09/20/20 History oxyCODONE ER [OxyCONTIN] 80 mg PO Q12H 03/01/20 09/20/20 History oxyCODONE HCL [oxyCODONE HCL (IR)] 15 mg PO Q8H 03/01/20 09/20/20 History Aspirin 81 mg PO DAILY #30 chew 04/10/20 09/20/20 Rx Lisinopril-Hctz 20-12.5 mg 1 tab PO BID 06/16/20 09/20/20 History [Zestoretic 20-12.5] rOPINIRole HCL [Requip] 1 mg PO BID 06/16/20 09/20/20 History Insulin Glargine,Hum.rec.anlog 25 unit SQ HS 08/22/20 09/20/20 History [Basaglar Kwikpen U-100] Pregabalin [Lyrica] 75 mg PO BID 08/22/20 09/20/20 History carvediloL [Coreg] 6.25 mg PO BID-W/MEALS #60 tab 08/23/20 09/20/20 Rx Allergies Allergy/AdvReac Type Severity Reaction Status Date / Time No Known Allergies Allergy Verified 09/20/20 16:34 Physical Exam Vitals: Vital Signs Temp Pulse Resp BP Pulse Ox 09/21/20 10:15 87 12 123/66 99 09/21/20 10:00 88 12 105/55 97 09/21/20 09:45 86 11 L 107/57 95 09/21/20 09:30 85 11 L 110/66 97 09/21/20 09:15 88 14 131/65 96 09/21/20 09:00 96 10 L 117/64 99 09/21/20 08:45 93 13 133/75 96 09/21/20 08:30 97 13 111/64 99 09/21/20 08:15 95 9 L 84/59 97 09/21/20 08:00 98.2 F 95 12 121/55 97 09/21/20 07:45 96 15 138/64 97 09/21/20 07:30 99 12 124/80 96 09/21/20 07:15 109 H 12 137/67 96 09/21/20 07:00 92 16 118/72 98 09/21/20 06:45 78 14 117/63 98 09/21/20 06:30 83 14 104/56 98 09/21/20 06:15 78 12 97/50 97 09/21/20 06:00 75 12 96/51 99 09/21/20 05:45 74 14 100/55 99 09/21/20 05:30 73 12 93/48 98 09/21/20 05:15 72 16 91/49 98 09/21/20 05:00 72 10 L 97/55 98 09/21/20 04:45 73 12 86/43 100 09/21/20 04:30 71 16 89/48 100 09/21/20 04:15 75 9 L 87/50 97 09/21/20 04:00 97.7 F 74 10 L 80/45 95 09/21/20 03:45 125/63 09/21/20 03:30 77 12 103/53 94 L 09/21/20 03:15 77 12 95/51 96 09/21/20 03:00 85 12 125/63 96 09/21/20 02:45 82 12 118/64 96 09/21/20 02:30 84 12 130/72 95 09/21/20 02:15 125/63 09/21/20 02:00 84 12 127/64 96 09/21/20 01:45 85 12 124/61 97 09/21/20 01:30 84 8 L 118/59 97 09/21/20 01:15 84 7 L 111/69 97 09/21/20 00:31 81 16 125/63 99 09/21/20 00:00 80 16 110/80 99 09/20/20 23:54 97.7 F 97 H 09/20/20 23:16 85 16 90/58 96 09/20/20 21:09 71 16 84/57 99 09/20/20 19:09 75 18 102/74 99 09/20/20 18:15 18 113/80 99 09/20/20 18:00 18 92/78 99 09/20/20 17:45 69 18 96/61 99 09/20/20 17:30 73 18 86/55 99 09/20/20 17:15 71 18 75/54 99 09/20/20 16:45 73 16 74/53 99 09/20/20 16:30 74 16 74/46 99 09/20/20 16:15 74 16 67/51 99 09/20/20 15:22 96.2 F L 86 14 79/50 96 Intake and Output 09/20/20 09/21/20 09/21/20 22:59 06:59 14:59 Intake Total 188.569 3876.505 Output Total 220 190 Balance 786.667 3481.505 Intake: IV 1390 Sodium Chloride 0.9% 1, 390 000 ml @ 130 mls/hr IV . Q7H42M [facility] Rx#:[id number] Sodium Chloride 0.9% 1, 1000 000 ml @ 999 mls/hr IV . Q1H1M ONE Rx#:[id number] Intake, IV Titration 096.585 3849.505 Amount Norepinephrine 4 mg In 137.512 3.505 Sodium Chloride 0.9% 250 ml @ 0.05 MCG/KG/MIN 14. 603 mls/hr IV .[id number] ONE Rx#:[id number] Sodium Chloride 0.9% 1, 780 130 000 ml @ 130 mls/hr IV . Q7H42M [facility] Rx#:[id number] Sodium Chloride 0.9% 1, 1000 000 ml @ 999 mls/hr IV . Q1H1M ONE Rx#:[id number] Output: Urine 220 190 Other: Voiding Method Indwelling Catheter Indwelling Catheter Weight 76.657 kg 78.1 kg 78.1 kg GENERAL EXAM: Pleasant 64-year-old gentleman, alert, on 2 L nasal cannula, in no distress. HEAD: Normocephalic. Atraumatic. EYES: Normal reaction of pupils, equal size. NOSE: Clear with pink turbinates. THROAT: No erythema or exudates. NECK: No masses, no JVD. Right IJ triple-lumen catheter is noted. CHEST: No chest wall deformity. LUNGS: Equal air entry with no crackles, wheeze, rhonchi or dullness. CVS: S1 and S2 normal with no audible murmur, regular rhythm. ABDOMEN: No hepatosplenomegaly, normal bowel sounds, no guarding or rigidity. SPINE: No scoliosis or deformity SKIN: No rashes CENTRAL NERVOUS SYSTEM: No focal deficits, tone is normal in all 4 extremities. EXTREMITIES: There is no peripheral edema. No clubbing, no cyanosis. Peripheral pulses are intact. Results - Laboratory Findings CBC and BMP: 09/21/20 02:40 09/21/20 02:40 PT/INR, D-dimer PT 10.9 sec (9.0-12.0) 09/20/20 16:07 INR 1.0 (<1.2) 09/20/20 16:07 Abnormal lab findings: Abnormal Labs 09/20/20 09/20/20 09/20/20 15:56 16:07 16:07 WBC 20.0 H Neutrophils # 17.0 H Lymphocytes # Monocytes # 1.3 H Sodium 133 L Chloride 96 L Carbon Dioxide 17 L BUN 68 H Creatinine 5.34 H Glucose 142 H POC Glucose (mg/dL) 132 H Plasma Lactic Acid Chinedu Calcium AST Troponin I Total Protein 5.9 L Urine Protein Urine Glucose (UA) Urine Blood Amorphous Sediment Urine Bacteria 09/20/20 09/20/20 09/20/20 16:07 16:22 19:40 WBC Neutrophils # Lymphocytes # Monocytes # Sodium Chloride Carbon Dioxide BUN Creatinine Glucose POC Glucose (mg/dL) Plasma Lactic Acid Chinedu 6.5 H* 3.8 H* Calcium AST Troponin I 0.290 H* Total Protein Urine Protein Urine Glucose (UA) Urine Blood Amorphous Sediment Urine Bacteria 09/20/20 09/20/20 09/21/20 23:14 23:50 00:55 WBC Neutrophils # Lymphocytes # Monocytes # Sodium Chloride Carbon Dioxide BUN Creatinine Glucose POC Glucose (mg/dL) 155 H Plasma Lactic Acid Chinedu 2.5 H* Calcium AST Troponin I Total Protein Urine Protein 1+ H Urine Glucose (UA) Trace H Urine Blood Trace H Amorphous Sediment Occasional H Urine Bacteria Rare H 09/21/20 09/21/20 09/21/20 02:40 02:40 02:40 WBC 27.6 H Neutrophils # 25.1 H Lymphocytes # 0.8 L Monocytes # 1.5 H Sodium 134 L Chloride Carbon Dioxide 9 L* BUN 71 H Creatinine 5.14 H Glucose 195 H POC Glucose (mg/dL) Plasma Lactic Acid Chinedu Calcium 7.8 L AST 67 H Troponin I 14.300 H* Total Protein 5.8 L Urine Protein Urine Glucose (UA) Urine Blood Amorphous Sediment Urine Bacteria 09/21/20 09/21/20 09/21/20 02:40 06:17 07:02 WBC Neutrophils # Lymphocytes # Monocytes # Sodium Chloride Carbon Dioxide BUN Creatinine Glucose POC Glucose (mg/dL) 155 H Plasma Lactic Acid Chinedu 2.7 H* 2.4 H* Calcium AST Troponin I Total Protein Urine Protein Urine Glucose (UA) Urine Blood Amorphous Sediment Urine Bacteria - Diagnostic Findings Chest x-ray: image reviewed (No acute process is noted.) Assessment and Plan Assessment: Impression: Acute shock with hypovolemia and hypotension, suspect hypovolemic shock, although the possibility of septic shock and cardiogenic shock not entirely ruled out. Further workup is pending. Acute anion gap metabolic acidosis and lactic acidosis with acute kidney injury, could be related to hypovolemia could also be related to metformin since the patient was on metformin on outpatient basis. Possible septic shock, however sure seems to be very unclear since the patient had no symptoms to suspect infection except he was nauseated for the last 2 days prior to presentation. Type 2 diabetes. History of ischemic cardiomyopathy and history of CABG, repeat echocardiogram is pending. Acute kidney injury secondary to above. Chronic atrial fibrillation. Benign essential hypertension. History of CABG back in July 2019. Hypovolemic shock is strongly suspected. Recommendation: Continue IV fluids. Hold all diuretics Continue sodium bicarb. Continue empiric antibiotics. Avoid nephrotoxic agents. Continue sodium bicarb drip. Continue GI and DVT prophylaxis. Continue to hold metformin and blood pressure medications. Close monitoring of electrolytes and anion gap metabolic acidosis. Echocardiogram with Doppler which is pending. Blood cultures were done and pending. There is no clear-cut evidence of infection based on his presentation. We will continue to follow. Time with Patient: Greater than 30
--- NOTE | 2020-09-21 12:26 | ECHOF ---
Referral Reason:ELEVATED TROP MEASUREMENTS -------- HEIGHT: 170.2 cm WEIGHT: 78.0 kg BP: IVSd: 1.2 cm (0.6 - 1.1) LVIDd: 4.5 cm (3.9 - 5.3) LVPWd: 1.4 cm (0.6 - 1.1) IVSs: 1.5 cm LVIDs: 2.7 cm LVPWs: 1.5 cm LA Diam: 3.4 cm (2.7 - 3.8) Ao Diam: 3.0 cm (2.0 - 3.7) AV Cusp: 2.2 cm (1.5 - 2.6) LA Diam: 3.9 cm (2.7 - 3.8) MV EXCURSION: 19.783 mm (> 18.000) MV EF SLOPE: 107 mm/s (70 - 150) EPSS: 0.2 cm MV E Khanh: 0.73 m/s MV DecT: 79 ms MV A Khanh: 0.40 m/s MV E/A Ratio: 1.84 RAP: 5.00 mmHg RVSP: 21.28 mmHg FINDINGS -------- Undetermined rhythm. This was a techncally difficult study with suboptimal views, , Lumason utilized for enhancement of im ages. The left ventricular size is normal. There is mild concentric left ventricular hypertrophy. Overa ll left ventricular systolic function is mildly impaired with, an EF between 45 - 50 %. Basal infer ior LV wall motion is akinetic. Mid inferior LV wall motion is akinetic. Apical septum LV wall motion is akinetic. The right ventricle is normal in size. The left atrial size is normal. The right atrial size is normal. The aortic valve is trileaflet, and appears structurally normal. No aortic stenosis or regurgitation. Mild mitral regurgitation is present. Mild tricuspid regurgitation present. Right ventricular systolic pressure is normal at < 35 mmHg. The pulmonic valve was not well visualized. The aortic root size is normal. There is no pericardial effusion. CONCLUSIONS -------- 1. This was a techncally difficult study with suboptimal views, , Lumason utilized for enhancement of images. 2. The left ventricular size is normal. 3. There is mild concentric left ventricular hypertrophy. 4. Basal inferior LV wall motion is akinetic. 5. Mid inferior LV wall motion is akinetic. 6. Apical septum LV wall motion is akinetic. 7. The right ventricle is normal in size. 8. The left atrial size is normal. 9. The right atrial size is normal. 10. The aortic valve is trileaflet, and appears structurally normal. No aortic stenosis or regurgitat ion. 11. Mild mitral regurgitation is present. 12. Mild tricuspid regurgitation present. 13. The pulmonic valve was not well visualized. 14. The aortic root size is normal. 15. There is no pericardial effusion. USED [employer] WORKER: Deanna Clemons RDCS
[2020-09-21] MEDS ORDERED: HEPARIN SODIUM 1,000 UN/ML (10ML VL) IV ONE (14:26)
[2020-09-21] MEDS: HEPARIN SOD,PORK IN 0.45% NACL 25,000 UNIT in 0.45% NACL 1 250ML.BAG IV SCH (14:46)
[2020-09-21] MEDS: oxyCODONE ER 80 MG TAB.ER.12H PO SCH (16:08)
[2020-09-21 16:38] LABS: Glucose,Whole Blood 262 mg/dL (75-99)
[2020-09-21] MEDS: INSULIN ASPART (NovoLOG) 100 UNIT/ML VIAL SQ SCH ×3 (17:06→20:50)
[2020-09-21] MEDS: carvediloL 6.25 MG TAB PO SCH (17:07)
--- NOTE | 2020-09-21 17:08 | CONS ---
CONSULTATION HISTORY OF PRESENT ILLNESS: Ashok Austin is a 65-year-old gentleman with a known history of CAD, prior multiple PCI and bypass surgery. He had surgery in 2019. He has history of chronic atrial fibrillation. He presented to the ER with a 2 days history of nausea, vomiting, shortness of breath, not eating anything. He was found to be quite dehydrated, hypotensive requiring IV fluids. Creatinine was up to 5.3. Initial troponin was not so remarkable, but subsequent troponin was high at 14.3. He was quite acidotic with a low bicarb. Blood sugar was also elevated. He was initially given IV fluids. Subsequently placed on a small dose of norepinephrine, but he seems to be doing better now. Echocardiogram was performed. I reviewed the echo. Ejection fraction is about 40-45 percent, inferior wall hypokinesia, which is also known to be previously is noted. While patient's troponin is significantly elevated, most of this I think is related to the patient's acidosis, hypoxia, poor perfusion rather than primary myocardial injury. The patient is resting comfortably without symptoms. He feels well. His nausea and vomiting seems improved. The patient has history of CAD, prior bypass surgery, previous PCI of RCA in 2007 and 2014. He has paroxysmal atrial fibrillation, he also has type 2 diabetes mellitus. He takes a combination of glipizide and Glucotrol. The patient has a history of low back pain and also history of previous nondescript infections. PHYSICAL EXAMINATION: On examination, blood pressure is 128/70, pulse rate is about 90. Rhythm seems to be sinus or ectopic atrial. HEENT unremarkable. Fundus was not examined by me. Neck is supple. There is no JVD. I do not hear a carotid bruit. Heart exam reveals S1, S2 with a rhythm that is regular, short systolic murmur at the left sternal border. LUNGS revealed bilateral decent air entry. Abdomen is soft. Lower extremities reveal diminished pulses. Central nervous system grossly within normal limits. EKG revealed a sinus mechanism with IVCD, LVH, left axis and isolated PVCs. LAB DATA: Suggests that his creatinine is significantly elevated up to 5.34. After hydration, he has started putting out some urine. Chest x-ray does not reveal any significant abnormalities. IMPRESSION: 1. Nausea, vomiting with acute hypovolemia and acute kidney injury. 2. Elevated troponin, probably is a type 2 myocardial infarction with significant acidosis. Echo revealed very similar LV function and appearance. 3. History of coronary artery disease with prior bypass surgery and known inferior wall hypokinesis, ejection fraction in the 40-45% range. 4. Type 2 diabetes. 5. Hyperlipidemia. RECOMMENDATIONS: I am recommending that we continue hydration and further management by Dr. Pope and Nephrology. No aggressive intervention at this time. However, if the situation changes, we will consider additional testing, but I would not recommend any coronary angiography or any intervention at this time. Hopefully his creatinine elevation is mostly prerenal azotemia and some of it will come down. Thank you very much for the consult. MMLAURA / CAROLINEN: [id number] /
[2020-09-21] MEDS ORDERED: VANCOMYCIN 1,500 MG in SODIUM CHLORIDE 0.9% 250 ML IVPB ONE (19:00)
[2020-09-21 20:50] LABS: Glucose,Whole Blood 160 mg/dL (75-99)
[2020-09-21] MEDS: INSULIN DETEMIR (LEVEMIR) 100 UNIT/ML SYR SQ SCH (20:50)
[2020-09-21] MEDS: PREGABALIN 75 MG CAP PO SCH (21:06)
[2020-09-21] MEDS: DULoxetine HCL 60 MG CAPSULE.DR PO SCH (21:06)
--- NOTE | 2020-09-22 03:37 | P.HPIM ---
History of Present Illness H&P Date: 09/21/20 Chief Complaint: michael Austin is a 65 yo M with PMH of CAD, CABG, ischemic cardiomyopathy, T2DM who presented to the ED complaining of nausea, vomiting, weakness and malaise. He states that he had been vomiting multiple times yesterday as well as experiencing diarrhea. He denies experiencing any chest pain, shortness of breath, no cough, no fever, no chills, no dysuria and no frequency no urgency. Upon presentation to the ER, pt hypotensive, WBC 20.0, BUN 68, Cr 5.34, AGMA with anion agap of 20. Initial troponin was significantly elevated at 14, EKG showing NSR. Pt given 3 L NS and transferred to ICU he had a central line placed and was started on Norepinephrine. Currently pt feeling much better, relatively asymptomatic and reports just some residual abdominal pain. Review of Systems All systems: negative Constitutional: Reports malaise, Reports sweats, Reports weakness, Denies chil ls, Denies fever Eyes: denies blurred vision, denies pain Ears, nose, mouth and throat: Denies headache, Denies sore throat Cardiovascular: Denies chest pain, Denies shortness of breath Respiratory: Denies cough Gastrointestinal: Reports abdominal pain, Reports diarrhea, Reports nausea Musculoskeletal: Denies myalgias Integumentary: Denies pruritus, Denies rash Neurological: Denies numbness, Denies weakness Psychiatric: Denies anxiety, Denies depression Endocrine: Denies fatigue, Denies weight change Past Medical History Past Medical History: Atrial Fibrillation, Coronary Artery Disease (CAD), Chest Pain / Angina, Diabetes Mellitus, GERD/Reflux, Hyperlipidemia, Hypertension, Myocardial Infarction (MD) Additional Past Medical History / Comment(s): Pt had CABG 07/2019 and had post op Afib/UTI with pseudomonas aeruginosa, ischemic cardiomyopathy, IDDM type II, past R scrotal abscess with sepsis, chronic lower back pain and bilateral leg pain, Last Myocardial Infarction Date:: 03/20/15 History of Any Multi-Drug Resistant Organisms: None Reported Past Surgical History: Back Surgery, Coronary Bypass/CABG, Heart Catheterization, Heart Catheterization With Stent, Orthopedic Surgery Additional Past Surgical History / Comment(s): 08/23/2019 CABG 3 vessels, PCI with total of 5 stents, L ankle ligament repair, R leg ORIF, low back surgery, colonoscopy. Past Anesthesia/Blood Transfusion Reactions: No Reported Reaction Additional Past Anesthesia/Blood Transfusion Reaction / Comment(s): Pt has received blood in past without reaction. Date of Last Stent Placement:: 02/2015 Past Psychological History: No Psychological Hx Reported Additional Psychological History / Comment(s): Pt resides with his sister. He has a cane to ambulate and a glucometer. He has home care thru [facility]. He cannot currently drive d/t recent CABG, his evangelina takes him to app. Smoking Status: Former smoker Past Alcohol Use History: None Reported Additional Past Alcohol Use History / Comment(s): Pt started smoking in 1968 and quit in 2014. He was a 2 ppd smoker. Pt states he was a heavy drinker but quit in 2001. Past Drug Use History: Marijuana Additional Drug Use History / Comment(s): Occasional marijuana.-INSTRUCTED TO REFRAIN FROM USE FOR AT LEAST 24 HOURS PRIOR TO PROCEDURE - Past Family History Sister(s) Family Medical History: Coronary Artery Disease (CAD), Hypertension Father Family Medical History: Coronary Artery Disease (CAD), Diabetes Mellitus, Deep Vein Thrombosis (DVT), Hypertension Additional Family Medical History / Comment(s): Father at age 58yrs. He of blood clot from leg injury that went to his heart. Medications and Allergies Home Medications Medication Instructions Recorded Confirmed Type Atorvastatin [Lipitor] 40 mg PO DAILY #30 tab 10/24/19 09/20/20 Rx Spironolactone [Aldactone] 25 mg PO DAILY #30 tab 10/24/19 09/20/20 Rx DULoxetine HCL [Cymbalta] 60 mg PO BID 11/16/19 09/20/20 History Semaglutide [Ozempic] 0.25 mg SQ WE 11/16/19 09/20/20 History glipiZIDE [Glucotrol] 5 mg PO AC-BID 11/16/19 09/20/20 History metFORMIN HCL 1,000 mg PO BID 11/16/19 09/20/20 History Apixaban [Eliquis] 5 mg PO BID tab 11/18/19 09/20/20 Rx Insulin Aspart [NovoLOG Flexpen] 10 units SQ AC-TID PRN 03/01/20 09/20/20 History oxyCODONE ER [OxyCONTIN] 80 mg PO Q12H 03/01/20 09/20/20 History oxyCODONE HCL [oxyCODONE HCL (IR)] 15 mg PO Q8H 03/01/20 09/20/20 History Aspirin 81 mg PO DAILY #30 chew 04/10/20 09/20/20 Rx Lisinopril-Hctz 20-12.5 mg 1 tab PO BID 06/16/20 09/20/20 History [Zestoretic 20-12.5] rOPINIRole HCL [Requip] 1 mg PO BID 06/16/20 09/20/20 History Insulin Glargine,Hum.rec.anlog 25 unit SQ HS 08/22/20 09/20/20 History [Basaglar Kwikpen U-100] Pregabalin [Lyrica] 75 mg PO BID 08/22/20 09/20/20 History carvediloL [Coreg] 6.25 mg PO BID-W/MEALS #60 tab 08/23/20 09/20/20 Rx Allergies Allergy/AdvReac Type Severity Reaction Status Date / Time No Known Allergies Allergy Verified 09/20/20 16:34 Physical Exam Vitals: Vital Signs Temp Pulse Resp BP Pulse Ox 09/22/20 00:00 98.2 F 96 18 92/58 94 L 09/21/20 23:30 89 13 92/49 95 09/21/20 23:00 90 14 94/57 95 09/21/20 22:30 96 18 107/61 95 09/21/20 22:00 101 H 19 122/67 97 09/21/20 21:30 93 12 119/63 95 09/21/20 21:00 95 14 89/72 94 L 09/21/20 20:30 94 7 L 76/61 95 09/21/20 20:00 98.1 F 93 8 L 98/52 95 09/21/20 19:30 101 H 12 111/95 94 L 09/21/20 19:00 112 H 13 129/67 96 09/21/20 18:30 102 H 17 110/73 96 09/21/20 18:00 105 H 13 119/64 94 L 09/21/20 17:30 105 H 15 126/67 93 L 09/21/20 17:00 118 H 15 124/77 93 L 09/21/20 16:30 90 16 119/72 92 L 09/21/20 16:00 98.2 F 87 12 119/63 92 L 09/21/20 15:30 90 13 119/68 91 L 09/21/20 15:00 87 11 L 116/67 92 L 09/21/20 14:45 87 14 110/61 94 L 09/21/20 14:30 85 13 108/65 94 L 09/21/20 14:15 86 12 94/54 96 09/21/20 14:00 89 18 90/56 93 L 09/21/20 13:45 87 15 101/59 94 L 09/21/20 13:30 89 11 L 115/68 94 L 09/21/20 13:15 98 22 116/68 94 L 09/21/20 13:00 93 12 129/70 93 L 09/21/20 12:45 100 12 127/63 94 L 09/21/20 12:30 105 H 19 120/63 92 L 09/21/20 12:15 96 25 H 133/72 91 L 09/21/20 12:00 98.2 F 95 7 L 135/75 91 L 09/21/20 11:45 19 145/73 09/21/20 11:30 93 13 140/73 97 09/21/20 11:15 90 17 139/70 96 09/21/20 11:00 91 18 146/70 97 09/21/20 10:45 95 11 L 138/76 97 09/21/20 10:30 93 16 123/66 97 09/21/20 10:15 87 12 123/66 99 09/21/20 10:00 88 12 105/55 97 09/21/20 09:45 86 11 L 107/57 95 09/21/20 09:30 85 11 L 110/66 97 09/21/20 09:15 88 14 131/65 96 09/21/20 09:00 96 10 L 117/64 99 09/21/20 08:45 93 13 133/75 96 09/21/20 08:30 97 13 111/64 99 09/21/20 08:15 95 9 L 84/59 97 09/21/20 08:00 98.2 F 95 12 121/55 97 09/21/20 07:45 96 15 138/64 97 09/21/20 07:30 99 12 124/80 96 09/21/20 07:15 109 H 12 137/67 96 09/21/20 07:00 92 16 118/72 98 09/21/20 06:45 78 14 117/63 98 09/21/20 06:30 83 14 104/56 98 09/21/20 06:15 78 12 97/50 97 09/21/20 06:00 75 12 96/51 99 09/21/20 05:45 74 14 100/55 99 09/21/20 05:30 73 12 93/48 98 09/21/20 05:15 72 16 91/49 98 09/21/20 05:00 72 10 L 97/55 98 09/21/20 04:45 73 12 86/43 100 09/21/20 04:30 71 16 89/48 100 09/21/20 04:15 75 9 L 87/50 97 09/21/20 04:00 97.7 F 74 10 L 80/45 95 09/21/20 03:45 125/63 09/21/20 03:30 77 12 103/53 94 L 09/21/20 03:15 77 12 95/51 96 09/21/20 03:00 85 12 125/63 96 09/21/20 02:45 82 12 118/64 96 09/21/20 02:30 84 12 130/72 95 09/21/20 02:15 125/63 09/21/20 02:00 84 12 127/64 96 09/21/20 01:45 85 12 124/61 97 09/21/20 01:30 84 8 L 118/59 97 09/21/20 01:15 84 7 L 111/69 97 Intake and Output 09/21/20 09/21/20 09/22/20 14:59 22:59 06:59 Intake Total 3020.763 800 200 Output Total 566 1010 300 Balance 2454.763 -210 -100 Intake: IV 1790 800 200 Dextrose 5% in Water 1, 400 800 200 000 ml @ 100 mls/hr IV . [id number] GABBY with Sodium Bicarb (1 Meq/ml) 150 ml Rx#:[id number] Sodium Chloride 0.9% 1, 390 000 ml @ 130 mls/hr IV . Q7H42M GABBY Rx#:[id number] Sodium Chloride 0.9% 1, 1000 000 ml @ 999 mls/hr IV . Q1H1M ONE Rx#:[id number] Intake, IV Titration 1230.763 Amount Norepinephrine 4 mg In 100.763 Sodium Chloride 0.9% 250 ml @ 0.05 MCG/KG/MIN 14. 603 mls/hr IV .[id number] ONE Rx#:[id number] Sodium Chloride 0.9% 1, 130 000 ml @ 130 mls/hr IV . Q7H42M GABBY Rx#:[id number] Sodium Chloride 0.9% 1, 1000 000 ml @ 999 mls/hr IV . Q1H1M ONE Rx#:[id number] Output: Urine 565 1010 300 Stool 1 Other: Voiding Method Indwelling Catheter Indwelling Catheter Indwelling Catheter Weight 78.1 kg General: well developed, well nourished, NAD. Vitals reviewed HEENT: Normocephalic, atraumatic, mucus membranes moist Neck: supple, no thyromegaly, no JVD CV: Irregularly irregular, no murmur. Pulses 2+ Lungs: Normal effort, clear throughout Abd: soft, non distended, mild LLQ tenderness Neuro: alert and oriented x3, no focal deficits Skin: warm and dry Results CBC & Chem 7: 09/21/20 02:40 09/21/20 02:40 Labs: Abnormal Lab Results - Last 24 Hours (Table) 09/20/20 09/21/20 09/21/20 Range/Units 19:40 00:55 02:40 WBC 27.6 H (3.8-10.6) k/uL Neutrophils # 25.1 H (1.3-7.7) k/uL Lymphocytes # 0.8 L (1.0-4.8) k/uL Monocytes # 1.5 H (0-1.0) k/uL APTT (22.0-30.0) sec Sodium (137-145) mmol/L Carbon Dioxide (22-30) mmol/L BUN (9-20) mg/dL Creatinine (0.66-1.25) mg/dL Glucose (74-99) mg/dL POC Glucose (mg/dL) 155 H (75-99) mg/dL Plasma Lactic Acid Chinedu (0.7-2.0) mmol/L Calcium (8.4-10.2) mg/dL AST (17-59) U/L Troponin I (0.000-0.034) ng/mL Total Protein (6.3-8.2) g/dL Procalcitonin 1.01 H (0.02-0.09) ng/mL 09/21/20 09/21/20 09/21/20 Range/Units 02:40 02:40 02:40 WBC (3.8-10.6) k/uL Neutrophils # (1.3-7.7) k/uL Lymphocytes # (1.0-4.8) k/uL Monocytes # (0-1.0) k/uL APTT (22.0-30.0) sec Sodium 134 L (137-145) mmol/L Carbon Dioxide 9 L* (22-30) mmol/L BUN 71 H (9-20) mg/dL Creatinine 5.14 H (0.66-1.25) mg/dL Glucose 195 H (74-99) mg/dL POC Glucose (mg/dL) (75-99) mg/dL Plasma Lactic Acid Chinedu 2.7 H* (0.7-2.0) mmol/L Calcium 7.8 L (8.4-10.2) mg/dL AST 67 H (17-59) U/L Troponin I 14.300 H* (0.000-0.034) ng/mL Total Protein 5.8 L (6.3-8.2) g/dL Procalcitonin (0.02-0.09) ng/mL 09/21/20 09/21/20 09/21/20 Range/Units 06:17 07:02 11:37 WBC (3.8-10.6) k/uL Neutrophils # (1.3-7.7) k/uL Lymphocytes # (1.0-4.8) k/uL Monocytes # (0-1.0) k/uL APTT (22.0-30.0) sec Sodium (137-145) mmol/L Carbon Dioxide (22-30) mmol/L BUN (9-20) mg/dL Creatinine (0.66-1.25) mg/dL Glucose (74-99) mg/dL POC Glucose (mg/dL) 155 H 228 H (75-99) mg/dL Plasma Lactic Acid Chinedu 2.4 H* (0.7-2.0) mmol/L Calcium (8.4-10.2) mg/dL AST (17-59) U/L Troponin I (0.000-0.034) ng/mL Total Protein (6.3-8.2) g/dL Procalcitonin (0.02-0.09) ng/mL 09/21/20 09/21/20 09/21/20 Range/Units 15:18 16:36 20:29 WBC (3.8-10.6) k/uL Neutrophils # (1.3-7.7) k/uL Lymphocytes # (1.0-4.8) k/uL Monocytes # (0-1.0) k/uL APTT 47.8 H (22.0-30.0) sec Sodium (137-145) mmol/L Carbon Dioxide (22-30) mmol/L BUN (9-20) mg/dL Creatinine (0.66-1.25) mg/dL Glucose (74-99) mg/dL POC Glucose (mg/dL) 262 H (75-99) mg/dL Plasma Lactic Acid Chinedu (0.7-2.0) mmol/L Calcium (8.4-10.2) mg/dL AST (17-59) U/L Troponin I 7.680 H* (0.000-0.034) ng/mL Total Protein (6.3-8.2) g/dL Procalcitonin (0.02-0.09) ng/mL 09/21/20 Range/Units 20:49 WBC (3.8-10.6) k/uL Neutrophils # (1.3-7.7) k/uL Lymphocytes # (1.0-4.8) k/uL Monocytes # (0-1.0) k/uL APTT (22.0-30.0) sec Sodium (137-145) mmol/L Carbon Dioxide (22-30) mmol/L BUN (9-20) mg/dL Creatinine (0.66-1.25) mg/dL Glucose (74-99) mg/dL POC Glucose (mg/dL) 160 H (75-99) mg/dL Plasma Lactic Acid Chinedu (0.7-2.0) mmol/L Calcium (8.4-10.2) mg/dL AST (17-59) U/L Troponin I (0.000-0.034) ng/mL Total Protein (6.3-8.2) g/dL Procalcitonin (0.02-0.09) ng/mL Microbiology - Last 24 Hours (Table) 09/20/20 16:07 Blood Culture - Preliminary Blood No Growth after 24 hours 09/20/20 16:07 Blood Culture - Preliminary Blood No Growth after 24 hours Thrombosis Risk Factor Assmnt - Choose All That Apply Each Factor Represents 1 point: Age 41-60 years, Medical pt on bed rest, Obesity (BMI >25), Sepsis (< 1month) Each Risk Factor Represents 2 Points: Age 61-74 years, Central venous access Each Risk Factor Represents 3 Points: History of DVT/PE Other congenital or acquired thrombophilia - If yes, enter type in comment: No Thrombosis Risk Factor Assessment Total Risk Factor Score: 11 Thrombosis Risk Factor Assessment Level: High Risk Assessment and Plan (1) Septic shock Current Visit: Yes Status: Acute Code(s): A41.9 - SEPSIS, UNSPECIFIED ORGANISM; R65.21 - SEVERE SEPSIS WITH SEPTIC SHOCK SNOMED Code(s): 63056027 (2) Acute kidney injury Current Visit: Yes Status: Acute Code(s): N17.9 - ACUTE KIDNEY FAILURE, UNSPECIFIED SNOMED Code(s): 75095064 (3) SIRS (systemic inflammatory response syndrome) Current Visit: Yes Status: Acute Code(s): R65.10 - SIRS OF NON-INFECTIOUS ORIGIN W/O ACUTE ORGAN DYSFUNCTION SNOMED Code(s): 234186999 (4) Severe dehydration Current Visit: Yes Status: Acute Code(s): E86.0 - DEHYDRATION SNOMED Code(s): 578627173 (5) Atrial flutter with rapid ventricular response Current Visit: No Status: Acute Code(s): I48.92 - UNSPECIFIED ATRIAL FLUTTER SNOMED Code(s): 1649797 (6) Hypotension Current Visit: No Status: Acute Code(s): I95.9 - HYPOTENSION, UNSPECIFIED SNOMED Code(s): 81794070 (7) Ischemic heart disease Current Visit: No Status: Acute Code(s): I25.9 - CHRONIC ISCHEMIC HEART DISEASE, UNSPECIFIED SNOMED Code(s): 260049294 (8) Lactic acidosis Current Visit: No Status: Acute Code(s): E87.2 - ACIDOSIS SNOMED Code(s): 45633758 Plan: 1. Septic shock, no definitive source, suspect abdominal with residual tenderness and hx vomiting and diarrhea. Start Vancomycin and zosyn. Follow blood cultures. Daily labs 2. NSTEMI. Cardiology consulted for further evaluation. Heparin drip. Repeat echocardiogram 3. Acute renal failure. Nephrology consult. IV fluid rehydration. Continue to follow renal function 4. T2DM. Hold metformin. Accuchecks and sliding scale 5. Neuropathy. Continue lyrica and ropinirole
[2020-09-22] MEDS: oxyCODONE ER 80 MG TAB.ER.12H PO SCH ×2 (04:14→16:11)
[2020-09-22 06:02] LABS: INR 0.9 (<1.2); Partial Thromboplastin Time 63.5 sec (22.0-30.0); Prothrombin Time 10.1 sec (9.0-12.0)
[2020-09-22 06:04] LABS: Albumin 2.7 g/dL (3.5-5.0); Potassium 2.9 mmol/L (3.5-5.1); Total Bilirubin 0.2 mg/dL (0.2-1.3); Total Protein 4.7 g/dL (6.3-8.2)
[2020-09-22 06:57] LABS: Basophils % (A) 0 %; Eosinophils # (A) 0.1 k/uL (0-0.7); Eosinophils % (A) 1 %; HCT 31.5 % (39.0-53.0); Lymphocytes # (A) 1.1 k/uL (1.0-4.8); Lymphocytes % (A) 9 %; MCH 30.4 pg (25.0-35.0); MCHC 32.7 g/dL (31.0-37.0); MCV 93.1 fL (80.0-100.0); Mean Platelet Volume 7.3; Monocytes # (A) 0.8 k/uL (0-1.0); Monocytes % (A) 7 %; Neutrophils # (A) 9.4 k/uL (1.3-7.7); Neutrophils % (A) 82 %; Platelet Count 258 k/uL (150-450); RBC 3.38 m/uL (4.30-5.90); RDW 14.3 % (11.5-15.5); WBC 11.5 k/uL (3.8-10.6)
[2020-09-22 07:05] LABS: HGB 10.3 gm/dL (13.0-17.5)
[2020-09-22] MEDS ORDERED: Potassium Replacement Protocol 1 EACH MISC MISCELLANE PRN (07:05)
[2020-09-22 07:10] LABS: Glucose,Whole Blood 238 mg/dL (75-99)
[2020-09-22] MEDS: SODIUM CHLORIDE 0.9% 1,000 ML IV SCH ×2 (07:12→19:48)
[2020-09-22] MEDS: INSULIN ASPART (NovoLOG) 100 UNIT/ML VIAL SQ SCH ×7 (07:12→20:40)
[2020-09-22] MEDS: DULoxetine HCL 60 MG CAPSULE.DR PO SCH ×2 (07:53→20:53)
[2020-09-22] MEDS: PREGABALIN 75 MG CAP PO SCH ×2 (07:53→20:53)
[2020-09-22] MEDS: carvediloL 6.25 MG TAB PO SCH ×2 (07:53→17:08)
[2020-09-22] MEDS: PIPERACILLIN-TAZOBACTAM 3.375 GM in SODIUM CHLORIDE 0.9% 100 ML IVPB SCH ×2 (07:53→20:46)
[2020-09-22] MEDS: POTASSIUM CHLORIDE 20 MEQ in WATER FOR INJECTION 1 100ML.BAG IVPB SCH ×2 (07:54→10:48)
[2020-09-22] MEDS: ATORVASTATIN 40 MG TAB PO SCH (09:39)
[2020-09-22] MEDS: DEXTROSE 5% IN WATER 1,000 ML with SODIUM BICARB (1 MEQ/ML) 150 ML IV SCH (10:50)
[2020-09-22 11:24] LABS: Glucose,Whole Blood 77 mg/dL (75-99)
--- NOTE | 2020-09-22 12:25 | P.PN ---
Subjective Progress Note Date: 09/22/20 Principal diagnosis: Hypovolemic shock with profound metabolic acidosis secondary to metformin. And acute kidney injury. This is a 65-year-old white male with history of multiple medical problems including coronary artery disease and previous CABG. History of ischemic cardiomyopathy. Patient had CABG back in July 2019. History of chronic atrial fibrillation. History of multiple stents placed previously before his CABG. Patient presented to the ER yesterday with 2 days history of nausea and vomiting. But he had no shortness of breath, no cough, no fever, no chills, no hemoptysis, no chest pain, patient had no nausea no vomiting no abdominal pain, and he had no symptoms of urinary tract infection. No dysuria and no frequency no urgency. Upon presentation to the ER, patient was noted to be hypotensive he was also noted to have leukocytosis with WBC count as high as 20.0. Patient was also noted to have severe anion gap metabolic acidosis with anion gap of 20. Acute kidney injury with a BUN of 68 creatinine of 5.34. Although his creatinine back in July of 2020 was just over 1. Lactic acid was as high as 6.5. Troponin was significantly elevated at 14.3. And bicarb was only 17. Later went down to 9. Patient required fluid boluses at least 3 L of fluids were given in the ER, and another liter was given upon arrival to the ICU. Patient required a central line placement in the ER, and started on norepinephrine. I saw the patient in the ICU, he is on 2 L nasal cannula. He is on IV fluid in the form of 0.9 normal saline at 130 per hour. Norepinephrine at 0.04 mcg/kg/m. Patient is relatively asymptomatic, feels significantly better compared to how he felt upon his initial presentation, and he does not seem to be in any distress. Again no active symptoms to suggest ongoing infection however his presentation was mostly a presentation of sepsis and hypovolemia although the possibility of cardiogenic shock is not entirely ruled out but felt to be less likely. Patient does have history of ischemic cardiomyopathy and his ejection fraction is normally in the range of 40%. Repeat echocardiogram is pending Reevaluated today on 09/22/2020, patient remains in the ICU, he is definitely improving. Patient responded well mostly to fluids, bicarb, and history of functioning is gradually improving. Remains off metformin. His pro-calcitonin level is only 1. Chest x-ray continues to show no evidence of infiltrate. BUN is improving creatinine is down to 4.44, improving. Potassium is low at 2.9 being corrected as per protocol. Echocardiogram showed evidence of LV dysfunction with ejection fraction of 45%. His acidosis did correct nicely and I'm stopping his bicarb today. Remains on IV fluid of 0.9 normal saline at 75 mL per hour. Patient received significant amount of fluid boluses upon his initial presentation because it was felt that the patient had mostly hypovolemic shock, although the possibility of septic shock was entertained, but felt to be less likely at this point there was no source of infection and cultures have remained negative. Patient denies any shortness of breath cough or wheezing. He is not requiring any pressors. And I plan to keep him in the ICU for another day. Objective - Vital Signs Vital signs: Vital Signs Temp 97.9 F 09/22/20 08:00 Pulse 84 09/22/20 11:00 Resp 15 09/22/20 11:00 BP 95/67 09/22/20 11:00 Pulse Ox 95 09/22/20 11:00 Intake & Output 09/21/20 09/22/20 09/22/20 18:59 06:59 18:59 Intake Total 3420.763 1200 800 Output Total 896 2105 950 Balance 2524.763 -905 -150 Weight 78.1 kg 84.4 kg Intake: IV 2190 1200 500 Dextrose 5% in Water 1, 800 1200 500 000 ml @ 100 mls/hr IV . [id number] GAB[facility] with Sodium Bicarb (1 Meq/ml) 150 ml Rx#:[id number] Sodium Chloride 0.9% 1, 390 000 ml @ 130 mls/hr IV . Q7H42M G[facility] Rx#:[id number] Sodium Chloride 0.9% 1, 1000 000 ml @ 999 mls/hr IV . Q1H1M ONE Rx#:[id number] Intake, IV Titration 1230.763 300 Amount Norepinephrine 4 mg In 100.763 Sodium Chloride 0.9% 250 ml @ 0.05 MCG/KG/MIN 14. 603 mls/hr IV .[id number] ONE Rx#:[id number] Piperacillin-Tazobactam 3 100 .375 gm In Sodium Chloride 0.9% 100 ml @ 25 mls/hr IVPB Q12HR [facility] Rx #:[id number] Potassium Chloride 20 meq 200 In Water For Injection 1 100ml.bag @ 50 mls/hr IVPB Q2H [facility] Rx#: [id number] Sodium Chloride 0.9% 1, 130 000 ml @ 130 mls/hr IV . Q7H42M [facility] Rx#:[id number] Sodium Chloride 0.9% 1, 1000 000 ml @ 999 mls/hr IV . Q1H1M ONE Rx#:[id number] Output: Urine 895 2105 950 Stool 1 Other: Voiding Method Indwelling Catheter Indwelling Catheter Indwelling Catheter - Exam GENERAL EXAM: Pleasant 64-year-old gentleman, alert, on room air. HEAD: Normocephalic. Atraumatic. EYES: Normal reaction of pupils, equal size. NOSE: Clear with pink turbinates. THROAT: No erythema or exudates. NECK: No masses, no JVD. Right IJ triple-lumen catheter is noted. CHEST: No chest wall deformity. LUNGS: Equal air entry with no crackles, wheeze, rhonchi or dullness. CVS: S1 and S2 normal with no audible murmur, regular rhythm. ABDOMEN: No hepatosplenomegaly, normal bowel sounds, no guarding or rigidity. SPINE: No scoliosis or deformity SKIN: No rashes CENTRAL NERVOUS SYSTEM: No focal deficits, tone is normal in all 4 extremities. EXTREMITIES: There is no peripheral edema. No clubbing, no cyanosis. Peripheral pulses are intact. - Labs CBC & Chem 7: 09/22/20 05:06 09/22/20 05:06 Labs: Abnormal Lab Results - Last 24 Hours (Table) 09/20/20 09/21/20 09/21/20 Range/Units 19:40 15:18 16:36 WBC (3.8-10.6) k/uL RBC (4.30-5.90) m/uL Hgb (13.0-17.5) gm/dL Hct (39.0-53.0) % Neutrophils # (1.3-7.7) k/uL APTT (22.0-30.0) sec Sodium (137-145) mmol/L Potassium (3.5-5.1) mmol/L BUN (9-20) mg/dL Creatinine (0.66-1.25) mg/dL Glucose (74-99) mg/dL POC Glucose (mg/dL) 262 H (75-99) mg/dL Calcium (8.4-10.2) mg/dL Troponin I 7.680 H* (0.000-0.034) ng/mL Total Protein (6.3-8.2) g/dL Albumin (3.5-5.0) g/dL Procalcitonin 1.01 H (0.02-0.09) ng/mL 09/21/20 09/21/20 09/22/20 Range/Units 20:29 20:49 05:06 WBC 11.5 H (3.8-10.6) k/uL RBC 3.38 L (4.30-5.90) m/uL Hgb 10.3 L D (13.0-17.5) gm/dL Hct 31.5 L (39.0-53.0) % Neutrophils # 9.4 H (1.3-7.7) k/uL APTT 47.8 H (22.0-30.0) sec Sodium (137-145) mmol/L Potassium (3.5-5.1) mmol/L BUN (9-20) mg/dL Creatinine (0.66-1.25) mg/dL Glucose (74-99) mg/dL POC Glucose (mg/dL) 160 H (75-99) mg/dL Calcium (8.4-10.2) mg/dL Troponin I (0.000-0.034) ng/mL Total Protein (6.3-8.2) g/dL Albumin (3.5-5.0) g/dL Procalcitonin (0.02-0.09) ng/mL 09/22/20 09/22/20 09/22/20 Range/Units 05:06 05:06 07:08 WBC (3.8-10.6) k/uL RBC (4.30-5.90) m/uL Hgb (13.0-17.5) gm/dL Hct (39.0-53.0) % Neutrophils # (1.3-7.7) k/uL APTT 63.5 H (22.0-30.0) sec Sodium 136 L (137-145) mmol/L Potassium 2.9 L (3.5-5.1) mmol/L BUN 69 H (9-20) mg/dL Creatinine 4.44 H (0.66-1.25) mg/dL Glucose 191 H (74-99) mg/dL POC Glucose (mg/dL) 238 H (75-99) mg/dL Calcium 7.0 L (8.4-10.2) mg/dL Troponin I (0.000-0.034) ng/mL Total Protein 4.7 L (6.3-8.2) g/dL Albumin 2.7 L (3.5-5.0) g/dL Procalcitonin (0.02-0.09) ng/mL Microbiology - Last 24 Hours (Table) 09/20/20 16:07 Blood Culture - Preliminary Blood No Growth after 24 hours 09/20/20 16:07 Blood Culture - Preliminary Blood No Growth after 24 hours Assessment and Plan Assessment: Impression: Acute shock with hypovolemia and hypotension, suspect hypovolemic shock Acute anion gap metabolic acidosis and lactic acidosis with acute kidney injury, secondary to hypovolemia , and exacerbated by metformin. Possible septic shock, however sure seems to be very unclear since the patient had no symptoms , and pro-calcitonin level is relatively unremarkable. Cultures have remained negative. Type 2 diabetes. History of ischemic cardiomyopathy and history of CABG, ejection fraction is 45%. Acute kidney injury secondary to above. Improving. Chronic atrial fibrillation. Benign essential hypertension. History of CABG back in July 2019. Recommendation: Continue IV fluids. No diuretics. Stop sodium bicarb Continue empiric antibiotics. However will stop vancomycin. Avoid nephrotoxic agents. Continue GI and DVT prophylaxis. Continue to hold metformin and blood pressure medications. Close monitoring of electrolytes and anion gap metabolic acidosis. Echocardiogram report was reviewed Blood cultures remain negative so far There is no clear-cut evidence of infection based on his presentation. We will continue to follow. Time with Patient: Less than 30
--- NOTE | 2020-09-22 13:47 | PN ---
PROGRESS NOTE Patient is seen for followup for acute kidney injury. Patient's renal function has been improving. Serum creatinine down to 4.4 from 5.3. Previous creatinine was 1.26 on 08/22/2020. PHYSICAL EXAMINATION: On examination today, patient is awake, comfortable. He is not in any acute distress. Blood pressure was 92/73, heart rate 82 per minute, he is afebrile. Examination of the heart S1, S2. Examination of the lungs, bilateral breath sounds are heard. Abdomen is soft, nontender. Examination of lower extremities shows no significant edema. CARDIAC NURSE PRACTITIONER exam shows patient moving all 4 extremities. He is awake and following commands. LAB: Show sodium of 136, potassium 2.9, chloride 99, BUN 69 serum creatinine 4.4, hemoglobin 10.3 g/dL. ASSESSMENT: 1. Acute kidney injury, nonoliguric, currently improving. Etiology hypovolemia and hypotension. 2. Metabolic acidosis secondary to acute kidney injury and lactic acidosis, currently improved. 3. Type 2 diabetes. 4. Cardiomyopathy, ejection fraction is 45%. 5. Coronary artery disease with ischemic cardiomyopathy, status post coronary artery bypass surgery. 6. Chronic atrial fibrillation. 7. Hypokalemia, currently being replaced. PLAN: Continue off metformin. Continue IV fluids repeat labs in a.m. Agree with discontinuation of bicarb drip. Continue with saline for now. MMODL / IJN: [id number] /
[2020-09-22] MEDS: HEPARIN SOD,PORK IN 0.45% NACL 25,000 UNIT in 0.45% NACL 1 250ML.BAG IV SCH (14:41)
[2020-09-22 16:56] LABS: Glucose,Whole Blood 286 mg/dL (75-99)
--- NOTE | 2020-09-22 18:43 | P.PN ---
Subjective Progress Note Date: 09/22/20 Principal diagnosis: Hypovolemic shock Profound metabolic acidosis secondary to metformin Acute renal injury 09/22/2020, patient is seen and evaluated in room with nursing staff at bedside; remains in the ICU. Patient responded well mostly to fluids, bicarb, and history of functioning is gradually improving. Remains off metformin. His pro-calcitonin level is only 1. Chest x-ray continues to show no evidence of infiltrate. BUN is improving creatinine is down to 4.44, improving. Potassium is low at 2.9 being corrected as per protocol. Echocardiogram showed evidence of LV dysfunction with ejection fraction of 45%. His acidosis did correct nicely and I'm stopping his bicarb today. Remains on IV fluid of 0.9 normal saline at 75 mL per hour. Patient received significant amount of fluid boluses upon his initial p resentation because it was felt that the patient had mostly hypovolemic shock. Patient denies any shortness of breath cough or wheezing. He is not requiring any pressors. And I plan to keep him in the ICU for another day. Objective - Vital Signs Vital signs: Vital Signs Temp 98.2 F 09/22/20 12:00 Pulse 89 09/22/20 15:00 Resp 17 09/22/20 11:30 BP 85/64 09/22/20 15:00 Pulse Ox 97 09/22/20 15:00 Intake & Output 09/21/20 09/22/20 09/22/20 18:59 06:59 18:59 Intake Total 3420.763 1200 1674.147 Output Total 896 2105 1805 Balance 2524.763 -905 -130.853 Weight 78.1 kg 84.4 kg Intake: IV 2190 1200 1000 Dextrose 5% in Water 1, 800 1200 1000 000 ml @ 100 mls/hr IV . [id number] GABBY with Sodium Bicarb (1 Meq/ml) 150 ml Rx#:[id number] Sodium Chloride 0.9% 1, 390 000 ml @ 130 mls/hr IV . Q7H42M GABBY Rx#:[id number] Sodium Chloride 0.9% 1, 1000 000 ml @ 999 mls/hr IV . Q1H1M ONE Rx#:[id number] Intake, IV Titration 1230.763 524.147 Amount Heparin Sod,Pork in 0.45% 224.147 NaCl 25,000 unit In 0.45 % NaCl 1 250ml.bag @ 12 UNITS/KG/HR 9.372 mls/hr IV .Q24H [facility] Rx#: [id number] Norepinephrine 4 mg In 100.763 Sodium Chloride 0.9% 250 ml @ 0.05 MCG/KG/MIN 14. 603 mls/hr IV .[id number] ONE Rx#:[id number] Piperacillin-Tazobactam 3 100 .375 gm In Sodium Chloride 0.9% 100 ml @ 25 mls/hr IVPB Q12HR [facility] Rx #:[id number] Potassium Chloride 20 meq 200 In Water For Injection 1 100ml.bag @ 50 mls/hr IVPB Q2H [facility] Rx#: [id number] Sodium Chloride 0.9% 1, 130 000 ml @ 130 mls/hr IV . Q7H42M [facility] Rx#:[id number] Sodium Chloride 0.9% 1, 1000 000 ml @ 999 mls/hr IV . Q1H1M ONE Rx#:[id number] Oral 150 Output: Urine 895 2105 1805 Stool 1 Other: Voiding Method Indwelling Catheter Indwelling Catheter Indwelling Catheter - Exam GENERAL EXAM: Pleasant 64-year-old gentleman, alert, on room air. HEAD: Normocephalic. Atraumatic. EYES: Normal reaction of pupils, equal size. NOSE: Clear with pink turbinates. THROAT: No erythema or exudates. NECK: No masses, no JVD. Right IJ triple-lumen catheter is noted. CHEST: No chest wall deformity. LUNGS: Equal air entry with no crackles, wheeze, rhonchi or dullness. CVS: S1 and S2 normal with no audible murmur, regular rhythm. ABDOMEN: No hepatosplenomegaly, normal bowel sounds, no guarding or rigidity. SPINE: No scoliosis or deformity SKIN: No rashes - Labs CBC & Chem 7: 09/22/20 05:06 09/22/20 05:06 Labs: Abnormal Lab Results - Last 24 Hours (Table) 09/21/20 09/21/20 09/22/20 Range/Units 20:29 20:49 05:06 WBC 11.5 H (3.8-10.6) k/uL RBC 3.38 L (4.30-5.90) m/uL Hgb 10.3 L D (13.0-17.5) gm/dL Hct 31.5 L (39.0-53.0) % Neutrophils # 9.4 H (1.3-7.7) k/uL APTT 47.8 H (22.0-30.0) sec Sodium (137-145) mmol/L Potassium (3.5-5.1) mmol/L BUN (9-20) mg/dL Creatinine (0.66-1.25) mg/dL Glucose (74-99) mg/dL POC Glucose (mg/dL) 160 H (75-99) mg/dL Calcium (8.4-10.2) mg/dL Total Protein (6.3-8.2) g/dL Albumin (3.5-5.0) g/dL 09/22/20 09/22/20 09/22/20 Range/Units 05:06 05:06 07:08 WBC (3.8-10.6) k/uL RBC (4.30-5.90) m/uL Hgb (13.0-17.5) gm/dL Hct (39.0-53.0) % Neutrophils # (1.3-7.7) k/uL APTT 63.5 H (22.0-30.0) sec Sodium 136 L (137-145) mmol/L Potassium 2.9 L (3.5-5.1) mmol/L BUN 69 H (9-20) mg/dL Creatinine 4.44 H (0.66-1.25) mg/dL Glucose 191 H (74-99) mg/dL POC Glucose (mg/dL) 238 H (75-99) mg/dL Calcium 7.0 L (8.4-10.2) mg/dL Total Protein 4.7 L (6.3-8.2) g/dL Albumin 2.7 L (3.5-5.0) g/dL 09/22/20 Range/Units 16:54 WBC (3.8-10.6) k/uL RBC (4.30-5.90) m/uL Hgb (13.0-17.5) gm/dL Hct (39.0-53.0) % Neutrophils # (1.3-7.7) k/uL APTT (22.0-30.0) sec Sodium (137-145) mmol/L Potassium (3.5-5.1) mmol/L BUN (9-20) mg/dL Creatinine (0.66-1.25) mg/dL Glucose (74-99) mg/dL POC Glucose (mg/dL) 286 H (75-99) mg/dL Calcium (8.4-10.2) mg/dL Total Protein (6.3-8.2) g/dL Albumin (3.5-5.0) g/dL Microbiology - Last 24 Hours (Table) 09/20/20 16:07 Blood Culture - Preliminary Blood No Growth after 24 hours 09/20/20 16:07 Blood Culture - Preliminary Blood No Growth after 24 hours Assessment and Plan Assessment: Acute shock with hypovolemia and hypotension, suspect hypovolemic shock; patient remains on IV fluids; continue to hold off on diuretics Acute anion gap metabolic acidosis and lactic acidosis with acute kidney injury, secondary to hypovolemia , and exacerbated by metformin; fine arts packer service is following and recommending to stop bicarbonate infusion. Possible septic shock, however sure seems to be very unclear since the patient had no symptoms , and pro-calcitonin level is relatively unremarkable. Cultures have remained negative; patient remains on empiric antibiotics; vancomycin is discontinued. Type 2 diabetes. History of ischemic cardiomyopathy and history of CABG, ejection fraction is 45%. Acute kidney injury secondary to above. Improving. Chronic atrial fibrillation. Benign essential hypertension. History of CABG back in July 2019.
--- NOTE | 2020-09-22 19:36 | PN ---
PROGRESS NOTE DATE OF SERVICE: 09/22/2020. HISTORY: Mr. Austin is doing well. He is in sinus rhythm. His creatinine has shown modest improvement. LV function is fairly decent at 40-45 percent. Troponin elevation suggests myocardial damage, but this is probably secondary to oxygen mismatch and acidosis. I am recommending that we hydrate him cautiously, supplement potassium and continue current therapy. PHYSICAL EXAM: Vitals are stable. No JVD. S1-S2 heard normally. Short systolic murmur noted. Lungs reveal improved air entry. Abdomen is soft. Lower extremity with diminished pulses. Central system is normal. MMODL / IJN: [id number] /
[2020-09-22 20:38] LABS: Glucose,Whole Blood 121 mg/dL (75-99)
[2020-09-22] MEDS: INSULIN DETEMIR (LEVEMIR) 100 UNIT/ML SYR SQ SCH (20:53)
[2020-09-23] MEDS: oxyCODONE ER 80 MG TAB.ER.12H PO SCH ×2 (03:51→15:12)
[2020-09-23 05:04] LABS: Basophils % (A) 0 %; Eosinophils # (A) 0.2 k/uL (0-0.7); Eosinophils % (A) 1 %; HCT 29.6 % (39.0-53.0); HGB 10.2 gm/dL (13.0-17.5); Lymphocytes # (A) 0.8 k/uL (1.0-4.8); Lymphocytes % (A) 6 %; MCH 32.1 pg (25.0-35.0); MCHC 34.5 g/dL (31.0-37.0); MCV 93.1 fL (80.0-100.0); Mean Platelet Volume 8.4; Monocytes % (A) 8 %; Neutrophils # (A) 11.1 k/uL (1.3-7.7); Neutrophils % (A) 84 %; Platelet Count 181 k/uL (150-450); RBC 3.18 m/uL (4.30-5.90); RDW 13.8 % (11.5-15.5); WBC 13.1 k/uL (3.8-10.6)
[2020-09-23 05:17] LABS: Albumin 2.9 g/dL (3.5-5.0); Calcium 7.8 mg/dL (8.4-10.2); Magnesium 1.5 mg/dL (1.6-2.3); Potassium 3.3 mmol/L (3.5-5.1); Total Bilirubin 0.3 mg/dL (0.2-1.3)
[2020-09-23] MEDS ORDERED: Magnesium Replacement Protocol 1 EACH MISC MISCELLANE PRN (06:13)
[2020-09-23] MEDS: POTASSIUM CHLORIDE 20 MEQ in WATER FOR INJECTION 1 100ML.BAG IVPB SCH ×2 (06:19→08:38)
[2020-09-23] MEDS: MAGNESIUM SULFATE-D5W PMX 1 GM in DEXTROSE/WATER 1 100ML.BAG IVPB SCH ×2 (06:21→08:42)
[2020-09-23 06:30] LABS: Glucose,Whole Blood 188 mg/dL (75-99)
[2020-09-23] MEDS: INSULIN ASPART (NovoLOG) 100 UNIT/ML VIAL SQ SCH ×7 (06:56→21:29)
[2020-09-23] MEDS: carvediloL 6.25 MG TAB PO SCH ×2 (06:57→15:13)
[2020-09-23] MEDS: PREGABALIN 75 MG CAP PO SCH ×2 (08:43→20:46)
[2020-09-23] MEDS: DULoxetine HCL 60 MG CAPSULE.DR PO SCH ×2 (08:44→20:46)
[2020-09-23] MEDS: ATORVASTATIN 40 MG TAB PO SCH (08:44)
[2020-09-23] MEDS: PIPERACILLIN-TAZOBACTAM 3.375 GM in SODIUM CHLORIDE 0.9% 100 ML IVPB SCH (09:00)
--- NOTE | 2020-09-23 11:41 | PN ---
PROGRESS NOTE Mr. Austin is in sinus rhythm, had some ventricular ectopy yesterday but doing well. No chest pain or shortness of breath. Creatinine has improved. He feels well and vital signs stable. I am recommending that we switch him from IV to subcu heparin, discontinue Elliott, increase activity and move him to the telemetry unit. EXAMINATION: Vitals are stable. JVD 1 cm. No carotid bruit. S1-S2 heard normally, short systolic murmur noted. Lungs revealed decent air entry. Abdomen is soft. Lower extremities reveal diminished pulses. Central nervous system is normal. PLAN: Continue current medications increase activity. Continue hydration. MMODL / IJN: [id number] /
[2020-09-23 11:51] LABS: Glucose,Whole Blood 63 mg/dL (75-99)
[2020-09-23] MEDS: HEPARIN SODIUM,PORCINE/PF 5,000 UNIT/0.5 ML SYRINGE SQ SCH ×3 (11:55→23:41)
[2020-09-23] MEDS: SODIUM CHLORIDE 0.9% 1,000 ML IV SCH ×2 (11:58→23:42)
[2020-09-23 12:05] LABS: Glucose,Whole Blood 82 mg/dL (75-99)
--- NOTE | 2020-09-23 12:07 | PN ---
PROGRESS NOTE Patient is seen for followup for acute kidney injury. Renal function continues to improve. Patient remains hypokalemic and has been receiving supplementation. There is no ongoing diarrhea, nausea or vomiting. Patient is maintained on IV fluids. Creatinine is improved to 3.1 from 5.3 on initial admission. EXAMINATION: Today patient is comfortable, awake, not in any acute distress. Blood pressure 114/82, heart rate 74 per minute. He is afebrile. Examination of the heart S1, S2. Examination of the lungs, bilateral breath sounds are heard. Abdomen is soft, nontender. Examination of lower extremities shows no evidence of edema. FIELD ASSISTANT exam grossly intact. MMODL / IJN: [id number] /
--- NOTE | 2020-09-23 12:52 | P.PN ---
Subjective Progress Note Date: 09/23/20 Principal diagnosis: Hypovolemic shock with profound metabolic acidosis secondary to metformin. And acute kidney injury. This is a 65-year-old white male with history of multiple medical problems including coronary artery disease and previous CABG. History of ischemic cardiomyopathy. Patient had CABG back in July 2019. History of chronic atrial fibrillation. History of multiple stents placed previously before his CABG. Patient presented to the ER yesterday with 2 days history of nausea and vomiting. But he had no shortness of breath, no cough, no fever, no chills, no hemoptysis, no chest pain, patient had no nausea no vomiting no abdominal pain, and he had no symptoms of urinary tract infection. No dysuria and no frequency no urgency. Upon presentation to the ER, patient was noted to be hypotensive he was also noted to have leukocytosis with WBC count as high as 20.0. Patient was also noted to have severe anion gap metabolic acidosis with anion gap of 20. Acute kidney injury with a BUN of 68 creatinine of 5.34. Although his creatinine back in July of 2020 was just over 1. Lactic acid was as high as 6.5. Troponin was significantly elevated at 14.3. And bicarb was only 17. Later went down to 9. Patient required fluid boluses at least 3 L of fluids were given in the ER, and another liter was given upon arrival to the ICU. Patient required a central line placement in the ER, and started on norepinephrine. I saw the patient in the ICU, he is on 2 L nasal cannula. He is on IV fluid in the form of 0.9 normal saline at 130 per hour. Norepinephrine at 0.04 mcg/kg/m. Patient is relatively asymptomatic, feels significantly better compared to how he felt upon his initial presentation, and he does not seem to be in any distress. Again no active symptoms to suggest ongoing infection however his presentation was mostly a presentation of sepsis and hypovolemia although the possibility of cardiogenic shock is not entirely ruled out but felt to be less likely. Patient does have history of ischemic cardiomyopathy and his ejection fraction is normally in the range of 40%. Repeat echocardiogram is pending Reevaluated today on 09/22/2020, patient remains in the ICU, he is definitely improving. Patient responded well mostly to fluids, bicarb, and history of functioning is gradually improving. Remains off metformin. His pro-calcitonin level is only 1. Chest x-ray continues to show no evidence of infiltrate. BUN is improving creatinine is down to 4.44, improving. Potassium is low at 2.9 being corrected as per protocol. Echocardiogram showed evidence of LV dysfunction with ejection fraction of 45%. His acidosis did correct nicely and I'm stopping his bicarb today. Remains on IV fluid of 0.9 normal saline at 75 mL per hour. Patient received significant amount of fluid boluses upon his initial presentation because it was felt that the patient had mostly hypovolemic shock, although the possibility of septic shock was entertained, but felt to be less likely at this point there was no source of infection and cultures have remained negative. Patient denies any shortness of breath cough or wheezing. He is not requiring any pressors. And I plan to keep him in the ICU for another day. Reevaluated today on 09/23/2020, patient remains in the ICU, remains on IV fluid in the form of 0.9 normal saline at 75 mL per hour. Continues to demonstrate steady improvement of his renal status, his urine output is picking up nicely. His creatinine is down to 3.17. Remains empirically on Zosyn. Continues to have a right IJ central line in place. Patient is complaining of pain mostly in the legs, denies any shortness of breath cough or wheezing. CBC today is relatively normal electrolytes are normal BUN is 57 creatinine 3.17, steadily improving from 5.34 on admission. Again his echocardiogram did show evidence of LV dysfunction with ejection fraction of 45%. Patient remains off bicarb drip. His presentation was mostly a presentation of hypovolemic shock and I believe being on metformin did not help it was most likely a major contributing factor to his initial presentation. Objective - Vital Signs Vital signs: Vital Signs Temp 98 F 09/23/20 08:00 Pulse 72 09/23/20 11:00 Resp 12 09/23/20 11:00 BP 114/82 09/23/20 11:00 Pulse Ox 92 L 09/23/20 11:00 Intake & Output 09/22/20 09/23/20 09/23/20 18:59 06:59 18:59 Intake Total 7781.870 6279 550 Output Total 2330 2125 1075 Balance -455.853 -1100 -525 Weight 83.4 kg Intake: IV 1200 100 Dextrose 5% in Water 1, 1200 100 000 ml @ 100 mls/hr IV . [id number] GABBY with Sodium Bicarb (1 Meq/ml) 150 ml Rx#:[id number] Intake, IV Titration 524.147 925 550 Amount Heparin Sod,Pork in 0.45% 224.147 NaCl 25,000 unit In 0.45 % NaCl 1 250ml.bag @ 12 UNITS/KG/HR 9.372 mls/hr IV .Q24H [facility] Rx#: [id number] Magnesium Sulfate-D5w Pmx 200 1 gm In Dextrose/Water 1 100ml.bag @ 100 mls/hr IVPB Q1H [facility] Rx#: [id number] Piperacillin-Tazobactam 3 100 100 .375 gm In Sodium Chloride 0.9% 100 ml @ 25 mls/hr IVPB Q12HR [facility] Rx #:[id number] Potassium Chloride 20 meq 200 In Water For Injection 1 100ml.bag @ 50 mls/hr IVPB Q2H [facility] Rx#: [id number] Potassium Chloride 20 meq 200 In Water For Injection 1 100ml.bag @ 50 mls/hr IVPB Q2H [facility] Rx#: [id number] Sodium Chloride 0.9% 1, 825 150 000 ml @ 75 mls/hr IV . [id number] [facility] Rx#:[id number] Oral 150 Output: Urine 2330 2125 1075 Other: Voiding Method Indwelling Catheter Indwelling Catheter Indwelling Catheter - Exam GENERAL EXAM: Revealed a 65-year-old in no distress. HEAD: Normocephalic. Atraumatic. EENT: PERRLA, EOMI, anicteric, no neck masses, moist mucous membranes CHEST: No chest wall deformity. LUNGS: Equal air entry with no crackles, wheeze, no rhonchi. CVS: S1 and S2 normal with no audible murmur, regular rhythm. ABDOMEN: No hepatosplenomegaly, normal bowel sounds, no guarding or rigidity. SPINE: No scoliosis or deformity SKIN: No rashes CENTRAL NERVOUS SYSTEM: No focal deficits, tone is normal in all 4 extremities. EXTREMITIES: There is no peripheral edema. No clubbing, no cyanosis. Peripheral pulses are intact. - Labs CBC & Chem 7: 09/23/20 03:57 09/23/20 03:57 Labs: Abnormal Lab Results - Last 24 Hours (Table) 06/09/22/20 09/22/20 Range/Units 16:54 17:20 20:37 WBC (3.8-10.6) k/uL RBC (4.30-5.90) m/uL Hgb (13.0-17.5) gm/dL Hct (39.0-53.0) % Neutrophils # (1.3-7.7) k/uL Lymphocytes # (1.0-4.8) k/uL APTT (22.0-30.0) sec Sodium (137-145) mmol/L Potassium 3.4 L (3.5-5.1) mmol/L Chloride (98-107) mmol/L BUN (9-20) mg/dL Creatinine (0.66-1.25) mg/dL Glucose (74-99) mg/dL POC Glucose (mg/dL) 286 H 121 H (75-99) mg/dL Calcium (8.4-10.2) mg/dL Magnesium (1.6-2.3) mg/dL Total Protein (6.3-8.2) g/dL Albumin (3.5-5.0) g/dL 09/23/20 09/23/20 09/23/20 Range/Units 03:57 03:57 03:57 WBC 13.1 H (3.8-10.6) k/uL RBC 3.18 L (4.30-5.90) m/uL Hgb 10.2 L (13.0-17.5) gm/dL Hct 29.6 L (39.0-53.0) % Neutrophils # 11.1 H (1.3-7.7) k/uL Lymphocytes # 0.8 L (1.0-4.8) k/uL APTT 45.7 H (22.0-30.0) sec Sodium 135 L (137-145) mmol/L Potassium 3.3 L (3.5-5.1) mmol/L Chloride 97 L (98-107) mmol/L BUN 57 H (9-20) mg/dL Creatinine 3.17 H (0.66-1.25) mg/dL Glucose 213 H (74-99) mg/dL POC Glucose (mg/dL) (75-99) mg/dL Calcium 7.8 L (8.4-10.2) mg/dL Magnesium 1.5 L (1.6-2.3) mg/dL Total Protein 5.0 L (6.3-8.2) g/dL Albumin 2.9 L (3.5-5.0) g/dL 09/23/20 09/23/20 Range/Units 06:29 11:49 WBC (3.8-10.6) k/uL RBC (4.30-5.90) m/uL Hgb (13.0-17.5) gm/dL Hct (39.0-53.0) % Neutrophils # (1.3-7.7) k/uL Lymphocytes # (1.0-4.8) k/uL APTT (22.0-30.0) sec Sodium (137-145) mmol/L Potassium (3.5-5.1) mmol/L Chloride (98-107) mmol/L BUN (9-20) mg/dL Creatinine (0.66-1.25) mg/dL Glucose (74-99) mg/dL POC Glucose (mg/dL) 188 H 63 L (75-99) mg/dL Calcium (8.4-10.2) mg/dL Magnesium (1.6-2.3) mg/dL Total Protein (6.3-8.2) g/dL Albumin (3.5-5.0) g/dL Microbiology - Last 24 Hours (Table) 09/20/20 16:07 Blood Culture - Preliminary Blood No Growth after 48 hours 09/20/20 16:07 Blood Culture - Preliminary Blood No Growth after 48 hours Assessment and Plan Assessment: Impression: Acute shock with hypovolemia and hypotension, suspect hypovolemic shock Acute anion gap metabolic acidosis and lactic acidosis with acute kidney injury, secondary to hypovolemia , and exacerbated by metformin. Septic shock was basically ruled out. Type 2 diabetes. History of ischemic cardiomyopathy and history of CABG, ejection fraction is 45%. Acute kidney injury secondary to above. Improving. Chronic atrial fibrillation. Benign essential hypertension. History of CABG back in July 2019. Recommendation: Continue IV fluids. Discontinue all antibiotics. Continue to avoid any nephrotoxic agents. And continue to monitor renal profile daily. Continue GI and DVT prophylaxis. Strongly recommend against placing the patient back on metformin. Blood cultures remain negative so far There is no clear-cut evidence of infection based on his presentation. Septic shock was basically ruled out. Will recommend transferring the patient out of the ICU to a regular medical floor. We will continue to follow. Time with Patient: Less than 30
--- NOTE | 2020-09-23 13:06 | PN ---
PROGRESS NOTE ADDENDUM: PORCELAIN ENAMELER exam grossly intact. LAB: Show sodium 135, potassium 3.3, chloride 97, BUN 28, serum creatinine 3.17. ASSESSMENT: 1. Acute kidney injury prerenal currently improving, continue with IV fluids. 2. Metabolic acidosis associated with acute kidney injury and lactic acidosis, now resolved. 3. Lactic acidosis, most likely secondary to metformin. 4. Type 2 diabetes. 5. Cardiomyopathy, EF 45%. 6. Coronary artery disease status post coronary artery bypass surgery. 7. Chronic atrial fibrillation. 8. Hypokalemia, currently being replaced. PLAN: Continue IV fluids. Encourage increased oral intake. Replace potassium. MMODL / IJN: [id number] /
[2020-09-23 16:32] LABS: Glucose,Whole Blood 276 mg/dL (75-99)
--- NOTE | 2020-09-23 18:21 | P.PN ---
Subjective Progress Note Date: 09/23/20 Principal diagnosis: Hypovolemic shock Profound metabolic acidosis secondary to metformin Acute renal injury 09/22/2020, patient is seen and evaluated in room with nursing staff at bedside; remains in the ICU. Patient responded well mostly to fluids, bicarb, and history of functioning is gradually improving. Remains off metformin. His pro-calcitonin level is only 1. Chest x-ray continues to show no evidence of infiltrate. BUN is improving creatinine is down to 4.44, improving. Potassium is low at 2.9 being corrected as per protocol. Echocardiogram showed evidence of LV dysfunction with ejection fraction of 45%. His acidosis did correct nicely and I'm stopping his bicarb today. Remains on IV fluid of 0.9 normal saline at 75 mL per hour. Patient received significant amount of fluid boluses upon his initial p resentation because it was felt that the patient had mostly hypovolemic shock. Patient denies any shortness of breath cough or wheezing. He is not requiring any pressors. And I plan to keep him in the ICU for another day. 09/23/2020 patient seen and evaluated in the ICU; about to be transferred to [facility], remains on IV fluid in the form of 0.9 normal saline at 75 mL per hour. Continues to demonstrate steady improvement of his renal status, his urine output is picking up nicely. Lab review reveals creatinine is down to 3.17. CBC today is relatively normal electrolytes are normal BUN is 57 creatinine 3.17, steadily improving from 5.34 on admission; echocardiogram did show evidence of LV dysfunction with ejection fraction of 45%. Remains empirically on Zosyn. Patient remains off bicarb drip. His presentation was mostly a presentation of hypovolemic shock and I believe being on metformin did not help it was most likely a major contributing factor to his initial presentation. Patient admitted to ICU with hypovolemic versus septic shock; remains on IV fl uids; IV antibiotics are discontinued upon sort operations supervisor recommendation; plan is to continue monitor renal function closely and avoid any nephrotoxic agents; patient is recommended against resuming metformin Objective - Vital Signs Vital signs: Vital Signs Temp 98.3 F 09/23/20 04:00 Pulse 91 09/23/20 07:00 Resp 17 09/23/20 07:00 BP 105/66 09/23/20 07:00 Pulse Ox 97 09/23/20 07:00 Intake & Output 09/22/20 09/23/20 09/23/20 18:59 06:59 18:59 Intake Total 9199.229 4773 175 Output Total 2330 2125 350 Balance -455.853 -1100 -175 Weight 83.4 kg Intake: IV 1200 100 Dextrose 5% in Water 1, 1200 100 000 ml @ 100 mls/hr IV . [id number] [facility] with Sodium Bicarb (1 Meq/ml) 150 ml Rx#:[id number] Intake, IV Titration 524.147 925 175 Amount Heparin Sod,Pork in 0.45% 224.147 NaCl 25,000 unit In 0.45 % NaCl 1 250ml.bag @ 12 UNITS/KG/HR 9.372 mls/hr IV .Q24H [facility] Rx#: [id number] Magnesium Sulfate-D5w Pmx 100 1 gm In Dextrose/Water 1 100ml.bag @ 100 mls/hr IVPB Q1H [facility] Rx#: [id number] Piperacillin-Tazobactam 3 100 100 .375 gm In Sodium Chloride 0.9% 100 ml @ 25 mls/hr IVPB Q12HR [facility] Rx #:[id number] Potassium Chloride 20 meq 200 In Water For Injection 1 100ml.bag @ 50 mls/hr IVPB Q2H [facility] Rx#: [id number] Sodium Chloride 0.9% 1, 825 75 000 ml @ 75 mls/hr IV . [id number] [facility] Rx#:[id number] Oral 150 Output: Urine 2330 2125 350 Other: Voiding Method Indwelling Catheter Indwelling Catheter - Exam GENERAL EXAM: Pleasant 64-year-old gentleman, alert, on room air. HEAD: Normocephalic. Atraumatic. EYES: Normal reaction of pupils, equal size. NOSE: Clear with pink turbinates. THROAT: No erythema or exudates. NECK: No masses, no JVD. Right IJ triple-lumen catheter is noted. CHEST: No chest wall deformity. LUNGS: Equal air entry with no crackles, wheeze, rhonchi or dullness. CVS: S1 and S2 normal with no audible murmur, regular rhythm. ABDOMEN: No hepatosplenomegaly, normal bowel sounds, no guarding or rigidity. SPINE: No scoliosis or deformity SKIN: No rashes - Labs CBC & Chem 7: 09/23/20 03:57 09/23/20 03:57 Labs: Abnormal Lab Results - Last 24 Hours (Table) 09/22/20 09/22/20 09/22/20 Range/Units 16:54 17:20 20:37 WBC (3.8-10.6) k/uL RBC (4.30-5.90) m/uL Hgb (13.0-17.5) gm/dL Hct (39.0-53.0) % Neutrophils # (1.3-7.7) k/uL Lymphocytes # (1.0-4.8) k/uL APTT (22.0-30.0) sec Sodium (137-145) mmol/L Potassium 3.4 L (3.5-5.1) mmol/L Chloride (98-107) mmol/L BUN (9-20) mg/dL Creatinine (0.66-1.25) mg/dL Glucose (74-99) mg/dL POC Glucose (mg/dL) 286 H 121 H (75-99) mg/dL Calcium (8.4-10.2) mg/dL Magnesium (1.6-2.3) mg/dL Total Protein (6.3-8.2) g/dL Albumin (3.5-5.0) g/dL 09/23/20 09/23/20 09/23/20 Range/Units 03:57 03:57 03:57 WBC 13.1 H (3.8-10.6) k/uL RBC 3.18 L (4.30-5.90) m/uL Hgb 10.2 L (13.0-17.5) gm/dL Hct 29.6 L (39.0-53.0) % Neutrophils # 11.1 H (1.3-7.7) k/uL Lymphocytes # 0.8 L (1.0-4.8) k/uL APTT 45.7 H (22.0-30.0) sec Sodium 135 L (137-145) mmol/L Potassium 3.3 L (3.5-5.1) mmol/L Chloride 97 L (98-107) mmol/L BUN 57 H (9-20) mg/dL Creatinine 3.17 H (0.66-1.25) mg/dL Glucose 213 H (74-99) mg/dL POC Glucose (mg/dL) (75-99) mg/dL Calcium 7.8 L (8.4-10.2) mg/dL Magnesium 1.5 L (1.6-2.3) mg/dL Total Protein 5.0 L (6.3-8.2) g/dL Albumin 2.9 L (3.5-5.0) g/dL 09/23/20 Range/Units 06:29 WBC (3.8-10.6) k/uL RBC (4.30-5.90) m/uL Hgb (13.0-17.5) gm/dL Hct (39.0-53.0) % Neutrophils # (1.3-7.7) k/uL Lymphocytes # (1.0-4.8) k/uL APTT (22.0-30.0) sec Sodium (137-145) mmol/L Potassium (3.5-5.1) mmol/L Chloride (98-107) mmol/L BUN (9-20) mg/dL Creatinine (0.66-1.25) mg/dL Glucose (74-99) mg/dL POC Glucose (mg/dL) 188 H (75-99) mg/dL Calcium (8.4-10.2) mg/dL Magnesium (1.6-2.3) mg/dL Total Protein (6.3-8.2) g/dL Albumin (3.5-5.0) g/dL Microbiology - Last 24 Hours (Table) 09/20/20 16:07 Blood Culture - Preliminary Blood No Growth after 48 hours 09/20/20 16:07 Blood Culture - Preliminary Blood No Growth after 48 hours Assessment and Plan Assessment: Acute shock with hypovolemia and hypotension, suspect hypovolemic shock; patient remains on IV fluids; continue to hold off on diuretics Acute anion gap metabolic acidosis and lactic acidosis with acute kidney injury, secondary to hypovolemia , and exacerbated by metformin; sort operations supervisor service is following and recommending to stop bicarbonate infusion. Possible septic shock, however sure seems to be very unclear since the patient had no symptoms , and pro-calcitonin level is relatively unremarkable. Cultures have remained negative; patient remains on empiric antibiotics; vancomycin is discontinued. Type 2 diabetes. History of ischemic cardiomyopathy and history of CABG, ejection fraction is 45%. Acute kidney injury secondary to above. Improving. Chronic atrial fibrillation. Benign essential hypertension. History of CABG back in July 2019.
[2020-09-23 21:22] LABS: Glucose,Whole Blood 116 mg/dL (75-99)
[2020-09-23] MEDS: INSULIN DETEMIR (LEVEMIR) 100 UNIT/ML SYR SQ SCH (21:42)
[2020-09-24] MEDS: oxyCODONE ER 80 MG TAB.ER.12H PO SCH ×2 (05:33→15:42)
[2020-09-24 07:09] LABS: Glucose,Whole Blood 270 mg/dL (75-99)
[2020-09-24] MEDS: INSULIN ASPART (NovoLOG) 100 UNIT/ML VIAL SQ SCH ×4 (07:44→12:20)
[2020-09-24] MEDS: ATORVASTATIN 40 MG TAB PO SCH (07:44)
[2020-09-24] MEDS: DULoxetine HCL 60 MG CAPSULE.DR PO SCH (07:44)
[2020-09-24] MEDS: PREGABALIN 75 MG CAP PO SCH (07:44)
[2020-09-24] MEDS: HEPARIN SODIUM,PORCINE/PF 5,000 UNIT/0.5 ML SYRINGE SQ SCH ×2 (07:44→15:44)
[2020-09-24] MEDS: carvediloL 6.25 MG TAB PO SCH (07:44)
[2020-09-24 07:58] VITALS: RESP 18; TEMP 98.4
[2020-09-24 08:43] LABS: Basophils # (A) 0.03 X 10*3/uL (0.00-0.10); Basophils % (A) 0.2 %; Eosinophils # (A) 0.14 X 10*3/uL (0.04-0.35); Eosinophils % (A) 1.2 %; HCT 26.6 % (39.6-50.0); HGB 8.8 g/dL (13.0-17.0); Lymphocytes % (A) 8.3 %; MCH 30.9 pg (27.0-32.0); MCHC 33.1 g/dL (32.0-37.0); MCV 93.3 fL (80.0-97.0); Mean Platelet Volume 10.6 fL (9.5-12.2); Monocytes # (A) 1.35 X 10*3/uL (0.20-1.00); Monocytes % (A) 11.2 %; Neutrophils % (A) 78.4 %; Platelet Count 189 X 10*3/uL (140-440); RBC 2.85 X 10*6/uL (4.40-5.60); RDW 14.1 % (11.5-14.5); WBC 12.01 X 10*3/uL (4.50-10.00)
[2020-09-24 09:35] LABS: African American GFR (CKD) 35.6 (60.0-200.0); Anion Gap 8.9 mmol/L (4.00-12.00); BUN/Creat Ratio 18.18 Ratio (12.00-20.00); Calcium 7.8 mg/dL (8.7-10.3); Carbon Dioxide 28.1 mmol/L (21.6-31.8); Magnesium 1.4 mg/dL (1.5-2.4); Non-African American GFR(CKD) 30.7 (60.0-200.0); Potassium 3.6 mmol/L (3.5-5.5)
[2020-09-24] MEDS ORDERED: Magnesium Replacement Protocol 1 EACH MISC MISCELLANE PRN (10:10)
[2020-09-24] MEDS: MAGNESIUM SULFATE-D5W PMX 1 GM in DEXTROSE/WATER 1 100ML.BAG IVPB SCH ×3 (10:33→13:46)
[2020-09-24] MEDS: SODIUM CHLORIDE 0.9% 1,000 ML IV SCH (12:02)
[2020-09-24 12:09] LABS: Glucose,Whole Blood 250 mg/dL (75-99)
--- NOTE | 2020-09-24 13:26 | P.PN ---
Subjective Progress Note Date: 09/24/20 Principal diagnosis: Hypovolemic shock with profound metabolic acidosis and acute kidney injury, improved This is a 65-year-old white male with history of multiple medical problems including coronary artery disease and previous CABG. History of ischemic cardiomyopathy. Patient had CABG back in July 2019. History of chronic atrial fibrillation. History of multiple stents placed previously before his CABG. Patient presented to the ER yesterday with 2 days history of nausea and vomiting. But he had no shortness of breath, no cough, no fever, no chills, no hemoptysis, no chest pain, patient had no nausea no vomiting no abdominal pain, and he had no symptoms of urinary tract infection. No dysuria and no frequency no urgency. Upon presentation to the ER, patient was noted to be hypotensive he was also noted to have leukocytosis with WBC count as high as 20.0. Patient was also noted to have severe anion gap metabolic acidosis with anion gap of 20. Acute kidney injury with a BUN of 68 creatinine of 5.34. Although his creatinine back in July of 2020 was just over 1. Lactic acid was as high as 6.5. Troponin was significantly elevated at 14.3. And bicarb was only 17. Later went down to 9. Patient required fluid boluses at least 3 L of fluids were given in the ER, and another liter was given upon arrival to the ICU. Patient required a central line placement in the ER, and started on norepinephrine. I saw the patient in the ICU, he is on 2 L nasal cannula. He is on IV fluid in the form of 0.9 normal saline at 130 per hour. Norepinephrine at 0.04 mcg/kg/m. Patient is relatively asymptomatic, feels significantly better compared to how he felt upon his initial presentation, and he does not seem to be in any distress. Again no active symptoms to suggest ongoing infection however his presentation was mostly a presentation of sepsis and hypovolemia although the possibility of cardiogenic shock is not entirely ruled out but felt to be less likely. Patient does have history of ischemic cardiomyopathy and his ejection fraction is normally in the range of 40%. Repeat echocardiogram is pending Reevaluated today on 09/22/2020, patient remains in the ICU, he is definitely improving. Patient responded well mostly to fluids, bicarb, and history of functioning is gradually improving. Remains off metformin. His pro-calcitonin level is only 1. Chest x-ray continues to show no evidence of infiltrate. BUN is improving creatinine is down to 4.44, improving. Potassium is low at 2.9 being corrected as per protocol. Echocardiogram showed evidence of LV dysfunction with ejection fraction of 45%. His acidosis did correct nicely and I'm stopping his bicarb today. Remains on IV fluid of 0.9 normal saline at 75 mL per hour. Patient received significant amount of fluid boluses upon his initial presentation because it was felt that the patient had mostly hypovolemic shock, although the possibility of septic shock was entertained, but felt to be less likely at this point there was no source of infection and cultures have remained negative. Patient denies any shortness of breath cough or wheezing. He is not requiring any pressors. And I plan to keep him in the ICU for another day. Reevaluated today on 09/23/2020, patient remains in the ICU, remains on IV fluid in the form of 0.9 normal saline at 75 mL per hour. Continues to demonstrate steady improvement of his renal status, his urine output is picking up nicely. His creatinine is down to 3.17. Remains empirically on Zosyn. Continues to have a right IJ central line in place. Patient is complaining of pain mostly in the legs, denies any shortness of breath cough or wheezing. CBC today is relatively normal electrolytes are normal BUN is 57 creatinine 3.17, steadily improving from 5.34 on admission. Again his echocardiogram did show evidence of LV dysfunction with ejection fraction of 45%. Patient remains off bicarb drip. His presentation was mostly a presentation of hypovolemic shock and I believe being on metformin did not help it was most likely a major contributing factor to his initial presentation. On 09/24/2020 patient seen in follow-up on medical surgical floor. He is awake and alert, in no acute distress, he is on room air, with a pulse ox of 93-97%, breathing very comfortably, patient states he ambulated today, tolerated procedure well. He thinks he is being discharged home today, no acute events overnight, lung sounds reveal some minimal crackles at bilateral bases, no cough, no chest pain. Had no fever or chills. Today's labs have been reviewed, his blood cell count is 12.01, hemoglobin is 8.8, electrolytes are within normal limits, his renal profile is improving, his bun is 40, creatinine is 2.2 Objective - Vital Signs Vital signs: Vital Signs Temp 98.4 F 09/24/20 07:57 Pulse 94 09/24/20 07:57 Resp 18 09/24/20 07:57 BP 145/73 09/24/20 07:57 Pulse Ox 93 L 09/24/20 07:57 Intake & Output 09/23/20 09/24/20 09/24/20 18:59 06:59 18:59 Intake Total 550 Output Total 1725 600 300 Balance -1175 -600 -300 Intake: Intake, IV Titration 550 Amount Magnesium Sulfate-D5w Pmx 200 1 gm In Dextrose/Water 1 100ml.bag @ 100 mls/hr IVPB Q1H [facility] Rx#: [id number] Potassium Chloride 20 meq 200 In Water For Injection 1 100ml.bag @ 50 mls/hr IVPB Q2H [facility] Rx#: [id number] Sodium Chloride 0.9% 1, 150 000 ml @ 75 mls/hr IV . [id number] [facility] Rx#:[id number] Output: Urine 1725 600 300 Other: Voiding Method Indwelling Catheter Indwelling Catheter Urinal # Voids 1 1 - Exam GENERAL EXAM: Alert, very pleasant, 65-year-old white male, on room air, with a pulse ox of 93-97%, comfortable in no apparent distress. HEAD: Normocephalic/atraumatic. EYES: Normal reaction of pupils, equal size. Conjunctiva pink, sclera white. NOSE: Clear with pink turbinates. THROAT: No erythema or exudates. NECK: No masses, no JVD, no thyroid enlargement, no adenopathy. CHEST: No chest wall deformity. Symmetrical expansion. Right IJ triple lumen central line LUNGS: Equal air entry with minimal crackles at bilateral bases CVS: Regular rate and rhythm, normal S1 and S2, no gallops, no murmurs, no rubs ABDOMEN: Soft, nontender. No hepatosplenomegaly, normal bowel sounds, no guarding or rigidity. EXTREMITIES: No clubbing, no edema, no cyanosis, 2+ pulses and upper and lower extremities. MUSCULOSKELETAL: Muscle strength and tone normal. SPINE: No scoliosis or deformity SKIN: No rashes CENTRAL NERVOUS SYSTEM: Alert and oriented -3. No focal deficits, tone is normal in all 4 extremities. PSYCHIATRIC: Alert and oriented -3. Appropriate affect. Intact judgment and insight. - Labs CBC & Chem 7: 09/24/20 05:33 09/24/20 05:33 Labs: Abnormal Lab Results - Last 24 Hours (Table) 09/23/20 09/23/20 09/24/20 Range/Units 16:31 21:21 05:33 WBC (4.50-10.00) X 10*3/uL RBC (4.40-5.60) X 10*6/uL Hgb (13.0-17.0) g/dL Hct (39.6-50.0) % Immature Gran # (0.00-0.04) X 10*3/uL Neutrophils # (1.80-7.70) X 10*3/uL Monocytes # (0.20-1.00) X 10*3/uL BUN 40.0 H (9.0-27.0) mg/dL Creatinine 2.2 H (0.6-1.5) mg/dL Est GFR (CKD-EPI)AfAm 35.6 L (60.0-200.0) Est GFR (CKD-EPI)NonAf 30.7 L (60.0-200.0) Glucose 204 H (70-110) mg/dL POC Glucose (mg/dL) 276 H 116 H (75-99) mg/dL Calcium 7.8 L (8.7-10.3) mg/dL Magnesium 1.4 L (1.5-2.4) mg/dL 09/24/20 09/24/20 09/24/20 Range/Units 05:33 07:07 12:08 WBC 12.01 H (4.50-10.00) X 10*3/uL RBC 2.85 L (4.40-5.60) X 10*6/uL Hgb 8.8 L (13.0-17.0) g/dL Hct 26.6 L (39.6-50.0) % Immature Gran # 0.09 H (0.00-0.04) X 10*3/uL Neutrophils # 9.40 H (1.80-7.70) X 10*3/uL Monocytes # 1.35 H (0.20-1.00) X 10*3/uL BUN (9.0-27.0) mg/dL Creatinine (0.6-1.5) mg/dL Est GFR (CKD-EPI)AfAm (60.0-200.0) Est GFR (CKD-EPI)NonAf (60.0-200.0) Glucose (70-110) mg/dL POC Glucose (mg/dL) 270 H 250 H (75-99) mg/dL Calcium (8.7-10.3) mg/dL Magnesium (1.5-2.4) mg/dL Microbiology - Last 24 Hours (Table) 09/20/20 16:07 Blood Culture - Preliminary Blood No Growth after 72 hours 09/20/20 16:07 Blood Culture - Preliminary Blood No Growth after 72 hours Assessment and Plan Plan: Assessment: #1. Acute shock with hypovolemia and hypotension, suspect hypovolemia and dehydration related to nausea and vomiting #2. Acute anion-gap metabolic acidosis and lactic acidosis with acute kidney injury, secondary to dehydration, exacerbated by metformin, resolved #3. Acute septic shock, ruled out #4. Type 2 diabetes mellitus #5. History of ischemic cardiomyopathy and history of CABG and ejection fraction of 45% #6. Acute kidney injury secondary to the above, improving #7. Chronic atrial fibrillation #8. Benign essential hypertension #9. History of CABG in July 2019 Plan: Encourage oral intake Vital signs are stable, blood pressure stable No acute events overnight, no specific complaints Today's labs have been reviewed, renal profile continues to improve Blood cultures have been negative No clear-cut evidence of infection Patient is tolerating ambulation he anticipates being discharged home today Cleared for discharge from pulmonary perspective I performed a history & physical examination of the patient and discussed their management with my nurse practitioner, Florence Mazariegos. I reviewed the nurse practitioner's note and agree with the documented findings and plan of care. Lung sounds are positive for diminished breath sounds. The findings and the impression was discussed with the patient. I attest to the documentation by the nurse practitioner. Time with Patient: Less than 30
--- NOTE | 2020-09-24 13:35 | P.PN ---
Subjective This is a 65-year-old male past medical history type 2 diabetes, hypertension, dyslipidemia, paroxysmal atrial fibrillation, ischemic cardiomyopathy, coronary artery disease with previous PCI of RCA in 2007 and 2014, and CABG x 3 in July 2019. He follows in the office with Dr. Hua. We're being consulted for elevated troponin. Patient was admitted to the hospital with hypovolemic shock. Echocardiogram revealed an EF 40-45%, inferior wall hypokinesis, this was also known to be previously noted on his prior echocardiogram. Patient's troponin elevation most likely related to patient's acidosis, hypoxia and poor perfusion when admitted. Troponin trend 0.29-->14.3-->7.6 09/24/2020: Patient seen and examined at bedside, no acute distress. Denies chest pain, shortness of breath, nausea, vomiting, abdominal pain, lightheadedness, di zziness. Blood pressure 145/73, heart rate 94, afebrile, maintaining oxygen saturations 92% on room air. Telemetry reviewed patient in sinus mechanism heart rate 100. Laboratory data reviewed previous EKG, hemoglobin 8.8, platelets 189, sodium 137, potassium 3.6, BUN 40, serum creatinine 2.2 (yes terday 3.17), magnesium 1.4. Patient currently maintained on atorvastatin 40 mg daily, carvedilol 6.25 mg twice a day, magnesium be replaced. GENERAL: Well-appearing, well-nourished and in no acute distress. NECK: Supple without JVD or thyromegaly. LUNGS: Breath sounds bilateral rales. Respiration equal and unlabored. No wheezes HEART: Regular rate and rhythm without murmurs, rubs or gallops. S1 and S2 heard. EXTREMITIES: Normal range of motion, no edema. No clubbing or cyanosis. Peripheral pulses intact. ASSESSMENT Nausea, vomiting with acute hypovolemia shock Metabolic acidosis Elevated troponin- not indicative of acute coronary syndrome. Possibly related to patient's significant acidosis Acute kidney injury Ischemic cardiomyopathy EF 40-45% Paroxysmal atrial fibrillatoin- on Eliquis Coronary artery disease status post bypass surgery and PCI. Type 2 diabetes History of hypertension Hyperlipidemia PLAN -Patient's spironolactone and lisinopril-hctz on hold -Will start hydralazine 25mg BID -Recommend restarted patient's anticoagulation Eliquis 5mg BID -Further recommendations pending clinical course. Nurse Practitioner note has been reviewed, I agree with a documented findings and plan of care. Patient was seen and examined. Objective - Vital Signs Vital signs: Vital Signs Temp 98.4 F 09/24/20 07:57 Pulse 94 09/24/20 07:57 Resp 18 09/24/20 07:57 BP 145/73 09/24/20 07:57 Pulse Ox 93 L 09/24/20 07:57 Intake & Output 09/23/20 09/24/20 09/24/20 18:59 06:59 18:59 Intake Total 550 Output Total 1725 600 300 Balance -1175 -600 -300 Intake: Intake, IV Titration 550 Amount Magnesium Sulfate-D5w Pmx 200 1 gm In Dextrose/Water 1 100ml.bag @ 100 mls/hr IVPB Q1H [facility] Rx#: [id number] Potassium Chloride 20 meq 200 In Water For Injection 1 100ml.bag @ 50 mls/hr IVPB Q2H [facility] Rx#: [id number] Sodium Chloride 0.9% 1, 150 000 ml @ 75 mls/hr IV . [id number] [facility] Rx#:[id number] Output: Urine 1725 600 300 Other: Voiding Method Indwelling Catheter Indwelling Catheter Urinal # Voids 1 1 - Labs CBC & Chem 7: 09/24/20 05:33 09/24/20 05:33 Labs: Abnormal Lab Results - Last 24 Hours (Table) 09/23/20 09/23/20 09/24/20 Range/Units 16:31 21:21 05:33 WBC (4.50-10.00) X 10*3/uL RBC (4.40-5.60) X 10*6/uL Hgb (13.0-17.0) g/dL Hct (39.6-50.0) % Immature Gran # (0.00-0.04) X 10*3/uL Neutrophils # (1.80-7.70) X 10*3/uL Monocytes # (0.20-1.00) X 10*3/uL BUN 40.0 H (9.0-27.0) mg/dL Creatinine 2.2 H (0.6-1.5) mg/dL Est GFR (CKD-EPI)AfAm 35.6 L (60.0-200.0) Est GFR (CKD-EPI)NonAf 30.7 L (60.0-200.0) Glucose 204 H (70-110) mg/dL POC Glucose (mg/dL) 276 H 116 H (75-99) mg/dL Calcium 7.8 L (8.7-10.3) mg/dL Magnesium 1.4 L (1.5-2.4) mg/dL 09/24/20 09/24/20 09/24/20 Range/Units 05:33 07:07 12:08 WBC 12.01 H (4.50-10.00) X 10*3/uL RBC 2.85 L (4.40-5.60) X 10*6/uL Hgb 8.8 L (13.0-17.0) g/dL Hct 26.6 L (39.6-50.0) % Immature Gran # 0.09 H (0.00-0.04) X 10*3/uL Neutrophils # 9.40 H (1.80-7.70) X 10*3/uL Monocytes # 1.35 H (0.20-1.00) X 10*3/uL BUN (9.0-27.0) mg/dL Creatinine (0.6-1.5) mg/dL Est GFR (CKD-EPI)AfAm (60.0-200.0) Est GFR (CKD-EPI)NonAf (60.0-200.0) Glucose (70-110) mg/dL POC Glucose (mg/dL) 270 H 250 H (75-99) mg/dL Calcium (8.7-10.3) mg/dL Magnesium (1.5-2.4) mg/dL Microbiology - Last 24 Hours (Table) 09/20/20 16:07 Blood Culture - Preliminary Blood No Growth after 72 hours 09/20/20 16:07 Blood Culture - Preliminary Blood No Growth after 72 hours
[2020-09-24 14:59] VITALS: BP 139/84; PULSE 91
--- NOTE | 2020-09-24 15:41 | P.DS ---
Providers Date of admission: 09/20/20 20:51 Expected date of discharge: 09/24/20 Attending physician: Puma Lovell MD Consults: 09/20/20 20:53 Consult Physician Routine Consulting Provider: Harris Wilson Consult Reason/Comments: MATHEUS Do you want consulting provider notified?: Yes, Notify in am 09/20/20 22:16 Consult Physician Routine Consulting Provider: Stephanie Pope Consult Reason/Comments: Shock, ICU Do you want consulting provider notified?: Already Contacted 09/21/20 09:01 Consult Physician Urgent Consulting Provider: Cameron Brooke Consult Reason/Comments: elevated trop, rule out NSTEMI Do you want consulting provider notified?: Yes Primary care physician: Puma Lovell MD Hospital Course: Final Diagnoses: Acute Hypovolemic shock secondary to dehydration. Acute septic shock ruled out. Metabolic and Lactic acidosis Acute renal failure secondary to the above SIRS Severe dehydration Elevated troponins, not indicative of acute coronary syndrome as per cardiology CAD status post CABG 08/16 and PCI, ischemic cardiomyopathy, EF 40-45% Diabetes mellitus type 2 Neuropathy Chronic proximal atrial fibrillation on Eliquis Hypotension Hospital course: Ashok Austin is a 65 yo M with PMH of CAD, CABG, ischemic cardiomyopathy, T2DM who presented to the ED complaining of nausea, vomiting, weakness and malaise. He states that he had been vomiting multiple times yesterday as well as experiencing diarrhea. He denies experiencing any chest pain, shortness of breath, no cough, no fever, no chills, no dysuria and no frequency no urgency. Upon presentation to the ER, pt hypotensive, WBC 20.0, BUN 68, Cr 5.34, AGMA with anion agap of 20. Initial troponin was significantly elevated at 14, EKG showing NSR. Pt given 3 L NS and transferred to ICU he had a central line placed and was started on Norepinephrine. Currently pt feeling much better, relatively asymptomatic and reports just some residual abdominal pain. Significant clinical improvement. Cleared by cardiology and pulmonary for discharge. Patient will be discharged home today as to her condition with guarded prognosis pending final DC recommendations and clearance from ne phrology. The impression and plan of care has been dictated as directed. : I performed a history and examination of this patient, discussed the same with the dictator. I agree with the dictator's note ,documented as a scribe. Any additional findings or plans will be noted. Patient Condition at Discharge: Stable Plan - Discharge Summary New Discharge Prescriptions: New hydrALAZINE HCL [Apresoline] 25 mg PO BID #60 tab Continue Atorvastatin [Lipitor] 40 mg PO DAILY #30 tab DULoxetine HCL [Cymbalta] 60 mg PO BID Semaglutide [Ozempic] 0.25 mg SQ WE Apixaban [Eliquis] 5 mg PO BID tab Insulin Aspart [NovoLOG Flexpen] 10 units SQ AC-TID PRN PRN Reason: high blood sugar oxyCODONE ER [OxyCONTIN] 80 mg PO Q12H oxyCODONE HCL [oxyCODONE HCL (IR)] 15 mg PO Q8H Aspirin 81 mg PO DAILY #30 chew rOPINIRole HCL [Requip] 1 mg PO BID Pregabalin [Lyrica] 75 mg PO BID Insulin Glargine,Hum.rec.anlog [Basaglar Kwikpen U-100] 25 unit SQ HS carvediloL [Coreg] 6.25 mg PO BID-W/MEALS #60 tab Discontinued Spironolactone [Aldactone] 25 mg PO DAILY #30 tab metFORMIN HCL 1,000 mg PO BID Lisinopril-Hctz 20-12.5 mg [Zestoretic 20-12.5] 1 tab PO BID No Action glipiZIDE [Glucotrol] 5 mg PO AC-BID Discharge Medication List Atorvastatin [Lipitor] 40 mg PO DAILY #30 tab 10/24/19 [Rx] DULoxetine HCL [Cymbalta] 60 mg PO BID 11/16/19 [History] Semaglutide [Ozempic] 0.25 mg SQ WE 11/16/19 [History] glipiZIDE [Glucotrol] 5 mg PO AC-BID 11/16/19 [History] Apixaban [Eliquis] 5 mg PO BID tab 11/18/19 [Rx] Insulin Aspart [NovoLOG Flexpen] 10 units SQ AC-TID PRN 03/01/20 [History] oxyCODONE ER [OxyCONTIN] 80 mg PO Q12H 03/01/20 [History] oxyCODONE HCL [oxyCODONE HCL (IR)] 15 mg PO Q8H 03/01/20 [History] Aspirin 81 mg PO DAILY #30 chew 04/10/20 [Rx] rOPINIRole HCL [Requip] 1 mg PO BID 06/16/20 [History] Insulin Glargine,Hum.rec.anlog [Basaglar Kwikpen U-100] 25 unit SQ HS 08/22/20 [History] Pregabalin [Lyrica] 75 mg PO BID 08/22/20 [History] carvediloL [Coreg] 6.25 mg PO BID-W/MEALS #60 tab 08/23/20 [Rx] hydrALAZINE HCL [Apresoline] 25 mg PO BID #60 tab 09/24/20 [Rx] Follow up Appointment(s)/Referral(s): Puma Lovell MD [Primary Care Provider] - 3 Days Heriberto Arredondo MD [STAFF PHYSICIAN] - 2 Weeks [facility], [NON-STAFF] - As Needed Ambulatory/Diagnostic Orders: Complete Blood Count w/diff [LAB.AMB] Time Frame: 3 Days, Location: None Selected Activity/Diet/Wound Care/Special Instructions: Pending final DC recommendations and clearance from nephrology
--- NOTE | 2020-09-24 17:29 | PN ---
PROGRESS NOTE Patient is seen for followup for acute kidney injury, mostly prerenal, currently improving. The patient is maintained on IV fluids. Creatinine down to 2.2 from 5.3 on initial admission. He has had good urine output. EXAMINATION: Today blood pressure was 145/73, heart rate 94 per minute, he is afebrile. Examination of the heart S1, S2. Examination of the lungs, bilateral breath sounds are heard. Abdomen is soft, nontender. Examination of lower extremities shows no significant edema. PIERCER exam grossly intact. LAB: Show sodium 137, potassium 3.3, chloride 100, BUN of 40, serum creatinine 2.2, hemoglobin 8.8 g/dL. ASSESSMENT: 1. Acute kidney injury, prerenal, currently improving with IV hydration. Continue with IV fluids. 2. Metabolic acidosis associated with acute kidney injury and lactic acidosis, now resolved. 3. Lactic acidosis, most likely associated with use of metformin. 4. Cardiomyopathy, EF 45%. 5. Type 2 diabetes. 6. Chronic atrial fibrillation. 7. Hypokalemia, currently being replaced. PLAN: Encourage increased oral intake. Continue IV fluids for now. MMODL / IJN: [id number] /
[2020-09-24] MEDS ORDERED: hydrALAZINE HCL 25 MG TAB PO SCH (21:00)
== END 2020-09-24 16:55 | disposition home health service (06) | DRG 871 ==
LOC: EC 15:19 → 2SICU 20:51 → 4SSUR 09-23 14:54
PROVIDERS: ADMIT Family Medicine; ATTEND Family Medicine
PROC: 3E033XZ Introduction of Vasopressor into Peripheral Vein, Percutaneous Approach (ICD-10-PCS; principal; 2020-09-20)
PROC: 02HV33Z Insertion of Infusion Device into Superior Vena Cava, Percutaneous Approach (ICD-10-PCS; 2020-09-20)
DX: R57.1 Hypovolemic shock (principal); N17.0 Acute kidney failure with tubular necrosis; I21.A1 Myocardial infarction type 2; I48.20 Chronic atrial fibrillation, unspecified; E87.2 Acidosis; I48.92 Unspecified atrial flutter; E11.40 Type 2 diabetes mellitus with diabetic neuropathy, unspecified; E86.0 Dehydration; Z79.4 Long term (current) use of insulin; Z20.822 Contact with and (suspected) exposure to COVID-19; T38.3X5A Adverse effect of insulin and oral hypoglycemic [antidiabetic] drugs, initial encounter; I25.5 Ischemic cardiomyopathy; I10 Essential (primary) hypertension; I25.10 Atherosclerotic heart disease of native coronary artery without angina pectoris; E78.5 Hyperlipidemia, unspecified; K21.9 Gastro-esophageal reflux disease without esophagitis; I25.2 Old myocardial infarction; E86.1 Hypovolemia; E87.6 Hypokalemia; I49.3 Ventricular premature depolarization; R09.02 Hypoxemia; R19.7 Diarrhea, unspecified; G89.29 Other chronic pain; M54.5 Low back pain; M79.604 Pain in right leg; M79.605 Pain in left leg; Z79.01 Long term (current) use of anticoagulants; Z79.82 Long term (current) use of aspirin; Z79.899 Other long term (current) drug therapy; Z79.891 Long term (current) use of opiate analgesic; Z87.891 Personal history of nicotine dependence; Z95.1 Presence of aortocoronary bypass graft; Z95.5 Presence of coronary angioplasty implant and graft; Z87.39 Personal history of other diseases of the musculoskeletal system and connective tissue; Z86.19 Personal history of other infectious and parasitic diseases; Z87.440 Personal history of urinary (tract) infections; Z82.49 Family history of ischemic heart disease and other diseases of the circulatory system; Z83.3 Family history of diabetes mellitus; Z83.2 Family history of diseases of the blood and blood-forming organs and certain disorders involving the immune mechanism
CPT/HCPCS: 36415; 71045; 74176; 80048; 80053; 80202; 81001; 83605; 83690; 83735; 83880; 84132; 84145; 84484; 85025; 85610; 85730; 87040; 87635; 93005; 93306; 96361; 96365; 96366; 96367; 96375; 99291

== ENCOUNTER 2020-09-26 20:09 | Inpatient (IN) | payer BC, MEDICARE, OTHER ==
[~2020-09-26 20:09] MED LIST changes: -ALBUMIN HUMAN 25% 50 ML IV ONE; -ALBUMIN HUMAN 5% 500 ML IVPB ONE; +AMIODARONE 50 MG/ML 3 ML VIAL IV ONE; -ASPIRIN 325 MG TAB PO ONE; -ATORVASTATIN 10 MG TAB PO ONE; -CALCIUM CHLORIDE 100 MG/ML 10 ML SYRINGE IV ONE; -CHLORHEXIDINE GLUCONATE 15 ML CUP MUCOUS MEM ONE; -CLEVIDIPINE BUTYRATE 25 MG in EMPTY BAG 1 BAG IV ONE; -DEXTROSE 5% IN WATER 1,000 ML with POTASSIUM CHLORIDE 110 MEQ, MAGNESIUM SULFATE 16 MEQ... IV ONE; -DEXTROSE 5% IN WATER 1,000 ML with POTASSIUM CHLORIDE 25 MEQ, SODIUM CHLORIDE 2.5MEQ/ML... IRRIGATION ONE; +DEXTROSE 5% IN WATER 50 ML BAG ONE; -HEPARIN SODIUM 1,000 UN/ML (10ML VL) IV ONE; -HEPARIN SODIUM,PORCINE 5,000 UNIT in SODIUM CHLORIDE 0.9% 500 ML 500 ML IV ONE; -INSULIN REGULAR 100 UNIT in SODIUM CHLORIDE 0.9% 100 ML IV ONE; -LACTATED RINGERS 1,000 ML IV ONE; -MAGNESIUM SULFATE MG 500 MG/ML IV ONE; -MANNITOL 25% 12.5 GM/50 ML VIAL IV ONE; -METOPROLOL TARTRATE 12.5 MG TAB PO ONE; -NITROGLYCERIN-D5W PMX 25 MG/250 ML BTL IV ONE; -NITROGLYCERIN-D5W PMX 50 MG in DEXTROSE/WATER 1 250ML.BAG IV ONE; -NOREPINEPHRINE 4 MG in SODIUM CHLORIDE 0.9% 250 ML IV ONE; -PHENYLEPHRINE 10 MG/ML VIAL IV ONE; -PHENYLEPHRINE 40 MG in SODIUM CHLORIDE 0.9% 250 ML IV ONE; -PROPOFOL 1,000 MG/100 ML VIAL IV ONE; -PROTAMINE SULFATE 10 MG/ML 25 ML VIAL IV ONE; -PROTAMINE SULFATE 250 MG in EMPTY BAG 1 BAG IV ONE; -SODIUM BICARB 8.4% 50 ML SYR (1 MEQ/ML) IV ONE; -SODIUM CHLORIDE 0.9% 1,000 ML IV ONE; -TRANEXAMIC ACID 2,000 MG in SODIUM CHLORIDE 0.9% 80 ML IV ONE; -VANCOMYCIN 1,000 MG VIAL MISCELLANE ONE; -ceFAZolin 1,000 MG in SODIUM CHLORIDE 0.9% IRRIGATIO 1,000 ML IRRIGATION ONE; -ceFAZolin 2,000 MG in SODIUM CHLORIDE 0.9% 30 ML IVPB ONE
[2020-09-26] MEDS ORDERED: SODIUM CHLORIDE 0.9% 500 ML 500 ML IV STA (20:44)
[2020-09-26] MEDS ORDERED: IPRATROPIUM-ALBUTEROL 3 ML NEB INHALATION STA (20:44)
--- NOTE | 2020-09-26 20:49 | ED ---
SOB HPI - General Chief Complaint: Shortness of Breath Stated Complaint: SOB Time Seen by Provider: 09/26/20 20:41 Source: patient, family Mode of arrival: wheelchair Limitations: no limitations - History of Present Illness Initial Comments: Ashok is a 65-year-old male presents to the ER today reporting that he hasn't been able to catch his breath throughout the day today. He states he woke up feeling like this. Has some pain that is worse with deep inspiration. No fevers chills or cough. States it is a former smoker but never did told that he has emphysema or COPD. Never needed breathing treatments. - Related Data Home Medications Medication Instructions Recorded Confirmed DULoxetine HCL [Cymbalta] 60 mg PO BID 11/16/19 09/26/20 Semaglutide [Ozempic] 0.25 mg SQ WE 11/16/19 09/26/20 glipiZIDE [Glucotrol] 5 mg PO AC-BID 11/16/19 09/26/20 Insulin Aspart [NovoLOG Flexpen] 10 units SQ AC-TID PRN 03/01/20 09/26/20 oxyCODONE ER [OxyCONTIN] 80 mg PO Q12H 03/01/20 09/26/20 oxyCODONE HCL [oxyCODONE HCL (IR)] 15 mg PO Q8H 03/01/20 09/26/20 rOPINIRole HCL [Requip] 1 mg PO BID 06/16/20 09/26/20 Insulin Glargine,Hum.rec.anlog 25 unit SQ HS 08/22/20 09/26/20 [Basaglar Kwikpen U-100] Pregabalin [Lyrica] 75 mg PO BID 08/22/20 09/26/20 Previous Rx's Medication Instructions Recorded Atorvastatin [Lipitor] 40 mg PO DAILY #30 tab 10/24/19 Apixaban [Eliquis] 5 mg PO BID tab 11/18/19 Aspirin 81 mg PO DAILY #30 chew 04/10/20 carvediloL [Coreg] 6.25 mg PO BID-W/MEALS #60 tab 08/23/20 hydrALAZINE HCL [Apresoline] 25 mg PO BID #60 tab 09/24/20 Allergies Allergy/AdvReac Type Severity Reaction Status Date / Time No Known Allergies Allergy Verified 09/26/20 20:19 Review of Systems ROS Statement: Those systems with pertinent positive or pertinent negative responses have been documented in the HPI. ROS Other: All systems not noted in ROS Statement are negative. Past Medical History Past Medical History: Atrial Fibrillation, Coronary Artery Disease (CAD), Chest Pain / Angina, Diabetes Mellitus, GERD/Reflux, Hyperlipidemia, Hypertension, Myocardial Infarction (DC) Additional Past Medical History / Comment(s): Pt had CABG 07/2019 and had post op Afib/UTI with pseudomonas aeruginosa, ischemic cardiomyopathy, IDDM type II, past R scrotal abscess with sepsis, chronic lower back pain and bilateral leg pain, Last Myocardial Infarction Date:: 03/20/15 History of Any Multi-Drug Resistant Organisms: None Reported Past Surgical History: Back Surgery, Coronary Bypass/CABG, Heart Catheterization, Heart Catheterization With Stent, Orthopedic Surgery Additional Past Surgical History / Comment(s): 08/23/2019 CABG 3 vessels, PCI with total of 5 stents, L ankle ligament repair, R leg ORIF, low back surgery, colonoscopy. Past Anesthesia/Blood Transfusion Reactions: No Reported Reaction Additional Past Anesthesia/Blood Transfusion Reaction / Comment(s): Pt has received blood in past without reaction. Date of Last Stent Placement:: 02/2015 Past Psychological History: No Psychological Hx Reported Smoking Status: Former smoker Past Alcohol Use History: None Reported Past Drug Use History: Marijuana - Past Family History Sister(s) Family Medical History: Coronary Artery Disease (CAD), Hypertension Father Family Medical History: Coronary Artery Disease (CAD), Diabetes Mellitus, Deep Vein Thrombosis (DVT), Hypertension Additional Family Medical History / Comment(s): Father at age 58yrs. He of blood clot from leg injury that went to his heart. General Exam - General Exam Comments Initial Comments: Physical Exam GENERAL: Ill-appearing gentleman HENT: Normocephalic, Atraumatic. EYES: PERRL, EOMI PULMONARY: Tachypnea with wheezing worse on the right the left CARDIOVASCULAR: RRR Warm and well perfused extremities ABDOMEN: Non-distended SKIN: No rashes or bruising : Deferred NEUROLOGIC: Alert and oriented MUSCULOSKELETAL: Moving all extremities with no apparent injury PSYCHIATRIC: No SI/HI Limitations: no limitations Course Vital Signs 09/26/20 09/26/20 09/26/20 20:14 21:06 21:36 Temperature 97.9 F Pulse Rate 85 89 121 H Respiratory 24 24 20 Rate Blood Pressure 154/80 153/92 169/112 O2 Sat by Pulse 96 94 L 100 Oximetry 09/26/20 09/26/20 09/26/20 21:57 22:02 22:24 Temperature Pulse Rate 135 H 156 H 135 H Respiratory 26 H 26 H Rate Blood Pressure 172/110 172/111 O2 Sat by Pulse 100 98 Oximetry Procedures - Intubation Sedative: Etomidate Paralytic: Rocuronium Laryngoscope: Maribel Size: 3 ET Tube Size: 8 ET Tube Uncuffed: No Tube Placement Confirmation: visualized tube passing through cords, equal breath sounds bilaterally Patient Tolerated Procedure: well Intubation Complications: none Medical Decision Making - Medical Decision Making The patient was seen and evaluated history was obtained from the patient reported he just felt like he couldn't catch his breath throughout the day today, oxygen was in the mid 90s on 2 L, he appeared uncomfortable but in no significant distress. Orders were placed. Upon reevaluation the patient was in acute respiratory distress was pale diaphoretic minimally responsive having heart rates in the 150s to 180s that appeared to be A. fib with RVR with a run of ventricular tachycardia which was treated with IV amiodarone. Patient was intubated. Labs all appear better than previous x-ray chest x-ray reveals new onset acute heart failure is likely related to arrhythmia. Patient care discussed with Dr Hector who accepts to ICU Patient care was discussed with head of advertising Dr. Caban who recommends cardioversion, discontinue Cardizem do an amiodarone drip, orders were placed 10:44 PM patient was cardioverted using 6 denies cardioversion 200 J, patient was noted to be in sinus rhythm after cardioversion Patient care was discussed with Dr. Lovell who accepts admission - Lab Data Result diagrams: 09/26/20 20:55 09/26/20 20:55 Lab Results 09/26/20 09/26/20 09/26/20 Range/Units 20:55 20:55 20:55 WBC 12.4 H (3.8-10.6) k/uL RBC 3.38 L (4.30-5.90) m/uL Hgb 10.6 L (13.0-17.5) gm/dL Hct 31.6 L (39.0-53.0) % MCV 93.4 (80.0-100.0) fL MCH 31.2 (25.0-35.0) pg MCHC 33.4 (31.0-37.0) g/dL RDW 14.0 (11.5-15.5) % Plt Count 284 (150-450) k/uL MPV 7.6 Neutrophils % 78 % Lymphocytes % 9 % Monocytes % 10 % Eosinophils % 1 % Basophils % 0 % Neutrophils # 9.6 H (1.3-7.7) k/uL Lymphocytes # 1.2 (1.0-4.8) k/uL Monocytes # 1.2 H (0-1.0) k/uL Eosinophils # 0.1 (0-0.7) k/uL Basophils # 0.1 (0-0.2) k/uL PT 9.7 (9.0-12.0) sec INR 0.9 (<1.2) APTT 28.9 (22.0-30.0) sec D-Dimer 0.37 (<0.60) mg/L FEU Sample Site ABG pH (7.35-7.45) ABG pCO2 (35-45) mmHg ABG pO2 (83-108) mmHg ABG HCO3 (21-25) mmol/L ABG Total CO2 (19-24) mmol/L ABG O2 Saturation (94-97) % ABG Base Excess mmol/L Wild Test FiO2 % Sodium 139 (137-145) mmol/L Potassium 4.1 (3.5-5.1) mmol/L Chloride 102 (98-107) mmol/L Carbon Dioxide 25 (22-30) mmol/L Anion Gap 12 mmol/L BUN 32 H (9-20) mg/dL Creatinine 1.34 H (0.66-1.25) mg/dL Est GFR (CKD-EPI)AfAm 65 (>60 ml/min/1.73 sqM) Est GFR (CKD-EPI)NonAf 56 (>60 ml/min/1.73 sqM) Glucose 155 H (74-99) mg/dL Plasma Lactic Acid Chinedu (0.7-2.0) mmol/L Calcium 9.0 (8.4-10.2) mg/dL Magnesium 1.6 (1.6-2.3) mg/dL Total Bilirubin 0.2 (0.2-1.3) mg/dL AST 66 H (17-59) U/L ALT 36 (4-49) U/L Alkaline Phosphatase 305 H (38-126) U/L Troponin I (0.000-0.034) ng/mL Total Protein 6.0 L (6.3-8.2) g/dL Albumin 3.4 L (3.5-5.0) g/dL 09/26/20 09/26/20 09/26/20 Range/Units 20:55 20:55 22:07 WBC (3.8-10.6) k/uL RBC (4.30-5.90) m/uL Hgb (13.0-17.5) gm/dL Hct (39.0-53.0) % MCV (80.0-100.0) fL MCH (25.0-35.0) pg MCHC (31.0-37.0) g/dL RDW (11.5-15.5) % Plt Count (150-450) k/uL MPV Neutrophils % % Lymphocytes % % Monocytes % % Eosinophils % % Basophils % % Neutrophils # (1.3-7.7) k/uL Lymphocytes # (1.0-4.8) k/uL Monocytes # (0-1.0) k/uL Eosinophils # (0-0.7) k/uL Basophils # (0-0.2) k/uL PT (9.0-12.0) sec INR (<1.2) APTT (22.0-30.0) sec D-Dimer (<0.60) mg/L FEU Sample Site R brachial ABG pH 7.21 L (7.35-7.45) ABG pCO2 52 H (35-45) mmHg ABG pO2 147 H (83-108) mmHg ABG HCO3 21 (21-25) mmol/L ABG Total CO2 22 (19-24) mmol/L ABG O2 Saturation 98.4 H (94-97) % ABG Base Excess -7.2 mmol/L Wild Test Yes FiO2 100 % Sodium (137-145) mmol/L Potassium (3.5-5.1) mmol/L Chloride (98-107) mmol/L Carbon Dioxide (22-30) mmol/L Anion Gap mmol/L BUN (9-20) mg/dL Creatinine (0.66-1.25) mg/dL Est GFR (CKD-EPI)AfAm (>60 ml/min/1.73 sqM) Est GFR (CKD-EPI)NonAf (>60 ml/min/1.73 sqM) Glucose (74-99) mg/dL Plasma Lactic Acid Chinedu 2.3 H* (0.7-2.0) mmol/L Calcium (8.4-10.2) mg/dL Magnesium (1.6-2.3) mg/dL Total Bilirubin (0.2-1.3) mg/dL AST (17-59) U/L ALT (4-49) U/L Alkaline Phosphatase (38-126) U/L Troponin I 0.465 H* (0.000-0.034) ng/mL Total Protein (6.3-8.2) g/dL Albumin (3.5-5.0) g/dL - EKG Data -: EKG Interpreted by [place] EKG Comments: Initial EKG was obtained at 2026, rate is 86 rhythm and sinus there is a normal axis, there are normal intervals, NC 180 QRS 102 QTc [address] elevations or depressions no evidence of ischemia or infarction Repeat EKG was obtained due to change in rhythm, repeat EKG obtained at 2138 rate is 133 rhythm is narrow complex irregularly irregular consistent with atrial fibrillation, there is ST depressions laterally concerning for ischemia likely related to rate, no acute infarction Critical Care Time Critical Care Time: Yes Total Critical Care Time: 45 Disposition Clinical Impression: Congestive heart failure, Acute pulmonary edema, NSTEMI (non-ST elevated myocardial infarction), CAD (coronary artery disease), Atrial fibrillation with RVR, Ventricular tachycardia Disposition: ADMITTED IP TO THIS HOSP Condition: Critical Referrals: Puma Lovell MD [Primary Care Provider] - 1-2 days
[2020-09-26 21:16] LABS: Basophils # (A) 0.1 k/uL (0-0.2); Basophils % (A) 0 %; Eosinophils # (A) 0.1 k/uL (0-0.7); Eosinophils % (A) 1 %; HCT 31.6 % (39.0-53.0); HGB 10.6 gm/dL (13.0-17.5); Lymphocytes # (A) 1.2 k/uL (1.0-4.8); Lymphocytes % (A) 9 %; MCH 31.2 pg (25.0-35.0); MCHC 33.4 g/dL (31.0-37.0); MCV 93.4 fL (80.0-100.0); Mean Platelet Volume 7.6; Monocytes # (A) 1.2 k/uL (0-1.0); Monocytes % (A) 10 %; Neutrophils # (A) 9.6 k/uL (1.3-7.7); Neutrophils % (A) 78 %; Platelet Count 284 k/uL (150-450); RBC 3.38 m/uL (4.30-5.90); WBC 12.4 k/uL (3.8-10.6)
[2020-09-26] MEDS ORDERED: ETOMIDATE 2 MG/ML 10 ML VIAL IVP STA ×2 (21:20)
[2020-09-26] MEDS ORDERED: ROCURONIUM 10 MG/ML (5 ML VIAL) IV STA (21:20)
[2020-09-26] MEDS ORDERED: DEXTROSE 5% IN WATER 100 ML with AMIODARONE 150 MG IV STA (21:30)
[2020-09-26 21:32] LABS: Albumin 3.4 g/dL (3.5-5.0); Magnesium 1.6 mg/dL (1.6-2.3); Potassium 4.1 mmol/L (3.5-5.1); Total Bilirubin 0.2 mg/dL (0.2-1.3)
[2020-09-26] MEDS ORDERED: DILTIAZEM DRIP BOLUS FROM BAG 1 MG SOLN IV ONE (21:41)
[2020-09-26] MEDS ORDERED: DILTIAZEM 125 MG in SODIUM CHLORIDE 0.9% 100 ML IV SCH (21:45)
[2020-09-26 21:49] LABS: D-Dimer 0.37 mg/L FEU (<0.60); INR 0.9 (<1.2); Partial Thromboplastin Time 28.9 sec (22.0-30.0); Prothrombin Time 9.7 sec (9.0-12.0)
[2020-09-26 22:11] LABS: ABG Base Excess -7.2 mmol/L; ABG HCO3 21 mmol/L (21-25); ABG Oxygen Saturation 98.4 % (94-97); ABG PCO2 52 mmHg (35-45); ABG PH 7.21 (7.35-7.45); ABG PO2 147 mmHg (83-108); ABG TCO2 22 mmol/L (19-24); Allen Test Performed? Yes
--- NOTE | 2020-09-26 22:16 | XR ---
EXAMINATION TYPE: XR chest 1V portable DATE OF EXAM: 09/26/2020 COMPARISON: 09/20/2020 HISTORY: Central line placement TECHNIQUE: FINDINGS: There is endotracheal tube with tip 1 cm from the ino. There is nasogastric tube with th e tip apparently in the distal esophagus. There is some pulmonary interstitial and airspace edema. He art is enlarged. There are sternal wires. There are chest leads. Costophrenic angles are clear. The b jailene thorax is intact. IMPRESSION: There is pulmonary edema which is new compared to old exam and could be acute heart failu re. Endotracheal tube is low and should BE pulled back 2 to 3 cm. The nasogastric tube appears to be in the distal esophagus.
[2020-09-26] MEDS ORDERED: MIDAZOLAM 1 MG/ML 5 ML VIAL IV STA (22:26)
[2020-09-26] MEDS ORDERED: HEPARIN SODIUM 1,000 UN/ML (10ML VL) IV PRN (22:29)
[2020-09-26] MEDS ORDERED: HEPARIN SOD,PORK IN 0.45% NACL 25,000 UNIT in 0.45% NACL 1 250ML.BAG IV SCH (22:30)
[2020-09-26] MEDS ORDERED: AMIODARONE 360 MG in DEXTROSE 5% IN WATER 200 ML IV ONE ×2 (22:37)
[2020-09-26] MEDS ORDERED: NALOXONE 0.4 MG/ML 1 ML VIAL IV PRN (22:45)
[2020-09-26 23:05] LABS: Glucose,Whole Blood 288 mg/dL (75-99)
[2020-09-26] MEDS ORDERED: LORazepam 2 MG/ML INJ IV STA (23:39)
[2020-09-27] MEDS ORDERED: INSULIN REGULAR 100 UNIT/ML VIAL (IV) IV STA (00:07)
[2020-09-27 01:43] LABS: Glucose,Whole Blood 196 mg/dL (75-99)
[2020-09-27 01:53] LABS: INR 0.9 (<1.2); Partial Thromboplastin Time 28.1 sec (22.0-30.0); Prothrombin Time 9.9 sec (9.0-12.0)
[2020-09-27] MEDS ORDERED: AMIODARONE 450 MG in DEXTROSE 5% IN WATER 250 ML IV SCH ×2 (04:36)
[2020-09-27 04:39] LABS: Basophils % (A) 0 %; Eosinophils # (A) 0.1 k/uL (0-0.7); Eosinophils % (A) 0 %; HCT 25.3 % (39.0-53.0); Lymphocytes # (A) 1.1 k/uL (1.0-4.8); Lymphocytes % (A) 8 %; MCH 31.1 pg (25.0-35.0); MCHC 33.6 g/dL (31.0-37.0); MCV 92.5 fL (80.0-100.0); Mean Platelet Volume 7.7; Monocytes # (A) 1.7 k/uL (0-1.0); Monocytes % (A) 13 %; Neutrophils # (A) 9.6 k/uL (1.3-7.7); Neutrophils % (A) 76 %; Platelet Count 231 k/uL (150-450); RBC 2.74 m/uL (4.30-5.90); RDW 13.8 % (11.5-15.5); WBC 12.6 k/uL (3.8-10.6)
[2020-09-27 04:40] LABS: HGB 8.5 gm/dL (13.0-17.5)
[2020-09-27 04:51] LABS: INR 0.9 (<1.2); Partial Thromboplastin Time 33.9 sec (22.0-30.0); Prothrombin Time 10.1 sec (9.0-12.0)
[2020-09-27 05:01] LABS: Albumin 2.6 g/dL (3.5-5.0); Calcium 8.2 mg/dL (8.4-10.2); Potassium 3.7 mmol/L (3.5-5.1); Total Bilirubin 0.4 mg/dL (0.2-1.3)
[2020-09-27 05:53] LABS: ABG Base Excess 4.1 mmol/L; ABG HCO3 27 mmol/L (21-25); ABG Oxygen Saturation 99.6 % (94-97); ABG PCO2 35 mmHg (35-45); ABG PO2 208 mmHg (83-108); ABG TCO2 28 mmol/L (19-24); Allen Test Performed? Yes
[2020-09-27 06:14] LABS: Glucose,Whole Blood 164 mg/dL (75-99)
[2020-09-27] MEDS: INSULIN ASPART (NovoLOG) 100 UNIT/ML VIAL SQ SCH ×3 (06:14→19:03)
[2020-09-27] MEDS: NOREPINEPHRINE 4 MG in SODIUM CHLORIDE 0.9% 250 ML IV SCH ×2 (07:00→22:24)
[2020-09-27] MEDS ORDERED: Potassium Replacement Protocol 1 EACH MISC MISCELLANE PRN (07:06)
[2020-09-27] MEDS ORDERED: INSULIN ASPART (NovoLOG) 100 UNIT/ML VIAL SQ SCH (07:30)
[2020-09-27] MEDS ORDERED: POTASSIUM BICARBONATE/CIT AC 20 MEQ TABLET.EFF NG-TUBE SCH (08:00)
[2020-09-27] MEDS ORDERED: CISATRACURIUM 2 MG/ML 5 ML VIAL IV ONE (08:30)
[2020-09-27] MEDS ORDERED: TERBUTALINE 1 MG/ML VIAL SQ ONE (09:40)
--- NOTE | 2020-09-27 09:41 | XR ---
EXAMINATION TYPE: XR chest 1V portable DATE OF EXAM: 09/27/2020 COMPARISON: 09/26/2020 HISTORY: Tube placement TECHNIQUE: Single frontal view of the chest is obtained. FINDINGS: ET and NG tube stable. Postsurgical changes noted. Heart size normal. Bilateral lower lobe infiltrate or atelectasis stable. There is improvement in appearance of the interstitium. No pneumot horax. No sizable pleural effusion. IMPRESSION: 1. Interval noticeable improvement in the interstitium suggestive of resolving venous congestion or i nterstitial pneumonitis. 2. Improving basilar atelectasis or infiltrate.
--- NOTE | 2020-09-27 09:59 | XR ---
EXAMINATION TYPE: XR chest 1V portable DATE OF EXAM: 09/27/2020 COMPARISON: 09/27/2020 HISTORY: Line placement TECHNIQUE: Single frontal view of the chest is obtained. FINDINGS: Heart is enlarged and is bilateral subsegmental consolidation tiny effusion. Mildly promin ent interstitium. Postsurgical change, ET tube, NG tube, and central line noted. Central line seen wi th the tip overlying the SVC and no sizable pneumothorax. IMPRESSION: 1. Central line seen with the tip overlying the SVC and no sizable pneumothorax. 2. Bilateral lower lobe infiltrate greater on the left stable.
[2020-09-27] MEDS ORDERED: carvediloL 6.25 MG TAB PO SCH (10:15)
[2020-09-27] MEDS: ASPIRIN 81 MG PO SCH (10:19)
[2020-09-27] MEDS: APIXABAN 5 MG TAB PO SCH ×2 (10:19→21:58)
--- NOTE | 2020-09-27 10:56 | P.CRDCN ---
History of Present Illness Consult date: 09/27/20 History of present illness: HISTORY OF PRESENT ILLNESS: This is a 65-year-old male with a past medical history significant for hypertension, hyperlipidemia, paroxysmal atrial fibrillation, congestive heart failure, ischemic cardiac myopathy, and coronary artery disease with previous PCI to the RCA in 2007 and 2014. Patient also underwent CABG x 3 in July 2019. Patient follows in the office with Dr. Hua. We have been asked to see the patient in consultation for A. fib with RVR. Patient presented to the ER with shortness of breath. He was intubated in the emergency room. Patient was found to be in A. fib with RVR. Patient was cardioverted by the emergency room physician. Patient was examined this morning at the bedside in the intensive care unit. Telemetry reveals sinus mechanism. Patient is on amiodarone drip at 0.5 mg/m. Patient was on levophed this morning which has been weaned off. He is going to get a central line and an a-line placed today per Dr. Hector. Patient is on IV heparin. EKG reveals sinus mechanism. Left axis deviation. Repeat EKG reveals atrial fibrillation with RVR with ST depression in lateral leads Chest xray interval noticeable improvement and interstitium suggestive of resolving venous congestion or interstitial pneumonitis. Improving basilar atelectasis or infiltrate. Laboratory data: WBC 12.6. Hemoglobin 8.5. Platelet count 231. Sodium 138. Potassium 3.7. BUN 34. Creatinine 1.26. BNP 15,800. Troponin 0.465. Previous troponin in August 2020 was 14.3. Current home cardiac medications include hydralazine 25 mg twice a day, carvedilol 6.25 mg twice a day, Lipitor 40 g daily, aspirin 81 mg daily, and Eliquis 5 mg twice a day Most recent echocardiogram obtained in 09/21/2020 revealed ejection fraction 45- 50%, basal inferior, mid inferior, apical septum LV wall akinesis, mild mitral regurgitation, and mild tricuspid regurgitation Cardiac catheterization history: July 2019 revealing triple vessel disease with total occlusion of RCA, critical lesion in the mid LAD, and also first diagonal and OM branch REVIEW OF SYSTEMS: Unable to obtain thorough review of systems secondary to mechanical ventilation PHYSICAL EXAM: VITAL SIGNS: Reviewed. GENERAL: Well-developed in no acute distress-on mechanical ventilation. HEENT: Head is normocephalic. Pupils are equal, round. Sclerae anicteric. Mucous membranes of the mouth are moist. Neck supple. No JVD or thyromegaly LUNGS: Respirations even and unlabored. Lungs diminished bilaterally. HEART: Regular rate and rhythm. S1 and S2 heard. ABDOMEN: Soft. Nondistended. Nontender. EXTREMITIES: Normal range of motion. No clubbing or cyanosis. Peripheral pulses intact. Trace bilateral lower extremity edema ASSESSMENT: Acute hypoxic respiratory failure requiring mechanical ventilation Paroxysmal atrial fibrillation with RVR, status post cardioversion Chronic diastolic heart failure, ejection fraction for 45-50% Hypertension Hyperlipidemia Coronary artery disease with previous PCI to RCA and CABG 3 in July 2019 Acute kidney injury, creatinine 1.34 on admission Marijuana use PLAN: No need to repeat echocardiogram Resume home cardiac medications Resume Eliquis. Discontinue IV heparin Continue IV amio at 0.5mg/min Further recommendations pending patient course Nurse practitioner note has been reviewed by physician. Signing provider agrees with the documented findings, assessment, and plan of care. Past Medical History Past Medical History: Atrial Fibrillation, Coronary Artery Disease (CAD), Chest Pain / Angina, Diabetes Mellitus, GERD/Reflux, Hyperlipidemia, Hypertension, Myocardial Infarction ([place]) Additional Past Medical History / Comment(s): Pt had CABG 07/2019 and had post op Afib/UTI with pseudomonas aeruginosa, ischemic cardiomyopathy, IDDM type II, past R scrotal abscess with sepsis, chronic lower back pain and bilateral leg pain, Last Myocardial Infarction Date:: 03/20/15 History of Any Multi-Drug Resistant Organisms: None Reported Past Surgical History: Back Surgery, Coronary Bypass/CABG, Heart Catheterization, Heart Catheterization With Stent, Orthopedic Surgery Additional Past Surgical History / Comment(s): 08/23/2019 CABG 3 vessels, PCI with total of 5 stents, L ankle ligament repair, R leg ORIF, low back surgery, colonoscopy. Past Anesthesia/Blood Transfusion Reactions: No Reported Reaction Additional Past Anesthesia/Blood Transfusion Reaction / Comment(s): Pt has received blood in past without reaction. Date of Last Stent Placement:: 02/2015 Past Psychological History: No Psychological Hx Reported Smoking Status: Former smoker Past Alcohol Use History: None Reported Past Drug Use History: Marijuana - Past Family History Sister(s) Family Medical History: Coronary Artery Disease (CAD), Hypertension Father Family Medical History: Coronary Artery Disease (CAD), Diabetes Mellitus, Deep Vein Thrombosis (DVT), Hypertension Additional Family Medical History / Comment(s): Father at age 58yrs. He of blood clot from leg injury that went to his heart. Medications and Allergies Home Medications Medication Instructions Recorded Confirmed Type Atorvastatin [Lipitor] 40 mg PO DAILY #30 tab 10/24/19 09/26/20 Rx DULoxetine HCL [Cymbalta] 60 mg PO BID 11/16/19 09/26/20 History Semaglutide [Ozempic] 0.25 mg SQ WE 11/16/19 09/26/20 History glipiZIDE [Glucotrol] 5 mg PO AC-BID 11/16/19 09/26/20 History Apixaban [Eliquis] 5 mg PO BID tab 11/18/19 09/26/20 Rx Insulin Aspart [NovoLOG Flexpen] 10 units SQ AC-TID PRN 03/01/20 09/26/20 History oxyCODONE ER [OxyCONTIN] 80 mg PO Q12H 03/01/20 09/26/20 History oxyCODONE HCL [oxyCODONE HCL (IR)] 15 mg PO Q8H 03/01/20 09/26/20 History Aspirin 81 mg PO DAILY #30 chew 04/10/20 09/26/20 Rx rOPINIRole HCL [Requip] 1 mg PO BID 06/16/20 09/26/20 History Insulin Glargine,Hum.rec.anlog 25 unit SQ HS 08/22/20 09/26/20 History [Basaglar Kwikpen U-100] Pregabalin [Lyrica] 75 mg PO BID 08/22/20 09/26/20 History carvediloL [Coreg] 6.25 mg PO BID-W/MEALS #60 tab 08/23/20 09/26/20 Rx hydrALAZINE HCL [Apresoline] 25 mg PO BID #60 tab 09/24/20 09/26/20 Rx Allergies Allergy/AdvReac Type Severity Reaction Status Date / Time No Known Allergies Allergy Verified 09/26/20 20:19 Physical Exam Vitals: Vital Signs Temp Pulse Resp BP Pulse Ox 09/27/20 07:00 56 L 16 73/51 100 09/27/20 06:00 56 L 24 94/33 99 09/27/20 05:00 60 24 87/56 100 07/01/21 04:00 58 L 24 88/59 100 09/27/20 03:00 61 24 85/47 100 09/27/20 02:00 62 24 81/54 100 09/27/20 01:38 68 13 96/56 09/27/20 01:16 98.1 F 65 26 H 85/54 100 09/27/20 00:31 98.0 F 64 26 H 85/48 100 09/26/20 23:02 95 26 H 147/87 98 09/26/20 22:24 135 H 26 H 172/111 98 09/26/20 22:02 156 H 09/26/20 21:57 135 H 26 H 172/110 100 09/26/20 21:36 121 H 20 169/112 100 09/26/20 21:06 89 24 153/92 94 L 09/26/20 20:14 97.9 F 85 24 154/80 96 Intake and Output 09/26/20 09/27/20 09/27/20 22:59 06:59 14:59 Intake Total 7.809 199.836 63.855 Output Total 700 Balance 7.809 -500.164 63.855 Intake: IV 63 Heparin Sod,Pork in 0.45% 63 NaCl 25,000 unit In 0.45 % NaCl 1 250ml.bag @ 12 UNITS/KG/HR 9.199 mls/hr IV .Q24H GABBY Rx#: [id number] Intake, IV Titration 7.809 136.836 63.855 Amount Diltiazem 125 mg In 6.583 Sodium Chloride 0.9% 100 ml @ 5 MG/HR 5 mls/hr IV .Q24H GABBY Rx#:[id number] Heparin Sod,Pork in 0.45% 50.135 NaCl 25,000 unit In 0.45 % NaCl 1 250ml.bag @ 12 UNITS/KG/HR 9.199 mls/hr IV .Q24H GABBY Rx#: [id number] propofoL 1,000 mg In 1.226 86.701 63.855 Empty Bag 1 bag @ Titrate IV .Q0M GABBY Rx#: [id number] Output: Urine 700 Other: Weight 76.657 kg 81.1 kg Results 09/27/20 04:27 09/27/20 04:27 Cardiac Enzymes 09/26/20 09/26/20 09/27/20 Range/Units 20:55 20:55 04:27 AST 66 H 43 (17-59) U/L Troponin I 0.465 H* (0.000-0.034) ng/mL Coagulation 09/26/20 09/27/20 09/27/20 Range/Units 20:55 00:47 04:27 PT 9.7 9.9 10.1 (9.0-12.0) sec APTT 28.9 28.1 33.9 H (22.0-30.0) sec CBC 09/26/20 09/27/20 Range/Units 20:55 04:27 WBC 12.4 H 12.6 H (3.8-10.6) k/uL RBC 3.38 L 2.74 L (4.30-5.90) m/uL Hgb 10.6 L 8.5 L D (13.0-17.5) gm/dL Hct 31.6 L 25.3 L (39.0-53.0) % Plt Count 284 231 (150-450) k/uL Comprehensive Metabolic Panel 09/26/20 09/27/20 Range/Units 20:55 04:27 Sodium 139 138 (137-145) mmol/L Potassium 4.1 3.7 (3.5-5.1) mmol/L Chloride 102 104 (98-107) mmol/L Carbon Dioxide 25 25 (22-30) mmol/L BUN 32 H 34 H (9-20) mg/dL Creatinine 1.34 H 1.26 H (0.66-1.25) mg/dL Glucose 155 H 152 H (74-99) mg/dL Calcium 9.0 8.2 L (8.4-10.2) mg/dL AST 66 H 43 (17-59) U/L ALT 36 32 (4-49) U/L Alkaline Phosphatase 305 H 240 H (38-126) U/L Total Protein 6.0 L 5.0 L (6.3-8.2) g/dL Albumin 3.4 L 2.6 L (3.5-5.0) g/dL Current Medications Generic Name Dose Route Start Last Admin Trade Name Freq PRN Reason Stop Dose Admin Heparin Sodium (Porcine) 0 unit 09/26/20 22:29 09/27/20 05:42 Heparin Sodium 1,000 Un/Ml (10ml Vl) IV 3,850 unit PER PROTOCOL PRN Administration Low PTT Protocol Diltiazem HCl 125 mg/ Sodium 125 mls @ 5 mls/hr 09/26/20 21:45 09/26/20 22:45 Chloride IV 0 mg/hr .Q24H GABBY 0 mls/hr Infusion 5 MG/HR Propofol 1,000 mg/ IV Solution 100 mls @ 0 mls/hr 09/26/20 22:30 09/27/20 07:33 IV 40 mcg/kg/min .Q0M GABBY 19.464 mls/hr Titration Protocol Titrate Heparin Sodium/Sodium Chloride 250 mls @ 9.199 mls/hr 09/26/20 22:30 09/27/20 05:40 25,000 unit/ Sodium Chloride IV 15 units/kg/hr .Q24H GABBY 11.499 mls/hr Titration Protocol 12 UNITS/KG/HR Amiodarone HCl 450 mg/ 250 mls @ 16.667 mls/hr 09/27/20 04:36 09/27/20 04:48 Dextrose/Water IV 09/27/20 22:35 0.5 mg/min .Q15H GABBY 16.667 mls/hr Administration Protocol 0.5 MG/MIN Norepinephrine Bitartrate 4 mg 254 mls @ 15.45 mls/hr 09/27/20 06:45 / Sodium Chloride IV .[id number] GABBY Protocol 0.05 MCG/KG/MIN Insulin Aspart 0 unit 09/27/20 06:00 09/27/20 06:14 Insulin Aspart (Novolog) 100 Unit/Ml Vial SQ 1 unit Q6HR GABBY Administration Protocol Miscellaneous Information 1 each 09/27/20 07:06 Potassium Replacement Protocol 1 Each Misc MISCELLANE DAILY PRN Per Protocol Protocol Naloxone HCl 0.2 mg 09/26/20 22:45 Naloxone 0.4 Mg/Ml 1 Ml Vial IV Q2M PRN Opioid Reversal Terbutaline Sulfate 1 mg 09/27/20 09:40 Terbutaline 1 Mg/Ml Vial SQ 09/27/20 09:41 ONCE ONE Intake and Output 09/26/20 09/27/20 09/27/20 22:59 06:59 14:59 Intake Total 7.809 199.836 63.855 Output Total 700 Balance 7.809 -500.164 63.855 Intake: IV 63 Heparin Sod,Pork in 0.45% 63 NaCl 25,000 unit In 0.45 % NaCl 1 250ml.bag @ 12 UNITS/KG/HR 9.199 mls/hr IV .Q24H GABBY Rx#: [id number] Intake, IV Titration 7.809 136.836 63.855 Amount Diltiazem 125 mg In 6.583 Sodium Chloride 0.9% 100 ml @ 5 MG/HR 5 mls/hr IV .Q24H GABBY Rx#:[id number] Heparin Sod,Pork in 0.45% 50.135 NaCl 25,000 unit In 0.45 % NaCl 1 250ml.bag @ 12 UNITS/KG/HR 9.199 mls/hr IV .Q24H GABBY Rx#: [id number] propofoL 1,000 mg In 1.226 86.701 63.855 Empty Bag 1 bag @ Titrate IV .Q0M GABBY Rx#: [id number] Output: Urine 700 Other: Weight 76.657 kg 81.1 kg 09/27/20 04:27 09/27/20 04:27
--- NOTE | 2020-09-27 10:57 | PCN ---
PROCEDURE NOTE PROCEDURE: Left subclavian triple-lumen catheter insertion. PREOP DIAGNOSIS: Fluid administration and administration of vasopressors. POSTOP DIAGNOSIS: Fluid administration and administration of vasopressors. OPERATORS: Dr. Hector, Dr. Graf. PROCEDURE IN DETAIL: A time-out was completed verifying correct patient, procedure, site, positioning, and implant(s) or special equipment if applicable. The patient was placed in a dependent position appropriate for triple lumen catheter placement based on the vein to be cannulated. The patient's left shoulder was prepped and draped in sterile fashion. 1% Lidocaine was used to anesthetize the surrounding skin area. A triple lumen 9F Cordis catheter was introduced into the left subclavian vein using Seldinger technique. The catheter was threaded smoothly over the guide wire and appropriate blood return was obtained. Each lumen of the catheter was evacuated of air and flushed with sterile saline. The catheter was then sutured in place to the skin and a sterile dressing applied. Perfusion to the extremity distal to the point of catheter insertion was checked and found to be adequate. There was no immediate complication. There was good blood return from all 3 ports. The tip of the catheter was seen in the area of the right atrium. The catheter was sutured in place. A sterile dressing was applied by the nurse. MMODL / IJN: [id number] /
--- NOTE | 2020-09-27 11:05 | PCN ---
PROCEDURE NOTE PROCEDURE PERFORMED: Attempted radial art line insertions both in the right radial artery and also the right femoral artery. PREOP DIAGNOSIS: Frequent blood draws and blood gas monitoring. POSTOP DIAGNOSIS: Frequent blood draws and blood gas monitoring. OPERATORS: Dr. Hector, Dr. Graf. ARTERIAL LINE PLACEMENT: Indications: Hemodynamic monitoring. A time-out was completed verifying correct patient, procedure, site, positioning, and implant(s) or special equipment if applicable. There was informed consent and universal timeout. Wild's test was performed to ensure adequate perfusion. The patient's right wrist and groin were prepped and draped in sterile fashion. 1% Lidocaine was used to anesthetize the area. An 18G Arrow arterial line was introduced into the right radial and right femoral artery. There were multiple attempts on both locations. We were able to initially get the introducer needle into the artery. We are also able to place the guidewire through the introducer needle. The introducing needle was removed. Placement of the catheter though was difficult and the catheter would ultimately kink in both locations. Hence, we were not able to successfully place an art line, although we did spend more than an hour attempting at both sites. We will re-evaluate the patient and possibly try again later today. There was no immediate complication. Pressure was held at the site. The patient tolerated the procedure well. MMODL / IJN: [id number] /
--- NOTE | 2020-09-27 11:21 | P.CNPUL ---
History of Present Illness Consult date: 09/27/20 Requesting physician: Puma Lovell Reason for consult: dyspnea, hypoxemia, abnormal CXR/CT Chief complaint: Shortness of breath. Respiratory failure. History of present illness: Primary consult dated 09/27/2020. 65-year-old male who presents to the emergency department, at about 8:00 at [facility], on September 26. The patient apparently presented for shortness of breath. He apparently was not able to catch breath throughout the day. He apparently also some pain with deep inspiration. There is no fever or chills or cough. There was no chest pain or chest discomfort otherwise. The patient was recently in the hospital between September 20 and September 24. We saw him at that time. The patient was seen by Dr. Rizzo in the emergency department. Unfortunately, the patient developed mellissa respiratory failure car intubation. In addition, the patient had ventricular tachycardia and received cardioversion in the emergency department. The patient was placed on the ventilator, and amiodarone. C urrently, he remains on the volume assist control mode, rate 24, tidal volume 450, FiO2 40%, and PEEP of 5. Arterial blood gases show pO2 of 208, pCO2 35, and pH is 7.50. Those blood gases were done on 60%. He remains on amiodarone at 1 mg/m, propofol at 40 mcg/kg/m, and norepinephrine at 4 mcg/m. The patient is receiving heparin via weightbase protocol. We will attempt to start tube feeds today. A left subclavian triple-lumen catheter was used. Multiple attempts at placement of an arterial line in the right radial artery, and right femoral artery, were unsuccessful. White count 12.6, hemoglobin 8.5, hematocrit 25.3, and platelet count 231,000. PT and INR are normal. PTT was 33.9. Sodium 138, potassium 3.7, chlorides 104, CO2 25, anion gap 9, BUN 34, creatinine 1.26. Chest x-ray shows bilateral lower lobe infiltrates left greater than right, and a properly placed central line. Review of Systems A formal review of systems cannot be done because of patient's currently sedated and intubated. Apparently in the emergency room, he complained to the ER physician of shortness of breath, the day of admission. Past Medical History Past Medical History: Atrial Fibrillation, Coronary Artery Disease (CAD), Chest Pain / Angina, Diabetes Mellitus, GERD/Reflux, Hyperlipidemia, Hypertension, Myocardial Infarction (PR) Additional Past Medical History / Comment(s): Pt had CABG 07/2019 and had post op Afib/UTI with pseudomonas aeruginosa, ischemic cardiomyopathy, IDDM type II, past R scrotal abscess with sepsis, chronic lower back pain and bilateral leg pain, Last Myocardial Infarction Date:: 03/20/15 History of Any Multi-Drug Resistant Organisms: None Reported Past Surgical History: Back Surgery, Coronary Bypass/CABG, Heart Catheterization, Heart Catheterization With Stent, Orthopedic Surgery Additional Past Surgical History / Comment(s): 08/23/2019 CABG 3 vessels, PCI with total of 5 stents, L ankle ligament repair, R leg ORIF, low back surgery, colonoscopy. Past Anesthesia/Blood Transfusion Reactions: No Reported Reaction Additional Past Anesthesia/Blood Transfusion Reaction / Comment(s): Pt has received blood in past without reaction. Date of Last Stent Placement:: 02/2015 Past Psychological History: No Psychological Hx Reported Smoking Status: Former smoker Past Alcohol Use History: None Reported Past Drug Use History: Marijuana - Past Family History Sister(s) Family Medical History: Coronary Artery Disease (CAD), Hypertension Father Family Medical History: Coronary Artery Disease (CAD), Diabetes Mellitus, Deep Vein Thrombosis (DVT), Hypertension Additional Family Medical History / Comment(s): Father at age 58yrs. He of blood clot from leg injury that went to his heart. Medications and Allergies Home Medications Medication Instructions Recorded Confirmed Type Atorvastatin [Lipitor] 40 mg PO DAILY #30 tab 10/24/19 09/26/20 Rx DULoxetine HCL [Cymbalta] 60 mg PO BID 11/16/19 09/26/20 History Semaglutide [Ozempic] 0.25 mg SQ WE 11/16/19 09/26/20 History glipiZIDE [Glucotrol] 5 mg PO AC-BID 11/16/19 09/26/20 History Apixaban [Eliquis] 5 mg PO BID tab 11/18/19 09/26/20 Rx Insulin Aspart [NovoLOG Flexpen] 10 units SQ AC-TID PRN 03/01/20 09/26/20 History oxyCODONE ER [OxyCONTIN] 80 mg PO Q12H 03/01/20 09/26/20 History oxyCODONE HCL [oxyCODONE HCL (IR)] 15 mg PO Q8H 03/01/20 09/26/20 History Aspirin 81 mg PO DAILY #30 chew 04/10/20 09/26/20 Rx rOPINIRole HCL [Requip] 1 mg PO BID 06/16/20 09/26/20 History Insulin Glargine,Hum.rec.anlog 25 unit SQ HS 08/22/20 09/26/20 History [Basaglar Kwikpen U-100] Pregabalin [Lyrica] 75 mg PO BID 08/22/20 09/26/20 History carvediloL [Coreg] 6.25 mg PO BID-W/MEALS #60 tab 08/23/20 09/26/20 Rx hydrALAZINE HCL [Apresoline] 25 mg PO BID #60 tab 09/24/20 09/26/20 Rx Allergies Allergy/AdvReac Type Severity Reaction Status Date / Time No Known Allergies Allergy Verified 09/26/20 20:19 Physical Exam Osteopathic Statement: *. No significant issues noted on an osteopathic structural exam other than those noted in the History and Physical/Consult. Vitals: Vital Signs Temp Pulse Resp BP Pulse Ox 09/27/20 10:00 57 L 14 122/67 97 09/27/20 09:00 61 24 89/60 95 09/27/20 08:30 57 L 24 132/77 97 09/27/20 08:00 58 L 24 85/72 97 09/27/20 07:30 58 L 22 104/68 97 09/27/20 07:00 56 L 16 73/51 100 09/27/20 06:00 56 L 24 94/33 99 09/27/20 05:00 60 24 87/56 100 09/27/20 04:00 58 L 24 88/59 100 09/27/20 03:00 61 24 85/47 100 09/27/20 02:00 62 24 81/54 100 09/27/20 01:38 68 13 96/56 09/27/20 01:16 98.1 F 65 26 H 85/54 100 09/27/20 00:31 98.0 F 64 26 H 85/48 100 09/26/20 23:02 95 26 H 147/87 98 09/26/20 22:24 135 H 26 H 172/111 98 09/26/20 22:02 156 H 09/26/20 21:57 135 H 26 H 172/110 100 09/26/20 21:36 121 H 20 169/112 100 09/26/20 21:06 89 24 153/92 94 L 09/26/20 20:14 97.9 F 85 24 154/80 96 Intake and Output 09/26/20 09/27/20 09/27/20 22:59 06:59 14:59 Intake Total 7.809 199.836 63.855 Output Total 700 Balance 7.809 -500.164 63.855 Intake: IV 63 Heparin Sod,Pork in 0.45% 63 NaCl 25,000 unit In 0.45 % NaCl 1 250ml.bag @ 12 UNITS/KG/HR 9.199 mls/hr IV .Q24H GABBY Rx#: [id number] Intake, IV Titration 7.809 136.836 63.855 Amount Diltiazem 125 mg In 6.583 Sodium Chloride 0.9% 100 ml @ 5 MG/HR 5 mls/hr IV .Q24H GABBY Rx#:[id number] Heparin Sod,Pork in 0.45% 50.135 NaCl 25,000 unit In 0.45 % NaCl 1 250ml.bag @ 12 UNITS/KG/HR 9.199 mls/hr IV .Q24H GABBY Rx#: [id number] propofoL 1,000 mg In 1.226 86.701 63.855 Empty Bag 1 bag @ Titrate IV .Q0M GABBY Rx#: [id number] Output: Urine 700 Other: Weight 76.657 kg 81.1 kg No acute distress, sedated, with an orally placed endotracheal tube. HEENT examination is grossly unremarkable. Neck supple. Full range of motion. No adenopathy thyromegaly or neck vein distention. Cardiovascular examination reveals regular rhythm rate. S1-S2 normal. No S3 or S4. No discernible murmur noted. Heart rate 57 bpm. Heart sounds are distant. Lungs reveal bilateral scattered rhonchi. No wheezes or crackles. Breath sounds are equal bilaterally. Abdomen soft bowel sounds are heard. No masses or tenderness. Extremities are intact. No cyanosis clubbing or edema. Skin is without rash or lesion. Neurologic examination cannot be adequately assessed as the patient's currently sedated. Results - Laboratory Findings CBC and BMP: 09/27/20 04:27 09/27/20 04:27 ABG ABG pH 7.50 (7.35-7.45) H 09/27/20 05:47 ABG pCO2 35 mmHg (35-45) 09/27/20 05:47 ABG pO2 208 mmHg (83-108) H 09/27/20 05:47 ABG O2 Saturation 99.6 % (94-97) H 09/27/20 05:47 PT/INR, D-dimer PT 10.1 sec (9.0-12.0) 09/27/20 04:27 INR 0.9 (<1.2) 09/27/20 04:27 D-Dimer 0.37 mg/L FEU (<0.60) 09/26/20 20:55 Abnormal lab findings: Abnormal Labs 09/26/20 09/26/20 09/26/20 20:55 20:55 20:55 WBC 12.4 H RBC 3.38 L Hgb 10.6 L Hct 31.6 L Neutrophils # 9.6 H Monocytes # 1.2 H APTT ABG pH ABG pCO2 ABG pO2 ABG HCO3 ABG Total CO2 ABG O2 Saturation BUN 32 H Creatinine 1.34 H Glucose 155 H POC Glucose (mg/dL) Plasma Lactic Acid Chinedu 2.3 H* Calcium AST 66 H Alkaline Phosphatase 305 H Troponin I Total Protein 6.0 L Albumin 3.4 L 09/26/20 09/26/20 09/26/20 20:55 22:07 23:04 WBC RBC Hgb Hct Neutrophils # Monocytes # APTT ABG pH 7.21 L ABG pCO2 52 H ABG pO2 147 H ABG HCO3 ABG Total CO2 ABG O2 Saturation 98.4 H BUN Creatinine Glucose POC Glucose (mg/dL) 288 H Plasma Lactic Acid Chinedu Calcium AST Alkaline Phosphatase Troponin I 0.465 H* Total Protein Albumin 09/27/20 09/27/20 09/27/20 00:47 01:41 04:27 WBC RBC Hgb Hct Neutrophils # Monocytes # APTT 33.9 H ABG pH ABG pCO2 ABG pO2 ABG HCO3 ABG Total CO2 ABG O2 Saturation BUN Creatinine Glucose POC Glucose (mg/dL) 196 H Plasma Lactic Acid Chinedu 2.8 H* Calcium AST Alkaline Phosphatase Troponin I Total Protein Albumin 09/27/20 09/27/20 09/27/20 04:27 04:27 05:47 WBC 12.6 H RBC 2.74 L Hgb 8.5 L D Hct 25.3 L Neutrophils # 9.6 H Monocytes # 1.7 H APTT ABG pH 7.50 H ABG pCO2 ABG pO2 208 H ABG HCO3 27 H ABG Total CO2 28 H ABG O2 Saturation 99.6 H BUN 34 H Creatinine 1.26 H Glucose 152 H POC Glucose (mg/dL) Plasma Lactic Acid Chinedu Calcium 8.2 L AST Alkaline Phosphatase 240 H Troponin I Total Protein 5.0 L Albumin 2.6 L 09/27/20 06:13 WBC RBC Hgb Hct Neutrophils # Monocytes # APTT ABG pH ABG pCO2 ABG pO2 ABG HCO3 ABG Total CO2 ABG O2 Saturation BUN Creatinine Glucose POC Glucose (mg/dL) 164 H Plasma Lactic Acid Chinedu Calcium AST Alkaline Phosphatase Troponin I Total Protein Albumin - Diagnostic Findings Chest x-ray: image reviewed Assessment and Plan Assessment: Acute shortness of breath, with acute hypoxemic respiratory failure, likely multifactorial, in part related to fluid overload, but also possible bilateral pneumonia. History of CAD, status post bypass grafting, 2019. Ventricular tachycardia, requiring cardioversion in the emergency department. Hypotension, which may be related to underlying sepsis. Probable COPD from previous tobacco use. Recent admission to the hospital from September 20 through September 24, for hypotension, dehydration, and severe metabolic acidosis. History of chronic atrial fibrillation. History of diabetes mellitus. Gastroesophageal reflux disease. Hyperlipidemia. Hypertension. History of myocardial infarction. History of pseudomonas aeruginosa urinary tract infection. History of scrotal abscess. History of chronic back pain. Plan: Plan Dated 09/27/2020. The patient's FiO2 was reduced from 60%, down to 40% this morning, based on his blood gases. In addition, the patient remains on amiodarone, will perform, and norepinephrine, as well as IV heparin. The patient did receive cardioversion in the emergency department for ventricular tachycardia. His chest x-ray suggests fluid overload and/or pneumonia. His overall prognosis is not good. He is not a very healthy chap. We did place a left subclavian triple-lumen catheter. We attempted multiple times to place a right radial art line in right femoral artery art line, but were unsuccessful. Medications are reviewed. Additional recommendations and suggestions are forthcoming. I was told by the ER physician, that the patient was not taking any of his discharge medications he was discharged on September 24. Time with Patient: Greater than 30
[2020-09-27] MEDS ORDERED: IPRATROPIUM-ALBUTEROL 3 ML NEB INHALATION PRN (11:22)
[2020-09-27] MEDS: IPRATROPIUM-ALBUTEROL 3 ML NEB INHALATION SCH ×3 (11:39→19:18)
[2020-09-27 11:59] LABS: Glucose,Whole Blood 144 mg/dL (75-99)
[2020-09-27] MEDS: AMIODARONE 450 MG in DEXTROSE 5% IN WATER 250 ML IV SCH ×2 (13:35)
[2020-09-27 17:48] LABS: Glucose,Whole Blood 112 mg/dL (75-99)
[2020-09-28] MEDS: IPRATROPIUM-ALBUTEROL 3 ML NEB INHALATION SCH ×7 (00:11→23:08)
[2020-09-28 01:10] LABS: Glucose,Whole Blood 181 mg/dL (75-99)
[2020-09-28] MEDS: INSULIN ASPART (NovoLOG) 100 UNIT/ML VIAL SQ SCH ×5 (01:11→23:34)
[2020-09-28 04:59] LABS: Basophils % (A) 0 %; Eosinophils # (A) 0.2 k/uL (0-0.7); Eosinophils % (A) 2 %; HCT 28.8 % (39.0-53.0); HGB 9.6 gm/dL (13.0-17.5); Lymphocytes # (A) 1.4 k/uL (1.0-4.8); Lymphocytes % (A) 15 %; MCH 31.6 pg (25.0-35.0); MCHC 33.3 g/dL (31.0-37.0); MCV 94.9 fL (80.0-100.0); Mean Platelet Volume 7.1; Monocytes # (A) 0.9 k/uL (0-1.0); Monocytes % (A) 10 %; Neutrophils # (A) 6.7 k/uL (1.3-7.7); Neutrophils % (A) 71 %; Platelet Count 297 k/uL (150-450); RBC 3.04 m/uL (4.30-5.90); RDW 14.2 % (11.5-15.5); WBC 9.3 k/uL (3.8-10.6)
[2020-09-28 05:10] LABS: Calcium 9.1 mg/dL (8.4-10.2); Potassium 3.7 mmol/L (3.5-5.1)
[2020-09-28] MEDS: AMIODARONE 450 MG in DEXTROSE 5% IN WATER 250 ML IV SCH ×4 (05:20→18:17)
[2020-09-28 05:39] LABS: ABG Base Excess 7.1 mmol/L; ABG HCO3 30 mmol/L (21-25); ABG Oxygen Saturation 98.8 % (94-97); ABG PCO2 35 mmHg (35-45); ABG PH 7.54 (7.35-7.45); ABG PO2 114 mmHg (83-108); ABG TCO2 31 mmol/L (19-24); Allen Test Performed? Yes
[2020-09-28 06:00] LABS: Glucose,Whole Blood 142 mg/dL (75-99)
[2020-09-28] MEDS ORDERED: POTASSIUM BICARBONATE/CIT AC 20 MEQ TABLET.EFF NG-TUBE SCH (06:00)
--- NOTE | 2020-09-28 08:31 | P.HPIM ---
History of Present Illness H&P Date: 09/27/20 Ashok Austin is a 65 yo M with past medical history significant for hypertension, hyperlipidemia, paroxysmal atrial fibrillation, congestive heart failure, ischemic cardiac myopathy, and coronary artery disease with stenting and CABG x 3 in July 2019. He was recently admitted last week with hypovolemic shock and MATHEUS secondary to vomiting and diarrhea, he was treated at that time with IV fluids and discharged home. Apparently pt had not taken his prescribed medications after discharge. Patient presented to the ER with shortness of breath. He was intubated in the emergency room. Patient was found to be in A. fib with RVR. Patient was cardioverted by the emergency room physician. He was noted on CXR to have emelina lower lobe infiltrates. WBC 12.6k, Cr 1.26, procalcitonin 3.5. Patient was examined this morning at the bedside in the intensive care unit. Patient is on amiodarone drip. Patient was on levophed this morning which has been weaned off. Patient is on IV heparin. Review of Systems ROS unobtainable: due to endotracheal tube Past Medical History Past Medical History: Atrial Fibrillation, Coronary Artery Disease (CAD), Chest Pain / Angina, Diabetes Mellitus, GERD/Reflux, Hyperlipidemia, Hypertension, Myocardial Infarction (CO) Additional Past Medical History / Comment(s): Pt had CABG 07/2019 and had post op Afib/UTI with pseudomonas aeruginosa, ischemic cardiomyopathy, IDDM type II, past R scrotal abscess with sepsis, chronic lower back pain and bilateral leg pain, Last Myocardial Infarction Date:: 03/20/15 History of Any Multi-Drug Resistant Organisms: None Reported Past Surgical History: Back Surgery, Coronary Bypass/CABG, Heart Catheterization, Heart Catheterization With Stent, Orthopedic Surgery Additional Past Surgical History / Comment(s): 08/23/2019 CABG 3 vessels, PCI with total of 5 stents, L ankle ligament repair, R leg ORIF, low back surgery, colonoscopy. Past Anesthesia/Blood Transfusion Reactions: No Reported Reaction Additional Past Anesthesia/Blood Transfusion Reaction / Comment(s): Pt has recei uma blood in past without reaction. Date of Last Stent Placement:: 02/2015 Past Psychological History: No Psychological Hx Reported Smoking Status: Former smoker Past Alcohol Use History: None Reported Past Drug Use History: Marijuana - Past Family History Sister(s) Family Medical History: Coronary Artery Disease (CAD), Hypertension Father Family Medical History: Coronary Artery Disease (CAD), Diabetes Mellitus, Deep Vein Thrombosis (DVT), Hypertension Additional Family Medical History / Comment(s): Father at age 58yrs. He of blood clot from leg injury that went to his heart. Medications and Allergies Home Medications Medication Instructions Recorded Confirmed Type Atorvastatin [Lipitor] 40 mg PO DAILY #30 tab 10/24/19 09/26/20 Rx DULoxetine HCL [Cymbalta] 60 mg PO BID 11/16/19 09/26/20 History Semaglutide [Ozempic] 0.25 mg SQ WE 11/16/19 09/26/20 History glipiZIDE [Glucotrol] 5 mg PO AC-BID 11/16/19 09/26/20 History Apixaban [Eliquis] 5 mg PO BID tab 11/18/19 09/26/20 Rx Insulin Aspart [NovoLOG Flexpen] 10 units SQ AC-TID PRN 03/01/20 09/26/20 History oxyCODONE ER [OxyCONTIN] 80 mg PO Q12H 03/01/20 09/26/20 History oxyCODONE HCL [oxyCODONE HCL (IR)] 15 mg PO Q8H 03/01/20 09/26/20 History Aspirin 81 mg PO DAILY #30 chew 04/10/20 09/26/20 Rx rOPINIRole HCL [Requip] 1 mg PO BID 06/16/20 09/26/20 History Insulin Glargine,Hum.rec.anlog 25 unit SQ HS 08/22/20 09/26/20 History [Basaglar Kwikpen U-100] Pregabalin [Lyrica] 75 mg PO BID 08/22/20 09/26/20 History carvediloL [Coreg] 6.25 mg PO BID-W/MEALS #60 tab 08/23/20 09/26/20 Rx hydrALAZINE HCL [Apresoline] 25 mg PO BID #60 tab 09/24/20 09/26/20 Rx Allergies Allergy/AdvReac Type Severity Reaction Status Date / Time No Known Allergies Allergy Verified 09/26/20 20:19 Physical Exam Vitals: Vital Signs Temp Pulse Resp BP Pulse Ox 09/28/20 08:21 59 L 09/28/20 07:00 74 24 112/67 100 09/28/20 06:30 53 L 24 129/77 100 09/28/20 06:00 55 L 24 101/63 100 09/28/20 05:30 55 L 24 130/90 100 09/28/20 05:00 78 25 H 115/72 100 09/28/20 04:30 97.9 F 60 24 146/84 100 09/28/20 04:00 69 26 H 95/61 100 09/28/20 03:44 80 09/28/20 03:34 61 09/28/20 03:30 55 L 24 110/67 100 09/28/20 03:00 54 L 24 98/62 99 09/28/20 02:30 55 L 24 96/60 98 09/28/20 02:00 58 L 24 114/71 97 09/28/20 01:30 60 24 148/82 99 09/28/20 01:00 63 24 130/78 100 09/28/20 00:30 69 16 107/67 100 09/28/20 00:25 79 09/28/20 00:12 77 09/28/20 00:00 56 L 24 112/69 100 09/27/20 23:30 91.7 F L 57 L 24 122/72 99 09/27/20 23:00 61 24 134/77 100 09/27/20 22:30 63 24 147/90 100 09/27/20 22:00 76 38 H 129/73 100 09/27/20 21:30 69 30 H 122/69 99 09/27/20 21:00 62 24 139/76 98 09/27/20 20:30 63 24 125/71 98 09/27/20 20:00 97.4 F L 63 24 116/66 99 09/27/20 19:30 70 24 131/88 100 09/27/20 19:19 67 09/27/20 19:00 61 24 151/91 99 09/27/20 18:30 65 24 139/103 100 09/27/20 18:00 62 24 122/68 100 09/27/20 17:30 65 24 130/71 100 09/27/20 17:00 61 24 134/74 100 09/27/20 16:30 63 24 111/64 100 09/27/20 16:00 56 L 24 121/69 100 09/27/20 15:45 59 L 09/27/20 15:35 57 L 09/27/20 15:30 57 L 25 H 119/68 100 09/27/20 15:00 57 L 24 110/67 100 09/27/20 14:45 61 24 107/64 100 09/27/20 14:30 57 L 25 H 99/61 100 09/27/20 14:15 58 L 24 101/63 100 09/27/20 12:00 61 09/27/20 11:45 62 09/27/20 11:30 55 L 24 81/58 97 09/27/20 11:15 54 L 24 149/81 99 09/27/20 11:00 56 L 24 138/78 98 09/27/20 10:45 56 L 24 83/54 98 09/27/20 10:30 58 L 24 75/49 98 09/27/20 10:00 57 L 14 122/67 97 09/27/20 09:00 61 24 89/60 95 09/27/20 08:30 57 L 24 132/77 97 Intake and Output 09/27/20 09/28/20 09/28/20 22:59 06:59 14:59 Intake Total 100 646.037 Output Total 2049 147 Balance -1950 -823.963 Intake: Intake, IV Titration 100 506.037 Amount Amiodarone 450 mg In 250 Dextrose 5% in Water 250 ml @ 0.5 MG/MIN 16.667 mls/hr IV .Q15H GABBY Rx#: [id number] propofoL 1,000 mg In 100 256.037 Empty Bag 1 bag @ Titrate IV .Q0M GABBY Rx#: [id number] Tube Feeding 80 Other 60 Output: Urine 2049 1469 Other: Voiding Method Indwelling Catheter Indwelling Catheter Weight 78.7 kg General: well developed, intubated, sedated. Vitals reviewed HEENT: NC/AT, mmm Neck: Supple, no JVD, no thyromegaly CV: RRR, no murmur Lungs: intubated, clear breath sounds Abd: soft, non distended, bowel sounds present Neuro: sedated on propofol Skin: warm and dry Results CBC & Chem 7: 09/28/20 04:31 09/28/20 04:31 Labs: Abnormal Lab Results - Last 24 Hours (Table) 09/27/20 09/27/20 09/27/20 Range/Units 04:27 11:57 17:46 RBC (4.30-5.90) m/uL Hgb (13.0-17.5) gm/dL Hct (39.0-53.0) % ABG pH (7.35-7.45) ABG pO2 (83-108) mmHg ABG HCO3 (21-25) mmol/L ABG Total CO2 (19-24) mmol/L ABG O2 Saturation (94-97) % BUN (9-20) mg/dL Glucose (74-99) mg/dL POC Glucose (mg/dL) 144 H 112 H (75-99) mg/dL Procalcitonin 3.54 H (0.02-0.09) ng/mL 09/28/20 09/28/20 09/28/20 Range/Units 01:08 04:31 04:31 RBC 3.04 L (4.30-5.90) m/uL Hgb 9.6 L (13.0-17.5) gm/dL Hct 28.8 L (39.0-53.0) % ABG pH (7.35-7.45) ABG pO2 (83-108) mmHg ABG HCO3 (21-25) mmol/L ABG Total CO2 (19-24) mmol/L ABG O2 Saturation (94-97) % BUN 25 H (9-20) mg/dL Glucose 137 H (74-99) mg/dL POC Glucose (mg/dL) 181 H (75-99) mg/dL Procalcitonin (0.02-0.09) ng/mL 09/28/20 09/28/20 Range/Units 05:36 05:58 RBC (4.30-5.90) m/uL Hgb (13.0-17.5) gm/dL Hct (39.0-53.0) % ABG pH 7.54 H (7.35-7.45) ABG pO2 114 H (83-108) mmHg ABG HCO3 30 H (21-25) mmol/L ABG Total CO2 31 H (19-24) mmol/L ABG O2 Saturation 98.8 H (94-97) % BUN (9-20) mg/dL Glucose (74-99) mg/dL POC Glucose (mg/dL) 142 H (75-99) mg/dL Procalcitonin (0.02-0.09) ng/mL Microbiology - Last 24 Hours (Table) 09/27/20 01:57 Gram Stain - Preliminary Sputum Sputum Culture - Preliminary Assessment and Plan Plan: 1. Acute hypoxic respiratory failure. Question underlying pneumonia. Consult to pulmonary. Empiric antibiotics. Dujay 2. A fib with RVR. Cardiology consulted, continue with amiodarone. Continue eliquis 3. T2DM. Continue with accucheck, sliding scale insulin
[2020-09-28] MEDS ORDERED: CISATRACURIUM 2 MG/ML 5 ML VIAL IV ONE (09:04)
--- NOTE | 2020-09-28 09:16 | XR ---
EXAMINATION TYPE: XR chest 1V portable DATE OF EXAM: 09/28/2020 COMPARISON: 09/27/2020 HISTORY: Line placement TECHNIQUE: Single frontal view of the chest is obtained. FINDINGS: Left-sided central line stable overlying the SVC. ET and NG tube stable. Postsurgical coleman ges with bibasilar subsegmental consolidation. No sizable pneumothorax. Tiny left pleural effusion cavazos spected. No overt failure. IMPRESSION: 1. Postoperative left basilar atelectasis favored over pneumonia with tiny effusion correlate clinica lly.
--- NOTE | 2020-09-28 10:01 | P.PN ---
Subjective Progress Note Date: 09/28/20 HISTORY OF PRESENT ILLNESS: This is a 65-year-old male with a past medical history significant for hypertension, hyperlipidemia, paroxysmal atrial fibrillation, congestive heart failure, ischemic cardiac myopathy, and coronary artery disease with previous PCI to the RCA in 2007 and 2014. Patient also underwent CABG x 3 in July 2019. Patient follows in the office with Dr. Hua. We have been asked to see the patient in consultation for A. fib with RVR. Patient presented to the ER with shortness of breath. He was intubated in the emergency room. Patient was found to be in A. fib with RVR. Patient was cardioverted by the emergency room physician. Patient was examined this morning at the bedside in the intensive care unit. Telemetry reveals sinus mechanism. Patient is on amiodarone drip at 0.5 mg/m. Patient was on levophed this morning which has been weaned off. He is going to get a central line and an a-line placed today per Dr. Hector. Patient is on IV heparin. EKG reveals sinus mechanism. Left axis deviation. Repeat EKG reveals atrial fibrillation with RVR with ST depression in lateral leads Chest xray interval noticeable improvement and interstitium suggestive of resolving venous congestion or interstitial pneumonitis. Improving basilar atelectasis or infiltrate. Laboratory data: WBC 12.6. Hemoglobin 8.5. Platelet count 231. Sodium 138. Potassium 3.7. BUN 34. Creatinine 1.26. BNP 15,800. Troponin 0.465. Previous troponin in August 2020 was 14.3. Current home cardiac medications include hydralazine 25 mg twice a day, carvedilol 6.25 mg twice a day, Lipitor 40 g daily, aspirin 81 mg daily, and Eliquis 5 mg twice a day Most recent echocardiogram obtained in 09/21/2020 revealed ejection fraction 45- 50%, basal inferior, mid inferior, apical septum LV wall akinesis, mild mitral regurgitation, and mild tricuspid regurgitation Cardiac catheterization history: July 2019 revealing triple vessel disease with total occlusion of RCA, critical lesion in the mid LAD, and also first diagonal and OM branch 09/28/2020 Patient examined this morning at the bedside. He remains intubated on mechanical ventilation. Telemetry reveals sinus mechanism. He remains on IV amio. PHYSICAL EXAM: VITAL SIGNS: Reviewed. GENERAL: Well-developed in no acute distress-on mechanical ventilation. HEENT: Head is normocephalic. Pupils are equal, round. Sclerae anicteric. Mucous membranes of the mouth are moist. Neck supple. No JVD or thyromegaly LUNGS: Respirations even and unlabored. Lungs diminished bilaterally. HEART: Regular rate and rhythm. S1 and S2 heard. ABDOMEN: Soft. Nondistended. Nontender. EXTREMITIES: Normal range of motion. No clubbing or cyanosis. Peripheral pulses intact. Trace bilateral lower extremity edema ASSESSMENT: Acute hypoxic respiratory failure requiring mechanical ventilation Paroxysmal atrial fibrillation with RVR, status post cardioversion Chronic diastolic heart failure, ejection fraction for 45-50% Hypertension Hyperlipidemia Coronary artery disease with previous PCI to RCA and CABG 3 in July 2019 Acute kidney injury, creatinine 1.34 on admission Marijuana use PLAN: Continue current cardiac medications Continue IV amio at 0.5mg/min while intubated Further recommendations pending patient course Nurse practitioner note has been reviewed by physician. Signing provider agrees with the documented findings, assessment, and plan of care. Objective - Vital Signs Vital signs: Vital Signs Temp 97.9 F 09/28/20 04:30 Pulse 56 L 09/28/20 08:52 Resp 24 09/28/20 07:00 BP 112/67 09/28/20 07:00 Pulse Ox 100 09/28/20 07:00 Intake & Output 09/27/20 09/28/20 09/28/20 18:59 06:59 18:59 Intake Total 152.704 746.037 Output Total 1510 2920 Balance -1357.296 -2173.963 Weight 81.1 kg 78.7 kg Intake: Intake, IV Titration 152.704 606.037 Amount Amiodarone 450 mg In 250 Dextrose 5% in Water 250 ml @ 0.5 MG/MIN 16.667 mls/hr IV .Q15H [facility] Rx#: [id number] Heparin Sod,Pork in 0.45% 52.704 NaCl 25,000 unit In 0.45 % NaCl 1 250ml.bag @ 12 UNITS/KG/HR 9.199 mls/hr IV .Q24H [facility] Rx#: [id number] propofoL 1,000 mg In 100.000 356.037 Empty Bag 1 bag @ Titrate IV .Q0M [facility] Rx#: [id number] Tube Feeding 80 Other 60 Output: Urine 1510 2920 Other: Voiding Method Indwelling Catheter Indwelling Catheter - Labs CBC & Chem 7: 09/28/20 04:31 09/28/20 04:31 Labs: Abnormal Lab Results - Last 24 Hours (Table) 09/27/20 09/27/20 09/27/20 Range/Units 04:27 11:57 17:46 RBC (4.30-5.90) m/uL Hgb (13.0-17.5) gm/dL Hct (39.0-53.0) % ABG pH (7.35-7.45) ABG pO2 (83-108) mmHg ABG HCO3 (21-25) mmol/L ABG Total CO2 (19-24) mmol/L ABG O2 Saturation (94-97) % BUN (9-20) mg/dL Glucose (74-99) mg/dL POC Glucose (mg/dL) 144 H 112 H (75-99) mg/dL Procalcitonin 3.54 H (0.02-0.09) ng/mL 09/28/20 09/28/20 09/28/20 Range/Units 01:08 04:31 04:31 RBC 3.04 L (4.30-5.90) m/uL Hgb 9.6 L (13.0-17.5) gm/dL Hct 28.8 L (39.0-53.0) % ABG pH (7.35-7.45) ABG pO2 (83-108) mmHg ABG HCO3 (21-25) mmol/L ABG Total CO2 (19-24) mmol/L ABG O2 Saturation (94-97) % BUN 25 H (9-20) mg/dL Glucose 137 H (74-99) mg/dL POC Glucose (mg/dL) 181 H (75-99) mg/dL Procalcitonin (0.02-0.09) ng/mL 09/28/20 09/28/20 Range/Units 05:36 05:58 RBC (4.30-5.90) m/uL Hgb (13.0-17.5) gm/dL Hct (39.0-53.0) % ABG pH 7.54 H (7.35-7.45) ABG pO2 114 H (83-108) mmHg ABG HCO3 30 H (21-25) mmol/L ABG Total CO2 31 H (19-24) mmol/L ABG O2 Saturation 98.8 H (94-97) % BUN (9-20) mg/dL Glucose (74-99) mg/dL POC Glucose (mg/dL) 142 H (75-99) mg/dL Procalcitonin (0.02-0.09) ng/mL Microbiology - Last 24 Hours (Table) 09/27/20 01:57 Gram Stain - Preliminary Sputum Sputum Culture - Preliminary
--- NOTE | 2020-09-28 10:14 | PCN ---
PROCEDURE NOTE PROCEDURE: Right brachial art line. PREOP DIAGNOSIS: Frequent blood draws and blood gas monitoring. POSTOP DIAGNOSIS: Frequent blood draws and blood gas monitoring. OPERATORS: Dr. Hector and Dr. Graf. ARTERIAL LINE PLACEMENT: Indications: Hemodynamic monitoring. A time-out was completed verifying correct patient, procedure, site, positioning, and implant(s) or special equipment if applicable. Wild's test was performed to ensure adequate perfusion. The patient's right brachial area was prepped and draped in sterile fashion. 1% Lidocaine was used to anesthetize the area. An 18G Arrow arterial line was introduced into the brachial artery. The catheter was threaded over the guide wire and the needle was removed with appropriate pulsatile blood return. Blood loss was minimal. The catheter was then sutured in place to the skin and a sterile dressing applied. Perfusion to the extremity distal to the point of catheter insertion was checked and found to be adequate. The patient tolerated the procedure well and there were no immediate complications. There was good waveform and blood pressure readings. The catheter was sutured into place. Sterile dressing was applied. MMODL / IJN: [id number] /
[2020-09-28] MEDS: APIXABAN 5 MG TAB PO SCH ×2 (11:28→20:46)
[2020-09-28] MEDS: ASPIRIN 81 MG PO SCH (11:28)
--- NOTE | 2020-09-28 11:31 | P.PN ---
Subjective Progress Note Date: 09/28/20 Principal diagnosis: Respiratory failure. 65-year-old male who presents to the emergency department, at about 8:00 at night, on September 26. The patient apparently presented for shortness of breath. He apparently was not able to catch breath throughout the day. He apparently also some pain with deep inspiration. There is no fever or chills or cough. There was no chest pain or chest discomfort otherwise. The patient was recently in the hospital between September 20 and September 24. We saw him at that time. The patient was seen by Dr. Rizzo in the emergency department. Unfortunately, the patient developed mellissa respiratory failure car intubation. In addition, the patient had ventricular tachycardia and received cardioversion in the emergency department. The patient was placed on the ventilator, and amiodarone. Currently, he remains on the volume assist control mode, rate 24, tidal volume 450, FiO2 40%, and PEEP of 5. Arterial blood gases show pO2 of 208, pCO2 35, a nd pH is 7.50. Those blood gases were done on 60%. He remains on amiodarone at 1 mg/m, propofol at 40 mcg/kg/m, and norepinephrine at 4 mcg/m. The patient is receiving heparin via weightbase protocol. We will attempt to start tube feeds today. A left subclavian triple-lumen catheter was used. Multiple attempts at placement of an arterial line in the right radial artery, and right femoral art zehra, were unsuccessful. White count 12.6, hemoglobin 8.5, hematocrit 25.3, and platelet count 231,000. PT and INR are normal. PTT was 33.9. Sodium 138, potassium 3.7, chlorides 104, CO2 25, anion gap 9, BUN 34, creatinine 1.26. Chest x-ray shows bilateral lower lobe infiltrates left greater than right, and a properly placed central line. Progress note dated 09/28/2020. 65-year-old male who presented to the emergency department on September 26. He came in complaining of shortness of breath. The patient ended up requiring intubation and mechanical ventilation. He remains on the mechanical ventilator. He is on the volume assist control mode, rate 24, tidal volume or 50, FiO2 40%, and PEEP of 5. FiO2 will be dropped down to 30%. Arterial blood gases show pO2 114, pCO2 35, pH is 7.54. This blood gases consistent with a combined respiratory and metabolic alkalosis. The patient's currently on amiodarone 0.5 mg/m, propofol at 65 mcg/kg/m, and vital high protein at 20 mL an hour, with a goal of 52 mL an hour. We did place a right brachial art line in this patient. Appendectomy white count 9.3, hemoglobin 9.6, hematocrit 28.8, and platelet count 297,000. Sodium 144, potassium 3.7, chlorides 107, CO2 28, anion gap 9, BUN 25, and creatinine 1.08. Chest x-ray suggests left basilar atelectasis. Objective - Vital Signs Vital signs: Vital Signs Temp 97.9 F 09/28/20 04:30 Pulse 54 L 09/28/20 11:20 Resp 24 09/28/20 07:00 BP 112/67 09/28/20 07:00 Pulse Ox 100 09/28/20 07:00 Intake & Output 09/27/20 09/28/20 09/28/20 18:59 06:59 18:59 Intake Total 152.704 746.037 Output Total 1510 2920 Balance -1357.296 -2173.963 Weight 81.1 kg 78.7 kg 78.7 kg Intake: Intake, IV Titration 152.704 606.037 Amount Amiodarone 450 mg In 250 Dextrose 5% in Water 250 ml @ 0.5 MG/MIN 16.667 mls/hr IV .Q15H [facility] Rx#: [id number] Heparin Sod,Pork in 0.45% 52.704 NaCl 25,000 unit In 0.45 % NaCl 1 250ml.bag @ 12 UNITS/KG/HR 9.199 mls/hr IV .Q24H [facility] Rx#: [id number] propofoL 1,000 mg In 100.000 356.037 Empty Bag 1 bag @ Titrate IV .Q0M [facility] Rx#: [id number] Tube Feeding 80 Other 60 Output: Urine 1510 2920 Other: Voiding Method Indwelling Catheter Indwelling Catheter - Exam No acute distress, sedated, with an orally placed endotracheal tube. HEENT examination is grossly unremarkable. Neck supple. Full range of motion. No adenopathy thyromegaly or neck vein distention. Cardiovascular examination reveals regular rhythm rate. S1-S2 normal. No S3 or S4. No discernible murmur noted. Heart rate 54 bpm. Heart sounds are distant. Lungs reveal bilateral scattered rhonchi. No wheezes or crackles. Breath sounds are equal bilaterally. Left subclavian central line is noted. Abdomen soft bowel sounds are heard. No masses or tenderness. Extremities are intact. No cyanosis clubbing or edema. Skin is without rash or lesion. Neurologic examination cannot be adequately assessed as the patient's currently sedated. - Labs CBC & Chem 7: 09/28/20 04:31 09/28/20 04:31 Labs: Abnormal Lab Results - Last 24 Hours (Table) 09/27/20 09/27/20 09/27/20 Range/Units 04:27 11:57 17:46 RBC (4.30-5.90) m/uL Hgb (13.0-17.5) gm/dL Hct (39.0-53.0) % ABG pH (7.35-7.45) ABG pO2 (83-108) mmHg ABG HCO3 (21-25) mmol/L ABG Total CO2 (19-24) mmol/L ABG O2 Saturation (94-97) % BUN (9-20) mg/dL Glucose (74-99) mg/dL POC Glucose (mg/dL) 144 H 112 H (75-99) mg/dL Procalcitonin 3.54 H (0.02-0.09) ng/mL 09/28/20 09/28/20 09/28/20 Range/Units 01:08 04:31 04:31 RBC 3.04 L (4.30-5.90) m/uL Hgb 9.6 L (13.0-17.5) gm/dL Hct 28.8 L (39.0-53.0) % ABG pH (7.35-7.45) ABG pO2 (83-108) mmHg ABG HCO3 (21-25) mmol/L ABG Total CO2 (19-24) mmol/L ABG O2 Saturation (94-97) % BUN 25 H (9-20) mg/dL Glucose 137 H (74-99) mg/dL POC Glucose (mg/dL) 181 H (75-99) mg/dL Procalcitonin (0.02-0.09) ng/mL 09/28/20 09/28/20 Range/Units 05:36 05:58 RBC (4.30-5.90) m/uL Hgb (13.0-17.5) gm/dL Hct (39.0-53.0) % ABG pH 7.54 H (7.35-7.45) ABG pO2 114 H (83-108) mmHg ABG HCO3 30 H (21-25) mmol/L ABG Total CO2 31 H (19-24) mmol/L ABG O2 Saturation 98.8 H (94-97) % BUN (9-20) mg/dL Glucose (74-99) mg/dL POC Glucose (mg/dL) 142 H (75-99) mg/dL Procalcitonin (0.02-0.09) ng/mL Microbiology - Last 24 Hours (Table) 09/27/20 01:57 Gram Stain - Preliminary Sputum Sputum Culture - Preliminary Assessment and Plan Assessment: Acute shortness of breath, with acute hypoxemic respiratory failure, likely multifactorial, in part related to fluid overload, but also possible bilateral pneumonia, status post intubation and mechanical ventilation in the ER, on 09/26/2020. History of CAD, status post bypass grafting, 2019. Ventricular tachycardia, requiring cardioversion in the emergency department. Hypotension, which may be related to underlying sepsis. Probable COPD from previous tobacco use. Recent admission to the hospital from September 20 through September 24, for hypotension, dehydration, and severe metabolic acidosis. History of chronic atrial fibrillation. History of diabetes mellitus. Gastroesophageal reflux disease. Hyperlipidemia. Hypertension. History of myocardial infarction. History of pseudomonas aeruginosa urinary tract infection. History of scrotal abscess. History of chronic back pain. Plan: Plan Dated 09/27/2020. The patient's FiO2 was reduced from 60%, down to 40% this morning, based on his blood gases. In addition, the patient remains on amiodarone, will perform, and norepinephrine, as well as IV heparin. The patient did receive cardioversion in the emergency department for ventricular tachycardia. His chest x-ray suggests fluid overload and/or pneumonia. His overall prognosis is not good. He is not a very healthy chap. We did place a left subclavian triple-lumen catheter. We attempted multiple times to place a right radial art line in right femoral artery art line, but were unsuccessful. Medications are reviewed. Additional recommendations and suggestions are forthcoming. I was told by the ER physician, that the patient was not taking any of his discharge medications he was discharged on September 24. Plan dated 09/28/2020. The patient's FiO2 was dropped from 40 down to 30%. We were able to finally place a right brachial arterial line. The patient remains on amiodarone 0.5 mg/m, and propofol at 65 mcg/kg/m. The patient is receiving nutrition with vital high protein, just not at goal as yet. Additional recommendations and suggestions are forthcoming. A triple-lumen catheter was placed in the left subclavian site yesterday. Additional recommendations and suggestions are forthcoming. Prognosis is guarded. The patient was noncompliant with medications after his last discharge. Time with Patient: Greater than 30
[2020-09-28 11:47] LABS: Glucose,Whole Blood 156 mg/dL (75-99)
--- NOTE | 2020-09-28 14:22 | CDI ---
Documentation Clarification Form Date: 09/28/2020 02:08:41 PM From: Mary James CCS, CCDS Admit Date: 09/26/2020 10:45:00 PM Patient Name: Ashok Austin Visit Number: [id number] Discharge Date: ATTENTION: The Clinical Documentation Specialists (CDI) and [facility] Coding Staff appreciate your assistance in clarifying documentation. Please respond to the clarification below the line at the bottom and electronically sign. The CDI & [facility] Coding staff will review the response and follow-up if needed. Please note: Queries are made part of the Legal Health Record. If you have any questions, please contact the author of this message via ITS. Dr. Puma Lovell: Sepsis is documented by the Pulmonary/Critical Care Physician in the 09/27 Consult and subsequent 09/28 Progress Note. Sepsis is not documented by the Attending Physician. Additional clarification regarding the documentation of sepsis is requested. History/Risk Factors per the 09/27 H/P: CAD, AK status post CABG on 07/2019, Atrial Fibrillation, UTI with Pseudomonas aeruginosa, Ischemic Cardiomyopathy, IDDM II, Hypertensive Heart Disease and Heart Failure, GERD, Chronic Lower Back Pain. Previous episode of Sepsis due to Right Scrotal Abscess. Clinical Indicators: Presented to the ED on 09/26 with SOB requiring Intubation in the ED. In Atrial Fibrillation with RVR and Cardioverted in the ED. ED Clinical Impression: CHF, Acute pulmonary edema, NSTEMI, CAD, Atrial Fibrillation w/RVR and Ventricular Tachycardia. Per the 09/27 H/P the patient was recently admitted, last week, with Hypovolemic Shock & MATHEUS secondary to Vomiting & Diarrhea, treated with IV fluids and discharged to home. Apparently not taking his prescribed medications. 09/26 VS: T 97.9, P 85 - 121, R 24 (SOB, labored), BP 154/80 - 169/112; PO 96 RA - 94 2Lnc - 100% vent. BMI: 27.2 09/26 LAB: WBC 12.4, Hgb 10.6, Neut 9.6, [place] 1.2, BUN 32, Cr 1.34, Glucose 155, Lactic Acid 2.3 - 2.8; AST 66, Alk Phos 305, Troponin 0.465, BNP 15,800, T Prot 6.0, Albumin 3.4 Bl Gas: ABG pH 7.21, pCO2 52, pO2 147, O2 Sat 98.4 09/26 CXR: There is pulmonary edema which is new compared to old exam and could be acute heart failure. Endotracheal tube is low and should BE pulled back 2 to 3 cm. The nasogastric tube appears to be in the distal esophagus. Treatment 09/26 Intubation, Central Line, Arterial Line, NGT, IV Vasopressors, INH Albuterol, IV Na Cl 500 mls @ 999 mls/hr q31M, IV Amidate, IV Zemuron, IV Dextrose/Water w/Amiodarone, IV Cardizem Drip Bolus, IV Cardizem, IV Versed, IV heparin, IV Propofol, IV Ativan, IV Levophed 09/28 IV Rocephin 50 mls @ 100 mls/hr q24H In your professional opinion, please clarify if these findings signify one of the following conditions: [ ] Sepsis POA [ ] Sepsis, Not POA [ ] Sepsis ruled out [ ] Severe Sepsis with organ failure [ ] Septic Shock [ ] Other, please specify [ ] Unable to determine (Template Last Reviewed: April 2020) Sepsis POA MTDD
--- NOTE | 2020-09-28 16:57 | P.PN ---
Subjective Progress Note Date: 09/28/20 Ashok Austin is a 65 yo M with past medical history significant for hypertension, hyperlipidemia, paroxysmal atrial fibrillation, congestive heart failure, ischemic cardiac myopathy, and coronary artery disease with stenting and CABG x 3 in July 2019. He was recently admitted last week with hypovolemic shock and MATHEUS secondary to vomiting and diarrhea, he was treated at that time with IV fluids and discharged home. Apparently pt had not taken his prescribed medications after discharge. Patient presented to the ER with shortness of breath. He was intubated in the emergency room. Patient was found to be in A. fib with RVR. Patient was cardioverted by the emergency room physician. He was noted on CXR to have emelina lower lobe infiltrates. WBC 12.6k, Cr 1.26, procalcitonin 3.5. Patient was examined this morning at the bedside in the intensive care unit. Patient is on amiodarone drip. Patient was on levophed this morning which has been weaned off. Patient is on IV heparin. 09/28/2020 remains vent dependent, FiO2 30%/+5 of PEEP. Chest x-ray reporting left basilar atelectasis. Maintained on diprovan, amiodarone drips. ABGs noted. Tolerating tube feeds at 52 MLS per hour, with minimal to no residual. Afebrile, normal WBC. Renal function improving. Blood sugars controlled. Objective - Vital Signs Vital signs: Vital Signs Temp 97.6 F 09/28/20 12:00 Pulse 73 09/28/20 15:53 Resp 25 H 09/28/20 15:00 BP 141/79 09/28/20 15:00 Pulse Ox 98 09/28/20 15:00 Intake & Output 09/27/20 09/28/20 09/28/20 18:59 06:59 18:59 Intake Total 152.704 746.037 176.068 Output Total 1510 2920 Balance -1357.296 -2173.963 176.068 Weight 81.1 kg 78.7 kg 78.7 kg Intake: Intake, IV Titration 152.704 606.037 176.068 Amount Amiodarone 450 mg In 250 Dextrose 5% in Water 250 ml @ 0.5 MG/MIN 16.667 mls/hr IV .Q15H [facility] Rx#: [id number] Heparin Sod,Pork in 0.45% 52.704 NaCl 25,000 unit In 0.45 % NaCl 1 250ml.bag @ 12 UNITS/KG/HR 9.199 mls/hr IV .Q24H [facility] Rx#: [id number] propofoL 1,000 mg In 100.000 356.037 176.068 Empty Bag 1 bag @ Titrate IV .Q0M [facility] Rx#: [id number] Tube Feeding 80 Other 60 Output: Urine 1510 2920 Other: Voiding Method Indwelling Catheter Indwelling Catheter Indwelling Catheter ABP, PAP, CO, CI - Last Documented Arterial Blood Pressure 142/60 - Exam General: well developed, intubated, sedated. Vitals reviewed HEENT: Conjunctiva normal, eyes normal Neck: Supple, no JVD CV: RRR, no murmur Lungs: intubated, clear breath sounds Abd: soft, non distended, bowel sounds present Neuro: Intubated, sedated on propofol Skin: warm and dry Microbiology 09/27/20 01:57 Sputum Gram Stain - Preliminary 09/27/20 01:57 Sputum Sputum Culture - Preliminary - Labs CBC & Chem 7: 09/28/20 04:31 09/28/20 04:31 Labs: Abnormal Lab Results - Last 24 Hours (Table) 09/27/20 09/27/20 09/28/20 Range/Units 04:27 17:46 01:08 RBC (4.30-5.90) m/uL Hgb (13.0-17.5) gm/dL Hct (39.0-53.0) % ABG pH (7.35-7.45) ABG pO2 (83-108) mmHg ABG HCO3 (21-25) mmol/L ABG Total CO2 (19-24) mmol/L ABG O2 Saturation (94-97) % BUN (9-20) mg/dL Glucose (74-99) mg/dL POC Glucose (mg/dL) 112 H 181 H (75-99) mg/dL Procalcitonin 3.54 H (0.02-0.09) ng/mL 09/28/20 09/28/20 09/28/20 Range/Units 04:31 04:31 05:36 RBC 3.04 L (4.30-5.90) m/uL Hgb 9.6 L (13.0-17.5) gm/dL Hct 28.8 L (39.0-53.0) % ABG pH 7.54 H (7.35-7.45) ABG pO2 114 H (83-108) mmHg ABG HCO3 30 H (21-25) mmol/L ABG Total CO2 31 H (19-24) mmol/L ABG O2 Saturation 98.8 H (94-97) % BUN 25 H (9-20) mg/dL Glucose 137 H (74-99) mg/dL POC Glucose (mg/dL) (75-99) mg/dL Procalcitonin (0.02-0.09) ng/mL 09/28/20 09/28/20 Range/Units 05:58 11:46 RBC (4.30-5.90) m/uL Hgb (13.0-17.5) gm/dL Hct (39.0-53.0) % ABG pH (7.35-7.45) ABG pO2 (83-108) mmHg ABG HCO3 (21-25) mmol/L ABG Total CO2 (19-24) mmol/L ABG O2 Saturation (94-97) % BUN (9-20) mg/dL Glucose (74-99) mg/dL POC Glucose (mg/dL) 142 H 156 H (75-99) mg/dL Procalcitonin (0.02-0.09) ng/mL Microbiology - Last 24 Hours (Table) 09/27/20 01:57 Gram Stain - Preliminary Sputum Sputum Culture - Preliminary Assessment and Plan Assessment: Acute hypoxic respiratory failure multifactorial, secondary to possible underlying bilateral pneumonia, fluid overload, mechanical ventilator-dependent Ventricular tachycardia status post cardioversion in the ER Possible Sepsis, present on admission, related to the above, secondary to patient noncompliance with med regimen that he recently was discharged on 09/24. Hypotension secondary to the above A. fib with RVRIn a patient with history of chronic atrial fibrillation Diabetes mellitus type II CAD, history of MS, CABG Ischemic cardiomyopathy, EF 40-45% Gastroesophageal reflux disease Plan: Continue on current medication regime ,monitoring and symptomatic treatment. Continue on nebulized bronchodilators, antibiotics. ICU management as per outbound call center representative. Antiarrhythmics as per cardiology. Anticoagulated on Eliquis. Close monitoring of blood sugars, patient on tube feeds. The impression and plan of care has been dictated as directed. : I performed a history and examination of this patient, discussed the same with the dictator. I agree with the dictator's note ,documented as a scribe. Any additional findings or plans will be noted.
[2020-09-28 17:06] LABS: Glucose,Whole Blood 164 mg/dL (75-99)
[2020-09-28] MEDS: NOREPINEPHRINE 4 MG in SODIUM CHLORIDE 0.9% 250 ML IV SCH (17:25)
[2020-09-28] MEDS: PANTOPRAZOLE 40 MG/10 ML VIAL IVP SCH (18:13)
[2020-09-28 23:26] LABS: Glucose,Whole Blood 216 mg/dL (75-99)
[2020-09-29 02:08] LABS: Basophils % (A) 0 %; Eosinophils # (A) 0.1 k/uL (0-0.7); Eosinophils % (A) 1 %; HCT 26.6 % (39.0-53.0); Lymphocytes % (A) 12 %; MCH 31.7 pg (25.0-35.0); MCHC 33.7 g/dL (31.0-37.0); MCV 94.1 fL (80.0-100.0); Mean Platelet Volume 7.2; Monocytes # (A) 0.6 k/uL (0-1.0); Monocytes % (A) 8 %; Neutrophils # (A) 6.6 k/uL (1.3-7.7); Neutrophils % (A) 78 %; Platelet Count 310 k/uL (150-450); RBC 2.82 m/uL (4.30-5.90); RDW 14.3 % (11.5-15.5); WBC 8.5 k/uL (3.8-10.6)
[2020-09-29 02:43] LABS: African American GFR (CKD) >90 (>60 ml/min/1.73 sqM); Anion Gap 5 mmol/L; Blood Urea Nitrogen 21 mg/dL (9-20); Calcium 8.6 mg/dL (8.4-10.2); Carbon Dioxide 28 mmol/L (22-30); Chloride 109 mmol/L (98-107); Glucose 140 mg/dL (74-99); Non-African American GFR(CKD) 88 (>60 ml/min/1.73 sqM); Potassium 3.7 mmol/L (3.5-5.1); Sodium 142 mmol/L (137-145)
[2020-09-29] MEDS: IPRATROPIUM-ALBUTEROL 3 ML NEB INHALATION SCH ×5 (03:01→20:50)
[2020-09-29] MEDS ORDERED: POTASSIUM BICARBONATE/CIT AC 20 MEQ TABLET.EFF NG-TUBE SCH (04:00)
[2020-09-29 04:58] LABS: ABG Base Excess 4.6 mmol/L; ABG HCO3 27 mmol/L (21-25); ABG Oxygen Saturation 95.3 % (94-97); ABG PCO2 32 mmHg (35-45); ABG PH 7.54 (7.35-7.45); ABG PO2 70 mmHg (83-108); ABG TCO2 28 mmol/L (19-24)
[2020-09-29 05:16] LABS: Glucose,Whole Blood 190 mg/dL (75-99)
[2020-09-29] MEDS: INSULIN ASPART (NovoLOG) 100 UNIT/ML VIAL SQ SCH ×4 (05:29→23:03)
[2020-09-29 05:35] LABS: Allen Test Performed? no
[2020-09-29] MEDS ORDERED: CHLORHEXIDINE GLUCONATE 15 ML CUP MUCOUS MEM ONE (09:23)
[2020-09-29] MEDS: NOREPINEPHRINE 4 MG in SODIUM CHLORIDE 0.9% 250 ML IV SCH ×2 (09:27→23:39)
[2020-09-29] MEDS: APIXABAN 5 MG TAB PO SCH ×2 (09:27→20:37)
[2020-09-29] MEDS: ASPIRIN 81 MG PO SCH (09:27)
[2020-09-29 09:45] LABS: ABG HCO3 25 mmol/L (21-25); ABG Oxygen Saturation 97.2 % (94-97); ABG PCO2 27 mmHg (35-45); ABG PO2 83 mmHg (83-108); ABG TCO2 26 mmol/L (19-24)
[2020-09-29 09:47] LABS: ABG PH 7.57 (7.35-7.45); Allen Test Performed? no
--- NOTE | 2020-09-29 10:16 | P.PN ---
Subjective Progress Note Date: 09/29/20 Principal diagnosis: Respiratory failure. 65-year-old male who presents to the emergency department, at about 8:00 at night, on September 26. The patient apparently presented for shortness of breath. He apparently was not able to catch breath throughout the day. He apparently also some pain with deep inspiration. There is no fever or chills or cough. There was no chest pain or chest discomfort otherwise. The patient was recently in the hospital between September 20 and September 24. We saw him at that time. The patient was seen by Dr. Rizzo in the emergency department. Unfortunately, the patient developed mellissa respiratory failure car intubation. In addition, the patient had ventricular tachycardia and received cardioversion in the emergency department. The patient was placed on the ventilator, and amiodarone. Currently, he remains on the volume assist control mode, rate 24, tidal volume 450, FiO2 40%, and PEEP of 5. Arterial blood gases show pO2 of 208, pCO2 35, a nd pH is 7.50. Those blood gases were done on 60%. He remains on amiodarone at 1 mg/m, propofol at 40 mcg/kg/m, and norepinephrine at 4 mcg/m. The patient is receiving heparin via weightbase protocol. We will attempt to start tube feeds today. A left subclavian triple-lumen catheter was used. Multiple attempts at placement of an arterial line in the right radial artery, and right femoral art zehra, were unsuccessful. White count 12.6, hemoglobin 8.5, hematocrit 25.3, and platelet count 231,000. PT and INR are normal. PTT was 33.9. Sodium 138, potassium 3.7, chlorides 104, CO2 25, anion gap 9, BUN 34, creatinine 1.26. Chest x-ray shows bilateral lower lobe infiltrates left greater than right, and a properly placed central line. Progress note dated 09/28/2020. 65-year-old male who presented to the emergency department on September 26. He came in complaining of shortness of breath. The patient ended up requiring intubation and mechanical ventilation. He remains on the mechanical ventilator. He is on the volume assist control mode, rate 24, tidal volume or 50, FiO2 40%, and PEEP of 5. FiO2 will be dropped down to 30%. Arterial blood gases show pO2 114, pCO2 35, pH is 7.54. This blood gases consistent with a combined respiratory and metabolic alkalosis. The patient's currently on amiodarone 0.5 mg/m, propofol at 65 mcg/kg/m, and vital high protein at 20 mL an hour, with a goal of 52 mL an hour. We did place a right brachial art line in this patient. Appendectomy white count 9.3, hemoglobin 9.6, hematocrit 28.8, and platelet count 297,000. Sodium 144, potassium 3.7, chlorides 107, CO2 28, anion gap 9, BUN 25, and creatinine 1.08. Chest x-ray suggests left basilar atelectasis. Progress note dated 09/29/2020. 65-year-old male who presented to the emergency department on September 26 complaining of shortness of breath. The patient developed mellissa respiratory failure and required intubation and mechanical ventilation. Currently, he's on the volume assist control, rate 24, tidal volume 450, FiO2 30%, and PEEP of 5. Arterial blood gases show a PaO2 of 70, PaCO2 32, and a pH is 7.54. Blood gases are consistent with combined respiratory and metabolic alkalosis. The patient's currently on propofol at 70 mcg/kg/m, amiodarone at 0.5 mg/m, and saline at 10 mL an hour. The patient's also receiving vital high protein at 30 mL an hour. We will do a daily interruption of sedation, and a spontaneous breathing trial on this patient. White count 8.5, hemoglobin 9, hematocrit 26.6, and platelet count 310,000. Sodium 142, potassium 3.7, chlorides 109, CO2 28, anion gap 5, BUN 21, and creatinine 0.92. Chest x-ray today looks relatively normal. I've asked the nurses to go ahead and get a full set a weaning parameters, and a cuff leak test, as well as a rapid shallow breathing index. Objective - Vital Signs Vital signs: Vital Signs Temp 98.8 F 09/29/20 04:00 Pulse 76 09/29/20 09:00 Resp 25 H 09/29/20 09:00 BP 120/73 09/29/20 07:00 Pulse Ox 97 09/29/20 10:04 Intake & Output 09/28/20 09/29/20 09/29/20 18:59 06:59 18:59 Intake Total 158.238 3482.701 244.928 Output Total 1570 1505 375 Balance -802.000 -326.299 -130.072 Weight 78.7 kg 78.7 kg Intake: IV 160 120 20 0.9 @ 10 110 120 20 cefTRIAXone 1 gm In 50 Sodium Chloride 0.9% 50 ml @ 100 mls/hr IVPB Q24HR [facility] Rx#:[id number] Intake, IV Titration 508.000 524.701 156.928 Amount Amiodarone 450 mg In 215.838 Dextrose 5% in Water 250 ml @ 0.5 MG/MIN 16.667 mls/hr IV .Q15H [facility] Rx#: [id number] Norepinephrine 4 mg In 254 Sodium Chloride 0.9% 250 ml @ 0.05 MCG/KG/MIN 15. 45 mls/hr IV .[id number] [facility] Rx#:[id number] propofoL 1,000 mg In 292.162 270.701 156.928 Empty Bag 1 bag @ Titrate IV .Q0M [facility] Rx#: [id number] Tube Feeding 70 414 38 Other 30 120 30 Output: Urine 1570 1505 375 Other: Voiding Method Indwelling Catheter Indwelling Catheter Indwelling Catheter ABP, PAP, CO, CI - Last Documented Arterial Blood Pressure 118/48 - Exam No acute distress, sedated, with an orally placed endotracheal tube. HEENT examination is grossly unremarkable. Neck supple. Full range of motion. No adenopathy thyromegaly or neck vein distention. Cardiovascular examination reveals regular rhythm rate. S1-S2 normal. No S3 or S4. No discernible murmur noted. Heart rate 76 bpm. Heart sounds are distant. Lungs reveal bilateral scattered rhonchi. No wheezes or crackles. Breath sounds are equal bilaterally. Left subclavian central line is noted. Abdomen soft bowel sounds are heard. No masses or tenderness. Extremities are intact. No cyanosis clubbing or edema. Skin is without rash or lesion. Neurologic examination cannot be adequately assessed as the patient's currently sedated. - Labs CBC & Chem 7: 09/29/20 01:42 09/29/20 01:42 Labs: Abnormal Lab Results - Last 24 Hours (Table) 09/28/20 09/28/20 09/28/20 Range/Units 11:46 17:05 23:24 RBC (4.30-5.90) m/uL Hgb (13.0-17.5) gm/dL Hct (39.0-53.0) % ABG pH (7.35-7.45) ABG pCO2 (35-45) mmHg ABG pO2 (83-108) mmHg ABG HCO3 (21-25) mmol/L ABG Total CO2 (19-24) mmol/L ABG O2 Saturation (94-97) % Chloride (98-107) mmol/L BUN (9-20) mg/dL Glucose (74-99) mg/dL POC Glucose (mg/dL) 156 H 164 H 216 H (75-99) mg/dL 09/29/20 09/29/20 09/29/20 Range/Units 01:42 01:42 04:56 RBC 2.82 L (4.30-5.90) m/uL Hgb 9.0 L (13.0-17.5) gm/dL Hct 26.6 L (39.0-53.0) % ABG pH 7.54 H (7.35-7.45) ABG pCO2 32 L (35-45) mmHg ABG pO2 70 L (83-108) mmHg ABG HCO3 27 H (21-25) mmol/L ABG Total CO2 28 H (19-24) mmol/L ABG O2 Saturation (94-97) % Chloride 109 H (98-107) mmol/L BUN 21 H (9-20) mg/dL Glucose 140 H (74-99) mg/dL POC Glucose (mg/dL) (75-99) mg/dL 09/29/20 09/29/20 Range/Units 05:15 09:43 RBC (4.30-5.90) m/uL Hgb (13.0-17.5) gm/dL Hct (39.0-53.0) % ABG pH 7.57 H* (7.35-7.45) ABG pCO2 27 L (35-45) mmHg ABG pO2 (83-108) mmHg ABG HCO3 (21-25) mmol/L ABG Total CO2 26 H (19-24) mmol/L ABG O2 Saturation 97.2 H (94-97) % Chloride (98-107) mmol/L BUN (9-20) mg/dL Glucose (74-99) mg/dL POC Glucose (mg/dL) 190 H (75-99) mg/dL Microbiology - Last 24 Hours (Table) 09/27/20 01:57 Gram Stain - Final Sputum Sputum Culture - Final Assessment and Plan Assessment: Acute shortness of breath, with acute hypoxemic respiratory failure, likely multifactorial, in part related to fluid overload, but also possible bilateral pneumonia, status post intubation and mechanical ventilation in the ER, on 09/26/2020. History of CAD, status post bypass grafting, 2019. Ventricular tachycardia, requiring cardioversion in the emergency department. Hypotension, which may be related to underlying sepsis. Probable COPD from previous tobacco use. Recent admission to the hospital from September 20 through September 24, for hypotension, dehydration, and severe metabolic acidosis. History of chronic atrial fibrillation. History of diabetes mellitus. Gastroesophageal reflux disease. Hyperlipidemia. Hypertension. History of myocardial infarction. History of pseudomonas aeruginosa urinary tract infection. History of scrotal abscess. History of chronic back pain. Plan: Plan Dated 09/27/2020. The patient's FiO2 was reduced from 60%, down to 40% this morning, based on his blood gases. In addition, the patient remains on amiodarone, will perform, and norepinephrine, as well as IV heparin. The patient did receive cardioversion in the emergency department for ventricular tachycardia. His chest x-ray suggests fluid overload and/or pneumonia. His overall prognosis is not good. He is not a very healthy chap. We did place a left subclavian triple-lumen catheter. We attempted multiple times to place a right radial art line in right femoral artery art line, but were unsuccessful. Medications are reviewed. Additional recommendations and suggestions are forthcoming. I was told by the ER physician, that the patient was not taking any of his discharge medications he was discharged on September 24. Plan dated 09/28/2020. The patient's FiO2 was dropped from 40 down to 30%. We were able to finally place a right brachial arterial line. The patient remains on amiodarone 0.5 mg/m, and propofol at 65 mcg/kg/m. The patient is receiving nutrition with vital high protein, just not at goal as yet. Additional recommendations and suggestions are forthcoming. A triple-lumen catheter was placed in the left subclavian site yesterday. Additional recommendations and suggestions are forthcoming. Prognosis is guarded. The patient was noncompliant with medications after his last discharge. Plan dated 09/29/2020. The patient will have a daily interruption of sedation today. We will attempt a spontaneous breathing trial, with pressure support of 5 and CPAP of 5. Currently, the patient remains on propofol at 70 mcg/kg/m, and amiodarone at 0.5 mg/m. The patient's chest x-ray looks relatively normal. His gas exchange is very guarded. He does have a combined respiratory and metabolic alkalosis. The patient may be a candidate for weaning today. Additional recommendations and suggestions are forthcoming. We will continue to follow and make suggestions and/or recommendations where appropriate. Time with Patient: Greater than 30
--- NOTE | 2020-09-29 10:27 | XR ---
EXAMINATION TYPE: XR chest 1V portable DATE OF EXAM: 09/29/2020 COMPARISON: 09/28/2020 HISTORY: Respiratory failure TECHNIQUE: Single frontal view of the chest is obtained. FINDINGS: Stable enteric tube, nasogastric tube and left central venous catheter. Bilateral interstitial opacities, decreased. Cardiomediastinal silhouette within normal limit with stable postsurgical changes. No acute osseous abnormality. IMPRESSION: 1. Stable lines and tubes. 2. Decreasing bilateral opacities.
[2020-09-29] MEDS: PANTOPRAZOLE 40 MG/10 ML VIAL IVP SCH (10:29)
[2020-09-29] MEDS ORDERED: HALOPERIDOL LACTATE 5 MG/ML 1 ML VIAL IVP PRN ×2 (10:53)
[2020-09-29 12:18] LABS: Glucose,Whole Blood 217 mg/dL (75-99)
--- NOTE | 2020-09-29 12:54 | P.PN ---
Progress Note - Text Patient was extubated this morning Pulse rate in the 70s, respirations still 26/m Blood pressure 131/51 mmHg Labs are reviewed hemoglobin 9.0, white count 8.5 Sodium 142, potassium 3.7, BUN 21 and creatinine 0.92 Impression Hypertension Dyslipidemia atrial fibrillation Ischemic or myopathy Coronary artery disease status post coronary artery bypass grafting and PCI The rest is seen for A. fib with RVR during his acute respiratory failure He underwent electrical cardioversion for A. fib with RVR Left ventricular ejection fraction 50% suggest Continue IV amiodarone for now and once he is able to swallow he was started his cardiac medications orally I plan to use amiodarone only short term Tomorrow we will start resuming his home medications as tolerated Start atorvastatin today
[2020-09-29] MEDS: AMIODARONE 450 MG in DEXTROSE 5% IN WATER 250 ML IV SCH ×2 (14:22)
[2020-09-29] MEDS ORDERED: HYDROmorphone 1 MG/ML 1 ML SYRINGE IVP STA (14:25)
[2020-09-29 18:00] LABS: Glucose,Whole Blood 203 mg/dL (75-99)
[2020-09-29] MEDS: HYDROmorphone 0.5 MG/0.5 ML SYRINGE IVP PRN (22:56)
[2020-09-29 23:01] LABS: Glucose,Whole Blood 153 mg/dL (75-99)
--- NOTE | 2020-09-30 00:36 | P.PN ---
Subjective Progress Note Date: 09/29/20 Principal diagnosis: Acute Hypoxic Respiratory failure Mr. Austin is a 65-year-old male with a past medical history of atrial fibrillation, coronary artery disease, diabetes mellitus, GERD, hypertension, hyperlipidemia admitted for the chief complaint of difficulty in breathing. Patient was found to have ventricular tachycardia and had cardioversion done in the emergency department. Eventually patient went into respiratory failure so he has been intubated and admitted to the ICU. On 09/29/2020-patient was seen and examined in the ICU. Patient was successfully extubated around 10 AM. Patient seems to be uncomfortable tossing and turning in the bed. He seems to be confused. He states that he has chronic low back pain and takes OxyContin for pain. He is not sure where he is currently but thinks he is in a hospital setting. Review of systems could not be done as the patient is confused. On reviewing the vitals patient has been afebrile heart rate between 90s 200s, respiratory rate 20s to 25, blood pressure 170/90, saturating at 98% on room air. On reviewing the labs from this morning white count of 8.5, hemoglobin 9, platelets 310. Sodium 142, potassium 3.7, chloride 109, bicarb 28, BUN 21, creatinine 0.92. Active Medications Albuterol/Ipratropium (Ipratropium-Albuterol 3 Ml Neb) 3 ml INHALATION RT-Q2H PRN PRN Reason: Shortness Of Breath Or Wheezing Albuterol/Ipratropium (Ipratropium-Albuterol 3 Ml Neb) 3 ml INHALATION RT-QID [facility] Apixaban (Apixaban 5 Mg Tab) 5 mg PO BID [facility]; Protocol Last Admin: 09/29/20 20:37 Dose: 5 mg Documented by: Aspirin (Aspirin 81 Mg) 81 mg PO DAILY [facility] Last Admin: 09/29/20 09:27 Dose: Not Given Documented by: Atorvastatin Calcium (Atorvastatin 40 Mg Tab) 40 mg PO DAILY [facility] Haloperidol Lactate (Haloperidol Lactate 5 Mg/Ml 1 Ml Vial) 4 mg IVP Q4HR PRN PRN Reason: Agitation or Acute Psychosis Haloperidol Lactate (Haloperidol Lactate 5 Mg/Ml 1 Ml Vial) 8 mg IVP Q4HR PRN PRN Reason: Agitation or Acute Psychosis Last Admin: 09/29/20 11:13 Dose: 8 mg Documented by: Hydromorphone HCl (Hydromorphone 0.5 Mg/0.5 Ml Syringe) 0.5 mg IVP Q6HR PRN PRN Reason: Pain Last Admin: 09/29/20 22:56 Dose: 0.5 mg Documented by: Propofol 1,000 mg/ IV Solution 100 mls @ 0 mls/hr IV .Q0M [facility]; Protocol Last Titration: 09/29/20 09:05 Dose: 30 mcg/kg/min, 14.166 mls/hr Documented by: Norepinephrine Bitartrate 4 mg (/ Sodium Chloride) 254 mls @ 15.45 mls/hr IV .[id number] [facility]; Protocol Last Admin: 09/29/20 23:39 Dose: Not Given Documented by: Amiodarone HCl 450 mg/ (Dextrose/Water) 250 mls @ 16.667 mls/hr IV .Q15H [facility] Last Admin: 09/29/20 14:22 Dose: Not Given Documented by: Ceftriaxone Sodium 1 gm/ (Sodium Chloride) 50 mls @ 100 mls/hr IVPB Q24HR [facility] Last Admin: 09/29/20 11:12 Dose: 100 mls/hr Documented by: Insulin Aspart (Insulin Aspart (Novolog) 100 Unit/Ml Vial) 0 unit SQ Q6HR [facility]; Protocol Last Admin: 09/29/20 23:03 Dose: 1 unit Documented by: Miscellaneous Information (Potassium Replacement Protocol 1 Each Misc) 1 each MISCELLANE DAILY PRN; Protocol PRN Reason: Per Protocol Naloxone HCl (Naloxone 0.4 Mg/Ml 1 Ml Vial) 0.2 mg IV Q2M PRN PRN Reason: Opioid Reversal Oxycodone HCl (Oxycodone Hcl 5 Mg Tab) 10 mg PO TID PRN PRN Reason: Pain Last Admin: 09/29/20 21:49 Dose: 10 mg Documented by: Pantoprazole Sodium (Pantoprazole 40 Mg/10 Ml Vial) 40 mg IVP DAILY [facility] Last Admin: 09/29/20 10:29 Dose: Not Given Documented by: Objective - Vital Signs Vital signs: Vital Signs Temp 98.8 F 09/29/20 04:00 Pulse 96 09/29/20 15:00 Resp 15 09/29/20 15:00 BP 162/92 09/29/20 11:00 Pulse Ox 90 L 09/29/20 15:00 Intake & Output 09/28/20 09/29/20 09/29/20 18:59 06:59 18:59 Intake Total 079.106 5336.701 304.928 Output Total 1570 1505 925 Balance -802.000 -326.299 -620.072 Weight 78.7 kg 78.7 kg Intake: IV 160 120 80 0.9 @ 10 110 120 80 cefTRIAXone 1 gm In 50 Sodium Chloride 0.9% 50 ml @ 100 mls/hr IVPB Q24HR [facility] Rx#:[id number] Intake, IV Titration 508.000 524.701 156.928 Amount Amiodarone 450 mg In 215.838 Dextrose 5% in Water 250 ml @ 0.5 MG/MIN 16.667 mls/hr IV .Q15H [facility] Rx#: [id number] Norepinephrine 4 mg In 254 Sodium Chloride 0.9% 250 ml @ 0.05 MCG/KG/MIN 15. 45 mls/hr IV .[id number] [facility] Rx#:[id number] propofoL 1,000 mg In 292.162 270.701 156.928 Empty Bag 1 bag @ Titrate IV .Q0M [facility] Rx#: [id number] Tube Feeding 70 414 38 Other 30 120 30 Output: Urine 1570 1505 925 Other: Voiding Method Indwelling Catheter Indwelling Catheter Indwelling Catheter ABP, PAP, CO, CI - Last Documented Arterial Blood Pressure 147/56 - Exam PHYSICAL EXAMINATION: GENERAL: The patient is awake, confused , complaining of low back pain. HEENT: Pupils are round and equally reacting to light. EOMI. No scleral icterus. No conjunctival pallor. CARDIOVASCULAR: S1 and S2 present. No murmurs, rubs, or gallops. PULMONARY: Chest is clear to auscultation, no wheezing or crackles. ABDOMEN: Soft, nontender, nondistended, normoactive bowel sounds. No palpable organomegaly. MUSCULOSKELETAL: No joint swelling or deformity. EXTREMITIES: No edema NEUROLOGICAL: Gross neurological examination did not reveal any focal deficits. SKIN:No rash - Labs CBC & Chem 7: 09/29/20 01:42 09/29/20 01:42 Labs: Abnormal Lab Results - Last 24 Hours (Table) 09/28/20 09/28/20 09/29/20 Range/Units 17:05 23:24 01:42 RBC 2.82 L (4.30-5.90) m/uL Hgb 9.0 L (13.0-17.5) gm/dL Hct 26.6 L (39.0-53.0) % ABG pH (7.35-7.45) ABG pCO2 (35-45) mmHg ABG pO2 (83-108) mmHg ABG HCO3 (21-25) mmol/L ABG Total CO2 (19-24) mmol/L ABG O2 Saturation (94-97) % Chloride (98-107) mmol/L BUN (9-20) mg/dL Glucose (74-99) mg/dL POC Glucose (mg/dL) 164 H 216 H (75-99) mg/dL 09/29/20 09/29/20 09/29/20 Range/Units 01:42 04:56 05:15 RBC (4.30-5.90) m/uL Hgb (13.0-17.5) gm/dL Hct (39.0-53.0) % ABG pH 7.54 H (7.35-7.45) ABG pCO2 32 L (35-45) mmHg ABG pO2 70 L (83-108) mmHg ABG HCO3 27 H (21-25) mmol/L ABG Total CO2 28 H (19-24) mmol/L ABG O2 Saturation (94-97) % Chloride 109 H (98-107) mmol/L BUN 21 H (9-20) mg/dL Glucose 140 H (74-99) mg/dL POC Glucose (mg/dL) 190 H (75-99) mg/dL 09/29/20 09/29/20 Range/Units 09:43 12:06 RBC (4.30-5.90) m/uL Hgb (13.0-17.5) gm/dL Hct (39.0-53.0) % ABG pH 7.57 H* (7.35-7.45) ABG pCO2 27 L (35-45) mmHg ABG pO2 (83-108) mmHg ABG HCO3 (21-25) mmol/L ABG Total CO2 26 H (19-24) mmol/L ABG O2 Saturation 97.2 H (94-97) % Chloride (98-107) mmol/L BUN (9-20) mg/dL Glucose (74-99) mg/dL POC Glucose (mg/dL) 217 H (75-99) mg/dL Microbiology - Last 24 Hours (Table) 09/27/20 01:57 Gram Stain - Final Sputum Sputum Culture - Final Assessment and Plan Assessment: ASSESSMENT Acute hypoxic respiratory failure-pulmonary edema, possible pneumonia status post extubation 09/29/2020 Ventricular tachycardia status post cardioversion currently in sinus rhythm History of coronary artery disease status post CABG History of chronic atrial fibrillation Probable COPD History of diabetes mellitus Hypertension Hyperlipidemia GERD History of chronic low back pain History of right scrotal abscess with sepsis History of UTI with Pseudomonas Former smoker Occasional marijuana use Plan: Patient has been successfully extubated earlier this morning. He still confused and complaining of back pain and mentions that he takes oxycodone at home. We will start the patient on Dilaudid for pain. Continue with ceftriaxone for possible pneumonia. Patient is being continued on IV amiodarone until he is able to tolerate p.o. Continue with the rest of his current medication regimen. Further recommendations to follow depending on the progress of the patient.
[2020-09-30] MEDS: AMIODARONE 450 MG in DEXTROSE 5% IN WATER 250 ML IV SCH ×4 (01:34→21:30)
[2020-09-30 04:56] LABS: Basophils # (A) 0.1 k/uL (0-0.2); Basophils % (A) 0 %; Eosinophils # (A) 0.1 k/uL (0-0.7); Eosinophils % (A) 1 %; HCT 32.5 % (39.0-53.0); HGB 10.6 gm/dL (13.0-17.5); Lymphocytes # (A) 1.4 k/uL (1.0-4.8); Lymphocytes % (A) 10 %; MCHC 32.6 g/dL (31.0-37.0); Mean Platelet Volume 7.1; Monocytes # (A) 0.7 k/uL (0-1.0); Monocytes % (A) 5 %; Neutrophils % (A) 82 %; Platelet Count 340 k/uL (150-450); RBC 3.42 m/uL (4.30-5.90); RDW 14.4 % (11.5-15.5); WBC 13.4 k/uL (3.8-10.6)
[2020-09-30 05:23] LABS: ALT 25 U/L (4-49); AST 27 U/L (17-59); African American GFR (CKD) >90 (>60 ml/min/1.73 sqM); Albumin 3.6 g/dL (3.5-5.0); Alkaline Phosphatase 220 U/L (38-126); Anion Gap 11 mmol/L; Blood Urea Nitrogen 14 mg/dL (9-20); Calcium 9.4 mg/dL (8.4-10.2); Carbon Dioxide 24 mmol/L (22-30); Chloride 107 mmol/L (98-107); Glucose 127 mg/dL (74-99); Non-African American GFR(CKD) >90 (>60 ml/min/1.73 sqM); Potassium 3.8 mmol/L (3.5-5.1); Sodium 142 mmol/L (137-145); Total Bilirubin 0.6 mg/dL (0.2-1.3); Total Protein 6.4 g/dL (6.3-8.2)
[2020-09-30 06:49] LABS: Glucose,Whole Blood 141 mg/dL (75-99)
[2020-09-30] MEDS: HYDROmorphone 0.5 MG/0.5 ML SYRINGE IVP PRN (06:58)
[2020-09-30] MEDS: INSULIN ASPART (NovoLOG) 100 UNIT/ML VIAL SQ SCH ×3 (06:58→21:06)
[2020-09-30] MEDS: IPRATROPIUM-ALBUTEROL 3 ML NEB INHALATION SCH ×4 (07:07→20:16)
--- NOTE | 2020-09-30 08:09 | XR ---
EXAMINATION TYPE: XR chest 1V portable DATE OF EXAM: 09/30/2020 COMPARISON: 09/29/2020 HISTORY: Semiupright AP portable chest radiograph TECHNIQUE: Single frontal view of the chest is obtained. FINDINGS: Interval extubation and removal of nasogastric tube.Stable left CVC. Stable bilateral interstitial opacities and subsegmental atelectasis. No pneumothorax or pleural effu bartolome. Cardiomediastinal silhouette within normal limit. Mediastinal surgical changes similar to prior study . No acute osseous abnormality. IMPRESSION: Stable mild bilateral interstitial opacities and basilar atelectasis status post extubat ion and removal of nasogastric tube.
[2020-09-30] MEDS: APIXABAN 5 MG TAB PO SCH ×2 (08:55→20:34)
[2020-09-30] MEDS: ATORVASTATIN 40 MG TAB PO SCH (08:55)
[2020-09-30] MEDS: ASPIRIN 81 MG PO SCH (08:55)
[2020-09-30] MEDS: PANTOPRAZOLE 40 MG/10 ML VIAL IVP SCH (08:55)
[2020-09-30] MEDS: oxyCODONE ER 20 MG TAB.ER.12H PO SCH ×2 (09:17→20:34)
--- NOTE | 2020-09-30 10:48 | P.PN ---
Subjective Progress Note Date: 09/30/20 Principal diagnosis: Respiratory failure. 65-year-old male who presents to the emergency department, at about 8:00 at night, on September 26. The patient apparently presented for shortness of breath. He apparently was not able to catch breath throughout the day. He apparently also some pain with deep inspiration. There is no fever or chills or cough. There was no chest pain or chest discomfort otherwise. The patient was recently in the hospital between September 20 and September 24. We saw him at that time. The patient was seen by Dr. Rizzo in the emergency department. Unfortunately, the patient developed mellissa respiratory failure car intubation. In addition, the patient had ventricular tachycardia and received cardioversion in the emergency department. The patient was placed on the ventilator, and amiodarone. Currently, he remains on the volume assist control mode, rate 24, tidal volume 450, FiO2 40%, and PEEP of 5. Arterial blood gases show pO2 of 208, pCO2 35, a nd pH is 7.50. Those blood gases were done on 60%. He remains on amiodarone at 1 mg/m, propofol at 40 mcg/kg/m, and norepinephrine at 4 mcg/m. The patient is receiving heparin via weightbase protocol. We will attempt to start tube feeds today. A left subclavian triple-lumen catheter was used. Multiple attempts at placement of an arterial line in the right radial artery, and right femoral art zehra, were unsuccessful. White count 12.6, hemoglobin 8.5, hematocrit 25.3, and platelet count 231,000. PT and INR are normal. PTT was 33.9. Sodium 138, potassium 3.7, chlorides 104, CO2 25, anion gap 9, BUN 34, creatinine 1.26. Chest x-ray shows bilateral lower lobe infiltrates left greater than right, and a properly placed central line. Progress note dated 09/28/2020. 65-year-old male who presented to the emergency department on September 26. He came in complaining of shortness of breath. The patient ended up requiring intubation and mechanical ventilation. He remains on the mechanical ventilator. He is on the volume assist control mode, rate 24, tidal volume or 50, FiO2 40%, and PEEP of 5. FiO2 will be dropped down to 30%. Arterial blood gases show pO2 114, pCO2 35, pH is 7.54. This blood gases consistent with a combined respiratory and metabolic alkalosis. The patient's currently on amiodarone 0.5 mg/m, propofol at 65 mcg/kg/m, and vital high protein at 20 mL an hour, with a goal of 52 mL an hour. We did place a right brachial art line in this patient. Appendectomy white count 9.3, hemoglobin 9.6, hematocrit 28.8, and platelet count 297,000. Sodium 144, potassium 3.7, chlorides 107, CO2 28, anion gap 9, BUN 25, and creatinine 1.08. Chest x-ray suggests left basilar atelectasis. Progress note dated 09/29/2020. 65-year-old male who presented to the emergency department on September 26 complaining of shortness of breath. The patient developed mellissa respiratory failure and required intubation and mechanical ventilation. Currently, he's on the volume assist control, rate 24, tidal volume 450, FiO2 30%, and PEEP of 5. Arterial blood gases show a PaO2 of 70, PaCO2 32, and a pH is 7.54. Blood gases are consistent with combined respiratory and metabolic alkalosis. The patient's currently on propofol at 70 mcg/kg/m, amiodarone at 0.5 mg/m, and saline at 10 mL an hour. The patient's also receiving vital high protein at 30 mL an hour. We will do a daily interruption of sedation, and a spontaneous breathing trial on this patient. White count 8.5, hemoglobin 9, hematocrit 26.6, and platelet count 310,000. Sodium 142, potassium 3.7, chlorides 109, CO2 28, anion gap 5, BUN 21, and creatinine 0.92. Chest x-ray today looks relatively normal. I've asked the nurses to go ahead and get a full set a weaning parameters, and a cuff leak test, as well as a rapid shallow breathing index. Progress note dated 09/30/2020. 65-year-old male who presented to the emergency department on September 26, complaining of shortness of breath. The patient developed mellissa respiratory failure and required intubation and mechanical ventilation. Yesterday, his chest x-ray looked excellent, and we did a spontaneous breathing trial after a daily interruption of sedation. Weaning parameters were excellent including the rapid shallow breathing index. She had a positive cuff leak, and the decision was made to go ahead and extubate the patient. Currently, he's on 2 L nasal cannula. He is getting saline at 10 mL an hour, and amiodarone 0.5 mg/m. It was stated to me by the ER, that the patient after being recently discharged, was not taking his medications. The patient tells me otherwise, and states that he was taking his medications as prescribed. He has no recollection of exactly what happened to him and how he ended up in the hospital. Chest x-ray appears to be reasonably stable. White count 13.4, hemoglobin 10.6, hematocrit 32.5, and platelet count 340,000. Sodium, potassium, chloride, CO2, anion gap, BUN, and creatinine, were all within normal range. Microbiologic studies are negative. Objective - Vital Signs Vital signs: Vital Signs Temp 98.8 F 09/29/20 04:00 Pulse 85 09/30/20 07:00 Resp 20 09/30/20 07:00 BP 150/76 09/30/20 07:00 Pulse Ox 98 09/30/20 07:00 Intake & Output 09/29/20 09/30/20 09/30/20 18:59 06:59 18:59 Intake Total 584.928 720 10 Output Total 1200 1395 75 Balance -615.072 -675 -65 Weight 72.3 kg Intake: IV 110 120 10 0.9 @ 10 110 120 10 Intake, IV Titration 406.928 Amount Amiodarone 450 mg In 250 Dextrose 5% in Water 250 ml @ 0.5 MG/MIN 16.667 mls/hr IV .Q15H [facility] Rx#: [id number] propofoL 1,000 mg In 156.928 Empty Bag 1 bag @ Titrate IV .Q0M [facility] Rx#: [id number] Oral 600 Tube Feeding 38 Other 30 Output: Urine 1200 1395 75 Other: Voiding Method Indwelling Catheter Indwelling Catheter Indwelling Catheter ABP, PAP, CO, CI - Last Documented Arterial Blood Pressure 174/69 - Exam No acute distress, currently on nasal O2 at 2 L, and without any respiratory distress whatsoever. HEENT examination is grossly unremarkable. Neck supple. Full range of motion. No adenopathy thyromegaly or neck vein distention. Cardiovascular examination reveals regular rhythm rate. S1-S2 normal. No S3 or S4. No discernible murmur noted. Heart rate 85 bpm. Heart sounds are distant. Lungs reveal bilateral scattered rhonchi. No wheezes or crackles. Breath sounds are equal bilaterally. Left subclavian central line is noted. Abdomen soft bowel sounds are heard. No masses or tenderness. Extremities are intact. No cyanosis clubbing or edema. Skin is without rash or lesion. Neurologic examination is normal. - Labs CBC & Chem 7: 09/30/20 04:27 09/30/20 04:27 Labs: Abnormal Lab Results - Last 24 Hours (Table) 09/29/20 09/29/20 09/29/20 Range/Units 12:06 17:58 23:00 WBC (3.8-10.6) k/uL RBC (4.30-5.90) m/uL Hgb (13.0-17.5) gm/dL Hct (39.0-53.0) % Neutrophils # (1.3-7.7) k/uL Glucose (74-99) mg/dL POC Glucose (mg/dL) 217 H 203 H 153 H (75-99) mg/dL Alkaline Phosphatase (38-126) U/L 09/30/20 09/30/20 09/30/20 Range/Units 04:27 04:27 06:47 WBC 13.4 H (3.8-10.6) k/uL RBC 3.42 L (4.30-5.90) m/uL Hgb 10.6 L (13.0-17.5) gm/dL Hct 32.5 L (39.0-53.0) % Neutrophils # 11.0 H (1.3-7.7) k/uL Glucose 127 H (74-99) mg/dL POC Glucose (mg/dL) 141 H (75-99) mg/dL Alkaline Phosphatase 220 H (38-126) U/L Microbiology - Last 24 Hours (Table) 09/27/20 01:57 Gram Stain - Final Sputum Sputum Culture - Final Assessment and Plan Assessment: Acute shortness of breath, with acute hypoxemic respiratory failure, likely multifactorial, in part related to fluid overload, but also possible bilateral pneumonia, status post intubation and mechanical ventilation in the ER, on 09/26/2020. The patient was successfully extubated on 09/29/2020. History of CAD, status post bypass grafting, 2019. Ventricular tachycardia, requiring cardioversion in the emergency department. Hypotension, which may be related to underlying sepsis. Probable COPD from previous tobacco use. Recent admission to the hospital from September 20 through September 24, for hypotension, dehydration, and severe metabolic acidosis. History of chronic atrial fibrillation. History of diabetes mellitus. Gastroesophageal reflux disease. Hyperlipidemia. Hypertension. History of myocardial infarction. History of pseudomonas aeruginosa urinary tract infection. History of scrotal abscess. History of chronic back pain. Plan: Plan Dated 09/27/2020. The patient's FiO2 was reduced from 60%, down to 40% this morning, based on his blood gases. In addition, the patient remains on amiodarone, will perform, and norepinephrine, as well as IV heparin. The patient did receive cardioversion in the emergency department for ventricular tachycardia. His chest x-ray suggests fluid overload and/or pneumonia. His overall prognosis is not good. He is not a very healthy chap. We did place a left subclavian triple-lumen catheter. We attempted multiple times to place a right radial art line in right femoral artery art line, but were unsuccessful. Medications are reviewed. Additional recommendations and suggestions are forthcoming. I was told by the ER physician, that the patient was not taking any of his discharge medications he was discharged on September 24. Plan dated 09/28/2020. The patient's FiO2 was dropped from 40 down to 30%. We were able to finally place a right brachial arterial line. The patient remains on amiodarone 0.5 mg/ m, and propofol at 65 mcg/kg/m. The patient is receiving nutrition with vital high protein, just not at goal as yet. Additional recommendations and suggestions are forthcoming. A triple-lumen catheter was placed in the left subclavian site yesterday. Additional recommendations and suggestions are forthcoming. Prognosis is guarded. The patient was noncompliant with medications after his last discharge. Plan dated 09/29/2020. The patient will have a daily interruption of sedation today. We will attempt a spontaneous breathing trial, with pressure support of 5 and CPAP of 5. Currently, the patient remains on propofol at 70 mcg/kg/m, and amiodarone at 0.5 mg/m. The patient's chest x-ray looks relatively normal. His gas exchange is very guarded. He does have a combined respiratory and metabolic alkalosis. The patient may be a candidate for weaning today. Additional recommendations and suggestions are forthcoming. We will continue to follow and make suggestions and/or recommendations where appropriate. Plan dated 09/30/2020. The patient remains on amiodarone 0.5 mg/m. The patient was successfully extubated on September 29. Clinically, he looks improved. He states that he was taking his medications after his recent discharge. The patient has no independent recollection as to exactly what happened to him. He was quite unstable in the emergency department. Currently, he looks good and is feeling well. We'll continue to follow him and make recommendations were appropriate. Unnecessary medications on the MAY are removed. The updraft treatments are reduced down to 4 times a day and when necessary. Time with Patient: Greater than 30
[2020-09-30 11:53] LABS: Glucose,Whole Blood 193 mg/dL (75-99)
--- NOTE | 2020-09-30 12:39 | P.PN ---
Progress Note - Text This morning the patient is lying in bed short of breath but a lot better than yesterday He was alert he says he short of breath But he has been extubated and looks better than what he did yesterday This morning he was in sinus rhythm However within the last half an hour he went back into A. fib with RVR When he was admitted and been called by the ER physician who said that he had gone into A. fib with RVR while in the ER associated with hypertension I had asked her to cardiovert him immediately and start IV amiodarone I spoke to the nurse and*give another bolus of amiodarone 150 mg If he does not convert spontaneously or chemically cardiovert him today He is anticoagulated Blood pressure 142 88 mmHg pulse rate in the 80s initially now of 100 4250 beats a minute Breath sounds significantly reduced this morning Heart sounds are distant and soft Very frail 65-year-old male who looks much older than his stated age Impression Severe acute and chronic respiratory failure Paroxysmal A. fib with RVR refractory to therapy CAD, ischemic cardio myopathy Status post coronary artery bypass grafting Left ventricle ejection fraction 50%
[2020-09-30] MEDS ORDERED: DEXTROSE 5% IN WATER 100 ML with AMIODARONE 150 MG IV ONE (13:00)
[2020-09-30] MEDS: METOPROLOL TARTRATE 25 MG TAB PO SCH ×2 (14:30→20:34)
[2020-09-30] MEDS ORDERED: AMIODARONE 360 MG in DEXTROSE 5% IN WATER 200 ML IV ONE ×2 (15:00)
[2020-09-30] MEDS: DILTIAZEM 125 MG in SODIUM CHLORIDE 0.9% 100 ML IV SCH (17:05)
[2020-09-30 21:13] LABS: Glucose,Whole Blood 351 mg/dL (75-99)
--- NOTE | 2020-10-01 00:37 | P.PN ---
Subjective Progress Note Date: 09/30/20 Principal diagnosis: Acute Hypoxic Respiratory failure Mr. Austin is a 65-year-old male with a past medical history of atrial fibrillation, coronary artery disease, diabetes mellitus, GERD, hypertension, hyperlipidemia admitted for the chief complaint of difficulty in breathing. Patient was found to have ventricular tachycardia and had cardioversion done in the emergency department. Eventually patient went into respiratory failure so he has been intubated and admitted to the ICU. On 09/29/2020-patient was seen and examined in the ICU. Patient was successfully extubated around 10 AM. Patient seems to be uncomfortable tossing and turning in the bed. He seems to be confused. He states that he has chronic low back pain and takes OxyContin for pain. He is not sure where he is currently but thinks he is in a hospital setting. Review of systems could not be done as the patient is confused. On reviewing the vitals patient has been afebrile heart rate between 90s 200s, respiratory rate 20s to 25, blood pressure 170/90, saturating at 98% on room air. On reviewing the labs from this morning white count of 8.5, hemoglobin 9, platelets 310. Sodium 142, potassium 3.7, chloride 109, bicarb 28, BUN 21, creatinine 0.92. On 09/30/2020 -patient is seen and examined in the ICU at bedside. As per discussion with nursing staff patient has been complaining of chronic low back pain and asking for his OxyContin. Patient states that he takes 80 mg of OxyContin twice daily for his chronic low back pain. Earlier this morning patient patient into atrial fibrillation with heart rate up to 170, he was given a bolus of amiodarone was given and his heart rate was in much better control. Patient denied having any chest pain or palpitations. No cough or difficulty in breathing. On reviewing his vitals temperature of 98 heart rate between 100s to 110s, respiratory rate 13, blood pressure 114 x 73 saturating at 96% on 2 L of oxygen via nasal cannula. On reviewing his labs from this morning white count of 13.4, hemoglobin 10.6, platelets 340. Sodium 142, potassium 3.8, chloride 107, bicarb 24, BUN 14, creatinine 0.80 AST ALT within normal limits. Active Medications Albuterol/Ipratropium (Ipratropium-Albuterol 3 Ml Neb) 3 ml INHALATION RT-Q2H PRN PRN Reason: Shortness Of Breath Or Wheezing Albuterol/Ipratropium (Ipratropium-Albuterol 3 Ml Neb) 3 ml INHALATION RT-QID [facility] Last Admin: 09/30/20 20:16 Dose: 3 ml Documented by: Apixaban (Apixaban 5 Mg Tab) 5 mg PO BID [facility]; Protocol Last Admin: 09/30/20 20:34 Dose: 5 mg Documented by: Aspirin (Aspirin 81 Mg) 81 mg PO DAILY [facility] Last Admin: 09/30/20 08:55 Dose: 81 mg Documented by: Atorvastatin Calcium (Atorvastatin 40 Mg Tab) 40 mg PO DAILY [facility] Last Admin: 09/30/20 08:55 Dose: 40 mg Documented by: Ceftriaxone Sodium 1 gm/ (Sodium Chloride) 50 mls @ 100 mls/hr IVPB Q24HR [facility] Last Admin: 09/30/20 08:55 Dose: 100 mls/hr Documented by: Diltiazem HCl 125 mg/ Sodium (Chloride) 125 mls @ 10 mls/hr IV .[id number] [facility] Last Admin: 09/30/20 17:05 Dose: 10 mg/hr, 10 mls/hr Documented by: Amiodarone HCl 450 mg/ (Dextrose/Water) 250 mls @ 16.667 mls/hr IV .Q15H [facility]; Protocol Stop: 10/01/20 15:14 Last Admin: 09/30/20 21:30 Dose: 0.5 mg/min, 16.667 mls/hr Documented by: Insulin Aspart (Insulin Aspart (Novolog) 100 Unit/Ml Vial) 0 unit SQ ACHS [facility]; Protocol Last Admin: 09/30/20 21:06 Dose: 6 unit Documented by: Metoprolol Tartrate (Metoprolol Tartrate 25 Mg Tab) 25 mg PO TID [facility] Last Admin: 09/30/20 20:34 Dose: 25 mg Documented by: Miscellaneous Information (Potassium Replacement Protocol 1 Each Misc) 1 each MISCELLANE DAILY PRN; Protocol PRN Reason: Per Protocol Naloxone HCl (Naloxone 0.4 Mg/Ml 1 Ml Vial) 0.2 mg IV Q2M PRN PRN Reason: Opioid Reversal Oxycodone HCl (Oxycodone Hcl 5 Mg Tab) 10 mg PO TID PRN PRN Reason: Pain Last Admin: 09/30/20 22:50 Dose: 10 mg Documented by: Oxycodone HCl (Oxycodone Er 20 Mg Tab.Er.12h) 40 mg PO Q12HR [facility] Last Admin: 09/30/20 20:34 Dose: 40 mg Documented by: Pantoprazole Sodium (Pantoprazole 40 Mg Tablet) 40 mg PO AC-BRKFST [facility] Objective - Vital Signs Vital signs: Vital Signs Temp 98 F 09/30/20 08:00 Pulse 125 H 09/30/20 13:00 Resp 13 09/30/20 13:00 BP 109/62 09/30/20 13:00 Pulse Ox 100 09/30/20 13:00 Intake & Output 09/29/20 09/30/20 09/30/20 18:59 06:59 18:59 Intake Total 584.928 720 250 Output Total 1200 1395 525 Balance -615.072 -675 -275 Weight 72.3 kg Intake: IV 110 120 50 0.9 @ 10 110 120 50 Intake, IV Titration 406.928 Amount Amiodarone 450 mg In 250 Dextrose 5% in Water 250 ml @ 0.5 MG/MIN 16.667 mls/hr IV .Q15H [facility] Rx#: [id number] propofoL 1,000 mg In 156.928 Empty Bag 1 bag @ Titrate IV .Q0M [facility] Rx#: [id number] Oral 600 200 Tube Feeding 38 Other 30 Output: Urine 1200 1395 525 Other: Voiding Method Indwelling Catheter Indwelling Catheter Indwelling Catheter ABP, PAP, CO, CI - Last Documented Arterial Blood Pressure 137/82 - Exam PHYSICAL EXAMINATION: GENERAL: The patient is awake, complaining of low back pain. HEENT: Pupils are round and equally reacting to light. EOMI. No scleral icterus. No conjunctival pallor. CARDIOVASCULAR: S1 and S2 present.Irregularly irregular PULMONARY: Chest is clear to auscultation, no wheezing or crackles. ABDOMEN: Soft, nontender, nondistended, normoactive bowel sounds. No palpable organomegaly. MUSCULOSKELETAL: No joint swelling or deformity. EXTREMITIES: No edema NEUROLOGICAL: Gross neurological examination did not reveal any focal deficits. SKIN:No rash - Labs CBC & Chem 7: 09/30/20 04:27 09/30/20 04:27 Labs: Abnormal Lab Results - Last 24 Hours (Table) 09/29/20 09/29/20 09/30/20 Range/Units 17:58 23:00 04:27 WBC 13.4 H (3.8-10.6) k/uL RBC 3.42 L (4.30-5.90) m/uL Hgb 10.6 L (13.0-17.5) gm/dL Hct 32.5 L (39.0-53.0) % Neutrophils # 11.0 H (1.3-7.7) k/uL Glucose (74-99) mg/dL POC Glucose (mg/dL) 203 H 153 H (75-99) mg/dL Alkaline Phosphatase (38-126) U/L 09/30/20 09/30/20 09/30/20 Range/Units 04:27 06:47 11:51 WBC (3.8-10.6) k/uL RBC (4.30-5.90) m/uL Hgb (13.0-17.5) gm/dL Hct (39.0-53.0) % Neutrophils # (1.3-7.7) k/uL Glucose 127 H (74-99) mg/dL POC Glucose (mg/dL) 141 H 193 H (75-99) mg/dL Alkaline Phosphatase 220 H (38-126) U/L Assessment and Plan Assessment: ASSESSMENT Acute hypoxic respiratory failure-pulmonary edema, possible pneumonia status post extubation 09/29/2020 Ventricular tachycardia status post cardioversion History of coronary artery disease status post CABG Chronic atrial fibrillation Probable COPD History of diabetes mellitus Hypertension Hyperlipidemia GERD History of chronic low back pain History of right scrotal abscess with sepsis History of UTI with Pseudomonas Former smoker Occasional marijuana use Plan: Patient has been successfully extubated yesterday. He has been complaining of back pain and mentions that he takes oxycodone at home, will start at 40 mg BID. Continue with ceftriaxone for possible pneumonia. Patient is being continued on IV amiodarone until he is able to tolerate p.o. Continue heparin for anti coagulation. Continue with the rest of his current medication regimen. Further recommendations to follow depending on the progress of the patient.
[2020-10-01] MEDS: DILTIAZEM 125 MG in SODIUM CHLORIDE 0.9% 100 ML IV SCH (05:07)
[2020-10-01] MEDS: PANTOPRAZOLE 40 MG TABLET PO SCH (06:17)
[2020-10-01] MEDS: INSULIN ASPART (NovoLOG) 100 UNIT/ML VIAL SQ SCH ×4 (06:17→21:02)
[2020-10-01 06:28] LABS: Glucose,Whole Blood 375 mg/dL (75-99)
[2020-10-01 07:09] LABS: Basophils # (A) 0.1 k/uL (0-0.2); Basophils % (A) 0 %; Eosinophils # (A) 0.3 k/uL (0-0.7); Eosinophils % (A) 2 %; HCT 33.7 % (39.0-53.0); HGB 10.9 gm/dL (13.0-17.5); Lymphocytes # (A) 1.6 k/uL (1.0-4.8); Lymphocytes % (A) 10 %; MCH 31.1 pg (25.0-35.0); MCHC 32.5 g/dL (31.0-37.0); MCV 95.8 fL (80.0-100.0); Mean Platelet Volume 7.4; Monocytes # (A) 0.7 k/uL (0-1.0); Monocytes % (A) 4 %; Neutrophils # (A) 13.3 k/uL (1.3-7.7); Neutrophils % (A) 83 %; Platelet Count 372 k/uL (150-450); RBC 3.51 m/uL (4.30-5.90); RDW 14.4 % (11.5-15.5); WBC 16.1 k/uL (3.8-10.6)
[2020-10-01 07:25] LABS: Albumin 3.1 g/dL (3.5-5.0); Calcium 8.6 mg/dL (8.4-10.2); Total Bilirubin 0.3 mg/dL (0.2-1.3); Total Protein 5.7 g/dL (6.3-8.2)
[2020-10-01 07:33] LABS: Potassium 4.4 mmol/L (3.5-5.1)
[2020-10-01] MEDS: IPRATROPIUM-ALBUTEROL 3 ML NEB INHALATION SCH ×4 (08:09→19:41)
[2020-10-01] MEDS: oxyCODONE ER 20 MG TAB.ER.12H PO SCH ×2 (08:15→21:01)
[2020-10-01] MEDS: ATORVASTATIN 40 MG TAB PO SCH (08:16)
[2020-10-01] MEDS: APIXABAN 5 MG TAB PO SCH ×2 (08:16→21:01)
[2020-10-01] MEDS: ASPIRIN 81 MG PO SCH (08:16)
[2020-10-01] MEDS: METOPROLOL TARTRATE 25 MG TAB PO SCH (08:16)
[2020-10-01 11:53] LABS: Glucose,Whole Blood 176 mg/dL (75-99)
[2020-10-01] MEDS: AMIODARONE 450 MG in DEXTROSE 5% IN WATER 250 ML IV SCH ×2 (12:25)
--- NOTE | 2020-10-01 12:27 | P.PN ---
Subjective Progress Note Date: 10/01/20 Principal diagnosis: Respiratory failure. 65-year-old male who presents to the emergency department, at about 8:00 at night, on September 26. The patient apparently presented for shortness of breath. He apparently was not able to catch breath throughout the day. He apparently also some pain with deep inspiration. There is no fever or chills or cough. There was no chest pain or chest discomfort otherwise. The patient was recently in the hospital between September 20 and September 24. We saw him at that time. The patient was seen by Dr. Rizzo in the emergency department. Unfortunately, the patient developed mellissa respiratory failure car intubation. In addition, the patient had ventricular tachycardia and received cardioversion in the emergency department. The patient was placed on the ventilator, and amiodarone. Currently, he remains on the volume assist control mode, rate 24, tidal volume 450, FiO2 40%, and PEEP of 5. Arterial blood gases show pO2 of 208, pCO2 35, a nd pH is 7.50. Those blood gases were done on 60%. He remains on amiodarone at 1 mg/m, propofol at 40 mcg/kg/m, and norepinephrine at 4 mcg/m. The patient is receiving heparin via weightbase protocol. We will attempt to start tube feeds today. A left subclavian triple-lumen catheter was used. Multiple attempts at placement of an arterial line in the right radial artery, and right femoral art zehra, were unsuccessful. White count 12.6, hemoglobin 8.5, hematocrit 25.3, and platelet count 231,000. PT and INR are normal. PTT was 33.9. Sodium 138, potassium 3.7, chlorides 104, CO2 25, anion gap 9, BUN 34, creatinine 1.26. Chest x-ray shows bilateral lower lobe infiltrates left greater than right, and a properly placed central line. Progress note dated 09/28/2020. 65-year-old male who presented to the emergency department on September 26. He came in complaining of shortness of breath. The patient ended up requiring intubation and mechanical ventilation. He remains on the mechanical ventilator. He is on the volume assist control mode, rate 24, tidal volume or 50, FiO2 40%, and PEEP of 5. FiO2 will be dropped down to 30%. Arterial blood gases show pO2 114, pCO2 35, pH is 7.54. This blood gases consistent with a combined respiratory and metabolic alkalosis. The patient's currently on amiodarone 0.5 mg/m, propofol at 65 mcg/kg/m, and vital high protein at 20 mL an hour, with a goal of 52 mL an hour. We did place a right brachial art line in this patient. Appendectomy white count 9.3, hemoglobin 9.6, hematocrit 28.8, and platelet count 297,000. Sodium 144, potassium 3.7, chlorides 107, CO2 28, anion gap 9, BUN 25, and creatinine 1.08. Chest x-ray suggests left basilar atelectasis. Progress note dated 09/29/2020. 65-year-old male who presented to the emergency department on September 26 complaining of shortness of breath. The patient developed mellissa respiratory failure and required intubation and mechanical ventilation. Currently, he's on the volume assist control, rate 24, tidal volume 450, FiO2 30%, and PEEP of 5. Arterial blood gases show a PaO2 of 70, PaCO2 32, and a pH is 7.54. Blood gases are consistent with combined respiratory and metabolic alkalosis. The patient's currently on propofol at 70 mcg/kg/m, amiodarone at 0.5 mg/m, and saline at 10 mL an hour. The patient's also receiving vital high protein at 30 mL an hour. We will do a daily interruption of sedation, and a spontaneous breathing trial on this patient. White count 8.5, hemoglobin 9, hematocrit 26.6, and platelet count 310,000. Sodium 142, potassium 3.7, chlorides 109, CO2 28, anion gap 5, BUN 21, and creatinine 0.92. Chest x-ray today looks relatively normal. I've asked the nurses to go ahead and get a full set a weaning parameters, and a cuff leak test, as well as a rapid shallow breathing index. Progress note dated 09/30/2020. 65-year-old male who presented to the emergency department on September 26, complaining of shortness of breath. The patient developed mellissa respiratory failure and required intubation and mechanical ventilation. Yesterday, his chest x-ray looked excellent, and we did a spontaneous breathing trial after a daily interruption of sedation. Weaning parameters were excellent including the rapid shallow breathing index. She had a positive cuff leak, and the decision was made to go ahead and extubate the patient. Currently, he's on 2 L nasal cannula. He is getting saline at 10 mL an hour, and amiodarone 0.5 mg/m. It was stated to me by the ER, that the patient after being recently discharged, was not taking his medications. The patient tells me otherwise, and states that he was taking his medications as prescribed. He has no recollection of exactly what happened to him and how he ended up in the hospital. Chest x-ray appears to be reasonably stable. White count 13.4, hemoglobin 10.6, hematocrit 32.5, and platelet count 340,000. Sodium, potassium, chloride, CO2, anion gap, BUN, and creatinine, were all within normal range. Microbiologic studies are negative. Progress note dated 10/01/2020. 65-year-old male who presented to the emergency department on September 26, complaining of shortness of breath. The patient developed mellissa respiratory failure and required intubation and mechanical ventilation. The patient was ext ubated on September 29. Currently, he is on 4 L nasal cannula. He is getting saline at 10 mL an hour, a Cardizem drip at 10 mg an hour, and amiodarone at 0.5 mg/m. He seems relatively stable. He has no complaints of pain, or shortness of breath. White count 16.1, hemoglobin 10.9, hematocrit 33.7, and platelet count 372,000. Sodium 136, potassium 4.4, chlorides 108, CO2 18, anion gap 10, BUN 29, and creatinine 1.05. Chest x-ray shows minimal basilar atelectasis. Objective - Vital Signs Vital signs: Vital Signs Temp 97.9 F 09/30/20 20:00 Pulse 78 10/01/20 11:55 Resp 16 10/01/20 08:00 BP 134/70 10/01/20 08:00 Pulse Ox 100 10/01/20 08:00 Intake & Output 09/30/20 10/01/20 10/01/20 18:59 06:59 18:59 Intake Total 260 1080.333 Output Total 875 800 Balance -615 280.333 Weight 72 kg Intake: IV 60 0.9 @ 10 60 Intake, IV Titration 120.333 Amount Diltiazem 125 mg In 120.333 Sodium Chloride 0.9% 100 ml @ 10 MG/HR 10 mls/hr IV .[id number] [facility] Rx#: [id number] Oral 200 960 Output: Urine 875 800 Other: Voiding Method Indwelling Catheter Urinal Urinal Diaper Diaper # Voids 350 ABP, PAP, CO, CI - Last Documented Arterial Blood Pressure 147/81 - Exam No acute distress, currently on nasal O2 at 2 L, and without any respiratory distress whatsoever. HEENT examination is grossly unremarkable. Neck supple. Full range of motion. No adenopathy thyromegaly or neck vein distention. Cardiovascular examination reveals regular rhythm rate. S1-S2 normal. No S3 or S4. No discernible murmur noted. Heart rate 78 bpm. Heart sounds are distant. Lungs reveal bilateral scattered rhonchi. No wheezes or crackles. Breath sounds are equal bilaterally. Left subclavian central line is noted. Abdomen soft bowel sounds are heard. No masses or tenderness. Extremities are intact. No cyanosis clubbing or edema. Skin is without rash or lesion. Neurologic examination is normal. - Labs CBC & Chem 7: 10/01/20 06:12 10/01/20 06:12 Labs: Abnormal Lab Results - Last 24 Hours (Table) 09/30/20 10/01/20 10/01/20 Range/Units 20:57 06:12 06:12 WBC 16.1 H (3.8-10.6) k/uL RBC 3.51 L (4.30-5.90) m/uL Hgb 10.9 L (13.0-17.5) gm/dL Hct 33.7 L (39.0-53.0) % Neutrophils # 13.3 H (1.3-7.7) k/uL Sodium 136 L (137-145) mmol/L Chloride 108 H (98-107) mmol/L Carbon Dioxide 18 L (22-30) mmol/L BUN 29 H (9-20) mg/dL Glucose 359 H (74-99) mg/dL POC Glucose (mg/dL) 351 H (75-99) mg/dL Alkaline Phosphatase 168 H (38-126) U/L Total Protein 5.7 L (6.3-8.2) g/dL Albumin 3.1 L (3.5-5.0) g/dL 10/01/20 10/01/20 Range/Units 06:13 11:51 WBC (3.8-10.6) k/uL RBC (4.30-5.90) m/uL Hgb (13.0-17.5) gm/dL Hct (39.0-53.0) % Neutrophils # (1.3-7.7) k/uL Sodium (137-145) mmol/L Chloride (98-107) mmol/L Carbon Dioxide (22-30) mmol/L BUN (9-20) mg/dL Glucose (74-99) mg/dL POC Glucose (mg/dL) 375 H 176 H (75-99) mg/dL Alkaline Phosphatase (38-126) U/L Total Protein (6.3-8.2) g/dL Albumin (3.5-5.0) g/dL Assessment and Plan Assessment: Acute shortness of breath, with acute hypoxemic respiratory failure, likely multifactorial, in part related to fluid overload, but also possible bilateral pneumonia, status post intubation and mechanical ventilation in the ER, on 09/26/2020. The patient was successfully extubated on 09/29/2020. History of CAD, status post bypass grafting, 2019. Ventricular tachycardia, requiring cardioversion in the emergency department. Hypotension, which may be related to underlying sepsis. Probable COPD from previous tobacco use. Recent admission to the hospital from September 20 through September 24, for hypotension, dehydration, and severe metabolic acidosis. History of chronic atrial fibrillation. History of diabetes mellitus. Gastroesophageal reflux disease. Hyperlipidemia. Hypertension. History of myocardial infarction. History of pseudomonas aeruginosa urinary tract infection. History of scrotal abscess. History of chronic back pain. Plan: Plan Dated 09/27/2020. The patient's FiO2 was reduced from 60%, down to 40% this morning, based on his blood gases. In addition, the patient remains on amiodarone, will perform, and norepinephrine, as well as IV heparin. The patient did receive cardioversion in the emergency department for ventricular tachycardia. His chest x-ray suggests fluid overload and/or pneumonia. His overall prognosis is not good. He is not a very healthy chap. We did place a left subclavian triple-lumen catheter. We attempted multiple times to place a right radial art line in right femoral artery art line, but were unsuccessful. Medications are reviewed. Additional recommendations and suggestions are forthcoming. I was told by the ER physician, that the patient was not taking any of his discharge medications he w as discharged on September 24. Plan dated 09/28/2020. The patient's FiO2 was dropped from 40 down to 30%. We were able to finally place a right brachial arterial line. The patient remains on amiodarone 0.5 mg/m, and propofol at 65 mcg/kg/m. The patient is receiving nutrition with vital high protein, just not at goal as yet. Additional recommendations and suggestions are forthcoming. A triple-lumen catheter was placed in the left subclavian site yesterday. Additional recommendations and suggestions are forthcoming. Prognosis is guarded. The patient was noncompliant with medications after his last discharge. Plan dated 09/29/2020. The patient will have a daily interruption of sedation today. We will attempt a spontaneous breathing trial, with pressure support of 5 and CPAP of 5. Cur rently, the patient remains on propofol at 70 mcg/kg/m, and amiodarone at 0.5 mg/m. The patient's chest x-ray looks relatively normal. His gas exchange is very guarded. He does have a combined respiratory and metabolic alkalosis. The patient may be a candidate for weaning today. Additional recommendations and suggestions are forthcoming. We will continue to follow and make suggestions and/or recommendations where appropriate. Plan dated 09/30/2020. The patient remains on amiodarone 0.5 mg/m. The patient was successfully extubated on September 29. Clinically, he looks improved. He states that he was taking his medications after his recent discharge. The patient has no independent recollection as to exactly what happened to him. He was quite unstable in the emergency department. Currently, he looks good and is feeling well. We'll continue to follow him and make recommendations were appropriate. Unnecessary medications on the MAY are removed. The updraft treatments are reduced down to 4 times a day and when necessary. Plan dated 10/01/2020. Currently, the patient appears to be relatively stable. We will continue to follow. The patient remains on a Cardizem drip and amiodarone drip. He's on 4 L nasal cannula. Chest x-ray stable. He denies any shortness of breath, chest pain, palpitations, cough, wheezing, or phlegm production. Additional recommendations and suggestions are forthcoming. The patient was successfully extubated on September 29. Time with Patient: Less than 30
--- NOTE | 2020-10-01 12:31 | P.PN ---
Subjective Patient is resting comfortably in bed No respiratory distress His lungs sounds are a lot better line decreased air entry bilaterally but no rhonchi He is lying flat in bed Heart sounds are regular Pulse rate in the 70s Blood pressure 134/70 mmHg Respiratory rate 16 Impression Paroxysmal atrial fibrillation with RVR On amiodarone Converted to sinus rhythm No need for cardioversion Plan Stop IV amiodarone Switched to by mouth amiodarone 200 mg by mouth twice a day for 2 weeks then stop Short-term amiodarone only Increase metoprolol to 50 mg twice daily Objective - Vital Signs Vital signs: Vital Signs Temp 97.9 F 09/30/20 20:00 Pulse 78 10/01/20 11:55 Resp 16 10/01/20 08:00 BP 134/70 10/01/20 08:00 Pulse Ox 100 10/01/20 08:00 Intake & Output 09/30/20 10/01/20 10/01/20 18:59 06:59 18:59 Intake Total 260 1080.333 248.616 Output Total 875 800 Balance -615 280.333 248.616 Weight 72 kg Intake: IV 60 0.9 @ 10 60 Intake, IV Titration 120.333 248.616 Amount Amiodarone 450 mg In 248.616 Dextrose 5% in Water 250 ml @ 0.5 MG/MIN 16.667 mls/hr IV .Q15H [facility] Rx#: [id number] Diltiazem 125 mg In 120.333 Sodium Chloride 0.9% 100 ml @ 10 MG/HR 10 mls/hr IV .[id number] [facility] Rx#: [id number] Oral 200 960 Output: Urine 875 800 Other: Voiding Method Indwelling Catheter Urinal Urinal Diaper Diaper # Voids 350 ABP, PAP, CO, CI - Last Documented Arterial Blood Pressure 147/81 - Labs CBC & Chem 7: 10/01/20 06:12 10/01/20 06:12 Labs: Abnormal Lab Results - Last 24 Hours (Table) 09/30/20 10/01/20 10/01/20 Range/Units 20:57 06:12 06:12 WBC 16.1 H (3.8-10.6) k/uL RBC 3.51 L (4.30-5.90) m/uL Hgb 10.9 L (13.0-17.5) gm/dL Hct 33.7 L (39.0-53.0) % Neutrophils # 13.3 H (1.3-7.7) k/uL Sodium 136 L (137-145) mmol/L Chloride 108 H (98-107) mmol/L Carbon Dioxide 18 L (22-30) mmol/L BUN 29 H (9-20) mg/dL Glucose 359 H (74-99) mg/dL POC Glucose (mg/dL) 351 H (75-99) mg/dL Alkaline Phosphatase 168 H (38-126) U/L Total Protein 5.7 L (6.3-8.2) g/dL Albumin 3.1 L (3.5-5.0) g/dL 10/01/20 10/01/20 Range/Units 06:13 11:51 WBC (3.8-10.6) k/uL RBC (4.30-5.90) m/uL Hgb (13.0-17.5) gm/dL Hct (39.0-53.0) % Neutrophils # (1.3-7.7) k/uL Sodium (137-145) mmol/L Chloride (98-107) mmol/L Carbon Dioxide (22-30) mmol/L BUN (9-20) mg/dL Glucose (74-99) mg/dL POC Glucose (mg/dL) 375 H 176 H (75-99) mg/dL Alkaline Phosphatase (38-126) U/L Total Protein (6.3-8.2) g/dL Albumin (3.5-5.0) g/dL
[2020-10-01 13:21] VITALS: BMI 24.8
[2020-10-01 16:49] LABS: Glucose,Whole Blood 290 mg/dL (75-99)
[2020-10-01 20:22] LABS: Glucose,Whole Blood 161 mg/dL (75-99)
[2020-10-01] MEDS: METOPROLOL TARTRATE 50 MG TAB PO SCH (21:01)
[2020-10-01] MEDS: AMIODARONE 200 MG TAB PO SCH (21:01)
[2020-10-01 21:41] VITALS: TEMP 98.2
--- NOTE | 2020-10-01 23:05 | P.PN ---
Subjective Progress Note Date: 10/01/20 Pt's vitals are stable today and labs stable. He is feeling improved, denies any back pain, chest pain, shortness of breath. Objective - Vital Signs Vital signs: Vital Signs Temp 98.2 F 10/01/20 20:00 Pulse 87 10/01/20 20:00 Resp 18 10/01/20 20:00 BP 137/67 10/01/20 20:00 Pulse Ox 99 10/01/20 20:00 Intake & Output 10/01/20 10/01/20 10/02/20 06:59 18:59 06:59 Intake Total 1080.333 448.616 720 Output Total 800 300 250 Balance 280.333 148.616 470 Weight 72 kg 72 kg Intake: IV 100 cefTRIAXone 1 gm In 100 Sodium Chloride 0.9% 50 ml @ 100 mls/hr IVPB Q24HR [facility] Rx#:[id number] Intake, IV Titration 120.333 348.616 Amount Amiodarone 360 mg In 100 Dextrose 5% in Water 200 ml @ 1 MG/MIN 33.333 mls/ hr IV .Q6H [facility] Rx#: [id number] Amiodarone 450 mg In 248.616 Dextrose 5% in Water 250 ml @ 0.5 MG/MIN 16.667 mls/hr IV .Q15H [facility] Rx#: [id number] Diltiazem 125 mg In 120.333 Sodium Chloride 0.9% 100 ml @ 10 MG/HR 10 mls/hr IV .[id number] [facility] Rx#: [id number] Oral 960 720 Output: Urine 800 300 250 Other: Voiding Method Urinal Urinal Urinal Diaper Diaper Diaper # Voids 350 ABP, PAP, CO, CI - Last Documented Arterial Blood Pressure 147/81 - Exam Gen: well developed, well nourished, NAD CV: irregular, no murmur Lungs: basilar crackles Skin: warm and dry - Labs CBC & Chem 7: 10/01/20 06:12 10/01/20 06:12 Labs: Abnormal Lab Results - Last 24 Hours (Table) 10/01/20 10/01/20 10/01/20 Range/Units 06:12 06:12 06:13 WBC 16.1 H (3.8-10.6) k/uL RBC 3.51 L (4.30-5.90) m/uL Hgb 10.9 L (13.0-17.5) gm/dL Hct 33.7 L (39.0-53.0) % Neutrophils # 13.3 H (1.3-7.7) k/uL Sodium 136 L (137-145) mmol/L Chloride 108 H (98-107) mmol/L Carbon Dioxide 18 L (22-30) mmol/L BUN 29 H (9-20) mg/dL Glucose 359 H (74-99) mg/dL POC Glucose (mg/dL) 375 H (75-99) mg/dL Alkaline Phosphatase 168 H (38-126) U/L Total Protein 5.7 L (6.3-8.2) g/dL Albumin 3.1 L (3.5-5.0) g/dL 10/01/20 10/01/20 10/01/20 Range/Units 11:51 16:46 20:20 WBC (3.8-10.6) k/uL RBC (4.30-5.90) m/uL Hgb (13.0-17.5) gm/dL Hct (39.0-53.0) % Neutrophils # (1.3-7.7) k/uL Sodium (137-145) mmol/L Chloride (98-107) mmol/L Carbon Dioxide (22-30) mmol/L BUN (9-20) mg/dL Glucose (74-99) mg/dL POC Glucose (mg/dL) 176 H 290 H 161 H (75-99) mg/dL Alkaline Phosphatase (38-126) U/L Total Protein (6.3-8.2) g/dL Albumin (3.5-5.0) g/dL Assessment and Plan Plan: Continue with rocephin, continue eliquis and PO amiodarone. Continue home oxycodone and sliding scale insulin
[2020-10-02 05:58] LABS: Glucose,Whole Blood 260 mg/dL (75-99)
[2020-10-02] MEDS: INSULIN ASPART (NovoLOG) 100 UNIT/ML VIAL SQ SCH (06:16)
[2020-10-02] MEDS: PANTOPRAZOLE 40 MG TABLET PO SCH (06:16)
[2020-10-02] MEDS: IPRATROPIUM-ALBUTEROL 3 ML NEB INHALATION SCH ×2 (07:11→11:11)
[2020-10-02 07:56] LABS: Basophils # (A) 0.1 k/uL (0-0.2); Basophils % (A) 1 %; Eosinophils # (A) 0.3 k/uL (0-0.7); Eosinophils % (A) 3 %; HCT 30.8 % (39.0-53.0); HGB 10.2 gm/dL (13.0-17.5); Lymphocytes % (A) 21 %; MCH 31.1 pg (25.0-35.0); MCHC 33.1 g/dL (31.0-37.0); MCV 93.8 fL (80.0-100.0); Mean Platelet Volume 6.8; Monocytes # (A) 0.6 k/uL (0-1.0); Monocytes % (A) 7 %; Neutrophils # (A) 6.6 k/uL (1.3-7.7); Neutrophils % (A) 68 %; Platelet Count 381 k/uL (150-450); RBC 3.29 m/uL (4.30-5.90); RDW 14.4 % (11.5-15.5); WBC 9.7 k/uL (3.8-10.6)
[2020-10-02] MEDS: METOPROLOL TARTRATE 50 MG TAB PO SCH (08:00)
[2020-10-02] MEDS: ATORVASTATIN 40 MG TAB PO SCH (08:00)
[2020-10-02] MEDS: APIXABAN 5 MG TAB PO SCH (08:01)
[2020-10-02] MEDS: AMIODARONE 200 MG TAB PO SCH (08:01)
[2020-10-02] MEDS: ASPIRIN 81 MG PO SCH (08:01)
[2020-10-02] MEDS: oxyCODONE ER 20 MG TAB.ER.12H PO SCH (08:01)
[2020-10-02 08:10] VITALS: BP 135/75; PULSE 83; RESP 16
[2020-10-02 08:14] LABS: ALT 22 U/L (4-49); AST 22 U/L (17-59); African American GFR (CKD) >90 (>60 ml/min/1.73 sqM); Albumin 3.2 g/dL (3.5-5.0); Alkaline Phosphatase 138 U/L (38-126); Anion Gap 9 mmol/L; Blood Urea Nitrogen 28 mg/dL (9-20); Carbon Dioxide 21 mmol/L (22-30); Chloride 108 mmol/L (98-107); Glucose 116 mg/dL (74-99); Non-African American GFR(CKD) 87 (>60 ml/min/1.73 sqM); Potassium 3.8 mmol/L (3.5-5.1); Sodium 138 mmol/L (137-145); Total Bilirubin 0.2 mg/dL (0.2-1.3)
--- NOTE | 2020-10-02 10:22 | P.DS ---
Providers Date of admission: 09/26/20 22:45 Expected date of discharge: 10/02/20 Attending physician: Puma Lovell MD Consults: 09/26/20 22:45 Consult Physician Stat Consulting Provider: Dionicio Hector Consult Reason/Comments: ICU Do you want consulting provider notified?: Already Contacted Consult Physician Stat Consulting Provider: Travis Caban Consult Reason/Comments: NSTEMI, arrhythmia Do you want consulting provider notified?: Already Contacted Primary care physician: Puma Lovell MD Hospital Course: Final Diagnoses: Acute hypoxic respiratory failure multifactorial, secondary to possible underlying bilateral pneumonia, fluid overload, mechanical ventilator-dependent Ventricular tachycardia status post cardioversion in the ER Possible Sepsis, present on admission, related to the above, secondary to patient noncompliance with med regimen that he recently was discharged on 09/24. Hypotension secondary to the above A. fib with RVRIn a patient with history of chronic atrial fibrillation Diabetes mellitus type II CAD, history of UT, CABG Ischemic cardiomyopathy, EF 40-45% Gastroesophageal reflux disease Hospital course:Ashok Austin is a 65 yo M with past medical history significant for hypertension, hyperlipidemia, paroxysmal atrial fibrillation, congestive heart failure, ischemic cardiac myopathy, and coronary artery disease with stenting and CABG x 3 in July 2019. He was recently admitted last week with hypovolemic shock and MATHEUS secondary to vomiting and diarrhea, he was treated at that time with IV fluids and discharged home. Apparently pt had not taken his prescribed medications after discharge. Patient presented to the ER with shortness of breath. He was intubated in the emergency room. Patient was found to be in A. fib with RVR. Patient was cardioverted by the emergency room physician. He was noted on CXR to have emelina lower lobe infiltrates. WBC 12.6k, Cr 1.26, procalcitonin 3.5. Patient was examined this morning at the bedside in the intensive care unit. Patient is on amiodarone drip. Patient was on levophed this morning which has been weaned off. Patient is on IV heparin. 09/28/2020 remains vent dependent, FiO2 30%/+5 of PEEP. Chest x-ray reporting left basilar atelectasis. Maintained on diprovan, amiodarone drips. ABGs noted. Tolerating tube feeds at 52 MLS per hour, with minimal to no residual. Afebrile, normal WBC. Renal function improving. Blood sugars controlled. Extubated on 09/29/20, maintaining O2 sats in the 90s on room air. Evaluated by a physical therapy, and does not qualify for LUIS. Home care recommended, patient declined. Denies any back pain, chest pain, shortness of breath. Denies any lightheadedness, dizziness or focal deficits. Patient will be discharged home today, in a stable condition with guarded prognosis, pending final DC recommendations and clearance from both pulmonary and cardiology with amiodarone Rx as per cardiology at discharge. The impression and plan of care has been dictated as directed. : I performed a history and examination of this patient, discussed the same with the dictator. I agree with the dictator's note ,documented as a scribe. Any a dditional findings or plans will be noted. Patient Condition at Discharge: Stable Plan - Discharge Summary New Discharge Prescriptions: New Metoprolol Tartrate [Lopressor] 50 mg PO BID #60 tab Pantoprazole [Protonix] 40 mg PO AC-BRKFST #30 tablet. Cefuroxime Axetil [Ceftin] 500 mg PO BID 3 Days #6 tab Continue Atorvastatin [Lipitor] 40 mg PO DAILY #30 tab DULoxetine HCL [Cymbalta] 60 mg PO BID glipiZIDE [Glucotrol] 5 mg PO AC-BID Semaglutide [Ozempic] 0.25 mg SQ WE oxyCODONE HCL [oxyCODONE HCL (IR)] 15 mg PO Q8H Aspirin 81 mg PO DAILY #30 chew Apixaban [Eliquis] 5 mg PO BID #60 tab Insulin Glargine,Hum.rec.anlog [Basaglar Kwikpen U-100] 25 unit SQ HS Insulin Aspart [NovoLOG Flexpen] 10 units SQ AC-TID PRN #0 PRN Reason: high blood sugar Discontinued hydrALAZINE HCL [Apresoline] 25 mg PO BID #60 tab carvediloL [Coreg] 6.25 mg PO BID-W/MEALS #60 tab Discharge Medication List Atorvastatin [Lipitor] 40 mg PO DAILY #30 tab 10/24/19 [Rx] DULoxetine HCL [Cymbalta] 60 mg PO BID 11/16/19 [History] Semaglutide [Ozempic] 0.25 mg SQ WE 11/16/19 [History] glipiZIDE [Glucotrol] 5 mg PO AC-BID 11/16/19 [History] oxyCODONE HCL [oxyCODONE HCL (IR)] 15 mg PO Q8H 03/01/20 [History] Aspirin 81 mg PO DAILY #30 chew 04/10/20 [Rx] Insulin Glargine,Hum.rec.anlog [Basaglar Kwikpen U-100] 25 unit SQ HS 08/22/20 [History] Apixaban [Eliquis] 5 mg PO BID #60 tab 10/02/20 [Rx] Cefuroxime Axetil [Ceftin] 500 mg PO BID 3 Days #6 tab 10/02/20 [Rx] Insulin Aspart [NovoLOG Flexpen] 10 units SQ AC-TID PRN #0 10/02/20 [Rx] Metoprolol Tartrate [Lopressor] 50 mg PO BID #60 tab 10/02/20 [Rx] Pantoprazole [Protonix] 40 mg PO AC-BRKFST #30 tablet. 10/02/20 [Rx] Follow up Appointment(s)/Referral(s): Puma Lovell MD [Primary Care Provider] - 3 Days Ambulatory/Diagnostic Orders: Complete Blood Count w/diff [LAB.AMB] Time Frame: 3 Days, Location: None Selected Activity/Diet/Wound Care/Special Instructions: Pending final DC recommendations and clearance from pulmonary and cardiology. Amiodarone RX as per cardiology.
--- NOTE | 2020-10-02 13:22 | P.PN ---
Subjective Progress Note Date: 10/02/20 HISTORY OF PRESENT ILLNESS: This is a 65-year-old male with a past medical history significant for hypertension, hyperlipidemia, paroxysmal atrial fibrillation, congestive heart failure, ischemic cardiac myopathy, and coronary artery disease with previous PCI to the RCA in 2007 and 2014. Patient also underwent CABG x 3 in July 2019. Patient follows in the office with Dr. Hua. We have been asked to see the patient in consultation for A. fib with RVR. Patient presented to the ER with shortness of breath. He was intubated in the emergency room. Patient was found to be in A. fib with RVR. Patient was cardioverted by the emergency room physician. Patient was examined this morning at the bedside in the intensive care unit. Telemetry reveals sinus mechanism. Patient is on amiodarone drip at 0.5 mg/m. Patient was on levophed this morning which has been weaned off. He is going to get a central line and an a-line placed today per Dr. Hector. Patient is on IV heparin. EKG reveals sinus mechanism. Left axis deviation. Repeat EKG reveals atrial fibrillation with RVR with ST depression in lateral leads Chest xray interval noticeable improvement and interstitium suggestive of resolving venous congestion or interstitial pneumonitis. Improving basilar atelectasis or infiltrate. Laboratory data: WBC 12.6. Hemoglobin 8.5. Platelet count 231. Sodium 138. Potassium 3.7. BUN 34. Creatinine 1.26. BNP 15,800. Troponin 0.465. Previous troponin in August 2020 was 14.3. Current home cardiac medications include hydralazine 25 mg twice a day, carvedilol 6.25 mg twice a day, Lipitor 40 g daily, aspirin 81 mg daily, and Eliquis 5 mg twice a day Most recent echocardiogram obtained in 09/21/2020 revealed ejection fraction 45- 50%, basal inferior, mid inferior, apical septum LV wall akinesis, mild mitral regurgitation, and mild tricuspid regurgitation Cardiac catheterization history: July 2019 revealing triple vessel disease with total occlusion of RCA, critical lesion in the mid LAD, and also first diagonal and OM branch 09/28/2020 Patient examined this morning at the bedside. He remains intubated on mechanical ventilation. Telemetry reveals sinus mechanism. He remains on IV amio. 10/02/2020 Patient examined this morning at the bedside. Patient denies chest pain or pressure. He denies shortness of breath. Telemetry reveals sinus mechanism. He is on oral amiodarone. PHYSICAL EXAM: VITAL SIGNS: Reviewed. GENERAL: Well-developed in no acute distress HEENT: Head is normocephalic. Pupils are equal, round. Sclerae anicteric. Mucous membranes of the mouth are moist. Neck supple. No JVD or thyromegaly LUNGS: Respirations even and unlabored. Lungs diminished bilaterally. HEART: Regular rate and rhythm. S1 and S2 heard. ABDOMEN: Soft. Nondistended. Nontender. EXTREMITIES: Normal range of motion. No clubbing or cyanosis. Peripheral pulses intact. Trace bilateral lower extremity edema ASSESSMENT: Acute hypoxic respiratory failure requiring mechanical ventilation Paroxysmal atrial fibrillation with RVR, status post cardioversion in ER Chronic diastolic heart failure, ejection fraction for 45-50% Hypertension Hyperlipidemia Coronary artery disease with previous PCI to RCA and CABG 3 in July 2019 Acute kidney injury, creatinine 1.34 on admission Marijuana use PLAN: Continue current cardiac medications Patient may be discharged home today from a cardiac standpoint Nurse practitioner note has been reviewed by physician. Signing provider agrees with the documented findings, assessment, and plan of care. Objective - Vital Signs Vital signs: Vital Signs Temp 98.2 F 10/02/20 08:00 Pulse 83 10/02/20 08:00 Resp 16 10/02/20 08:00 BP 135/75 10/02/20 08:00 Pulse Ox 98 10/02/20 08:00 Intake & Output 10/01/20 10/02/20 10/02/20 18:59 06:59 18:59 Intake Total 448.616 720 400 Output Total 300 1225 Balance 148.616 -505 400 Weight 72 kg 64.5 kg Intake: IV 100 cefTRIAXone 1 gm In 100 Sodium Chloride 0.9% 50 ml @ 100 mls/hr IVPB Q24HR [facility] Rx#:[id number] Intake, IV Titration 348.616 Amount Amiodarone 360 mg In 100 Dextrose 5% in Water 200 ml @ 1 MG/MIN 33.333 mls/ hr IV .Q6H [facility] Rx#: [id number] Amiodarone 450 mg In 248.616 Dextrose 5% in Water 250 ml @ 0.5 MG/MIN 16.667 mls/hr IV .Q15H [facility] Rx#: [id number] Oral 720 400 Output: Urine 300 1225 Other: Voiding Method Urinal Urinal Urinal Diaper Diaper Diaper ABP, PAP, CO, CI - Last Documented Arterial Blood Pressure 147/81 - Labs CBC & Chem 7: 10/02/20 07:18 10/02/20 07:18 Labs: Abnormal Lab Results - Last 24 Hours (Table) 10/01/20 10/01/20 10/02/20 Range/Units 16:46 20:20 05:57 RBC (4.30-5.90) m/uL Hgb (13.0-17.5) gm/dL Hct (39.0-53.0) % Chloride (98-107) mmol/L Carbon Dioxide (22-30) mmol/L BUN (9-20) mg/dL Glucose (74-99) mg/dL POC Glucose (mg/dL) 290 H 161 H 260 H (75-99) mg/dL Alkaline Phosphatase (38-126) U/L Total Protein (6.3-8.2) g/dL Albumin (3.5-5.0) g/dL 10/02/20 10/02/20 Range/Units 07:18 07:18 RBC 3.29 L (4.30-5.90) m/uL Hgb 10.2 L (13.0-17.5) gm/dL Hct 30.8 L (39.0-53.0) % Chloride 108 H (98-107) mmol/L Carbon Dioxide 21 L (22-30) mmol/L BUN 28 H (9-20) mg/dL Glucose 116 H (74-99) mg/dL POC Glucose (mg/dL) (75-99) mg/dL Alkaline Phosphatase 138 H (38-126) U/L Total Protein 6.0 L (6.3-8.2) g/dL Albumin 3.2 L (3.5-5.0) g/dL
== END 2020-10-02 12:12 | disposition home or self-care (01) | DRG 871 ==
LOC: EC 20:09 → 2SICU 22:45 → 3SCARD 09-30 17:42
PROVIDERS: ADMIT Family Medicine; ATTEND Family Medicine
PROC: 5A1945Z Respiratory Ventilation, 24-96 Consecutive Hours (ICD-10-PCS; principal; 2020-09-26)
PROC: 0BH17EZ Insertion of Endotracheal Airway into Trachea, Via Natural or Artificial Opening (ICD-10-PCS; principal; 2020-09-26)
PROC: 5A2204Z Restoration of Cardiac Rhythm, Single (ICD-10-PCS; 2020-09-26)
PROC: 3E043XZ Introduction of Vasopressor into Central Vein, Percutaneous Approach (ICD-10-PCS; 2020-09-26)
PROC: 05H633Z Insertion of Infusion Device into Left Subclavian Vein, Percutaneous Approach (ICD-10-PCS; 2020-09-27)
PROC: 03HY32Z Insertion of Monitoring Device into Upper Artery, Percutaneous Approach (ICD-10-PCS; 2020-09-28)
PROC: 4A133B1 Monitoring of Arterial Pressure, Peripheral, Percutaneous Approach (ICD-10-PCS; 2020-09-28)
PROC: 4A133J1 Monitoring of Arterial Pulse, Peripheral, Percutaneous Approach (ICD-10-PCS; 2020-09-28)
DX: A41.9 Sepsis, unspecified organism (principal); J18.9 Pneumonia, unspecified organism; J96.21 Acute and chronic respiratory failure with hypoxia; E87.3 Alkalosis; F23 Brief psychotic disorder; I47.2 Ventricular tachycardia; I48.20 Chronic atrial fibrillation, unspecified; I50.32 Chronic diastolic (congestive) heart failure; J44.0 Chronic obstructive pulmonary disease with (acute) lower respiratory infection; J98.11 Atelectasis; E11.9 Type 2 diabetes mellitus without complications; Z20.822 Contact with and (suspected) exposure to COVID-19; E78.5 Hyperlipidemia, unspecified; R45.1 Restlessness and agitation; G89.29 Other chronic pain; M79.604 Pain in right leg; M54.9 Dorsalgia, unspecified; M79.605 Pain in left leg; I11.0 Hypertensive heart disease with heart failure; I25.2 Old myocardial infarction; Z87.891 Personal history of nicotine dependence; I25.10 Atherosclerotic heart disease of native coronary artery without angina pectoris; I25.5 Ischemic cardiomyopathy; I48.0 Paroxysmal atrial fibrillation; K21.9 Gastro-esophageal reflux disease without esophagitis; Z79.01 Long term (current) use of anticoagulants; Z79.4 Long term (current) use of insulin; Z79.82 Long term (current) use of aspirin; Z79.899 Other long term (current) drug therapy; Z82.49 Family history of ischemic heart disease and other diseases of the circulatory system; Z83.3 Family history of diabetes mellitus; Z87.440 Personal history of urinary (tract) infections; Z91.14 Patient's other noncompliance with medication regimen; Z95.1 Presence of aortocoronary bypass graft; Z95.5 Presence of coronary angioplasty implant and graft; Z86.19 Personal history of other infectious and parasitic diseases; Z79.891 Long term (current) use of opiate analgesic; Z98.890 Other specified postprocedural states; Z83.2 Family history of diseases of the blood and blood-forming organs and certain disorders involving the immune mechanism
CPT/HCPCS: 31500; 36415; 36600; 71045; 80048; 80053; 82533; 82805; 83605; 83735; 83880; 84145; 84484; 85025; 85379; 85610; 85730; 87070; 87205; 87635; 93005; 94002; 94003; 94640; 94760; 96361; 96365; 96368; 96375; 99291

== ENCOUNTER 2021-01-31 08:10 | Observation (INO) | payer MEDICARE, OTHER ==
[2021-01-31] MEDS ORDERED: IPRATROPIUM-ALBUTEROL 3 ML NEB INHALATION STA (08:37)
--- NOTE | 2021-01-31 08:37 | ED ---
Chest Pain HPI - General Chief Complaint: Chest Pain Stated Complaint: Back pain Time Seen by Provider: 01/31/21 08:15 Source: patient, EMS, RN notes reviewed, old records reviewed Mode of arrival: EMS Limitations: physical limitation - History of Present Illness Initial Comments: 65-year-old male with a history of heart disease diabetes previous cardiac stents who states he had the onset this morning of shortness of breath and later developed chest pain relief from his left side of his back to his anterior chest pain lasted about 5 minutes of the moderate severity. It felt similar to his prior cardiac episodes. He also is having shortness of breath this morning of fevers chills or sweats no other current complaints he is pain-free at this batsheva sarahi [place] Complaint: chest pain, other - Related Data Home Medications Medication Instructions Recorded Confirmed DULoxetine HCL [Cymbalta] 60 mg PO BID 11/16/19 09/26/20 Semaglutide [Ozempic] 0.25 mg SQ WE 11/16/19 09/26/20 glipiZIDE [Glucotrol] 5 mg PO AC-BID 11/16/19 09/26/20 oxyCODONE HCL [oxyCODONE HCL (IR)] 15 mg PO Q8H 03/01/20 09/26/20 Previous Rx's Medication Instructions Recorded Atorvastatin [Lipitor] 40 mg PO DAILY #30 tab 10/24/19 Aspirin 81 mg PO DAILY #30 chew 04/10/20 Amiodarone [Cordarone] 200 mg PO BID #180 tab 10/02/20 Apixaban [Eliquis] 5 mg PO BID #60 tab 10/02/20 Cefuroxime Axetil [Ceftin] 500 mg PO BID 3 Days #6 tab 10/02/20 Insulin Aspart [NovoLOG Flexpen] 10 units SQ AC-TID PRN #0 10/02/20 Insulin Glargine,Hum.rec.anlog 20 unit SQ HS #0 10/02/20 [Basaglar Kwikpen U-100] Metoprolol Tartrate [Lopressor] 50 mg PO BID #60 tab 10/02/20 Pantoprazole [Protonix] 40 mg PO AC-BRKFST #30 tablet. 10/02/20 Allergies Allergy/AdvReac Type Severity Reaction Status Date / Time No Known Allergies Allergy Verified 01/31/21 08:26 Review of Systems ROS Statement: Those systems with pertinent positive or pertinent negative responses have been documented in the HPI. ROS Other: All systems not noted in ROS Statement are negative. Past Medical History Past Medical History: Atrial Fibrillation, Coronary Artery Disease (CAD), Chest Pain / Angina, Diabetes Mellitus, GERD/Reflux, Hyperlipidemia, Hypertension, Myocardial Infarction (SC) Additional Past Medical History / Comment(s): Pt had CABG 07/2019 and had post op Afib/UTI with pseudomonas aeruginosa, ischemic cardiomyopathy, IDDM type II, past R scrotal abscess with sepsis, chronic lower back pain and bilateral leg pain, Last Myocardial Infarction Date:: 03/20/15 History of Any Multi-Drug Resistant Organisms: None Reported Past Surgical History: Back Surgery, Coronary Bypass/CABG, Heart Catheterization, Heart Catheterization With Stent, Orthopedic Surgery Additional Past Surgical History / Comment(s): 08/23/2019 CABG 3 vessels, PCI with total of 5 stents, L ankle ligament repair, R leg ORIF, low back surgery, colonoscopy. Past Anesthesia/Blood Transfusion Reactions: No Reported Reaction Additional Past Anesthesia/Blood Transfusion Reaction / Comment(s): Pt has received blood in past without reaction. Date of Last Stent Placement:: 02/2015 Past Psychological History: No Psychological Hx Reported Smoking Status: Former smoker Past Alcohol Use History: None Reported Past Drug Use History: Marijuana - Past Family History Sister(s) Family Medical History: Coronary Artery Disease (CAD), Hypertension Father Family Medical History: Coronary Artery Disease (CAD), Diabetes Mellitus, Deep Vein Thrombosis (DVT), Hypertension Additional Family Medical History / Comment(s): Father at age 58yrs. He of blood clot from leg injury that went to his heart. General Exam - General Exam Comments Initial Comments: This is a well-developed well-nourished awake alert oriented times 3 male Limitations: physical limitation General appearance: alert, in no apparent distress Head exam: Present: atraumatic, normocephalic, normal inspection Eye exam: Present: normal appearance, PERRL, EOMI. Absent: scleral icterus, conjunctival injection, periorbital swelling ENT exam: Present: normal exam, mucous membranes moist Neck exam: Present: normal inspection, full ROM. Absent: tenderness, meningismus, lymphadenopathy Respiratory exam: Present: decreased breath sounds. Absent: respiratory distre ss, wheezes, rales, rhonchi, stridor Cardiovascular Exam: Present: regular rate, normal rhythm, normal heart sounds. Absent: systolic murmur, diastolic murmur, rubs, gallop, clicks GI/Abdominal exam: Present: soft, normal bowel sounds. Absent: distended, tenderness, guarding, rebound, rigid Extremities exam: Present: normal inspection, full ROM, normal capillary refill. Absent: tenderness, pedal edema, joint swelling, calf tenderness Back exam: Present: normal inspection Neurological exam: Present: alert, oriented X3, CN II-XII intact Psychiatric exam: Present: normal affect, normal mood Skin exam: Present: warm, dry, intact, normal color. Absent: rash Course Vital Signs 01/31/21 01/31/21 01/31/21 08:21 08:26 08:36 Temperature 97.6 F Pulse Rate 65 66 Respiratory 18 18 18 Rate Blood Pressure 167/83 189/97 O2 Sat by Pulse 85 L 92 L Oximetry 01/31/21 01/31/21 01/31/21 09:25 09:44 09:52 Temperature Pulse Rate 74 68 66 Respiratory 18 Rate Blood Pressure 168/89 O2 Sat by Pulse 97 Oximetry 01/31/21 01/31/21 10:00 11:00 Temperature Pulse Rate 66 61 Respiratory 18 18 Rate Blood Pressure 171/85 174/84 O2 Sat by Pulse 94 L 94 L Oximetry Chest Pain MDM - MDM Did review the imaging and report evidence of CHF. Patient's had no further chest pain.. Patient will be admitted I discuss case with Dr. Jeffries who did come see the patient in the emergency department. Critical Care Time Critical Care Time: Yes Total Critical Care Time: 31 Critical Care Time: Critical care time includes initial presentation with history physical labs x- rays several reevaluation the patient review of old charting discussed with patient regarding findings discussed with the admitting physician admission orders and documentation the above Disposition Clinical Impression: Marijuana dependence, Congestive heart failure (CHF), Atypical chest pain Disposition: ADMITTED IP TO THIS [facility] Condition: Fair Referrals: Puma Lovell MD [Primary Care Provider] - 1-2 days
[2021-01-31 08:45] LABS: Basophils # (A) 0.1 k/uL (0-0.2); Basophils % (A) 0 %; Eosinophils # (A) 0.2 k/uL (0-0.7); Eosinophils % (A) 2 %; HCT 39.4 % (39.0-53.0); HGB 12.2 gm/dL (13.0-17.5); Hypochromasia Slight; Lymphocytes # (A) 0.9 k/uL (1.0-4.8); Lymphocytes % (A) 8 %; MCH 27.6 pg (25.0-35.0); MCHC 31.1 g/dL (31.0-37.0); MCV 88.9 fL (80.0-100.0); Mean Platelet Volume 6.9; Monocytes # (A) 0.7 k/uL (0-1.0); Monocytes % (A) 6 %; Neutrophils # (A) 9.7 k/uL (1.3-7.7); Neutrophils % (A) 84 %; Platelet Count 406 k/uL (150-450); RBC 4.43 m/uL (4.30-5.90); WBC 11.6 k/uL (3.8-10.6)
[2021-01-31 08:57] LABS: ALT 35 U/L (4-49); AST 30 U/L (17-59); African American GFR (CKD) >90 (>60 ml/min/1.73 sqM); Albumin 3.9 g/dL (3.5-5.0); Alkaline Phosphatase 162 U/L (38-126); Anion Gap 9 mmol/L; Blood Urea Nitrogen 24 mg/dL (9-20); Calcium 9.4 mg/dL (8.4-10.2); Carbon Dioxide 28 mmol/L (22-30); Chloride 103 mmol/L (98-107); Glucose 251 mg/dL (74-99); Magnesium 1.9 mg/dL (1.6-2.3); Non-African American GFR(CKD) 79 (>60 ml/min/1.73 sqM); Potassium 3.3 mmol/L (3.5-5.1); Sodium 140 mmol/L (137-145); Total Bilirubin 0.4 mg/dL (0.2-1.3); Total Protein 6.9 g/dL (6.3-8.2)
[2021-01-31 09:05] LABS: INR 0.9 (<1.2); Partial Thromboplastin Time 26.1 sec (22.0-30.0); Prothrombin Time 9.5 sec (9.0-12.0)
--- NOTE | 2021-01-31 09:18 | XR ---
EXAMINATION TYPE: XR chest 2V DATE OF EXAM: 01/31/2021 COMPARISON: Chest x-ray September 30, 2020 HISTORY: Chest pain and shortness of breath for one day. TECHNIQUE: Frontal and lateral views of the chest are obtained. FINDINGS: Overlying Sternal wires and mediastinal clips are redemonstrated. Stable mild cardiomegaly. Chronic parenchymal changes with new small left pleural effusion and mild interstitial edema. The os seous structures are intact. IMPRESSION: New mild interstitial edema and small left pleural effusion. Correlate for CHF exacerbat ion.
[2021-01-31] MEDS ORDERED: FUROSEMIDE 10 MG/ML 4 ML VIAL IV STA (11:52)
[2021-01-31] MEDS ORDERED: NITROGLYCERIN OINT 1 INCH/GM PACKET TOPICAL STA (11:55)
[2021-01-31] MEDS ORDERED: INSULIN ASPART (NovoLOG) 100 UNIT/ML VIAL SQ PRN (11:55)
[2021-01-31] MEDS ORDERED: POTASSIUM CHLORIDE ER 20 MEQ TAB.ER PO STA ×2 (11:58→14:01)
[2021-01-31] MEDS: FUROSEMIDE 10 MG/ML 4 ML VIAL IV SCH ×2 (12:02→19:42)
--- NOTE | 2021-01-31 14:05 | P.HPIM ---
History of Present Illness Patient is a pleasant 65-year-old male with known history of can start failure EF of around 45% may have diastolic dysfunction given compensative shortness of breath and orthopnea which started yesterday. Patient says he is competent to with his low-sodium diet and patient does have history of atrial fibrillation coronary artery disease with stents in the past. Patient does have pulmonary edema on the chest x-ray and BNP is around 7500. Patient does have peripheral edema as well. Patient is not on any Lasix at home but does use hydrochlorothiazide for blood pressure as an outpatient. Patient is on PRAMOD inhibitor. Patient denied any fever chills does have some leukocytosis denied any significant cough with sputum production. Patient was also having the some mild chest pressure as well which resolved at this time. REVIEW OF SYSTEMS: CONSTITUTIONAL: No fever, no malaise, no fatigue. HEENT: No recent visual problems or hearing problems. Denied any sore throat. CARDIOVASCULAR: No chest pain, orthopnea, PND, no palpitations, no syncope. PULMONARY: no hemoptysis. GASTROINTESTINAL: No diarrhea, no nausea, no vomiting, no abdominal pain. NEUROLOGICAL: No headaches, no weakness, no numbness. HEMATOLOGICAL: Denies any bleeding or petechiae. GENITOURINARY: Denies any burning micturition, frequency, or urgency. MUSCULOSKELETAL/RHEUMATOLOGICAL: Denies any joint pain, swelling, or any muscle pain. ENDOCRINE: Denies any polyuria or polydipsia. The rest of the 14-point review of systems is negative. PHYSICAL EXAMINATION: GENERAL: The patient is alert and oriented x3, not in any acute distress. Well developed, well nourished. HEENT: Pupils are round and equally reacting to light. EOMI. No scleral icterus. No conjunctival pallor. Normocephalic, atraumatic. No pharyngeal erythema. No thyromegaly. CARDIOVASCULAR: S1 and S2 present. No murmurs, rubs, or gallops. Elevated JVD PULMONARY: Chest is clear to auscultation, no wheezing or crackles. ABDOMEN: Soft, nontender, nondistended, normoactive bowel sounds. No palpable organomegaly. MUSCULOSKELETAL: No joint swelling or deformity. EXTREMITIES: No cyanosis, clubbing, or does have pedal edema or pedal edemaoss neurological examination did not reveal any focal deficits. SKIN: No rashes. Assessment and plan -Shortness of breath: Secondary to cut his heart failure chronic systolic dysfunction with acute exacerbation. Patient was started on IV Lasix and monitor I's and O's want a kidney function -Hypokalemia potassium will be replaced -Type 2 diabetes mellitus uncontrolled elevated blood sugars patient was started on home regimen along with sliding scale -Atrial fibrillation: Possible paroxysmal A. fib, presently rate controlled continue with home regimen -Coronary artery disease: With the CABG and stents in the past -Hyperlipidemia next and-hypertension DVT prophylaxis: On Eliquis Past Medical History Past Medical History: Atrial Fibrillation, Coronary Artery Disease (CAD), Chest Pain / Angina, Diabetes Mellitus, GERD/Reflux, Hyperlipidemia, Hypertension, Myocardial Infarction (SC) Additional Past Medical History / Comment(s): Pt had CABG 07/2019 and had post op Afib/UTI with pseudomonas aeruginosa, ischemic cardiomyopathy, IDDM type II, past R scrotal abscess with sepsis, chronic lower back pain and bilateral leg pain, Last Myocardial Infarction Date:: 03/20/15 History of Any Multi-Drug Resistant Organisms: None Reported Past Surgical History: Back Surgery, Coronary Bypass/CABG, Heart Catheterization, Heart Catheterization With Stent, Orthopedic Surgery Additional Past Surgical History / Comment(s): 08/23/2019 CABG 3 vessels, PCI with total of 5 stents, L ankle ligament repair, R leg ORIF, low back surgery, colonoscopy. Past Anesthesia/Blood Transfusion Reactions: No Reported Reaction Additional Past Anesthesia/Blood Transfusion Reaction / Comment(s): Pt has received blood in past without reaction. Date of Last Stent Placement:: 02/2015 Past Psychological History: No Psychological Hx Reported Smoking Status: Former smoker Past Alcohol Use History: None Reported Past Drug Use History: Marijuana - Past Family History Sister(s) Family Medical History: Coronary Artery Disease (CAD), Hypertension Father Family Medical History: Coronary Artery Disease (CAD), Diabetes Mellitus, Deep Vein Thrombosis (DVT), Hypertension Additional Family Medical History / Comment(s): Father at age 58yrs. He of blood clot from leg injury that went to his heart. Medications and Allergies Home Medications Medication Instructions Recorded Confirmed Type DULoxetine HCL [Cymbalta] 60 mg PO BID 11/16/19 01/31/21 History Semaglutide [Ozempic] 0.5 mg SQ Q7D 11/16/19 01/31/21 History glipiZIDE [Glucotrol] 5 mg PO AC-BID 11/16/19 01/31/21 History oxyCODONE HCL [oxyCODONE HCL (IR)] 15 mg PO Q8H 03/01/20 01/31/21 History Aspirin 81 mg PO DAILY #30 chew 04/10/20 01/31/21 Rx Apixaban [Eliquis] 5 mg PO BID #60 tab 10/02/20 01/31/21 Rx Metoprolol Tartrate [Lopressor] 50 mg PO BID #60 tab 10/02/20 01/31/21 Rx Pantoprazole [Protonix] 40 mg PO AC-BRKFST #30 tablet.dr 10/02/20 01/31/21 Rx Amiodarone [Cordarone] 200 mg PO DAILY 01/31/21 01/31/21 History Atorvastatin [Lipitor] 40 mg PO HS 01/31/21 01/31/21 History Insulin Aspart [NovoLOG Flexpen] See Protocol SQ AC-TID 01/31/21 01/31/21 [facility] Insulin Glargine,Hum.rec.anlog 25 unit SQ DAILY 01/31/21 01/31/21 History [Lantus Solostar Pen] Lisinopril-Hctz 20-12.5 mg 1 tab PO BID 01/31/21 01/31/21 History [Zestoretic 20-12.5] metFORMIN HCL [Glucophage] 1,000 mg PO BID 01/31/21 01/31/21 History oxyCODONE ER [OxyCONTIN] 80 mg PO Q12H 01/31/21 01/31/21 History rOPINIRole HCL [Requip] 1 mg PO BID 01/31/21 01/31/21 History Allergies Allergy/AdvReac Type Severity Reaction Status Date / Time No Known Allergies Allergy Verified 01/31/21 08:26 Physical Exam Vitals: Vital Signs Temp Pulse Resp BP Pulse Ox 01/31/21 11:00 61 18 174/84 94 L 01/31/21 10:00 66 18 171/85 94 L 01/31/21 09:52 66 01/31/21 09:44 68 01/31/21 09:25 74 18 168/89 97 01/31/21 08:36 18 01/31/21 08:26 66 18 189/97 92 L 01/31/21 08:21 97.6 F 65 18 167/83 85 L Intake and Output 01/30/21 01/31/21 01/31/21 22:59 06:59 14:59 Other: Weight 76.657 kg Results CBC & Chem 7: 01/31/21 08:33 01/31/21 08:33 Labs: Abnormal Lab Results - Last 24 Hours (Table) 01/31/21 01/31/21 Range/Units 08:33 08:33 WBC 11.6 H (3.8-10.6) k/uL Hgb 12.2 L (13.0-17.5) gm/dL RDW 16.0 H (11.5-15.5) % Neutrophils # 9.7 H (1.3-7.7) k/uL Lymphocytes # 0.9 L (1.0-4.8) k/uL Potassium 3.3 L (3.5-5.1) mmol/L BUN 24 H (9-20) mg/dL Glucose 251 H (74-99) mg/dL Alkaline Phosphatase 162 H (38-126) U/L
[2021-01-31] MEDS: oxyCODONE ER 20 MG TAB.ER.12H PO SCH (18:02)
[2021-01-31 18:07] LABS: Glucose,Whole Blood 185 mg/dL (75-99)
[2021-01-31] MEDS: INSULIN ASPART (NovoLOG) 100 UNIT/ML VIAL SQ SCH ×2 (18:22→20:52)
[2021-01-31] MEDS ORDERED: Potassium Replacement Protocol 1 EACH MISC MISCELLANE PRN (18:50)
[2021-01-31] MEDS: POTASSIUM CHLORIDE ER 20 MEQ TAB.ER PO SCH ×2 (19:42→20:54)
[2021-01-31] MEDS: AMIODARONE 200 MG TAB PO SCH (19:43)
[2021-01-31] MEDS: APIXABAN 5 MG TAB PO SCH (19:43)
[2021-01-31] MEDS: DULoxetine HCL 60 MG CAPSULE.DR PO SCH (19:44)
[2021-01-31] MEDS: METOPROLOL TARTRATE 50 MG TAB PO SCH (19:44)
[2021-01-31] MEDS: glipiZIDE 5 MG TAB PO SCH (20:53)
[2021-01-31] MEDS ORDERED: ATORVASTATIN 40 MG TAB PO SCH (21:00)
[2021-01-31] MEDS ORDERED: INSULIN DETEMIR (LEVEMIR) 100 UNIT/ML SYR SQ SCH (21:00)
[2021-01-31 21:08] LABS: Glucose,Whole Blood 93 mg/dL (75-99)
[2021-02-01] MEDS: FUROSEMIDE 10 MG/ML 4 ML VIAL IV SCH ×2 (03:10→12:46)
[2021-02-01 05:53] LABS: Glucose,Whole Blood 166 mg/dL (75-99)
[2021-02-01] MEDS: INSULIN ASPART (NovoLOG) 100 UNIT/ML VIAL SQ SCH ×2 (06:22→12:43)
[2021-02-01] MEDS: glipiZIDE 5 MG TAB PO SCH (06:22)
[2021-02-01] MEDS ORDERED: INSULIN DETEMIR (LEVEMIR) 100 UNIT/ML SYR SQ SCH (07:00)
[2021-02-01] MEDS ORDERED: PANTOPRAZOLE 40 MG TABLET PO SCH (07:30)
[2021-02-01] MEDS ORDERED: ASPIRIN 81 MG PO SCH (09:00)
[2021-02-01] MEDS ORDERED: ATORVASTATIN 40 MG TAB PO SCH (09:00)
[2021-02-01] MEDS ORDERED: AMIODARONE 200 MG TAB PO SCH (09:00)
[2021-02-01] MEDS: oxyCODONE ER 20 MG TAB.ER.12H PO SCH (09:14)
[2021-02-01] MEDS: METOPROLOL TARTRATE 50 MG TAB PO SCH (09:15)
[2021-02-01] MEDS: AMIODARONE 200 MG TAB PO SCH (09:15)
[2021-02-01] MEDS: APIXABAN 5 MG TAB PO SCH (09:15)
[2021-02-01] MEDS: DULoxetine HCL 60 MG CAPSULE.DR PO SCH (09:15)
[2021-02-01 10:03] LABS: Calcium 9.5 mg/dL (8.4-10.2); Potassium 3.9 mmol/L (3.5-5.1)
[2021-02-01 10:09] LABS: Anisocytosis Slight; Basophils % (A) 0 %; Eosinophils # (A) 0.1 k/uL (0-0.7); Eosinophils % (A) 2 %; HCT 41.9 % (39.0-53.0); HGB 13.5 gm/dL (13.0-17.5); Lymphocytes # (A) 1.7 k/uL (1.0-4.8); Lymphocytes % (A) 18 %; MCH 27.7 pg (25.0-35.0); MCHC 32.1 g/dL (31.0-37.0); MCV 86.3 fL (80.0-100.0); Mean Platelet Volume 6.8; Monocytes # (A) 0.7 k/uL (0-1.0); Monocytes % (A) 8 %; Neutrophils # (A) 6.3 k/uL (1.3-7.7); Neutrophils % (A) 70 %; Platelet Count 431 k/uL (150-450); RBC 4.86 m/uL (4.30-5.90); RDW 16.4 % (11.5-15.5)
[2021-02-01 11:55] LABS: Glucose,Whole Blood 83 mg/dL (75-99)
--- NOTE | 2021-02-01 12:59 | P.PN ---
Subjective Progress Note Date: 02/01/21 Patient is a pleasant 65-year-old male with known history of can start failure EF of around 45% may have diastolic dysfunction given compensative shortness of breath and orthopnea which started yesterday. Patient says he is competent to with his low-sodium diet and patient does have history of atrial fibrillation coronary artery disease with stents in the past. Patient does have pulmonary edema on the chest x-ray and BNP is around 7500. Patient does have peripheral edema as well. Patient is not on any Lasix at home but does use hydrochlorothiazide for blood pressure as an outpatient. Patient is on PRAMOD inhibitor. Patient denied any fever chills does have some leukocytosis denied any significant cough with sputum production. Patient was also having the some mild chest pressure as well which resolved at this time. 02/01/2021 Patient is evaluated today resting the bed. He denies any cough, shortness of breath. He denies any chest pain, chest pressure or palpitations. He states his breathing has improved since admission. Patient denies any current alcohol use, he does report smoking marijuana daily. We're pending a cardiology consultation. Labs today show a chloride of 97, CO2 37, glucose 110. Troponin has been negative. Vitals include a blood pressure 148/81, 95% room air, a febrile. Heart rate is in 60s with sinus rhythm EKG showing first-degree AV block. He has a history of atrial fibrillation. Patient does take oxycodone for chronic pain he states that he has had a back injury. At the time assessment he denies any pain. We will continue with ordered dose of oxycodone. REVIEW OF SYSTEMS: Constitutional: Denied any fatigue denied any fever. Cardio vascular: denied any chest pain, palpitations Gastrointestinal denied any nausea vomiting Pulmonary: Denied any shortness of breath cough Neurologic denied any new focal deficits All inpatient medications were reviewed and appropriate changes in these medications as dictated in the interval history and assessment and plan. PHYSICAL EXAMINATION: GENERAL: The patient is alert and oriented x3, not in any acute distress. Well developed, well nourished. HEENT: Pupils are round and equally reacting to light. EOMI. No scleral icterus. No conjunctival pallor. Normocephalic, atraumatic. No pharyngeal erythema. No thyromegaly. CARDIOVASCULAR: S1 and S2 present. No murmurs, rubs, or gallops. Elevated JVD PULMONARY: Chest is clear to auscultation, no wheezing or crackles. ABDOMEN: Soft, nontender, nondistended, normoactive bowel sounds. No palpable organomegaly. MUSCULOSKELETAL: No joint swelling or deformity. EXTREMITIES: No cyanosis, clubbing, or does have pedal edema or pedal edemaoss neurological examination did not reveal any focal deficits. SKIN: No rashes. Assessment and plan -Shortness of breath due to CHF -Chronic congestive heart failure, diastolic and systolic, most recent EF 45 to 50%. -Hypokalemia, repleted -Type 2 diabetes mellitus uncontrolled elevated blood sugars patient was started on home regimen along with sliding scale -Atrial fibrillation: Possible paroxysmal A. fib, presently rate controlled continue with home regimen -Coronary artery disease: History of CABG and stents in the past -Hyperlipidemia -hypertension DVT prophylaxis: On Eliquis Objective - Vital Signs Vital signs: Vital Signs Temp 97.0 F L 02/01/21 08:00 Pulse 68 02/01/21 08:00 Resp 18 02/01/21 03:27 BP 148/81 02/01/21 08:00 Pulse Ox 95 02/01/21 08:00 Intake & Output 01/31/21 02/01/21 02/01/21 18:59 06:59 18:59 Intake Total 600 Output Total 3250 Balance -3250 600 Weight 76.657 kg 74.5 kg Intake: Oral 600 Output: Urine 3250 Other: Voiding Method Toilet Urinal # Voids 3 - Labs CBC & Chem 7: 02/01/21 09:22 02/01/21 09:22 Labs: Abnormal Lab Results - Last 24 Hours (Table) 01/31/21 02/01/21 02/01/21 Range/Units 18:06 05:52 09:22 RDW 16.4 H (11.5-15.5) % Chloride (98-107) mmol/L Carbon Dioxide (22-30) mmol/L BUN (9-20) mg/dL Glucose (74-99) mg/dL POC Glucose (mg/dL) 185 H 166 H (75-99) mg/dL 02/01/21 Range/Units 09:22 RDW (11.5-15.5) % Chloride 97 L (98-107) mmol/L Carbon Dioxide 37 H (22-30) mmol/L BUN 25 H (9-20) mg/dL Glucose 110 H (74-99) mg/dL POC Glucose (mg/dL) (75-99) mg/dL Assessment and Plan Time with Patient: Greater than 30
[2021-02-01 13:14] VITALS: BMI 25.7
[2021-02-01 16:12] VITALS: BP 141/90; PULSE 68; RESP 17; TEMP 98
--- NOTE | 2021-02-01 22:27 | P.DS ---
Providers Date of admission: 01/31/21 11:55 Attending physician: Connie Jeffries Primary care physician: Puma Lovell MD Hospital Course: Final Diagnosis -Shortness of breath due to CHF -Chronic congestive heart failure, diastolic and systolic, most recent EF 45 to 50%. -Hypokalemia, repleted -Type 2 diabetes mellitus uncontrolled elevated blood sugars patient was started on home regimen along with sliding scale -Atrial fibrillation: Possible paroxysmal A. fib, presently rate controlled continue with home regimen -Coronary artery disease: History of CABG and stents in the past -Hyperlipidemia -hypertension Discharge Disposition Patient is discharged home in stable condition. States that his shortness of breath has improved, there is no peripheral edema noted, and he denies any chest pain, chest pressure, palpitations. He feels well for discharge and will follow up with cardiology in the office. Hospital Course This is a pleasant 65 year old male who presented to the with complaints of compensative shortness of breath and orthopnea which started yesterday. He has a past medical history significant for atrial fibrillation, coronary artery disease with previous stents, heart failure with an EF of around 56% probably dystolic dysfunction. Chest xray on admission shows pulmonary edema and his BNP was 7500. Patient was not currently taking lasix at home and was on hydrochlorothiazide. We treat with IV lasix 40 mg Q8h, and patient responded well. We discharged on oral lasix 40 mg PO BID, and started the patient on lisinopril 20 mg po daily, as well as oral potassium. We discontinued the zestoretic. CBC is unremarkable, potassium is 3.9, sodium 142, creatinine 1.07. Troponins were negative x 3. 02/01/2021 Patient is evaluated today resting the bed. He denies any cough, shortness of breath. He denies any chest pain, chest pressure or palpitations. He states his breathing has improved since admission. Patient denies any current alcohol use, he does report smoking marijuana daily. We're pending a cardiology consultation. Labs today show a chloride of 97, CO2 37, glucose 110. Troponin has been negative. Vitals include a blood pressure 148/81, 95% room air, afebrile. Heart rate is in 60s with sinus rhythm EKG showing first-degree AV block. He has a history of atrial fibrillation. Patient does take oxycodone for chronic pain he states that he has had a back injury. At the time assessment he denies any pain. We will continue with ordered dose of oxycodone. Patient can be discharged home on recommended medications. Please see progress note dated 02/01/2021 for additional information. Please see medication reconciliation for a list of current medications. Thank your for allowing us to participate in the care of this patient. Patient Condition at Discharge: Fair Plan - Discharge Summary Discharge Rx Participant: No New Discharge Prescriptions: New lisinopriL 20 mg PO DAILY #30 tablet Furosemide [Lasix] 40 mg PO BID 30 Days #60 tablet Continue DULoxetine HCL [Cymbalta] 60 mg PO BID glipiZIDE [Glucotrol] 5 mg PO AC-BID Semaglutide [Ozempic] 0.5 mg SQ Q7D oxyCODONE HCL [oxyCODONE HCL (IR)] 15 mg PO Q8H Aspirin 81 mg PO DAILY #30 chew Apixaban [Eliquis] 5 mg PO BID #60 tab Insulin Glargine,Hum.rec.anlog [Lantus Solostar Pen] 25 unit SQ DAILY Atorvastatin [Lipitor] 40 mg PO HS oxyCODONE ER [OxyCONTIN] 80 mg PO Q12H Metoprolol Tartrate [Lopressor] 50 mg PO BID #60 tab Pantoprazole [Protonix] 40 mg PO AC-BRKFST #30 tablet. rOPINIRole HCL [Requip] 1 mg PO BID Insulin Aspart [NovoLOG Flexpen] See Protocol SQ AC-TID metFORMIN HCL [Glucophage] 1,000 mg PO BID Amiodarone [Cordarone] 200 mg PO DAILY Discontinued Lisinopril-Hctz 20-12.5 mg [Zestoretic 20-12.5] 1 tab PO BID Discharge Medication List DULoxetine HCL [Cymbalta] 60 mg PO BID 11/16/19 [History] Semaglutide [Ozempic] 0.5 mg SQ Q7D 11/16/19 [History] glipiZIDE [Glucotrol] 5 mg PO AC-BID 11/16/19 [History] oxyCODONE HCL [oxyCODONE HCL (IR)] 15 mg PO Q8H 03/01/20 [History] Aspirin 81 mg PO DAILY #30 chew 04/10/20 [Rx] Apixaban [Eliquis] 5 mg PO BID #60 tab 10/02/20 [Rx] Metoprolol Tartrate [Lopressor] 50 mg PO BID #60 tab 10/02/20 [Rx] Pantoprazole [Protonix] 40 mg PO AC-BRKFST #30 tablet. 10/02/20 [Rx] Amiodarone [Cordarone] 200 mg PO DAILY 01/31/21 [History] Atorvastatin [Lipitor] 40 mg PO HS 01/31/21 [History] Insulin Aspart [NovoLOG Flexpen] See Protocol SQ AC-TID 01/31/21 [History] Insulin Glargine,Hum.rec.anlog [Lantus Solostar Pen] 25 unit SQ DAILY 01/31/21 [History] metFORMIN HCL [Glucophage] 1,000 mg PO BID 01/31/21 [History] oxyCODONE ER [OxyCONTIN] 80 mg PO Q12H 01/31/21 [History] rOPINIRole HCL [Requip] 1 mg PO BID 01/31/21 [History] Furosemide [Lasix] 40 mg PO BID 30 Days #60 tablet 02/01/21 [Rx] lisinopriL 20 mg PO DAILY #30 tablet 02/01/21 [Rx] Follow up Appointment(s)/Referral(s): Puma Lovell MD [Primary Care Provider] - 02/20/21 3:45 pm ( ) Donovan Hua MD [STAFF PHYSICIAN] - 02/14/21 11:15 am Ambulatory/Diagnostic Orders: Basic Metabolic Panel [LAB.AMB] Time Frame: 3 Days, Location: None Selected Patient Instructions/Handouts: Heart Failure (DC), Chest Pain (DC) Discharge Disposition: HOME SELF-CARE
--- NOTE | 2021-02-04 12:17 | CDI ---
Documentation Clarification Form Date: 02/04/2021 12:10:27 PM From: Azar Grissom Phone: Admit Date: 01/31/2021 11:55:00 AM Patient Name: Ashok Austin Visit Number: [id number] Discharge Date: 02/01/2021 05:06:00 PM ATTENTION: The Clinical Documentation Specialists (CDI) and [facility] Coding Staff appreciate your assistance in clarifying documentation. Please respond to the clarification below the line at the bottom and electronically sign. The CDI & [facility] Coding staff will review the response and follow-up if needed. Please note: Queries are made part of the Legal Health Record. If you have any questions, please contact the author of this message via ITS. Dr. Connie Jeffries Your patient has the documented diagnosis of chronic combined CHF per the discharge summary. Since BNP is 7500 and IV Lasix given need to clarify the acuity of the CHF. History/Risk Factors: history of combined chronic CHF Clinical Indicators: BNP: 7500 Echocardiogram Results: EF 45-50% Chest X Ray: pulmonary edema Treatment: IV lasix In your professional opinion, can you please clarify the [acuity and type] of CHF if known? [ ] Acute Systolic Heart Failure (reduced EF) [ ] Chronic Systolic Heart Failure (reduced EF) [ ] Acute on Chronic Systolic Heart Failure (reduced EF) [ ] Acute Diastolic Heart Failure (preserved EF) [ ] Chronic Diastolic Heart Failure (preserved EF) [ ] Acute on Chronic Diastolic Heart Failure (preserved EF) [ ] Acute Systolic & Diastolic Heart Failure [ ] Chronic Systolic & Diastolic Heart Failure [ ] Acute on Chronic Heart Failure Systolic & Diastolic Heart Failure [ ] Other, please specify [ ] Unable to determine MTDD
[2021-02-06] MEDS ORDERED: NON FORMULARY DRUG (Semaglutide [Ozempic] 0.25 MG/0.2 ML Pen.Injctr) SQ SCH (11:55)
== END 2021-02-01 17:06 | disposition home or self-care (01) ==
LOC: EC 08:10 → INTOOBSV 11:55 → 3SCARD 11:55 → UNDODISIN 02-01 17:06
PROVIDERS: ADMIT Internal Medicine; ATTEND Internal Medicine
DX: I11.0 Hypertensive heart disease with heart failure (principal); I50.42 Chronic combined systolic (congestive) and diastolic (congestive) heart failure; E11.65 Type 2 diabetes mellitus with hyperglycemia; E87.6 Hypokalemia; Z20.822 Contact with and (suspected) exposure to COVID-19; I48.91 Unspecified atrial fibrillation; I25.10 Atherosclerotic heart disease of native coronary artery without angina pectoris; E78.5 Hyperlipidemia, unspecified; I25.2 Old myocardial infarction; I25.5 Ischemic cardiomyopathy; F12.20 Cannabis dependence, uncomplicated; I44.0 Atrioventricular block, first degree; K21.9 Gastro-esophageal reflux disease without esophagitis; G89.29 Other chronic pain; M54.50 Low back pain, unspecified; M79.604 Pain in right leg; M79.605 Pain in left leg; Z79.01 Long term (current) use of anticoagulants; Z79.4 Long term (current) use of insulin; Z79.82 Long term (current) use of aspirin; Z79.84 Long term (current) use of oral hypoglycemic drugs; Z79.899 Other long term (current) drug therapy; Z95.5 Presence of coronary angioplasty implant and graft; Z95.1 Presence of aortocoronary bypass graft; Z87.891 Personal history of nicotine dependence; Z83.3 Family history of diabetes mellitus; Z82.49 Family history of ischemic heart disease and other diseases of the circulatory system; Z87.440 Personal history of urinary (tract) infections
CPT/HCPCS: 99291; 96376 ×2; 96374; 36415; 94640; 93005; 85379; 83880; 80053; 80048; 83735; 84484; 85025 ×2; 85610; 85730; 87635; 71046; G0378 ×2; J1940 ×2

== ENCOUNTER 2021-02-06 16:46 | Inpatient (IN) | payer MEDICARE, OTHER ==
[2021-02-06] MEDS ORDERED: SODIUM CHLORIDE 0.9% 500 ML 500 ML IV STA (17:12)
[2021-02-06 17:53] LABS: Anisocytosis Slight; Basophils % (A) 0 %; Eosinophils # (A) 0.1 k/uL (0-0.7); Eosinophils % (A) 1 %; HCT 45.7 % (39.0-53.0); Lymphocytes # (A) 1.4 k/uL (1.0-4.8); Lymphocytes % (A) 10 %; MCH 27.7 pg (25.0-35.0); MCHC 32.7 g/dL (31.0-37.0); MCV 84.7 fL (80.0-100.0); Mean Platelet Volume 6.8; Monocytes % (A) 7 %; Neutrophils # (A) 11.5 k/uL (1.3-7.7); Neutrophils % (A) 81 %; Platelet Count 509 k/uL (150-450); RBC 5.39 m/uL (4.30-5.90); RDW 16.1 % (11.5-15.5); WBC 14.1 k/uL (3.8-10.6)
[2021-02-06 17:59] LABS: Albumin 2.6 g/dL (3.5-5.0); Calcium 6.7 mg/dL (8.4-10.2); Magnesium 1.7 mg/dL (1.6-2.3); Total Bilirubin 0.4 mg/dL (0.2-1.3); Total Protein 5.2 g/dL (6.3-8.2)
--- NOTE | 2021-02-06 18:00 | ED ---
General Adult HPI - General Chief complaint: Nausea/Vomiting/Diarrhea Stated complaint: Lethargy Time Seen by Provider: 02/06/21 17:00 Source: patient, EMS, RN notes reviewed, old records reviewed Mode of arrival: EMS - History of Present Illness Initial comments: 65-year-old male who presented with nausea which began today. No associated abdominal pain. Patient was transported by paramedics. He was recently admitted with congestive heart failure. He was discharged on 40 mg of Lasix twice daily. Patient denies chest pain or dyspnea. Denies abdominal pain. Denies fever. - Related Data Home Medications Medication Instructions Recorded Confirmed DULoxetine HCL [Cymbalta] 60 mg PO BID 11/16/19 02/06/21 Semaglutide [Ozempic] 0.5 mg SQ Q7D 11/16/19 02/06/21 glipiZIDE [Glucotrol] 5 mg PO AC-BID 11/16/19 02/06/21 oxyCODONE HCL [oxyCODONE HCL (IR)] 15 mg PO Q8H 03/01/20 02/06/21 Amiodarone [Cordarone] 200 mg PO DAILY 01/31/21 02/06/21 Atorvastatin [Lipitor] 40 mg PO HS 01/31/21 02/06/21 Insulin Aspart [NovoLOG Flexpen] See Protocol SQ AC-TID 01/31/21 02/06/21 Insulin Glargine,Hum.rec.anlog 25 unit SQ DAILY 01/31/21 02/06/21 [Lantus Solostar Pen] metFORMIN HCL [Glucophage] 1,000 mg PO BID 01/31/21 02/06/21 oxyCODONE ER [OxyCONTIN] 80 mg PO Q12H 01/31/21 02/06/21 rOPINIRole HCL [Requip] 1 mg PO BID 01/31/21 02/06/21 Gabapentin [Neurontin] 300 mg PO BID 02/06/21 02/06/21 Previous Rx's Medication Instructions Recorded Aspirin 81 mg PO DAILY #30 chew 04/10/20 Apixaban [Eliquis] 5 mg PO BID #60 tab 10/02/20 Metoprolol Tartrate [Lopressor] 50 mg PO BID #60 tab 10/02/20 Pantoprazole [Protonix] 40 mg PO AC-BRKFST #30 tablet. 10/02/20 Furosemide [Lasix] 40 mg PO BID 30 Days #60 tablet 02/01/21 Potassium Chloride ER [K-Dur 20] 20 meq PO DAILY #30 tab 02/01/21 lisinopriL 20 mg PO DAILY #30 tablet 02/01/21 Allergies Allergy/AdvReac Type Severity Reaction Status Date / Time No Known Allergies Allergy Verified 02/06/21 17:07 Review of Systems ROS Statement: Those systems with pertinent positive or pertinent negative responses have been documented in the HPI. ROS Other: All systems not noted in ROS Statement are negative. Past Medical History Past Medical History: Atrial Fibrillation, Coronary Artery Disease (CAD), Chest Pain / Angina, Diabetes Mellitus, GERD/Reflux, Hyperlipidemia, Hypertension, My ocardial Infarction ([place]) Additional Past Medical History / Comment(s): Pt had CABG 07/2019 and had post op Afib/UTI with pseudomonas aeruginosa, ischemic cardiomyopathy, IDDM type II, past R scrotal abscess with sepsis, chronic lower back pain and bilateral leg pain, Last Myocardial Infarction Date:: 03/20/15 History of Any Multi-Drug Resistant Organisms: None Reported Past Surgical History: Back Surgery, Coronary Bypass/CABG, Heart Catheterization, Heart Catheterization With Stent, Orthopedic Surgery Additional Past Surgical History / Comment(s): 08/23/2019 CABG 3 vessels, PCI with total of 5 stents, L ankle ligament repair, R leg ORIF, low back surgery, colonoscopy. Past Anesthesia/Blood Transfusion Reactions: No Reported Reaction Additional Past Anesthesia/Blood Transfusion Reaction / Comment(s): Pt has received blood in past without reaction. Date of Last Stent Placement:: 02/2015 Past Psychological History: No Psychological Hx Reported Smoking Status: Former smoker Past Alcohol Use History: None Reported Past Drug Use History: Marijuana - Past Family History Sister(s) Family Medical History: Coronary Artery Disease (CAD), Hypertension Father Family Medical History: Coronary Artery Disease (CAD), Diabetes Mellitus, Deep Vein Thrombosis (DVT), Hypertension Additional Family Medical History / Comment(s): Father at age 58yrs. He of blood clot from leg injury that went to his heart. General Exam General appearance: alert, in no apparent distress Head exam: Present: atraumatic, normocephalic Eye exam: Present: normal appearance, PERRL ENT exam: Present: mucous membranes dry Neck exam: Present: normal inspection. Absent: tenderness, meningismus Respiratory exam: Present: normal lung sounds bilaterally. Absent: respiratory distress, wheezes Cardiovascular Exam: Present: regular rate, normal rhythm GI/Abdominal exam: Present: soft. Absent: distended, tenderness, guarding, rebound Extremities exam: Present: normal inspection, normal capillary refill. Absent: pedal edema Neurological exam: Present: alert, oriented X3, CN II-XII intact. Absent: motor sensory deficit Psychiatric exam: Present: normal affect, normal mood Skin exam: Present: warm, dry, intact Course Vital Signs 02/06/21 02/06/21 17:00 18:45 Temperature 97.4 F L Pulse Rate 60 63 Respiratory 18 18 Rate Blood Pressure 88/54 124/92 O2 Sat by Pulse 97 100 Oximetry EKG Findings - EKG Comments: EKG Findings:: EKG: Sinus bradycardia with first-degree AV block no ST segment elevation, possible U wave in the precordial leads rate of 59, PA interval 216, QRS duration 138, QTC 673. Medical Decision Making - Medical Decision Making 65-year-old male presenting with nausea. Patient is hypotensive upon arrival. He states he had a recent admission for congestive heart failure. He has been on diuretics. Patient denying chest pain or shortness of breath. Workup reveals that chronically elevated white blood cell count, stable hemoglobin. He is in acute renal failure with a creatinine of 3.59. His potassium is 2.4. His calcium is 6.7. He has a minimally elevated troponin at 0.06. This may be related to his renal failure. This level will be trended. He is given a small amount of resuscitative volume in the emergency department as well as electric- like replacement. He will be placed on 50 mL of normal saline with 20 mEq of potassium. Will be admitted to Dr. Lovell who is aware. Nephrology on consultation. - Lab Data Result diagrams: 02/06/21 17:36 02/06/21 17:36 Lab Results 02/06/21 02/06/21 02/06/21 Range/Units 17:36 17:36 17:36 WBC 14.1 H (3.8-10.6) k/uL RBC 5.39 (4.30-5.90) m/uL Hgb 15.0 (13.0-17.5) gm/dL Hct 45.7 (39.0-53.0) % MCV 84.7 (80.0-100.0) fL MCH 27.7 (25.0-35.0) pg MCHC 32.7 (31.0-37.0) g/dL RDW 16.1 H (11.5-15.5) % Plt Count 509 H (150-450) k/uL MPV 6.8 Neutrophils % 81 % Lymphocytes % 10 % Monocytes % 7 % Eosinophils % 1 % Basophils % 0 % Neutrophils # 11.5 H (1.3-7.7) k/uL Lymphocytes # 1.4 (1.0-4.8) k/uL Monocytes # 1.0 (0-1.0) k/uL Eosinophils # 0.1 (0-0.7) k/uL Basophils # 0.0 (0-0.2) k/uL Anisocytosis Slight PT 11.9 (9.0-12.0) sec INR 1.1 (<1.2) APTT 30.0 (22.0-30.0) sec Sodium 133 L (137-145) mmol/L Potassium 2.4 L* (3.5-5.1) mmol/L Chloride 99 (98-107) mmol/L Carbon Dioxide 22 (22-30) mmol/L Anion Gap 12 mmol/L BUN 68 H (9-20) mg/dL Creatinine 3.59 H (0.66-1.25) mg/dL Est GFR (CKD-EPI)AfAm 20 (>60 ml/min/1.73 sqM) Est GFR (CKD-EPI)NonAf 17 (>60 ml/min/1.73 sqM) Glucose 168 H (74-99) mg/dL Plasma Lactic Acid Chinedu (0.7-2.0) mmol/L Calcium 6.7 L (8.4-10.2) mg/dL Magnesium 1.7 (1.6-2.3) mg/dL Total Bilirubin 0.4 (0.2-1.3) mg/dL AST 28 (17-59) U/L ALT 15 (4-49) U/L Alkaline Phosphatase 86 (38-126) U/L NT-Pro-B Natriuret Pep pg/mL Total Protein 5.2 L (6.3-8.2) g/dL Albumin 2.6 L (3.5-5.0) g/dL 02/06/21 02/06/21 Range/Units 17:36 17:36 WBC (3.8-10.6) k/uL RBC (4.30-5.90) m/uL Hgb (13.0-17.5) gm/dL Hct (39.0-53.0) % MCV (80.0-100.0) fL MCH (25.0-35.0) pg MCHC (31.0-37.0) g/dL RDW (11.5-15.5) % Plt Count (150-450) k/uL MPV Neutrophils % % Lymphocytes % % Monocytes % % Eosinophils % % Basophils % % Neutrophils # (1.3-7.7) k/uL Lymphocytes # (1.0-4.8) k/uL Monocytes # (0-1.0) k/uL Eosinophils # (0-0.7) k/uL Basophils # (0-0.2) k/uL Anisocytosis PT (9.0-12.0) sec INR (<1.2) APTT (22.0-30.0) sec Sodium (137-145) mmol/L Potassium (3.5-5.1) mmol/L Chloride (98-107) mmol/L Carbon Dioxide (22-30) mmol/L Anion Gap mmol/L BUN (9-20) mg/dL Creatinine (0.66-1.25) mg/dL Est GFR (CKD-EPI)AfAm (>60 ml/min/1.73 sqM) Est GFR (CKD-EPI)NonAf (>60 ml/min/1.73 sqM) Glucose (74-99) mg/dL Plasma Lactic Acid Chinedu 1.8 (0.7-2.0) mmol/L Calcium (8.4-10.2) mg/dL Magnesium (1.6-2.3) mg/dL Total Bilirubin (0.2-1.3) mg/dL AST (17-59) U/L ALT (4-49) U/L Alkaline Phosphatase (38-126) U/L NT-Pro-B Natriuret Pep 2390 pg/mL Total Protein (6.3-8.2) g/dL Albumin (3.5-5.0) g/dL Disposition Clinical Impression: Elevated troponin I level, MATHEUS (acute kidney injury), Hypokalemia Disposition: ADMITTED IP TO THIS HOSP Condition: Stable Is patient prescribed a controlled substance at d/c from ED?: No Referrals: Puma Lovell MD [Primary Care Provider] - 1-2 days Decision to Admit Reason: Admit from EC Decision Date: 02/06/21 Decision Time: 19:05
[2021-02-06 18:01] LABS: INR 1.1 (<1.2); Potassium 2.4 mmol/L (3.5-5.1); Prothrombin Time 11.9 sec (9.0-12.0)
[2021-02-06] MEDS ORDERED: POTASSIUM CHLORIDE ER 20 MEQ TAB.ER PO STA (18:09)
[2021-02-06] MEDS: POTASSIUM CHLORIDE 10 MEQ in WATER FOR INJECTION 1 100ML.BAG IVPB SCH ×4 (18:43→21:58)
[2021-02-06] MEDS ORDERED: ACETAMINOPHEN TAB 325 MG TAB PO PRN (18:58)
[2021-02-06] MEDS ORDERED: NALOXONE 0.4 MG/ML 1 ML VIAL IV PRN (18:58)
[2021-02-06] MEDS ORDERED: CALCIUM GLUCONATE 1 GM in SODIUM CHLORIDE 0.9% 100 ML IVPB ONE (19:00)
[2021-02-06] MEDS ORDERED: 0.9% NACL WITH KCL 20 MEQ/L 1,000 ML IV SCH (20:00)
[2021-02-06] MEDS: DULoxetine HCL 60 MG CAPSULE.DR PO SCH ×2 (23:30→23:47)
[2021-02-06] MEDS: GABAPENTIN 300 MG CAP PO SCH ×3 (23:30→23:46)
[2021-02-06] MEDS: ATORVASTATIN 40 MG TAB PO SCH (23:47)
[2021-02-06] MEDS: METOPROLOL TARTRATE 50 MG TAB PO SCH (23:47)
[2021-02-06] MEDS: APIXABAN 5 MG TAB PO SCH (23:47)
[2021-02-07 06:11] LABS: Basophils # (A) 0.1 k/uL (0-0.2); Basophils % (A) 0 %; Eosinophils # (A) 0.1 k/uL (0-0.7); Eosinophils % (A) 1 %; HCT 46.7 % (39.0-53.0); HGB 14.4 gm/dL (13.0-17.5); Lymphocytes # (A) 2.6 k/uL (1.0-4.8); Lymphocytes % (A) 20 %; MCH 26.6 pg (25.0-35.0); MCHC 30.9 g/dL (31.0-37.0); MCV 86.1 fL (80.0-100.0); Mean Platelet Volume 6.8; Monocytes # (A) 0.9 k/uL (0-1.0); Monocytes % (A) 7 %; Neutrophils # (A) 8.9 k/uL (1.3-7.7); Neutrophils % (A) 70 %; Platelet Count 447 k/uL (150-450); RBC 5.42 m/uL (4.30-5.90); RDW 15.9 % (11.5-15.5); WBC 12.7 k/uL (3.8-10.6)
[2021-02-07 06:21] LABS: Glucose,Whole Blood 78 mg/dL (75-99)
[2021-02-07] MEDS: INSULIN ASPART (NovoLOG) 100 UNIT/ML VIAL SQ SCH ×4 (06:21→21:47)
[2021-02-07 06:57] LABS: Calcium 8.7 mg/dL (8.4-10.2); Potassium 3.3 mmol/L (3.5-5.1)
[2021-02-07] MEDS: DULoxetine HCL 60 MG CAPSULE.DR PO SCH ×2 (08:30→21:48)
[2021-02-07] MEDS: METOPROLOL TARTRATE 50 MG TAB PO SCH ×2 (08:31→21:47)
[2021-02-07] MEDS: APIXABAN 5 MG TAB PO SCH ×2 (08:31→23:52)
[2021-02-07] MEDS: GABAPENTIN 300 MG CAP PO SCH ×2 (08:31→21:47)
[2021-02-07] MEDS: oxyCODONE ER 20 MG TAB.ER.12H PO PRN (08:38)
[2021-02-07] MEDS ORDERED: POTASSIUM CHLORIDE ER 20 MEQ TAB.ER PO STA (09:19)
--- NOTE | 2021-02-07 09:21 | P.NPCON ---
History of Present Illness - Reason for Consult acute renal failure - History of Present Illness Reason for consultation: Acute kidney injury History of present illness: Patient is a 65-year-old male seen in renal consultation for acute kidney injury. Patient was seen and examined in the emergency room. Patient baseline creatinine is near 1 from earlier this month. It was elevated at 3.59 on admission yesterday and is down to 3.07 today. She presented to the hospital with nausea and also had vomiting prior to admission. Patient was recently admitted earlier this month with CHF exacerbation and was discharged home with Lasix 40 mg orally twice daily. Patient states he's been taking the Lasix. No edema. Has been voiding. No hematuria or dysuria. No fever or chills. Blood pressure stable. Denies use of nonsteroidals. Patient does have history of diabetes. He was also taking metformin for diabetes which is currently held. No chest pain or shortness of breath. Vital signs are stable. General: The patient appeared well nourished and normally developed. HEENT: Head exam is unremarkable. LUNGS: Breath sounds decreased. HEART: Rate and Rhythm are regular. ABDOMEN: Soft, no distention. EXTREMITITES: No edema. Past Medical History Past Medical History: Atrial Fibrillation, Coronary Artery Disease (CAD), Chest Pain / Angina, Diabetes Mellitus, GERD/Reflux, Hyperlipidemia, Hypertension, Myocardial Infarction ([place]) Additional Past Medical History / Comment(s): Pt had CABG 07/2019 and had post op Afib/UTI with pseudomonas aeruginosa, ischemic cardiomyopathy, IDDM type II, past R scrotal abscess with sepsis, chronic lower back pain and bilateral leg pain, Last Myocardial Infarction Date:: 03/20/15 History of Any Multi-Drug Resistant Organisms: None Reported Past Surgical History: Back Surgery, Coronary Bypass/CABG, Heart Catheterizat ion, Heart Catheterization With Stent, Orthopedic Surgery Additional Past Surgical History / Comment(s): 08/23/2019 CABG 3 vessels, PCI with total of 5 stents, L ankle ligament repair, R leg ORIF, low back surgery, colonoscopy. Past Anesthesia/Blood Transfusion Reactions: No Reported Reaction Additional Past Anesthesia/Blood Transfusion Reaction / Comment(s): Pt has received blood in past without reaction. Date of Last Stent Placement:: 02/2015 Past Psychological History: No Psychological Hx Reported Smoking Status: Former smoker Past Alcohol Use History: None Reported Past Drug Use History: Marijuana - Past Family History Sister(s) Family Medical History: Coronary Artery Disease (CAD), Hypertension Father Family Medical History: Coronary Artery Disease (CAD), Diabetes Mellitus, Deep Vein Thrombosis (DVT), Hypertension Additional Family Medical History / Comment(s): Father at age 58yrs. He of blood clot from leg injury that went to his heart. Medications and Allergies Home Medications Medication Instructions Recorded Confirmed Type DULoxetine HCL [Cymbalta] 60 mg PO BID 11/16/19 02/06/21 History Semaglutide [Ozempic] 0.5 mg SQ Q7D 11/16/19 02/06/21 History glipiZIDE [Glucotrol] 5 mg PO AC-BID 11/16/19 02/06/21 History oxyCODONE HCL [oxyCODONE HCL (IR)] 15 mg PO Q8H 03/01/20 02/06/21 History Aspirin 81 mg PO DAILY #30 chew 04/10/20 02/06/21 Rx Apixaban [Eliquis] 5 mg PO BID #60 tab 10/02/20 02/06/21 Rx Metoprolol Tartrate [Lopressor] 50 mg PO BID #60 tab 10/02/20 02/06/21 Rx Pantoprazole [Protonix] 40 mg PO AC-BRKFST #30 tablet. 10/02/20 02/06/21 Rx Amiodarone [Cordarone] 200 mg PO DAILY 01/31/21 02/06/21 History Atorvastatin [Lipitor] 40 mg PO HS 01/31/21 02/06/21 History Insulin Aspart [NovoLOG Flexpen] See Protocol SQ AC-TID 01/31/21 02/06/21 History Insulin Glargine,Hum.rec.anlog 25 unit SQ DAILY 01/31/21 02/06/21 History [Lantus Solostar Pen] metFORMIN HCL [Glucophage] 1,000 mg PO BID 01/31/21 02/06/21 History oxyCODONE ER [OxyCONTIN] 80 mg PO Q12H 01/31/21 02/06/21 History rOPINIRole HCL [Requip] 1 mg PO BID 01/31/21 02/06/21 History Furosemide [Lasix] 40 mg PO BID 30 Days #60 tablet 02/01/21 02/06/21 Rx Potassium Chloride ER [K-Dur 20] 20 meq PO DAILY #30 tab 02/01/21 02/06/21 Rx lisinopriL 20 mg PO DAILY #30 tablet 02/01/21 02/06/21 Rx Gabapentin [Neurontin] 300 mg PO BID 02/06/21 02/06/21 History Allergies Allergy/AdvReac Type Severity Reaction Status Date / Time No Known Allergies Allergy Verified 02/06/21 17:07 Physical Exam Vitals: Vital Signs Temp Pulse Pulse Resp BP BP Pulse Ox 02/07/21 08:40 58 L 18 98/57 96 02/07/21 04:00 97.5 F L 59 L 18 134/81 96 02/07/21 02:00 18 02/07/21 00:30 18 02/06/21 22:02 64 18 99/70 95 02/06/21 18:45 63 18 124/92 100 02/06/21 17:00 97.4 F L 60 18 88/54 97 Intake and Output 02/06/21 02/07/21 02/07/21 22:59 06:59 14:59 Intake Total 10 Output Total 1000 Balance -990 Intake: IV 10 Invasive Line 2 10 Output: Urine 1000 Other: Voiding Method Urinal Weight 76.657 kg Results - Lab Results Most recent lab results Calcium 8.7 mg/dL (8.4-10.2) 02/07/21 05:50 Magnesium 2.0 mg/dL (1.6-2.3) 02/07/21 05:50 02/07/21 05:50 02/07/21 05:50 Assessment and Plan Plan: Assessment: 1. Acute kidney injury mostly prerenal secondary to hypovolemia. Creatinine was 3.59 on admission and is 3.07 today. Baseline creatinine near 1. 2. Hypokalemia secondary to diuresis. Replace. Better. 3. Chronic systolic CHF with ejection fraction of 45-50%. 4. Diabetes mellitus. 5. A. fib maintained on amiodarone, Lopressor and anticoagulation. Plan: Maintain normal saline. Replace potassium. Check urinalysis. Check renal ultrasound. Continue to hold diuretics. Repeat labs in the morning. Thank you for the consultation. I will continue to follow the patient with you during his hospital stay.
--- NOTE | 2021-02-07 10:05 | US ---
EXAMINATION TYPE: US kidneys/renal and bladder DATE OF EXAM: 02/07/2021 COMPARISON: CT 2020 & US 2019 CLINICAL HISTORY: danika. EXAM MEASUREMENTS: Right Kidney: 9.8 x 4.5 x 4.7 cm Left Kidney: 9.6 x 4.1 x 4.4 cm Right Kidney: No hydronephrosis or masses seen Left Kidney: limited visualization due to patient position, no hydronephrosis or masses seen Bladder: wnl Bilateral Jets seen: right jet not seen, left jet seen IMPRESSION: No hydronephrosis or nephrolithiasis as visualized.
[2021-02-07] MEDS: PANTOPRAZOLE 40 MG TABLET PO SCH (12:00)
[2021-02-07] MEDS: AMIODARONE 200 MG TAB PO SCH (12:00)
[2021-02-07] MEDS: POTASSIUM CHLORIDE ER 20 MEQ TAB.ER PO SCH ×3 (12:00→18:03)
[2021-02-07] MEDS: ASPIRIN 81 MG PO SCH (12:00)
[2021-02-07] MEDS: SODIUM CHLORIDE 0.9% 1,000 ML IV SCH (12:01)
[2021-02-07 12:08] LABS: Glucose,Whole Blood 104 mg/dL (75-99)
[2021-02-07] MEDS ORDERED: Potassium Replacement Protocol 1 EACH MISC MISCELLANE PRN (16:29)
[2021-02-07 16:37] LABS: Glucose,Whole Blood 247 mg/dL (75-99)
[2021-02-07 17:53] LABS: Appearance,Urine Clear (Clear); Bilirubin,Urine Negative (Negative); Blood,Urine Negative (Negative); Color,Urine Light Yellow; Glucose,Urine (UA) 1+ (Negative); Ketones,Urine Negative (Negative); Leukocyte Esterase,Urine Negative (Negative); Nitrite,Urine Negative (Negative); Protein,Urine Trace (Negative); Urobilinogen,Urine <2.0 mg/dL (<2.0)
[2021-02-07 21:11] LABS: Glucose,Whole Blood 310 mg/dL (75-99)
--- NOTE | 2021-02-07 21:33 | P.HPIM ---
History of Present Illness H&P Date: 02/07/21 Chief Complaint: weakness, vertigo Ashok Austin is a 65 yo M with PMH of T2DM, CKD, CAD, A fib, diastolic CHF who presented to the ED with increasing weakness, malaise and vertigo. he was just recently admitted last week with shortness of breath and found to be in CHF exacerbation, he was diuresed at that time and discharged on lasix and lisinopril. He states he initially did well after his discharge but then began to feel progressively worse. He also notes nausea, denies vomiting. No fever, chills, chest pain, shortness of breath. on presentation pt hypotensive, WBC 14k, Cr 3.59 baseline 1, potassium 2.4, trop 0.069, BNP 2400. Review of Systems All systems: negative Constitutional: Reports malaise, Reports weakness, Denies chills, Denies fever Eyes: denies blurred vision, denies pain Ears, nose, mouth and throat: Denies headache, Denies sore throat Cardiovascular: Denies chest pain, Denies shortness of breath Respiratory: Denies cough Gastrointestinal: Reports abdominal pain, Reports nausea, Reports vomiting, Denies diarrhea Musculoskeletal: Denies myalgias Integumentary: Denies pruritus, Denies rash Neurological: Denies numbness, Denies weakness Psychiatric: Denies anxiety, Denies depression Endocrine: Denies fatigue, Denies weight change Past Medical History Past Medical History: Atrial Fibrillation, Coronary Artery Disease (CAD), Chest Pain / Angina, Diabetes Mellitus, GERD/Reflux, Hyperlipidemia, Hypertension, Myocardial Infarction (SD) Additional Past Medical History / Comment(s): Pt had CABG 07/2019 and had post op Afib/UTI with pseudomonas aeruginosa, ischemic cardiomyopathy, IDDM type II, past R scrotal abscess with sepsis, chronic lower back pain and bilateral leg pain, Last Myocardial Infarction Date:: 03/20/15 History of Any Multi-Drug Resistant Organisms: None Reported Past Surgical History: Back Surgery, Coronary Bypass/CABG, Heart Catheterization, Heart Catheterization With Stent, Orthopedic Surgery Additional Past Surgical History / Comment(s): 08/23/2019 CABG 3 vessels, PCI with total of 5 stents, L ankle ligament repair, R leg ORIF, low back surgery, colonoscopy. Past Anesthesia/Blood Transfusion Reactions: No Reported Reaction Additional Past Anesthesia/Blood Transfusion Reaction / Comment(s): Pt has received blood in past without reaction. Date of Last Stent Placement:: 02/2015 Past Psychological History: No Psychological Hx Reported Additional Psychological History / Comment(s): Pt resides with his sister. He has a cane to ambulate and a glucometer. He has home care thru [facility]. He cannot currently drive d/t recent CABG, his evangelina takes him to app. Smoking Status: Former smoker Past Alcohol Use History: None Reported Additional Past Alcohol Use History / Comment(s): Pt started smoking in 1968 and quit in 2014. He was a 2 ppd smoker. Pt states he was a heavy drinker but quit in 2001. Past Drug Use History: Marijuana Additional Drug Use History / Comment(s): Occasional marijuana.-INSTRUCTED TO REFRAIN FROM USE FOR AT LEAST 24 HOURS PRIOR TO PROCEDURE - Past Family History Sister(s) Family Medical History: Coronary Artery Disease (CAD), Hypertension Father Family Medical History: Coronary Artery Disease (CAD), Diabetes Mellitus, Deep Vein Thrombosis (DVT), Hypertension Additional Family Medical History / Comment(s): Father at age 58yrs. He di ed of blood clot from leg injury that went to his heart. Medications and Allergies Home Medications Medication Instructions Recorded Confirmed Type DULoxetine HCL [Cymbalta] 60 mg PO BID 11/16/19 02/06/21 History Semaglutide [Ozempic] 0.5 mg SQ Q7D 11/16/19 02/06/21 History glipiZIDE [Glucotrol] 5 mg PO AC-BID 11/16/19 02/06/21 History oxyCODONE HCL [oxyCODONE HCL (IR)] 15 mg PO Q8H 03/01/20 02/06/21 History Aspirin 81 mg PO DAILY #30 chew 04/10/20 02/06/21 Rx Apixaban [Eliquis] 5 mg PO BID #60 tab 10/02/20 02/06/21 Rx Metoprolol Tartrate [Lopressor] 50 mg PO BID #60 tab 10/02/20 02/06/21 Rx Pantoprazole [Protonix] 40 mg PO AC-BRKFST #30 tablet. 10/02/20 02/06/21 Rx Amiodarone [Cordarone] 200 mg PO DAILY 01/31/21 02/06/21 History Atorvastatin [Lipitor] 40 mg PO HS 01/31/21 02/06/21 History Insulin Aspart [NovoLOG Flexpen] See Protocol SQ AC-TID 01/31/21 02/06/21 History Insulin Glargine,Hum.rec.anlog 25 unit SQ DAILY 01/31/21 02/06/21 History [Lantus Solostar Pen] metFORMIN HCL [Glucophage] 1,000 mg PO BID 01/31/21 02/06/21 History oxyCODONE ER [OxyCONTIN] 80 mg PO Q12H 01/31/21 02/06/21 History rOPINIRole HCL [Requip] 1 mg PO BID 01/31/21 02/06/21 History Furosemide [Lasix] 40 mg PO BID 30 Days #60 tablet 02/01/21 02/06/21 Rx Potassium Chloride ER [K-Dur 20] 20 meq PO DAILY #30 tab 02/01/21 02/06/21 Rx lisinopriL 20 mg PO DAILY #30 tablet 02/01/21 02/06/21 Rx Gabapentin [Neurontin] 300 mg PO BID 02/06/21 02/06/21 History Allergies Allergy/AdvReac Type Severity Reaction Status Date / Time No Known Allergies Allergy Verified 02/06/21 17:07 Physical Exam Vitals: Vital Signs Temp Pulse Pulse Resp BP BP Pulse Ox 02/07/21 18:05 57 L 18 146/72 98 02/07/21 16:47 56 L 16 149/68 99 02/07/21 11:58 55 L 16 153/76 98 02/07/21 08:40 58 L 18 98/57 96 02/07/21 04:00 97.5 F L 59 L 18 134/81 96 02/07/21 02:00 18 02/07/21 00:30 18 02/06/21 22:02 64 18 99/70 95 Intake and Output 02/07/21 02/07/21 02/07/21 06:59 14:59 22:59 Intake Total 10 118 417 Output Total 1000 575 650 Balance -990 -457 -233 Intake: IV 10 Invasive Line 2 10 Oral 118 417 Output: Urine 1000 575 650 Other: Voiding Method Urinal Urinal Weight 76.657 kg General: well nourished, well developed, NAD. Vitals reviewed Eyes: PERRL, EOMI, conjunctiva normal HENT: normocephalic, mucus membranes moist Neck: supple, no JVD Lungs: normal respiratory effort, no wheezes or rales CV: Regular rate and rhythm, no murmur. Peripheral pulses 2+ Abdomen: soft, nondistended, no organomegaly Lymph: no cervical or axillary LAD Skin: warm and dry. Neuro: A&Ox3, normal mood and affect Results CBC & Chem 7: 02/07/21 05:50 02/07/21 15:33 Labs: Abnormal Lab Results - Last 24 Hours (Table) 02/06/21 02/07/21 02/07/21 Range/Units 17:12 01:19 05:50 WBC 12.7 H (3.8-10.6) k/uL MCHC 30.9 L (31.0-37.0) g/dL RDW 15.9 H (11.5-15.5) % Neutrophils # 8.9 H (1.3-7.7) k/uL Sodium (137-145) mmol/L Potassium 3.4 L (3.5-5.1) mmol/L BUN (9-20) mg/dL Creatinine (0.66-1.25) mg/dL POC Glucose (mg/dL) (75-99) mg/dL Hemoglobin A1c (4.0-6.0) % Urine Protein Trace H (Negative) Urine Glucose (UA) 1+ H (Negative) 02/07/21 02/07/21 02/07/21 Range/Units 05:50 05:50 12:07 WBC (3.8-10.6) k/uL MCHC (31.0-37.0) g/dL RDW (11.5-15.5) % Neutrophils # (1.3-7.7) k/uL Sodium 136 L (137-145) mmol/L Potassium 3.3 L (3.5-5.1) mmol/L BUN 68 H (9-20) mg/dL Creatinine 3.07 H (0.66-1.25) mg/dL POC Glucose (mg/dL) 104 H (75-99) mg/dL Hemoglobin A1c 8.0 H (4.0-6.0) % Urine Protein (Negative) Urine Glucose (UA) (Negative) 02/07/21 02/07/21 02/07/21 Range/Units 15:33 16:35 20:49 WBC (3.8-10.6) k/uL MCHC (31.0-37.0) g/dL RDW (11.5-15.5) % Neutrophils # (1.3-7.7) k/uL Sodium (137-145) mmol/L Potassium 3.3 L (3.5-5.1) mmol/L BUN (9-20) mg/dL Creatinine (0.66-1.25) mg/dL POC Glucose (mg/dL) 247 H 310 H (75-99) mg/dL Hemoglobin A1c (4.0-6.0) % Urine Protein (Negative) Urine Glucose (UA) (Negative) Thrombosis Risk Factor Assmnt - Choose All That Apply Any of the Below Risk Factors Present?: Yes Each Factor Represents 1 point: Heart failure (<1month) Other Risk Factors: Yes Each Risk Factor Represents 2 Points: Age 61-74 years Thrombosis Risk Factor Assessment Total Risk Factor Score: 3 Thrombosis Risk Factor Assessment Level: Moderate Risk Assessment and Plan Plan: 1. Acute kidney injury secondary to diuretic use. Admit, start IV saline with KCl, replace potassium per protocol. Nephrology consult. Hold lasix, hold lisinopril 2. Chronic diastolic CHF. Continue metoprolo 3. CAD. Continue ASA, lipitor 4. A fib. Continue amiodarone, eliquis 5. T2DM. Hold metformin. Accucheck, sliding scale 6. Chronic back pain. Continue home oxycontin
[2021-02-07] MEDS: ATORVASTATIN 40 MG TAB PO SCH (21:47)
[2021-02-08 06:15] LABS: Glucose,Whole Blood 259 mg/dL (75-99)
[2021-02-08] MEDS: INSULIN ASPART (NovoLOG) 100 UNIT/ML VIAL SQ SCH ×4 (06:15→20:57)
[2021-02-08] MEDS: PANTOPRAZOLE 40 MG TABLET PO SCH (06:15)
[2021-02-08] MEDS: METOPROLOL TARTRATE 50 MG TAB PO SCH ×2 (08:27→20:56)
[2021-02-08] MEDS: POTASSIUM CHLORIDE ER 20 MEQ TAB.ER PO SCH (08:27)
[2021-02-08] MEDS: APIXABAN 5 MG TAB PO SCH ×2 (08:27→20:56)
[2021-02-08] MEDS: AMIODARONE 200 MG TAB PO SCH (08:27)
[2021-02-08] MEDS: DULoxetine HCL 60 MG CAPSULE.DR PO SCH ×2 (08:27→20:56)
[2021-02-08] MEDS: ASPIRIN 81 MG PO SCH (08:27)
[2021-02-08] MEDS: GABAPENTIN 300 MG CAP PO SCH ×2 (08:27→20:56)
[2021-02-08] MEDS: SODIUM CHLORIDE 0.9% 1,000 ML IV SCH (08:28)
[2021-02-08] MEDS: oxyCODONE ER 20 MG TAB.ER.12H PO PRN ×2 (08:29→20:55)
--- NOTE | 2021-02-08 09:12 | P.PN ---
Subjective Patient is seen in follow-up for acute kidney injury. Renal function improving with IV hydration. No edema. Has been waiting. No vomiting or diarrhea. Oral intake fair. Blood pressure stable. Vital signs are stable. General: The patient appeared well nourished and normally developed. HEENT: Head exam is unremarkable. LUNGS: Breath sounds decreased. HEART: Rate and Rhythm are regular. ABDOMEN: Soft, no distention. EXTREMITITES: No edema. Objective - Vital Signs Vital signs: Vital Signs Temp 97.5 F L 02/08/21 04:00 Pulse 68 02/08/21 04:00 Resp 16 02/08/21 04:00 BP 138/73 02/08/21 04:00 Pulse Ox 94 L 02/08/21 04:00 Intake & Output 02/07/21 02/08/21 02/08/21 18:59 06:59 18:59 Intake Total 535 964 410 Output Total 1225 1000 Balance -690 -36 410 Weight 76.657 kg 74.1 kg Intake: Oral 535 964 410 Output: Urine 1225 1000 Other: Voiding Method Urinal Urinal - Labs CBC & Chem 7: 02/07/21 05:50 02/07/21 15:33 Labs: Abnormal Lab Results - Last 24 Hours (Table) 02/06/21 02/07/21 02/07/21 Range/Units 17:12 05:50 12:07 Potassium (3.5-5.1) mmol/L POC Glucose (mg/dL) 104 H (75-99) mg/dL Hemoglobin A1c 8.0 H (4.0-6.0) % Urine Protein Trace H (Negative) Urine Glucose (UA) 1+ H (Negative) 02/07/21 02/07/21 02/07/21 Range/Units 15:33 16:35 20:49 Potassium 3.3 L (3.5-5.1) mmol/L POC Glucose (mg/dL) 247 H 310 H (75-99) mg/dL Hemoglobin A1c (4.0-6.0) % Urine Protein (Negative) Urine Glucose (UA) (Negative) 02/08/21 Range/Units 06:08 Potassium (3.5-5.1) mmol/L POC Glucose (mg/dL) 259 H (75-99) mg/dL Hemoglobin A1c (4.0-6.0) % Urine Protein (Negative) Urine Glucose (UA) (Negative) Assessment and Plan Plan: Assessment: 1. Acute kidney injury mostly prerenal secondary to hypovolemia. Creatinine was 3.59 on admission and down to 3.07 yesterday. Baseline creatinine near 1. UA fairly benign. No hydronephrosis noted on kidney ultrasound. 2. Hypokalemia secondary to diuresis. Replaced. Better. 3. Chronic systolic CHF with ejection fraction of 45-50%. 4. Diabetes mellitus. 5. A. fib maintained on amiodarone, Lopressor and anticoagulation. Plan: Maintain normal saline. Continue to hold diuretics. Follow-up morning labs. Encouraged oral intake.
[2021-02-08 09:45] LABS: Calcium 8.6 mg/dL (8.4-10.2); Magnesium 1.8 mg/dL (1.6-2.3); Potassium 4.4 mmol/L (3.5-5.1)
--- NOTE | 2021-02-08 10:04 | P.PN ---
Subjective Progress Note Date: 02/08/21 Ashok Austin is a 65 yo M with PMH of T2DM, CKD, CAD, A fib, diastolic CHF who presented to the ED with increasing weakness, malaise and vertigo. he was just recently admitted last week with shortness of breath and found to be in CHF exacerbation, he was diuresed at that time and discharged on lasix and lisinopril. He states he initially did well after his discharge but then began to feel progressively worse. He also notes nausea, denies vomiting. No fever, chills, chest pain, shortness of breath. on presentation pt hypotensive, WBC 14k, Cr 3.59 baseline 1, potassium 2.4, trop 0.069, BNP 2400. 02/08/2021 renal ultrasound reported no hydronephrosis or nephrolithiasis. Maintained on IV fluid hydration with significant improvement in renal function with creatinine down to 1.68, potassium 4.4, magnesium 1.8. Feels better. Denies nausea, vomiting, diarrhea. Denies bloating. Denies abdominal pain. Consumed 75% of dinner last night, 0% of breakfast this morning. VSS, T-max 99.1. Objective - Vital Signs Vital signs: Vital Signs Temp 97.5 F L 02/08/21 04:00 Pulse 68 02/08/21 04:00 Resp 16 02/08/21 04:00 BP 138/73 02/08/21 04:00 Pulse Ox 94 L 02/08/21 04:00 Intake & Output 02/07/21 02/08/21 02/08/21 18:59 06:59 18:59 Intake Total 535 964 Output Total 1225 1000 Balance -690 -36 Weight 76.657 kg 74.1 kg Intake: Oral 535 964 Output: Urine 1225 1000 Other: Voiding Method Urinal Urinal - Exam General: Lying in bed NAD. Vitals reviewed Eyes: PERRL, EOMI, conjunctiva normal HENT: normocephalic, mucus membranes moist Neck: supple, no JVD Lungs: normal respiratory effort, fine basilar rales CV: Regular rate and rhythm, no murmur. Peripheral pulses 2+ Abdomen: soft, nondistended, no organomegaly, +BS Skin: warm and dry. No edema. Neuro: A&Ox3, normal mood and affect - Labs CBC & Chem 7: 02/07/21 05:50 02/08/21 08:46 Labs: Abnormal Lab Results - Last 24 Hours (Table) 02/06/21 02/07/21 02/07/21 Range/Units 17:12 05:50 12:07 Potassium (3.5-5.1) mmol/L POC Glucose (mg/dL) 104 H (75-99) mg/dL Hemoglobin A1c 8.0 H (4.0-6.0) % Urine Protein Trace H (Negative) Urine Glucose (UA) 1+ H (Negative) 02/07/21 02/07/21 02/07/21 Range/Units 15:33 16:35 20:49 Potassium 3.3 L (3.5-5.1) mmol/L POC Glucose (mg/dL) 247 H 310 H (75-99) mg/dL Hemoglobin A1c (4.0-6.0) % Urine Protein (Negative) Urine Glucose (UA) (Negative) 02/08/21 Range/Units 06:08 Potassium (3.5-5.1) mmol/L POC Glucose (mg/dL) 259 H (75-99) mg/dL Hemoglobin A1c (4.0-6.0) % Urine Protein (Negative) Urine Glucose (UA) (Negative) Assessment and Plan Assessment: 1. Acute kidney injury secondary to diuretic use. 2. Chronic systolic CHF, EF 45-50%. 3. CAD, history of NC, CABG, ischemic cardiomyopathy. 4. Chronic A fib. Anticoagulated on eliquis 5. T2DM. Hyperglycemia, Hemoglobin A1c 8 6. Chronic back pain. 7. Hypokalemia 8. Gastroesophageal reflux disease Plan: Continue on current medication regime ,monitoring and symptomatic treatment. Continue with gentle IV fluid hydration, holding diuretics. In a.m., pending labs .possibly DC IV fluids and resume low-dose Lasix -defer to nephrology. Chronic- Pain management. Close monitoring of renal function, electrolytes with repeat labs ordered for a.m. The impression and plan of care has been dictated as directed. : I performed a history and examination of this patient, discussed the same with the dictator. I agree with the dictator's note ,documented as a scribe. Any additional findings or plans will be noted.
[2021-02-08 11:56] LABS: Glucose,Whole Blood 270 mg/dL (75-99)
[2021-02-08] MEDS ORDERED: LORazepam 0.5 MG TAB PO PRN (14:00)
[2021-02-08 16:32] LABS: Glucose,Whole Blood 314 mg/dL (75-99)
[2021-02-08 20:41] LABS: Glucose,Whole Blood 157 mg/dL (75-99)
[2021-02-08] MEDS: ATORVASTATIN 40 MG TAB PO SCH (20:56)
[2021-02-09 06:06] LABS: Glucose,Whole Blood 189 mg/dL (75-99)
[2021-02-09] MEDS: INSULIN ASPART (NovoLOG) 100 UNIT/ML VIAL SQ SCH ×4 (06:30→20:10)
[2021-02-09] MEDS: PANTOPRAZOLE 40 MG TABLET PO SCH (06:30)
--- NOTE | 2021-02-09 08:38 | P.PN ---
Subjective Patient is seen in follow-up for acute kidney injury. Renal function improving with IV hydration. No edema. Good urine output. No vomiting or diarrhea. Oral intake fair. Blood pressure stable. Vital signs are stable. General: The patient appeared well nourished and normally developed. HEENT: Head exam is unremarkable. LUNGS: Breath sounds decreased. HEART: Rate and Rhythm are regular. ABDOMEN: Soft, no distention. EXTREMITITES: No edema. Objective - Vital Signs Vital signs: Vital Signs Temp 97.5 F L 02/09/21 04:00 Pulse 68 02/09/21 04:00 Resp 16 02/09/21 04:00 BP 158/89 02/09/21 04:00 Pulse Ox 95 02/09/21 04:00 Intake & Output 02/08/21 02/09/21 02/09/21 18:59 06:59 18:59 Intake Total 770 880 Output Total 500 1550 Balance 270 -670 Weight 75.4 kg Intake: Intake, IV Titration 400 Amount Sodium Chloride 0.9% 1, 400 000 ml @ 50 mls/hr IV . Q20H [facility] Rx#:[id number] Oral 770 480 Output: Urine 500 1550 Other: Voiding Method Urinal - Labs CBC & Chem 7: 02/07/21 05:50 02/08/21 08:46 Labs: Abnormal Lab Results - Last 24 Hours (Table) 02/08/21 02/08/21 02/08/21 Range/Units 08:46 11:54 16:30 Sodium 134 L (137-145) mmol/L BUN 40 H (9-20) mg/dL Creatinine 1.68 H (0.66-1.25) mg/dL Glucose 188 H (74-99) mg/dL POC Glucose (mg/dL) 270 H 314 H (75-99) mg/dL 02/08/21 02/09/21 Range/Units 20:39 06:04 Sodium (137-145) mmol/L BUN (9-20) mg/dL Creatinine (0.66-1.25) mg/dL Glucose (74-99) mg/dL POC Glucose (mg/dL) 157 H 189 H (75-99) mg/dL Assessment and Plan Plan: Assessment: 1. Acute kidney injury mostly prerenal secondary to hypovolemia. Creatinine was 3.59 on admission and down to 1.68 yesterday. Baseline creatinine near 1. UA fairly benign. No hydronephrosis noted on kidney ultrasound. 2. Hypokalemia secondary to diuresis. Replaced. Better. 3. Chronic systolic CHF with ejection fraction of 45-50%. 4. Diabetes mellitus. 5. A. fib maintained on amiodarone, Lopressor and anticoagulation. Plan: Hep-Lock IV fluids. Continue to hold diuretics. Follow-up morning labs. Encouraged oral intake.
[2021-02-09] MEDS: AMIODARONE 200 MG TAB PO SCH (08:42)
[2021-02-09] MEDS: oxyCODONE ER 20 MG TAB.ER.12H PO PRN ×2 (08:42→20:09)
[2021-02-09] MEDS: APIXABAN 5 MG TAB PO SCH ×2 (08:42→20:08)
[2021-02-09] MEDS: DULoxetine HCL 60 MG CAPSULE.DR PO SCH ×2 (08:42→20:09)
[2021-02-09] MEDS: GABAPENTIN 300 MG CAP PO SCH ×2 (08:42→20:09)
[2021-02-09] MEDS: POTASSIUM CHLORIDE ER 20 MEQ TAB.ER PO SCH (08:42)
[2021-02-09] MEDS: METOPROLOL TARTRATE 50 MG TAB PO SCH ×2 (08:42→20:09)
[2021-02-09] MEDS: ASPIRIN 81 MG PO SCH (08:42)
[2021-02-09] MEDS: SODIUM CHLORIDE 0.9% 1,000 ML IV SCH (08:46)
[2021-02-09 12:24] LABS: African American GFR (CKD) >90 (>60 ml/min/1.73 sqM); Anion Gap 6 mmol/L; Blood Urea Nitrogen 21 mg/dL (9-20); Calcium 8.7 mg/dL (8.4-10.2); Carbon Dioxide 27 mmol/L (22-30); Chloride 101 mmol/L (98-107); Glucose 326 mg/dL (74-99); Magnesium 1.6 mg/dL (1.6-2.3); Non-African American GFR(CKD) >90 (>60 ml/min/1.73 sqM); Potassium 3.9 mmol/L (3.5-5.1); Sodium 134 mmol/L (137-145)
[2021-02-09 12:53] LABS: Anisocytosis Slight; Basophils % (A) 0 %; Eosinophils # (A) 0.1 k/uL (0-0.7); Eosinophils % (A) 1 %; HCT 39.3 % (39.0-53.0); HGB 12.7 gm/dL (13.0-17.5); Lymphocytes # (A) 0.9 k/uL (1.0-4.8); Lymphocytes % (A) 8 %; MCH 27.5 pg (25.0-35.0); MCHC 32.4 g/dL (31.0-37.0); MCV 85.1 fL (80.0-100.0); Mean Platelet Volume 6.8; Monocytes # (A) 0.7 k/uL (0-1.0); Monocytes % (A) 6 %; Neutrophils # (A) 9.7 k/uL (1.3-7.7); Neutrophils % (A) 85 %; Platelet Count 385 k/uL (150-450); RBC 4.62 m/uL (4.30-5.90); WBC 11.5 k/uL (3.8-10.6)
[2021-02-09 17:23] LABS: Glucose,Whole Blood 247 mg/dL (75-99)
[2021-02-09 19:57] LABS: Glucose,Whole Blood 367 mg/dL (75-99)
[2021-02-09] MEDS: ATORVASTATIN 40 MG TAB PO SCH (20:08)
[2021-02-10 06:09] LABS: Glucose,Whole Blood 296 mg/dL (75-99)
[2021-02-10] MEDS: PANTOPRAZOLE 40 MG TABLET PO SCH (07:02)
[2021-02-10] MEDS: INSULIN ASPART (NovoLOG) 100 UNIT/ML VIAL SQ SCH ×4 (07:02→21:26)
[2021-02-10] MEDS: METOPROLOL TARTRATE 50 MG TAB PO SCH ×2 (08:01→20:11)
[2021-02-10] MEDS: DULoxetine HCL 60 MG CAPSULE.DR PO SCH ×2 (08:01→20:11)
[2021-02-10] MEDS: oxyCODONE ER 20 MG TAB.ER.12H PO PRN ×2 (08:01→20:11)
[2021-02-10] MEDS: APIXABAN 5 MG TAB PO SCH ×2 (08:01→20:12)
[2021-02-10] MEDS: AMIODARONE 200 MG TAB PO SCH (08:01)
[2021-02-10] MEDS: GABAPENTIN 300 MG CAP PO SCH ×2 (08:02→20:11)
[2021-02-10] MEDS: ASPIRIN 81 MG PO SCH (08:02)
--- NOTE | 2021-02-10 09:04 | P.PN ---
Subjective Patient is seen in follow-up for acute kidney injury. Renal function improved with IV hydration. No edema. Good urine output. No vomiting or diarrhea. Oral intake fair. Vital signs are stable. General: The patient appeared well nourished and normally developed. HEENT: Head exam is unremarkable. LUNGS: Breath sounds decreased. HEART: Rate and Rhythm are regular. ABDOMEN: Soft, no distention. EXTREMITITES: No edema. Objective - Vital Signs Vital signs: Vital Signs Temp 98.5 F 02/10/21 07:49 Pulse 72 02/10/21 07:49 Resp 16 02/10/21 07:49 BP 181/92 02/10/21 07:49 Pulse Ox 93 L 02/10/21 07:49 Intake & Output 02/09/21 02/10/21 02/10/21 18:59 06:59 18:59 Output Total 500 502 Balance -500 -502 Weight 82 kg Output: Urine 500 502 Other: Voiding Method Urinal Toilet Urinal - Labs CBC & Chem 7: 02/09/21 12:30 02/09/21 11:58 Labs: Abnormal Lab Results - Last 24 Hours (Table) 02/09/21 02/09/21 02/09/21 Range/Units 11:58 12:30 17:12 WBC 11.5 H (3.8-10.6) k/uL Hgb 12.7 L (13.0-17.5) gm/dL RDW 16.0 H (11.5-15.5) % Neutrophils # 9.7 H (1.3-7.7) k/uL Lymphocytes # 0.9 L (1.0-4.8) k/uL Sodium 134 L (137-145) mmol/L BUN 21 H (9-20) mg/dL Glucose 326 H (74-99) mg/dL POC Glucose (mg/dL) 247 H (75-99) mg/dL 02/09/21 02/10/21 Range/Units 19:55 06:05 WBC (3.8-10.6) k/uL Hgb (13.0-17.5) gm/dL RDW (11.5-15.5) % Neutrophils # (1.3-7.7) k/uL Lymphocytes # (1.0-4.8) k/uL Sodium (137-145) mmol/L BUN (9-20) mg/dL Glucose (74-99) mg/dL POC Glucose (mg/dL) 367 H 296 H (75-99) mg/dL Assessment and Plan Plan: Assessment: 1. Acute kidney injury mostly prerenal secondary to hypovolemia. Creatinine was 3.59 on admission and down to 0.9 yesterday. Baseline creatinine near 1. UA fairly benign. No hydronephrosis noted on kidney ultrasound. 2. Hypokalemia secondary to diuresis. Replaced. Better. 3. Chronic systolic CHF with ejection fraction of 45-50%. 4. Diabetes mellitus. 5. A. fib maintained on amiodarone, Lopressor and anticoagulation. 6. Benign hypertension. Plan: Remains off IV fluids. Continue to hold diuretics. Encouraged oral intake. Resume lisinopril.
[2021-02-10] MEDS: lisinopriL 10 MG TAB PO SCH (09:20)
[2021-02-10 11:22] LABS: Glucose,Whole Blood 225 mg/dL (75-99)
[2021-02-10 13:15] LABS: African American GFR (CKD) >90 (>60 ml/min/1.73 sqM); Anion Gap 6 mmol/L; Blood Urea Nitrogen 18 mg/dL (9-20); Calcium 8.8 mg/dL (8.4-10.2); Carbon Dioxide 30 mmol/L (22-30); Chloride 99 mmol/L (98-107); Glucose 257 mg/dL (74-99); Magnesium 1.5 mg/dL (1.6-2.3); Non-African American GFR(CKD) 85 (>60 ml/min/1.73 sqM); Potassium 4.1 mmol/L (3.5-5.1); Sodium 135 mmol/L (137-145)
[2021-02-10] MEDS ORDERED: Magnesium Replacement Protocol 1 EACH MISC MISCELLANE PRN (14:52)
[2021-02-10] MEDS: MAGNESIUM SULFATE-D5W PMX 1 GM in DEXTROSE/WATER 1 100ML.BAG IVPB SCH ×2 (15:31→17:31)
[2021-02-10 17:15] LABS: Glucose,Whole Blood 341 mg/dL (75-99)
[2021-02-10] MEDS: ATORVASTATIN 40 MG TAB PO SCH (20:12)
[2021-02-10 20:56] LABS: Glucose,Whole Blood 156 mg/dL (75-99)
[2021-02-10 21:10] VITALS: RESP 18
--- NOTE | 2021-02-10 21:39 | P.PN ---
Subjective Progress Note Date: 02/09/21 Principal diagnosis: Acute renal injury 65 yo M with PMH of T2DM, CKD, CAD, A fib, diastolic CHF who presented to the ED with increasing weakness, malaise and vertigo. he was just recently admitted last week with shortness of breath and found to be in CHF exacerbation, he was diuresed at that time and discharged on lasix and lisinopril. He states he in itially did well after his discharge but then began to feel progressively worse. He also notes nausea, denies vomiting. No fever, chills, chest pain, shortness of breath. on presentation pt hypotensive, WBC 14k, Cr 3.59 baseline 1, potassium 2.4, trop 0.069, BNP 2400. Objective - Vital Signs Vital signs: Vital Signs Temp 98.5 F 02/09/21 08:00 Pulse 69 02/09/21 12:03 Resp 16 02/09/21 12:03 BP 162/54 02/09/21 12:03 Pulse Ox 93 L 02/09/21 12:03 Intake & Output 02/08/21 02/09/21 02/09/21 18:59 06:59 18:59 Intake Total 770 880 Output Total 500 1550 500 Balance 270 -670 -500 Weight 75.4 kg Intake: Intake, IV Titration 400 Amount Sodium Chloride 0.9% 1, 400 000 ml @ 50 mls/hr IV . Q20H [facility] Rx#:[id number] Oral 770 480 Output: Urine 500 1550 500 Other: Voiding Method Urinal Urinal - Exam - Constitutional General appearance: Present: average body habitus, cooperative, no acute distress - EENT Eyes: Present: anicteric sclerae, EOMI, PERRLA, normal appearance ENT: Present: hearing grossly normal, normal oropharynx Ears: bilateral: normal - Neck Neck: Present: normal ROM. Absent: lymphadenopathy, rigidity, thyromegaly Carotids: negative: bruit present Thyroid: bilateral: normal size, negative: enlarged, nodule - Respiratory Respiratory: bilateral: CTA, negative: rales, rhonchi, wheezing - Cardiovascular Rhythm: regular Heart sounds: normal: S1, S2 Abnormal Heart Sounds: Absent: systolic murmur, diastolic murmur - Gastrointestinal General gastrointestinal: Present: normal bowel sounds, soft. Absent: distended, organomegaly, tenderness - Genitourinary Genitourinary Comment(s): deferred - Integumentary Integumentary: Present: normal turgor. Absent: jaundiced, rash, ulcer - Neurologic Neurologic: Present: CNII-XII intact. Absent: focal deficits - Musculoskeletal Musculoskeletal: Present: gait normal, strength equal bilaterally - Psychiatric Psychiatric: Present: A&O x's 3, appropriate affect, intact judgment & insight - Labs CBC & Chem 7: 02/09/21 12:30 02/10/21 12:13 Labs: Abnormal Lab Results - Last 24 Hours (Table) 02/08/21 02/08/21 02/09/21 Range/Units 16:30 20:39 06:04 WBC (3.8-10.6) k/uL Hgb (13.0-17.5) gm/dL RDW (11.5-15.5) % Neutrophils # (1.3-7.7) k/uL Lymphocytes # (1.0-4.8) k/uL Sodium (137-145) mmol/L BUN (9-20) mg/dL Glucose (74-99) mg/dL POC Glucose (mg/dL) 314 H 157 H 189 H (75-99) mg/dL 02/09/21 02/09/21 Range/Units 11:58 12:30 WBC 11.5 H (3.8-10.6) k/uL Hgb 12.7 L (13.0-17.5) gm/dL RDW 16.0 H (11.5-15.5) % Neutrophils # 9.7 H (1.3-7.7) k/uL Lymphocytes # 0.9 L (1.0-4.8) k/uL Sodium 134 L (137-145) mmol/L BUN 21 H (9-20) mg/dL Glucose 326 H (74-99) mg/dL POC Glucose (mg/dL) (75-99) mg/dL Assessment and Plan Assessment: 1. Acute renal injury; patient remains on slow IV fluid hydration in form of normal saline; nephrology on board and recommending to continue to hold diuretic therapy; we will monitor strict ALEX's, daily weights, renal function and electrolytes; avoid nephrotoxins and hypotension 2. CAD/chronic systolic CHF; patient has history of ischemic cardiomyopathy with the EF of 45-50%; continue with aspirin, beta blockers and statin therapy 3. Chronic atrial fibrillation; remains rate controlled on amiodarone 200 mg daily and anticoagulated with Eliquis 5 mg by mouth twice a day 4. Diabetes mellitus type 2; HbA1c elevated at 8.0; we will monitor Accu-Cheks every before meals and at bedtime with insulin sliding scale 5. Hyperlipidemia; Lipitor 40 mg by mouth daily at bedtime 6. Hypertension; continue with metoprolol 50 mg twice a day; lisinopril remains on hold due to acute renal failure 7. Chronic back pain; continue with Cymbalta, Neurontin and oxycodone DVT prophylaxis; SCDs/systemic anticoagulation CODE STATUS; full code
--- NOTE | 2021-02-10 21:40 | P.PN ---
Subjective Progress Note Date: 02/10/21 Principal diagnosis: Acute renal injury 65 yo M with PMH of T2DM, CKD, CAD, A fib, diastolic CHF who presented to the ED with increasing weakness, malaise and vertigo. he was just recently admitted last week with shortness of breath and found to be in CHF exacerbation, he was diuresed at that time and discharged on lasix and lisinopril. He states he in itially did well after his discharge but then began to feel progressively worse. He also notes nausea, denies vomiting. No fever, chills, chest pain, shortness of breath. on presentation pt hypotensive, WBC 14k, Cr 3.59 baseline 1, potassium 2.4, trop 0.069, BNP 2400. 02/10/2021 Patient is seen and evaluated in room at bedside; denies any specific complaints Vital signs are reviewed and stable with temperature of 98.5, pulse 72, respirations 16 and blood pressure 181/92; patient continues to have good urine output Nephrology recommending to resume home dose of lisinopril due to uncontrolled hypertension and monitor renal function closely; plan would be to discharge patient home on current medications if renal function remains stable Objective - Vital Signs Vital signs: Vital Signs Temp 98.5 F 02/10/21 07:49 Pulse 66 02/10/21 12:00 Resp 16 02/10/21 12:00 BP 166/83 02/10/21 12:00 Pulse Ox 94 L 02/10/21 12:00 Intake & Output 02/09/21 02/10/21 02/10/21 18:59 06:59 18:59 Output Total 500 502 Balance -500 -502 Weight 82 kg Output: Urine 500 502 Other: Voiding Method Urinal Toilet Toilet Urinal Urinal # Voids 1 - Exam - Constitutional General appearance: Present: average body habitus, cooperative, no acute distress - EENT Eyes: Present: anicteric sclerae, EOMI, PERRLA, normal appearance ENT: Present: hearing grossly normal, normal oropharynx Ears: bilateral: normal - Neck Neck: Present: normal ROM. Absent: lymphadenopathy, rigidity, thyromegaly Carotids: negative: bruit present Thyroid: bilateral: normal size, negative: enlarged, nodule - Respiratory Respiratory: bilateral: CTA, negative: rales, rhonchi, wheezing - Cardiovascular Rhythm: regular Heart sounds: normal: S1, S2 Abnormal Heart Sounds: Absent: systolic murmur, diastolic murmur - Gastrointestinal General gastrointestinal: Present: normal bowel sounds, soft. Absent: distended, organomegaly, tenderness - Genitourinary Genitourinary Comment(s): deferred - Integumentary Integumentary: Present: normal turgor. Absent: jaundiced, rash, ulcer - Neurologic Neurologic: Present: CNII-XII intact. Absent: focal deficits - Musculoskeletal Musculoskeletal: Present: gait normal, strength equal bilaterally - Psychiatric Psychiatric: Present: A&O x's 3, appropriate affect, intact judgment & insight - Labs CBC & Chem 7: 02/09/21 12:30 02/10/21 12:13 Labs: Abnormal Lab Results - Last 24 Hours (Table) 02/09/21 02/09/21 02/09/21 Range/Units 12:30 17:12 19:55 WBC 11.5 H (3.8-10.6) k/uL Hgb 12.7 L (13.0-17.5) gm/dL RDW 16.0 H (11.5-15.5) % Neutrophils # 9.7 H (1.3-7.7) k/uL Lymphocytes # 0.9 L (1.0-4.8) k/uL POC Glucose (mg/dL) 247 H 367 H (75-99) mg/dL 02/10/21 02/10/21 Range/Units 06:05 11:19 WBC (3.8-10.6) k/uL Hgb (13.0-17.5) gm/dL RDW (11.5-15.5) % Neutrophils # (1.3-7.7) k/uL Lymphocytes # (1.0-4.8) k/uL POC Glucose (mg/dL) 296 H 225 H (75-99) mg/dL Assessment and Plan Assessment: 1. Acute renal injury; patient remains on slow IV fluid hydration in form of normal saline; nephrology on board and recommending to continue to hold diuretic therapy; we will monitor strict ALEX's, daily weights, renal function and electrolytes; avoid nephrotoxins and hypotension 2. CAD/chronic systolic CHF; patient has history of ischemic cardiomyopathy with the EF of 45-50%; continue with aspirin, beta blockers and statin therapy 3. Chronic atrial fibrillation; remains rate controlled on amiodarone 200 mg d aily and anticoagulated with Eliquis 5 mg by mouth twice a day 4. Diabetes mellitus type 2; HbA1c elevated at 8.0; we will monitor Accu-Cheks every before meals and at bedtime with insulin sliding scale 5. Hyperlipidemia; Lipitor 40 mg by mouth daily at bedtime 6. Hypertension; continue with metoprolol 50 mg twice a day; lisinopril remains on hold due to acute renal failure 7. Chronic back pain; continue with Cymbalta, Neurontin and oxycodone DVT prophylaxis; SCDs/systemic anticoagulation CODE STATUS; full code
[2021-02-11 06:29] LABS: Glucose,Whole Blood 312 mg/dL (75-99)
[2021-02-11] MEDS: INSULIN ASPART (NovoLOG) 100 UNIT/ML VIAL SQ SCH ×2 (06:33→12:56)
[2021-02-11] MEDS: PANTOPRAZOLE 40 MG TABLET PO SCH (06:33)
[2021-02-11 08:37] LABS: African American GFR (CKD) >90 (>60 ml/min/1.73 sqM); Anion Gap 9 mmol/L; Blood Urea Nitrogen 19 mg/dL (9-20); Calcium 9.1 mg/dL (8.4-10.2); Carbon Dioxide 26 mmol/L (22-30); Chloride 100 mmol/L (98-107); Glucose 229 mg/dL (74-99); Magnesium 1.8 mg/dL (1.6-2.3); Non-African American GFR(CKD) 88 (>60 ml/min/1.73 sqM); Potassium 3.5 mmol/L (3.5-5.1); Sodium 135 mmol/L (137-145)
[2021-02-11 09:05] VITALS: BP 121/60; PULSE 72; TEMP 98.2
[2021-02-11] MEDS ORDERED: oxyCODONE ER 80 MG TAB.ER.12H PO SCH (09:15)
[2021-02-11] MEDS: AMIODARONE 200 MG TAB PO SCH (09:24)
[2021-02-11] MEDS: ASPIRIN 81 MG PO SCH (09:24)
[2021-02-11] MEDS: lisinopriL 10 MG TAB PO SCH (09:24)
[2021-02-11] MEDS: DULoxetine HCL 60 MG CAPSULE.DR PO SCH (09:24)
[2021-02-11] MEDS: GABAPENTIN 300 MG CAP PO SCH (09:25)
[2021-02-11] MEDS: METOPROLOL TARTRATE 50 MG TAB PO SCH (09:25)
[2021-02-11] MEDS: APIXABAN 5 MG TAB PO SCH (09:25)
[2021-02-11] MEDS: oxyCODONE ER 20 MG TAB.ER.12H PO PRN (09:26)
[2021-02-11] MEDS ORDERED: oxyCODONE ER 20 MG TAB.ER.12H PO ONE (09:30)
--- NOTE | 2021-02-11 10:29 | P.DS ---
Providers Date of admission: 02/06/21 18:58 Expected date of discharge: 02/11/21 Attending physician: Puma Lovell MD Consults: 02/06/21 18:59 Consult Physician Routine Consulting Provider: Clari Back Consult Reason/Comments: MATHEUS Do you want consulting provider notified?: Yes Primary care physician: Puma Lovell MD Hospital Course: Final Diagnoses: 1. Acute kidney injury secondary to diuretic use. 2. Chronic systolic CHF, EF 45-50%. 3. CAD, history of [place], CABG, ischemic cardiomyopathy. 4. Chronic A fib. Anticoagulated on eliquis 5. T2DM. Hyperglycemia, Hemoglobin A1c 8 6. Chronic back pain. 7. Hypokalemia, resolved 8. Gastroesophageal reflux disease Hospital course:Ashok Austin is a 65 yo M with PMH of T2DM, CKD, CAD, A fib, diastolic CHF who presented to the ED with increasing weakness, malaise and vertigo. he was just recently admitted last week with shortness of breath and found to be in CHF exacerbation, he was diuresed at that time and discharged on lasix and lisinopril. He states he initially did well after his discharge but then began to feel progressively worse. He also notes nausea, denies vomiting. No fever, chills, chest pain, shortness of breath. on presentation pt hypotensive, WBC 14k, Cr 3.59 baseline 1, potassium 2.4, trop 0.069, BNP 2400. 02/08/2021 renal ultrasound reported no hydronephrosis or nephrolithiasis. Maintained on IV fluid hydration with significant improvement in renal function with creatinine down to 1.68, potassium 4.4, magnesium 1.8. Feels better. Denies nausea, vomiting, diarrhea. Denies bloating. Denies abdominal pain. Consumed 75% of dinner last night, 0% of breakfast this morning. VSS, T-max 99.1. Patient has remained off of Lasix, PRAMOD inhibitor resumed with significant clinical improvement. Lungs clear to auscultation, denies shortness of breath, maintaining O2 sats in the high 90s on room air. Renal function stable with BUN 19, creatinine 0.92. Patient will be discharged home today in stable condition with guarded prognosis pending final DC recommendations per nephrology. Further diabetic teaching in clinic as hemoglobin A1c elevated at 8. The impression and plan of care has been dictated as directed. : I performed a history and examination of this patient, discussed the same with the dictator. I agree with the dictator's note ,documented as a scribe. Any ad ditional findings or plans will be noted. Patient Condition at Discharge: Stable Plan - Discharge Summary Discharge Rx Participant: Yes New Discharge Prescriptions: Continue DULoxetine HCL [Cymbalta] 60 mg PO BID glipiZIDE [Glucotrol] 5 mg PO AC-BID Semaglutide [Ozempic] 0.5 mg SQ Q7D oxyCODONE HCL [oxyCODONE HCL (IR)] 15 mg PO Q8H Aspirin 81 mg PO DAILY #30 chew Apixaban [Eliquis] 5 mg PO BID #60 tab Insulin Glargine,Hum.rec.anlog [Lantus Solostar Pen] 25 unit SQ DAILY Atorvastatin [Lipitor] 40 mg PO HS oxyCODONE ER [OxyCONTIN] 80 mg PO Q12H Metoprolol Tartrate [Lopressor] 50 mg PO BID #60 tab Pantoprazole [Protonix] 40 mg PO AC-BRKFST #30 tablet. rOPINIRole HCL [Requip] 1 mg PO BID Insulin Aspart [NovoLOG Flexpen] See Protocol SQ AC-TID metFORMIN HCL [Glucophage] 1,000 mg PO BID Amiodarone [Cordarone] 200 mg PO DAILY Gabapentin [Neurontin] 300 mg PO BID Changed lisinopriL 10 mg PO DAILY #1 tablet Discontinued Potassium Chloride ER [K-Dur 20] 20 meq PO DAILY #30 tab Furosemide [Lasix] 40 mg PO BID 30 Days #60 tablet Discharge Medication List DULoxetine HCL [Cymbalta] 60 mg PO BID 11/16/19 [History] Semaglutide [Ozempic] 0.5 mg SQ Q7D 11/16/19 [History] glipiZIDE [Glucotrol] 5 mg PO AC-BID 11/16/19 [History] oxyCODONE HCL [oxyCODONE HCL (IR)] 15 mg PO Q8H 03/01/20 [History] Aspirin 81 mg PO DAILY #30 chew 04/10/20 [Rx] Apixaban [Eliquis] 5 mg PO BID #60 tab 10/02/20 [Rx] Metoprolol Tartrate [Lopressor] 50 mg PO BID #60 tab 10/02/20 [Rx] Pantoprazole [Protonix] 40 mg PO AC-BRKFST #30 tablet. 10/02/20 [Rx] Amiodarone [Cordarone] 200 mg PO DAILY 01/31/21 [History] Atorvastatin [Lipitor] 40 mg PO HS 01/31/21 [History] Insulin Aspart [NovoLOG Flexpen] See Protocol SQ AC-TID 01/31/21 [History] Insulin Glargine,Hum.rec.anlog [Lantus Solostar Pen] 25 unit SQ DAILY 01/31/21 [History] metFORMIN HCL [Glucophage] 1,000 mg PO BID 01/31/21 [History] oxyCODONE ER [OxyCONTIN] 80 mg PO Q12H 01/31/21 [History] rOPINIRole HCL [Requip] 1 mg PO BID 01/31/21 [History] Gabapentin [Neurontin] 300 mg PO BID 02/06/21 [History] lisinopriL 10 mg PO DAILY #1 tablet 02/11/21 [Rx] Follow up Appointment(s)/Referral(s): Puma Lovell MD [Primary Care Provider] - 02/13/21 3:00 pm (Appointment is with Stephanie. MIR) Patient Instructions/Handouts: Acute Kidney Injury (DC), Vertigo (DC), Weakness (DC) Activity/Diet/Wound Care/Special Instructions: pending final dc rec & clearance from nephrology
[2021-02-11 11:46] LABS: Glucose,Whole Blood 267 mg/dL (75-99)
--- NOTE | 2021-02-11 14:05 | PN ---
PROGRESS NOTE Patient is seen for followup for acute kidney injury. His renal function has improved, with serum creatinine now at about 0.9 mg/dL. Patient is asking for pain medication. On examination today, blood pressure 121/60, heart rate 72 per minute. He is afebrile. EXAMINATION OF THE HEART: S1 and S2. EXAMINATION OF LUNGS: Bilateral breath sounds are heard. Abdomen is soft, non-tender. Examination of lower extremities shows no significant edema. WREATH MACHINE TENDER EXAM: Grossly intact. Labs show sodium 135, potassium 3.5, BUN 19, serum creatinine 0.92. ASSESSMENT: 1. Acute kidney injury, currently resolved, mostly prerenal. Baseline creatinine around 1. UA is fairly benign. Serum creatinine was 3.59 on initial admission. 2. Hypokalemia secondary to diuresis, status post replacement. 3. Chronic congestive heart failure, ejection fraction 45% to 50%. 4. Atrial fibrillation, maintained on amiodarone, Lopressor, anticoagulation. 5. Benign hypertension. PLAN: Continue with the lisinopril. Monitor electrolytes as outpatient. Patient is okay for discharge from nephrology standpoint. MMODL / IJN: [id number] /
== END 2021-02-11 16:33 | disposition home or self-care (01) | DRG 683 ==
LOC: EC 16:46 → 3SCARD 18:58
PROVIDERS: ADMIT Family Medicine; ATTEND Family Medicine
DX: N17.9 Acute kidney failure, unspecified (principal); I13.0 Hypertensive heart and chronic kidney disease with heart failure and stage 1 through stage 4 chronic kidney disease, or unspecified chronic kidney disease; I48.20 Chronic atrial fibrillation, unspecified; I50.42 Chronic combined systolic (congestive) and diastolic (congestive) heart failure; Z20.822 Contact with and (suspected) exposure to COVID-19; T50.2X5A Adverse effect of carbonic-anhydrase inhibitors, benzothiadiazides and other diuretics, initial encounter; E11.22 Type 2 diabetes mellitus with diabetic chronic kidney disease; E11.65 Type 2 diabetes mellitus with hyperglycemia; E78.5 Hyperlipidemia, unspecified; E86.1 Hypovolemia; E87.6 Hypokalemia; G89.29 Other chronic pain; I25.10 Atherosclerotic heart disease of native coronary artery without angina pectoris; I25.2 Old myocardial infarction; I25.5 Ischemic cardiomyopathy; K21.9 Gastro-esophageal reflux disease without esophagitis; N18.9 Chronic kidney disease, unspecified; Z79.01 Long term (current) use of anticoagulants; Z79.4 Long term (current) use of insulin; Z79.82 Long term (current) use of aspirin; Z79.84 Long term (current) use of oral hypoglycemic drugs; Z95.1 Presence of aortocoronary bypass graft; Z87.891 Personal history of nicotine dependence; Z83.3 Family history of diabetes mellitus; Z82.49 Family history of ischemic heart disease and other diseases of the circulatory system; Z79.899 Other long term (current) drug therapy; M54.5 Low back pain
CPT/HCPCS: 36415; 76770; 80048; 80053; 81003; 83036; 83605; 83735; 83880; 84132; 84484; 85025; 85610; 85730; 87635; 93005; 96360; 99285

== ENCOUNTER 2021-03-10 12:26 | Inpatient (IN) | payer MEDICARE, OTHER ==
[2021-03-10] MEDS ORDERED: SODIUM CHLORIDE 0.9% 1,000 ML IV STA (12:30)
[2021-03-10] MEDS ORDERED: METOCLOPRAMIDE 5 MG/ML 2 ML VIAL IVP STA (12:30)
[2021-03-10] MEDS ORDERED: FAMOTIDINE 20 MG/2 ML VIAL IV STA (12:30)
--- NOTE | 2021-03-10 12:34 | ED ---
General Adult HPI - General Chief complaint: Nausea/Vomiting/Diarrhea Stated complaint: vomiting Source: patient, EMS, RN notes reviewed Mode of arrival: EMS Limitations: no limitations - History of Present Illness Initial comments: Patient is a pleasant 65-year-old male presenting to the emergency Department with vomiting. Onset of symptoms was this morning. Patient denies any chest discomfort. No dyspnea. Patient does have history of similar symptoms previously. Patient is somewhat a poor historian. EMS helps provide history. - Related Data Home Medications Medication Instructions Recorded Confirmed DULoxetine HCL [Cymbalta] 60 mg PO BID 11/16/19 03/10/21 Semaglutide [Ozempic] 0.5 mg SQ Q7D 11/16/19 03/10/21 glipiZIDE [Glucotrol] 5 mg PO AC-BID 11/16/19 03/10/21 oxyCODONE HCL [oxyCODONE HCL (IR)] 15 mg PO Q8H 03/01/20 03/10/21 Amiodarone [Cordarone] 200 mg PO DAILY 01/31/21 03/10/21 Atorvastatin [Lipitor] 40 mg PO HS 01/31/21 03/10/21 Insulin Aspart [NovoLOG Flexpen] See Protocol SQ AC-TID 01/31/21 03/10/21 Insulin Glargine,Hum.rec.anlog 25 unit SQ DAILY 01/31/21 03/10/21 [Lantus Solostar Pen] metFORMIN HCL [Glucophage] 1,000 mg PO BID 01/31/21 03/10/21 oxyCODONE ER [OxyCONTIN] 80 mg PO Q12H 01/31/21 03/10/21 rOPINIRole HCL [Requip] 1 mg PO BID 01/31/21 03/10/21 Gabapentin [Neurontin] 300 mg PO BID 02/06/21 03/10/21 Previous Rx's Medication Instructions Recorded Aspirin 81 mg PO DAILY #30 chew 04/10/20 Apixaban [Eliquis] 5 mg PO BID #60 tab 10/02/20 Metoprolol Tartrate [Lopressor] 50 mg PO BID #60 tab 10/02/20 Pantoprazole [Protonix] 40 mg PO AC-DENISE #30 tablet. 10/02/20 lisinopriL [Prinivil] 10 mg PO DAILY #1 tablet 02/11/21 Allergies Allergy/AdvReac Type Severity Reaction Status Date / Time No Known Allergies Allergy Verified 03/10/21 14:31 Review of Systems ROS Statement: Those systems with pertinent positive or pertinent negative responses have been documented in the HPI. ROS Other: All systems not noted in ROS Statement are negative. Constitutional: Denies: fever Eyes: Denies: eye pain ENT: Denies: ear pain Respiratory: Denies: dyspnea Cardiovascular: Denies: chest pain Endocrine: Denies: fatigue Gastrointestinal: Reports: as per HPI, nausea, vomiting. Denies: abdominal pain, diarrhea, constipation Genitourinary: Denies: dysuria Musculoskeletal: Denies: back pain Skin: Denies: rash Past Medical History Past Medical History: Atrial Fibrillation, Coronary Artery Disease (CAD), Chest Pain / Angina, Diabetes Mellitus, GERD/Reflux, Hyperlipidemia, Hypertension, Myocardial Infarction ([place]) Additional Past Medical History / Comment(s): Pt had CABG 07/2019 and had post op Afib/UTI with pseudomonas aeruginosa, ischemic cardiomyopathy, IDDM type II, past R scrotal abscess with sepsis, chronic lower back pain and bilateral leg pain, Last Myocardial Infarction Date:: 03/20/15 History of Any Multi-Drug Resistant Organisms: None Reported Past Surgical History: Back Surgery, Coronary Bypass/CABG, Heart Catheterization, Heart Catheterization With Stent, Orthopedic Surgery Additional Past Surgical History / Comment(s): 08/23/2019 CABG 3 vessels, PCI with total of 5 stents, L ankle ligament repair, R leg ORIF, low back surgery, colonoscopy. Past Anesthesia/Blood Transfusion Reactions: No Reported Reaction Additional Past Anesthesia/Blood Transfusion Reaction / Comment(s): Pt has received blood in past without reaction. Date of Last Stent Placement:: 02/2015 Past Psychological History: No Psychological Hx Reported Smoking Status: Former smoker Past Alcohol Use History: None Reported Past Drug Use History: Marijuana - Past Family History Sister(s) Family Medical History: Coronary Artery Disease (CAD), Hypertension Father Family Medical History: Coronary Artery Disease (CAD), Diabetes Mellitus, Deep Vein Thrombosis (DVT), Hypertension Additional Family Medical History / Comment(s): Father at age 58yrs. He of blood clot from leg injury that went to his heart. General Exam Limitations: no limitations General appearance: alert Head exam: Present: normocephalic Eye exam: Present: normal appearance ENT exam: Present: normal oropharynx Neck exam: Present: normal inspection Respiratory exam: Present: normal lung sounds bilaterally Cardiovascular Exam: Present: tachycardia GI/Abdominal exam: Present: soft. Absent: tenderness Extremities exam: Present: normal inspection Neurological exam: Present: alert. Absent: motor sensory deficit Psychiatric exam: Present: normal affect, normal mood Skin exam: Present: normal color Course Vital Signs 03/10/21 12:29 Temperature 97.9 F Pulse Rate 117 H Respiratory 20 Rate Blood Pressure 162/96 O2 Sat by Pulse 100 Oximetry - Reevaluation(s) Reevaluation #1: 03/10/21 14:27 EKG #2 shows A. fib with RVR rate 167. QRS 120. QT 302. QTC 503. Left axis. Incomplete left bundle-branch block. Nonspecific ST-T. Inferior Q waves. EKG #3 shows A. fib with rate of 134. HI 146. QRS 122. QT 358. QTC 534. Left axis. Incomplete left bundle-branch block. Inferior Q waves. EKG Findings - EKG Comments: EKG Findings:: Sinus tachycardia with rate 116. HI 148. QRS 120. QT 412. QTC 572. Left axis. Incomplete left bundle-branch block. Inferior Q waves. Nonspecific ST-T. Previous EKG reviewed dated February 06, 2021. Medical Decision Making - Medical Decision Making Patient reevaluated and is feeling better. Heart rate is irregular with a rate 150-160. Patient updated on results and plan. Dr. zamarripa has been paged for admission, covering Dr. Lovell Case was discussed with Dr. zamarripa, who will admit. - Lab Data Result diagrams: 03/10/21 12:37 03/10/21 12:37 Lab Results 03/10/21 03/10/21 03/10/21 Range/Units 12:37 12:37 12:37 WBC 13.0 H (3.8-10.6) k/uL RBC 5.16 (4.30-5.90) m/uL Hgb 14.5 (13.0-17.5) gm/dL Hct 45.3 (39.0-53.0) % MCV 87.8 (80.0-100.0) fL MCH 28.1 (25.0-35.0) pg MCHC 32.0 (31.0-37.0) g/dL RDW 16.2 H (11.5-15.5) % Plt Count 323 (150-450) k/uL MPV 7.3 Neutrophils % 87 % Lymphocytes % 6 % Monocytes % 5 % Eosinophils % 0 % Basophils % 1 % Neutrophils # 11.2 H (1.3-7.7) k/uL Lymphocytes # 0.8 L (1.0-4.8) k/uL Monocytes # 0.7 (0-1.0) k/uL Eosinophils # 0.1 (0-0.7) k/uL Basophils # 0.1 (0-0.2) k/uL Hypochromasia Slight Anisocytosis Slight PT 10.1 (9.0-12.0) sec INR 0.9 (<1.2) APTT 26.0 (22.0-30.0) sec Sodium (137-145) mmol/L Potassium (3.5-5.1) mmol/L Chloride (98-107) mmol/L Carbon Dioxide (22-30) mmol/L Anion Gap mmol/L BUN (9-20) mg/dL Creatinine (0.66-1.25) mg/dL Est GFR (CKD-EPI)AfAm (>60 ml/min/1.73 sqM) Est GFR (CKD-EPI)NonAf (>60 ml/min/1.73 sqM) Glucose (74-99) mg/dL Plasma Lactic Acid Chinedu (0.7-2.0) mmol/L Calcium (8.4-10.2) mg/dL Ionized Calcium Kristin (4.5-5.3) mg/dL Magnesium (1.6-2.3) mg/dL Total Bilirubin (0.2-1.3) mg/dL AST (17-59) U/L ALT (4-49) U/L Alkaline Phosphatase (38-126) U/L Troponin I (0.000-0.034) ng/mL Total Protein (6.3-8.2) g/dL Albumin (3.5-5.0) g/dL Amylase (30-110) U/L Lipase (23-300) U/L Urine Color Light Yellow Urine Appearance Clear (Clear) Urine pH 7.0 (5.0-8.0) Ur Specific [place] 1.006 (1.001-1.035) Urine Protein 1+ H (Negative) Urine Glucose (UA) 3+ H (Negative) Urine Ketones 1+ H (Negative) Urine Blood Trace H (Negative) Urine Nitrite Negative (Negative) Urine Bilirubin Negative (Negative) Urine Urobilinogen <2.0 (<2.0) mg/dL Ur Leukocyte Esterase Negative (Negative) Urine RBC 6 H (0-5) /hpf Urine WBC 1 (0-5) /hpf Urine Opiates Screen (NotDetected) Ur Oxycodone Screen (NotDetected) Urine Methadone Screen (NotDetected) Ur Propoxyphene Screen (NotDetected) Ur Barbiturates Screen (NotDetected) U Tricyclic Antidepress (NotDetected) Ur Phencyclidine Scrn (NotDetected) Ur Amphetamines Screen (NotDetected) U Methamphetamines Scrn (NotDetected) U Benzodiazepines Scrn (NotDetected) Urine Cocaine Screen (NotDetected) U Marijuana (THC) Screen (NotDetected) Acetone, Qual (Negative) 03/10/21 03/10/21 03/10/21 Range/Units 12:37 12:37 12:37 WBC (3.8-10.6) k/uL RBC (4.30-5.90) m/uL Hgb (13.0-17.5) gm/dL Hct (39.0-53.0) % MCV (80.0-100.0) fL MCH (25.0-35.0) pg MCHC (31.0-37.0) g/dL RDW (11.5-15.5) % Plt Count (150-450) k/uL MPV Neutrophils % % Lymphocytes % % Monocytes % % Eosinophils % % Basophils % % Neutrophils # (1.3-7.7) k/uL Lymphocytes # (1.0-4.8) k/uL Monocytes # (0-1.0) k/uL Eosinophils # (0-0.7) k/uL Basophils # (0-0.2) k/uL Hypochromasia Anisocytosis PT (9.0-12.0) sec INR (<1.2) APTT (22.0-30.0) sec Sodium 138 (137-145) mmol/L Potassium 3.3 L (3.5-5.1) mmol/L Chloride 98 (98-107) mmol/L Carbon Dioxide 23 (22-30) mmol/L Anion Gap 17 mmol/L BUN 18 (9-20) mg/dL Creatinine 0.87 (0.66-1.25) mg/dL Est GFR (CKD-EPI)AfAm >90 (>60 ml/min/1.73 sqM) Est GFR (CKD-EPI)NonAf >90 (>60 ml/min/1.73 sqM) Glucose 288 H (74-99) mg/dL Plasma Lactic Acid Chinedu 3.3 H* (0.7-2.0) mmol/L Calcium 9.3 (8.4-10.2) mg/dL Ionized Calcium Kristin 4.2 L (4.5-5.3) mg/dL Magnesium 1.5 L (1.6-2.3) mg/dL Total Bilirubin 0.8 (0.2-1.3) mg/dL AST 34 (17-59) U/L ALT 28 (4-49) U/L Alkaline Phosphatase 172 H (38-126) U/L Troponin I 0.031 (0.000-0.034) ng/mL Total Protein 7.4 (6.3-8.2) g/dL Albumin 4.1 (3.5-5.0) g/dL Amylase 118 H (30-110) U/L Lipase 51 (23-300) U/L Urine Color Urine Appearance (Clear) Urine pH (5.0-8.0) Ur Specific [place] (1.001-1.035) Urine Protein (Negative) Urine Glucose (UA) (Negative) Urine Ketones (Negative) Urine Blood (Negative) Urine Nitrite (Negative) Urine Bilirubin (Negative) Urine Urobilinogen (<2.0) mg/dL Ur Leukocyte Esterase (Negative) Urine RBC (0-5) /hpf Urine WBC (0-5) /hpf Urine Opiates Screen (NotDetected) Ur Oxycodone Screen (NotDetected) Urine Methadone Screen (NotDetected) Ur Propoxyphene Screen (NotDetected) Ur Barbiturates Screen (NotDetected) U Tricyclic Antidepress (NotDetected) Ur Phencyclidine Scrn (NotDetected) Ur Amphetamines Screen (NotDetected) U Methamphetamines Scrn (NotDetected) U Benzodiazepines Scrn (NotDetected) Urine Cocaine Screen (NotDetected) U Marijuana (THC) Screen (NotDetected) Acetone, Qual Positive (Negative) 03/10/21 Range/Units 12:37 WBC (3.8-10.6) k/uL RBC (4.30-5.90) m/uL Hgb (13.0-17.5) gm/dL Hct (39.0-53.0) % MCV (80.0-100.0) fL MCH (25.0-35.0) pg MCHC (31.0-37.0) g/dL RDW (11.5-15.5) % Plt Count (150-450) k/uL MPV Neutrophils % % Lymphocytes % % Monocytes % % Eosinophils % % Basophils % % Neutrophils # (1.3-7.7) k/uL Lymphocytes # (1.0-4.8) k/uL Monocytes # (0-1.0) k/uL Eosinophils # (0-0.7) k/uL Basophils # (0-0.2) k/uL Hypochromasia Anisocytosis PT (9.0-12.0) sec INR (<1.2) APTT (22.0-30.0) sec Sodium (137-145) mmol/L Potassium (3.5-5.1) mmol/L Chloride (98-107) mmol/L Carbon Dioxide (22-30) mmol/L Anion Gap mmol/L BUN (9-20) mg/dL Creatinine (0.66-1.25) mg/dL Est GFR (CKD-EPI)AfAm (>60 ml/min/1.73 sqM) Est GFR (CKD-EPI)NonAf (>60 ml/min/1.73 sqM) Glucose (74-99) mg/dL Plasma Lactic Acid Chinedu (0.7-2.0) mmol/L Calcium (8.4-10.2) mg/dL Ionized Calcium Kristin (4.5-5.3) mg/dL Magnesium (1.6-2.3) mg/dL Total Bilirubin (0.2-1.3) mg/dL AST (17-59) U/L ALT (4-49) U/L Alkaline Phosphatase (38-126) U/L Troponin I (0.000-0.034) ng/mL Total Protein (6.3-8.2) g/dL Albumin (3.5-5.0) g/dL Amylase (30-110) U/L Lipase (23-300) U/L Urine Color Urine Appearance (Clear) Urine pH (5.0-8.0) Ur Specific [place] (1.001-1.035) Urine Protein (Negative) Urine Glucose (UA) (Negative) Urine Ketones (Negative) Urine Blood (Negative) Urine Nitrite (Negative) Urine Bilirubin (Negative) Urine Urobilinogen (<2.0) mg/dL Ur Leukocyte Esterase (Negative) Urine RBC (0-5) /hpf Urine WBC (0-5) /hpf Urine Opiates Screen Not Detected (NotDetected) Ur Oxycodone Screen Detected H (NotDetected) Urine Methadone Screen Not Detected (NotDetected) Ur Propoxyphene Screen Not Detected (NotDetected) Ur Barbiturates Screen Not Detected (NotDetected) U Tricyclic Antidepress Not Detected (NotDetected) Ur Phencyclidine Scrn Not Detected (NotDetected) Ur Amphetamines Screen Not Detected (NotDetected) U Methamphetamines Scrn Not Detected (NotDetected) U Benzodiazepines Scrn Not Detected (NotDetected) Urine Cocaine Screen Not Detected (NotDetected) U Marijuana (THC) Screen Detected H (NotDetected) Acetone, Qual (Negative) - Radiology Data Radiology results: image reviewed (chest and abdominal x-rays show no acute process) Critical Care Time Critical Care Time: Yes Total Critical Care Time: 33 Disposition Clinical Impression: Atrial fibrillation with RVR, Vomiting, Dehydration, DKA (diabetic ketoac idosis) Disposition: ADMITTED IP TO THIS [facility] Condition: Serious Is patient prescribed a controlled substance at d/c from ED?: No Referrals: Puma Lovell MD [Primary Care Provider] - 1-2 days Decision Time: 14:23
[2021-03-10 13:05] LABS: Ionized Calcium 4.2 mg/dL (4.5-5.3)
--- NOTE | 2021-03-10 13:06 | XR ---
EXAMINATION TYPE: XR chest 1V portable DATE OF EXAM: 03/10/2021 12:58 PM COMPARISON:Chest radiographs from CLINICAL INDICATION:Male, 65 years old with history of abdominal pain; TECHNIQUE: Frontal view of the chest. FINDINGS: Lungs/Pleura: There is no evidence of pleural effusion, focal consolidation, or pneumothorax. Pulmonary vascularity: Unremarkable. Heart/mediastinum: Cardiomediastinal silhouette is unremarkable. Musculoskeletal: No acute osseous pathology. Other findings: Midline sternotomy wires are noted and stable. Surgical clips are present in the mediastinum. IMPRESSION: No acute cardiopulmonary disease/process.
[2021-03-10 13:08] LABS: Anisocytosis Slight; Basophils # (A) 0.1 k/uL (0-0.2); Basophils % (A) 1 %; Eosinophils # (A) 0.1 k/uL (0-0.7); Eosinophils % (A) 0 %; HCT 45.3 % (39.0-53.0); HGB 14.5 gm/dL (13.0-17.5); Hypochromasia Slight; Lymphocytes # (A) 0.8 k/uL (1.0-4.8); Lymphocytes % (A) 6 %; MCH 28.1 pg (25.0-35.0); MCV 87.8 fL (80.0-100.0); Mean Platelet Volume 7.3; Monocytes # (A) 0.7 k/uL (0-1.0); Monocytes % (A) 5 %; Neutrophils # (A) 11.2 k/uL (1.3-7.7); Neutrophils % (A) 87 %; Platelet Count 323 k/uL (150-450); RBC 5.16 m/uL (4.30-5.90); RDW 16.2 % (11.5-15.5)
--- NOTE | 2021-03-10 13:08 | XR ---
EXAMINATION TYPE: XR KUB DATE OF EXAM: 03/10/2021 12:58 PM INDICATION: Patient age:Male; 65 years old; Reason for study: abdominal pain; PHH. COMPARISON: CT Abdomen and pelvis 09/20/2020 TECHNIQUE: One radiographic view of the abdomen was obtained. FINDINGS: The bowel gas pattern is nonspecific without dilated loops of small or large bowel. There i s no evidence for organomegaly or pneumoperitoneum. The osseous structures are intact. Pelvic phleb oliths are present. Calcification density over the left kidney sinus may represent renal stones. Feca l material and gas are demonstrated throughout the colon and rectum. Multilevel degenerative changes of the lumbar spine. IMPRESSION: No acute abdominal process.
[2021-03-10 13:13] LABS: INR 0.9 (<1.2); Prothrombin Time 10.1 sec (9.0-12.0)
[2021-03-10 13:14] LABS: Appearance,Urine Clear (Clear); Bilirubin,Urine Negative (Negative); Blood,Urine Trace (Negative); Color,Urine Light Yellow; Glucose,Urine (UA) 3+ (Negative); Ketones,Urine 1+ (Negative); Leukocyte Esterase,Urine Negative (Negative); Nitrite,Urine Negative (Negative); Protein,Urine 1+ (Negative); RBC,Urine 6 /hpf (0-5); Specific Gravity,Urine 1.006 (1.001-1.035); Urobilinogen,Urine <2.0 mg/dL (<2.0); WBC,Urine 1 /hpf (0-5)
[2021-03-10 13:15] LABS: ALT 28 U/L (4-49); African American GFR (CKD) >90 (>60 ml/min/1.73 sqM); Albumin 4.1 g/dL (3.5-5.0); Amylase 118 U/L (30-110); Anion Gap 17 mmol/L; Blood Urea Nitrogen 18 mg/dL (9-20); Calcium 9.3 mg/dL (8.4-10.2); Carbon Dioxide 23 mmol/L (22-30); Chloride 98 mmol/L (98-107); Glucose 288 mg/dL (74-99); Lipase 51 U/L (23-300); Non-African American GFR(CKD) >90 (>60 ml/min/1.73 sqM); Sodium 138 mmol/L (137-145); Total Bilirubin 0.8 mg/dL (0.2-1.3); Total Protein 7.4 g/dL (6.3-8.2)
[2021-03-10 13:18] LABS: Amphetamine Screen,Urine Not Detected (NotDetected); Barbiturate Screen,Urine Not Detected (NotDetected); Benzodiazepines Screen,Urine Not Detected (NotDetected); Cocaine Screen,Urine Not Detected (NotDetected); Methadone Screen, Urine Not Detected (NotDetected); Opiate Screen,Urine Not Detected (NotDetected); Oxycodone Screen, Urine Detected (NotDetected); Phencyclidine Screen,Urine Not Detected (NotDetected); Tricyclic Antidepressant,Urine Not Detected (NotDetected); Urn Cannabinoid Scrn Detected (NotDetected)
[2021-03-10 13:19] LABS: AST 34 U/L (17-59); Alkaline Phosphatase 172 U/L (38-126); Magnesium 1.5 mg/dL (1.6-2.3); Potassium 3.3 mmol/L (3.5-5.1)
[2021-03-10] MEDS ORDERED: SODIUM CHLORIDE 0.9% 1,000 ML IV ONE (14:21)
[2021-03-10] MEDS ORDERED: MAGNESIUM SULFATE-D5W PMX 1 GM in DEXTROSE/WATER 1 100ML.BAG IVPB ONE (14:24)
[2021-03-10] MEDS: DILTIAZEM 125 MG in SODIUM CHLORIDE 0.9% 100 ML IV SCH (14:43)
[2021-03-10] MEDS: SODIUM CHLORIDE 0.9% 1,000 ML IV SCH (14:44)
[2021-03-10 15:01] LABS: Glucose,Whole Blood 298 mg/dL (75-99)
[2021-03-10] MEDS: POTASSIUM CHLORIDE 10 MEQ in WATER FOR INJECTION 1 100ML.BAG IVPB STA ×2 (15:10→15:35)
[2021-03-10] MEDS: INSULIN REGULAR 100 UNIT in SODIUM CHLORIDE 0.9% 100 ML IV SCH (15:26)
[2021-03-10] MEDS: D5-0.45% NACL WITH KCL 20MEQ/L 1,000 ML IV SCH (15:28)
[2021-03-10 16:30] LABS: Glucose,Whole Blood 310 mg/dL (75-99)
[2021-03-10 16:46] LABS: African American GFR (CKD) >90 (>60 ml/min/1.73 sqM); Anion Gap 14 mmol/L; Blood Urea Nitrogen 16 mg/dL (9-20); Carbon Dioxide 23 mmol/L (22-30); Chloride 103 mmol/L (98-107); Glucose 322 mg/dL (74-99); Non-African American GFR(CKD) >90 (>60 ml/min/1.73 sqM); Sodium 140 mmol/L (137-145)
[2021-03-10 16:58] LABS: Potassium 2.1 mmol/L (3.5-5.1)
[2021-03-10] MEDS ORDERED: Potassium Replacement Protocol 1 EACH MISC MISCELLANE PRN (17:20)
[2021-03-10] MEDS: POTASSIUM CHLORIDE 10 MEQ in WATER FOR INJECTION 1 100ML.BAG IVPB SCH ×2 (17:40→19:41)
[2021-03-10] MEDS ORDERED: POTASSIUM CHLORIDE ER 20 MEQ TAB.ER PO STA (18:17)
[2021-03-10] MEDS: oxyCODONE ER 20 MG TAB.ER.12H PO SCH (18:55)
--- NOTE | 2021-03-10 20:10 | HP ---
HISTORY AND PHYSICAL I am covering for Dr. Lovell. DATE OF SERVICE: 03/10/2021. CHIEF COMPLAINTS: Nausea, vomiting and weakness. HISTORY OF PRESENT ILLNESS: This 65-year-old gentleman with a past medical history of multiple medical problems, including atrial fibrillation, history of CAD, history of diabetes, GERD, hypertension, hyperlipidemia, being followed by primary physician Dr. Lovell in the outpatient setting, was admitted with complaints of vomiting, unable to keep anything down. The patient came to [facility] and was admitted for further evaluation and treatment. There is no history of any fever, rigors or chills. No history of headache, loss of consciousness, seizures. The patient was found to have possible early DKA. The patient had severe hypokalemia, which has been corrected, and the patient was admitted for further evaluation and treatment. Sugars were 322. Anion gap was 14. CO2 was normal. Magnesium was 1.5. The patient was found to be in atrial fibrillation with fast ventricular rate and was started on Cardizem at 5 mg/hour. The patient also was complaining of progressive falls and weakness. Patient also has scars on both knee joints. PAST MEDICAL HISTORY: History of atrial fibrillation, CAD, diabetes mellitus, type 2, GERD, hypertension, hyperlipidemia, history of myocardial infarction. HOME MEDICATIONS: Reviewed. They include n Lipitor, Requip, oxycodone, Glucophage, Prinivil, Glucotrol, Protonix, Lopressor, NovoLog, Lantus, Neurontin, Cymbalta. Doses are reviewed. ALLERGIES: NONE. FAMILY HISTORY: History of CAD, hypertension in the family. SOCIAL HISTORY: History of THC. Previous history of alcohol, but quit in 2001. REVIEW OF SYSTEMS: ENT: Diminished hearing. Diminished vision. CARDIOVASCULAR SYSTEM: No angina, palpitations. RESPIRATORY SYSTEM: As mentioned earlier. GI: As mentioned earlier. : No dysuria. NERVOUS SYSTEM: As mentioned earlier. HEMATOLOGY/ONCOLOGY: Negative. RHEUMATOLOGY: Negative. PSYCHIATRY: As mentioned earlier. CONSTITUTIONAL: As mentioned earlier. DERMATOLOGY: Negative. NEUROLOGY: As mentioned earlier. PHYSICAL EXAMINATION: Patient alert and oriented x3. Pulse is 120, blood pressure 112/67, respiration 20, temperature normal, pulse ox 99% on 2 L. HEENT: Conjunctivae normal. NECK: No jugular venous distention. CARDIOVASCULAR: S1, S2 muffled. Tachycardic. Irregular. Ejection systolic murmur. RESPIRATION: A few scattered rhonchi. ABDOMEN: Soft, non-tender. No mass palpable. LEGS: Extremely weak and emaciated. SKIN: No ulcer, rash, bleeding. Healed scars on the anterior part of both knees present. JOINTS: No active deforming arthropathy. LYMPHATICS: No lymph node palpable in neck, axillae or groin. NERVOUS SYSTEM: Diffusely weak and emaciated, as mentioned earlier. LABORATORY INVESTIGATIONS: WBC 13, hemoglobin 14.5. Potassium is 2.1. Other labs are noted. ASSESSMENT: 1. Atrial fibrillation with fast ventricular rate. 2. Diabetes mellitus, type 2, uncontrolled with possibly early diabetic ketoacidosis. 3. Severe hypokalemia. 4. Significant weakness and proximal myopathy. 5. Hypomagnesemia. 6. 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 7. History of falls possibly and gait dysfunction. 8. Increased white count. 9. History of coronary artery disease. 10.History of diabetes mellitus, type 2. 11.Gastroesophageal reflux disease. 12.Hypertension. 13.Hyperlipidemia. 14.History of myocardial infarction. 15.History of coronary artery disease, coronary artery bypass grafting. 16.History of back surgery. 17.History of coronary artery disease, stent. 18.History of degenerative joint disease. 19.History of THC. RECOMMENDATIONS AND DISCUSSION: In this 65-year-old gentleman who presented with multiple complex medical issues, at this time I recommend to continue the current medications, continue symptomatic treatment. Otherwise at this time I recommend continuing with the insulin. Supplement potassium. Obtain cultures. PT/OT evaluation. Patient might require ECF rehab. Continue the Cardizem. Cardiology consultation. Two-D echo with Doppler. T4 estimation. Resume the home medications. Prognosis is guarded because of multiple complex medical issues. Dr. Lovell will follow tomorrow. MMODL / IJN: [id number] / [facility]
[2021-03-10 21:03] LABS: ALT 24 U/L (4-49); AST 29 U/L (17-59); African American GFR (CKD) >90 (>60 ml/min/1.73 sqM); Albumin 3.6 g/dL (3.5-5.0); Alkaline Phosphatase 152 U/L (38-126); Anion Gap 15 mmol/L; Blood Urea Nitrogen 18 mg/dL (9-20); Calcium 8.7 mg/dL (8.4-10.2); Carbon Dioxide 25 mmol/L (22-30); Chloride 100 mmol/L (98-107); Glucose 211 mg/dL (74-99); Non-African American GFR(CKD) 79 (>60 ml/min/1.73 sqM); Phosphorus 2.5 mg/dL (2.5-4.5); Potassium 2.9 mmol/L (3.5-5.1); Sodium 140 mmol/L (137-145); Total Bilirubin 0.5 mg/dL (0.2-1.3); Total Protein 6.6 g/dL (6.3-8.2)
[2021-03-10 22:06] LABS: Glucose,Whole Blood 249 mg/dL (75-99)
[2021-03-10] MEDS: METOPROLOL TARTRATE 50 MG TAB PO SCH (22:21)
[2021-03-10] MEDS: APIXABAN 5 MG TAB PO SCH (22:21)
[2021-03-10] MEDS: ATORVASTATIN 40 MG TAB PO SCH (22:21)
[2021-03-10 23:11] LABS: ALT 26 U/L (4-49); AST 31 U/L (17-59); African American GFR (CKD) >90 (>60 ml/min/1.73 sqM); Alkaline Phosphatase 160 U/L (38-126); Anion Gap 15 mmol/L; Blood Urea Nitrogen 17 mg/dL (9-20); Calcium 9.1 mg/dL (8.4-10.2); Carbon Dioxide 26 mmol/L (22-30); Chloride 99 mmol/L (98-107); Glucose 220 mg/dL (74-99); Non-African American GFR(CKD) 79 (>60 ml/min/1.73 sqM); Sodium 140 mmol/L (137-145); Total Bilirubin 0.5 mg/dL (0.2-1.3); Total Protein 7.2 g/dL (6.3-8.2)
[2021-03-10 23:16] LABS: Glucose,Whole Blood 236 mg/dL (75-99)
[2021-03-10 23:57] LABS: Glucose,Whole Blood 263 mg/dL (75-99)
[2021-03-10] MEDS: POTASSIUM CHLORIDE ER 20 MEQ TAB.ER PO SCH (23:57)
[2021-03-11] MEDS ORDERED: POTASSIUM CHLORIDE 10 MEQ in WATER FOR INJECTION 1 100ML.BAG IVPB SCH
[2021-03-11] MEDS: POTASSIUM CHLORIDE ER 20 MEQ TAB.ER PO SCH ×2 (01:21→02:05)
[2021-03-11 02:22] LABS: Glucose,Whole Blood 233 mg/dL (75-99)
[2021-03-11 03:37] LABS: Anisocytosis Slight; Basophils % (A) 0 %; Eosinophils # (A) 0.1 k/uL (0-0.7); Eosinophils % (A) 1 %; HCT 41.7 % (39.0-53.0); HGB 12.9 gm/dL (13.0-17.5); Hypochromasia Slight; Lymphocytes # (A) 1.6 k/uL (1.0-4.8); Lymphocytes % (A) 15 %; MCH 27.5 pg (25.0-35.0); MCHC 30.9 g/dL (31.0-37.0); Monocytes # (A) 0.6 k/uL (0-1.0); Monocytes % (A) 6 %; Neutrophils # (A) 7.7 k/uL (1.3-7.7); Neutrophils % (A) 76 %; Platelet Count 287 k/uL (150-450); RBC 4.68 m/uL (4.30-5.90); WBC 10.1 k/uL (3.8-10.6)
[2021-03-11 03:46] LABS: ALT 21 U/L (4-49); AST 33 U/L (17-59); African American GFR (CKD) >90 (>60 ml/min/1.73 sqM); Albumin 3.2 g/dL (3.5-5.0); Alkaline Phosphatase 123 U/L (38-126); Anion Gap 8 mmol/L; Blood Urea Nitrogen 18 mg/dL (9-20); Calcium 8.7 mg/dL (8.4-10.2); Carbon Dioxide 25 mmol/L (22-30); Chloride 102 mmol/L (98-107); Glucose 209 mg/dL (74-99); Non-African American GFR(CKD) 87 (>60 ml/min/1.73 sqM); Potassium 3.7 mmol/L (3.5-5.1); Sodium 135 mmol/L (137-145); Total Bilirubin 0.6 mg/dL (0.2-1.3)
[2021-03-11 03:54] LABS: Glucose,Whole Blood 197 mg/dL (75-99)
[2021-03-11] MEDS: SODIUM CHLORIDE 0.9% 1,000 ML IV SCH (03:59)
[2021-03-11] MEDS: INSULIN REGULAR 100 UNIT in SODIUM CHLORIDE 0.9% 100 ML IV SCH (03:59)
[2021-03-11] MEDS: D5-0.45% NACL WITH KCL 20MEQ/L 1,000 ML IV SCH (04:02)
[2021-03-11] MEDS: DILTIAZEM 125 MG in SODIUM CHLORIDE 0.9% 100 ML IV SCH (04:10)
[2021-03-11 05:54] LABS: Glucose,Whole Blood 218 mg/dL (75-99)
[2021-03-11] MEDS: INSULIN ASPART (NovoLOG) 100 UNIT/ML VIAL SQ SCH ×5 (06:32→21:44)
[2021-03-11] MEDS ORDERED: AMIODARONE 200 MG TAB PO SCH (09:00)
[2021-03-11] MEDS: METOPROLOL TARTRATE 50 MG TAB PO SCH ×2 (09:14→21:43)
[2021-03-11] MEDS: metFORMIN 500 MG TAB PO SCH ×2 (09:14→21:42)
[2021-03-11] MEDS: oxyCODONE ER 20 MG TAB.ER.12H PO SCH ×2 (09:14→21:43)
[2021-03-11] MEDS: AMIODARONE 200 MG TAB PO SCH ×2 (09:14→21:42)
[2021-03-11] MEDS: ASPIRIN 81 MG PO SCH (09:14)
[2021-03-11] MEDS: APIXABAN 5 MG TAB PO SCH ×2 (09:14→21:42)
[2021-03-11] MEDS: INSULIN DETEMIR (LEVEMIR) 100 UNIT/ML SYR SQ SCH ×2 (10:05→21:44)
--- NOTE | 2021-03-11 11:34 | P.CRDCN ---
History of Present Illness History of present illness: This is a 65-year-old male with a past medical history significant for type 2 diabetes, hypertension, hyperlipidemia, paroxysmal atrial fibrillation on Eliquis, congestive heart failure, ischemic cardiac myopathy, and coronary artery disease with previous PCI to the RCA in 2007 and 2014, former nicotine dependence, marijuana use. Patient also underwent CABG x 3 in July 2019. Patient follows in the office with Dr. Hua. We have been asked to see the patient in consultation for Milly concepcion with RVR. Patient presented to the ER with nausea and vomiting. He states it started a few days ago and every time he took a deep breath he felt nauseous and had emesis. He denies eating anything a bnormal/out of the ordinary. He denies any palpitations, chest pain, lightheadedness, dizziness, syncope or near syncope. He denies any shortness of breath. He denies symptoms of orthopnea or PND. On admission, patient found to be hypokalemic with a potassium 2.1 Mag 1.5 and blood sugars in the 300s. His electrolytes have been replaced, given IV fluids. His nausea and vomiting have resolved DIAGNOSTICS EKG on admission revealed sinus tachycardia HR 116, Left axis deviation, nonspecific ST-T wave abnormalities. Repeat EKGs revealed atrial tachycardia, HR 160s, left axis deviation, nonspeci fic ST-T wave abnormalities. Chest xray no acute cardiopulmonary process. Telemetry reviewed, patient in atrial fibrillation HR 60s-low 100s Laboratory data: WBC 10.1, hemoglobin 12.9, platelets 287, sodium 135, potassium 3.7, BUN 18, serum creatinine 0.9, magnesium 1.7, TSH within normal limits, u rine tox +opiates and marijuana Current home cardiac medications include amiodarone 200mg daily, metoprolol tartrate 50mg BID , Lipitor 40 mg daily, aspirin 81 mg daily, and Eliquis 5 mg twice a day Most recent echocardiogram obtained in 09/21/2020 revealed ejection fraction 45- 50%, basal inferior, mid inferior, apical septum LV wall akinesis, mild mitral regurgitation, and mild tricuspid regurgitation Cardiac catheterization history: July 2019 revealing triple vessel disease with total occlusion of RCA, critical lesion in the mid LAD, and also first diagonal and OM branch REVIEW OF SYSTEMS: At the time of my exam: CONSTITUTIONAL: Denies fever or chills. CARDIOVASCULAR: Denies chest pain, shortness of breath, orthopnea, PND or palpitations. RESPIRATORY: Denies cough. GASTROINTESTINAL: +nausea and vomiting which has resolved. Denies abdominal pain, diarrhea, constipation MUSCULOSKELETAL: Denies myalgias. NEUROLOGIC: Denies numbness, tingling, headacbe or weakness. ENDOCRINE: Denies fatigue, weight change, polydipsia or polyurina. GENITOURINARY: Denies burning, hematuria or urgency with micturation. HEMATOLOGIC: +history of anemia Denies bleeding. PHYSICAL EXAM: VITAL SIGNS: Reviewed. GENERAL: Well-developed in no acute distress-on mechanical ventilation. HEENT: Head is normocephalic. Pupils are equal, round. Sclerae anicteric. Mucous membranes of the mouth are moist. Neck supple. No JVD or thyromegaly LUNGS: Respirations even and unlabored. Lungs diminished bilaterally. HEART: Irregular tachycardic rate and rhythm. S1 and S2 heard. ABDOMEN: Soft. Nondistended. Nontender. EXTREMITIES: Normal range of motion. No clubbing or cyanosis. Peripheral pulses intact. No edema ASSESSMENT: Paroxysmal atrial fibrillation with RVR CHADS2 score 4, on Eliquis , likely went into a fib with RVR due to hypokalemia Severe hypokalemia Hypomagnesemia Nausea and vomiting Chronic diastolic heart failure, ejection fraction for 45-50% History of Hypertension, hypotensive on admission Hyperlipidemia Coronary artery disease with previous PCI to RCA and CABG 3 in July 2019 Acute kidney injury, creatinine 1.34 on admission Marijuana use Type 2 Diabetes PLAN: -Repeat echocardiogram -Stop IV Cardizem drip -Increase amiodarone to 200mg BID -Continue Eliquis, statin, metoprolol tartrate 50mg BID -Patient's lisinopril on hold due to hypotension, will monitor BPs and restart -Further recommendations pending patient course Nurse practitioner note has been reviewed by physician. Signing provider agrees with the documented findings, assessment, and plan of care. Past Medical History Past Medical History: Atrial Fibrillation, Coronary Artery Disease (CAD), Chest Pain / Angina, Diabetes Mellitus, GERD/Reflux, Hyperlipidemia, Hypertension, Myocardial Infarction (IA) Additional Past Medical History / Comment(s): Pt had CABG 07/2019 and had post op Afib/UTI with pseudomonas aeruginosa, ischemic cardiomyopathy, IDDM type II, past R scrotal abscess with sepsis, chronic lower back pain and bilateral leg pain, Last Myocardial Infarction Date:: 03/20/15 History of Any Multi-Drug Resistant Organisms: None Reported Past Surgical History: Back Surgery, Coronary Bypass/CABG, Heart Catheterization, Heart Catheterization With Stent, Orthopedic Surgery Additional Past Surgical History / Comment(s): 08/23/2019 CABG 3 vessels, PCI with total of 5 stents, L ankle ligament repair, R leg ORIF, low back surgery, colonoscopy. Past Anesthesia/Blood Transfusion Reactions: No Reported Reaction Additional Past Anesthesia/Blood Transfusion Reaction / Comment(s): Pt has received blood in past without reaction. Date of Last Stent Placement:: 02/2015 Past Psychological History: No Psychological Hx Reported Additional Psychological History / Comment(s): Pt resides with his sister. He has a cane to ambulate and a glucometer. He has home care thru [facility]. He can not currently drive d/t recent CABG, his evangelina takes him to app. Smoking Status: Former smoker Past Alcohol Use History: None Reported Additional Past Alcohol Use History / Comment(s): Pt started smoking in 1968 and quit in 2014. He was a 2 ppd smoker. Pt states he was a heavy drinker but quit in 2001. Past Drug Use History: Marijuana Additional Drug Use History / Comment(s): Occasional marijuana.-INSTRUCTED TO REFRAIN FROM USE FOR AT LEAST 24 HOURS PRIOR TO PROCEDURE - Past Family History Sister(s) Family Medical History: Coronary Artery Disease (CAD), Hypertension Father Family Medical History: Coronary Artery Disease (CAD), Diabetes Mellitus, Deep Vein Thrombosis (DVT), Hypertension Additional Family Medical History / Comment(s): Father at age 58yrs. He of blood clot from leg injury that went to his heart. Medications and Allergies Home Medications Medication Instructions Recorded Confirmed Type DULoxetine HCL [Cymbalta] 60 mg PO BID 11/16/19 03/10/21 History Semaglutide [Ozempic] 0.5 mg SQ Q7D 11/16/19 03/10/21 History glipiZIDE [Glucotrol] 5 mg PO AC-BID 11/16/19 03/10/21 History oxyCODONE HCL [oxyCODONE HCL (IR)] 15 mg PO Q8H 03/01/20 03/10/21 History Aspirin 81 mg PO DAILY #30 chew 04/10/20 03/10/21 Rx Apixaban [Eliquis] 5 mg PO BID #60 tab 10/02/20 03/10/21 Rx Metoprolol Tartrate [Lopressor] 50 mg PO BID #60 tab 10/02/20 03/10/21 Rx Pantoprazole [Protonix] 40 mg PO AC-BRKFST #30 tablet.dr 10/02/20 03/10/21 Rx Amiodarone [Cordarone] 200 mg PO DAILY 01/31/21 03/10/21 History Atorvastatin [Lipitor] 40 mg PO HS 01/31/21 03/10/21 History Insulin Aspart [NovoLOG Flexpen] See Protocol SQ AC-TID 01/31/21 03/10/21 History Insulin Glargine,Hum.rec.anlog 25 unit SQ DAILY 01/31/21 03/10/21 History [Lantus Solostar Pen] metFORMIN HCL [Glucophage] 1,000 mg PO BID 01/31/21 03/10/21 History oxyCODONE ER [OxyCONTIN] 80 mg PO Q12H 01/31/21 03/10/21 History rOPINIRole HCL [Requip] 1 mg PO BID 01/31/21 03/10/21 History Gabapentin [Neurontin] 300 mg PO BID 02/06/21 03/10/21 History lisinopriL [Prinivil] 10 mg PO DAILY #1 tablet 02/11/21 03/10/21 Rx Allergies Allergy/AdvReac Type Severity Reaction Status Date / Time No Known Allergies Allergy Verified 03/10/21 14:31 Physical Exam Vitals: Vital Signs Temp Pulse Pulse Resp BP BP Pulse Ox 03/11/21 03:35 98.3 F 65 18 128/80 96 03/11/21 02:00 66 18 03/11/21 00:00 98.3 F 66 18 134/76 100 03/10/21 22:08 98.5 F 90 18 136/77 98 03/10/21 22:00 90 18 03/10/21 21:30 128 H 16 95/72 98 03/10/21 21:15 101 H 16 132/76 99 03/10/21 21:00 120 H 16 139/79 98 03/10/21 20:45 123 H 16 129/86 99 03/10/21 20:30 123 H 16 122/88 100 03/10/21 20:15 133 H 16 119/103 100 03/10/21 20:00 163 H 16 83/64 100 03/10/21 19:45 133 H 16 112/60 100 03/10/21 19:30 105 H 18 121/67 100 03/10/21 19:15 126 H 18 144/85 100 03/10/21 19:00 149 H 18 139/112 100 03/10/21 18:45 109 H 18 116/95 100 03/10/21 18:30 152 H 18 99/78 100 03/10/21 18:15 142 H 18 116/81 100 03/10/21 18:00 137 H 18 139/109 100 03/10/21 17:45 112 H 18 145/84 100 03/10/21 17:30 123 H 18 86/67 100 03/10/21 17:15 105 H 18 109/91 99 03/10/21 17:00 117 H 19 117/89 100 03/10/21 16:45 101 H 19 98/60 100 03/10/21 16:30 124 H 18 104/71 100 03/10/21 16:15 135 H 19 115/82 99 03/10/21 16:00 120 H 20 112/67 99 03/10/21 15:45 128 H 18 89/60 98 03/10/21 15:30 110 H 16 88/60 91 L 03/10/21 15:15 125 H 20 90/54 91 L 03/10/21 15:00 102 H 20 117/72 91 L 03/10/21 14:15 138 H 18 181/105 95 03/10/21 13:45 114 H 20 195/120 97 03/10/21 13:15 99 16 187/100 97 03/10/21 12:45 109 H 16 156/93 100 03/10/21 12:29 97.9 F 117 H 20 162/96 100 Intake and Output 03/10/21 03/11/21 03/11/21 22:59 06:59 14:59 Intake Total 58.384 71.667 Output Total 375 Balance -316.616 71.667 Intake: IV 10 0.9 10 Intake, IV Titration 48.384 71.667 Amount Diltiazem 125 mg In 31.417 71.667 Sodium Chloride 0.9% 100 ml @ 5 MG/HR 5 mls/hr IV .Q24H [facility] Rx#:[id number] Insulin Regular 100 unit 16.967 In Sodium Chloride 0.9% 100 ml @ 0.1 UNITS/KG/HR 8.017 mls/hr IV .[id number] [facility] Rx#:[id number] Output: Urine 375 Other: Voiding Method Urinal Urinal # Voids 1 0 Weight 79.379 kg 76.5 kg Results 03/11/21 03:18 03/11/21 03:18 Cardiac Enzymes 03/10/21 03/10/21 03/10/21 Range/Units 12:37 12:37 19:34 AST 34 29 (17-59) U/L Troponin I 0.031 (0.000-0.034) ng/mL 03/10/21 03/11/21 Range/Units 21:58 03:18 AST 31 33 (17-59) U/L Troponin I (0.000-0.034) ng/mL Coagulation 03/10/21 Range/Units 12:37 PT 10.1 (9.0-12.0) sec APTT 26.0 (22.0-30.0) sec CBC 03/10/21 03/11/21 Range/Units 12:37 03:18 WBC 13.0 H 10.1 (3.8-10.6) k/uL RBC 5.16 4.68 (4.30-5.90) m/uL Hgb 14.5 12.9 L (13.0-17.5) gm/dL Hct 45.3 41.7 (39.0-53.0) % Plt Count 323 287 (150-450) k/uL Comprehensive Metabolic Panel 03/10/21 03/10/21 03/10/21 Range/Units 12:37 15:45 19:34 Sodium 138 140 140 (137-145) mmol/L Potassium 3.3 L 2.1 L* 2.9 L (3.5-5.1) mmol/L Chloride 98 103 100 (98-107) mmol/L Carbon Dioxide 23 23 25 (22-30) mmol/L BUN 18 16 18 (9-20) mg/dL Creatinine 0.87 0.88 1.01 (0.66-1.25) mg/dL Glucose 288 H 322 H 211 H (74-99) mg/dL Calcium 9.3 8.7 (8.4-10.2) mg/dL AST 34 29 (17-59) U/L ALT 28 24 (4-49) U/L Alkaline Phosphatase 172 H 152 H (38-126) U/L Total Protein 7.4 6.6 (6.3-8.2) g/dL Albumin 4.1 3.6 (3.5-5.0) g/dL 03/10/21 03/11/21 Range/Units 21:58 03:18 Sodium 140 135 L (137-145) mmol/L Potassium 3.0 L 3.7 (3.5-5.1) mmol/L Chloride 99 102 (98-107) mmol/L Carbon Dioxide 26 25 (22-30) mmol/L BUN 17 18 (9-20) mg/dL Creatinine 1.01 0.93 (0.66-1.25) mg/dL Glucose 220 H 209 H (74-99) mg/dL Calcium 9.1 8.7 (8.4-10.2) mg/dL AST 31 33 (17-59) U/L ALT 26 21 (4-49) U/L Alkaline Phosphatase 160 H 123 (38-126) U/L Total Protein 7.2 6.0 L (6.3-8.2) g/dL Albumin 4.0 3.2 L (3.5-5.0) g/dL Current Medications Generic Name Dose Route Start Last Admin Trade Name Freq PRN Reason Stop Dose Admin Amiodarone HCl 200 mg 03/11/21 09:00 Amiodarone 200 Mg Tab PO DAILY [facility] Apixaban 5 mg 03/10/21 21:00 03/10/21 22:21 Apixaban 5 Mg Tab PO 5 mg BID [facility] Administration Protocol Aspirin 81 mg 03/11/21 09:00 Aspirin 81 Mg PO DAILY [facility] Atorvastatin Calcium 40 mg 03/10/21 21:00 03/10/21 22:21 Atorvastatin 40 Mg Tab PO 40 mg HS [facility] Administration Sodium Chloride 1,000 mls @ 500 mls/hr 03/10/21 14:21 03/10/21 15:13 Saline 0.9% IV Not Given .Q2H ONE Diltiazem HCl 125 mg/ Sodium 125 mls @ 5 mls/hr 03/10/21 14:30 03/11/21 04:10 Chloride IV 10 mg/hr .Q24H [facility] 10 mls/hr Administration 5 MG/HR Insulin Aspart 0 unit 03/11/21 07:30 03/11/21 06:32 Insulin Aspart (Novolog) 100 Unit/Ml Vial SQ 3 unit ACHS [facility] Administration Protocol Insulin Detemir 25 unit 03/11/21 09:00 Insulin Detemir (Levemir) 100 Unit/Ml Syr SQ DAILY [facility] Metformin HCl 1,000 mg 03/11/21 09:00 Metformin 500 Mg Tab PO BID [facility] Metoprolol Tartrate 50 mg 03/10/21 21:00 03/10/21 22:21 Metoprolol Tartrate 50 Mg Tab PO 50 mg BID [facility] Administration Miscellaneous Information 1 each 03/10/21 17:20 Potassium Replacement Protocol 1 Each Misc MISCELLANE DAILY PRN Per Protocol Protocol Oxycodone HCl 15 mg 03/10/21 14:45 03/11/21 02:31 Oxycodone Hcl 5 Mg Tab PO 15 mg Q8H PRN Administration Breakthrough pain Oxycodone HCl 40 mg 03/10/21 21:00 03/10/21 18:55 Oxycodone Er 20 Mg Tab.Er.12h PO 40 mg Q12HR [facility] Administration Intake and Output 03/10/21 03/11/21 03/11/21 22:59 06:59 14:59 Intake Total 58.384 71.667 Output Total 375 Balance -316.616 71.667 Intake: IV 10 0.9 10 Intake, IV Titration 48.384 71.667 Amount Diltiazem 125 mg In 31.417 71.667 Sodium Chloride 0.9% 100 ml @ 5 MG/HR 5 mls/hr IV .Q24H [facility] Rx#:[id number] Insulin Regular 100 unit 16.967 In Sodium Chloride 0.9% 100 ml @ 0.1 UNITS/KG/HR 8.017 mls/hr IV .[id number] [facility] Rx#:[id number] Output: Urine 375 Other: Voiding Method Urinal Urinal # Voids 1 0 Weight 79.379 kg 76.5 kg 03/11/21 03:18 03/11/21 03:18
[2021-03-11 11:51] LABS: Glucose,Whole Blood 313 mg/dL (75-99)
[2021-03-11 11:53] VITALS: BMI 26.4
--- NOTE | 2021-03-11 12:00 | ECHOF ---
Referral Reason:afib MEASUREMENTS -------- HEIGHT: 170.2 cm WEIGHT: 76.2 kg BP: 128/80 RVIDd: 2.4 cm (< 3.3) IVSd: 0.9 cm (0.6 - 1.1) LVIDd: 5.0 cm (3.9 - 5.3) LVPWd: 1.3 cm (0.6 - 1.1) IVSs: 1.7 cm LVIDs: 2.9 cm LVPWs: 1.8 cm LAESV Index (A-L): 29.26 ml/m Ao Diam: 3.4 cm (2.0 - 3.7) AV Cusp: 2.0 cm (1.5 - 2.6) LA Diam: 3.5 cm (2.7 - 3.8) RAP: 5.00 mmHg RVSP: 9.06 mmHg FINDINGS -------- Atrial fibrillation. This was a technically difficult study with suboptimal views. The left ventricular size is normal. There is mild concentric left ventricular hypertrophy. Overa ll left ventricular systolic function is mild-moderately impaired with, an EF between 40 - 45 %. Ba william inferoseptal LV wall motion is hypokinetic. Mid inferoseptal LV wall motion is hypokinetic. Basal inferolateral hypokinesis. The right ventricle is normal in size. LA is midly dilated 29-33ml/m2. The right atrium was not well visualized. Lumason used The aortic valve is trileaflet and appears structurally normal. The mitral valve is normal. There is trace mitral regurgitation. The tricuspid valve appears structurally normal. Trace tricuspid regurgitation present. Right elizabeth tricular systolic pressure is normal at < 35 mmHg. The pulmonic valve was not well visualized. The aortic root size is normal. IVC Not well visulized. There is no pericardial effusion. CONCLUSIONS -------- 1. The left ventricular size is normal. 2. There is mild concentric left ventricular hypertrophy. 3. Overall left ventricular systolic function is mild-moderately impaired with, an EF between 40 - 45 %. 4. Basal inferoseptal LV wall motion is hypokinetic. 5. Mid inferoseptal LV wall motion is hypokinetic. 6. Basal inferolateral hypokinesis. 7. There is trace mitral regurgitation. 8. Trace tricuspid regurgitation present. DAY CARE HOME MOTHER: Saida Tim RDCS
[2021-03-11] MEDS ORDERED: Magnesium Replacement Protocol 1 EACH MISC MISCELLANE PRN (15:56)
--- NOTE | 2021-03-11 16:01 | P.PN ---
Subjective Progress Note Date: 03/11/21 This is a 65-year-old gentleman admitted with atrial fibrillation with RVR, diabetes mellitus type 2, uncontrolled with possible early DKA, severe hypokalemia, significant weakness and multiple other medical issues. Maintained on Cardizem drip, repeat echo pending. Denies any chest pain, palpitations or shortness of breath. Maintaining O2 sats in the high 90s on room air. Denies any nausea, vomiting or abdominal pain. Blood sugars in the low 200s. Objective - Vital Signs Vital signs: Vital Signs Temp 98.0 F 03/11/21 11:05 Pulse 77 03/11/21 11:05 Resp 16 03/11/21 11:05 BP 110/68 03/11/21 11:05 Pulse Ox 99 03/11/21 11:05 Intake & Output 03/10/21 03/11/21 03/11/21 18:59 06:59 18:59 Intake Total 16.967 113.084 560 Output Total 375 Balance 16.967 -261.916 560 Weight 79.379 kg 76.5 kg 76.5 kg Intake: IV 10 0.9 10 Intake, IV Titration 16.967 103.084 Amount Diltiazem 125 mg In 103.084 Sodium Chloride 0.9% 100 ml @ 5 MG/HR 5 mls/hr IV .Q24H GABBY Rx#:[id number] Insulin Regular 100 unit 16.967 In Sodium Chloride 0.9% 100 ml @ 0.1 UNITS/KG/HR 8.017 mls/hr IV .[id number] GABBY Rx#:[id number] Oral 560 Output: Urine 375 Other: Voiding Method Urinal Urinal # Voids 0 - Exam PHYSICAL EXAM: VITAL SIGNS: [As above] GENERAL: Sitting up in bed, no acute distress HEENT: Conjunctivae normal. eyes normal. NECK: No JVD. No thyroid enlargement. No LNs CARDIOVASCULAR: S1, S2 regular. Irregular, positive systolic murmur RESPIRATION: Breath sounds diminished in the bases. No rhonchi or crackles. ABDOMEN: Soft, nontender . No guarding. no masses palpable. Positive bowel sounds LEGS: No edema. no swelling. PSYCHIATRY: Alert and oriented X3, mood and affect normal. NERVOUS SYSTEM: Cranial N 2-12 grossly normal. No focal deficits. Strength and sensation grossly intact. Skin: Warm and dry, no rash - Labs CBC & Chem 7: 03/11/21 03:18 03/11/21 03:18 Labs: Abnormal Lab Results - Last 24 Hours (Table) 03/10/21 03/10/21 03/10/21 Range/Units 12:37 12:37 12:37 WBC 13.0 H (3.8-10.6) k/uL Hgb (13.0-17.5) gm/dL MCHC (31.0-37.0) g/dL RDW 16.2 H (11.5-15.5) % Neutrophils # 11.2 H (1.3-7.7) k/uL Lymphocytes # 0.8 L (1.0-4.8) k/uL Sodium (137-145) mmol/L Potassium 3.3 L (3.5-5.1) mmol/L Glucose 288 H (74-99) mg/dL POC Glucose (mg/dL) (75-99) mg/dL Plasma Lactic Acid Chinedu (0.7-2.0) mmol/L Ionized Calcium Kristin 4.2 L (4.5-5.3) mg/dL Phosphorus (2.5-4.5) mg/dL Magnesium 1.5 L (1.6-2.3) mg/dL Alkaline Phosphatase 172 H (38-126) U/L Total Protein (6.3-8.2) g/dL Albumin (3.5-5.0) g/dL Amylase 118 H (30-110) U/L Urine Protein 1+ H (Negative) Urine Glucose (UA) 3+ H (Negative) Urine Ketones 1+ H (Negative) Urine Blood Trace H (Negative) Urine RBC 6 H (0-5) /hpf Ur Oxycodone Screen (NotDetected) U Marijuana (THC) Screen (NotDetected) 03/10/21 03/10/21 03/10/21 Range/Units 12:37 12:37 14:51 WBC (3.8-10.6) k/uL Hgb (13.0-17.5) gm/dL MCHC (31.0-37.0) g/dL RDW (11.5-15.5) % Neutrophils # (1.3-7.7) k/uL Lymphocytes # (1.0-4.8) k/uL Sodium (137-145) mmol/L Potassium (3.5-5.1) mmol/L Glucose (74-99) mg/dL POC Glucose (mg/dL) 298 H (75-99) mg/dL Plasma Lactic Acid Chinedu 3.3 H* (0.7-2.0) mmol/L Ionized Calcium Kristin (4.5-5.3) mg/dL Phosphorus (2.5-4.5) mg/dL Magnesium (1.6-2.3) mg/dL Alkaline Phosphatase (38-126) U/L Total Protein (6.3-8.2) g/dL Albumin (3.5-5.0) g/dL Amylase (30-110) U/L Urine Protein (Negative) Urine Glucose (UA) (Negative) Urine Ketones (Negative) Urine Blood (Negative) Urine RBC (0-5) /hpf Ur Oxycodone Screen Detected H (NotDetected) U Marijuana (THC) Screen Detected H (NotDetected) 03/10/21 03/10/21 03/10/21 Range/Units 15:45 15:45 16:28 WBC (3.8-10.6) k/uL Hgb (13.0-17.5) gm/dL MCHC (31.0-37.0) g/dL RDW (11.5-15.5) % Neutrophils # (1.3-7.7) k/uL Lymphocytes # (1.0-4.8) k/uL Sodium (137-145) mmol/L Potassium 2.1 L* (3.5-5.1) mmol/L Glucose 322 H (74-99) mg/dL POC Glucose (mg/dL) 310 H (75-99) mg/dL Plasma Lactic Acid Chinedu (0.7-2.0) mmol/L Ionized Calcium Kristin (4.5-5.3) mg/dL Phosphorus 2.4 L (2.5-4.5) mg/dL Magnesium (1.6-2.3) mg/dL Alkaline Phosphatase (38-126) U/L Total Protein (6.3-8.2) g/dL Albumin (3.5-5.0) g/dL Amylase (30-110) U/L Urine Protein (Negative) Urine Glucose (UA) (Negative) Urine Ketones (Negative) Urine Blood (Negative) Urine RBC (0-5) /hpf Ur Oxycodone Screen (NotDetected) U Marijuana (THC) Screen (NotDetected) 03/10/21 03/10/21 03/10/21 Range/Units 19:34 21:58 22:03 WBC (3.8-10.6) k/uL Hgb (13.0-17.5) gm/dL MCHC (31.0-37.0) g/dL RDW (11.5-15.5) % Neutrophils # (1.3-7.7) k/uL Lymphocytes # (1.0-4.8) k/uL Sodium (137-145) mmol/L Potassium 2.9 L 3.0 L (3.5-5.1) mmol/L Glucose 211 H 220 H (74-99) mg/dL POC Glucose (mg/dL) 249 H (75-99) mg/dL Plasma Lactic Acid Chinedu (0.7-2.0) mmol/L Ionized Calcium Kristin (4.5-5.3) mg/dL Phosphorus (2.5-4.5) mg/dL Magnesium (1.6-2.3) mg/dL Alkaline Phosphatase 152 H 160 H (38-126) U/L Total Protein (6.3-8.2) g/dL Albumin (3.5-5.0) g/dL Amylase (30-110) U/L Urine Protein (Negative) Urine Glucose (UA) (Negative) Urine Ketones (Negative) Urine Blood (Negative) Urine RBC (0-5) /hpf Ur Oxycodone Screen (NotDetected) U Marijuana (THC) Screen (NotDetected) 03/10/21 03/10/21 03/11/21 Range/Units 23:15 23:56 02:21 WBC (3.8-10.6) k/uL Hgb (13.0-17.5) gm/dL MCHC (31.0-37.0) g/dL RDW (11.5-15.5) % Neutrophils # (1.3-7.7) k/uL Lymphocytes # (1.0-4.8) k/uL Sodium (137-145) mmol/L Potassium (3.5-5.1) mmol/L Glucose (74-99) mg/dL POC Glucose (mg/dL) 236 H 263 H 233 H (75-99) mg/dL Plasma Lactic Acid Chinedu (0.7-2.0) mmol/L Ionized Calcium Kristin (4.5-5.3) mg/dL Phosphorus (2.5-4.5) mg/dL Magnesium (1.6-2.3) mg/dL Alkaline Phosphatase (38-126) U/L Total Protein (6.3-8.2) g/dL Albumin (3.5-5.0) g/dL Amylase (30-110) U/L Urine Protein (Negative) Urine Glucose (UA) (Negative) Urine Ketones (Negative) Urine Blood (Negative) Urine RBC (0-5) /hpf Ur Oxycodone Screen (NotDetected) U Marijuana (THC) Screen (NotDetected) 03/11/21 03/11/21 03/11/21 Range/Units 03:18 03:18 03:52 WBC (3.8-10.6) k/uL Hgb 12.9 L (13.0-17.5) gm/dL MCHC 30.9 L (31.0-37.0) g/dL RDW 16.0 H (11.5-15.5) % Neutrophils # (1.3-7.7) k/uL Lymphocytes # (1.0-4.8) k/uL Sodium 135 L (137-145) mmol/L Potassium (3.5-5.1) mmol/L Glucose 209 H (74-99) mg/dL POC Glucose (mg/dL) 197 H (75-99) mg/dL Plasma Lactic Acid Chinedu (0.7-2.0) mmol/L Ionized Calcium Kristin (4.5-5.3) mg/dL Phosphorus (2.5-4.5) mg/dL Magnesium (1.6-2.3) mg/dL Alkaline Phosphatase (38-126) U/L Total Protein 6.0 L (6.3-8.2) g/dL Albumin 3.2 L (3.5-5.0) g/dL Amylase (30-110) U/L Urine Protein (Negative) Urine Glucose (UA) (Negative) Urine Ketones (Negative) Urine Blood (Negative) Urine RBC (0-5) /hpf Ur Oxycodone Screen (NotDetected) U Marijuana (THC) Screen (NotDetected) 03/11/21 03/11/21 Range/Units 05:51 11:49 WBC (3.8-10.6) k/uL Hgb (13.0-17.5) gm/dL MCHC (31.0-37.0) g/dL RDW (11.5-15.5) % Neutrophils # (1.3-7.7) k/uL Lymphocytes # (1.0-4.8) k/uL Sodium (137-145) mmol/L Potassium (3.5-5.1) mmol/L Glucose (74-99) mg/dL POC Glucose (mg/dL) 218 H 313 H (75-99) mg/dL Plasma Lactic Acid Chinedu (0.7-2.0) mmol/L Ionized Calcium Kristin (4.5-5.3) mg/dL Phosphorus (2.5-4.5) mg/dL Magnesium (1.6-2.3) mg/dL Alkaline Phosphatase (38-126) U/L Total Protein (6.3-8.2) g/dL Albumin (3.5-5.0) g/dL Amylase (30-110) U/L Urine Protein (Negative) Urine Glucose (UA) (Negative) Urine Ketones (Negative) Urine Blood (Negative) Urine RBC (0-5) /hpf Ur Oxycodone Screen (NotDetected) U Marijuana (THC) Screen (NotDetected) Microbiology - Last 24 Hours (Table) 03/10/21 12:37 Urine Culture - Preliminary Urine,Clean Catch Assessment and Plan Assessment: Paroxysmal Atrial fibrillation with RVR Diabetes mellitus type 2, uncontrolled with possible early DKA, improving Severe hypokalemia, resolved Hypomagnesemia Generalized weakness with proximal myopathy Gait dysfunction CAD Gastroesophageal reflux disease Hypertension Plan: Continue current medication regime ,monitoring and symptomatic treatment. Cardiology consult in place, recommendations pending. Repeat echo pending. Hemoglobin A1c ordered, Levemir increased along with pre-meal insulin, close monitoring of Accu-Cheks. Magnesium level ordered/pending. Discharge planning in progress for tomorrow. The impression and plan of care has been dictated as directed. : I performed a history and examination of this patient, discussed the same with the dictator. I agree with the dictator's note ,documented as a scribe. Any additional findings or plans will be noted.
[2021-03-11 17:16] LABS: Glucose,Whole Blood 84 mg/dL (75-99)
[2021-03-11 20:03] LABS: Glucose,Whole Blood 122 mg/dL (75-99)
[2021-03-11] MEDS: ATORVASTATIN 40 MG TAB PO SCH (21:42)
[2021-03-12] MEDS ORDERED: VANCOMYCIN IV PER PHARMACY 1 EACH MISC MISCELLANE PRN (04:56)
[2021-03-12] MEDS ORDERED: VANCOMYCIN 1,250 MG in SODIUM CHLORIDE 0.9% 250 ML IVPB ONE (05:15)
[2021-03-12 06:19] LABS: Glucose,Whole Blood 87 mg/dL (75-99)
[2021-03-12] MEDS: INSULIN ASPART (NovoLOG) 100 UNIT/ML VIAL SQ SCH ×7 (06:43→23:17)
[2021-03-12 07:30] LABS: Magnesium 1.7 mg/dL (1.6-2.3)
[2021-03-12] MEDS: oxyCODONE ER 20 MG TAB.ER.12H PO SCH ×2 (08:44→23:18)
[2021-03-12] MEDS: ASPIRIN 81 MG PO SCH (08:45)
[2021-03-12] MEDS: AMIODARONE 200 MG TAB PO SCH ×2 (08:45→22:25)
[2021-03-12] MEDS: metFORMIN 500 MG TAB PO SCH ×2 (08:46→23:17)
[2021-03-12] MEDS: APIXABAN 5 MG TAB PO SCH ×2 (08:46→23:17)
[2021-03-12] MEDS: INSULIN DETEMIR (LEVEMIR) 100 UNIT/ML SYR SQ SCH ×2 (08:46→23:59)
[2021-03-12] MEDS ORDERED: METOPROLOL TARTRATE 25 MG TAB PO SCH (09:00)
[2021-03-12 12:00] LABS: Glucose,Whole Blood 163 mg/dL (75-99)
[2021-03-12] MEDS: METOPROLOL TARTRATE 50 MG TAB PO SCH ×2 (12:43→23:18)
--- NOTE | 2021-03-12 12:44 | P.PN ---
Subjective This is a 65-year-old male with a past medical history significant for type 2 diabetes, hypertension, hyperlipidemia, paroxysmal atrial fibrillation on Eliquis, congestive heart failure, ischemic cardiac myopathy, and coronary artery disease with previous PCI to the RCA in 2007 and 2014, former nicotine dependence, marijuana use. Patient also underwent CABG x 3 in July 2019. Patient follows in the office with Dr. Hua. We have been asked to see the patient in consultation for A. fib with RVR. Patient presented to the ER with nausea and vomiting. Patient seen and examined at bedside, no acute distress. His nausea and vomiting has resolved. He continues to be in atrial fibrillation with better controlled rates but continues to be tachycardic 100-120. He is currently on amiodarone 200mg BID, metoprolol tartrate 50mg BID, aspirin, Eliquis 5mg BID, atorvastatin 40mg daily. sCr 1.19, Mag 1.7. PHYSICAL EXAM: VITAL SIGNS: Reviewed. GENERAL: Well-developed in no acute distress-on mechanical ventilation. HEENT: Neck Supple.No JVD. LUNGS: Respirations even and unlabored. Lungs diminished bilaterally. HEART: Irregular rate and rhythm. S1 and S2 heard. ABDOMEN: Soft. Nondistended. Nontender. EXTREMITIES: Normal range of motion. No clubbing or cyanosis. Peripheral pulses intact. No edema ASSESSMENT: Paroxysmal atrial fibrillation with RVR CHADS2 score 4, on Eliquis , likely went into a fib with RVR due to hypokalemia Severe hypokalemia Hypomagnesemia Nausea and vomiting Chronic diastolic heart failure, ejection fraction for 45-50% History of Hypertension, hypotensive on admission Hyperlipidemia Coronary artery disease with previous PCI to RCA and CABG 3 in July 2019 Acute kidney injury, creatinine 1.34 on admission Marijuana use Type 2 Diabetes PLAN: -Increase metoprolol 100mg BID -Continue amiodarone to 200mg BID -Continue Eliquis, statin -Patient's lisinopril on hold due to hypotension and acute kidney injury -If patient's rates are better controlled hopefully discharge in the next 24- 48hrs. -Further recommendations pending patient course Nurse practitioner note has been reviewed by physician. Signing provider agrees with the documented findings, assessment, and plan of care. Objective - Vital Signs Vital signs: Vital Signs Temp 98.0 F 03/12/21 08:00 Pulse 107 H 03/12/21 08:00 Resp 18 03/12/21 08:00 BP 108/72 03/12/21 08:00 Pulse Ox 95 03/12/21 08:00 Intake & Output 03/11/21 03/12/21 03/12/21 18:59 06:59 18:59 Intake Total 1282 240 Balance 1282 240 Weight 76.5 kg 72 kg Intake: Oral 1282 240 Other: Voiding Method Urinal Urinal # Voids 1 - Labs CBC & Chem 7: 03/11/21 03:18 03/12/21 06:02 Labs: Abnormal Lab Results - Last 24 Hours (Table) 03/11/21 03/11/21 03/12/21 Range/Units 03:18 20:02 11:50 POC Glucose (mg/dL) 122 H 163 H (75-99) mg/dL Hemoglobin A1c 8.4 H (4.0-6.0) % Microbiology - Last 24 Hours (Table) 03/10/21 19:55 Blood Culture Gram Stain - Preliminary Blood 03/10/21 19:55 Blood Culture - Final Blood 03/10/21 12:37 Urine Culture - Preliminary Urine,Clean Catch
[2021-03-12] MEDS ORDERED: Magnesium Replacement Protocol 1 EACH MISC MISCELLANE PRN (16:47)
--- NOTE | 2021-03-12 16:56 | P.PN ---
Subjective Progress Note Date: 03/12/21 This is a 65-year-old gentleman admitted with atrial fibrillation with RVR, diabetes mellitus type 2, uncontrolled with possible early DKA, severe hypokalemia, significant weakness and multiple other medical issues. Maintained on Cardizem drip, repeat echo pending. Denies any chest pain, palpitations or shortness of breath. Maintaining O2 sats in the high 90s on room air. Denies any nausea, vomiting or abdominal pain. Blood sugars in the low 200s. 03/12/2021 denies any nausea or vomiting. Denies abdominal pain.blood cultures reporting gram-positive cocci in clusters, vancomycin initiated. Creatinine 1.19. Afebrile. Telemetry reporting atrial fibrillation with heart rates in the low teens. Beta belkis increased, continues on amiodarone. Magnesium 1.7. Anticoagulated on Eliquis. Hemoglobin A1c 8.4 .Blood sugars better controlled. Denies sweating, blurred vision. Denies chest pain, palpitations. Objective - Vital Signs Vital signs: Vital Signs Temp 98.3 F 03/12/21 12:00 Pulse 72 03/12/21 12:00 Resp 18 03/12/21 12:00 BP 127/88 03/12/21 12:00 Pulse Ox 96 03/12/21 12:00 Intake & Output 03/11/21 03/12/21 03/12/21 18:59 06:59 18:59 Intake Total 1282 360 Balance 1282 360 Weight 76.5 kg 72 kg Intake: Oral 1282 360 Other: Voiding Method Urinal Urinal # Voids 1 - Exam PHYSICAL EXAM: VITAL SIGNS: [As above] GENERAL: Alert and oriented 3, Sitting up in bed, no acute distress HEENT: Conjunctivae normal. eyes normal. NECK: No JVD. No thyroid enlargement. No LNs CARDIOVASCULAR: S1, S2 regular. Irregular, positive systolic murmur RESPIRATION: Breath sounds diminished in the bases. No rhonchi or crackles. ABDOMEN: Soft, nontender . No guarding. no masses palpable. Positive bowel sounds LEGS: No edema. no swelling. NERVOUS SYSTEM: Cranial N 2-12 grossly normal. No focal deficits. Strength and sensation grossly intact. Skin: Warm and dry, no rash Microbiology 03/10/21 12:37 Urine,Clean Catch Urine Culture - Final 03/10/21 19:55 Blood Blood Culture Gram Stain - Preliminary 03/10/21 19:55 Blood Blood Culture - Final - Labs CBC & Chem 7: 03/11/21 03:18 03/12/21 06:02 Labs: Abnormal Lab Results - Last 24 Hours (Table) 03/11/21 03/11/21 03/12/21 Range/Units 03:18 20:02 11:50 POC Glucose (mg/dL) 122 H 163 H (75-99) mg/dL Hemoglobin A1c 8.4 H (4.0-6.0) % Microbiology - Last 24 Hours (Table) 03/10/21 12:37 Urine Culture - Final Urine,Clean Catch 03/10/21 19:55 Blood Culture Gram Stain - Preliminary Blood 03/10/21 19:55 Blood Culture - Final Blood Assessment and Plan Assessment: Paroxysmal Atrial fibrillation with RVR Diabetes mellitus type 2, uncontrolled with possible early DKA, hemoglobin A1c 8.4, improving Possible acute bacteremia, blood cultures reporting gram-positive cocci in clusters, repeat blood cultures pending. Severe hypokalemia, resolved Hypomagnesemia Generalized weakness with proximal myopathy Gait dysfunction CAD Gastroesophageal reflux disease Hypertension Plan: Continue current medication regime ,monitoring and symptomatic treatment. Continue on vancomycin, close monitoring of renal function. Repeat blood cultures ordered. Infectious disease consulted. Magnesium supplementation as per replacement protocol previously ordered. The impression and plan of care has been dictated as directed. : I performed a history and examination of this patient, discussed the same with the dictator. I agree with the dictator's note ,documented as a scribe. Any additional findings or plans will be noted.
[2021-03-12 17:19] LABS: Glucose,Whole Blood 60 mg/dL (75-99)
[2021-03-12] MEDS ORDERED: VANCOMYCIN 1,250 MG in SODIUM CHLORIDE 0.9% 250 ML IVPB SCH (18:00)
[2021-03-12 19:41] LABS: Glucose,Whole Blood 103 mg/dL (75-99)
[2021-03-12] MEDS ORDERED: ONDANSETRON 4 MG/2 ML VIAL IVP PRN (20:07)
[2021-03-12 20:12] LABS: Glucose,Whole Blood 124 mg/dL (75-99)
[2021-03-12] MEDS ORDERED: ACETAMINOPHEN IV (For NPO) 1,000 MG in EMPTY BAG 1 BAG IVPB PRN (20:32)
[2021-03-12] MEDS ORDERED: hydrALAZINE HCL 20 MG/ML 1 ML VIAL IVP PRN (20:32)
[2021-03-12] MEDS ORDERED: DEXTROSE 5% IN WATER 100 ML with AMIODARONE 150 MG IV ONE (20:33)
[2021-03-12] MEDS ORDERED: METOPROLOL TARTRATE 5 MG/5 ML VIAL IVP PRN ×2 (20:33→20:34)
[2021-03-12] MEDS ORDERED: PROMETHAZINE 25 MG TAB PO PRN (20:34)
[2021-03-12] MEDS ORDERED: hydrALAZINE HCL 20 MG/ML 1 ML VIAL IVP STA (20:34)
[2021-03-12] MEDS ORDERED: AMIODARONE IN DEXTROSE,ISO-OSM 150 MG/100 ML PLAST..BAG IV ONE (20:49)
--- NOTE | 2021-03-12 22:50 | P.CONS ---
History of Present Illness - Reason for Consult Consult date: 03/12/21 bacteremia Requesting physician: Anusha Marrufo - Chief Complaint cough and shortness of breath x few days - History of Present Illness History of present illness : Patient is 65-year-old male who was brought into the hospital 2 days ago for evaluation of increasing shortness of breath and cough which has been moderate intensity at times severe bouts of coughing that led him to have an episode of vomiting patient also have a yellowish sputum no hemoptysis to did have some left lower chest pain this patient with episodes of coughing patient has had abdominal pain on no diarrhea patient on presentation to the hospital was afebrile and no fever was recorded subsequently patient did have white count of 13,000 with a left shift on admission did have a normal BUN and creatinine levels observe normal urine is negative urine testing was positive for oxycodone and marijuana jones PCR was negative patient did have blood culture drawn which came positive gram-positive cocci that has prompted infectious disease consultation patient did have a chest x-ray that was negative for acute or pulmonary disease Review of system: CONSTITUTIONAL: Positive for weakness along with the fever. EYES: No complaint. ENT: No complaint. RESPIRATORY: As per history of present illness. CARDIOVASCULAR: No complaint. GENITOURINARY: No complaint. GASTROINTESTINAL: As per history of present illness. MUSCULOSKELETAL: No complaint. INTEGUMENTARY: No complaint. PSYCHOLOGIC: No complaint. ENDOCRINE: No complaint. NEUROLOGIC: No complaint. Past medical history : Reviewed, documented below Past surgical history : Reviewed, documented below Social history: Reviewed, documented below Medications: Reviewed, as documented below EXAMINATION: Vital sigans= Reviewed and documented below GENERAL DESCRIPTION: Middle-aged male lying in bed, no distress. No tachypnea or accessory muscle of respiration use. HEENT: Shows Pallor , no scleral icterus. Oral mucous membrane is dry. NECK: Trachea central, no thyromegaly. LUNGS: Unlabored breathing. Coarse breath sounds bilaterally. No wheeze or crackle. HEART: S1, S2, regular rate and rhythm. ABDOMEN: Soft, no tenderness , guarding or rigidity EXTREMITIES: No edema of feet. SKIN: No rash, no masses palpable. NEUROLOGICAL: The patient is awake, alert, oriented x3, mood and affect normal. LABS AND RADIOLOGY: Reviewed results see below Assessment : 1-patient with a positive blood culture with gram-positive cocci which has been finalizes micrococcus species more likely skin contaminant 2 patient presented to the hospital-with significant cough yellowish sputum and some pleuritic chest pain high clinic suspicious for community-acquired pneumonia Plan: 1-blood cultures will be repeated document clearance of bacteremia 2-we will repeat a chest x-ray PA and lateral also check a procalcitonin level 3-discontinue vancomycin 4-start the patient on Rocephin doxycycline to cover for possible community- acquired pneumonia We will follow on clinical condition and cultures to further adjust medication if needed Thank you for this consultation we will follow the patient along with you Past Medical History Past Medical History: Atrial Fibrillation, Coronary Artery Disease (CAD), Chest Pain / Angina, Diabetes Mellitus, GERD/Reflux, Hyperlipidemia, Hypertension, Myocardial Infarction ([place]) Additional Past Medical History / Comment(s): Pt had CABG 07/2019 and had post op Afib/UTI with pseudomonas aeruginosa, ischemic cardiomyopathy, IDDM type II, past R scrotal abscess with sepsis, chronic lower back pain and bilateral leg pain, Last Myocardial Infarction Date:: 03/20/15 History of Any Multi-Drug Resistant Organisms: None Reported Past Surgical History: Back Surgery, Coronary Bypass/CABG, Heart Catheterization, Heart Catheterization With Stent, Orthopedic Surgery Additional Past Surgical History / Comment(s): 08/23/2019 CABG 3 vessels, PCI with total of 5 stents, L ankle ligament repair, R leg ORIF, low back surgery, colonoscopy. Past Anesthesia/Blood Transfusion Reactions: No Reported Reaction Additional Past Anesthesia/Blood Transfusion Reaction / Comm: Pt has received blood in past without reaction. Date of Last Stent Placement:: 02/2015 Past Psychological History: No Psychological Hx Reported Additional Psychological History / Comment(s): Pt resides with his sister. He has a cane to ambulate and a glucometer. He has home care thru [facility]. He cannot currently drive d/t recent CABG, his evangelina takes him to [facility]. Smoking Status: Former smoker Past Alcohol Use History: None Reported Additional Past Alcohol Use History / Comment(s): Pt started smoking in 1968 and quit in 2014. He was a 2 ppd smoker. Pt states he was a heavy drinker but quit in 2001. Past Drug Use History: Marijuana Additional Drug Use History / Comment(s): Occasional marijuana.-INSTRUCTED TO REFRAIN FROM USE FOR AT LEAST 24 HOURS PRIOR TO PROCEDURE - Past Family History Sister(s) Family Medical History: Coronary Artery Disease (CAD), Hypertension Father Family Medical History: Coronary Artery Disease (CAD), Diabetes Mellitus, Deep Vein Thrombosis (DVT), Hypertension Additional Family Medical History / Comment(s): Father at age 58yrs. He of blood clot from leg injury that went to his heart. Medications and Allergies Home Medications Medication Instructions Recorded Confirmed Type DULoxetine HCL [Cymbalta] 60 mg PO BID 11/16/19 03/10/21 History Semaglutide [Ozempic] 0.5 mg SQ Q7D 11/16/19 03/10/21 History glipiZIDE [Glucotrol] 5 mg PO AC-BID 11/16/19 03/10/21 History oxyCODONE HCL [oxyCODONE HCL (IR)] 15 mg PO Q8H 03/01/20 03/10/21 History Aspirin 81 mg PO DAILY #30 chew 04/10/20 03/10/21 Rx Apixaban [Eliquis] 5 mg PO BID #60 tab 10/02/20 03/10/21 Rx Metoprolol Tartrate [Lopressor] 50 mg PO BID #60 tab 10/02/20 03/10/21 Rx Pantoprazole [Protonix] 40 mg PO AC-BRKFST #30 tablet.dr 10/02/20 03/10/21 Rx Amiodarone [Cordarone] 200 mg PO DAILY 01/31/21 03/10/21 History Atorvastatin [Lipitor] 40 mg PO HS 01/31/21 03/10/21 History Insulin Aspart [NovoLOG Flexpen] See Protocol SQ AC-TID 01/31/21 03/10/21 History Insulin Glargine,Hum.rec.anlog 25 unit SQ DAILY 01/31/21 03/10/21 History [Lantus Solostar Pen] metFORMIN HCL [Glucophage] 1,000 mg PO BID 01/31/21 03/10/21 History oxyCODONE ER [OxyCONTIN] 80 mg PO Q12H 01/31/21 03/10/21 History rOPINIRole HCL [Requip] 1 mg PO BID 01/31/21 03/10/21 History Gabapentin [Neurontin] 300 mg PO BID 02/06/21 03/10/21 History lisinopriL [Prinivil] 10 mg PO DAILY #1 tablet 02/11/21 03/10/21 Rx Allergies Allergy/AdvReac Type Severity Reaction Status Date / Time No Known Allergies Allergy Verified 03/10/21 14:31 Physical Exam Vitals: Vital Signs Temp Pulse Resp BP Pulse Ox 03/12/21 16:00 98.1 F 122 H 16 130/96 96 03/12/21 14:00 18 03/12/21 12:00 98.3 F 72 18 127/88 96 03/12/21 08:00 98.0 F 107 H 18 108/72 95 03/12/21 04:00 98.7 F 112 H 18 132/89 99 03/12/21 02:00 110 H 03/12/21 00:00 98.9 F 112 H 17 125/84 97 Intake and Output 03/12/21 03/12/21 03/12/21 06:59 14:59 22:59 Intake Total 360 720 Balance 360 720 Intake: Oral 360 720 Other: # Voids 1 Weight 72 kg Results CBC & Chem 7: 03/11/21 03:18 03/12/21 06:02 Labs: Abnormal Lab Results - Last 24 Hours (Table) 03/11/21 03/12/21 03/12/21 Range/Units 03:18 11:50 17:16 POC Glucose (mg/dL) 163 H 60 L (75-99) mg/dL Hemoglobin A1c 8.4 H (4.0-6.0) % 03/12/21 03/12/21 Range/Units 19:39 20:10 POC Glucose (mg/dL) 103 H 124 H (75-99) mg/dL Hemoglobin A1c (4.0-6.0) % Microbiology - Last 24 Hours (Table) 03/10/21 12:37 Urine Culture - Final Urine,Clean Catch 03/10/21 19:55 Blood Culture Gram Stain - Preliminary Blood 03/10/21 19:55 Blood Culture - Final Blood
[2021-03-12] MEDS: ATORVASTATIN 40 MG TAB PO SCH (23:17)
[2021-03-12] MEDS: DOXYCYCLINE 100 MG CAP PO SCH (23:17)
[2021-03-12] MEDS: MONTELUKAST 10 MG TAB PO SCH (23:18)
[2021-03-13 05:54] LABS: Glucose,Whole Blood 47 mg/dL (75-99)
[2021-03-13 06:15] LABS: Glucose,Whole Blood 67 mg/dL (75-99)
[2021-03-13] MEDS: INSULIN ASPART (NovoLOG) 100 UNIT/ML VIAL SQ SCH ×7 (06:25→21:37)
[2021-03-13 06:31] LABS: Glucose,Whole Blood 106 mg/dL (75-99)
[2021-03-13 06:43] LABS: Basophils % (A) 0 %; Eosinophils % (A) 0 %; HCT 42.3 % (39.0-53.0); Hypochromasia Slight; Lymphocytes # (A) 1.8 k/uL (1.0-4.8); Lymphocytes % (A) 8 %; MCH 27.4 pg (25.0-35.0); MCHC 30.8 g/dL (31.0-37.0); MCV 88.8 fL (80.0-100.0); Mean Platelet Volume 7.1; Monocytes # (A) 0.9 k/uL (0-1.0); Monocytes % (A) 4 %; Neutrophils # (A) 18.8 k/uL (1.3-7.7); Neutrophils % (A) 87 %; Platelet Count 346 k/uL (150-450); RBC 4.76 m/uL (4.30-5.90); RDW 15.6 % (11.5-15.5); WBC 21.7 k/uL (3.8-10.6)
[2021-03-13 06:49] LABS: Calcium 8.7 mg/dL (8.4-10.2); Magnesium 1.6 mg/dL (1.6-2.3)
--- NOTE | 2021-03-13 07:50 | XR ---
EXAMINATION TYPE: XR chest 2V DATE OF EXAM: 03/13/2021 COMPARISON: Chest x-ray 03/10/2021 HISTORY: Pneumonia TECHNIQUE: Frontal and lateral views of the chest are obtained. FINDINGS: Findings are similar to prior exam. Patient is post median sternotomy. There are overlying artifacts. No evident pneumothorax or pleural effusion. Cardiac mediastinal silhouette is stable. No evident airspace disease. There are coronary artery calcifications. IMPRESSION: No acute cardiopulmonary process.
[2021-03-13 08:36] LABS: Glucose,Whole Blood 219 mg/dL (75-99)
[2021-03-13] MEDS: INSULIN DETEMIR (LEVEMIR) 100 UNIT/ML SYR SQ SCH ×2 (09:01→21:37)
[2021-03-13] MEDS: metFORMIN 500 MG TAB PO SCH ×2 (09:02→21:36)
[2021-03-13] MEDS: APIXABAN 5 MG TAB PO SCH ×2 (09:02→21:36)
[2021-03-13] MEDS: METOPROLOL TARTRATE 50 MG TAB PO SCH ×2 (09:02→21:35)
[2021-03-13] MEDS: oxyCODONE ER 20 MG TAB.ER.12H PO SCH ×2 (09:02→21:35)
[2021-03-13] MEDS: ASPIRIN 81 MG PO SCH (09:02)
[2021-03-13] MEDS: DOXYCYCLINE 100 MG CAP PO SCH ×2 (09:03→22:18)
[2021-03-13] MEDS: AMIODARONE 200 MG TAB PO SCH ×2 (09:03→21:37)
[2021-03-13] MEDS: guaiFENesin-DM 100-10MG/5ML 10 ML CUP PO PRN (09:11)
[2021-03-13 11:47] LABS: Glucose,Whole Blood 219 mg/dL (75-99)
--- NOTE | 2021-03-13 13:50 | P.PN ---
Subjective This is a 65-year-old male with a past medical history significant for type 2 diabetes, hypertension, hyperlipidemia, paroxysmal atrial fibrillation on Eliquis, congestive heart failure, ischemic cardiac myopathy, and coronary artery disease with previous PCI to the RCA in 2007 and 2014, former nicotine dependence, marijuana use. Patient also underwent CABG x 3 in July 2019. Patient follows in the office with Dr. Hua. We have been asked to see the patient in consultation for A. fib with RVR. Patient presented to the ER with nausea and vomiting. Patient seen and examined at bedside, no acute distress. Overnight, he had an episode of chills, fever 102.4, he had an episode of nausea and vomiting. His symptoms have now resolved. He continues to be in atrial fibrillation with controlled ventricular rates. Blood cultures were obtained with gram positive cocci. WBC increased 21.7, hemoglobin 13, platelets 346, sodium 130, potassium 4.0, BUN 22, serum creatinine 1.0 He is currently on amiodarone 200mg BID, metoprolol tartrate 50mg BID, aspirin, Eliquis 5mg BID, atorvastatin 40mg daily PHYSICAL EXAM: VITAL SIGNS: Reviewed. GENERAL: Well-developed in no acute distress-on mechanical ventilation. HEENT: Neck Supple.No JVD. LUNGS: Respirations even and unlabored. Lungs diminished bilaterally. HEART: Irregular rate and rhythm. S1 and S2 heard. ABDOMEN: Soft. Nondistended. Nontender. EXTREMITIES: Normal range of motion. No clubbing or cyanosis. Peripheral pulses intact. No edema ASSESSMENT: Paroxysmal atrial fibrillation with RVR CHADS2 score 4, on Eliquis , likely went into a fib with RVR due to hypokalemia Severe hypokalemia Hypomagnesemia Nausea and vomiting Chronic diastolic heart failure, ejection fraction for 45-50% History of Hypertension, hypotensive on admission Hyperlipidemia Coronary artery disease with previous PCI to RCA and CABG 3 in July 2019 Acute kidney injury, creatinine 1.34 on admission Marijuana use Type 2 Diabetes Fever 12 Leukocytosis PLAN: -Continue metoprolol 100mg BID -Continue amiodarone to 200mg BID -Continue Eliquis, statin -Patient's lisinopril on hold due to hypotension and acute kidney injury -Infectious disease consulted. -Further recommendations pending patient course Nurse practitioner note has been reviewed by physician. Signing provider agrees with the documented findings, assessment, and plan of care. Objective - Vital Signs Vital signs: Vital Signs Temp 98.4 F 03/13/21 11:13 Pulse 104 H 03/13/21 11:13 Resp 16 03/13/21 11:13 BP 97/55 03/13/21 11:13 Pulse Ox 95 03/13/21 11:13 Intake & Output 03/12/21 03/13/21 03/13/21 18:59 06:59 18:59 Intake Total 1080 600 118 Output Total 600 Balance 1080 600 -482 Weight 71.7 kg Intake: Intake, IV Titration 600 Amount ACETAMINOPHEN IV (For NPO 400 ) 1,000 mg In Empty Bag 1 bag @ 400 mls/hr IVPB Q6HR PRN Rx#:[id number] Dextrose 5% in Water 100 100 ml @ 618 mls/hr IV .Q10M ONE with Amiodarone 150 mg Rx#:[id number] cefTRIAXone 2 gm In 100 Sodium Chloride 0.9% 50 ml @ 100 mls/hr IVPB Q24H [facility] Rx#:[id number] Oral 1080 118 Output: Urine 600 Other: Voiding Method Urinal # Emeses 2 - Labs CBC & Chem 7: 03/13/21 06:09 03/13/21 06:09 Labs: Abnormal Lab Results - Last 24 Hours (Table) 03/12/21 03/12/21 03/12/21 Range/Units 17:16 19:39 20:10 WBC (3.8-10.6) k/uL MCHC (31.0-37.0) g/dL RDW (11.5-15.5) % Neutrophils # (1.3-7.7) k/uL BUN (9-20) mg/dL Glucose (74-99) mg/dL POC Glucose (mg/dL) 60 L 103 H 124 H (75-99) mg/dL Procalcitonin (0.02-0.09) ng/mL 03/13/21 03/13/21 03/13/21 Range/Units 05:49 06:09 06:09 WBC (3.8-10.6) k/uL MCHC (31.0-37.0) g/dL RDW (11.5-15.5) % Neutrophils # (1.3-7.7) k/uL BUN 22 H (9-20) mg/dL Glucose 65 L (74-99) mg/dL POC Glucose (mg/dL) 47 L (75-99) mg/dL Procalcitonin 3.04 H (0.02-0.09) ng/mL 03/13/21 03/13/21 03/13/21 Range/Units 06:09 06:09 06:29 WBC 21.7 H (3.8-10.6) k/uL MCHC 30.8 L (31.0-37.0) g/dL RDW 15.6 H (11.5-15.5) % Neutrophils # 18.8 H (1.3-7.7) k/uL BUN (9-20) mg/dL Glucose (74-99) mg/dL POC Glucose (mg/dL) 67 L 106 H (75-99) mg/dL Procalcitonin (0.02-0.09) ng/mL 03/13/21 03/13/21 Range/Units 08:34 11:47 WBC (3.8-10.6) k/uL MCHC (31.0-37.0) g/dL RDW (11.5-15.5) % Neutrophils # (1.3-7.7) k/uL BUN (9-20) mg/dL Glucose (74-99) mg/dL POC Glucose (mg/dL) 219 H 219 H (75-99) mg/dL Procalcitonin (0.02-0.09) ng/mL Microbiology - Last 24 Hours (Table) 03/12/21 10:53 Blood Culture - Preliminary Blood No Growth after 24 hours 03/10/21 12:37 Urine Culture - Final Urine,Clean Catch 03/10/21 19:55 Blood Culture Gram Stain - Preliminary Blood
[2021-03-13 16:41] LABS: Glucose,Whole Blood 53 mg/dL (75-99)
--- NOTE | 2021-03-13 16:49 | P.PN ---
Subjective Progress Note Date: 03/13/21 This is a 65-year-old gentleman admitted with atrial fibrillation with RVR, diabetes mellitus type 2, uncontrolled with possible early DKA, severe hypokalemia, significant weakness and multiple other medical issues. Maintained on Cardizem drip, repeat echo pending. Denies any chest pain, palpitations or shortness of breath. Maintaining O2 sats in the high 90s on room air. Denies any nausea, vomiting or abdominal pain. Blood sugars in the low 200s. 03/12/2021 denies any nausea or vomiting. Denies abdominal pain.blood cultures reporting gram-positive cocci in clusters, vancomycin initiated. Creatinine 1.19. Afebrile. Telemetry reporting atrial fibrillation with heart rates in the low teens. Beta belkis increased, continues on amiodarone. Magnesium 1.7. Anticoagulated on Eliquis. Hemoglobin A1c 8.4 .Blood sugars better controlled. Denies sweating, blurred vision. Denies chest pain, palpitations. 03/13/2021 overnight had nausea and vomiting accompanied by a fever of 102.4. Nausea and vomiting resolved, eating breakfast. afebrile this morning. Telemetry reporting controlled atrial fibrillation .Currently maintained on IV amiodarone. Blood cultures gram-positive cocci, finalized, micrococcus species- suspected contaminant. Repeat blood culture in progress for clearance of ba cteremia. Evaluated by infectious disease with antibiotics adjusted for possible community-acquired pneumonia. Loose nonproductive congested cough. Chest x-ray reporting no acute cardiopulmonary process. Objective - Vital Signs Vital signs: Vital Signs Temp 98.4 F 03/13/21 11:13 Pulse 104 H 03/13/21 11:13 Resp 16 03/13/21 11:13 BP 97/55 03/13/21 11:13 Pulse Ox 95 03/13/21 11:13 Intake & Output 03/12/21 03/13/21 03/13/21 18:59 06:59 18:59 Intake Total 1080 600 358 Output Total 600 Balance 1080 600 -242 Weight 71.7 kg Intake: Intake, IV Titration 600 Amount ACETAMINOPHEN IV (For NPO 400 ) 1,000 mg In Empty Bag 1 bag @ 400 mls/hr IVPB Q6HR PRN Rx#:[id number] Dextrose 5% in Water 100 100 ml @ 618 mls/hr IV .Q10M ONE with Amiodarone 150 mg Rx#:[id number] cefTRIAXone 2 gm In 100 Sodium Chloride 0.9% 50 ml @ 100 mls/hr IVPB Q24H [facility] Rx#:[id number] Oral 1080 358 Output: Urine 600 Other: Voiding Method Urinal # Emeses 2 - Exam PHYSICAL EXAM: VITAL SIGNS: [As above] GENERAL: Alert and oriented 3, Sitting up in bed, no acute distress HEENT: Conjunctivae normal. eyes normal. NECK: No JVD. No thyroid enlargement. No LNs CARDIOVASCULAR: S1, S2 regular. Irregular, positive systolic murmur RESPIRATION: Breath sounds diminished in the bases. No rhonchi or crackles. ABDOMEN: Soft, nontender . No guarding. no masses palpable. Positive bowel sounds LEGS: No edema. no swelling. NERVOUS SYSTEM: Cranial N 2-12 grossly normal. No focal deficits. Strength and sensation grossly intact. Skin: Warm and dry, no rash - Labs CBC & Chem 7: 03/13/21 06:09 03/13/21 06:09 Labs: Abnormal Lab Results - Last 24 Hours (Table) 03/12/21 03/12/21 03/12/21 Range/Units 17:16 19:39 20:10 WBC (3.8-10.6) k/uL MCHC (31.0-37.0) g/dL RDW (11.5-15.5) % Neutrophils # (1.3-7.7) k/uL BUN (9-20) mg/dL Glucose (74-99) mg/dL POC Glucose (mg/dL) 60 L 103 H 124 H (75-99) mg/dL Procalcitonin (0.02-0.09) ng/mL 03/13/21 03/13/21 03/13/21 Range/Units 05:49 06:09 06:09 WBC (3.8-10.6) k/uL MCHC (31.0-37.0) g/dL RDW (11.5-15.5) % Neutrophils # (1.3-7.7) k/uL BUN 22 H (9-20) mg/dL Glucose 65 L (74-99) mg/dL POC Glucose (mg/dL) 47 L (75-99) mg/dL Procalcitonin 3.04 H (0.02-0.09) ng/mL 03/13/21 03/13/21 03/13/21 Range/Units 06:09 06:09 06:29 WBC 21.7 H (3.8-10.6) k/uL MCHC 30.8 L (31.0-37.0) g/dL RDW 15.6 H (11.5-15.5) % Neutrophils # 18.8 H (1.3-7.7) k/uL BUN (9-20) mg/dL Glucose (74-99) mg/dL POC Glucose (mg/dL) 67 L 106 H (75-99) mg/dL Procalcitonin (0.02-0.09) ng/mL 03/13/21 03/13/21 Range/Units 08:34 11:47 WBC (3.8-10.6) k/uL MCHC (31.0-37.0) g/dL RDW (11.5-15.5) % Neutrophils # (1.3-7.7) k/uL BUN (9-20) mg/dL Glucose (74-99) mg/dL POC Glucose (mg/dL) 219 H 219 H (75-99) mg/dL Procalcitonin (0.02-0.09) ng/mL Microbiology - Last 24 Hours (Table) 03/10/21 19:55 Blood Culture Gram Stain - Final Blood Blood Culture - Final Micrococcus species 03/12/21 10:53 Blood Culture - Preliminary Blood No Growth after 24 hours 03/10/21 12:37 Urine Culture - Final Urine,Clean Catch Assessment and Plan Assessment: Paroxysmal Atrial fibrillation with RVR Diabetes mellitus type 2, uncontrolled with possible early DKA, hemoglobin A1c 8.4, improving Possible acute bacteremia, blood cultures reporting gram-positive cocci in clusters, repeat blood cultures pending. Severe hypokalemia, resolved Hypomagnesemia Generalized weakness with proximal myopathy Gait dysfunction CAD Gastroesophageal reflux disease Hypertension Plan: Continue current medication regime ,monitoring and symptomatic treatment. Antibiotics as per ID. Labs pending. Antiarrhythmics as per cardiology. The impression and plan of care has been dictated as directed. : I performed a history and examination of this patient, discussed the same with the dictator. I agree with the dictator's note ,documented as a scribe. Any additional findings or plans will be noted.
[2021-03-13 16:55] LABS: Glucose,Whole Blood 62 mg/dL (75-99)
[2021-03-13 17:15] LABS: Glucose,Whole Blood 63 mg/dL (75-99)
[2021-03-13 17:17] LABS: Glucose,Whole Blood 62 mg/dL (75-99)
[2021-03-13 17:31] LABS: Glucose,Whole Blood 80 mg/dL (75-99)
[2021-03-13] MEDS: MAGNESIUM SULFATE-D5W PMX 1 GM in DEXTROSE/WATER 1 100ML.BAG IVPB SCH ×2 (17:50→18:43)
[2021-03-13 20:31] LABS: Glucose,Whole Blood 192 mg/dL (75-99)
[2021-03-13] MEDS: MONTELUKAST 10 MG TAB PO SCH (21:36)
[2021-03-13] MEDS: ATORVASTATIN 40 MG TAB PO SCH (21:36)
--- NOTE | 2021-03-13 22:53 | PN ---
PROGRESS NOTE DATE OF SERVICE: 03/13/2021. REASON FOR FOLLOWUP: Fever, question of pneumonia versus abdominal source. INTERVAL HISTORY: Patient did spike another fever last night of 103 degrees. The patient is afebrile since then. The patient was slightly sleepy, lethargic today though denies any chest pain, shortness of breath. No worsening cough. No abdominal pain. No further vomiting or diarrhea. PHYSICAL EXAMINATION: Blood pressure 101/56, pulse of 102. Temperature 97.9. He is 93% on room air. General description is a middle-aged male lying in bed in no distress. Respiratory system: Unlabored breathing, decreased intensity in breath sounds, no wheeze. Heart S1, S2. Regular rate and rhythm. Abdomen soft, no tenderness. LABS: No new labs have been obtained today. Blood culture with micrococcus faecium. DIAGNOSTIC IMPRESSION AND PLAN: 1. Patient with positive blood culture with micrococcus likely skin contaminant. No need for Vancomycin. 2. Patient with a fever with initial concern for possible pneumonia. Repeat chest x- ray negative as well in this patient presented to the hospital with an episode of vomiting. We will obtain a CT of abdomen and pelvis to make sure no evidence of any abdominal source. Continue supportive care. MMODL / IJN: [id number] /
[2021-03-14] MEDS: guaiFENesin-DM 100-10MG/5ML 10 ML CUP PO PRN ×2 (00:30→23:02)
[2021-03-14 01:55] LABS: Glucose,Whole Blood 200 mg/dL (75-99)
[2021-03-14 06:11] LABS: Glucose,Whole Blood 103 mg/dL (75-99)
[2021-03-14] MEDS: INSULIN ASPART (NovoLOG) 100 UNIT/ML VIAL SQ SCH ×7 (06:11→20:46)
[2021-03-14 08:30] LABS: HCT 38.6 % (39.0-53.0); HGB 11.8 gm/dL (13.0-17.5); Hypochromasia Slight; MCH 27.4 pg (25.0-35.0); MCHC 30.6 g/dL (31.0-37.0); MCV 89.3 fL (80.0-100.0); Mean Platelet Volume 7.3; Platelet Count 320 k/uL (150-450); RBC 4.32 m/uL (4.30-5.90); RDW 15.8 % (11.5-15.5); WBC 18.7 k/uL (3.8-10.6)
[2021-03-14 08:42] LABS: Calcium 8.8 mg/dL (8.4-10.2); Potassium 4.7 mmol/L (3.5-5.1); Total Bilirubin 0.4 mg/dL (0.2-1.3)
[2021-03-14] MEDS: oxyCODONE ER 20 MG TAB.ER.12H PO SCH ×2 (08:57→20:45)
[2021-03-14] MEDS: ASPIRIN 81 MG PO SCH (08:57)
[2021-03-14] MEDS: APIXABAN 5 MG TAB PO SCH ×2 (08:57→20:45)
[2021-03-14] MEDS: DOXYCYCLINE 100 MG CAP PO SCH ×2 (08:57→20:48)
[2021-03-14] MEDS: IOPAMIDOL CONTRAST (ORAL USE) VIAL PO PRN ×2 (08:57→10:00)
[2021-03-14] MEDS: INSULIN DETEMIR (LEVEMIR) 100 UNIT/ML SYR SQ SCH ×2 (08:57→20:46)
[2021-03-14] MEDS: METOPROLOL TARTRATE 50 MG TAB PO SCH ×2 (08:57→20:45)
[2021-03-14] MEDS: AMIODARONE 200 MG TAB PO SCH ×2 (08:57→20:45)
--- NOTE | 2021-03-14 10:58 | P.PN ---
Subjective Progress Note Date: 03/14/21 This is a 65-year-old gentleman admitted with atrial fibrillation with RVR, diabetes mellitus type 2, uncontrolled with possible early DKA, severe hypokalemia, significant weakness and multiple other medical issues. Maintained on Cardizem drip, repeat echo pending. Denies any chest pain, palpitations or shortness of breath. Maintaining O2 sats in the high 90s on room air. Denies any nausea, vomiting or abdominal pain. Blood sugars in the low 200s. 03/12/2021 denies any nausea or vomiting. Denies abdominal pain.blood cultures reporting gram-positive cocci in clusters, vancomycin initiated. Creatinine 1.19. Afebrile. Telemetry reporting atrial fibrillation with heart rates in the low teens. Beta belkis increased, continues on amiodarone. Magnesium 1.7. Anticoagulated on Eliquis. Hemoglobin A1c 8.4 .Blood sugars better controlled. Denies sweating, blurred vision. Denies chest pain, palpitations. 03/13/2021 overnight had nausea and vomiting accompanied by a fever of 102.4. Nausea and vomiting resolved, eating breakfast. afebrile this morning. Telemetry reporting controlled atrial fibrillation .Currently maintained on IV amiodarone. Blood cultures gram-positive cocci, finalized, micrococcus species- suspected contaminant. Repeat blood culture in progress for clearance of ba cteremia. Evaluated by infectious disease with antibiotics adjusted for possible community-acquired pneumonia. Loose nonproductive congested cough. Chest x-ray reporting no acute cardiopulmonary process. 03/14/2021 evaluated by ID, on antibiotics adjusted to Rocephin and doxycycline. afebrile, WBC trending down to 18.7. Further workup in progress regarding patient's prior fevers, initial presentation nausea and vomiting which has subsided, with CT of abdomen and pelvis pending. Blood sugars controlled. Maintained on antiarrhythmics with heart rate controlled. Objective - Vital Signs Vital signs: Vital Signs Temp 97.8 F 03/14/21 09:08 Pulse 63 03/14/21 09:08 Resp 18 03/14/21 09:08 BP 107/63 03/14/21 09:08 Pulse Ox 97 03/14/21 09:08 Intake & Output 03/13/21 03/14/21 03/14/21 18:59 06:59 18:59 Intake Total 598 Output Total 1000 Balance -402 Weight 79 kg Intake: Oral 598 Output: Urine 1000 Other: Voiding Method Urinal Urinal # Voids 1 # Bowel Movements 1 - Exam PHYSICAL EXAM: VITAL SIGNS: [As above] GENERAL: Alert and oriented 3, Sitting up at side of bed, no acute distress HEENT: Conjunctivae normal. eyes normal. Oral mucosa moist. NECK: No JVD. No thyroid enlargement. No LNs CARDIOVASCULAR: S1, S2 regular. Irregular, positive systolic murmur RESPIRATION: Breath sounds diminished in the bases. No rhonchi or crackles. ABDOMEN: Soft, nontender . No guarding. no masses palpable. Positive bowel sounds LEGS: No edema. no swelling. NERVOUS SYSTEM: Cranial N 2-12 grossly normal. No focal deficits. Strength and sensation grossly intact. Skin: Warm and dry, no rash - Labs CBC & Chem 7: 03/14/21 07:53 03/14/21 07:53 Labs: Abnormal Lab Results - Last 24 Hours (Table) 03/13/21 03/13/21 03/13/21 Range/Units 06:09 11:47 16:39 WBC (3.8-10.6) k/uL Hgb (13.0-17.5) gm/dL Hct (39.0-53.0) % MCHC (31.0-37.0) g/dL RDW (11.5-15.5) % Sodium (137-145) mmol/L BUN (9-20) mg/dL Glucose (74-99) mg/dL POC Glucose (mg/dL) 219 H 53 L (75-99) mg/dL Total Protein (6.3-8.2) g/dL Albumin (3.5-5.0) g/dL Procalcitonin 3.04 H (0.02-0.09) ng/mL 03/13/21 03/13/21 03/13/21 Range/Units 16:54 17:14 17:16 WBC (3.8-10.6) k/uL Hgb (13.0-17.5) gm/dL Hct (39.0-53.0) % MCHC (31.0-37.0) g/dL RDW (11.5-15.5) % Sodium (137-145) mmol/L BUN (9-20) mg/dL Glucose (74-99) mg/dL POC Glucose (mg/dL) 62 L 63 L 62 L (75-99) mg/dL Total Protein (6.3-8.2) g/dL Albumin (3.5-5.0) g/dL Procalcitonin (0.02-0.09) ng/mL 03/13/21 03/14/21 03/14/21 Range/Units 20:28 01:53 06:07 WBC (3.8-10.6) k/uL Hgb (13.0-17.5) gm/dL Hct (39.0-53.0) % MCHC (31.0-37.0) g/dL RDW (11.5-15.5) % Sodium (137-145) mmol/L BUN (9-20) mg/dL Glucose (74-99) mg/dL POC Glucose (mg/dL) 192 H 200 H 103 H (75-99) mg/dL Total Protein (6.3-8.2) g/dL Albumin (3.5-5.0) g/dL Procalcitonin (0.02-0.09) ng/mL 03/14/21 03/14/21 Range/Units 07:53 07:53 WBC 18.7 H (3.8-10.6) k/uL Hgb 11.8 L (13.0-17.5) gm/dL Hct 38.6 L (39.0-53.0) % MCHC 30.6 L (31.0-37.0) g/dL RDW 15.8 H (11.5-15.5) % Sodium 135 L (137-145) mmol/L BUN 22 H (9-20) mg/dL Glucose 126 H (74-99) mg/dL POC Glucose (mg/dL) (75-99) mg/dL Total Protein 6.0 L (6.3-8.2) g/dL Albumin 3.0 L (3.5-5.0) g/dL Procalcitonin (0.02-0.09) ng/mL Microbiology - Last 24 Hours (Table) 03/10/21 19:55 Blood Culture Gram Stain - Final Blood Blood Culture - Final Micrococcus species 03/12/21 10:53 Blood Culture - Preliminary Blood No Growth after 24 hours Assessment and Plan Assessment: Paroxysmal Atrial fibrillation with RVR Diabetes mellitus type 2, uncontrolled with possible early DKA, hemoglobin A1c 8.4, improving Possible acute bacteremia, blood cultures reporting gram-positive cocci in clusters, repeat blood cultures pending. Severe hypokalemia, resolved Hypomagnesemia Generalized weakness with proximal myopathy Gait dysfunction CAD Gastroesophageal reflux disease Hypertension Plan: Continue current medication regime ,monitoring and symptomatic treatment. CT of abdomen and pelvis pending. Discharge planning in progress, potentially for tomorrow pending CT results and patient remains afebrile. The impression and plan of care has been dictated as directed. : I performed a history and examination of this patient, discussed the same with the dictator. I agree with the dictator's note ,documented as a scribe. Any additional findings or plans will be noted.
[2021-03-14 11:27] LABS: Glucose,Whole Blood 161 mg/dL (75-99)
--- NOTE | 2021-03-14 12:18 | CT ---
EXAMINATION TYPE: CT abdomen pelvis w con DATE OF EXAM: 03/14/2021 COMPARISON: CT abdomen and pelvis September 20, 2020 and older [address]s. Chest x-ray from yesterday. HISTORY: fever, vomiting CT DLP: 1659.5 mGycm, Automated Exposure Control for Dose Reduction was Utilized. CONTRAST: CT scan of the abdomen and pelvis is performed with oral and with IV Contrast, patient injected with 100 mL of Isovue 300. FINDINGS: LUNG BASES: New groundglass opacities in visualized portion of the lingula and left lower lobe in ret rospect likely present on x-ray one day earlier. Dense coronary artery calcification and/or stent in the distal RCA are demonstrated. LIVER/GB: No significant abnormality is appreciated. PANCREAS: Mild to moderate generalized atrophy. SPLEEN: No significant abnormality is seen. ADRENALS: Low dense thickening to both adrenal glands favors a benign lipid rich hyperplasia more pro minent on the left redemonstrated. This is unchanged back to 2015 CT. KIDNEYS: Simple appearing 1.4 cm thin-walled cyst medially upper to mid pole of the left kidney delay ed axial image 33 redemonstrated. BOWEL: Oral contrast extends to level of the terminal ileum. No suspicious small or large bowel dilat ation is seen. [id number] diffuse colonic fecal prominence. PROSTATE/SEMINAL VESICLES: Prostate gland normal in size. Scattered pelvic phleboliths are present. LYMPH NODES: No greater than 1cm abdominal or pelvic lymph nodes are appreciated. OSSEOUS STRUCTURES: Spine is straightened on sagittal images. There is moderate multilevel disc space narrowing. Prior laminectomy defects and spinous process resection in the mid to lower lumbar spine redemonstrated. Multilevel facet arthropathy again seen. Moderate axial joint space loss and spurring both hips. Sclerotic focus right pubic bone coronal image 46 redemonstrated favored benign. OTHER: Moderate calcified plaque of the aorta extends into branch vessels. IMPRESSION: 1. Mild to moderate diffuse colonic fecal stasis. No bowel obstruction. 2. Asymmetric Groundglass opacities and visualized portion of the lingula and left lower lobe, correl ate for covid-19 infection or other pulmonary infection in current environment. 3. No other suspicious new or acute findings seen. A Yellow level critical message alert has been initiated for Diana Pelletier via the [employer] on 03/14/2021 12:15 PM. This message alert has been sent to Diana Pelletier via the preferences provided by the clinician for the receipt of Radiology Critical Findings. Message ID [id number].
--- NOTE | 2021-03-14 12:30 | P.PN ---
Subjective This is a 65-year-old male with a past medical history significant for type 2 diabetes, hypertension, hyperlipidemia, paroxysmal atrial fibrillation on Eliquis, congestive heart failure, ischemic cardiac myopathy, and coronary artery disease with previous PCI to the RCA in 2007 and 2014, former nicotine dependence, marijuana use. Patient also underwent CABG x 3 in July 2019. Patient follows in the office with Dr. Hua. We have been asked to see the patient in consultation for A. fib with RVR. Patient presented to the ER with nausea and vomiting. Patient seen and examined at bedside, no acute distress. No further episodes of fever, chills, or nausea/vomiting. He does have a cough. His is on IV antibiotics per infectious disease. He continues to be in atrial fibrillation with controlled ventricular rates. He is currently on amiodarone 200mg BID, metoprolol tartrate 50mg BID, aspirin, Eliquis 5mg BID, atorvastatin 40mg daily CT abdomen and pelvis revealed new groundglass opacities in the lingula and left lower lobe, mild to moderate diffuse colonic fecal stasis. PHYSICAL EXAM: VITAL SIGNS: Reviewed. GENERAL: Well-developed in no acute distress HEENT: Neck Supple.No JVD. LUNGS: Respirations even and unlabored. Lungs diminished bilaterally. HEART: Irregular rate and rhythm. S1 and S2 heard. ABDOMEN: Soft. Nondistended. Nontender. EXTREMITIES: Normal range of motion. No clubbing or cyanosis. Peripheral pulses intact. No edema ASSESSMENT: Paroxysmal atrial fibrillation with RVR CHADS2 score 4, on Eliquis , likely went into a fib with RVR due to hypokalemia Severe hypokalemia Hypomagnesemia Nausea and vomiting Chronic diastolic heart failure, ejection fraction for 45-50% History of Hypertension, hypotensive on admission Hyperlipidemia Coronary artery disease with previous PCI to RCA and CABG 3 in July 2019 Acute kidney injury, creatinine 1.34 on admission Marijuana use Type 2 Diabetes Fever 12 Leukocytosis PLAN: -Continue metoprolol 100mg BID -Continue amiodarone to 200mg BID -Continue Eliquis, statin -Patient's lisinopril on hold due to hypotension and acute kidney injury -Infectious disease following -Patient is stable from cardiology perspective, we will sign off at this time. Please reach out with any further questions or concerns. Nurse practitioner note has been reviewed by physician. Signing provider agrees with the documented findings, assessment, and plan of care. Objective - Vital Signs Vital signs: Vital Signs Temp 97.8 F 03/14/21 09:08 Pulse 63 03/14/21 09:08 Resp 18 03/14/21 09:08 BP 107/63 03/14/21 09:08 Pulse Ox 97 03/14/21 09:08 Intake & Output 03/13/21 03/14/21 03/14/21 18:59 06:59 18:59 Intake Total 598 Output Total 1000 Balance -402 Weight 79 kg Intake: Oral 598 Output: Urine 1000 Other: Voiding Method Urinal Urinal # Voids 1 # Bowel Movements 1 - Labs CBC & Chem 7: 03/14/21 07:53 03/14/21 07:53 Labs: Abnormal Lab Results - Last 24 Hours (Table) 03/13/21 03/13/21 03/13/21 Range/Units 16:39 16:54 17:14 WBC (3.8-10.6) k/uL Hgb (13.0-17.5) gm/dL Hct (39.0-53.0) % MCHC (31.0-37.0) g/dL RDW (11.5-15.5) % Sodium (137-145) mmol/L BUN (9-20) mg/dL Glucose (74-99) mg/dL POC Glucose (mg/dL) 53 L 62 L 63 L (75-99) mg/dL Total Protein (6.3-8.2) g/dL Albumin (3.5-5.0) g/dL 03/13/21 03/13/21 03/14/21 Range/Units 17:16 20:28 01:53 WBC (3.8-10.6) k/uL Hgb (13.0-17.5) gm/dL Hct (39.0-53.0) % MCHC (31.0-37.0) g/dL RDW (11.5-15.5) % Sodium (137-145) mmol/L BUN (9-20) mg/dL Glucose (74-99) mg/dL POC Glucose (mg/dL) 62 L 192 H 200 H (75-99) mg/dL Total Protein (6.3-8.2) g/dL Albumin (3.5-5.0) g/dL 03/14/21 03/14/21 03/14/21 Range/Units 06:07 07:53 07:53 WBC 18.7 H (3.8-10.6) k/uL Hgb 11.8 L (13.0-17.5) gm/dL Hct 38.6 L (39.0-53.0) % MCHC 30.6 L (31.0-37.0) g/dL RDW 15.8 H (11.5-15.5) % Sodium 135 L (137-145) mmol/L BUN 22 H (9-20) mg/dL Glucose 126 H (74-99) mg/dL POC Glucose (mg/dL) 103 H (75-99) mg/dL Total Protein 6.0 L (6.3-8.2) g/dL Albumin 3.0 L (3.5-5.0) g/dL 03/14/21 Range/Units 11:25 WBC (3.8-10.6) k/uL Hgb (13.0-17.5) gm/dL Hct (39.0-53.0) % MCHC (31.0-37.0) g/dL RDW (11.5-15.5) % Sodium (137-145) mmol/L BUN (9-20) mg/dL Glucose (74-99) mg/dL POC Glucose (mg/dL) 161 H (75-99) mg/dL Total Protein (6.3-8.2) g/dL Albumin (3.5-5.0) g/dL Microbiology - Last 24 Hours (Table) 03/10/21 19:55 Blood Culture Gram Stain - Final Blood Blood Culture - Final Micrococcus species 03/12/21 10:53 Blood Culture - Preliminary Blood No Growth after 24 hours
[2021-03-14] MEDS ORDERED: DEXTROSE 50% SYRINGE 50 ML IVP ONE ×2 (14:20→15:38)
[2021-03-14 14:21] LABS: Glucose,Whole Blood 31 mg/dL (75-99)
[2021-03-14 15:45] LABS: Glucose,Whole Blood 29 mg/dL (75-99)
[2021-03-14 15:45] LABS: Glucose,Whole Blood 410 mg/dL (75-99)
[2021-03-14 16:46] LABS: Glucose,Whole Blood 142 mg/dL (75-99)
[2021-03-14 20:02] LABS: Glucose,Whole Blood 71 mg/dL (75-99)
[2021-03-14] MEDS: ATORVASTATIN 40 MG TAB PO SCH (20:44)
[2021-03-14] MEDS: MONTELUKAST 10 MG TAB PO SCH (20:45)
[2021-03-14 22:38] LABS: Glucose,Whole Blood 162 mg/dL (75-99)
--- NOTE | 2021-03-14 22:50 | PN ---
PROGRESS NOTE DATE OF SERVICE: 03/14/2021 REASON FOR FOLLOWUP: Fever, likely pneumonia. INTERVAL HISTORY: The patient is afebrile. The patient is currently breathing more comfortably. The patient denies having any chest pain. Occasional cough. No sputum. No abdominal pain. No further vomiting. PHYSICAL EXAMINATION: Blood pressure 134/87, pulse of 69, temperature 97.4. He is 97% on room air. General description is a middle-aged male lying in bed in no distress. Respiratory system: Unlabored breathing, decreased intensity of breath sounds. No wheeze. Heart S1, S2. Regular rate and rhythm. Abdomen soft, no tenderness. LABS: Hemoglobin is 11.9, white count 18.7, BUN of 22, creatinine is 1.16. CT of abdomen and pelvis did not show any intraabdominal source. DIAGNOSTIC IMPRESSION AND PLAN: Patient admitted to hospital with a fever, respiratory symptoms concerning for a pneumonia. CT of abdomen and pelvis has been negative. Slowly clinically responding to the Rocephin and doxycycline; to continue while monitoring his clinical course closely. Continue with supportive care. MMODL / IJN: [id number] /
[2021-03-15 01:58] LABS: Glucose,Whole Blood 195 mg/dL (75-99)
[2021-03-15 05:57] LABS: Glucose,Whole Blood 191 mg/dL (75-99)
[2021-03-15] MEDS: INSULIN ASPART (NovoLOG) 100 UNIT/ML VIAL SQ SCH ×7 (06:28→20:53)
[2021-03-15] MEDS: INSULIN DETEMIR (LEVEMIR) 100 UNIT/ML SYR SQ SCH ×2 (08:59→20:53)
[2021-03-15] MEDS: ASPIRIN 81 MG PO SCH (08:59)
[2021-03-15] MEDS: oxyCODONE ER 20 MG TAB.ER.12H PO SCH ×2 (08:59→20:52)
[2021-03-15] MEDS: APIXABAN 5 MG TAB PO SCH ×2 (08:59→20:52)
[2021-03-15] MEDS: METOPROLOL TARTRATE 50 MG TAB PO SCH ×2 (08:59→20:52)
[2021-03-15] MEDS: DOXYCYCLINE 100 MG CAP PO SCH ×2 (08:59→21:29)
[2021-03-15] MEDS: AMIODARONE 200 MG TAB PO SCH ×2 (08:59→20:52)
[2021-03-15] MEDS ORDERED: IPRATROPIUM-ALBUTEROL 3 ML NEB INHALATION PRN (11:10)
[2021-03-15] MEDS ORDERED: NA PHOS,M-B/NA PHOS,DI-BA 133 ML ENEMA RECTAL ONE (11:22)
--- NOTE | 2021-03-15 11:32 | P.PN ---
Subjective Progress Note Date: 03/15/21 This is a 65-year-old gentleman admitted with atrial fibrillation with RVR, diabetes mellitus type 2, uncontrolled with possible early DKA, severe hypokalemia, significant weakness and multiple other medical issues. Maintained on Cardizem drip, repeat echo pending. Denies any chest pain, palpitations or shortness of breath. Maintaining O2 sats in the high 90s on room air. Denies any nausea, vomiting or abdominal pain. Blood sugars in the low 200s. 03/12/2021 denies any nausea or vomiting. Denies abdominal pain.blood cultures reporting gram-positive cocci in clusters, vancomycin initiated. Creatinine 1.19. Afebrile. Telemetry reporting atrial fibrillation with heart rates in the low teens. Beta belkis increased, continues on amiodarone. Magnesium 1.7. Anticoagulated on Eliquis. Hemoglobin A1c 8.4 .Blood sugars better controlled. Denies sweating, blurred vision. Denies chest pain, palpitations. 03/13/2021 overnight had nausea and vomiting accompanied by a fever of 102.4. Nausea and vomiting resolved, eating breakfast. afebrile this morning. Telemetry reporting controlled atrial fibrillation .Currently maintained on IV amiodarone. Blood cultures gram-positive cocci, finalized, micrococcus species- suspected contaminant. Repeat blood culture in progress for clearance of ba cteremia. Evaluated by infectious disease with antibiotics adjusted for possible community-acquired pneumonia. Loose nonproductive congested cough. Chest x-ray reporting no acute cardiopulmonary process. 03/14/2021 evaluated by ID, on antibiotics adjusted to Rocephin and doxycycline. afebrile, WBC trending down to 18.7. Further workup in progress regarding patient's prior fevers, initial presentation nausea and vomiting which has subsided, with CT of abdomen and pelvis pending. Blood sugars controlled. Maintained on antiarrhythmics with heart rate controlled. 03/15/2021 maintained on antibiotics as per infectious disease. Afebrile. CT of abdomen and pelvis reporting mild to moderate diffuse colonic fecal stasis with no bowel obstruction, asymmetric groundglass opacities, low-density thickening both adrenal glands, wears lipid rich hyperplasia unchanged from prior 2014, simple-appearing 1.4 cm thin-walled cyst medially upper to mid pole of the left kidney. CT Rapid negative for covid, PCR pending. Positive nonproductive cough, swallows sputum. Denies chest pain, palpitations or increasing shortness of breath. Objective - Vital Signs Vital signs: Vital Signs Temp 97.9 F 03/15/21 09:03 Pulse 68 03/15/21 09:03 Resp 18 03/15/21 09:03 BP 135/74 03/15/21 09:03 Pulse Ox 97 03/15/21 09:03 Intake & Output 03/14/21 03/15/21 03/15/21 18:59 06:59 18:59 Intake Total 700 180 Output Total 800 Balance 700 -800 180 Weight 80 kg Intake: Oral 700 180 Output: Urine 800 Other: Voiding Method Urinal Urinal Urinal # Voids 2 - Exam PHYSICAL EXAM: VITAL SIGNS: [As above] GENERAL: Alert and oriented 3, Sitting up at side of bed, no acute distress HEENT: Conjunctivae normal. eyes normal. Oral mucosa moist. NECK: No JVD. No thyroid enlargement. No LNs CARDIOVASCULAR: S1, S2 regular. Irregular, positive systolic murmur RESPIRATION: Good air entry Breath sounds diminished in the bases. No rhonchi or crackles. Minimal expiratory wheeze ABDOMEN: Soft, nontender . No guarding. no masses palpable. Positive bowel sounds LEGS: No edema. no swelling. NERVOUS SYSTEM: Cranial N 2-12 grossly normal. No focal deficits. Strength and sensation grossly intact. Skin: Warm and dry, no rash - Labs CBC & Chem 7: 03/14/21 07:53 03/14/21 07:53 Labs: Abnormal Lab Results - Last 24 Hours (Table) 03/14/21 03/14/21 03/14/21 Range/Units 11:25 14:19 15:37 POC Glucose (mg/dL) 161 H 31 L 29 L (75-99) mg/dL 03/14/21 03/14/21 03/14/21 Range/Units 15:44 16:37 20:01 POC Glucose (mg/dL) 410 H 142 H 71 L (75-99) mg/dL 03/14/21 03/15/21 03/15/21 Range/Units 22:37 01:56 05:56 POC Glucose (mg/dL) 162 H 195 H 191 H (75-99) mg/dL Microbiology - Last 24 Hours (Table) 03/12/21 10:53 Blood Culture - Preliminary Blood No Growth after 48 hours Assessment and Plan Assessment: Paroxysmal Atrial fibrillation with RVR Acute COPD exacerbation Colonic fecal stasis, no bowel obstruction reported per CT Diabetes mellitus type 2, uncontrolled with possible early DKA, hemoglobin A1c 8.4, improving Possible acute bacteremia, blood cultures reporting micrococcus species, repeat blood cultures pending. Severe hypokalemia, resolved Hypomagnesemia Generalized weakness with proximal myopathy Gait dysfunction CAD Gastroesophageal reflux disease Hypertension Plan: Continue current medication regime ,monitoring and symptomatic treatment. Aggressive pulmonary toileting with incentive spirometer,Oral prednisone and nebulized bronchodilators ordered. Discharge planning in progress, and the next 24-48 hours. The impression and plan of care has been dictated as directed. : I performed a history and examination of this patient, discussed the same with the dictator. I agree with the dictator's note ,documented as a scribe. Any additional findings or plans will be noted.
[2021-03-15 11:41] LABS: Glucose,Whole Blood 135 mg/dL (75-99)
[2021-03-15] MEDS: predniSONE 20 MG TAB PO SCH (12:04)
[2021-03-15] MEDS: IPRATROPIUM-ALBUTEROL 3 ML NEB INHALATION SCH ×3 (12:35→21:46)
[2021-03-15] MEDS: LACTULOSE 20 GM/30 ML CUP PO SCH (13:32)
[2021-03-15 16:49] LABS: Glucose,Whole Blood 187 mg/dL (75-99)
[2021-03-15 20:12] LABS: Glucose,Whole Blood 283 mg/dL (75-99)
[2021-03-15] MEDS: MONTELUKAST 10 MG TAB PO SCH (20:52)
[2021-03-15] MEDS: ATORVASTATIN 40 MG TAB PO SCH (20:52)
--- NOTE | 2021-03-16 01:52 | PN ---
PROGRESS NOTE DATE OF SERVICE: 03/15/2021 REASON FOR FOLLOWUP: Fever, likely pneumonia. INTERVAL HISTORY: The patient is afebrile. The patient is breathing comfortably. The patient did have a congested cough but not bringing up any sputum. No nausea, no vomiting. No abdominal pain, no diarrhea. PHYSICAL EXAMINATION: Blood pressure 154/97, pulse of 81, temperature 99.1. He is 97% on room air. General description is a middle-aged male up in the bed in no distress. Respiratory system: Unlabored breathing, coarse breath sounds bilaterally, no wheeze. Heart S1, S2. Regular rate and rhythm. Abdomen soft, no tenderness. LABS: Blood culture with micrococcus, repeat is negative. DIAGNOSTIC IMPRESSION AND PLAN: 1. Patient with a positive blood culture for micrococcus, likely contaminant. Repeat culture negative. No need for vancomycin. 2. Patient with pneumonia, possibly community-acquired. Continue with the Rocephin and doxycycline. Continue supportive care. MMODL / IJN: [id number] /
[2021-03-16] MEDS: guaiFENesin-DM 100-10MG/5ML 10 ML CUP PO PRN (04:51)
[2021-03-16 07:33] LABS: Glucose,Whole Blood 210 mg/dL (75-99)
[2021-03-16] MEDS: oxyCODONE ER 20 MG TAB.ER.12H PO SCH ×2 (07:35→20:23)
[2021-03-16] MEDS: INSULIN ASPART (NovoLOG) 100 UNIT/ML VIAL SQ SCH ×7 (07:39→20:33)
[2021-03-16] MEDS: METOPROLOL TARTRATE 50 MG TAB PO SCH ×2 (07:39→20:24)
[2021-03-16] MEDS: APIXABAN 5 MG TAB PO SCH ×2 (07:40→20:24)
[2021-03-16] MEDS: AMIODARONE 200 MG TAB PO SCH ×2 (07:40→20:24)
[2021-03-16] MEDS: predniSONE 20 MG TAB PO SCH (07:40)
[2021-03-16] MEDS: LACTULOSE 20 GM/30 ML CUP PO SCH (07:41)
[2021-03-16] MEDS: DOXYCYCLINE 100 MG CAP PO SCH ×2 (07:41→21:42)
[2021-03-16] MEDS: ASPIRIN 81 MG PO SCH (07:41)
[2021-03-16] MEDS: INSULIN DETEMIR (LEVEMIR) 100 UNIT/ML SYR SQ SCH ×2 (07:41→20:34)
[2021-03-16] MEDS: IPRATROPIUM-ALBUTEROL 3 ML NEB INHALATION SCH ×4 (09:14→21:34)
[2021-03-16 11:32] LABS: Glucose,Whole Blood 142 mg/dL (75-99)
[2021-03-16 16:43] LABS: Glucose,Whole Blood 232 mg/dL (75-99)
--- NOTE | 2021-03-16 19:47 | PN ---
PROGRESS NOTE I am covering for Dr. Lovell. DATE OF SERVICE: 03/16/2021 This 65-year-old gentleman who was admitted with atrial fibrillation, rapid ventricular rate, diabetes mellitus, is also suspected to have some pneumonia at this time. Patient also had paroxysmal atrial fibrillation. No chest pain. No palpitations. No fever. PHYSICAL EXAMINATION: Alert and oriented x3. Pulse is 100, blood pressure 170/80, respiration 18, temperature 98.4, pulse ox 92% on room air. HEENT: Conjunctivae normal. NECK: No jugular venous distention. CARDIOVASCULAR: S1, S2 muffled. RESPIRATION: Breath sounds diminished at the bases. A few rhonchi. ABDOMEN: Soft. LEGS: No edema. No swelling. NERVOUS SYSTEM: No focal deficit. LABS: WBC 18.7. Glucose noted. ASSESSMENT: 1. Paroxysmal atrial fibrillation with rapid ventricular rate. 2. Chronic obstructive pulmonary disease, acute exacerbation, with possible acute purulent tracheobronchitis and possible pneumonia. 3. Chronic fecal stasis. 4. Diabetes mellitus, type 2. 5. Hypokalemia. 6. Hypomagnesemia. 7. Generalized weakness and gait dysfunction. 8. Gastroesophageal reflux disease. 9. Hypertension. RECOMMENDATIONS AND DISCUSSION: I recommend to continue current medications, continue with the monitoring, symptomatic treatment. Repeat labs will be ordered. PT/OT evaluation, possible ECF rehab. Dr. Lovell will follow on Thursday. MMODL / CAROLINEN: [id number] /
[2021-03-16] MEDS: MONTELUKAST 10 MG TAB PO SCH (20:24)
[2021-03-16] MEDS: ATORVASTATIN 40 MG TAB PO SCH (20:24)
[2021-03-16 20:41] LABS: Glucose,Whole Blood 342 mg/dL (75-99)
[2021-03-16 21:02] LABS: Glucose,Whole Blood 295 mg/dL (75-99)
--- NOTE | 2021-03-16 23:47 | PN ---
PROGRESS NOTE DATE OF SERVICE: 03/16/2021 REASON FOR FOLLOWUP: 1. Fever, possible pneumonia. 2. Positive blood culture likely contaminant. INTERVAL HISTORY: Patient is afebrile. The patient is breathing comfortably. The patient did have a congested cough, unable to bring up any sputum. No nausea, no vomiting. No abdominal pain. No diarrhea. PHYSICAL EXAMINATION: Blood pressure 180/100 with a pulse of 100, temperature 98, he is 95% on room air. General description is a middle-aged male lying in bed in no distress. Respiratory system: Unlabored breathing. Coarse breath sounds bilaterally. No wheeze. Heart S1, S2. Regular rate and rhythm. Abdomen soft, no tenderness. LABS: No new labs have been obtained today. DIAGNOSTIC IMPRESSION AND PLAN: 1. Patient with positive blood culture with micrococcus species contamination repeat blood culture negative. 2. Fever, likely source pneumonia. Patient is covered with Rocephin, doxycycline to continue and monitor clinical course closely. MMODL / IJN: [id number] /
[2021-03-17] MEDS: guaiFENesin-DM 100-10MG/5ML 10 ML CUP PO PRN ×2 (05:56→18:11)
[2021-03-17 07:05] LABS: Glucose,Whole Blood 81 mg/dL (75-99)
[2021-03-17] MEDS: INSULIN ASPART (NovoLOG) 100 UNIT/ML VIAL SQ SCH ×7 (07:40→20:23)
[2021-03-17] MEDS: oxyCODONE ER 20 MG TAB.ER.12H PO SCH ×2 (07:46→20:23)
[2021-03-17] MEDS: DOXYCYCLINE 100 MG CAP PO SCH ×2 (07:47→20:23)
[2021-03-17] MEDS: LACTULOSE 20 GM/30 ML CUP PO SCH (07:47)
[2021-03-17] MEDS: METOPROLOL TARTRATE 50 MG TAB PO SCH ×2 (07:47→20:22)
[2021-03-17] MEDS: AMIODARONE 200 MG TAB PO SCH ×2 (07:47→20:22)
[2021-03-17] MEDS: predniSONE 20 MG TAB PO SCH (07:47)
[2021-03-17] MEDS: APIXABAN 5 MG TAB PO SCH ×2 (07:47→20:22)
[2021-03-17] MEDS: ASPIRIN 81 MG PO SCH (07:47)
[2021-03-17] MEDS: INSULIN DETEMIR (LEVEMIR) 100 UNIT/ML SYR SQ SCH ×2 (07:48→20:24)
[2021-03-17] MEDS: IPRATROPIUM-ALBUTEROL 3 ML NEB INHALATION SCH ×4 (09:35→21:38)
[2021-03-17 11:47] LABS: Glucose,Whole Blood 308 mg/dL (75-99)
[2021-03-17 13:03] LABS: African American GFR (CKD) 90.2 (60.0-200.0); Anion Gap 17.2 mmol/L (10.00-18.00); BUN/Creat Ratio 20.29 Ratio (12.00-20.00); Blood Urea Nitrogen 20.7 mg/dL (9.0-27.0); Calcium 9.3 mg/dL (8.7-10.3); Carbon Dioxide 23.6 mmol/L (20.0-27.5); Non-African American GFR(CKD) 77.9 (60.0-200.0); Potassium 3.9 mmol/L (3.5-5.5)
[2021-03-17 14:15] LABS: Basophils % (A) 0.6 %; Eosinophils # (A) 0.06 X 10*3/uL (0.04-0.35); Eosinophils % (A) 0.4 %; HCT 40.9 % (39.6-50.0); HGB 12.2 g/dL (13.0-17.0); Lymphocytes # (A) 2.49 X 10*3/uL (0.90-5.00); Lymphocytes % (A) 14.9 %; MCH 26.3 pg (27.0-32.0); MCHC 29.8 g/dL (32.0-37.0); MCV 88.1 fL (80.0-97.0); Mean Platelet Volume 10.2 fL (9.5-12.2); Monocytes # (A) 1.57 X 10*3/uL (0.20-1.00); Monocytes % (A) 9.4 %; Neutrophils # (A) 12.14 X 10*3/uL (1.80-7.70); Neutrophils % (A) 72.5 %; Platelet Count 369 X 10*3/uL (140-440); RBC 4.64 X 10*6/uL (4.40-5.60); RDW 16.3 % (11.5-14.5); WBC 16.73 X 10*3/uL (4.50-10.00)
[2021-03-17 16:44] LABS: Glucose,Whole Blood 287 mg/dL (75-99)
--- NOTE | 2021-03-17 17:51 | PN ---
PROGRESS NOTE DATE OF SERVICE: 03/17/2021 REASON FOR FOLLOWUP: Fever, likely pneumonia. INTERVAL HISTORY: The patient is afebrile. The patient is breathing comfortably. The patient continues to have a cough; not bringing any sputum, though. No nausea, no vomiting. No abdominal pain or diarrhea. PHYSICAL EXAMINATION: Blood pressure 139/88 with a pulse of 92, temperature 98.4. He is 94% on room air. General description is a middle-aged male up in the bed in no distress. Respiratory system: Unlabored breathing, coarse breath sounds bilaterally. No wheeze. Heart S1, S2. Regular rate and rhythm. Abdomen soft, no tenderness. LABS: Hemoglobin is 12.1, white count 16.03, creatinine 1.0. Blood culture repeat has been negative. No sputum has been collected. DIAGNOSTIC IMPRESSION AND PLAN: 1. Patient with a fever, cough, likely pneumonia. On Rocephin and doxycycline. That will be continued. Transition to oral antibiotic on discharge. 2. Positive blood culture with micrococcus species, likely skin contaminant, and no need for antibiotic therapy for the same. MMODL / IJN: [id number] /
--- NOTE | 2021-03-17 18:51 | PN ---
PROGRESS NOTE DATE OF SERVICE: 03/17/2021 I am covering for Dr. Lovell. This 65-year-old gentleman with multiple medical problems and atrial ablation also was suspected to have some pneumonia. The patient also had significant cracking cough. No chest pain. No palpitations. Dr. Pelletier is following the patient. PHYSICAL EXAMINATION: Pulse is 88, blood pressure 113/88, respirations 16, temperature 98.2, pulse ox 94% on room air. HEENT: Conjunctivae normal. Oral mucosa moist. NECK: No jugular venous distention. No lymph node enlargement. CARDIOVASCULAR: S1, S2, muffled. No S3, no S4, RESPIRATORY: Diminished breath sounds at the bases. A few scattered rhonchi. ABDOMEN: Soft, nontender. LEGS: No edema, no swelling. NERVOUS SYSTEM: No focal deficits. LAB STUDIES: WBC 16.7, hemoglobin 12.2, glucose 308 and 267. ASSESSMENT: 1. Atrial fibrillation, paroxysmal with fast ventricular rate. 2. Chronic obstructive pulmonary disease exacerbation with possible acute purulent tracheobronchitis and possible pneumonia. 3. Diabetes mellitus, type 2, uncontrolled with hyperglycemia. 4. Chronic fecal stasis. 5. Hypokalemia. 6. Hypomagnesemia. 7. Generalized weakness and gait dysfunction. 8. GERD. 9. Hypertension. 10.Micrococcus from blood cultures, possibly contaminant. RECOMMENDATIONS AND DISCUSSION: Continue current medications, continue antibiotics. Continue the rest of medication. Blood cultures for micrococcus possibly contaminant per Dr. Pelletier. Continue to monitor. Guarded prognosis. Further recommendations to follow. MMODL / IJN: [id number] /
[2021-03-17 20:22] LABS: Glucose,Whole Blood 347 mg/dL (75-99)
[2021-03-17] MEDS: ATORVASTATIN 40 MG TAB PO SCH (20:22)
[2021-03-17] MEDS: MONTELUKAST 10 MG TAB PO SCH (20:23)
[2021-03-18 07:10] LABS: Glucose,Whole Blood 188 mg/dL (75-99)
[2021-03-18] MEDS: oxyCODONE ER 20 MG TAB.ER.12H PO SCH ×2 (07:13→20:21)
[2021-03-18] MEDS: DOXYCYCLINE 100 MG CAP PO SCH ×2 (07:14→20:22)
[2021-03-18] MEDS: METOPROLOL TARTRATE 50 MG TAB PO SCH ×2 (07:14→20:22)
[2021-03-18] MEDS: AMIODARONE 200 MG TAB PO SCH ×2 (07:15→20:23)
[2021-03-18] MEDS: LACTULOSE 20 GM/30 ML CUP PO SCH (07:15)
[2021-03-18] MEDS: INSULIN DETEMIR (LEVEMIR) 100 UNIT/ML SYR SQ SCH (07:15)
[2021-03-18] MEDS: APIXABAN 5 MG TAB PO SCH ×2 (07:15→20:22)
[2021-03-18] MEDS: predniSONE 20 MG TAB PO SCH (07:15)
[2021-03-18] MEDS: INSULIN ASPART (NovoLOG) 100 UNIT/ML VIAL SQ SCH ×7 (07:15→20:48)
[2021-03-18] MEDS: ASPIRIN 81 MG PO SCH (07:15)
[2021-03-18] MEDS: IPRATROPIUM-ALBUTEROL 3 ML NEB INHALATION SCH ×4 (08:14→20:31)
[2021-03-18] MEDS: guaiFENesin-DM 100-10MG/5ML 10 ML CUP PO PRN ×2 (10:27→17:00)
[2021-03-18 11:57] LABS: Glucose,Whole Blood 348 mg/dL (75-99)
--- NOTE | 2021-03-18 12:33 | P.PN ---
Subjective Progress Note Date: 03/18/21 This is a 65-year-old gentleman admitted with atrial fibrillation with RVR, diabetes mellitus type 2, uncontrolled with possible early DKA, severe hypokalemia, significant weakness and multiple other medical issues. Maintained on Cardizem drip, repeat echo pending. Denies any chest pain, palpitations or shortness of breath. Maintaining O2 sats in the high 90s on room air. Denies any nausea, vomiting or abdominal pain. Blood sugars in the low 200s. 03/12/2021 denies any nausea or vomiting. Denies abdominal pain.blood cultures reporting gram-positive cocci in clusters, vancomycin initiated. Creatinine 1.19. Afebrile. Telemetry reporting atrial fibrillation with heart rates in the low teens. Beta belkis increased, continues on amiodarone. Magnesium 1.7. Anticoagulated on Eliquis. Hemoglobin A1c 8.4 .Blood sugars better controlled. Denies sweating, blurred vision. Denies chest pain, palpitations. 03/13/2021 overnight had nausea and vomiting accompanied by a fever of 102.4. Nausea and vomiting resolved, eating breakfast. afebrile this morning. Telemetry reporting controlled atrial fibrillation .Currently maintained on IV amiodarone. Blood cultures gram-positive cocci, finalized, micrococcus species- suspected contaminant. Repeat blood culture in progress for clearance of ba cteremia. Evaluated by infectious disease with antibiotics adjusted for possible community-acquired pneumonia. Loose nonproductive congested cough. Chest x-ray reporting no acute cardiopulmonary process. 03/14/2021 evaluated by ID, on antibiotics adjusted to Rocephin and doxycycline. afebrile, WBC trending down to 18.7. Further workup in progress regarding patient's prior fevers, initial presentation nausea and vomiting which has subsided, with CT of abdomen and pelvis pending. Blood sugars controlled. Maintained on antiarrhythmics with heart rate controlled. 03/15/2021 maintained on antibiotics as per infectious disease. Afebrile. CT of abdomen and pelvis reporting mild to moderate diffuse colonic fecal stasis with no bowel obstruction, asymmetric groundglass opacities, low-density thickening both adrenal glands, wears lipid rich hyperplasia unchanged from prior 2014, simple-appearing 1.4 cm thin-walled cyst medially upper to mid pole of the left kidney. CT Rapid negative for covid, PCR pending. Positive nonproductive cough, swallows sputum. Denies chest pain, palpitations or increasing shortness of breath. 03/18/2021 significant clinical improvement. Initially had planned for discharge this patient had been maintaining O2 sats in the high 90s to 100% on room air. Minimal cough reports less shortness of breath. This morning patient requiring 2 L nasal cannula maintaining O2 sats in the low 90s. Blood cultures reporting micrococcus species, suspected skin contaminant as per IDas per ID. Continues on both doxycycline and Rocephin. Repeat blood cultures reporting no growth.Ambulating, tolerating exertion well. Blood sugars uncontrolled, elevated up into the 300s. Objective - Vital Signs Vital signs: Vital Signs Temp 97.5 F L 03/18/21 08:15 Pulse 94 03/18/21 08:27 Resp 18 03/18/21 08:45 BP 139/94 03/18/21 08:15 Pulse Ox 91 L 03/18/21 08:15 Intake & Output 03/17/21 03/18/21 03/18/21 18:59 06:59 18:59 Intake Total 250 250 Balance 250 250 Weight 80.5 kg Intake: Oral 250 250 Other: Voiding Method Toilet Toilet Urinal Urinal # Voids 2 # Bowel Movements 1 1 - Exam PHYSICAL EXAM: VITAL SIGNS: [As above] GENERAL: Alert and oriented 3, Sitting up at side of bed, no acute distress HEENT: Conjunctivae normal. eyes normal. Oral mucosa moist. NECK: No JVD. No thyroid enlargement. No LNs CARDIOVASCULAR: S1, S2 regular. Irregular, positive systolic murmur RESPIRATION: Good air entry Breath sounds CTA with diminished in the bases. No rhonchi or crackles. ABDOMEN: Soft, nontender . No guarding. no masses palpable. Positive bowel sounds LEGS: No edema. no swelling. NERVOUS SYSTEM: Cranial N 2-12 grossly normal. No focal deficits. Strength and sensation grossly intact. Skin: Warm and dry, no rash - Labs CBC & Chem 7: 03/17/21 06:40 03/17/21 06:40 Labs: Abnormal Lab Results - Last 24 Hours (Table) 03/17/21 03/17/21 03/17/21 Range/Units 06:40 06:40 16:42 WBC 16.73 H (4.50-10.00) X 10*3/uL Hgb 12.2 L (13.0-17.0) g/dL MCH 26.3 L (27.0-32.0) pg MCHC 29.8 L (32.0-37.0) g/dL RDW 16.3 H (11.5-14.5) % Immature Gran # 0.37 H (0.00-0.04) X 10*3/uL Neutrophils # 12.14 H (1.80-7.70) X 10*3/uL Monocytes # 1.57 H (0.20-1.00) X 10*3/uL BUN/Creatinine Ratio 20.29 H (12.00-20.00) Ratio POC Glucose (mg/dL) 287 H (75-99) mg/dL 03/17/21 03/18/21 03/18/21 Range/Units 20:11 07:08 11:53 WBC (4.50-10.00) X 10*3/uL Hgb (13.0-17.0) g/dL MCH (27.0-32.0) pg MCHC (32.0-37.0) g/dL RDW (11.5-14.5) % Immature Gran # (0.00-0.04) X 10*3/uL Neutrophils # (1.80-7.70) X 10*3/uL Monocytes # (0.20-1.00) X 10*3/uL BUN/Creatinine Ratio (12.00-20.00) Ratio POC Glucose (mg/dL) 347 H 188 H 348 H (75-99) mg/dL Microbiology - Last 24 Hours (Table) 03/12/21 10:53 Blood Culture - Preliminary Blood No Growth after 120 hours Assessment and Plan Assessment: Paroxysmal Atrial fibrillation with RVR Acute COPD exacerbation Colonic fecal stasis, no bowel obstruction reported per CT Diabetes mellitus type 2, uncontrolled with possible early DKA, hemoglobin A1c 8.4. Possible acute bacteremia, blood cultures reporting micrococcus species, repeat blood cultures no growth Severe hypokalemia, resolved Hypomagnesemia Generalized weakness with proximal myopathy Gait dysfunction CAD Gastroesophageal reflux disease Hypertension Plan: Continue current medication regime ,monitoring and symptomatic treatment. Continue with IV antibiotic therapy times one more day. Increase ambulation , wean off O2 as per parameters. Maintain aggressive pulmonary toileting with incentive spirometer, steroids and nebulized bronchodilators ordered. Levemir insulin dose further adjusted with us monitoring of Accu-Cheks. Discharge planning in progress, and the next 24 hours, pending final DC recommendations and clearance per ID. The impression and plan of care has been dictated as directed. : I performed a history and examination of this patient, discussed the same with the dictator. I agree with the dictator's note ,documented as a scribe. Any additional findings or plans will be noted.
[2021-03-18 16:53] LABS: Glucose,Whole Blood 330 mg/dL (75-99)
[2021-03-18 20:13] LABS: Glucose,Whole Blood 413 mg/dL (75-99)
[2021-03-18] MEDS: ATORVASTATIN 40 MG TAB PO SCH (20:22)
[2021-03-18] MEDS: MONTELUKAST 10 MG TAB PO SCH (20:22)
[2021-03-18] MEDS ORDERED: INSULIN DETEMIR (LEVEMIR) 100 UNIT/ML SYR SQ SCH (21:00)
[2021-03-18] MEDS ORDERED: INSULIN DETEMIR (LEVEMIR) 100 UNIT/ML SYR SQ STA (21:05)
--- NOTE | 2021-03-18 23:19 | PN ---
PROGRESS NOTE DATE OF SERVICE: 03/18/2021 REASON FOR FOLLOWUP: 1. Positive micrococcus, likely contaminant. 2. Fever; likely pneumonia. INTERVAL HISTORY: The patient is afebrile. The patient is breathing comfortably. The patient denies having any chest pain. No worsening cough or sputum production. No abdominal pain and no diarrhea. PHYSICAL EXAMINATION: Blood pressure 140/85 with a pulse of 98, temperature 98.8. He is 98% on 2 L nasal cannula. General description is a middle-aged male lying in bed in no distress. Respiratory system: Unlabored breathing, coarse breath sounds bilaterally. No wheeze. Heart S1, S2. Regular rate and rhythm. Abdomen soft, no tenderness. Extremities no edema of the feet. LABS: No new labs been obtained today. Blood culture repeat has been negative so far. DIAGNOSTIC IMPRESSION AND PLAN: 1. Patient with a fever, predominantly respiration symptoms, likely pneumonia. Overall improvement on the Rocephin and doxycycline, finishing therapy with oral Ceftin and doxycycline. for another week. 2. Positive blood culture with micrococcus species, likely skin contaminant. Adequately treated. No further workup for the same. MMODL / IJN: [id number] /
[2021-03-19] MEDS: guaiFENesin-DM 100-10MG/5ML 10 ML CUP PO PRN (01:01)
[2021-03-19 07:04] LABS: Glucose,Whole Blood 137 mg/dL (75-99)
[2021-03-19] MEDS: IPRATROPIUM-ALBUTEROL 3 ML NEB INHALATION SCH ×3 (07:45→15:48)
[2021-03-19] MEDS: predniSONE 20 MG TAB PO SCH (07:56)
[2021-03-19] MEDS: oxyCODONE ER 20 MG TAB.ER.12H PO SCH (07:56)
[2021-03-19] MEDS: DOXYCYCLINE 100 MG CAP PO SCH (07:57)
[2021-03-19] MEDS: METOPROLOL TARTRATE 50 MG TAB PO SCH (07:57)
[2021-03-19] MEDS: APIXABAN 5 MG TAB PO SCH (07:57)
[2021-03-19] MEDS: AMIODARONE 200 MG TAB PO SCH (07:57)
[2021-03-19] MEDS: ASPIRIN 81 MG PO SCH (07:57)
[2021-03-19] MEDS: INSULIN ASPART (NovoLOG) 100 UNIT/ML VIAL SQ SCH ×4 (07:58→12:11)
[2021-03-19] MEDS: INSULIN DETEMIR (LEVEMIR) 100 UNIT/ML SYR SQ SCH (07:58)
[2021-03-19] MEDS: LACTULOSE 20 GM/30 ML CUP PO SCH (07:59)
--- NOTE | 2021-03-19 09:44 | P.DS ---
Providers Date of admission: 03/10/21 14:21 Expected date of discharge: 03/19/21 Attending physician: Puma Lovell MD Consults: 03/10/21 14:28 Consult Physician Urgent Consulting Provider: Heriberto Arredondo Consult Reason/Comments: a fib w rvr Do you want consulting provider notified?: Yes 03/12/21 09:53 Consult Physician Routine Consulting Provider: Diana Pelletier Consult Reason/Comments: pos blood cx, gram pos cocci Do you want consulting provider notified?: Yes Primary care physician: Puma Lovell MD Hospital Course: Final Diagnoses: Paroxysmal Atrial fibrillation with RVR Acute COPD exacerbation Colonic fecal stasis, no bowel obstruction reported per CT Diabetes mellitus type 2, uncontrolled with possible early DKA, hemoglobin A1c 8.4. Possible acute bacteremia, blood cultures reporting micrococcus species, repeat blood cultures no growth Severe hypokalemia, resolved Hypomagnesemia Generalized weakness with proximal myopathy Gait dysfunction CAD Gastroesophageal reflux disease Hypertension Hospital course:This is a 65-year-old gentleman admitted with atrial fibrillation with RVR, diabetes mellitus type 2, uncontrolled with possible early DKA, severe hypokalemia, significant weakness and multiple other medical issues. Maintained on Cardizem drip, repeat echo pending. Denies any chest pain, palpitations or shortness of breath. Maintaining O2 sats in the high 90s on room air. Denies any nausea, vomiting or abdominal pain. Blood sugars in the low 200s. 03/12/2021 denies any nausea or vomiting. Denies abdominal pain.blood cultures reporting gram-positive cocci in clusters, vancomycin initiated. Creatinine 1.19. Afebrile. Telemetry reporting atrial fibrillation with heart rates in the low teens. Beta belkis increased, continues on amiodarone. Magnesium 1.7. Anticoagulated on Eliquis. Hemoglobin A1c 8.4 .Blood sugars better controlled. Denies sweating, blurred vision. Denies chest pain, palpitations. 03/13/2021 overnight had nausea and vomiting accompanied by a fever of 102.4. Nausea and vomiting resolved, eating breakfast. afebrile this morning. Telemetry reporting controlled atrial fibrillation .Currently maintained on IV amiodarone. Blood cultures gram-positive cocci, finalized, micrococcus species- suspected contaminant. Repeat blood culture in progress for clearance of bacteremia. Evaluated by infectious disease with antibiotics adjusted for possible community-acquired pneumonia. Loose nonproductive congested cough. Chest x-ray reporting no acute cardiopulmonary process. 03/14/2021 evaluated by ID, on antibiotics adjusted to Rocephin and doxycycline. afebrile, WBC trending down to 18.7. Further workup in progress regarding patient's prior fevers, initial presentation nausea and vomiting which has cavazos bsided, with CT of abdomen and pelvis pending. Blood sugars controlled. Maintained on antiarrhythmics with heart rate controlled. 03/15/2021 maintained on antibiotics as per infectious disease. Afebrile. CT of abdomen and pelvis reporting mild to moderate diffuse colonic fecal stasis with no bowel obstruction, asymmetric groundglass opacities, low-density thickening both adrenal glands, wears lipid rich hyperplasia unchanged from prior 2014, simple-appearing 1.4 cm thin-walled cyst medially upper to mid pole of the left kidney. CT Rapid negative for covid, PCR pending. Positive nonprod uctive cough, swallows sputum. Denies chest pain, palpitations or increasing shortness of breath. 03/18/2021 significant clinical improvement. Initially had planned for discharge this patient had been maintaining O2 sats in the high 90s to 100% on room air. Minimal cough reports less shortness of breath. This morning patient requiring 2 L nasal cannula maintaining O2 sats in the low 90s. Blood cultures reporting micrococcus species, suspected skin contaminant as per IDas per ID. Continues on both doxycycline and Rocephin. Repeat blood cultures reporting no growth.Ambulating, tolerating exertion well. Blood sugars uncontrolled, elevated up into the 300s. Significant clinical improvement. Maintained on antibiotics, steroids. Cough is improved, label drier. Maintaining O2 sats in the 90s on room air. Denies chest pain, palpitations or shortness of breath. Tolerating exertion well with no lightheadedness dizziness or focal deficits. Cleared by ID for discharge. Patient will be discharged home today in a stable condition with guarded prognosis. The impression and plan of care has been dictated as directed. : I performed a history and examination of this patient, discussed the same with the dictator. I agree with the dictator's note ,documented as a scribe. Any additional findings or plans will be noted. Patient Condition at Discharge: Stable Plan - Discharge Summary Discharge Rx Participant: No New Discharge Prescriptions: New guaiFENesin-DM 100-10MG/5ML [Robitussin DM] 10 ml PO Q6HR PRN ml PRN Reason: Cough Doxycycline [Vibramycin] 100 mg PO BID 5 Days #10 cap predniSONE 10 mg PO DIRECTED #30 tab Cefuroxime Axetil [Ceftin] 500 mg PO BID 1 Days #2 tab Lactulose [Cephulac] 20 gm PO DAILY #900 ml Montelukast [Singulair] 10 mg PO HS #30 tab Continue DULoxetine HCL [Cymbalta] 60 mg PO BID glipiZIDE [Glucotrol] 5 mg PO AC-BID Semaglutide [Ozempic] 0.5 mg SQ Q7D oxyCODONE HCL [oxyCODONE HCL (IR)] 15 mg PO Q8H Aspirin 81 mg PO DAILY #30 chew Apixaban [Eliquis] 5 mg PO BID #60 tab Insulin Glargine,Hum.rec.anlog [Lantus Solostar Pen] 25 unit SQ DAILY Atorvastatin [Lipitor] 40 mg PO HS oxyCODONE ER [OxyCONTIN] 80 mg PO Q12H Metoprolol Tartrate [Lopressor] 50 mg PO BID #60 tab Pantoprazole [Protonix] 40 mg PO AC-BRKFST #30 tablet. rOPINIRole HCL [Requip] 1 mg PO BID Insulin Aspart [NovoLOG Flexpen] See Protocol SQ AC-TID metFORMIN HCL [Glucophage] 1,000 mg PO BID Amiodarone [Cordarone] 200 mg PO DAILY Gabapentin [Neurontin] 300 mg PO BID lisinopriL [Prinivil] 10 mg PO DAILY #1 tablet Discharge Medication List DULoxetine HCL [Cymbalta] 60 mg PO BID 11/16/19 [History] Semaglutide [Ozempic] 0.5 mg SQ Q7D 11/16/19 [History] glipiZIDE [Glucotrol] 5 mg PO AC-BID 11/16/19 [History] oxyCODONE HCL [oxyCODONE HCL (IR)] 15 mg PO Q8H 03/01/20 [History] Aspirin 81 mg PO DAILY #30 chew 04/10/20 [Rx] Apixaban [Eliquis] 5 mg PO BID #60 tab 10/02/20 [Rx] Metoprolol Tartrate [Lopressor] 50 mg PO BID #60 tab 10/02/20 [Rx] Pantoprazole [Protonix] 40 mg PO AC-BRKFST #30 tablet. 10/02/20 [Rx] Amiodarone [Cordarone] 200 mg PO DAILY 01/31/21 [History] Atorvastatin [Lipitor] 40 mg PO HS 01/31/21 [History] Insulin Aspart [NovoLOG Flexpen] See Protocol SQ AC-TID 01/31/21 [History] Insulin Glargine,Hum.rec.anlog [Lantus Solostar Pen] 25 unit SQ DAILY 01/31/21 [History] metFORMIN HCL [Glucophage] 1,000 mg PO BID 01/31/21 [History] oxyCODONE ER [OxyCONTIN] 80 mg PO Q12H 01/31/21 [History] rOPINIRole HCL [Requip] 1 mg PO BID 01/31/21 [History] Gabapentin [Neurontin] 300 mg PO BID 02/06/21 [History] lisinopriL [Prinivil] 10 mg PO DAILY #1 tablet 02/11/21 [Rx] Cefuroxime Axetil [Ceftin] 500 mg PO BID 1 Days #2 tab 03/19/21 [Rx] Doxycycline [Vibramycin] 100 mg PO BID 5 Days #10 cap 03/19/21 [Rx] Lactulose [Cephulac] 20 gm PO DAILY #900 ml 03/19/21 [Rx] Montelukast [Singulair] 10 mg PO HS #30 tab 03/19/21 [Rx] guaiFENesin-DM 100-10MG/5ML [Robitussin DM] 10 ml PO Q6HR PRN ml 03/19/21 [Rx] predniSONE 10 mg PO DIRECTED #30 tab 03/19/21 [Rx] Follow up Appointment(s)/Referral(s): Puma Lovell MD [Primary Care Provider] - 1-2 days Donovan Hua MD [STAFF PHYSICIAN] - 2 Weeks
[2021-03-19 09:56] LABS: Glucose,Whole Blood 59 mg/dL (75-99)
[2021-03-19 10:13] LABS: Glucose,Whole Blood 47 mg/dL (75-99)
[2021-03-19 10:31] LABS: Glucose,Whole Blood 68 mg/dL (75-99)
[2021-03-19] MEDS ORDERED: DEXTROSE 50% SYRINGE 50 ML IVP ONE (10:31)
[2021-03-19 10:54] LABS: Glucose,Whole Blood 214 mg/dL (75-99)
[2021-03-19 11:24] LABS: Basophils # (A) 0.04 X 10*3/uL (0.00-0.10); Basophils % (A) 0.3 %; Eosinophils # (A) 0.01 X 10*3/uL (0.04-0.35); Eosinophils % (A) 0.1 %; HCT 34.7 % (39.6-50.0); HGB 10.4 g/dL (13.0-17.0); Lymphocytes # (A) 1.94 X 10*3/uL (0.90-5.00); Lymphocytes % (A) 12.7 %; MCH 26.9 pg (27.0-32.0); MCV 89.9 fL (80.0-97.0); Mean Platelet Volume 9.3 fL (9.5-12.2); Monocytes # (A) 1.74 X 10*3/uL (0.20-1.00); Monocytes % (A) 11.4 %; Neutrophils # (A) 11.01 X 10*3/uL (1.80-7.70); Neutrophils % (A) 72.2 %; Platelet Count 396 X 10*3/uL (140-440); RBC 3.86 X 10*6/uL (4.40-5.60); RDW 16.8 % (11.5-14.5); WBC 15.24 X 10*3/uL (4.50-10.00)
[2021-03-19 11:30] LABS: C Reactive Protein 1.4 mg/dL (0.00-0.80)
[2021-03-19 11:38] LABS: African American GFR (CKD) 62.6 (60.0-200.0); Anion Gap 12.6 mmol/L (10.00-18.00); BUN/Creat Ratio 17.75 Ratio (12.00-20.00); Blood Urea Nitrogen 24.5 mg/dL (9.0-27.0); Calcium 8.7 mg/dL (8.7-10.3); Carbon Dioxide 24.7 mmol/L (20.0-27.5); Potassium 4.8 mmol/L (3.5-5.5)
--- NOTE | 2021-03-19 13:20 | PN ---
PROGRESS NOTE DATE OF SERVICE: 03/19/2021 REASON FOR FOLLOWUP: Fever, likely pneumonia. INTERVAL HISTORY: The patient is afebrile. The patient is breathing comfortably. The patient denies having any chest pain or shortness of breath. He did have a cough, not bringing any sputum. No abdominal pain. No diarrhea. PHYSICAL EXAMINATION: Blood pressure is 128/72 with a pulse of 89. Temperature is 97.6. He is 98% on 2 L nasal cannula. General description is a middle-aged male up in the bed in no distress. Respiratory system: Unlabored breathing, coarse breath sounds. No wheeze. Heart S1, S2. Regular rate and rhythm. Abdomen soft, no tenderness. Extremities are no edema of the feet. LABS: White count 15.24, creatinine is 1.4. DIAGNOSTIC IMPRESSION AND PLAN: Patient admitted to the hospital with fever concern for pneumonia. Finish therapy with Ceftin and Doxycycline for a week and close followup. MMODL / IJN: [id number] /
[2021-03-19 14:25] VITALS: BP 122/75; RESP 18; TEMP 98.4
[2021-03-19 15:59] VITALS: PULSE 95
== END 2021-03-19 16:09 | disposition home or self-care (01) | DRG 637 ==
LOC: EC 12:26 → 3SCARD 14:21 → 4SSUR 03-15 20:33
PROVIDERS: ADMIT Family Medicine; ATTEND Family Medicine
DX: E11.10 Type 2 diabetes mellitus with ketoacidosis without coma (principal); J18.9 Pneumonia, unspecified organism; I47.1 Supraventricular tachycardia; I50.32 Chronic diastolic (congestive) heart failure; J44.0 Chronic obstructive pulmonary disease with (acute) lower respiratory infection; J44.1 Chronic obstructive pulmonary disease with (acute) exacerbation; R78.81 Bacteremia; N17.9 Acute kidney failure, unspecified; E87.6 Hypokalemia; E78.5 Hyperlipidemia, unspecified; E83.42 Hypomagnesemia; E86.0 Dehydration; I95.9 Hypotension, unspecified; I11.0 Hypertensive heart disease with heart failure; I25.10 Atherosclerotic heart disease of native coronary artery without angina pectoris; I25.2 Old myocardial infarction; I25.5 Ischemic cardiomyopathy; I48.0 Paroxysmal atrial fibrillation; K21.9 Gastro-esophageal reflux disease without esophagitis; R26.89 Other abnormalities of gait and mobility; M19.90 Unspecified osteoarthritis, unspecified site; Z79.01 Long term (current) use of anticoagulants; Z20.822 Contact with and (suspected) exposure to COVID-19; Z79.84 Long term (current) use of oral hypoglycemic drugs; Z79.4 Long term (current) use of insulin; Z79.891 Long term (current) use of opiate analgesic; Z79.899 Other long term (current) drug therapy; G89.29 Other chronic pain; M54.50 Low back pain, unspecified; M79.605 Pain in left leg; M79.604 Pain in right leg; Z79.82 Long term (current) use of aspirin; Z82.49 Family history of ischemic heart disease and other diseases of the circulatory system; Z83.3 Family history of diabetes mellitus; Z87.891 Personal history of nicotine dependence; Z91.81 History of falling; Z95.1 Presence of aortocoronary bypass graft; Z95.5 Presence of coronary angioplasty implant and graft; Z87.440 Personal history of urinary (tract) infections; Z98.890 Other specified postprocedural states
CPT/HCPCS: 36415; 71045; 71046; 74018; 74177; 80048; 80051; 80053; 80306; 81001; 82009; 82150; 82330; 82565; 82947; 83036; 83605; 83690; 83735; 84100; 84145; 84443; 84484; 84520; 85025; 85027; 85610; 85730; 86140; 87040; 87086; 87635; 93005; 93306; 94640; 94760; 96361; 96374; 96375; 99285

== ENCOUNTER 2021-05-08 19:48 | Inpatient (IN) | payer MEDICARE, OTHER ==
[2021-05-08 20:05] LABS: Glucose,Whole Blood 397 mg/dL (75-99)
[2021-05-08] MEDS ORDERED: MORPHINE SULFATE 4 MG/ML SYRINGE IV STA (20:10)
[2021-05-08] MEDS ORDERED: SODIUM CHLORIDE 0.9% 500 ML 500 ML IV STA (20:10)
[2021-05-08 20:33] LABS: Anisocytosis Slight; Basophils % (A) 0 %; Eosinophils % (A) 0 %; HCT 51.3 % (39.0-53.0); Hypochromasia Moderate; Lymphocytes # (A) 0.2 k/uL (1.0-4.8); Lymphocytes % (A) 2 %; MCH 27.8 pg (25.0-35.0); MCHC 30.5 g/dL (31.0-37.0); Mean Platelet Volume 7.3; Monocytes # (A) 0.3 k/uL (0-1.0); Monocytes % (A) 3 %; Neutrophils # (A) 11.1 k/uL (1.3-7.7); Neutrophils % (A) 94 %; Platelet Count 365 k/uL (150-450); RBC 5.64 m/uL (4.30-5.90); RDW 17.8 % (11.5-15.5); WBC 11.7 k/uL (3.8-10.6)
[2021-05-08 20:34] LABS: Appearance,Urine Clear (Clear); Bacteria,Urine Rare /hpf; Bilirubin,Urine Negative (Negative); Blood,Urine Small (Negative); Color,Urine Light Yellow; Glucose,Urine (UA) 4+ (Negative); Leukocyte Esterase,Urine Negative (Negative); Nitrite,Urine Negative (Negative); PH, Urine 6.5 (5.0-8.0); Protein,Urine 3+ (Negative); RBC,Urine 8 /hpf (0-5); Squamous Epithelial Cell,Urine <1 /hpf (0-4); Urobilinogen,Urine <2.0 mg/dL (<2.0); WBC,Urine 3 /hpf (0-5)
[2021-05-08 20:41] LABS: INR 0.9 (<1.2); Partial Thromboplastin Time 24.8 sec (22.0-30.0); Prothrombin Time 10.3 sec (9.0-12.0)
[2021-05-08 20:44] LABS: AST 36 U/L (17-59); African American GFR (CKD) >90 (>60 ml/min/1.73 sqM); Albumin 4.5 g/dL (3.5-5.0); Alkaline Phosphatase 212 U/L (38-126); Anion Gap 25 mmol/L; Blood Urea Nitrogen 14 mg/dL (9-20); Calcium 9.6 mg/dL (8.4-10.2); Carbon Dioxide 15 mmol/L (22-30); Chloride 100 mmol/L (98-107); Glucose 464 mg/dL (74-99); Lipase 57 U/L (23-300); Magnesium 1.7 mg/dL (1.6-2.3); Non-African American GFR(CKD) >90 (>60 ml/min/1.73 sqM); Potassium 3.1 mmol/L (3.5-5.1); Sodium 140 mmol/L (137-145); Total Bilirubin 1.1 mg/dL (0.2-1.3)
[2021-05-08 20:48] LABS: HGB 15.7 gm/dL (13.0-17.5)
[2021-05-08 20:50] LABS: ALT 40 U/L (4-49)
[2021-05-08 21:00] LABS: Ketones,Urine 2+ (Negative)
--- NOTE | 2021-05-08 21:07 | XR ---
EXAMINATION TYPE: XR chest 1V portable DATE OF EXAM: 05/08/2021 8:44 PM COMPARISON:Chest radiographs from 03/13/2021 TECHNIQUE: Frontal view of the chest. CLINICAL INDICATION:Male, 66 years old with history of chest pain; FINDINGS: Lungs/Pleura: There is right upper lobe airspace opacities. No evidence of pleural effusion, focal co nsolidation, or pneumothorax. Pulmonary vascularity: Unremarkable. Heart/mediastinum: Cardiomediastinal silhouette is unremarkable. Musculoskeletal: No acute osseous pathology. Midline sternotomy wires and surgical clips project over the mediastinum. IMPRESSION: Asymmetric right-sided airspace opacities correlate for review.
[2021-05-08] MEDS: SODIUM CHLORIDE 0.9% 1,000 ML IV SCH (21:50)
[2021-05-08 21:59] LABS: ABG Base Excess -0.2 mmol/L; ABG HCO3 23 mmol/L (21-25); ABG Oxygen Saturation 96.3 % (94-97); ABG PCO2 29 mmHg (35-45); ABG PH 7.51 (7.35-7.45); ABG PO2 90 mmHg (83-108); ABG TCO2 24 mmol/L (19-24); Allen Test Performed? Yes
--- NOTE | 2021-05-08 22:07 | ED ---
General Adult HPI - General Chief complaint: Chest Pain Stated complaint: High Sugar Source: EMS Mode of arrival: EMS - History of Present Illness Initial comments: 66-year-old male past medical history of A. fib, diabetes presents to the emergency department for abdominal pain and vomiting. He called EMS as he has been unable to hold down any food or drink for the past day. Patient reports to some generalized abdominal pain. No chest pain or shortness of breath. EMS obtained an Accu-Chek and it was noted to be in the 400s. They also found him to have a rapid heart rate with concern for ST elevation. Patient is a very poor historian and cannot provide much history. - Related Data Home Medications Medication Instructions Recorded Confirmed DULoxetine HCL [Cymbalta] 60 mg PO BID 11/16/19 05/08/21 Semaglutide [Ozempic] 0.5 mg SQ Q7D 11/16/19 05/08/21 glipiZIDE [Glucotrol] 5 mg PO AC-BID 11/16/19 05/08/21 oxyCODONE HCL [oxyCODONE HCL (IR)] 15 mg PO Q8H 03/01/20 05/08/21 Amiodarone [Cordarone] 200 mg PO DAILY 01/31/21 05/08/21 Atorvastatin [Lipitor] 40 mg PO HS 01/31/21 05/08/21 Insulin Aspart [NovoLOG Flexpen] See Protocol SQ AC-TID 01/31/21 05/08/21 Insulin Glargine,Hum.rec.anlog 20 unit SQ DAILY 01/31/21 05/08/21 [Lantus Solostar Pen] metFORMIN HCL [Glucophage] 1,000 mg PO BID 01/31/21 05/08/21 oxyCODONE ER [OxyCONTIN] 80 mg PO Q12H 01/31/21 05/08/21 rOPINIRole HCL [Requip] 1 mg PO BID 01/31/21 05/08/21 Gabapentin [Neurontin] 300 mg PO BID 02/06/21 05/08/21 Albuterol Sulfate [Albuterol 2 puff INHALATION RT-QID PRN 05/08/21 05/08/21 Sulfate Hfa] Lactulose [Cephulac] 20 gm PO DAILY PRN 05/08/21 05/08/21 Previous Rx's Medication Instructions Recorded Aspirin 81 mg PO DAILY #30 chew 04/10/20 Apixaban [Eliquis] 5 mg PO BID #60 tab 10/02/20 Metoprolol Tartrate [Lopressor] 50 mg PO BID #60 tab 10/02/20 Pantoprazole [Protonix] 40 mg PO AC-BRKFST #30 tablet. 10/02/20 lisinopriL [Prinivil] 10 mg PO DAILY #1 tablet 02/11/21 Montelukast [Singulair] 10 mg PO HS #30 tab 03/19/21 Allergies Allergy/AdvReac Type Severity Reaction Status Date / Time No Known Allergies Allergy Verified 05/08/21 22:40 Review of Systems ROS Statement: Those systems with pertinent positive or pertinent negative responses have been documented in the HPI. ROS Other: All systems not noted in ROS Statement are negative. Past Medical History Past Medical History: Atrial Fibrillation, Coronary Artery Disease (CAD), Chest Pain / Angina, Diabetes Mellitus, GERD/Reflux, Hyperlipidemia, Hypertension, Myocardial Infarction (CO) Additional Past Medical History / Comment(s): Pt had CABG 07/2019 and had post op Afib/UTI with pseudomonas aeruginosa, ischemic cardiomyopathy, IDDM type II, past R scrotal abscess with sepsis, chronic lower back pain and bilateral leg pain, Last Myocardial Infarction Date:: 03/20/15 History of Any Multi-Drug Resistant Organisms: None Reported Past Surgical History: Back Surgery, Coronary Bypass/CABG, Heart Ca theterization, Heart Catheterization With Stent, Orthopedic Surgery Additional Past Surgical History / Comment(s): 08/23/2019 CABG 3 vessels, PCI with total of 5 stents, L ankle ligament repair, R leg ORIF, low back surgery, colonoscopy. Past Anesthesia/Blood Transfusion Reactions: No Reported Reaction Additional Past Anesthesia/Blood Transfusion Reaction / Comment(s): Pt has received blood in past without reaction. Date of Last Stent Placement:: 02/2015 Past Psychological History: No Psychological Hx Reported Smoking Status: Former smoker Past Alcohol Use History: None Reported Past Drug Use History: Marijuana - Past Family History Sister(s) Family Medical History: Coronary Artery Disease (CAD), Hypertension Father Family Medical History: Coronary Artery Disease (CAD), Diabetes Mellitus, Deep Vein Thrombosis (DVT), Hypertension Additional Family Medical History / Comment(s): Father at age 58yrs. He of blood clot from leg injury that went to his heart. Course Vital Signs 05/08/21 05/08/21 05/08/21 19:54 22:00 23:18 Temperature 98.2 F Pulse Rate 138 H 133 H 135 H Respiratory 20 18 20 Rate Blood Pressure 198/122 182/102 O2 Sat by Pulse 99 94 L 94 L Oximetry 05/09/21 05/09/21 00:57 01:41 Temperature Pulse Rate 106 H 127 H Respiratory 23 18 Rate Blood Pressure 193/102 O2 Sat by Pulse 95 96 Oximetry EKG Findings - EKG Comments: EKG Findings:: EKG demonstrates a suspected A. fib with a rapid rate. There is a left bundle branch block. MT interval 111. QRS 124. QTC of 409. No acute ST segment elevations. Negative for sgarbossa criteria. Medical Decision Making - Medical Decision Making Upon arrival patient is promptly placed in trauma bay 2. EKG is obtained which demonstrates possible A. fib with a left bundle branch block. This is compared to patient's previous EKGs which appear similar. IV access established the patient is given a 500 bolus of normal saline. He does have a history of CABG and therefore we do hold off on large fluid bolus. Accu-Chek is obtained and is notably 397. Laboratory studies were conducted. Chest x-ray is performed. Laboratory studies reviewed and demonstrates that the patient is in DKA. He does have an anion gap of 25, CO2 of 15. Potassium 3.1. He is given 40 mg of oral potassium and 20 mEq of IV potassium. Lactic acid is 9.2. BNP is elevated at 15,400. Patient acetone positive. He is started on an insulin drip. Patient has been able to hold down his medications and therefore he is started on amiodarone drip for his rapid A. fib. Patient will be admitted. Spoke with Dr. Candelaria who agreed to admit the patient. He is currently awaiting bed on the floor in stable condition with guarded prognosis - Lab Data Result diagrams: 05/08/21 20:19 05/08/21 23:28 Lab Results 05/08/21 05/08/21 05/08/21 Range/Units 19:50 20:19 20:19 WBC 11.7 H (3.8-10.6) k/uL RBC 5.64 (4.30-5.90) m/uL Hgb 15.7 D (13.0-17.5) gm/dL Hct 51.3 (39.0-53.0) % MCV 91.0 (80.0-100.0) fL MCH 27.8 (25.0-35.0) pg MCHC 30.5 L (31.0-37.0) g/dL RDW 17.8 H (11.5-15.5) % Plt Count 365 (150-450) k/uL MPV 7.3 Neutrophils % 94 % Lymphocytes % 2 % Monocytes % 3 % Eosinophils % 0 % Basophils % 0 % Neutrophils # 11.1 H (1.3-7.7) k/uL Lymphocytes # 0.2 L (1.0-4.8) k/uL Monocytes # 0.3 (0-1.0) k/uL Eosinophils # 0.0 (0-0.7) k/uL Basophils # 0.0 (0-0.2) k/uL Hypochromasia Moderate Anisocytosis Slight PT 10.3 (9.0-12.0) sec INR 0.9 (<1.2) APTT 24.8 (22.0-30.0) sec Sample Site ABG pH (7.35-7.45) ABG pCO2 (35-45) mmHg ABG pO2 (83-108) mmHg ABG HCO3 (21-25) mmol/L ABG Total CO2 (19-24) mmol/L ABG O2 Saturation (94-97) % ABG Base Excess mmol/L Wild Test FiO2 % Sodium (137-145) mmol/L Potassium (3.5-5.1) mmol/L Chloride (98-107) mmol/L Carbon Dioxide (22-30) mmol/L Anion Gap mmol/L BUN (9-20) mg/dL Creatinine (0.66-1.25) mg/dL Est GFR (CKD-EPI)AfAm (>60 ml/min/1.73 sqM) Est GFR (CKD-EPI)NonAf (>60 ml/min/1.73 sqM) Glucose (74-99) mg/dL POC Glucose (mg/dL) 397 H (75-99) mg/dL POC Glu Specimen Transporter ID Suárez, Vasu Lactic Ac Sepsis Rflx Plasma Lactic Acid Chinedu (0.7-2.0) mmol/L Calcium (8.4-10.2) mg/dL Magnesium (1.6-2.3) mg/dL Total Bilirubin (0.2-1.3) mg/dL AST (17-59) U/L ALT (4-49) U/L Alkaline Phosphatase (38-126) U/L Troponin I (0.000-0.034) ng/mL NT-Pro-B Natriuret Pep pg/mL Total Protein (6.3-8.2) g/dL Albumin (3.5-5.0) g/dL Lipase (23-300) U/L Urine Color Urine Appearance (Clear) Urine pH (5.0-8.0) Ur Specific [place] (1.001-1.035) Urine Protein (Negative) Urine Glucose (UA) (Negative) Urine Ketones (Negative) Urine Blood (Negative) Urine Nitrite (Negative) Urine Bilirubin (Negative) Urine Urobilinogen (<2.0) mg/dL Ur Leukocyte Esterase (Negative) Urine RBC (0-5) /hpf Urine WBC (0-5) /hpf Ur Squamous Epith Cells (0-4) /hpf Urine Bacteria (None) /hpf Acetone, Qual (Negative) 05/08/21 05/08/21 05/08/21 Range/Units 20:19 20:19 20:19 WBC (3.8-10.6) k/uL RBC (4.30-5.90) m/uL Hgb (13.0-17.5) gm/dL Hct (39.0-53.0) % MCV (80.0-100.0) fL MCH (25.0-35.0) pg MCHC (31.0-37.0) g/dL RDW (11.5-15.5) % Plt Count (150-450) k/uL MPV Neutrophils % % Lymphocytes % % Monocytes % % Eosinophils % % Basophils % % Neutrophils # (1.3-7.7) k/uL Lymphocytes # (1.0-4.8) k/uL Monocytes # (0-1.0) k/uL Eosinophils # (0-0.7) k/uL Basophils # (0-0.2) k/uL Hypochromasia Anisocytosis PT (9.0-12.0) sec INR (<1.2) APTT (22.0-30.0) sec Sample Site ABG pH (7.35-7.45) ABG pCO2 (35-45) mmHg ABG pO2 (83-108) mmHg ABG HCO3 (21-25) mmol/L ABG Total CO2 (19-24) mmol/L ABG O2 Saturation (94-97) % ABG Base Excess mmol/L Wild Test FiO2 % Sodium 140 (137-145) mmol/L Potassium 3.1 L (3.5-5.1) mmol/L Chloride 100 (98-107) mmol/L Carbon Dioxide 15 L (22-30) mmol/L Anion Gap 25 mmol/L BUN 14 (9-20) mg/dL Creatinine 0.85 (0.66-1.25) mg/dL Est GFR (CKD-EPI)AfAm >90 (>60 ml/min/1.73 sqM) Est GFR (CKD-EPI)NonAf >90 (>60 ml/min/1.73 sqM) Glucose 464 H (74-99) mg/dL POC Glucose (mg/dL) (75-99) mg/dL POC Glu Specimen Transporter ID Lactic Ac Sepsis Rflx Plasma Lactic Acid Chinedu (0.7-2.0) mmol/L Calcium 9.6 (8.4-10.2) mg/dL Magnesium 1.7 (1.6-2.3) mg/dL Total Bilirubin 1.1 (0.2-1.3) mg/dL AST 36 (17-59) U/L ALT 40 (4-49) U/L Alkaline Phosphatase 212 H (38-126) U/L Troponin I 0.053 H* (0.000-0.034) ng/mL NT-Pro-B Natriuret Pep 30785 pg/mL Total Protein 8.0 (6.3-8.2) g/dL Albumin 4.5 (3.5-5.0) g/dL Lipase 57 (23-300) U/L Urine Color Urine Appearance (Clear) Urine pH (5.0-8.0) Ur Specific [place] (1.001-1.035) Urine Protein (Negative) Urine Glucose (UA) (Negative) Urine Ketones (Negative) Urine Blood (Negative) Urine Nitrite (Negative) Urine Bilirubin (Negative) Urine Urobilinogen (<2.0) mg/dL Ur Leukocyte Esterase (Negative) Urine RBC (0-5) /hpf Urine WBC (0-5) /hpf Ur Squamous Epith Cells (0-4) /hpf Urine Bacteria (None) /hpf Acetone, Qual Positive (Negative) 05/08/21 05/08/21 05/08/21 Range/Units 20:19 20:19 20:49 WBC (3.8-10.6) k/uL RBC (4.30-5.90) m/uL Hgb (13.0-17.5) gm/dL Hct (39.0-53.0) % MCV (80.0-100.0) fL MCH (25.0-35.0) pg MCHC (31.0-37.0) g/dL RDW (11.5-15.5) % Plt Count (150-450) k/uL MPV Neutrophils % % Lymphocytes % % Monocytes % % Eosinophils % % Basophils % % Neutrophils # (1.3-7.7) k/uL Lymphocytes # (1.0-4.8) k/uL Monocytes # (0-1.0) k/uL Eosinophils # (0-0.7) k/uL Basophils # (0-0.2) k/uL Hypochromasia Anisocytosis PT (9.0-12.0) sec INR (<1.2) APTT (22.0-30.0) sec Sample Site ABG pH (7.35-7.45) ABG pCO2 (35-45) mmHg ABG pO2 (83-108) mmHg ABG HCO3 (21-25) mmol/L ABG Total CO2 (19-24) mmol/L ABG O2 Saturation (94-97) % ABG Base Excess mmol/L Wild Test FiO2 % Sodium (137-145) mmol/L Potassium (3.5-5.1) mmol/L Chloride (98-107) mmol/L Carbon Dioxide (22-30) mmol/L Anion Gap mmol/L BUN (9-20) mg/dL Creatinine (0.66-1.25) mg/dL Est GFR (CKD-EPI)AfAm (>60 ml/min/1.73 sqM) Est GFR (CKD-EPI)NonAf (>60 ml/min/1.73 sqM) Glucose (74-99) mg/dL POC Glucose (mg/dL) (75-99) mg/dL POC Glu Specimen Transporter ID Lactic Ac Sepsis Rflx Y Plasma Lactic Acid Chinedu 9.2 H* (0.7-2.0) mmol/L Calcium (8.4-10.2) mg/dL Magnesium (1.6-2.3) mg/dL Total Bilirubin (0.2-1.3) mg/dL AST (17-59) U/L ALT (4-49) U/L Alkaline Phosphatase (38-126) U/L Troponin I (0.000-0.034) ng/mL NT-Pro-B Natriuret Pep pg/mL Total Protein (6.3-8.2) g/dL Albumin (3.5-5.0) g/dL Lipase (23-300) U/L Urine Color Light Yellow Urine Appearance Clear (Clear) Urine pH 6.5 (5.0-8.0) Ur Specific [place] 1.020 (1.001-1.035) Urine Protein 3+ H (Negative) Urine Glucose (UA) 4+ H (Negative) Urine Ketones 2+ H (Negative) Urine Blood Small H (Negative) Urine Nitrite Negative (Negative) Urine Bilirubin Negative (Negative) Urine Urobilinogen <2.0 (<2.0) mg/dL Ur Leukocyte Esterase Negative (Negative) Urine RBC 8 H (0-5) /hpf Urine WBC 3 (0-5) /hpf Ur Squamous Epith Cells <1 (0-4) /hpf Urine Bacteria Rare H (None) /hpf Acetone, Qual (Negative) 05/08/21 Range/Units 21:57 WBC (3.8-10.6) k/uL RBC (4.30-5.90) m/uL Hgb (13.0-17.5) gm/dL Hct (39.0-53.0) % MCV (80.0-100.0) fL MCH (25.0-35.0) pg MCHC (31.0-37.0) g/dL RDW (11.5-15.5) % Plt Count (150-450) k/uL MPV Neutrophils % % Lymphocytes % % Monocytes % % Eosinophils % % Basophils % % Neutrophils # (1.3-7.7) k/uL Lymphocytes # (1.0-4.8) k/uL Monocytes # (0-1.0) k/uL Eosinophils # (0-0.7) k/uL Basophils # (0-0.2) k/uL Hypochromasia Anisocytosis PT (9.0-12.0) sec INR (<1.2) APTT (22.0-30.0) sec Sample Site R brachial ABG pH 7.51 H (7.35-7.45) ABG pCO2 29 L (35-45) mmHg ABG pO2 90 (83-108) mmHg ABG HCO3 23 (21-25) mmol/L ABG Total CO2 24 (19-24) mmol/L ABG O2 Saturation 96.3 (94-97) % ABG Base Excess -0.2 mmol/L Wild Test Yes FiO2 21 % Sodium (137-145) mmol/L Potassium (3.5-5.1) mmol/L Chloride (98-107) mmol/L Carbon Dioxide (22-30) mmol/L Anion Gap mmol/L BUN (9-20) mg/dL Creatinine (0.66-1.25) mg/dL Est GFR (CKD-EPI)AfAm (>60 ml/min/1.73 sqM) Est GFR (CKD-EPI)NonAf (>60 ml/min/1.73 sqM) Glucose (74-99) mg/dL POC Glucose (mg/dL) (75-99) mg/dL POC Glu Specimen Transporter ID Lactic Ac Sepsis Rflx Plasma Lactic Acid Chinedu (0.7-2.0) mmol/L Calcium (8.4-10.2) mg/dL Magnesium (1.6-2.3) mg/dL Total Bilirubin (0.2-1.3) mg/dL AST (17-59) U/L ALT (4-49) U/L Alkaline Phosphatase (38-126) U/L Troponin I (0.000-0.034) ng/mL NT-Pro-B Natriuret Pep pg/mL Total Protein (6.3-8.2) g/dL Albumin (3.5-5.0) g/dL Lipase (23-300) U/L Urine Color Urine Appearance (Clear) Urine pH (5.0-8.0) Ur Specific [place] (1.001-1.035) Urine Protein (Negative) Urine Glucose (UA) (Negative) Urine Ketones (Negative) Urine Blood (Negative) Urine Nitrite (Negative) Urine Bilirubin (Negative) Urine Urobilinogen (<2.0) mg/dL Ur Leukocyte Esterase (Negative) Urine RBC (0-5) /hpf Urine WBC (0-5) /hpf Ur Squamous Epith Cells (0-4) /hpf Urine Bacteria (None) /hpf Acetone, Qual (Negative) Disposition
[2021-05-08] MEDS ORDERED: POTASSIUM CHLORIDE ER 20 MEQ TAB.ER PO STA (22:18)
[2021-05-08] MEDS ORDERED: NALOXONE 0.4 MG/ML 1 ML VIAL IV PRN (22:19)
[2021-05-08] MEDS ORDERED: DEXTROSE 5% IN WATER 100 ML with AMIODARONE 150 MG IV ONE (22:24)
[2021-05-08] MEDS ORDERED: AMIODARONE 360 MG in DEXTROSE 5% IN WATER 200 ML IV ONE ×2 (22:36)
[2021-05-08] MEDS: INSULIN REGULAR 100 UNIT in SODIUM CHLORIDE 0.9% 100 ML IV SCH (22:53)
[2021-05-08] MEDS: D5-0.45% NACL WITH KCL 20MEQ/L 1,000 ML IV SCH (23:14)
[2021-05-08 23:34] LABS: Glucose,Whole Blood 317 mg/dL (75-99)
[2021-05-08] MEDS ORDERED: ONDANSETRON 4 MG/2 ML VIAL IVP STA (23:35)
[2021-05-09 00:09] LABS: African American GFR (CKD) >90 (>60 ml/min/1.73 sqM); Anion Gap 21 mmol/L; Blood Urea Nitrogen 16 mg/dL (9-20); Carbon Dioxide 20 mmol/L (22-30); Chloride 102 mmol/L (98-107); Glucose 384 mg/dL (74-99); Non-African American GFR(CKD) >90 (>60 ml/min/1.73 sqM); Sodium 143 mmol/L (137-145)
--- NOTE | 2021-05-09 00:23 | CT ---
EXAMINATION TYPE: CT brain wo con DATE OF EXAM: 05/09/2021 COMPARISON: 02/10/2019 HISTORY: confusion. nausea CT DLP: 1199.4 mGycm Automated exposure control for dose reduction was used. Findings Ventricles have fairly normal size. There is no mass effect or midline shift. There is no sign of int racranial hemorrhage. There is normal aeration of the mastoid sinuses. There is hyperostosis frontali s. Calvarium is intact. IMPRESSION: Negative unenhanced head CT scan. No change.
[2021-05-09 00:48] LABS: Glucose,Whole Blood 245 mg/dL (75-99)
[2021-05-09] MEDS ORDERED: diphenhydrAMINE 50 MG/ML 1 ML VIAL IVP STA (01:43)
[2021-05-09] MEDS ORDERED: METOCLOPRAMIDE 5 MG/ML 2 ML VIAL IVP STA (01:43)
[2021-05-09 01:44] LABS: Glucose,Whole Blood 215 mg/dL (75-99)
[2021-05-09] MEDS ORDERED: ALBUTEROL NEBULIZED 2.5 MG/3 ML INHALATION PRN (01:51)
[2021-05-09] MEDS ORDERED: oxyCODONE ER 80 MG TAB.ER.12H PO SCH (02:00)
[2021-05-09 02:37] LABS: Glucose,Whole Blood 164 mg/dL (75-99)
[2021-05-09 03:40] LABS: Glucose,Whole Blood 169 mg/dL (75-99)
[2021-05-09 04:23] LABS: Phosphorus 1.1 mg/dL (2.5-4.5)
[2021-05-09] MEDS ORDERED: AMIODARONE 450 MG in DEXTROSE 5% IN WATER 250 ML IV SCH ×2 (04:36)
[2021-05-09 04:52] LABS: Glucose,Whole Blood 75 mg/dL (75-99)
[2021-05-09 05:23] LABS: Glucose,Whole Blood 143 mg/dL (75-99)
[2021-05-09] MEDS ORDERED: POTASSIUM CHLORIDE ER 20 MEQ TAB.ER PO STA (05:29)
[2021-05-09 06:37] LABS: Glucose,Whole Blood 143 mg/dL (75-99)
[2021-05-09 08:00] LABS: Glucose,Whole Blood 140 mg/dL (75-99)
[2021-05-09] MEDS: D5-0.45% NACL WITH KCL 20MEQ/L 1,000 ML IV SCH ×2 (08:46→10:23)
[2021-05-09] MEDS: SODIUM CHLORIDE 0.9% 1,000 ML IV SCH ×3 (08:46→21:39)
[2021-05-09] MEDS: PANTOPRAZOLE 40 MG TABLET PO SCH (09:21)
[2021-05-09] MEDS: GABAPENTIN 300 MG CAP PO SCH ×2 (09:21→21:04)
[2021-05-09] MEDS: APIXABAN 5 MG TAB PO SCH ×2 (09:21→21:04)
[2021-05-09] MEDS: ASPIRIN 81 MG PO SCH (09:21)
[2021-05-09 09:27] LABS: Albumin 3.8 g/dL (3.5-5.0); Calcium 9.3 mg/dL (8.4-10.2); Potassium 3.3 mmol/L (3.5-5.1); Total Bilirubin 0.8 mg/dL (0.2-1.3)
[2021-05-09 09:35] LABS: Glucose,Whole Blood 206 mg/dL (75-99)
[2021-05-09] MEDS: DULoxetine HCL 60 MG CAPSULE.DR PO SCH ×2 (10:17→21:04)
[2021-05-09] MEDS: oxyCODONE ER 80 MG TAB.ER.12H PO SCH ×2 (10:24→21:04)
[2021-05-09 11:01] LABS: Glucose,Whole Blood 277 mg/dL (75-99)
[2021-05-09 13:12] LABS: African American GFR (CKD) >90 (>60 ml/min/1.73 sqM); Anion Gap 5 mmol/L; Blood Urea Nitrogen 19 mg/dL (9-20); Calcium 8.3 mg/dL (8.4-10.2); Carbon Dioxide 25 mmol/L (22-30); Chloride 105 mmol/L (98-107); Glucose 248 mg/dL (74-99); Non-African American GFR(CKD) 88 (>60 ml/min/1.73 sqM); Potassium 3.7 mmol/L (3.5-5.1); Sodium 135 mmol/L (137-145)
[2021-05-09 13:18] LABS: Glucose,Whole Blood 216 mg/dL (75-99)
[2021-05-09] MEDS: INSULIN DETEMIR (LEVEMIR) 100 UNIT/ML SYR SQ SCH ×2 (13:57→21:08)
[2021-05-09] MEDS: INSULIN ASPART (NovoLOG) 100 UNIT/ML VIAL SQ SCH ×2 (17:56→21:07)
[2021-05-09] MEDS: INSULIN REGULAR 100 UNIT in SODIUM CHLORIDE 0.9% 100 ML IV SCH (18:04)
[2021-05-09 18:13] LABS: Glucose,Whole Blood 294 mg/dL (75-99)
[2021-05-09 20:16] LABS: Glucose,Whole Blood 210 mg/dL (75-99)
[2021-05-09] MEDS ORDERED: MONTELUKAST 10 MG TAB PO SCH (21:00)
[2021-05-09] MEDS ORDERED: ATORVASTATIN 40 MG TAB PO SCH (21:00)
[2021-05-09] MEDS: METOPROLOL TARTRATE 50 MG TAB PO SCH (21:04)
--- NOTE | 2021-05-09 22:21 | P.HPIM ---
History of Present Illness H&P Date: 05/09/21 Chief Complaint: weakness, vomiting Ashok Austin is a 66 yo M with PMH of ischemic cardiomyopathy, atrial fibrillation, T2DM, chronic back pain who presented to the ED after experiencing nausea, vomiting, vertigo and weakness over the past 2 days. He denies any specific trigger for this episde, state she woke up feeling nauseated and proceeded to vomit with poor PO intake throughout the day. He does not check his sugars but states he gave himself his usual amount of insulin. He denies alcohol use. He states his symptoms worsened to the point he came to the ED. On pr esentation BP 198/122, HR 138, WBC 11.7, glucose 464, lactic 9.2, trop 0.053. Review of Systems All systems: negative Constitutional: Reports malaise, Reports sweats, Reports weakness, Denies chills, Denies fever Eyes: denies blurred vision, denies pain Ears, nose, mouth and throat: Denies headache, Denies sore throat Cardiovascular: Denies chest pain, Denies shortness of breath Respiratory: Denies cough Gastrointestinal: Reports abdominal pain, Reports nausea, Reports vomiting, Denies diarrhea Musculoskeletal: Denies myalgias Integumentary: Denies pruritus, Denies rash Neurological: Denies numbness, Denies weakness Psychiatric: Denies anxiety, Denies depression Endocrine: Denies fatigue, Denies weight change Past Medical History Past Medical History: Atrial Fibrillation, Coronary Artery Disease (CAD), Chest Pain / Angina, Diabetes Mellitus, GERD/Reflux, Hyperlipidemia, Hypertension, Myocardial Infarction ([place]) Additional Past Medical History / Comment(s): Pt had CABG 07/2019 and had post op Afib/UTI with pseudomonas aeruginosa, ischemic cardiomyopathy, IDDM type II, past R scrotal abscess with sepsis, chronic lower back pain and bilateral leg pain, Last Myocardial Infarction Date:: 03/20/15 History of Any Multi-Drug Resistant Organisms: None Reported Past Surgical History: Back Surgery, Coronary Bypass/CABG, Heart Catheteri zation, Heart Catheterization With Stent, Orthopedic Surgery Additional Past Surgical History / Comment(s): 08/23/2019 CABG 3 vessels, PCI with total of 5 stents, L ankle ligament repair, R leg ORIF, low back surgery, colonoscopy. Past Anesthesia/Blood Transfusion Reactions: No Reported Reaction Additional Past Anesthesia/Blood Transfusion Reaction / Comment(s): Pt has received blood in past without reaction. Date of Last Stent Placement:: 02/2015 Smoking Status: Former smoker - Past Family History Sister(s) Family Medical History: Coronary Artery Disease (CAD), Hypertension Father Family Medical History: Coronary Artery Disease (CAD), Diabetes Mellitus, Deep Vein Thrombosis (DVT), Hypertension Additional Family Medical History / Comment(s): Father at age 58yrs. He of blood clot from leg injury that went to his heart. Medications and Allergies Home Medications Medication Instructions Recorded Confirmed Type DULoxetine HCL [Cymbalta] 60 mg PO BID 11/16/19 05/08/21 History Semaglutide [Ozempic] 0.5 mg SQ Q7D 11/16/19 05/08/21 History glipiZIDE [Glucotrol] 5 mg PO AC-BID 11/16/19 05/08/21 History oxyCODONE HCL [oxyCODONE HCL (IR)] 15 mg PO Q8H 03/01/20 05/08/21 History Aspirin 81 mg PO DAILY #30 chew 04/10/20 05/08/21 Rx Apixaban [Eliquis] 5 mg PO BID #60 tab 10/02/20 05/08/21 Rx Metoprolol Tartrate [Lopressor] 50 mg PO BID #60 tab 10/02/20 05/08/21 Rx Pantoprazole [Protonix] 40 mg PO AC-BRKFST #30 tablet. 10/02/20 05/08/21 Rx Amiodarone [Cordarone] 200 mg PO DAILY 01/31/21 05/08/21 History Atorvastatin [Lipitor] 40 mg PO HS 01/31/21 05/08/21 History Insulin Aspart [NovoLOG Flexpen] See Protocol SQ AC-TID 01/31/21 05/08/21 History Insulin Glargine,Hum.rec.anlog 20 unit SQ DAILY 01/31/21 05/08/21 History [Lantus Solostar Pen] metFORMIN HCL [Glucophage] 1,000 mg PO BID 01/31/21 05/08/21 History oxyCODONE ER [OxyCONTIN] 80 mg PO Q12H 01/31/21 05/08/21 History rOPINIRole HCL [Requip] 1 mg PO BID 01/31/21 05/08/21 History Gabapentin [Neurontin] 300 mg PO BID 02/06/21 05/08/21 History lisinopriL [Prinivil] 10 mg PO DAILY #1 tablet 02/11/21 05/08/21 Rx Montelukast [Singulair] 10 mg PO HS #30 tab 03/19/21 05/08/21 Rx Albuterol Sulfate [Albuterol 2 puff INHALATION RT-QID PRN 05/08/21 05/08/21 History Sulfate Hfa] Lactulose [Cephulac] 20 gm PO DAILY PRN 05/08/21 05/08/21 History Allergies Allergy/AdvReac Type Severity Reaction Status Date / Time No Known Allergies Allergy Verified 05/08/21 22:40 Physical Exam Vitals: Vital Signs Temp Pulse Pulse Resp BP BP Pulse Ox 05/09/21 18:02 177/95 05/09/21 17:45 79 16 185/84 98 05/09/21 15:47 98.4 F 72 18 133/80 96 05/09/21 11:43 81 18 122/76 95 05/09/21 10:22 98.1 F 107 H 18 192/101 98 05/09/21 08:00 98.7 F 111 H 20 188/95 99 05/09/21 06:37 116 H 21 87/59 05/09/21 04:44 88 18 93/55 98 05/09/21 02:57 94 21 87/59 99 05/09/21 01:41 127 H 18 193/102 96 05/09/21 00:57 106 H 23 95 05/08/21 23:18 135 H 20 94 L Intake and Output 05/09/21 05/09/21 05/09/21 06:59 14:59 22:59 Intake Total 55.979 304.494 360 Output Total 600 0 Balance 55.979 -295.506 360 Intake: IV 300 D5-0.45% NaCl with KCl 300 20Meq/l 1,000 ml @ 150 mls/hr IV .[id number] [facility] Rx# :[id number] Intake, IV Titration 55.979 4.494 Amount Insulin Regular 100 unit 55.979 4.494 In Sodium Chloride 0.9% 100 ml @ 0.1 UNITS/KG/HR 7.651 mls/hr IV .[id number] [facility] Rx#:[id number] Oral 360 Output: Urine 600 0 Stool 0 Urine/Stool Mix 0 Other: Voiding Method Urinal # Voids 0 # Bowel Movements 0 Weight 75.75 kg General: well nourished, well developed, NAD. Vitals reviewed Eyes: PERRL, EOMI, conjunctiva normal HENT: normocephalic, mucus membranes moist Neck: supple, no JVD Lungs: normal respiratory effort, no wheezes or rales CV: Regular rate and rhythm, no murmur. Peripheral pulses 2+ Abdomen: soft, nondistended, no organomegaly. Epigastric tenderness Lymph: no cervical or axillary LAD Skin: warm and dry. Neuro: A&Ox3, normal mood and affect Results CBC & Chem 7: 05/08/21 20:19 05/09/21 12:15 Labs: Abnormal Lab Results - Last 24 Hours (Table) 05/08/21 05/08/21 05/08/21 Range/Units 23:28 23:28 23:28 Sodium (137-145) mmol/L Potassium 3.0 L (3.5-5.1) mmol/L Carbon Dioxide 20 L (22-30) mmol/L Glucose 384 H (74-99) mg/dL POC Glucose (mg/dL) (75-99) mg/dL Hemoglobin A1c (0.0-6.0) % Plasma Lactic Acid Chinedu (0.7-2.0) mmol/L Calcium (8.4-10.2) mg/dL Phosphorus 2.2 L (2.5-4.5) mg/dL Alkaline Phosphatase (38-126) U/L Troponin I 0.077 H* (0.000-0.034) ng/mL 05/08/21 05/08/21 05/09/21 Range/Units 23:28 23:33 00:46 Sodium (137-145) mmol/L Potassium (3.5-5.1) mmol/L Carbon Dioxide (22-30) mmol/L Glucose (74-99) mg/dL POC Glucose (mg/dL) 317 H 245 H (75-99) mg/dL Hemoglobin A1c (0.0-6.0) % Plasma Lactic Acid Chinedu 6.3 H* (0.7-2.0) mmol/L Calcium (8.4-10.2) mg/dL Phosphorus (2.5-4.5) mg/dL Alkaline Phosphatase (38-126) U/L Troponin I (0.000-0.034) ng/mL 05/09/21 05/09/21 05/09/21 Range/Units 01:40 02:35 02:45 Sodium (137-145) mmol/L Potassium (3.5-5.1) mmol/L Carbon Dioxide (22-30) mmol/L Glucose (74-99) mg/dL POC Glucose (mg/dL) 215 H 164 H (75-99) mg/dL Hemoglobin A1c (0.0-6.0) % Plasma Lactic Acid Chinedu 6.7 H* (0.7-2.0) mmol/L Calcium (8.4-10.2) mg/dL Phosphorus (2.5-4.5) mg/dL Alkaline Phosphatase (38-126) U/L Troponin I (0.000-0.034) ng/mL 05/09/21 05/09/21 05/09/21 Range/Units 03:34 03:37 03:46 Sodium (137-145) mmol/L Potassium (3.5-5.1) mmol/L Carbon Dioxide (22-30) mmol/L Glucose (74-99) mg/dL POC Glucose (mg/dL) 169 H (75-99) mg/dL Hemoglobin A1c 10.7 H (0.0-6.0) % Plasma Lactic Acid Chinedu (0.7-2.0) mmol/L Calcium (8.4-10.2) mg/dL Phosphorus (2.5-4.5) mg/dL Alkaline Phosphatase (38-126) U/L Troponin I 0.139 H* (0.000-0.034) ng/mL 05/09/21 05/09/21 05/09/21 Range/Units 03:46 05:21 06:11 Sodium (137-145) mmol/L Potassium 3.0 L (3.5-5.1) mmol/L Carbon Dioxide (22-30) mmol/L Glucose 109 H (74-99) mg/dL POC Glucose (mg/dL) 143 H (75-99) mg/dL Hemoglobin A1c (0.0-6.0) % Plasma Lactic Acid Chinedu 5.5 H* (0.7-2.0) mmol/L Calcium (8.4-10.2) mg/dL Phosphorus 1.1 L (2.5-4.5) mg/dL Alkaline Phosphatase (38-126) U/L Troponin I (0.000-0.034) ng/mL 05/09/21 05/09/21 05/09/21 Range/Units 06:35 07:50 08:16 Sodium (137-145) mmol/L Potassium 3.3 L (3.5-5.1) mmol/L Carbon Dioxide 21 L (22-30) mmol/L Glucose 145 H (74-99) mg/dL POC Glucose (mg/dL) 143 H 140 H (75-99) mg/dL Hemoglobin A1c (0.0-6.0) % Plasma Lactic Acid Chinedu (0.7-2.0) mmol/L Calcium (8.4-10.2) mg/dL Phosphorus (2.5-4.5) mg/dL Alkaline Phosphatase 162 H (38-126) U/L Troponin I (0.000-0.034) ng/mL 05/09/21 05/09/21 05/09/21 Range/Units 09:33 10:55 12:15 Sodium 135 L (137-145) mmol/L Potassium (3.5-5.1) mmol/L Carbon Dioxide (22-30) mmol/L Glucose 248 H (74-99) mg/dL POC Glucose (mg/dL) 206 H 277 H (75-99) mg/dL Hemoglobin A1c (0.0-6.0) % Plasma Lactic Acid Chinedu (0.7-2.0) mmol/L Calcium 8.3 L (8.4-10.2) mg/dL Phosphorus (2.5-4.5) mg/dL Alkaline Phosphatase (38-126) U/L Troponin I (0.000-0.034) ng/mL 05/09/21 05/09/21 05/09/21 Range/Units 13:17 18:01 19:58 Sodium (137-145) mmol/L Potassium (3.5-5.1) mmol/L Carbon Dioxide (22-30) mmol/L Glucose (74-99) mg/dL POC Glucose (mg/dL) 216 H 294 H 210 H (75-99) mg/dL Hemoglobin A1c (0.0-6.0) % Plasma Lactic Acid Chinedu (0.7-2.0) mmol/L Calcium (8.4-10.2) mg/dL Phosphorus (2.5-4.5) mg/dL Alkaline Phosphatase (38-126) U/L Troponin I (0.000-0.034) ng/mL Thrombosis Risk Factor Assmnt - Choose All That Apply Any of the Below Risk Factors Present?: Yes Each Factor Represents 1 point: Abnormal pulmonary function (COPD), Obesity (BMI >25) Other Risk Factors: Yes Each Risk Factor Represents 2 Points: Age 61-74 years Other congenital or acquired thrombophilia - If yes, enter type in comment: No Thrombosis Risk Factor Assessment Total Risk Factor Score: 4 Thrombosis Risk Factor Assessment Level: Moderate Risk Assessment and Plan Plan: 1. DKA. Admit, IV fluids and insulin drip. Transition to sliding scale and levemir today. Hold metformin 2. Atrial fibrillation with RVR. Secondary to DKA. IV amiodarone. Continue home eliquis 3. Cardiomyopathy. Continue amiodarone 4. Chronic back pain. continue home percocet
[2021-05-10 06:08] LABS: Glucose,Whole Blood 150 mg/dL (75-99)
[2021-05-10] MEDS: PANTOPRAZOLE 40 MG TABLET PO SCH (06:14)
[2021-05-10] MEDS: INSULIN ASPART (NovoLOG) 100 UNIT/ML VIAL SQ SCH ×2 (06:14→13:15)
[2021-05-10] MEDS: SODIUM CHLORIDE 0.9% 1,000 ML IV SCH (06:15)
[2021-05-10] MEDS: DULoxetine HCL 60 MG CAPSULE.DR PO SCH (08:38)
[2021-05-10] MEDS: APIXABAN 5 MG TAB PO SCH (08:38)
[2021-05-10] MEDS: ASPIRIN 81 MG PO SCH (08:38)
[2021-05-10] MEDS: METOPROLOL TARTRATE 50 MG TAB PO SCH (08:38)
[2021-05-10] MEDS: GABAPENTIN 300 MG CAP PO SCH (08:38)
[2021-05-10] MEDS: oxyCODONE ER 80 MG TAB.ER.12H PO SCH (08:39)
[2021-05-10 08:47] VITALS: BP 161/92; PULSE 70; RESP 18; TEMP 98.1
[2021-05-10] MEDS ORDERED: AMIODARONE 200 MG TAB PO SCH (09:00)
[2021-05-10] MEDS ORDERED: lisinopriL 10 MG TAB PO SCH (09:00)
--- NOTE | 2021-05-10 11:01 | P.DS ---
Providers Date of admission: 05/08/21 22:18 Expected date of discharge: 05/10/21 Attending physician: Puma Lovell MD Primary care physician: Puma Lovell MD Hospital Course: Final Diagnoses: DKA Chronic Paroxysmal atrial fibrillation with RVR secondary to DKA, status post amiodarone drip. Anticoagulated on Eliquis. Cardiomyopathy Chronic back pain Hospital course:Ashok Austin is a 66 yo M with PMH of ischemic cardiomyopathy , atrial fibrillation, T2DM, chronic back pain who presented to the ED after experiencing nausea, vomiting, vertigo and weakness over the past 2 days. He denies any specific trigger for this episde, state she woke up feeling nauseated and proceeded to vomit with poor PO intake throughout the day. He does not check his sugars but states he gave himself his usual amount of insulin. He denies alcohol use. He states his symptoms worsened to the point he came to the ED. On presentation BP 198/122, HR 138, WBC 11.7, glucose 464, lactic 9.2, trop 0.053. Amiodarone drip and transitioned to oral, maintaining sinus rhythm. Anticoagulated on Eliquis. Maintained on IV fluids/DKA protocol. recent anion gap 5, bicarb 25 . Mild hypertension, IV fluids being discontinued .blood sugars improved currently in the 150s. Tolerating diet, denies nausea vomiting or diarrhea. Denies chest pain palpitations or shortness of breath.Significant clinical improvement. Patient will be discharged home after lunch pending patient continues to have no nausea or vomiting. The impression and plan of care has been dictated as directed. : I performed a history and examination of this patient, discussed the same with the dictator. I agree with the dictator's note ,documented as a scribe. Any additional findings or plans will be noted. Patient Condition at Discharge: Stable Plan - Discharge Summary Discharge Rx Participant: No New Discharge Prescriptions: New Ondansetron Odt [Zofran Odt] 4 mg PO Q8HR PRN #12 tab PRN Reason: Nausea Continue DULoxetine HCL [Cymbalta] 60 mg PO BID glipiZIDE [Glucotrol] 5 mg PO AC-BID Semaglutide [Ozempic] 0.5 mg SQ Q7D oxyCODONE HCL [oxyCODONE HCL (IR)] 15 mg PO Q8H Aspirin 81 mg PO DAILY #30 chew Apixaban [Eliquis] 5 mg PO BID #60 tab Insulin Glargine,Hum.rec.anlog [Lantus Solostar Pen] 20 unit SQ DAILY Atorvastatin [Lipitor] 40 mg PO HS oxyCODONE ER [OxyCONTIN] 80 mg PO Q12H Metoprolol Tartrate [Lopressor] 50 mg PO BID #60 tab Pantoprazole [Protonix] 40 mg PO AC-BRKFST #30 tablet. rOPINIRole HCL [Requip] 1 mg PO BID Insulin Aspart [NovoLOG Flexpen] See Protocol SQ AC-TID metFORMIN HCL [Glucophage] 1,000 mg PO BID Amiodarone [Cordarone] 200 mg PO DAILY Gabapentin [Neurontin] 300 mg PO BID lisinopriL [Prinivil] 10 mg PO DAILY #1 tablet Montelukast [Singulair] 10 mg PO HS #30 tab Lactulose [Cephulac] 20 gm PO DAILY PRN PRN Reason: Constipation Albuterol Sulfate [Albuterol Sulfate Hfa] 2 puff INHALATION RT-QID PRN PRN Reason: Shortness Of Breath Discharge Medication List DULoxetine HCL [Cymbalta] 60 mg PO BID 11/16/19 [History] Semaglutide [Ozempic] 0.5 mg SQ Q7D 11/16/19 [History] glipiZIDE [Glucotrol] 5 mg PO AC-BID 11/16/19 [History] oxyCODONE HCL [oxyCODONE HCL (IR)] 15 mg PO Q8H 03/01/20 [History] Aspirin 81 mg PO DAILY #30 chew 04/10/20 [Rx] Apixaban [Eliquis] 5 mg PO BID #60 tab 10/02/20 [Rx] Metoprolol Tartrate [Lopressor] 50 mg PO BID #60 tab 10/02/20 [Rx] Pantoprazole [Protonix] 40 mg PO AC-BRKFST #30 tablet. 10/02/20 [Rx] Amiodarone [Cordarone] 200 mg PO DAILY 01/31/21 [History] Atorvastatin [Lipitor] 40 mg PO HS 01/31/21 [History] Insulin Aspart [NovoLOG Flexpen] See Protocol SQ AC-TID 01/31/21 [History] Insulin Glargine,Hum.rec.anlog [Lantus Solostar Pen] 20 unit SQ DAILY 01/31/21 [History] metFORMIN HCL [Glucophage] 1,000 mg PO BID 01/31/21 [History] oxyCODONE ER [OxyCONTIN] 80 mg PO Q12H 01/31/21 [History] rOPINIRole HCL [Requip] 1 mg PO BID 01/31/21 [History] Gabapentin [Neurontin] 300 mg PO BID 02/06/21 [History] lisinopriL [Prinivil] 10 mg PO DAILY #1 tablet 02/11/21 [Rx] Montelukast [Singulair] 10 mg PO HS #30 tab 03/19/21 [Rx] Albuterol Sulfate [Albuterol Sulfate Hfa] 2 puff INHALATION RT-QID PRN 05/08/21 [History] Lactulose [Cephulac] 20 gm PO DAILY PRN 05/08/21 [History] Ondansetron Odt [Zofran Odt] 4 mg PO Q8HR PRN #12 tab 05/10/21 [Rx] Follow up Appointment(s)/Referral(s): Puma Lovell MD [Primary Care Provider] - 3 Days [facility], [NON-STAFF] -
[2021-05-10 11:48] LABS: Glucose,Whole Blood 132 mg/dL (75-99)
[2021-05-10 14:55] VITALS: BMI 26.2
== END 2021-05-10 14:28 | disposition home or self-care (01) | DRG 639 ==
LOC: EC 19:48 → 3SCARD 22:18
PROVIDERS: ADMIT Family Medicine; ATTEND Family Medicine
DX: E11.10 Type 2 diabetes mellitus with ketoacidosis without coma (principal); I48.91 Unspecified atrial fibrillation; Z79.4 Long term (current) use of insulin; Z20.822 Contact with and (suspected) exposure to COVID-19; I25.10 Atherosclerotic heart disease of native coronary artery without angina pectoris; I44.7 Left bundle-branch block, unspecified; E78.5 Hyperlipidemia, unspecified; I48.0 Paroxysmal atrial fibrillation; I10 Essential (primary) hypertension; I25.5 Ischemic cardiomyopathy; K21.9 Gastro-esophageal reflux disease without esophagitis; G89.29 Other chronic pain; M54.50 Low back pain, unspecified; I25.2 Old myocardial infarction; Z95.5 Presence of coronary angioplasty implant and graft; Z95.1 Presence of aortocoronary bypass graft; Z79.899 Other long term (current) drug therapy; Z79.82 Long term (current) use of aspirin; Z79.01 Long term (current) use of anticoagulants; Z82.49 Family history of ischemic heart disease and other diseases of the circulatory system; Z83.3 Family history of diabetes mellitus; Z86.718 Personal history of other venous thrombosis and embolism; Z87.891 Personal history of nicotine dependence; Z87.440 Personal history of urinary (tract) infections
CPT/HCPCS: 36415; 36600; 70450; 71045; 80048; 80051; 80053; 81001; 82009; 82565; 82805; 82947; 83036; 83605; 83690; 83735; 83880; 84100; 84484; 84520; 85025; 85610; 85730; 87635; 93005; 96361; 96374; 99285

== ENCOUNTER 2021-07-29 14:41 | Emergency (ER) | payer MEDICARE, OTHER ==
[2021-07-29 15:04] VITALS: TEMP 98.8
[2021-07-29 15:25] VITALS: RESP 16
[2021-07-29 15:35] LABS: Anisocytosis Slight; Basophils % (A) 0 %; Eosinophils # (A) 0.2 k/uL (0-0.7); Eosinophils % (A) 2 %; HCT 41.5 % (39.0-53.0); HGB 13.1 gm/dL (13.0-17.5); Lymphocytes # (A) 1.1 k/uL (1.0-4.8); Lymphocytes % (A) 14 %; MCH 28.7 pg (25.0-35.0); MCHC 31.6 g/dL (31.0-37.0); MCV 90.8 fL (80.0-100.0); Mean Platelet Volume 6.8; Monocytes # (A) 0.5 k/uL (0-1.0); Monocytes % (A) 6 %; Neutrophils % (A) 76 %; Platelet Count 291 k/uL (150-450); RBC 4.57 m/uL (4.30-5.90); RDW 16.7 % (11.5-15.5); WBC 7.8 k/uL (3.8-10.6)
[2021-07-29] MEDS ORDERED: KETOROLAC 15 MG/ML 1 ML VIAL IVP STA (15:40)
[2021-07-29 15:43] LABS: INR 0.8 (<1.2); Partial Thromboplastin Time 26.6 sec (22.0-30.0); Prothrombin Time 9.5 sec (9.0-12.0)
--- NOTE | 2021-07-29 15:43 | ED ---
General Adult HPI - General Chief complaint: Shortness of Breath Stated complaint: SOB Time Seen by Provider: 07/29/21 15:00 Source: patient, EMS, RN notes reviewed, old records reviewed Mode of arrival: EMS Limitations: no limitations - History of Present Illness Initial comments: This is a 66-year-old male presents emergency Department complaining of shortness of breath per patient states it started at 3 AM this morning and it subsided upon arrival to our emergency department. Patient states he never had any chest pain or palpitations. Patient denies any shortness of breath currently. Patient states he really called EMS because of his lower leg pain bilaterally. Patient states he has chronic back pain and lower leg pain he states it comes and goes and today it came he took his OxyContin he actually put on a fentanyl patch that someone gave him and he states he still has pain so he came to the emergency department. Patient denies any new numbness or weakness. Patient denies any recent injury or trauma. Patient denies any problem with urination either incontinence or retention. Patient denies any other problems at this time. Patient states he is not concerned about the shortness of breath he states that seemed to resolve as soon as he was allowed to sit up in bed. Patient denies any recent fever chills or cough. Patient's only complaint currently is that he has lower leg pain bilaterally again he states it's the same pain he always gets but it's just a little worse because the pain meds aren't helping. - Related Data Home Medications Medication Instructions Recorded Confirmed DULoxetine HCL [Cymbalta] 60 mg PO BID 11/16/19 05/08/21 Semaglutide [Ozempic] 0.5 mg SQ Q7D 11/16/19 05/08/21 glipiZIDE [Glucotrol] 5 mg PO AC-BID 11/16/19 05/08/21 oxyCODONE HCL [oxyCODONE HCL (IR)] 15 mg PO Q8H 03/01/20 05/08/21 Amiodarone [Cordarone] 200 mg PO DAILY 01/31/21 05/08/21 Atorvastatin [Lipitor] 40 mg PO HS 01/31/21 05/08/21 Insulin Aspart [NovoLOG Flexpen] See Protocol SQ AC-TID 01/31/21 05/08/21 Insulin Glargine,Hum.rec.anlog 20 unit SQ DAILY 01/31/21 05/08/21 [Lantus Solostar Pen] metFORMIN HCL [Glucophage] 1,000 mg PO BID 01/31/21 05/08/21 oxyCODONE ER [OxyCONTIN] 80 mg PO Q12H 01/31/21 05/08/21 rOPINIRole HCL [Requip] 1 mg PO BID 01/31/21 05/08/21 Gabapentin [Neurontin] 300 mg PO BID 02/06/21 05/08/21 Albuterol Sulfate [Albuterol 2 puff INHALATION RT-QID PRN 05/08/21 05/08/21 Sulfate Hfa] Lactulose [Cephulac] 20 gm PO DAILY PRN 05/08/21 05/08/21 Previous Rx's Medication Instructions Recorded Aspirin 81 mg PO DAILY #30 chew 04/10/20 Apixaban [Eliquis] 5 mg PO BID #60 tab 10/02/20 Metoprolol Tartrate [Lopressor] 50 mg PO BID #60 tab 10/02/20 Pantoprazole [Protonix] 40 mg PO AC-BRKFST #30 tablet. 10/02/20 lisinopriL [Prinivil] 10 mg PO DAILY #1 tablet 02/11/21 Montelukast [Singulair] 10 mg PO HS #30 tab 03/19/21 Ondansetron Odt [Zofran Odt] 4 mg PO Q8HR PRN #12 tab 05/10/21 Allergies Allergy/AdvReac Type Severity Reaction Status Date / Time No Known Allergies Allergy Verified 07/29/21 15:04 Review of Systems ROS Statement: Those systems with pertinent positive or pertinent negative responses have been documented in the HPI. ROS Other: All systems not noted in ROS Statement are negative. Past Medical History Past Medical History: Atrial Fibrillation, Coronary Artery Disease (CAD), Chest Pain / Angina, Diabetes Mellitus, GERD/Reflux, Hyperlipidemia, Hypertension, Myocardial Infarction ([place]) Additional Past Medical History / Comment(s): Pt had CABG 07/2019 and had post op Afib/UTI with pseudomonas aeruginosa, ischemic cardiomyopathy, IDDM type II, past R scrotal abscess with sepsis, chronic lower back pain and bilateral leg pain, Last Myocardial Infarction Date:: 03/20/15 History of Any Multi-Drug Resistant Organisms: None Reported Past Surgical History: Back Surgery, Coronary Bypass/CABG, Heart Catheterization, Heart Catheterization With Stent, Orthopedic Surgery Additional Past Surgical History / Comment(s): 08/23/2019 CABG 3 vessels, PCI with total of 5 stents, L ankle ligament repair, R leg ORIF, low back surgery, colonoscopy. Past Anesthesia/Blood Transfusion Reactions: No Reported Reaction Additional Past Anesthesia/Blood Transfusion Reaction / Comment(s): Pt has received blood in past without reaction. Date of Last Stent Placement:: 02/2015 Past Psychological History: No Psychological Hx Reported Smoking Status: Former smoker Past Alcohol Use History: None Reported Past Drug Use History: Marijuana - Past Family History Sister(s) Family Medical History: Coronary Artery Disease (CAD), Hypertension Father Family Medical History: Coronary Artery Disease (CAD), Diabetes Mellitus, Deep Vein Thrombosis (DVT), Hypertension Additional Family Medical History / Comment(s): Father at age 58yrs. He of blood clot from leg injury that went to his heart. General Exam - General Exam Comments Initial Comments: GENERAL: Patient is well-developed and well-nourished. Patient is nontoxic and well- hydrated and is in no acute distress. ENT: Neck is soft and supple. No significant lymphadenopathy is noted. Oropharynx is clear. Moist mucous membranes. Neck has full range of motion without eliciting any pain. EYES: The sclera were anicteric and conjunctiva were pink and moist. Extraocular movements were intact and pupils were equal round and reactive to light. Eyelids were unremarkable. PULMONARY: Unlabored respirations. Good breath sounds bilaterally. No audible rales rhonchi or wheezing was noted. CARDIOVASCULAR: There is a regular rate and rhythm without any murmurs gallops or rubs. ABDOMEN: Soft and nontender with normal bowel sounds. SKIN: Skin is clear with no lesions or rashes and otherwise unremarkable. NEUROLOGIC: Patient is alert and oriented x3. Cranial nerves II through XII are grossly intact. Motor and sensory are also intact. Normal speech, volume and content. Symmetrical smile. Patient's straight leg test bilaterally is normal he raises both legs to at least 60 without problem. Patient's perineum sensation is normal MUSCULOSKELETAL: Normal extremities with adequate strength and full range of motion. LYMPHATICS: No significant lymphadenopathy is noted PSYCHIATRIC: Normal psychiatric evaluation. Limitations: no limitations Course Vital Signs 07/29/21 07/29/21 07/29/21 14:59 15:22 16:03 Temperature 98.8 F Pulse Rate 68 62 Respiratory 18 16 16 Rate Blood Pressure 185/100 158/100 O2 Sat by Pulse 97 97 Oximetry Medical Decision Making - Medical Decision Making Patient's EKG shows sinus rhythm at 60 bpm [place] interval is 220 QRS is 122 QT interval 443 QTC is 461. Patient's EKG shows no ST segment elevation or depression. I'll begin the room to reevaluate the patient he was playing on the phone and oxygenating at 96%. Patient is eating and drinking emergency Department states he feels much better after I gave him pain medications. Patient will follow-up with his primary medical care doctor. - Lab Data Result diagrams: 07/29/21 15:27 07/29/21 15:27 Lab Results 07/29/21 07/29/21 07/29/21 Range/Units 15:27 15:27 15:27 WBC 7.8 (3.8-10.6) k/uL RBC 4.57 (4.30-5.90) m/uL Hgb 13.1 (13.0-17.5) gm/dL Hct 41.5 (39.0-53.0) % MCV 90.8 (80.0-100.0) fL MCH 28.7 (25.0-35.0) pg MCHC 31.6 (31.0-37.0) g/dL RDW 16.7 H (11.5-15.5) % Plt Count 291 (150-450) k/uL MPV 6.8 Neutrophils % 76 % Lymphocytes % 14 % Monocytes % 6 % Eosinophils % 2 % Basophils % 0 % Neutrophils # 6.0 (1.3-7.7) k/uL Lymphocytes # 1.1 (1.0-4.8) k/uL Monocytes # 0.5 (0-1.0) k/uL Eosinophils # 0.2 (0-0.7) k/uL Basophils # 0.0 (0-0.2) k/uL Anisocytosis Slight PT 9.5 (9.0-12.0) sec INR 0.8 (<1.2) APTT 26.6 (22.0-30.0) sec Sodium 133 L (137-145) mmol/L Potassium 4.2 (3.5-5.1) mmol/L Chloride 100 (98-107) mmol/L Carbon Dioxide 27 (22-30) mmol/L Anion Gap 6 mmol/L BUN 17 (9-20) mg/dL Creatinine 0.70 (0.66-1.25) mg/dL Est GFR (CKD-EPI)AfAm >90 (>60 ml/min/1.73 sqM) Est GFR (CKD-EPI)NonAf >90 (>60 ml/min/1.73 sqM) Glucose 367 H (74-99) mg/dL Calcium 8.3 L (8.4-10.2) mg/dL Total Bilirubin 0.4 (0.2-1.3) mg/dL AST 43 (17-59) U/L ALT 26 (4-49) U/L Alkaline Phosphatase 109 (38-126) U/L Troponin I (0.000-0.034) ng/mL NT-Pro-B Natriuret Pep pg/mL Total Protein 5.8 L (6.3-8.2) g/dL Albumin 3.1 L (3.5-5.0) g/dL 07/29/21 07/29/21 Range/Units 15:27 15:27 WBC (3.8-10.6) k/uL RBC (4.30-5.90) m/uL Hgb (13.0-17.5) gm/dL Hct (39.0-53.0) % MCV (80.0-100.0) fL MCH (25.0-35.0) pg MCHC (31.0-37.0) g/dL RDW (11.5-15.5) % Plt Count (150-450) k/uL MPV Neutrophils % % Lymphocytes % % Monocytes % % Eosinophils % % Basophils % % Neutrophils # (1.3-7.7) k/uL Lymphocytes # (1.0-4.8) k/uL Monocytes # (0-1.0) k/uL Eosinophils # (0-0.7) k/uL Basophils # (0-0.2) k/uL Anisocytosis PT (9.0-12.0) sec INR (<1.2) APTT (22.0-30.0) sec Sodium (137-145) mmol/L Potassium (3.5-5.1) mmol/L Chloride (98-107) mmol/L Carbon Dioxide (22-30) mmol/L Anion Gap mmol/L BUN (9-20) mg/dL Creatinine (0.66-1.25) mg/dL Est GFR (CKD-EPI)AfAm (>60 ml/min/1.73 sqM) Est GFR (CKD-EPI)NonAf (>60 ml/min/1.73 sqM) Glucose (74-99) mg/dL Calcium (8.4-10.2) mg/dL Total Bilirubin (0.2-1.3) mg/dL AST (17-59) U/L ALT (4-49) U/L Alkaline Phosphatase (38-126) U/L Troponin I 0.015 (0.000-0.034) ng/mL NT-Pro-B Natriuret Pep 2660 pg/mL Total Protein (6.3-8.2) g/dL Albumin (3.5-5.0) g/dL Disposition Clinical Impression: Chronic lower back pain Disposition: HOME SELF-CARE Is patient prescribed a controlled substance at d/c from ED?: No Referrals: Puma Lovell MD [Primary Care Provider] - 1-2 days Time of Disposition: 17:32
[2021-07-29 16:03] LABS: ALT 26 U/L (4-49); AST 43 U/L (17-59); African American GFR (CKD) >90 (>60 ml/min/1.73 sqM); Albumin 3.1 g/dL (3.5-5.0); Alkaline Phosphatase 109 U/L (38-126); Anion Gap 6 mmol/L; Blood Urea Nitrogen 17 mg/dL (9-20); Calcium 8.3 mg/dL (8.4-10.2); Carbon Dioxide 27 mmol/L (22-30); Chloride 100 mmol/L (98-107); Glucose 367 mg/dL (74-99); Non-African American GFR(CKD) >90 (>60 ml/min/1.73 sqM); Potassium 4.2 mmol/L (3.5-5.1); Sodium 133 mmol/L (137-145); Total Bilirubin 0.4 mg/dL (0.2-1.3); Total Protein 5.8 g/dL (6.3-8.2)
--- NOTE | 2021-07-29 16:04 | XR ---
EXAMINATION TYPE: XR chest 2V DATE OF EXAM: 07/29/2021 COMPARISON: Chest x-ray 05/08/2021 HISTORY: Difficulty breathing TECHNIQUE: Frontal and lateral views of the chest are obtained. FINDINGS: There is no focal air space opacity, pleural effusion, or pneumothorax seen. The cardiac silhouette size is within normal limits. Patient is post median sternotomy. Technique is somewhat api stefanie lordotic and rotated. The osseous structures are intact. IMPRESSION: No acute cardiopulmonary process.
[2021-07-29] MEDS ORDERED: ONDANSETRON ODT 4 MG TAB PO STA (17:07)
[2021-07-29 17:51] VITALS: BP 160/93; PULSE 87
== END 2021-07-29 17:51 | disposition home or self-care (01) ==
LOC: EC 14:41
DX: G89.29 Other chronic pain (principal); M54.50 Low back pain, unspecified; E11.9 Type 2 diabetes mellitus without complications; I10 Essential (primary) hypertension; E78.5 Hyperlipidemia, unspecified; I25.10 Atherosclerotic heart disease of native coronary artery without angina pectoris; I25.2 Old myocardial infarction; I48.91 Unspecified atrial fibrillation; K21.9 Gastro-esophageal reflux disease without esophagitis; F12.90 Cannabis use, unspecified, uncomplicated; Z79.01 Long term (current) use of anticoagulants; Z79.4 Long term (current) use of insulin; Z79.82 Long term (current) use of aspirin; Z79.84 Long term (current) use of oral hypoglycemic drugs; Z79.899 Other long term (current) drug therapy; Z87.891 Personal history of nicotine dependence; Z95.1 Presence of aortocoronary bypass graft
CPT/HCPCS: 36415; 93005; 83880; 80053; 84484; 85025; 85610; 85730; 71046; 99284; 96374; J1885

== ENCOUNTER 2021-09-10 19:44 | Inpatient (IN) | payer MEDICARE, OTHER ==
[2021-09-11] MEDS ORDERED: ONDANSETRON 4 MG/2 ML VIAL IVP STA (00:58)
[2021-09-11] MEDS ORDERED: SODIUM CHLORIDE 0.9% 1,000 ML IV STA (00:58)
--- NOTE | 2021-09-11 01:02 | ED ---
General Adult HPI - General Chief complaint: Nausea/Vomiting/Diarrhea Stated complaint: Fall-head pain,High BP, Time Seen by Provider: 09/11/21 00:13 Source: patient, RN notes reviewed Mode of arrival: ambulatory Limitations: no limitations - History of Present Illness Initial comments: 66-year-old male presents to the emergency department for evaluation of nausea, onset 3 hours prior to arrival. Patient states he had one very small episode of vomiting prior to arrival. Denies any chest pain or abdominal pain to accompany symptoms. States he ran out of his BP medication yesterday and has not had his Metoprolol today. States he tripped and fell landing on his knees earlier today. Denies any injury to his head. States his knees are fine and declines xray. No fever, chills, headache, dizziness, chest pain, abdominal pain, diarrhea, constipation, dysuria, or hematuria. - Related Data Home Medications Medication Instructions Recorded Confirmed DULoxetine HCL [Cymbalta] 60 mg PO BID 11/16/19 05/08/21 Semaglutide [Ozempic] 0.5 mg SQ Q7D 11/16/19 05/08/21 glipiZIDE [Glucotrol] 5 mg PO AC-BID 11/16/19 05/08/21 oxyCODONE HCL [oxyCODONE HCL (IR)] 15 mg PO Q8H 03/01/20 05/08/21 Amiodarone [Cordarone] 200 mg PO DAILY 01/31/21 05/08/21 Atorvastatin [Lipitor] 40 mg PO HS 01/31/21 05/08/21 Insulin Aspart [NovoLOG Flexpen] See Protocol SQ AC-TID 01/31/21 05/08/21 Insulin Glargine,Hum.rec.anlog 20 unit SQ DAILY 01/31/21 05/08/21 [Lantus Solostar Pen] metFORMIN HCL [Glucophage] 1,000 mg PO BID 01/31/21 05/08/21 oxyCODONE ER [OxyCONTIN] 80 mg PO Q12H 01/31/21 05/08/21 rOPINIRole HCL [Requip] 1 mg PO BID 01/31/21 05/08/21 Gabapentin [Neurontin] 300 mg PO BID 02/06/21 05/08/21 Albuterol Sulfate [Albuterol 2 puff INHALATION RT-QID PRN 05/08/21 05/08/21 Sulfate Hfa] Lactulose [Cephulac] 20 gm PO DAILY PRN 05/08/21 05/08/21 Previous Rx's Medication Instructions Recorded Aspirin 81 mg PO DAILY #30 chew 04/10/20 Apixaban [Eliquis] 5 mg PO BID #60 tab 10/02/20 Metoprolol Tartrate [Lopressor] 50 mg PO BID #60 tab 10/02/20 Pantoprazole [Protonix] 40 mg PO AC-BRKFST #30 tablet. 10/02/20 lisinopriL [Prinivil] 10 mg PO DAILY #1 tablet 02/11/21 Montelukast [Singulair] 10 mg PO HS #30 tab 03/19/21 Ondansetron Odt [Zofran Odt] 4 mg PO Q8HR PRN #12 tab 05/10/21 Allergies Allergy/AdvReac Type Severity Reaction Status Date / Time No Known Allergies Allergy Verified 09/10/21 19:51 Review of Systems ROS Statement: Those systems with pertinent positive or pertinent negative responses have been documented in the HPI. ROS Other: All systems not noted in ROS Statement are negative. Past Medical History Past Medical History: Atrial Fibrillation, Coronary Artery Disease (CAD), Chest Pain / Angina, Diabetes Mellitus, GERD/Reflux, Hyperlipidemia, Hypertension, Myocardial Infarction ([place]) Additional Past Medical History / Comment(s): Pt had CABG 07/2019 and had post op Afib/UTI with pseudomonas aeruginosa, ischemic cardiomyopathy, IDDM type II, past R scrotal abscess with sepsis, chronic lower back pain and bilateral leg pain, Last Myocardial Infarction Date:: 03/20/15 History of Any Multi-Drug Resistant Organisms: None Reported Past Surgical History: Back Surgery, Coronary Bypass/CABG, Heart Catheterization, Heart Catheterization With Stent, Orthopedic Surgery Additional Past Surgical History / Comment(s): 08/23/2019 CABG 3 vessels, PCI with total of 5 stents, L ankle ligament repair, R leg ORIF, low back surgery, colonoscopy. Past Anesthesia/Blood Transfusion Reactions: No Reported Reaction Additional Past Anesthesia/Blood Transfusion Reaction / Comment(s): Pt has received blood in past without reaction. Date of Last Stent Placement:: 02/2015 Past Psychological History: No Psychological Hx Reported Smoking Status: Former smoker Past Alcohol Use History: None Reported Past Drug Use History: Marijuana - Past Family History Sister(s) Family Medical History: Coronary Artery Disease (CAD), Hypertension Father Family Medical History: Coronary Artery Disease (CAD), Diabetes Mellitus, Deep Vein Thrombosis (DVT), Hypertension Additional Family Medical History / Comment(s): Father at age 58yrs. He of blood clot from leg injury that went to his heart. General Exam Limitations: no limitations General appearance: alert, in no apparent distress (Well-developed, well- nourished, somewhat ill appearing male in no acute distress. Initial temperature 98.9, pulse 70, respirations 18, blood pressure 184/82, pulse ox 95% on room air.) Eye exam: Present: normal appearance, PERRL, EOMI. Absent: scleral icterus, conjunctival injection, periorbital swelling ENT exam: Present: normal exam, normal oropharynx, mucous membranes moist Respiratory exam: Present: normal lung sounds bilaterally. Absent: respiratory distress, wheezes, rales, rhonchi, stridor, chest wall tenderness Cardiovascular Exam: Present: regular rate, normal rhythm, normal heart sounds. Absent: systolic murmur, diastolic murmur, rubs, gallop, clicks GI/Abdominal exam: Present: soft, normal bowel sounds. Absent: distended, tenderness, guarding, rebound, rigid Back exam: Absent: CVA tenderness (R), CVA tenderness (L) Neurological exam: Present: alert, oriented X3 Psychiatric exam: Present: normal affect, normal mood Skin exam: Present: warm, dry, normal color, other (Small superficial abrasions that appear to be scabbed over on bilateral lower extremities. Patient states he has had some falls at home but denies any injuries or pain.) Course Vital Signs 09/10/21 09/11/21 19:48 02:42 Temperature 98.9 F 98.1 F Pulse Rate 70 60 Respiratory 18 18 Rate Blood Pressure 184/82 187/89 O2 Sat by Pulse 95 97 Oximetry - Reevaluation(s) Reevaluation #1: 09/11/21 03:00 Upon reassessment, patient is resting more comfortably. States his nausea is improved. Pressure remains elevated therefore will be given a dose of his metoprolol. Laboratory studies are pending due to difficulty gaining IV access. 09/11/21 04:30 This patient's care was discussed my attending, Dr. Ibrahim, who will facilitate admission to the hospital for further evaluation and treatment. Medical Decision Making - Medical Decision Making 66-year-old male with a past medical history of atrial fibrillation, coronary artery disease, diabetes, and hypertension presents to the emergency department for evaluation of nausea 3 hours and one small episode of vomiting. Upon exam, patient is ill appearing but in no acute distress. Abdomen is soft and nontender. Lung sounds are clear to auscultation. He has scattered abrasions in various stages of healing on his lower extremities due to multiple falls. Vital signs are stable with the exception of an elevated blood pressure for which he was given his missed dose of metoprolol. EKG was obtained and appears baseline for patient. Laboratory studies were reviewed showing mild leukocytosis, elevated liver enzymes, and an elevated troponin. This patient's care was discussed with my attending, Dr. Ibrahim, who will facilitate hospital admission for this patient. Patient is agreeable with this plan of care. - Lab Data Result diagrams: 09/11/21 02:41 09/11/21 02:41 Lab Results 09/11/21 09/11/21 09/11/21 Range/Units 02:17 02:17 02:41 WBC 12.2 H (3.8-10.6) k/uL RBC 4.23 L (4.30-5.90) m/uL Hgb 12.1 L (13.0-17.5) gm/dL Hct 39.2 (39.0-53.0) % MCV 92.6 (80.0-100.0) fL MCH 28.5 (25.0-35.0) pg MCHC 30.8 L (31.0-37.0) g/dL RDW 15.2 (11.5-15.5) % Plt Count 281 (150-450) k/uL MPV 7.2 Neutrophils % 84 % Lymphocytes % 7 % Monocytes % 7 % Eosinophils % 1 % Basophils % 0 % Neutrophils # 10.2 H (1.3-7.7) k/uL Lymphocytes # 0.9 L (1.0-4.8) k/uL Monocytes # 0.8 (0-1.0) k/uL Eosinophils # 0.1 (0-0.7) k/uL Basophils # 0.1 (0-0.2) k/uL Sodium (137-145) mmol/L Potassium (3.5-5.1) mmol/L Chloride (98-107) mmol/L Carbon Dioxide (22-30) mmol/L Anion Gap mmol/L BUN (9-20) mg/dL Creatinine (0.66-1.25) mg/dL Est GFR (CKD-EPI)AfAm (>60 ml/min/1.73 sqM) Est GFR (CKD-EPI)NonAf (>60 ml/min/1.73 sqM) Glucose (74-99) mg/dL Calcium (8.4-10.2) mg/dL Total Bilirubin (0.2-1.3) mg/dL AST (17-59) U/L ALT (4-49) U/L Alkaline Phosphatase (38-126) U/L Troponin I (0.000-0.034) ng/mL Total Protein (6.3-8.2) g/dL Albumin (3.5-5.0) g/dL Lipase (23-300) U/L Urine Color Yellow Urine Appearance Clear (Clear) Urine pH 7.0 (5.0-8.0) Ur Specific Brandon 1.013 (1.001-1.035) Urine Protein 2+ H (Negative) Urine Glucose (UA) 3+ H (Negative) Urine Ketones 1+ H (Negative) Urine Blood Trace H (Negative) Urine Nitrite Negative (Negative) Urine Bilirubin Negative (Negative) Urine Urobilinogen 2.0 (<2.0) mg/dL Ur Leukocyte Esterase Negative (Negative) Urine RBC 3 (0-5) /hpf Coronavirus (PCR) Not Detected (Not Detectd) 09/11/21 09/11/21 Range/Units 02:41 02:41 WBC (3.8-10.6) k/uL RBC (4.30-5.90) m/uL Hgb (13.0-17.5) gm/dL Hct (39.0-53.0) % MCV (80.0-100.0) fL MCH (25.0-35.0) pg MCHC (31.0-37.0) g/dL RDW (11.5-15.5) % Plt Count (150-450) k/uL MPV Neutrophils % % Lymphocytes % % Monocytes % % Eosinophils % % Basophils % % Neutrophils # (1.3-7.7) k/uL Lymphocytes # (1.0-4.8) k/uL Monocytes # (0-1.0) k/uL Eosinophils # (0-0.7) k/uL Basophils # (0-0.2) k/uL Sodium 134 L (137-145) mmol/L Potassium 4.4 (3.5-5.1) mmol/L Chloride 101 (98-107) mmol/L Carbon Dioxide 27 (22-30) mmol/L Anion Gap 6 mmol/L BUN 17 (9-20) mg/dL Creatinine 0.72 (0.66-1.25) mg/dL Est GFR (CKD-EPI)AfAm >90 (>60 ml/min/1.73 sqM) Est GFR (CKD-EPI)NonAf >90 (>60 ml/min/1.73 sqM) Glucose 186 H (74-99) mg/dL Calcium 8.0 L (8.4-10.2) mg/dL Total Bilirubin 1.2 (0.2-1.3) mg/dL AST 83 H (17-59) U/L ALT 57 H (4-49) U/L Alkaline Phosphatase 311 H (38-126) U/L Troponin I 0.146 H* (0.000-0.034) ng/mL Total Protein 5.6 L (6.3-8.2) g/dL Albumin 2.9 L (3.5-5.0) g/dL Lipase 12 L (23-300) U/L Urine Color Urine Appearance (Clear) Urine pH (5.0-8.0) Ur Specific Brandon (1.001-1.035) Urine Protein (Negative) Urine Glucose (UA) (Negative) Urine Ketones (Negative) Urine Blood (Negative) Urine Nitrite (Negative) Urine Bilirubin (Negative) Urine Urobilinogen (<2.0) mg/dL Ur Leukocyte Esterase (Negative) Urine RBC (0-5) /hpf Coronavirus (PCR) (Not Detectd) - EKG Data EKG shows normal: sinus rhythm Rate: normal EKG Comments: EKG obtained at 01:09 shows sinus rhythm with occasional ventricular premature complexes, left anterior fascicular block, and prolonged QT interval. Ventricular rate 65, NJ interval 207, QRS duration 122, QT/QTc 464/475. Interpretation abnormal ECG. No significant changes when compared to previous EKGs. - Radiology Data Radiology results: report reviewed, image reviewed KUB x-ray was obtained. Report was reviewed in its entirety. Impression per Dr. Cedillo is nonacute abdomen. No adverse change. Mild pleural reaction and fluid at the lung bases appeared new compared to old exam. Disposition Clinical Impression: NSTEMI (non-ST elevated myocardial infarction), Nausea, Elevated troponin Disposition: ADMITTED IP TO THIS HOSP Condition: Serious Referrals: Puma Lovell MD [Primary Care Provider] - 1-2 days Decision Date: 09/11/21 Decision Time: 04:33
--- NOTE | 2021-09-11 02:17 | XR ---
EXAMINATION TYPE: XR KUB DATE OF EXAM: 09/11/2021 COMPARISON: 03/10/2021 HISTORY: Abdominal pain TECHNIQUE: 2 views upright FINDINGS: There is some blunting of the costophrenic angles. No sign of intestinal obstruction or pne umoperitoneum. Fecal pattern is fairly normal. There are small calcifications over the upper pole lef t kidney. These apparently are vascular and present on the old abdomen CT scan of 03/14/2021. IMPRESSION: Nonacute abdomen. No adverse change. Mild pleural reaction and fluid at the lung bases appears new compared to old exam.
[2021-09-11 02:44] LABS: Appearance,Urine Clear (Clear); Bilirubin,Urine Negative (Negative); Blood,Urine Trace (Negative); Color,Urine Yellow; Glucose,Urine (UA) 3+ (Negative); Ketones,Urine 1+ (Negative); Leukocyte Esterase,Urine Negative (Negative); Nitrite,Urine Negative (Negative); Protein,Urine 2+ (Negative); RBC,Urine 3 /hpf (0-5); Specific Gravity,Urine 1.013 (1.001-1.035)
[2021-09-11 02:57] LABS: Basophils # (A) 0.1 k/uL (0-0.2); Basophils % (A) 0 %; Eosinophils # (A) 0.1 k/uL (0-0.7); Eosinophils % (A) 1 %; HCT 39.2 % (39.0-53.0); HGB 12.1 gm/dL (13.0-17.5); Lymphocytes # (A) 0.9 k/uL (1.0-4.8); Lymphocytes % (A) 7 %; MCH 28.5 pg (25.0-35.0); MCHC 30.8 g/dL (31.0-37.0); MCV 92.6 fL (80.0-100.0); Mean Platelet Volume 7.2; Monocytes # (A) 0.8 k/uL (0-1.0); Monocytes % (A) 7 %; Neutrophils # (A) 10.2 k/uL (1.3-7.7); Neutrophils % (A) 84 %; Platelet Count 281 k/uL (150-450); RBC 4.23 m/uL (4.30-5.90); RDW 15.2 % (11.5-15.5); WBC 12.2 k/uL (3.8-10.6)
[2021-09-11] MEDS ORDERED: METOPROLOL TARTRATE 50 MG TAB PO STA (03:16)
[2021-09-11 03:22] LABS: ALT 57 U/L (4-49); AST 83 U/L (17-59); African American GFR (CKD) >90 (>60 ml/min/1.73 sqM); Albumin 2.9 g/dL (3.5-5.0); Alkaline Phosphatase 311 U/L (38-126); Anion Gap 6 mmol/L; Blood Urea Nitrogen 17 mg/dL (9-20); Carbon Dioxide 27 mmol/L (22-30); Chloride 101 mmol/L (98-107); Glucose 186 mg/dL (74-99); Lipase 12 U/L (23-300); Non-African American GFR(CKD) >90 (>60 ml/min/1.73 sqM); Potassium 4.4 mmol/L (3.5-5.1); Sodium 134 mmol/L (137-145); Total Bilirubin 1.2 mg/dL (0.2-1.3); Total Protein 5.6 g/dL (6.3-8.2)
[2021-09-11] MEDS ORDERED: NALOXONE 0.4 MG/ML 1 ML VIAL IV PRN (04:33)
[2021-09-11] MEDS ORDERED: ONDANSETRON 4 MG/2 ML VIAL IVP PRN (04:33)
[2021-09-11] MEDS ORDERED: ACETAMINOPHEN TAB 325 MG TAB PO PRN (04:33)
[2021-09-11] MEDS ORDERED: MORPHINE SULFATE 4 MG/ML SYRINGE IV PRN (04:33)
--- NOTE | 2021-09-11 05:03 | XR ---
EXAMINATION TYPE: XR chest 1V DATE OF EXAM: 09/11/2021 COMPARISON: 07/29/2021 HISTORY: Short of breath TECHNIQUE: Single view FINDINGS: There is some pulmonary interstitial edema. There are sternal wires. Heart is enlarged. The re are chest leads. Costophrenic angles are fairly clear. IMPRESSION: There are some pulmonary edema that could be acute heart failure and appears new compared to old exam.
[2021-09-11] MEDS: SODIUM CHLORIDE 0.9% 1,000 ML IV SCH ×2 (05:06→17:50)
[2021-09-11] MEDS ORDERED: IPRATROPIUM-ALBUTEROL 3 ML NEB INHALATION STA (05:18)
--- NOTE | 2021-09-11 08:05 | CT ---
EXAMINATION TYPE: CT angio chest DATE OF EXAM: 09/11/2021 COMPARISON: CTA chest March 22, 2015 HISTORY: NSTEMI, Elevated troponin CT DLP: 1747.8 mGycm. Automated Exposure Control for Dose Reduction was Utilized. CONTRAST: CTA scan of the thorax is performed with IV Contrast, patient injected with 100 ml mL of Isovue 370, pulmonary embolism protocol. MIP Images are created on CT scanner and reviewed. FINDINGS: LUNGS: There are small left greater than right pleural effusions. There is associated compressive ate lectasis. Mild bibasilar linear scarring and/or atelectasis is seen. No suspicious focal consolidatio n. No concerning masses. MEDIASTINUM: There is satisfactory enhancement of the pulmonary artery and its branches, there is no CT evidence for pulmonary embolism. There are no greater than 1 cm hilar or mediastinal lymph nodes. No pericardial effusion is seen. Heart size upper limits of normal. Post-CABG changes with sternal wires and mediastinal clips. 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 Enlarged main pulmonary artery is 3.7 cm niño sing concern for underlying pulmonary artery hypertension. Reflux of contrast into IVC and hepatic ve ins suggests degree of right heart failure. OTHER: Mild asymmetric left-sided subcutaneous edema. [id number] multilevel spurring in the spi ne. Please refer to same day CT abdomen and pelvis study for complete details on the upper abdomen. IMPRESSION: No CT evidence for acute pulmonary embolism. Small left greater than right pleural effusi ons. Correlate for fluid overload state. Post-CABG changes redemonstrated.
[2021-09-11 08:14] LABS: Glucose,Whole Blood 118 mg/dL (75-99)
--- NOTE | 2021-09-11 08:40 | P.CRDCN ---
History of Present Illness History of present illness: Known coronary artery disease status post CABG in July 2019 status post prior angioplasty of right coronary artery in 2018 and 15 ischemic cardiomyopathy paroxysmal atrial fibrillation hypertension diabetes and dyslipidemia presented to Hospital with symptoms of nausea and vomiting. It came on suddenly. Did not have any chest pain difficulty in breathing leg edema PND or orthopnea. Cardiology had been consulted because of mildly elevated troponin and BNP. Patient had a computed tomography scan of the chest is negative for pulmonary embolism EKG showed sinus bradycardia left axis deviation and intraventricular conduction delay. Patient's clinical presentation is consistent with acute exacerbation of chronic systolic heart failure. His troponin elevation could be due to supply demand mismatch I will treat the patient with IV Lasix continue his medications including the amiodarone Eliquis in the Lopressor that he is on I'll perform 14 out of 14 review of systems pertinent t as documented in history of presenting illness General: The patient is awake and alert, in no distress, and does not appear acutely ill. Skin: Skin is warm and dry and no rashes or lesions are noted. Eye: Pupils are equal, round and reactive to light, extra-ocular movements are intact; there is normal conjunctiva bilaterally. Ears, nose, mouth and throat: There are moist mucous membranes and no oral lesions. Neck: The neck is supple, there is no tenderness or JVD. Cardiovascular: There is a regular rate and rhythm. No murmur, rub or gallop is appreciated. Respiratory: Lungs are clear to auscultation, respirations are non-labored, breath sounds are equal. Gastrointestinal: Soft, non-distended, non-tender abdomen without masses or organomegaly noted. There is no rebound or guarding present. Bowel sounds are unremarkable. Back: There is no tenderness to palpation in the midline. There is no obvious deformity. Musculoskeletal: Normal ROM, no tenderness, There is no pedal edema. There is no calf tenderness or swelling. Extremities: No edema. Vascular: Femoral pulse is normal. Posterior tibial pulses are normal .Dorsalis pedis is palpable. Neurological: CN II-XII intact. There are no obvious motor or sensory deficits. Speech is normal. Psychiatric: Cooperative, appropriate mood & affect, normal judgment. Assessment and plan: Known coronary artery disease status post CABG Acute systolic heart failure Elevated troponin probably secondary to heart failure Paroxysmal atrial fibrillation Insulin-requiring diabetes Hypertension Dyslipidemia I will resume the Eliquis Lipitor Lopressor and amiodarone. I will start the patient on Lasix obtain a 2-D echo and further treatment plans based on how he responds Past Medical History Past Medical History: Atrial Fibrillation, Coronary Artery Disease (CAD), Chest Pain / Angina, Diabetes Mellitus, GERD/Reflux, Hyperlipidemia, Hypertension, Myocardial Infarction ([place]) Additional Past Medical History / Comment(s): Pt had CABG 07/2019 and had post op Afib/UTI with pseudomonas aeruginosa, ischemic cardiomyopathy, IDDM type II, past R scrotal abscess with sepsis, chronic lower back pain and bilateral leg pain, Last Myocardial Infarction Date:: 03/20/15 History of Any Multi-Drug Resistant Organisms: None Reported Past Surgical History: Back Surgery, Coronary Bypass/CABG, Heart Catheterization, Heart Catheterization With Stent, Orthopedic Surgery Additional Past Surgical History / Comment(s): 08/23/2019 CABG 3 vessels, PCI with total of 5 stents, L ankle ligament repair, R leg ORIF, low back surgery, colonoscopy. Past Anesthesia/Blood Transfusion Reactions: No Reported Reaction Additional Past Anesthesia/Blood Transfusion Reaction / Comment(s): Pt has received blood in past without reaction. Date of Last Stent Placement:: 02/2015 Past Psychological History: No Psychological Hx Reported Smoking Status: Former smoker Past Alcohol Use History: None Reported Past Drug Use History: Marijuana - Past Family History Sister(s) Family Medical History: Coronary Artery Disease (CAD), Hypertension Father Family Medical History: Coronary Artery Disease (CAD), Diabetes Mellitus, Deep Vein Thrombosis (DVT), Hypertension Additional Family Medical History / Comment(s): Father at age 58yrs. He of blood clot from leg injury that went to his heart. Medications and Allergies Home Medications Medication Instructions Recorded Confirmed Type DULoxetine HCL [Cymbalta] 60 mg PO BID 11/16/19 05/08/21 History Semaglutide [Ozempic] 0.5 mg SQ Q7D 11/16/19 05/08/21 History glipiZIDE [Glucotrol] 5 mg PO AC-BID 11/16/19 05/08/21 History oxyCODONE HCL [oxyCODONE HCL (IR)] 15 mg PO Q8H 03/01/20 05/08/21 History Aspirin 81 mg PO DAILY #30 chew 04/10/20 05/08/21 Rx Apixaban [Eliquis] 5 mg PO BID #60 tab 10/02/20 05/08/21 Rx Metoprolol Tartrate [Lopressor] 50 mg PO BID #60 tab 10/02/20 05/08/21 Rx Pantoprazole [Protonix] 40 mg PO AC-BRKFST #30 tablet.dr 10/02/20 05/08/21 Rx Amiodarone [Cordarone] 200 mg PO DAILY 01/31/21 05/08/21 History Atorvastatin [Lipitor] 40 mg PO HS 01/31/21 05/08/21 History Insulin Aspart [NovoLOG Flexpen] See Protocol SQ AC-TID 01/31/21 05/08/21 History Insulin Glargine,Hum.rec.anlog 20 unit SQ DAILY 01/31/21 05/08/21 History [Lantus Solostar Pen] metFORMIN HCL [Glucophage] 1,000 mg PO BID 01/31/21 05/08/21 History oxyCODONE ER [OxyCONTIN] 80 mg PO Q12H 01/31/21 05/08/21 History rOPINIRole HCL [Requip] 1 mg PO BID 01/31/21 05/08/21 History Gabapentin [Neurontin] 300 mg PO BID 02/06/21 05/08/21 History lisinopriL [Prinivil] 10 mg PO DAILY #1 tablet 02/11/21 05/08/21 Rx Montelukast [Singulair] 10 mg PO HS #30 tab 03/19/21 05/08/21 Rx Albuterol Sulfate [Albuterol 2 puff INHALATION RT-QID PRN 05/08/21 05/08/21 History Sulfate Hfa] Lactulose [Cephulac] 20 gm PO DAILY PRN 05/08/21 05/08/21 History Ondansetron Odt [Zofran Odt] 4 mg PO Q8HR PRN #12 tab 05/10/21 Rx Allergies Allergy/AdvReac Type Severity Reaction Status Date / Time No Known Allergies Allergy Verified 09/10/21 19:51 Physical Exam Vitals: Vital Signs Temp Pulse Resp BP Pulse Ox 09/11/21 08:13 51 L 18 140/61 94 L 09/11/21 07:00 57 L 20 156/83 92 L 09/11/21 06:00 58 L 18 164/85 92 L 09/11/21 05:38 58 L 09/11/21 05:33 56 L 09/11/21 05:14 92 L 09/11/21 05:00 56 L 18 179/92 87 L 09/11/21 02:42 98.1 F 60 18 187/89 97 09/10/21 19:48 98.9 F 70 18 184/82 95 Intake and Output 09/10/21 09/11/21 09/11/21 22:59 06:59 14:59 Other: Weight 77.111 kg Results 09/11/21 02:41 09/11/21 02:41 Cardiac Enzymes 09/11/21 09/11/21 09/11/21 Range/Units 02:41 02:41 02:41 AST 83 H (17-59) U/L CK-MB (CK-2) 1.0 (0.0-2.4) ng/mL Troponin I 0.146 H* (0.000-0.034) ng/mL CBC 09/11/21 Range/Units 02:41 WBC 12.2 H (3.8-10.6) k/uL RBC 4.23 L (4.30-5.90) m/uL Hgb 12.1 L (13.0-17.5) gm/dL Hct 39.2 (39.0-53.0) % Plt Count 281 (150-450) k/uL Comprehensive Metabolic Panel 09/11/21 Range/Units 02:41 Sodium 134 L (137-145) mmol/L Potassium 4.4 (3.5-5.1) mmol/L Chloride 101 (98-107) mmol/L Carbon Dioxide 27 (22-30) mmol/L BUN 17 (9-20) mg/dL Creatinine 0.72 (0.66-1.25) mg/dL Glucose 186 H (74-99) mg/dL Calcium 8.0 L (8.4-10.2) mg/dL AST 83 H (17-59) U/L ALT 57 H (4-49) U/L Alkaline Phosphatase 311 H (38-126) U/L Total Protein 5.6 L (6.3-8.2) g/dL Albumin 2.9 L (3.5-5.0) g/dL Current Medications Generic Name Dose Route Start Last Admin Trade Name Freq PRN Reason Stop Dose Admin Acetaminophen 650 mg 09/11/21 04:33 Acetaminophen Tab 325 Mg Tab PO Q6HR PRN Mild Pain or Fever > 100.5 Amiodarone HCl 200 mg 09/11/21 09:00 Amiodarone 200 Mg Tab PO DAILY [facility] Apixaban 5 mg 09/11/21 09:00 Apixaban 5 Mg Tab PO BID [facility] Protocol Atorvastatin Calcium 40 mg 09/11/21 21:00 Atorvastatin 40 Mg Tab PO HS [facility] Sodium Chloride 1,000 mls @ 75 mls/hr 09/11/21 04:45 09/11/21 05:06 Saline 0.9% IV 75 mls/hr .[id number] [facility] Administration Insulin Aspart 0 unit 09/11/21 12:30 Insulin Aspart (Novolog) 100 Unit/Ml Vial SQ ACHS [facility] Protocol Insulin Detemir 10 unit 09/11/21 09:00 Insulin Detemir (Levemir) 100 Unit/Ml Syr SQ DAILY@0700 [facility] Metoprolol Tartrate 50 mg 09/11/21 21:00 Metoprolol Tartrate 50 Mg Tab PO BID [facility] Morphine Sulfate 4 mg 09/11/21 04:33 Morphine Sulfate 4 Mg/Ml Syringe IV Q4HR PRN Severe Pain Naloxone HCl 0.2 mg 09/11/21 04:33 Naloxone 0.4 Mg/Ml 1 Ml Vial IV Q2M PRN Opioid Reversal Ondansetron HCl 4 mg 09/11/21 04:33 Ondansetron 4 Mg/2 Ml Vial IVP Q8HR PRN Nausea And Vomiting Oxycodone HCl 15 mg 09/11/21 09:00 Oxycodone Hcl 5 Mg Tab PO Q8H [facility] Intake and Output 09/10/21 09/11/21 09/11/21 22:59 06:59 14:59 Other: Weight 77.111 kg 09/11/21 02:41 09/11/21 02:41
[2021-09-11] MEDS ORDERED: FUROSEMIDE 10 MG/ML 2 ML VIAL IV STA (08:41)
--- NOTE | 2021-09-11 09:23 | US ---
EXAMINATION TYPE: US gallbladder DATE OF EXAM: 09/11/2021 COMPARISON: NONE CLINICAL HISTORY: pain. pain EXAM MEASUREMENTS: Liver Length: 16.1 cm Gallbladder Wall: 0.4cm CBD: 0.4cm Right Kidney: 10.9 x 4.4 x 5.3 cm Pancreas: Obscured by bowel gas Liver: There is a coarse echotexture suggesting underlying hepatic steatosis. Gallbladder: Low-level internal echoes may be present, there may be tumefactive sludge Evidence for sonographic Ortiz's sign: No CBD: wnl Right Kidney: wnl IMPRESSION: There are limitations the exam. Gallbladder wall thickening is present, question some min imal pericholecystic fluid, correlate for cholecystitis, hepatic steatosis
[2021-09-11] MEDS: AMIODARONE 200 MG TAB PO SCH (09:45)
[2021-09-11] MEDS: APIXABAN 5 MG TAB PO SCH ×2 (09:45→21:29)
[2021-09-11] MEDS: INSULIN DETEMIR (LEVEMIR) 100 UNIT/ML SYR SQ SCH (09:45)
--- NOTE | 2021-09-11 09:48 | CT ---
EXAMINATION TYPE: CT abdomen pelvis w con DATE OF EXAM: 09/11/2021 COMPARISON: Prior CT March 14, 2021 and older CTs HISTORY: Leukocytosis and elevated liver enzymes CT DLP: 1747.8 mGycm, Automated Exposure Control for Dose Reduction was Utilized. CONTRAST: CT scan of the abdomen and pelvis is performed without oral but with IV Contrast, patient injected wi th 100 ml mL of Isovue 370. FINDINGS: LUNG BASES: Please refer to same day CTA chest report for complete details on the lung bases. LIVER/GB: Liver remains heterogeneously hypodense system with diffuse fatty infiltration. No new bili lencho dilatation is noted. PANCREAS: Some calcifications in the inferior pancreatic head and uncinate process are redemonstrated . Mild ill-defined fluid and fat stranding at this level is noted. Remainder pancreas shows normal si ze. No ductal dilatation. No adjacent forms fluid collection. 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 SPLEEN: No significant abnormality is seen. ADRENALS: Nonspecific nodular thickening to the left adrenal gland redemonstrated and stable from 201 5 favoring benign etiology. KIDNEYS: Symmetric corticomedullary uptake and excretion without hydronephrosis seen bilaterally. BOWEL: Suboptimal evaluation without enteric contrast. Stomach poorly distended and thus suboptimally evaluated. No suspicious small or large bowel dilatation. PROSTATE/SEMINAL VESICLES: No gross abnormality seen. LYMPH NODES: No greater than 1cm abdominal or pelvic lymph nodes are appreciated. OSSEOUS STRUCTURES: Multilevel laminectomy defects in the lumbar spine with spinous process resection redemonstrated. Multilevel facet arthropathy redemonstrated. OTHER: Moderate mixed plaque of the aorta extends into branch vessels. IMPRESSION: CT findings suggest an uncomplicated acute pancreatitis on background chronic pancreatiti s. Correlate clinically.
[2021-09-11 12:50] LABS: Glucose,Whole Blood 391 mg/dL (75-99)
[2021-09-11] MEDS: INSULIN ASPART (NovoLOG) 100 UNIT/ML VIAL SQ SCH ×3 (12:57→21:28)
[2021-09-11] MEDS: PANTOPRAZOLE 40 MG/10 ML VIAL IVP SCH (12:58)
--- NOTE | 2021-09-11 17:01 | P.HPIM ---
History of Present Illness H&P Date: 09/11/21 Chief Complaint: vomiting, weakness Ashok Austin is a 66 yo M with PMH of CAD, ischemic cardiomyopathy, paroxysmal AF, T2DM who presented to the ED after experiencing nausea, vomiting, diaphoresis and sweats. He states he was in his usual state of health until yesterday when he began to feel ill and proceeded to vomit multiple times. He denies experiencing any chest pain or shortness of breath. No fever, chills, diarrhea. He complains of sweats and weakness and did not feel right so came in to the hospital. On presentation BP 180/80, WBC 12.2, Hgb 12.1, BNP 11k, trop 0.146, alk phos 300. EKG NSR and CXR no acute process. Pt given IV fluids and zofran. He is currently feeling better although endorses some shortness of breath today. Review of Systems All systems: negative Constitutional: Reports malaise, Reports weakness, Denies chills, Denies fever Eyes: denies blurred vision, denies pain Ears, nose, mouth and throat: Denies headache, Denies sore throat Cardiovascular: Denies chest pain, Denies shortness of breath Respiratory: Reports dyspnea, Denies cough Gastrointestinal: Reports nausea, Reports vomiting, Denies abdominal pain, Denies diarrhea Musculoskeletal: Denies myalgias Integumentary: Denies pruritus, Denies rash Neurological: Denies numbness, Denies weakness Psychiatric: Denies anxiety, Denies depression Endocrine: Denies fatigue, Denies weight change Past Medical History Past Medical History: Atrial Fibrillation, Coronary Artery Disease (CAD), Chest Pain / Angina, Diabetes Mellitus, GERD/Reflux, Hyperlipidemia, Hypertension, Myocardial Infarction (MS) Additional Past Medical History / Comment(s): Pt had CABG 07/2019 and had post op Afib/UTI with pseudomonas aeruginosa, ischemic cardiomyopathy, IDDM type II, past R scrotal abscess with sepsis, chronic lower back pain and bilateral leg pain, Last Myocardial Infarction Date:: 03/20/15 History of Any Multi-Drug Resistant Organisms: None Reported Past Surgical History: Back Surgery, Coronary Bypass/CABG, Heart Catheterization, Heart Catheterization With Stent, Orthopedic Surgery Additional Past Surgical History / Comment(s): 08/23/2019 CABG 3 vessels, PCI with total of 5 stents, L ankle ligament repair, R leg ORIF, low back surgery, colonoscopy. Past Anesthesia/Blood Transfusion Reactions: No Reported Reaction Additional Past Anesthesia/Blood Transfusion Reaction / Comment(s): Pt has received blood in past without reaction. Date of Last Stent Placement:: 02/2015 Past Psychological History: No Psychological Hx Reported Smoking Status: Former smoker Past Alcohol Use History: None Reported Past Drug Use History: Marijuana - Past Family History Sister(s) Family Medical History: Coronary Artery Disease (CAD), Hypertension Father Family Medical History: Coronary Artery Disease (CAD), Diabetes Mellitus, Deep Vein Thrombosis (DVT), Hypertension Additional Family Medical History / Comment(s): Father at age 58yrs. He of blood clot from leg injury that went to his heart. Medications and Allergies Home Medications Medication Instructions Recorded Confirmed Type DULoxetine HCL [Cymbalta] 60 mg PO BID 11/16/19 09/11/21 History oxyCODONE HCL [oxyCODONE HCL (IR)] 15 mg PO Q8H 03/01/20 09/11/21 History Aspirin 81 mg PO DAILY #30 chew 04/10/20 09/11/21 Rx Apixaban [Eliquis] 5 mg PO BID #60 tab 10/02/20 09/11/21 Rx Metoprolol Tartrate [Lopressor] 50 mg PO BID #60 tab 10/02/20 09/11/21 Rx Amiodarone [Cordarone] 200 mg PO DAILY 01/31/21 09/11/21 History Atorvastatin [Lipitor] 40 mg PO HS 01/31/21 09/11/21 History metFORMIN HCL [Glucophage] 1,000 mg PO BID 01/31/21 09/11/21 History Albuterol Sulfate [Albuterol 2 puff INHALATION RT-QID PRN 05/08/21 09/11/21 History Sulfate Hfa] Gabapentin 600 mg PO TID 09/11/21 09/11/21 History Insulin Glargine,Hum.rec.anlog 25 unit SQ HS 09/11/21 09/11/21 History [Basaglar Kwikpen U-100] Pantoprazole Sodium [Protonix] 40 mg PO DAILY 09/11/21 09/11/21 History fentaNYL 100MCG/HR PATCH 1 patch TRANSDERM Q72H 09/11/21 09/11/21 History [Duragesic 100MCG/HR] methocarbamoL [Robaxin-750] 750 mg PO TID 09/11/21 09/11/21 History Allergies Allergy/AdvReac Type Severity Reaction Status Date / Time No Known Allergies Allergy Verified 09/11/21 08:45 Physical Exam Vitals: Vital Signs Temp Pulse Resp BP Pulse Ox 09/11/21 09:46 66 18 139/68 96 09/11/21 08:13 51 L 18 140/61 94 L 09/11/21 07:00 57 L 20 156/83 92 L 09/11/21 06:00 58 L 18 164/85 92 L 09/11/21 05:38 58 L 09/11/21 05:33 56 L 09/11/21 05:14 92 L 09/11/21 05:00 56 L 18 179/92 87 L 09/11/21 02:42 98.1 F 60 18 187/89 97 09/10/21 19:48 98.9 F 70 18 184/82 95 General: well nourished, well developed, NAD. Vitals reviewed Eyes: PERRL, EOMI, conjunctiva normal HENT: normocephalic, mucus membranes moist Neck: supple, no JVD Lungs: normal respiratory effort, no wheezes or rales CV: Regular rate and rhythm, no murmur. Peripheral pulses 2+ Abdomen: soft, nondistended, no organomegaly Lymph: no cervical or axillary LAD Skin: warm and dry. Neuro: A&Ox3, normal mood and affect Results CBC & Chem 7: 09/11/21 02:41 09/11/21 02:41 Labs: Abnormal Lab Results - Last 24 Hours (Table) 09/11/21 09/11/21 09/11/21 Range/Units 02:17 02:41 02:41 WBC 12.2 H (3.8-10.6) k/uL RBC 4.23 L (4.30-5.90) m/uL Hgb 12.1 L (13.0-17.5) gm/dL MCHC 30.8 L (31.0-37.0) g/dL Neutrophils # 10.2 H (1.3-7.7) k/uL Lymphocytes # 0.9 L (1.0-4.8) k/uL Sodium 134 L (137-145) mmol/L Glucose 186 H (74-99) mg/dL POC Glucose (mg/dL) (75-99) mg/dL Calcium 8.0 L (8.4-10.2) mg/dL AST 83 H (17-59) U/L ALT 57 H (4-49) U/L Alkaline Phosphatase 311 H (38-126) U/L Troponin I (0.000-0.034) ng/mL Total Protein 5.6 L (6.3-8.2) g/dL Albumin 2.9 L (3.5-5.0) g/dL Lipase 12 L (23-300) U/L Urine Protein 2+ H (Negative) Urine Glucose (UA) 3+ H (Negative) Urine Ketones 1+ H (Negative) Urine Blood Trace H (Negative) 09/11/21 09/11/21 09/11/21 Range/Units 02:41 08:05 08:12 WBC (3.8-10.6) k/uL RBC (4.30-5.90) m/uL Hgb (13.0-17.5) gm/dL MCHC (31.0-37.0) g/dL Neutrophils # (1.3-7.7) k/uL Lymphocytes # (1.0-4.8) k/uL Sodium (137-145) mmol/L Glucose (74-99) mg/dL POC Glucose (mg/dL) 118 H (75-99) mg/dL Calcium (8.4-10.2) mg/dL AST (17-59) U/L ALT (4-49) U/L Alkaline Phosphatase (38-126) U/L Troponin I 0.146 H* 0.139 H* (0.000-0.034) ng/mL Total Protein (6.3-8.2) g/dL Albumin (3.5-5.0) g/dL Lipase (23-300) U/L Urine Protein (Negative) Urine Glucose (UA) (Negative) Urine Ketones (Negative) Urine Blood (Negative) 09/11/21 09/11/21 Range/Units 10:07 12:48 WBC (3.8-10.6) k/uL RBC (4.30-5.90) m/uL Hgb (13.0-17.5) gm/dL MCHC (31.0-37.0) g/dL Neutrophils # (1.3-7.7) k/uL Lymphocytes # (1.0-4.8) k/uL Sodium (137-145) mmol/L Glucose (74-99) mg/dL POC Glucose (mg/dL) 391 H (75-99) mg/dL Calcium (8.4-10.2) mg/dL AST (17-59) U/L ALT (4-49) U/L Alkaline Phosphatase (38-126) U/L Troponin I 0.116 H* (0.000-0.034) ng/mL Total Protein (6.3-8.2) g/dL Albumin (3.5-5.0) g/dL Lipase (23-300) U/L Urine Protein (Negative) Urine Glucose (UA) (Negative) Urine Ketones (Negative) Urine Blood (Negative) Assessment and Plan Plan: 1. Acute systolic CHF. Admit, consult Cardiology. Continue with eliquis, amiodarone, metoprolol 2. CAD. Continue with lipitor 3. Elevated LFTs. CT abd/pelvis performed, no acute process. Secondary to vomiting 4. T2DM. Continue with lantus. Accucheck and sliding scale 5. Chronic pain. Continue home oxycodone
[2021-09-11 17:03] LABS: Glucose,Whole Blood 172 mg/dL (70-110)
[2021-09-11] MEDS ORDERED: ATORVASTATIN 40 MG TAB PO SCH (21:00)
[2021-09-11 21:28] LABS: Glucose,Whole Blood 128 mg/dL (70-110)
[2021-09-11] MEDS: METOPROLOL TARTRATE 50 MG TAB PO SCH (21:30)
[2021-09-12 03:32] VITALS: TEMP 98.2
[2021-09-12] MEDS: SODIUM CHLORIDE 0.9% 1,000 ML IV SCH (03:33)
[2021-09-12 06:00] LABS: Glucose,Whole Blood 352 mg/dL (70-110)
[2021-09-12] MEDS: INSULIN ASPART (NovoLOG) 100 UNIT/ML VIAL SQ SCH ×2 (06:12→12:38)
[2021-09-12] MEDS: INSULIN DETEMIR (LEVEMIR) 100 UNIT/ML SYR SQ SCH (06:13)
[2021-09-12] MEDS: APIXABAN 5 MG TAB PO SCH (08:27)
[2021-09-12] MEDS: AMIODARONE 200 MG TAB PO SCH (08:27)
[2021-09-12] MEDS: METOPROLOL TARTRATE 50 MG TAB PO SCH (08:27)
[2021-09-12] MEDS: PANTOPRAZOLE 40 MG/10 ML VIAL IVP SCH (08:27)
[2021-09-12 08:34] VITALS: RESP 16
[2021-09-12 09:26] LABS: Basophils % (A) 0 %; Eosinophils # (A) 0.2 k/uL (0-0.7); Eosinophils % (A) 2 %; HCT 35.6 % (39.0-53.0); HGB 10.9 gm/dL (13.0-17.5); Hypochromasia Slight; Lymphocytes # (A) 1.3 k/uL (1.0-4.8); Lymphocytes % (A) 15 %; MCH 29.1 pg (25.0-35.0); MCHC 30.7 g/dL (31.0-37.0); MCV 94.6 fL (80.0-100.0); Mean Platelet Volume 7.3; Monocytes # (A) 0.6 k/uL (0-1.0); Monocytes % (A) 7 %; Neutrophils # (A) 6.3 k/uL (1.3-7.7); Neutrophils % (A) 74 %; Platelet Count 283 k/uL (150-450); RBC 3.76 m/uL (4.30-5.90); RDW 15.3 % (11.5-15.5); WBC 8.6 k/uL (3.8-10.6)
[2021-09-12 09:51] LABS: African American GFR (CKD) >90 (>60 ml/min/1.73 sqM); Anion Gap 4 mmol/L; Blood Urea Nitrogen 22 mg/dL (9-20); Calcium 7.5 mg/dL (8.4-10.2); Carbon Dioxide 28 mmol/L (22-30); Chloride 105 mmol/L (98-107); Glucose 99 mg/dL (74-99); Non-African American GFR(CKD) 83 (>60 ml/min/1.73 sqM); Potassium 3.4 mmol/L (3.5-5.1); Sodium 137 mmol/L (137-145)
--- NOTE | 2021-09-12 11:20 | CA ---
Transthoracic Echo Report Name: Ashok Austin Age: 66 Gender: M : 1955 Exam Date: 09/12/2021 09:47 Exam Location: [facility] Ht (in): 67 Wt (lb): 170 Ordering Physician: Kirby Ibrahim DO Attending/Referring Phys: [id number], Patrice Camera Machinist Deanna Clemons, SAPPHIRE Procedure CPT: Indications: nstemi Cardiac Hx: Cabg, cad, afib chol, htn, mi Technical Quality: Good Contrast 1: Total Dose (mL): Contrast 2: Total Dose (mL): MEASUREMENTS (Male / Female) Normal Values 2D ECHO LV Diastolic Diameter PLAX 5.1 cm 4.2 - 5.9 / 3.9 - 5.3 cm LV Systolic Diameter PLAX 4.1 cm IVS Diastolic Thickness 1.5 cm 0.6 - 1.0 / 0.6 - 0.9 cm LVPW Diastolic Thickness 1.7 cm 0.6 - 1.0 / 0.6 - 0.9 cm LV Relative Wall Thickness 0.6 RV Internal Dim ED PLAX 2.9 cm LA Systolic Diameter LX 4.0 cm 3.0 - 4.0 / 2.7 - 3.8 cm M-MODE Aortic Root Diameter MM 3.1 cm LA Systolic Diameter MM 3.7 cm LA Ao Ratio MM 1.2 MV E Point Septal Separation 0.9 cm AV Cusp Separation MM 1.6 cm DOPPLER MV Area PHT 8.8 cm??? Mitral E Point Velocity 69.4 cm/s Mitral A Point Velocity 24.0 cm/s Mitral E to A Ratio 2.9 MV Deceleration Time 86.1 ms TR Peak Velocity 247.5 cm/s TR Peak Gradient 24.5 mmHg Right Ventricular Systolic Press 29.5 mmHg FINDINGS Left Ventricle Left ventricular ejection fraction is estimated at 30-35% with hypokinesia involving the inferobasal and mid inferior wall as well as the anteroseptal portion. There is also some global decrease in contractility. Right Ventricle Normal right ventricular size and function. Right Atrium Normal right atrial size. Left Atrium Mildly increased left atrial area. Mitral Valve Mitral valve thickened. Mild mitral regurgitation. Aortic Valve Trileaflet aortic valve. Tricuspid Valve Structurally normal tricuspid valve. Mild tricuspid regurgitation. Pulmonic Valve Structurally normal pulmonic valve. Pericardium Normal pericardium. Aorta Normal size aortic root and proximal ascending aorta. CONCLUSIONS Ischemic cardiomyopathy with ejection fraction of 30-35% range with inferior wall hypokinesis and anteroseptal hypokinesia. No significant abnormality on the Doppler exam. No pericardial effusion Previewed by: Dr. Cameron Brooke MD (Electronically Signed) Final Date: 12 September 2021 11:20
--- NOTE | 2021-09-12 12:00 | P.PN ---
Subjective Progress Note Date: 09/12/21 Known coronary artery disease status post CABG in July 2019 status post prior angioplasty of right coronary artery in 2018 and 15 ischemic cardiomyopathy paroxysmal atrial fibrillation hypertension diabetes and dyslipidemia presented to Hospital with symptoms of nausea and vomiting. It came on suddenly. Did not have any chest pain difficulty in breathing leg edema PND or orthopnea. Cardiology had been consulted because of mildly elevated troponin and BNP. Patient had a computed tomography scan of the chest is negative for pulmonary embolism EKG showed sinus bradycardia left axis deviation and intraventricular conduction delay. Patient's clinical presentation is consistent with acute exacerbation of chronic systolic heart failure. His troponin elevation could be due to supply demand mismatch Today patient is seen resting comfortably in bed. He denies chest pain or shortness of breath. He received a one-time dose of 20 of IV Lasix yesterday. Labs today show hemoglobin 10.9 platelets 283 sodium 137 potassium 3.4 BUN 22 creatinine 0.97. Pressure is poorly controlled will start lisinopril 10 mg daily. Patient's echocardiogram shows a decreased LV function with an ejection fraction of 30-35% with hypokinesis involving the inferior and anteroseptal wall, with some global decrease in contractility, mild mitral regurgitation, mild tricuspid regurgitation. Objective - Vital Signs Vital signs: Vital Signs Temp 98.2 F 09/12/21 03:31 Pulse 58 L 09/12/21 08:00 Resp 16 09/12/21 08:00 BP 162/82 09/12/21 08:00 Pulse Ox 96 09/12/21 08:00 FiO2 Intake & Output 09/11/21 09/12/21 09/12/21 18:59 06:59 18:59 Intake Total 118 Output Total 0 Balance 0 118 Weight 83.6 kg Intake: Oral 118 Output: Urine 0 Other: Voiding Method Toilet Toilet Urinal Urinal # Voids 2 - Exam PHYSICAL EXAM: VITAL SIGNS: Reviewed. GENERAL: Well-developed in no acute distress. HEENT: Head is normocephalic. Pupils are equal, round. Sclerae anicteric. Mucous membranes of the mouth are moist. NECK: Supple. No JVD or thyromegaly RESPIRATORY: Respirations even and unlabored. Lungs diminished to auscultation bilaterally. CARDIO: Regular rate and rhythm. S1 and S2 heard. No murmur or gallops. EXTREMITIES: Normal range of motion. No clubbing or cyanosis. Peripheral pulses intact. Negative for bilateral lower extremity edema NEURO: Orientated to person, time, mood is appropriate - Labs CBC & Chem 7: 09/12/21 08:20 09/12/21 08:20 Labs: Abnormal Lab Results - Last 24 Hours (Table) 09/11/21 09/11/21 09/11/21 Range/Units 10:07 12:48 17:01 RBC (4.30-5.90) m/uL Hgb (13.0-17.5) gm/dL Hct (39.0-53.0) % MCHC (31.0-37.0) g/dL Potassium (3.5-5.1) mmol/L BUN (9-20) mg/dL POC Glucose (mg/dL) 391 H 172 H (75-99) mg/dL Calcium (8.4-10.2) mg/dL Troponin I 0.116 H* (0.000-0.034) ng/mL 09/11/21 09/12/21 09/12/21 Range/Units 21:26 05:57 08:20 RBC 3.76 L (4.30-5.90) m/uL Hgb 10.9 L (13.0-17.5) gm/dL Hct 35.6 L (39.0-53.0) % MCHC 30.7 L (31.0-37.0) g/dL Potassium (3.5-5.1) mmol/L BUN (9-20) mg/dL POC Glucose (mg/dL) 128 H 352 H (75-99) mg/dL Calcium (8.4-10.2) mg/dL Troponin I (0.000-0.034) ng/mL 09/12/21 Range/Units 08:20 RBC (4.30-5.90) m/uL Hgb (13.0-17.5) gm/dL Hct (39.0-53.0) % MCHC (31.0-37.0) g/dL Potassium 3.4 L (3.5-5.1) mmol/L BUN 22 H (9-20) mg/dL POC Glucose (mg/dL) (75-99) mg/dL Calcium 7.5 L (8.4-10.2) mg/dL Troponin I (0.000-0.034) ng/mL Assessment and Plan Assessment: Ischemic cardiomyopathy coronary artery disease status post CABG Acute systolic heart failure Elevated troponins probably secondary to heart failure Proximal atrial fibrillation Elevated liver function tests secondary to vomiting, CT of the abdomen and pelvis negative for acute process Insulin requiring diabetic Hypertension Dyslipidemia Plan: Start lisinopril 10 mg daily. Continue with all other current cardiac medications Echocardiogram reviewed
[2021-09-12 12:04] LABS: Glucose,Whole Blood 107 mg/dL (70-110)
[2021-09-12] MEDS ORDERED: lisinopriL 10 MG TAB PO SCH (12:15)
[2021-09-12 14:01] VITALS: BP 151/82; PULSE 57
--- NOTE | 2021-09-12 15:23 | P.DS ---
Providers Date of admission: 09/11/21 04:45 Expected date of discharge: 09/12/21 Attending physician: Puma Lovell MD Consults: 09/11/21 04:33 Consult Physician Routine Consulting Provider: [facility] Consult Reason/Comments: NSTEMI, Elevated Troponin Do you want consulting provider notified?: Yes, Notify in am Primary care physician: Puma Lovell MD Hospital Course: Final Diagnoses: Acute systolic CHF Ischemic cardiomyopathy, EF 30-35% CAD Elevated LFTs, CT abdomen and pelvis reported nonacute process Diabetes mellitus type 2 Chronic pain Hospital course: Ashok Austin is a 66 yo M with PMH of CAD, ischemic cardiomyopathy, paroxysmal AF, T2DM who presented to the ED after experiencing nausea, vomiting, diaphoresis and sweats. He states he was in his usual state of health until yesterday when he began to feel ill and proceeded to vomit multiple times. He denies experiencing any chest pain or shortness of breath. No fever, chills, diarrhea. He complains of sweats and weakness and did not feel right so came in to the hospital. On presentation BP 180/80, WBC 12.2, Hgb 12.1, BNP 11k, trop 0.146, alk phos 300. EKG NSR and CXR no acute process. Pt given IV fluids and zofran. He is currently feeling better although endorses some shortness of breath today. No overnight events. Troponin 0.146, 0.139, 0.116. Telemetry sinus rhythm. Denies nausea vomiting or diarrhea. Denies abdominal pain. Denies chest pain, palpitations or shortness of breath. Hypertensive, blood pressures ranging from 130s to 160s, with IV fluids running at 75 MLS an hour. IV fluids discontinued. Maintaining O2 sats in the high 90s on 2 L nasal cannula. Echo reported ischemic cardiomyopathy, EF 30-35% with inferior and anterior septal hypokinesia. Denies lightheadedness, dizziness or focal deficits. Potassium 3.4, BUN 22, creatinine 0.97. Patient will be discharged home today in a stable condition with her prognosis pending final DC recommendations and clearance per cardiology. General: Alert and oriented 3, Sitting up in bed, no acute distress HENT: normocephalic, mucus membranes moist Neck: supple, no JVD Lungs: normal respiratory effort CV: Regular rate and rhythm, no murmur. Peripheral pulses 2+ Abdomen: soft, nondistended, no organomegaly,+BS Skin: warm and dry. Neuro: No focal deficits. The impression and plan of care has been dictated as directed. : I performed a history and examination of this patient, discussed the same with the dictator. I agree with the dictator's note ,documented as a scribe. Any additional findings or plans will be noted. Patient Condition at Discharge: Stable Plan - Discharge Summary New Discharge Prescriptions: Continue DULoxetine HCL [Cymbalta] 60 mg PO BID oxyCODONE HCL [oxyCODONE HCL (IR)] 15 mg PO Q8H Aspirin 81 mg PO DAILY #30 chew Apixaban [Eliquis] 5 mg PO BID #60 tab Atorvastatin [Lipitor] 40 mg PO HS Gabapentin 600 mg PO TID Metoprolol Tartrate [Lopressor] 50 mg PO BID #60 tab metFORMIN HCL [Glucophage] 1,000 mg PO BID Amiodarone [Cordarone] 200 mg PO DAILY Albuterol Sulfate [Albuterol Sulfate Hfa] 2 puff INHALATION RT-QID PRN PRN Reason: Shortness Of Breath fentaNYL 100MCG/HR PATCH [Duragesic 100MCG/HR] 1 patch TRANSDERM Q72H methocarbamoL [Robaxin-750] 750 mg PO TID Insulin Glargine,Hum.rec.anlog [Basaglar Kwikpen U-100] 25 unit SQ HS Pantoprazole Sodium [Protonix] 40 mg PO DAILY Discharge Medication List DULoxetine HCL [Cymbalta] 60 mg PO BID 11/16/19 [History] oxyCODONE HCL [oxyCODONE HCL (IR)] 15 mg PO Q8H 03/01/20 [History] Aspirin 81 mg PO DAILY #30 chew 04/10/20 [Rx] Apixaban [Eliquis] 5 mg PO BID #60 tab 10/02/20 [Rx] Metoprolol Tartrate [Lopressor] 50 mg PO BID #60 tab 10/02/20 [Rx] Amiodarone [Cordarone] 200 mg PO DAILY 01/31/21 [History] Atorvastatin [Lipitor] 40 mg PO HS 01/31/21 [History] metFORMIN HCL [Glucophage] 1,000 mg PO BID 11/04/21 [History] Albuterol Sulfate [Albuterol Sulfate Hfa] 2 puff INHALATION RT-QID PRN 05/08/21 [History] Gabapentin 600 mg PO TID 09/11/21 [History] Insulin Glargine,Hum.rec.anlog [Basaglar Kwikpen U-100] 25 unit SQ HS 09/11/21 [History] Pantoprazole Sodium [Protonix] 40 mg PO DAILY 09/11/21 [History] fentaNYL 100MCG/HR PATCH [Duragesic 100MCG/HR] 1 patch TRANSDERM Q72H 09/11/21 [History] methocarbamoL [Robaxin-750] 750 mg PO TID 09/11/21 [History] Follow up Appointment(s)/Referral(s): Puma Lovell MD [Primary Care Provider] - 1-[address] [facility], [NON-STAFF] -
[2021-09-12] MEDS ORDERED: Potassium Replacement Protocol 1 EACH MISC MISCELLANE PRN (15:42)
[2021-09-13] MEDS ORDERED: PANTOPRAZOLE 40 MG TABLET PO SCH (07:30)
== END 2021-09-12 15:34 | disposition home or self-care (01) | DRG 291 ==
LOC: EC 19:44 → 3SCARD 09-11 04:45
PROVIDERS: ADMIT Family Medicine; ATTEND Family Medicine
DX: I11.0 Hypertensive heart disease with heart failure (principal); I50.23 Acute on chronic systolic (congestive) heart failure; Z20.822 Contact with and (suspected) exposure to COVID-19; R00.1 Bradycardia, unspecified; D72.829 Elevated white blood cell count, unspecified; E11.9 Type 2 diabetes mellitus without complications; E78.5 Hyperlipidemia, unspecified; M54.50 Low back pain, unspecified; I48.0 Paroxysmal atrial fibrillation; G89.29 Other chronic pain; I08.1 Rheumatic disorders of both mitral and tricuspid valves; I25.10 Atherosclerotic heart disease of native coronary artery without angina pectoris; I25.2 Old myocardial infarction; I25.5 Ischemic cardiomyopathy; R29.6 Repeated falls; W01.0XXA Fall on same level from slipping, tripping and stumbling without subsequent striking against object, initial encounter; Z79.4 Long term (current) use of insulin; Z79.01 Long term (current) use of anticoagulants; Z79.82 Long term (current) use of aspirin; Z79.84 Long term (current) use of oral hypoglycemic drugs; Z79.899 Other long term (current) drug therapy; Z82.49 Family history of ischemic heart disease and other diseases of the circulatory system; Z83.3 Family history of diabetes mellitus; Z87.891 Personal history of nicotine dependence; Z95.1 Presence of aortocoronary bypass graft
CPT/HCPCS: 36415; 71045; 71275; 74018; 74177; 76705; 80048; 80053; 81001; 82553; 83690; 83735; 83880; 84484; 85025; 87635; 93005; 93306; 96361; 96374; 96375; 99285

== ENCOUNTER 2021-09-13 06:00 | Inpatient (IN) | payer MEDICARE, OTHER ==
--- NOTE | 2021-09-13 06:31 | ED ---
General Adult HPI - General Chief complaint: Shortness of Breath Stated complaint: SOB Time Seen by Provider: 09/13/21 06:10 Source: patient, family, EMS, RN notes reviewed, old records reviewed Mode of arrival: EMS Limitations: no limitations - History of Present Illness Initial comments: 66-year-old male, alert and oriented, presents with complaints of shortness of breath that started again last night. He was discharged from the hospital yesterday for shortness of breath. Patient states he feels like he can't get air in when he takes a breath, like his throat is closing. Patient states that when he tries to lay flat it gets worse. He is supposed to be on oxygen at home but states his tanks are empty. He states that with oxygen he is feeling better now. He denies any difficulty swallowing. He does have a history of COPD, CHF, A. fib, hypertension, diabetes, UT with CABG in 2019. -: days(s) (1) Severity scale (1-10): 0 Associated Symptoms: nausea/vomiting, shortness of breath Treatments Prior to Arrival: other (oxygen) - Related Data Home Medications Medication Instructions Recorded Confirmed DULoxetine HCL [Cymbalta] 60 mg PO BID 11/16/19 09/13/21 oxyCODONE HCL [oxyCODONE HCL (IR)] 15 mg PO Q8H 03/01/20 09/13/21 Amiodarone [Cordarone] 200 mg PO DAILY 01/31/21 09/13/21 Atorvastatin [Lipitor] 40 mg PO HS 01/31/21 09/13/21 metFORMIN HCL [Glucophage] 1,000 mg PO BID 01/31/21 09/13/21 Albuterol Sulfate [Albuterol 2 puff INHALATION RT-QID PRN 05/08/21 09/13/21 Sulfate Hfa] Gabapentin 600 mg PO TID 09/11/21 09/13/21 Insulin Glargine,Hum.rec.anlog 25 unit SQ HS 09/11/21 09/13/21 [Basaglar Kwikpen U-100] Pantoprazole Sodium [Protonix] 40 mg PO DAILY 09/11/21 09/13/21 fentaNYL 100MCG/HR PATCH 1 patch TRANSDERM Q72H 09/11/21 09/13/21 [Duragesic 100MCG/HR] methocarbamoL [Robaxin-750] 750 mg PO TID 09/11/21 09/13/21 Previous Rx's Medication Instructions Recorded Aspirin 81 mg PO DAILY #30 chew 04/10/20 Apixaban [Eliquis] 5 mg PO BID #60 tab 10/02/20 Metoprolol Tartrate [Lopressor] 50 mg PO BID #60 tab 10/02/20 Allergies Allergy/AdvReac Type Severity Reaction Status Date / Time No Known Allergies Allergy Verified 09/13/21 07:59 Review of Systems ROS Statement: Those systems with pertinent positive or pertinent negative responses have been documented in the HPI. ROS Other: All systems not noted in ROS Statement are negative. Past Medical History Past Medical History: Atrial Fibrillation, Coronary Artery Disease (CAD), Chest Pain / Angina, Diabetes Mellitus, GERD/Reflux, Hyperlipidemia, Hypertension, Myocardial Infarction (UT) Additional Past Medical History / Comment(s): Pt had CABG 07/2019 and had post op Afib/UTI with pseudomonas aeruginosa, ischemic cardiomyopathy, IDDM type II, past R scrotal abscess with sepsis, chronic lower back pain and bilateral leg pain, Last Myocardial Infarction Date:: 03/20/15 History of Any Multi-Drug Resistant Organisms: None Reported Past Surgical History: Back Surgery, Coronary Bypass/CABG, Heart Catheterization, Heart Catheterization With Stent, Orthopedic Surgery Additional Past Surgical History / Comment(s): 08/23/2019 CABG 3 vessels, PCI with total of 5 stents, L ankle ligament repair, R leg ORIF, low back surgery, colonoscopy. Past Anesthesia/Blood Transfusion Reactions: No Reported Reaction Additional Past Anesthesia/Blood Transfusion Reaction / Comment(s): Pt has received blood in past without reaction. Date of Last Stent Placement:: 02/2015 Past Psychological History: No Psychological Hx Reported Smoking Status: Former smoker Past Alcohol Use History: None Reported Past Drug Use History: Marijuana - Past Family History Sister(s) Family Medical History: Coronary Artery Disease (CAD), Hypertension Father Family Medical History: Coronary Artery Disease (CAD), Diabetes Mellitus, Deep Vein Thrombosis (DVT), Hypertension Additional Family Medical History / Comment(s): Father at age 58yrs. He of blood clot from leg injury that went to his heart. General Exam Limitations: no limitations General appearance: alert, in no apparent distress Eye exam: Absent: scleral icterus, conjunctival injection ENT exam: Present: normal oropharynx, mucous membranes moist Expanded Mouth exam: Present: tongue normal, tongue elevation. Absent: drooling, trismus, muffled voice Throat exam: negative: tonsillar exudate, R peritonsillar mass, L peritonsillar mass Neck exam: Present: normal inspection. Absent: tenderness, meningismus Respiratory exam: Present: rales (Bilateral bases). Absent: rhonchi, stridor, chest wall tenderness, accessory muscle use Cardiovascular Exam: Present: regular rate, normal rhythm GI/Abdominal exam: Present: soft. Absent: distended, tenderness, rigid Extremities exam: Present: normal capillary refill. Absent: tenderness, pedal edema, calf tenderness Back exam: Absent: tenderness, CVA tenderness (R), CVA tenderness (L), rash noted Neurological exam: Present: alert, oriented X3 Psychiatric exam: Present: normal affect, normal mood Skin exam: Present: warm, dry, normal color. Absent: cyanosis, diaphoretic, pallor Course Vital Signs 09/13/21 09/13/21 09/13/21 06:01 08:04 08:25 Temperature 98.3 F Pulse Rate 68 61 57 L Respiratory 26 H 22 16 Rate Blood Pressure 186/105 181/87 173/88 O2 Sat by Pulse 87 L 96 97 Oximetry 09/13/21 10:08 Temperature Pulse Rate 71 Respiratory 16 Rate Blood Pressure 182/99 O2 Sat by Pulse 96 Oximetry EKG Findings - EKG Results: EKG: sinus rhythm (Ventricular rate 65, OH interval 0.207, QRS 0.127, QTC 0.478) Medical Decision Making - Medical Decision Making Patient was discharged from the hospital yesterday with NSTEMI and placed on eliquis. He returns today with increasing shortness of breath and hypoxia. Chest x-ray shows mild interstitial pulmonary edema improved from exam completed 2 days [place] [address], troponin is elevated 0.090 however lower than 0.116 from 2 days earlier. Patient was put on 4 L nasal cannula, oxygen saturation increased to 97%. He states that he is feeling much better with the oxygen. He was given Lasix IV. Patient did have an echocardiogram on September 12 with EF of 35%. He was placed on eliquis at that admission. Patient will be admitted to the hospital for CHF exacerbation with hypoxia. Case discussed with Dr. Rocha. - Lab Data Result diagrams: 09/13/21 06:56 09/13/21 06:56 Lab Results 09/13/21 09/13/21 09/13/21 Range/Units 06:56 06:56 06:56 WBC 10.4 (3.8-10.6) k/uL RBC 4.16 L (4.30-5.90) m/uL Hgb 12.2 L (13.0-17.5) gm/dL Hct 38.8 L (39.0-53.0) % MCV 93.4 (80.0-100.0) fL MCH 29.4 (25.0-35.0) pg MCHC 31.5 (31.0-37.0) g/dL RDW 15.9 H (11.5-15.5) % Plt Count 384 (150-450) k/uL MPV 7.0 Neutrophils % 79 % Lymphocytes % 12 % Monocytes % 6 % Eosinophils % 2 % Basophils % 0 % Neutrophils # 8.2 H (1.3-7.7) k/uL Lymphocytes # 1.2 (1.0-4.8) k/uL Monocytes # 0.6 (0-1.0) k/uL Eosinophils # 0.2 (0-0.7) k/uL Basophils # 0.0 (0-0.2) k/uL PT 10.2 (9.0-12.0) sec INR 0.9 (<1.2) APTT 27.9 (22.0-30.0) sec D-Dimer 0.61 H (<0.60) mg/L FEU Sodium 138 (137-145) mmol/L Potassium 3.7 (3.5-5.1) mmol/L Chloride 102 (98-107) mmol/L Carbon Dioxide 27 (22-30) mmol/L Anion Gap 9 mmol/L BUN 18 (9-20) mg/dL Creatinine 0.83 (0.66-1.25) mg/dL Est GFR (CKD-EPI)AfAm >90 (>60 ml/min/1.73 sqM) Est GFR (CKD-EPI)NonAf >90 (>60 ml/min/1.73 sqM) Glucose 141 H (74-99) mg/dL Plasma Lactic Acid Chinedu (0.7-2.0) mmol/L Calcium 8.3 L (8.4-10.2) mg/dL Magnesium 1.7 (1.6-2.3) mg/dL Total Bilirubin 1.0 (0.2-1.3) mg/dL AST 58 (17-59) U/L ALT 65 H (4-49) U/L Alkaline Phosphatase 372 H (38-126) U/L Troponin I (0.000-0.034) ng/mL NT-Pro-B Natriuret Pep pg/mL Total Protein 6.0 L (6.3-8.2) g/dL Albumin 3.2 L (3.5-5.0) g/dL 09/13/21 09/13/21 09/13/21 Range/Units 06:56 06:56 06:56 WBC (3.8-10.6) k/uL RBC (4.30-5.90) m/uL Hgb (13.0-17.5) gm/dL Hct (39.0-53.0) % MCV (80.0-100.0) fL MCH (25.0-35.0) pg MCHC (31.0-37.0) g/dL RDW (11.5-15.5) % Plt Count (150-450) k/uL MPV Neutrophils % % Lymphocytes % % Monocytes % % Eosinophils % % Basophils % % Neutrophils # (1.3-7.7) k/uL Lymphocytes # (1.0-4.8) k/uL Monocytes # (0-1.0) k/uL Eosinophils # (0-0.7) k/uL Basophils # (0-0.2) k/uL PT (9.0-12.0) sec INR (<1.2) APTT (22.0-30.0) sec D-Dimer (<0.60) mg/L FEU Sodium (137-145) mmol/L Potassium (3.5-5.1) mmol/L Chloride (98-107) mmol/L Carbon Dioxide (22-30) mmol/L Anion Gap mmol/L BUN (9-20) mg/dL Creatinine (0.66-1.25) mg/dL Est GFR (CKD-EPI)AfAm (>60 ml/min/1.73 sqM) Est GFR (CKD-EPI)NonAf (>60 ml/min/1.73 sqM) Glucose (74-99) mg/dL Plasma Lactic Acid Chinedu 1.5 (0.7-2.0) mmol/L Calcium (8.4-10.2) mg/dL Magnesium (1.6-2.3) mg/dL Total Bilirubin (0.2-1.3) mg/dL AST (17-59) U/L ALT (4-49) U/L Alkaline Phosphatase (38-126) U/L Troponin I 0.090 H* (0.000-0.034) ng/mL NT-Pro-B Natriuret Pep 28286 pg/mL Total Protein (6.3-8.2) g/dL Albumin (3.5-5.0) g/dL Disposition Clinical Impression: Hypoxia, CHF (congestive heart failure), Elevated troponin Disposition: ADMITTED IP TO THIS [facility] Decision Date: 09/13/21 Decision Time: 08:28
[2021-09-13 07:08] LABS: Basophils % (A) 0 %; Eosinophils # (A) 0.2 k/uL (0-0.7); Eosinophils % (A) 2 %; HCT 38.8 % (39.0-53.0); HGB 12.2 gm/dL (13.0-17.5); Lymphocytes # (A) 1.2 k/uL (1.0-4.8); Lymphocytes % (A) 12 %; MCH 29.4 pg (25.0-35.0); MCHC 31.5 g/dL (31.0-37.0); MCV 93.4 fL (80.0-100.0); Monocytes # (A) 0.6 k/uL (0-1.0); Monocytes % (A) 6 %; Neutrophils # (A) 8.2 k/uL (1.3-7.7); Neutrophils % (A) 79 %; Platelet Count 384 k/uL (150-450); RBC 4.16 m/uL (4.30-5.90); RDW 15.9 % (11.5-15.5); WBC 10.4 k/uL (3.8-10.6)
[2021-09-13 07:24] LABS: ALT 65 U/L (4-49); African American GFR (CKD) >90 (>60 ml/min/1.73 sqM); Albumin 3.2 g/dL (3.5-5.0); Anion Gap 9 mmol/L; Blood Urea Nitrogen 18 mg/dL (9-20); Calcium 8.3 mg/dL (8.4-10.2); Carbon Dioxide 27 mmol/L (22-30); Chloride 102 mmol/L (98-107); Glucose 141 mg/dL (74-99); Non-African American GFR(CKD) >90 (>60 ml/min/1.73 sqM); Sodium 138 mmol/L (137-145)
[2021-09-13 07:27] LABS: AST 58 U/L (17-59); Alkaline Phosphatase 372 U/L (38-126); Magnesium 1.7 mg/dL (1.6-2.3); Potassium 3.7 mmol/L (3.5-5.1)
[2021-09-13 07:29] LABS: INR 0.9 (<1.2); Partial Thromboplastin Time 27.9 sec (22.0-30.0); Prothrombin Time 10.2 sec (9.0-12.0)
--- NOTE | 2021-09-13 08:12 | XR ---
EXAMINATION TYPE: XR chest 2V DATE OF EXAM: 09/13/2021 COMPARISON: 09/11/2021 HISTORY: 66 year-old male shortness of breath TECHNIQUE: AP and lateral views FINDINGS: Median sternotomy wires are present with post-CABG clips in the mediastinum. Heart mildly enlarged. D iffuse interstitial density persists though slightly decreased from prior exam. Likely trace pleural effusions with a patchy posterior basilar opacity on the lateral view. IMPRESSION: Correlate for CHF with mild interstitial pulmonary edema though slightly improved from prior exam. Tr jennie effusions with adjacent atelectasis and/or consolidation.
[2021-09-13] MEDS ORDERED: FUROSEMIDE 10 MG/ML 4 ML VIAL IV STA (08:27)
[2021-09-13] MEDS ORDERED: NALOXONE 0.4 MG/ML 1 ML VIAL IV PRN (08:32)
[2021-09-13] MEDS ORDERED: ACETAMINOPHEN TAB 325 MG TAB PO PRN (08:32)
[2021-09-13] MEDS ORDERED: ALBUTEROL NEBULIZED 2.5 MG/3 ML INHALATION PRN (08:34)
[2021-09-13] MEDS: AMIODARONE 200 MG TAB PO SCH (09:56)
[2021-09-13] MEDS: APIXABAN 5 MG TAB PO SCH ×2 (09:56→21:03)
[2021-09-13] MEDS: ASPIRIN 81 MG PO SCH (09:57)
[2021-09-13] MEDS: GABAPENTIN 300 MG CAP PO SCH ×3 (09:57→21:02)
[2021-09-13] MEDS: DULoxetine HCL 60 MG CAPSULE.DR PO SCH ×2 (09:57→21:03)
[2021-09-13] MEDS: metFORMIN 500 MG TAB PO SCH ×2 (09:57→21:03)
[2021-09-13] MEDS: METOPROLOL TARTRATE 50 MG TAB PO SCH ×2 (09:57→21:03)
[2021-09-13] MEDS: PANTOPRAZOLE 40 MG TABLET PO SCH (10:01)
[2021-09-13 10:16] LABS: Glucose,Whole Blood 119 mg/dL (70-110)
[2021-09-13] MEDS: methocarbamoL 750 MG TAB PO SCH ×3 (12:02→21:02)
[2021-09-13 20:40] LABS: Glucose,Whole Blood 209 mg/dL (70-110)
[2021-09-13] MEDS: INSULIN DETEMIR (LEVEMIR) 100 UNIT/ML SYR SQ SCH (21:03)
[2021-09-13] MEDS: ATORVASTATIN 40 MG TAB PO SCH (21:03)
--- NOTE | 2021-09-13 22:46 | P.HPIM ---
History of Present Illness H&P Date: 09/13/21 Chief Complaint: shortness of breath Ashok Austin is a 66 yo M with PMH of systolic CHF, cardiomyopathy, T2DM, chronic pain who presented to the ED with shortness of breath. He was just discharged from the hospital yesterday on lasix and oxygen, he states he was never able to get oxygen and thus has been feeling winded both at rest and with exertion. He has continued on lasix since his discharge. on presentation, pt hypoxic, tachypneic, labs reviewed, trop decreased from earlier this week, BNP increased to 14k. Review of Systems All systems: negative Constitutional: Denies chills, Denies fever Eyes: denies blurred vision, denies pain Ears, nose, mouth and throat: Denies headache, Denies sore throat Cardiovascular: Denies chest pain, Denies shortness of breath Respiratory: Reports dyspnea, Denies cough Gastrointestinal: Denies abdominal pain, Denies diarrhea, Denies nausea, Denies vomiting Musculoskeletal: Denies myalgias Integumentary: Denies pruritus, Denies rash Neurological: Denies numbness, Denies weakness Psychiatric: Denies anxiety, Denies depression Endocrine: Denies fatigue, Denies weight change Past Medical History Past Medical History: Atrial Fibrillation, Coronary Artery Disease (CAD), Chest Pain / Angina, Diabetes Mellitus, GERD/Reflux, Hyperlipidemia, Hypertension, Myocardial Infarction (UT) Additional Past Medical History / Comment(s): Pt had CABG 07/2019 and had post op Afib/UTI with pseudomonas aeruginosa, ischemic cardiomyopathy, IDDM type II, past R scrotal abscess with sepsis, chronic lower back pain and bilateral leg pain, Last Myocardial Infarction Date:: 03/20/15 History of Any Multi-Drug Resistant Organisms: None Reported Past Surgical History: Back Surgery, Coronary Bypass/CABG, Heart Catheterization, Heart Catheterization With Stent, Orthopedic Surgery Additional Past Surgical History / Comment(s): 08/23/2019 CABG 3 vessels, PCI with total of 5 stents, L ankle ligament repair, R leg ORIF, low back surgery, colonoscopy. Past Anesthesia/Blood Transfusion Reactions: No Reported Reaction Additional Past Anesthesia/Blood Transfusion Reaction / Comment(s): Pt has received blood in past without reaction. Date of Last Stent Placement:: 02/2015 Smoking Status: Former smoker - Past Family History Sister(s) Family Medical History: Coronary Artery Disease (CAD), Hypertension Father Family Medical History: Coronary Artery Disease (CAD), Diabetes Mellitus, Deep Vein Thrombosis (DVT), Hypertension Additional Family Medical History / Comment(s): Father at age 58yrs. He of blood clot from leg injury that went to his heart. Medications and Allergies Home Medications Medication Instructions Recorded Confirmed Type DULoxetine HCL [Cymbalta] 60 mg PO BID 11/16/19 09/13/21 History oxyCODONE HCL [oxyCODONE HCL (IR)] 15 mg PO Q8H 03/01/20 09/13/21 History Aspirin 81 mg PO DAILY #30 chew 04/10/20 09/13/21 Rx Apixaban [Eliquis] 5 mg PO BID #60 tab 10/02/20 09/13/21 Rx Metoprolol Tartrate [Lopressor] 50 mg PO BID #60 tab 10/02/20 09/13/21 Rx Amiodarone [Cordarone] 200 mg PO DAILY 01/31/21 09/13/21 History Atorvastatin [Lipitor] 40 mg PO HS 01/31/21 09/13/21 History metFORMIN HCL [Glucophage] 1,000 mg PO BID 01/31/21 09/13/21 History Albuterol Sulfate [Albuterol 2 puff INHALATION RT-QID PRN 05/08/21 09/13/21 History Sulfate Hfa] Gabapentin 600 mg PO TID 09/11/21 09/13/21 History Insulin Glargine,Hum.rec.anlog 25 unit SQ HS 09/11/21 09/13/21 History [Basaglar Kwikpen U-100] Pantoprazole Sodium [Protonix] 40 mg PO DAILY 09/11/21 09/13/21 History fentaNYL 100MCG/HR PATCH 1 patch TRANSDERM Q72H 09/11/21 09/13/21 History [Duragesic 100MCG/HR] methocarbamoL [Robaxin-750] 750 mg PO TID 09/11/21 09/13/21 History Allergies Allergy/AdvReac Type Severity Reaction Status Date / Time No Known Allergies Allergy Verified 09/13/21 07:59 Physical Exam Vitals: Vital Signs Temp Pulse Pulse Resp BP BP Pulse Ox 09/13/21 18:28 97.8 F 63 18 180/78 97 09/13/21 17:37 66 16 168/96 96 09/13/21 16:06 56 L 16 144/78 96 09/13/21 14:02 55 L 16 175/88 95 09/13/21 12:00 97.9 F 60 16 157/99 95 09/13/21 11:36 58 L 09/13/21 11:27 59 L 09/13/21 10:08 71 16 182/99 96 09/13/21 08:25 57 L 16 173/88 97 09/13/21 08:04 61 22 181/87 96 09/13/21 06:01 98.3 F 68 26 H 186/105 87 L Intake and Output 09/13/21 09/13/21 09/13/21 06:59 14:59 22:59 Other: Voiding Method Urinal Weight 81.647 kg 81.647 kg General: well nourished, well developed, NAD. Vitals reviewed Eyes: PERRL, EOMI, conjunctiva normal HENT: normocephalic, mucus membranes moist Neck: supple, no JVD Lungs: normal respiratory effort, no wheezes or rales CV: Regular rate and rhythm, no murmur. Peripheral pulses 2+ Abdomen: soft, nondistended, no organomegaly Lymph: no cervical or axillary LAD Skin: warm and dry. Neuro: A&Ox3, normal mood and affect Results CBC & Chem 7: 09/13/21 06:56 09/13/21 06:56 Labs: Abnormal Lab Results - Last 24 Hours (Table) 09/13/21 09/13/21 09/13/21 Range/Units 06:56 06:56 06:56 RBC 4.16 L (4.30-5.90) m/uL Hgb 12.2 L (13.0-17.5) gm/dL Hct 38.8 L (39.0-53.0) % RDW 15.9 H (11.5-15.5) % Neutrophils # 8.2 H (1.3-7.7) k/uL D-Dimer 0.61 H (<0.60) mg/L FEU Glucose 141 H (74-99) mg/dL POC Glucose (mg/dL) (70-110) mg/dL Calcium 8.3 L (8.4-10.2) mg/dL ALT 65 H (4-49) U/L Alkaline Phosphatase 372 H (38-126) U/L Troponin I (0.000-0.034) ng/mL Total Protein 6.0 L (6.3-8.2) g/dL Albumin 3.2 L (3.5-5.0) g/dL 09/13/21 09/13/21 09/13/21 Range/Units 06:56 10:13 20:38 RBC (4.30-5.90) m/uL Hgb (13.0-17.5) gm/dL Hct (39.0-53.0) % RDW (11.5-15.5) % Neutrophils # (1.3-7.7) k/uL D-Dimer (<0.60) mg/L FEU Glucose (74-99) mg/dL POC Glucose (mg/dL) 119 H 209 H (70-110) mg/dL Calcium (8.4-10.2) mg/dL ALT (4-49) U/L Alkaline Phosphatase (38-126) U/L Troponin I 0.090 H* (0.000-0.034) ng/mL Total Protein (6.3-8.2) g/dL Albumin (3.5-5.0) g/dL Assessment and Plan Plan: 1. Acute hypoxic respiratory failure secondary to acute on chronic CHF and home oxygen noncompliance. IV lasix, Cardiology consult. Start supplemental O2. Continue remainder of home medications
[2021-09-14 06:23] LABS: Glucose,Whole Blood 72 mg/dL (70-110)
[2021-09-14] MEDS: PANTOPRAZOLE 40 MG TABLET PO SCH (06:47)
[2021-09-14] MEDS: methocarbamoL 750 MG TAB PO SCH ×2 (09:22→16:09)
[2021-09-14] MEDS: FUROSEMIDE 40 MG TAB PO SCH (09:22)
[2021-09-14] MEDS: AMIODARONE 200 MG TAB PO SCH (09:22)
[2021-09-14] MEDS: metFORMIN 500 MG TAB PO SCH ×2 (09:22→21:06)
[2021-09-14] MEDS: DULoxetine HCL 60 MG CAPSULE.DR PO SCH ×2 (09:22→21:07)
[2021-09-14] MEDS: ASPIRIN 81 MG PO SCH (09:22)
[2021-09-14] MEDS: APIXABAN 5 MG TAB PO SCH ×2 (09:22→21:07)
[2021-09-14] MEDS: GABAPENTIN 300 MG CAP PO SCH ×3 (09:23→21:06)
[2021-09-14] MEDS: METOPROLOL TARTRATE 50 MG TAB PO SCH ×2 (09:24→21:07)
[2021-09-14 11:49] LABS: Glucose,Whole Blood 101 mg/dL (70-110)
--- NOTE | 2021-09-14 13:36 | CONS ---
ALEJANDRO Pulido is a 66-year-old gentleman who was recently admitted to hospital with congestive heart failure. He was discharged home on and came back in yesterday with shortness of breath. He has known CAD, status post prior bypass surgery, ischemic cardiomyopathy, paroxysmal atrial fibrillation, hypertension, diabetes and dyslipidemia. It is unclear as to why, but he went home without any diuretics, and came back within 24 hours with shortness of breath, PND and orthopnea. He was found to be in heart failure with elevated BNP and mild elevation in troponin. He was treated with intravenous Lasix, with significant improvement in his symptoms. This morning he is on p.o. Lasix and appears comfortable and free of significant symptoms. PAST MEDICAL HISTORY: Significant for coronary artery disease, status post CABG, paroxysmal atrial fibrillation, hypertension, diabetes, dyslipidemia. MEDICATIONS: Medications at home include amiodarone 200 daily, Eliquis 5 b.i.d., Lipitor 40 daily, Neurontin, Glucophage, Lopressor, Protonix, insulin. ALLERGIES: There are NO KNOWN DRUG ALLERGIES. FAMILY HISTORY: Negative for premature coronary artery disease. SOCIAL HISTORY: Negative for current smoking, EtOH abuse or drug abuse. REVIEW OF SYSTEMS: HEENT is unremarkable. CARDIAC: As described above. RESPIRATORY: As described above. GI: Negative. GENITOURINARY: Negative. ALLERGY/IMMUNOLOGY: Negative. SKIN: Negative. MUSCULOSKELETAL: Significant for arthritis. PSYCHOSOCIAL: Negative. DERMATOLOGY: Negative. CONSTITUTIONAL: Negative. ONCOLOGICAL: Negative. CUTTER MACHINE: Negative. PHYSICAL EXAMINATION: Comfortable at rest. Afebrile. Vital signs are stable. There is no jugular venous distention. Carotid upstroke is normal. There is no bruit. Chest exam reveals good air entry bilaterally. There are no crackles or rhonchi. Heart exam reveals first and second heart sounds, an ejection systolic murmur in the aortic area. Abdomen is soft. Examination of extremities did not reveal any edema. Peripheral pulses are felt. EKG shows sinus rhythm, PVCs, left axis deviation. LABS: Labs show that the hemoglobin is 12.2. BNP is elevated. Troponin is mildly elevated, very similar to what it was last time. An echocardiogram from recent hospitalization showed severe LV dysfunction with an ejection fraction of 30% to 35%. ASSESSMENT: 1. Acute exacerbation of chronic systolic heart failure. 2. Coronary artery disease, status post coronary artery bypass grafting. 3. Paroxysmal atrial fibrillation. PLAN: Please discharge the patient home on Lasix. Continue the rest of his medications. Followup is already arranged. Will see him tomorrow if he is not discharged home yet. MMODL / IJN: [id number] /
[2021-09-14 16:47] LABS: Glucose,Whole Blood 94 mg/dL (70-110)
[2021-09-14 20:36] LABS: Glucose,Whole Blood 86 mg/dL (70-110)
[2021-09-14] MEDS: INSULIN DETEMIR (LEVEMIR) 100 UNIT/ML SYR SQ SCH (21:06)
[2021-09-14] MEDS: ATORVASTATIN 40 MG TAB PO SCH (21:07)
--- NOTE | 2021-09-14 22:33 | P.PN ---
Subjective Progress Note Date: 09/14/21 Ashok Austin is a 66 yo M with PMH of systolic CHF, cardiomyopathy, T2DM, chronic pain who presented to the ED with shortness of breath. He was just discharged from the hospital yesterday on lasix and oxygen, he states he was never able to get oxygen and thus has been feeling winded both at rest and with exertion. He has continued on lasix since his discharge. on presentation, pt hypoxic, tachypneic, labs reviewed, trop decreased from earlier this week, BNP increased to 14k. 09/14/2021 Patient is currently lying in bed. Awake alert and oriented x3. No complaints of chest pain. Shortness of breath did improve. Patient was given IV Lasix and changed to 40 mg daily now. Currently patient is requiring 2 L oxygen via nasal cannula and will titrate down to room air in the next 24 hours. Otherwise patient denied any complaints of nausea or vomiting. No fever no chills. No headache or dizziness or lightheadedness. Blood sugar is controlled. Patient is also on Eliquis for anticoagulation and amiodarone. Current medications reviewed. Objective - Vital Signs Vital signs: Vital Signs Temp 97.6 F 09/14/21 09:17 Pulse 61 09/14/21 09:17 Resp 20 09/14/21 09:17 BP 149/75 09/14/21 09:17 Pulse Ox 100 09/14/21 09:17 FiO2 Intake & Output 09/13/21 09/14/21 09/14/21 18:59 06:59 18:59 Intake Total 485 250 Balance 485 250 Weight 80.2 kg Intake: IV 10 Invasive Line 1 10 Oral 485 240 Other: Voiding Method Urinal Toilet Toilet Urinal Urinal # Voids 1 - Exam PHYSICAL EXAMINATION: Patient is lying in the bed comfortably, no acute distress, awake alert and oriented.. HEENT: Normocephalic. Neck is supple. Pupils reactive. Nostrils clear. Oral cavity is moist. Neck reveals no JVD, carotid bruits, or thyromegaly. CHEST EXAMINATION: Trachea is central. Symmetrical expansion. Minimal basilar crackles left-sided. No wheezing.. CARDIAC: Normal S1, S2 with no gallops. No murmurs ABDOMEN: Soft. Bowel sounds present. Nontender. No organomegaly. No abdominal bruits. Extremities, trace ankle edema. No clubbing or cyanosis Neurologically awake, alert, oriented x3 with well-coordinated movements. No focal deficits noted Skin: No rash or skin lesions. Psychiatric: Coperative. Nonsuicidal, anxious. Musculoskeletal: No joint swelling or deformity. Normal range of motion. - Labs CBC & Chem 7: 09/13/21 06:56 09/13/21 06:56 Labs: Abnormal Lab Results - Last 24 Hours (Table) 09/13/21 Range/Units 20:38 POC Glucose (mg/dL) 209 H (70-110) mg/dL Assessment and Plan Assessment: Acute hypoxic aspiratory failure secondary to CHF exacerbation Acute on chronic CHF with systolic dysfunction. Coronary artery disease history of CABG Paroxysmal atrial fibrillation on anticoagulation with Eliquis Hypertension Hyperlipidemia GERD Diabetes type 2 Ischemic cardiomyopathy Previous history of smoking DVT prophylaxis patient is already on full anticoagulation Plan: Patient was given IV Lasix and changed to 40 mg daily. Continue with aspirin, statins, Eliquis and amiodarone. Continue with insulin regimen and sliding scale. Follow-up CBC and BMP tomorrow. Titrate down oxygen to room air. Anticipate discharge in the next 24 hours with more clinical improvement. Time with Patient: Greater than 30
[2021-09-15] MEDS: methocarbamoL 750 MG TAB PO SCH ×4 (00:18→21:48)
[2021-09-15 06:54] LABS: Glucose,Whole Blood 57 mg/dL (70-110)
[2021-09-15 07:23] LABS: Glucose,Whole Blood 59 mg/dL (70-110)
[2021-09-15 07:37] LABS: Glucose,Whole Blood 85 mg/dL (70-110)
[2021-09-15] MEDS: AMIODARONE 200 MG TAB PO SCH (08:16)
[2021-09-15] MEDS: APIXABAN 5 MG TAB PO SCH ×2 (08:16→21:47)
[2021-09-15] MEDS: PANTOPRAZOLE 40 MG TABLET PO SCH (08:16)
[2021-09-15] MEDS: ASPIRIN 81 MG PO SCH (08:16)
[2021-09-15] MEDS: GABAPENTIN 300 MG CAP PO SCH ×3 (08:17→21:48)
[2021-09-15] MEDS: DULoxetine HCL 60 MG CAPSULE.DR PO SCH ×2 (08:17→21:47)
[2021-09-15] MEDS: FUROSEMIDE 40 MG TAB PO SCH (08:17)
[2021-09-15] MEDS: METOPROLOL TARTRATE 50 MG TAB PO SCH ×2 (08:18→21:48)
[2021-09-15] MEDS: metFORMIN 500 MG TAB PO SCH ×2 (08:18→21:46)
[2021-09-15 09:38] LABS: Basophils # (A) 0.06 X 10*3/uL (0.00-0.10); Basophils % (A) 0.5 %; Eosinophils % (A) 0.9 %; HCT 36.8 % (39.6-50.0); HGB 11.4 g/dL (13.0-17.0); Immature Grans, Automated 0.4 %; Lymphocytes # (A) 1.02 X 10*3/uL (0.90-5.00); Lymphocytes % (A) 9.2 %; MCH 28.6 pg (27.0-32.0); MCV 92.5 fL (80.0-97.0); Mean Platelet Volume 9.9 fL (9.5-12.2); Monocytes # (A) 1.05 X 10*3/uL (0.20-1.00); Monocytes % (A) 9.4 %; NRBC Per 100 WBC 0 /100 WBCS (0.0-0.0); Neutrophils # (A) 8.85 X 10*3/uL (1.80-7.70); Neutrophils % (A) 79.6 %; Platelet Count 367 X 10*3/uL (140-440); RBC 3.98 X 10*6/uL (4.40-5.60); RDW 15.3 % (11.5-14.5); WBC 11.13 X 10*3/uL (4.50-10.00)
[2021-09-15 09:58] LABS: African American GFR (CKD) 81.8 (60.0-200.0); Anion Gap 13.9 mmol/L (10.00-18.00); Blood Urea Nitrogen 19.8 mg/dL (9.0-27.0); Calcium 8.5 mg/dL (8.7-10.3); Carbon Dioxide 26.1 mmol/L (20.0-27.5); Non-African American GFR(CKD) 70.6 (60.0-200.0); Potassium 3.3 mmol/L (3.5-5.5)
[2021-09-15 11:45] LABS: Glucose,Whole Blood 171 mg/dL (70-110)
[2021-09-15] MEDS ORDERED: POTASSIUM CHLORIDE ER 20 MEQ TAB.ER PO SCH (14:45)
--- NOTE | 2021-09-15 16:19 | PN ---
PROGRESS NOTE FOLLOW-UP NOTE: Patient is admitted to hospital with exacerbation of congestive heart failure. We resumed his Lasix. He is feeling much better. Shortness of breath has resolved. He is currently on amiodarone 200 daily, Eliquis 5 b.i.d., aspirin, Lasix 40 daily, Lopressor 50 b.i.d. On exam, heart rate is 70 beats per minute, blood pressure is 150/86, respiratory rate is 18. Chest exam reveals good air entry bilaterally. Heart exam reveals first and second heart sounds, systolic murmur at the left lower sternal border. Abdomen is soft. Examination of extremities did not reveal any edema. Peripheral pulses are felt. Labs show that the hemoglobin is .4, platelet count is 367. Potassium is 3.3. His creatinine is 1.1. ASSESSMENT: 1. Acute exacerbation of chronic congestive heart failure. 2. Paroxysmal atrial fibrillation. PLAN: Continue current medications. Start the patient on K-Dur 20 mEq daily. MMODL / IJN: [id number] /
[2021-09-15] MEDS: ATORVASTATIN 40 MG TAB PO SCH (21:46)
[2021-09-15] MEDS: INSULIN DETEMIR (LEVEMIR) 100 UNIT/ML SYR SQ SCH (21:48)
[2021-09-15 21:49] LABS: Glucose,Whole Blood 197 mg/dL (70-110)
--- NOTE | 2021-09-16 00:53 | P.PN ---
Subjective Progress Note Date: 09/15/21 Ashok Austin is a 66 yo M with PMH of systolic CHF, cardiomyopathy, T2DM, chronic pain who presented to the ED with shortness of breath. He was just discharged from the hospital yesterday on lasix and oxygen, he states he was never able to get oxygen and thus has been feeling winded both at rest and with exertion. He has continued on lasix since his discharge. on presentation, pt hypoxic, tachypneic, labs reviewed, trop decreased from earlier this week, BNP increased to 14k. 09/14/2021 Patient is currently lying in bed. Awake alert and oriented x3. No complaints of chest pain. Shortness of breath did improve. Patient was given IV Lasix and changed to 40 mg daily now. Currently patient is requiring 2 L oxygen via nasal cannula and will titrate down to room air in the next 24 hours. Otherwise patient denied any complaints of nausea or vomiting. No fever no chills. No headache or dizziness or lightheadedness. Blood sugar is controlled. Patient is also on Eliquis for anticoagulation and amiodarone. 09/15/2021 Patient is currently resting in bed comfortably. Awake alert and oriented x3. On oxygen 2 L via nasal cannula. Lignospan continued on Lasix 40 mg daily. Patient has oxygen concentrator at home but currently not using. Denied any nausea vomiting. No chest pain or shortness of breath. Blood sugar is better controlled. Laboratory test showed WBC 11.1 hemoglobin 9.4 and platelets 367 sodium 141 potassium 3.3 chloride 101 bicarb is 26 BUN 19.8 and creatinine 1.1. Cardiology is on board. Anticipate discharge after verifying oxygen concentrator availability tomorrow. Current medications reviewed. Objective - Vital Signs Vital signs: Vital Signs Temp 98.3 F 09/15/21 20:58 Pulse 72 09/15/21 20:58 Resp 16 09/15/21 20:58 BP 159/88 09/15/21 20:58 Pulse Ox 98 09/15/21 20:58 FiO2 Intake & Output 09/15/21 09/15/21 09/16/21 06:59 18:59 06:59 Output Total 500 Balance -500 Weight 77.706 kg Output: Emesis 500 Other: Voiding Method Toilet Toilet Urinal Urinal # Voids 3 - Exam PHYSICAL EXAMINATION: Patient is lying in the bed comfortably, no acute distress, awake alert and oriented.. HEENT: Normocephalic. Neck is supple. Pupils reactive. Nostrils clear. Oral cavity is moist. Neck reveals no JVD, carotid bruits, or thyromegaly. CHEST EXAMINATION: Trachea is central. Symmetrical expansion. Minimal basilar crackles left-sided. No wheezing.. CARDIAC: Normal S1, S2 with no gallops. No murmurs ABDOMEN: Soft. Bowel sounds present. Nontender. No organomegaly. No abdominal bruits. Extremities, trace ankle edema. No clubbing or cyanosis Neurologically awake, alert, oriented x3 with well-coordinated movements. No focal deficits noted Skin: No rash or skin lesions. Psychiatric: Coperative. Nonsuicidal, anxious. Musculoskeletal: No joint swelling or deformity. Normal range of motion. - Labs CBC & Chem 7: 09/15/21 06:31 09/15/21 06:24 Labs: Abnormal Lab Results - Last 24 Hours (Table) 09/15/21 09/15/21 09/15/21 Range/Units 06:24 06:31 06:52 WBC 11.13 H (4.50-10.00) X 10*3/uL RBC 3.98 L (4.40-5.60) X 10*6/uL Hgb 11.4 L (13.0-17.0) g/dL Hct 36.8 L (39.6-50.0) % MCHC 31.0 L (32.0-37.0) g/dL RDW 15.3 H (11.5-14.5) % Immature Gran # 0.05 H (0.00-0.04) X 10*3/uL Neutrophils # 8.85 H (1.80-7.70) X 10*3/uL Monocytes # 1.05 H (0.20-1.00) X 10*3/uL Potassium 3.3 L (3.5-5.5) mmol/L Glucose 58 L (70-110) mg/dL POC Glucose (mg/dL) 57 L (70-110) mg/dL Calcium 8.5 L (8.7-10.3) mg/dL 09/15/21 09/15/21 09/15/21 Range/Units 07:22 11:44 21:48 WBC (4.50-10.00) X 10*3/uL RBC (4.40-5.60) X 10*6/uL Hgb (13.0-17.0) g/dL Hct (39.6-50.0) % MCHC (32.0-37.0) g/dL RDW (11.5-14.5) % Immature Gran # (0.00-0.04) X 10*3/uL Neutrophils # (1.80-7.70) X 10*3/uL Monocytes # (0.20-1.00) X 10*3/uL Potassium (3.5-5.5) mmol/L Glucose (70-110) mg/dL POC Glucose (mg/dL) 59 L 171 H 197 H (70-110) mg/dL Calcium (8.7-10.3) mg/dL Assessment and Plan Assessment: Acute hypoxic aspiratory failure secondary to CHF exacerbation Acute on chronic CHF with systolic dysfunction. Coronary artery disease history of CABG Paroxysmal atrial fibrillation on anticoagulation with Eliquis Hypertension Hyperlipidemia GERD Diabetes type 2 Ischemic cardiomyopathy Previous history of smoking DVT prophylaxis patient is already on full anticoagulation Plan: Patient was given IV Lasix and changed to 40 mg daily. Continue with aspirin, statins, Eliquis and amiodarone. Continue with insulin regimen and sliding scale. Follow-up CBC and BMP tomorrow. Titrate down oxygen to room air. Ant icipate discharge in the next 24 hours with more clinical improvement. Time with Patient: Greater than 30
[2021-09-16 06:46] LABS: Glucose,Whole Blood 67 mg/dL (70-110)
[2021-09-16 07:16] LABS: Glucose,Whole Blood 90 mg/dL (70-110)
[2021-09-16 08:42] LABS: Basophils # (A) 0.05 X 10*3/uL (0.00-0.10); Basophils % (A) 0.5 %; HGB 10.7 g/dL (13.0-17.0); Immature Grans, Automated 0.5 %; Lymphocytes # (A) 0.82 X 10*3/uL (0.90-5.00); Lymphocytes % (A) 7.8 %; MCH 28.6 pg (27.0-32.0); MCHC 30.6 g/dL (32.0-37.0); MCV 93.6 fL (80.0-97.0); Mean Platelet Volume 9.4 fL (9.5-12.2); Monocytes # (A) 0.95 X 10*3/uL (0.20-1.00); Monocytes % (A) 9.1 %; NRBC Per 100 WBC 0 /100 WBCS (0.0-0.0); Neutrophils # (A) 8.51 X 10*3/uL (1.80-7.70); Neutrophils % (A) 81.1 %; Platelet Count 339 X 10*3/uL (140-440); RBC 3.74 X 10*6/uL (4.40-5.60); RDW 15.4 % (11.5-14.5); WBC 10.48 X 10*3/uL (4.50-10.00)
--- NOTE | 2021-09-16 08:47 | P.PN ---
Subjective Patient resting comfortably in bed. He is not short of breath at rest He denies any chest discomfort He came in complaining of shortness of breath and he felt as if he was getting smothered He underwent a 2-D echo and Doppler study on 09/12/2021 Left ventricular ejection fraction 30-35% Inferior wall hypokinesis and anteroseptal hypokinesis Recent computed tomography scan has shown acute on chronic pancreatitis on the of this month CT of the chest on September 11 this year showed small bilateral pleural effusions and no evidence for pulmonary embolism Mild bibasilar linear scarring/atelectasis In July 2020 atherosclerotic block was noted with up to 50% stenosis of the iliac arteries Ascending at a 3 cm On examination reduced air entry bilaterally No murmurs were precordium line no JVD Patient resting comfortably in bed Patient on oxygen Impression Patient presenting with heart failure symptoms, BNP 14,700 Acute and chronic congestive heart failure Ischemic cardio myopathy with reduced systolic function at 30-35% by recent echo Elevated alkaline phosphatase, known pancreatitis Borderline troponins but denied any chest discomfort Normal renal function Blood pressure mostly in the 150s and 160s History of paroxysmal atrial fibrillation Patient on amiodarone 200 mg daily Patient is not on PRAMOD inhibitor as, angiotensin receptor blockers or ENTRESTO, not Lasix at home, per the home medication list Suggest Reduce amiodarone to 100 mg by mouth daily Switched to metoprolol succinate 50 mg at noontime Stop oral potassium Continue aspirin and atorvastatin 40 mg daily Lipid panel Continue ELIQUIS 5 g twice daily for stroke prevention, patient has a history of paroxysmal atrial fibrillation This gentleman is blood pressure can tolerate ENTRESTO While initiating ENTRESTO avoid IV Lasix. Patient is stable from his chronic standpoint to initiate ENTRESTO We will watch renal function and potassium and then add spironolactone later Maximize medical treatment for heart failure Objective - Vital Signs Vital signs: Vital Signs Temp 97.8 F 09/16/21 07:21 Pulse 67 09/16/21 07:21 Resp 19 09/16/21 07:21 BP 134/70 09/16/21 07:21 Pulse Ox 97 09/16/21 07:21 FiO2 Intake & Output 09/15/21 09/16/21 09/16/21 18:59 06:59 18:59 Weight 79.4 kg Other: Voiding Method Toilet Toilet Toilet Urinal Urinal Urinal # Voids 3 - Labs CBC & Chem 7: 09/16/21 06:14 09/15/21 06:24 Labs: Abnormal Lab Results - Last 24 Hours (Table) 09/15/21 09/15/21 09/15/21 Range/Units 06:24 06:31 11:44 WBC 11.13 H (4.50-10.00) X 10*3/uL RBC 3.98 L (4.40-5.60) X 10*6/uL Hgb 11.4 L (13.0-17.0) g/dL Hct 36.8 L (39.6-50.0) % MCHC 31.0 L (32.0-37.0) g/dL RDW 15.3 H (11.5-14.5) % MPV (9.5-12.2) fL Immature Gran # 0.05 H (0.00-0.04) X 10*3/uL Neutrophils # 8.85 H (1.80-7.70) X 10*3/uL Lymphocytes # (0.90-5.00) X 10*3/uL Monocytes # 1.05 H (0.20-1.00) X 10*3/uL Potassium 3.3 L (3.5-5.5) mmol/L Glucose 58 L (70-110) mg/dL POC Glucose (mg/dL) 171 H (70-110) mg/dL Calcium 8.5 L (8.7-10.3) mg/dL 09/15/21 09/16/21 09/16/21 Range/Units 21:48 06:14 06:45 WBC 10.48 H (4.50-10.00) X 10*3/uL RBC 3.74 L (4.40-5.60) X 10*6/uL Hgb 10.7 L (13.0-17.0) g/dL Hct 35.0 L (39.6-50.0) % MCHC 30.6 L (32.0-37.0) g/dL RDW 15.4 H (11.5-14.5) % MPV 9.4 L (9.5-12.2) fL Immature Gran # 0.05 H (0.00-0.04) X 10*3/uL Neutrophils # 8.51 H (1.80-7.70) X 10*3/uL Lymphocytes # 0.82 L (0.90-5.00) X 10*3/uL Monocytes # (0.20-1.00) X 10*3/uL Potassium (3.5-5.5) mmol/L Glucose (70-110) mg/dL POC Glucose (mg/dL) 197 H 67 L (70-110) mg/dL Calcium (8.7-10.3) mg/dL
[2021-09-16 09:06] LABS: African American GFR (CKD) 81.8 (60.0-200.0); Anion Gap 11.8 mmol/L (10.00-18.00); BUN/Creat Ratio 17.73 Ratio (12.00-20.00); Blood Urea Nitrogen 19.5 mg/dL (9.0-27.0); Calcium 8.3 mg/dL (8.7-10.3); Carbon Dioxide 26.2 mmol/L (20.0-27.5); Non-African American GFR(CKD) 70.6 (60.0-200.0); Potassium 3.7 mmol/L (3.5-5.5)
[2021-09-16] MEDS: PANTOPRAZOLE 40 MG TABLET PO SCH (09:11)
[2021-09-16] MEDS: ASPIRIN 81 MG PO SCH (09:11)
[2021-09-16] MEDS: methocarbamoL 750 MG TAB PO SCH ×3 (09:11→20:39)
[2021-09-16] MEDS: FUROSEMIDE 40 MG TAB PO SCH (09:12)
[2021-09-16] MEDS: metFORMIN 500 MG TAB PO SCH ×2 (09:12→20:38)
[2021-09-16] MEDS: DULoxetine HCL 60 MG CAPSULE.DR PO SCH ×2 (09:12→20:38)
[2021-09-16] MEDS: APIXABAN 5 MG TAB PO SCH ×2 (09:12→20:39)
[2021-09-16] MEDS: GABAPENTIN 300 MG CAP PO SCH ×3 (09:12→20:38)
[2021-09-16] MEDS: AMIODARONE 100 MG TAB PO SCH (10:15)
[2021-09-16] MEDS: SACUBITRIL/VALSARTAN 24 MG-26 MG TABLET PO SCH ×2 (10:15→20:39)
[2021-09-16 11:06] LABS: Glucose,Whole Blood 138 mg/dL (70-110)
[2021-09-16] MEDS: METOPROLOL SUCCINATE (ER) 50 MG TAB.ER.24H PO SCH (11:47)
--- NOTE | 2021-09-16 14:41 | P.PN ---
Subjective Progress Note Date: 09/16/21 Principal diagnosis: Dexter Austin is 66-year-old male with past medical history of CABG, ischemic cardiomyopathy, proximal A. fib, diabetes mellitus type 2, recently admitted wit h acute systolic CHF, presented to the ER with increased shortness of breath and multiple other medical issues. Ashok Austin is a 66 yo M with PMH of systolic CHF, cardiomyopathy, T2DM, chronic pain who presented to the ED with shortness of breath. He was just discharged from the hospital yesterday on lasix and oxygen, he states he was never able to get oxygen and thus has been feeling winded both at rest and with exertion. He has continued on lasix since his discharge. on presentation, pt h ypoxic, tachypneic, labs reviewed, trop decreased from earlier this week, BNP increased to 14k. 09/16/2021 continues on oral Lasix, amiodarone and metoprolol. Denies chest pain, palpitations or increasing shortness of breath. Maintaining O2 sats in the 90s on 2 L nasal cannula. Paroximal atrial fibrillation, anticoagulated on Eliquis. Objective - Vital Signs Vital signs: Vital Signs Temp 97.8 F 09/16/21 07:21 Pulse 67 09/16/21 07:21 Resp 19 09/16/21 07:21 BP 134/70 09/16/21 07:21 Pulse Ox 97 09/16/21 07:21 FiO2 Intake & Output 09/15/21 09/16/21 09/16/21 18:59 06:59 18:59 Weight 79.4 kg Other: Voiding Method Toilet Toilet Toilet Urinal Urinal Urinal # Voids 3 - Exam General: Alert and oriented 3, Sitting up in bed, no acute distress HENT: normocephalic, mucus membranes moist Neck: supple, no JVD Lungs: normal respiratory effort, wheezes or rales CV: Regular rate and rhythm, no murmur. Peripheral pulses 2+ Abdomen: soft, nondistended, no organomegaly,+BS Skin: warm and dry. Neuro: No focal deficits. - Labs CBC & Chem 7: 09/16/21 06:14 09/16/21 06:14 Labs: Abnormal Lab Results - Last 24 Hours (Table) 09/15/21 09/15/21 09/15/21 Range/Units 06:24 11:44 21:48 WBC (4.50-10.00) X 10*3/uL RBC (4.40-5.60) X 10*6/uL Hgb (13.0-17.0) g/dL Hct (39.6-50.0) % MCHC (32.0-37.0) g/dL RDW (11.5-14.5) % MPV (9.5-12.2) fL Immature Gran # (0.00-0.04) X 10*3/uL Neutrophils # (1.80-7.70) X 10*3/uL Lymphocytes # (0.90-5.00) X 10*3/uL Potassium 3.3 L (3.5-5.5) mmol/L Glucose 58 L (70-110) mg/dL POC Glucose (mg/dL) 171 H 197 H (70-110) mg/dL Calcium 8.5 L (8.7-10.3) mg/dL 09/16/21 09/16/21 09/16/21 Range/Units 06:14 06:14 06:45 WBC 10.48 H (4.50-10.00) X 10*3/uL RBC 3.74 L (4.40-5.60) X 10*6/uL Hgb 10.7 L (13.0-17.0) g/dL Hct 35.0 L (39.6-50.0) % MCHC 30.6 L (32.0-37.0) g/dL RDW 15.4 H (11.5-14.5) % MPV 9.4 L (9.5-12.2) fL Immature Gran # 0.05 H (0.00-0.04) X 10*3/uL Neutrophils # 8.51 H (1.80-7.70) X 10*3/uL Lymphocytes # 0.82 L (0.90-5.00) X 10*3/uL Potassium (3.5-5.5) mmol/L Glucose 69 L (70-110) mg/dL POC Glucose (mg/dL) 67 L (70-110) mg/dL Calcium 8.3 L (8.7-10.3) mg/dL Assessment and Plan Assessment: Acute on chronic systolic CHF Acute hypoxic respiratory failure secondary to the above and home oxygen noncompliance Ischemic cardiomyopathy, EF 30-35% CAD Elevated LFTs, CT abdomen and pelvis reported nonacute process Diabetes mellitus type 2 Chronic pain Plan: Continue on current medication regime ,monitoring and symptomatic treatment. Further adjustments to amiodarone and metoprolol as per cardiology noted. Continues on oral Lasix with Entresto initiated. Close monitoring of renal function, with repeat labs ordered for a.m. Telemetry ordered .Case management to arrange for home oxygen and a new oxygen concentrator that patient states was left at his old house. Discharge planning in progress for tomorrow pending final DC recommendations and clearance per cardiology. The impression and plan of care has been dictated as directed. : I performed a history and examination of this patient, discussed the same with the dictator. I agree with the dictator's note ,documented as a scribe. Any additional findings or plans will be noted.
[2021-09-16 16:04] LABS: Glucose,Whole Blood 177 mg/dL (70-110)
[2021-09-16 18:49] LABS: Chol/HDL Ratio 2.25 Ratio; LDL Cholesterol,Calculated 43.4 mg/dL (0.0-131.0); Magnesium 1.4 mg/dL (1.5-2.4); VLDL Calculation 11.54 mg/dL (5.00-40.00)
[2021-09-16] MEDS: ATORVASTATIN 40 MG TAB PO SCH (20:38)
[2021-09-16 20:39] LABS: Glucose,Whole Blood 246 mg/dL (70-110)
[2021-09-16] MEDS: INSULIN DETEMIR (LEVEMIR) 100 UNIT/ML SYR SQ SCH (20:39)
[2021-09-17 07:11] LABS: Glucose,Whole Blood 62 mg/dL (70-110)
[2021-09-17 07:27] LABS: Glucose,Whole Blood 78 mg/dL (70-110)
[2021-09-17] MEDS: PANTOPRAZOLE 40 MG TABLET PO SCH (09:43)
[2021-09-17] MEDS: GABAPENTIN 300 MG CAP PO SCH ×2 (09:43→17:58)
[2021-09-17] MEDS: DULoxetine HCL 60 MG CAPSULE.DR PO SCH ×2 (09:43→21:29)
[2021-09-17] MEDS: ASPIRIN 81 MG PO SCH (09:43)
[2021-09-17] MEDS: AMIODARONE 100 MG TAB PO SCH (09:43)
[2021-09-17] MEDS: APIXABAN 5 MG TAB PO SCH ×2 (09:43→21:28)
[2021-09-17] MEDS: METOPROLOL SUCCINATE (ER) 50 MG TAB.ER.24H PO SCH ×2 (09:43→09:45)
[2021-09-17] MEDS: metFORMIN 500 MG TAB PO SCH ×2 (09:45→21:29)
[2021-09-17] MEDS: FUROSEMIDE 40 MG TAB PO SCH (09:45)
[2021-09-17] MEDS: methocarbamoL 750 MG TAB PO SCH ×3 (09:45→22:39)
[2021-09-17] MEDS: SACUBITRIL/VALSARTAN 24 MG-26 MG TABLET PO SCH ×3 (09:46→21:29)
--- NOTE | 2021-09-17 10:00 | P.DS ---
Providers Date of admission: 09/13/21 08:10 Expected date of discharge: 09/17/21 Attending physician: Puma Lovell MD Consults: 09/13/21 08:32 Consult Physician Routine Consulting Provider: Heriberto Arredondo Consult Reason/Comments: CHF, hypoxia Do you want consulting provider notified?: Yes, Notify in am Primary care physician: Puma Lovell MD Hospital Course: Final diagnoses Acute on chronic systolic CHF Acute hypoxic respiratory failure secondary to the above and home oxygen noncompliance Ischemic cardiomyopathy, EF 30-35% CAD Elevated LFTs, CT abdomen and pelvis reported nonacute process Diabetes mellitus type 2 Chronic pain Hospital course:Dexter Austin is 66-year-old male with past medical history of CABG, ischemic cardiomyopathy, proximal A. fib, diabetes mellitus type 2, recently admitted with acute systolic CHF, presented to the ER with increased shortness of breath and multiple other medical issues. Ashok Austin is a 66 yo M with PMH of systolic CHF, cardiomyopathy, T2DM, chronic pain who presented to the ED with shortness of breath. He was just discharged from the hospital yesterday on lasix and oxygen, he states he was never able to get oxygen and thus has been feeling winded both at rest and with exertion. He has continued on lasix since his discharge. on presentation, pt hypoxic, tachypneic, labs reviewed, trop decreased from earlier this week, BNP increased to 14k. 09/16/2021 continues on oral Lasix, amiodarone and metoprolol. Denies chest pain, palpitations or increasing shortness of breath. Maintaining O2 sats in the 90s on 2 L nasal cannula. Paroximal atrial fibrillation, anticoagulated on Eliquis. Further adjustments to amiodarone and metoprolol as per cardiology noted. Continues on oral Lasix with Entresto initiated. Close monitoring of renal function.Case management to arrange for home oxygen and a new oxygen concentrator that patient states was left at his old house. Blood pressure stable on Entresto, creatinine pending. Maintaining O2 sats in the 90s on 2 L nasal cannula O2, baseline. Denies chest pain, palpitations or shortness of breath. Patient will be discharged home today in stable condition with guarded prognosis pending, TC recommendations and clearance per cardiology. The impression and plan of care has been dictated as directed. : I performed a history and examination of this patient, discussed the same with the dictator. I agree with the dictator's note ,documented as a scribe. Any additional findings or plans will be noted. Patient Condition at Discharge: Stable Plan - Discharge Summary Discharge Rx Participant: Yes New Discharge Prescriptions: New Amiodarone [Cordarone] 100 mg PO DAILY #30 tab Metoprolol Succinate (ER) [Toprol XL] 50 mg PO DAILY #30 tab Furosemide [Lasix] 40 mg PO DAILY #30 tab Sacubitril/Valsartan [Entresto 24 mg-26 mg Tablet] 2 each PO BID 30 Days #120 tab Continue DULoxetine HCL [Cymbalta] 60 mg PO BID oxyCODONE HCL [oxyCODONE HCL (IR)] 15 mg PO Q8H Aspirin 81 mg PO DAILY #30 chew Apixaban [Eliquis] 5 mg PO BID #60 tab Atorvastatin [Lipitor] 40 mg PO HS Gabapentin 600 mg PO TID metFORMIN HCL [Glucophage] 1,000 mg PO BID Albuterol Sulfate [Albuterol Sulfate Hfa] 2 puff INHALATION RT-QID PRN PRN Reason: Shortness Of Breath fentaNYL 100MCG/HR PATCH [Duragesic 100MCG/HR] 1 patch TRANSDERM Q72H methocarbamoL [Robaxin-750] 750 mg PO TID Insulin Glargine,Hum.rec.anlog [Basaglar Kwikpen U-100] 25 unit SQ HS Pantoprazole Sodium [Protonix] 40 mg PO DAILY Discontinued Metoprolol Tartrate [Lopressor] 50 mg PO BID #60 tab Amiodarone [Cordarone] 200 mg PO DAILY Discharge Medication List DULoxetine HCL [Cymbalta] 60 mg PO BID 11/16/19 [History] oxyCODONE HCL [oxyCODONE HCL (IR)] 15 mg PO Q8H 03/01/20 [History] Aspirin 81 mg PO DAILY #30 chew 04/10/20 [Rx] Apixaban [Eliquis] 5 mg PO BID #60 tab 10/02/20 [Rx] Atorvastatin [Lipitor] 40 mg PO HS 01/31/21 [History] metFORMIN HCL [Glucophage] 1,000 mg PO BID 01/31/21 [History] Albuterol Sulfate [Albuterol Sulfate Hfa] 2 puff INHALATION RT-QID PRN 05/08/21 [History] Gabapentin 600 mg PO TID 09/11/21 [History] Insulin Glargine,Hum.rec.anlog [Basaglar Kwikpen U-100] 25 unit SQ HS 09/11/21 [History] Pantoprazole Sodium [Protonix] 40 mg PO DAILY 09/11/21 [History] fentaNYL 100MCG/HR PATCH [Duragesic 100MCG/HR] 1 patch TRANSDERM Q72H 09/11/21 [History] methocarbamoL [Robaxin-750] 750 mg PO TID 09/11/21 [History] Amiodarone [Cordarone] 100 mg PO DAILY #30 tab 09/16/21 [Rx] Furosemide [Lasix] 40 mg PO DAILY #30 tab 09/16/21 [Rx] Metoprolol Succinate (ER) [Toprol XL] 50 mg PO DAILY #30 tab 09/16/21 [Rx] Sacubitril/Valsartan [Entresto 24 mg-26 mg Tablet] 2 each PO BID 30 Days #120 tab 09/17/21 [Rx] Follow up Appointment(s)/Referral(s): Puma Lovell MD [Primary Care Provider] - 09/18/21 10:15 am (At [place] location) Donovan Hua MD [STAFF PHYSICIAN] - 09/26/21 8:30 am Ambulatory/Diagnostic Orders: Basic Metabolic Panel [LAB.AMB] Time Frame: 3 Days, Location: None Selected Activity/Diet/Wound Care/Special Instructions: O2 with new concentrator at ok.
[2021-09-17 10:07] LABS: African American GFR (CKD) 91.8 (60.0-200.0); Anion Gap 9.7 mmol/L (10.00-18.00); BUN/Creat Ratio 15.6 Ratio (12.00-20.00); Blood Urea Nitrogen 15.6 mg/dL (9.0-27.0); Calcium 8.3 mg/dL (8.7-10.3); Carbon Dioxide 30.3 mmol/L (20.0-27.5); Non-African American GFR(CKD) 79.2 (60.0-200.0)
--- NOTE | 2021-09-17 11:18 | P.PN ---
Subjective This is a 65-year-old male with a past medical history significant for type 2 diabetes, hypertension, hyperlipidemia, paroxysmal atrial fibrillation on Eliquis, congestive heart failure, ischemic cardiac myopathy, and coronary artery disease with previous PCI to the RCA in 2007 and 2014, former nicotine dependence, marijuana use. Patient also underwent CABG x 3 in July 2019. Patient follows in the office with Dr. Hua. We have been asked to see the patient in consultation for congestive heart failure. Patient presents with complaints of shortness of breath, patient has been treated with IV Lasix, now transitioned to PO Lasix and Entresto was added. He underwent a 2-D echo and Doppler study on 09/12/2021, Left ventricular ejection fraction 30-35%. Inferior wall hypokinesis and anteroseptal hypokinesis Patient seen and examined at bedside, no acute distress. Symptoms have improved. BP continues to be elevated, 182/84, BP did improved overnight. I/Os not documented. Denies shortness of breath. He is currently maintained on amiodarone 100 mg daily, Eliquis 5 mg twice a day, aspirin 80 mg daily, atorvastatin 40 mg nightly, Lasix 40 mg daily, metoprolol succinate 50 mg daily, Entresto 24mg-26mg BID. Labs sodium 122, potassium 4.0, BUN 15, serum creatinine 1.0 PHYSICAL EXAM: VITAL SIGNS: Reviewed. GENERAL: Well-developed in no acute distress HEENT: Neck Supple.No JVD. LUNGS: Respirations even and unlabored. Lungs diminished bilaterally. HEART: Regular rate and rhythm. S1 and S2 heard. ABDOMEN: Soft. Nondistended. Nontender. EXTREMITIES: Normal range of motion. No clubbing or cyanosis. Peripheral pulses intact. No edema ASSESSMENT: Acute on chronic heart failure with reduced EF 30-35% Paroxysmal atrial fibrillation on Eliquis Ischemic cardiomyopathy Hypertension Hyperlipidemia Coronary artery disease with previous PCI to RCA and CABG 3 in July 2019 Type 2 Diabetes. PLAN: Increase Entresto to 49mg-51mg BID Continue amiodarone 100mg daily Metoprolol succinate 50 mg at noontime Stop oral potassium Continue aspirin and atorvastatin 40 mg daily Continue Eliquis 5 g twice daily for stroke prevention, patient has a history of paroxysmal atrial fibrillation We will watch renal function and potassium. Consider Coreg pending BP response, and consider spironolactone later Further recommendations based on clinical course Nurse practitioner note has been reviewed by physician. Signing provider agrees with the documented findings, assessment, and plan of care. Objective - Vital Signs Vital signs: Vital Signs Temp 98.2 F 09/17/21 08:00 Pulse 75 09/17/21 08:00 Resp 18 09/17/21 08:00 BP 182/84 09/17/21 08:00 Pulse Ox 96 09/17/21 08:00 FiO2 Intake & Output 09/16/21 09/17/21 09/17/21 18:59 06:59 18:59 Intake Total 1080 Balance 1080 Weight 78 kg Intake: Oral 1080 Other: Voiding Method Toilet Toilet Toilet Urinal Urinal Urinal # Voids 4 - Labs CBC & Chem 7: 09/16/21 06:14 09/17/21 06:04 Labs: Abnormal Lab Results - Last 24 Hours (Table) 09/16/21 09/16/21 09/16/21 Range/Units 06:14 16:03 20:36 Carbon Dioxide (20.0-27.5) mmol/L Anion Gap (10.00-18.00) mmol/L Glucose (70-110) mg/dL POC Glucose (mg/dL) 177 H 246 H (70-110) mg/dL Calcium (8.7-10.3) mg/dL Magnesium 1.4 L (1.5-2.4) mg/dL 09/17/21 09/17/21 Range/Units 06:04 07:09 Carbon Dioxide 30.3 H (20.0-27.5) mmol/L Anion Gap 9.70 L (10.00-18.00) mmol/L Glucose 65 L (70-110) mg/dL POC Glucose (mg/dL) 62 L (70-110) mg/dL Calcium 8.3 L (8.7-10.3) mg/dL Magnesium (1.5-2.4) mg/dL
[2021-09-17 11:28] LABS: Glucose,Whole Blood 114 mg/dL (70-110)
[2021-09-17 17:07] LABS: Glucose,Whole Blood 165 mg/dL (70-110)
[2021-09-17 20:16] LABS: Glucose,Whole Blood 177 mg/dL (70-110)
[2021-09-17] MEDS: ATORVASTATIN 40 MG TAB PO SCH (21:29)
[2021-09-17] MEDS: INSULIN DETEMIR (LEVEMIR) 100 UNIT/ML SYR SQ SCH (21:29)
[2021-09-18] MEDS: PANTOPRAZOLE 40 MG TABLET PO SCH (05:28)
[2021-09-18 06:11] LABS: African American GFR (CKD) 86 (>60 ml/min/1.73 sqM); Anion Gap 9 mmol/L; Blood Urea Nitrogen 21 mg/dL (9-20); Calcium 8.3 mg/dL (8.4-10.2); Carbon Dioxide 29 mmol/L (22-30); Chloride 100 mmol/L (98-107); Glucose 155 mg/dL (74-99); Non-African American GFR(CKD) 74 (>60 ml/min/1.73 sqM); Potassium 3.6 mmol/L (3.5-5.1); Sodium 138 mmol/L (137-145)
[2021-09-18 07:09] LABS: Glucose,Whole Blood 136 mg/dL (70-110)
[2021-09-18] MEDS: GABAPENTIN 300 MG CAP PO SCH (08:26)
[2021-09-18] MEDS: DULoxetine HCL 60 MG CAPSULE.DR PO SCH (08:26)
[2021-09-18] MEDS: methocarbamoL 750 MG TAB PO SCH (08:26)
[2021-09-18] MEDS: FUROSEMIDE 40 MG TAB PO SCH (08:26)
[2021-09-18] MEDS: AMIODARONE 100 MG TAB PO SCH (08:26)
[2021-09-18] MEDS: SACUBITRIL/VALSARTAN 24 MG-26 MG TABLET PO SCH (08:26)
[2021-09-18] MEDS: APIXABAN 5 MG TAB PO SCH (08:27)
[2021-09-18] MEDS: metFORMIN 500 MG TAB PO SCH (08:27)
[2021-09-18] MEDS: ASPIRIN 81 MG PO SCH (08:27)
[2021-09-18 08:53] VITALS: PULSE 70; RESP 18; TEMP 98.8
[2021-09-18 09:34] VITALS: BP 165/80
--- NOTE | 2021-09-18 10:30 | P.PN ---
Subjective This is a 65-year-old male with a past medical history significant for type 2 diabetes, hypertension, hyperlipidemia, paroxysmal atrial fibrillation on Eliquis, congestive heart failure, ischemic cardiac myopathy, and coronary artery disease with previous PCI to the RCA in 2007 and 2014, former nicotine dependence, marijuana use. Patient also underwent CABG x 3 in July 2019. Patient follows in the office with Dr. Hua. We have been asked to see the patient in consultation for congestive heart failure. Patient presents with complaints of shortness of breath, patient has been treated with IV Lasix, now transitioned to PO Lasix and Entresto was added. He underwent a 2-D echo and Doppler study on 09/12/2021, Left ventricular ejection fraction 30-35%. Inferior wall hypokinesis and anteroseptal hypokinesis Patient seen and examined at bedside, no acute distress. He denies any chest pain or shortness of breath. BP has improved overnight. Elevated with Orthostatics, orthostatics were negative. He is currently maintained on amiodarone 100 mg daily, Eliquis 5 mg twice a day, aspirin 80 mg daily, atorvastatin 40 mg nightly, Lasix 40 mg daily, metoprolol succinate 50 mg daily, [id number] BID Labs sodium 138, potassium 3.6, BUN 21, serum creatinine 1.06 PHYSICAL EXAM: VITAL SIGNS: Reviewed. GENERAL: Well-developed in no acute distress HEENT: Neck Supple.No JVD. LUNGS: Respirations even and unlabored. Lungs diminished bilaterally. HEART: Regular rate and rhythm. S1 and S2 heard. ABDOMEN: Soft. Nondistended. Nontender. EXTREMITIES: Normal range of motion. No clubbing or cyanosis. Peripheral pulses intact. No edema ASSESSMENT: Acute on chronic heart failure with reduced EF 30-35% Paroxysmal atrial fibrillation on Eliquis Ischemic cardiomyopathy Hypertension Hyperlipidemia Coronary artery disease with previous PCI to RCA and CABG 3 in July 2019 Type 2 Diabetes. PLAN: Continue Entresto to 49mg-51mg BID Continue amiodarone 100mg daily Metoprolol succinate 50 mg at noontime Stop oral potassium Continue Lasix 40mg daily Continue aspirin and atorvastatin 40 mg daily Continue Eliquis 5 g twice daily for stroke prevention, patient has a history of paroxysmal atrial fibrillation From a cardiology perspective, patient is stable to be discharged home later today. Close follow up outpatient, patient with a follow up appointment scheduled on 09/26. Nurse practitioner note has been reviewed by physician. Signing provider agrees with the documented findings, assessment, and plan of care. Objective - Vital Signs Vital signs: Vital Signs Temp 98.8 F 09/18/21 08:00 Pulse 70 09/18/21 09:34 Resp 18 09/18/21 08:00 BP 165/80 09/18/21 09:31 Pulse Ox 100 09/18/21 08:00 FiO2 Intake & Output 09/17/21 09/18/21 09/18/21 18:59 06:59 18:59 Weight 73.5 kg 73.4 kg Other: Voiding Method Toilet Toilet Toilet Urinal Urinal Urinal - Labs CBC & Chem 7: 09/16/21 06:14 09/18/21 04:22 Labs: Abnormal Lab Results - Last 24 Hours (Table) 09/17/21 09/17/21 09/17/21 Range/Units 11:25 17:06 20:15 BUN (9-20) mg/dL Glucose (74-99) mg/dL POC Glucose (mg/dL) 114 H 165 H 177 H (70-110) mg/dL Calcium (8.4-10.2) mg/dL 09/18/21 09/18/21 Range/Units 04:22 07:08 BUN 21 H (9-20) mg/dL Glucose 155 H (74-99) mg/dL POC Glucose (mg/dL) 136 H (70-110) mg/dL Calcium 8.3 L (8.4-10.2) mg/dL
[2021-09-18 11:36] LABS: Glucose,Whole Blood 150 mg/dL (70-110)
== END 2021-09-18 15:29 | disposition home or self-care (01) | DRG 280 ==
LOC: EC 06:00 → 4SSUR 08:10 → 3SCARD 15:10 → 4SSUR 09-14 15:21
PROVIDERS: ADMIT Family Medicine; ATTEND Family Medicine
DX: I11.0 Hypertensive heart disease with heart failure (principal); I50.23 Acute on chronic systolic (congestive) heart failure; I21.4 Non-ST elevation (NSTEMI) myocardial infarction; J96.01 Acute respiratory failure with hypoxia; K85.90 Acute pancreatitis without necrosis or infection, unspecified; K86.1 Other chronic pancreatitis; I25.5 Ischemic cardiomyopathy; I25.10 Atherosclerotic heart disease of native coronary artery without angina pectoris; E11.9 Type 2 diabetes mellitus without complications; M54.50 Low back pain, unspecified; E78.5 Hyperlipidemia, unspecified; G89.29 Other chronic pain; J44.9 Chronic obstructive pulmonary disease, unspecified; K21.9 Gastro-esophageal reflux disease without esophagitis; I48.0 Paroxysmal atrial fibrillation; I25.2 Old myocardial infarction; Z95.1 Presence of aortocoronary bypass graft; Z79.01 Long term (current) use of anticoagulants; Z79.4 Long term (current) use of insulin; Z79.82 Long term (current) use of aspirin; Z79.899 Other long term (current) drug therapy; Z87.891 Personal history of nicotine dependence; Z98.61 Coronary angioplasty status; Z91.19 Patient's noncompliance with other medical treatment and regimen; Z86.19 Personal history of other infectious and parasitic diseases; Z87.440 Personal history of urinary (tract) infections; Z82.49 Family history of ischemic heart disease and other diseases of the circulatory system; Z83.3 Family history of diabetes mellitus
CPT/HCPCS: 36415; 71046; 80048; 80053; 80061; 83605; 83735; 83880; 84484; 85025; 85379; 85610; 85730; 94640; 94760; 96374; 99285

== ENCOUNTER 2021-10-11 10:33 | Inpatient (IN) | payer MEDICARE, OTHER ==
[2021-10-11 10:38] LABS: Glucose,Whole Blood 350 mg/dL (70-110)
[2021-10-11 11:02] LABS: Basophils % (A) 0 %; Eosinophils # (A) 0.2 k/uL (0-0.7); Eosinophils % (A) 2 %; HCT 39.4 % (39.0-53.0); Hypochromasia Moderate; Lymphocytes % (A) 8 %; MCH 28.3 pg (25.0-35.0); MCHC 30.4 g/dL (31.0-37.0); MCV 93.2 fL (80.0-100.0); Mean Platelet Volume 6.7; Monocytes # (A) 0.6 k/uL (0-1.0); Monocytes % (A) 4 %; Neutrophils # (A) 10.8 k/uL (1.3-7.7); Neutrophils % (A) 86 %; Platelet Count 442 k/uL (150-450); RBC 4.22 m/uL (4.30-5.90); RDW 15.1 % (11.5-15.5); WBC 12.6 k/uL (3.8-10.6)
[2021-10-11 11:14] LABS: ALT 20 U/L (4-49); AST 25 U/L (17-59); African American GFR (CKD) >90 (>60 ml/min/1.73 sqM); Albumin 3.8 g/dL (3.5-5.0); Alkaline Phosphatase 165 U/L (38-126); Anion Gap 11 mmol/L; Blood Urea Nitrogen 17 mg/dL (9-20); Calcium 8.8 mg/dL (8.4-10.2); Carbon Dioxide 25 mmol/L (22-30); Chloride 103 mmol/L (98-107); Glucose 308 mg/dL (74-99); Magnesium 1.3 mg/dL (1.6-2.3); Non-African American GFR(CKD) >90 (>60 ml/min/1.73 sqM); Potassium 3.3 mmol/L (3.5-5.1); Sodium 139 mmol/L (137-145); Total Bilirubin 0.6 mg/dL (0.2-1.3); Total Protein 6.7 g/dL (6.3-8.2)
--- NOTE | 2021-10-11 11:18 | ED ---
General Adult HPI - General Chief complaint: Shortness of Breath Stated complaint: CHF Time Seen by Provider: 10/11/21 10:35 Source: patient, RN notes reviewed, old records reviewed Mode of arrival: EMS Limitations: no limitations - History of Present Illness Initial comments: This is a 66-year-old male who presents emergency Department complaining of d ifficulty breathing. Patient states it is been ongoing for a few days and getting progressively worse. Patient states he has some congestion and a cough but no fever or chills. Patient denies chest pain or palpitations. Patient denies headache patient denies numbness weakness. Patient states he has a history of congestive heart failure. Patient denies any recent injury or trauma. Patient denies swelling to the legs or calf tenderness. - Related Data Home Medications Medication Instructions Recorded Confirmed DULoxetine HCL [Cymbalta] 60 mg PO BID 11/16/19 10/11/21 oxyCODONE HCL [oxyCODONE HCL (IR)] 15 mg PO Q8H 03/01/20 10/11/21 Atorvastatin [Lipitor] 40 mg PO HS 01/31/21 10/11/21 metFORMIN HCL [Glucophage] 1,000 mg PO BID 01/31/21 10/11/21 Albuterol Sulfate [Albuterol 2 puff INHALATION RT-QID PRN 05/08/21 10/11/21 Sulfate Hfa] Gabapentin 600 mg PO TID 09/11/21 10/11/21 Insulin Glargine,Hum.rec.anlog 25 unit SQ HS 09/11/21 10/11/21 [Basaglar Kwikpen U-100] Pantoprazole Sodium [Protonix] 40 mg PO DAILY 09/11/21 10/11/21 fentaNYL 100MCG/HR PATCH 1 patch TRANSDERM Q72H 09/11/21 10/11/21 [Duragesic 100MCG/HR] methocarbamoL [Robaxin-750] 750 mg PO TID 09/11/21 10/11/21 Mupirocin Calcium 2% Cream 1 applic TOPICAL BID 10/11/21 10/11/21 [Bactroban 2% Cream] SILVER sulfADIAZINE Cream 1 applic TOPICAL BID 10/11/21 10/11/21 [Silvadene 1% Cream] Sacubitril/Valsartan [Entresto 49 1 tab PO BID 10/11/21 10/11/21 mg-51 mg Tablet] Sulfamethoxazole/Trimethoprim 1 tab PO BID 10/11/21 10/11/21 [Sulfamethoxazole-Tmp Ds Tablet] Previous Rx's Medication Instructions Recorded Aspirin 81 mg PO DAILY #30 chew 04/10/20 Apixaban [Eliquis] 5 mg PO BID #60 tab 10/02/20 Amiodarone [Cordarone] 100 mg PO DAILY #30 tab 09/16/21 Furosemide [Lasix] 40 mg PO DAILY #30 tab 09/16/21 Metoprolol Succinate (ER) [Toprol 50 mg PO DAILY #30 tab 09/16/21 XL] Allergies Allergy/AdvReac Type Severity Reaction Status Date / Time No Known Allergies Allergy Verified 10/11/21 11:14 Review of Systems ROS Statement: Those systems with pertinent positive or pertinent negative responses have been documented in the HPI. ROS Other: All systems not noted in ROS Statement are negative. Past Medical History Past Medical History: Atrial Fibrillation, Coronary Artery Disease (CAD), Chest Pain / Angina, Diabetes Mellitus, GERD/Reflux, Hyperlipidemia, Hypertension, Myocardial Infarction ([place]) Additional Past Medical History / Comment(s): Pt had CABG 07/2019 and had post op Afib/UTI with pseudomonas aeruginosa, ischemic cardiomyopathy, IDDM type II, past R scrotal abscess with sepsis, chronic lower back pain and bilateral leg pain, Last Myocardial Infarction Date:: 03/20/15 History of Any Multi-Drug Resistant Organisms: None Reported Past Surgical History: Back Surgery, Coronary Bypass/CABG, Heart Catheterization, Heart Catheterization With Stent, Orthopedic Surgery Additional Past Surgical History / Comment(s): 08/23/2019 CABG 3 vessels, PCI with total of 5 stents, L ankle ligament repair, R leg ORIF, low back surgery, colonoscopy. Past Anesthesia/Blood Transfusion Reactions: No Reported Reaction Additional Past Anesthesia/Blood Transfusion Reaction / Comment(s): Pt has received blood in past without reaction. Date of Last Stent Placement:: 02/2015 Past Psychological History: No Psychological Hx Reported Smoking Status: Former smoker Past Alcohol Use History: None Reported Past Drug Use History: Marijuana - Past Family History Sister(s) Family Medical History: Coronary Artery Disease (CAD), Hypertension Father Family Medical History: Coronary Artery Disease (CAD), Diabetes Mellitus, Deep Vein Thrombosis (DVT), Hypertension Additional Family Medical History / Comment(s): Father at age 58yrs. He of blood clot from leg injury that went to his heart. General Exam - General Exam Comments Initial Comments: GENERAL: Patient is well-developed and well-nourished. Patient is nontoxic and well- hydrated and is in mild distress. ENT: Neck is soft and supple. No significant lymphadenopathy is noted. Oropharynx is clear. Moist mucous membranes. Neck has full range of motion without eliciting any pain. EYES: The sclera were anicteric and conjunctiva were pink and moist. Extraocular movements were intact and pupils were equal round and reactive to light. Eyelids were unremarkable. PULMONARY: Unlabored respirations. Good breath sounds bilaterally. No audible rales rhonchi or wheezing was noted. CARDIOVASCULAR: There is a regular rate and rhythm without any murmurs gallops or rubs. ABDOMEN: Soft and nontender with normal bowel sounds. SKIN: Skin is clear with no lesions or rashes and otherwise unremarkable. NEUROLOGIC: Patient is alert and oriented x3. Cranial nerves II through XII are grossly intact. Motor and sensory are also intact. Normal speech, volume and content. Symmetrical smile. MUSCULOSKELETAL: Normal extremities with adequate strength and full range of motion. LYMPHATICS: No significant lymphadenopathy is noted PSYCHIATRIC: Normal psychiatric evaluation. Limitations: no limitations Course Vital Signs 10/11/21 10/11/21 10/11/21 10:35 10:50 11:31 Temperature 98.6 F Pulse Rate 60 76 Respiratory 20 20 20 Rate Blood Pressure 186/99 185/107 O2 Sat by Pulse 91 L 95 Oximetry 10/11/21 12:57 Temperature Pulse Rate 75 Respiratory 18 Rate Blood Pressure 146/77 O2 Sat by Pulse 98 Oximetry Medical Decision Making - Medical Decision Making Chest x-ray shows pulmonary edema. EKG shows sinus rhythm with multiple PVCs at 92 bpm QRS is under 22 QT interval is 487 QTC is 536. Patient's EKG shows no ST segment elevation or depression. There are Q waves in the inferior leads. Patient got Lasix and hydralazine for high blood pressure. I spoke with Dr. Guo he agreed to admit the patient admitted the patient wrote admitting orders.I consulted cardiology. I continued Lasix Nitropaste on the floor. - Lab Data Result diagrams: 10/11/21 10:49 10/11/21 10:49 Lab Results 10/11/21 10/11/21 10/11/21 Range/Units 10:37 10:49 10:49 WBC 12.6 H (3.8-10.6) k/uL RBC 4.22 L (4.30-5.90) m/uL Hgb 12.0 L (13.0-17.5) gm/dL Hct 39.4 (39.0-53.0) % MCV 93.2 (80.0-100.0) fL MCH 28.3 (25.0-35.0) pg MCHC 30.4 L (31.0-37.0) g/dL RDW 15.1 (11.5-15.5) % Plt Count 442 (150-450) k/uL MPV 6.7 Neutrophils % 86 % Lymphocytes % 8 % Monocytes % 4 % Eosinophils % 2 % Basophils % 0 % Neutrophils # 10.8 H (1.3-7.7) k/uL Lymphocytes # 1.0 (1.0-4.8) k/uL Monocytes # 0.6 (0-1.0) k/uL Eosinophils # 0.2 (0-0.7) k/uL Basophils # 0.0 (0-0.2) k/uL Hypochromasia Moderate PT 11.3 (9.0-12.0) sec INR 1.0 (<1.2) APTT 31.6 H (22.0-30.0) sec Sodium (137-145) mmol/L Potassium (3.5-5.1) mmol/L Chloride (98-107) mmol/L Carbon Dioxide (22-30) mmol/L Anion Gap mmol/L BUN (9-20) mg/dL Creatinine (0.66-1.25) mg/dL Est GFR (CKD-EPI)AfAm (>60 ml/min/1.73 sqM) Est GFR (CKD-EPI)NonAf (>60 ml/min/1.73 sqM) Glucose (74-99) mg/dL POC Glucose (mg/dL) 350 H (70-110) mg/dL POC Glu Pant[employer] Worker Konrad Lyn Lactic Ac Sepsis Rflx Plasma Lactic Acid Chinedu (0.7-2.0) mmol/L Calcium (8.4-10.2) mg/dL Magnesium (1.6-2.3) mg/dL Total Bilirubin (0.2-1.3) mg/dL AST (17-59) U/L ALT (4-49) U/L Alkaline Phosphatase (38-126) U/L Troponin I (0.000-0.034) ng/mL NT-Pro-B Natriuret Pep pg/mL Total Protein (6.3-8.2) g/dL Albumin (3.5-5.0) g/dL Coronavirus (PCR) (Not Detectd) 10/11/21 10/11/21 10/11/21 Range/Units 10:49 10:49 10:49 WBC (3.8-10.6) k/uL RBC (4.30-5.90) m/uL Hgb (13.0-17.5) gm/dL Hct (39.0-53.0) % MCV (80.0-100.0) fL MCH (25.0-35.0) pg MCHC (31.0-37.0) g/dL RDW (11.5-15.5) % Plt Count (150-450) k/uL MPV Neutrophils % % Lymphocytes % % Monocytes % % Eosinophils % % Basophils % % Neutrophils # (1.3-7.7) k/uL Lymphocytes # (1.0-4.8) k/uL Monocytes # (0-1.0) k/uL Eosinophils # (0-0.7) k/uL Basophils # (0-0.2) k/uL Hypochromasia PT (9.0-12.0) sec INR (<1.2) APTT (22.0-30.0) sec Sodium 139 (137-145) mmol/L Potassium 3.3 L (3.5-5.1) mmol/L Chloride 103 (98-107) mmol/L Carbon Dioxide 25 (22-30) mmol/L Anion Gap 11 mmol/L BUN 17 (9-20) mg/dL Creatinine 0.87 (0.66-1.25) mg/dL Est GFR (CKD-EPI)AfAm >90 (>60 ml/min/1.73 sqM) Est GFR (CKD-EPI)NonAf >90 (>60 ml/min/1.73 sqM) Glucose 308 H (74-99) mg/dL POC Glucose (mg/dL) (70-110) mg/dL POC Glu Pantry Worker ID Lactic Ac Sepsis Rflx Plasma Lactic Acid Chinedu 3.2 H* (0.7-2.0) mmol/L Calcium 8.8 (8.4-10.2) mg/dL Magnesium 1.3 L (1.6-2.3) mg/dL Total Bilirubin 0.6 (0.2-1.3) mg/dL AST 25 (17-59) U/L ALT 20 (4-49) U/L Alkaline Phosphatase 165 H (38-126) U/L Troponin I <0.012 (0.000-0.034) ng/mL NT-Pro-B Natriuret Pep pg/mL Total Protein 6.7 (6.3-8.2) g/dL Albumin 3.8 (3.5-5.0) g/dL Coronavirus (PCR) (Not Detectd) 10/11/21 10/11/21 10/11/21 Range/Units 10:49 11:16 11:35 WBC (3.8-10.6) k/uL RBC (4.30-5.90) m/uL Hgb (13.0-17.5) gm/dL Hct (39.0-53.0) % MCV (80.0-100.0) fL MCH (25.0-35.0) pg MCHC (31.0-37.0) g/dL RDW (11.5-15.5) % Plt Count (150-450) k/uL MPV Neutrophils % % Lymphocytes % % Monocytes % % Eosinophils % % Basophils % % Neutrophils # (1.3-7.7) k/uL Lymphocytes # (1.0-4.8) k/uL Monocytes # (0-1.0) k/uL Eosinophils # (0-0.7) k/uL Basophils # (0-0.2) k/uL Hypochromasia PT (9.0-12.0) sec INR (<1.2) APTT (22.0-30.0) sec Sodium (137-145) mmol/L Potassium (3.5-5.1) mmol/L Chloride (98-107) mmol/L Carbon Dioxide (22-30) mmol/L Anion Gap mmol/L BUN (9-20) mg/dL Creatinine (0.66-1.25) mg/dL Est GFR (CKD-EPI)AfAm (>60 ml/min/1.73 sqM) Est GFR (CKD-EPI)NonAf (>60 ml/min/1.73 sqM) Glucose (74-99) mg/dL POC Glucose (mg/dL) (70-110) mg/dL POC Glu Pantry Worker ID Lactic Ac Sepsis Rflx Y Plasma Lactic Acid Chinedu (0.7-2.0) mmol/L Calcium (8.4-10.2) mg/dL Magnesium (1.6-2.3) mg/dL Total Bilirubin (0.2-1.3) mg/dL AST (17-59) U/L ALT (4-49) U/L Alkaline Phosphatase (38-126) U/L Troponin I (0.000-0.034) ng/mL NT-Pro-B Natriuret Pep 6390 pg/mL Total Protein (6.3-8.2) g/dL Albumin (3.5-5.0) g/dL Coronavirus (PCR) Not Detected (Not Detectd) Critical Care Time Critical Care Time: Yes Total Critical Care Time: 35 Disposition Clinical Impression: Pulmonary edema, Hypertension Disposition: ADMITTED IP TO THIS [facility] Time of Disposition: 12:24
--- NOTE | 2021-10-11 11:22 | XR ---
EXAMINATION TYPE: XR chest 2V DATE OF EXAM: 10/11/2021 COMPARISON: Chest x-ray September 13, 2021 HISTORY: Difficulty in breathing. TECHNIQUE: Frontal and lateral views of the chest are obtained. FINDINGS: Overlying sternal wires and mediastinal clips are redemonstrated. Persistent cardiomegaly with central vascular congestion and new small bilateral pleural effusions. No pneumothorax seen bila terally. Osseous structures are intact. IMPRESSION: Findings consistent with CHF exacerbation as there is cardiomegaly with central vascular congestion and small bilateral pleural effusions.
[2021-10-11 11:35] LABS: Partial Thromboplastin Time 31.6 sec (22.0-30.0); Prothrombin Time 11.3 sec (9.0-12.0)
[2021-10-11] MEDS ORDERED: hydrALAZINE HCL 20 MG/ML 1 ML VIAL IVP STA (12:08)
[2021-10-11] MEDS ORDERED: FUROSEMIDE 10 MG/ML 4 ML VIAL IV STA (12:10)
[2021-10-11] MEDS: NITROGLYCERIN OINT 1 INCH/GM PACKET TOPICAL SCH ×3 (13:03→21:28)
[2021-10-11] MEDS ORDERED: ALBUTEROL NEBULIZED 2.5 MG/3 ML INHALATION PRN (15:33)
[2021-10-11] MEDS ORDERED: Potassium Replacement Protocol 1 EACH MISC MISCELLANE PRN (15:34)
[2021-10-11] MEDS ORDERED: POTASSIUM CHLORIDE ER 20 MEQ TAB.ER PO STA (15:35)
[2021-10-11 16:37] LABS: Glucose,Whole Blood 261 mg/dL (70-110)
[2021-10-11] MEDS: ASPIRIN 81 MG PO SCH (17:31)
[2021-10-11] MEDS: GABAPENTIN 300 MG CAP PO SCH ×2 (17:31→21:27)
[2021-10-11] MEDS: METOPROLOL SUCCINATE (ER) 50 MG TAB.ER.24H PO SCH (17:31)
[2021-10-11] MEDS: MAGNESIUM SULFATE-D5W PMX 1 GM in DEXTROSE/WATER 1 100ML.BAG IVPB SCH ×3 (17:31→19:53)
[2021-10-11] MEDS: INSULIN ASPART (NovoLOG) 100 UNIT/ML VIAL SQ SCH ×2 (17:31→21:29)
[2021-10-11 20:24] LABS: Glucose,Whole Blood 247 mg/dL (70-110)
[2021-10-11] MEDS: DULoxetine HCL 60 MG CAPSULE.DR PO SCH (21:27)
[2021-10-11] MEDS: APIXABAN 5 MG TAB PO SCH (21:27)
[2021-10-11] MEDS: SACUBITRIL/VALSARTAN 49 MG-51 MG TABLET PO SCH (21:27)
[2021-10-11] MEDS: ATORVASTATIN 40 MG TAB PO SCH (21:28)
[2021-10-11] MEDS: FUROSEMIDE 10 MG/ML 4 ML VIAL IV SCH (21:28)
[2021-10-11] MEDS: INSULIN DETEMIR (LEVEMIR) 100 UNIT/ML SYR SQ SCH (21:28)
--- NOTE | 2021-10-11 22:19 | P.HPIM ---
History of Present Illness H&P Date: 10/11/21 Chief Complaint: Shortness of breath Patient is a 66-year-old male with a known history of atrial fibrillation on anticoagulation with Eliquis, ischemic cardiomyopathy ejection fraction 30 to 35%, hypertension, hyperlipidemia, diabetes type 2 insulin-dependent, history of MN, coronary disease status post CABG in July 2019, history of stent placement x5, prior history of smoking and other multiple medical problems and previous admission with similar complaints presents to ER with complaints of shortness of breath for the past few days and worsened this morning. No complaints of fever or chills. Does have congested cough but no sputum production. No headache or dizziness or lightheadedness.. Any fall. No leg swelling or calf tenderness. Chest x-ray showed findings consistent with CHF exacerbation as there is cardiomegaly with central vascular congestion and small bilateral pleural effusions. EKG showed irregular rhythm. Laboratory test showed WBC 12.6 hemoglobin 12.0 and platelets 442 Sodium 139 potassium 3.3 chloride 103 bicarb is 25 BUN 17 and creatinine 0.87 blood sugar is 308 lactic acid 3.2 and magnesium 1.3, proBNP 6390 On admission blood pressure 186/99 pulse is 60 respiration 20 and pulse ox 91% on room air. Past Medical History Past Medical History: Atrial Fibrillation, Coronary Artery Disease (CAD), Chest Pain / Angina, Heart Failure, Diabetes Mellitus, GERD/Reflux, Hyperlipidemia, Hypertension, Myocardial Infarction (MN) Additional Past Medical History / Comment(s): Pt recently admitted to [facility] on 09/13/21 with acute on chronic chf, acute hypoxic respiratory failure and elevated LFTs. Other hx: IDDM type II, ischemic cardiomyopathy, chronic low back and bilateral leg pain, past R scrotal abscess/sepsis. Last Myocardial Infarction Date:: 03/20/15 History of Any Multi-Drug Resistant Organisms: None Reported Past Surgical History: Back Surgery, Coronary Bypass/CABG, Heart Catheterization, Heart Catheterization With Stent, Orthopedic Surgery Additional Past Surgical History / Comment(s): 08/23/2019 CABG 3 vessels, PCI with total of 5 stents, L ankle ligament repair, R leg ORIF, low back surgery, colonoscopy. Past Anesthesia/Blood Transfusion Reactions: No Reported Reaction Additional Past Anesthesia/Blood Transfusion Reaction / Comment(s): Pt has received blood in past without reaction. Date of Last Stent Placement:: 02/2015 Smoking Status: Former smoker - Past Family History Sister(s) Family Medical History: Coronary Artery Disease (CAD), Hypertension Father Family Medical History: Coronary Artery Disease (CAD), Diabetes Mellitus, Deep Vein Thrombosis (DVT), Hypertension Additional Family Medical History / Comment(s): Father at age 58yrs. He of blood clot from leg injury that went to his heart. Medications and Allergies Home Medications Medication Instructions Recorded Confirmed Type DULoxetine HCL [Cymbalta] 60 mg PO BID 11/16/19 10/11/21 History oxyCODONE HCL [oxyCODONE HCL (IR)] 15 mg PO Q8H 03/01/20 10/11/21 History Aspirin 81 mg PO DAILY #30 chew 04/10/20 10/11/21 Rx Apixaban [Eliquis] 5 mg PO BID #60 tab 10/02/20 10/11/21 Rx Atorvastatin [Lipitor] 40 mg PO HS 01/31/21 10/11/21 History metFORMIN HCL [Glucophage] 1,000 mg PO BID 01/31/21 10/11/21 History Albuterol Sulfate [Albuterol 2 puff INHALATION RT-QID PRN 05/08/21 10/11/21 History Sulfate Hfa] Gabapentin 600 mg PO TID 09/11/21 10/11/21 History Insulin Glargine,Hum.rec.anlog 25 unit SQ HS 09/11/21 10/11/21 History [Basaglar Kwikpen U-100] Pantoprazole Sodium [Protonix] 40 mg PO DAILY 09/11/21 10/11/21 History fentaNYL 100MCG/HR PATCH 1 patch TRANSDERM Q72H 09/11/21 10/11/21 History [Duragesic 100MCG/HR] methocarbamoL [Robaxin-750] 750 mg PO TID 09/11/21 10/11/21 History Amiodarone [Cordarone] 100 mg PO DAILY #30 tab 09/16/21 10/11/21 Rx Furosemide [Lasix] 40 mg PO DAILY #30 tab 09/16/21 10/11/21 Rx Metoprolol Succinate (ER) [Toprol 50 mg PO DAILY #30 tab 09/16/21 10/11/21 Rx XL] Mupirocin Calcium 2% Cream 1 applic TOPICAL BID 10/11/21 10/11/21 History [Bactroban 2% Cream] SILVER sulfADIAZINE Cream 1 applic TOPICAL BID 10/11/21 10/11/21 History [Silvadene 1% Cream] Sacubitril/Valsartan [Entresto 49 1 tab PO BID 10/11/21 10/11/21 History mg-51 mg Tablet] Sulfamethoxazole/Trimethoprim 1 tab PO BID 10/11/21 10/11/21 History [Sulfamethoxazole-Tmp Ds Tablet] Allergies Allergy/AdvReac Type Severity Reaction Status Date / Time No Known Allergies Allergy Verified 10/11/21 11:14 Physical Exam Vitals: Vital Signs Temp Pulse Resp BP Pulse Ox 10/11/21 15:11 98 F 74 18 166/86 94 L 10/11/21 12:57 75 18 146/77 98 10/11/21 11:31 76 20 185/107 95 10/11/21 10:50 20 10/11/21 10:35 98.6 F 60 20 186/99 91 L Intake and Output 10/11/21 10/11/21 10/11/21 06:59 14:59 22:59 Other: Weight 74.843 kg 74.843 kg Results CBC & Chem 7: 10/11/21 10:49 10/11/21 10:49 Labs: Abnormal Lab Results - Last 24 Hours (Table) 10/11/21 10/11/21 10/11/21 Range/Units 10:37 10:49 10:49 WBC 12.6 H (3.8-10.6) k/uL RBC 4.22 L (4.30-5.90) m/uL Hgb 12.0 L (13.0-17.5) gm/dL MCHC 30.4 L (31.0-37.0) g/dL Neutrophils # 10.8 H (1.3-7.7) k/uL APTT 31.6 H (22.0-30.0) sec Potassium (3.5-5.1) mmol/L Glucose (74-99) mg/dL POC Glucose (mg/dL) 350 H (70-110) mg/dL Plasma Lactic Acid Chinedu (0.7-2.0) mmol/L Magnesium (1.6-2.3) mg/dL Alkaline Phosphatase (38-126) U/L 10/11/21 10/11/21 10/11/21 Range/Units 10:49 10:49 14:15 WBC (3.8-10.6) k/uL RBC (4.30-5.90) m/uL Hgb (13.0-17.5) gm/dL MCHC (31.0-37.0) g/dL Neutrophils # (1.3-7.7) k/uL APTT (22.0-30.0) sec Potassium 3.3 L (3.5-5.1) mmol/L Glucose 308 H (74-99) mg/dL POC Glucose (mg/dL) (70-110) mg/dL Plasma Lactic Acid Chinedu 3.2 H* 3.2 H* (0.7-2.0) mmol/L Magnesium 1.3 L (1.6-2.3) mg/dL Alkaline Phosphatase 165 H (38-126) U/L Thrombosis Risk Factor Assmnt - DVT/VTE Prophylaxis DVT/VTE Prophylaxis: Pharmacologic Prophylaxis ordered - Choose All That Apply Any of the Below Risk Factors Present?: Yes Each Factor Represents 1 point: Heart failure (<1month), Serious lung disease incl. pneumonia (< 1month) Other Risk Factors: Yes Each Risk Factor Represents 2 Points: Age 61-74 years Other congenital or acquired thrombophilia - If yes, enter type in comment: No Thrombosis Risk Factor Assessment Total Risk Factor Score: 4 Thrombosis Risk Factor Assessment Level: Moderate Risk Assessment and Plan Assessment: Acute on chronic CHF with systolic dysfunction ejection fraction 30 to 35%. 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 Diabetes type 2 insulin-dependent Chronic pain on oxycodone and Neurontin. DVT prophylaxis on Eliquis GI prophylaxis with Protonix Plan: Patient will be continued on IV Lasix 40 mg every 8 hourly. Replaced sodium and magnesium. Continue with oxygen supplementation and titrate down to room air. Continue with aspirin, statins and metoprolol and Entresto. Continue with home medications and insulin regimen. Insulin sliding scale for better blood sugar control. Cardiology was consulted for evaluation. Prognosis is guarded at this time. Time with Patient: Greater than 30
[2021-10-12 03:46] LABS: Glucose,Whole Blood 147 mg/dL (70-110)
[2021-10-12] MEDS: FUROSEMIDE 10 MG/ML 4 ML VIAL IV SCH ×3 (03:50→21:06)
[2021-10-12 04:10] LABS: Basophils # (A) 0.1 k/uL (0-0.2); Basophils % (A) 1 %; Eosinophils # (A) 0.2 k/uL (0-0.7); Eosinophils % (A) 2 %; HCT 37.1 % (39.0-53.0); HGB 11.4 gm/dL (13.0-17.5); Hypochromasia Slight; Lymphocytes # (A) 1.6 k/uL (1.0-4.8); Lymphocytes % (A) 16 %; MCH 28.3 pg (25.0-35.0); MCHC 30.8 g/dL (31.0-37.0); MCV 92.1 fL (80.0-100.0); Mean Platelet Volume 6.8; Monocytes # (A) 0.7 k/uL (0-1.0); Monocytes % (A) 7 %; Neutrophils # (A) 7.4 k/uL (1.3-7.7); Neutrophils % (A) 73 %; Platelet Count 403 k/uL (150-450); RBC 4.03 m/uL (4.30-5.90); RDW 15.1 % (11.5-15.5)
[2021-10-12 04:18] LABS: Calcium 8.8 mg/dL (8.4-10.2)
[2021-10-12 06:11] LABS: Glucose,Whole Blood 190 mg/dL (70-110)
[2021-10-12] MEDS: INSULIN ASPART (NovoLOG) 100 UNIT/ML VIAL SQ SCH ×4 (06:33→21:05)
[2021-10-12] MEDS: ASPIRIN 81 MG PO SCH (09:00)
[2021-10-12] MEDS: SACUBITRIL/VALSARTAN 49 MG-51 MG TABLET PO SCH ×2 (09:00→21:03)
[2021-10-12] MEDS: PANTOPRAZOLE 40 MG TABLET PO SCH (09:00)
[2021-10-12] MEDS: APIXABAN 5 MG TAB PO SCH ×2 (09:00→21:04)
[2021-10-12] MEDS: METOPROLOL SUCCINATE (ER) 50 MG TAB.ER.24H PO SCH (09:00)
[2021-10-12] MEDS: AMIODARONE 100 MG TAB PO SCH (09:00)
[2021-10-12] MEDS: NITROGLYCERIN OINT 1 INCH/GM PACKET TOPICAL SCH ×4 (09:00→21:11)
[2021-10-12] MEDS: GABAPENTIN 300 MG CAP PO SCH ×3 (09:00→21:04)
[2021-10-12] MEDS: DULoxetine HCL 60 MG CAPSULE.DR PO SCH ×2 (09:00→21:05)
[2021-10-12] MEDS ORDERED: METOPROLOL SUCCINATE (ER) 50 MG TAB.ER.24H PO STA (09:45)
[2021-10-12 12:00] LABS: Glucose,Whole Blood 246 mg/dL (70-110)
[2021-10-12 12:52] VITALS: BMI 26.2
--- NOTE | 2021-10-12 13:59 | P.CRDCN ---
History of Present Illness Consult date: 10/12/21 Consult reason: congestive heart failure Chief complaint: Congestive heart failure History of present illness: This is Ellis Henao NP, I'm dictating on behalf of Dr. Caban's H&P and A&P The patient was interviewed and examined. HPI: Patient is a pleasant 66-year-old male who initially presented to hospital with complaints of increased shortness of breath. We were consulted because it appears the patient is in an acute exacerbation of congestive heart failure. Patient reports that he's been having difficulty breathing over the last couple days and states that is been getting worse Gabby day has gone by. He has had some mild congestion and cough but it is not expectorating any sputum and denies fever. He also denies leg swelling. Patient had a chest x-ray completed and demonstrated findings significant for congestive heart failure specifically cardiomegaly with central vascular congestion and small bilateral pleural effusions. He was subsequently admitted for IV diuresis and further management of the congestive heart failure. He has a past medical history of atrial fibrillation, ischemic cardiomyopathy, hypertension, hyperlipidemia, type 2 diabetes, history of [place], coronary artery disease status post CABG, prior smoker, and GERD. Patient reports today that he is feeling much better. He is not complaining of any shortness of breath with lying flat or with exertion. There is no edema appreciated on exam. ROS: [No fever, chills, or rigors] [no cough, phlegm, or expectoration] [no nausea, vomiting, or diarrhea] [no hematuria, dysuria] [no musculoskelatal complaints] [no strokes or seizures] [no skin lesions] EXAMINATION: GENERAL: Well-appearing, well-nourished and in no acute distress. NECK: Supple without JVD or thyromegaly. LUNGS: Breath sounds clear to auscultation bilaterally. Respiration equal and unlabored. No wheezes, rales or rhonchi. HEART: Regular rate and rhythm without murmurs, rubs or gallops. S1 and S2 heard. EXTREMITIES: Normal range of motion, no edema. No clubbing or cyanosis. Peripheral pulses intact and strong. REVIEW OF LABS, ECG & MEDICAL DATA: LABS: White count 10.0, hemoglobin 11.4, platelets 403, sodium 135, potassium 4.0, B1 21, creatinine 1.06, lactic acid 1.1, calcium 8.8 EKG: Normal sinus rhythm with minor prolonged MS interval, wide-complex QRS, occasional PVCs IMAGING: Chest x-ray dated 10/11/2021 demonstrates findings consistent with CHF exacerbation as there is cardiomegaly with central vascular congestion and small bilateral pleural effusions. VITALS: Temp 96.8, pulse 72, respirations 18, blood pressure 130/77, O2 saturation 97% on 2 L by nasal cannula IMPRESSION: 1. Acute exacerbation CHF 2. Ischemic cardiomyopathy 3. Hypertension 4. Type 2 diabetes 5. Coronary artery disease status post CABG PLAN: Increase metoprolol to 100 mg daily Continue Lasix as ordered Exacerbation of CHF appears to be resolved Patient may be discharged from a cardiac standpoint Thank you for the consult and allowing us to participate in the care of this patient. If further recommendations are needed please do not hesitate to arnie nsult. Past Medical History Past Medical History: Atrial Fibrillation, Coronary Artery Disease (CAD), Chest Pain / Angina, Heart Failure, Diabetes Mellitus, GERD/Reflux, Hyperlipidemia, Hypertension, Myocardial Infarction ([place]) Additional Past Medical History / Comment(s): Pt recently admitted to [facility] on 09/13/21 with acute on chronic chf, acute hypoxic respiratory failure and elevated LFTs. Other hx: IDDM type II, ischemic cardiomyopathy, chronic low back and bilateral leg pain, past R scrotal abscess/sepsis. Last Myocardial Infarction Date:: 03/20/15 History of Any Multi-Drug Resistant Organisms: None Reported Past Surgical History: Back Surgery, Coronary Bypass/CABG, Heart Catheterization, Heart Catheterization With Stent, Orthopedic Surgery Additional Past Surgical History / Comment(s): 08/23/2019 CABG 3 vessels, PCI with total of 5 stents, L ankle ligament repair, R leg ORIF, low back surgery, colonoscopy. Past Anesthesia/Blood Transfusion Reactions: No Reported Reaction Additional Past Anesthesia/Blood Transfusion Reaction / Comment(s): Pt has received blood in past without reaction. Date of Last Stent Placement:: 02/2015 Smoking Status: Former smoker - Past Family History Sister(s) Family Medical History: Coronary Artery Disease (CAD), Hypertension Father Family Medical History: Coronary Artery Disease (CAD), Diabetes Mellitus, Deep Vein Thrombosis (DVT), Hypertension Additional Family Medical History / Comment(s): Father at age 58yrs. He of blood clot from leg injury that went to his heart. Medications and Allergies Home Medications Medication Instructions Recorded Confirmed Type DULoxetine HCL [Cymbalta] 60 mg PO BID 11/16/19 10/11/21 History oxyCODONE HCL [oxyCODONE HCL (IR)] 15 mg PO Q8H 03/01/20 10/11/21 History Aspirin 81 mg PO DAILY #30 chew 04/10/20 10/11/21 Rx Apixaban [Eliquis] 5 mg PO BID #60 tab 10/02/20 10/11/21 Rx Atorvastatin [Lipitor] 40 mg PO HS 01/31/21 10/11/21 History metFORMIN HCL [Glucophage] 1,000 mg PO BID 01/31/21 10/11/21 History Albuterol Sulfate [Albuterol 2 puff INHALATION RT-QID PRN 05/08/21 10/11/21 History Sulfate Hfa] Gabapentin 600 mg PO TID 09/11/21 10/11/21 History Insulin Glargine,Hum.rec.anlog 25 unit SQ HS 09/11/21 10/11/21 History [Basaglar Kwikpen U-100] Pantoprazole Sodium [Protonix] 40 mg PO DAILY 09/11/21 10/11/21 History fentaNYL 100MCG/HR PATCH 1 patch TRANSDERM Q72H 09/11/21 10/11/21 History [Duragesic 100MCG/HR] methocarbamoL [Robaxin-750] 750 mg PO TID 09/11/21 10/11/21 History Amiodarone [Cordarone] 100 mg PO DAILY #30 tab 09/16/21 10/11/21 Rx Furosemide [Lasix] 40 mg PO DAILY #30 tab 09/16/21 10/11/21 Rx Metoprolol Succinate (ER) [Toprol 50 mg PO DAILY #30 tab 09/16/21 10/11/21 Rx XL] Mupirocin Calcium 2% Cream 1 applic TOPICAL BID 10/11/21 10/11/21 History [Bactroban 2% Cream] SILVER sulfADIAZINE Cream 1 applic TOPICAL BID 10/11/21 10/11/21 History [Silvadene 1% Cream] Sacubitril/Valsartan [Entresto 49 1 tab PO BID 10/11/21 10/11/21 History mg-51 mg Tablet] Sulfamethoxazole/Trimethoprim 1 tab PO BID 10/11/21 10/11/21 History [Sulfamethoxazole-Tmp Ds Tablet] Allergies Allergy/AdvReac Type Severity Reaction Status Date / Time No Known Allergies Allergy Verified 10/11/21 11:14 Physical Exam Vitals: Vital Signs Temp Pulse Pulse Resp BP BP Pulse Ox 10/12/21 13:11 18 10/12/21 12:00 72 18 130/77 97 10/12/21 08:00 96.8 F L 70 18 102/56 98 10/12/21 04:22 98.1 F 74 20 144/84 97 10/11/21 23:35 97.4 F L 75 149/72 98 10/11/21 19:49 98.0 F 86 18 150/81 94 L 10/11/21 16:00 97.9 F 75 20 162/72 98 10/11/21 15:11 98 F 74 18 166/86 94 L Intake and Output 10/11/21 10/12/21 10/12/21 22:59 06:59 14:59 Intake Total 180 Output Total 450 2000 Balance -270 -1999 Intake: Oral 180 Output: Urine 450 2000 Other: Voiding Method Urinal Urinal Weight 74.843 kg 76.1 kg 76.1 kg Results 10/12/21 03:36 10/12/21 03:36 CBC 10/12/21 Range/Units 03:36 WBC 10.0 (3.8-10.6) k/uL RBC 4.03 L (4.30-5.90) m/uL Hgb 11.4 L (13.0-17.5) gm/dL Hct 37.1 L (39.0-53.0) % Plt Count 403 (150-450) k/uL Comprehensive Metabolic Panel 10/12/21 Range/Units 03:36 Sodium 135 L (137-145) mmol/L Potassium 4.0 (3.5-5.1) mmol/L Chloride 97 L (98-107) mmol/L Carbon Dioxide 34 H (22-30) mmol/L BUN 21 H (9-20) mg/dL Creatinine 1.06 (0.66-1.25) mg/dL Glucose 159 H (74-99) mg/dL Calcium 8.8 (8.4-10.2) mg/dL Current Medications Generic Name Dose Route Start Last Admin Trade Name Freq PRN Reason Stop Dose Admin Albuterol Sulfate 2.5 mg 10/11/21 15:33 Albuterol Nebulized 2.5 Mg/3 Ml INHALATION RT-QID PRN Shortness Of Breath Amiodarone HCl 100 mg 10/12/21 09:00 10/12/21 09:00 Amiodarone 100 Mg Tab PO 100 mg DAILY GABBY Administration Apixaban 5 mg 10/11/21 21:00 10/12/21 09:00 Apixaban 5 Mg Tab PO 5 mg BID GABBY Administration Protocol Aspirin 81 mg 10/11/21 15:45 10/12/21 09:00 Aspirin 81 Mg PO 81 mg DAILY GABBY Administration Atorvastatin Calcium 40 mg 10/11/21 21:00 10/11/21 21:28 Atorvastatin 40 Mg Tab PO 40 mg HS GABBY Administration Duloxetine HCl 60 mg 10/11/21 21:00 10/12/21 09:00 Duloxetine Hcl 60 Mg Capsule.Dr PO 60 mg BID GABBY Administration Furosemide 40 mg 10/11/21 20:00 10/12/21 12:31 Furosemide 10 Mg/Ml 4 Ml Vial IV 40 mg Q8H GABBY Administration Gabapentin 600 mg 10/11/21 16:00 10/12/21 09:00 Gabapentin 300 Mg Cap PO 600 mg TID GABBY Administration Insulin Aspart 0 unit 10/11/21 17:30 10/12/21 12:32 Insulin Aspart (Novolog) 100 Unit/Ml Vial SQ 4 unit ACHS GABBY Administration Protocol Insulin Detemir 25 unit 10/11/21 21:00 10/11/21 21:28 Insulin Detemir (Levemir) 100 Unit/Ml Syr SQ 25 unit HS [facility] Administration Metoprolol Succinate 100 mg 10/12/21 21:00 Metoprolol Succinate (Er) 50 Mg Tab.Er.24h PO HS [facility] Miscellaneous Information 1 each 10/11/21 15:34 Potassium Replacement Protocol 1 Each Misc MISCELLANE DAILY PRN Per Protocol Protocol Nitroglycerin 1 inch 10/11/21 13:00 10/12/21 11:42 Nitroglycerin Oint 1 Inch/Gm Packet TOPICAL Not Given QID GABBY Oxycodone HCl 15 mg 10/11/21 16:00 10/12/21 09:00 Oxycodone Hcl 5 Mg Tab PO 15 mg Q8H GABBY Administration Pantoprazole Sodium 40 mg 10/12/21 09:00 10/12/21 09:00 Pantoprazole 40 Mg Tablet PO 40 mg DAILY GABBY Administration Sacubitril/Valsartan 1 each 10/11/21 21:00 10/12/21 09:00 Sacubitril/Valsartan 49 Mg-51 Mg Tablet PO 1 each BID GABBY Administration Intake and Output 10/11/21 10/12/21 10/12/21 22:59 06:59 14:59 Intake Total 180 Output Total 450 1999 Balance -270 -1999 Intake: Oral 180 Output: Urine 450 2000 Other: Voiding Method Urinal Urinal Weight 74.843 kg 76.1 kg 76.1 kg Patient Weight 10/13/21 06:59 Weight 76.1 kg 10/12/21 03:36 10/12/21 03:36
[2021-10-12 16:27] LABS: Glucose,Whole Blood 147 mg/dL (70-110)
[2021-10-12 20:58] LABS: Glucose,Whole Blood 261 mg/dL (70-110)
[2021-10-12] MEDS ORDERED: METOPROLOL SUCCINATE (ER) 50 MG TAB.ER.24H PO SCH (21:00)
[2021-10-12] MEDS: ATORVASTATIN 40 MG TAB PO SCH (21:04)
[2021-10-12] MEDS: INSULIN DETEMIR (LEVEMIR) 100 UNIT/ML SYR SQ SCH (21:05)
[2021-10-13 03:51] VITALS: RESP 18
[2021-10-13] MEDS: INSULIN ASPART (NovoLOG) 100 UNIT/ML VIAL SQ SCH ×2 (06:40→12:14)
[2021-10-13 06:50] LABS: Glucose,Whole Blood 132 mg/dL (70-110)
[2021-10-13 07:30] LABS: Basophils # (A) 0.1 k/uL (0-0.2); Basophils % (A) 1 %; Eosinophils # (A) 0.3 k/uL (0-0.7); Eosinophils % (A) 3 %; HCT 36.8 % (39.0-53.0); HGB 11.4 gm/dL (13.0-17.5); Hypochromasia Moderate; Lymphocytes % (A) 20 %; MCV 93.6 fL (80.0-100.0); Mean Platelet Volume 6.8; Monocytes # (A) 0.7 k/uL (0-1.0); Monocytes % (A) 7 %; Neutrophils # (A) 6.9 k/uL (1.3-7.7); Neutrophils % (A) 68 %; Platelet Count 398 k/uL (150-450); RBC 3.93 m/uL (4.30-5.90); RDW 15.2 % (11.5-15.5); WBC 10.1 k/uL (3.8-10.6)
[2021-10-13 07:33] LABS: Calcium 8.1 mg/dL (8.4-10.2)
[2021-10-13] MEDS: SACUBITRIL/VALSARTAN 49 MG-51 MG TABLET PO SCH (08:54)
[2021-10-13] MEDS: ASPIRIN 81 MG PO SCH (08:54)
[2021-10-13] MEDS: GABAPENTIN 300 MG CAP PO SCH (08:55)
[2021-10-13] MEDS: AMIODARONE 100 MG TAB PO SCH (08:55)
[2021-10-13] MEDS: PANTOPRAZOLE 40 MG TABLET PO SCH (08:55)
[2021-10-13] MEDS: APIXABAN 5 MG TAB PO SCH (08:55)
[2021-10-13] MEDS: DULoxetine HCL 60 MG CAPSULE.DR PO SCH (08:55)
[2021-10-13] MEDS: NITROGLYCERIN OINT 1 INCH/GM PACKET TOPICAL SCH (08:55)
[2021-10-13] MEDS ORDERED: FUROSEMIDE 40 MG TAB PO SCH (09:00)
[2021-10-13 09:28] VITALS: TEMP 96.6
[2021-10-13 11:41] LABS: Glucose,Whole Blood 166 mg/dL (70-110)
[2021-10-13 14:10] VITALS: BP 146/91; PULSE 84
== END 2021-10-13 14:10 | disposition home or self-care (01) | DRG 292 ==
LOC: EC 10:33 → 3SCARD 12:29
PROVIDERS: ADMIT Internal Medicine; ATTEND Internal Medicine
DX: I50.9 Heart failure, unspecified (principal); E87.2 Acidosis; I11.0 Hypertensive heart disease with heart failure; E11.9 Type 2 diabetes mellitus without complications; E78.5 Hyperlipidemia, unspecified; G89.29 Other chronic pain; I25.10 Atherosclerotic heart disease of native coronary artery without angina pectoris; I25.2 Old myocardial infarction; I25.5 Ischemic cardiomyopathy; I48.91 Unspecified atrial fibrillation; I49.3 Ventricular premature depolarization; I50.23 Acute on chronic systolic (congestive) heart failure; Z95.1 Presence of aortocoronary bypass graft; Z79.01 Long term (current) use of anticoagulants; Z79.4 Long term (current) use of insulin; Z79.82 Long term (current) use of aspirin; Z79.84 Long term (current) use of oral hypoglycemic drugs; Z79.891 Long term (current) use of opiate analgesic; Z79.899 Other long term (current) drug therapy; Z82.49 Family history of ischemic heart disease and other diseases of the circulatory system; Z83.3 Family history of diabetes mellitus; Z87.891 Personal history of nicotine dependence; Z95.5 Presence of coronary angioplasty implant and graft; K21.9 Gastro-esophageal reflux disease without esophagitis; Z28.21 Immunization not carried out because of patient refusal
CPT/HCPCS: 36415; 71046; 80048; 80053; 83605; 83735; 83880; 84484; 85025; 85610; 85730; 87635; 93005; 96374; 99291

== ENCOUNTER 2022-01-07 10:26 | Inpatient (IN) | payer MEDICARE, OTHER ==
--- NOTE | 2022-01-07 10:53 | ED ---
General Adult HPI - General Stated complaint: ALONDRA Time Seen by Provider: 01/07/22 10:27 Source: patient, EMS, RN notes reviewed, old records reviewed Mode of arrival: EMS Limitations: no limitations - History of Present Illness Initial comments: 66-year-old male presents with increased dyspnea. Patient does report cough. He was transported by paramedics. Found to be hypertensive. History of CHF and recent admission to the hospital. He was discharged 2 days ago. He denies fever. Denies chest pain. He does have lower extremity edema which is worse on the left. - Related Data Home Medications Medication Instructions Recorded Confirmed DULoxetine HCL [Cymbalta] 60 mg PO BID 11/16/19 01/07/22 oxyCODONE HCL [oxyCODONE HCL (IR)] 15 mg PO Q8H 03/01/20 01/07/22 Atorvastatin [Lipitor] 40 mg PO HS 01/31/21 01/07/22 metFORMIN HCL [Glucophage] 1,000 mg PO BID 01/31/21 01/07/22 Albuterol Sulfate [Albuterol 2 puff INHALATION RT-QID PRN 05/08/21 01/07/22 Sulfate Hfa] Gabapentin 600 mg PO TID 09/11/21 01/07/22 Insulin Glargine,Hum.rec.anlog 25 unit SQ HS 09/11/21 01/07/22 [Basaglar Kwikpen U-100] Pantoprazole Sodium [Protonix] 40 mg PO DAILY 09/11/21 01/07/22 fentaNYL 100MCG/HR PATCH 1 patch TRANSDERM Q72H 09/11/21 01/07/22 [Duragesic 100MCG/HR] methocarbamoL [Robaxin-750] 750 mg PO TID 09/11/21 01/07/22 Sacubitril/Valsartan [Entresto 49 1 tab PO DAILY 10/11/21 01/07/22 mg-51 mg Tablet] Insulin Aspart [NovoLOG Flexpen] 10 units SQ AC-BID 01/03/22 01/07/22 Metoprolol Succinate (ER) [Toprol 100 mg PO DAILY 01/03/22 01/07/22 XL] Mirtazapine 15 mg PO HS 01/03/22 01/07/22 Previous Rx's Medication Instructions Recorded Aspirin 81 mg PO DAILY #30 chew 04/10/20 Apixaban [Eliquis] 5 mg PO BID #60 tab 10/02/20 Amiodarone [Cordarone] 100 mg PO DAILY #30 tab 09/16/21 Furosemide [Lasix] 40 mg PO BID@0900,1600 #60 tab 01/05/22 Spironolactone [Aldactone] 25 mg PO DAILY #30 tab 01/05/22 Allergies Allergy/AdvReac Type Severity Reaction Status Date / Time No Known Allergies Allergy Verified 01/07/22 12:41 Review of Systems ROS Statement: Those systems with pertinent positive or pertinent negative responses have been documented in the HPI. ROS Other: All systems not noted in ROS Statement are negative. Past Medical History Past Medical History: Atrial Fibrillation, Coronary Artery Disease (CAD), Chest Pain / Angina, Heart Failure, Diabetes Mellitus, GERD/Reflux, Hyperlipidemia, Hypertension, Myocardial Infarction ([place]) Additional Past Medical History / Comment(s): Pt recently admitted to [facility] on 09/13/21 with acute on chronic chf, acute hypoxic respiratory failure and elevated LFTs. Other hx: IDDM type II, ischemic cardiomyopathy, chronic low back and bilateral leg pain, past R scrotal abscess/sepsis. Last Myocardial Infarction Date:: 03/20/15 History of Any Multi-Drug Resistant Organisms: None Reported Past Surgical History: Back Surgery, Coronary Bypass/CABG, Heart Catheterization, Heart Catheterization With Stent, Orthopedic Surgery Additional Past Surgical History / Comment(s): 08/23/2019 CABG 3 vessels, PCI with total of 5 stents, L ankle ligament repair, R leg ORIF, low back surgery, colonoscopy. Past Anesthesia/Blood Transfusion Reactions: No Reported Reaction Additional Past Anesthesia/Blood Transfusion Reaction / Comment(s): Pt has received blood in past without reaction. Date of Last Stent Placement:: 02/2015 Past Psychological History: No Psychological Hx Reported Smoking Status: Former smoker Past Alcohol Use History: None Reported Past Drug Use History: Marijuana - Past Family History Sister(s) Family Medical History: Coronary Artery Disease (CAD), Hypertension Father Family Medical History: Coronary Artery Disease (CAD), Diabetes Mellitus, Deep Vein Thrombosis (DVT), Hypertension Additional Family Medical History / Comment(s): Father at age 58yrs. He of blood clot from leg injury that went to his heart. General Exam Limitations: no limitations General appearance: alert, in distress Head exam: Present: atraumatic, normocephalic Eye exam: Present: normal appearance, PERRL ENT exam: Present: mucous membranes dry Respiratory exam: Present: respiratory distress, wheezes, rales, decreased breath sounds Cardiovascular Exam: Present: regular rate, normal rhythm GI/Abdominal exam: Present: soft. Absent: distended, tenderness, guarding Extremities exam: Present: pedal edema Neurological exam: Present: alert, oriented X3. Absent: motor sensory deficit Skin exam: Present: warm, dry, intact Course Vital Signs 01/07/22 01/07/22 01/07/22 10:28 10:42 11:27 Temperature 98.2 F Pulse Rate 84 81 Respiratory 22 26 H 20 Rate Blood Pressure 160/109 177/99 O2 Sat by Pulse 100 99 Oximetry 01/07/22 12:00 Temperature Pulse Rate 76 Respiratory 22 Rate Blood Pressure 179/100 O2 Sat by Pulse 95 Oximetry EKG Findings - EKG Comments: EKG Findings:: EKG: Sinus rhythm with first-degree AV block, rate of 83, [place] interval 227, QRS duration 1:30, QTC 470, significant artifact limiting ass essment. I do not see any ST segment elevation. Procedures - Orthopedic Splinting/Casting Injury #1 Side: left Lower Extremity Injury Location: ankle Lower Extremity Immobilizer: posterior splint, stirrup splint Medical Decision Making - Medical Decision Making 66-year-old male presenting with dyspnea. Generalized weakness, multiple falls. Patient is a poor historian. He was discharged 2 days prior. Family indicates that he's had several falls but did not have any complaints from the falls. On exam and was noted that there was a hemorrhagic bulla to the left anterior ankle with soft tissue swelling. The patient did not complain of pain at this location. Uncertain when this injury occurred. X-ray was performed which did show a minimally displaced trimalleolar fracture. Patient was placed in a splint in the emergency department. Ultrasound was performed which is negative for DVT. Regarding his chief complaint of dyspnea. The patient had chest x-ray showing pulmonary vascular congestion. He has an elevated BNP at 12,000. No leukocytosis. Negative troponin. He's in sinus rhythm. He will be admitted for a multifactorial dyspnea, likely predominantly CHF with COPD. Orthopedics will be on consult for the trimalleolar fracture. Case has been discussed with Dr. Lovell - Lab Data Result diagrams: 01/07/22 11:16 01/07/22 11:16 Lab Results 01/07/22 01/07/22 01/07/22 Range/Units 11:16 11:16 11:16 WBC 10.5 (3.8-10.6) k/uL RBC 3.49 L (4.30-5.90) m/uL Hgb 9.6 L (13.0-17.5) gm/dL Hct 31.1 L (39.0-53.0) % MCV 89.1 (80.0-100.0) fL MCH 27.5 (25.0-35.0) pg MCHC 30.9 L (31.0-37.0) g/dL RDW 16.2 H (11.5-15.5) % Plt Count 349 (150-450) k/uL MPV 7.8 Neutrophils % 82 % Lymphocytes % 8 % Monocytes % 7 % Eosinophils % 1 % Basophils % 0 % Neutrophils # 8.6 H (1.3-7.7) k/uL Lymphocytes # 0.8 L (1.0-4.8) k/uL Monocytes # 0.8 (0-1.0) k/uL Eosinophils # 0.1 (0-0.7) k/uL Basophils # 0.0 (0-0.2) k/uL Hypochromasia Marked Anisocytosis Slight PT 12.3 H (9.0-12.0) sec INR 1.2 H (<1.2) APTT 29.5 (22.0-30.0) sec Sodium 142 (137-145) mmol/L Potassium 4.2 (3.5-5.1) mmol/L Chloride 100 (98-107) mmol/L Carbon Dioxide 29 (22-30) mmol/L Anion Gap 13 mmol/L BUN 35 H (9-20) mg/dL Creatinine 1.36 H (0.66-1.25) mg/dL Est GFR (CKD-EPI)AfAm 63 (>60 ml/min/1.73 sqM) Est GFR (CKD-EPI)NonAf 55 (>60 ml/min/1.73 sqM) Glucose 241 H (74-99) mg/dL Calcium 8.7 (8.4-10.2) mg/dL Magnesium 1.8 (1.6-2.3) mg/dL Total Bilirubin 0.7 (0.2-1.3) mg/dL AST 29 (17-59) U/L ALT 34 (4-49) U/L Alkaline Phosphatase 236 H (38-126) U/L Troponin I (0.000-0.034) ng/mL NT-Pro-B Natriuret Pep pg/mL Total Protein 6.5 (6.3-8.2) g/dL Albumin 3.9 (3.5-5.0) g/dL 01/07/22 01/07/22 Range/Units 11:16 11:16 WBC (3.8-10.6) k/uL RBC (4.30-5.90) m/uL Hgb (13.0-17.5) gm/dL Hct (39.0-53.0) % MCV (80.0-100.0) fL MCH (25.0-35.0) pg MCHC (31.0-37.0) g/dL RDW (11.5-15.5) % Plt Count (150-450) k/uL MPV Neutrophils % % Lymphocytes % % Monocytes % % Eosinophils % % Basophils % % Neutrophils # (1.3-7.7) k/uL Lymphocytes # (1.0-4.8) k/uL Monocytes # (0-1.0) k/uL Eosinophils # (0-0.7) k/uL Basophils # (0-0.2) k/uL Hypochromasia Anisocytosis PT (9.0-12.0) sec INR (<1.2) APTT (22.0-30.0) sec Sodium (137-145) mmol/L Potassium (3.5-5.1) mmol/L Chloride (98-107) mmol/L Carbon Dioxide (22-30) mmol/L Anion Gap mmol/L BUN (9-20) mg/dL Creatinine (0.66-1.25) mg/dL Est GFR (CKD-EPI)AfAm (>60 ml/min/1.73 sqM) Est GFR (CKD-EPI)NonAf (>60 ml/min/1.73 sqM) Glucose (74-99) mg/dL Calcium (8.4-10.2) mg/dL Magnesium (1.6-2.3) mg/dL Total Bilirubin (0.2-1.3) mg/dL AST (17-59) U/L ALT (4-49) U/L Alkaline Phosphatase (38-126) U/L Troponin I <0.012 (0.000-0.034) ng/mL NT-Pro-B Natriuret Pep 31443 pg/mL Total Protein (6.3-8.2) g/dL Albumin (3.5-5.0) g/dL Disposition Clinical Impression: Trimalleolar fracture of ankle, closed, CHF exacerbation, Acute exacerbation of chronic obstructive pulmonary disease Disposition: ADMITTED IP TO THIS HOSP Condition: Stable Is patient prescribed a controlled substance at d/c from ED?: No Referrals: Puma Lovell MD [Primary Care Provider] - 1-2 days Time of Disposition: 12:56
[2022-01-07 11:20] LABS: Anisocytosis Slight; Basophils % (A) 0 %; Eosinophils # (A) 0.1 k/uL (0-0.7); Eosinophils % (A) 1 %; HCT 31.1 % (39.0-53.0); HGB 9.6 gm/dL (13.0-17.5); Hypochromasia Marked; Lymphocytes # (A) 0.8 k/uL (1.0-4.8); Lymphocytes % (A) 8 %; MCH 27.5 pg (25.0-35.0); MCHC 30.9 g/dL (31.0-37.0); MCV 89.1 fL (80.0-100.0); Mean Platelet Volume 7.8; Monocytes # (A) 0.8 k/uL (0-1.0); Monocytes % (A) 7 %; Neutrophils # (A) 8.6 k/uL (1.3-7.7); Neutrophils % (A) 82 %; Platelet Count 349 k/uL (150-450); RBC 3.49 m/uL (4.30-5.90); RDW 16.2 % (11.5-15.5); WBC 10.5 k/uL (3.8-10.6)
--- NOTE | 2022-01-07 11:28 | XR ---
EXAMINATION TYPE: XR ankle limited LT DATE OF EXAM: 01/07/2022 COMPARISON: NONE HISTORY: Pain FINDINGS: Three views of the ankle demonstrate displaced fractures involving the distal fibula and tibia. Suspe ct additional fracture involving the posterior margin of tibia compatible trimalleolar fracture. Mild asymmetry of the ankle mortise. Calcaneal spurs and diffuse osteopenia. IMPRESSION: 1. Trimalleolar displaced fracture of the ankle with slight asymmetry of the ankle mortise.
--- NOTE | 2022-01-07 11:29 | XR ---
EXAMINATION TYPE: XR chest 2V DATE OF EXAM: 01/07/2022 COMPARISON: 01/03/2022 TECHNIQUE: PA and lateral views submitted. HISTORY: Difficulty breathing FINDINGS: Postoperative changes are seen. The heart is enlarged and there is hyperinflation. The shoulder is osteopenia. Mildly coarsened interstitium with subsegmental changes at both lung base s. IMPRESSION: 1. Correlate for mild venous congestion or interstitial pneumonitis. Increased density in the lateral view in the lower lobes could represent atelectasis or developing
[2022-01-07 11:33] LABS: INR 1.2 (<1.2); Partial Thromboplastin Time 29.5 sec (22.0-30.0); Prothrombin Time 12.3 sec (9.0-12.0)
[2022-01-07 11:36] LABS: Albumin 3.9 g/dL (3.5-5.0); Calcium 8.7 mg/dL (8.4-10.2); Magnesium 1.8 mg/dL (1.6-2.3); Potassium 4.2 mmol/L (3.5-5.1); Total Bilirubin 0.7 mg/dL (0.2-1.3); Total Protein 6.5 g/dL (6.3-8.2)
--- NOTE | 2022-01-07 11:59 | US ---
EXAMINATION TYPE: US venous doppler duplex LE LT DATE OF EXAM: 01/07/2022 11:43 AM COMPARISON: 10/22/2019 CLINICAL HISTORY: pain.swelling. EC patient. Poor historian. SIDE PERFORMED: Left TECHNIQUE: The lower extremity deep venous system is examined utilizing real time linear array sonog maria ines with graded compression, doppler sonography and color-flow sonography. VESSELS IMAGED: Common Femoral Vein Deep Femoral Vein Greater Saphenous Vein * Femoral Vein Popliteal Vein Small Saphenous Vein * Proximal Calf Veins (* superficial vessels) Left Leg: Negative for DVT IMPRESSION: Grayscale, color doppler, spectral doppler imaging performed of the deep veins of the lo wer extremities. There is normal flow, compressibility, vascular waveforms.
[2022-01-07] MEDS ORDERED: FUROSEMIDE 10 MG/ML 4 ML VIAL IV STA ×2 (12:04→22:42)
[2022-01-07] MEDS ORDERED: methylPREDNISolone SOD SUCCI 125 MG/2 ML VIAL IV STA (12:50)
[2022-01-07] MEDS ORDERED: IPRATROPIUM-ALBUTEROL 3 ML NEB INHALATION STA (12:51)
[2022-01-07] MEDS ORDERED: ALBUTEROL NEBULIZED 2.5 MG/3 ML INHALATION STA (12:51)
[2022-01-07] MEDS ORDERED: NALOXONE 0.4 MG/ML 1 ML VIAL IVP PRN (12:52)
[2022-01-07] MEDS: methylPREDNISolone SOD SUCCI 125 MG/2 ML VIAL IV SCH (15:18)
[2022-01-07] MEDS ORDERED: ALBUTEROL NEBULIZED 2.5 MG/3 ML INHALATION PRN (19:25)
[2022-01-07] MEDS ORDERED: DEXTROSE 50% SYRINGE 50 ML IVP PRN ×2 (19:27)
[2022-01-07 21:21] LABS: Glucose,Whole Blood 259 mg/dL (70-110)
[2022-01-07] MEDS: INSULIN DETEMIR (LEVEMIR) 100 UNIT/ML SYR SQ SCH (21:48)
[2022-01-07] MEDS: FUROSEMIDE 10 MG/ML 4 ML VIAL IV SCH (21:50)
[2022-01-07] MEDS: INSULIN ASPART (NovoLOG) 100 UNIT/ML VIAL SQ SCH (22:01)
[2022-01-07] MEDS: IPRATROPIUM-ALBUTEROL 3 ML NEB INHALATION SCH (22:38)
[2022-01-07] MEDS: IPRATROPIUM-ALBUTEROL 3 ML NEB INHALATION PRN (22:40)
[2022-01-07 22:48] LABS: Glucose,Whole Blood 262 mg/dL (70-110)
[2022-01-07 22:58] LABS: ABG HCO3 29 mmol/L (21-25); ABG Oxygen Saturation 95.5 % (94-97); ABG PCO2 45 mmHg (35-45); ABG PH 7.43 (7.35-7.45); ABG PO2 104 mmHg (83-108); ABG TCO2 31 mmol/L (19-24); Allen Test Performed? Yes
--- NOTE | 2022-01-07 23:02 | XR ---
EXAMINATION TYPE: XR chest 1V portable DATE OF EXAM: 01/07/2022 COMPARISON: Today HISTORY: Short of breath TECHNIQUE: FINDINGS: Heart is enlarged. There are sternal wires. There is no gross heart failure. Costophrenic a ngles are clear. There is slight increased interstitial density in the lower lung george. There are c hest leads. IMPRESSION: Increased pulmonary interstitial density compared to exam this morning and could be mild interstitial pneumonia.
[2022-01-07] MEDS ORDERED: ACETAMINOPHEN IV (For NPO) 1,000 MG in EMPTY BAG 1 BAG IVPB ONE (23:06)
[2022-01-07] MEDS ORDERED: LORazepam 1 MG/0.5 ML VIAL IV PRN (23:07)
[2022-01-07] MEDS ORDERED: MORPHINE SULFATE 2 MG/ML SYRINGE IVP STA (23:08)
[2022-01-07 23:18] LABS: Basophils % (A) 0 %; Eosinophils # (A) 0.1 k/uL (0-0.7); Eosinophils % (A) 1 %; HCT 36.3 % (39.0-53.0); HGB 11.3 gm/dL (13.0-17.5); Hypochromasia Marked; Lymphocytes # (A) 0.3 k/uL (1.0-4.8); Lymphocytes % (A) 3 %; MCH 28.1 pg (25.0-35.0); MCHC 31.1 g/dL (31.0-37.0); MCV 90.2 fL (80.0-100.0); Mean Platelet Volume 7.4; Monocytes # (A) 0.7 k/uL (0-1.0); Monocytes % (A) 6 %; Neutrophils # (A) 9.7 k/uL (1.3-7.7); Neutrophils % (A) 90 %; Platelet Count 363 k/uL (150-450); RBC 4.02 m/uL (4.30-5.90); RDW 15.9 % (11.5-15.5); WBC 10.8 k/uL (3.8-10.6)
[2022-01-07 23:26] LABS: Calcium 8.7 mg/dL (8.4-10.2); Magnesium 1.7 mg/dL (1.6-2.3); Potassium 4.3 mmol/L (3.5-5.1)
[2022-01-08] MEDS: APIXABAN 5 MG TAB PO SCH ×3 (00:40→20:30)
[2022-01-08] MEDS: ATORVASTATIN 40 MG TAB PO SCH ×2 (00:40→23:07)
[2022-01-08] MEDS: MIRTAZAPINE 15 MG TAB PO SCH ×2 (00:40→23:07)
[2022-01-08] MEDS: DULoxetine HCL 60 MG CAPSULE.DR PO SCH ×3 (00:40→23:07)
[2022-01-08] MEDS: GABAPENTIN 300 MG CAP PO SCH ×3 (00:41→23:08)
[2022-01-08] MEDS: methylPREDNISolone SOD SUCCI 125 MG/2 ML VIAL IV SCH ×3 (00:45→16:18)
[2022-01-08] MEDS: IPRATROPIUM-ALBUTEROL 3 ML NEB INHALATION PRN (03:39)
[2022-01-08 06:55] LABS: Glucose,Whole Blood 182 mg/dL (70-110)
[2022-01-08] MEDS: INSULIN ASPART (NovoLOG) 100 UNIT/ML VIAL SQ SCH ×4 (07:04→20:29)
[2022-01-08] MEDS ORDERED: PANTOPRAZOLE 40 MG TABLET PO SCH (07:30)
--- NOTE | 2022-01-08 08:02 | P.CNOR ---
History of Present Illness - [facility] Consult date: 01/08/22 Consult reason: fracture (Left ankle fracture.) History of present illness: This is a 66-year-old male with history of multiple falls in the past couple of days. The patient was recently discharged from the hospital last Thursday and has fallen at least 4 times since he has been home. He lives with family who states that his mental status has changed as well. He has had significant weakness and shortness of breath. He was brought to the emergency department last evening via EMS and found to be in respiratory failure and exacerbation of congestive heart failure and COPD. He was also found to have a left ankle fracture. Reportedly he has a trimalleolar fracture. There is no lateral view of the ankle that I can see. We are consult for orthopedic evaluation of the ankle fracture. Family is present at bedside. Past Medical History Past Medical History: Atrial Fibrillation, Coronary Artery Disease (CAD), Chest Pain / Angina, Heart Failure, Diabetes Mellitus, GERD/Reflux, Hyperlipidemia, Hypertension, Myocardial Infarction (CT) Additional Past Medical History / Comment(s): Pt recently admitted to [facility] on 09/13/21 with acute on chronic chf, here 01/03/22 htn, pulm edema, acute hypoxic respiratory failure and elevated LFTs. Other hx: IDDM type II, ischemic cardiomyopathy, chronic low back and bilateral leg pain, past R scrotal a bscess/sepsis. CHF Last Myocardial Infarction Date:: 03/20/15 History of Any Multi-Drug Resistant Organisms: None Reported Past Surgical History: Back Surgery, Coronary Bypass/CABG, Heart Catheterization, Heart Catheterization With Stent, Orthopedic Surgery Additional Past Surgical History / Comment(s): 08/23/2019 CABG 3 vessels, PCI with total of 5 stents, L ankle ligament repair, R leg ORIF, low back surgery, colonoscopy. Past Anesthesia/Blood Transfusion Reactions: No Reported Reaction Additional Past Anesthesia/Blood Transfusion Reaction / Comm: Pt has received blood in past without reaction. Date of Last Stent Placement:: 02/2015 Past Psychological History: No Psychological Hx Reported Additional Psychological History / Comment(s): Pt resides with his sister. He has a cane to ambulate and has a glucometer. He has had home care thru [facility]. Smoking Status: Former smoker Past Alcohol Use History: None Reported Additional Past Alcohol Use History / Comment(s): Pt started smoking in 1968 and quit in 2014. He was a 2 ppd smoker. Pt states he was a heavy drinker but quit in 2001. Past Drug Use History: Marijuana Additional Drug Use History / Comment(s): Occasional marijuana. - Past Family History Sister(s) Family Medical History: Coronary Artery Disease (CAD), Hypertension Father Family Medical History: Coronary Artery Disease (CAD), Diabetes Mellitus, Deep Vein Thrombosis (DVT), Hypertension Additional Family Medical History / Comment(s): Father at age 58yrs. He of blood clot from leg injury that went to his heart. Medications and Allergies Home Medications Medication Instructions Recorded Confirmed Type DULoxetine HCL [Cymbalta] 60 mg PO BID 11/16/19 01/07/22 History oxyCODONE HCL [oxyCODONE HCL (IR)] 15 mg PO Q8H 03/01/20 01/07/22 History Aspirin 81 mg PO DAILY #30 chew 04/10/20 01/07/22 Rx Apixaban [Eliquis] 5 mg PO BID #60 tab 10/02/20 01/07/22 Rx Atorvastatin [Lipitor] 40 mg PO HS 01/31/21 01/07/22 History metFORMIN HCL [Glucophage] 1,000 mg PO BID 01/31/21 01/07/22 History Albuterol Sulfate [Albuterol 2 puff INHALATION RT-QID PRN 05/08/21 01/07/22 History Sulfate Hfa] Gabapentin 600 mg PO TID 09/11/21 01/07/22 History Insulin Glargine,Hum.rec.anlog 25 unit SQ HS 09/11/21 01/07/22 History [Basaglar Shelliikpen U-100] Pantoprazole Sodium [Protonix] 40 mg PO DAILY 09/11/21 01/07/22 History fentaNYL 100MCG/HR PATCH 1 patch TRANSDERM Q72H 09/11/21 01/07/22 History [Duragesic 100MCG/HR] methocarbamoL [Robaxin-750] 750 mg PO TID 09/11/21 01/07/22 History Amiodarone [Cordarone] 100 mg PO DAILY #30 tab 09/16/21 01/07/22 Rx Sacubitril/Valsartan [Entresto 49 1 tab PO DAILY 10/11/21 01/07/22 History mg-51 mg Tablet] Insulin Aspart [NovoLOG Flexpen] 10 units SQ AC-BID 01/03/22 01/07/22 History Metoprolol Succinate (ER) [Toprol 100 mg PO DAILY 01/03/22 01/07/22 History XL] Mirtazapine 15 mg PO HS 01/03/22 01/07/22 History Furosemide [Lasix] 40 mg PO BID@0900,1600 #60 tab 01/05/22 01/07/22 Rx Spironolactone [Aldactone] 25 mg PO DAILY #30 tab 01/05/22 01/07/22 Rx Allergies Allergy/AdvReac Type Severity Reaction Status Date / Time No Known Allergies Allergy Verified 01/07/22 12:41 Physical Examination This is a 66-year-old male in slight respiratory distress. He is on a nonrebreather mask for oxygen. He has significant restlessness. Family is present at bedside. Exam of the left lower extremity reveals that there is a short leg splint intact. There are multiple scars about the anterior left knee. He is significantly restlessness while laying in bed. Neurovascular status of lower extremity is grossly intact. The remainder of his musculoskeletal exam is unremarkable. Results X-rays of the left ankle reveal a distal fibular and medial malleolar fracture with mild displacement. I do not see a lateral view of the ankle. - Labs Labs: Abnormal Lab Results - Last 24 Hours (Table) 01/07/22 01/07/22 01/07/22 Range/Units 11:16 11:16 11:16 WBC (3.8-10.6) k/uL RBC 3.49 L (4.30-5.90) m/uL Hgb 9.6 L (13.0-17.5) gm/dL Hct 31.1 L (39.0-53.0) % MCHC 30.9 L (31.0-37.0) g/dL RDW 16.2 H (11.5-15.5) % Neutrophils # 8.6 H (1.3-7.7) k/uL Lymphocytes # 0.8 L (1.0-4.8) k/uL PT 12.3 H (9.0-12.0) sec INR 1.2 H (<1.2) ABG HCO3 (21-25) mmol/L ABG Total CO2 (19-24) mmol/L BUN 35 H (9-20) mg/dL Creatinine 1.36 H (0.66-1.25) mg/dL Glucose 241 H (74-99) mg/dL POC Glucose (mg/dL) (70-110) mg/dL Hemoglobin A1c (0.0-6.0) % Alkaline Phosphatase 236 H (38-126) U/L 01/07/22 01/07/22 01/07/22 Range/Units 11:16 21:20 22:47 WBC (3.8-10.6) k/uL RBC (4.30-5.90) m/uL Hgb (13.0-17.5) gm/dL Hct (39.0-53.0) % MCHC (31.0-37.0) g/dL RDW (11.5-15.5) % Neutrophils # (1.3-7.7) k/uL Lymphocytes # (1.0-4.8) k/uL PT (9.0-12.0) sec INR (<1.2) ABG HCO3 (21-25) mmol/L ABG Total CO2 (19-24) mmol/L BUN (9-20) mg/dL Creatinine (0.66-1.25) mg/dL Glucose (74-99) mg/dL POC Glucose (mg/dL) 259 H 262 H (70-110) mg/dL Hemoglobin A1c 8.2 H (0.0-6.0) % Alkaline Phosphatase (38-126) U/L 01/07/22 01/07/22 01/07/22 Range/Units 22:56 22:58 22:58 WBC 10.8 H (3.8-10.6) k/uL RBC 4.02 L (4.30-5.90) m/uL Hgb 11.3 L (13.0-17.5) gm/dL Hct 36.3 L (39.0-53.0) % MCHC (31.0-37.0) g/dL RDW 15.9 H (11.5-15.5) % Neutrophils # 9.7 H (1.3-7.7) k/uL Lymphocytes # 0.3 L (1.0-4.8) k/uL PT (9.0-12.0) sec INR (<1.2) ABG HCO3 29 H (21-25) mmol/L ABG Total CO2 31 H (19-24) mmol/L BUN 39 H (9-20) mg/dL Creatinine 1.39 H (0.66-1.25) mg/dL Glucose 275 H (74-99) mg/dL POC Glucose (mg/dL) (70-110) mg/dL Hemoglobin A1c (0.0-6.0) % Alkaline Phosphatase (38-126) U/L 01/08/22 Range/Units 06:53 WBC (3.8-10.6) k/uL RBC (4.30-5.90) m/uL Hgb (13.0-17.5) gm/dL Hct (39.0-53.0) % MCHC (31.0-37.0) g/dL RDW (11.5-15.5) % Neutrophils # (1.3-7.7) k/uL Lymphocytes # (1.0-4.8) k/uL PT (9.0-12.0) sec INR (<1.2) ABG HCO3 (21-25) mmol/L ABG Total CO2 (19-24) mmol/L BUN (9-20) mg/dL Creatinine (0.66-1.25) mg/dL Glucose (74-99) mg/dL POC Glucose (mg/dL) 182 H (70-110) mg/dL Hemoglobin A1c (0.0-6.0) % Alkaline Phosphatase (38-126) U/L H & H 01/07/22 01/07/22 Range/Units 11:16 22:58 Hgb 9.6 L 11.3 L (13.0-17.5) gm/dL Hct 31.1 L 36.3 L (39.0-53.0) % Coagulation 01/07/22 Range/Units 11:16 INR 1.2 H (<1.2) Result Diagrams: 01/07/22 22:58 01/07/22 22:58 Assessment and Plan (1) Acute exacerbation of chronic obstructive pulmonary disease Current Visit: Yes Status: Acute Code(s): J44.1 - CHRONIC OBSTRUCTIVE PULMONARY DISEASE W (ACUTE) EXACERBATION SNOMED Code(s): 014199014 (2) CHF exacerbation Current Visit: Yes Status: Acute Code(s): I50.9 - HEART FAILURE, UNSPECIFIED SNOMED Code(s): 453479970 (3) Trimalleolar fracture of ankle, closed Current Visit: Yes Status: Acute Code(s): S82.853A - DISPLACED TRIMALLEOLAR FRACTURE OF UNSP LOWER LEG, INIT SNOMED Code(s): 9625593 Plan: The clinical and x-ray findings are discussed with the patient and his family. The patient is not a surgical candidate at this time. I will order a boot for his left ankle. Nursing may take him out of the splint dressing his blisters on the ankle and place him in the boot. It is discussed with family that we have of about a 2 week window to fix his ankle. He is currently a DO NOT RESUSCITATE patient. We will follow peripherally to see if his medical condition improves.
[2022-01-08] MEDS: FUROSEMIDE 10 MG/ML 4 ML VIAL IV SCH ×2 (08:36→20:23)
[2022-01-08] MEDS: IPRATROPIUM-ALBUTEROL 3 ML NEB INHALATION SCH ×5 (08:43→20:27)
[2022-01-08] MEDS ORDERED: NITROGLYCERIN-D5W PMX 50 MG in DEXTROSE/WATER 1 250ML.BAG IV SCH (09:30)
[2022-01-08 09:44] LABS: ABG HCO3 36 mmol/L (21-25); ABG Oxygen Saturation 95.4 % (94-97); ABG PCO2 47 mmHg (35-45); ABG PH 7.48 (7.35-7.45); ABG PO2 91 mmHg (83-108); ABG TCO2 37 mmol/L (19-24); Allen Test Performed? Yes
--- NOTE | 2022-01-08 11:26 | P.CRDCN ---
History of Present Illness Consult date: 01/08/22 Consult reason: congestive heart failure History of present illness: The patient is a 66-year-old male with multiple comorbidities conditions who was recently admitted to the hospital with congestive heart failure exacerbation. He was discharged on January 05, however was brought back to the hospital for mental status changes and mechanical fall. According to the family he has been very lethargic and disoriented since his discharge. Due to limited arousal, he was not compliant with his cardiac medication regimen. DIAGNOSTICS: EKG shows sinus rhythm with first-degree AV block Chest x-ray shows increased pulmonary interstitial density Ankle x-ray shows displaced fracture Lower extremity venous Doppler shows no evidence of DVT Lab data: CBC 10.8, hemoglobin 11.3, hematocrit 36.3, platelet 363, sodium 144, potassium 4.3, BUN 39, creatinine 1.39, hemoglobin A1c 8.2, magnesium 1.7, AST 29, ALT 34, ALP 236, troponin less than 0.02, BNP 12,200 PAST MEDICAL HISTORY: Coronary artery disease with prior stenting and CABG, ischemic cardiomyopathy, congestive heart failure, diabetes, hypertension, dyslipidemia, chronic pain with opioid use REVIEW OF SYSTEMS: Limited due to neurological status PHYSICAL EXAMINATION: This is a 66-year-old male in no apparent distress at the time of my examination. HEENT: Head is atraumatic, normocephalic. Pupils are equal, round. Sclerae anicteric. Conjunctivae are clear. Mucous membranes of the mouth are moist. Neck is supple. There is no jugular venous distention. No carotid bruit is heard. CHEST EXAMINATION: Lungs are rhonchorous to auscultation. No chest wall tenderness is noted on palpation or with deep breathing. HEART EXAMINATION: Heart regular rate and rhythm. S1, S2 heard. No murmurs, gallops or rub. ABDOMEN: Soft, nontender. Bowel sounds are heard. No organomegaly noted. EXTREMITIES: 2+ peripheral pulses with no evidence of peripheral edema and no calf tenderness noted. NEUROLOGIC EXAMINATION: Patient is lethargic. Awakens only to physical stimuli. Does not answer questions. FINAL ASSESSMENT AND PLAN: Acute on chronic congestive heart failure Mental status changes, opioid abuse versus respiratory failure Paroxysmal atrial fibrillation, on anticoagulation at home Ischemic cardiomyopathy, EF 30-35% History of coronary artery disease History diabetes History of hypertension History of hyperlipidemia PLAN: Recommend continuing IV Lasix Start nitroglycerin drip at 20 g Hold by mouth medications until cleared by speech and the patient's neurological status has improved Recommend pulmonary consultation Further recommendations based on clinical course I am dictating on behalf of Dr Travis Caban's history/physical and assessment/plan. Past Medical History Past Medical History: Atrial Fibrillation, Coronary Artery Disease (CAD), Chest Pain / Angina, Heart Failure, Diabetes Mellitus, GERD/Reflux, Hyperlipidemia, Hypertension, Myocardial Infarction ([place]) Additional Past Medical History / Comment(s): Pt recently admitted to [facility] on 09/13/21 with acute on chronic chf, here 01/03/22 htn, pulm edema, acute hypoxic respiratory failure and elevated LFTs. Other hx: IDDM type II, ischemic cardiomyopathy, chronic low back and bilateral leg pain, past R scrotal abscess/sepsis. CHF Last Myocardial Infarction Date:: 03/20/15 History of Any Multi-Drug Resistant Organisms: None Reported Past Surgical History: Back Surgery, Coronary Bypass/CABG, Heart Catheterization, Heart Catheterization With Stent, Orthopedic Surgery Additional Past Surgical History / Comment(s): 08/23/2019 CABG 3 vessels, PCI with total of 5 stents, L ankle ligament repair, R leg ORIF, low back surgery, colonoscopy. Past Anesthesia/Blood Transfusion Reactions: No Reported Reaction Additional Past Anesthesia/Blood Transfusion Reaction / Comment(s): Pt has received blood in past without reaction. Date of Last Stent Placement:: 02/2015 Past Psychological History: No Psychological Hx Reported Additional Psychological History / Comment(s): Pt resides with his sister. He has a cane to ambulate and has a glucometer. He has had home care thru [facility]. Smoking Status: Former smoker Past Alcohol Use History: None Reported Additional Past Alcohol Use History / Comment(s): Pt started smoking in 1968 and quit in 2014. He was a 2 ppd smoker. Pt states he was a heavy drinker but quit in 2001. Past Drug Use History: Marijuana Additional Drug Use History / Comment(s): Occasional marijuana. - Past Family History Sister(s) Family Medical History: Coronary Artery Disease (CAD), Hypertension Father Family Medical History: Coronary Artery Disease (CAD), Diabetes Mellitus, Deep Vein Thrombosis (DVT), Hypertension Additional Family Medical History / Comment(s): Father at age 58yrs. He of blood clot from leg injury that went to his heart. Medications and Allergies Home Medications Medication Instructions Recorded Confirmed Type DULoxetine HCL [Cymbalta] 60 mg PO BID 11/16/19 01/07/22 History oxyCODONE HCL [oxyCODONE HCL (IR)] 15 mg PO Q8H 03/01/20 01/07/22 History Aspirin 81 mg PO DAILY #30 chew 04/10/20 01/07/22 Rx Apixaban [Eliquis] 5 mg PO BID #60 tab 10/02/20 01/07/22 Rx Atorvastatin [Lipitor] 40 mg PO HS 01/31/21 01/07/22 History metFORMIN HCL [Glucophage] 1,000 mg PO BID 01/31/21 01/07/22 History Albuterol Sulfate [Albuterol 2 puff INHALATION RT-QID PRN 05/08/21 01/07/22 History Sulfate Hfa] Gabapentin 600 mg PO TID 09/11/21 01/07/22 History Insulin Glargine,Hum.rec.anlog 25 unit SQ HS 09/11/21 01/07/22 History [Basaglar Kwikpen U-100] Pantoprazole Sodium [Protonix] 40 mg PO DAILY 09/11/21 01/07/22 History fentaNYL 100MCG/HR PATCH 1 patch TRANSDERM Q72H 09/11/21 01/07/22 History [Duragesic 100MCG/HR] methocarbamoL [Robaxin-750] 750 mg PO TID 09/11/21 01/07/22 History Amiodarone [Cordarone] 100 mg PO DAILY #30 tab 09/16/21 01/07/22 Rx Sacubitril/Valsartan [Entresto 49 1 tab PO DAILY 10/11/21 01/07/22 History mg-51 mg Tablet] Insulin Aspart [NovoLOG Flexpen] 10 units SQ AC-BID 01/03/22 01/07/22 History Metoprolol Succinate (ER) [Toprol 100 mg PO DAILY 01/03/22 01/07/22 History XL] Mirtazapine 15 mg PO HS 01/03/22 01/07/22 History Furosemide [Lasix] 40 mg PO BID@0900,1600 #60 tab 01/05/22 01/07/22 Rx Spironolactone [Aldactone] 25 mg PO DAILY #30 tab 01/05/22 01/07/22 Rx Allergies Allergy/AdvReac Type Severity Reaction Status Date / Time No Known Allergies Allergy Verified 01/07/22 12:41 Physical Exam Vitals: Vital Signs Temp Pulse Pulse Pulse Pulse Resp BP 01/08/22 08:51 78 01/08/22 08:43 76 01/08/22 08:35 99.6 F 82 82 20 01/08/22 08:30 01/08/22 04:30 99.3 F 01/08/22 04:08 82 01/08/22 04:00 101.4 F H 81 16 01/08/22 03:43 99 01/08/22 03:41 01/08/22 02:00 79 91 01/07/22 23:24 97.6 F 91 16 01/07/22 23:16 92 01/07/22 22:47 01/07/22 22:46 92 01/07/22 20:47 179/86 01/07/22 20:00 30 H 01/07/22 19:40 15 01/07/22 19:39 79 01/07/22 19:37 61 15 01/07/22 15:00 68 8 L 153/115 01/07/22 14:50 67 7 L 153/115 01/07/22 14:40 67 10 L 153/115 01/07/22 14:30 67 12 147/103 01/07/22 14:20 66 8 L 147/103 01/07/22 14:10 68 7 L 147/103 01/07/22 14:07 70 01/07/22 14:00 68 7 L 151/77 01/07/22 13:53 68 01/07/22 13:50 67 5 L 151/77 01/07/22 13:40 66 10 L 151/77 01/07/22 13:30 68 9 L 147/104 01/07/22 13:20 70 10 L 147/104 01/07/22 13:10 70 147/104 01/07/22 13:00 74 14 166/102 01/07/22 12:30 76 13 167/106 01/07/22 12:00 76 22 179/100 01/07/22 11:27 81 20 177/99 BP BP Pulse Ox FiO2 01/08/22 08:51 01/08/22 08:43 01/08/22 08:35 168/83 99 50 01/08/22 08:30 50 01/08/22 04:30 01/08/22 04:08 01/08/22 04:00 170/77 98 01/08/22 03:43 01/08/22 03:41 50 01/08/22 02:00 01/07/22 23:24 155/80 100 01/07/22 23:16 01/07/22 22:47 60 01/07/22 22:46 01/07/22 20:47 01/07/22 20:00 98 01/07/22 19:40 80/57 01/07/22 19:39 98/56 01/07/22 19:37 90/71 01/07/22 15:00 100 01/07/22 14:50 100 01/07/22 14:40 100 01/07/22 14:30 100 01/07/22 14:20 100 01/07/22 14:10 96 01/07/22 14:07 01/07/22 14:00 100 01/07/22 13:53 01/07/22 13:50 100 01/07/22 13:40 93 L 01/07/22 13:30 93 L 01/07/22 13:20 100 01/07/22 13:10 01/07/22 13:00 94 L 01/07/22 12:30 100 01/07/22 12:00 95 01/07/22 11:27 99 Intake and Output 01/07/22 01/08/22 01/08/22 22:59 06:59 14:59 Output Total 400 700 Balance -400 -700 Output: Urine 400 700 Other: Voiding Method Diaper Indwelling Catheter Indwelling Catheter External Catheter Weight 76.657 kg 68.5 kg Results 01/07/22 22:58 01/07/22 22:58 Cardiac Enzymes 01/07/22 01/07/22 Range/Units 11:16 11:16 AST 29 (17-59) U/L Troponin I <0.012 (0.000-0.034) ng/mL Coagulation 01/07/22 Range/Units 11:16 PT 12.3 H (9.0-12.0) sec APTT 29.5 (22.0-30.0) sec CBC 01/07/22 01/07/22 Range/Units 11:16 22:58 WBC 10.5 10.8 H (3.8-10.6) k/uL RBC 3.49 L 4.02 L (4.30-5.90) m/uL Hgb 9.6 L 11.3 L (13.0-17.5) gm/dL Hct 31.1 L 36.3 L (39.0-53.0) % Plt Count 349 363 (150-450) k/uL Comprehensive Metabolic Panel 01/07/22 01/07/22 Range/Units 11:16 22:58 Sodium 142 144 (137-145) mmol/L Potassium 4.2 4.3 (3.5-5.1) mmol/L Chloride 100 101 (98-107) mmol/L Carbon Dioxide 29 24 (22-30) mmol/L BUN 35 H 39 H (9-20) mg/dL Creatinine 1.36 H 1.39 H (0.66-1.25) mg/dL Glucose 241 H 275 H (74-99) mg/dL Calcium 8.7 8.7 (8.4-10.2) mg/dL AST 29 (17-59) U/L ALT 34 (4-49) U/L Alkaline Phosphatase 236 H (38-126) U/L Total Protein 6.5 (6.3-8.2) g/dL Albumin 3.9 (3.5-5.0) g/dL Current Medications Generic Name Dose Route Start Last Admin Trade Name Freq PRN Reason Stop Dose Admin Hydrocodone Bitart/Acetaminophen 1 each 01/07/22 12:52 Hydrocodone/Apap 5-325mg 1 Each Tab PO Q6HR PRN Moderate to Severe Pain Albuterol/Ipratropium 3 ml 01/07/22 12:52 01/08/22 03:39 Ipratropium-Albuterol 3 Ml Neb INHALATION 3 ml RT-Q2H PRN Administration Shortness Of Breath Or Wheezing Albuterol/Ipratropium 3 ml 01/07/22 16:00 01/08/22 08:43 Ipratropium-Albuterol 3 Ml Neb INHALATION 3 ml RT-QID GABBY Administration Amiodarone HCl 100 mg 01/08/22 09:00 Amiodarone 100 Mg Tab PO DAILY GABBY Apixaban 5 mg 01/07/22 21:00 01/08/22 00:40 Apixaban 5 Mg Tab PO Not Given BID [facility] Protocol Aspirin 81 mg 01/08/22 09:00 Aspirin 81 Mg PO DAILY [facility] Atorvastatin Calcium 40 mg 01/07/22 21:00 01/08/22 00:40 Atorvastatin 40 Mg Tab PO Not Given HS GABBY Dextrose/Water 25 ml 01/07/22 19:27 Dextrose 50% Syringe 50 Ml IVP PER PROTOCOL PRN Hypoglycemia Protocol Dextrose/Water 50 ml 01/07/22 19:27 Dextrose 50% Syringe 50 Ml IVP PER PROTOCOL PRN Hypoglycemia Protocol Duloxetine HCl 60 mg 01/07/22 21:00 01/08/22 00:40 Duloxetine Hcl 60 Mg Capsule.Dr PO Not Given BID [facility] Furosemide 40 mg 01/07/22 21:00 01/08/22 08:36 Furosemide 10 Mg/Ml 4 Ml Vial IV 40 mg Q12HR GABBY Administration Gabapentin 600 mg 01/07/22 22:00 01/08/22 00:41 Gabapentin 300 Mg Cap PO Not Given TID [facility] Nitroglycerin/Dextrose 50 mg/ 250 mls @ 6 mls/hr 01/08/22 09:30 IV Solution IV .Q24H GABBY 20 MCG/MIN Piperacillin Sod/Tazobactam 100 mls @ 25 mls/hr 01/08/22 10:45 Sod 3.375 gm/ Sodium Chloride IVPB Q8HR [facility] Protocol Insulin Aspart 0 unit 01/07/22 21:00 01/08/22 07:04 Insulin Aspart (Novolog) 100 Unit/Ml Vial SQ 1 unit ACHS [facility] Administration Protocol Insulin Detemir 10 unit 01/07/22 21:00 01/07/22 21:48 Insulin Detemir (Levemir) 100 Unit/Ml Syr SQ 10 unit HS [facility] Administration Lorazepam 0.5 mg 01/08/22 06:45 Lorazepam 1 Mg/0.5 Ml Vial IV Q4HR PRN Anxiety Methylprednisolone Sodium Succinate 60 mg 01/07/22 16:00 01/08/22 08:37 Methylprednisolone Sod Succi 125 Mg/2 Ml Vial IV 60 mg Q8HR [facility] Administration Metoprolol Succinate 100 mg 01/08/22 09:00 Metoprolol Succinate (Er) 100 Mg Tab.Er.24h PO DAILY [facility] Mirtazapine 15 mg 01/07/22 21:00 01/08/22 00:40 Mirtazapine 15 Mg Tab PO Not Given HS GABBY Naloxone HCl 0.2 mg 01/07/22 12:52 Naloxone 0.4 Mg/Ml 1 Ml Vial IVP Q2M PRN Opioid Reversal Pantoprazole Sodium 40 mg 01/08/22 10:45 Pantoprazole 40 Mg/10 Ml Vial IVP DAILY GABBY Spironolactone 25 mg 01/08/22 09:00 Spironolactone 25 Mg Tab PO DAILY GABBY Intake and Output 01/07/22 01/08/22 01/08/22 22:59 06:59 14:59 Output Total 400 700 Balance -400 -700 Output: Urine 400 700 Other: Voiding Method Diaper Indwelling Catheter Indwelling Catheter External Catheter Weight 76.657 kg 68.5 kg 01/07/22 22:58 01/07/22 22:58
[2022-01-08 11:49] LABS: Anisocytosis Slight; Hypochromasia Marked; MCH 27.6 pg (25.0-35.0); MCHC 31.2 g/dL (31.0-37.0); MCV 88.7 fL (80.0-100.0); Mean Platelet Volume 7.9; Platelet Count 266 k/uL (150-450); RBC 3.49 m/uL (4.30-5.90); RDW 16.3 % (11.5-15.5); WBC 10.7 k/uL (3.8-10.6)
[2022-01-08] MEDS: PIPERACILLIN-TAZOBACTAM 3.375 GM in SODIUM CHLORIDE 0.9% 100 ML IVPB SCH ×2 (11:51→16:18)
[2022-01-08 11:53] LABS: HGB 9.7 gm/dL (13.0-17.5)
[2022-01-08] MEDS: PANTOPRAZOLE 40 MG/10 ML VIAL IVP SCH (11:53)
[2022-01-08 11:58] LABS: Glucose,Whole Blood 187 mg/dL (70-110)
[2022-01-08 12:20] LABS: Calcium 8.2 mg/dL (8.4-10.2); Magnesium 1.7 mg/dL (1.6-2.3); Potassium 3.5 mmol/L (3.5-5.1)
[2022-01-08] MEDS ORDERED: ACETAMINOPHEN SUPPOSITORY 650 MG SUPP RECTAL PRN (15:36)
--- NOTE | 2022-01-08 15:43 | P.CNPUL ---
History of Present Illness Consult date: 01/08/22 Reason for consult: dyspnea History of present illness: This is a 66-year-old patient with known history of coronary artery disease, previous bypass surgery, history of severe cardiomyopathy ischemic in nature with an ejection fraction of 25% with multiple hospitalizations for complications related to his cardiac disease. His last echocardiogram from 09/12/2021 has shown an ejection fraction of 30-35% along with hypokinesis involving the inferobasilar basilar and inferior wall as well as the anteroseptal portion. The cardiac valves were intact. The patient is also known to have chronic active fibrillation, hypertension, diabetes mellitus type 2 and chronic kidney disease. The patient also has issues with chronic pain and chronic opiate use. He was discharged from the hospital on 01/05/2022 after being admitted for CHF exacerbation. The patient was discharged home with guarded prognosis. Cardiology cleared this patient discharged and accordingly was released home. He was discharged home on Lasix 40 units by mouth twice a d ay and Aldactone 25 mg by mouth as diuretics. The patient's was brought back to the hospital yesterday because of an altered mental status in the fall. He was very much lethargic and disoriented since his discharge. In the ED, the patient was given an EKG that showed a normal sinus mechanism. He had a first degree AV block. His chest x-ray showed some mild interstitial prominence. His proBNP level was quite elevated at 12,200. His white cell count was a complicated with a hemoglobin of 11.3 and a platelet count of 363. He has a BUN of 39 with a creatinine of 1.35 and a magnesium level of 1.7. He was given a blood gas because of worsening shortness of breath. The patient's initial blood gas showed a pH of 7.43 with a pCO2 of 45 and pO2 of 104 and this was on FiO2 of 100%. Subsequently, and a 50% FiO2 and blood gases from today showed a pH of 7.48 with a total 47 and pO2 of 91. A repeat chest x-ray from today shows improvement in the volume status. Patient's currently is on DuoNeb nebulizer treatments [id number], is on Lasix 40 mg IV every 12 hours. He is also on Aldactone 25 mg by mouth daily. He remains on amiodarone 100 mg by mouth daily. Long-term antibiotic irrigation was without a course. The patient is also on metoprolol 100 mg by mouth daily. His also diabetic on 10 units of Levemir insulin and a sliding scale coverage. As far as pain control, he takes oxycodone 50 mg every 8 hours, fentanyl patch 100 g every 72 hours and is also on Cymbalta 60 mg by mouth twice a day. Overnight, the patient was found to be hypoxic and short of breath. Immediately, he was placed on a BiPAP which is currently running at a setting of 14/6 cm of water with an FiO2 50%. I believe the blood gas was somewhat him on a BiPAP and the patient is adequately oxyge nating and ventilating for now. Review of Systems CONSTITUTIONAL: N EYES: Denies change in vision. EARS, NOSE, MOUTH, THROAT: Negative. CARDIOVASCULAR: Negative. RESPIRATORY: shortness of breath, cough, congestion or hemoptysis. GASTROINTESTINAL: Nausea and vomiting for 2 days prior to presentation. GENITOURINARY: Denies hematuria, denies infections. MUSKULOSKELETAL: Denies pain, denies swelling. INTEGUMENTARY: Denies rash, denies eczema. NEUROLOGICAL: Denies recent memory loss, no recent seizure activity. PSYCHIATRIC: Denies anxiety, denies depression. HEMATOLOGIC/LYMPHATIC: Denies anemia, denies enlarged lymph nodes. Past Medical History Past Medical History: Atrial Fibrillation, Coronary Artery Disease (CAD), Chest Pain / Angina, Heart Failure, Diabetes Mellitus, GERD/Reflux, Hyperlipidemia, Hypertension, Myocardial Infarction (MT) Additional Past Medical History / Comment(s): Chronic chf, here 01/03/22 htn, pulm edema, acute hypoxic respiratory failure and elevated LFTs. Other hx: IDDM type II, ischemic cardiomyopathy, chronic low back and bilateral leg pain, past R scrotal abscess/sepsis. CHF Last Myocardial Infarction Date:: 03/20/15 History of Any Multi-Drug Resistant Organisms: None Reported Past Surgical History: Back Surgery, Coronary Bypass/CABG, Heart Catheterization, Heart Catheterization With Stent, Orthopedic Surgery Additional Past Surgical History / Comment(s): 08/23/2019 CABG 3 vessels, PCI with total of 5 stents, L ankle ligament repair, R leg ORIF, low back surgery, colonoscopy. Past Anesthesia/Blood Transfusion Reactions: No Reported Reaction Additional Past Anesthesia/Blood Transfusion Reaction / Comment(s): Pt has received blood in past without reaction. Date of Last Stent Placement:: 02/2015 Past Psychological History: No Psychological Hx Reported Additional Psychological History / Comment(s): Pt resides with his sister. He has a cane to ambulate and has a glucometer. He has had home care thru [facility]. Smoking Status: Former smoker Past Alcohol Use History: None Reported Additional Past Alcohol Use History / Comment(s): Pt started smoking in 1968 and quit in 2014. He was a 2 ppd smoker. Pt states he was a heavy drinker but quit in 2001. Past Drug Use History: Marijuana Additional Drug Use History / Comment(s): Occasional marijuana. - Past Family History Sister(s) Family Medical History: Coronary Artery Disease (CAD), Hypertension Father Family Medical History: Coronary Artery Disease (CAD), Diabetes Mellitus, Deep Vein Thrombosis (DVT), Hypertension Additional Family Medical History / Comment(s): Father at age 58yrs. He of blood clot from leg injury that went to his heart. Medications and Allergies Home Medications Medication Instructions Recorded Confirmed Type DULoxetine HCL [Cymbalta] 60 mg PO BID 11/16/19 01/07/22 History oxyCODONE HCL [oxyCODONE HCL (IR)] 15 mg PO Q8H 03/01/20 01/07/22 History Aspirin 81 mg PO DAILY #30 chew 04/10/20 01/07/22 Rx Apixaban [Eliquis] 5 mg PO BID #60 tab 10/02/20 01/07/22 Rx Atorvastatin [Lipitor] 40 mg PO HS 01/31/21 01/07/22 History metFORMIN HCL [Glucophage] 1,000 mg PO BID 01/31/21 01/07/22 History Albuterol Sulfate [Albuterol 2 puff INHALATION RT-QID PRN 05/08/21 01/07/22 History Sulfate Hfa] Gabapentin 600 mg PO TID 09/11/21 01/07/22 History Insulin Glargine,Hum.rec.anlog 25 unit SQ HS 09/11/21 01/07/22 History [Basaglar Kwikpen U-100] Pantoprazole Sodium [Protonix] 40 mg PO DAILY 09/11/21 01/07/22 History fentaNYL 100MCG/HR PATCH 1 patch TRANSDERM Q72H 09/11/21 01/07/22 History [Duragesic 100MCG/HR] methocarbamoL [Robaxin-750] 750 mg PO TID 09/11/21 01/07/22 History Amiodarone [Cordarone] 100 mg PO DAILY #30 tab 09/16/21 01/07/22 Rx Sacubitril/Valsartan [Entresto 49 1 tab PO DAILY 10/11/21 01/07/22 History mg-51 mg Tablet] Insulin Aspart [NovoLOG Flexpen] 10 units SQ AC-BID 01/03/22 01/07/22 History Metoprolol Succinate (ER) [Toprol 100 mg PO DAILY 01/03/22 01/07/22 History XL] Mirtazapine 15 mg PO HS 01/03/22 01/07/22 History Furosemide [Lasix] 40 mg PO BID@0900,1600 #60 tab 01/05/22 01/07/22 Rx Spironolactone [Aldactone] 25 mg PO DAILY #30 tab 01/05/22 01/07/22 Rx Allergies Allergy/AdvReac Type Severity Reaction Status Date / Time No Known Allergies Allergy Verified 01/07/22 12:41 Physical Exam Vitals: Vital Signs Temp Pulse Pulse Pulse Pulse Resp BP 01/08/22 12:00 99.6 F 85 25 H 01/08/22 11:35 84 01/08/22 11:21 80 01/08/22 11:19 01/08/22 08:51 78 01/08/22 08:43 76 01/08/22 08:35 99.6 F 82 82 24 01/08/22 08:30 01/08/22 04:30 99.3 F 01/08/22 04:08 82 01/08/22 04:00 101.4 F H 81 16 01/08/22 03:43 99 01/08/22 03:41 01/08/22 02:00 79 91 01/07/22 23:24 97.6 F 91 16 01/07/22 23:16 92 01/07/22 22:47 01/07/22 22:46 92 01/07/22 20:47 179/86 01/07/22 20:00 30 H 01/07/22 19:40 15 01/07/22 19:39 79 01/07/22 19:37 61 15 01/07/22 15:00 68 8 L 153/115 01/07/22 14:50 67 7 L 153/115 01/07/22 14:40 67 10 L 153/115 01/07/22 14:30 67 12 147/103 01/07/22 14:20 66 8 L 147/103 01/07/22 14:10 68 7 L 147/103 01/07/22 14:07 70 01/07/22 14:00 68 7 L 151/77 01/07/22 13:53 68 01/07/22 13:50 67 5 L 151/77 01/07/22 13:40 66 10 L 151/77 01/07/22 13:30 68 9 L 147/104 01/07/22 13:20 70 10 L 147/104 01/07/22 13:10 70 147/104 01/07/22 13:00 74 14 166/102 01/07/22 12:30 76 13 167/106 BP BP Pulse Ox FiO2 01/08/22 12:00 132/65 99 50 01/08/22 11:35 01/08/22 11:21 01/08/22 11:19 50 01/08/22 08:51 01/08/22 08:43 01/08/22 08:35 168/83 99 50 01/08/22 08:30 50 01/08/22 04:30 01/08/22 04:08 01/08/22 04:00 170/77 98 01/08/22 03:43 01/08/22 03:41 50 01/08/22 02:00 01/07/22 23:24 155/80 100 01/07/22 23:16 01/07/22 22:47 60 01/07/22 22:46 01/07/22 20:47 01/07/22 20:00 98 01/07/22 19:40 80/57 01/07/22 19:39 98/56 01/07/22 19:37 90/71 01/07/22 15:00 100 01/07/22 14:50 100 01/07/22 14:40 100 01/07/22 14:30 100 01/07/22 14:20 100 01/07/22 14:10 96 01/07/22 14:07 01/07/22 14:00 100 01/07/22 13:53 01/07/22 13:50 100 01/07/22 13:40 93 L 01/07/22 13:30 93 L 01/07/22 13:20 100 01/07/22 13:10 01/07/22 13:00 94 L 01/07/22 12:30 100 Intake and Output 01/07/22 01/08/22 01/08/22 22:59 06:59 14:59 Output Total 400 1450 Balance -400 -1450 Output: Urine 400 1450 Other: Voiding Method Diaper Indwelling Catheter Indwelling Catheter External Catheter Weight 76.657 kg 68.5 kg GENERAL EXAM: Alert, very pleasant, 64-year-old male on room air, with pulse ox of 96% comfortable on BIPAP HEAD: Normocephalic/atraumatic. EYES: Normal reaction of pupils, equal size. Conjunctiva pink, sclera white. NOSE: Clear with pink turbinates. THROAT: No erythema or exudates. NECK: No masses, no JVD, no thyroid enlargement, no adenopathy. CHEST: No chest wall deformity. Symmetrical expansion. Midsternal incision well approximated, with some drainage at the distal and which is mostly serous in nature, chest tube sites clean dry and intact LUNGS: Equal air entry with no crackles, wheeze, rhonchi or dullness. CVS: Regular rate and rhythm, normal S1 and S2, no gallops, no murmurs, no rubs ABDOMEN: Soft, nontender. No hepatosplenomegaly, normal bowel sounds, no guarding or rigidity. EXTREMITIES: No clubbing, no edema, no cyanosis, 2+ pulses and upper and lower extremities. MUSCULOSKELETAL: Muscle strength and tone normal. SPINE: No scoliosis or deformity SKIN: No rashes CENTRAL NERVOUS SYSTEM: Alert and oriented -3. No focal deficits, tone is normal in all 4 extremities. PSYCHIATRIC: Alert and oriented -3. Appropriate affect. Intact judgment and insight. Results - Laboratory Findings CBC and BMP: 01/08/22 11:21 01/08/22 11:21 ABG ABG pH 7.48 (7.35-7.45) H 01/08/22 09:23 ABG pCO2 47 mmHg (35-45) H 01/08/22 09:23 ABG pO2 91 mmHg (83-108) 01/08/22 09:23 ABG O2 Saturation 95.4 % (94-97) 01/08/22 09:23 PT/INR, D-dimer PT 12.3 sec (9.0-12.0) H 01/07/22 11:16 INR 1.2 (<1.2) H 01/07/22 11:16 Abnormal lab findings: Abnormal Labs 01/07/22 01/07/22 01/07/22 11:16 11:16 11:16 WBC RBC 3.49 L Hgb 9.6 L Hct 31.1 L MCHC 30.9 L RDW 16.2 H Neutrophils # 8.6 H Lymphocytes # 0.8 L PT 12.3 H INR 1.2 H ABG pH ABG pCO2 ABG HCO3 ABG Total CO2 BUN 35 H Creatinine 1.36 H Glucose 241 H POC Glucose (mg/dL) Hemoglobin A1c Alkaline Phosphatase 236 H 01/07/22 01/07/22 01/07/22 11:16 21:20 22:47 WBC RBC Hgb Hct MCHC RDW Neutrophils # Lymphocytes # PT INR ABG pH ABG pCO2 ABG HCO3 ABG Total CO2 BUN Creatinine Glucose POC Glucose (mg/dL) 259 H 262 H Hemoglobin A1c 8.2 H Alkaline Phosphatase 01/07/22 01/07/22 01/07/22 22:56 22:58 22:58 WBC 10.8 H RBC 4.02 L Hgb 11.3 L Hct 36.3 L MCHC RDW 15.9 H Neutrophils # 9.7 H Lymphocytes # 0.3 L PT INR ABG pH ABG pCO2 ABG HCO3 29 H ABG Total CO2 31 H BUN 39 H Creatinine 1.39 H Glucose 275 H POC Glucose (mg/dL) Hemoglobin A1c Alkaline Phosphatase 01/08/22 01/08/22 01/08/22 06:53 09:23 11:21 WBC 10.7 H RBC 3.49 L Hgb 9.7 L D Hct 31.0 L MCHC RDW 16.3 H Neutrophils # Lymphocytes # PT INR ABG pH 7.48 H ABG pCO2 47 H ABG HCO3 36 H ABG Total CO2 37 H BUN Creatinine Glucose POC Glucose (mg/dL) 182 H Hemoglobin A1c Alkaline Phosphatase 01/08/22 11:54 WBC RBC Hgb Hct MCHC RDW Neutrophils # Lymphocytes # PT INR ABG pH ABG pCO2 ABG HCO3 ABG Total CO2 BUN Creatinine Glucose POC Glucose (mg/dL) 187 H Hemoglobin A1c Alkaline Phosphatase - Diagnostic Findings Chest x-ray: image reviewed Assessment and Plan Plan: Acute on chronic congestive heart failure with secondary shortness of breath and acute hypoxic respiratory failure. This is a readmission within 48 hours. The patient is currently on a BiPAP pressure of 14/6 cm of water FIO2 50%. He is quite comfortable. He is being diuresed for now. No clear indication for an underlying pneumonia. The patient has elevated proBNP level consistent with CHF. Coronary artery disease with previous bypass surgery and multiple coronary interventions. Paroxysmal atrial fibrillation, he is currently in a sinus rhythm with a first- degree AV block. He remains on long-term and coagulation with Eliquis Ischemic cardiomyopathy, EF 30-35% diabetes hypertension hyperlipidemia altered mental status, utilizing a combination of narcotics on an outpatient basis. Chronic pain with a combination of fentanyl patch and oxycodone Left ankle fracture, wearing a splint Plan Management mental status gradually improving, could be related to metabolic factors in addition to drugs and the patient was taken off the fentanyl patch. Continue BiPAP therapy for now the same level of pressures which is 14/6 with FiO2 of 50% Continue IV Lasix Continue diuretics including Aldactone The antibiotic coverage is empiric. I do not see any signs of an infection. Check a pro-calcitonin level and the patient has been told with IV Zosyn Continue bronchodilators Continue steroids He is a DNR/DNI CODE STATUS Poor prognosis. He may be able to get off BiPAP at the later stage, probably over the next 12-24 hours.
[2022-01-08 16:43] LABS: Glucose,Whole Blood 195 mg/dL (70-110)
--- NOTE | 2022-01-08 17:37 | CT ---
EXAMINATION TYPE: CT brain wo con DATE OF EXAM: 01/08/2022 COMPARISON: 05/09/2021 HISTORY: ams CT DLP: 1188.4 mGycm Automated exposure control for dose reduction was used. Images of the brain obtained with no contrast. There is cerebral cortical atrophy. There is no mass effect or midline shift. No sign of intracranial hemorrhage. The calvarium is intact. Skull base is intact. There is normal aeration of the mastoid s inuses. IMPRESSION: Mild atrophy. No acute intracranial abnormality. No change.
[2022-01-08] MEDS: ASPIRIN 81 MG PO SCH (19:25)
[2022-01-08] MEDS: AMIODARONE 100 MG TAB PO SCH (19:25)
[2022-01-08] MEDS: METOPROLOL SUCCINATE (ER) 100 MG TAB.ER.24H PO SCH (19:26)
[2022-01-08] MEDS: SPIRONOLACTONE 25 MG TAB PO SCH (19:26)
[2022-01-08 20:11] LABS: Glucose,Whole Blood 242 mg/dL (70-110)
[2022-01-08] MEDS: INSULIN DETEMIR (LEVEMIR) 100 UNIT/ML SYR SQ SCH (23:07)
[2022-01-09] MEDS: PIPERACILLIN-TAZOBACTAM 3.375 GM in SODIUM CHLORIDE 0.9% 100 ML IVPB SCH ×4 (00:25→22:36)
[2022-01-09] MEDS: methylPREDNISolone SOD SUCCI 125 MG/2 ML VIAL IV SCH ×4 (01:19→22:36)
[2022-01-09] MEDS ORDERED: DEXTROSE 5% IN WATER 100 ML with AMIODARONE 150 MG IV ONE ×2 (02:23→02:45)
[2022-01-09] MEDS ORDERED: AMIODARONE 360 MG in DEXTROSE 5% IN WATER 200 ML IV ONE ×2 (03:00)
[2022-01-09] MEDS: DILTIAZEM 125 MG in SODIUM CHLORIDE 0.9% 100 ML IV SCH (05:05)
[2022-01-09] MEDS: LORazepam 1 MG/0.5 ML VIAL IV PRN ×3 (05:30→17:50)
[2022-01-09 06:21] LABS: Glucose,Whole Blood 354 mg/dL (70-110)
[2022-01-09] MEDS: INSULIN ASPART (NovoLOG) 100 UNIT/ML VIAL SQ SCH ×4 (06:25→20:57)
[2022-01-09] MEDS: IPRATROPIUM-ALBUTEROL 3 ML NEB INHALATION SCH ×5 (08:10→19:38)
--- NOTE | 2022-01-09 08:46 | P.CNNES ---
History of Present Illness Consult date: 01/09/22 Requesting physician: Puma Lovell Reason for Consult: stroke symptoms that began on 01/07 History of Present Illness: This is a 66-year-old gentleman with history of atrial fibrillation on eliquis, diabetes mellitus, hypertension, immune, severe ischemic cardiomyopathy, coronary artery disease s/p stent, CABG who presented to the emergency department on 01/07/2022 because of increased dyspnea cough. Neurology is co nsulted for possible stroke. Some of the history is obtained from patient's daughter who is at [facility] and medical record. His daughter felt that around 01/07/2022 the patient was confused and was slurring his speech and concerned about a stroke. She feels his mentation is drastically improved compared to presentation. It seems he had a recent fall. Denies history of seizures or stroke in the past. She stated that his symptoms of confusion could have happened late on 01/06/2022. Denies of headache, focal weakness, numbness any further slurring speech. He is on multiple medications including eliquis, ASA, lipitor 40mg qhs. He was recently taken off fentalyl patch. He is oxycodone, Gabapentin 600mg 1 tab tid. He was Some other workup during this hospital visit consisted of: During this hospital visit the patient had been to fever episodes T-max of 101.4 on 01/08 During this hospital visit the white blood cell on presentation was 10.5 thousand which is within normal limits then her his highest white blood cells 10.8 thousand slightly neutrophilic. Hemoglobin A1c is 8.2. His creatinine is 1.36 and trending up to 1.46. His x-ray is reported as mild venous congestion or interstitial pneumonitis. CT head is reported as mild atrophy. No acute intracranial abnormality. No change. I personally reviewed this the head and I don't appreciate any acute subacute ischemia there is no typical hemorrhage. Review of Systems Review of system: The 12 point system was reviewed and apparent positive and negative per HPI. Past Medical History Past Medical History: Atrial Fibrillation, Coronary Artery Disease (CAD), Chest Pain / Angina, Heart Failure, Diabetes Mellitus, GERD/Reflux, Hyperlipidemia, Hypertension, Myocardial Infarction (IN) Additional Past Medical History / Comment(s): Pt recently admitted to [facility] on 09/13/21 with acute on chronic chf, here 01/03/22 htn, pulm edema, acute hypoxic respiratory failure and elevated LFTs. Other hx: IDDM type II, ischemic cardiomyopathy, chronic low back and bilateral leg pain, past R scrotal abscess/sepsis. CHF Last Myocardial Infarction Date:: 03/20/15 History of Any Multi-Drug Resistant Organisms: None Reported Past Surgical History: Back Surgery, Coronary Bypass/CABG, Heart Catheterization, Heart Catheterization With Stent, Orthopedic Surgery Additional Past Surgical History / Comment(s): 08/23/2019 CABG 3 vessels, PCI with total of 5 stents, L ankle ligament repair, R leg ORIF, low back surgery, colonoscopy. Past Anesthesia/Blood Transfusion Reactions: No Reported Reaction Additional Past Anesthesia/Blood Transfusion Reaction / Comment(s): Pt has rece ived blood in past without reaction. Date of Last Stent Placement:: 02/2015 Past Psychological History: No Psychological Hx Reported Additional Psychological History / Comment(s): Pt resides with his sister. He has a cane to ambulate and has a glucometer. He has had home care thru [facility]. Smoking Status: Former smoker Past Alcohol Use History: None Reported Additional Past Alcohol Use History / Comment(s): Pt started smoking in 1968 and quit in 2014. He was a 2 ppd smoker. Pt states he was a heavy drinker but quit in 2001. Past Drug Use History: Marijuana Additional Drug Use History / Comment(s): Occasional marijuana. - Past Family History Sister(s) Family Medical History: Coronary Artery Disease (CAD), Hypertension Father Family Medical History: Coronary Artery Disease (CAD), Diabetes Mellitus, Deep Vein Thrombosis (DVT), Hypertension Additional Family Medical History / Comment(s): Father at age 58yrs. He of blood clot from leg injury that went to his heart. Medications and Allergies Home Medications Medication Instructions Recorded Confirmed Type DULoxetine HCL [Cymbalta] 60 mg PO BID 11/16/19 01/07/22 History oxyCODONE HCL [oxyCODONE HCL (IR)] 15 mg PO Q8H 03/01/20 01/07/22 History Aspirin 81 mg PO DAILY #30 chew 04/10/20 01/07/22 Rx Apixaban [Eliquis] 5 mg PO BID #60 tab 10/02/20 01/07/22 Rx Atorvastatin [Lipitor] 40 mg PO HS 01/31/21 01/07/22 History metFORMIN HCL [Glucophage] 1,000 mg PO BID 01/31/21 01/07/22 History Albuterol Sulfate [Albuterol 2 puff INHALATION RT-QID PRN 05/08/21 01/07/22 History Sulfate Hfa] Gabapentin 600 mg PO TID 09/11/21 01/07/22 History Insulin Glargine,Hum.rec.anlog 25 unit SQ HS 09/11/21 01/07/22 History [Basaglar Kwikpen U-100] Pantoprazole Sodium [Protonix] 40 mg PO DAILY 09/11/21 01/07/22 History fentaNYL 100MCG/HR PATCH 1 patch TRANSDERM Q72H 09/11/21 01/07/22 History [Duragesic 100MCG/HR] methocarbamoL [Robaxin-750] 750 mg PO TID 09/11/21 01/07/22 History Amiodarone [Cordarone] 100 mg PO DAILY #30 tab 09/16/21 01/07/22 Rx Sacubitril/Valsartan [Entresto 49 1 tab PO DAILY 10/11/21 01/07/22 History mg-51 mg Tablet] Insulin Aspart [NovoLOG Flexpen] 10 units SQ AC-BID 01/03/22 01/07/22 History Metoprolol Succinate (ER) [Toprol 100 mg PO DAILY 01/03/22 01/07/22 History XL] Mirtazapine 15 mg PO HS 01/03/22 01/07/22 History Furosemide [Lasix] 40 mg PO BID@0900,1600 #60 tab 01/05/22 01/07/22 Rx Spironolactone [Aldactone] 25 mg PO DAILY #30 tab 01/05/22 01/07/22 Rx Allergies Allergy/AdvReac Type Severity Reaction Status Date / Time No Known Allergies Allergy Verified 01/07/22 12:41 Physical Examination - Vital Signs Vital Signs: Vital Signs Temp Pulse Pulse Pulse Pulse Resp BP 01/09/22 08:20 115 H 01/09/22 08:10 111 H 01/09/22 06:48 169 H 130/97 01/09/22 06:27 169 H 168/96 01/09/22 05:55 167 H 137/97 01/09/22 05:14 178 H 01/09/22 05:00 190 H 156/111 01/09/22 03:20 97.1 F L 133 H 14 116/83 01/09/22 02:06 136 H 151/81 01/09/22 00:00 99.3 F 95 12 158/80 01/08/22 23:04 01/08/22 20:26 01/08/22 20:00 99.3 F 95 12 161/74 01/08/22 16:00 100.8 F H 100 22 166/79 01/08/22 15:35 01/08/22 15:31 98 01/08/22 15:15 97 01/08/22 12:00 99.6 F 85 25 H 132/65 01/08/22 11:35 84 01/08/22 11:21 80 01/08/22 11:19 01/08/22 08:51 78 01/08/22 08:43 76 01/08/22 08:35 99.6 F 82 82 24 168/83 01/08/22 08:30 Pulse Ox FiO2 01/09/22 08:20 01/09/22 08:10 96 01/09/22 06:48 01/09/22 06:27 01/09/22 05:55 01/09/22 05:14 01/09/22 05:00 01/09/22 03:20 01/09/22 02:06 01/09/22 00:00 95 01/08/22 23:04 97 01/08/22 20:26 99 01/08/22 20:00 97 01/08/22 16:00 99 50 01/08/22 15:35 97 01/08/22 15:31 01/08/22 15:15 01/08/22 12:00 99 50 01/08/22 11:35 01/08/22 11:21 01/08/22 11:19 50 01/08/22 08:51 01/08/22 08:43 01/08/22 08:35 99 50 01/08/22 08:30 50 Intake and Output 01/08/22 01/09/22 01/09/22 22:59 06:59 14:59 Output Total 825 2700 Balance -825 -2700 Output: Urine 825 2700 Other: Voiding Method Indwelling Catheter Indwelling Catheter Weight 74.5 kg GENERAL: The patient is lying in bed and is not in acute distress. CHEST: The heart rate is regular rate rhythm. No murmurs to auscultation. LUNG: Clear to auscultation bilaterally no wheezing noted throughout. Not labored breathing. ABDOMEN/GI: Bowel sounds present in all 4 quadrants. No tenderness to palpation throughout. NEUROLOGICAL: Higher mental function: The patient is drowsy but is aweakable. Is oriented to self and place. He stated the year is 2019 and did not know the month. He was able to name objects correctly (pen and watch). Was able to name his daughter's name. Patient is following simple commands. No aphasia and no neglect. Cranial nerves: The pupils are round, equal and reactive to light and accommodation. Visual george are full to confrontation throughout. Extraocular movement is intact no nystagmus is noted. Facial sensation is normal to touch throughout. The facial strength is normal throughout. Hearing is mildly decrease bilaterally to hand rub. Tongue is midline and moved [id number] without any difficulty. No dysarthria is noted. Shoulder shrug is normal bilaterally. Motor: The strength is 5 over 5 throughout uppers. Right lower is 5/5. Left lower is limited because of left ankle fracture. Normal tone and bulk. Cerebellum: Normal finger to nose heel to laboy bilaterally. Sensation: Sensation is normal to touch throughout. Reflexes (right/left): 1+ throughout. Plantars are mute bilaterally. Results - Laboratory Findings CBC and BMP: 01/09/22 09:26 01/09/22 09:26 Abnormal Lab Findings: Abnormal Labs 01/07/22 01/07/22 01/07/22 11:16 11:16 11:16 WBC RBC 3.49 L Hgb 9.6 L Hct 31.1 L MCHC 30.9 L RDW 16.2 H Neutrophils # 8.6 H Lymphocytes # 0.8 L PT 12.3 H INR 1.2 H ABG pH ABG pCO2 ABG HCO3 ABG Total CO2 Sodium Carbon Dioxide BUN 35 H Creatinine 1.36 H Glucose 241 H POC Glucose (mg/dL) Hemoglobin A1c Calcium Alkaline Phosphatase 236 H Procalcitonin 01/07/22 01/07/22 01/07/22 11:16 21:20 22:47 WBC RBC Hgb Hct MCHC RDW Neutrophils # Lymphocytes # PT INR ABG pH ABG pCO2 ABG HCO3 ABG Total CO2 Sodium Carbon Dioxide BUN Creatinine Glucose POC Glucose (mg/dL) 259 H 262 H Hemoglobin A1c 8.2 H Calcium Alkaline Phosphatase Procalcitonin 01/07/22 01/07/22 01/07/22 22:56 22:58 22:58 WBC 10.8 H RBC 4.02 L Hgb 11.3 L Hct 36.3 L MCHC RDW 15.9 H Neutrophils # 9.7 H Lymphocytes # 0.3 L PT INR ABG pH ABG pCO2 ABG HCO3 29 H ABG Total CO2 31 H Sodium Carbon Dioxide BUN 39 H Creatinine 1.39 H Glucose 275 H POC Glucose (mg/dL) Hemoglobin A1c Calcium Alkaline Phosphatase Procalcitonin 01/08/22 01/08/22 01/08/22 06:53 09:23 09:23 WBC RBC Hgb Hct MCHC RDW Neutrophils # Lymphocytes # PT INR ABG pH 7.48 H ABG pCO2 47 H ABG HCO3 36 H ABG Total CO2 37 H Sodium Carbon Dioxide BUN Creatinine Glucose POC Glucose (mg/dL) 182 H Hemoglobin A1c Calcium Alkaline Phosphatase Procalcitonin 5.71 H 01/08/22 01/08/22 01/08/22 11:21 11:21 11:54 WBC 10.7 H RBC 3.49 L Hgb 9.7 L D Hct 31.0 L MCHC RDW 16.3 H Neutrophils # Lymphocytes # PT INR ABG pH ABG pCO2 ABG HCO3 ABG Total CO2 Sodium 146 H Carbon Dioxide 33 H BUN 44 H Creatinine 1.46 H Glucose 167 H POC Glucose (mg/dL) 187 H Hemoglobin A1c Calcium 8.2 L Alkaline Phosphatase Procalcitonin 01/08/22 01/08/22 01/09/22 16:41 20:09 06:19 WBC RBC Hgb Hct MCHC RDW Neutrophils # Lymphocytes # PT INR ABG pH ABG pCO2 ABG HCO3 ABG Total CO2 Sodium Carbon Dioxide BUN Creatinine Glucose POC Glucose (mg/dL) 195 H 242 H 354 H Hemoglobin A1c Calcium Alkaline Phosphatase Procalcitonin Assessment and Plan Assessment: Altered mental status due to multifactorial one of him as metabolic, also due narcotic use/polypharmacy. He has two episode of low grade fever and unsure cause of fever (unlikely meningoencephalitis)---mentation improving. Transient episode of dysarthria on 01/07 or even possibly late 01/06: Rule out stroke/TIA versus due to his encephalopathy. Dyspnea due congestive heart failure Left ankle fracture History of atrial fibrillation on eliquis Diabetes mellitus Hypertension severe ischemic cardiomyopathy History of coronary artery disease s/p stent and history of CABG Polypharmacy Plan: I ordered a routine EEG to rule out seizure and epileptiform discharge. Ordered MRI Brain w/o to rule out stroke because of episodes of confusion and transient dysarthria. If he has acute or subacute stroke then will get rest of stroke work-up. Currently on eliquis for a-fib. Also on ASA 81mg daily (both home dose). Ordered TSH, vitamin B12, folate, ammonia level. Recommend further evaluation of fever and unknown source and patient has further episodes fever recommend consideration of lumbar puncture. Cardiology is on board. Pulmonary is on board. Will defer the rest of medical management to the primary team. The plan is discussed with patient and his daughter who is at bedside. Thank you for the consultation. Time with Patient: Greater than 30
--- NOTE | 2022-01-09 09:25 | US ---
EXAMINATION TYPE: US carotid duplex BILAT DATE OF EXAM: 01/09/2022 COMPARISON: 2019 CLINICAL HISTORY: stroke. TECHNIQUE: Carotid duplex ultrasound examination. Indirect Doppler criteria was utilized. Exam started on left side then did right side due to patient position FINDINGS: EXAM MEASUREMENTS: RIGHT: Peak Systolic Velocity (PSV) cm/sec ----- Right CCA: 45.9 ----- Right ICA: 68.8 ----- Right ECA: 121.3 ICA/CCA ratio: 1.5 RIGHT: End Diastole cm/sec ----- Right CCA: 8.4 ----- Right ICA: 24.8 ----- Right ECA: 11.3 LEFT: Peak Systolic Velocity (PSV) cm/sec ----- Left CCA: 82.7 ----- Left ICA: 76.4 ----- Left ECA: 64.3 ICA/CCA ratio: 0.9 LEFT: End Diastole cm/sec ----- Left CCA: 12.8 ----- Left ICA: 18.8 ----- Left ECA: 5.6 VERTEBRALS (direction of flow): Right Vertebral: Antegrade Left Vertebral: Antegrade Rhythm: Arrhythmia No significant stenosis IMPRESSION: Atherosclerotic plaque with no significant hemodynamic stenosis by carotid Doppler ultrasound Criteria for Assigning % of Stenosis / Diameter reduction (Estimation based on the indirect measurements of the internal carotid artery velocities (ICA PSV). 1. Normal (no stenosis)=ICA PSV < 125 cm/s: ratio < 2.0: ICA EDV<40 cm/s. 2. Less than 50% stenosis=ICA PSV < 125 cm/s: ratio < 2.0: ICA EDV<40 cm/s. 3. 50 to 69% stenosis=ICA PSV of 125 to 230 cm/s: ration 2.0 ? 4.0: ICA EDV 40-100 cm/s. 4. Greater than 70% stenosis to near occlusion= ICA PSV > 230 cm/s: ratio > 4.0: ICA EDV > 100 cm/s. 5. Near occlusion= ICA PSV velocities may be low or undetectable: variable ratio and ICA EDV. 6. Total occlusion=unable to detect flow.
[2022-01-09] MEDS: PANTOPRAZOLE 40 MG/10 ML VIAL IVP SCH (09:34)
[2022-01-09] MEDS: APIXABAN 5 MG TAB PO SCH ×2 (09:35→20:59)
[2022-01-09] MEDS: SPIRONOLACTONE 25 MG TAB PO SCH (09:35)
[2022-01-09] MEDS: AMIODARONE 450 MG in DEXTROSE 5% IN WATER 250 ML IV SCH ×2 (09:35)
[2022-01-09] MEDS: DULoxetine HCL 60 MG CAPSULE.DR PO SCH ×2 (09:35→20:58)
[2022-01-09] MEDS: ASPIRIN 81 MG PO SCH (09:35)
[2022-01-09] MEDS: FUROSEMIDE 10 MG/ML 4 ML VIAL IV SCH ×2 (09:35→20:59)
[2022-01-09 09:37] LABS: Anisocytosis Slight; Basophils % (A) 0 %; Eosinophils # (A) 0.1 k/uL (0-0.7); Eosinophils % (A) 1 %; HCT 35.1 % (39.0-53.0); HGB 10.6 gm/dL (13.0-17.5); Hypochromasia Marked; Lymphocytes # (A) 0.2 k/uL (1.0-4.8); Lymphocytes % (A) 2 %; MCH 27.4 pg (25.0-35.0); MCHC 30.2 g/dL (31.0-37.0); MCV 90.7 fL (80.0-100.0); Mean Platelet Volume 7.6; Monocytes # (A) 0.9 k/uL (0-1.0); Monocytes % (A) 7 %; Neutrophils # (A) 10.8 k/uL (1.3-7.7); Neutrophils % (A) 89 %; Platelet Count 292 k/uL (150-450); RBC 3.87 m/uL (4.30-5.90); WBC 12.2 k/uL (3.8-10.6)
[2022-01-09 10:04] LABS: Calcium 8.5 mg/dL (8.4-10.2); Potassium 2.9 mmol/L (3.5-5.1)
[2022-01-09 11:28] LABS: T4, Free (Free Thyroxine) 2.66 ng/dL (0.78-2.19)
--- NOTE | 2022-01-09 11:39 | P.PN ---
Subjective Progress Note Date: 01/09/22 The patient is a 66-year-old male with multiple comorbid conditions, who is currently admitted to the hospital with mental status changes and congestive heart failure exacerbation. The patient was obtunded on arrival. He was given Narcan, but remained lethargic and disoriented over the last 24 hours. Ov ernight the patient did develop A. fib with RVR and was subsequently started on both an amiodarone drip as well as a Cardizem drip. The patient is more alert this morning at the time of her examination. He denies any chest pain. GENERAL: Well-appearing, well-nourished and in no acute distress. NECK: Supple without JVD or thyromegaly. LUNGS: Breath sounds rhonchorous to auscultation bilaterally. Respiration equal and unlabored. No wheezes. HEART: Irregular rate and rhythm without murmurs, rubs or gallops. S1 and S2 heard. EXTREMITIES: Normal range of motion, no edema. No clubbing or cyanosis. Peripheral pulses intact and strong. VITALS: Blood pressure 130/97 pulse 150, SpO2 96% on 8 L nasal cannula TELEMETRY: A. fib with RVR LABS: WAC 12.2, hemoglobin 10.6, hematocrit 35.1, platelet 292, sodium 145, potassium 2.9, BUN 33, creatinine 1.13, TSH 0.2 IMPRESSION: Acute on chronic congestive heart failure Mental status changes, secondary to opioid abuse Paroxysmal atrial fibrillation, currently in A. fib with RVR Ischemic cardiomyopathy, last EF 30-35% Suppressed TSH, likely secondary to amiodarone History of CAD History of diabetes History of hypertension history of dyslipidemia PLAN: Discontinue amiodarone drip Continue to wean the patient on a Cardizem drip Maximize beta blockers for rate control Resume Entresto for hypertension Further recommendations based on clinical course I am dictating on behalf of Dr Travis Caban's history/physical and assessment/plan. Objective - Vital Signs Vital signs: Vital Signs Temp 97.1 F L 01/09/22 03:20 Pulse 115 H 01/09/22 08:20 Resp 14 01/09/22 03:20 BP 130/97 01/09/22 06:48 Pulse Ox 96 01/09/22 08:10 FiO2 50 01/08/22 16:00 Intake & Output 01/08/22 01/09/22 01/09/22 18:59 06:59 18:59 Output Total 2387 5412 Balance -2775 -2709 Weight 74.5 kg Output: Urine 3208 9262 Other: Voiding Method Indwelling Catheter Indwelling Catheter - Labs CBC & Chem 7: 01/09/22 09:26 01/09/22 09:26 Labs: Abnormal Lab Results - Last 24 Hours (Table) 01/08/22 01/08/22 01/08/22 Range/Units 09:23 11:21 11:21 WBC 10.7 H (3.8-10.6) k/uL RBC 3.49 L (4.30-5.90) m/uL Hgb 9.7 L D (13.0-17.5) gm/dL Hct 31.0 L (39.0-53.0) % MCHC (31.0-37.0) g/dL RDW 16.3 H (11.5-15.5) % Neutrophils # (1.3-7.7) k/uL Lymphocytes # (1.0-4.8) k/uL Sodium 146 H (137-145) mmol/L Potassium (3.5-5.1) mmol/L Carbon Dioxide 33 H (22-30) mmol/L BUN 44 H (9-20) mg/dL Creatinine 1.46 H (0.66-1.25) mg/dL Glucose 167 H (74-99) mg/dL POC Glucose (mg/dL) (70-110) mg/dL Calcium 8.2 L (8.4-10.2) mg/dL Procalcitonin 5.71 H (0.02-0.09) ng/mL TSH (0.465-4.680) mIU/L Free T4 (0.78-2.19) ng/dL 01/08/22 01/08/22 01/08/22 Range/Units 11:54 16:41 20:09 WBC (3.8-10.6) k/uL RBC (4.30-5.90) m/uL Hgb (13.0-17.5) gm/dL Hct (39.0-53.0) % MCHC (31.0-37.0) g/dL RDW (11.5-15.5) % Neutrophils # (1.3-7.7) k/uL Lymphocytes # (1.0-4.8) k/uL Sodium (137-145) mmol/L Potassium (3.5-5.1) mmol/L Carbon Dioxide (22-30) mmol/L BUN (9-20) mg/dL Creatinine (0.66-1.25) mg/dL Glucose (74-99) mg/dL POC Glucose (mg/dL) 187 H 195 H 242 H (70-110) mg/dL Calcium (8.4-10.2) mg/dL Procalcitonin (0.02-0.09) ng/mL TSH (0.465-4.680) mIU/L Free T4 (0.78-2.19) ng/dL 01/09/22 01/09/22 01/09/22 Range/Units 06:19 09:26 09:26 WBC 12.2 H (3.8-10.6) k/uL RBC 3.87 L (4.30-5.90) m/uL Hgb 10.6 L (13.0-17.5) gm/dL Hct 35.1 L (39.0-53.0) % MCHC 30.2 L (31.0-37.0) g/dL RDW 16.0 H (11.5-15.5) % Neutrophils # 10.8 H (1.3-7.7) k/uL Lymphocytes # 0.2 L (1.0-4.8) k/uL Sodium (137-145) mmol/L Potassium 2.9 L (3.5-5.1) mmol/L Carbon Dioxide 32 H (22-30) mmol/L BUN 33 H (9-20) mg/dL Creatinine (0.66-1.25) mg/dL Glucose 390 H (74-99) mg/dL POC Glucose (mg/dL) 354 H (70-110) mg/dL Calcium (8.4-10.2) mg/dL Procalcitonin (0.02-0.09) ng/mL TSH (0.465-4.680) mIU/L Free T4 (0.78-2.19) ng/dL 01/09/22 Range/Units 09:26 WBC (3.8-10.6) k/uL RBC (4.30-5.90) m/uL Hgb (13.0-17.5) gm/dL Hct (39.0-53.0) % MCHC (31.0-37.0) g/dL RDW (11.5-15.5) % Neutrophils # (1.3-7.7) k/uL Lymphocytes # (1.0-4.8) k/uL Sodium (137-145) mmol/L Potassium (3.5-5.1) mmol/L Carbon Dioxide (22-30) mmol/L BUN (9-20) mg/dL Creatinine (0.66-1.25) mg/dL Glucose (74-99) mg/dL POC Glucose (mg/dL) (70-110) mg/dL Calcium (8.4-10.2) mg/dL Procalcitonin (0.02-0.09) ng/mL TSH 0.280 L (0.465-4.680) mIU/L Free T4 2.66 H (0.78-2.19) ng/dL
[2022-01-09 11:42] LABS: Glucose,Whole Blood 374 mg/dL (70-110)
[2022-01-09] MEDS ORDERED: METOPROLOL SUCCINATE (ER) 100 MG TAB.ER.24H PO STA (11:48)
[2022-01-09] MEDS: METOPROLOL SUCCINATE (ER) 100 MG TAB.ER.24H PO SCH ×2 (11:54→18:57)
[2022-01-09] MEDS: SACUBITRIL/VALSARTAN 24 MG-26 MG TABLET PO SCH ×2 (11:55→21:00)
[2022-01-09] MEDS: GABAPENTIN 300 MG CAP PO SCH (12:00)
--- NOTE | 2022-01-09 12:42 | P.PN ---
Subjective Progress Note Date: 01/09/22 This is a 66-year-old patient with known history of coronary artery disease, previous bypass surgery, history of severe cardiomyopathy ischemic in nature with an ejection fraction of 25% with multiple hospitalizations for complications related to his cardiac disease. His last echocardiogram from 09/12/2021 has shown an ejection fraction of 30-35% along with hypokinesis involving the inferobasilar basilar and inferior wall as well as the anteroseptal portion. The cardiac valves were intact. The patient is also known to have chronic active fibrillation, hypertension, diabetes mellitus type 2 and chronic kidney disease. The patient also has issues with chronic pain and chronic opiate use. He was discharged from the hospital on 01/05/2022 after being admitted for CHF exacerbation. The patient was discharged home with guarded prognosis. Cardiology cleared this patient discharged and accordingly was released home. He was discharged home on Lasix 40 units by mouth twice a day and Aldactone 25 mg by mouth as diuretics. The patient's was brought back to the hospital yesterday because of an altered mental status in the fall. He was very much lethargic and disoriented since his discharge. In the ED, the patient was given an EKG that showed a normal sinus mechanism. He had a first degree AV block. His chest x-ray showed some mild interstitial prominence. His proBNP level was quite elevated at 12,200. His white cell count was a complicated with a hemoglobin of 11.3 and a platelet count of 363. He has a BUN of 39 with a creatinine of 1.35 and a magnesium level of 1.7. He was given a blood gas because of worsening shortness of breath. The patient's initial blood gas showed a pH of 7.43 with a pCO2 of 45 and pO2 of 104 and this was on FiO2 of 100%. Subsequently, and a 50% FiO2 and blood gases from today showed a pH of 7.48 with a total 47 and pO2 of 91. A repeat chest x-ray from today shows improvement in the volume status. Patient's currently is on DuoNeb nebulizer treatments [id number], is on Lasix 40 mg IV every 12 hours. He is also on Aldactone 25 mg by mouth daily. He remains on amiodarone 100 mg by mouth daily. Long-term antibiotic irrigation was without a course. The patient is also on metoprolol 100 mg by mouth daily. His also diabetic on 10 units of Levemir insulin and a sliding scale coverage. As far as pain control, he takes oxycodone 50 mg every 8 hours, fentanyl patch 100 g every 72 hours and is also on Cymbalta 60 mg by mouth twice a day. Overnight, the patient was found to be hypoxic and short of breath. Immediately, he was placed on a BiPAP which is currently running at a setting of 14/6 cm of water with an FiO2 50%. I believe the blood gas was somewhat him on a BiPAP and the patient is adequately oxygenating and ventilating for now. 01/09/2022, the patient continues to be altered, lethargic, gets a little answer some simple questions. He remained nature fibrillation. At time of my evaluation, the patient was having a rapid ventricular response along with Atrovent fibrillation. His heart rate monitoring showed that the patient's heart rate has been persistently elevated above 100 as of this morning. He is currently on Cardizem drip at 5 mg an hour. He remains also metoprolol 100 mg by mouth twice a day. He was restarted back on Entresto results on Lasix 40 mg IV every 12 hours. His long-term antiplatelet issues with lupus. The patient is a negative fluid balance of 5.4 L over the past 24 hours. Is currently on 8 L of oxygen nasal cannula with a pulse ox of 96%. His moldable 4 extremities. At times restless and agitated. Objective - Vital Signs Vital signs: Vital Signs Temp 97.1 F L 01/09/22 03:20 Pulse 167 H 01/09/22 11:49 Resp 14 01/09/22 03:20 BP 130/97 01/09/22 06:48 Pulse Ox 96 01/09/22 08:10 FiO2 50 01/08/22 16:00 Intake & Output 01/08/22 01/09/22 01/09/22 18:59 06:59 18:59 Output Total 7809 2700 Balance -2775 -2700 Weight 74.5 kg Output: Urine 2352 2700 Other: Voiding Method Indwelling Catheter Indwelling Catheter - Exam GENERAL EXAM: Alert, very pleasant, 64-year-old male on room air, with pulse ox of 96% on 8 L of O2 nasal cannula HEAD: Normocephalic/atraumatic. EYES: Normal reaction of pupils, equal size. Conjunctiva pink, sclera white. NOSE: Clear with pink turbinates. THROAT: No erythema or exudates. NECK: No masses, no JVD, no thyroid enlargement, no adenopathy. CHEST: No chest wall deformity. Symmetrical expansion. Midsternal incision well approximated, with some drainage at the distal and which is mostly serous in nature, chest tube sites clean dry and intact LUNGS: Equal air entry with no crackles, wheeze, rhonchi or dullness. CVS: Irregular with rapid ventricular response consistent with atrial fibrillation, normal S1 and S2, no gallops, no murmurs, no rubs ABDOMEN: Soft, nontender. No hepatosplenomegaly, normal bowel sounds, no guarding or rigidity. EXTREMITIES: No clubbing, no edema, no cyanosis, 2+ pulses and upper and lower extremities. MUSCULOSKELETAL: Muscle strength and tone normal. SPINE: No scoliosis or deformity SKIN: No rashes CENTRAL NERVOUS SYSTEM: Alert and oriented -3. No focal deficits, tone is normal in all 4 extremities. PSYCHIATRIC: Alert and oriented -3. Appropriate affect. Intact judgment and insight. - Labs CBC & Chem 7: 01/09/22 09:26 01/09/22 09:26 Labs: Abnormal Lab Results - Last 24 Hours (Table) 01/08/22 01/08/22 01/08/22 Range/Units 09:23 16:41 20:09 WBC (3.8-10.6) k/uL RBC (4.30-5.90) m/uL Hgb (13.0-17.5) gm/dL Hct (39.0-53.0) % MCHC (31.0-37.0) g/dL RDW (11.5-15.5) % Neutrophils # (1.3-7.7) k/uL Lymphocytes # (1.0-4.8) k/uL Potassium (3.5-5.1) mmol/L Carbon Dioxide (22-30) mmol/L BUN (9-20) mg/dL Glucose (74-99) mg/dL POC Glucose (mg/dL) 195 H 242 H (70-110) mg/dL Procalcitonin 5.71 H (0.02-0.09) ng/mL TSH (0.465-4.680) mIU/L Free T4 (0.78-2.19) ng/dL 01/09/22 01/09/22 01/09/22 Range/Units 06:19 09:26 09:26 WBC 12.2 H (3.8-10.6) k/uL RBC 3.87 L (4.30-5.90) m/uL Hgb 10.6 L (13.0-17.5) gm/dL Hct 35.1 L (39.0-53.0) % MCHC 30.2 L (31.0-37.0) g/dL RDW 16.0 H (11.5-15.5) % Neutrophils # 10.8 H (1.3-7.7) k/uL Lymphocytes # 0.2 L (1.0-4.8) k/uL Potassium 2.9 L (3.5-5.1) mmol/L Carbon Dioxide 32 H (22-30) mmol/L BUN 33 H (9-20) mg/dL Glucose 390 H (74-99) mg/dL POC Glucose (mg/dL) 354 H (70-110) mg/dL Procalcitonin (0.02-0.09) ng/mL TSH (0.465-4.680) mIU/L Free T4 (0.78-2.19) ng/dL 01/09/22 01/09/22 Range/Units 09:26 11:25 WBC (3.8-10.6) k/uL RBC (4.30-5.90) m/uL Hgb (13.0-17.5) gm/dL Hct (39.0-53.0) % MCHC (31.0-37.0) g/dL RDW (11.5-15.5) % Neutrophils # (1.3-7.7) k/uL Lymphocytes # (1.0-4.8) k/uL Potassium (3.5-5.1) mmol/L Carbon Dioxide (22-30) mmol/L BUN (9-20) mg/dL Glucose (74-99) mg/dL POC Glucose (mg/dL) 374 H (70-110) mg/dL Procalcitonin (0.02-0.09) ng/mL TSH 0.280 L (0.465-4.680) mIU/L Free T4 2.66 H (0.78-2.19) ng/dL Assessment and Plan Plan: Acute on chronic congestive heart failure with secondary shortness of breath and acute hypoxic respiratory failure. Patient is currently on 8 L O2 nasal cannula with a pulse IS 96% AND THE PATIENT'S OXYGENATION IS IMPROVED AND THE PATIENT IS LESS HYPOXIC AND THE PATIENT IS CURRENTLY OFF THE BIPAP. Coronary artery disease with previous bypass surgery and multiple coronary interventions. Paroxysmal atrial fibrillation, he is currently in a sinus rhythm with a first- degree AV block. He remains on long-term and coagulation with Eliquis. The patient is currently on a Cardizem drip, metoprolol for rate control. Ischemic cardiomyopathy, EF 30-35% diabetes hypertension hyperlipidemia altered mental status, utilizing a combination of narcotics on an outpatient basis. Chronic pain with a combination of fentanyl patch and oxycodone Left ankle fracture, wearing a splint Plan Continue IV Lasix, clinically responding and the patient diuresed nicely Continue diuretics including Aldactone The antibiotic coverage is empiric. I do not see any signs of an infection. Check a pro-calcitonin level and the patient has been told with IV Zosyn Continue bronchodilators Continue steroids Management of his defibrillation per cardiology He is a DNR/DNI CODE STATUS Poor prognosis.
[2022-01-09] MEDS: AMIODARONE 100 MG TAB PO SCH (13:12)
--- NOTE | 2022-01-09 13:32 | P.PN ---
Subjective Progress Note Date: 01/09/22 This is a 66-year-old male who is admitted for COPD, CHF and trimalleolar fracture of the left ankle. Patient is seen and evaluated at bedside today. Patient is a poor historian. Per nursing, no acute events overnight. Objective - Vital Signs Vital signs: Vital Signs Temp 99.5 F 01/09/22 11:20 Pulse 167 H 01/09/22 11:49 Resp 22 01/09/22 11:20 BP 178/99 01/09/22 11:20 Pulse Ox 94 L 01/09/22 09:30 FiO2 50 01/08/22 16:00 Intake & Output 01/08/22 01/09/22 01/09/22 18:59 06:59 18:59 Output Total 2778 2700 1850 Balance -2775 -2700 -1850 Weight 74.5 kg Output: Urine 2774 2700 1850 Other: Voiding Method Indwelling Catheter Indwelling Catheter Indwelling Catheter - Exam On exam boot is intact to the left lower extremity. Calf is soft and nontender to palpation. Sensation intact. Neurovascular status and circulatory status are intact. - Labs CBC & Chem 7: 01/09/22 09:26 01/09/22 09:26 Labs: Abnormal Lab Results - Last 24 Hours (Table) 01/08/22 01/08/22 01/08/22 Range/Units 09:23 16:41 20:09 WBC (3.8-10.6) k/uL RBC (4.30-5.90) m/uL Hgb (13.0-17.5) gm/dL Hct (39.0-53.0) % MCHC (31.0-37.0) g/dL RDW (11.5-15.5) % Neutrophils # (1.3-7.7) k/uL Lymphocytes # (1.0-4.8) k/uL Potassium (3.5-5.1) mmol/L Carbon Dioxide (22-30) mmol/L BUN (9-20) mg/dL Glucose (74-99) mg/dL POC Glucose (mg/dL) 195 H 242 H (70-110) mg/dL Procalcitonin 5.71 H (0.02-0.09) ng/mL TSH (0.465-4.680) mIU/L Free T4 (0.78-2.19) ng/dL 01/09/22 01/09/22 01/09/22 Range/Units 06:19 09:26 09:26 WBC 12.2 H (3.8-10.6) k/uL RBC 3.87 L (4.30-5.90) m/uL Hgb 10.6 L (13.0-17.5) gm/dL Hct 35.1 L (39.0-53.0) % MCHC 30.2 L (31.0-37.0) g/dL RDW 16.0 H (11.5-15.5) % Neutrophils # 10.8 H (1.3-7.7) k/uL Lymphocytes # 0.2 L (1.0-4.8) k/uL Potassium 2.9 L (3.5-5.1) mmol/L Carbon Dioxide 32 H (22-30) mmol/L BUN 33 H (9-20) mg/dL Glucose 390 H (74-99) mg/dL POC Glucose (mg/dL) 354 H (70-110) mg/dL Procalcitonin (0.02-0.09) ng/mL TSH (0.465-4.680) mIU/L Free T4 (0.78-2.19) ng/dL 01/09/22 01/09/22 Range/Units 09:26 11:25 WBC (3.8-10.6) k/uL RBC (4.30-5.90) m/uL Hgb (13.0-17.5) gm/dL Hct (39.0-53.0) % MCHC (31.0-37.0) g/dL RDW (11.5-15.5) % Neutrophils # (1.3-7.7) k/uL Lymphocytes # (1.0-4.8) k/uL Potassium (3.5-5.1) mmol/L Carbon Dioxide (22-30) mmol/L BUN (9-20) mg/dL Glucose (74-99) mg/dL POC Glucose (mg/dL) 374 H (70-110) mg/dL Procalcitonin (0.02-0.09) ng/mL TSH 0.280 L (0.465-4.680) mIU/L Free T4 2.66 H (0.78-2.19) ng/dL Assessment and Plan (1) Acute exacerbation of chronic obstructive pulmonary disease Current Visit: Yes Status: Acute Code(s): J44.1 - CHRONIC OBSTRUCTIVE PULMONARY DISEASE W (ACUTE) EXACERBATION SNOMED Code(s): 226717134 (2) CHF exacerbation Current Visit: Yes Status: Acute Code(s): I50.9 - HEART FAILURE, UNSPECIFIED SNOMED Code(s): 352198440 (3) Trimalleolar fracture of ankle, closed Current Visit: Yes Status: Acute Code(s): S82.853A - DISPLACED TRIMALLEOLAR FRACTURE OF UNSP LOWER LEG, INIT SNOMED Code(s): 3452826 Plan: 1. Nonweightbearing to the left lower extremity with a boot. 2. No surgical intervention planned at this time due to the patient's multiple comorbidities. We will continue to follow peripherally and consider surgical intervention if his condition improves.
--- NOTE | 2022-01-09 14:33 | P.HPIM ---
History of Present Illness H&P Date: 01/08/22 Ashok Austin is a 66 yo M with PMH of CAD, ischemic cardiomyopathy, paroxysmal AF, T2DM, chronic pain with opiate use per pain management team and multiple other comorbidities, recently admitted and discharged on January 05 for congestive heart failure exacerbation, brought into the ER via EMS with mental status changes, dyspnea, respiratory failure, hypertension, multiple falls, left anterior ankle injury-trimalleolar. Family stating patient ran out of his medications 2 weeks ago including his Lasix. Denies chest pain, palpitations. X-ray of left ankle reported distal fibular and medial malleolar fracture with mild displacement. EKG reporting sinus rhythm with first-degree AV Block, chest x-ray reporting mild venous congestion, interstitial pneumonitis, increased density in the lateral lower lobes, possibly atelectasis versus mild interstitial pneumonia. BMP 12,200. T-max 101.4, WBC 10.7, hemoglobin 9.7, platelets 266, INR 1.2, sodium 146, potassium 3.3, bicarb 33, BUN 44, creatinine 1.46, glucose 167-to high 200s, magnesium 1.7, alk phos 236, Doppler of left leg reporting negative for DVT. Initial ABGs reported pH 7.43, pCO2 45, pO2 104 on 100% FiO2, repeat ABGs pending. IV push Lasix initiated in the ER in addition to oral amiodarone, metoprolol. Family reports patient takes oxycodone daily in addition to fentanyl patch and Cymbalta-states he cries out/yells every day with significant chronic pain. Given the night developed worsening respiratory status became hypoxic with shallow breathing and was placed on BiPAP. Review of Systems ROS unable to perform, patient on Bipap. Past Medical History Past Medical History: Atrial Fibrillation, Coronary Artery Disease (CAD), Chest Pain / Angina, Heart Failure, Diabetes Mellitus, GERD/Reflux, Hyperlipidemia, Hypertension, Myocardial Infarction (CO) Additional Past Medical History / Comment(s): Pt recently admitted to [facility] on 09/13/21 with acute on chronic chf, here 01/03/22 htn, pulm edema, acute hypoxic respiratory failure and elevated LFTs. Other hx: IDDM type II, ischemic cardiomyopathy, chronic low back and bilateral leg pain, past R scrotal abscess/sepsis. CHF Last Myocardial Infarction Date:: 03/20/15 History of Any Multi-Drug Resistant Organisms: None Reported Past Surgical History: Back Surgery, Coronary Bypass/CABG, Heart Cathet erization, Heart Catheterization With Stent, Orthopedic Surgery Additional Past Surgical History / Comment(s): 08/23/2019 CABG 3 vessels, PCI with total of 5 stents, L ankle ligament repair, R leg ORIF, low back surgery, colonoscopy. Past Anesthesia/Blood Transfusion Reactions: No Reported Reaction Additional Past Anesthesia/Blood Transfusion Reaction / Comment(s): Pt has received blood in past without reaction. Date of Last Stent Placement:: 02/2015 Past Psychological History: No Psychological Hx Reported Additional Psychological History / Comment(s): Pt resides with his sister. He has a cane to ambulate and has a glucometer. He has had home care thru [facility]. Smoking Status: Former smoker Past Alcohol Use History: None Reported Additional Past Alcohol Use History / Comment(s): Pt started smoking in 1968 and quit in 2014. He was a 2 ppd smoker. Pt states he was a heavy drinker but quit in 2001. Past Drug Use History: Marijuana Additional Drug Use History / Comment(s): Occasional marijuana. - Past Family History Sister(s) Family Medical History: Coronary Artery Disease (CAD), Hypertension Father Family Medical History: Coronary Artery Disease (CAD), Diabetes Mellitus, Deep Vein Thrombosis (DVT), Hypertension Additional Family Medical History / Comment(s): Father at age 58yrs. He of blood clot from leg injury that went to his heart. Medications and Allergies Home Medications Medication Instructions Recorded Confirmed Type DULoxetine HCL [Cymbalta] 60 mg PO BID 11/16/19 01/07/22 History oxyCODONE HCL [oxyCODONE HCL (IR)] 15 mg PO Q8H 03/01/20 01/07/22 History Aspirin 81 mg PO DAILY #30 chew 04/10/20 01/07/22 Rx Apixaban [Eliquis] 5 mg PO BID #60 tab 10/02/20 01/07/22 Rx Atorvastatin [Lipitor] 40 mg PO HS 01/31/21 01/07/22 History metFORMIN HCL [Glucophage] 1,000 mg PO BID 01/31/21 01/07/22 History Albuterol Sulfate [Albuterol 2 puff INHALATION RT-QID PRN 05/08/21 01/07/22 History Sulfate Hfa] Gabapentin 600 mg PO TID 09/11/21 01/07/22 History Insulin Glargine,Hum.rec.anlog 25 unit SQ HS 09/11/21 01/07/22 History [Basaglar Kwikpen U-100] Pantoprazole Sodium [Protonix] 40 mg PO DAILY 09/11/21 01/07/22 History fentaNYL 100MCG/HR PATCH 1 patch TRANSDERM Q72H 09/11/21 01/07/22 History [Duragesic 100MCG/HR] methocarbamoL [Robaxin-750] 750 mg PO TID 09/11/21 01/07/22 History Sacubitril/Valsartan [Entresto 49 1 tab PO DAILY 10/11/21 01/07/22 History mg-51 mg Tablet] Insulin Aspart [NovoLOG Flexpen] 10 units SQ AC-BID 01/03/22 01/07/22 History Metoprolol Succinate (ER) [Toprol 100 mg PO DAILY 01/03/22 01/07/22 History XL] Mirtazapine 15 mg PO HS 01/03/22 01/07/22 History Furosemide [Lasix] 40 mg PO BID@0900,1600 #60 tab 01/05/22 01/07/22 Rx Spironolactone [Aldactone] 25 mg PO DAILY #30 tab 01/05/22 01/07/22 Rx Allergies Allergy/AdvReac Type Severity Reaction Status Date / Time No Known Allergies Allergy Verified 01/07/22 12:41 Physical Exam Vitals: Vital Signs Temp Pulse Pulse Pulse Pulse Resp BP 01/08/22 08:51 78 01/08/22 08:43 76 01/08/22 08:35 99.6 F 82 82 20 01/08/22 08:30 01/08/22 04:30 99.3 F 01/08/22 04:08 82 01/08/22 04:00 101.4 F H 81 16 01/08/22 03:43 99 01/08/22 03:41 01/08/22 02:00 79 91 01/07/22 23:24 97.6 F 91 16 01/07/22 23:16 92 01/07/22 22:47 01/07/22 22:46 92 01/07/22 20:47 179/86 01/07/22 20:00 30 H 01/07/22 19:40 15 01/07/22 19:39 79 01/07/22 19:37 61 15 01/07/22 15:00 68 8 L 153/115 01/07/22 14:50 67 7 L 153/115 01/07/22 14:40 67 10 L 153/115 01/07/22 14:30 67 12 147/103 01/07/22 14:20 66 8 L 147/103 01/07/22 14:10 68 7 L 147/103 01/07/22 14:07 70 01/07/22 14:00 68 7 L 151/77 01/07/22 13:53 68 01/07/22 13:50 67 5 L 151/77 01/07/22 13:40 66 10 L 151/77 01/07/22 13:30 68 9 L 147/104 01/07/22 13:20 70 10 L 147/104 01/07/22 13:10 70 147/104 01/07/22 13:00 74 14 166/102 01/07/22 12:30 76 13 167/106 01/07/22 12:00 76 22 179/100 01/07/22 11:27 81 20 177/99 01/07/22 10:42 26 H 01/07/22 10:28 98.2 F 84 22 160/109 BP BP Pulse Ox FiO2 01/08/22 08:51 01/08/22 08:43 01/08/22 08:35 168/83 99 50 01/08/22 08:30 50 01/08/22 04:30 01/08/22 04:08 01/08/22 04:00 170/77 98 01/08/22 03:43 01/08/22 03:41 50 01/08/22 02:00 01/07/22 23:24 155/80 100 01/07/22 23:16 01/07/22 22:47 60 01/07/22 22:46 01/07/22 20:47 01/07/22 20:00 98 01/07/22 19:40 80/57 01/07/22 19:39 98/56 01/07/22 19:37 90/71 01/07/22 15:00 100 01/07/22 14:50 100 01/07/22 14:40 100 01/07/22 14:30 100 01/07/22 14:20 100 01/07/22 14:10 96 01/07/22 14:07 01/07/22 14:00 100 01/07/22 13:53 01/07/22 13:50 100 01/07/22 13:40 93 L 01/07/22 13:30 93 L 01/07/22 13:20 100 01/07/22 13:10 01/07/22 13:00 94 L 01/07/22 12:30 100 01/07/22 12:00 95 01/07/22 11:27 99 01/07/22 10:42 01/07/22 10:28 100 Intake and Output 01/07/22 01/08/22 01/08/22 22:59 06:59 14:59 Output Total 400 700 Balance -400 -700 Output: Urine 400 700 Other: Voiding Method Diaper Indwelling Catheter Indwelling Catheter External Catheter Weight 76.657 kg 68.5 kg PHYSICAL EXAM: VITAL SIGNS: As above GENERAL: Alert, Sitting up in bed, wearing BiPAP HEENT: Normocephalic , pupils are equal, round,Conjunctivae normal. eyes normal. NECK: Supple,No JVD. CARDIOVASCULAR: S1, S2 regular. No murmur, rubs or gallops. RESPIRATION: Equal air entry, Breath sounds diminished in the bilateral bases. No rhonchi or crackles. No bronchial breathing. ABDOMEN: Soft, nontender . No guarding. no masses palpable. No ascites, No hepatosplenomegaly.Bowel sounds heard. LEGS: Left lower extremity with dressing clean dry and intact, wearing boot. PSYCHIATRY: Alert and oriented X2, mood and affect normal. NERVOUS SYSTEM: Cranial N 2-12 grossly normal. Moves all 4 limbs. Diffuse we akness No focal deficits. Strength and sensation grossly intact.. Skin: no lesions, no rash Results CBC & Chem 7: 01/09/22 09:26 01/09/22 09:26 Labs: Abnormal Lab Results - Last 24 Hours (Table) 01/07/22 01/07/22 01/07/22 Range/Units 11:16 11:16 11:16 WBC (3.8-10.6) k/uL RBC 3.49 L (4.30-5.90) m/uL Hgb 9.6 L (13.0-17.5) gm/dL Hct 31.1 L (39.0-53.0) % MCHC 30.9 L (31.0-37.0) g/dL RDW 16.2 H (11.5-15.5) % Neutrophils # 8.6 H (1.3-7.7) k/uL Lymphocytes # 0.8 L (1.0-4.8) k/uL PT 12.3 H (9.0-12.0) sec INR 1.2 H (<1.2) ABG pH (7.35-7.45) ABG pCO2 (35-45) mmHg ABG HCO3 (21-25) mmol/L ABG Total CO2 (19-24) mmol/L BUN 35 H (9-20) mg/dL Creatinine 1.36 H (0.66-1.25) mg/dL Glucose 241 H (74-99) mg/dL POC Glucose (mg/dL) (70-110) mg/dL Hemoglobin A1c (0.0-6.0) % Alkaline Phosphatase 236 H (38-126) U/L 01/07/22 01/07/22 01/07/22 Range/Units 11:16 21:20 22:47 WBC (3.8-10.6) k/uL RBC (4.30-5.90) m/uL Hgb (13.0-17.5) gm/dL Hct (39.0-53.0) % MCHC (31.0-37.0) g/dL RDW (11.5-15.5) % Neutrophils # (1.3-7.7) k/uL Lymphocytes # (1.0-4.8) k/uL PT (9.0-12.0) sec INR (<1.2) ABG pH (7.35-7.45) ABG pCO2 (35-45) mmHg ABG HCO3 (21-25) mmol/L ABG Total CO2 (19-24) mmol/L BUN (9-20) mg/dL Creatinine (0.66-1.25) mg/dL Glucose (74-99) mg/dL POC Glucose (mg/dL) 259 H 262 H (70-110) mg/dL Hemoglobin A1c 8.2 H (0.0-6.0) % Alkaline Phosphatase (38-126) U/L 01/07/22 01/07/22 01/07/22 Range/Units 22:56 22:58 22:58 WBC 10.8 H (3.8-10.6) k/uL RBC 4.02 L (4.30-5.90) m/uL Hgb 11.3 L (13.0-17.5) gm/dL Hct 36.3 L (39.0-53.0) % MCHC (31.0-37.0) g/dL RDW 15.9 H (11.5-15.5) % Neutrophils # 9.7 H (1.3-7.7) k/uL Lymphocytes # 0.3 L (1.0-4.8) k/uL PT (9.0-12.0) sec INR (<1.2) ABG pH (7.35-7.45) ABG pCO2 (35-45) mmHg ABG HCO3 29 H (21-25) mmol/L ABG Total CO2 31 H (19-24) mmol/L BUN 39 H (9-20) mg/dL Creatinine 1.39 H (0.66-1.25) mg/dL Glucose 275 H (74-99) mg/dL POC Glucose (mg/dL) (70-110) mg/dL Hemoglobin A1c (0.0-6.0) % Alkaline Phosphatase (38-126) U/L 01/08/22 01/08/22 Range/Units 06:53 09:23 WBC (3.8-10.6) k/uL RBC (4.30-5.90) m/uL Hgb (13.0-17.5) gm/dL Hct (39.0-53.0) % MCHC (31.0-37.0) g/dL RDW (11.5-15.5) % Neutrophils # (1.3-7.7) k/uL Lymphocytes # (1.0-4.8) k/uL PT (9.0-12.0) sec INR (<1.2) ABG pH 7.48 H (7.35-7.45) ABG pCO2 47 H (35-45) mmHg ABG HCO3 36 H (21-25) mmol/L ABG Total CO2 37 H (19-24) mmol/L BUN (9-20) mg/dL Creatinine (0.66-1.25) mg/dL Glucose (74-99) mg/dL POC Glucose (mg/dL) 182 H (70-110) mg/dL Hemoglobin A1c (0.0-6.0) % Alkaline Phosphatase (38-126) U/L Thrombosis Risk Factor Assmnt - Choose All That Apply Any of the Below Risk Factors Present?: Yes Each Factor Represents 1 point: Obesity (BMI >25) Other Risk Factors: Yes Each Risk Factor Represents 2 Points: Age 61-74 years Thrombosis Risk Factor Assessment Total Risk Factor Score: 3 Thrombosis Risk Factor Assessment Level: Moderate Risk Assessment and Plan Assessment: Acute on chronic hypoxic, possibly hypercapnic respiratory failure, multifactorial, secondary to acute on chronic CHF, systolic dysfunction. family states patient has been out of medications including his Lasix for weeks, possibly also secondary to home pain medications/opioids. ABGs pending. Acute toxic and metabolic encephalopathy secondary to the above Paroxysmal atrial fibrillation, currently sinus rhythm with first-degree AV block Acute on chronic CHF systolic dysfunction Ischemic cardiomyopathy, EF 30-35% Chronic pain, follows with a pain management group in [place], [facility]" as per family. CAD Diabetes mellitus type 2, Left ankle fracture, present on admission Plan: Continue on current medication regime ,monitoring and symptomatic treatment. Empiric Zosyn initiated. BiPAP, diuresis with IV Lasix. Pro- calcitonin ordered. Repeat ABGs pending. Aggressive pulmonary toileting with nebulized bronchodilators and steroids. Fentanyl patch discontinued. Orthopedic surgery, Cardiology and pulmonary consult in place, recommendations pending Prognosis guarded given multiple complex medical issues. The impression and plan of care has been dictated as directed. : I performed a history and examination of this patient, discussed the same with the dictator. I agree with the dictator's note ,documented as a scribe. Any additional findings or plans will be noted.
[2022-01-09] MEDS ORDERED: Potassium Replacement Protocol 1 EACH MISC MISCELLANE PRN ×2 (16:11→18:25)
--- NOTE | 2022-01-09 16:20 | P.PN ---
Subjective Progress Note Date: 01/09/22 Evaluated by multiple consults, recommendations noted. Neuro workup in progress with MRI/EEG pending. Telemetry atrial fibrillation with RVR , amiodarone drip initiated overnight. Lethargic, restless, sensorium mildly improved. Diuresed well on Lasix IV push with 24-hour I&O reflecting a negative fluid balance. Potassium 2.9, BUN 33, creatinine decreased to 1.13 .TSH 0.280, free T4 2.66. T-max 100.8, WBC 12.2. Respiratory status improving, maintaining O2 sats in the 90s on 8 L nasal cannula. Objective - Vital Signs Vital signs: Vital Signs Temp 99.5 F 01/09/22 11:20 Pulse 167 H 01/09/22 11:49 Resp 22 01/09/22 11:20 BP 178/99 01/09/22 11:20 Pulse Ox 94 L 01/09/22 09:30 FiO2 50 01/08/22 16:00 Intake & Output 01/08/22 01/09/22 01/09/22 18:59 06:59 18:59 Output Total 2775 2700 1850 Balance -2775 -2700 -1850 Weight 74.5 kg Output: Urine 4231 9290 1850 Other: Voiding Method Indwelling Catheter Indwelling Catheter Indwelling Catheter - Exam PHYSICAL EXAM: VITAL SIGNS: As above GENERAL: Alert, Sitting up in bed, confused HEENT: Normocephalic , pupils are equal, round,Conjunctivae normal. eyes normal. NECK: Supple,No JVD. CARDIOVASCULAR: S1, S2, Irregular, tachycardic. No murmur, rubs or gallops. RESPIRATION: Equal air entry, Breath sounds diminished in the bilateral bases. No rhonchi or crackles. No bronchial breathing. ABDOMEN: Soft, nontender . No guarding. no masses palpable. No ascites, No hepatosplenomegaly.Bowel sounds heard. LEGS: Left lower extremity with dressing clean dry and intact, wearing boot. PSYCHIATRY: Alert and oriented X2, mood and affect normal. NERVOUS SYSTEM: Limited evaluation; Diffuse weakness No focal deficits. Strength and sensation grossly intact. Skin: Warm and dry, no rash - Labs CBC & Chem 7: 01/09/22 09:26 01/09/22 09:26 Labs: Abnormal Lab Results - Last 24 Hours (Table) 01/08/22 01/08/22 01/08/22 Range/Units 09:23 16:41 20:09 WBC (3.8-10.6) k/uL RBC (4.30-5.90) m/uL Hgb (13.0-17.5) gm/dL Hct (39.0-53.0) % MCHC (31.0-37.0) g/dL RDW (11.5-15.5) % Neutrophils # (1.3-7.7) k/uL Lymphocytes # (1.0-4.8) k/uL Potassium (3.5-5.1) mmol/L Carbon Dioxide (22-30) mmol/L BUN (9-20) mg/dL Glucose (74-99) mg/dL POC Glucose (mg/dL) 195 H 242 H (70-110) mg/dL Procalcitonin 5.71 H (0.02-0.09) ng/mL TSH (0.465-4.680) mIU/L Free T4 (0.78-2.19) ng/dL 01/09/22 01/09/22 01/09/22 Range/Units 06:19 09:26 09:26 WBC 12.2 H (3.8-10.6) k/uL RBC 3.87 L (4.30-5.90) m/uL Hgb 10.6 L (13.0-17.5) gm/dL Hct 35.1 L (39.0-53.0) % MCHC 30.2 L (31.0-37.0) g/dL RDW 16.0 H (11.5-15.5) % Neutrophils # 10.8 H (1.3-7.7) k/uL Lymphocytes # 0.2 L (1.0-4.8) k/uL Potassium 2.9 L (3.5-5.1) mmol/L Carbon Dioxide 32 H (22-30) mmol/L BUN 33 H (9-20) mg/dL Glucose 390 H (74-99) mg/dL POC Glucose (mg/dL) 354 H (70-110) mg/dL Procalcitonin (0.02-0.09) ng/mL TSH (0.465-4.680) mIU/L Free T4 (0.78-2.19) ng/dL 01/09/22 01/09/22 Range/Units 09:26 11:25 WBC (3.8-10.6) k/uL RBC (4.30-5.90) m/uL Hgb (13.0-17.5) gm/dL Hct (39.0-53.0) % MCHC (31.0-37.0) g/dL RDW (11.5-15.5) % Neutrophils # (1.3-7.7) k/uL Lymphocytes # (1.0-4.8) k/uL Potassium (3.5-5.1) mmol/L Carbon Dioxide (22-30) mmol/L BUN (9-20) mg/dL Glucose (74-99) mg/dL POC Glucose (mg/dL) 374 H (70-110) mg/dL Procalcitonin (0.02-0.09) ng/mL TSH 0.280 L (0.465-4.680) mIU/L Free T4 2.66 H (0.78-2.19) ng/dL Assessment and Plan Assessment: Acute on chronic hypoxic, possibly hypercapnic respiratory failure, multifactorial, secondary to acute on chronic CHF, systolic dysfunction. family states patient has been out of medications including his Lasix for weeks, possibly also secondary to home pain medications/opioids. ABGs pending. Acute toxic and metabolic encephalopathy secondary to the above Paroxysmal atrial fibrillation, currently sinus rhythm with first-degree AV block Acute on chronic CHF systolic dysfunction Ischemic cardiomyopathy, EF 30-35% Chronic pain, follows with a pain management group in [facility], [facility]" as per family. CAD Diabetes mellitus type 2, hyperglycemic, A1c 8.2 Left ankle fracture, present on admission Plan: Continue on current medication regime ,monitoring and symptomatic treatment. Diuresis with IV Lasix. Potassium 2.9, replacement protocol ordered. Pro-calcitonin elevated, 5.71. Maintain aggressive pulmonary toileting with nebulized bronchodilators ,steroids, empiric antibiotics. Evaluated by multiple consults with recommendations noted. Antiarrhythmics as per cardiology. Hyperglycemic, Levemir insulin increased, close monitoring of Accu-Cheks. Family at bedside, updated ; questions addressed, support given .Prognosis guarded given multiple complex medical issues. The impression and plan of care has been dictated as directed. : I performed a history and examination of this patient, discussed the same with the dictator. I agree with the dictator's note ,documented as a scribe. Any additional findings or plans will be noted.
[2022-01-09 16:58] LABS: Glucose,Whole Blood 201 mg/dL (70-110)
[2022-01-09] MEDS ORDERED: INSULIN DETEMIR (LEVEMIR) 100 UNIT/ML SYR SQ SCH (17:00)
[2022-01-09] MEDS: POTASSIUM CHLORIDE ER 20 MEQ TAB.ER PO SCH ×3 (18:57→22:36)
[2022-01-09 20:03] LABS: Glucose,Whole Blood 254 mg/dL (70-110)
[2022-01-09] MEDS: HYDROcodone/APAP 5-325MG 1 EACH TAB PO PRN (20:58)
[2022-01-09] MEDS: ATORVASTATIN 40 MG TAB PO SCH (20:59)
[2022-01-09] MEDS: MIRTAZAPINE 15 MG TAB PO SCH (20:59)
[2022-01-10] MEDS: AMIODARONE 450 MG in DEXTROSE 5% IN WATER 250 ML IV SCH ×2 (05:45)
[2022-01-10] MEDS: DILTIAZEM 125 MG in SODIUM CHLORIDE 0.9% 100 ML IV SCH (05:46)
[2022-01-10 06:04] LABS: Glucose,Whole Blood 279 mg/dL (70-110)
[2022-01-10] MEDS: INSULIN ASPART (NovoLOG) 100 UNIT/ML VIAL SQ SCH ×4 (06:31→20:16)
[2022-01-10] MEDS: IPRATROPIUM-ALBUTEROL 3 ML NEB INHALATION SCH ×4 (07:41→20:14)
[2022-01-10] MEDS: PIPERACILLIN-TAZOBACTAM 3.375 GM in SODIUM CHLORIDE 0.9% 100 ML IVPB SCH ×3 (08:14→23:22)
[2022-01-10] MEDS: DULoxetine HCL 60 MG CAPSULE.DR PO SCH ×2 (08:15→20:19)
[2022-01-10] MEDS: SACUBITRIL/VALSARTAN 24 MG-26 MG TABLET PO SCH ×2 (08:15→21:24)
[2022-01-10] MEDS: ASPIRIN 81 MG PO SCH (08:15)
[2022-01-10] MEDS: FUROSEMIDE 10 MG/ML 4 ML VIAL IV SCH ×2 (08:15→20:20)
[2022-01-10] MEDS: methylPREDNISolone SOD SUCCI 125 MG/2 ML VIAL IV SCH ×3 (08:15→23:22)
[2022-01-10] MEDS: METOPROLOL SUCCINATE (ER) 100 MG TAB.ER.24H PO SCH ×2 (08:15→20:20)
[2022-01-10] MEDS: APIXABAN 5 MG TAB PO SCH ×2 (08:15→20:19)
[2022-01-10] MEDS: SPIRONOLACTONE 25 MG TAB PO SCH (08:15)
[2022-01-10] MEDS: PANTOPRAZOLE 40 MG/10 ML VIAL IVP SCH (08:16)
[2022-01-10] MEDS ORDERED: METOPROLOL SUCCINATE (ER) 100 MG TAB.ER.24H PO ONE (08:30)
[2022-01-10] MEDS: HYDROcodone/APAP 5-325MG 1 EACH TAB PO PRN ×2 (08:58→20:19)
[2022-01-10 09:46] LABS: Potassium 2.8 mmol/L (3.5-5.1)
[2022-01-10] MEDS: LORazepam 0.5 MG TAB PO PRN ×2 (10:11→23:22)
[2022-01-10] MEDS: DIGOXIN 125 MCG TAB PO SCH (10:14)
--- NOTE | 2022-01-10 10:15 | P.PN ---
Subjective Progress Note Date: 01/10/22 This is a 66-year-old male who is admitted for COPD, CHF and trimalleolar fracture of the left ankle. Patient is seen and evaluated at bedside today. Patient is a poor historian. Patient's family friend is present in the room today and denies any new complaints regarding the left ankle. Objective - Vital Signs Vital signs: Vital Signs Temp 98.8 F 01/10/22 08:00 Pulse 142 H 01/10/22 08:00 Resp 22 01/10/22 08:00 BP 173/98 01/10/22 08:00 Pulse Ox 100 01/10/22 08:00 FiO2 50 01/10/22 08:00 Intake & Output 01/09/22 01/10/22 01/10/22 18:59 06:59 18:59 Intake Total 223.417 5 Output Total 2850 2000 775 Balance -5302 -1776.583 -770 Weight 72 kg Intake: IV 5 Invasive Line 3 5 Intake, IV Titration 223.417 Amount Diltiazem 125 mg In 123.417 Sodium Chloride 0.9% 100 ml @ 5 MG/HR 5 mls/hr IV .Q24H [facility] Rx#:[id number] Piperacillin-Tazobactam 3 100 .375 gm In Sodium Chloride 0.9% 100 ml @ 25 mls/hr IVPB Q8HR [facility] Rx# :[id number] Output: Urine 2850 2000 775 Other: Voiding Method Indwelling Catheter Indwelling Catheter Indwelling Catheter - Exam On exam boot is intact to the left lower extremity and removed for exam. There is mild swelling and ecchymosis present. Blisters to the anterior aspect of the ankle are intact. No erythema or drainage. Calf is soft and nontender to palpation. Sensation intact. Neurovascular status and circulatory status are intact. - Labs CBC & Chem 7: 01/09/22 09:26 01/10/22 09:04 Labs: Abnormal Lab Results - Last 24 Hours (Table) 01/09/22 01/09/22 01/09/22 Range/Units 09:26 11:25 16:43 Sodium (137-145) mmol/L Potassium (3.5-5.1) mmol/L Carbon Dioxide (22-30) mmol/L BUN (9-20) mg/dL Glucose (74-99) mg/dL POC Glucose (mg/dL) 374 H 201 H (70-110) mg/dL Vitamin B12 1289.0 H (200.0-944.0) pg/mL TSH 0.280 L (0.465-4.680) mIU/L Free T4 2.66 H (0.78-2.19) ng/dL 01/09/22 01/10/22 01/10/22 Range/Units 20:01 06:03 09:04 Sodium 154 H (137-145) mmol/L Potassium 2.8 L (3.5-5.1) mmol/L Carbon Dioxide 32 H (22-30) mmol/L BUN 35 H (9-20) mg/dL Glucose 252 H (74-99) mg/dL POC Glucose (mg/dL) 254 H 279 H (70-110) mg/dL Vitamin B12 (200.0-944.0) pg/mL TSH (0.465-4.680) mIU/L Free T4 (0.78-2.19) ng/dL Assessment and Plan (1) Acute exacerbation of chronic obstructive pulmonary disease Current Visit: Yes Status: Acute Code(s): J44.1 - CHRONIC OBSTRUCTIVE PULMONARY DISEASE W (ACUTE) EXACERBATION SNOMED Code(s): 220371940 (2) CHF exacerbation Current Visit: Yes Status: Acute Code(s): I50.9 - HEART FAILURE, UNSPECIFIED SNOMED Code(s): 011812945 (3) Trimalleolar fracture of ankle, closed Current Visit: Yes Status: Acute Code(s): S82.853A - DISPLACED TRIMALLEOLAR FRACTURE OF UNSP LOWER LEG, INIT SNOMED Code(s): 2332569 Plan: 1. Nonweightbearing to the left lower extremity with a boot. 2. No surgical intervention planned at this time due to the patient's multiple comorbidities. We will continue to follow peripherally and consider surgical intervention if his condition improves.
[2022-01-10 10:18] LABS: Glucose,Whole Blood 269 mg/dL (70-110)
--- NOTE | 2022-01-10 10:34 | P.PN ---
Subjective Progress Note Date: 01/10/22 The patient is a 66-year-old male with multiple comorbid conditions, who is currently admitted to the hospital with mental status changes and congestive heart failure exacerbation. The patient was obtunded on arrival. He was given Narcan. Hospital course his been complicated by A. fib with RVR. He was started on amiodarone drip as well as Cardizem drip, however it was noted that his TSH was quite suppressed. Amiodarone was discontinued and beta blockers are being maximize for rate control. The patient is resting comfortably in bed on BiPAP this morning. He has no complaints. GENERAL: Well-appearing, well-nourished and in no acute distress. NECK: Supple without JVD or thyromegaly. LUNGS: Breath sounds diminished to auscultation bilaterally. Respiration equal and unlabored. No wheezes or rhonchi. HEART: Irregular rate and rhythm without murmurs, rubs or gallops. S1 and S2 heard. EXTREMITIES: Normal range of motion, no edema. No clubbing or cyanosis. Peripheral pulses intact and strong. VITALS: Blood pressure 173/98, pulse 140, respiratory rate 22, SpO2 97% on BiPAP, afebrile TELEMETRY: A. fib with RVR LABS: Sodium 154, potassium 2.8, BUN 35, creatinine 1.14 IMPRESSION: Acute on chronic congestive heart failure Mental status changes, secondary to opioid abuse Paroxysmal atrial fibrillation, currently in A. fib with RVR Ischemic cardiomyopathy, last EF 30-35% Suppressed TSH, likely secondary to amiodarone Hypernatremia and hypokalemia History of CAD History of diabetes History of hypertension history of dyslipidemia PLAN: Increase metoprolol to 200 mg twice daily Add digoxin 125 g Supplement potassium protocol Continue to wean the patient on a Cardizem drip Further recommendations based on clinical course I am dictating on behalf of Dr Travis Caban's history/physical and assessment/plan. Objective - Vital Signs Vital signs: Vital Signs Temp 98.8 F 01/10/22 08:00 Pulse 142 H 01/10/22 08:00 Resp 22 01/10/22 08:00 BP 173/98 01/10/22 08:00 Pulse Ox 100 01/10/22 08:00 FiO2 50 01/10/22 08:00 Intake & Output 10/01/10/22 01/10/22 18:59 06:59 18:59 Intake Total 223.417 5 Output Total 2850 1999 775 Balance -2850 -1776.583 -770 Weight 72 kg Intake: IV 5 Invasive Line 3 5 Intake, IV Titration 223.417 Amount Diltiazem 125 mg In 123.417 Sodium Chloride 0.9% 100 ml @ 5 MG/HR 5 mls/hr IV .Q24H [facility] Rx#:[id number] Piperacillin-Tazobactam 3 100 .375 gm In Sodium Chloride 0.9% 100 ml @ 25 mls/hr IVPB Q8HR [facility] Rx# :[id number] Output: Urine 2850 1999 Other: Voiding Method Indwelling Catheter Indwelling Catheter Indwelling Catheter - Labs CBC & Chem 7: 01/09/22 09:26 01/10/22 09:04 Labs: Abnormal Lab Results - Last 24 Hours (Table) 01/09/22 01/09/22 01/09/22 Range/Units 09:26 11:25 16:43 Sodium (137-145) mmol/L Potassium (3.5-5.1) mmol/L Carbon Dioxide (22-30) mmol/L BUN (9-20) mg/dL Glucose (74-99) mg/dL POC Glucose (mg/dL) 374 H 201 H (70-110) mg/dL Vitamin B12 1289.0 H (200.0-944.0) pg/mL TSH 0.280 L (0.465-4.680) mIU/L Free T4 2.66 H (0.78-2.19) ng/dL 01/09/22 01/10/22 01/10/22 Range/Units 20:01 06:03 09:04 Sodium 154 H (137-145) mmol/L Potassium 2.8 L (3.5-5.1) mmol/L Carbon Dioxide 32 H (22-30) mmol/L BUN 35 H (9-20) mg/dL Glucose 252 H (74-99) mg/dL POC Glucose (mg/dL) 254 H 279 H (70-110) mg/dL Vitamin B12 (200.0-944.0) pg/mL TSH (0.465-4.680) mIU/L Free T4 (0.78-2.19) ng/dL 01/10/22 Range/Units 09:59 Sodium (137-145) mmol/L Potassium (3.5-5.1) mmol/L Carbon Dioxide (22-30) mmol/L BUN (9-20) mg/dL Glucose (74-99) mg/dL POC Glucose (mg/dL) 269 H (70-110) mg/dL Vitamin B12 (200.0-944.0) pg/mL TSH (0.465-4.680) mIU/L Free T4 (0.78-2.19) ng/dL
--- NOTE | 2022-01-10 10:53 | P.PN ---
Subjective Progress Note Date: 01/10/22 The patient is seen at bedside and is accompanied by his daughter. She feels that her father is more confused today and less responsive compared to yesterday. Overnight he has been tachycardiac and is on Amiodarone. Yesterday an EEG was attempted but patient was restless so daughter stated she will be with him for the test if required. Objective - Vital Signs Vital signs: Vital Signs Temp 98.8 F 01/10/22 08:00 Pulse 142 H 01/10/22 08:00 Resp 22 01/10/22 08:00 BP 173/98 01/10/22 08:00 Pulse Ox 100 01/10/22 08:00 FiO2 50 01/10/22 08:00 Intake & Output 01/09/22 01/10/22 01/10/22 18:59 06:59 18:59 Intake Total 223.417 5 Output Total 2850 2000 775 Balance -2850 -1776.583 -770 Weight 72 kg Intake: IV 5 Invasive Line 3 5 Intake, IV Titration 223.417 Amount Diltiazem 125 mg In 123.417 Sodium Chloride 0.9% 100 ml @ 5 MG/HR 5 mls/hr IV .Q24H [facility]BY Rx#:[id number] Piperacillin-Tazobactam 3 100 .375 gm In Sodium Chloride 0.9% 100 ml @ 25 mls/hr IVPB Q8HR [facility] Rx# :[id number] Output: Urine 2850 2000 775 Other: Voiding Method Indwelling Catheter Indwelling Catheter Indwelling Catheter - Exam GENERAL: The patient is lying in bed and is not in acute distress. HENT: Supple neck. NEUROLOGICAL: Limited because of cooperation. Higher mental function: The patient is severely drowsy but is aweakable intermittently to voice. He is oriented to self. He is able to show thumbs up on commands on both hands and attempting to stick his tongue out. Cranial nerves: The pupils are round, equal and reactive to light. He is tr acking to the right and left. No facial weakness. No dysarthia but has hypophonia. Otherwise rest of cranial nerves are limited. Motor: The strength is hard to assess but briefly able to lift bilateral above gravity. Left lower is limited because of left ankle fracture. Normal tone and bulk. Sensation: Unable to assess. Cerebellar: Unable to assess. Some other workup during this hospital visit consisted of: During this hospital visit the patient had been to fever episodes T-max of 101.4 on 01/08 During this hospital visit the white blood cell on presentation was 10.5 t housand which is within normal limits then her his highest white blood cells 10.8 thousand slightly neutrophilic. Hemoglobin A1c is 8.2. His creatinine is 1.36 and trending up to 1.46. Vitamin B12 was 1289 Folate is more than 20 TSH is 0.280 and the free T4 is 2.66 Ammonia level is 15. His x-ray is reported as mild venous congestion or interstitial pneumonitis. CT head is reported as mild atrophy. No acute intracranial abnormality. No change. I personally reviewed this the head and I don't appreciate any acute subacute ischemia there is no typical hemorrhage. Carotid duplex is reported as atherosclerotic plaque with no significant hemodynamic stenosis by carotid Doppler ultrasound. - Labs CBC & Chem 7: 01/09/22 09:26 01/10/22 09:04 Labs: Abnormal Lab Results - Last 24 Hours (Table) 01/09/22 01/09/22 01/09/22 Range/Units 09:26 11:25 16:43 Sodium (137-145) mmol/L Potassium (3.5-5.1) mmol/L Carbon Dioxide (22-30) mmol/L BUN (9-20) mg/dL Glucose (74-99) mg/dL POC Glucose (mg/dL) 374 H 201 H (70-110) mg/dL Vitamin B12 1289.0 H (200.0-944.0) pg/mL TSH 0.280 L (0.465-4.680) mIU/L Free T4 2.66 H (0.78-2.19) ng/dL 01/09/22 01/10/22 01/10/22 Range/Units 20:01 06:03 09:04 Sodium 154 H (137-145) mmol/L Potassium 2.8 L (3.5-5.1) mmol/L Carbon Dioxide 32 H (22-30) mmol/L BUN 35 H (9-20) mg/dL Glucose 252 H (74-99) mg/dL POC Glucose (mg/dL) 254 H 279 H (70-110) mg/dL Vitamin B12 (200.0-944.0) pg/mL TSH (0.465-4.680) mIU/L Free T4 (0.78-2.19) ng/dL 01/10/22 Range/Units 09:59 Sodium (137-145) mmol/L Potassium (3.5-5.1) mmol/L Carbon Dioxide (22-30) mmol/L BUN (9-20) mg/dL Glucose (74-99) mg/dL POC Glucose (mg/dL) 269 H (70-110) mg/dL Vitamin B12 (200.0-944.0) pg/mL TSH (0.465-4.680) mIU/L Free T4 (0.78-2.19) ng/dL Assessment and Plan Assessment: Altered mental status due to multifactorial one of him as metabolic, also due narcotic use/polypharmacy, hyperthyroidism, cardiac issues/tachycardia and on amiodarone. He has two episode of low grade fever and unsure cause of fever (unlikely meningoencephalitis) and no further episodes of fevers---mentation worsening Transient episode of dysarthria on 01/07 or even possibly late 01/06: Rule out stroke/TIA versus due to his encephalopathy. Hyperthyroidism Dyspnea due congestive heart failure Left ankle fracture History of atrial fibrillation on eliquis Diabetes mellitus Hypertension severe ischemic cardiomyopathy History of coronary artery disease s/p stent and history of CABG Polypharmacy Plan: Pending routine EEG (unable to lay still) to rule out seizure and epileptiform discharge and MRI Brain to rule out stroke. If he has acute or subacute stroke then will get rest of stroke work-up. Currently on eliquis for a-fib. Also on ASA 81mg daily (both home dose). Recommend hyperthyroidism management to the primary team. Recommend further evaluation of fever and unknown source and patient has further episodes fever recommend consideration of lumbar puncture. But again doubt this is meningoencephalitis. Cardiology is on board. Pulmonary is on board. Will defer the rest of medical management to the primary team. The plan is discussed with patient and his daughter who is at bedside. Dr. Stephen is providing neurology coverage this then Dr. Cruz will start this Thursday A.M.. Time with Patient: Less than 30
[2022-01-10 11:41] LABS: Glucose,Whole Blood 245 mg/dL (70-110)
--- NOTE | 2022-01-10 13:17 | P.PN ---
Subjective Progress Note Date: 01/10/22 This is a 66-year-old patient with known history of coronary artery disease, previous bypass surgery, history of severe cardiomyopathy ischemic in nature with an ejection fraction of 25% with multiple hospitalizations for complications related to his cardiac disease. His last echocardiogram from 09/12/2021 has shown an ejection fraction of 30-35% along with hypokinesis involving the inferobasilar basilar and inferior wall as well as the anteroseptal portion. The cardiac valves were intact. The patient is also known to have chronic active fibrillation, hypertension, diabetes mellitus type 2 and chronic kidney disease. The patient also has issues with chronic pain and chronic opiate use. He was discharged from the hospital on 01/05/2022 after being admitted for CHF exacerbation. The patient was discharged home with guarded prognosis. Cardiology cleared this patient discharged and accordingly was released home. He was discharged home on Lasix 40 units by mouth twice a day and Aldactone 25 mg by mouth as diuretics. The patient's was brought back to the hospital yesterday because of an altered mental status in the fall. He was very much lethargic and disoriented since his discharge. In the ED, the patient was given an EKG that showed a normal sinus mechanism. He had a first degree AV block. His chest x-ray showed some mild interstitial prominence. His proBNP level was quite elevated at 12,200. His white cell count was a complicated with a hemoglobin of 11.3 and a platelet count of 363. He has a BUN of 39 with a creatinine of 1.35 and a magnesium level of 1.7. He was given a blood gas because of worsening shortness of breath. The patient's initial blood gas showed a pH of 7.43 with a pCO2 of 45 and pO2 of 104 and this was on FiO2 of 100%. Subsequently, and a 50% FiO2 and blood gases from today showed a pH of 7.48 with a total 47 and pO2 of 91. A repeat chest x-ray from today shows improvement in the volume status. Patient's currently is on DuoNeb nebulizer treatments [id number], is on Lasix 40 mg IV every 12 hours. He is also on Aldactone 25 mg by mouth daily. He remains on amiodarone 100 mg by mouth daily. Long-term antibiotic irrigation was without a course. The patient is also on metoprolol 100 mg by mouth daily. His also diabetic on 10 units of Levemir insulin and a sliding scale coverage. As far as pain control, he takes oxycodone 50 mg every 8 hours, fentanyl patch 100 g every 72 hours and is also on Cymbalta 60 mg by mouth twice a day. Overnight, the patient was found to be hypoxic and short of breath. Immediately, he was placed on a BiPAP which is currently running at a setting of 14/6 cm of water with an FiO2 50%. I believe the blood gas was somewhat him on a BiPAP and the patient is adequately oxygenating and ventilating for now. 01/09/2022, the patient continues to be altered, lethargic, gets a little answer some simple questions. He remained nature fibrillation. At time of my evaluation, the patient was having a rapid ventricular response along with Atrovent fibrillation. His heart rate monitoring showed that the patient's heart rate has been persistently elevated above 100 as of this morning. He is currently on Cardizem drip at 5 mg an hour. He remains also metoprolol 100 mg by mouth twice a day. He was restarted back on Entresto results on Lasix 40 mg IV every 12 hours. His long-term antiplatelet issues with lupus. The patient is a negative fluid balance of 5.4 L over the past 24 hours. Is currently on 8 L of oxygen nasal cannula with a pulse ox of 96%. His moldable 4 extremities. At times restless and agitated. On 01/10/2022, the patient remains confused and less responsive compared to yesterday. He is resting comfortably in bed. EEG was done yesterday and was not completed as the patient was restless and no useful information was obtained. He remains negative fibrillation with rapid ventricular response. He is currently on Toprol and Cardizem and digoxin. The patient is currently on metoprolol 200 mg by mouth twice a day. Is also on Cardizem drip at 5 mg an hour. Digoxin was also started on 25 g on a daily basis. He is on long-term and ventricular dilation with liquids. He remains on bronchodilators. He remains on systemic steroids. There is also on Lasix 40 mg IV every 12 hours. He is on 6 L of O2 and his pulse ox is 96%. IV fluids is 0.9 and that it is an hour. He remains on IV Zosyn as an empiric antibiotic coverage. Objective - Vital Signs Vital signs: Vital Signs Temp 98.8 F 01/10/22 08:00 Pulse 116 H 01/10/22 11:56 Resp 22 01/10/22 08:00 BP 173/98 01/10/22 08:00 Pulse Ox 100 01/10/22 11:45 FiO2 50 01/10/22 08:00 Intake & Output 01/09/22 01/10/22 01/10/22 18:59 06:59 18:59 Intake Total 223.417 5 Output Total 2850 2000 775 Balance -2850 -1776.583 -770 Weight 72 kg Intake: IV 5 Invasive Line 3 5 Intake, IV Titration 223.417 Amount Diltiazem 125 mg In 123.417 Sodium Chloride 0.9% 100 ml @ 5 MG/HR 5 mls/hr IV .Q24H [facility] Rx#:[id number] Piperacillin-Tazobactam 3 100 .375 gm In Sodium Chloride 0.9% 100 ml @ 25 mls/hr IVPB Q8HR [facility] Rx# :[id number] Output: Urine 2850 1999 775 Other: Voiding Method Indwelling Catheter Indwelling Catheter Indwelling Catheter - Exam GENERAL EXAM: Alert, very pleasant, 64-year-old male on room air, with pulse ox of 96% on 8 L of O2 nasal cannula HEAD: Normocephalic/atraumatic. EYES: Normal reaction of pupils, equal size. Conjunctiva pink, sclera white. NOSE: Clear with pink turbinates. THROAT: No erythema or exudates. NECK: No masses, no JVD, no thyroid enlargement, no adenopathy. CHEST: No chest wall deformity. Symmetrical expansion. Midsternal incision well approximated, with some drainage at the distal and which is mostly serous in nature, chest tube sites clean dry and intact LUNGS: Equal air entry with no crackles, wheeze, rhonchi or dullness. CVS: Irregular with rapid ventricular response consistent with atrial fibrillation, normal S1 and S2, no gallops, no murmurs, no rubs ABDOMEN: Soft, nontender. No hepatosplenomegaly, normal bowel sounds, no guarding or rigidity. EXTREMITIES: No clubbing, no edema, no cyanosis, 2+ pulses and upper and lower extremities. MUSCULOSKELETAL: Muscle strength and tone normal. SPINE: No scoliosis or deformity SKIN: No rashes CENTRAL NERVOUS SYSTEM: Alert and oriented -3. No focal deficits, tone is normal in all 4 extremities. PSYCHIATRIC: Alert and oriented -3. Appropriate affect. Intact judgment and insight. - Labs CBC & Chem 7: 01/09/22 09:26 01/10/22 09:04 Labs: Abnormal Lab Results - Last 24 Hours (Table) 01/09/22 01/09/22 01/09/22 Range/Units 09:26 16:43 20:01 Sodium (137-145) mmol/L Potassium (3.5-5.1) mmol/L Carbon Dioxide (22-30) mmol/L BUN (9-20) mg/dL Glucose (74-99) mg/dL POC Glucose (mg/dL) 201 H 254 H (70-110) mg/dL Vitamin B12 1289.0 H (200.0-944.0) pg/mL 01/10/22 01/10/22 01/10/22 Range/Units 06:03 09:04 09:59 Sodium 154 H (137-145) mmol/L Potassium 2.8 L (3.5-5.1) mmol/L Carbon Dioxide 32 H (22-30) mmol/L BUN 35 H (9-20) mg/dL Glucose 252 H (74-99) mg/dL POC Glucose (mg/dL) 279 H 269 H (70-110) mg/dL Vitamin B12 (200.0-944.0) pg/mL 01/10/22 Range/Units 11:39 Sodium (137-145) mmol/L Potassium (3.5-5.1) mmol/L Carbon Dioxide (22-30) mmol/L BUN (9-20) mg/dL Glucose (74-99) mg/dL POC Glucose (mg/dL) 245 H (70-110) mg/dL Vitamin B12 (200.0-944.0) pg/mL Assessment and Plan Plan: Acute on chronic congestive heart failure with secondary shortness of breath and acute hypoxic respiratory failure. Patient is currently on 6 L O2 nasal cannula with a pulse IS 96% , oxygenation is stable and the patient is currently off BiPAP Coronary artery disease with previous bypass surgery and multiple coronary interventions. Paroxysmal atrial fibrillation, he is currently in a sinus rhythm with a first- degree AV block. He remains on long-term and coagulation with Eliquis. The patient is currently on a Cardizem drip, metoprolol for rate control. Ischemic cardiomyopathy, EF 30-35% diabetes hypertension hyperlipidemia altered mental status, utilizing a combination of narcotics on an outpatient basis. Chronic pain with a combination of fentanyl patch and oxycodone Left ankle fracture, wearing a splint Acute hyperchloremic hypernatremia Acute kidney injury secondary to cardiorenal factors and diuresis Plan Wean down the FiO2 under 6 L as the patient's pulse ox is adequately maintained Start the patient on D5 water at the rate of 75 an hour Monitor the sodium level and replace the potassium levels Diuretics per cardiology Continue IV Lasix, clinically responding and the patient diuresed nicely Continue diuretics including Aldactone Metoprolol Cardizem drip and oral digitoxin for rate control The antibiotic coverage is empiric. I do not see any signs of an infection. Check a pro-calcitonin level and the patient has been told with IV Zosyn Continue bronchodilators Continue steroids Management of his atrial wheezing fibrillation per cardiology He is a DNR/DNI CODE STATUS Poor prognosis.
[2022-01-10] MEDS ORDERED: Potassium Replacement Protocol 1 EACH MISC MISCELLANE PRN ×2 (14:58→15:30)
[2022-01-10] MEDS ORDERED: Magnesium Replacement Protocol 1 EACH MISC MISCELLANE PRN (14:59)
--- NOTE | 2022-01-10 15:14 | P.PN ---
Subjective Progress Note Date: 01/10/22 Evaluated by multiple consults, recommendations noted. Neuro workup in progress with MRI/EEG pending. Telemetry atrial fibrillation with RVR , amiodarone drip initiated overnight. Lethargic, restless, sensorium mildly improved. Diuresed well on Lasix IV push with 24-hour I&O reflecting a negative fluid balance. Potassium 2.9, BUN 33, creatinine decreased to 1.13 .TSH 0.280, free T4 2.66. T-max 100.8, WBC 12.2. Respiratory status improving, maintaining O2 sats in the 90s on 8 L nasal cannula. 01/10/2022 maintained on digoxin, diltiazem, metoprolol succinate, telemetry atrial fibrillation with RVR. Diuresing well on Lasix IV push with 24-hour I&O reflecting a negative fluid balance, weight decreased by 2.5 kg. less responsive today, restless. Unable to complete EEG yesterday due to his agitation/restlessness. Maintaining O2 sats in the 90s on 6 L high flow nasal cannula. Labs from this morning pending. Maintained on empiric antibiotics of Zosyn, T-max 100.3. Blood sugars elevated, improving. Objective - Vital Signs Vital signs: Vital Signs Temp 98.8 F 01/10/22 08:00 Pulse 116 H 01/10/22 11:56 Resp 22 01/10/22 08:00 BP 173/98 01/10/22 08:00 Pulse Ox 100 01/10/22 11:45 FiO2 50 01/10/22 08:00 Intake & Output 01/09/22 01/10/22 01/10/22 18:59 06:59 18:59 Intake Total 223.417 5 Output Total 2850 1999 Balance -8386 -6048.583 -082 Weight 72 kg Intake: IV 5 Invasive Line 3 5 Intake, IV Titration 223.417 Amount Diltiazem 125 mg In 123.417 Sodium Chloride 0.9% 100 ml @ 5 MG/HR 5 mls/hr IV .Q24H [facility] Rx#:[id number] Piperacillin-Tazobactam 3 100 .375 gm In Sodium Chloride 0.9% 100 ml @ 25 mls/hr IVPB Q8HR [facility] Rx# :[id number] Oral 0 Output: Urine 2850 2000 775 Other: Voiding Method Indwelling Catheter Indwelling Catheter Indwelling Catheter - Exam PHYSICAL EXAM: VITAL SIGNS: As above GENERAL: Alert to person, lying in bed, confused, restless HEENT: Normocephalic , pupils are equal, round,Conjunctivae normal. eyes normal. NECK: Supple,No JVD. CARDIOVASCULAR: S1, S2, Irregular, tachycardic. No murmur, rubs or gallops. RESPIRATION: Equal air entry, Breath sounds diminished in the bilateral bases. No rhonchi or crackles. ABDOMEN: Soft, nontender . No guarding. Positive Bowel sounds. LEGS: Left lower extremity wearing boot. PSYCHIATRY: Alert and oriented X1, confused NERVOUS SYSTEM: Limited evaluation; Diffuse weakness No focal deficits. Strength and sensation grossly intact. Skin: Warm and dry, no rash - Labs CBC & Chem 7: 01/09/22 09:26 01/10/22 09:04 Labs: Abnormal Lab Results - Last 24 Hours (Table) 01/09/22 01/09/22 01/09/22 Range/Units 09:26 16:43 20:01 Sodium (137-145) mmol/L Potassium (3.5-5.1) mmol/L Carbon Dioxide (22-30) mmol/L BUN (9-20) mg/dL Glucose (74-99) mg/dL POC Glucose (mg/dL) 201 H 254 H (70-110) mg/dL Vitamin B12 1289.0 H (200.0-944.0) pg/mL 01/10/22 01/10/22 01/10/22 Range/Units 06:03 09:04 09:59 Sodium 154 H (137-145) mmol/L Potassium 2.8 L (3.5-5.1) mmol/L Carbon Dioxide 32 H (22-30) mmol/L BUN 35 H (9-20) mg/dL Glucose 252 H (74-99) mg/dL POC Glucose (mg/dL) 279 H 269 H (70-110) mg/dL Vitamin B12 (200.0-944.0) pg/mL 01/10/22 Range/Units 11:39 Sodium (137-145) mmol/L Potassium (3.5-5.1) mmol/L Carbon Dioxide (22-30) mmol/L BUN (9-20) mg/dL Glucose (74-99) mg/dL POC Glucose (mg/dL) 245 H (70-110) mg/dL Vitamin B12 (200.0-944.0) pg/mL Assessment and Plan Assessment: Acute on chronic hypoxic, hypercapnic respiratory failure, multifactorial, secondary to acute on chronic CHF, systolic dysfunction. family states patient has been out of medications including his Lasix for weeks, possibly also secondary to home pain medications/opioids and possible aspiration pneumonia. Acute toxic and metabolic encephalopathy secondary to the above, in addition to opioid withdrawal in a patient who had been on heavy opioids outpatient. Paroxysmal atrial fibrillation, currently sinus rhythm with first-degree AV block Acute on chronic CHF systolic dysfunction Ischemic cardiomyopathy, EF 30-35% Chronic pain, follows with a pain management group in [place], "[place] [facility]" as per family. CAD Diabetes mellitus type 2, hyperglycemic, A1c 8.2 Left ankle fracture, present on admission TSH 0.28/free T4 2 0.66, further follow-up outpatient in clinic. Plan: Continue on current medication regime ,monitoring and symptomatic treatment. A.m. Labs pending/electrolyte replacement protocols in place. TSH 0.28/free T4 2 0.66, further follow-up outpatient in clinic. Aggressive pulmonary toileting with nebulized bronchodilators ,steroids, empiric antibiotics. Diuretics and Antiarrhythmics as per cardiology. Hyperglycemic, Levemir insulin further increased, close monitoring of Accu-Cheks. Daughter at bedside, updated ; questions addressed, support given.Prognosis guarded given multiple complex medical issues. The impression and plan of care has been dictated as directed. : I performed a history and examination of this patient, discussed the same with the dictator. I agree with the dictator's note ,documented as a scribe. Any additional findings or plans will be noted.
[2022-01-10 16:46] LABS: Glucose,Whole Blood 355 mg/dL (70-110)
[2022-01-10] MEDS: DEXTROSE 5% IN WATER 1,000 ML IV SCH (16:58)
[2022-01-10] MEDS: POTASSIUM CHLORIDE ER 20 MEQ TAB.ER PO SCH ×3 (16:58→18:59)
[2022-01-10 20:12] LABS: Glucose,Whole Blood 187 mg/dL (70-110)
[2022-01-10] MEDS: ATORVASTATIN 40 MG TAB PO SCH (20:19)
[2022-01-10] MEDS: MIRTAZAPINE 15 MG TAB PO SCH (20:19)
[2022-01-10] MEDS ORDERED: INSULIN DETEMIR (LEVEMIR) 100 UNIT/ML SYR SQ SCH (21:00)
[2022-01-11] MEDS: DEXTROSE 5% IN WATER 1,000 ML IV SCH ×2 (03:55→14:19)
[2022-01-11 06:05] LABS: Glucose,Whole Blood 223 mg/dL (70-110)
[2022-01-11] MEDS: INSULIN ASPART (NovoLOG) 100 UNIT/ML VIAL SQ SCH ×3 (06:17→14:19)
[2022-01-11] MEDS: DILTIAZEM 125 MG in SODIUM CHLORIDE 0.9% 100 ML IV SCH (06:19)
[2022-01-11] MEDS: IPRATROPIUM-ALBUTEROL 3 ML NEB INHALATION SCH ×3 (07:56→15:50)
[2022-01-11] MEDS ORDERED: hydrOXYzine HCL 25 MG TAB PO PRN (09:16)
[2022-01-11] MEDS ORDERED: hydrOXYzine HCL 25 MG TAB PO ONE (09:16)
--- NOTE | 2022-01-11 09:20 | P.PN ---
Subjective Progress Note Date: 01/11/22 Principal diagnosis: Trimalleolar fracture left ankle. Mental status changes. COPD, CHF exacerbations. This is a 66-year-old male who is admitted for COPD, CHF and trimalleolar fracture of the left ankle. Patient is seen and evaluated at bedside today. Patient is a poor historian. Patient's family is present in the room today and denies any new complaints regarding the left ankle. Nursing states that they did change his dressing and blister remains intact and is getting smaller. No signs of infection. Objective - Vital Signs Vital signs: Vital Signs Temp 97.9 F 01/11/22 03:42 Pulse 110 H 01/11/22 08:10 Resp 30 H 01/11/22 03:42 BP 100/72 01/11/22 03:42 Pulse Ox 100 01/11/22 03:42 FiO2 50 01/11/22 04:05 Intake & Output 01/10/22 01/11/22 01/11/22 18:59 06:59 18:59 Intake Total 20 91.167 Output Total 1450 400 Balance -1430 -308.833 Weight 65.5 kg Intake: IV 20 Invasive Line 3 10 Invasive Line 4 10 Intake, IV Titration 91.167 Amount Diltiazem 125 mg In 91.167 Sodium Chloride 0.9% 100 ml @ 5 MG/HR 5 mls/hr IV .Q24H [facility] Rx#:[id number] Oral 0 Output: Urine 1450 400 Other: Voiding Method Indwelling Catheter Indwelling Catheter - Exam This is a 66-year-old male in no acute distress. He continues to be very restless in bed. Family is present at bedside. The boot is intact. There is no swelling to the knee or thigh. The patient is unable to cooperate with the exam. - Labs CBC & Chem 7: 01/09/22 09:26 01/10/22 09:04 Labs: Abnormal Lab Results - Last 24 Hours (Table) 01/10/22 01/10/22 01/10/22 Range/Units 09:04 09:59 11:39 Sodium 154 H (137-145) mmol/L Potassium 2.8 L (3.5-5.1) mmol/L Carbon Dioxide 32 H (22-30) mmol/L BUN 35 H (9-20) mg/dL Glucose 252 H (74-99) mg/dL POC Glucose (mg/dL) 269 H 245 H (70-110) mg/dL 01/10/22 01/10/22 01/11/22 Range/Units 16:42 20:11 06:04 Sodium (137-145) mmol/L Potassium (3.5-5.1) mmol/L Carbon Dioxide (22-30) mmol/L BUN (9-20) mg/dL Glucose (74-99) mg/dL POC Glucose (mg/dL) 355 H 187 H 223 H (70-110) mg/dL Assessment and Plan (1) Acute exacerbation of chronic obstructive pulmonary disease Current Visit: Yes Status: Acute Code(s): J44.1 - CHRONIC OBSTRUCTIVE PULMONARY DISEASE W (ACUTE) EXACERBATION SNOMED Code(s): 258391706 (2) CHF exacerbation Current Visit: Yes Status: Acute Code(s): I50.9 - HEART FAILURE, UNSPECIFIED SNOMED Code(s): 658981410 (3) Trimalleolar fracture of ankle, closed Current Visit: Yes Status: Acute Code(s): S82.853A - DISPLACED TRIMALLEOLAR FRACTURE OF UNSP LOWER LEG, INIT SNOMED Code(s): 3996252 Plan: The clinical and x-ray findings are discussed with the patient and his family. The patient is not a surgical candidate at this time. We will continue to follow peripherally. Continue the boot and daily skin checks.
[2022-01-11 09:37] VITALS: BP 107/61; RESP 18; TEMP 96.8
[2022-01-11] MEDS: PIPERACILLIN-TAZOBACTAM 3.375 GM in SODIUM CHLORIDE 0.9% 100 ML IVPB SCH ×2 (09:51→14:19)
[2022-01-11] MEDS: PANTOPRAZOLE 40 MG/10 ML VIAL IVP SCH (09:51)
[2022-01-11] MEDS: methylPREDNISolone SOD SUCCI 125 MG/2 ML VIAL IV SCH (09:51)
[2022-01-11] MEDS: METOPROLOL SUCCINATE (ER) 100 MG TAB.ER.24H PO SCH (09:52)
[2022-01-11] MEDS: DIGOXIN 125 MCG TAB PO SCH (09:52)
[2022-01-11] MEDS: SPIRONOLACTONE 25 MG TAB PO SCH (09:54)
[2022-01-11] MEDS: ASPIRIN 81 MG PO SCH (09:54)
[2022-01-11] MEDS: APIXABAN 5 MG TAB PO SCH (09:54)
[2022-01-11] MEDS: DULoxetine HCL 60 MG CAPSULE.DR PO SCH (09:54)
[2022-01-11] MEDS: SACUBITRIL/VALSARTAN 24 MG-26 MG TABLET PO SCH (10:21)
[2022-01-11] MEDS: FUROSEMIDE 10 MG/ML 4 ML VIAL IV SCH (10:56)
[2022-01-11] MEDS ORDERED: LORazepam 1 MG/0.5 ML VIAL IV PRN (11:03)
[2022-01-11 11:08] LABS: Anisocytosis Slight; Basophils % (A) 0 %; Eosinophils % (A) 0 %; HCT 50.6 % (39.0-53.0); Hypochromasia Marked; Lymphocytes # (A) 0.5 k/uL (1.0-4.8); Lymphocytes % (A) 4 %; MCH 27.6 pg (25.0-35.0); MCHC 29.7 g/dL (31.0-37.0); MCV 92.8 fL (80.0-100.0); Mean Platelet Volume 8.7; Monocytes % (A) 8 %; Neutrophils # (A) 10.6 k/uL (1.3-7.7); Neutrophils % (A) 86 %; Platelet Count 265 k/uL (150-450); RBC 5.45 m/uL (4.30-5.90); RDW 16.1 % (11.5-15.5); WBC 12.3 k/uL (3.8-10.6)
[2022-01-11 11:23] VITALS: PULSE 123
[2022-01-11 11:33] LABS: Calcium 8.6 mg/dL (8.4-10.2); Magnesium 2.2 mg/dL (1.6-2.3); Potassium 3.8 mmol/L (3.5-5.1)
[2022-01-11 11:50] LABS: Glucose,Whole Blood 331 mg/dL (70-110)
--- NOTE | 2022-01-11 12:22 | P.PN ---
Subjective Progress Note Date: 01/11/22 This is Ellis Henao NP, I'm dictating on behalf of Dr. Caban's H&P and A&P. Patient was interviewed and examined. Patient is a 66-year-old male who presented with somnolence, unresponsiveness, COPD, CHF, and a left trimalleolar fracture. Patient today remains lethargic and barely responsive. He is able to wake up enough and respond to questions with yes or no. His heart rate remains elevated, his blood pressure however is low. He has continued to receive by mouth narcotics. GENERAL: Somnolent and difficult to arouse, well-nourished and in no acute distress. NECK: Supple without JVD or thyromegaly. LUNGS: Breath sounds clear to auscultation bilaterally. Respiration equal and unlabored. No wheezes, rales or rhonchi. HEART: Regular rate elevated and rhythm in A. fib, without murmurs, rubs or gallops. S1 and S2 heard. EXTREMITIES: Normal range of motion, no edema. No clubbing or cyanosis. Peripheral pulses intact and strong. VITALS: Temp 96.8, pulse 118, respirations 18, blood pressure 107/61, O2 saturation 99% on 6 L via nasal cannula TELEMETRY: Atrial fibrillation with rapid ventricular response LABS: White count 12.3, hemoglobin 15, platelets 265, sodium 157, potassium 3.8, B1 76, creatinine 2.77, calcium 8.6, magnesium 2.2 IMPRESSION: Acute on chronic congestive heart failure Mental status changes, secondary to opioid abuse, paroxysmal atrial fibrillation, currently in A. fib with RVR Ischemic cardiomyopathy, last EF 30-35% Suppressed TSH, likely secondary to amiodarone Hypernatremia and hypokalemia, hypokalemia currently resolved History of CAD History of diabetes History of hypertension History of dyslipidemia PLAN: Discontinue Cardizem Continue metoprolol and digoxin as previously ordered Further recommendations based on the patient's clinical course. Objective - Vital Signs Vital signs: Vital Signs Temp 96.8 F L 01/11/22 09:36 Pulse 123 H 01/11/22 11:23 Resp 18 01/11/22 09:36 BP 107/61 01/11/22 09:36 Pulse Ox 99 01/11/22 09:36 FiO2 50 01/11/22 04:05 Intake & Output 01/10/22 01/11/22 01/11/22 18:59 06:59 18:59 Intake Total 20 91.167 822.667 Output Total 1450 400 Balance -1430 -308.833 822.667 Weight 65.5 kg Intake: IV 20 Invasive Line 3 10 Invasive Line 4 10 Intake, IV Titration 91.167 822.667 Amount Dextrose 5% in Water 1, 600 000 ml @ 75 mls/hr IV . [id number] [facility] Rx#:[id number] Diltiazem 125 mg In 91.167 22.667 Sodium Chloride 0.9% 100 ml @ 5 MG/HR 5 mls/hr IV .Q24H [facility] Rx#:[id number] Piperacillin-Tazobactam 3 200 .375 gm In Sodium Chloride 0.9% 100 ml @ 25 mls/hr IVPB Q8HR [facility] Rx# :[id number] Oral 0 0 Output: Urine 1450 400 Other: Voiding Method Indwelling Catheter Indwelling Catheter Indwelling Catheter - Labs CBC & Chem 7: 01/11/22 10:32 01/11/22 10:32 Labs: Abnormal Lab Results - Last 24 Hours (Table) 01/10/22 01/10/22 01/11/22 Range/Units 16:42 20:11 06:04 WBC (3.8-10.6) k/uL MCHC (31.0-37.0) g/dL RDW (11.5-15.5) % Neutrophils # (1.3-7.7) k/uL Lymphocytes # (1.0-4.8) k/uL Sodium (137-145) mmol/L Chloride (98-107) mmol/L BUN (9-20) mg/dL Creatinine (0.66-1.25) mg/dL Glucose (74-99) mg/dL POC Glucose (mg/dL) 355 H 187 H 223 H (70-110) mg/dL 01/11/22 01/11/22 01/11/22 Range/Units 10:32 10:32 11:47 WBC 12.3 H (3.8-10.6) k/uL MCHC 29.7 L (31.0-37.0) g/dL RDW 16.1 H (11.5-15.5) % Neutrophils # 10.6 H (1.3-7.7) k/uL Lymphocytes # 0.5 L (1.0-4.8) k/uL Sodium 157 H (137-145) mmol/L Chloride 112 H (98-107) mmol/L BUN 76 H (9-20) mg/dL Creatinine 2.77 H (0.66-1.25) mg/dL Glucose 352 H (74-99) mg/dL POC Glucose (mg/dL) 331 H (70-110) mg/dL
--- NOTE | 2022-01-11 12:49 | P.PN ---
Subjective Progress Note Date: 01/11/22 This is a 66-year-old patient with known history of coronary artery disease, previous bypass surgery, history of severe cardiomyopathy ischemic in nature with an ejection fraction of 25% with multiple hospitalizations for complications related to his cardiac disease. His last echocardiogram from 09/12/2021 has shown an ejection fraction of 30-35% along with hypokinesis involving the inferobasilar basilar and inferior wall as well as the anteroseptal portion. The cardiac valves were intact. The patient is also known to have chronic active fibrillation, hypertension, diabetes mellitus type 2 and chronic kidney disease. The patient also has issues with chronic pain and chronic opiate use. He was discharged from the hospital on 01/05/2022 after being admitted for CHF exacerbation. The patient was discharged home with guarded prognosis. Cardiology cleared this patient discharged and accordingly was released home. He was discharged home on Lasix 40 units by mouth twice a day and Aldactone 25 mg by mouth as diuretics. The patient's was brought back to the hospital yesterday because of an altered mental status in the fall. He was very much lethargic and disoriented since his discharge. In the ED, the patient was given an EKG that showed a normal sinus mechanism. He had a first degree AV block. His chest x-ray showed some mild interstitial prominence. His proBNP level was quite elevated at 12,200. His white cell count was a complicated with a hemoglobin of 11.3 and a platelet count of 363. He has a BUN of 39 with a creatinine of 1.35 and a magnesium level of 1.7. He was given a blood gas because of worsening shortness of breath. The patient's initial blood gas showed a pH of 7.43 with a pCO2 of 45 and pO2 of 104 and this was on FiO2 of 100%. Subsequently, and a 50% FiO2 and blood gases from today showed a pH of 7.48 with a total 47 and pO2 of 91. A repeat chest x-ray from today shows improvement in the volume status. Patient's currently is on DuoNeb nebulizer treatments [id number], is on Lasix 40 mg IV every 12 hours. He is also on Aldactone 25 mg by mouth daily. He remains on amiodarone 100 mg by mouth daily. Long-term antibiotic irrigation was without a course. The patient is also on metoprolol 100 mg by mouth daily. His also diabetic on 10 units of Levemir insulin and a sliding scale coverage. As far as pain control, he takes oxycodone 50 mg every 8 hours, fentanyl patch 100 g every 72 hours and is also on Cymbalta 60 mg by mouth twice a day. Overnight, the patient was found to be hypoxic and short of breath. Immediately, he was placed on a BiPAP which is currently running at a setting of 14/6 cm of water with an FiO2 50%. I believe the blood gas was somewhat him on a BiPAP and the patient is adequately oxygenating and ventilating for now. 01/09/2022, the patient continues to be altered, lethargic, gets a little answer some simple questions. He remained nature fibrillation. At time of my evaluation, the patient was having a rapid ventricular response along with Atrovent fibrillation. His heart rate monitoring showed that the patient's heart rate has been persistently elevated above 100 as of this morning. He is currently on Cardizem drip at 5 mg an hour. He remains also metoprolol 100 mg by mouth twice a day. He was restarted back on Entresto results on Lasix 40 mg IV every 12 hours. His long-term antiplatelet issues with lupus. The patient is a negative fluid balance of 5.4 L over the past 24 hours. Is currently on 8 L of oxygen nasal cannula with a pulse ox of 96%. His moldable 4 extremities. At times restless and agitated. On 01/10/2022, the patient remains confused and less responsive compared to yesterday. He is resting comfortably in bed. EEG was done yesterday and was not completed as the patient was restless and no useful information was obtained. He remains negative fibrillation with rapid ventricular response. He is currently on Toprol and Cardizem and digoxin. The patient is currently on metoprolol 200 mg by mouth twice a day. Is also on Cardizem drip at 5 mg an hour. Digoxin was also started on 25 g on a daily basis. He is on long-term and ventricular dilation with liquids. He remains on bronchodilators. He remains on systemic steroids. There is also on Lasix 40 mg IV every 12 hours. He is on 6 L of O2 and his pulse ox is 96%. IV fluids is 0.9 and that it is an hour. He remains on IV Zosyn as an empiric antibiotic coverage. 01/11/2022, the patient is confused, lethargic, not communicating. Family is at the bedside. He denies nature fibrillation with rapid ventricular response. Limited recovery since yesterday. Patient to be deeply encephalopathic. He remains on Lasix 40 mg IV every 12 hours. In terms of rate control, the patient remains on metoprolol 100 mg by mouth twice a day, digoxin 125 g by mouth daily and is on long-term anticoagulant with Eliquis. Nevertheless, this point in time, I do not think the patient is going to be able to take his oral medications. He is deeply encephalopathic. Vaccination is stable on 6 L positive from 99%. No significant respiratory distress for now. His blood work from today shows a white cell, 4.3 with a hemoglobin of 15 and a platelet count of 265. Sodium is up to 157 and the patient is currently on D5 water. BUN is 76 with a creatinine of 2.77. Objective - Vital Signs Vital signs: Vital Signs Temp 96.8 F L 01/11/22 09:36 Pulse 123 H 01/11/22 11:23 Resp 18 01/11/22 09:36 BP 107/61 01/11/22 09:36 Pulse Ox 99 01/11/22 09:36 FiO2 50 01/11/22 04:05 Intake & Output 01/10/22 01/11/22 01/11/22 18:59 06:59 18:59 Intake Total 20 91.167 822.667 Output Total 1450 400 Balance -1430 -308.833 822.667 Weight 65.5 kg Intake: IV 20 Invasive Line 3 10 Invasive Line 4 10 Intake, IV Titration 91.167 822.667 Amount Dextrose 5% in Water 1, 600 000 ml @ 75 mls/hr IV . [id number] GABBY Rx#:[id number] Diltiazem 125 mg In 91.167 22.667 Sodium Chloride 0.9% 100 ml @ 5 MG/HR 5 mls/hr IV .Q24H GABBY Rx#:[id number] Piperacillin-Tazobactam 3 200 .375 gm In Sodium Chloride 0.9% 100 ml @ 25 mls/hr IVPB Q8HR G[facility]BY Rx# :[id number] Oral 0 0 Output: Urine 1450 400 Other: Voiding Method Indwelling Catheter Indwelling Catheter Indwelling Catheter - Exam GENERAL EXAM: Alert, very pleasant, 64-year-old male on room air, with pulse ox of 96% on 6 L nasal cannula, restless in bed, encephalopathic. HEAD: Normocephalic/atraumatic. EYES: Normal reaction of pupils, equal size. Conjunctiva pink, sclera white. NOSE: Clear with pink turbinates. THROAT: No erythema or exudates. NECK: No masses, no JVD, no thyroid enlargement, no adenopathy. CHEST: No chest wall deformity. Symmetrical expansion. Midsternal incision well approximated, with some drainage at the distal and which is mostly serous in nature, chest tube sites clean dry and intact LUNGS: Equal air entry with no crackles, wheeze, rhonchi or dullness. CVS: Irregular with rapid ventricular response consistent with atrial fibrillation, normal S1 and S2, no gallops, no murmurs, no rubs ABDOMEN: Soft, nontender. No hepatosplenomegaly, normal bowel sounds, no guarding or rigidity. EXTREMITIES: No clubbing, no edema, no cyanosis, 2+ pulses and upper and lower extremities. MUSCULOSKELETAL: Muscle strength and tone normal. SPINE: No scoliosis or deformity SKIN: No rashes CENTRAL NERVOUS SYSTEM: Profoundly weak, encephalopathic, unable to communicate. Moving all 4 extremities. - Labs CBC & Chem 7: 01/11/22 10:32 01/11/22 10:32 Labs: Abnormal Lab Results - Last 24 Hours (Table) 01/10/22 01/10/22 01/11/22 Range/Units 16:42 20:11 06:04 WBC (3.8-10.6) k/uL MCHC (31.0-37.0) g/dL RDW (11.5-15.5) % Neutrophils # (1.3-7.7) k/uL Lymphocytes # (1.0-4.8) k/uL Sodium (137-145) mmol/L Chloride (98-107) mmol/L BUN (9-20) mg/dL Creatinine (0.66-1.25) mg/dL Glucose (74-99) mg/dL POC Glucose (mg/dL) 355 H 187 H 223 H (70-110) mg/dL 01/11/22 01/11/22 01/11/22 Range/Units 10:32 10:32 11:47 WBC 12.3 H (3.8-10.6) k/uL MCHC 29.7 L (31.0-37.0) g/dL RDW 16.1 H (11.5-15.5) % Neutrophils # 10.6 H (1.3-7.7) k/uL Lymphocytes # 0.5 L (1.0-4.8) k/uL Sodium 157 H (137-145) mmol/L Chloride 112 H (98-107) mmol/L BUN 76 H (9-20) mg/dL Creatinine 2.77 H (0.66-1.25) mg/dL Glucose 352 H (74-99) mg/dL POC Glucose (mg/dL) 331 H (70-110) mg/dL Assessment and Plan Plan: Acute on chronic congestive heart failure with secondary shortness of breath and acute hypoxic respiratory failure. Patient is currently on 6 L O2 nasal cannula with a pulse IS 96% , oxygenation is stable and the patient is currently off BiPAP Coronary artery disease with previous bypass surgery and multiple coronary interventions. Persistent ongoing atrial fibrillation Ischemic cardiomyopathy, EF 30-35% Encephalopathy with secondary altered mentation diabetes hypertension hyperlipidemia altered mental status, utilizing a combination of narcotics on an outpatient basis. Chronic pain with a combination of fentanyl patch and oxycodone Left ankle fracture, wearing a splint Acute hyperchloremic hypernatremia Acute kidney injury secondary to cardiorenal factors and diuresis, with interval worsening of the renal function and elevation of the BUN and creatinine and the sodium level. Plan Extremities poor prognosis and the patient carries a very poor outcome Suggest holding the Lasix for now Suggested water deficit and the patient is currently on D5 water at the rate of 75 mL an hour Keep nothing by mouth for now Wean down the FiO2 under 6 L as the patient's pulse ox is adequately maintained The antibiotic coverage is empiric. I do not see any signs of an infection. Check a pro-calcitonin level and the patient has been told with IV Zosyn Continue bronchodilators Continue steroids Management of his atrial wheezing fibrillation per cardiology He is a DNR/DNI CODE STATUS Poor prognosis.
[2022-01-11] MEDS ORDERED: methylPREDNISolone SOD SUCCI 40 MG/ML 1 ML VIAL IV SCH (16:00)
--- NOTE | 2022-01-14 13:08 | CDI ---
Documentation Clarification Form Date: 01/14/2022 01:04:48 PM From: Radha Bynum RN, CCDS Email: [email or web address] Admit Date: 01/08/2022 11:49:00 AM Patient Name: Ashok Austin Visit Number: [id number] Discharge Date: 01/11/2022 06:43:00 PM ATTENTION: The Clinical Documentation Specialists (CDI) and [facility] Coding Staff appreciate your assistance in clarifying documentation. Please respond to the clarification below the line at the bottom and electronically sign. The CDI & [facility] Coding staff will review the response and follow-up if needed. Please note: Queries are made part of the Legal Health Record. If you have any questions, please contact the author of this message via ITS. Dr. Puma Lovell Possible aspiration pneumonia is documented on 01/10 but is not noted in subsequent documentation. Clarification is requested. History/Risk Factors: CAD, ischemic cardiomyopathy, paroxysmal AF, T2DM, chronic pain with opiate, recently admitted and discharged on January 05 for CHF exacerbation, brought into the ER via EMS with mental status changes, dyspnea, respiratory failure, hypertension, multiple falls, left anterior ankle injury- Tri malleolar. Clinical Indicators: H&P: "During the night developed worsening respiratory status became hypoxic with shallow breathing and was placed on BiPAP." 01/11 WBC 12.3, 01/08 procalcitonin 5.71 01/08 temp 101.4, 01/09 HR high of 167 (Afib), 01/07 RR 30 01/07 CXR: Correlate for mild venous congestion or interstitial pneumonitis 01/07 CXR: Increased pulmonary interstitial density compared to exam this morning and could be mild interstitial pneumonia. 01/09 Neurology consult: "His daughter felt that around 01/07/2022 the patient was confused and was slurring his speech and concerned about a stroke." 01/11 Pulmonary: "He remains on IV Zosyn as an empiric antibiotic coverage." Treatment: IV Zosyn 3.375gm Q8H 01/08-01/11, supplemental O2/bipap, duonebs Please clarify: [ ] Aspiration pneumonia ruled in [ ] Aspiration pneumonia ruled out [ ] Other condition, please specify [ ] Unable to determine Aspiration pneumonia ruled in MTDD
--- NOTE | 2022-01-22 11:32 | P.DS ---
Providers Date of admission: 01/08/22 11:49 Expected date of discharge: 01/11/22 Attending physician: Puma Lovell MD Consults: 01/07/22 12:52 Consult Physician Routine Consulting Provider: Serge Askew Consult Reason/Comments: Trimalleolar fracture left ankle Do you want consulting provider notified?: Yes Consult Physician Routine Consulting Provider: Travis Caban Consult Reason/Comments: CHF Do you want consulting provider notified?: Yes 01/07/22 19:24 Consult Physician Routine Consulting Provider: Taco Iglesias Consult Reason/Comments: COPD, respiratory failure Do you want consulting provider notified?: Yes 01/08/22 14:05 Consult Physician Routine Consulting Provider: Harriet Cruz Consult Reason/Comments: stroke symptoms that began on 01/07 Do you want consulting provider notified?: Yes Primary care physician: Puma Lovell MD Hospital Course: Discharge diagnosis Acute on chronic CHF with systolic dysfunction and ischemic cardiomyopathy Acute metabolic encephalopathy Acute hypoxic respiratory failure requiring 6 L oxygen via nasal cannula and was on BiPAP previously left ankle fracture wearing a splint Acute kidney injury likely cardiorenal and diuresis. Coronary artery disease history of stent placement Diabetes type 2 with hyperglycemia Hypernatremia due to dehydration and volume depletion History of chronic pain and was on fentanyl patch and oxycodone DVT prophylaxis patient is already on [facility] Hospital course This is a 66-year-old patient with known history of coronary artery disease, previous bypass surgery, history of severe cardiomyopathy ischemic in nature with an ejection fraction of 25% with multiple hospitalizations for complications related to his cardiac disease. His last echocardiogram from 09/12/2021 has shown an ejection fraction of 30-35% along with hypokinesis involving the inferobasilar basilar and inferior wall as well as the anteroseptal portion. The cardiac valves were intact. The patient is also known to have chronic active fibrillation, hypertension, diabetes mellitus type 2 and chronic kidney disease. The patient also has issues with chronic pain and chronic opiate use. He was discharged from the hospital on 01/05/2022 after being admitted for CHF exacerbation. The patient was discharged home with guarded prognosis. Cardiology cleared this patient discharged and accordingly was released home. He was discharged home on Lasix 40 units by mouth twice a day and Aldactone 25 mg by mouth as diuretics. The patient's was brought back to the hospital yesterday because of an altered mental status in the fall. 01/10/2022 maintained on digoxin, diltiazem, metoprolol succinate, telemetry atrial fibrillation with RVR. Diuresing well on Lasix IV push with 24-hour I&O reflecting a negative fluid balance, weight decreased by 2.5 kg. less responsive today, restless. Unable to complete EEG yesterday due to his agitation/restlessness. Maintaining O2 sats in the 90s on 6 L high flow nasal cannula. Labs from this morning pending. Maintained on empiric antibiotics of Zosyn, T-max 100.3. Blood sugars elevated, improving.\ 01/11/2022 Patient is confused and lethargic and not communicating today. Encephalopathy. Family is at bedside. Otherwise patient remains in atrial fibrillation. Continued on IV Lasix 40 mg twice daily and is also on metoprolol and his oxygen and anticoagulation with that exam. Patient is not able to take any oral intake. Currently requiring oxygen at 6 L via nasal cannula high flow. Laboratory data showed no illicit 12.3 hemoglobin 13.0 and platelets 265 Sodium 157 potassium 3.8 chloride 102 bicarb is 24 BUN 76 and creatinine 2.77 and blood sugar is 352. Patient is being continued on D5 water due to hypernatremia. Pulmonary and nephrology is on board. Due to poor prognosis discussed with family detail. Family would like to be transferred to hospice care. Patient on 01/11/2022 at 14:00. Family is at bedside has been notified. Patient Condition at Discharge: Undetermined Plan - Discharge Summary Discharge Rx Participant: No New Discharge Prescriptions: Discontinued Amiodarone [Cordarone] 100 mg PO DAILY #30 tab No Action DULoxetine HCL [Cymbalta] 60 mg PO BID oxyCODONE HCL [oxyCODONE HCL (IR)] 15 mg PO Q8H Aspirin 81 mg PO DAILY #30 chew Apixaban [Eliquis] 5 mg PO BID #60 tab Atorvastatin [Lipitor] 40 mg PO HS Gabapentin 600 mg PO TID Sacubitril/Valsartan [Entresto 49 mg-51 mg Tablet] 1 tab PO DAILY Insulin Aspart [NovoLOG Flexpen] 10 units SQ AC-BID Furosemide [Lasix] 40 mg PO BID@0900,1600 #60 tab metFORMIN HCL [Glucophage] 1,000 mg PO BID Albuterol Sulfate [Albuterol Sulfate Hfa] 2 puff INHALATION RT-QID PRN PRN Reason: Shortness Of Breath fentaNYL 100MCG/HR PATCH [Duragesic 100MCG/HR] 1 patch TRANSDERM Q72H methocarbamoL [Robaxin-750] 750 mg PO TID Insulin Glargine,Hum.rec.anlog [Basaglar Kwikpen U-100] 25 unit SQ HS Pantoprazole Sodium [Protonix] 40 mg PO DAILY Metoprolol Succinate (ER) [Toprol XL] 100 mg PO DAILY Mirtazapine 15 mg PO HS Spironolactone [Aldactone] 25 mg PO DAILY #30 tab Discharge Medication List DULoxetine HCL [Cymbalta] 60 mg PO BID 11/16/19 [History] oxyCODONE HCL [oxyCODONE HCL (IR)] 15 mg PO Q8H 03/01/20 [History] Aspirin 81 mg PO DAILY #30 chew 04/10/20 [Rx] Apixaban [Eliquis] 5 mg PO BID #60 tab 10/02/20 [Rx] Atorvastatin [Lipitor] 40 mg PO HS 01/31/21 [History] metFORMIN HCL [Glucophage] 1,000 mg PO BID 01/31/21 [History] Albuterol Sulfate [Albuterol Sulfate Hfa] 2 puff INHALATION RT-QID PRN 05/08/21 [History] Gabapentin 600 mg PO TID 09/11/21 [History] Insulin Glargine,Hum.rec.anlog [Basaglar Kwikpen U-100] 25 unit SQ HS 09/11/21 [History] Pantoprazole Sodium [Protonix] 40 mg PO DAILY 09/11/21 [History] fentaNYL 100MCG/HR PATCH [Duragesic 100MCG/HR] 1 patch TRANSDERM Q72H 09/11/21 [History] methocarbamoL [Robaxin-750] 750 mg PO TID 09/11/21 [History] Sacubitril/Valsartan [Entresto 49 mg-51 mg Tablet] 1 tab PO DAILY 10/11/21 [History] Insulin Aspart [NovoLOG Flexpen] 10 units SQ AC-BID 01/03/22 [History] Metoprolol Succinate (ER) [Toprol XL] 100 mg PO DAILY 01/03/22 [History] Mirtazapine 15 mg PO HS 01/03/22 [History] Furosemide [Lasix] 40 mg PO BID@0900,1600 #60 tab 01/05/22 [Rx] Spironolactone [Aldactone] 25 mg PO DAILY #30 tab 01/05/22 [Rx] Follow up Appointment(s)/Referral(s): Puma Lovell MD [Primary Care Provider] - 1-2 days Discharge Disposition: - Preliminary Cause of Preliminary Cause of : Acute hypoxicfailure secondary to acute on chronic CHF
--- NOTE | 2022-01-22 11:40 | P.PN ---
Subjective Progress Note Date: 01/11/22 This is a 66-year-old patient with known history of coronary artery disease, previous bypass surgery, history of severe cardiomyopathy ischemic in nature with an ejection fraction of 25% with multiple hospitalizations for complications related to his cardiac disease. His last echocardiogram from 09/12/2021 has shown an ejection fraction of 30-35% along with hypokinesis involving the inferobasilar basilar and inferior wall as well as the anteroseptal portion. The cardiac valves were intact. The patient is also known to have chronic active fibrillation, hypertension, diabetes mellitus type 2 and chronic kidney disease. The patient also has issues with chronic pain and chronic opiate use. He was discharged from the hospital on 01/05/2022 after being admitted for CHF exacerbation. The patient was discharged home with guarded prognosis. Cardiology cleared this patient discharged and accordingly was released home. He was discharged home on Lasix 40 units by mouth twice a day and Aldactone 25 mg by mouth as diuretics. The patient's was brought back to the hospital yesterday because of an altered mental status in the fall. 01/10/2022 maintained on digoxin, diltiazem, metoprolol succinate, telemetry atrial fibrillation with RVR. Diuresing well on Lasix IV push with 24-hour I&O reflecting a negative fluid balance, weight decreased by 2.5 kg. less responsive today, restless. Unable to complete EEG yesterday due to his agitation/restlessness. Maintaining O2 sats in the 90s on 6 L high flow nasal cannula. Labs from this morning pending. Maintained on empiric antibiotics of Zosyn, T-max 100.3. Blood sugars elevated, improving.\ 01/11/2022 Patient is confused and lethargic and not communicating today. Encephalopathy. Family is at bedside. Otherwise patient remains in atrial fibrillation. Continued on IV Lasix 40 mg twice daily and is also on metoprolol and his oxygen and anticoagulation with that exam. Patient is not able to take any oral intake. Currently requiring oxygen at 6 L via nasal cannula high flow. Laboratory data showed no illicit 12.3 hemoglobin 13.0 and platelets 265 Sodium 157 potassium 3.8 chloride 102 bicarb is 24 BUN 76 and creatinine 2.77 and blood sugar is 352. Patient is being continued on D5 water due to hypernatremia. Pulmonary and nephrology is on board. Current medications reviewed. Objective - Vital Signs Vital signs: Vital Signs Temp 96.8 F L 01/11/22 09:36 Pulse 118 H 01/11/22 09:36 Resp 18 01/11/22 09:36 BP 107/61 01/11/22 09:36 Pulse Ox 99 01/11/22 09:36 FiO2 50 01/11/22 04:05 Intake & Output 01/10/22 01/11/22 01/11/22 18:59 06:59 18:59 Intake Total 20 91.167 822.667 Output Total 1450 400 Balance -1430 -308.833 822.667 Weight 65.5 kg Intake: IV 20 Invasive Line 3 10 Invasive Line 4 10 Intake, IV Titration 91.167 822.667 Amount Dextrose 5% in Water 1, 600 000 ml @ 75 mls/hr IV . [id number] [facility] Rx#:[id number] Diltiazem 125 mg In 91.167 22.667 Sodium Chloride 0.9% 100 ml @ 5 MG/HR 5 mls/hr IV .Q24H [facility] Rx#:[id number] Piperacillin-Tazobactam 3 200 .375 gm In Sodium Chloride 0.9% 100 ml @ 25 mls/hr IVPB Q8HR [facility] Rx# :[id number] Oral 0 0 Output: Urine 1450 400 Other: Voiding Method Indwelling Catheter Indwelling Catheter Indwelling Catheter - Exam PHYSICAL EXAMINATION: Patient is lying in the bed currently disoriented and awake alert oriented 0. Lethargic and encephalopathic. HEENT: Normocephalic. Neck is supple. Pupils reactive. Nostrils clear. Oral cavity is moist. Neck reveals no JVD, carotid bruits, or thyromegaly. CHEST EXAMINATION: Trachea is central. Symmetrical expansion. Bibasilar diminished sounds and basilar crackles and coarse sounds.. CARDIAC: Normal S1, S2 with no gallops. No murmurs ABDOMEN: Soft. Bowel sounds normal. No organomegaly. No abdominal bruits. Extremities: reveal no edema. No clubbing or cyanosis Neurologically patient is lethargic and obtunded.. No gross focal deficits noted Skin: No rash or skin lesions. Psychiatric: Could not be assessed this time. Musculoskeletal: No joint swelling or deformity. - Labs CBC & Chem 7: 01/11/22 10:32 01/11/22 10:32 Labs: Abnormal Lab Results - Last 24 Hours (Table) 01/10/22 01/10/22 01/10/22 Range/Units 11:39 16:42 20:11 POC Glucose (mg/dL) 245 H 355 H 187 H (70-110) mg/dL 01/11/22 Range/Units 06:04 POC Glucose (mg/dL) 223 H (70-110) mg/dL Assessment and Plan Assessment: Acute on chronic CHF with systolic dysfunction and ischemic cardiomyopathy Acute metabolic encephalopathy Acute hypoxic respiratory failure requiring 6 L oxygen via nasal cannula and was on BiPAP previously left ankle fracture wearing a splint Acute kidney injury likely cardiorenal and diuresis. Coronary artery disease history of stent placement Diabetes type 2 with hyperglycemia Hypernatremia due to dehydration and volume depletion History of chronic pain and was on fentanyl patch and oxycodone DVT prophylaxis patient is already on Arixtra Plan: Patient is being admitted on telemetry monitoring. Currently lethargic and encephalopathic. Continued on IV hydration with D5 water due to hypernatremia. Lasix is on hold. Heart rate is controlled better controlled. Continue with metoprolol and digoxin as per cardiology recommendations. Patient is requiring 6 let's oxygen via nasal cannula. Patient is nothing by mouth currently. Also antibiotics in the form of Zosyn which is on hold. Pro-calcitonin level was ordered. Continue with insulin sliding scale and insulin regimen. Follow closely. Prognosis is poor at this time. Discussed with family at bedside in detail. Time with Patient: Greater than 30
== END 2022-01-11 18:43 | disposition expired | DRG 562 ==
LOC: EC 10:26 → 3SCARD 13:03 → OBSVTOIN 01-08 11:49
PROVIDERS: ADMIT Family Medicine; ATTEND Family Medicine
PROC: 3E0F7SF Introduction of Other Gas into Respiratory Tract, Via Natural or Artificial Opening (ICD-10-PCS; principal; 2022-01-08)
PROC: 05HA33Z Insertion of Infusion Device into Left Brachial Vein, Percutaneous Approach (ICD-10-PCS; 2022-01-08)
PROC: 5A09357 Assistance with Respiratory Ventilation, Less than 24 Consecutive Hours, Continuous Positive Airway Pressure (ICD-10-PCS; 2022-01-08)
DX: S82.852A Displaced trimalleolar fracture of left lower leg, initial encounter for closed fracture (principal); G92.8 Other toxic encephalopathy; I50.23 Acute on chronic systolic (congestive) heart failure; J96.21 Acute and chronic respiratory failure with hypoxia; J96.22 Acute and chronic respiratory failure with hypercapnia; J69.0 Pneumonitis due to inhalation of food and vomit; E87.0 Hyperosmolality and hypernatremia; F11.23 Opioid dependence with withdrawal; J44.1 Chronic obstructive pulmonary disease with (acute) exacerbation; N17.9 Acute kidney failure, unspecified; I13.0 Hypertensive heart and chronic kidney disease with heart failure and stage 1 through stage 4 chronic kidney disease, or unspecified chronic kidney disease; I25.10 Atherosclerotic heart disease of native coronary artery without angina pectoris; I44.0 Atrioventricular block, first degree; E05.90 Thyrotoxicosis, unspecified without thyrotoxic crisis or storm; T46.2X5A Adverse effect of other antidysrhythmic drugs, initial encounter; E11.65 Type 2 diabetes mellitus with hyperglycemia; E78.5 Hyperlipidemia, unspecified; N18.9 Chronic kidney disease, unspecified; E11.22 Type 2 diabetes mellitus with diabetic chronic kidney disease; Z66 Do not resuscitate; I48.0 Paroxysmal atrial fibrillation; J84.89 Other specified interstitial pulmonary diseases; S81.012A Laceration without foreign body, left knee, initial encounter; E87.6 Hypokalemia; G89.29 Other chronic pain; I11.0 Hypertensive heart disease with heart failure; I25.2 Old myocardial infarction; I25.5 Ischemic cardiomyopathy; X58.XXXA Exposure to other specified factors, initial encounter; R29.6 Repeated falls; Z79.01 Long term (current) use of anticoagulants; Z79.2 Long term (current) use of antibiotics; Z79.4 Long term (current) use of insulin; Z79.82 Long term (current) use of aspirin; Z79.84 Long term (current) use of oral hypoglycemic drugs; Z79.899 Other long term (current) drug therapy; Z87.891 Personal history of nicotine dependence; Z91.81 History of falling; Z95.1 Presence of aortocoronary bypass graft; Z95.5 Presence of coronary angioplasty implant and graft
CPT/HCPCS: 36410; 36415; 36600; 70450; 71045; 71046; 76937; 80048; 80053; 82140; 82607; 82746; 82805; 83036; 83735; 83880; 84145; 84439; 84443; 84484; 85025; 85027; 85610; 85730; 93005; 93880; 94640; 94660; 94760; 96374; 96375; 96376; 99285